=== PATIENT | female | born 1995 | race Caucasian/White ===

== ENCOUNTER 2022-02-16 13:32 | Outpatient (CLI) | payer BC, OTHER, SELFPAY ==
[2022-02-16 15:11] LABS: Albumin* 3.5 g/dL (3.3-5.0)
[2022-02-16 15:14] LABS: Alanine Aminotransferase* 21 U/L (4-35); Alkaline Phosphatase* 95 U/L (40-150); Aspartate Amino Transferase* 18 U/L (12-35); Bilirubin Direct* 0.3 mg/dL (0.0-0.5); Bilirubin Total* 0.3 mg/dL (0.1-1.5)
[2022-02-16 15:25] LABS: Total Protein Urine < 5 mg/dL
[2022-02-16 15:26] LABS: Creatinine Urine 203.8 mg/dL
== END 2022-02-16 13:33 | disposition home or self-care (01) ==
LOC: NFLDREF 13:33
PROVIDERS: Visit Provider Physician Assistant
DX: Z34.90 Encounter for supervision of normal pregnancy, unspecified, unspecified trimester (principal); Z87.59 Personal history of other complications of pregnancy, childbirth and the puerperium
CPT/HCPCS: 80076; 84156

== ENCOUNTER 2022-03-08 10:43 | Outpatient (CLI) | payer BC, OTHER, SELFPAY ==
[2022-03-10 11:01] LABS: Dating Ultrasound; Family Hx Neural Tube Defect No; Gestati Age Calc at Collection 16 wks, 3 days; Insulin Req Maternal Diabetes No; Maternal Age At Delivery 27.6 yr; Maternal Race Nonblack; Maternal Screen Interpretation Screen Neg; MoM for AFP 1.44; Number of Fetuses Singleton; Patient's AFP 36 ng/mL; Patient's DIA 102 pg/mL; Smoking No
== END 2022-03-08 10:44 | disposition home or self-care (01) ==
LOC: NFLDREF 10:44
PROVIDERS: Visit Provider Obstetrics & Gynecology
DX: Z34.92 Encounter for supervision of normal pregnancy, unspecified, second trimester (principal); Z3A.16 16 weeks gestation of pregnancy
CPT/HCPCS: 81511

== ENCOUNTER 2022-04-07 13:10 | Outpatient (CLI) | payer BC, OTHER, SELFPAY ==
--- OUTSIDE RECORDS SUMMARY | 2022-04-07 13:13 | XMS_ITS | Encounter Summary ---
:1995 Author Organization [facility] Address [address] [place] [id number] Care Team Providers Name Role Phone Ary Purcell P.A.-C., P.A. Primary Care Provider Unavaila ble Reason for Visit Reason Comments Post Ed Visit Follow-up ED visit last night. Still h aving troubles breathing. Outpatient (Routine) - Closed Specialty Diagnoses / Procedures Referred By Contact Refer red To Contact Emergency Medicine Diagnoses Asthma Extrinsic With Acute Exacerbation (HCC) [facility] [address] [place] [phone] Referral ID Status Reason Start Date Expiration Date Visits Requ ested Visits Authorized [id number] Closed 09/08/2020 09/08/2021 1 1 Encounter Details Date Type Department Care Team Description 09/09/2020 Office Visit Department of Family Ary Purcell Ast hma Extrinsic With Acute Exacerbation (HCC) (Primary Dx); [facility], Chunk[facility] [address] [phone] Social History Tobacco Use Types Packs/Day Years Used Date Smoking Tobacco: Former Cigarettes 0.8 7 Quit : 01/31/2018 Smokeless Tobacco: Never Alcohol Use Standard Drinks/Week Comments Yes 2 (1 standard drink = 0.6 oz pure alcoho l) Alcohol Habits Answer Date Recorded How often do you have a drink containing alcohol? 2-4 times a month 10/23/2020 How many drinks containing alcohol do you have on a 3 or 4 10/23/2020 typical day when you are drinking? How often do you have six or more drinks on one Less than mo nthly 03/02/2019 occasion? Comment: Not asked Social Isolation Answer Date Recorded In a typical week, how many times do you talk on Twice a wee k 10/23/2020 the phone with family, friends, or neighbors? How often do you get together with friends or Once a week 10/23/2020 relatives? How often do you attend mormonism or christian Never 10/23/2020 services? Do you belong to any clubs or organizations such as No 12/04/2019 mormonism groups, unions, fraternal or athletic groups, or school groups? How often do you attend meetings of the clubs or Patient ref used 12/04/2019 organizations you belong to? Are you now , , , , Living wi partner 03/02/2019 never or living with a partner? Physical Activity Answer Date Recorded On average, how many days per week do you engage in moderate to 4 days 12/04/2019 strenuous exercise (like walking fast, running, jogging, dancing, swimming, biking, or other activities that cause a light or heavy sweat)? On average, how many minutes do you engage in exercise at is 40 min 12/04/2019 level? Stress Answer Date Recorded Do you feel stress - tense, restless, nervous, or anxious, R ather much 10/23/2020 or unable to sleep at night because your mind is troubled all the time - these days? Financial Resource Strain Answer Date Recorded How hard is it for you to pay for the very basics like Not h eden at all 10/23/2020 food, housing, medical care, and heating? Intimate Partner Violence Answer Date Recorded Within the last year, have you been afraid of your partner o r No 12/04/2019 ex-partner? Within the last year, have you been humiliated or emotionall y No 12/04/2019 abused in other ways by your partner or ex-partner? Within the last year, have you been kicked, hit, slapped, or No 12/04/2019 otherwise physically hurt by your partner or ex-partner? Within the last year, have you been raped or forced to have any No 12/04/2019 kind of sexual activity by your partner or ex-partner? Food Insecurity Answer Date Recorded Within the past 12 months, you worried that your food would Never true 03/02/2019 run out before you got money to buy more. Within the past 12 months, the food you bought just didn't N ever true 03/02/2019 last and you didn't have money to get more. Transportation Needs Answer Date Recorded In the past 12 months, has lack of transportation kept you f rom No 03/02/2019 medical appointments or from getting medications? In the past 12 months, has lack of transportation kept you f rom No 03/02/2019 meetings, work, or getting things needed for daily living? Education Answer Date Recorded What is the highest level of school Associate degree: [employer], 03/01/2019 you have completed or the highest technical, or vocational p chitra degree you have received? 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 documented as of this encounter Last Filed Vital Signs Vital Sign Reading Time Taken Comments Blood Pressure 132/81 09/09/2020 10:01 AM MILLING PLANER OPERATOR Pulse 98 09/09/2020 10:01 AM MILLING PLANER OPERATOR Temperature 36.6 ??C (97.9 ??F) 09/09/2020 10:01 AM MILLING PLANER OPERATOR Respiratory Rate 28 09/09/2020 10:01 AM MILLING PLANER OPERATOR Oxygen Saturation 93% 09/09/2020 10:01 AM MILLING PLANER OPERATOR Inhaled Oxygen Concentration - - Weight 118 kg (260 lb 12.9 oz) 09/09/2020 10:01 AM MILLING PLANER OPERATOR Height - - Body Mass Index 42.09 02/20/2019 1:57 PM CDT documented in this encounter Progress Notes Ary Purcell, P.A. 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 Still having troubles breathing. ). HISTORY OF PRESENT ILLNESS Carly is a very pleasant 25-year-old female who presents today for post ER follow-up after asthmaexacerbation. She has been struggling with worsening asthma symptoms for the last 4 weeks. We did try a prednisone burst for 5 days and she felt significantly better after this. Unfortunately, last Tuesday her breathing worsened again. She continues with wheezing and shortness of breath. She was seen in the ER yesterday and provided with IV Decadron, albuterol nebulizer and prescribed steroid inhaler.Today, she is feeling slightly better, but she did have a rough evening. She did require use of her albuterol nebulizer overnight. Her O2 saturations at home were between 90-94%. Denies any fever, chills or cough. No chest pain, but does endorse chest tightness. REVIEW OF SYSTEMS A brief review of systems was negative except for that mentioned in the history of present of illness. CURRENT MEDICATIONS Current Outpatient Medications Medication Sig ??? albuterol (ACCUNEB) 2.5 mg /3 mL nebulizer solution Take 3 mL (2.5 mg total) by nebulization every 4 (four) hours as needed for wheezing. ??? albuterol inhaler Inhale 2 puffs every 4 (four) hours as needed for wheezing. ??? escitalopram (Lexapro) 20 mg tablet Take one tablet by mouth daily. ??? fluticasone (for_FLONASE) 50 mcg/actuation nasal spray Administer 2 sprays into affected nostril(s) 2 (two) times a day as needed. ??? levonorgestrel-ethinyl estradiol (Jolessa) 0.15-mg-30 mcg per tablet Take 1 tablet by mouth daily. ??? metroNIDAZOLE (ROSADAN) 0.75 % gel Apply twice daily to perioral dermatitis for 2-3 months. ??? fluticasone propionate (FLOVENT HFA) 220 mcg/actuation inhaler Inhale 2 puffs 2 (two) times a day. Rinse mouth with water after use to reduce aftertaste and incidence of candidiasis. Do not swallow. ??? montelukast (SINGULAIR) 10 mg tablet Take 1 tablet (10 mg total) by mouth at bedtime. ??? predniSONE (DELTASONE) 20 mg tablet Take 2 tablets (40 mg total) by mouth daily. ALLERGIES/CONTRAINDICATIONS Allergies Allergen Reactions ??? Cefixime Other (see comments) Unknown reaction as a child OBJECTIVE PHYSICAL EXAMINATION Vital Signs: BP 132/81 (BP Location: Left arm, Patient Position: Sitting, Cuff Size: Large) Pulse 98 Temp 36.6 ??C (Temporal) Resp (!) 28 Wt 118 kg LMP 09/01/2020 (Exact Date) SpO2 93% No BMI 42.09 kg/m?? Body mass index is 42.09 kg/m??. General: This patient is alert and in no acute distress. HEENT: Pupils are PERRLA, conjunctivae clear without hemorrhages or exudates. Respiratory: Effort is moderately labored, wheezes bilaterally, without crackles. Cardiovascular: S1 and S2 are present, normal rate and rhythm. Extremities: No lower extremity edema. Psych: Behavior, mood, affect, cognition and insight are all appropriate. DIAGNOSTICS Results for orders placed or performed during the hospital encounter of 09/08/20 CBC with Differential, Blood Result Value Ref Range Hemoglobin 13.8 11.6 - 15.0 g/dL Hematocrit 40.5 35.5 - 44.9 % Erythrocytes 4.39 3.92 - 5.13 x10(12)/L MCV 92.3 78.2 - 97.9 fL RBC Distrib Width 12.7 12.2 - 16.1 % Platelet Count 233 157 - 371 x10(9)/L Leukocytes 9.2 3.4 - 9.6 x10(9)/L Neutrophils 6.26 1.56 - 6.45 x10(9)/L Lymphocytes 2.03 0.95 - 3.07 x10(9)/L Monocytes 0.48 0.26 - 0.81 x10(9)/L Eosinophils 0.36 0.03 - 0.48 x10(9)/L Basophils 0.03 0.01 - 0.08 x10(9)/L Comprehensive Metabolic Panel Result Value Ref Range Potassium, P 3.9 3.6 - 5.2 mmol/L Sodium, P 139 135 - 145 mmol/L Chloride, P 104 98 - 107 mmol/L Bicarbonate, P 23 22 - 29 mmol/L Anion Gap, P 12 7 - 15 BUN, P 12 6 - 21 mg/dL Creatinine, P 0.77 0.59 - 1.04 mg/dL eGFR Black >90 >=60 mL/min/BSA eGFR Non-Black >90 >=60 mL/min/BSA Calcium, Total, P 9.6 8.6 - 10.0 mg/dL Glucose, P 101 70 - 140 mg/dL Protein, Total, P 6.8 6.3 - 7.9 g/dL Albumin, P 4.0 3.5 - 5.0 g/dL Aspartate Aminotransferase (AST), P 34 8 - 43 U/L Alkaline Phosphatase, P 103 35 - 104 U/L Alanine Aminotransferase (ALT), P 63 (H) 7 - 45 U/L Bilirubin, Total, P 0.3 <=1.2 mg/dL ASSESSMENT / PLAN 1. Asthma Extrinsic With Acute Exacerbation (HCC) Sent in a new steroid inhaler prescription, will increase her oral steroid to a 10 day course of 40 mg daily, and also prescribed singular once daily. She did take this as a child which was helpful. Continue with albuterol inhalers and or nebulizers as needed. Follow up in clinic if symptoms are not improving, sooner in the emergency department if symptoms are worsening. She will be monitoring her pulse ox at home as well. - POST ED VISIT Family Medicine 2. Dyspnea Low likelihood of blood clot, but she is on control pills. Will obtain a D-dimer for further risk stratification. Discussed possibly obtaining a CT if this is elevated. - D-Dimer Patient was instructed to follow up in primary care if symptoms are worsening or there is no improvement over the next several days. Plan was discussed with patient and is in agreement with plan. All questions were answered, side effects of any/all new medications were discussed. Patient left in no acute distress. Ready to learn. No apparent learning barriers were identified. Learning preferences include listening. Explained diagnosis and treatment plan. Patient/Child/Caregiver expressed understanding of the content. Total time: 22 minutes Ranjana Alexandra ING PLANER OPERATOR documented in this encounter Plan of Treatment Not on filedocumented as of this encounter Procedures Procedure Name Priority Date/Time Associated Diagnosis Comme nts D-DIMER, P Routine 09/09/2020 10:38 AM Dyspnea Results for this MILLING PLANER OPERATOR procedure are i n the results section . documented in this encounter Results D-Dimer (09/09/2020 10:38 AM MILLING PLANER OPERATOR) P athologist Signature D-Dimer, P <220 <=500 ng/mL 09/09/2020 [facility] FEU 11:18 AM MILLING PLANER OPERATOR Comment: ----ADDITIONAL INFORMATION---- D-dimer values less than or equal to 500 ng/mL fibrinogen equivalent units (FEU) may be used in co njunction with clinical pre-test probability to exclude deep vein thrombosis (DVT) and/or pulmonary emboli sm (PE). Specimen Anatomical Collection Method Collection Time Receive d Time (Source) Location / / Volume Laterality Blood (Blood, 09/09/2020 10:38 09/09/2020 Venous) AM MILLING PLANER OPERATOR 10:44 AM MILLING PLANER OPERATOR Ary Purcell P.A.-C., P.A. LAB BLOOD ADD-ON Performing Organization Address City/State/[facility] Code Phon e Number [id number] [place] [address] [place] [address] System [address] documented in this encounter Visit Diagnoses Diagnosis Asthma Extrinsic With Acute Exacerbation (HCC) - Primary Dyspnea documented in this encounter Additional Health Concerns Assessment Noted Time PHQ-9 Depression Total Score: 10 11/08/2018 12:47 PM C DT documented as of this encounter Care Teams Powerhouse Operator Relationship Specialty Start Date End Date Ary Purcell P.A.-C., P.A. PCP - General 06/07/19 01/14/22 documented as of this encounter
--- OUTSIDE RECORDS SUMMARY | 2022-04-07 13:13 | XMS_ITS | Encounter Summary ---
:1995 Author Organization [facility] Address [address] [place] [id number] Care Team Providers Name Role Phone Ary Purcell P.A.-C., P.A. Primary Care Provider Unavaila ble Reason for Visit Reason Comments Earache feels it more in the left, c ongestion, asthma has been bad, using inhler and nebs daily-with min results- going on for about over a month-asthma and congestion worse in the last couple weeks. Encounter Details Date Type Department Care Team Description 08/21/2020 Office Visit Department of [facility] rAy Purcell, Per gustavo History Of Infectious And Parasitic Disease (COVID-19) (Primary Dx); Medicine, Bitely P.A.-C., P.A. Asth ma Mild Intermittent (HCC); Clinic, in [place] [facility] ([facility]) [address] [phone] Social History Tobacco Use Types Packs/Day Years [...] 10/23/2020 relatives? How often do you attend uatsdin or latter day Never 10/23/2020 services? 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 documented as of this encounter Last Filed Vital Signs Vital Sign Reading Time Taken Comments Blood Pressure 123/83 08/21/2020 11:23 AM EMAIL CAMPAIGN MANAGER Pulse 66 08/21/2020 11:23 AM EMAIL CAMPAIGN MANAGER Temperature 36.3 ??C (97.3 ??F) 08/21/2020 11:23 AM EMAIL CAMPAIGN MANAGER Respiratory Rate 18 08/21/2020 11:23 AM EMAIL CAMPAIGN MANAGER Oxygen Saturation 96% 08/21/2020 11:23 AM EMAIL CAMPAIGN MANAGER Inhaled Oxygen Concentration - - Weight 118 kg (259 lb 4.2 oz) 08/21/2020 11:23 AM EMAIL CAMPAIGN MANAGER Height - - Body Mass Index 41.85 02/20/2019 1:57 PM CDT documented in this encounter Patient Instructions Patient InstructionsAry Purcell, P.A. - 08/21/2020 11:30 AM CST May use OTC antihistamine (Zyrtec or Claritin) or similar for the next few days. May use OTC Flonase twice per day to help with nasal congestion and postnasal drip. Cold/cough remedies also available OTC - DayQuil/NyQuil, Mucinex, Sandra-Paterson Cold/Flu, Robitussin DM, cough/throat lozenges, honey. May use OTC analgesics such as Tylenol/ibuprofen for low grade fevers and body aches. Increase fluid intake. Get plenty of rest. Cover your cough. Wash hands frequently. Prednisone 2 tabs (40mg) daily for 5 days - take with food L CAMPAIGN MANAGER documented in this encounter Progress Notes Ary Purcell P.A. - 08/21/2020 11:30 AM CST SUBJECTIVE CHIEF COMPLAINT/REASON FOR VISIT Carly Bob ZEB Joseph is a 25 y.o. female who presents for evaluation of Earache (feels it more in the left, congestion, asthma has been bad, using inhler and nebs daily-with min results- going on for about over a month-asthma and congestion worse in the last couple weeks. ). HISTORY OF PRESENT ILLNESS Carly is a very pleasant 25-year-old female who presents today for post COVID symptoms. She was diagnosed with COVID on July 30. Since that time, she has been suffering from asthma exacerbation with a dry cough, shortness of breath and wheezing. She is using her albuterol inhaler 2-3 times daily and nebs b.i.d. she also has some left-sided sinus and ear congestion. Denies any ear drainage. No fever, chills, sinus pain or teeth pain. Her sinus drainage has been clear. REVIEW OF SYSTEMS A brief review of [...] Take 1 tablet by mouth daily. ??? LORazepam (ATIVAN) 0.5 mg tablet 1/2 tab po q AM and 1 tab po q PM (Patient taking differently: 0.5 mg 2 (two) times a day as needed. 1/2 tab po q AM and 1 tab po q PM ) ??? metroNIDAZOLE (ROSADAN) 0.75 % gel Apply twice daily to perioral dermatitis for 2-3 months. ??? mupirocin (BACTROBAN) 2 % ointment Apply 1 application topically 3 (three) times a day. ??? predniSONE (DELTASONE) 20 mg tablet Take 2 tablets (40 mg total) by mouth daily. ALLERGIES/CONTRAINDICATIONS Allergies Allergen Reactions ??? Cefixime Other (see comments) Unknown reaction as a child OBJECTIVE PHYSICAL EXAMINATION Vital Signs: BP 123/83 (BP Location: Left arm, Patient Position: Sitting, Cuff Size: Large) Pulse 66 Temp 36.3 ??C (Temporal) Resp 18 Wt 118 kg SpO2 96% BMI 41.85 kg/m?? Body mass index is 41.85 kg/m??. General: This patient is alert and in no acute distress. HEENT: Pupils are PERRLA, conjunctivae clear without hemorrhages or exudates. Auditory canals are normal without erythema or edema, TMs are pearly bruner and intact without erythema. Oral cavity is adequately hydrated, posterior pharynx is normal without erythema or drainage present. Neck: Supple without lymphadenopathy. Respiratory: Effort is easy, lung sounds are clear to auscultation. Mild expiratory wheeze. Cardiovascular: S1 and S2 are present, normal rate and rhythm. Psych: Behavior, mood, affect, cognition and insight are all appropriate. DIAGNOSTICS Results for orders placed or performed in visit on 12/03/19 SARS Coronavirus-2, PCR Specimen: Nasopharynx; Varies Result Value Ref Range SARS Coronavirus-2 Source Swab, Nasopharynx SARS Coronavirus-2, PCR Undetected Undetected ASSESSMENT / PLAN 1. Personal History Of Infectious And Parasitic Disease (COVID-19) Recovering from COVID-19, although suffering from asthma exacerbation. May use OTC antihistamine (Zyrtec or Claritin) or similar for the next few days. May use OTC Flonase twice per day to help with nasal congestion and postnasal drip. Cold/cough remedies also available OTC - DayQuil/NyQuil, Mucinex, Sandra-Paterson Cold/Flu, Robitussin DM, cough/throat lozenges, honey. May use OTC analgesics such as Tylenol/ibuprofen for low grade fevers and body aches. Increase fluid intake. Get plenty of rest. Cover your cough. Wash hands frequently. 2. Asthma Mild Intermittent (HCC) 3. Asthma Exacerbation (HCC) Prescribed prednisone 1st for asthma exacerbation. She can increase her use of albuterol inhalers toevery 4-6 hours as needed. Continue with nebulizers b.i.d.. If she has worsening symptoms, return toclinic for consideration of chest x-ray, but pulmonary exam was otherwise normal today. Patient was instructed to follow up in [...] plan. Patient/Child/Caregiver expressed understanding of the content. Ranjana Alexandra L CAMPAIGN MANAGER documented in this encounter Plan of Treatment Not on filedocumented as of this encounter Visit Diagnoses Diagnosis Personal History Of Infectious And Bashir itic Disease (COVID-19) - Primary Asthma Mild Intermittent (HCC) Asthma Exacerbation (HCC) documented in this encounter Additional Health Concerns Assessment Noted Time PHQ-9 Depression Total Score: 10 11/08/2018 12:47 PM C DT documented as of this encounter Care Teams Golf Club Manager Relationship Specialty Start Date End Date Ary Purcell P.A.-Guillermina, P.A. PCP - General 06/07/19 01/14/22 documented as of this encounter
--- OUTSIDE RECORDS SUMMARY | 2022-04-07 13:13 | XMS_ITS | Encounter Summary ---
:1995 Author Organization [facility] Address [address] [place] [address] Care Team Providers Name Role Phone Ary Purcell P.A.-C., P.A. Primary Care Provider Unavaila ble Reason for Referral Outpatient (Routine) - Closed Specialty Diagnoses / Procedures Referred By Contact Refer red To Contact Emergency Medicine Diagnoses Asthma Extrinsic With Acute Exacerbation (HCC) Robe Payne [facility] MERNA Jang III, M.D. [address] [address] Referral ID Status Reason Start Date Expiration Date Visits Requ ested Visits Authorized [id number] Closed 09/08/2020 09/08/2021 1 1 THCARE LIAISON Reason for Visit Reason Comments Shortness of Breath Pt admits with concerns of c ontinued SOB. pt states she was given prednison on the 1-7 x 5days . Pt states she felt better until afew days ago when SOB retur bryan Encounter Details Date Type Department Care Team Description 09/08/2020 Emergency Hakeem Genao Robe Payne Asthma E xtrinsic With Emergency Department Sherman PUENTE M.D. Acute Exacerbation [id number] (HCC) (Primary Dx) [place] [id number] (Wo rk) Social History Tobacco Use Types Packs/Day Years [...] 10/23/2020 relatives? How often do you attend gnosticist or restoration Never 10/23/2020 services? Do you belong to any clubs or organizations such as No 12/04/2019 gnosticist groups, unions, fraternal or athletic groups, or school groups? How often do you attend meetings of the clubs or Patient ref used 12/04/2019 organizations you belong to? Are you now , , , , Living wi th partner 03/02/2019 never or living with a [...] at Date Recorded Female 08/12/2017 10:51 AM HEALTHCARE LIAISON documented as of this encounter Last Filed Vital Signs Vital Sign Reading Time Taken Comments Blood Pressure 123/66 09/08/2020 6:15 PM HEALTHCARE LIAISON Pulse 89 09/08/2020 6:15 PM HEALTHCARE LIAISON Temperature 35.9 ??C (96.6 ??F) 09/08/2020 4:38 PM HEALTHCARE LIAISON Respiratory Rate 20 09/08/2020 4:38 PM HEALTHCARE LIAISON Oxygen Saturation 99% 09/08/2020 6:15 PM HEALTHCARE LIAISON Inhaled Oxygen Concentration - - Weight 118 kg (260 lb 2.3 oz) 09/08/2020 4:34 PM HEALTHCARE LIAISON Height - - Body Mass Index 41.99 02/20/2019 1:57 PM CDT documented in this encounter Discharge Instructions AttachmentsThe following attachments cannot be sent through Care Everywhere. Asthma Attack (Central African)How to Use a Nebulizer Adult (Central African)Metered Dose Inhaler (No Spacer Used) (Central African)documented in this encounter Medications at Time of Discharge Medication Sig Dispensed Refills Start Date End Date albuterol (ACCUNEB) 2.5 Take 3 mL (2.5 mg 180 mL 1 09/2608/13/2021 mg /3 mL nebulizer total) by solution nebulization every 4 (four) hours as needed for wheezing. albuterol inhaler Inhale 2 puffs every 36 g 3 08/21/19 21 10/24/2020 4 (four) hours as needed for wheezing. escitalopram (Lexapro) Take one tablet by 100 tablet 3 10/3011/25/2020 20 mg mouth daily. tabletIndications: Anxiety Generalized Disorder flunisolide HFA Inhale 2 puffs 2 8.9 g 0 09/08/2020 (AEROSPAN) 80 (two) times a day. mcg/actuation inhaler Rinse mouth with water after use to reduce aftertaste and incidence of candidiasis. Do not swallow. fluticasone Administer 2 sprays 0 07/18/201410/13 (for_FLONASE) 50 into affected mcg/actuation nasal nostril(s) 2 (two) spray times a day as needed. levonorgestrel-ethinyl Take 1 tablet by 91 tablet 4 020 10/24/2020 estradiol (Jolessa) mouth daily. 0.15-mg-30 mcg per tablet LORazepam (ATIVAN) 0.5 /2 tab po q AM and 1 50 tablet 2 09/09/2020 mg tablet tab po q PM metroNIDAZOLE (ROSADAN) Apply twice daily to 45 g 2 10/26/2021 0.75 % gel perioral dermatitis for 2-3 months. mupirocin (BACTROBAN) 2 Apply 1 application 0 09/09/2020 % ointment topically 3 (three) times a day. documented as of this encounter ED Notes Robe Payne III, M.D. - 09/08/2020 6:33 PM CST SUBJECTIVE CHIEF COMPLAINT/REASON FOR VISIT Shortness of Breath (Pt admits with concerns of continued SOB. pt states she was given prednison on the 1-7 x 5days. Pt states she felt better until afew days ago when SOB returned) HISTORY OF PRESENT ILLNESS History provided by: Patient and medical records Shortness of Breath Severity: Moderate Onset quality: Sudden Duration: 3 days Timing: Constant Progression: Waxing and waning Chronicity: Recurrent Context: activity Relieved by: Nothing Worsened by: Activity Ineffective treatments: Lying down, inhaler, position changes, sitting up and rest Associated symptoms: cough and wheezing Associated symptoms: no chest pain, no diaphoresis, no fever, no headaches, no hemoptysis, no neck pain, no PND, no rash, no sore throat, no sputum production, no syncope, no swollen glands and no vomiting Cough: Cough characteristics: Non-productive Severity: Mild Wheezing: Severity: Moderate Duration: 3 days Timing: Constant Progression: Unchanged Chronicity: Recurrent Risk factors: obesity Risk factors comment: Hx of asthma REVIEW OF SYSTEMS Constitutional: Negative for diaphoresis and fever. HENT: Negative for sore throat. Respiratory: Positive for cough, shortness of breath and wheezing. Negative for hemoptysis and sputum production. Cardiovascular: Negative for chest pain, syncope and PND. Gastrointestinal: Negative for vomiting. Musculoskeletal: Negative for neck pain. Skin: Negative for rash. Neurological: Negative for headaches. OBJECTIVE Initial Vitals Temperature Pulse Rate Heart Rate Resp Rate Blood Pressure SpO2 09/08/20 1638 09/08/20 1715 -- 09/08/20 1638 09/08/20 1638 09/08/20 1638 (!) 35.9 ??C 91 20 132/86 96 % Pain Score 09/08/20 1830 0 - No pain PHYSICAL EXAMINATION Constitutional: Nursing note and vitals reviewed. HENT: Head: Normocephalic and atraumatic. Right Ear: Tympanic membrane normal. Left Ear: Tympanic membrane normal. Mouth/Throat: Oropharynx is clear and moist. Mucous membranes are moist. Eyes: Conjunctivae are normal. Pupils are equal, round, and reactive to light. Neck: Normal range of motion. Neck supple. Cardiovascular: Normal rate, regular rhythm, S1 normal, S2 normal and normal heart sounds. Pulses are strong and palpable. Capillary refill: takes less than 3 seconds, Pulmonary/Chest: No respiratory distress. She has wheezes. She exhibits retraction. Abdominal: Soft. Bowel sounds are normal. Neurological: She is alert and oriented to person, place, and time. Skin: Skin is warm, dry and normal color. Psychiatric: She has a normal mood and affect. ASSESSMENT/PLAN IMPRESSION AND PLAN The patient has been found to have probable asthma exacerbation. She had moderate improvement of hersymptoms with a combination of a single DuoNeb an 80 follow-up albuterol nebulizer treatment. Patient has been on steroids recently. She has not been trialed on inhaled steroids in the past. We have sent a new script to her pharmacy. Reasons return to the emergency department discussed in detail. We reviewed the asthma action plan. Her questions were answered and reassurance was given. DIFFERENTIAL DIAGNOSIS Life threatening differential diagnoses considered include: COPD exacerbation, pulmonary edema, acute coronary syndromes, pulmonary embolism, pneumonia, and pneumothorax. Other differential diagnoses considerations include asthma, bronchitis, as well as other etiologies. I reviewed previous medical records including lab results, radiology images/report and documentationfrom previous visits. I personally reviewed the lab result(s) and my interpretation is normal. I reviewed the radiology report(s) and personally reviewed the radiology image(s). The Radiology exam interpretation(s) is/are normal. Final Diagnoses: as of Sep 08 1832 Asthma Extrinsic With Acute Exacerbation (HCC) Robe Payne III, M.D. 09/08/201843 THCARE LIAISON documented in this encounter Plan of Treatment Scheduled Referrals Name Type Priority Associated Diagnoses Order S chedule POST ED VISIT Outpatient Referral Routine Asthma Extrinsic Wit h Expected: Family Medicine Acute Exacerbation 2020 (HCC) (Approximate), Expires: 09/08/2023 documented as of this encounter Procedures Procedure Name Priority Date/Time Associated Comments Diagnosis CBC WITH STAT 09/08/2020 5:03 Results for DIFFERENTIAL, B PM HEALTHCARE LIAISON this procedu re are in the results section. COMPREHENSIVE STAT 09/08/2020 5:03 Results for METABOLIC PANEL, S/P PM HEALTHCARE LIAISON this pr ocedure are in the results section. DX CHEST AP OR PA RAD - Semiurgent 09/08/2020 4:57 Res ults for AND LATERAL 2 VIEWS (Fast; most ED PM HEALTHCARE LIAISON this p rocedure patients; some are in the inpatients) results section. documented in this encounter Results (ABNORMAL) Comprehensive Metabolic Panel (09/08/2020 5:03 PM HEALTHCARE LIAISON) P athologist Signature Potassium, P 3.9 3.6 - 5.2 09/08/2020 [facility] mmol/L 5:43 PM HEALTHCARE LIAISON Sodium, P 139 135 - 145 09/08/2020 [facility] mmol/L 5:43 PM HEALTHCARE LIAISON Chloride, P 104 98 - 107 09/08/2020 [facility] mmol/L 5:43 PM HEALTHCARE LIAISON Bicarbonate, P 23 22 - 29 09/08/2020 [facility] mmol/L 5:43 PM HEALTHCARE LIAISON Anion Gap, P 12 7 - 15 09/08/2020 [facility] 5:43 PM HEALTHCARE LIAISON BUN (Blood Urea 12 6 - 21 09/08/2020 [facility] Nitrogen), P mg/dL 5:43 PM HEALTHCARE LIAISON Creatinine 0.77 0.59 - 09/08/2020 [facility] 1.04 mg/dL 5:43 PM HEALTHCARE LIAISON eGFR-Black/Afric >90 >=60 09/08/2020 [facility] an Taiwanese mL/min/BSA 5:43 PM HEALTHCARE LIAISON Comment: ----ADDITIONAL INFORMATION---- Estimated GFR calculated using the 2009 CKD_EPI creatinine equation. eGFR Non-Black/ >90 >=60 mL/min/BSA 09/08/2020 5:43 PM HEALTHCARE LIAISON [facility] Comment: ----ADDITIONAL INFORMATION---- Estimated GFR calculated using the 2009 CKD_EPI creatinine equation. Calcium, Total, P 9.6 8.6 - 10.0 mg/dL 09/08/2020 5:43 PM HEALTHCARE LIAISON [facility] Glucose, P 101 70 - 140 mg/dL 09/08/2020 5:43 PM HEALTHCARE LIAISON C NFL Protein, Total, P 6.8 6.3 - 7.9 g/dL 09/08/2020 5:43 P M HEALTHCARE LIAISON [facility] Albumin, P 4.0 3.5 - 5.0 g/dL 09/08/2020 5:43 PM HEALTHCARE LIAISON C NFL Aspartate Aminotransferase 34 8 - 43 U/L 09/08/2020 5 :43 PM HEALTHCARE LIAISON [facility] (AST), P Alkaline Phosphatase, P 103 35 - 104 U/L 09/08/2020 5: 43 PM HEALTHCARE LIAISON [facility] Alanine Aminotransferase 63 (H) 7 - 45 U/L 09/08/2020 5:4 3 PM HEALTHCARE LIAISON [facility] (ALT), P Bilirubin, Total, P 0.3 <=1.2 mg/dL 09/08/2020 5:43 PM HEALTHCARE LIAISON [facility] Specimen Anatomical Collection Method Collection Time Receive d Time (Source) Location / / Volume Laterality Blood (Blood, 09/08/2020 5:03 PM 09/08/19 5:05 Venous) HEALTHCARE LIAISON PM HEALTHCARE LIAISON Robe Payne III, M.D. LAB BLOOD ADD-ON Performing Organization Address City/State/[facility] Code Phon e Number [facility]- [address] [place] [id number] [place] [address] System in [address] CBC with Differential, Blood (09/08/2020 5:03 PM HEALTHCARE LIAISON) P athologist Signature Hemoglobin 13.8 11.6 - 09/08/2020 [facility] 15.0 g/dL 5:08 PM HEALTHCARE LIAISON Hematocrit 40.5 35.5 - 09/08/2020 [facility] 44.9 % 5:08 PM HEALTHCARE LIAISON Erythrocytes 4.39 3.92 - 09/08/2020 [facility] 5.13 5:08 PM HEALTHCARE LIAISON x10(12)/L MCV 92.3 78.2 - 09/08/2020 [facility] 97.9 fL 5:08 PM HEALTHCARE LIAISON RBC Distrib Width 12.7 12.2 - 09/08/2020 [facility] 16.1 % 5:08 PM HEALTHCARE LIAISON Platelet Count 233 157 - 371 09/08/2020 [facility] x10(9)/L 5:08 PM HEALTHCARE LIAISON Leukocytes 9.2 3.4 - 9.6 09/08/2020 [facility] x10(9)/L 5:08 PM HEALTHCARE LIAISON Neutrophils 6.26 1.56 - 09/08/2020 [facility] 6.45 5:08 PM HEALTHCARE LIAISON x10(9)/L Lymphocytes 2.03 0.95 - 09/08/2020 [facility] 3.07 5:08 PM HEALTHCARE LIAISON x10(9)/L Monocytes 0.48 0.26 - 09/08/2020 [facility] 0.81 5:08 PM HEALTHCARE LIAISON x10(9)/L Eosinophils 0.36 0.03 - 09/08/2020 [facility] 0.48 5:08 PM HEALTHCARE LIAISON x10(9)/L Basophils 0.03 0.01 - 09/08/2020 [facility] 0.08 5:08 PM HEALTHCARE LIAISON x10(9)/L Specimen Anatomical Collection Method Collection Time Receive d Time (Source) Location / / Volume Laterality Blood (Blood, 09/08/2020 5:03 PM 09/08/19 5:05 Venous) HEALTHCARE LIAISON PM HEALTHCARE LIAISON Robe Payne III, M.D. LAB BLOOD ADD-ON Performing Organization Address City/State/ZIP Code Phon e Number [facility]- [address] [place] [id number] [place] [address] System in [address] DX Chest AP or PA and Lateral 2 Views (09/08/2020 4:57 PM HEALTHCARE LIAISON) Anatomical Region Laterality Modality Chest, Thoracic RST LOS, Thoracic ARZ LOS, Thoracic N/A Digital Radiography FLA LOS Specimen (Source) Anatomical Collection Method Collection Time Re ceived Time Location / / Volume Laterality 09/08/2020 4:59 PM HEALTHCARE LIAISON Impressions 09/08/2020 5:00 PM HEALTHCARE LIAISON No focal consolidation or pleural effusion. No pneumothorax. Normal heart size. October 20, 2015 comparison. Narrative 09/08/2020 5:00 PM HEALTHCARE LIAISON EXAM: DX CHEST AP OR PA AND LATERAL 2 VIEWS Procedure Note Marshal Vinson M.D. - 09/08/2020Forma tting of this note might be different from the original. EXAM: DX CHEST AP OR PA AND LATERAL 2 EWS IMPRESSION: No focal consolidation or pleural effusi on. No pneumothorax. Normal heart size. October 20, 2015 comparison. Robe Payne III, M.D. IMG DIAGNOSTIC IMAGING PROCEDURES documented in this encounter Visit Diagnoses Diagnosis Asthma Extrinsic With Acute Exacerbation (HCC) - Primary documented in this encounter Administered Medications Inactive Administered Medications - up to 3 most recent administrations Medication Order MAR Action Action Date Dose Rate Site albuterol nebulizer solution 2.5 Given 09/08/2020 5:57 PM HEALTHCARE LIAISON 2. 5 mg mg (ACCUNEB) 2.5 mg, nebulization, Once, On 09/08/20 at 1750, For 1 dose dexAMETHasone injection 10 mg (DECADRON) Given 09/08/2020 5:57 PM HEALTHCARE LIAISON 10 mg 10 mg, intravenous, Once, On Tue09/08/20 at 1751, For 1 dose ipratropium-albuteroL 0.5-2.5 mg/3 mL nebulizer Given 09/08/2020 5:05 PM HEALTHCARE LIAISON 3 mL solution 3 mL (DUONEB) 3 mL, nebulization, Once, On Tue09/08/20 at 1649, For 1 dose sodium chloride 0.9 % injection 10 mL 10 mL, intravenous, As needed, line care, Starting on Tue09/08/20 at 1647, Peripheral Intravenous Catheter and Rapid Infusion Cat heter, prior to blood sampling, post blood transfusion or post blood samplin g sodium chloride 0.9 % injection 3 mL 3 mL, intravenous, As needed, line care, Starting on Tue09/08/20 at 1647, Prior to and following infusion and between multi ple consecutive infusions: sodium chloride 0.9 % injection sodium chloride 0.9 % injection 3 mL 3 mL, intravenous, Every 12 hours scheduled, First dos e on Tue09/08/20 at 2100, Peripheral Intravenous Catheter and Rapi d Infusion Catheter, when no infusion to maintain patency documented in this encounter Active and Recently Administered Medications Times are shown in HEALTHCARE LIAISON. Scheduled Medication Order 09/06/2020 09/07/2020 09/08/2020 albuterol nebulizer solution 2.5 mg (ACCUNEB) (COMPLETED) 175 (Given - Provider: Chandni Tijerina R.N.) 2.5 mg, nebulization, Once, Tue09/08/20 at 1750, For 1 dose dexAMETHasone injection 10 mg (DECADRON) (COMPLETED) 175 (Given - Provider: Chandni Tijerina R.N.) 10 mg, intravenous, Once, Tue09/08/20 at 1751, For 1 dose ipratropium-albuteroL 0.5-2.5 mg/3 mL ne bulizer solution 3 mL (DUONEB) (COMPLETED) 1705 (Given - Provid er: Chandni Tijerina R.N.) 3 mL, nebulization, Once, Tue09/08/20 at 1649, For 1 dose sodium chloride 0.9 % injection 3 mL 3 mL, intravenous, Every 12 hours schedu led, First dose on Tue09/08/20 at 2100, Peripheral Intravenous Catheter and Rapid Infusion Catheter, when no infusion to maintain patency PRN Medication Order 09/06/2020 09/07/2020 09/08/2020 sodium chloride 0.9 % injection 10 mL 10 mL, intravenous, As needed, line care , Starting 09/08/20 at 1647, Peripheral Intravenous Catheter and Rapid Infusion Catheter, prior to blood sampling, post blood transfusion or post blood sampling sodium chloride 0.9 % injection 3 mL 3 mL, intravenous, As needed, line care, Starting 09/08/20 at 1647, Prior to and following infusion and between multiple consecutive infusions: sodium chloride 0.9 % injection documented in this encounter Additional Health Concerns Assessment Noted Time PHQ-9 Depression Total Score: 11/08/2018 12:47 PM C DT documented as of this encounter Care Teams Associate Professor Of Pathology Relationship Specialty Start Date End Date Ary Purcell P.A.-C., P.A. PCP - General 06/07/19 01/14/22 documented as of this encounter
--- OUTSIDE RECORDS SUMMARY | 2022-04-07 13:13 | XMS_ITS | Encounter Summary ---
:1995 Author Organization [facility] Address [address] [place] [id number] Care Team Providers Name Role Phone Ary Purcell P.A.-C. P.A. Primary Care Provider Ailin diaz Encounter Details Date Type Department Care Team Description 06/04/2020 Orders Only [facility] Pharm[facility] - Mason Ansari, She Yeng Phia [address] [facility] [address] [place], [place] [phone] Social History Tobacco Use Types Packs/Day Years [...] 10/23/2020 relatives? How often do you attend advent or buddhist Never 10/23/2020 services? Do you belong to any clubs or organizations such as No 12/04/2019 advent groups, unions, fraternal or athletic groups, or [...] completed or the highest technical, or vocational margo buenrostro degree you have received? 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 PCP - General 06/07/19 01/14/22 documented as of this encounter
--- OUTSIDE RECORDS SUMMARY | 2022-04-07 13:13 | XMS_ITS | Encounter Summary ---
:1995 Author Organization [facility] Address [address] [place] [address] Care Team Providers Name Role Phone Ary Purcell P.A.-C., P.A. Primary Care Provider Unavaila ble Reason for Referral Outpatient (Routine) - Closed Specialty Diagnoses / Procedures Referred By Contact Refer red To Contact Diagnoses Pain Wrist Left Ary Purcell P.A.-C., [facility] Region Procedures DX Wrist Left 3+ Views P.A. [address] [place] [address] Referral ID Status Reason Start Date Expiration Date Visits Requ ested Visits Authorized [id number] Closed 10/26/2021 10/26/2022 1 1 Reason for Visit Outpatient (Routine) - Closed Specialty Diagnoses / Procedures Referred By Contact Refer red To Contact Diagnoses Pain Wrist Left Ary Purcell P.A.-C., [facility] Region Procedures DX Wrist Left 3+ Views P.A. [address] [place] [address] Referral ID Status Reason Start Date Expiration Date Visits Requ ested Visits Authorized [id number] Closed 10/26/2021 10/26/2022 1 1 Encounter Details Date Type Department Care Team Description 10/26/2021 Hospital Encounter Department of Radiology Sigifredo Purcell, [place]. [address] [phone] Social History Tobacco Use Types Packs/Day Years [...] How often do you attend gnosticist or christian Never 10/23/2020 services? 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 fluocinonide (LIDEX) Apply 1 application 60 g 0 2021 0.05 % ointment topically 2 (two) times a day as needed for irritation or rash. Avoid face and groin. fluticasone propionate Inhale 2 puffs 2 (two) 36 g 3 1 (FLOVENT HFA) 220 times a day. Rinse mcg/actuation inhaler mouth with water after use to reduce aftertaste and incidence of candidiasis. Do not swallow. montelukast (SINGULAIR) Take 1 tablet (10 mg 90 tablet 3 10 mg tablet total) by mouth at bedtime. triamcinolone (KENALOG) Apply to affected area 80 g 2 08/13/2021 0.1 % cream 1-2 times daily as needed. Avoid face and groin. albuterol 90 Inhale 2 puffs every 4 36 g 3 08/13/2021 12/09/2021 mcg/actuation inhaler (four) hours as needed for wheezing. busPIRone (BUSPAR) 5 mg Take 1 tablet (5 mg 90 tablet 2 11/10/2021 tablet total) by mouth 3 (three) times a day. escitalopram (Lexapro) Take one tablet by 90 tablet 3 12/2501/07/2022 20 mg mouth daily. tabletIndications: Anxiety Generalized Disorder documented as of this encounter Plan of Treatment Not on filedocumented as of this encounter Procedures Procedure Name Priority Date/Time Associated Comments Diagnosis DX WRIST LEFT 3+ RAD - Routine 10/26/2021 5:51 Pain Wrist Left Resu lts for this VIEWS (most inpatients PM CDT procedure a re in and all the results outpatients) section. documented in this encounter Results DX Wrist Left 3+ Views (10/26/2021 5:51 PM CDT) Anatomical Region Laterality Modality Upper Extremity, Wrist, Musculoskeletal RST LOS, Left Digital Radiography Musculoskeletal ARZ LOS, Muskuloskeletal FLA LOS Specimen (Source) Anatomical Collection Method Collection Time Re ceived Time Location / / Volume Laterality 10/27/2021 9:06 AM CDT Impressions 10/27/2021 9:06 AM CDT No erosive or reactive bony changes. No acute appreciable fracture or traumatic malalignment. No significant degenerativ e change. Nonspecific tiny intraosseous cyst within the capitate. No soft tissue swelling. No ra diodense foreign body. Narrative 10/27/2021 9:06 AM CDT EXAM: DX WRIST LEFT 3+ VIEWS COMPARISON: None Procedure Note John Lester M.D. - 10/27/2021Formattin g of this note might be different from the original. EXAM: DX WRIST LEFT 3+ VIEWS COMPARISON: None IMPRESSION: No erosive or reactive bony changes. No acute appreciable fracture or traumatic malalignment. No significant degenerativ e change. Nonspecific tiny intraosseous cyst within the capitate. No soft tissue swelling. No ra diodense foreign body. Ary Purcell P.A.-C., P.A. IMG DIAGNOSTIC IMAGING MO OCEDURES documented in this encounter Visit Diagnoses Diagnosis Pain Wrist Left documented in this encounter Additional Health Concerns Assessment Noted Time PHQ-9 Depression Total Score: 1 09/01/2021 12:11 PM CS T documented as of this encounter Care Teams Bundle Clerk Relationship Specialty Start Date End Date Ary Purcell P.A.-C., P.A. PCP - General 06/07/19 01/14/22 documented as of this encounter
--- OUTSIDE RECORDS SUMMARY | 2022-04-07 13:13 | XMS_ITS | Encounter Summary ---
:1995 Author Organization [facility] Address [address] [place] [address] Care Team Providers Name Role Phone Teresita Barkley M.D. Primary Care Provider Reason for Visit Reason Comments Med Refill Encounter Details Date Type Department Care Team Description 03/16/2022 Refill Department of Family Medicine, Teresita Galarza M.D. Med Refill [facility], in [place] [address] [address] [place], [place] [phone] Social History Tobacco Use Types Packs/Day Years [...] 10/23/2020 relatives? How often do you attend temple or christianity Never 10/23/2020 services? 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 - 03/16/2022 3:24 PM CDT Prescription approved. documented in this encounter Plan of Treatment Not on filedocumented as of this encounter Visit Diagnoses Not on filedocumented in this encounter Additional Health Concerns Assessment Noted Time PHQ-9 Depression Total Score: 1 01/07/2022 9:14 AM CDT documented as of this encounter Care Teams Oyster Fisherman Relationship Specialty Start Date End Date Teresita Barkley M.D. PCP - General 01/15/[id number] [place] [phone] documented as of this encounter
--- OUTSIDE RECORDS SUMMARY | 2022-04-07 13:13 | XMS_ITS | Encounter Summary ---
:1995 Author Organization [facility] Address [address] [place] [address] Care Team Providers Name Role Phone Ary Purcell P.A.-C., P.A. Primary Care Provider Unavaila ble Reason for Visit Reason Comments COVID Inquiry Encounter Details Date Type Department Care Team Description 05/28/2020 Clinical Communication Department of V[facility] Salazar Inquiry Medicine, [place] [facility], [facility], in [address] [phone] Social History Tobacco Use Types Packs/Day Years [...] 10/23/2020 relatives? How often do you attend jewish or religion Never 10/23/2020 services? Do you belong to any clubs or organizations such as No 12/04/2019 jewish groups, unions, fraternal or athletic groups, or [...] or the highest technical, or vocational p rohitram degree you have received? 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 Is the patient requesting a COVID test only or other appointments? Other Appointments 2. Have you tested positive for COVID-19 in the last 30 days or do you have a pending COVID-19 test because you had symptoms? no 3. In the last 14 days have you had close contact with a lab confirmed positive case of COVID-19 (close contact is defined as a household case of COVID or being within 6 feet of a COVID-19 patient for more than 5 minutes or having direct contact with infectious secretions, e.g., being coughed on)? no 4. In the past 14 days, are any of the following symptoms new to you and not related to an existing health condition? a. Fever greater than or equal to 37.8 C (100.0 F)? no b. New symptoms (Specifically: headache, cough, shortness of breath, respiratory distress, sore throat, diarrhea, nausea, vomiting, chills and repeated shaking with chills, myalgia's (muscle aches), loss of smell, or change or loss of taste sensation)? no 5. Are you having NEW trouble breathing, worsening breathing, or feeling as though you're going to collapse when you stand or sit up? no 6. Have you tested positive for COVID in the last 90 days? no documented in this encounter Plan of Treatment Not on filedocumented as of this encounter Visit Diagnoses Not on filedocumented in this encounter Additional Health Concerns Assessment Noted Time PHQ-9 Depression Total Score: 10 11/08/2018 12:47 PM C DT documented as of this encounter Care Teams Monotype Setter Relationship Specialty Start Date End Date Ary Purcell P.A.-C., P.A. PCP - General 06/07/19 01/14/22 documented as of this encounter
--- OUTSIDE RECORDS SUMMARY | 2022-04-07 13:13 | XMS_ITS | Encounter Summary ---
:[address] [facility] Address [address] [place] [address] Care Team Providers Name Role Phone Ary Purcell P.A.-C., P.A. Primary Care Provider Unavaila ble Reason for Visit Reason Comments COVID Inquiry Encounter Details Date Type Department Care Team Description 09/09/2020 Clinical Communication Department of [facility] Vani Purcell Inquiry Medicine, [place] [facility], Clinic, in [address] [phone] Social History Tobacco Use Types [...] 10/23/2020 relatives? How often do you attend amish or christian Never 10/23/2020 services? 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 documented as of this encounter Miscellaneous Notes Telephone Encounter - Mayra Zavaleta - 09/09/2020 7:14 AM CST What is the purpose of the call?: Standard Appointment Process Standard Appointment Process Have you tested positive for COVID-19 in the last 20 days OR do you have a pending COVID-19 test because you had symptoms?: No, neither apply What region is the appointment being requested?: Less than 20 days [facility], [facility] or [facility] In the past 14 days are any of the following symptoms new to you and not related to an existing health condition?: No symptoms noted In the past 14 days have you had close contact* with a person who has a LABORATORY CONFIRMED case ofCOVID-19?: No exposure noted, follow appt process (End Screening) Testing Recommendation Endpoint Is testing recommended? : Not recommended to test Plan: Endpoint recommendation: Followed regional [facility] *Reminder if sending patient for testing in [facility] or [facility], route encounter to the correct testing pool. RPRISE ARCHITECT documented in this encounter Plan of Treatment Not on filedocumented as of this encounter Visit Diagnoses Not on filedocumented in this encounter Additional Health Concerns Assessment Noted Time PHQ-9 Depression Total Score: 10 11/08/2018 12:47 PM C DT documented as of this encounter Care Teams Art Glass Designer Relationship Specialty Start Date End Date Ary Purcell P.A.-C., P.A. PCP - General 06/07/19 01/14/22 documented as of this encounter
--- OUTSIDE RECORDS SUMMARY | 2022-04-07 13:13 | XMS_ITS | Encounter Summary ---
:1995 Author Organization [facility] Address [address] [place] [address] Care Team Providers Name Role Phone Ary Purcell P.A.-C., P.A. Primary Care Provider Unavaila ble Reason for Visit Reason Comments Med Refill Encounter Details Date Type Department Care Team Description 03/19/2020 Refill Department of Obstetrics and [facility], [facility] ndanabela, CIRCUIT BREAKER MECHANIC, Med Refill Gynecology in [facility] ELOY, M.S .N., B.S.N., R.N. [id number] [place] [phone] Social History Tobacco Use Types Packs/Day Years [...] 10/23/2020 relatives? How often do you attend orthodoxy or roman catholic Never 10/23/2020 services? 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 PCP - General 06/07/19 01/14/22 documented as of this encounter
--- OUTSIDE RECORDS SUMMARY | 2022-04-07 13:13 | XMS_ITS | Encounter Summary ---
:1995 Author Organization [facility] Address [address] [place] [address] Care Team Providers Name Role Phone Ary Purcell P.A.-C., P.A. Primary Care Provider Unavaila ble Reason for Visit Reason Comments COVID Nurse Line Encounter Details Date Type Department Care Team Description 08/20/2021 Clinical Communication Division of Rossy Almonte Nurse Line [facility] Internal Medicine, [facility], in [place], [place] [address] [place] [address] Social History Tobacco Use Types Packs/Day Years [...] 10/23/2020 relatives? How often do you attend restorationism or episcopal Never 10/23/2020 services? 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 documented as of this encounter Miscellaneous Notes Telephone Encounter - Diamond Hensley - 08/20/2021 3:45 PM POWER HOUSE CONTROL ROOM OPERATOR Scheduled for 08/20 R HOUSE CONTROL ROOM OPERATOR Telephone Encounter - Rossy Almonte - 08/20/2021 8:58 AM CST COVID-19 Nurse Line Screening ASSESSMENT Initial Screening Pathway Select appropriate pathway: : Adult In the last 48 hours, have you had a fever* OR symptoms that are unrelated to a preexisting illness?: New cough,New diarrhea,New sore throat (Nasal congestion) COVID Symptomatic Screening Do you have any of the following urgent symptoms?: No urgent symptoms noted (Continue Screening) Have you received a COVID-19 vaccine in the last 72 hours? : No vaccine received (Continue Screening) Have you had close contact* with a person who has a LABORATORY CONFIRMED case of COVID-19 in the past 14 days?: Yes- quarantine required, provide instructions (Continue Screening) Have you tested positive for COVID-19 in the last 45 days?: No. COVID-19 testing is indicated (Continue Screening for Additional Testing) Additional Screening for Influenza, RSV and Strep Select appropriate region: : [place] Do you have any of the following respiratory syntonical virus (RSV) complications? : No complications noted (Continue Screening) Do you have any of the following high risk influenza criteria?: Chronic pulmonary disease including asthma or COPD,Body Mass Index (BMI) 40 or greater or unsure* Based on your last response, you are considered high risk for Influenza complications and may benefit taking a medication called Tamiflu?? (Oseltamivir). Are you interested in pursuing a prescription for Tamiflu?? (Oseltamivir)?: Yes and patient is an established [facility] patient*. When screening complete, run the Influenza Management protocol. (Continue Screening) Are all of the following Strep criteria met? : No, all criteria are not met. Influenza testing is indicated. (End Screening) Symptom Onset Date of symptom onset: 08/19/21 Testing Recommendation Endpoint Is testing recommended? : Recommended to test Further Triage Needs Any further triage needs? : No further concerns noted. PLAN Endpoint recommendation: Symptomatic testing indicated, advised to be swabbed for COVID-19 and Influenza, sent to [facility] located at [address]. An appointment is required fortesting, please call [phone] Tuesday-Tuesday 7am to 6pm and Tuesday & Tuesday 9am to 4pm to schedule an appointment. Testing hours are 8am - 4:30pm daily. You can also schedule via your Patient Online Services account., Please avoid using public transportation per CDC recommendation. If you do not have personal transportation please self- quarantine until a personal transportation option is available. Standard Care Points -Get a COVID -19 vaccine as soon as you can if not fully vaccinated. -Wash hands frequently with soap and water, use hand director of rehabilitation if soap and water aren't available. -Wear a mask over your nose and mouth to help protect yourself and others if not fully vaccinated and having no symptoms -Stay 6 feet between yourself and others who don't live with you. -Avoid crowds and poorly ventilated indoor spaces. -Seek emergent care if any of the following occur Trouble breathing Bluish lips or face Persistent pain or pressure in the chest New confusion or inability to rouse. -Notify your regular care provider of any new or worsening symptoms. Symptomatic Carepoints: Stay home and separate yourself from others and stay in a specific sick room if able. Avoid sharing personal or household items. Rest. Hydrate. Take Acetaminophen/Ibuprofen asneeded to control fever and muscles aches. Use over the counter medications as needed for other symptoms. If you have received a negative COVID-19 test result and continue to have new or worsening symptoms after 72 hours please call the COVID Nurse Line to assess if you need repeat testing or reach out to your Primary Care Provider for guidance. If you received a prescription for Oseltamivir (Tamiflu) and your influenza test result comes back negative, stop taking Tamiflu. If you received a prescription for Oseltamivir (Tamiflu) and your influenza test result comes back positive, continue taking Tamiflu as prescribed. People with influenza, particularly children, may be at increased risk of self-injury and confusion after taking Oseltamivir (Tamiflu) and should be closely monitored for signs of unusual behavior. If taking Warfarin, contact anticoagulation clinic to assist with management due to increased risk for bleeding. Exposure Carepoints: If you are not fully vaccinated, quarantine for 14 days from your last known exposure to someone with a laboratory confirmed case of COVID-19 regardlessof a negative test result unless otherwise directed. If you are fully vaccinated (last dose was greater than 14 days) quarantine is not needed if you remain without symptoms. If you remain asymptomaticit is recommended to be tested 3-5 days after the exposure as this will produce a more accurate result, unless otherwise directed. Testing is recommended if you become symptomatic at any point. Education: Patient/caregiver able to teach back Patient agreeable to plan of care: Yes The following references were used: [facility] novel coronavirus (COVID- 19) resources R HOUSE CONTROL ROOM OPERATOR documented in this encounter Plan of Treatment Not on filedocumented as of this encounter Visit Diagnoses Not on filedocumented in this encounter Additional Health Concerns Infection Onset Date Last Indicated Resolved Time COVID19 Pending 08/20/2021 08/20/2021 08/21/2021 4:30 AM POWER HOUSE CONTROL ROOM OPERATOR Assessment Noted Time PHQ-9 Depression Total Score: 11 08/13/2021 8:00 AM CS T documented as of this encounter Care Teams Dolphin Trainer Relationship Specialty Start Date End Date Ary Purcell P.A.-C., P.A. PCP - General 06/07/19 01/14/22 documented as of this encounter
--- OUTSIDE RECORDS SUMMARY | 2022-04-07 13:13 | XMS_ITS | Encounter Summary ---
:1995 Author Organization [facility] Address [address] [place] [address] Care Team Providers Name Role Phone Ary Purcell P.A.-C., P.A. Primary Care Provider Ailin diaz Encounter Details Date Type Department Care Team Description 10/30/2020 Orders Only [facility] PCP [facility] Sa elke Alonso M.D. [address] [place], [place] [phone] (Wo rk) Social History Tobacco Use Types [...] 10/23/2020 relatives? How often do you attend moravian or voodoo Never 10/23/2020 services? 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 PCP - General 06/07/19 01/14/22 documented as of this encounter
--- OUTSIDE RECORDS SUMMARY | 2022-04-07 13:13 | XMS_ITS | Encounter Summary ---
:1995 Author Organization [facility] Address [address] [place] [address] Care Team Providers Name Role Phone Ary Purcell P.A.-C., P.A. Primary Care Provider Ailin diaz Encounter Details Date Type Department Care Team Description 08/21/2021 Orders Only Department of [facility] Ary Purcell, Medicine, [facility] Clinic, in [address] [phone] Social History Tobacco Use Types Packs/Day Years [...] 10/23/2020 relatives? How often do you attend gnosticism or faith Never 10/23/2020 services? Do you belong to any clubs or organizations such as No 12/04/2019 gnosticism groups, unions, fraternal or athletic groups, or [...] highest level of school Associate degree: [employer] julissa, 03/01/2019 you have completed or the highest technical, or vocational p chitra degree you have received? 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 documented as of this encounter Plan of Treatment Not on filedocumented as of this encounter Visit Diagnoses Not on filedocumented in this encounter Additional Health Concerns Infection Onset Date Last Indicated Resolved Time COVID19 Pending 08/20/2021 08/20/2021 08/21/2021 4:30 AM MILITARY LOGISTICS SPECIALIST COVID19 08/20/2021 08/20/2021 09/09/2021 5:24 AM MILITARY LOGISTICS SPECIALIST Assessment Noted Time PHQ-9 Depression Total Score: 11 08/13/2021 8:00 AM CS T documented as of this encounter Care Teams Power And Recovery Supervisor Relationship Specialty Start Date End Date Ary Purcell P.A.-C., P.A. PCP - General 06/07/19 01/14/22 documented as of this encounter
--- OUTSIDE RECORDS SUMMARY | 2022-04-07 13:13 | XMS_ITS | Encounter Summary ---
:1995 Author Organization [facility] Address [address] [place] [address] Care Team Providers Name Role Phone Ary Purcell P.A.-C., P.A. Primary Care Provider Ailin diaz Encounter Details Date Type Department Care Team Description 08/20/2021 Admin Visit Department of [facility] Ary Purcell, Medicine, [facility], [facility]. in [address] [phone] Social History Tobacco Use Types Packs/Day Years [...] 10/23/2020 relatives? How often do you attend jehovah's witness or cheondoism Never 10/23/2020 services? Do you belong to any clubs or organizations such as No 12/04/2019 jehovah's witness groups, unions, fraternal or athletic groups, or [...] the highest level of school Associate degree: brianneanabela costa, 03/01/2019 you have completed or the highest technical, or vocational p chitra degree you have received? 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 PCP - General 06/07/19 01/14/22 documented as of this encounter
--- OUTSIDE RECORDS SUMMARY | 2022-04-07 13:13 | XMS_ITS | Encounter Summary ---
:1995 Author Organization [facility] Address [address] [place] [address] Care Team Providers Name Role Phone Ary Purcell P.A.-C., P.A. Primary Care Provider Unavaila ble Reason for Visit Reason Comments Med Refill Encounter Details Date Type Department Care Team Description 04/24/2021 Refill Department of Family Medicine, Vani Purcell, Med Refill [facility], in [place] Gabriel, P .A. [address] [phone] Social History Tobacco Use [...] 10/23/2020 relatives? How often do you attend yarsanism or anabaptist Never 10/23/2020 services? 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 Historical med list shows the prescription has . Please renew orreject as appropriate. Thank you. Now requested by [facility] Hakeem Genao. documented in this encounter Plan of Treatment Not on filedocumented as of this encounter Visit Diagnoses Not on filedocumented in this encounter Additional Health Concerns Assessment Noted Time PHQ-9 Depression Total Score: 1 04/21/2021 8:46 AM CDT documented as of this encounter Care Teams Chassis Wirer Relationship Specialty Start Date End Date Ary Purcell P.A.-C., P.A. PCP - General 06/07/19 01/14/22 documented as of this encounter
--- OUTSIDE RECORDS SUMMARY | 2022-04-07 13:13 | XMS_ITS | Encounter Summary ---
:1995 Author Organization [facility] Address [address] [place] [id number] Care Team Providers Name Role Phone Ary Purcell P.A.-C., P.A. Primary Care Provider Unavaila ble Reason for Visit Reason Comments Impetigo X 2 months spreading bottom of nose both sides over mouth, itchy, redness, dryness, onitment not workin g Appointment Request (Routine) - Closed Specialty Diagnoses / Procedures Referred By Contact Refer red To Contact Family Medicine Referral ID Status Reason Start Date Expiration Date Visits Requ ested Visits Authorized [id number] Closed 05/28/2020 05/28/2021 1 1 Encounter Details Date Type Department Care Team Description 05/28/2020 Office Visit Department of Family Ary Purcell Der matitis Perioral Medicine, [facility] ([facility], in [address] [phone] Social History Tobacco Use Types Packs/Day Years [...] 10/23/2020 relatives? How often do you attend latter day or judaism Never 10/23/2020 services? 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 - 05/28/2020 11:30 AM CDT Topical hydrocortisone cream twice daily for 7-10 days Put Aquaphor or Eucerin cream on over the hydrocortisone cream and whenever you are wearing a mask documented in this encounter Progress Notes Ary Purcell P.A.-C., P.A. - 05/28/2020 11:30 AM CDT SUBJECTIVE CHIEF COMPLAINT/REASON FOR VISIT Carly Bob ZEB Joseph is a 25 y.o. female who presents for evaluation of Impetigo (X 2 months spreading bottom of nose both sides over mouth, itchy, redness, dryness, onitment not working ). HISTORY OF PRESENT ILLNESS Carly is a very pleasant 25-year-old female who presents today for evaluation of facial rash. She[facility] [place] [facility] [place] [facility] with impetigo a few months ago. She has been using her topical Bactroban which did initially helped but she is having ongoing skin lesions that are pruritic. 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 REVIEW OF SYSTEMS A brief review of [...] (four) hours as needed for wheezing. ??? beclomethasone (QVAR REDIHALER) 40 mcg/actuation inhaler Inhale 1 puff 2 (two) times a day. Rinse mouth with water after use to reduce aftertaste and incidence of candidiasis. Do not swallow. ??? escitalopram (Lexapro) 20 mg tablet Take [...] 1 tab po q PM ) ??? mupirocin (BACTROBAN) 2 % ointment Apply 1 application topically 3 (three) times a day. ALLERGIES/CONTRAINDICATIONS Allergies Allergen Reactions ??? Cefixime Other (see comments) Unknown reaction as a child OBJECTIVE PHYSICAL EXAMINATION Vital Signs: BP 125/81 (BP Location: Left arm, Patient Position: Sitting, Cuff Size: Large) Pulse 73 Temp 36.5 ??C (Temporal) Wt 118 kg LMP 03/19/2020 SpO2 97% BMI 42.06 kg/m?? Body mass index is 42.06 kg/m??. General: This patient is alert and in no acute distress. HEENT: Pupils are PERRLA, conjunctivae clear without hemorrhages or exudates. Skin: Normal color, temperature and moisture. Tiny papules noted on nasolabial folds, no crusting, flaking or erythema noted. Neuro: CN II-XII grossly intact. Psych: Behavior, mood, affect, cognition and insight are all appropriate. DIAGNOSTICS Results for orders placed or performed in visit on 12/03/19 SARS Coronavirus-2, PCR Specimen: Nasopharynx; Varies Result Value Ref Range SARS Coronavirus-2 Source Swab, Nasopharynx SARS Coronavirus-2, PCR Undetected Undetected ASSESSMENT / PLAN 1. Dermatitis Perioral Topical hydrocortisone cream twice daily x 7-10 days. Can then also use a barrier emollient such as Aquaphor or Eucerin while wearing a mask. Patient was instructed to follow up in [...] plan. Patient/Child/Caregiver expressed understanding of the content. Ary Purcell P.A.-C., P.A. documented in this encounter Plan of Treatment Not on filedocumented as of this encounter Visit Diagnoses Diagnosis Dermatitis Perioral - Primary documented in this encounter Additional Health Concerns Assessment Noted Time PHQ-9 Depression Total Score: 10 11/08/2018 12:47 PM C DT documented as of this encounter Care Teams Access Control Officer Relationship Specialty Start Date End Date Ary Purcell P.A.-C., P.A. PCP - General 06/07/19 01/14/22 documented as of this encounter
--- OUTSIDE RECORDS SUMMARY | 2022-04-07 13:13 | XMS_ITS | Encounter Summary ---
:1995 Author Organization [facility] Address [address] [place] [address] Care Team Providers Name Role Phone Ary Purcell P.A.-C., P.A. Primary Care Provider Unavaila ble Reason for Visit Reason Comments Med Refill Encounter Details Date Type Department Care Team Description 12/09/2021 Refill Department of Family Medicine, Vani Purcell, Med Refill [facility], in [place] Gabriel, P .A. [address] [phone] Social History Tobacco Use [...] 10/23/2020 relatives? How often do you attend druze or synagogue Never 10/23/2020 services? Do you belong to any clubs or organizations such as No 12/04/2019 druze groups, unions, fraternal or athletic groups, or [...] highest level of school Associate degree: [employer], 03/01/2019 you have completed or the highest technical, or vocational p chitra degree you have received? 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 PCP - General 06/07/19 01/14/22 documented as of this encounter
--- OUTSIDE RECORDS SUMMARY | 2022-04-07 13:13 | XMS_ITS | Encounter Summary ---
:1995 Author Organization [facility] Address [address] [place] [address] Care Team Providers Name Role Phone Ary Purcell P.A.-C., P.A. Primary Care Provider Unavaila ble Reason for Visit Reason Onset Date Comments Testing For Upper Respiratory Virus Symptoms 08/20/2021 Encounter Details Date Type Department Care Team Description 08/20/2021 External Outreach Department of [facility] Betty Garcia Contact With And (Suspected) Exposure To COVID-19; Medicine, [place] T, PGonzaloA.-C. Infection Upper Respiratory Clinic, in [address] [address] [place], [place] [phone] (Work) [phone] Social History Tobacco Use Types Packs/Day Years [...] 10/23/2020 relatives? How often do you attend mosque or hindu Never 10/23/2020 services? 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 - 08/20/2021 9:35 AM CST Encounter created for symptomatic infectious disease screening with possible COVID, Influenza, RSV, and/or Group A Strep testing. STOR RELATIONS ASSOCIATE documented in this encounter Miscellaneous Notes Result Encounter Note - Lori Gregg R.N. - 08/21/2021 8:04 AM INVESTOR RELATIONS ASSOCIATE Your patient has tested positive for SARS-CoV-2, the virus that causes COVID-19. IMPORTANT: Please update the patient's problem list and medication list to ensure an accurate and timely evaluation for COVID-19 treatments, including various medications and Remote Patient Monitoring (RPM). If eligible for COVID-19 treatments or RPM, your patient will be contacted by a designated team of nurses to coordinate the care. The [facility] ([facility]) sends general guidance about COVID-19 to all patients by letter or portal, except when a patient is hospitalized or resides in a retirement. The [facility] will also call all adult patients at highest risk for severe complications of COVID-19 andall who require an senior engineering associate. Any patient with a MASS score 1 or greater or a COVID-19 score 1 or greater may be at higher risk ofsevere disease. These patients will follow up directly with primary care. The primary care team willdecide if the patient needs a phone call or a follow up portal message to assess symptom severity, provide individualized guidance on symptom monitoring or symptom management, or to reinforce when to se ek care. [facility] encourages patients to follow up with their PCP with questions, worsening symptoms, or for symptom management. For questions, contact the [facility] ([facility]): Pager: [phone] In basket: P RST/[facility] COVID-19 POSITIVE Covid Care e-consult Components of the Monoclonal Antibody Selection Score (MASS) Compromised Immune System/Transplant = 4 points Chronic Kidney Disease on Dialysis = 4 points Age greater than or equal to 55 and chronic pulmonary disease = 3 points Age greater than or equal to 65 = 2 points Age greater than or equal to = 2 points Diabetes = 2 points Age greater than or equal to 55 AND cardiovascular disease = 2 points Age greater than or equal to 55 and hypertension = 1 point NOTE: At the time of testing, patients are instructed to obtain the result by calling the [employer] result line or by checking their online services account. STOR RELATIONS ASSOCIATE documented in this encounter Plan of Treatment Not on filedocumented as of this encounter Procedures Procedure Name Priority Date/Time Associated Diagnosis Comme nts INFLUENZA A/B AND Routine 08/20/2021 11:46 AM Infection Upper Results for this RSV, PCR, VARIES INVESTOR RELATIONS ASSOCIATE Respiratory procedure a re in the results section. SARS CORONAVIRUS-2 Routine 08/20/2021 11:46 AM Contact With An d Results for this RNA, V INVESTOR RELATIONS ASSOCIATE (Suspected) Exposure procedu re are in To COVID-19 the results section. documented in this encounter Results Influenza A/B and RSV, PCR, Varies (08/20/2021 11:46 AM INVESTOR RELATIONS ASSOCIATE) [employer] Method Time Signature Influenza A/B Swab, 08/23/2021 DTL and RSV, Nasopharynx 3:33 PM INVESTOR RELATIONS ASSOCIATE Source Influenza A, Undetected Undetected 08/23/2021 DTL PCR 3:33 PM INVESTOR RELATIONS ASSOCIATE Comment: Influenza A RNA absent. Influenza B, PCR Undetected Undetected 08/23/2021 3:33 PM CS T DTL Comment: Influenza B RNA absent. Respiratory Syncytial Virus, PCR Undetected Undetected 04/2022 3:33 PM INVESTOR RELATIONS ASSOCIATE DTL Comment: RSV RNA absent. ----ADDITIONAL INFORMATION---- This test has been modified from the man ufacturer's instructions. Its performance characteristics were determi bryan by [facility] in a manner consistent with CLIA requirements. This test has not been cleared or approved by the U.S. Food and Drug Administration . Specimen Anatomical Collection Method Collection Time Receive d Time (Source) Location / / Volume Laterality Varies 08/20/2021 11:46 08/20/2021 (Nasopharynx) AM INVESTOR RELATIONS ASSOCIATE 10:09 PM INVESTOR RELATIONS ASSOCIATE Emmanuel Garcia P.A.-C. LAB MICROBIOLOGY - GENERAL O RDERAMANDY Performing Organization Address City/[facility]/ZIP Code Phon e Number [facility] - [address] [place] [phone] [facility] [place] [address] Laboratories-[facility] [address] [facility] (ABNORMAL) SARS Coronavirus-2 RNA, V Symptomatic (08/20/2021 11:46 AM INVESTOR RELATIONS ASSOCIATE) [employer] Method Time Signature SARS-CoV-2 Swab, 08/21/2021 ECLR Specimen Nasopharynx 4:29 AM INVESTOR RELATIONS ASSOCIATE Source SARS CoV-2 Detected (A) Undetected 08/21/2021 ECLR RNA, TMA 4:29 AM INVESTOR RELATIONS ASSOCIATE Comment: SARS-CoV-2 RNA present. ----ADDITIONAL INFORMATION---- This molecular amplification test was pe rformed using the Aptima SARS-CoV-2 assay ([employer] on the [employer] tem under emergency use authorization (EUA) by the U.S. Food and Drug Administ trinity. Fact sheets for this EUA assay can be fo und at the following links: For Healthcare Providers: https://www.fd a.gov/media/603448/download For Patients: https://www.fda.gov/media/ 710386/download Specimen Anatomical Collection Method Collection Time Receive d Time (Source) Location / / Volume Laterality Varies 08/20/2021 11:46 08/20/2021 4:12 (Nasopharynx) AM INVESTOR RELATIONS ASSOCIATE PM INVESTOR RELATIONS ASSOCIATE Emmanuel Garcia P.A.-C. LAB MICROBIOLOGY - GENERAL O RDERAMANDY Performing Organization Address City/State/ZIP Code Phon e Number [facility]- [address] [place], [place] [phone] [facility] [place] [address] System in [address] documented in this encounter Visit Diagnoses Diagnosis Contact With And (Suspected) Exposure To COVID-19 Infection Upper Respiratory documented in this encounter Additional Health Concerns Infection Onset Date Last Indicated Resolved Time COVID19 Pending 08/20/2021 08/20/2021 08/21/2021 4:30 AM INVESTOR RELATIONS ASSOCIATE Assessment Noted Time PHQ-9 Depression Total Score: 11 08/13/2021 8:00 AM CS T documented as of this encounter Care Teams Roof Truss Machine Tender Relationship Specialty Start Date End Date Ary Purcell P.A.-C., P.A. PCP - General 06/07/19 01/14/22 documented as of this encounter
--- OUTSIDE RECORDS SUMMARY | 2022-04-07 13:13 | XMS_ITS | Encounter Summary ---
:1995 Author Organization [facility] Address [address] [place] [address] Care Team Providers Name Role Phone Ary Purcell P.A.-C., P.A. Primary Care Provider Unavaila ble Reason for Referral Outpatient (Routine) - Closed Specialty Diagnoses / Procedures Referred By Contact Refer red To Contact Family Medicine Ary Purcell P.A.-C., [facility] [address] [place] [address] Referral ID Status Reason Start Date Expiration Date Visits Requ ested Visits Authorized [id number] Closed 10/24/2020 10/24/2021 1 1 Scheduling Instructions Physical, come fasting if no labs ordere d R SALES MANAGER Reason for Visit Reason Comments Gynecologic Exam Has a spot on her labia that she noticed 2 days ago. Appointment Request (Routine) - Closed Specialty Diagnoses / Procedures Referred By Contact Refer red To Contact Family Medicine Referral ID Status Reason Start Date Expiration Date Visits Requ ested Visits Authorized [id number] Closed 10/22/2020 10/22/2021 1 1 Encounter Details Date Type Department Care Team Description 10/24/2020 Office Visit Department of Ary Salazar Ast hma Moderate Persistent (HCC) (Primary Dx); [facility] [place] Pap Smear Examination; Clinic, in [place] Depression Major One Episode Full Remission (HCC); [place], [place] Anxiety; [id number] Body Mass Index 40.0 To 44.9 Adult ([facility] [id number] Social History Tobacco Use Types Packs/Day [...] 10/23/2020 relatives? How often do you attend faith or religion Never 10/23/2020 services? Do you belong to any clubs or organizations such as No 12/04/2019 faith groups, unions, fraternal or athletic groups, or [...] highest level of school Associate degree: [employer], 03/01/2019 you have completed or the highest technical, or vocational p rohitram degree you have received? 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 documented as of this encounter Last Filed Vital Signs Vital Sign Reading Time Taken Comments Blood Pressure 127/70 10/24/2020 8:34 AM PAPER SALES MANAGER Pulse 82 10/24/2020 8:34 AM PAPER SALES MANAGER Temperature 36.8 ??C (98.2 ??F) 10/24/2020 8:34 AM PAPER SALES MANAGER Respiratory Rate 18 10/24/2020 8:34 AM PAPER SALES MANAGER Oxygen Saturation 99% 10/24/2020 8:34 AM PAPER SALES MANAGER Inhaled Oxygen Concentration - - Weight 119 kg (261 lb 11 oz) 10/24/2020 8:34 AM PAPER SALES MANAGER Height 167.5 cm (5' 5.95) 10/24/2020 8:34 AM PAPER SALES MANAGER Body Mass Index 42.31 10/24/2020 8:34 AM PAPER SALES MANAGER documented in this encounter Patient Instructions Patient InstructionsAry Purcell P.A. - 10/24/2020 8:30 AM CST Continue current medications Pap results in 7-10 days R SALES MANAGER documented in this encounter H&P Notes Ary Purcell P.A. - 10/24/2020 8:30 AM CST SUBJECTIVE CHIEF COMPLAINT/REASON FOR VISIT Carly is a 25 y.o. female who presents to the clinic today for annual physical and pap. HISTORY OF PRESENT ILLNESS Carly is a 25 y.o. female who presents to the clinic today for annual physical and pap. She statesbeau is in her usual state of health. She did recently travel to [place] last week. She was in her swimming suit most of the week. She now notes a small sore on her left labia minora. She would like this looked at today during her Pap. She does tell me that she recently discontinued her control medication back in September. Her most recent menses was on October 02. She is getting in April and they have plans to try to become soon after this. MEDICAL HISTORY Patient Active Problem List Diagnosis ??? Asthma Moderate Persistent (HCC) ??? Obesity Body Mass Index 30-39.9 Adult ??? Depression Major One Episode Full Remission (HCC) SURGICAL HISTORY Past Surgical History: Procedure Laterality Date ??? OPEN REDUCTION INTERNAL FIXATION OF ANKLE Left 02/20/2019 Procedure: OPEN REDUCTION INTERNAL FIXATION ANKLE; Surgeon: Bruno Spivey M.D.; Location: [facility] OR ??? TONSILLECTOMY 2000 Partial ??? TONSILLECTOMY AND ADENOIDECTOMY; YOUNGER THAN AGE 12.. 06/28/2000 ??? WISDOM TOOTH EXTRACTION ALLERGIES/CONTRAINDICATIONS Cefixime CURRENT MEDICATIONS Current Outpatient Medications Medication Sig [...] (two) times a day as needed. ??? fluticasone propionate (FLOVENT HFA) 220 mcg/actuation inhaler Inhale 2 puffs 2 (two) times a day. Rinse mouth with water after use to reduce aftertaste and incidence of candidiasis. Do not swallow. ??? metroNIDAZOLE (ROSADAN) 0.75 % gel Apply twice daily to perioral dermatitis for 2-3 months. ??? montelukast (SINGULAIR) 10 mg tablet Take 1 tablet (10 mg total) by mouth at bedtime. ??? hydrOXYzine (ATARAX) 10 mg tablet Take 1 tablet (10 mg total) by mouth 4 (four) times a day as needed for anxiety. FAMILY HISTORY Family Status Relation Name Status ??? GMother paternal (Not Specified) ??? GFather paternal (Not Specified) ??? PGM Kaya (Not Specified) SOCIAL HISTORY Social History Tobacco Use ??? Smoking status: Former Smoker Packs/day: 0.75 Years: 7.00 Pack years: 5.25 Types: Cigarettes Quit date: 01/31/2018 Years since quittin.7 ??? Smokeless tobacco: Never Used Substance Use Topics ??? Alcohol use: Yes Alcohol/week: 2.0 standard drinks Types: 2 Glasses of wine per week Frequency: 2-4 times a month Drinks per session: 3 or 4 Binge frequency: Less than monthly ??? Drug use: No REVIEW OF SYSTEMS General: No acute distress. No fever, chills. HEENT: Denies headaches, no eye pain, no ear pain. No runny nose. No sore throat. No cervical LAD. Neck: Denies neck pain, no thyromegaly. Lungs: Denies cough, SOB. CV: Denies chest pain. Abdomen: Denies abdominal pain, no change in bowel habits. : Denies dysuria. Ext: Denies edema. Psych: Denies change in mood. OBJECTIVE PHYSICAL EXAMINATION Vital Signs: BP 127/70 (BP Location: Left arm, Patient Position: Sitting, Cuff Size: Regular) Pulse 82 Temp 36.8 ??C (Temporal) Resp 18 Ht 167.5 cm Wt 119 kg LMP 10/02/2020 (Within Days) SpO2 99% BMI 42.31 kg/m?? Body mass index is 42.31 kg/m??. General: The patient appears comfortable and in no acute distress. HEENT: Conjunctivae and lids are without erythema or discharge. Pupils are equal, round and reactiveto light. There is no scleral icterus. Extraocular muscles are intact. Skin: There are no abnormal skin rashes, lesions or masses. Skin is dry and warm. Extremities: Gait is normal. Strength is 5/5 in all the major muscle groups in the upper and lower extremities bilaterally. Back range of motion is normal. Neuro: Cranial nerves II through XII are grossly intact and symmetric. Pelvic Exam: The external genitalia are normal in appearance. The cervix and vagina are without lesions or discharge. There is no cervical motion tenderness. The uterus is of normal size and is nontender. The adnexa show no masses or tenderness. Stock Selector declined. Pap obtained today. Left labia minora with small area of folliculitis. Psychiatric: The patient is alert and oriented x 3. The patient's affect is not blunted and mood is appropriate. DIAGNOSTICS RECENT LABS: Results for orders placed or performed in visit on 09/09/20 D-Dimer Result Value Ref Range D-Dimer, P <220 <=500 ng/mL FEU ASSESSMENT / PLAN 1. Asthma Moderate Persistent (HCC) Continue current medications. ACT and AAP updated today. 2. Pap Smear Examination Recommended warm compresses over area of folliculitis on left labia minora. Also recommended starting on a vitamin as she has discontinued her control and is planning on considering in the near future. - ThinPrep Screen HPV Reflex 3. Obesity Body Mass Index 30-39.9 Adult Continue healthy lifestyle including increasing activity, decreasing portion sizes and incorporatingmore fruits and vegetables. 4. Depression Major One Episode Full Remission (HCC) 5. Anxiety Depressive symptoms under good control. Continues with break through anxiety. Atarax prescribed for as needed use. No safety concerns today; good support from family and friends. ASSESSMENT AND PLAN 1. Annual wellness exam today. 2. Discussed routine health maintenance for age. Pneumonia vaccine given today. 3. Follow-up 1 year for annual exam or return to clinic sooner if any problems develop. Plan was discussed with patient and is in agreement with plan. All questions were answered, side effects of any/all new medications were discussed. Patient left in no acute distress. Ready to learn. No apparent learning barriers were identified. Learning preferences include listening. Explained diagnosis and treatment plan. Patient/Child/Caregiver expressed understanding of the content. Total time: 28 minutes Ranjana Alexandra R SALES MANAGER documented in this encounter Plan of Treatment Scheduled Referrals Name Type Priority Associated Diagnoses Order S [facility] Medicine Outpatient Referral Routine Expec jay jay: office visit 10/24/2021 (clinic) (Approximate), Expires: 10/25/2023 documented as of this encounter Procedures Procedure Name Priority Date/Time Associated Diagnosis Comme nts THINPREP SCREEN HPV Routine 10/24/2020 8:44 AM Pap Smear Re sults for this REFLEX PAPER SALES MANAGER Examination procedure are i n the results section. documented in this encounter Results ThinPrep Screen HPV Reflex (10/24/2020 8:44 AM PAPER SALES MANAGER) Component Value Ref Test Analysis Performed Pathologis t Range Method Time At Signature 10/29/2020 ECLR 12:29 PM CDT Report KAT Ulloa(ASCP) 10/29/2020 E CLR electronically I verify that I have examined all relevant slides/ma terials 12:29 PM signed by for the specimen(s) and rendered or confirmed the diagnosis. CDT Gross Description Received specimen 10/29/2020 ECL R in a ThinPrep 12:29 PM vial. CDT Pap Test Source Cervical/Endocervi 10/29/2020 ECLR hernandez 12:29 PM CDT Menstrual LMP 218 10/29/2020 ECLR Status(LMP, PM, 12:29 PM ) CDT Hormone None 10/29/2020 ECLR Therapy/Contracep 12:29 PM tives CDT Interpretation Cervical/Endocervical ??(ThinPrep): 10/29/2020 ECLR Satisfactory for Evaluation 12:29 PM Negative for Intraepithelial Lesion or Malignancy CDT Specimen Anatomical Collection Method Collection Time Receive d Time (Source) Location / / Volume Laterality Varies 10/24/2020 8:44 AM 3:56 (Cervix/Endocerv PAPER SALES MANAGER PM PAPER SALES MANAGER ix) Narrative This result has an attachment that is no t available. Ary Purcell P.A.-C., P.A. LAB PAP PATHDX ORDERABLES Performing Organization Address City/State/ZIP Code Phon e Number [facility] [address] [place] [phone] [facility] [place] [address] System in [address] documented in this encounter Visit Diagnoses Diagnosis Asthma Moderate Persistent (HCC) - Prima ry Pap Smear Examination Depression Major One Episode Full Remiss ion (HCC) Anxiety Body Mass Index 40.0 To 44.9 Adult (HCC) documented in this encounter Additional Health Concerns Assessment Noted Time PHQ-9 Depression Total Score: 4 10/24/2020 8:00 AM PAPER SALES MANAGER documented as of this encounter Care Teams Women'S Swim Coach Relationship Specialty Start Date End Date Ary Purcell P.A.-C., P.A. PCP - General 06/07/19 01/14/22 documented as of this encounter
--- OUTSIDE RECORDS SUMMARY | 2022-04-07 13:13 | XMS_ITS | Encounter Summary ---
:1995 Author Organization [facility] Address [address] [place] [address] Care Team Providers Name Role Phone Ary Purcell P.A.-C., P.A. Primary Care Provider Unavaila ble Reason for Visit Reason Comments Med Refill Encounter Details Date Type Department Care Team Description 12/25/2020 Refill Department of Family Medicine, Vani Purcell, Med Refill [facility], in [place] Gabriel, P .A. [address] [phone] Social History Tobacco Use [...] 10/23/2020 relatives? How often do you attend pentecostalism or presybeterian Never 10/23/2020 services? Do you belong to any clubs or organizations such as No 12/04/2019 pentecostalism groups, unions, fraternal or athletic groups, or [...] or the highest technical, or vocational p [facility] degree you have received? 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 Name: Escitalopram oxalate Strength: 20 mg tab Frequency: take one tab PO daily Quantity: 30 Refills: Last Refill: 11-25-20 Pharmacy: [facility] documented in this encounter Plan of Treatment Not on filedocumented as of this encounter Visit Diagnoses Diagnosis Anxiety Generalized Disorder documented in this encounter Additional Health Concerns Assessment Noted Time PHQ-9 Depression Total Score: 4 10/24/2020 8:00 AM TITLE CLERK AUTOMOBILE documented as of this encounter Care Teams Varnish Maker Helper Relationship Specialty Start Date End Date Ary Purcell P.A.-C., P.A. PCP - General 06/07/19 01/14/22 documented as of this encounter
--- OUTSIDE RECORDS SUMMARY | 2022-04-07 13:13 | XMS_ITS | Encounter Summary ---
:1995 Author Organization [facility] Address [address] [place] [address] Care Team Providers Name Role Phone Ary Purcell P.A.-C., P.A. Primary Care Provider Ailin diaz Encounter Details Date Type Department Care Team Description 06/27/2020 Orders Only Department of [facility] Ary Purcell, Medicine, [facility] Clinic, in [address] [phone] Social History Tobacco Use [...] 10/23/2020 relatives? How often do you attend methodist or mandaen Never 10/23/2020 services? 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 PCP - General 06/07/19 01/14/22 documented as of this encounter
--- OUTSIDE RECORDS SUMMARY | 2022-04-07 13:13 | XMS_ITS | Clinical Summary ---
:1995 Author Organization [facility] Address [address] [place] [address] Care Team Providers Name Role Phone Teresita Barkley M.D. Primary Care Provider Source Comments Patient records contain information from all sites at [facility]. For routine questions regarding patient records, call [phone] during business hours, M-F 8:00 AM - 5:00 PM Central Time. Record requests for emergency care only can be directed to [phone] at any time.[facility] Allergies Active Allergy Reactions Severity Noted Date Comments Cefixime Other (see comments) 12/26/2013 Unknown reaction as a child Medications Medication Sig Dispensed Refills Start End Date Status Date montelukast Take 1 tablet 90 tablet 3 Acti ve (SINGULAIR) 10 mg (10 mg total) by 1 tablet mouth at bedtime. albuterol 2.5 mg Inhale 3 mL (2.5 180 mL 1 Active /3 mL nebulizer mg total) by 1 solution nebulization every 4 (four) hours as needed for wheezing. fluticasone Inhale 2 puffs 2 36 g 3 A ctive propionate (two) times a 1 (FLOVENT HFA) 220 day. Rinse mouth mcg/actuation with water after inhaler use to reduce aftertaste and incidence of candidiasis. Do not swallow. triamcinolone Apply to 80 g 2 Active (KENALOG) 0.1 % affected area 1 cream 1-2 times daily as needed. Avoid face and groin. fluocinonide Apply 1 60 g 0 Active (LIDEX) 0.05 % application 2 ointment topically 2 (two) times a day as needed for irritation or rash. Avoid face and groin. albuterol 90 Inhale 2 puffs 54 g 3 Ac tive mcg/actuation every 4 (four) 2 inhaler hours as needed for wheezing. escitalopram Take one tablet 90 tablet 3 A ctive (Lexapro) 20 mg by mouth daily. 2 tabletIndications : Anxiety Generalized Disorder busPIRone Take 1 tablet (5 270 tablet 3 Ac tive (BUSPAR) 5 mg mg total) by 2 tablet mouth 3 (three) times a day. busPIRone Take 1 tablet (5 90 tablet 2 03/16/20 Dis continued (BUSPAR) 5 mg mg total) by 2 22 (Re order) tablet mouth 3 (three) times a day. Active Problems Patient Care Coordination Note Formatting of this note might be differe nt from the original. Patient is on ocp and lamictal. Is aware that they will decrease each the effectiveness of both meds when taken together. Problem Noted Date Depression Major One Episode Full Remission 10/24/2020 Anxiety 10/24/2020 Body Mass Index 40.0 To 44.9 Adult 10/24/2020 Asthma Moderate Persistent 02/15/2012 Overview: Asthma NOS (493.90) unknown date of dx Resolved Problems Problem Noted Date Resolved Date Fracture Ankle Closed Initial Left 02/19/201910/24 Overview: Added automatically from request for fracisco joseph [id number] Obesity Body Mass Index 30-39.9 Adult 02/19/2019 Bipolar II Disorder 07/01/2017 10/11/2018 Depressive Disorder 06/20/2015 07/01/2017 Overview: Depression NOS Hypertension Gestational Delivered 12/27/201303/08 Overview: Hypertension HTN Gestational (PIH) Deliv ered Asthma NOS 02/15/2012 10/12/2017 Overview: Asthma NOS (493.90) Exercise induced Pain Hip Left 10/24/2020 Encounters Date Type Specialty Care Team Description 03/16/2022 Refill Family Medicine Teresita Barkley M.D. Me d Refill 01/07/2022 Refill Family Medicine Ary Purcell P.A.Ana., P.A. Med Refill from Last 3 Months Immunizations Name Administration Dates Next Due 4vHPV (discontinued) 04/05/2016 9vHPV 04/05/2016 Influenza (IM) Preservative Free 06/06/2013 Influenza TIV (IM) 06/06/2013 Influenza, Injectable, Quadrivalent 06/12/2021 Influenza, Unspecified 06/11/2015, 05/21/2015, 05/24/2014, 05/08/2014, 05/29/2008 PPSV23 10/24/2020 Td (Adult), adsorbed 04/13/2007 Tdap 10/24/2013 influenza vaccine (FLUBLOK) (18 years 05/26/2020 or older) (PF) influenza vaccine quad (FLUZONE) (6 05/24/2014 months-35 months) (PF) influenza vaccine quad 05/18/2019, 06/13/2018, 08/18/2017 (FLUZONE/FLUARIX) (6 months and older)(PF) Family History Medical History Relation Name Comments Diabetes Grandfather paternal Breast cancer Grandmother paternal Diabetes Grandmother paternal Breast cancer Paternal Grandmother Kaya Relation Name Status Comments Grandfather paternal Grandmother paternal Paternal Grandmother Kaya Social History Tobacco Use Types Packs/Day Years [...] 10/23/2020 relatives? How often do you attend jain or zoroastrian Never 10/23/2020 services? Do you belong to any clubs or organizations such as No 12/04/2019 jain groups, unions, fraternal or athletic groups, or [...] or the highest technical, or vocational p LearnSproutram degree you have received? 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 Last Filed Vital Signs Vital Sign Reading Time Taken Comments Blood Pressure 131/88 10/26/2021 5:20 PM CDT Pulse 64 10/26/2021 5:20 PM CDT Temperature 36.3 ??C (97.3 ??F) 10/26/2021 5:20 PM CDT Respiratory Rate 17 10/26/2021 5:20 PM CDT Oxygen Saturation 97% 08/13/2021 8:26 AM COMMUNITY PRODUCT SPECIALIST Inhaled Oxygen Concentration - - Weight 122 kg (268 lb 1.3 oz) 10/26/2021 5:20 PM CDT Height 167.5 cm (5' 5.95) 10/24/2020 8:34 AM COMMUNITY PRODUCT SPECIALIST Body Mass Index 43.34 10/24/2020 8:34 AM COMMUNITY PRODUCT SPECIALIST Plan of Treatment Health Maintenance Due Date Last Done Comments HIV Screening 1995 Hepatitis B Vaccines (1 of 3 - 1995 3-dose series) COVID-19 Vaccine (#1) 1995 Asthma Action Plan 01/03/2018 01/03/2017 Asthma Control Test Questionnaire 10/24/2021 10/24/2020, , 01/03/2017 Pneumococcal vaccine (0-64 years) 10/24/2021 10/24/2020 (2 - PCV) Depression Monitoring (PHQ-9) 05/10/2022 01/07/2022 Influenza Vaccine (#1) 2022 06/12/2021, 05/26/2020, 05/18/2019, Additional history exists Cervical Cancer Screening 10/25/2023 10/24/2020, 04/05/2016 DTaP,Tdap,and Td Vaccines (3 - Td 10/25/2023 10/24/2013, or Tdap) Medical Devices Implanted Type Area Record Clerk Salesperson Device Shelf Model / Identifier Expiration Serial / Date Lot Scrw Lcd St Fthrd 3.5x12 - [id number] - [id number] Ankle Left: Depuy Synthes 204.012 / Implanted: Qty: 2 on 02/20/2019 by Bruno Verde M.D. at [facility] Implant Ankle 204.012 / Scrw Dcp St Fthrd 3.5x10 - [id number] Hardware Left: Depuy Syn thes 204.010 / Implanted: Qty: 2 on 02/20/2019 by Bruno Verde M.D. at [facility] e.g. Ankle / pins/screws/ rods Insurance Payer Benefit Plan / Subscriber ID Effective Phone Address T ype Group Dates [facility] [id number] 2019-Prese [id number] Medicaid HMO [place] [address] [place] [address] Care Teams Vigoureux Printer Relationship Specialty Start Date End Date Teresita Barkley M.D. PCP - General 01/15/[address] [place] [phone]
--- OUTSIDE RECORDS SUMMARY | 2022-04-07 13:13 | XMS_ITS | Encounter Summary ---
:1995 Author Organization [facility] Address [address] [place] [address] Care Team Providers Name Role Phone Ary Purcell P.A.-C. 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 Floor [address] [facility] [address] [place] [phone] (Wo rk) Social History Tobacco Use Types [...] 10/23/2020 relatives? How often do you attend spiritism or nondenominational Never 10/23/2020 services? 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 PCP - General 06/07/19 01/14/22 documented as of this encounter
--- OUTSIDE RECORDS SUMMARY | 2022-04-07 13:13 | XMS_ITS | Encounter Summary ---
:1995 Author Organization [facility] Address [address] [place] [address] Care Team Providers Name Role Phone Ary Purcell P.A.-C., P.A. Primary Care Provider Ailin diaz Encounter Details Date Type Department Care Team Description 06/17/2020 Orders Only [facility] Pharm[facility] - Ary [place], [address] [facility] 1 P.A.-[place] [phone] Social History Tobacco Use Types Packs/Day Years [...] 10/23/2020 relatives? How often do you attend sikhism or worship Never 10/23/2020 services? 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 PCP - General 06/07/19 01/14/22 documented as of this encounter
--- OUTSIDE RECORDS SUMMARY | 2022-04-07 13:13 | XMS_ITS | Encounter Summary ---
:1995 Author Organization [facility] Address [address] [place] [address] Care Team Providers Name Role Phone Ary Purcell P.A.-C., P.A. Primary Care Provider Unavaila ble Reason for Referral Outpatient (Routine) - Closed Specialty Diagnoses / Procedures Referred By Contact Refer red To Contact Diagnoses Pain Wrist Left Ary Purcell P.A.-C., [facility] Region Procedures DX Wrist Left 3+ Views P.A. [address] [place] [address] Referral ID Status Reason Start Date Expiration Date Visits Requ ested Visits Authorized [id number] Closed 10/26/2021 10/26/2022 1 1 Reason for Visit Reason Comments Wrist Pain Left wrist pain. States it s tarted last april. Does not recollect any trauma to wrist. Aleve seems to help with pain a little. Also discuss kenalog cream. Encounter Details Date Type Department Care Team Description 10/26/2021 Office Visit Department of [facility] Ary Purcell Pai n Wrist Left (Primary Dx); Medicine, [place] Gabriel, P.A. [facility], in [address] [phone] Social History Tobacco Use Types [...] 10/23/2020 relatives? How often do you attend muslim or amish Never 10/23/2020 services? Do you belong to any clubs or organizations such as 12/04/2019 muslim groups, unions, fraternal or athletic groups, or [...] or the highest technical, or vocational p [facility] degree you have received? 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 - 10/26/2021 5:30 PM CDT Lidex ointment twice daily on hands documented in this encounter Progress Notes Ary Prucell P.A.-C., Ranjana - 10/26/2021 5:30 PM CDT SUBJECTIVE CHIEF COMPLAINT/REASON FOR VISIT Carly Bob ZEB Joseph is a 26 y.o. female who presents for evaluation of Wrist Pain (Left wrist pain. States it started last april. Does not recollect any trauma to wrist. Aleve seems to help with pain a little. Also discuss kenalog cream. ). HISTORY OF PRESENT ILLNESS Carly is a pleasant 26-year-old female who presents today for 2 concerns: 1. Left wrist pain Patient has a history of left wrist pain since about April. She denies any trauma or overt injury to this joint. She has pain primarily with flexion and extension of the joint and with pushing off of surfaces to stand up. She recently started working out and has pain with doing exercises such as pushups. She denies any numbness, tingling or pins and needles feeling into her fingers. She does not do any repetitive movements and is a right-handed individual. She notes that Aleve generally will help her pain. She was wearing a wrist splint for a while which was helpful, but she is now not finding benefit with wearing this. 2. Eczema Patient has eczema bilateral hands. She has patches of dry, scaly skin and cracking at the joint lines. She was on triamcinolone cream which initially was helpful but now she has worsening dryness of her hands and rash. She does also use Eucerin cream over her steroid cream. 3. Late menstrual cycle Patient and her did start trying this month. She notes that she is 8 days late for her menstrual cycle. She did have a negative test yesterday at home. She states that sometimes her menstrual cycles are late. However, she did want me to be aware in the event that she needed imaging today. We did discuss the importance of vitamins and she is starting 1 this week. PHYSICAL EXAMINATION Vital Signs: BP 131/88 (BP Location: Left arm, Patient Position: Sitting, Cuff Size: Large) Pulse 64 Temp 36.3 ??C (Temporal) Resp 17 Wt 122 kg LMP 09/19/2021 (Exact Date) No BMI 43.34 kg/m?? Body mass index is 43.34 kg/m??. General: This patient is alert and in no acute distress. HEENT: Pupils are PERRLA, conjunctivae clear without hemorrhages or exudates. Musculoskeletal: Grossly intact, no deformities are noted. Tender to palpation over left distal radial head with decreased range of motion with flexion and extension due to pain. No significant swelling, gross deformity, erythema or warmth. Negative Tinel and Phalen test. Decreased mop man strength on the left due to pain. Skin: Normal color, temperature and moisture. Hands are dry and with superficial cracking and erythematous dry scaly patches on both the palmar and dorsal surfaces. Neuro: CN II-XII grossly intact. Psych: Behavior, mood, affect, cognition and insight are all appropriate. ASSESSMENT / PLAN 1. Pain Wrist Left Recommended x-rays as next step. Discussed with Radiology that she may be and should be wearing lead. Patient is in agreement with this plan. - DX Wrist Left 3+ Views; Future 2. Eczema Unfortunately, eczema persist despite triamcinolone cream. Prescribed Lidex instead. Continue with emollients. 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 Patient was instructed to follow up in [...] expressed understanding of the content. Total time: 20 minutes Ary Purcell P.A.-C., P.A. documented in this encounter Plan of Treatment Not on filedocumented as of this encounter Results DX Wrist Left 3+ [...] Ary Purcell P.A.-C., P.A. IMG DIAGNOSTIC IMAGING [facility] OCEDURES documented in this encounter Visit Diagnoses Diagnosis Pain Wrist Left - Primary Eczema Pain Wrist Left documented in this encounter Additional Health Concerns Assessment Noted Time PHQ-9 Depression Total Score: 1 09/01/2021 12:11 PM CS T documented as of this encounter Care Teams Knife Machine Operator Relationship Specialty Start Date End Date Ary Purcell P.A.-C., P.A. PCP - General 06/07/19 01/14/22 documented as of this encounter
--- OUTSIDE RECORDS SUMMARY | 2022-04-07 13:13 | XMS_ITS | Encounter Summary ---
:1995 Author Organization [facility] Address [address] [place] [id number] Care Team Providers Name Role Phone Ary Purcell P.A.-C., P.A. Primary Care Provider Unavaila ble Reason for Visit Reason Comments Med Refill Encounter Details Date Type Department Care Team Description 11/10/2021 Refill Department of Family Medicine, Vani Purcell, Med Refill [facility], in [place] Gabriel, P .A. [address] [phone] Social History Tobacco Use [...] How often do you attend temple or amish Never 10/23/2020 services? 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 PCP - General 06/07/19 01/14/22 documented as of this encounter
--- OUTSIDE RECORDS SUMMARY | 2022-04-07 13:13 | XMS_ITS | Encounter Summary ---
:1995 Author Organization [facility] Address [address] [place] [address] Care Team Providers Name Role Phone Ary Purcell P.A.-C., P.A. Primary Care Provider Unavaila ble Reason for Visit Reason Comments Med Refill Aerospan Encounter Details Date Type Department Care Team Description 09/09/2020 Clinical Communication Department of Ary Purcell Med Refill Family Medicine, Pina, P.A.-CGonzalo, (Aerospan) [facility], in [address] [phone] Social History Tobacco Use Types Packs/Day Years [...] How often do you attend sikhism or mormonism Never 10/23/2020 services? Do you belong to [...] or the highest technical, or vocational p [facility] degree you have received? 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 LING OPERATOR Telephone Encounter - Ary Purcell, P.Ramos. - 09/09/2020 10:37 AM CST Sent new script to [facility]. Ary Marvin LING OPERATOR Telephone Encounter - Kaela Nino L.P.N. - 09/09/2020 10:32 AM SPOOLING OPERATOR Appears to have been discontinued at visit today, notes not yet available, please advise. LING OPERATOR Telephone Encounter - Chloe Leahy - 09/09/2020 9:59 AM CST Reason for Communication: Family Alicia FAULKNER called on RX for Carly Current Can Nursing/Provider leave a detailed message?: Y Did the patient refuse triage through Nurse line? (for symptom based concerns):N Action Needed: Call Family Vargas Name of Medication (if relevant): Aerospan LING OPERATOR documented in this encounter Plan of Treatment Not on filedocumented as of this encounter Visit Diagnoses Not on filedocumented in this encounter Additional Health Concerns Assessment Noted Time PHQ-9 Depression Total Score: 10 11/08/2018 12:47 PM C DT documented as of this encounter Care Teams Inspector Health Care Facilities Relationship Specialty Start Date End Date Ary Purcell P.A.-C., P.A. PCP - General 06/07/19 01/14/22 documented as of this encounter
--- OUTSIDE RECORDS SUMMARY | 2022-04-07 13:13 | XMS_ITS | Encounter Summary ---
:1995 Author Organization [facility] Address [address] [place] [address] Care Team Providers Name Role Phone Ary Purcell P.A.-C., P.A. Primary Care Provider Ailin diaz Encounter Details Date Type Department Care Team Description 05/20/2020 Orders Only [facility] Pharmacy - Ary [place], [address] [facility] 1 P.A.-C., [place] [phone] Social History Tobacco Use Types [...] 10/23/2020 relatives? How often do you attend rastafarian or orthodoxy Never 10/23/2020 services? 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 PCP - General 06/07/19 01/14/22 documented as of this encounter
--- OUTSIDE RECORDS SUMMARY | 2022-04-07 13:13 | XMS_ITS | Encounter Summary ---
:1995 Author Organization [facility] Address [address] [place] [address] Care Team Providers Name Role Phone Ary Purcell P.A.-C., P.A. Primary Care Provider Unavaila ble Reason for Visit Reason Comments Med Refill Encounter Details Date Type Department Care Team Description 01/07/2022 Refill Department of Family Medicine, Vani Purcell, Med Refill [facility], in [place] Gabriel, P .A. [address] [phone] Social History Tobacco Use [...] 10/23/2020 relatives? How often do you attend jainism or church Never 10/23/2020 services? 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 PCP - General 06/07/19 01/14/22 documented as of this encounter
--- OUTSIDE RECORDS SUMMARY | 2022-04-07 13:13 | XMS_ITS | Encounter Summary ---
:1995 Author Organization [facility] Address [address] [place] [address] Care Team Providers Name Role Phone Ary Purcell P.A.-C., P.A. Primary Care Provider Unavaila ble Reason for Visit Reason Comments Wart on left hand pinky finger re moved, skin check both hands bumps on fingers Appointment Request (Routine) - Closed Specialty Diagnoses / Procedures Referred By Contact Refer red To Contact Family Medicine Referral ID Status Reason Start Date Expiration Date Visits Requ ested Visits Authorized [id number] Closed 04/07/2021 04/07/2022 1 1 Encounter Details Date Type Department Care Team Description 04/21/2021 Office Visit Department of [place], [place] (Primary Dx); Medicine, [facility], in [address] [phone] Social History Tobacco Use Types Packs/Day Years [...] How often do you attend yarsanism or nondenominational Never 10/23/2020 services? 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 - 04/21/2021 8:45 AM CDT SUBJECTIVE CHIEF COMPLAINT / REASON FOR VISIT Carly is a 26 y.o. female who presents for evaluation of Wart (on left hand pinky finger removed, skin check both hands bumps on fingers ). HISTORY OF PRESENT ILLNESS Carly is a pleasant 26 y.o. female who presents to clinic today with concerns of a wart on her left pinky which has been present for several months. She has tried imuh-wlk-vhnrcek remedies without relief. Looking for next steps in therapy. She has also noticed dry patches on her hands bilateral withscaling and cracking. She has tried mstm-bta-vhlsbun topical antibiotics without improvement. The following portions of the patient's history were reviewed and updated as appropriate: allergies,current medications, family history, medical history, social history, surgical history and problem list. Brief Review of Systems: A brief review of systems was negative except for that mentioned in the history of present of illness. OBJECTIVE PHYSICAL EXAM BP 123/84 (BP Location: Left arm, Patient Position: Sitting, Cuff Size: Large) Pulse 64 Temp (!)35.4 ??C (Temporal) Wt 122 kg SpO2 96% BMI 43.63 kg/m?? Body mass index is 43.63 kg/m??. GENERAL: Patient is in no distress. Capable of full communication without difficulty. Patient is polite and cooperative. SKIN: Left hand 5th digit distal aspect there is a 5 mm wart with signs of excoriation. Hands bilateral to her multiple subcentimeter scaly dry patches. No erythema or warmth. No exudate. NEURO: Alert and oriented x3, nonfocal, moving all 4 extremities. CN II-XII grossly intact. PSYCH: Affect is appropriate ASSESSMENT / PLAN #1 Wart Discussed ongoing uren-jcq-tbdgpgd remedies. Cryotherapy provided at today's visit. Continue to monitor #2 Eczema Discussed utilizing sskz-tnh-cwhiojg topical hydrocortisone cream along with moisturizing emollients. If symptoms do not improve over the next week would increase the steroid regimen to triamcinolone. Continue to monitor. Patient was instructed to follow up in [...] plan. Patient/Child/Caregiver expressed understanding of the content. Juan Cantrell M.D. documented in this encounter Plan of Treatment Not on filedocumented as of this encounter Visit Diagnoses Diagnosis Wart - Primary Eczema documented in this encounter Additional Health Concerns Assessment Noted Time PHQ-9 Depression Total Score: 1 04/21/2021 8:46 AM CDT documented as of this encounter Care Teams Burn Crew Member Relationship Specialty Start Date End Date Ary Purcell P.A.-C., P.A. PCP - General 06/07/19 01/14/22 documented as of this encounter
--- OUTSIDE RECORDS SUMMARY | 2022-04-07 13:13 | XMS_ITS | Encounter Summary ---
:1995 Author Organization [facility] Address [address] [place] [id number] Care Team Providers Name Role Phone Ary Purcell P.A.-C., P.A. Primary Care Provider Unavaila ble Reason for Visit Reason Comments Rx Prior Authorization DENIAL OF QVAR Encounter Details Date Type Department Care Team Description 06/04/2020 Clinical Communication Department of Olya Purcell Family MedicineAry, Authorizati on (DENIAL [place] Gabriel, OF QVAR) Clinic, in [address] [phone] Social History Tobacco Use Types Packs/Day Years [...] 10/23/2020 relatives? How often do you attend christianity or adventist Never 10/23/2020 services? 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 To view the denial letter, go to Snapshot, click on the med, click on the blue Denied link, and click on the attachment. As the prescriber, your options are: Appeal the decision to the insurer directly (see denial letter for how to appeal). Write a new Rx for an alternative medication therapy. If the prescription has not been released to the pharmacy, you may choose to do so for the patient to pay full zamora for if they wish. If you have questions, please reply via QuickNote. Thank you The OPPA Team documented in this encounter Plan of Treatment Not on filedocumented as of this encounter Visit Diagnoses Not on filedocumented in this encounter Additional Health Concerns Assessment Noted Time PHQ-9 Depression Total Score: 11/08/2018 12:47 PM C DT documented as of this encounter Care Teams General Manager Relationship Specialty Start Date End Date Ary Purcell P.A.-C., P.A. PCP - General 06/07/19 01/14/22 documented as of this encounter
--- OUTSIDE RECORDS SUMMARY | 2022-04-07 13:13 | XMS_ITS | Encounter Summary ---
:1995 Author Organization [facility] Address [address] [place] [address] Care Team Providers Name Role Phone Ary Purcell P.A.-C., P.A. Primary Care Provider Unavaila ble Reason for Visit Reason Comments Medication check Refill inhalers Rash On both hands. Mostly finger and Knuckles. Started in April. Saw in april and has not really cleared up. Used hydrocortisone. Appointment Request (Routine) - Closed Specialty Diagnoses / Procedures Referred By Contact Refer red To Contact Family Medicine Referral ID Status Reason Start Date Expiration Date Visits Requ ested Visits Authorized [id number] Closed 08/04/2021 08/04/2022 1 1 Encounter Details Date Type Department Care Team Description 08/13/2021 Comprehensive Visit Department of [facility] Ary Purcell Anxiety (Primary Dx); MedicineYulia P.A.-C., Depression Major One Episode Full Remission (HCC); [facility] Asthma Mode rate Persistent (HCC); [place], Dermatitis Akhil [address] [place] [id number] Social History Tobacco Use Types Packs/Day Years [...] How often do you attend christianity or catholic Never 10/23/2020 services? Do you belong [...] or the highest technical, or vocational p [facility] degree you have received? 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 Last Filed Vital Signs Vital Sign Reading Time Taken Comments Blood Pressure 117/81 08/13/2021 8:26 AM SUPERVISOR FISHING Pulse 81 08/13/2021 8:26 AM SUPERVISOR FISHING Temperature 35.8 ??C (96.4 ??F) 08/13/2021 8:26 AM SUPERVISOR FISHING Respiratory Rate 20 08/13/2021 8:26 AM SUPERVISOR FISHING Oxygen Saturation 97% 08/13/2021 8:26 AM SUPERVISOR FISHING Inhaled Oxygen Concentration - - Weight 119 kg (262 lb 2 oz) 08/13/2021 8:26 AM SUPERVISOR FISHING Height - - Body Mass Index 42.38 10/24/2020 8:34 AM SUPERVISOR FISHING documented in this encounter Patient Instructions Patient InstructionsAry Purcell P.A.Ana., P.A. - 08/13/2021 8:30 AM SUPERVISOR FISHING For depression: -continue lexapro 20mg daily -vitamin D3 2000 IU daily -light therapy 10-15 min daily For anxiety: -start buspar 5mg 2-3 times daily Will check in on the portal in 1-2 weeks Start triamcinolone cream on hands twice daily for 2 weeks -emollients such as aquaphor or eucerin cream as well RVISOR FISHING documented in this encounter Progress Notes Ary Purcell P.A.-C., Ranjana - 08/13/2021 8:30 AM CST SUBJECTIVE CHIEF COMPLAINT/REASON FOR VISIT Carly Bob ZEB Joseph is a 26 y.o. female who presents for evaluation of Medication check (Refill inhalers ) and Rash (On both hands. Mostly finger and Knuckles. Started in April. Saw in april and has not really cleared up. Used hydrocortisone. ). HISTORY OF PRESENT ILLNESS Carly is a very pleasant 26-year-old female who presents with her 2 daughters today for evaluation of a medication recheck and a few concerns. 1. Anxiety and depression Patient notes that over the past few months she has had worsening anxiety and depression despite being on Lexapro. She did try the hydroxyzine for her anxiety but felt that this made her overly tired. She denies any overt thoughts of self- harm or suicidal ideation but has had some passive fleeting thoughts. Denies any suicidal plan. Good support from , friends and parents. Her PHQ-9 today is 11, her matt 7 is 13. She states that the anxiety is worse than the depression subjectively. 2. Asthma Overall, she feels her asthma has been under better control since starting her singular medication. She does admit that she could be more consistent with her Flovent usage. She does almost always take this in the morning but misses her evening dose frequently. 3. Eczema Patient has eczema bilateral hands. She has been using [id number] hydrocortisone cream per recommendations from visit in April without any improvement. PHYSICAL EXAMINATION Vital Signs: BP 117/81 (BP Location: Left arm, Patient Position: Sitting, Cuff Size: Large) Pulse 81 Temp (!) 35.8 ??C Resp 20 Wt 119 kg SpO2 97% BMI 42.38 kg/m?? Body mass index is 42.38 kg/m??. General: This patient is alert and in no acute distress. HEENT: Pupils are PERRLA, conjunctivae clear without hemorrhages or exudates. Musculoskeletal: Grossly intact, no deformities are noted. Skin: Normal color, temperature and moisture, no rashes or lesions are noted. Neuro: CN II-XII grossly intact. Psych: Behavior, mood, affect, cognition and insight are all appropriate. ASSESSMENT / PLAN 1. Anxiety 2. Depression Major One Episode Full Remission (HCC) Continue with Lexapro 20 mg daily. We did review that she has maxed out this dose. We will trial a course of BuSpar 5 mg t.i.d.. Follow-up on the portal in 10 days to check in. Discussed that Wellbutrin could be an option in the future as well of her depression becomes more bothersome. Encouraged her to trial light therapy and a vitamin-D supplement during the winter months. 3. Asthma Moderate Persistent (HCC) Continue current medications. Encouraged her to set an alarm for her Flovent in the evening. 4. Dermatitis Atopic Prescribed triamcinolone cream to use twice daily for 2 weeks. Also recommended emollient such as Aquaphor Eucerin cream. Patient was instructed to follow up in [...] expressed understanding of the content. Total time: 25 minutes Ary Purcell P.A.-C., P.A. RVISOR FISHING documented in this encounter Plan of Treatment Not on filedocumented as of this encounter Visit Diagnoses Diagnosis Anxiety - Primary Depression Major One Episode Full Remiss ion (HCC) Asthma Moderate Persistent (HCC) Dermatitis Atopic documented in this encounter Additional Health Concerns Assessment Noted Time PHQ-9 Depression Total Score: 11 08/13/2021 8:00 AM CS T documented as of this encounter Care Teams Cab Starter Relationship Specialty Start Date End Date Ary Purcell P.A.-C., P.A. PCP - General 06/07/19 01/14/22 documented as of this encounter
--- OUTSIDE RECORDS SUMMARY | 2022-04-07 13:14 | XMS_ITS | Encounter Summary ---
:1995 Author Organization [facility] Address [address] [place] [address] Care Team Providers Name Role Phone Ary Purcell P.A.-C., P.A. Primary Care Provider Unavaila ble Reason for Visit Reason Comments Sore Throat Aug 03 Nasal Congestion Appointment Request (Routine) - Closed Specialty Diagnoses / Procedures Referred By Contact Refer red To Contact Family Medicine Referral ID Status Reason Start Date Expiration Date Visits Requ ested Visits Authorized [id number] Closed 08/20/2019 08/19/2020 1 1 Encounter Details Date Type Department Care Team Description 08/21/2019 Office Visit Department of Family Ary Purcell, Inf ection Upper Respiratory (Primary Dx); Medicine, [place] [facility], in [address] [id number] Social History Tobacco Use Types Packs/Day Years [...] often do you attend latter day or shinto Never 10/23/2020 services? Do you belong to [...] or the highest technical, or vocational p [employer] degree you have received? 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 - 08/21/2019 2:30 PM CST May use OTC antihistamine (Zyrtec or Claritin) or similar for the next few days. May use OTC Flonase twice per day to help with nasal congestion and postnasal drip. Cold/cough remedies also available OTC - DayQuil/NyQuil, Mucinex, [place] Cold/Flu, Robitussin DM, cough/throat lozenges, honey. May use OTC analgesics such as Tylenol/ibuprofen for low grade fevers and body aches. Increase fluid intake. Get plenty of rest. Cover your cough. Wash hands frequently. Follow up if symptoms worsen or fail to improve over the next several days. E M ASSEMBLER documented in this encounter Progress Notes Ary Purcell P.A.-C. 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 HISTORY OF PRESENT ILLNESS Carly Joseph LPN is a 24 y.o. female who presents with sore throat and nasal congestion since August 03. She states her daughter was diagnosed with strep at the end of 2018. She states her symptoms are sore throat, congestion, slight worsening of her asthma, chills and fatigue. She rates her sore throat pain at a 6/10. Patient is a non smoker but does have history of asthma. She states she is relatively well controlled on her asthma medications. Unfortunately, her insurance did not cover Advair any more which was themost effective for her. She is using her albuterol inhaler as needed and is only used her nebulizer a pproximately once. REVIEW OF SYSTEMS A brief review of systems was negative except for that mentioned in the history of present of illness. Current Outpatient Medications Medication Sig ??? albuterol (ACCUNEB) 2.5 mg /3 mL nebulizer solution Take 3 mL (2.5 mg total) by nebulization every 4 (four) hours as needed for wheezing. ??? albuterol (PROVENTIL HFA,VENTOLIN HFA) 90 mcg/actuation inhaler INHALE 2 PUFFS BY MOUTH EVERY 4 HOURS NEEDED FOR WHEEZING ??? escitalopram (LEXAPRO) 20 mg tablet 1/2 tab po q AM X 5 days, then 1 tab po q AM ??? fluticasone (for_FLONASE) 50 mcg/actuation nasal spray Administer 2 sprays into affected nostril(s) 2 (two) times a day as needed. ??? JOLESSA 0.15 mg-30 mcg (91) per tablet TAKE ONE TABLET BY MOUTH EVERY DAY ??? LORazepam (ATIVAN) 0.5 mg tablet 1/2 tab po q AM and 1 tab po q PM (Patient taking differently: 0.5 mg 2 (two) times a day as needed. 1/2 tab po q AM and 1 tab po q PM ) ??? fluticasone propion-salmeterol (AIRDUO RESPICLICK) 232-14 mcg/actuation inhaler Inhale 1 puff 2 (two) times a day. (Patient not taking: Reported on 08/21/2019 ) Allergies Allergen Reactions ??? Cefixime Other (see comments) Unknown reaction as a child OBJECTIVE PHYSICAL EXAMINATION BP 115/81 (BP Location: Left arm, Patient Position: Sitting, Cuff Size: Large) Pulse 70 Temp 36.7 ??C (Temporal) Resp 20 Wt 115 kg SpO2 98% No BMI 40.92 kg/m?? Body mass index is 40.92 kg/m??. General: Patient is in no distress. Capable of full communication without difficulty. Patient is polite and cooperative. HEENT: Head: Normocephalic/atraumatic. Eyes: Sclerae and conjunctivae are clear. No periorbital erythema or swelling. EOM intact. Ears: Tympanic membranes are clear bilaterally with normal landmarks, normal light reflex. Canals are patent. Nose: Nasal turbinates are not congested. Throat: Oral mucosa is pink and moist. Posterior pharynx is non-erythematous. Tonsils are mildly enlarged. No exudate. Neck: Mild anterior cervical adenopathy. Heart: Regular rate and rhythm. No murmurs noted. Lungs: Clear to auscultation bilaterally. No expiratory wheeze. No accessory muscles of respiration noted. Abdomen: Benign. DIAGNOSTICS Results for orders placed or performed in visit on 08/21/19 Strep Group A, PCR, Point of Care Result Value Ref Range Strep Group A, PCR, POCT Collected ASSESSMENT / PLAN ASSESSMENT/PLAN 1. Infection Upper Respiratory 2. Pharyngitis Acute As patient does have a family member who recently had diagnosis of strep an ongoing sore throat for 2-3 weeks, we'll do a strep swab today. Her pharmacy of choice is [facility]. 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 If not, she should remain out of work until she has 24 hours fever free. - Strep Group A, PCR, Point of Care May use OTC antihistamine (Zyrtec or Claritin) or similar for the next few days. May use OTC Flonase twice per day to help with nasal congestion and post-nasal drip. Cough remedies also available OTC - Robitussin DM, cough/throat lozenges, honey. May use OTC analgesics such as Tylenol/ibuprofen for low grade fevers and body aches. Increase fluid intake. Get plenty of rest. Cover your cough. Wash hands frequently. RTC if no improvement in 7-10 days, or sooner if new or concerning symptoms develop. Patient verbalizes understanding and acceptance of this plan of care and denies any further needs atthis time. Ary Purcell P.A.-C. E M ASSEMBLER documented in this encounter Plan of Treatment Not on filedocumented as of this encounter Procedures Procedure Name Priority Date/Time Associated Diagnosis Comme nts STREP GROUP A, PCR, Routine 08/21/2019 3:02 PM Re sults for this POCT E M ASSEMBLER procedure are i n the results section. STREP GROUP A, PCR, Routine 08/21/2019 2:43 PM Pharyngitis Acu te Results for this POCT E M ASSEMBLER procedure are i n the results section. documented in this encounter Results Strep Group A, PCR, Point of Care (08/21/2019 3:02 PM E M ASSEMBLER) athologist Signature Strep Group A, Negative Negative 08/21/2019 CNNM PCR, POCT 3:02 PM E M ASSEMBLER Specimen Anatomical Collection Method Collection Time Receive d Time (Source) Location / / Volume Laterality Varies 08/21/2019 3:02 PM 0 3:03 E M ASSEMBLER PM E M ASSEMBLER Generic Rals LAB POCT ORDERABLES - DEVICE Performing Organization Address City/State/[facility] Code Phon e Number [facility]- [address] [place] [id number] [place] [address] System in [address] Strep Group A, PCR, Point of Care (08/21/2019 2:43 PM E M ASSEMBLER) Analysis Performed At Patho logist Time Signature Strep Group A, Collected DEFAULT 08/21/2019 CNFL PCR, POCT 2:43 PM E M ASSEMBLER Specimen Anatomical Collection Method Collection Time Receive d Time (Source) Location / / Volume Laterality Varies (Throat) 08/21/2019 2:43 PM 2019 2:43 E M ASSEMBLER PM E M ASSEMBLER Ary Purcell P.A.-C., P.A. LAB POCT ORDERABLES - DEV ICE Performing Organization Address City/State/[facility] Phon e Number [address] [place] [address] System in [address] documented in this encounter Visit Diagnoses Diagnosis Infection Upper Respiratory - Primary Pharyngitis Acute documented in this encounter Additional Health Concerns Assessment Noted Time PHQ-9 Depression Total Score: 10 11/08/2018 12:47 PM C DT documented as of this encounter Care Teams Acid Tank Liner Relationship Specialty Start Date End Date Ary Purcell P.A.-C., P.A. PCP - General 06/07/19 01/14/22 documented as of this encounter
--- OUTSIDE RECORDS SUMMARY | 2022-04-07 13:14 | XMS_ITS | Encounter Summary ---
:1995 Author Organization [facility] Address [address] [place] [address] Care Team Providers Name Role Phone Ary Purcell P.A.-C., P.A. Primary Care Provider Ailin diaz Encounter Details Date Type Department Care Team Description 10/15/2019 Clinical Communication Department of [facility], Medicine, [facility], in [address] [phone] Social History Tobacco Use Types Packs/Day Years [...] How often do you attend christianity or uatsdin Never 10/23/2020 services? 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 We may contact Carly at [phone] and she states we may leave a detailed message, should we receive her voicemail. PROGRAMMER documented in this encounter Plan of Treatment Not on filedocumented as of this encounter Results QuantiFERON-Tb Gold Plus, Blood (10/16/2019 2:38 PM GIS PROGRAMMER) P athologist Signature QuantiFERON-TB Negative Negative 10/18/2019 ECLR Gold Plus 1:34 PM GIS PROGRAMMER Result Comment: No interferon-gamma response to M. tuber culosis antigens was detected. Infection with M. tubercul osis is unlikely. A single negative result does not exclud e infection with M. tuberculosis. In patients at high ris k for M.tuberculosis infection, a second test should be consi dered in accordance with the 2017 ATS/IDSA/CDC Clinical Prac harpreet Guidelines for Diagnosis of Tuberculosis in Adults and Children [Abhinav HE et. al. Clin. Infect. Dis. 2017;64(2):111-115]. The reference range for the 'TB1 Ag ninoska s Nil Result' and 'TB2 Ag minus Nil Result' is an Inte rferon-gamma level <0.35 IU/mL. TB1 Ag minus Nil Result 0.00 IU/mL 10/18/2019 1:34 PM GIS PROGRAMMER ECLR TB2 Ag minus Nil Result 0.00 IU/mL 10/18/2019 1:34 PM GIS PROGRAMMER ECLR Mitogen minus Nil Result >10.00 IU/mL 10/18/2019 1:34 PM GIS PROGRAMMER ECLR Nil Result 0.02 IU/mL 10/18/2019 1:34 PM GIS PROGRAMMER ECLR Specimen Anatomical Collection Method Collection Time Receive d Time (Source) Location / / Volume Laterality Blood (Blood, 10/16/2019 2:38 PM 10/16/19 20 9:46 Venous) GIS PROGRAMMER PM GIS PROGRAMMER Narrative [facility] - 10/18/2019 1:34 PM GIS PROGRAMMER Specimen Information: Specimen ID: [id number] Specimen Type: Blood Specimen Collection Start Date: 0 ??2:38 PM Specimen Received Date: 10/16/2019 ??9:46 PM Specimen ID: [id number] Specimen Type: Blood Specimen Collection Start Date: 0 ??2:38 PM Specimen Received Date: 10/16/2019 ??9:46 PM Specimen ID: [id number] Specimen Type: Blood Specimen Collection Start Date: 0 ??2:38 PM Specimen Received Date: 10/16/2019 ??9:46 PM Specimen ID: [id number] Specimen Type: Blood Specimen Collection Start Date: 0 ??2:38 PM Specimen Received Date: 10/16/2019 ??9:46 PM Ary Purcell P.A.-C., P.A. LAB MICROBIOLOGY - BLOOD ORDERABLES Performing Organization Address City/State/ZIP Code Phon e Number [facility]- [address] [place] [address] [place] [address] System in [address] documented in this encounter Visit Diagnoses Diagnosis Screening Test Laboratory - Primary Screening Test Laboratory documented in this encounter Additional Health Concerns Assessment Noted Time PHQ-9 Depression Total Score: 10 11/08/2018 12:47 PM C DT documented as of this encounter Care Teams Automatic Profile Sander Operator Relationship Specialty Start Date End Date Ary Purcell P.A.-C., P.A. PCP - General 06/07/19 01/14/22 documented as of this encounter
--- OUTSIDE RECORDS SUMMARY | 2022-04-07 13:14 | XMS_ITS | Encounter Summary ---
:1995 Author Organization [facility] Address [address] [place] [address] Care Team Providers Name Role Phone Ary Purcell P.A.-C., P.A. Primary Care Provider Unavaila ble Reason for Visit Reason Comments COVID Nurse Line Encounter Details Date Type Department Care Team Description 12/03/2019 Clinical Communication Central Appointment Line, [place] Nurse Line Office in [facility] [address] [place], [place] [id number] Social History Tobacco Use Types Packs/Day Years [...] How often do you attend moravian or advent Never 10/23/2020 services? 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 - 12/03/2019 8:48 AM CDT COVID-19 Nurse Line Screening ASSESSMENT COVID 19 Screening Have you had close contact with a person who has a LABORATORY CONFIRMED case of COVID-19?: No - Continue screening. In the last 48 hours have you had any of the following symptoms?: Fever, New shortness of breath, New respiratory distress (fast breathing), New myalgias (muscle aches), No - Complete screening. Consider alternative diagnosis. We are not currently testing or isolating patients or visitors who have no symptoms and no close contact.(98.4 last night, using rescue inhaler and nebluzer use increase for shortness of breath. Has history of asthma) Do you have any urgent symptoms?: None- Patient meets criteria for testing. PLAN Endpoint recommendation: Screening positive, testing indicated, advised to be swabbed for COVID-19, sent to [place], [place] and Self-isolation, quarantine at home Care Points provided: Standard precautions for all patients: Wash hands often with soap and water for at least 20 seconds, especially after blowing your nose, coughing, sneezing, or having been in a public place. If soap and water aren't available, use a hand curriculum advisory teacher that contains at least 60% alcohol. Avoid close contact with anyone who may be exhibiting respiratory symptoms such as coughing and sneezing. Avoid touching your eyes, nose and mouth. Clean and disinfect frequently touched surfaces daily. Cover your mouth and nose with a cloth face cover when around others or in public. The cloth face cover is not a substitute for social distancing. Continue to keep about 6 feet between yourself andothers. Stay home as much as possible (only going out for essential items or medical care). Educational Resource: https://www.cdc.gov/coronavirus/2019-ncov/spdxhny-jvzpvzs-ggou/index.html Recommendations as testing criteria is met: Stay home except to get medical care. Avoid public areas(do not go to work, school, etc). Avoid public transportation, riding sharing (if possible) or taxis. Stay in a specific sick room if possible and away from other people and pets in your home. Use a s eparate bathroom if possible. Wear a cloth face covering, over your nose and mouth if you must be around other people even at home). Contact employer/occupational health department to notify them that they are being tested. If patient is living with a high risk family member, seek medical advice from their primary care provider. *High risk includes family member with heart of lung disease (e.g. asthma, COPD), immunosuppression (e.g. cancer, HIV/AIDS), women, or 65 years and older. Go to [facility] emergency department if any of the following occur: 1) New shortness of breath at rest, 2) Pain, pressure or tightness unrelated to coughing in the chest, jaw or arm, 3) Newly confused or unable to stay alert and awake. Notify primary care provider if any new or worsening symptoms. Education Resources: https://www.cdc.gov/coronavirus/2019-ncov/kf-bmi-ekw-sick/gsuzh-tkdj-ncvl.html Education: patient/caregiver Patient/caregiver able to teach back Patient agreeable to plan of care: Yes The following references were used: [facility] Nursing judgement documented in this encounter Plan of Treatment Not on filedocumented as of this encounter Visit Diagnoses Not on filedocumented in this encounter Additional Health Concerns Assessment Noted Time PHQ-9 Depression Total Score: 10 11/08/2018 12:47 PM C DT documented as of this encounter Care Teams Mail Teller Relationship Specialty Start Date End Date Ary Purcell P.A.-C., P.A. PCP - General 06/07/19 01/14/22 documented as of this encounter
--- OUTSIDE RECORDS SUMMARY | 2022-04-07 13:14 | XMS_ITS | Encounter Summary ---
:1995 Author Organization [facility] Address [address] [place] [address] Care Team Providers Name Role Phone Chandni Urbina APRN C.N.P., D.N.P. Primary Care Provider Encounter Details Date Type Department Care Team Description 03/26/2019 Hospital Encounter Department of Chandni Urbina Follow Up Examination Radiology in James Heller APRN, Postoperati ve Visit [place], [place] C.N.P., D.N.P. [address] [facility] [address] [place] [phone] [phone] Social History Tobacco Use Types Packs/Day Years [...] 10/23/2020 relatives? How often do you attend hoahaoism or moravian Never 10/23/2020 services? 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 albuterol (ACCUNEB) Take 3 mL (2.5 mg 180 mL 1 9 08/13/2021 2.5 mg /3 mL nebulizer total) by nebulization solution every 4 (four) hours as needed for wheezing. albuterol (VENTOLIN Inhale 2 puffs every 4 2 Inhaler 3 09/1507/08/2019 HFA) 90 mcg/actuation (four) hours as needed inhaler for wheezing. escitalopram (LEXAPRO) 1/2 tab po q AM X 5 100 tablet 3 09/1610/31/2019 20 mg days, then 1 tab po q tabletIndications: AM Anxiety Generalized Disorder fluticasone Administer 2 sprays 0 07/18/201410/13 (for_FLONASE) 50 into affected mcg/actuation nasal nostril(s) 2 (two) spray times a day as needed. fluticasone Inhale 1 puff 2 (two) 1 each 3 10/25/2018 propion-salmeterol times a day. (AIRDUO RESPICLICK) 232-14 mcg/actuation inhaler JOLESSA 0.15 mg-30 mcg TAKE ONE TABLET BY 91 tablet 4 02/2703/19/2020 (91) per tablet MOUTH EVERY DAY LORazepam (ATIVAN) 0.5 1/2 tab po q AM and 1 50 tablet 2 09/09/2020 mg tablet tab po q PM oxyCODONE (ROXICODONE) Take 1 tablet (5 mg 20 tablet 0 /10/201808/21/2019 5 mg immediate release total) by mouth every tabletIndications: 4 (four) hours as Prolonged Acute needed for pain Pain/Traumatic Injury Indication: Prolonged Acute Pain/Traumatic Injury. documented as of this encounter Plan of Treatment Not on filedocumented as of this encounter Procedures Procedure Name Priority Date/Time Associated Diagnosis Comme nts DX ANKLE LEFT 3+ RAD - Routine 03/26/2019 1:48 Follow Up Results for this VIEWS (most inpatients PM CDT Examination procedure a re in and all Postoperative Visit the resu lts outpatients) section. documented in this encounter Results DX Ankle Left 3+ Views (03/26/2019 1:48 PM CDT) Anatomical Region Laterality Modality Lower Extremity, Ankle, Musculoskeletal RST LOS, Left Digital Radiography Musculoskeletal ARZ LOS, Muskuloskeletal FLA LOS Specimen (Source) Anatomical Collection Method Collection Time Re ceived Time Location / / Volume Laterality 03/26/2019 2:15 PM CDT Impressions 03/26/2019 2:19 PM CDT Postoperative changes lateral plate and screw internal fixation distal fibula with syndesmotic repair, w ithout evidence of hardware complication. Alignment unchanged. Symme tric ankle mortise. Talar dome appears intact. No new fracture. Comparison March 06, 2019. Narrative 03/26/2019 2:19 PM CDT EXAM: DX ANKLE LEFT 3+ VIEWS Procedure Note Oumar Bob M.D. - 03/26/2019Formattin g of this note might be different from the original. EXAM: DX ANKLE LEFT 3+ VIEWS IMPRESSION: Postoperative changes lateral plate and screw internal fixation distal fibula with syndesmotic repair, w ithout evidence of hardware complication. Alignment unchanged. Symme tric ankle mortise. Talar dome appears intact. No new fracture. Comparison March 06, 2019. Chandni Urbina APRN, C.N.P., D.N.P. IMG DIAGNOSTIC IM AGING PROCEDURES documented in this encounter Visit Diagnoses Diagnosis Follow Up Examination Postoperative Visi t documented in this encounter Additional Health Concerns Assessment Noted Time PHQ-9 Depression Total Score: 10 11/08/2018 12:47 PM C DT documented as of this encounter Care Teams Utility Pipe Layer Relationship Specialty Start Date End Date Chandni Urbina, TOBI, C.N.P., PCP - General Family Medicine 06/06/19 D.N.P. [address] [place] [address] documented as of this encounter
--- OUTSIDE RECORDS SUMMARY | 2022-04-07 13:14 | XMS_ITS | Encounter Summary ---
:1995 Author Organization [facility] Address [address] [place] [address] Care Team Providers Name Role Phone Chandni Urbina APRN, C.N.Mana, D.N.P. Primary Care Provider Reason for Visit Reason Comments Post-op Wound Care Outpatient (Routine) - Closed Specialty Diagnoses / Procedures Referred By Contact Refer red To Contact Orthopedic Surgery Diagnoses Fracture Ankle Closed Initial Left Chandni Urbina, [facility] TOBI C.N.PGonzalo, D.N.P. [address] [place] [address] Referral ID Status Reason Start Date Expiration Date Visits Requ ested Visits Authorized [id number] Closed 02/20/2019 02/20/2020 1 1 Encounter Details Date Type Department Care Team Description 03/29/2019 Office Visit Department of Chandni Urbina, Fracture Ankle Closed Orthopedic Surgery in [place] C.N.PGonzalo, [facility] al Left [place], [place] D.N.P. [address] [facility] [address] [place] [phone] Social History Tobacco Use Types Packs/Day Years [...] How often do you attend restorationism or congregational Never 10/23/2020 services? 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 - 03/29/2019 9:30 AM CDT SUBJECTIVE CHIEF COMPLAINT / REASON FOR VISIT Carly Bob ZEB Joseph is a 24 y.o. female who presents for evaluation of Post-op and Wound Care of the Left Ankle. HISTORY OF PRESENT ILLNESS Carly is a pleasant 24 y.o. female who is 5.5 weeks s/p open reduction/internal fixation of left ankle fracture with syndesmotic fixation. She started on Keflex for a mild cellulitis around her incision 3 days ago with improvement in symptoms however she is here today because the distal portion of her incision open slightly. She reports minimal bloody drainage. No increased redness, swelling or pain. No fevers or chills. OBJECTIVE PHYSICAL EXAMINATION General: Patient is in no distress. Capable of full communication without difficulty. Patient is polite and cooperative. Extremities: Approx 1 cm opening noted at the distal portion of her incision which shows granulatingtissue. No increased redness, swelling or drainage. No neurovascular compromise. Neuro: Alert and oriented x3. ASSESSMENT / PLAN #1 Fracture Ankle Closed Initial Left Sary is a pleasant 24-year-old female who is 5.5 weeks status post ORIF of left ankle fracture with syndesmotic fixation. She was treated for mild cellulitis earlier this week with improvement in symptoms. Her incision is opened slightly but appears to be healing well without concerns for infection. Incision was cleaned well with Betadine and covered with gauze. Steri-Strips were not needed. She will continue to monitor for signs and symptoms of infection and follow-up urgently if any arise. She will otherwise see us back in 1 week, will re-x-ray at that time. If x-ray is stable, will have her see physical therapy for slow progression of weight-bearing. documented in this encounter Plan of Treatment Not on filedocumented as of this encounter Visit Diagnoses Diagnosis Fracture Ankle Closed Initial Left documented in this encounter Additional Health Concerns Assessment Noted Time PHQ-9 Depression Total Score: 10 11/08/2018 12:47 PM C DT documented as of this encounter Care Teams Learning And Development Administrator Relationship Specialty Start Date End Date Chandni Urbina APRN, C.N.P., PCP - General Family Medicine 06/06/19 D.N.P. [address] [place] [address] documented as of this encounter
--- OUTSIDE RECORDS SUMMARY | 2022-04-07 13:14 | XMS_ITS | Encounter Summary ---
:1995 Author Organization [facility] Address [address] [place] [address] Care Team Providers Name Role Phone Ary Purcell P.A.-C., P.A. Primary Care Provider Unavaila ble Reason for Visit Reason Onset Date Comments Outpatient COVID-19 Testing 12/03/2019 Encounter Details Date Type Department Care Team Description 12/03/2019 External Outreach Department of [facility] Betty Garcia Infection Upper Medicine, [place] Jose Armando PGonzaloAGonzalo-Guillermina Respiratory (Primary Clinic, in [place], [address] [place] [address] Dx) [place], [place] 701 [facility] [address] [place], [place] [phone] (Work) [phone] Social History Tobacco Use Types Packs/Day Years [...] 10/23/2020 relatives? How often do you attend protestant or anglican Never 10/23/2020 services? 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 - 12/03/2019 9:55 AM CDT Encounter created for the drive-through COVID-19 testing. documented in this encounter Plan of Treatment Not on filedocumented as of this encounter Procedures Procedure Name Priority Date/Time Associated Diagnosis Comme nts SARS CORONAVIRUS-2, Routine 12/03/2019 10:39 AM Infection Uppe r Results for this PCR CDT Respiratory procedure are i n the results section. documented in this encounter Results SARS Coronavirus-2, PCR (12/03/2019 10:39 AM CDT) [facility] Method Time Signature SARS Swab, 12/03/2019 DTL Coronavirus-2 Nasopharynx 8:49 PM CDT Source SARS Undetected Undetected 12/03/2019 DTL Coronavirus-2 8:49 PM CDT , PCR Comment: SARS-CoV-2 RNA absent. This result does not rule out COVID-19 in the patient, as the sensitivity of the test depends o n the timing of the specimen collection and quality of the specimen. Result should be correlated with patient's history and clinical presentat ion. ----ADDITIONAL INFORMATION---- This test was developed and its performa nce characteristics determined by [facility] in a manner co nsistent with CLIA requirements. Independent review by the U.S. Food and Drug Administration is pending. Visit the CDC website: https://www.cdc.gov/coronavirus/ ?? for the most recent guidelines on Toribio virus testing. Fact Sheet for Healthcare Providers: (https://www.Mobile Iron/it-mmfil es/ Provider_Fact_Sheet_for_[facility]_COVI D-19.pdf) Fact Sheet for Patients: (https://www.Mobile Iron/it-mmfil es/ Patient_Fact_Sheet_for_COVID-19.pdf) Specimen Anatomical Collection Method Collection Time Receive d Time (Source) Location / / Volume Laterality Varies 12/03/2019 10:39 12/03/2019 (Nasopharynx) AM CDT 12:52 PM CDT Emmanuel Garcia P.A.-C. LAB MICROBIOLOGY - GENERAL O GILBERTO Performing Organization Address City/State/[facility] Code Phon e Number [facility] - [address] [place] [phone] [facility] [address] Laboratories-[facility] 200 [facility] documented in this encounter Visit Diagnoses Diagnosis Infection Upper Respiratory - Primary documented in this encounter Additional Health Concerns Infection Onset Date Last Indicated Resolved Time COVID19 Pending 12/03/2019 12/03/2019 12/03/2019 8:49 PM CDT Assessment Noted Time PHQ-9 Depression Total Score: 10 11/08/2018 12:47 PM C DT documented as of this encounter Care Teams Starch Crab Relationship Specialty Start Date End Date Ary Purcell P.A.-C., P.A. PCP - General 06/07/19 01/14/22 documented as of this encounter
--- OUTSIDE RECORDS SUMMARY | 2022-04-07 13:14 | XMS_ITS | Encounter Summary ---
:1995 Author Organization [facility] Address [address] [place] [address] Care Team Providers Name Role Phone Ary Purcell P.A.-C., P.A. Primary Care Provider Ailin diaz Encounter Details Date Type Department Care Team Description 10/16/2019 Hospital Encounter Department of Ary Purcelli ng Test Laboratory Medicine Gabriel Heller, Laborato ry in [place], .A. [address] [phone] Social History Tobacco Use Types Packs/Day Years [...] 10/23/2020 relatives? How often do you attend mu-ism or samaritan Never 10/23/2020 services? 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 albuterol (PROVENTIL INHALE 2 PUFFS BY 2 Inhaler 3 07/09/20 19 01/11/2020 HFA,VENTOLIN HFA) 90 MOUTH EVERY 4 HOURS mcg/actuation inhaler NEEDED FOR WHEEZING beclomethasone (QVAR Inhale 1 puff 2 (two) 1 Inhaler 0 08/1605/16/2020 REDIHALER) 40 times a day. Rinse mcg/actuation inhaler mouth with water after use to reduce aftertaste and incidence of candidiasis. Do not swallow. escitalopram (LEXAPRO) 1/2 tab po q AM [...] 09/09/2020 mg tablet tab po q PM documented as of this encounter Plan of Treatment Not on filedocumented as of this encounter Procedures Procedure Name Priority Date/Time Associated Diagnosis Comme nts QUANTIFERON-TB GOLD Routine 10/16/2019 2:38 PM Screening Test Results for this PLUS, B CLINICAL MENTAL HEALTH COUNSELOR Laboratory procedure are i n the results section. documented in this encounter Results QuantiFERON-Tb Gold Plus, Blood (10/16/2019 2:38 PM CLINICAL MENTAL HEALTH COUNSELOR) athologist Signature QuantiFERON-TB Negative Negative 10/18/2019 ECLR Gold Plus 1:34 PM CLINICAL MENTAL HEALTH COUNSELOR Result Comment: No interferon-gamma response to M. [...] Nil Result 0.00 IU/mL 10/18/2019 1:34 PM CLINICAL MENTAL HEALTH COUNSELOR ECLR TB2 Ag minus Nil Result 0.00 IU/mL 10/18/2019 1:34 PM CLINICAL MENTAL HEALTH COUNSELOR ECLR Mitogen minus Nil Result >10.00 IU/mL 10/18/2019 1:34 PM CLINICAL MENTAL HEALTH COUNSELOR ECLR Nil Result 0.02 IU/mL 10/18/2019 1:34 PM CLINICAL MENTAL HEALTH COUNSELOR ECLR Specimen Anatomical Collection Method Collection Time Receive d Time (Source) Location / / Volume Laterality Blood (Blood, 10/16/2019 2:38 PM 10/16/19 20 9:46 Venous) CLINICAL MENTAL HEALTH COUNSELOR PM CLINICAL MENTAL HEALTH COUNSELOR Narrative [facility] - 10/18/2019 1:34 PM CLINICAL MENTAL HEALTH COUNSELOR Specimen Information: Specimen ID: [id number] Specimen Type: Blood Specimen Collection Start Date: 0 ??2:38 PM Specimen Received Date: 10/16/2019 ??9:46 PM Specimen ID: [id number] Specimen Type: Blood Specimen Collection Start Date: 0 ??2:38 PM Specimen Received Date: 10/16/2019 ??9:46 PM Specimen ID: [id number] Specimen Type: Blood Specimen Collection Start Date: 0 ??2:38 PM Specimen Received Date: 10/16/2019 ??9:46 PM Specimen ID: [id number] Specimen Type: Blood Specimen Collection Start Date: 0 ??2:38 PM Specimen Received Date: 10/16/2019 ??9:46 PM Ary Purcell P.A.-C., P.A. LAB MICROBIOLOGY - BLOOD ORDERABLES Performing Organization Address City/State/[facility] Phon e Number [facility]- [address] [place] [address] [phone] [facility] [place] [place] [address] System in [address] documented in this encounter Visit Diagnoses Diagnosis Screening Test Laboratory documented in this encounter Additional Health Concerns Assessment Noted Time PHQ-9 Depression Total Score: 11/08/2018 12:47 PM C DT documented as of this encounter Care Teams Lithographer Helper Relationship Specialty Start Date End Date Ary Purcell P.A.-C., P.A. PCP - General 06/07/19 01/14/22 documented as of this encounter
--- OUTSIDE RECORDS SUMMARY | 2022-04-07 13:14 | XMS_ITS | Encounter Summary ---
:1995 Author Organization [facility] Address [address] [place] [address] Care Team Providers Name Role Phone rAy Purcell P.A.-C., P.A. Primary Care Provider Unavaila ble Reason for Visit Reason Comments Shortness of Breath having to use neb treatments , low grade temp Appointment Request (Routine) - Closed Specialty Diagnoses / Procedures Referred By Contact Refer red To Contact Family Medicine Referral ID Status Reason Start Date Expiration Date Visits Requ ested Visits Authorized [id number] Closed 12/04/2019 12/03/2020 1 1 Encounter Details Date Type Department Care Team Description 12/04/2019 Telemedicine Department of [facility] Ary Purcell, Sin usitis (Primary Dx); Medicine, [place] ManaAGonzalo-Mitchell., P.A. Infe ction Upper Respiratory; Clinic, in [place] [facility] Exa cerbation ([address] [phone] Social History Tobacco Use Types Packs/Day Years [...] 10/23/2020 relatives? How often do you attend alevism or congregational Never 10/23/2020 services? 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 - 12/04/2019 1:30 PM CDT SUBJECTIVE CHIEF COMPLAINT/REASON FOR VISIT Carly Bob ZEB Joseph is a 24 y.o. female who presents for evaluation of Shortness of Breath (having to use neb treatments, low grade temp). Consult conducted via real-time audio/video technology by Ary Purcell P.A.-C. in [facility] [place] to the patient's home. HISTORY OF PRESENT ILLNESS Carly is a very pleasant 24-year-old female who presents for a video visit for evaluation of upper respiratory infection. She was swabbed for coronavirus yesterday and found to be negative. 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 She states her symptoms 1st started a few weeks ago with nasal congestion and runny nose. She does have a history of seasonal allergies but this seemed more persistent than that. On Tuesday she developed wheezing and difficulty breathing, body aches, and a low-grade fever of 99.5. She states she required her nebulizer to have improvement with her breathing. She was also taking Sudafed and allergy medication. Now, she has ongoing wheezing, shortness of breath, and sinus headache/facial pain. She also has earpressure and ongoing low-grade temps of 99.1-99.5. She denies any nausea, vomiting, diarrhea or sorethroat. She is using her nebulizers approximately twice daily with intermittent use of her rescue inhaler. REVIEW OF SYSTEMS A brief review of [...] EVERY 4 HOURS NEEDED FOR WHEEZING ??? beclomethasone (QVAR REDIHALER) 40 mcg/actuation inhaler [...] 1 tab po q PM ) ??? azithromycin (ZITHROMAX) 250 mg tablet Take 2 tabs (500 mg) by mouth today, then 1 tab (250 mg) daily for 4 days. ??? predniSONE (DELTASONE) 20 mg tablet Take 1 tab 3 x daily for 3-5 days until wheezing/shortness of breath of asthma flare resolves ALLERGIES/CONTRAINDICATIONS Allergies Allergen Reactions ??? Cefixime Other (see comments) Unknown reaction as a child OBJECTIVE PHYSICAL EXAMINATION Visual examination performed as indicated for virtual visit. DIAGNOSTICS Results for orders placed or performed in visit on 12/03/19 SARS Coronavirus-2, PCR Specimen: Nasopharynx; Varies Result Value Ref Range SARS Coronavirus-2 Source Swab, Nasopharynx SARS Coronavirus-2, PCR Undetected Undetected ASSESSMENT / PLAN 1. Sinusitis 2. Infection Upper Respiratory 3. Asthma Exacerbation (HCC) Patient was treated with antibiotics and steroid burst for her asthma exacerbation. She should continue to use her rescue inhaler and nebulizers as needed. If she does not have improvement from these interventions, I would like to hear back from her. 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 Patient was instructed to follow up in primary care if symptoms are worsening or there is no improvement over the next several days. Plan was discussed with patient and is in agreement with plan. All questions were answered, side effects of any/all new medications were discussed. Ready to learn. No apparent learning barriers were identified. Learning preferences include listening. Explained diagnosis and treatment plan. Patient/Child/Caregiver expressed understanding of the content. Ary Purcell P.A.-C. documented in this encounter Plan of Treatment Not on filedocumented as of this encounter Visit Diagnoses Diagnosis Sinusitis - Primary Infection Upper Respiratory Asthma Exacerbation (HCC) documented in this encounter Additional Health Concerns Assessment Noted Time PHQ-9 Depression Total Score: 10 11/08/2018 12:47 PM C DT documented as of this encounter Care Teams Careers Adviser Relationship Specialty Start Date End Date Ary Purcell P.A.-C., P.A. PCP - General 06/07/19 01/14/22 documented as of this encounter
--- OUTSIDE RECORDS SUMMARY | 2022-04-07 13:14 | XMS_ITS | Encounter Summary ---
:1995 Author Organization [facility] Address [address] [place] [address] Care Team Providers Name Role Phone Ary Purcell P.A.-C., P.A. Primary Care Provider Unavaila ble Reason for Visit Reason Comments Med Refill Encounter Details Date Type Department Care Team Description 07/08/2019 Refill Department of Orthopedic Chandni Urbina APRN, Med Refill Surgery in [place], [place] C.N.P., D.N.P. 701 [facility] 701 [place] [phone] [place] [phone] (Wo rk) Social History Tobacco Use Types [...] How often do you attend mu-ism or orthodox Never 10/23/2020 services? 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 PCP - General 06/07/19 01/14/22 documented as of this encounter
--- OUTSIDE RECORDS SUMMARY | 2022-04-07 13:14 | XMS_ITS | Encounter Summary ---
:1995 Author Organization [facility] Address [address] [place] [address] Care Team Providers Name Role Phone Ary Purcell P.AGonzalo-C., P.A. Primary Care Provider Unavaila ble Reason for Visit Reason Comments Med Refill Encounter Details Date Type Department Care Team Description 01/11/2020 Refill Department of Orthopedic Ary Purcell, Med Refill Surgery in [place], [place] P.A.-C., P.A. [address] [place] [phone] Social History Tobacco Use Types Packs/Day [...] How often do you attend methodist or hoahaoism Never 10/23/2020 services? 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 PCP - General 06/07/19 01/14/22 documented as of this encounter
--- OUTSIDE RECORDS SUMMARY | 2022-04-07 13:14 | XMS_ITS | Encounter Summary ---
:1995 Author Organization [facility] Address [address] [place] [address] Care Team Providers Name Role Phone Chandni Urbian APRN CGonzaloN.PGonzalo, D.N.P. Primary Care Provider Reason for Visit Reason Comments Follow-up Patient WBAT, Pain level 08/15 0, Concerned about incision site Outpatient (Routine) - Closed Specialty Diagnoses / Procedures Referred By Contact Refer red To Contact Orthopedic Surgery Edwige Lundberg, [facility], [facility] C.N.PGonzalo, D.N.P. [address] [place] [phone] Referral ID Status Reason Start Date Expiration Date Visits Requ ested Visits Authorized [id number] Closed 04/03/2019 04/02/2020 1 1 Encounter Details Date Type Department Care Team Description 04/27/2019 Office Visit Department of Edwige Lundberg, Follow Up E xamination Orthopedic Surgery in [place].N.PGonzalo, Posto perative Visit Bailee KebedeNTeddy (Primary Dx) [address] [phone] Social History Tobacco Use Types Packs/Day Years [...] 10/23/2020 relatives? How often do you attend mandaen or confucianist Never 10/23/2020 services? Do you belong to any clubs or organizations such as No 12/04/2019 mandaen groups, unions, fraternal or athletic groups, or [...] or the highest technical, or vocational p [facility] degree you have received? 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 - 04/27/2019 11:00 AM CDT Sary is a very pleasant 24-year-old who is status post ORIF of her left ankle fracture with syndesmotic fixation. She has been weight-bearing with her boot and doing well at this time. She does have some lateral discomfort at the distal incision but no open area or redness noted. Physical exam left ankle surgical incision is healing well on the distal portion she does have some tenderness over hardware. It does appear to be healing well and she has excellent sensation distal tothe surgical site. Diagnostic studies x-ray shows stable alignment of her ankle and fracture area is continuing to heal. Impression and plan-Best is a pleasant 24-year-old status post ORIF of her ankle fracture and syndesmotic fixation she will start weaning her boot off and will follow up with us on an as-needed basis. I did give her some exercises for strengthening also if she has any continued issues or concerns we will consult physical therapy but at this time she appears to be doing well and will follow up p.r.n. documented in this encounter Plan of Treatment Not on filedocumented as of this encounter Visit Diagnoses Diagnosis Follow Up Examination Postoperative Visi t - Primary documented in this encounter Additional Health Concerns Assessment Noted Time PHQ-9 Depression Total Score: 10 11/08/2018 12:47 PM C DT documented as of this encounter Care Teams Forensic Toxicologist Relationship Specialty Start Date End Date Chandni Urbina APRN, C.N.P., PCP - General Family Medicine 06/06/19 D.N.P. [address] [place] [address] documented as of this encounter
--- OUTSIDE RECORDS SUMMARY | 2022-04-07 13:14 | XMS_ITS | Encounter Summary ---
:1995 Author Organization [facility] Address [address] [place] [address] Care Team Providers Name Role Phone Chandni Urbina APRN, C.N.Mana, D.N.P. Primary Care Provider Encounter Details Date Type Department Care Team Description 03/27/2019 Clinical Communication Department of [facility] Chandni Urbina, Medicine, [place], C.N.P., Clinic, in [place] [address] [phone] Social History Tobacco Use Types Packs/Day Years [...] How often do you attend druze or islam Never 10/23/2020 services? 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 - 03/27/2019 10:21 AM CDT Forwarded to Chandni Telephone Encounter - Chelsea Alicia - 03/27/2019 7:38 AM CDT Pt is calling to give Chandni an update that her incision has opened a little bit and has some drainage.She didn't want to be seen and just said that Chandni wanted to be kept updated. If any questions pt canbe reached at [phone]. documented in this encounter Plan of Treatment Not on filedocumented as of this encounter Visit Diagnoses Not on filedocumented in this encounter Additional Health Concerns Assessment Noted Time PHQ-9 Depression Total Score: 10 11/08/2018 12:47 PM C DT documented as of this encounter Care Teams Seam Presser Relationship Specialty Start Date End Date Chandni Urbina, TOBI, C.N.P., PCP - General Family Medicine 06/06/19 BobbiPGonzalo [address] [place] [address] documented as of this encounter
--- OUTSIDE RECORDS SUMMARY | 2022-04-07 13:14 | XMS_ITS | Encounter Summary ---
:1995 Author Organization [facility] Address [address] [place] [address] Care Team Providers Name Role Phone Chandni Urbina APRN, C.N.P., D.N.P. Primary Care Provider Reason for Visit Reason Comments nurse only flu shot Appointment Request (Routine) - Closed Specialty Diagnoses / Procedures Referred By Contact Refer red To Contact Family Medicine Referral ID Status Reason Start Date Expiration Date Visits Requ ested Visits Authorized [id number] Closed 05/18/2019 05/17/2020 1 1 Encounter Details Date Type Department Care Team Description 05/18/2019 Immunization Department of Family Chandni Urbina APRN, C.N.P., D.N.P. [address] [place] [phone] Immunization Only Medicine, Katty Peter, RGonzaloNGonzalo [address] [place] [phone] (Primary Dx) [facility], in [address] [phone] Social History Tobacco Use Types [...] 10/23/2020 relatives? How often do you attend nondenominational or scientology Never 10/23/2020 services? 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 [address] [place] [phone] documented as of this encounter
--- OUTSIDE RECORDS SUMMARY | 2022-04-07 13:14 | XMS_ITS | Encounter Summary ---
:1995 Author Organization [facility] Address [address] [place] [address] Care Team Providers Name Role Phone Chandni Urbina APRN C.N.P., D.N.P. Primary Care Provider Reason for Referral Outpatient (Routine) - Closed Specialty Diagnoses / Procedures Referred By Contact Refer red To Contact Orthopedic Surgery Edwige Lundberg APRN, [facility] C.N.P., D.N.P. [address] [place] [phone] Referral ID Status Reason Start Date Expiration Date Visits Requ ested Visits Authorized [id number] Closed 04/03/2019 04/02/2020 1 1 Reason for Visit Reason Comments Fracture Follow-up Infection Outpatient (Routine) - Closed Specialty Diagnoses / Procedures Referred By Contact Modesta mullen To Contact Orthopedic Surgery Diagnoses Follow Up Examination Postoperative Visit Cellulitis Leg Left Chandni Urbina [facility] [place], C.N.P., D.N.P. [address] [place] [phone] Referral ID Status Reason Start Date Expiration Date Visits Requ ested Visits Authorized [id number] Closed 03/26/2019 03/25/2020 1 1 Encounter Details Date Type Department Care Team Description 04/03/2019 Office Visit Department of Edwige Lundberg, Follow Up E xaramya Postoperative Visit; Orthopedic Surgery in [place], C.N.P., Cellu litis Leg Left [place], D.N.P. [address] [place] [phone] Social History Tobacco Use Types Packs/Day [...] 10/23/2020 relatives? How often do you attend zoroastrianism or voodoo Never 10/23/2020 services? Do you belong to any clubs or organizations such as No 12/04/2019 zoroastrianism groups, unions, fraternal or athletic groups, or [...] minutes do you engage in exercise at th is 40 min 12/04/2019 level? 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 - 04/03/2019 2:00 PM CDT Sary is a pleasant 24-year-old female who is 6 weeks status post ORIF left ankle fracture with syndesmotic fixation. She did have some postoperative infection at now appears to be clearing on the distal portion of her incision. She denies any particular pain at this time. She did have an x-ray on her last visit. Physical exam-left ankle surgical incision is healing well on the very distal portion she has no particular redness but a small scabbed area. She has excellent sensation and minor effusion noted. Diagnostic studies reviewed x-ray which shows stable alignment of ankle and fracture area with healing noted. Impression and plan-Xin is a pleasant 24-year-old who is status post ORIF of ankle fracture and syndesmotic fixation. Will have her slowly progress to 25% weight-bearing, increasing to 50% weight-bearing in the next couple of weeks. When she is at 50% weight-bearing feeling comfortable we will go ahead and re-x-ray her if again her ankle is stable will proceed with 75% and 100% weight- bearing and start weaning to a shoe from there. We answered her questions and will plan to see her back in 3 weeks. documented in this encounter Plan of Treatment Scheduled Referrals Name Type Priority Associated Order Schedule Diagnoses Orthopedic Surgery Outpatient Referral Routine Ex pected: office visit 04/24/2019 (clinic) (Approximate), Expires: 04/03/2022 documented as of this encounter Results DX Ankle Left 3+ Views (04/27/2019 10:07 AM CDT) Anatomical Region Laterality Modality Lower Extremity, Ankle, Musculoskeletal RST LOS, Left Digital Radiography Musculoskeletal ARZ LOS, Muskuloskeletal FLA LOS Specimen (Source) Anatomical Collection Method Collection Time Re ceived Time Location / / Volume Laterality 04/27/2019 10:47 AM CDT Impressions 04/27/2019 10:49 AM CDT Comparison 03/26/19. ORIF with distal fibular plate and screw fixation and syndesmotic fixation device . Healing and unchanged position of distal fibular fracture. No hardware com plications. Normal alignment. Narrative 04/27/2019 10:49 AM CDT EXAM: DX ANKLE LEFT 3+ VIEWS Procedure Note Dom Zepeda M.D. - 04/27/2019 EXAM: DX ANKLE LEFT 3+ VIEWS IMPRESSION: Comparison 03/26/19. ORIF with distal fib ular plate and screw fixation and syndesmotic fixation device . Healing and unchanged position of distal fibular fracture. No hardware com plications. Normal alignment. Edwige Lundberg APRN, C.N.P., D.N.P. IMG DIAGNOSTIC IMAG ING PROCEDURES documented in this encounter Visit Diagnoses Diagnosis Follow Up Examination Postoperative Visi t Cellulitis Leg Left Follow Up Examination Postoperative Visi t Cellulitis Leg Left documented in this encounter Additional Health Concerns Assessment Noted Time PHQ-9 Depression Total Score: 10 11/08/2018 12:47 PM C DT documented as of this encounter Care Teams Event Marketing Representative Relationship Specialty Start Date End Date Chandni Urbina, TOBI, C.N.P., PCP - General Family Medicine 06/06/19 D.N.P. [address] [place] [phone] documented as of this encounter
--- OUTSIDE RECORDS SUMMARY | 2022-04-07 13:14 | XMS_ITS | Encounter Summary ---
:1995 Author Organization [facility] Address [address] [place] [address] Care Team Providers Name Role Phone Chandni Urbina APRN, C.N.Mana, D.N.P. Primary Care Provider Reason for Visit Reason Onset Date Comments Fax number 05/08/2019 Encounter Details Date Type Department Care Team Description 05/08/2019 Clinical Communication Department of Edwige Lundberg F ax number Orthopedic Surgery in [place] C.N.Mana, [place], D.N.P. [address] [phone] Social History Tobacco Use Types Packs/Day Years [...] How often do you attend pentecostalism or gnosticist Never 10/23/2020 services? 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 - 05/08/2019 2:51 PM CDT Letter sent per Sary's request. She state she previously filled out an CINTHIA to release, not yet scanned in chart, she gives verbal okay. She has no further questions or concerns at this time. She willfollow prn. Telephone Encounter - Nena Zelaya R.N. - 05/08/2019 9:45 AM CDT I will take care of this I received a message on my phone from patient requesting a return to work note. I will discuss with Edwige and fax when complete. Telephone Encounter - Carmencita Jain L.P.NGonzalo - 05/08/2019 9:00 AM CDT What needs to be faxed? The patient has not been seen since 04/27/19 Telephone Encounter - Mayra Zavaleta - 05/08/2019 8:07 AM CDT Reason for Communication: Sary say the fax number for [facility]. Attn Kaya Meng Current Can Nursing/Provider leave a detailed message: yes Did the patient refuse triage through Nurse line? (for symptom based concerns): Action Needed: fax number Name of Medication (if relevant): documented in this encounter Plan of Treatment Not on filedocumented as of this encounter Visit Diagnoses Not on filedocumented in this encounter Additional Health Concerns Assessment Noted Time PHQ-9 Depression Total Score: 10 11/08/2018 12:47 PM C DT documented as of this encounter Care Teams College Hire Relationship Specialty Start Date End Date Chandni Urbina APRN, C.N.P., PCP - General Family Medicine 06/06/19 D.N.P. [address] [place] [phone] documented as of this encounter
--- OUTSIDE RECORDS SUMMARY | 2022-04-07 13:14 | XMS_ITS | Encounter Summary ---
:1995 Author Organization [facility] Address [address] [place] [address] Care Team Providers Name Role Phone Ary Purcell P.A.-C., P.A. Primary Care Provider Ailin diaz Encounter Details Date Type Department Care Team Description 12/31/2019 Orders Only RST PCP [facility] MNT Ary Purcell P.Ramos.-C. , P.A. Social History Tobacco Use Types Packs/Day Years [...] How often do you attend christianity or advent Never 10/23/2020 services? 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 PCP - General 06/07/19 01/14/22 documented as of this encounter
--- OUTSIDE RECORDS SUMMARY | 2022-04-07 13:14 | XMS_ITS | Encounter Summary ---
:1995 Author Organization [facility] Address [address] [place] [address] Care Team Providers Name Role Phone Ary Purcell P.A.-C., P.A. Primary Care Provider Unavaila ble Reason for Visit Reason Comments Follow-up continues Since 08/06/2019 w ith sore throat and cough, nasal congestion, chills Appointment Request (Routine) - Closed Specialty Diagnoses / Procedures Referred By Contact Refer red To Contact Family Medicine Referral ID Status Reason Start Date Expiration Date Visits Requ ested Visits Authorized [id number] Closed 09/03/2019 09/02/2020 1 1 Encounter Details Date Type Department Care Team Description 09/03/2019 Office Visit Department of Family Ary Purcell Inf ection Upper Respiratory (Primary Dx); Medicine, [place] Gabriel, P.A. Phar yngitis Acute; Clinic, in [facility] Intermittent (HCC) [address] [phone] Social History Tobacco Use Types Packs/Day Years [...] 10/23/2020 relatives? How often do you attend yarsani or yazidism Never 10/23/2020 services? Do you belong to any clubs or organizations such as No 12/04/2019 yarsani groups, unions, fraternal or athletic groups, or [...] or the highest technical, or vocational p rogram degree you have received? 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 - 09/03/2019 11:00 AM CST May use OTC antihistamine (Zyrtec or Claritin) or similar for the next few days. May use OTC Flonase twice per day to help with nasal congestion and postnasal drip. Cold/cough remedies also available OTC - DayQuil/NyQuil, Mucinex, Sandar-[place] Cold/Flu, Robitussin DM, cough/throat lozenges, honey. May use OTC analgesics such as Tylenol/ibuprofen for low grade fevers and body aches. Increase fluid intake. Get plenty of rest. Cover your cough. Wash hands frequently. Follow up if symptoms worsen or fail to improve over the next several days. OPRESS OPERATOR documented in this encounter Progress Notes Ary Purcell P.A.-C. 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 HISTORY OF PRESENT ILLNESS Carly Joseph LPN is a 24 y.o. female who presents with upper respiratory symptoms. I last saw her in clinic on August 21, 2019. At that time she had been having approximately 2 weeks of sore throat and nasal congestion. I strep swab was performed and negative. We treated with conservative management. Patient is a non nonsmoker, but does have a history of asthma. Today, she returns with ongoing symptoms. She states she is not feeling but are worse, just the same. She continues with sinus congestion, sore throat, her left side is worse than her right. She also has chills and cough. She denies any facial pain, ear pain, nausea, vomiting or diarrhea. REVIEW OF SYSTEMS A brief review of [...] times a day as needed. ??? fluticasone propion-salmeterol (AIRDUO RESPICLICK) 232-14 mcg/actuation inhaler Inhale 1 puff 2 (two) times a day. (Patient not taking: Reported on 08/21/2019 ) ??? JOLESSA 0.15 mg-30 mcg (91) per tablet TAKE ONE TABLET BY MOUTH EVERY DAY ??? LORazepam (ATIVAN) 0.5 mg tablet 1/2 tab po q AM and 1 tab po q PM (Patient taking differently: 0.5 mg 2 (two) times a day as needed. 1/2 tab po q AM and 1 tab po q PM ) Allergies Allergen Reactions ??? Cefixime Other (see comments) Unknown reaction as a child OBJECTIVE PHYSICAL EXAMINATION There were no vitals taken for this visit. There is no height or weight on file to calculate BMI. General: Patient is in no distress. Capable of full communication without difficulty. Patient is polite and cooperative. HEENT: Head: Normocephalic/atraumatic. Eyes: Sclerae and conjunctivae are clear. No periorbital erythema or swelling. EOM intact. Ears: Tympanic membranes are clear bilaterally with normal landmarks, normal light reflex. Canals are patent. Nose: Nasal turbinates are congested. Throat: Oral mucosa is pink and moist. Posterior pharynx is non-erythematous. Left tonsil mildly enlarged. Right tonsil within normal limits. No exudate. Neck: Mild cervical lymphadenopathy, left greater than right. Heart: Regular rate and rhythm. No murmurs noted. Lungs: Clear to auscultation bilaterally. No expiratory wheeze. No accessory muscles of respiration noted. Abdomen: Benign. DIAGNOSTICS Results for orders placed or performed in visit on 08/21/19 Strep Group A, PCR, Point of Care Result Value Ref Range Strep Group A, PCR, POCT Collected Strep Group A, PCR, Point of Care Result Value Ref Range Strep Group A, PCR, POCT Negative Negative ASSESSMENT / PLAN 1. Infection Upper Respiratory 2. Pharyngitis Acute As she has had ongoing symptoms for over 1 month, we will treat with an antibiotic today. Amoxicillin x7 days was prescribed. Encouraged her to take this with food as it could cause an upset stomach. 3. Asthma Mild Intermittent (HCC) Continue with albuterol as needed. Provided prescription for QVAR steroid inhaler to be used twice daily. She is not using her air duo as it was not effective as Advair. Advair is not well covered by her insurance. May use OTC antihistamine (Zyrtec or Claritin) [...] further needs atthis time. Ary Purcell P.A.-C. OPRESS OPERATOR documented in this encounter Plan of Treatment Not on filedocumented as of this encounter Visit Diagnoses Diagnosis Infection Upper Respiratory - Primary Pharyngitis Acute Asthma Mild Intermittent (HCC) documented in this encounter Additional Health Concerns Assessment Noted Time PHQ-9 Depression Total Score: 10 11/08/2018 12:47 PM C DT documented as of this encounter Care Teams Bulk Sealer Operator Relationship Specialty Start Date End Date Ary Purcell P.A.-C., P.A. PCP - General 06/07/19 01/14/22 documented as of this encounter
--- OUTSIDE RECORDS SUMMARY | 2022-04-07 13:14 | XMS_ITS | Encounter Summary ---
:1995 Author Organization [facility] Address [address] [place] [address] Care Team Providers Name Role Phone Chandni Urbina APRN, C.N.P., D.N.P. Primary Care Provider Encounter Details Date Type Department Care Team Description 03/19/2019 Orders Only Department of Orthopedic Chandni Urbina APRN, Surgery in [place], C.N.P., D.N .P. [address] [phone] [place] [address] [phone] Social History Tobacco Use Types Packs/Day Years [...] 10/23/2020 relatives? How often do you attend episcopal or sabianist Never 10/23/2020 services? 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 [address] [place] [phone] documented as of this encounter
--- OUTSIDE RECORDS SUMMARY | 2022-04-07 13:14 | XMS_ITS | Encounter Summary ---
:1995 Author Organization [facility] Address [address] [place] [address] Care Team Providers Name Role Phone Chandni Urbina APRN C.N.PGonzalo, D.N.P. Primary Care Provider Reason for Referral Outpatient (Routine) - Closed Specialty Diagnoses / Procedures Referred By Contact Refer red To Contact Orthopedic Surgery Diagnoses Follow Up Examination Postoperative Visit Cellulitis Leg Left Chandni Urbina, [facility] TOBI C.N.P., D.N.P. [address] [place] [address] Referral ID Status Reason Start Date Expiration Date Visits Requ ested Visits Authorized [id number] Closed 03/26/2019 03/25/2020 1 1 Encounter Details Date Type Department Care Team Description 03/26/2019 Office Visit Department of Ricki Corona M.D. [address] [place] [phone] Follow Up Examination Postoperative Visi t (Primary Dx); Orthopedic Surgery in Chandni Urbina APRN C.N.P., D.N.P. [address] [phone] Cellulitis Leg Left Boby Zaragoza [address] [phone] Social History Tobacco Use Types Packs/Day Years [...] How often do you attend moravian or denominational Never 10/23/2020 services? 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 - 03/26/2019 1:45 PM CDT SUBJECTIVE CHIEF COMPLAINT / REASON FOR VISIT Carly Lisbeth Joseph LPN is a 24 y.o. female who presents for evaluation of No chief complainton file.. HISTORY OF PRESENT ILLNESS Carly is a pleasant 24 y.o. female who is 5 weeks s/p open reduction/internal fixation of left ankle fracture with syndesmotic fixation. She is here today with concerns regarding increased redness and pain around the distal area of her incision. She denies any drainage. No fevers or chills. She has been compliant with nonweightbearing any using a knee scooter to get around. She has also been compliant with wearing her Cam boot at all times. OBJECTIVE PHYSICAL EXAMINATION General: Patient is in no distress. Capable of full communication without difficulty. Patient is polite and cooperative. Extremities: The distal portion of her left ankle incision is erythematous and swollen. Painful to the touch. The incision itself is well approximated without any drainage noted. She has excellent sensation distal to the surgical site. Neuro: Alert and oriented x3. DIAGNOSTICS LEFT ANKLE X-RAY IMPRESSION: Postoperative changes lateral plate and screw internal fixation distal fibula with syndesmotic repair, without evidence of hardware complication. Alignment unchanged. Symmetric ankle mortise. Talar dome appears intact. No new fracture. Comparison March 06, 2019. ASSESSMENT / PLAN #1 Follow Up Examination Postoperative Visit #2 Cellulitis Leg Left Carly is a pleasant 24 y.o. female who is 5 weeks s/p open reduction/internal fixation of left ankle fracture with syndesmotic fixation. X-ray today shows stable alignment of the hardware with complication. Given the increased redness pain and swelling around the distal portion of her incision, I opted to start a 10-day course of Keflex for mild/early cellulitis. Given her allergy to Cefixime, she will monitor closely for allergic reaction to Keflex and stop it and notify us immediately if she hasconcerns. She was encouraged to continue [id number] analgesics, ice, elevation and rest. She will continue to monitor closely for signs and symptoms of worsening infection, she will follow- up urgently if any arise. I'll plan to see her back in 1 week to check her incision. Once her cellulitis has resolved, she can start to work with PT on slow progression of weight bearing. documented in this encounter Plan of Treatment Scheduled Referrals Name Type Priority Associated Diagnoses Order S [facility] Orthopedic Surgery Outpatient Referral Routine Follow Up [place] Expected: Post Op (clinic) Postoperative V isit 04/02/2019, Cellulitis Leg Left Expires: 03/26/2022 documented as of this encounter Results DX [...] fracture. Comparison March 06, 2019. Chandni Urbina APRN C.N.P., D.N.P. IMG DIAGNOSTIC IM AGING PROCEDURES documented in this encounter Visit Diagnoses Diagnosis Follow Up Examination Postoperative Visi t - Primary Cellulitis Leg Left Follow Up Examination Postoperative Visi t documented in this encounter Additional Health Concerns Assessment Noted Time PHQ-9 Depression Total Score: 10 11/08/2018 12:47 PM C DT documented as of this encounter Care Teams Matrix Bath Attendant Relationship Specialty Start Date End Date Chandni Urbina APRN, C.N.P., PCP - General Family Medicine 06/06/19 D.N.P. [address] [phone] documented as of this encounter
--- OUTSIDE RECORDS SUMMARY | 2022-04-07 13:14 | XMS_ITS | Encounter Summary ---
:1995 Author Organization [facility] Address [address] [place] [address] Care Team Providers Name Role Phone Ary Purcell P.A.-C. P.AGonzalo Primary Care Provider Ailin diaz Encounter Details Date Type Department Care Team Description 08/20/2019 [facility] T[facility], [facility], in [address], [place] [address] [place] [address] Social History Tobacco Use Types Packs/Day Years [...] 10/23/2020 relatives? How often do you attend oriental orthodox or synagogue Never 10/23/2020 services? 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 PCP - General 06/07/19 01/14/22 documented as of this encounter
--- OUTSIDE RECORDS SUMMARY | 2022-04-07 13:14 | XMS_ITS | Encounter Summary ---
:1995 Author Organization [facility] Address [address] [place] [address] Care Team Providers Name Role Phone Chandni Urbina APRN C.N.Mana, D.N.P. Primary Care Provider Encounter Details Date Type Department Care Team Description 04/27/2019 Hospital Encounter Department of Edwige Lundberg Follo w Up Examination Postoperative Visit; Radiology in [place] TOBI C.N.PGonzalo, Celluli tis Leg [place], [place] D.N.P. [address] [place] [phone] Social History Tobacco Use Types Packs/Day Years [...] How often do you attend yarsanism or christian Never 10/23/2020 services? 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 documented as of this encounter Plan of Treatment Not on filedocumented as of this encounter Procedures Procedure Name Priority Date/Time Associated Diagnosis Comme nts DX ANKLE LEFT 3+ RAD - Routine 04/27/2019 10:07 Follow Up Result s for this VIEWS (most inpatients AM CDT Examination procedure a re in and all Postoperative Vi sit the results outpatients) Cellulitis Leg Left section. documented in this encounter Results DX [...] documented as of this encounter Care Teams Automobile Mechanic Helper Relationship Specialty Start Date End Date Chandni Urbina APRN, C.N.P., PCP - General Family Medicine 06/06/19 BaileeNGonzaloPGonzalo [address] [place] [phone] documented as of this encounter
--- OUTSIDE RECORDS SUMMARY | 2022-04-07 13:14 | XMS_ITS | Encounter Summary ---
:1995 Author Organization [facility] Address [address] [place] [address] Care Team Providers Name Role Phone Chandni Urbina APRN C.N.P., D.N.P. Primary Care Provider Reason for Visit Reason Comments Follow-up Imbedded suture Encounter Details Date Type Department Care Team Description 03/20/2019 Office Visit Department of Edwige Lundberg APRN, C.N.P., D.N.P. [address] [place] [phone] Open Reduction Orthopedic Surgery in Chandni Urbina APRN, C.N.P., D.N.P. [address] [place] [phone] Internal Fixation Hakeem Genao, Ankle Status P ost [place] (Primary Dx) [address] [place] [address] [place] [address] Social History Tobacco Use Types Packs/Day [...] often do you attend oriental orthodox or orthodox Never 10/23/2020 services? 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 HISTORY OF PRESENT ILLNESS Carly is a pleasant 24 y.o. female who is 4 weeks s/p ORIF of left ankle fracture with syndesmoticfixation. She continues to be non-weightbearing but is concerned about an imbedded suture. No concerns for infection. OBJECTIVE PHYSICAL EXAMINATION General: Patient is in no distress. Capable of full communication without difficulty. Patient is polite and cooperative. Extremities: Surgical incision is healing without any redness or swelling. A small suture is retained and poking through the superior aspect of her ankle incision. No drainage noted. No neurovascular compromise. No lower extremity edema noted. Neuro: Alert and oriented x3. ASSESSMENT / PLAN #1 Open Reduction Internal Fixation Ankle Status Post Carly is a very pleasant 24-year old who is 4 weeks s/p ORIF of left ankle fracture with syndesmotic fixation. She did have an imbedded suture which was trimmed back after the area was cleaned well with iodine. A steri-strip was placed over the area. Patient tolerated well. She continues to be non-we ightbearing on her LLE. She has a follow up visit already scheduled next week. She will monitor for s/s of infection and follow up urgently if any arise. documented in this encounter Plan of Treatment Not on filedocumented as of this encounter Visit Diagnoses Diagnosis Open Reduction Internal Fixation Ankle S tatus Post - Primary documented in this encounter Additional Health Concerns Assessment Noted Time PHQ-9 Depression Total Score: 10 11/08/2018 12:47 PM C DT documented as of this encounter Care Teams Banquet Waiter/Waitress Relationship Specialty Start Date End Date Chandni Urbina APRN, C.N.P., PCP - General Family Medicine 06/06/19 D.N.P. [address] [place] [phone] documented as of this encounter
--- OUTSIDE RECORDS SUMMARY | 2022-04-07 13:14 | XMS_ITS | Encounter Summary ---
:1995 Author Organization [facility] Address [address] [place] [address] Care Team Providers Name Role Phone Chandni Urbina APRN, C.NTeddy, D.N.P. Primary Care Provider Reason for Visit Reason Comments Follow-up Infection concerns, swelling , distal part of incision get red and hot Encounter Details Date Type Department Care Team Description 06/01/2019 Office Visit Department of Edwige Lundberg, Fracture An kle Closed Orthopedic Surgery in Guillermina BRITTONN.Mana, Initi al Left Bailee KebedeN.P. [address] [place] [phone] Social History Tobacco Use Types Packs/Day Years [...] often do you attend oriental orthodox or taoist Never 10/23/2020 services? 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 - 06/01/2019 10:30 AM CDT Sary is a very pleasant 24-year-old who is status post ORIF of her left ankle fracture with syndesmotic fixation on 02/20/19. She is back to work but has noted some increased swelling specially during her day at work she has in inner tube type swelling that is just above her sock she has been wearing compression socks to work but despite that continues to have the swelling. It does completely resolveon days off or by morning. Physical exam left ankle surgical incision is well healed. There is no tenderness to palpation. She has full range of motion of her ankle. There is minimal swelling noted today. Impression and plan-Sary is a pleasant 24-year-old who is status post ORIF of her ankle back in February. She continues to have issues with swelling she was concerned that possibly there is an infection however reassured her there is no signs of infection. I think this is mostly fluid and adequate compression as well as support to the ankle will be beneficial for her. At this time she will continue with compression stockings but will also add and home ankle brace while she is at work in hopes to help control some of the fluid. She will continue to elevate as needed and report if she has any new or worsening symptoms. Todays visit was 16 minutes long of which 11 minutes counseling and treatment options for ankle swelling. documented in this encounter Plan of Treatment Not on filedocumented as of this encounter Visit Diagnoses Diagnosis Fracture Ankle Closed Initial Left documented in this encounter Additional Health Concerns Assessment Noted Time PHQ-9 Depression Total Score: 10 11/08/2018 12:47 PM C DT documented as of this encounter Care Teams Lap Winding Machine Operator Relationship Specialty Start Date End Date Chandni Urbina APRN, C.N.P., PCP - General Family Medicine 06/06/19 D.N.P. [address] [place] [phone] documented as of this encounter
--- OUTSIDE RECORDS SUMMARY | 2022-04-07 13:15 | XMS_ITS | Encounter Summary ---
:1995 Author Organization [facility] Address [address] [place] [id number] Care Team Providers Name Role Phone Chandni Urbina APRN C.N.P., D.N.P. Primary Care Provider Reason for Referral Outpatient (Routine) - Closed Specialty Diagnoses / Procedures Referred By Contact Refer red To Contact Orthopedic Surgery Diagnoses Fracture Ankle Closed Initial Left Chandni Urbina, [facility] TOBI, C.N.P., D.N.P. [address] [place] [address] Referral ID Status Reason Start Date Expiration Date Visits Requ ested Visits Authorized [id number] Closed 02/20/2019 02/20/2020 1 1 Scheduling Instructions Ordered images/tests are associated with this appointment. Reason for Visit Auth/Cert Specialty Diagnoses / Procedures Referred By Contact Refer red To Contact Diagnoses Fracture Ankle Closed Initial Left Fracture Ankle Closed Initial Left [S82.892A] Procedures CT CLSD TX DIST FIB WO MANIP OPEN REDUCTION INTERNAL FIXATION ANKLE Referral ID Status Reason Start Date Expiration Date Visits Requ ested Visits Authorized [id number] 1 1 Encounter Details Date Type Department Care Team Description 02/20/2019 Hospital Encounter [facility] MAIN OR Bruno Spivey Fracture Ankle [id number] [facility] Jenn Baker M.D. Closed Initial Left BLVD [address] (Primary Dx) [place] [id number] Social History Tobacco Use Types Packs/Day Years [...] 10/23/2020 relatives? How often do you attend yazidism or mormonism Never 10/23/2020 services? Do you belong to any clubs or organizations such as No 12/04/2019 yazidism groups, unions, fraternal or athletic groups, or [...] or getting things needed for daily living? 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 Last Filed Vital Signs Vital Sign Reading Time Taken Comments Blood Pressure 109/77 02/20/2019 4:49 PM CDT Pulse 67 02/20/2019 4:36 PM CDT Temperature 36.1 ??C (97 ??F) 02/20/2019 4:49 PM CDT Respiratory Rate 16 02/20/2019 4:49 PM CDT Oxygen Saturation 98% 02/20/2019 4:49 PM CDT Inhaled Oxygen Concentration - - Weight 109 kg (240 lb) 02/20/2019 1:57 PM CDT Height 167.6 cm (5' 6) 02/20/2019 1:57 PM CDT Body Mass Index 38.74 02/20/2019 1:57 PM CDT documented in this encounter Discharge Instructions AttachmentsThe following attachments cannot be sent through Care Everywhere.Care Following Foot Surgery ([place]ivian)Postoperative Home Instructions ([place]) documented in this encounter Medications at Time of Discharge Medication Sig Dispensed Refills Start Date End Date ondansetron (ZOFRAN) 4 Take 1 tablet (4 mg 20 tablet 0 07/12/201802/26/2019 mg tablet total) by mouth every 8 (eight) hours as needed for nausea or vomiting for up to 10 days. escitalopram (LEXAPRO) 1/2 tab po q AM X 5 100 tablet 3 09/1610/31/2019 20 mg days, then 1 tab po q tabletIndications: AM Anxiety Generalized Disorder levonorgestrel-ethinyl Take 1 tablet by mouth 91 tablet 3 0 03/08/2018 02/27/2019 estradiol (SEASONALE) daily. 0.15-mg-30 mcg per tablet albuterol (ACCUNEB) Take 3 mL (2.5 mg 180 mL 1 9 08/13/2021 2.5 mg /3 mL nebulizer total) by nebulization solution every 4 (four) hours as needed for wheezing. albuterol (VENTOLIN Inhale 2 puffs every 4 2 Inhaler 3 09/1507/08/2019 HFA) 90 mcg/actuation (four) hours as needed inhaler for wheezing. fluticasone Administer 2 sprays 0 07/18/201410/13 (for_FLONASE) 50 into affected mcg/actuation nasal nostril(s) 2 (two) spray times a day as needed. fluticasone Inhale 1 puff 2 (two) 1 each 3 10/25/2018 propion-salmeterol times a day. (AIRDUO RESPICLICK) 232-14 mcg/actuation inhaler LORazepam (ATIVAN) 0.5 1/2 tab po q AM and 1 50 tablet 2 09/09/2020 mg tablet tab po q PM oxyCODONE (ROXICODONE) Take 1-2 tablets (5-10 40 tablet 0 0 02/20/2019 03/06/2019 5 mg immediate release mg total) by mouth tabletIndications: every 4 (four) hours Prolonged Acute as needed for pain Pain/Traumatic Injury Indication: Prolonged Acute Pain/Traumatic Injury. documented as of this encounter H&P Notes Bruno Spivey M.D. - 02/20/2019 5:43 PM CDT INTERVAL HISTORY AND PHYSICAL PRE-PROCEDURE UPDATE H&P reviewed. The patient was examined and there are no significant changes to the H&P. I discussed with this patient the Risks, Benefits, Alternatives of treatment for their orthopedic condition at length today. The patient understands these. All questions were answered and they desire to precede with surgical treatment. Bruno Spivey M.D. Source Note - Ashleigh Talley P.A.-C. - 01/23/2019 1:30 PM CDT SUBJECTIVE CHIEF COMPLAINT/REASON FOR VISIT Carly Joseph is a 24 y.o. female who presents for evaluation of Sore Throat (For a weeknow, states it is effecting her breathing/asthma ). HISTORY OF PRESENT ILLNESS Patient is a 24-year-old female with current medical problems including asthma who presents today for evaluation of sore throat and shortness of breath. She has been ill for the past week. She is having sore throat, chills, headache, nasal congestion and shortness of breath. She notes she initially thought this was allergies but her shortness of breath ahs been progressing and she is having chills aswell. She has used Mucinex, albutoerl, ibuprofen and Tylenol for symptoms. She denies fevers. The following portions of the patient's history were reviewed and updated as appropriate: allergies,current medications, medical history, social history and problem list. REVIEW OF SYSTEMS A brief review of systems was negative except for that mentioned in the history of present of illness. CURRENT MEDICATIONS Current Outpatient Medications Medication Sig ??? albuterol (ACCUNEB) 2.5 mg /3 mL nebulizer solution Take 3 mL (2.5 mg total) by nebulization every 4 (four) hours as needed for wheezing. ??? albuterol (VENTOLIN HFA) 90 mcg/actuation inhaler Inhale 2 puffs every 4 (four) hours as needed for wheezing. ??? escitalopram (LEXAPRO) 20 mg tablet 1/2 tab po q AM X 5 days, then 1 tab po q AM ??? fluticasone (for_FLONASE) 50 mcg/actuation nasal spray Administer 2 sprays into affected nostril(s) 2 (two) times a day as needed. ??? fluticasone propion-salmeterol (AIRDUO RESPICLICK) 232-14 mcg/actuation inhaler Inhale 1 puff 2 (two) times a day. ??? levonorgestrel-ethinyl estradiol (SEASONALE) 0.15-mg-30 mcg per tablet Take 1 tablet by mouth daily. ??? LORazepam (ATIVAN) 0.5 mg tablet 1/2 tab po q AM and 1 tab po q PM (Patient taking differently: 0.5 mg 2 (two) times a day as needed. 1/2 tab po q AM and 1 tab po q PM ) ??? fluticasone-salmeterol (ADVAIR HFA) 115-21 mcg/actuation inhaler Inhale 2 puffs 2 (two) times a day. Rinse mouth with water after use to reduce aftertaste and incidence of candidiasis. Do not swallow. ALLERGIES/CONTRAINDICATIONS Allergies Allergen Reactions ??? Cefixime Other (see comments) Unknown reaction as a child OBJECTIVE PHYSICAL EXAMINATION Vital Signs: BP 126/73 (BP Location: Left arm, Patient Position: Sitting, Cuff Size: Large) Pulse 66 Temp 36.7 ??C (Temporal) Resp 16 Ht 169.8 cm Wt 110 kg SpO2 98% BMI 37.98 kg/m?? Body mass index is 37.98 kg/m??. General: Patient is in no distress. HEENT: Normocephalic. PERRL, Canals patent, bilateral TMs are nonerythematous and non-bulging. Nasalmucosa is nonerythematous and not boggy, turbinates bilaterally are normal in appearance, Oropharynxwithout lesion of mucosa. Pharynx rises symmetrically without exudate or erythema. Neck: No cervical or supraclavicular lymphadenopathy Heart: Regular rate and rhythm. No murmurs, gallops or rubs noted. Lungs: No obvious crackles or rhonchi, No expiratory wheezes. Decreased breath sounds throughout. Noaccessory muscles of respiration noted. Neuro: Alert and nonfocal, moving all 4 extremities Psych: Appropriate affect ASSESSMENT/PLAN #1 Asthma Mild Intermittent With Acute Exacerbation (HCC) Patient's history and exam is consistent with acute asthma exacerbation. Due to interaction with herLexapro azithromycin was not used however doxycycline was along with a prednisone taper. She can continue with symptomatic treatments as she has been at home. Mucinex for congestion. Cepacol lozenges (numbing) or salt water gargles to help with sore throat. Follow-up as needed if not improving. #2 Sore Throat As noted above. Ashleigh Talley P.A.-C. documented in this encounter OR Notes Op Note - Bruno Spivey M.D. - 02/20/2019 3:40 PM CDT FULL OP NOTE Procedure(s) (LRB): OPEN REDUCTION INTERNAL FIXATION ANKLE (Left) Surgeon(s) and Role: * Bruno Spivey M.D. - Primary Anesthesia Type: Regional Pre-Operative Diagnosis: Fracture Ankle Closed Initial Left [S82.285Z] Full Operative Note Details PRE-OPERATIVE DIAGNOSIS Left ankle Church B fracture. POST-OPERATIVE DIAGNOSIS Left ankle Church B fracture with syndesmotic disruption. PROCEDURE(S) Open reduction/internal fixation of left ankle fracture with syndesmotic fixation. SURGEON(S) Bruno Spivey M.D. ANESTHESIA TYPE Spinal anesthesia. UTILITY SALES REPRESENTATIVE: Chandni Urbina APRN, C.N.P., D.N.P. I requested Chandni Urbina to assist with ORIF of the left ankle. Assistance was medically necessary in order to safely perform the procedure without increased blood loss or morbidity. Assistance was provided through positioning, instrumentation, and retraction of incisions for better visualization of underlying structures and cauterization for hemostasis. Assistance was also provided through wound closure, instillation of anesthetic, application of sterile dressing, and safe transport from the operative suite. INDICATIONS: Carly is a 24-year-old woman who sustained an injury to her left ankle. X-rays demonstrated a Church B ankle fracture with medial clear space widening. We discussed risks, benefits, alternatives of open reduction and internal fixation of this fracture with her. She understands and desires to proceed with surgery. DESCRIPTION OF PROCEDURE The patient was brought to the operating room and placed on the operating room table in and seated position. Spinal anesthesia was smoothly induced. She was then placed in supine position. Tourniquet was placed on her left thigh. Left leg was then prepped and draped in sterile fashion. Leg was exsanguinated. Tourniquet inflated to 250 mmHg. A longitudinal incision was made on the lateral aspect of the ankle, brought down through subcutaneous tissue to the fracture site. The fracture site was then identified. The fracture was then reduced. Once it was reduced, 1 interfragmentary screw was then placed. Once that was completed, a plate was then placed across the fracture, reducing the fracture, holding the fracture in position quite nicely. Once that plate was placed, we then tested syndesmosis, noted to have widening between the tibia and fibula, consistent with syndesmotic disruption. We therefore drilled 1 hole across from the plate on the fibula, across the tibia and placed the TightRope device. Once that was in place and we had reduced the syndesmosis, we tightened this down and cut this off. The incision was then copiously irrigated. Final fluoroscopic images demonstrated the fracture to be overall excellently aligned. The subcutaneous tissues were then closed using 3-0 Vicryl in interrupted fashion, followed by closure of the skin using 3-0 nylon. The skin was then washed and dried. A nonadherent dressing was applied, followed by a CAM walker. Tourniquet was let down. Patient was transferred to the recovery room in good condition. Needle and sponge counts were correct. Specimens None Drains Estimated Blood Loss None Implants Implant Name Type Inv. Item Serial No. Auto Glass Technician Lot No. LRB No. Used Knotless TightRope Syndesmosis Repair Implant, Stainless Steel Ankle Implant Arthrex [id number] FTHRD LCK 4.0X16 - [id number] Hardware e.g. pins/screws/rods SCRW LCP ST FTHRD LCK 4.0X16 Depuy Synthes Left [address] FTHRD LCK 4.0X18 - [id number] Hardware e.g. pins/screws/rods SCRW LCP ST FTHRD LCK 4.0X18 Depuy Synthes Left 1 PLT FIB LCD 1/3 TUB 7H LCK 85 - [id number] Hardware e.g. pins/screws/rods PLT FIB LCD 1/3 TUB 7H LCK 85 Depuy Synthes Left [address] FTHRD 3.5X24 - [id number] Hardware e.g. pins/screws/rods SCRW DCP ST FTHRD 3.5X24 Depuy Synthes Left [address] FTHRD 3.5X10 - [id number] Hardware e.g. pins/screws/rods SCRW DCP ST FTHRD 3.5X10 Depuy Synthes Left [address] FTHRD 3.5X12 - S204.012 - [id number] Ankle Implant SCRW LCD ST FTHRD 3.5X12 204.012 Depuy Synthes Left 2 Intra-op Medications Date/Time Order Dose Route Action Action by 02/20/2019 1534 clindamycin in D5W IVPB 600 mg (CLEOCIN) 600 mg intravenous Given Dusty De Souza M.D. Brief Op Note - Bruno Spivey M.D. - 02/20/2019 3:40 PM CDT BRIEF OP NOTE Procedure(s) (LRB): OPEN REDUCTION INTERNAL FIXATION ANKLE (Left) Surgeon(s) and Role: * Bruno Spivey M.D. - Primary Deputy Sheriff [id number] Handler: Chandni Urbina, TOBI, C.N.P., D.N.P. Anesthesia Type Regional Pre-operative Diagnosis * Fracture Ankle Closed Initial Left [T83.231C] Brief Operative Note Details Specimens None Drains None Estimated Blood Loss None Implants Implant Name Type Inv. Item Serial No. Auto Glass Technician Lot No. LRB No. Used Knotless TightRope Syndesmosis Repair Implant, Stainless Steel Ankle Implant Arthrex [id number] FTHRD LCK 4.0X16 - [id number] Hardware e.g. pins/screws/rods SCRW LCP ST FTHRD LCK 4.0X16 Depuy Synthes Left [address] FTHRD LCK 4.0X18 - [id number] Hardware e.g. pins/screws/rods SCRW LCP ST FTHRD LCK 4.0X18 Depuy Synthes Left 1 PLT FIB LCD 1/3 TUB 7H LCK 85 - [id number] Hardware e.g. pins/screws/rods PLT FIB LCD 1/3 TUB 7H LCK 85 Depuy Synthes Left [address] FTHRD 3.5X24 - [id number] Hardware e.g. pins/screws/rods SCRW DCP ST FTHRD 3.5X24 Depuy Synthes Left [address] FTHRD 3.5X10 - [id number] Hardware e.g. pins/screws/rods SCRW DCP ST FTHRD 3.5X10 Depuy Synthes Left [address] FTHRD 3.5X12 - S204.012 - [id number] Ankle Implant SCRW LCD ST FTHRD 3.5X12 204.012 Depuy Synthes Left 2 Bruno Spivey M.D. documented in this encounter Plan of Treatment Scheduled Referrals Name Type Priority Associated Order Schedule Diagnoses Orthopedic Surgery Outpatient Referral Routine Fracture Ankle Expected: Post Op (clinic) - Closed Initial Left with surgical (Approximate), service Expires: 02/20/2022 documented as of this encounter Procedures Procedure Name Priority Date/Time Associated Comments Diagnosis FL FLUORO LESS RAD - Routine 02/20/2019 4:10 Results f or this THAN 1 HOUR (most inpatients PM CDT procedure a re in and all the results outpatients) section. OPEN REDUCTION 02/20/2019 2:52 Fracture Ankle INTERNAL FIXATION PM CDT Closed Initial ANKLE Left documented in this encounter Results FL Fluoro Less Than 1 Hour (02/20/2019 4:10 PM CDT) Specimen (Source) Anatomical Location Collection Method / Collectio n Time Received Time / Laterality Volume Narrative [id number] - 02/20/2019 4:11 PM CDT This exam does not require a radiologist review or interpretation. Please refer to the patient's medical record on this date for clinical details. Bruno FINLEY FLUOROSCOPY PROCEDURES Performing Organization Address City/State/ZIP Code Phon e Number [id number] documented in this encounter Visit Diagnoses Diagnosis Fracture Ankle Closed Initial Left - Deirdre barreto documented in this encounter Admitting Diagnoses Diagnosis Fracture Ankle Closed Initial Left documented in this encounter Administered Medications Inactive Administered Medications - up to 3 most recent administrations Medication Order MAR Action Action Date Dose Rate Site acetaminophen tablet 1,000 mg Given 02/20/2019 2:03 PM CDT 1,000 mg (TYLENOL) 1,000 mg, oral, Once, On Tue02/20/19 at 1345, For 1 dose, Pre-Op lactated ringers Rate/Dose Verify 02/20/2019 2:53 PM CDT 20 mL/hr, intravenous, Continuous, Starting on Tue02/20/19 at 1345, Pre-Op New Bag 02/20/2019 2:15 PM CDT 20 mL/hr 20 mL/hr oxyCODONE IR tablet 10 mg (ROXICODONE) 10 mg, oral, Every 4 hours PRN, severe p ain or score 7-10 of 10, Starting on Tue02/20/19 at 1645, PACU & Post-Op, Second l ine therapy. If patient is greater than 7 after 2 hours, call service for new order. oxyCODONE IR tablet 5 mg (ROXICODONE) 5 mg, oral, Every 4 hours PRN, moderate pain or score 4-6 of 10, Starting on Tue02/20/19 at 1645, PACU & Post-Op, Second line therapy traMADol tablet 100 mg (ULTRAM) 100 mg, oral, Every 6 hours PRN, moderat e pain or score 4-6 of 10, severe pain or score 7-10 of 10, Starting on Tue02/20/19 at 1645, PACU & Post-Op, First line therapy or for pain greater than comfort goal (not to exceed 400 mg in 24 hours)., Drug Monitoring Program: Pharmacist to anabela djust medication dosing based on indication and drug clearance factors. traMADol tablet 50 mg (ULTRAM) 50 mg, oral, Every 6 hours PRN, mild pain or score 1-3 of 10, Starting on Tue02/20/19 at 1645, PACU & Post-Op, Firs t line therapy, Drug Monitoring Program: Pharmacist to adjust medication dosing based on indica tion and drug clearance factors. documented in this encounter Active and Recently Administered Medications Times are shown in CDT. Scheduled Medication Order 02/18/2019 02/19/2019 02/20/2019 acetaminophen tablet 1,000 mg (TYLENOL) (COMPLETED) 1403 (Given - Provider: Kamla Ritter R.N.) 1,000 mg, oral, Once, On Tue02/20/19 at 1345, For 1 dose, Pre-Op clindamycin in D5W IVPB 600 mg (CLEOCIN) (COMPLETED) 1534 (Given - Provider: Pavan De Souza APRN, TURNING SANDER TENDER) 600 mg (rounded from 825 mg = 7.5 mg/kg ? 110 kg), intravenous, at 100 mL/hr, Administer over 30 Minutes, Once, On Tue02/20/19 at 1345, For 1 dose, Intra-Op, Preoperatively within 1 hour prior to surg ic al incision premix bag, Indications: Prophylaxis, surgical Continuous Medication Order 02/18/2019 02/19/2019 02/20/2019 lactated ringers 1415 (New Bag - Provider: Kamla Ritter R.N.)1453 (Rate/Dose Verify - Provider: Pavan De Souza APRN, TURNING SANDER TENDER)1626 (Anesthesia Volume Adjustment - Provider: Pavan De Souza APRN, CHRIS) 20 mL/hr, intravenous, Continuous, Starting on Tue02/20/19 at 134 5, Pre-Op NaCl 0.9% infusion 1700 (Due) 50 mL/hr, intravenous, at 50 mL/hr, Cont inuous, Starting Tue02/20/19 at 1700, PACU & Post-Op, Until tolerating oral diet PRN Medication Order 02/18/2019 02/19/2019 02/20/2019 dexamethasone injection 4 mg (DECADRON) 4 mg, intravenous, Once as needed, nause a, vomiting, Starting Tue02/20/19 at 1645, For 1 dose, PACU & Post-Op, Give only if NOT given during the pre or intraoperative period. If ondansetron ordered, give dexamethasone with first dose of ondansetron. droperidol injection 0.625 mg (INAPSINE) 0.625 mg, intravenous, Every 6 hours PRN , nausea, vomiting, Starting Tue02/20/19 at 1645, For 48 hours, PACU & Post-Op, Total of 3 doses in 24 hour period. RASS must be -2 or higher to administer. Re assess for nausea or vomiting after at l east 10 minutes. If nausea or vomiting persists administer next ordered antiemetic medications (order for antiemetic medication administration ondansetron then droperidol then promethazine). HYDROmorphone injection 0.5 mg (DILAUDID) 0.5 mg, intravenous, Every 2 hour PRN, s evere pain or score 7-10 of 10, Starting Tue02/20/19 at 1645, For 2 doses, PACU & Post-Op, May administer if pain is greater than 7 after scheduled and PRN reg imen exhausted. If pain remains greater than 7, notify primary s ervice. naloxone injection 0.2 mg (NARCAN) 0.2 mg, intravenous, As needed, respirat ory depression, Starting Tue02/20/19 at 1645, For respiratory rate less than 8 breaths per minute or RASS score of -3, - 4, -5. Apply oxygen to keep oxygen saturations greater than 90% and notify service. ondansetron (PF) injection 4 mg (ZOFRAN) 4 mg, intravenous, Every 6 hours PRN, na usea, vomiting, Starting Tue02/20/19 at 1645, For 48 hours, PACU & Post-Op, Reassess for nausea or vomiting after at least 10 minutes. If nausea or vomiting pe rsists administer next ordered antiemeti c medications (order for antiemetic medication administration ondansetron then droperidol then promethazine). oxyCODONE IR tablet 10 mg (ROXICODONE)(Linked Group 1) 10 mg, oral, Every 4 hours PRN, severe p ain or score 7-10 of 10, Starting on Tue02/20/19 at 1645, PACU & Post-Op, Second line therapy. If patient is greater than 7 after 2 hours, call service for new order. oxyCODONE IR tablet 5 mg (ROXICODONE)(Linked Group 1) 5 mg, oral, Every 4 hours PRN, moderate pain or score 4-6 of 10, Starting on Tue02/20/19 at 1645, PACU & Post-Op, Second line therapy promethazine injection 6.25 mg (PHENERGAN) 6.25 mg, intravenous, Every 6 hours PRN, nausea, vomiting, Starting Tue02/20/19 at 1645, For 48 hours, PACU & Post-Op, RASS must be -2 or higher to administer. Reassess for nausea/vomiting after at l east 10 minutes. If nausea or vomiting p ersists administer next ordered antiemetic medications (order for antiemetic medication administration ondansetron then droperidol then promethazine). traMADol tablet 100 mg (ULTRAM)(Linked Group 2) 100 mg, oral, Every 6 hours PRN, moderat e pain or score 4-6 of 10, severe pain or score 7-10 of 10, Starting on Tue02/20/19 at 1645, PACU & Post-Op, First line therapy or for pain greater than comfor t goal (not to exceed 400 mg in 24 hours )., Drug Monitoring Program: Pharmacist to adjust medication dosing based on indication and drug clearance factors. traMADol tablet 50 mg (ULTRAM)(Linked Group 2) 50 mg, oral, Every 6 hours PRN, mild jose n or score 1-3 of 10, Starting on Tue02/20/19 at 1645, PACU & Post-Op, First line therapy, Drug Monitoring Program: Pharmacist to adjust medication dosing based on indication and drug clearance factors. Linked Groups Order Group 1: oxyCODONE IR tablet 5 mg (ROXICODONE)Jump to med 5 mg, oral, Every 4 hours PRN, moderate pain or score 4-6 of 10, Starting on Tue02/20/19 at 1645, PACU & Post-Op
Second line therapy
Or oxyCODONE IR tablet 10 mg (ROXICODONE)Jump to med 10 mg, oral, Every 4 hours PRN, severe p ain or score 7-10 of 10, Starting on Tue02/20/19 at 1645, PACU & Post-Op
Second line therapy. If patient is greater than 7 after 2 hours, call service for new order.
Group 2: traMADol tablet 50 mg (ULTRAM)Jump to med 50 mg, oral, Every 6 hours PRN, mild jose n or score 1-3 of 10, Starting on Tue02/20/19 at 1645, PACU & Post-Op
First line therapy
Drug Monitoring Program: Pharmacist to adjust me dication dosing based on indication and drug clearance factors. Or traMADol tablet 100 mg (ULTRAM)Jump to med 100 mg, oral, Every 6 hours PRN, moderat e pain or score 4-6 of 10, severe pain or score 7-10 of 10, Starting on Tue02/20/19 at 1645, PACU & Post-Op
First line therapy or for pain greater than comfort goal (not to exceed 400 mg in 24 hours).
Drug Monitoring Program: Pharmacist to adjust medication dosing based on indication and drug clearance factors. documented in this encounter Additional Health Concerns Assessment Noted Time PHQ-9 Depression Total Score: 10 11/08/2018 12:47 PM C DT documented as of this encounter Care Teams Supervisor Hand Workers Relationship Specialty Start Date End Date Chandni Ubrina, TOBI, C.N.P., PCP - General Family Medicine 06/06/19 D.N.P. [address] [place] [address] documented as of this encounter
--- OUTSIDE RECORDS SUMMARY | 2022-04-07 13:15 | XMS_ITS | Encounter Summary ---
:1995 Author Organization [facility] Address [address] [place] [address] Care Team Providers Name Role Phone Chandni Urbina APRN, C.N.P., D.N.P. Primary Care Provider Reason for Visit Auth/Cert Specialty Diagnoses / Procedures Referred By Contact Refer red To Contact Diagnoses Fracture Ankle Closed Initial Left Fracture Ankle Closed Initial Left [S82.892A] Procedures [place] [facility] [place] DIST FIB WO MANIP OPEN REDUCTION INTERNAL FIXATION ANKLE Referral ID Status Reason Start Date Expiration Date Visits Requ ested Visits Authorized [id number] 1 1 Encounter Details Date Type Department Care Team Description 02/20/2019 Surgery [facility] MAIN OR Bruno Spivey, OPEN REDUCTION INTERNAL [address] [place] [address] Richard FIXATION ANKLE [place], [place] [address] [place] [address] [place], [place] [phone] (Wo rk) Social History Tobacco Use Types [...] 10/23/2020 relatives? How often do you attend judaism or mormonism Never 10/23/2020 services? 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 encounter Last Filed Vital Signs Vital Sign Reading Time Taken Comments Blood Pressure 118/59 02/20/2019 4:25 PM CDT Pulse 69 02/20/2019 4:25 PM CDT Temperature 35.7 ??C (96.3 ??F) 02/20/2019 4:26 PM CDT Respiratory Rate 14 02/20/2019 4:25 PM CDT Oxygen Saturation 97% 02/20/2019 4:25 PM CDT Inhaled Oxygen Concentration - - Weight 109 kg (240 lb) 02/20/2019 1:57 PM CDT Height 167.6 cm (5' 6) 02/20/2019 1:57 PM CDT Body Mass Index 38.74 02/20/2019 1:57 PM CDT documented in this encounter Discharge Instructions AttachmentsThe following attachments cannot be sent through Care Everywhere.Care Following Foot Surgery (Scottish)Postoperative Home Instructions (Scottish) documented in this encounter Medications at Time of Discharge Medication Sig Dispensed Refills Start Date End Date ondansetron (ZOFRAN) 4 Take 1 tablet (4 mg 20 tablet 0 12/201802/26/2019 mg tablet total) by mouth every 8 (eight) hours as needed for nausea or vomiting for up to 10 days. escitalopram (LEXAPRO) 1/2 tab po q AM X 5 100 tablet 3 02/02/201910/31/2019 20 mg days, then 1 tab po [...] CDT SUBJECTIVE CHIEF COMPLAINT/REASON FOR VISIT Carly Josehp is a 24 y.o. female who presents [...] Pre-Operative Diagnosis: Fracture Ankle Closed Initial Left [S82.852A] Full Operative Note Details PRE-OPERATIVE DIAGNOSIS Left ankle Church B fracture. POST-OPERATIVE DIAGNOSIS Left ankle Church B fracture with syndesmotic disruption. PROCEDURE(S) Open reduction/internal fixation of left ankle fracture with syndesmotic fixation. SURGEON(S) Bruno Spivey M.D. ANESTHESIA TYPE Spinal anesthesia. FLARE BREAKER: Chandni Urbina APRN, C.N.P., D.N.P. I requested [...] Implant Name Type Inv. Item Serial No. Conditioner Tumbler Operator Lot No. LRB No. Used Knotless TightRope Syndesmosis Repair Implant, Stainless Steel Ankle Implant Arthrex [id number] FTHRD LCK 4.0X16 - [id number] Hardware e.g. pins/screws/rods SCRW LCP ST FTHRD LCK 4.0X16 Depuy Synthes Left [address] FTHRD LCK 4.0X18 - [id number] Hardware e.g. pins/screws/rods SCRW LCP ST FTHRD LCK 4.0X18 Depuy Synthes Left 1 PLT FIB LCD 1/3 TUB 7H LCK 85 - [id number] Hardware e.g. pins/screws/rods PLT FIB LCD 1/3 TUB 7H LCK 85 Depuy Synthes Left [address] FTHRD 3.5X24 - [id number] Hardware e.g. pins/screws/rods SCRW DCP ST FTHRD 3.5X24 Depuy Synthes Left [address] FTHRD 3.5X10 - [id number] Hardware e.g. pins/screws/rods SCRW DCP ST FTHRD 3.5X10 Depuy Synthes Left [address] FTHRD 3.5X12 - S204.012 - [id number] Ankle Implant SCRW LCD ST FTHRD 3.5X12 [...] Role: * Bruno Spivey M.D. - Primary Product Support Analyst: Chandni Urbina APRN, C.N.P., D.N.P. Anesthesia Type Regional Pre-operative Diagnosis * Fracture Ankle Closed Initial Left [S85.096O] Brief Operative Note Details Specimens None Drains None Estimated Blood Loss None Implants Implant Name Type Inv. Item Serial No. Conditioner Tumbler Operator Lot No. LRB No. Used Knotless TightRope Syndesmosis Repair Implant, Stainless Steel Ankle Implant Arthrex [id number] FTHRD LCK 4.0X16 - [id number] Hardware e.g. pins/screws/rods SCRW LCP ST FTHRD LCK 4.0X16 Depuy Synthes Left [address] FTHRD LCK 4.0X18 - [id number] Hardware e.g. pins/screws/rods SCRW LCP ST FTHRD LCK 4.0X18 Depuy Synthes Left 1 PLT FIB LCD 1/3 TUB 7H LCK 85 - [id number] Hardware e.g. pins/screws/rods PLT FIB LCD 1/3 TUB 7H LCK 85 Depuy Synthes Left [address] FTHRD 3.5X24 - [id number] Hardware e.g. pins/screws/rods SCRW DCP ST FTHRD 3.5X24 Depuy Synthes Left [address] FTHRD 3.5X10 - [id number] Hardware e.g. pins/screws/rods SCRW DCP ST FTHRD 3.5X10 Depuy Synthes Left [address] FTHRD 3.5X12 - S204.012 - [id number] Ankle Implant SCRW LCD ST FTHRD 3.5X12 [...] on this date for clinical details. Bruno Spivey M.D. IMG FLUOROSCOPY PROCEDURES Performing Organization Address City/State/ZIP Code Phon e Number [phone] documented in this encounter Visit Diagnoses Diagnosis Fracture Ankle Closed Initial Left - Deirdre mary lou Fracture Ankle Closed Initial Left documented in this encounter Admitting Diagnoses Diagnosis [...] 24 hours)., Drug Monitoring Program: Pharmacist to a djust medication dosing based on indication and [...] (COMPLETED) 1534 (Given - Provider: Pavan De Souza, SENIOR SOLUTIONS CONSULTANT, CURRICULUM DIRECTOR) 600 mg (rounded from 825 mg = 7.5 mg/kg ? 110 kg), intravenous, at 100 mL/hr, Administer over 30 Minutes, Once, 02/20/19 at 1345, For 1 dose, Intra-Op, Preoperatively within 1 hour prior to surgical incision premix bag, Indications: Prophylaxis, surgical Continuous Medication Order 02/18/2019 02/19/2019 02/20/2019 lactated ringers 1415 (New Bag - Provider: Kamla Ritter R.N.)1453 (Rate/Dose Verify - Provider: Pavan De Souza APRN, CURRICULUM DIRECTOR)1626 (Anesthesia Volume Adjustment - Provider: Pavan De Souza APRN, CHRIS) 20 mL/hr, intravenous, Continuous, Starting on e 02/20/19 at 134 5, Pre-Op NaCl 0.9% infusion 1700 (Due) 50 mL/hr, intravenous, at 50 mL/hr, Cont inuous, Starting e 02/20/19 at 1700, PACU & Post-Op, Until tolerating oral diet PRN Medication Order 02/18/2019 02/19/2019 02/20/2019 dexamethasone injection 4 mg (DECADRON) 4 mg, intravenous, Once as needed, nause a, vomiting, Starting e 02/20/19 at 1645, For 1 dose, PACU & Post-Op, Give only if NOT given during the pre or intraoperative period. If ondansetron ordered, give dexamethasone with first dose of ondansetron. droperidol injection 0.625 mg (INAPSINE) 0.625 mg, intravenous, Every 6 hours PRN , nausea, vomiting, Starting 02/20/19 at 1645, For 48 hours, PACU & [...] pain or score 7-10 of 10, Starting 02/20/19 at 1645, For 2 doses, PACU & [...] documented as of this encounter Care Teams Beef Grinder Relationship Specialty Start Date End Date Chandni Urbina APRN, C.N.P., PCP - General Family Medicine 06/06/19 D.N.P. [address] [place] [address] documented as of this encounter
--- OUTSIDE RECORDS SUMMARY | 2022-04-07 13:15 | XMS_ITS | Encounter Summary ---
:1995 Author Organization [facility] Address [address] [place] [address] Care Team Providers Name Role Phone Chandni Urbina APRN, C.N.P., D.N.P. Primary Care Provider Reason for Referral Behavioral Health (Routine) - Closed Specialty Diagnoses / Procedures Referred By Contact Refer red To Contact Psychiatry / Psychiatry Diagnoses Bipolar II Disorder (HCC) Chandni Urbina, [facility]BI C.N.P., D.N.P. [address] [place] [phone] Referral ID Status Reason Start Date Expiration Date Visits V isits Requested Authorized [id number] Closed Specialty 09/25/2018 09/25/2019 1 1 Services Required [place] PRECASTER Reason for Visit Reason Comments Cough chills/sweats, sore throat, productive cough and shortness of breath Appointment Request (Routine) - Closed Specialty Diagnoses / Procedures Referred By Contact Refer red To Contact Family Medicine Referral ID Status Reason Start Date Expiration Date Visits Requ ested Visits Authorized [id number] Closed 09/25/2018 09/25/2019 1 Encounter Details Date Type Department Care Team Description 09/25/2018 Office Visit Department of Family Chandni Urbina, In fection Upper Respiratory (Primary Dx); Medicine, Hakeem BRITTON C.N.P., Asthma Mil d Intermittent ([facility]); [facility], in Ki.N.P. Bipolar II Disorder ([facility]) Hakeem Genao, [address] [place] [address] [address] [place] [phone] (Work) [phone] Social History Tobacco Use Types Packs/Day Years [...] How often do you attend gnosticism or anabaptism Never 10/23/2020 services? 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 - 09/25/2018 10:30 AM CST SUBJECTIVE CHIEF COMPLAINT / REASON FOR VISIT Carly Joseph is a 23 y.o. female who presents for evaluation of Cough (chills/sweats, sore throat, productive cough and shortness of breath). HISTORY OF PRESENT ILLNESS Carly is a pleasant 23 y.o. female, with a history of asthma, that presents to the clinic today for evaluation of productive cough, shortness of breath, chills/sweats for the past 2 weeks. She also reports new onset sore throat for the past couple days. She has needed her albuterol inhaler more frequently for shortness of breath related to persistent cough. She has also tried oqps-ded-jmicree Mucinex and ibuprofen for symptoms. No known fevers. No chest pain. No vomiting. Patient is also requesting a referral to Psychiatry in [place]. She has not been taking her Cymbalta or Lamictal for bipolar disorder. She reports that she is feeling well but would like a referral to a different psychiatrist for medication evaluation/management. The following portions of the patient's history were reviewed and updated as appropriate: allergies,current medications, family history, medical history, social history, surgical history and problem list. REVIEW OF SYSTEMS A brief review of systems was negative except for that mentioned in the history of present of illness. CURRENT MEDICATIONS Current Outpatient Medications Medication Sig ??? albuterol (for_ACCUNEB) 2.5 mg /3 mL nebulizer solution one unit dose qid and q2hr prn ??? albuterol (VENTOLIN HFA) 90 mcg/actuation inhaler Inhale 2 puffs every 4 (four) hours as needed for wheezing. ??? BREO ELLIPTA 100-25 mcg/dose inhaler INHALE ONE PUFF BY MOUTH EVERY DAY - REPLACES ADVAIR ??? fluticasone (for_FLONASE) 50 mcg/actuation nasal spray Administer 2 sprays into affected nostril(s) 2 (two) times a day as needed. ??? levonorgestrel-ethinyl estradiol (SEASONALE) 0.15-mg-30 mcg per tablet Take 1 tablet by mouth daily. ??? DULoxetine (CYMBALTA) [address] capsule Take 1 capsule (30 mg total) by mouth every morning before breakfast. (Patient not taking: Reported on 09/25/2018 ) ??? lamoTRIgine (LaMICtal) 200 mg tablet Take 1 tablet (200 mg total) by mouth daily. (Patient not taking: Reported on 09/25/2018 ) ALLERGIES/CONTRAINDICATIONS Allergies Allergen Reactions ??? Cefixime Other (see comments) Unknown reaction as a child OBJECTIVE PHYSICAL EXAMINATION Vital Signs: BP 125/63 (BP Location: Left arm, Patient Position: Sitting, Cuff Size: Large) Pulse 72 Temp 37.3 ??C (Temporal) Resp 24 Wt 106.7 kg SpO2 98% ? No BMI 38.26 kg/m?? Body mass index is 38.26 kg/m??. General: Patient is in no distress. Capable of full communication without difficulty. Patient is polite and cooperative. HEENT: Normocephalic. EOMI, PERRL, Canals patent, TMs normal. Nasal turbinates are erythematous and swollen bilaterally. Oropharynx without lesion of mucosa. Pharyngx rises symmetrically without exudate. Neck: Supple. No nodes. Heart: Regular rate and rhythm. No murmurs, gallops or rubs noted. Lungs: Clear to auscultation bilaterally. No expiratory wheeze. No accessory muscles of respiration noted. Skin: No rashes noted. Neuro: Alert and oriented x3, nonfocal, moving all 4 extremities. CN II-XII grossly intact. Psych: Affect is appropriate. ASSESSMENT / PLAN #1 Infection Upper Respiratory #2 Asthma Mild Intermittent (HCC) Given the length of time with symptoms and history of asthma, I opted to empirically treat her with a Z-North for upper respiratory tract infection. She was also advised to restart Flonase as nasal spray. I refilled her albuterol nebulizer and albuterol inhaler which she was encouraged to use as needed for wheezing and shortness of breath. If symptoms significantly worsen or fail to improve over the next several days despite antibiotic therapy, she was encouraged to follow up in the clinic for re-evaluation. #3 Bipolar II Disorder (HCC) A referral was placed for Psychiatry in [place] per patient request for medication evaluation. Patient was instructed to present urgently to the clinic/ER if symptoms worsen or fail to improve over the next several days. Follow-up otherwise as mentioned above. Plan was discussed with patient and is in agreement with plan. All questions were answered, side effects of any/all new medications were discussed. Patient left in no acute distress. Ready to learn. No apparent learning barriers were identified. Learning preferences include listening. Explained diagnosis and treatment plan. Patient/Child/Caregiver expressed understanding of the content. Chandni Urbina APRN, Mitchell.N.P., D.N.P. [place] [facility] documented in this encounter Plan of Treatment Scheduled Referrals Name Type Priority Associated Order Schedule Diagnoses Psychiatry and Outpatient Referral Routine Bipolar II Disorder Expected: Psychology - General ([facility]) 019 consult (clinic) (Approximat e), Expires: 09/25/2021 documented as of this encounter Visit Diagnoses Diagnosis Infection Upper Respiratory - Primary Asthma Mild Intermittent ([facility]) Bipolar II Disorder ([facility]) documented in this encounter Additional Health Concerns Assessment Noted Time PHQ-9 Depression Total Score: 11 02/10/2018 4:00 PM CD T documented as of this encounter Care Teams Breaster Relationship Specialty Start Date End Date Chandni Urbina APRN, C.N.P., PCP - General Family Medicine 06/06/19 D.N.P. [address] [place] [phone] documented as of this encounter
--- OUTSIDE RECORDS SUMMARY | 2022-04-07 13:15 | XMS_ITS | Encounter Summary ---
:1995 Author Organization [facility] Address [address] [place] [address] Care Team Providers Name Role Phone Chandni Urbina APRN C.N.P., D.N.P. Primary Care Provider Reason for Visit Reason Comments Med Refill Encounter Details Date Type Department Care Team Description 09/26/2018 Refill Department of Family Medicine, Chandni Urbina APRN, Med Refill [facility], in [place] C .N.P., D.N.P. [address] [address] [place], [place] [address] [phone] Social History Tobacco Use Types Packs/Day Years [...] 10/23/2020 relatives? How often do you attend sabianism or islam Never 10/23/2020 services? 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 Nurse Review: Pharmacy Communication Provider: Chandni Urbina APRN, C.N.P., D.N.P. Medication: Albuterol sulfate Strength: 2.5 mg/3mL soln Frequency: Take 3 mL by nebulization every 4 hours as needed for wheezing Pharmacy: [facility] Comment: ING PROGRAM MANAGER documented in this encounter Plan of Treatment Not on filedocumented as of this encounter Visit Diagnoses Not on filedocumented in this encounter Additional Health Concerns Assessment Noted Time PHQ-9 Depression Total Score: 11 02/10/2018 4:00 PM CD T documented as of this encounter Care Teams Reverse Logistics Analyst Relationship Specialty Start Date End Date Chandni Urbina APRN, C.N.P., PCP - General Family Medicine 06/06/19 D.N.P. [address] [place] [address] documented as of this encounter
--- OUTSIDE RECORDS SUMMARY | 2022-04-07 13:15 | XMS_ITS | Encounter Summary ---
:1995 Author Organization [facility] Address [address] [place] [id number] Care Team Providers Name Role Phone Chandni Urbina APRN, C.N.Mana, D.N.P. Primary Care Provider Reason for Visit Reason Comments Annual Exam Appointment Request (Routine) - Closed Specialty Diagnoses / Procedures Referred By Contact Refer red To Contact Family Medicine Referral ID Status Reason Start Date Expiration Date Visits Requ ested Visits Authorized [id number] Closed 10/09/2018 10/09/2019 1 Encounter Details Date Type Department Care Team Description 10/12/2018 Comprehensive Visit Department of Chandni Urbina Adult Examination Normal (Primary Dx); Family Medicine, [place], TOBI, Counseling And Review Vaccination Status [place] C.N.PGonzalo, D.N.P. [facility], in [place] [phone] [facility] [phone] [place], [place] (Work) [phone] Social History Tobacco Use Types Packs/Day [...] 10/23/2020 relatives? How often do you attend holiness or oriental orthodox Never 10/23/2020 services? 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 documented as of this encounter Last Filed Vital Signs Vital Sign Reading Time Taken Comments Blood Pressure 123/67 10/12/2018 8:57 AM LIQUOR GALLERY OPERATOR Pulse 74 10/12/2018 8:57 AM LIQUOR GALLERY OPERATOR Temperature 36.8 ??C (98.2 ??F) 10/12/2018 8:57 AM LIQUOR GALLERY OPERATOR Respiratory Rate 20 10/12/2018 8:57 AM LIQUOR GALLERY OPERATOR Oxygen Saturation 98% 10/12/2018 8:57 AM LIQUOR GALLERY OPERATOR Inhaled Oxygen Concentration - - Weight 106 kg (234 lb 5.6 oz) 10/12/2018 8:57 AM LIQUOR GALLERY OPERATOR Height 168 cm (5' 6.14) 10/12/2018 8:57 AM LIQUOR GALLERY OPERATOR Body Mass Index 37.66 10/12/2018 8:57 AM LIQUOR GALLERY OPERATOR documented in this encounter H&P Notes Chandni Urbina, TOBI, C.N.P., D.N.P. - 10/12/2018 9:15 AM CST SUBJECTIVE HISTORY OF PRESENT ILLNESS Carly is a 23 y.o. female who presents to the clinic today for her annual wellness exam and follow-up of her chronic medical problems, blood work, and medication refills. She plans to start school and is requesting blood drawn for titers. She was treated for URI last week and reports symptoms have significantly improved/resolved. She is currently taking an OCP for contraception, Lexapro for depression/anxiety, and albuterol inhaler and nebulizer for asthma symptoms. She denies any concerns regarding her prescription medications today. Health Maintenance/Preventative Medicine: Cervical cancer screening: Last done in 03/2016, recommended every 3 years. Fasting cholesterol: Never done. Diabetes screen: Never done. Tetanus: Last done in 2013, recommended every 10 years. MEDICAL HISTORY Patient Active Problem List Diagnosis ??? Asthma NOS ??? Pain Hip Left SURGICAL HISTORY Past Surgical History: Procedure Laterality Date ??? TONSILLECTOMY 2000 Partial ??? TONSILLECTOMY AND [...] MOUTH EVERY DAY - REPLACES ADVAIR ??? escitalopram (LEXAPRO) 20 mg tablet 1/2 tab po q AM X 5 days, then 1 tab po q AM ??? fluticasone (for_FLONASE) 50 mcg/actuation nasal spray Administer 2 sprays into affected nostril(s) 2 (two) times a day as needed. ??? levonorgestrel-ethinyl estradiol (SEASONALE) 0.15-mg-30 mcg per tablet Take 1 tablet by mouth daily. FAMILY HISTORY Family Status Relation Status ??? GMother (Not Specified) ??? GFather (Not Specified) ??? PGM (Not Specified) SOCIAL HISTORY Social History Substance Use Topics ??? Smoking status: Former Smoker Packs/day: 0.75 Years: 7.00 Types: Cigarettes Quit date: 01/31/2018 ??? Smokeless tobacco: Never Used ??? Alcohol use 1.2 oz/week 2 Glasses of wine per week REVIEW OF SYSTEMS General: No acute distress. [...] mood. OBJECTIVE PHYSICAL EXAMINATION Vital Signs: BP 123/67 (BP Location: Left arm, Patient Position: Sitting, Cuff Size: Large) Pulse 74 Temp 36.8 ??C (Temporal) Resp 20 Ht 168 cm Wt 106.3 kg SpO2 98% ? No BMI 37.66 kg/m?? Body mass index is 37.66 kg/m??. General: The patient appears comfortable and in no acute distress. HEENT: Conjunctivae and lids are without erythema or discharge. Pupils are equal, round and reactiveto light. There is no scleral icterus. Extraocular muscles are intact. The ear canals are patent andtympanic membranes are clear bilaterally. Turbinates are negative for erythema and swelling bilaterally. The oropharynx is clear and without lesions. Dentition and gums are intact. Neck: Thyroid is normal size, non-tender, without nodularity. Lymphatic: There is no cervical, or supraclavicular adenopathy. Lungs: The lungs are clear to auscultation bilaterally. No wheezes, rales or rhonchi. Heart: Heart is regular rate and rhythm. Normal S1 and S2 are present. There are no murmurs, rubs, or gallops present. There are no carotid bruits present. Radial pulses are 2+ bilaterally. There is nolower extremity edema present bilaterally. Breasts: Deferred. Abdomen: Soft. Active bowel sounds. Skin: There are no abnormal skin rashes, lesions or masses. Skin is dry and warm. Extremities: Gait is normal. Strength is 5/5 in all the major muscle groups in the upper and lower extremities bilaterally. Back range of motion is normal. Neuro: Cranial nerves II through XII are grossly intact and symmetric. Pelvic Exam: Deferred. Psychiatric: The patient is alert and oriented x3. The patient's affect is not blunted and mood is appropriate. DIAGNOSTICS RECENT LABS: Immunization titers pending. ASSESSMENT / PLAN #1 Well Adult Examination Normal Age-appropriate counseling and risk factor reduction was provided. Recommendations for preventative health include annual dental exams, periodic eye exams, seat belt use, maintenance of ideal body weight, sunscreen use, immunizations, cancer screening exams appropriate for age and gender. School form completed and signed at the time of her visit today. #2 Counseling And Review Vaccination Status Immunization titers ordered and are pending at time of dictation. PLAN: 1. Annual wellness exam today. 2. Discussed routine health maintenance for age. Lipid screen: Discussed. Diabetes screen: Discussed. Cervical Cancer Screening: Due in 03/2019. Screen for Hepatitis C: Not high risk. Immunizations: Up-to-date. 3. Follow-up 1 year for annual exam [...] understanding of the content. Chandni Urbina APRN, C.N.P., D.N.P. OR GALLERY OPERATOR documented in this encounter Plan of Treatment Not on filedocumented as of this encounter Procedures Procedure Name Priority Date/Time Associated Diagnosis Comme nts QUANTIFERON-TB GOLD Routine 10/12/2018 9:57 AM Counseling And Results for this PLUS, B LIQUOR GALLERY OPERATOR Review Vaccination procedure are in Status the results section. MMRV IMMUNE STATUS Routine 10/12/2018 9:39 AM Counseling And R esults for this PROFILE LIQUOR GALLERY OPERATOR Review Vaccination procedure are in Status the results section. HEPATITIS B SURFACE Routine 10/12/2018 9:39 AM Counseling And Results for this ANTIGEN LIQUOR GALLERY OPERATOR Review Vaccination procedure are in Status the results section. documented in this encounter Results QuantiFERON-Tb Gold Plus, Blood (10/12/2018 9:57 AM LIQUOR GALLERY OPERATOR) P athologist Signature QuantiFERON-TB Negative Negative 10/16/2018 [facility] Gold Plus 11:27 AM LIQUOR GALLERY OPERATOR [facility] Result [facility]- [facility] Comment: No interferon-gamma response to M. tuber [...] level <0.35 IU/mL. TB1 Ag minus Nil 0.00 IU/mL 10/16/2018 11:27 AM LIQUOR GALLERY OPERATOR [facility] TB2 Ag minus Nil 0.00 IU/mL 10/16/2018 11:27 AM LIQUOR GALLERY OPERATOR [facility] Mitogen minus Nil >10.00 IU/mL 10/16/2018 11:[address] [facility] Nil Result 0.02 IU/mL 10/16/2018 11:27 AM LIQUOR GALLERY OPERATOR [facility] Specimen Anatomical Collection Method Collection Time Receive d Time (Source) Location / / Volume Laterality Blood (Blood, 10/12/2018 9:57 AM 10/14/19 3:14 Venous) LIQUOR GALLERY OPERATOR PM LIQUOR GALLERY OPERATOR Narrative [facility] - 10/16/2018 11:27 AM LIQUOR GALLERY OPERATOR Specimen Information: Specimen ID: [id number] Specimen Type: Blood Specimen Collection Start Date: 10/12/19 ??9:57 AM Specimen Received Date: 10/13/2018 ??3:14 PM Specimen ID: [id number] Specimen Type: Blood Specimen Collection Start Date: 10/12/19 ??9:58 AM Specimen Received Date: 10/13/2018 ??3:14 PM Specimen ID: [id number] Specimen Type: Blood Specimen Collection Start Date: 10/12/19 ??9:58 AM Specimen Received Date: 10/13/2018 ??3:14 PM Specimen ID: [id number] Specimen Type: Blood Specimen Collection Start Date: 10/12/19 ??9:57 AM Specimen Received Date: 10/13/2018 ??3:14 PM Mitchell Geller APRN.N.P., D.N.P. LAB MICROBIOLOGY - BLOOD ORDERABLES Performing Organization Address City/State/ZIP Code Phon e Number [facility] [address] [place] [place] [address] [facility] MMRV Immune Status Profile (10/12/2018 9:39 AM LIQUOR GALLERY OPERATOR) P athologist Signature Measles Positive 10/13/2018 [facility] ([place]) Ab, 11:36 AM [facility] IgG, S [facility] Comment: Results suggest response to immunization or prior exposure to the virus. ----REFERENCE VALUE---- Vaccinated: Positive (>=1.1 AI) Unvaccinated: Negative (<=0.8 AI) Measles IgG Antibody 4.7 10/13/2018 11:36 AM [facility][note 3] LAB Mumps Ab, IgG, S Positive 10/13/2018 11:36 AM [facility] Comment: Results suggest response to immunization or prior exposure to the virus. ----REFERENCE VALUE---- Vaccinated: Positive (>=1.1 AI) Unvaccinated: Negative (<=0.8 AI) Mumps IgG Antibody 1.7 10/13/2018 11:36 AM C [facility] Rubella Ab, IgG, S Positive 10/13/2018 11:36 AM [facility] Comment: Results suggest response to immunization or prior exposure to the virus. ----REFERENCE VALUE---- Vaccinated: Positive (>=1.0 AI) Unvaccinated: Negative (<=0.7 AI) Rubella IgG Antibody 2.2 10/13/2018 11:36 AM [facility]note 3] LAB Varicella-Zoster Ab, Positive 10/13/2018 11:36 AM [facility] IgG, S [facility] Comment: Results suggest response to immunization or prior exposure to the virus. ----REFERENCE VALUE---- Vaccinated: Positive (>=1.1 AI) Unvaccinated: Negative (<=0.8 AI) Varicella IgG Antibody 3.3 10/13/2018 11:36 AM LIQUOR GALLERY OPERATOR [facility] Specimen Anatomical Collection Method Collection Time Receive d Time (Source) Location / / Volume Laterality Blood (Blood, 10/12/2018 9:39 AM 10/12/19 19 2:26 Venous) LIQUOR GALLERY OPERATOR PM LIQUOR GALLERY OPERATOR Chandni Urbina APRN, C.N.P., D.N.P. LAB MICROBIOLOGY - BLOOD ORDERABLES Performing Organization Address City/[facility] Phon e Number [address] [address] [facility] Hepatitis B Surface Antigen (10/12/2018 9:39 AM LIQUOR GALLERY OPERATOR) [facility] Method Time Signature HBs Antigen, Nonreactive Nonreactive 10/13/2018 [facility] 11:52 AM LIQUOR GALLERY OPERATOR [facility] Specimen Anatomical Collection Method Collection Time Receive d Time (Source) Location / / Volume Laterality Blood (Blood, 10/12/2018 9:39 AM 10/12/19 19 2:26 Venous) LIQUOR GALLERY OPERATOR PM LIQUOR GALLERY OPERATOR Chandni Urbina APRN, C.N.P., D.N.P. LAB MICROBIOLOGY - BLOOD ORDERABLES Performing Organization Address [facility] Phon e Number [address] [address] [facility] documented in this encounter Visit Diagnoses Diagnosis Well Adult Examination Normal - Primary Counseling And Review Vaccination Status documented in this encounter Additional Health Concerns Assessment Noted Time PHQ-9 Depression Total Score: 15 10/11/2018 12:[address] documented as of this encounter Care Teams Horse Farm Manager Relationship Specialty Start Date End Date Chandni Urbina APRN, C.N.P., PCP - General Family Medicine 06/06/19 D.N.P. [address] [phone] documented as of this encounter
--- OUTSIDE RECORDS SUMMARY | 2022-04-07 13:15 | XMS_ITS | Encounter Summary ---
:1995 Author Organization [facility] Address [address] [place] [address] Care Team Providers Name Role Phone Chandni Urbina APRN, C.N.P., D.N.P. Primary Care Provider Encounter Details Date Type Department Care Team Description 02/20/2019 Ancillary Procedure Department of General Surgery Social History Tobacco Use Types Packs/Day Years [...] 10/23/2020 relatives? How often do you attend buddhism or protestant Never 10/23/2020 services? 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 documented in this encounter Results Non-Radiology Image-Surgery Image Exam (02/20/2019 2:55 PM CDT) Specimen (Source) Anatomical Location Collection Method / Collectio n Time Received Time / Laterality Volume Narrative IIMS - 03/06/2019 10:56 AM CDT This order has been created and auto-finalized to support the import of images acquired without order. The clini hernandez documentation to support these images can be found on the encounter jonnie t produced images. Provider Not In System IMG NON RAD IMAGING PROCEDUR ES Performing Organization Address City/State/ZIP Code Phon e Number IIMO IIMO NA documented in this encounter Visit Diagnoses Not on filedocumented in this encounter Additional Health Concerns Assessment Noted Time PHQ-9 Depression Total Score: 10 11/08/2018 12:47 PM C DT documented as of this encounter Care Teams Appraiser Personal Property Relationship Specialty Start Date End Date Chandni Urbina, TOBI, C.N.P., PCP - General Family Medicine 06/06/19 D.N.P. [address] [place] [phone] documented as of this encounter
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
--- OUTSIDE RECORDS SUMMARY | 2022-04-07 13:15 | XMS_ITS | Encounter Summary ---
:1995 Author Organization [facility] Address [address] [place] [address] Care Team Providers Name Role Phone Chandni Urbina APRN C.N.Mana, D.N.P. Primary Care Provider Encounter Details Date Type Department Care Team Description 10/12/2018 Diagnostic Department of Sleep Dorian Khalil, Anxiety Generalized Medicine in [place] Tobias M.D. Disorder [place] [address] [facility] [address] [place] [phone] Social History Tobacco Use Types Packs/Day Years [...] 10/23/2020 relatives? How often do you attend sabianist or yazidi Never 10/23/2020 services? 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 Dorian Khalil M.D. PFT ORDERABLES Performing Organization Address City/State/ZIP Code Phon e Number [email or web address] documented in this encounter Visit Diagnoses Diagnosis Anxiety Generalized Disorder documented in this encounter Additional Health Concerns Assessment Noted Time PHQ-9 Depression Total Score: 15 10/11/2018 12:[address] documented as of this encounter Care Teams Stiff Straw Hat Washer Relationship Specialty Start Date End Date Chandni Urbina APRN, C.N.P., PCP - General Family Medicine 06/06/19 D.N.P. [address] [place] [phone] documented as of this encounter
--- OUTSIDE RECORDS SUMMARY | 2022-04-07 13:15 | XMS_ITS | Encounter Summary ---
:1995 Author Organization [facility] Address [address] [place] [address] Care Team Providers Name Role Phone Chandni Urbina APRN C.N.P., D.N.P. Primary Care Provider Reason for Visit Reason Comments Pain Outpatient (Routine) - Closed Specialty Diagnoses / Procedures Referred By Contact Refer red To Contact Orthopedic Surgery Diagnoses Pain Ankle Left Edwige Lundberg APRN, [facility] C.N.P., D.N.P. [address] [place] [phone] Referral ID Status Reason Start Date Expiration Date Visits Requ ested Visits Authorized [id number] Closed 02/19/2019 02/19/2020 1 1 Encounter Details Date Type Department Care Team Description 03/06/2019 Office Visit Department of Orthopedic Edwige Lundberg, Pain Ankle Left Surgery in [facility] TOBI, C .N.P., D.N.P. [address] [phone] Social History Tobacco Use Types Packs/Day Years [...] How often do you attend advent or methodist Never 10/23/2020 services? 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 - 03/06/2019 2:30 PM CDT Jackie is a very pleasant 24-year-old female who is 2 weeks status post ORIF of left ankle fracture with syndesmotic fixation. She denies any signs or symptoms of infection is continued to be nonweightbearing. Physical exam general patient appears nondistressed her left lower extremity with minimal amount of edema noted. She has normal dorsal pedal and posterior tibial pulses and normal sensation distal to the surgical site. The incision is without any signs or symptoms of infection and sutures removed withSteri-Strips applied. Diagnostic studies x-ray shows adequate alignment with hardware of ORIF of left ankle. Impression and plan-Jackie is a pleasant 24-year-old 2 weeks status post ORIF of left ankle fracture. Will have her remain nonweightbearing plan to see her back in 3 weeks will repeat x-rays at that time if things are looking well we will consider some weight-bearing with the assistance of physical therapy at that time. Patient agrees with that plan her questions were answered we did discuss incisional care and signs and symptoms to be concerned about and report. Questions were answered documented in this encounter Plan of Treatment Not on filedocumented as of this encounter Results DX Ankle Left 3+ Views (03/06/2019 1:50 PM CDT) Anatomical Region Laterality Modality Lower Extremity, Ankle, Musculoskeletal RST LOS, Left Digital Radiography Musculoskeletal ARZ LOS, Muskuloskeletal FLA LOS Specimen (Source) Anatomical Collection Method Collection Time Re ceived Time Location / / Volume Laterality 03/06/2019 2:35 PM CDT Impressions 03/06/2019 2:38 PM CDT Anatomic alignment of liver type B distal left fibular fracture with syndesmotic disruption status post ORIF and syndesmotic fixation. Hardware appears intact. Ankle mortise and talar dome appear intact. Improved soft tissue swelling. Narrative 03/06/2019 2:38 PM CDT EXAM: DX ANKLE LEFT 3+ VIEWS COMPARISON: 02/15/2019 Procedure Note John Lester M.D. - 03/06/2019Formattin g of this note might be different from the original. EXAM: DX ANKLE LEFT 3+ VIEWS COMPARISON: 02/15/2019 IMPRESSION: Anatomic alignment of liver type B dista l left fibular fracture with syndesmotic disruption status post ORIF and syndesmotic fixation. Hardware appears intact. Ankle mortise and talar dome appear intact. Improved soft tissue swelling. Edwige Lundberg APRN, C.N.P., D.N.P. IMG DIAGNOSTIC IMAG ING PROCEDURES documented in this encounter Visit Diagnoses Diagnosis Pain Ankle Left Pain Ankle Left documented in this encounter Additional Health Concerns Assessment Noted Time PHQ-9 Depression Total Score: 10 11/08/2018 12:47 PM C DT documented as of this encounter Care Teams Pattern Clerk Relationship Specialty Start Date End Date Chandni Urbina APRN, C.N.P., PCP - General Family Medicine 06/06/19 [facility] [address] [place] [phone] documented as of this encounter
--- OUTSIDE RECORDS SUMMARY | 2022-04-07 13:15 | XMS_ITS | Encounter Summary ---
:1995 Author Organization [facility] Address [address] [place] [address] Care Team Providers Name Role Phone Chandni Urbina APRN, C.N.P., D.N.P. Primary Care Provider Reason for Visit Reason Comments Med Refill Encounter Details Date Type Department Care Team Description 02/27/2019 Refill Department of Obstetrics and [facility], [facility] TOBI wolff, Med Refill Gynecology in [facility] ELOY, M.S .N., B.S.N., R.N. [place] [address] [place] [id number] [place] [phone] Social History Tobacco Use Types Packs/Day Years [...] How often do you attend pentecostalism or jewish Never 10/23/2020 services? 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 [address] [place] [phone] documented as of this encounter
--- OUTSIDE RECORDS SUMMARY | 2022-04-07 13:15 | XMS_ITS | Encounter Summary ---
:1995 Author Organization [facility] Address [address] [place] [address] Care Team Providers Name Role Phone Chandni Urbina APRN C.N.Rodrigo., D.N.P. Primary Care Provider Encounter Details Date Type Department Care Team Description 10/11/2018 Hospital Encounter Department of Dorian Khalil, Anxiety Generalized Laboratory Medicine [facility], [address] [place] [address], in [place], [place] [phone] [place] [address] [place], [place] (Work) [phone] Social History Tobacco Use Types Packs/Day Years [...] How often do you attend nondenominational or taoism Never 10/23/2020 services? 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 BREO ELLIPTA 100-25 INHALE ONE PUFF BY 180 each 2 08/31/19 19 10/17/2018 mcg/dose inhaler MOUTH EVERY DAY - REPLACES ADVAIR escitalopram (LEXAPRO) 1/2 tab po q AM X 5 100 tablet 3 09/1610/31/2019 20 mg days, then 1 tab po q tabletIndications: AM Anxiety Generalized Disorder fluticasone Administer 2 sprays 0 07/18/201410/13 (for_FLONASE) 50 into affected mcg/actuation nasal nostril(s) 2 (two) spray times a day as needed. levonorgestrel-ethinyl Take 1 tablet by mouth 91 tablet 3 0 03/08/2018 02/27/2019 estradiol (SEASONALE) daily. 0.15-mg-30 mcg per tablet montelukast Take 10 mg by mouth as 0 03/22/2013 0 02/19/2019 (SINGULAIR) 10 mg directed. tablet prenat.vits,hernandez,min-ir Take 1 tablet by mouth 0 0 08/20/2013 02/19/2019 on-folic ( daily. VITAMIN) tablet documented as of this encounter Plan of Treatment Not on filedocumented as of this encounter Procedures Procedure Name Priority Date/Time Associated Diagnosis Comme nts THYROID FUNCTION Routine 10/11/2018 2:14 PM Anxiety Generalize d Results for this CASCADE, S CHILDCARE WORKER Disorder procedure are i n the results section. CBC WITH Routine 10/11/2018 2:14 PM Anxiety Generalized Re sults for this DIFFERENTIAL, B CHILDCARE WORKER Disorder procedure ar e in the results section. documented in this encounter Results CBC with Differential (10/11/2018 2:14 PM CHILDCARE WORKER) [facility] gist Method Time Signature Hemoglobin 13.5 11.6 - 10/11/2018 [facility] 15.0 g/dL 2:36 PM CHILDCARE WORKER [facility] - [facility] Hematocrit 40.6 35.5 - 10/11/2018 [facility] 44.9 % 2:36 PM CHILDCARE WORKER [facility] Erythrocytes 4.51 3.92 - 10/11/2018 [facility] 5.13 2:36 PM CHILDCARE WORKER LAB[facility]ATORIES - x10(12)/L [facility] MCV 90.0 78.2 - 10/11/2018 [facility] 97.9 fL 2:36 PM CHILDCARE WORKER [facility] RBC Distrib Width 12.4 12.2 - 10/11/2018 [facility] 16.1 % 2:36 PM CHILDCARE WORKER [facility] Platelet Count 266 157 - 371 10/11/2018 [facility] x10(9)/L 2:36 PM [facility]ILDC[facility] WORKER [facility] Leukocytes 8.8 3.4 - 9.6 10/11/2018 [facility] x10(9)/L 2:36 PM [facility]DC[facility] WORKER [facility] Neutrophils 5.68 1.56 - 10/11/2018 [facility] 6.45 2:36 PM CHILDCARE WORKER [facility] - x10(9)/L [facility] Lymphocytes 2.44 0.95 - 10/11/2018 [facility] 3.07 2:36 PM [facility]DC[facility] WORKER [facility] - x10(9)/L [facility] Monocytes 0.49 0.26 - 10/11/2018 [facility] 0.81 2:36 PM CHILDCARE WORKER [facility] - x10(9)/L [facility] Eosinophils 0.15 0.03 - 10/11/2018 [facility] 0.48 2:36 PM CHILDCARE WORKER [facility] - x10(9)/L [facility] Basophils 0.04 0.01 - 10/11/2018 [facility] 0.08 2:36 PM CHILDCARE WORKER [facility] - x10(9)/L [facility] Specimen Anatomical Collection Method Collection Time Receive d Time (Source) Location / / Volume Laterality Blood (Blood, 10/11/2018 2:14 PM 10/11/19 19 2:32 Venous) CHILDCARE WORKER PM CHILDCARE WORKER Dorian Khalil M.D. LAB BLOOD ADD-ON Performing Organization Address City/[facility]/ZIP Code Phon e Number [facility] - [address] [place] [phone] [facility] Thyroid Function [place] (10/11/2018 2:14 PM CHILDCARE WORKER) athologist Signature TSH, Sensitive 3.7 0.3 - 4.2 10/11/2018 [facility] mIU/L 3:26 PM CHILDCARE WORKER [facility] - [facility] Specimen Anatomical Collection Method Collection Time Receive d Time (Source) Location / / Volume Laterality Blood (Blood, 10/11/2018 2:14 PM 10/11/19 19 2:32 Venous) CHILDCARE WORKER PM CHILDCARE WORKER Dorian Khalil M.D. LAB BLOOD ADD-ON Performing Organization Address City/[facility] Phon e Number [facility] - [address] [place] [phone] [facility] documented in this encounter Visit Diagnoses Diagnosis Anxiety Generalized Disorder documented in this encounter Additional Health Concerns Assessment Noted Time PHQ-9 Depression Total Score: 15 10/11/2018 12:[address] documented as of this encounter Care Teams Crepe Sole Wire Brusher Relationship Specialty Start Date End Date Chandni Urbina APRN, C.N.P., PCP - General Family Medicine 06/06/19 D.N.P. [address] [place] [address] documented as of this encounter
--- OUTSIDE RECORDS SUMMARY | 2022-04-07 13:15 | XMS_ITS | Encounter Summary ---
:1995 Author Organization [facility] Address [address] [place] [address] Care Team Providers Name Role Phone Chandni Urbina APRN, C.N.Mana, D.N.P. Primary Care Provider Encounter Details Date Type Department Care Team Description 03/06/2019 Hospital Encounter Department of Edwige Lundberg, Pain Ankle Left Radiology in [place] D.N.P. [address] [phone] [phone] Social History Tobacco Use Types Packs/Day Years [...] How often do you attend druze or voodoo Never 10/23/2020 services? 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 Medications at [...] Name Priority Date/Time Associated Comments Diagnosis DX ANKLE LEFT 3+ RAD - Routine 03/06/2019 1:50 Pain Ankle Left Resu lts for this VIEWS (most [...] encounter Visit Diagnoses Diagnosis Pain Ankle Left documented in this encounter Additional Health Concerns Assessment Noted Time PHQ-9 Depression Total Score: 10 11/08/2018 12:47 PM C DT documented as of this encounter Care Teams Hose Finisher Relationship Specialty Start Date End Date Chandni Urbina APRN, C.N.P., PCP - General Family Medicine 06/06/19 [place] [address] [place] [address] documented as of this encounter
--- OUTSIDE RECORDS SUMMARY | 2022-04-07 13:15 | XMS_ITS | Encounter Summary ---
:1995 Author Organization [facility] Address [address] [place] [address] Care Team Providers Name Role Phone Chandni Urbina APRN, C.N.P., D.N.P. Primary Care Provider Reason for Visit Outpatient (Routine) - Closed Specialty Diagnoses / Procedures Referred By Contact Refer red To Contact Emergency Medicine Diagnoses Fracture Fibula Shaft Oblique Displaced Closed Initial Left Jesus Sorenson APRN, [facility] C.N.P. [address] [place] [phone] Referral ID Status Reason Start Date Expiration Date Visits Requ ested Visits Authorized [id number] Closed 02/16/2019 02/16/2020 1 1 Encounter Details Date Type Department Care Team Description 02/19/2019 Office Visit Department of Bruno Spivey, Fracture Fibula Shaft Orthopedic Surgery in [place] Oblique Displaced [place], [place] 701 [facility] Closed Initial Left [address] [place], [place] [phone] Social History Tobacco Use Types Packs/Day [...] often do you attend jehovah's witness or yazidi Never 10/23/2020 services? 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 - 02/19/2019 8:00 AM CDT Xin is a 24-year-old female who fell twisting her left ankle on 02/15/2019 and was found to have an Acute distal left fibular fracture. She is here today for definitive care. Medications and allergies as noted in the chart. Review of systems-patient does have a history of asthma but no current cough. No chest pain or shortness of breath no changes in bowel or bladder habits rest her review systems is negative with the exception of her left ankle fracture. Past medical surgical history-asthma, anxiety, she has had wisdom teeth extraction and tonsillectomy. No history of any anesthesia complications. But she did get some nausea afterwards. She is not diabetic and has no bleeding disorder. Social history she is a nonsmoker has a 5-year-old child. Family history-no family history of any anesthesia complications. Physical exam-general patient appears nondistressed. She is alert and oriented x3 Neck supple. Vessels carotids with normal up stroke there are no bruits or distention. Heart with regular rate and rhythm she has a normal S1-S2 there is no murmurs or gallops heard lungs are clear to auscultation with good respiratory effort no wheezing noted. Extremities she moves all extremities she does have swelling noted on her left lower leg but has excellent sensation distal to the injury. She has normal dorsalpedal and posterior tibial pulses. Diagnostic studies- Left ankle Obliquely oriented, moderately displaced fracture involving the distal left fibular metaphysis. Distal left fibular fracture component is proximally, dorsally and laterally subluxed 3 to 4 mm. Moderate prominent soft tissue swelling adjacent left lateral lower leg/ankle. Noted widening of the left medial ankle joint mortise. Impression and plan-Jackie is a pleasant 24-year-old who has an Acute distal left fibular fracture. That will require surgery. Discussion of this treatment option was performed. Her questions were answered. Preoperative as well as postoperative expectations were discussed and benefits and swell as risks of surgery were also discussed. Questions were answered and we will set her up for an ORIF of her left ankle distal fibula fracture. In her questions were answered. Patient is considered medically optimal for this procedure with no anticipated complications identified. 34 minutes was spent with patient of which 22 minutes was counseling and treatment options regardingher left ankle fracture documented in this encounter Plan of Treatment Not on filedocumented as of this encounter Visit Diagnoses Diagnosis Fracture Fibula Shaft Oblique Displaced Closed Initial Left documented in this encounter Additional Health Concerns Assessment Noted Time PHQ-9 Depression Total Score: 10 11/08/2018 12:47 PM C DT documented as of this encounter Care Teams Fall Internship Relationship Specialty Start Date End Date Chandni Urbina APRN, C.N.P., PCP - General Family Medicine 06/06/19 D.N.P. [address] [place] [phone] documented as of this encounter
--- OUTSIDE RECORDS SUMMARY | 2022-04-07 13:15 | XMS_ITS | Encounter Summary ---
:1995 Author Organization [facility] Address [address] [place] [address] Care Team Providers Name Role Phone Chandni Urbina APRN C.N.Rodrigo., D.N.P. Primary Care Provider Reason for Visit Reason Comments Sore Throat For a week now, states it is effecting her breathing/asthma Appointment Request (Routine) - Closed Specialty Diagnoses / Procedures Referred By Contact Refer red To Contact Family Medicine Referral ID Status Reason Start Date Expiration Date Visits Requ ested Visits Authorized [id number] Closed 01/23/2019 01/23/2020 1 Encounter Details Date Type Department Care Team Description 01/23/2019 Office Visit Department of Family Ashleigh Talley ma Mild Intermittent With Acute Exacerbation (HCC) (Primary Dx); Medicine, Hakeem Ludwig PMavis Sore Throat [facility] [phone] [place] [address] [place], [place] (Work) [phone] Social History Tobacco Use [...] How often do you attend mu-ism or temple Never 10/23/2020 services? 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 - 01/23/2019 1:30 PM [...] Ashleigh Talley P.A.-C. documented in this encounter Plan of Treatment Not on filedocumented as of this encounter Visit Diagnoses Diagnosis Asthma Mild Intermittent With Acute Exac erbation (HCC) - Primary Sore Throat documented in this encounter Additional Health Concerns Assessment Noted Time PHQ-9 Depression Total Score: 10 11/08/2018 12:47 PM C DT documented as of this encounter Care Teams Microbiological Lab Technician Relationship Specialty Start Date End Date Chandni Urbina APRN, C.N.P., PCP - General Family Medicine 06/06/19 D.N.P. [address] [place] [phone] documented as of this encounter
--- OUTSIDE RECORDS SUMMARY | 2022-04-07 13:15 | XMS_ITS | Encounter Summary ---
:1995 Author Organization [facility] Address [address] [place] [address] Care Team Providers Name Role Phone Chandni Urbina APRN C.N.P., D.N.P. Primary Care Provider Reason for Referral Outpatient (Routine) - Closed Specialty Diagnoses / Procedures Referred By Contact Refer red To Contact Orthopedic Surgery Diagnoses Pain Ankle Left Edwige Lundberg, TOBI, [facility] C.N.P., D.N.P. [address] [place] [phone] Referral ID Status Reason Start Date Expiration Date Visits Requ ested Visits Authorized [id number] Closed 02/19/2019 02/19/2020 1 1 Scheduling Instructions Please schedule at 2:30 on March 06 with Edwige Lundberg. Encounter Details Date Type Department Care Team Description 02/19/2019 Orders Only Department of Edwige Lundberg Pain Ankle Left Orthopedic Surgery in [place] C.N.PGonzalo, (Prim celina Dx) Hakeem Genao, D.N.P. [address] [phone] Social History Tobacco Use Types Packs/Day Years [...] often do you attend jehovah's witness or christianity Never 10/23/2020 services? 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 as of this encounter Plan of Treatment Scheduled Referrals Name Type Priority Associated Diagnoses Order S chedule Ortho Surg postop Outpatient Referral Routine Pain Ankle Left Expected: return (clinic) 03/06/2019, Expires: 02/19/2022 documented as of this encounter Visit Diagnoses Diagnosis Pain Ankle Left - Primary documented in this encounter Additional Health Concerns Assessment Noted Time PHQ-9 Depression Total Score: 10 11/08/2018 12:47 PM C DT documented as of this encounter Care Teams Plastic Cnc Machine Operator Relationship Specialty Start Date End Date Chandni Urbina APRN, C.N.P., PCP - General Family Medicine 06/06/19 [place] [address] [place] [phone] documented as of this encounter
--- OUTSIDE RECORDS SUMMARY | 2022-04-07 13:15 | XMS_ITS | Encounter Summary ---
:1995 Author Organization [facility] Address [address] [place] [id number] Care Team Providers Name Role Phone Chandni Urbina APRN, C.N.P., D.N.P. Primary Care Provider Reason for Visit Auth/Cert Specialty Diagnoses / Procedures Referred By Contact Refer red To Contact Diagnoses Fracture Ankle Closed Initial Left Fracture Ankle Closed Initial Left [S82.892A] Procedures GA CLSD TX DIST FIB WO MANIP OPEN REDUCTION INTERNAL FIXATION ANKLE Referral ID Status Reason Start Date Expiration Date Visits Requ ested Visits Authorized [id number] 1 1 Encounter Details Date Type Department Care Team Description 02/20/2019 Anesthesia Event [facility]IN OR Pavan De Souza APRN, [employer] [address] [place] [address] [place] [address] Ricarda Melo M.D. [address] [place] [address] [place] [address] Anesthesia Record Procedure Summary Procedure Name Responsible Anesthesia Start Anesthesia Stop Time Anesthesiologist Time OPEN REDUCTION Pavan De Souza APRN, 02/20/19 1512 1627 INTERNAL FIXATION [employer] ANKLE (Left: Ankle) Events Date Time Event Comment 02/20/2019 1453 An Start Data 1510 an stop data 1512 An Start Machine/Equipmen t Checked Infection Precautions Foll owed Procedure/Site Verified NPO Sta tus Verified Supine Standard ASA Mon itors Applied 1512 In Room 1512 An Start Data 1521 Turnover to Proceduralist 1540 Proc Start 1619 Proc Fin 1623 Out of Room 1627 An End I completed my h andoff to the receiving staff during i ch we 1. Identified the patient 2. Ident ified the responsible provider 3. Revi ewed the pertinent medical history 4. Discu ssed the surgical course 5. Reviewed intra-o p anesthesia management and issues during an esthesia 6. Set expectations for post-procedure period 7. Allowed opportun ity for questions and acknowledgement of understanding. Name Total midazolam 1 mg/mL injection 4 mg fentaNYL 50 mcg/mL injection 100 mcg clindamycin in D5W IVPB 600 mg (CLEOCIN) 600 mg dexamethasone 4 mg/mL injection 4 mg ondansetron PF 4 mg/2 mL injection 4 mg chloroprocaine PF 2% injection 2 mL propofol 10 mg/mL infusion 318.53 mg lactated ringers 500 mL Agents No agents on file. Blood No blood administrations on file. Lines, Drains, and Airways Type Details Placement Removal Peripheral IV Placement Date: 02/16/19; 02/16/19 0002 by 02/20 1636 by Placement Time: 0002; Hailey Reyes Boyu m, Jennifer, R.N. Catheter Size: 20 G; R.N. Orientation: Right; Location: Wrist; Site Prep: Alcohol; Technique: Anatomical landmarks; Removal Date: 02/20/19; Removal Time: 1636 Peripheral IV Placement Date: 02/20/19; 02/20/19 1414 by Riya, 02/20/19 1742 by Placement Time: 1414; Kamla Montano, RMeghann Byrd, Catheter Size: 20 G; R.N. Orientation: Left; Location: Hand; Site Prep: Chlorhexidine (Preferred); Technique: Anatomical landmarks; Inserted by: Patric Haynes RN; Insertion Attempts: 1; Removal Date: 02/20/19; Removal Time: 1742 documented in this encounter Social History Tobacco Use Types Packs/Day Years [...] 10/23/2020 relatives? How often do you attend bahai or jain Never 10/23/2020 services? 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 Responsible Provider: Pavan De Souza APRN, CRNA Anesthesia Type: regional ASA Status: 2 Anesthesia Type: regional Last vitals Vitals Value Taken Time BP 109/77 02/20/2019 4:49 PM Temp 36 ??C 02/20/2019 4:36 PM Pulse 67 02/20/2019 4:36 PM Resp 18 02/20/2019 4:49 PM SpO2 97 % 02/20/2019 4:36 PM Vitals shown include unvalidated device data. Please reference Vitals flowsheet for most recent vital signs. Anesthesia Post Evaluation Patient Disposition: dismissal Cardiovascular status: hemodynamics (HR & BP) acceptable Respiratory status: patent airway with spontaneous effort Temperature: normothermic Oxygen requirements: room air Level of consciousness: awake Pain score: pain adequately controlled and/or at baseline Post Op nausea/vomiting: none Hydration status: euvolemic Anesthesia Procedure Notes - Pavan De Souza APRN, CRNA - 02/20/2019 3:36 PM CDTAssociated Order(s): Regional Block Regional Block Performed by: Pavan De Souza APRN, CRNA Authorized by: Pavan De Souza APRN, CRNA Location: OR PROCEDURE DETAILS: Block type: primary anesthetic Neuraxial: spinal Positioning: sitting Approach: midline Level inserted: L4-5 Block technique: landmark technique Injection technique: single injection Needle type: pencan Gauge: 25G Length: 5 CSF: yes Pain with needle advancement or injection of local anesthetic: no PRE-PROCEDURE DETAILS: Appropriate hand hygiene, gown, cap, mask, protective eyewear, sterile gloves, skin preparation, sterile drape, and strict aseptic technique were utilized as applicable for the procedure.: yes Skin prep: chlorhexidine SEDATION / ANESTHESIA Anesthesia method: local infiltration POST-PROCEDURE DETAILS: Procedure completed successfully: successful procedure Other complications: none Anesthesia Procedure Notes - Pavan De Souza APRN, CRNA - 02/20/2019 3:36 PM CDTAssociated Order(s): Regional Block Regional Block Performed by: Pavan De Souza APRN, CRNA Authorized by: Pavan De Souza APRN, CRNA Location: Pre Op / PACU PROCEDURE DETAILS: Block type: post-op pain block Block type comment: Post-Op pain block at request of surgeon Positioning: supine Laterality: left Block technique: ultrasound guided Ultrasound image: image acquired and saved Popliteal blockade were identified. Local anesthetic was injected under direct visualization and good circumferential spread was observed. No pain on injection or needle advancement. No complications noted patient tolerated procedure well. Injection technique: single injection Needle type: echogenic Gauge: 20G Length: 10 Test dose: no test dose given Incremental injection of local anesthetic with aspiration every:5cc Pain with needle advancement or injection of local anesthetic: no PRE-PROCEDURE DETAILS: Appropriate hand hygiene, gown, cap, mask, protective eyewear, sterile gloves, skin preparation, sterile drape, and strict aseptic technique were utilized as applicable for the procedure.: yes Skin prep: chlorhexidine SEDATION / ANESTHESIA Anesthesia method: local infiltration POST-PROCEDURE DETAILS: Procedure completed successfully: successful procedure Other complications: none Anesthesia Preprocedure Evaluation - Pavan De Souza APRN, CRNA - 02/19/2019 2:06 PM CDT Preprocedure Anesthesia & H&P Assessment Pertinent components of the patient's history including current problem list, medical history, surgical history, family history, social history, medications and allergies were reviewed. Present illnessand pre-op diagnosis were confirmed. The planned surgery / procedure was verified with the patient /legal guardian. The patient's general health condition remains unchanged PROBLEM LIST Relevant Problems RESP (+) Asthma NOS Other (+) Fracture Ankle Closed Initial Left (+) Obesity Body Mass Index 30-39.9 Adult (+) Pain Hip Left OBJECTIVE PHYSICAL EXAMINATION Airway (HEENT) Mallampati: II TM Distance: >3 FB Neck ROM: Full Mouth Opening: >3 cm Upper Lip Bite Test Class: I Cardiovascular Rhythm: Regular Rate: Normal Cardiovascular Assessment: cardiovascular normal Functional Capacity: >4 METS Pulmonary Pulmonary Assessment: Clear General / Constitutional Constitutional Assessment: Normal General State of Health:: healthy appearing and calm Neurological Normal Dental Normal Abdomen Normal Musculoskeletal Normal Skin Normal ASSESSMENT / PLAN ANESTHESIA PLAN ASA: 2 Anesthesia Plan: regional Pt elected SAB with popliteal block Patient seen and allergies reviewed, anesthesia plan and risks discussed directly with patient /legal guardian or through an furnace charger.. Risks/Benefits/Alternatives of Blood transfusion discussed with patient, including an opportunity toask questions and/or decline some or all transfusion therapies. The patient consented to the use of all blood products, as deemed medically necessary Approval to Proceed: approved for anesthesia documented in this encounter Miscellaneous Notes Addendum Note - Pavan De Souza APRN, CRNA - 02/22/2019 8:15 AM CDT Addendum created 02/22/19814 by Pavan De Souza APRN, CRNA Intraprocedure Flowsheets edited documented in this encounter Plan of Treatment Not on filedocumented as of this encounter Procedures Procedure Name Priority Date/Time Associated Comments Diagnosis ANESTHESIA REGIONAL Routine 02/20/2019 3:36 PM Re sults for this BLOCK CDT procedure are i n the results section. MC ANE NERVE BLOCK Routine 02/20/2019 3:36 PM Res ults for this WITH ULTRASOUND CDT procedure ar e in the results section. GA US GUIDE PLC NDL Routine 02/20/2019 3:36 PM Re sults for this CDT procedure are i n the results section. GA INJ ANES SCIATIC Routine 02/20/2019 3:36 PM Re sults for this NERVE CDT procedure are i n the results section. documented in this encounter Results Regional Block (02/20/2019 3:36 PM CDT) Narrative Pavan De Souza APRN, CRNA - 019 3:36 PM CDT Pavan De Souza APRN, CRNA ? 02/20/2019 ??3:37 PM Regional Block Performed by: Pavan De Souza APRN, CRNA Authorized by: Pavan De Souza APRN, CRNA Location: OR PROCEDURE DETAILS: Block type: primary anesthetic ?? Neuraxial: spinal ?? Positioning: sitting ?? Approach: midline Level inserted: L4-5 Block technique: landmark technique ?? Injection technique: single injection Needle type: pencan Gauge: 25G Length: 5 CSF: yes ??Pain with needle advancement or injection of local anesthetic: no ?? PRE-PROCEDURE DETAILS: ?? Appropriate hand hygiene, gown, cap, mas k, protective eyewear, sterile gloves, skin preparation, sterile drape, and strict aseptic technique were utilized as applicable for the procedure .: yes ?? Skin prep: chlorhexidine SEDATION / ANESTHESIA Anesthesia method: local infiltration POST-PROCEDURE DETAILS: Procedure completed successfully: succes sful procedure Other complications: none Pavan De Souza APRN, CRNA PROCEDURE/MINOR SURGICAL ORDERABLES GA INJ ANES SCIATIC NERVE, GA US GUIDE PLC NDLDAYA ANE NERVE BLOCK WITH ULTRASOUND (02/20/2019 3:36 PM CDT) Narrative Pavan De Souza APRN, CRNA - 019 3:36 PM CDT Pavan De Souza APRN, CRNA ? 02/20/2019 ??3:36 PM Regional Block Performed by: Pavan De Souza APRN, CRNA Authorized by: Pavan De Souza APRN, CRNA Location: Pre Op / PACU PROCEDURE DETAILS: Block type: post-op pain block ?? Block type comment: Post-Op pain block a t request of surgeon Positioning: supine ?? Laterality: left Block technique: ultrasound guided ?? Ultrasound image: image acquired and rai ed Popliteal blockade were identified. Loca l anesthetic was injected under direct visualization and good circumfere ntial spread was observed. No pain on injection or needle advancement. No c omplications noted patient tolerated procedure well. Injection technique: single injection Needle type: echogenic Gauge: 20G Length: 10 Test dose: no test dose given ?? Incremental injection of local anestheti c with aspiration every:5cc Pain with needle advancement or injectio n of local anesthetic: no ?? PRE-PROCEDURE DETAILS: ?? Appropriate hand hygiene, gown, cap, mas k, protective eyewear, sterile gloves, skin preparation, sterile drape, and strict aseptic technique were utilized as applicable for the procedure .: yes ?? Skin prep: chlorhexidine SEDATION / ANESTHESIA Anesthesia method: local infiltration POST-PROCEDURE DETAILS: Procedure completed successfully: succes sful procedure Other complications: none Pavan De Souza APRN, CRNA PROCEDURE/MINOR SURGICAL ORDERABLES documented in this encounter Visit Diagnoses Not on filedocumented in this encounter Administered Medications Inactive Administered Medications - up to 3 most recent administrations Medication Order MAR Action Action Date Dose Rate Site chloroprocaine 20 mg/mL (2 %) Given 02/20/2019 3:21 PM CDT 2 mL injection (NESACAINE) As needed, Starting on Tue02/20/19 at 1521, Anesthesia Intra-op clindamycin in D5W IVPB 600 mg (CLEOCIN) Given 02/20/2019 3:34 PM CDT 600 mg 600 mg (rounded from 825 mg = 7.5 mg/kg ? 110 kg), intravenous, at 100 mL/hr, Administer over 30 Minutes, Once, On Tue02/20/19 at 1345, For 1 dose, Intra-Op, Preoperatively within 1 hour prior to surgical incision premix bag, Indications: Prophylaxis, surgical dexamethasone injection (DECADRON) Given 02/20/2019 3:34 PM CDT 4 mg As needed, Starting on Tue02/20/19 at 1534, Anesthesia Intra-op fentaNYL injection (SUBLIMAZE) Given 02/20/2019 3:18 PM CDT 50 mcg intravenous, As needed, Starting on Tue02/20/19 at 1518, Anesthesia Intra-op Given 02/20/2019 2:53 PM CDT 50 mcg lactated ringers Rate/Dose Verify 02/20/2019 2:53 PM CDT 20 mL/hr, intravenous, Continuous, Starting on Tue02/20/19 at 1345, Pre-Op New Bag 02/20/2019 2:15 PM CDT 20 mL/hr 20 mL/hr midazolam (PF) injection (VERSED) Given 02/20/2019 3:18 PM CDT 1 mg intravenous, As needed, Starting on Tue02/20/19 at 1518, Anesthesia Intra-op Given 02/20/2019 2:53 PM CDT 3 mg ondansetron (PF) injection (ZOFRAN) Given 02/20/2019 3:34 PM CDT 4 mg As needed, Starting on Tue02/20/19 at 1534, Anesthesia Intra-op propofol 10 mg/mL infusion New Bag 02/20/2019 3:21 PM 75 mcg/kg/mi n 49 mL/hr (DIPRIVAN) CDT Continuous Infusion: Per Instructions PRN, Starting on Tue02/20/19 at 1521, Anesthesia Intra-op documented in this encounter Additional Health Concerns Assessment Noted Time PHQ-9 Depression Total Score: 10 11/08/2018 12:47 PM C DT documented as of this encounter Care Teams Resolution Expert Relationship Specialty Start Date End Date Chandni Urbina, TOBI, C.N.P., PCP - General Family Medicine 06/06/19 [facility] [address] [place] [address] documented as of this encounter
--- OUTSIDE RECORDS SUMMARY | 2022-04-07 13:15 | XMS_ITS | Encounter Summary ---
:1995 Author Organization [facility] Address [address] [place] [address] Care Team Providers Name Role Phone Chandni Matos APRN, C.N.Mana, D.N.P. Primary Care Provider Encounter Details Date Type Department Care Team Description 10/17/2018 Clinical Communication Department of [facility] Chandni Matos, Medicine, [facility]BI, C.N.P., Clinic, in [place] [address] [phone] Social History Tobacco Use Types Packs/Day Years [...] 10/23/2020 relatives? How often do you attend anglican or jewish Never 10/23/2020 services? 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 - 10/25/2018 6:49 AM CDT Addended by: CHANDNI MATOS on: 10/25/2018 06:49 AM Modules accepted: Orders Telephone Encounter - Chandni Matos APRN, C.N.P., D.N.P. - 10/25/2018 6:49 AM CDT AirDuo sent to pharmacy. Thanks. Addendum Note - Lauren Rollins RGonzaloN. - 10/24/2018 2:53 PM CDT Addended by: LAUREN ROLLINS on: 10/24/2018 02:53 PM Modules accepted: Orders Telephone Encounter - Lauren Rollins R.N. - 10/24/2018 2:49 PM CDT INFORMATION DISCUSSED Vandana from [facility] Called and states that Advair is not covered by patient's insurance either. What is covered is AirDuo (fluticasone and Salmeterol). This medication comes in a 232 mcg/14mcg dosing (the 113mcg/14mcg dosing is not available on the market currently). Vandana is wondering if this could be prescribed for patient and have her adjust to 1 puff 2 times daily (currently on 2 puffs 2 timesdaily). Pended as requested. Please discontinue Advair if OK with change. PLAN Disposition/Recommendation: provider notified and awaiting provider recommendations The following references were used: nursing clinical judgement Telephone Encounter - Chandni Matos APRN, C.N.P., D.N.P. - 10/17/2018 4:19 PM CST Advair prescribed. Berto Aldrich Thanks. NISTRATIVE ACCOUNTANT Telephone Encounter - Edith Corona R.N. - 10/17/2018 11:30 AM ADMINISTRATIVE ACCOUNTANT Please advise on the requested alternative. NISTRATIVE ACCOUNTANT Telephone Encounter - Felisha Dumont - 10/17/2018 9:42 AM CST Reason for Communication: [facility] called and stated the prescription for Breo Ellipta is not covered by patients insurance, the one that is covered is fluticasone salmeterol inhaler. Current Can Nursing/Provider leave a detailed message: Did the patient refuse triage through Nurse line? (for symptom based concerns) Action Needed: new prescription Name of Medication (if relevant): NISTRATIVE ACCOUNTANT documented in this encounter Plan of Treatment Not on filedocumented as of this encounter Visit Diagnoses Not on filedocumented in this encounter Additional Health Concerns Assessment Noted Time PHQ-9 Depression Total Score: 15 10/11/2018 12:[address] documented as of this encounter Care Teams Industrial Gas Fitter Relationship Specialty Start Date End Date Chandni Matos APRN, C.N.P., PCP - General Family Medicine 06/06/19 [place] [address] [place] [address] documented as of this encounter
--- OUTSIDE RECORDS SUMMARY | 2022-04-07 13:16 | XMS_ITS | Encounter Summary ---
:1995 Author Organization [facility] Address [address] [place] [address] Care Team Providers Name Role Phone Chandni Urbina APRN C.N.P., D.N.P. Primary Care Provider Reason for Visit Outpatient (Routine) - Closed Specialty Diagnoses / Procedures Referred By Contact Refer red To Contact Diagnoses Radiculopathy Lumbar Lizzie June II, M.D. [facility] Procedures EMG [address] [place] [phone] Referral ID Status Reason Start Date Expiration Date Visits Requ ested Visits Authorized [id number] Closed 12/23/2017 06/21/2018 1 1 Encounter Details Date Type Department Care Team Description 03/01/2018 Diagnostic Department of Neurology Chloe Han, Rad[place]opathy [place]bar [place] DGonzalo[place]onz[place] [address] [facility] 701 [place] [address] [place] [phone] (Wo rk) Social History Tobacco Use Types Packs/Day Years Used Date Smoking Tobacco: Former Cigarettes 0.3 7 Quit : 01/31/2018 Smokeless Tobacco: Never [...] often do you attend oriental orthodox or temple Never 10/23/2020 services? 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 documented in this encounter Results EMG (03/01/2018 10:10 AM CDT) Specimen (Source) Anatomical Collection Method Collection Time Re ceived Time Location / / Volume Laterality 03/01/2018 9:30 AM CDT Narrative EMG - 03/01/2018 10:30 AM CDT 01-Mar-2018 ? Electromyography ? Final Report Study Number: 1 EMG Lithographic Printing Machinist: Chloe Han Referred by: LIZZIE JUNE II ([phone] or [phone]) Referred for: Query lumbar radiculopathy on the left Referral Code: RX: 001 ??001 SUMMARY: Prior to starting the procedure , the patient's identity was verified, pertinent available records were reviewed, the nature of the procedure was explained, the appropriate sites of the exam were confirmed directly with the pa tient, and a pre-procedure pause was performed for final verification of all of the above. ?? Nerve conduction studies and needle exam ination were normal. CLINICAL INTERPRETATION: The EMG is norm al. There is no electrophysiologic evidence of a lumbosacral radiculopathy on the left. ? ? Wade Han () NERVE CONDUCTIONS ?Temperat ure: 30.3 ? ??C ?Record ?Rep ?Normal ? Normal Distal Normal ??F-Wave F-Wave Nerve ? Type ?Site ?Stim Side Amp ??Amp ? CV CV ? Lat ?? Lat ? Lat ?Est ?extenso r ?digitor um ?brevis Peroneal ?motor ?? (pedis) ?L ?10.0 (> 2.0) 48 (> 41) 4.6 ?? (< 6.6) ?abducto r Tibial ?motor ?? hallucis ? L ?13.9 (> 4.0) 51 (> 40) 4.0 ?? (< 6.1) ? Sural ? sensory ankle ?L ?17 ?? (> 6.0) ?(> 40) 3.8 ?? (< 4.5) ? NEEDLE EMG ? Ins ?Spo nt ? [employer] ?Recruitment ?? Duration ?? Amplitude Phases ? Muscle ?Side Act ?Fib ??Fa sc Normal Activ Reduced Rapid Long Short High Low ??% ?Turns Medial Gastroc ? L ?Normal 0 ?0 ?Normal ? Paraspinal, Lumbar (Lower) ? L ?Normal 0 ?0 ?------ ? Gluteus tanisha ? L ?Normal 0 ?0 ?Normal ? Tensor fasciae latae L ?Normal 0 ?0 ?Normal ? Vastus medialis ?L ?Normal 0 ?0 ?Normal ? Tibialis Anterior ?L ?Normal 0 ?0 ?Normal ? This interpretation has been electron ically signed: Chloe Han DO at 03/01/2018 10:28:41 AM CDT Lizzie June II, M.D. NEUROLOGY ORDERABLES Performing Organization Address City/State/ZIP Code Phon e Number [facility] documented in this encounter Visit Diagnoses Diagnosis Radiculopathy Lumbar documented in this encounter Additional Health Concerns Assessment Noted Time PHQ-9 Depression Total Score: 11 02/10/2018 4:00 PM CD T documented as of this encounter Care Teams Desizing Machine Operator Head End Relationship Specialty Start Date End Date Chandni Urbina, TOBI, C.N.P., PCP - General Family Medicine 06/06/19 D.N.P. [address] [place] [address] documented as of this encounter
--- OUTSIDE RECORDS SUMMARY | 2022-04-07 13:16 | XMS_ITS | Encounter Summary ---
:1995 Author Organization [facility] Address [address] [place] [address] Care Team Providers Name Role Phone Holley Saucedo APRN C.NGonzaloPGonzalo Primary Care Provider Encounter Details Date Type Department Care Team Description 10/27/2017 Hospital Encounter [facility] [phone] Social History Tobacco Use Types Packs/Day Years Used Date Smoking Tobacco: Former Cigarettes 0.3 7 Quit : 08/18/2017 Smokeless Tobacco: Never Alcohol Use Standard Drinks/Week [...] How often do you attend moravian or muslim Never 10/23/2020 services? 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 fluticasone Administer 2 sprays 0 07/18/201410/13 (for_FLONASE) 50 into affected mcg/actuation nasal nostril(s) 2 (two) spray times a day as needed. fluticasone-salmeterol Inhale 1 puff. 0 2 11/04/2017 (for_ADVAIR DISKUS) 250-50 mcg/dose diskus inhaler lamoTRIgine Take 1 tablet (200 mg 30 tablet 11 08/30/2017 (for_LaMICtal) 200 mg total) by mouth daily. tabletIndications: Bipolar II Disorder (HCC) LEVONORGESTREL-ETHIN Take 1 tablet by mouth 0 10/201603/08/2018 ESTRADIOL (CHATEAL daily. ORAL) montelukast (SINGULAIR) Take 10 mg by mouth as 0 03/22/2013 02/19/2019 10 mg tablet directed. prenat.vits,hernandez,min-iro Take 1 tablet by mouth 0 08/20/2013 02/19/2019 n-folic ( daily. VITAMIN) tablet documented as of this encounter Plan of Treatment Not on filedocumented as of this encounter Procedures Procedure Name Priority Date/Time Associated Comments Diagnosis DX HIP AND PELVIS RAD - Routine 10/27/2017 10:24 Pain Low Back Resu lts for this LEFT 2-3 VIEWS (most inpatients AM CDT procedure are in and all the results outpatients) section. documented in this encounter Results DX Hip And Pelvis Left 2-3 Views (10/27/2017 10:24 AM CDT) Anatomical Region Laterality Modality Lower Extremity, Pelvis, Hip Left Digital Rad iography Specimen (Source) Anatomical Collection Method Collection Time Re ceived Time Location / / Volume Laterality 10/27/2017 10:44 AM CDT Impressions 10/27/2017 10:44 AM CDT IMPRESSION: Negative. Narrative 10/27/2017 10:44 AM CDT EXAM: DX HIP AND PELVIS LEFT 2-3 VIEWS COMPARISON: None FINDINGS: No acute fracture, degenerativ e change or soft tissue abnormality. Procedure Note Omar Riley M.D. - 10/27/2017Formatti ng of this note might be different from the original. EXAM: DX HIP AND PELVIS LEFT 2-3 VIEWS COMPARISON: None FINDINGS: No acute fracture, degenerativ e change or soft tissue abnormality. IMPRESSION: Negative. Charisma Castellon P.A.-C. IMG DIAGNOSTIC IMAGING PRO CEDURES documented in this encounter Visit Diagnoses Diagnosis Pain Low Back Unspecified documented in this encounter Additional Health Concerns Assessment Noted Time PHQ-9 Depression Total Score: 9 08/30/2017 4:00 PM TOBACCO SPRAYER documented as of this encounter Care Teams Marketing Information Coordinator Relationship Specialty Start Date End Date Holley Saucedo APRN, C.N.P. PCP - General 01/27/17 12/09/17 documented as of this encounter
--- OUTSIDE RECORDS SUMMARY | 2022-04-07 13:16 | XMS_ITS | Encounter Summary ---
:1995 Author Organization [facility] Address [address] [place] [address] Care Team Providers Name Role Phone Chandni Urbina APRN C.N.P., D.N.P. Primary Care Provider Encounter Details Date Type Department Care Team Description 12/19/2017 Orders Only Department of Family Chandni Urbina AP RN, Medicine, [place] C.N.P., D .N.P. Clinic, in [address] [address] [place] [address] [place], [place] [address] [phone] Social History Tobacco Use Types Packs/Day Years [...] How often do you attend sikhism or faith Never 10/23/2020 services? 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 [address] [place] [address] documented as of this encounter
--- OUTSIDE RECORDS SUMMARY | 2022-04-07 13:16 | XMS_ITS | Encounter Summary ---
:1995 Author Organization [facility] Address [address] [place] [address] Care Team Providers Name Role Phone Holley Saucedo APRN, C.N.P. Primary Care Provider [phone] Reason for Visit Reason Comments Follow-up Patient is here to update wo rk restrictions for left hip pain. Appointment Request (Routine) - Closed Specialty Diagnoses / Procedures Referred By Contact Refer red To Contact Family Medicine Referral ID Status Reason Start Date Expiration Date Visits Requ ested Visits Authorized [id number] Closed 10/11/2017 04/09/2018 1 1 Encounter Details Date Type Department Care Team Description 10/12/2017 Office Visit Department of Family Chandni Urbina Pa in Hip Left (Primary Medicine, [place] TOBI, C.N.P., Dx) Clinic, in [place] [address] [phone] [phone] Social History Tobacco Use Types Packs/Day Years [...] often do you attend latter day or advent Never 10/23/2020 services? 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 documented as of this encounter Last Filed Vital Signs Vital Sign Reading Time Taken Comments Blood Pressure 113/62 10/12/2017 2:32 PM CUSTOMER OPERATIONS MANAGER Pulse 74 10/12/2017 2:32 PM CUSTOMER OPERATIONS MANAGER Temperature 36.5 ??C (97.7 ??F) 10/12/2017 2:32 PM CUSTOMER OPERATIONS MANAGER Respiratory Rate 16 10/12/2017 2:32 PM CUSTOMER OPERATIONS MANAGER Oxygen Saturation 97% 10/12/2017 2:32 PM CUSTOMER OPERATIONS MANAGER Inhaled Oxygen Concentration - - Weight 99.3 kg (218 lb 14.7 oz) 10/12/2017 2:32 PM CUSTOMER OPERATIONS MANAGER Height - - Body Mass Index 35.33 08/31/2017 4:59 PM CUSTOMER OPERATIONS MANAGER documented in this encounter Progress Notes Chandni Urbina, TOBI, C.N.P., D.N.P. - 10/12/2017 2:30 PM CST CHIEF COMPLAINT / REASON FOR VISIT Carly Joseph is a 22 y.o. female who presents for evaluation of Follow-up (Patient is here to update work restrictions for left hip pain.). HISTORY OF PRESENT ILLNESS Carly is a pleasant 22-year-old female, with a history of left hip pain for the past several months with no known injury or trauma, that presents to the clinic today for follow-up on work restrictions and completion of paperwork. She has recently had an MRI done which does not suggest any acute fracture bone marrow edema, contusion or tear. She did have an appointment with Orthopedics last week butneeded to cancel due to a in the family. She has tried mdni-bgp-bhvenrg medications as well asphysical therapy without significant improvement of symptoms. She has previously been on work restrictions - lifting no more than 25 lb at a time with minimal bending and kneeling squatting or twisting. 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 Brief Review of Systems: A brief review of systems was negative except for that mentioned in the history of present of illness. Current Outpatient Medications Medication Sig ??? albuterol (for_ACCUNEB) 2.5 mg /3 mL nebulizer solution one unit dose quid and q2hr prn ??? albuterol (VENTOLIN HFA) 90 mcg/actuation inhaler Inhale 2 puffs every 4 (four) hours as needed for wheezing. ??? fluticasone (for_FLONASE) 50 mcg/actuation nasal spray Administer 2 sprays into affected nostril(s) 2 (two) times a day. ??? fluticasone-salmeterol (for_ADVAIR DISKUS) 250-50 mcg/dose diskus inhaler Inhale 1 puff. ??? lamoTRIgine (for_LaMICtal) 200 mg tablet Take 1 tablet (200 mg total) by mouth daily. ??? LEVONORGESTREL-ETHIN ESTRADIOL (CHATEAL ORAL) Take 1 tablet by mouth daily. ??? penicillin V potassium (for_VEETIDS) 500 mg tablet Take 1 tablet (500 mg total) by mouth 2 (two)times a day for 10 days. Allergies Allergen Reactions ??? Cefixime Other (see comments) Unknown reaction as a child PHYSICAL EXAM BP 113/62 (BP Location: Left arm, Patient Position: Sitting, Cuff Size: Large) Pulse 74 Temp 36.5 ??C (Temporal) Resp 16 Wt 99.3 kg LMP 10/05/2017 SpO2 97% ? No BMI 35.33 kg/m?? Body mass index is 35.33 kg/m??. GENERAL: Patient is in no distress. Capable of full communication without difficulty. Patient is polite and cooperative. NEURO: Alert and oriented x3, nonfocal, moving all 4 extremities. CN II-XII grossly intact. PSYCH: Affect is appropriate ASSESSMENT/PLAN: #1 Pain Hip Left Work restriction form was completed and copies were given to patient at time of her appointment. I have placed her on the same work restrictions per PT recommendations until she is able to see Orthopedics. She will schedule an appointment soon. Continue with conservative management of hip pain - over-the- counter analgesics, ice/heat, gentle stretching, and rest. Follow up with concerns. Plan was discussed with patient and is in agreement with plan. All questions were answered, side effects of any/all new medications were discussed. Patient left in no acute distress. Ready to learn. No apparent learning barriers were identified. Learning preferences include listening. Explained diagnosis and treatment plan. Patient/Child/Caregiver expressed understanding of the content. Chandni Urbina APRN, C.N.P., D.N.P. OMER OPERATIONS MANAGER documented in this encounter Plan of Treatment Not on filedocumented as of this encounter Visit Diagnoses Diagnosis Pain Hip Left - Primary documented in this encounter Additional Health Concerns Assessment Noted Time PHQ-9 Depression Total Score: 9 08/30/2017 4:00 PM CUSTOMER OPERATIONS MANAGER documented as of this encounter Care Teams Graduating Machine Operator Relationship Specialty Start Date End Date Holley Saucedo APRN, C.N.P. PCP - General 01/27/17 12/09/17 documented as of this encounter
--- OUTSIDE RECORDS SUMMARY | 2022-04-07 13:16 | XMS_ITS | Encounter Summary ---
:1995 Author Organization [facility] Address [address] [place] [address] Care Team Providers Name Role Phone Chandni Urbina APRN, C.N.P., D.N.P. Primary Care Provider Encounter Details Date Type Department Care Team Description 09/15/2018 Orders Only [facility] - Chandni Bhat, TOBI, [address] , [place]STHIAN [address] C.N.P., D.N.P. BHAVIN PATEL [phone] [place] [address] [place], [place] [address] (Wo rk) Social History Tobacco Use Types [...] How often do you attend yazidism or voodoo Never 10/23/2020 services? 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 [address] [place] [address] documented as of this encounter
--- OUTSIDE RECORDS SUMMARY | 2022-04-07 13:16 | XMS_ITS | Encounter Summary ---
:1995 Author Organization [facility] Address [address] [place] [address] Care Team Providers Name Role Phone Chandni Urbina APRN, C.N.Mana, D.N.P. Primary Care Provider Reason for Visit Reason Comments Hip Pain Follow up left hip pain. Brittny verduzco work restrictions reviewed. Appointment Request (Routine) - Closed Specialty Diagnoses / Procedures Referred By Contact Refer red To Contact Family Medicine Referral ID Status Reason Start Date Expiration Date Visits Requ ested Visits Authorized [id number] Closed 01/05/2018 01/05/2019 1 Encounter Details Date Type Department Care Team Description 01/06/2018 Office Visit Department of Family Chandni Urbina He rniated Disc Lumbar (Primary Dx); Medicine, [place] TOBI C.N.PGonzalo, Pain Low Back Clinic, in [place] [address] [phone] Social History Tobacco Use Types Packs/Day Years Used Date Smoking Tobacco: Every Day Cigarettes 0.3 7 Smokeless Tobacco: Never Alcohol Use Standard Drinks/Week [...] How often do you attend advent or christianity Never 10/23/2020 services? 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 - 01/06/2018 12:00 PM CDT CHIEF COMPLAINT / REASON FOR VISIT Carly Joseph is a 22 y.o. female who presents for evaluation of Hip Pain (Follow up left hip pain. Needs work restrictions reviewed.). HISTORY OF PRESENT ILLNESS Carly is a pleasant 22 y.o. female, with a history of bipolar disorder, asthma, herniated lumbar disc, that presents to the clinic today for follow-up. She is requesting updated work restrictions forher job today. She is currently seeing Pain Management in [place] - Dr. Adkins for ongoing low back pain related to her herniated disc. She plans to see him back in the clinic after her scheduled EMG on03/01/18. She last saw Dr. Adkins on 12/23/17. She has been doing physical therapy, OTC medication management, ice/heat, gentle stretching, and rest. 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 She also picks up in Dietary here in the [facility]. She would like to return to work. She believes that she'll be able to work downstairs for a full 8 hours, but probably not in half-way dueto the heavy lifting required. She is otherwise doing well, she voices no concerns today. The following portions of the patient's history [...] nostril(s) 2 (two) times a day. ??? fluticasone-vilanterol (for_BREO ELLIPTA DISKUS) 100-25 mcg/actuation inhaler Inhale 1 puff daily. ??? lamoTRIgine (LaMICtal) 150 mg tablet Take 2 tablets (300 mg total) by mouth daily. ??? LEVONORGESTREL-ETHIN ESTRADIOL (CHATEAL ORAL) Take 1 tablet by mouth daily. Allergies Allergen Reactions ??? Cefixime Other (see comments) Unknown reaction as a child PHYSICAL EXAM BP 117/68 (BP Location: Left arm, Patient Position: Sitting, Cuff Size: Large) Pulse 69 Temp 36.3 ??C (Temporal) Resp 16 Wt 100.7 kg SpO2 97% ? No BMI 36.11 kg/m?? Body mass index is 36.11 kg/m??. GENERAL: Patient is in no distress. Capable of full communication without difficulty. Patient is polite and cooperative. NEURO: Alert and oriented x3, nonfocal, moving all 4 extremities. CN II-XII grossly intact. PSYCH: Affect is appropriate ASSESSMENT/PLAN: #1 Herniated Disc Lumbar Continue with Pain Management, PT and conservative options. EMG ordered. 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 She is unable to work at [place] [employer] until further notice and guidance from Pain Specialty. #2 Low Back Pain As above. Patient was instructed to present urgently to [...] the content. Chandni Urbina APRN, C.N.P., D.N.P. documented in this encounter Plan of Treatment Not on filedocumented as of this encounter Visit Diagnoses Diagnosis Herniated Disc Lumbar - Primary Pain Low Back Unspecified documented in this encounter Additional Health Concerns Assessment Noted Time PHQ-9 Depression Total Score: 13 01/02/2018 10:00 AM C DT documented as of this encounter Care Teams Director Retirement Relationship Specialty Start Date End Date Chandni Urbina APRN, C.N.P., PCP - General Family Medicine 06/06/19 D.N.P. [address] [place] [phone] documented as of this encounter
--- OUTSIDE RECORDS SUMMARY | 2022-04-07 13:16 | XMS_ITS | Encounter Summary ---
:1995 Author Organization [facility] Address [address] [place] [address] Care Team Providers Name Role Phone Chandni Urbina APRN, C.N.Rodrigo., D.N.P. Primary Care Provider Reason for Visit Reason Comments Communication Encounter Details Date Type Department Care Team Description 11/21/2017 Clinical Department of Rav[place], Communication Communication Gastroenterology in [place], [place] P.A.-C. [address] [facility] 701 [place] [address] [place], [place] [phone] [address] Social History Tobacco Use Types Packs/Day [...] How often do you attend buddhism or faith Never 10/23/2020 services? 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 - 11/24/2017 1:50 PM CDT Patient was called, she requests the letter be mailed. Letter put in mail for tomorrow. Telephone Encounter - Charisma Castellon P.A.-C. - 11/24/2017 11:34 AM CDT Work note was done at her visit and given to her. I reprinted. Please call her. Thanks, Eder Telephone Encounter - Carmencita Jain L.P.N. - 11/21/2017 1:51 PM CDT Is this completed? Telephone Encounter - Lo Stafford - 11/21/2017 1:33 PM CDT Patient is waiting for a return to work note from Eder. Return to work for 4 hours per day until shemeets with Dr. Adkins. Patient can be reached at [phone] with any questions, thank you. documented in this encounter Plan of Treatment Not on filedocumented as of this encounter Visit Diagnoses Not on filedocumented in this encounter Additional Health Concerns Assessment Noted Time PHQ-9 Depression Total Score: 10 11/03/2017 4:00 PM CD T documented as of this encounter Care Teams Electronics Technician Apprentice Relationship Specialty Start Date End Date Chandni Urbina APRN, C.N.P., PCP - General Family Medicine 06/06/19 D.N.P. [address] [place] [address] documented as of this encounter
--- OUTSIDE RECORDS SUMMARY | 2022-04-07 13:16 | XMS_ITS | Encounter Summary ---
:1995 Author Organization [facility] Address [address] [place] [address] Care Team Providers Name Role Phone Holley Saucedo APRN, C.N.P. Primary Care Provider [phone] Reason for Visit Reason Comments Communication ACT updated-within guideline s Encounter Details Date Type Department Care Team Description 11/03/2017 Clinical Department of Eros Zurita (ACT Communication Family MedicineoRsi updated-within [place] [address] [facility]) [facility], in [place], [place] [address] [place] [address] [facility] (Work) [place] [address] Social History Tobacco Use Types [...] 10/23/2020 relatives? How often do you attend religious or jewish Never 10/23/2020 services? 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 PCP - General 01/27/17 12/09/17 documented as of this encounter
--- OUTSIDE RECORDS SUMMARY | 2022-04-07 13:16 | XMS_ITS | Encounter Summary ---
:1995 Author Organization [facility] Address [address] [place] [address] Care Team Providers Name Role Phone Chandni Urbina APRN, C.N.Rodrigo., D.N.P. Primary Care Provider Reason for Visit Reason Comments Med Refill Encounter Details Date Type Department Care Team Description 08/31/2018 Refill Department of Family Medicine, [place] Saucedo, Med Refill [facility], in [address] [address] [place], [place] [address] [phone] Social History Tobacco Use Types Packs/Day Years [...] How often do you attend muslim or episcopalian Never 10/23/2020 services? 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 [address] [place] [address] documented as of this encounter
--- OUTSIDE RECORDS SUMMARY | 2022-04-07 13:16 | XMS_ITS | Encounter Summary ---
:1995 Author Organization [facility] Address [address] [place] [address] Care Team Providers Name Role Phone Holley Saucedo APRN, C.N.P. Primary Care Provider [phone] Reason for Visit Reason Comments Communication Encounter Details Date Type Department Care Team Description 09/23/2017 Clinical Communication Department of Pina Newman Communication Medicine, Hakeem Baker APRN, C.N.P. [facility], [address] [place] [address] [place], [place] (Work) [phone] Social History Tobacco Use Types Packs/Day Years Used Date Smoking Tobacco: Former Cigarettes 0.3 Smokeless Tobacco: Never Comments: quit 06/2017 Alcohol Use Standard Drinks/Week Comments Yes 2 [...] How often do you attend buddhism or restorationism Never 10/23/2020 services? 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 - 09/23/2017 12:07 PM SHIFT LEADER Pt called back to clinic, imaging results relayed to her. Pt verbalized understanding and transferred to scheduling for ortho visit. T LEADER Telephone Encounter - Edith Corona R.N. - 09/23/2017 11:16 AM SHIFT LEADER RN tried to contact pt, no answer, will try again after 12pm. Result note listed under imaging in pt's chart. T LEADER Telephone Encounter - Matilde Yeung - 09/23/2017 10:51 AM CST Patient returned nurse call regarding MRI results. She said the best time to reach her will be [id number]. T LEADER documented in this encounter Plan of Treatment Not on filedocumented as of this encounter Visit Diagnoses Not on filedocumented in this encounter Additional Health Concerns Assessment Noted Time PHQ-9 Depression Total Score: 9 08/30/2017 4:00 PM SHIFT LEADER documented as of this encounter Care Teams Ada Accommodation Consultant Relationship Specialty Start Date End Date Holley Saucedo APRN, C.N.P. PCP - General 01/27/17 12/09/17 documented as of this encounter
--- OUTSIDE RECORDS SUMMARY | 2022-04-07 13:16 | XMS_ITS | Encounter Summary ---
:1995 Author Organization [facility] Address [address] [place] [address] Care Team Providers Name Role Phone Chandni Urbina APRN, C.N.P., D.N.P. Primary Care Provider Reason for Visit Appointment Request (Routine) - Closed Specialty Diagnoses / Procedures Referred By Contact Refer red To Contact Family Medicine Referral ID Status Reason Start Date Expiration Date Visits Requ ested Visits Authorized [id number] Closed 06/13/2018 06/13/2019 1 Encounter Details Date Type Department Care Team Description 06/13/2018 Immunization Department of Family Chandni Urbina, munization Only Medicine, Hakeem BRITTON, C.N.P., (Primary D x) [facility], in D.N.P. [address] [address] [place], [place] [phone] (Work) [phone] Social History Tobacco Use Types Packs/Day Years [...] How often do you attend bahai or presybeterian Never 10/23/2020 services? 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 [address] [place] [address] documented as of this encounter
--- OUTSIDE RECORDS SUMMARY | 2022-04-07 13:16 | XMS_ITS | Encounter Summary ---
:1995 Author Organization [facility] Address [address] [place] [address] Care Team Providers Name Role Phone Chandni Urbina APRN, C.N.Rodrigo., D.N.P. Primary Care Provider Encounter Details Date Type Department Care Team Description 12/13/2017 Orders Only Department of Pain Charisma Castellon, Medicine in [facility] [address] [place] [address] [phone] Social History Tobacco Use Types Packs/Day Years [...] often do you attend latter day or adventism Never 10/23/2020 services? 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 [address] [place] [address] documented as of this encounter
--- OUTSIDE RECORDS SUMMARY | 2022-04-07 13:16 | XMS_ITS | Encounter Summary ---
:1995 Author Organization [facility] Address [address] [place] [address] Care Team Providers Name Role Phone Holley Saucedo APRN C.N.P. Primary Care Provider [phone] Reason for Visit Reason Comments Communication Encounter Details Date Type Department Care Team Description 11/03/2017 Clinical Communication Department of Mani Castellon Communication Orthopedic Surgery J, ManaADerrek in [address] [address] [place], [place] [phone] [address] (Work) [phone] Social History Tobacco Use Types Packs/Day Years [...] often do you attend jehovah's witness or evangelical Never 10/23/2020 services? 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 PCP - General 01/27/17 12/09/17 documented as of this encounter
--- OUTSIDE RECORDS SUMMARY | 2022-04-07 13:16 | XMS_ITS | Encounter Summary ---
:1995 Author Organization [facility] Address [address] [place] [address] Care Team Providers Name Role Phone Holley Saucedo APRN, C.N.P. Primary Care Provider [phone] Reason for Visit Reason Comments Med Refill Encounter Details Date Type Department Care Team Description 11/04/2017 Refill Department of [facility] Holley Saucedo APRN, Med Refill Medicine, [facility], in [address] [place] [address] [place], [place] [address] [phone] Social History Tobacco Use Types Packs/Day Years [...] How often do you attend zoroastrianism or muslim Never 10/23/2020 services? 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 PCP - General 01/27/17 12/09/17 documented as of this encounter
--- OUTSIDE RECORDS SUMMARY | 2022-04-07 13:16 | XMS_ITS | Encounter Summary ---
:1995 Author Organization [facility] Address [address] [place] [address] Care Team Providers Name Role Phone Chandni Urbina APRN, C.N.P., D.N.P. Primary Care Provider Encounter Details Date Type Department Care Team Description 08/23/[address] [facility] - Chandni Bhat, [place], [address] , [place] [address] C.N.P., D.N.P. BHAVIN PATEL [phone] [place] [address] [place], [place] [address] (Wo rk) Social History [...] 10/23/2020 relatives? How often do you attend buddhist or hindu Never 10/23/2020 services? 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 [address] [place] [address] documented as of this encounter
--- OUTSIDE RECORDS SUMMARY | 2022-04-07 13:16 | XMS_ITS | Encounter Summary ---
:[address] [facility] Address [address] [place] [address] Care Team Providers Name Role Phone Holley Saucedo APRN, C.N.P. Primary Care Provider [phone] Encounter Details Date Type Department Care Team Description 11/15/2017 Orders Only Department of [facility] Holley Saucedo, Medicine, [facility], C.N .P. Clinic, in [id number] [place] [address] [place], [place] [address] [phone] Social History Tobacco Use Types Packs/Day Years [...] How often do you attend orthodoxy or congregation Never 10/23/2020 services? 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 PCP - General 01/27/17 12/09/17 documented as of this encounter
--- OUTSIDE RECORDS SUMMARY | 2022-04-07 13:16 | XMS_ITS | Encounter Summary ---
:1995 Author Organization [facility] Address [address] [place] [address] Care Team Providers Name Role Phone Holley Saucedo APRN C.NGonzaloPGonzalo Primary Care Provider [phone] Reason for Referral MRI/CAT/PET Scan (Routine) - Closed Specialty Diagnoses / Procedures Referred By Contact Refer red To Contact Radiology Diagnoses Pain Low Back Unspecified Charisma Castellon, [facility] Region Procedures MR Lumbar Spine without IV Contrast P.AGonzalo-C. [address] [place] [phone] Referral ID Status Reason Start Date Expiration Date Visits Requ ested Visits Authorized [id number] Closed 10/27/2017 04/25/2018 1 1 Reason for Visit Reason Comments Pain Encounter Details Date Type Department Care Team Description 10/27/2017 Office Visit Department of Charisma Castellon Pain Hip Left (Primary Dx); Orthopedic Surgery in [facility] Pain Low Back [place], [place] [address] [facility] [address] [place], [place] [phone] Social History Tobacco Use Types Packs/Day Years [...] How often do you attend christianity or gnosticist Never 10/23/2020 services? 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 - 10/27/2017 12:00 AM CDT SUBJECTIVE REASON FOR CONSULT Low back pain and left hip pain. 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 She began having what she refers to as left hip pain December of last year. At the time she was moving and lifting, doing a lot of stairs and noticed a low back pain as well. She describes her pain as a shooting stabbing pain with numbness that radiates into the quadriceps to the knee but not typically past the knee. It got to the point where her left leg gave out on her a couple of times which instigatedher going to primary care. She saw primary care. An MRI was done of the left hip and normal; however, incidental notation of lumbar spine disk desiccation and protrusions noted. She followed in physical therapy for the hip only. Has not had her back addressed in therapy. She feels that her pain is better; however, she has not been at work since June of 2017 because she wasgiven work restrictions. 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 When describing the location of her pain, she points sweeping across the L2 through L4 region of thelumbar spine. She also then points to the area of the left buttock and lateral aspect of the hip as the source of her pain. She does not have any increased hip pain currently with any range of motion or activities such as getting in and out of a vehicle; however, she does describe that she notices this mostly when she is squatting and bending over. She denies any give- way or weakness currently. No bowel or bladder dysfunction. She has tried physical therapy in [facility] for the past 2 months, also anti-inflammatories. ALLERGIES/CONTRAINDICATIONS Cefexime. MEDICAL HISTORY As noted in the EMR. 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 She is a nonsmoker but had smoked previously. OBJECTIVE PHYSICAL EXAMINATION Lumbar Spine: Examined and normal today other than extension eliciting pain in the L2 to L4 region on the left. Diagonal extension is negative. Straight leg raising is negative. Lower Extremities: Show equal strength in all muscle groups, 5/5. DTRs are symmetric and intact. Pulses and perfusion intact. Neurosensory intact to light touch. Left Hip: She is nontender over the greater trochanter. Stinchfield's was negative. She has good strength about the hip on strength testing and full range of motion with pain elicited in the outer aspect of the hip and buttock with external rotation. DIAGNOSTICS X-rays of the left hip and lumbar spine reviewed with patient today. MRI of left hip is negative. ASSESSMENT / PLAN #1 Low back pain with left hip pain - question L3-L4 radiculopathy PLAN: MRI of the lumbar spine ordered and she is able to get in this afternoon. She is concerned about anxiety if she needs to go in head first for the MRI and I have prescribed her Valium 5 mg 1 tablet prior to the procedure and that was sent to the [facility] per her request. Physical therapy ordered for her lumbar spine. 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 Will await MRI results when considering return to work. Will consider returning her to work 4-hour days, but at least based on physical examination and her current symptoms I think she needs to get back to work, see how she continues to do. Of course, the MRI of the lumbar spine is still pending. 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 I told her I would call her with those results and make a recommendation on whether or not she will be seeing Dr. Adkins. Nonetheless, she needs to follow in physical therapy for her low back. When I call her with the MRI, we can also discuss her return to work and send any paperwork on her behalf. She is in agreement. This was a 45-minute visit, 40 minutes spent in counseling and coordination of care. Job ID: [id number] documented in this encounter Miscellaneous Notes Telephone Encounter - Charisma Castellon P.A.-C. - 10/27/2017 12:00 AM CDT I have contacted the patient with her MRI results which she was able to review on patient portal. Patient has had ongoing back pain. 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 She was initially being followed for hip pain but low backpain seems to be her main presenting issue when I saw her. Therefore, MRI was ordered of her lumbar spine. She had a previous MRI of her hip which was negative. MRI of the lumbar spine shows L5-S1 moderate-sized disc bulge which slightly effaces the anterior thecal sac. Mild bilateral lateral recess narrowing and mild bilateral neural foraminal narrowing. Discbulge touches the left L5 nerve root. These results were relayed to the patient. We discussed previously referral to Dr. Adkins for consideration of injection and I have forwarded her MRI results on to Dr. Adkins with a request for his recommendation on whether he would like to see her for an injection only or consultation. I will have Dr. Adkins's office contact her to schedule that appointment once Dr. Adkins weighs in. Patient is agreeable to physical therapy for her lumbar spine but she does go to school for her YOUTH OFFICER degree. An order was placed for lumbar spine physical therapy and she was given that contact information. She would like to try to go back to work at least without restriction as they have nothing availablefor her if she has restriction but at least 4 hours a day to see how she does. 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 Adkins know how she is doing with those 4 hour shifts. We will send her a note to go back to work for 4 hour shifts. If she has any difficulty with this then she should contact me Iliana will take her off of work. She does tell me as part of her schooling last evening she was working a shift, had pain at 5/10 butthis is standard for her. Again I reiterated that if she has any difficulty she should let me know and that physical therapy long-term back home back program is going to be in her best interest ultimately at least based on MRI of her lumbar spine. She is in agreement. She was provided my contact information. Job ID: [id number] documented in this encounter Plan of Treatment Not on filedocumented as of this encounter Results MR Lumbar Spine without IV Contrast (10/27/2017 3:54 PM CDT) Anatomical Region Laterality Modality Lumbar Spine N/A Magnetic Resonance Specimen (Source) Anatomical Collection Method Collection Time Re ceived Time Location / / Volume Laterality 10/27/2017 3:58 PM CDT Impressions 10/27/2017 4:06 PM CDT IMPRESSION: 1. ??L5-S1 disc desiccation with a moder ate size disc bulge. Narrative 10/27/2017 4:06 PM CDT EXAM: ??MR LUMBAR SPINE WITHOUT IV CONTRAST COMPARISON: ??10/27/2017 radiographs FINDINGS: ?? Conus medullaris terminates at L1-L2. No rmal alignment. No compression deformity. L5-S1 disc desiccation. L1-2: ??No disc bulge, spinal canal sten osis or neural foraminal narrowing. L2-3: ??No disc bulge, spinal canal sten osis or neural foraminal narrowing. L3-4: ??No disc bulge, spinal canal sten osis or neural foraminal narrowing. L4-5: ??No disc bulge or spinal canal st enosis. No neural foraminal narrowing. L5-S1: ??Moderate-sized disc bulge, whic h slightly effaces the anterior thecal sac. Mild bilateral lateral recess narro wing and mild bilateral neural foraminal narrowing. Disc bulge touches the left L 5 nerve right. For the purpose of this report, 5 lumbar type vertebral bodies are assumed. Close radiographic correlation recommend ed prior to any spinal intervention or surgery. Procedure Note Jimmie Parkinson M.D. - 10/27/2017Formatt ing of this note might be different from the original. EXAM: MR LUMBAR SPINE WITHOUT IV CONTRAS T COMPARISON: 10/27/2017 radiographs FINDINGS: Conus medullaris terminates at L1-L2. No rmal alignment. No compression deformity. L5-S1 disc desiccation. L1-2: No disc bulge, spinal canal stenos is or neural foraminal narrowing. L2-3: No disc bulge, spinal canal stenos is or neural foraminal narrowing. L3-4: No disc bulge, spinal canal stenos is or neural foraminal narrowing. L4-5: No disc bulge or spinal canal sten osis. No neural foraminal narrowing. L5-S1: Moderate-sized disc bulge, which slightly effaces the anterior thecal sac. Mild bilateral lateral recess narro wing and mild bilateral neural foraminal narrowing. Disc bulge touches the left L 5 nerve right. For the purpose of this report, 5 lumbar type vertebral bodies are assumed. Close radiographic correlation recommend ed prior to any spinal intervention or surgery. IMPRESSION: 1. L5-S1 disc desiccation with a moderat e size disc bulge. Charisma Castellon P.A.-C. IMG MRI PROCEDURES DX Hip And Pelvis Left 2-3 Views [...] or soft tissue abnormality. IMPRESSION: Negative. Charisma AdairA.-C. IMG DIAGNOSTIC IMAGING PRO CEDURES DX Lumbar Spine 2-3 Views (10/27/2017 10:22 AM CDT) Anatomical Region Laterality Modality Lumbar Spine N/A Digital Radiography Specimen (Source) Anatomical Collection Method Collection Time Re ceived Time Location / / Volume Laterality 10/27/2017 10:43 AM CDT Impressions 10/27/2017 10:44 AM CDT IMPRESSION: Negative. Narrative 10/27/2017 10:44 AM CDT EXAM: DX LUMBAR SPINE 2-3 VIEWS COMPARISON: None FINDINGS: Vertebral bodies of the lumbar spine are normal in stature and alignment. ??No fractures are identified . ??Paravertebral soft tissues appear normal. ??SI joints appear normal. Procedure Note Omar Riley M.D. - 10/27/2017Formatti ng of this note might be different from the original. EXAM: DX LUMBAR SPINE 2-3 VIEWS COMPARISON: None FINDINGS: Vertebral bodies of the lumbar spine are normal in stature and alignment. No fractures are identified. Paravertebral soft tissues appear normal. SI joints appear normal. IMPRESSION: Negative. Charisma Wallace.A.-C. IMG DIAGNOSTIC IMAGING PRO CEDURES documented in this encounter Visit Diagnoses Diagnosis Pain Hip Left - Primary Pain Low Back Unspecified Pain Low Back Unspecified Pain Low Back Unspecified Pain Low Back Unspecified documented in this encounter Additional Health Concerns Assessment Noted Time PHQ-9 Depression Total Score: 9 08/30/2017 4:00 PM ELIGIBILITY WORKER documented as of this encounter Care Teams Location And Measurement Technician Relationship Specialty Start Date End Date Holley Saucedo APRN, C.N.P. PCP - General 01/27/17 12/09/17 documented as of this encounter
--- OUTSIDE RECORDS SUMMARY | 2022-04-07 13:16 | XMS_ITS | Encounter Summary ---
:1995 Author Organization [facility] Address [address] [place] [address] Care Team Providers Name Role Phone Chandni Urbina APRN, C.N.P., D.N.P. Primary Care Provider Reason for Visit Reason Comments Contraception Recheck to renew Appointment Request (Routine) - Closed Specialty Diagnoses / Procedures Referred By Contact Refer red To Contact Obstetrics and Gynecology Referral ID Status Reason Start Date Expiration Date Visits Requ ested Visits Authorized [id number] Closed 03/06/2018 03/06/2019 1 Encounter Details Date Type Department Care Team Description 03/08/2018 Office Visit Department of Noy Loya, Screening For Venereal Disease (Primary Dx); Obstetrics and SAND TESTER, CNM, Gynecological Examination Normal Gynecology in [facility] M.S.N., B.S.N.[place], [place] R.N. [address] [place] [address] [address] [place], [place] [phone] Social History Tobacco Use Types Packs/Day Years [...] 10/23/2020 relatives? How often do you attend presybeterian or sabianist Never 10/23/2020 services? 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 that presents for an annual exam. She has the following issues shewould like to go over: 1. needs refill of control. She is also on lamictal and was told today that the 2 meds will decrease the effectiveness of both meds. Needs back up protection until she decides if she would like mirena or nexplanon which are discussed with her today as options. Does not want depo. 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 She is using ocp for contraception. Patient Active Problem List Diagnosis ??? Asthma NOS ??? Pain Hip Left ??? Bipolar II Disorder (HCC) Past Medical History: Diagnosis Date ??? Anxiety Generalized Disorder ??? Asthma NOS ??? Depressive Disorder ??? Other Injury Of Unspecified Body Region 2006 Past Surgical History: Procedure Laterality Date ??? TONSILLECTOMY AND ADENOIDECTOMY; YOUNGER THAN AGE 12.. 06/28/2000 ??? WISDOM TOOTH EXTRACTION Current Outpatient Prescriptions Medication Sig Dispense Refill ??? albuterol (for_ACCUNEB) 2.5 mg /3 mL nebulizer solution one unit dose quid and q2hr prn ??? albuterol (VENTOLIN HFA) 90 mcg/actuation inhaler Inhale 2 puffs every 4 (four) hours as needed for wheezing. 2 Inhaler 11 ??? DULoxetine (CYMBALTA) [address] capsule Take 1 capsule (30 mg total) by mouth every morning before breakfast. 30 capsule 11 ??? fluticasone (for_FLONASE) 50 mcg/actuation nasal spray Administer 2 sprays into affected nostril(s) 2 (two) times a day. ??? fluticasone-vilanterol (for_BREO ELLIPTA DISKUS) 100-25 mcg/actuation inhaler Inhale 1 puff daily. 3 each 2 ??? lamoTRIgine (LaMICtal) 200 mg tablet Take 1 tablet (200 mg total) by mouth daily. 30 tablet 11 ??? levonorgestrel-ethinyl estradiol (SEASONALE) 0.15-mg-30 mcg per tablet Take 1 tablet by mouth daily. 91 tablet 3 No current facility-administered medications for this visit. Allergies Allergen Reactions ??? Cefixime Other (see comments) Unknown reaction as a child Social History Social History ??? Marital status: Single Spouse name: N/A ??? Number of children: N/A ??? Years of education: N/A Occupational History ??? Not on file. Social History Main Topics ??? Smoking status: Former Smoker Packs/day: 0.25 Years: 7.00 Types: Cigarettes Quit date: 01/31/2018 ??? Smokeless tobacco: Never Used ??? Alcohol use 1.2 oz/week 2 Glasses of wine per week ??? Drug use: No ??? Sexual activity: Yes Partners: Male control/ protection: Pill Other Topics Concern ??? Not on file Social History Narrative ??? No narrative on file Family History Problem Relation Age of Onset ??? Breast cancer Grandmother ??? Diabetes Grandmother ??? Diabetes Grandfather ??? Breast cancer Paternal Grandmother SYSTEMS REVIEW GENERAL: no fevers, sweats EENT: no blurred vision, double vision, sinus problems, difficulty swallowing,mouth sores, diminished hearing, ringing in ears, enlarged glands PULMONARY: no short of breath, cough, wheezing CARDIAC: no chest pain, chest pressure, rapid beating, irregular beating, dependent edema, pain in calves, shortness of breath with exertion BREASTS: no nipple discharge, breast lumps, breast tenderness, no other changes GI: no heartburn, nausea, vomiting, constipation, diarrhea, blood in BMs, and no change in BMs REPRODUCTIVE: see above, no vaginal discharge or pelvic pain : no burning/pain with urination, no urinary incontinence MUSCULOSKELETAL: no joint or muscle problems SKIN: no skin rashes, skin sores, change in moles NEURO: no significant headaches, numbness or weakness ENDOCRINE: no excessive thirst, no excessive bruising. HEALTH CARE MAINTENANCE has regular excercise, TDAP utd, BP 126/70 Pulse 68 Temp 36.7 ??C (Temporal) Wt 102.5 kg LMP 03/07/2018 BMI 36.75 kg/m?? PHYSICAL EXAMINATION GENERAL: Patient is in no distress. HEENT: Normocephalic. NECK: No nodes, no thyromegaly. HEART: Regular rate and rhythm. LUNGS: Clear to auscultation bilaterally. No expiratory wheeze. BREASTS: Soft breast tissue without predominant mass or nodularity. No nipple discharge. No axillaryor supraclavicular adenopathy. ABDOMEN: Nontender to palpation. No hepato-splenomegaly. No mass. PELVIS: Normal external genitalia, no lesions BUS normal Urethra normal Bladder non tender, not enlarged Vagina no abnormal discharge. Cervix appears normal, Pap smear is not taken Bimanual exam uterus not enlarged Adnexa no masses, ovaries not enlarged EXTREMITIES: . No cyanosis,or edema. SKIN: scattered benign nevi IMPRESSION/REPORT/PLAN #1 Screening For Venereal Disease Chlamydia done #2 Gynecological Examination Normal Normal exam. Discussed options for control while on lamictal. Will call if desires change in control. Advised back up method in the meantime Advised to call when period, test urine prior to appointment documented in this encounter Plan of Treatment Not on filedocumented as of this encounter Procedures Procedure Name Priority Date/Time Associated Comments Diagnosis CHLAMYDIA TRACHOMATIS Routine 03/08/2018 3:07 PM Screening For Results for this AMPLIFIED RNA CDT Venereal Disease procedure are in the results section. documented in this encounter Results Chlamydia culture (03/08/2018 3:07 PM CDT) [facility] Method Time Signature Source VAGINA 03/09/2018 [facility] 2:05 PM CDT [facility] Chlamydia Negative Negative 03/09/2018 [facility] trachomatis 2:05 PM CDT [facility] Comment: ----ADDITIONAL INFORMATION---- This report is intended for use in clini hernandez monitoring and management of patients. It is not in tended for use in medical-legal applications. Specimen Anatomical Collection Method Collection Time Receive d Time (Source) Location / / Volume Laterality Varies (Vagina) 03/08/2018 3:07 PM 2017 9:56 CDT PM CDT Noy Loya APRN, CNM, M.S.N., B.S.N., R.N. LAB NICOLE ROBIOLOGY - GENERAL ORDERABLES Performing Organization Address City/State/ZIP Code Phon e Number [facility] [address] [place] [address] [address] [place] [address] [facility] documented in this encounter Visit Diagnoses Diagnosis Screening For Venereal Disease - Primary Gynecological Examination Normal documented in this encounter Additional Health Concerns Assessment Noted Time PHQ-9 Depression Total Score: 11 02/10/2018 4:00 PM CD T documented as of this encounter Care Teams Power Barker Operator Relationship Specialty Start Date End Date Chandni Urbina APRN, C.N.P., PCP - General Family Medicine 06/06/19 D.N.P. [address] [place] [address] documented as of this encounter
--- OUTSIDE RECORDS SUMMARY | 2022-04-07 13:16 | XMS_ITS | Encounter Summary ---
:1995 Author Organization [facility] Address [address] [place] [address] Care Team Providers Name Role Phone Amanda Arreola APRN, C.N.P. Primary Care Provider [phone] Reason for Visit Reason Comments Sore Throat Since tuesday. Chills, hea dache, left ear pressure since yesterday, achy neck. Encounter Details Date Type Department Care Team Description 10/06/2017 Office Visit Department of Amanda Newman Sor e Throat (Primary Dx); Medicine, Hakeem Baker APRN, C.N.P. Effusion Ear Middle Left; [facility], in [address] [place] [address] Chills Without Fever; [place], [place] [address] Headache Benign [place] [id number] (Work) [place] [address] Social History Tobacco Use Types [...] 10/23/2020 relatives? How often do you attend religion or yazidism Never 10/23/2020 services? 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 as of this encounter Last Filed Vital Signs Vital Sign Reading Time Taken Comments Blood Pressure 113/67 10/06/2017 8:42 AM WATER SYSTEMS ENGINEER Pulse 108 10/06/2017 8:42 AM WATER SYSTEMS ENGINEER Temperature 37.4 ??C (99.3 ??F) 10/06/2017 8:42 AM WATER SYSTEMS ENGINEER Respiratory Rate 18 10/06/2017 8:42 AM WATER SYSTEMS ENGINEER Oxygen Saturation 97% 10/06/2017 8:42 AM WATER SYSTEMS ENGINEER Inhaled Oxygen Concentration - - Weight 99 kg (218 lb 4.1 oz) 10/06/2017 8:42 AM WATER SYSTEMS ENGINEER Height - - Body Mass Index 35.23 08/31/2017 4:59 PM WATER SYSTEMS ENGINEER documented in this encounter Progress Notes Amanda Arreola, TOBI, C.N.P. - 10/06/2017 8:45 AM CST SUBJECTIVE CHIEF COMPLAINT / REASON FOR VISIT Sore throat. Chills. Headache. Ear discomfort. HISTORY OF PRESENT ILLNESS Carly is a very pleasant 22-year-old female who comes into the clinic today with concerns related to a progressing sore throat, chills, headaches and left ear ???discomfort?? for approximately 5 days. She denies any known exposure to strep throat. She denies any cough or abdominal pain. She reportsher appetite has decreased and she has had difficulty with ???oral fluid intake ???. She reports hersleep has been negatively impacted related to her current symptoms. She denies any heart palpitations, chest pain or shortness of breath. She is here today for further evaluation. She has no other concerns today. Brief Review of Systems: A brief review [...] Unknown reaction as a child OBJECTIVE PHYSICAL EXAM BP 113/67 (BP Location: Left arm, Patient Position: Sitting, Cuff Size: Regular) Pulse 108 Temp 37.4 ??C (Temporal) Resp 18 Wt 99 kg SpO2 97% ? No BMI 35.23 kg/m?? Body mass index is 35.23 kg/m??. CONSTITUTIONAL: Alert and oriented. No acute distress. HEAD/EAR/NOSE/MOUTH/THROAT: Normocephalic/atraumatic. Ears: Right ear unremarkable. Left TM with scant amount of serous fluid posterior to Tm. No erythema or bulging. Oropharynx without lesion of mucosa. Pharyngeal rises symmetrically without exudate and with mild-moderate erythema. CARDIOVASCULAR: Regular rate and rhythm. No murmurs, gallops or rubs noted. RESPIRATORY: Clear to auscultation bilaterally. No expiratory wheeze. No accessory muscles of respiration noted. MUSCULOSKELETAL: No neurovascular compromise. No cyanosis, clubbing or edema. NEUROLOGICAL: Cranial nerves II-VII grossly intact and symmetric. She ambulates with a steady gait. PSYCHIATRIC: Cooperative. Affect appropriate. ASSESSMENT / PLAN #1 Sore Throat A rapid strep screen is pending at time of dictation. We will contact her with results once completed. #2 Effusion Ear Middle Left She was instructed to use [id number] daily Claritin for 7-10 days for symptom management. #3 Chills Without Fever See #1 above. #4 Headache Benign See #1 above. She was instructed to contact the clinic with worsening or no improvement in symptoms.All questions were answered. She left in no acute distress. Amanda Arreola APRN, C.N.P. Answers for HPI/ROS submitted by the patient on 08/12/2017 Sinus congestion: Yes Chest pain, pressure or tightness: Yes Shortness of breath when lying flat: Yes Shortness of breath: Yes Coughing up mucus (phlegm): Yes Wheezing: Yes R SYSTEMS ENGINEER documented in this encounter Miscellaneous Notes Addendum Note - Amanda Arreola APRN, C.N.P. - 10/06/2017 8:45 AM WATER SYSTEMS ENGINEER Addended by: AMANDA ARREOLA on: 10/06/2017 09:43 AM Modules accepted: Orders R SYSTEMS ENGINEER documented in this encounter Plan of Treatment Not on filedocumented as of this encounter Procedures Procedure Name Priority Date/Time Associated Diagnosis Comme nts RAPID STREP A Routine 10/06/2017 9:07 AM Sore Throat Results for this SCREEN WATER SYSTEMS ENGINEER procedure are i n the results section. documented in this encounter Results (ABNORMAL) Rapid Strep A Screen Throat (10/06/2017 9:07 AM WATER SYSTEMS ENGINEER) [facility] Method Time Signature Rapid Strep A Positive (A) Negative 10/06/2017 [facility] Screen 9:19 AM WATER SYSTEMS ENGINEER [facility] Specimen Anatomical Collection Method Collection Time Receive d Time (Source) Location / / Volume Laterality Varies (Throat) 10/06/2017 9:07 AM 2017 9:09 WATER SYSTEMS ENGINEER AM WATER SYSTEMS ENGINEER Amanda Arreola APRN, C.N.P. LAB MICROBIOLOGY - GENE RAL ORDERABLES Performing Organization Address City/State/ZIP Code Phon e Number [facility] [address] [place] [phone] [place] [address] LAB documented in this encounter Visit Diagnoses Diagnosis Sore Throat - Primary Effusion Ear Middle Left Chills Without Fever Headache Benign documented in this encounter Additional Health Concerns Assessment Noted Time PHQ-9 Depression Total Score: 9 08/30/2017 4:00 PM WATER SYSTEMS ENGINEER documented as of this encounter Care Teams Sewer Pipe Offbearer Relationship Specialty Start Date End Date Amanda Arreola APRN, C.N.P. PCP - General 01/27/17 12/09/17 documented as of this encounter
--- OUTSIDE RECORDS SUMMARY | 2022-04-07 13:16 | XMS_ITS | Encounter Summary ---
:1995 Author Organization [facility] Address [address] [place] [address] Care Team Providers Name Role Phone Chandni Urbina APRN C.N.P., D.N.P. Primary Care Provider Reason for Referral Outpatient (Routine) - Closed Specialty Diagnoses / Procedures Referred By Contact Refer red To Contact Diagnoses Radiculopathy Lumbar Lizzie June II, M.D. [facility] Procedures EMG [address] [place] [address] [phone] Referral ID Status Reason Start Date Expiration Date Visits Requ ested Visits Authorized [id number] Closed 12/23/2017 06/21/2018 1 1 Reason for Visit Reason Comments Back Pain low back pain, left hip pain , with shooting pain and numbness down the left leg Encounter Details Date Type Department Care Team Description 12/23/2017 Hospital Encounter Department of Pain Lizzie June Ra diculopathy Lumbar (Primary Dx); Medicine in [place] EVANS M.D. Pain Hip Left; [place], [place] [address] [facility] Weakness Leg Left [address] [place] [address] [phone] Social History Tobacco Use Types Packs/Day Years [...] 10/23/2020 relatives? How often do you attend baptist or anabaptist Never 10/23/2020 services? 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 fluticasone-vilanterol Inhale 1 puff daily. 3 each 2 10/201708/31/2018 (for_BREO ELLIPTA DISKUS) 100-25 mcg/actuation inhaler lamoTRIgine Take 1 tablet (200 mg [...] VITAMIN) tablet documented as of this encounter Consult Notes Lizzie June II, M.D. - 12/23/2017 11:38 AM CDT REQUESTING PROVIDER: No ref. provider found HISTORY OF PRESENT ILLNESS: Ms. Joseph is a pleasant, 22-year-old lady who I am seeing today at the request of Eder Castellon. The patient presents with a pain that has been going on since December 2016. The pain primarily affects her left hip and anterior thigh. Her pain is always present, but varies in intensity. Today it is mild, but can rate as high as 8/10. The pain is described as sharp and stabbing. She has noted some weakness in her leg. The patient initially followed with our colleagues in Orthopedic Surgery. It was felt that her pain could be related to her hip. She has undergone some evaluation and physical therapy. She has had imaging of her hip including MRI as well as x-rays, which were reviewed today with the patient. These were unremarkable for the most part. The patient had MRI of her lumbar spine done. This was also reviewed. This did show degenerative disk disease at L5-S1. Although the patient does have an additional lumbosacral segment. The patient states that her pain is better with heat and ice. 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 The patient has seen a chiropractor and undergone about 10 physical therapy sessions without significant relief. The patient would like to know what could be offered to help with her pain at this time. She denies any red flag symptoms and offers no additional complaints. PAST MEDICAL/SURGICAL HISTORY The patient???s medical and surgical histories were reviewed today in clinic. Please refer to the electronic medical record for a complete list. Past Medical History: Diagnosis Date ??? Anxiety Generalized Disorder ??? Asthma NOS ??? Depressive Disorder ??? Other Injury Of Unspecified Body Region 2006 Past Surgical History: Procedure Laterality Date ??? TONSILLECTOMY AND ADENOIDECTOMY; YOUNGER THAN AGE 12.. 06/28/2000 ??? WISDOM TOOTH EXTRACTION MEDICATIONS These were reviewed in clinic. Please refer to electronic medical record for a complete list. Prior to Admission medications Medication Sig Start Date End Date Taking? Authorizing Provider albuterol (for_ACCUNEB) 2.5 mg /3 mL nebulizer solution one unit dose quid and q2hr prn 12/05/03 Yes Historical Richard Stafford albuterol (VENTOLIN HFA) 90 mcg/actuation inhaler Inhale 2 puffs every 4 (four) hours as needed for wheezing. 08/12/17 Yes Inez Corona M.D. fluticasone (for_FLONASE) 50 mcg/actuation nasal spray Administer 2 sprays into affected nostril(s) 2 (two) times a day. 07/18/14 Yes Historical ProviderRichard fluticasone-vilanterol (for_BREO ELLIPTA DISKUS) 100-25 mcg/actuation inhaler Inhale 1 puff daily. 11/15/17 Yes Holley Saucedo APRN, C.N.P., M.S.N. lamoTRIgine (for_LaMICtal) 200 mg tablet Take 1 tablet (200 mg total) by mouth daily. 08/30/17 08/30/18 Yes Emmanuel Garibay M.D. LEVONORGESTREL-ETHIN ESTRADIOL (CHATEAL ORAL) Take 1 tablet by mouth daily. 09/17/16 Yes Historical ProviderRichard ALLERGIES Allergies Allergen Reactions ??? Cefixime Other (see comments) Unknown reaction as a child SOCIAL HISTORY The patient has a 4-year-old. She lives in the [facility]. She has a certified athletic trainer. PHYSICAL EXAMINATION GENERAL: The patient is awake, alert, in no acute distress. MENTAL STATUS: Oriented to person, place, and time. Displays appropriate mood and affect. Judgment and insight are congruent. HEAD: Normocephalic, atraumatic. EYES: Conjunctivae appear normal. PERIPHERAL VASCULAR: No obvious swelling in all four extremities. SKIN: Skin inspection of the trunk and bilateral upper and lower extremities reveals tattoos but is otherwise unremarkable. GAIT: Non-antalgic gait. Toe walking, heel walking, and tandem gait are normal. NEUROLOGICAL: SLR: Straight leg raise is negative for radicular type pain bilaterally. SENSORY: No sensory deficits were noted on examination. REFLEXES: Bilateral upper and lower extremity coordination and muscle stretch reflexes are physiologic and symmetric at the ankles, patella, triceps, and biceps. MUSCULOSKELETAL: The patient has pain with examination of her hip flexors and quadriceps muscle group on the left. Otherwise no atrophy, no tone abnormalities were noted. I am unable to reproduce her pain with hip provocative maneuvers or sacroiliac joint provocative maneuvers. ASSESSMENT / PLAN #1 Left hip pain #2 Lumbar radicular pain #3 Left leg weakness PLAN: We discussed the plan of care, discussed the following: The patient is noted to have a fairly unremarkable MRI of her lumbar spine with the exception of L5-S1 versus L6-S1 where there is some degenerative disk disease. However, I am not seeing any evidence of any significant neural compression. Otherwise, he does have symptoms that are consistent with perhaps an L3-L4 radiculopathy. As the MRI is not very helpful, I think an EMG would be indicated. The patient does seem to have some low back pain with facet loading maneuvers and axial rotation primarily on her left side. However, this would explain pain in the distribution of her pain in her lower extremity. However, it would not explain the weakness that I am seeing. I will review her MRI with the radiologist as she does seem to have some arthropathy of her facet joints at the S1 level as well as what appeared to be S1 nerve roots coming from a more distal part of the spine than we would expect. I will review this with him and correlate that with any findings thatmay be found on her EMG. The patient will follow up with us either in clinic or over the phone after her EMG has been completed. All questions were answered. It was a pleasure meeting with the patient. I spent 42 minutes with thepatient and 50% in counseling. PATIENT EDUCATION Ready to learn, no apparent learning barriers were identified; learning preferences included listening. Explained diagnosis and treatment plan; patient expressed understanding of the content. I did not evaluate this patient in terms of causation, impairment, disability, or any relation of his/her current symptoms. Learning barriers were assessed and none were present. documented in this encounter Plan of Treatment Not on filedocumented as of this encounter Results EMG (03/01/2018 10:10 AM CDT) Specimen (Source) Anatomical Collection Method Collection Time Re ceived Time Location / / Volume Laterality 03/01/2018 9:30 AM CDT Narrative [facility] EMG - 03/01/2018 10:30 AM CDT 01-Mar-2018 ? Electromyography ? Final Report Study Number: 1 EMG Trolley Wire Installer: Chloe Han Referred by: LIZZIE JUNE II ([phone] or [phone]) Referred for: Query lumbar radiculopathy on the [...] this encounter Visit Diagnoses Diagnosis Radiculopathy Lumbar - Primary Pain Hip Left Weakness Leg Left Radiculopathy Lumbar documented in this encounter Additional Health Concerns Assessment Noted Time PHQ-9 Depression Total Score: 10 11/03/2017 4:00 PM CD T documented as of this encounter Care Teams Business Analyst Manager Relationship Specialty Start Date End Date Chandni Urbina APRN, C.N.P., PCP - General Family Medicine 06/06/19 D.N.P. [address] [place] [address] documented as of this encounter
--- OUTSIDE RECORDS SUMMARY | 2022-04-07 13:16 | XMS_ITS | Encounter Summary ---
:1995 Author Organization [facility] Address [address] [place] [address] Care Team Providers Name Role Phone Holley Saucedo APRN, C.N.P. Primary Care Provider [phone] Encounter Details Date Type Department Care Team Description 09/23/2017 Orders Only Department of [facility] Holley Saucedo n Hip Left (Primary Medicine, [place] TOBI Baker, C.N.P. Dx) Clinic, in [address] [place] [address] [place], [place] (Work) [address] [phone] Social History Tobacco Use Types Packs/Day Years [...] often do you attend jehovah's witness or yarsanism Never 10/23/2020 services? 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 PCP - General 01/27/17 12/09/17 documented as of this encounter
--- OUTSIDE RECORDS SUMMARY | 2022-04-07 13:16 | XMS_ITS | Encounter Summary ---
:1995 Author Organization [facility] Address [address] [place] [address] Care Team Providers Name Role Phone Holley Saucedo APRN, C.N.P. Primary Care Provider [phone] Encounter Details Date Type Department Care Team Description 11/21/2017 Orders Only [facility], Brandon Marcum M .D. [address] [address] Social History Tobacco Use Types Packs/Day Years [...] How often do you attend sikhism or zoroastrianism Never 10/23/2020 services? 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 PCP - General 01/27/17 12/09/17 documented as of this encounter
--- OUTSIDE RECORDS SUMMARY | 2022-04-07 13:16 | XMS_ITS | Encounter Summary ---
:1995 Author Organization [facility] Address [address] [place] [address] Care Team Providers Name Role Phone Chandni Urbina APRN, C.N.P., D.N.P. Primary Care Provider Encounter Details Date Type Department Care Team Description 09/01/2018 Orders Only [facility] - Chandni Bhat, TOBI, [address] C.N.P., D.N.P. BHAVIN PATEL [phone] [place] [address] [place], [place] [address] (Wo rk) Social History [...] How often do you attend mu-ism or christianity Never 10/23/2020 services? 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 [address] [place] [address] documented as of this encounter
--- OUTSIDE RECORDS SUMMARY | 2022-04-07 13:16 | XMS_ITS | Encounter Summary ---
:1995 Author Organization [facility] Address [address] [place] [address] Care Team Providers Name Role Phone Holley Saucedo APRN, C.NGonzaloPGonzalo Primary Care Provider [phone] Encounter Details Date Type Department Care Team Description 11/03/2017 Orders Only Department of Charisma Castellon Pain Low Back Orthopedic Surgery in [place], P.AGonzalo-C. (Primary Dx) [address] [phone] Social History Tobacco Use Types Packs/Day Years [...] How often do you attend mandaen or scientology Never 10/23/2020 services? 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 PCP - General 01/27/17 12/09/17 documented as of this encounter
--- OUTSIDE RECORDS SUMMARY | 2022-04-07 13:16 | XMS_ITS | Encounter Summary ---
:1995 Author Organization [facility] Address [address] [place] [address] Care Team Providers Name Role Phone Holley Saucedo APRN C.N.P. Primary Care Provider [phone] Reason for Visit Reason Comments Communication Encounter Details Date Type Department Care Team Description 11/03/2017 Clinical Communication Department of Samuel Stubbs Communication Medicine, [facility], in [address] [facility] [facility] [address] [place] [address] [place], [place] (Work) [phone] Social History Tobacco Use [...] 10/23/2020 relatives? How often do you attend confucianism or samaritan Never 10/23/2020 services? 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 PCP - General 01/27/17 12/09/17 documented as of this encounter
--- OUTSIDE RECORDS SUMMARY | 2022-04-07 13:16 | XMS_ITS | Encounter Summary ---
:1995 Author Organization [facility] Address [address] [place] [address] Care Team Providers Name Role Phone Holley Saucedo APRN C.NGonzaloPGonzalo Primary Care Provider [phone] Encounter Details Date Type Department Care Team Description 10/27/2017 Hospital Encounter [facility] Cast[facility] [phone] Social History Tobacco Use Types Packs/Day Years [...] How often do you attend rastafarian or oriental orthodox Never 10/23/2020 services? 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 diazePAM (for_VALIUM) 5 One tablet po 30 2 tablet 0 201711/03/2017 mg tablet Minutes prior to procedure fluticasone Administer 2 sprays 0 07/18/201410/13 (for_FLONASE) [...] Name Priority Date/Time Associated Comments Diagnosis DX LUMBAR SPINE RAD - Routine 10/27/2017 10:22 Pain Low Back Result s for this 2-3 VIEWS (most inpatients AM CDT procedure a re in and all the results outpatients) section. documented in this encounter Results DX Lumbar Spine 2-3 Views (10/27/2017 10:22 [...] SI joints appear normal. IMPRESSION: Negative. Charisma Castellon P.A.-C. IMG DIAGNOSTIC IMAGING PRO CEDURES documented in this encounter Visit Diagnoses Diagnosis Pain Low Back Unspecified documented in this encounter Additional Health Concerns Assessment Noted Time PHQ-9 Depression Total Score: 9 08/30/2017 4:00 PM BOXING INSTRUCTOR documented as of this encounter Care Teams Customer Assistance Representative Relationship Specialty Start Date End Date Holley Saucedo APRN, C.N.P. PCP - General 01/27/17 12/09/17 documented as of this encounter
--- OUTSIDE RECORDS SUMMARY | 2022-04-07 13:16 | XMS_ITS | Encounter Summary ---
:1995 Author Organization [facility] Address [address] [place] [address] Care Team Providers Name Role Phone Holley Saucedo APRN C.N.P. Primary Care Provider [phone] Encounter Details Date Type Department Care Team Description 11/03/2017 Orders Only Department of Argelia Vogel Pain Back (Primary Dx) Orthopedic Surgery in [place], C.M.[address] [address] [phone] Social History Tobacco Use Types Packs/Day Years [...] How often do you attend spiritism or temple Never 10/23/2020 services? 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 PCP - General 01/27/17 12/09/17 documented as of this encounter
--- OUTSIDE RECORDS SUMMARY | 2022-04-07 13:16 | XMS_ITS | Encounter Summary ---
:1995 Author Organization [facility] Address [address] [place] [address] Care Team Providers Name Role Phone Holley Saucedo APRN C.N.P. Primary Care Provider [phone] Reason for Referral MRI/CAT/PET Scan (Routine) - Closed Specialty Diagnoses / Procedures Referred By Contact Refer red To Contact Radiology Diagnoses Pain Low Back Unspecified Charisma Castellon [facility] [place] [facility] Procedures MR Lumbar Spine without IV Contrast P.A.-C. [address] [place] [address] Referral ID Status Reason Start Date Expiration Date Visits Requ ested Visits Authorized Closed 10/27/2017 04/25/2018 1 1 Reason for Visit MRI/CAT/PET Scan (Routine) - Closed Specialty Diagnoses / Procedures Referred By Contact Refer red To Contact Radiology Diagnoses Pain Low Back Unspecified Charisma Castellon [facility] [place] [facility] Procedures MR Lumbar Spine without IV Contrast P.A.-C. [address] [place] [address] Referral ID Status Reason Start Date Expiration Date Visits Requ ested Visits Authorized Closed 10/27/2017 04/25/2018 1 1 Encounter Details Date Type Department Care Team Description 10/27/2017 Hospital Encounter Department of Charisma Castellon in Low Back Radiology in [place] P.A.-C. [address] [place] [phone] Social History Tobacco Use Types Packs/Day Years [...] 10/23/2020 relatives? How often do you attend adventism or jewish Never 10/23/2020 services? 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 documented in this encounter Results MR Lumbar Spine without [...] e size disc bulge. Charisma Castellon P.A.-C. IMJing MRI PROCEDURES documented in this encounter Visit Diagnoses Diagnosis Pain Low Back Unspecified documented in this encounter Additional Health Concerns Assessment Noted Time PHQ-9 Depression Total Score: 9 08/30/2017 4:00 PM FURNITURE REMOVALIST'S ASSISTANT documented as of this encounter Care Teams Hydroelectric Production Technician Relationship Specialty Start Date End Date Holley Saucedo APRN, C.N.P. PCP - General 01/27/17 12/09/17 documented as of this encounter
--- OUTSIDE RECORDS SUMMARY | 2022-04-07 13:16 | XMS_ITS | Encounter Summary ---
:1995 Author Organization [facility] Address [address] [place] [id number] Care Team Providers Name Role Phone Holley Saucedo APRN, C.N.P. Primary Care Provider [phone] Reason for Referral MRI/CAT/PET Scan (Routine) - Closed Specialty Diagnoses / Procedures Referred By Contact Refer red To Contact Radiology Diagnoses Pain Hip Left Holley Saucedo APRN, [facility] [place] [facility] Procedures MR Hip Left without IV Contrast C.N.P. [address] [place] [address] Referral ID Status Reason Start Date Expiration Date Visits Requ ested Visits Authorized [id number] Closed 08/18/2017 02/14/2018 1 1 S ROLLER Reason for Visit MRI/CAT/PET Scan (Routine) - Closed Specialty Diagnoses / Procedures Referred By Contact [place] red To Contact Radiology Diagnoses Pain Hip Left Holley Saucedo APRN, [facility] Procedures MR Hip Left without IV Contrast C.N.P. [address] [place] [address] Referral ID Status Reason Start Date Expiration Date Visits Requ ested Visits Authorized [id number] Closed 08/18/2017 02/14/2018 1 1 Encounter Details Date Type Department Care Team Description 09/22/2017 Hospital Encounter Department of Holley Saucedo P ain Hip Left Radiology in [place] [facility] [address] [address] [place], [place] [phone] ([place]) [id number] [phone] Social History Tobacco Use Types Packs/Day Years [...] How often do you attend druze or anabaptism Never 10/23/2020 services? 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/2017 10:51 AM [facility]ASS RO[facility]ER documented as of this encounter Medications at Time of Discharge Medication Sig Dispensed Refills Start Date End Date albuterol (for_ACCUNEB) one unit dose qid 0 12/0409/25/2018 2.5 mg /3 mL nebulizer and q2hr prn solution albuterol (VENTOLIN HFA) Inhale 2 puffs 2 Inhaler 11 017 09/25/2018 90 mcg/actuation inhaler every 4 (four) hours as needed for wheezing. azithromycin Take 2 tablets the 6 tablet 0 08/12/201709/16 (for_ZITHROMAX) 250 mg first day, then 1 tablet tablet daily for 4 days. fluticasone (for_FLONASE) Administer 2 0 07/18/20 14 10/26/2021 50 mcg/actuation nasal sprays into spray affected nostril(s) 2 (two) times a day as needed. fluticasone-salmeterol Inhale 1 puff. 0 2 11/04/2017 (for_ADVAIR DISKUS) 250-50 mcg/dose diskus inhaler gabapentin (for_NEURONTIN) Take 1 capsule 90 capsule 5 08/3110/06/2017 300 mg capsule (300 mg total) by mouth 3 (three) times a day. Start with 300mg at bedtime, then 300mg BID for 3 days, then 300mg TID lamoTRIgine (for_LaMICtal) Take 1 tablet (200 30 tablet 11 0 08/30/2017 01/02/2018 200 mg tabletIndications: mg total) by mouth Bipolar II Disorder (HCC) daily. LEVONORGESTREL-ETHIN Take 1 tablet by 0 7 03/08/2018 ESTRADIOL (CHATEAL ORAL) mouth daily. methylPREDNISolone follow package 1 tablet 0 08/31/2017 (for_MEDROL DOSEPACK) 4 mg directions tablet montelukast Take 10 mg by 0 03/22/2013 10/06/2017 (for_SINGULAIR) 10 mg mouth. tablet montelukast (SINGULAIR) 10 Take 10 mg by 0 201202/19/2019 mg tablet mouth as directed. prenat.vits,hernandez,min-iron-f Take 1 tablet by 0 01/201410/06/2017 olic ( VITAMIN) mouth. tablet prenat.vits,hernandez,min-iron-f Take 1 tablet by 0 01/201402/19/2019 olic ( VITAMIN) mouth daily. tablet traZODone (for_DESYREL) 50 Take 1 tablet by 0 01/201510/06/2017 mg tablet mouth daily. documented as of this encounter Plan of Treatment Not on filedocumented as of this encounter Procedures Procedure Name Priority Date/Time Associated Comments Diagnosis MR HIP LEFT RAD - Routine 09/22/2017 3:16 Pain Hip Left Results fo r this WITHOUT IV (most inpatients PM [facility] ROLLER procedure a re in CONTRAST and all the results outpatients) section. documented in this encounter Results MR Hip Left without IV Contrast (09/22/2017 3:16 PM BRASS ROLLER) Anatomical Region Laterality Modality Lower Extremity, Hip Left Magnetic Resonance Specimen (Source) Anatomical Collection Method Collection Time Re ceived Time Location / / Volume Laterality 09/22/2017 3:31 PM [facility] Impressions 09/22/2017 3:41 PM [facility] IMPRESSION: 1. ??No acute appearing abnormality of t he left hip. 2. ??Incidentally noted disc desiccation with mild disc protrusion of the lower lumbar spine. Narrative 09/22/2017 3:41 PM [facility] ROLLER EXAM: MR HIP LEFT WITHOUT IV CONTRAST COMPARISON:None FINDINGS: Normal alignment. No acute fra cture. No bone marrow edema. No hip joint effusion. No muscle edema to sugge st contusion or tear. The left hip labrum appears intact with non-arthrogra m technique. No trochanteric bursitis. No suspicious osseous lesion. No adenopathy. No ascites. Unremarkable uterus and adnexa. Unremarkable appearance of the visualized bowel. Incidentally noted disc desiccation with mild posterior disc protrusion of the lower lumbar spine. Procedure Note Cuauhtemoc Carl M.D. - 09/22/2017Formatt ing of this note might be different from the original. EXAM: MR HIP LEFT WITHOUT IV CONTRAST COMPARISON:None FINDINGS: Normal alignment. No acute fra cture. No bone marrow edema. No hip joint effusion. No muscle edema to sugge st contusion or tear. The left hip labrum appears intact with non-arthrogra m technique. No trochanteric bursitis. No suspicious osseous lesion. No adenopathy. No ascites. Unremarkable uterus and adnexa. Unremarkable appearance of the visualized bowel. Incidentally noted disc desiccation with mild posterior disc protrusion of the lower lumbar spine. IMPRESSION: 1. No acute appearing abnormality of the left hip. 2. Incidentally noted disc desiccation w ith mild disc protrusion of the lower lumbar spine. Holley Saucedo APRN, C.N.P. IMG MRI PROCEDURES documented in this encounter Visit Diagnoses Diagnosis Pain Hip Left documented in this encounter Additional Health Concerns Assessment Noted Time PHQ-9 Depression Total Score: 9 08/30/2017 4:00 PM [facility] ROLLER documented as of this encounter Care Teams Crystalizer Operator Relationship Specialty Start Date End Date Holley Saucedo APRN, C.N.P. PCP - General 01/27/17 12/09/17 documented as of this encounter
--- OUTSIDE RECORDS SUMMARY | 2022-04-07 13:17 | XMS_ITS | Encounter Summary ---
:1995 Author Organization [facility] Address [address] [place] [id number] Care Team Providers Name Role Phone Unavailable Primary Care Provider Unavailable Encounter Details Date Type Department Care Team Description 08/15/2016 Hospital Encounter HX [facility] ED Ramsey Kahn M.D. [address] [place], [place] [address] (Wo rk) Social History Tobacco Use Types Packs/Day Years Used Date Smoking Tobacco: Former Alcohol Habits Answer Date Recorded How often [...] 10/23/2020 relatives? How often do you attend cheondoism or orthodox Never 10/23/2020 services? Do you belong to any clubs or organizations such as No 12/04/2019 cheondoism groups, unions, fraternal or athletic groups, or [...] at Date Recorded Female 08/12/2017 10:51 AM MIXER AND BLENDER documented as of this encounter Last Filed Vital Signs Vital Sign Reading Time Taken Comments Blood Pressure 130/84 08/15/2016 3:48 PM MIXER AND BLENDER Pulse 78 08/15/2016 3:48 PM MIXER AND BLENDER Temperature - - Respiratory Rate 16 08/15/2016 3:48 PM MIXER AND BLENDER Oxygen Saturation - - Inhaled Oxygen Concentration - - Weight - - Height - - Body Mass Index - - documented in this encounter Discharge Summaries Shirley Marsh RYamileth. - 08/15/2016 4:24 PM CST ED Depart Summary [facility] Emergency Department Clinical Discharge Summary PERSON INFORMATION Name DHIRAJ LANDA Age 21 Years 1995 12:00 AM Sex Female Language Kuwaiti PCP MAANDA ARREOLA MANAGER SOCIAL SERVICES Marital Status Single Visit Id Visit Reason UC - Sinus Pain or Congestion; Sinus congestion Specialty Enc Type Emergency Med Service Emergency Medicine Referred by Track Group [facility] ED Discharge 08/15/2016 4:24 PM Tracking Id [id number] Checkout 08/15/2016 4:24 PM Checkin 08/15/2016 3:43 PM Acuity 5 -Non Urgent Dispo Type * Discharged to Home or Self Care Arrival 08/15/2016 3:43 PM Reg Status Complete LOS 000 00:41 Address: [address] [address] Comment: PROVIDER INFORMATION Provider Role Provider Contact Time RAJESH KAHN MD ED Provider 08/15/16 15:57 SHIRLEY MARSH SALES ORDER COORDINATOR Nurse 08/15/16 16:05 DIAGNOSIS Dependence (Tobacco) Nicotine; Sinusitis Acute NOS Comment: PATIENT EDUCATION INFORMATION Instructions: Acute Sinusitis Follow up: With: Address: When: AMANDA ARREOLA [address] [place] [phone] Business (1) Within As Needed Source: [facility] POWERCHART Document Id: [id number] R AND BLENDER Shirley Marsh R.N. - 08/15/2016 4:24 PM CST ED Discharge Instructions [address] [address] Name: DHIRAJ LANDA Date of : 1995 12:00 AM Visit Date: 08/15/2016 3:43 PM [facility] Number: [id number] Address: [address] [address] Primary Care Provider: AMANDA ARREOLA NP IMPORTANT: [facility] in [place] would like to thank you for allowing us to assist you with your healthcare needs. The following includes patient education materials and informationregarding your injury/illness. Diagnosis: Dependence (Tobacco) Nicotine; Sinusitis Acute NOS Follow-Up Instructions: With: Address: When: AMANDA ARREOLA [address] [place] [phone] Business (1) Within As Needed Your Upcoming Appointments: Date Time Location Provider No Appointments found Patient Education Materials: Acute Sinusitis Acute sinusitis is inflammation (irritation and swelling) of the sinuses. It is often due to a bacterial or viral infection of the sinuses. This may follow a cold or other upper respiratory illness. Your doctor can help you find relief. Read on to learn more. What Is Acute Sinusitis? Sinuses are air-filled spaces in the skull behind the face. They are kept moist and clean by a lining of mucosa. Things such as pollen, smoke, and chemical fumes can irritate the mucosa. It can then become inflamed (swell up). As a response to irritation, the mucosa makes more mucus and other fluids. Tiny hairlike cilia cover the mucosa. Cilia help transport mucus toward the opening of the sinus. Toomuch mucus may cause the cilia to stop working. This blocks the sinus opening. A buildup of fluid inthe sinuses then leads to symptoms such as pain and pressure. It an also encourage growth of bacteria in the sinuses. Common Symptoms of Acute Sinusitis You may have: ?? Facial pain ?? Headache ?? Fever ?? Postnasal drip ?? Nasal congestion ?? Redness of facial skin over sinus Treatment of Acute Sinusitis Treatment is designed to unblock the sinus opening and help the cilia work again. Antihistamine and decongestant medications may be prescribed. Try Afrin Nasal spray and washing your nostrils out with saline. These can reduce inflammation and decrease fluid production. If a bacterial infection is present, it can be treated with antibiotic medication. Antibiotics will not be started unless you developfevers over 101 F or are worsening after 10 days.This medication should be taken until it is gone, even if you feel better. Note that antibiotics will not help a viral infection. Take ibuprofen or Aleve for pain. ?? [phone] [facility], [address] [place] [address], [place] [address]. All rights reserved. This information is not intended as a substitute for professional medical care. Always follow your healthcare professional's instructions. Consider Using Patient Online Services Patient Online Services is a secure online and Mobile application that lets you: ?? View lab and test results ?? View portions of your medical record including clinical notes, immunizations and discharge summaries ?? Request an appointment or medication refill ?? Review your appointment schedule ?? Send secure messages to your care team Its easy to create an account if you dont have one. Go to [email or web address] and click on Create Your Account. Then, follow the directions to complete the online form. Youll be asked for your [facility] number which you can find at the top of this document. ED Tests and Procedures: Order Status Discharge Prescriptions & Home Medications: Medication/Strength Dose Route Frequency Indications/Special Instructions/Comments/Notes amoxicillin-clavulanate (Augmentin 875 mg-125 mg oral tablet) 1 tab(s) Oral two times a day for 7 Days venlafaxine (Effexor XR 37.5 mg oral capsule, extended release) 37.5 mg Oral once a day albuterol (Ventolin HFA 90 mcg/inh inhalation aerosol) 2 puff(s) Inhalation as directed as needed for Shortness of breath / Wheezing *traZODone (traZODone 50 mg oral tablet) 50 mg Oral once a day *fluticasone nasal (Flonase 0.05 mg/inh nasal spray) 2 spray(s) Nasal two times a day fluticasone-salmeterol (Advair Diskus 250 mcg-50 mcg inhalation powder) 1 puff(s) Inhalation two times a day * You have let us know that you are not taking this medication as listed. Please talk with your primary care provider or the health care provider who prescribed the medication as soon as possible. Comment: Attention: If you have any medications at home not on this list, DO NOT take them until you contact your provider for clarification. Give a copy of your medication list to your primary care provider. Update your medication list any time medications or doses are changed and carry your medication list at all times in case of emergency. IMPORTANT: We examined and treated you today on an emergency basis only. This was not a substitute for, or an effort to provide, complete medical care. In most cases, you must let your doctor check youagain. Tell your doctor about any new or lasting problems. We cannot recognize and treat all injuries or illnesses in one Emergency Department visit. If you had special tests, such as EKG's or X- rays, we will review them again within 24 hours. We will call you if there are any new suggestions. Please follow the instructions above carefully. If you are being transferred to another facility your followup plan of care will be determined by the receiving facility. If you are a patient that is being discharged from the Emergency Department after receiving narcotics or other medications that may impair your judgment you may be a risk to yourself or others if you operate a motor vehicle. We recommend that you arrange a ride home with a responsible republican. I, DHIRAJ LANDA , or responsible republican have received this information and my questions have been answered. I have discussed any challenges I see with this plan with the nurse or physician. Patient Signature or Responsible Alliance Party/Relationship Date Time Provider Signature Date Time IMPORTANT: We examined and treated you today on an emergency basis only. This was not a substitute for, or an effort to provide, complete medical care. In most cases, you must let your doctor check youagain. Tell your doctor about any new or lasting problems. We cannot recognize and treat all injuries or illnesses in one Emergency Department visit. If you had special tests, such as EKG's or X- rays, we will review them again within 24 hours. We will call you if there are any new suggestions. Please follow the instructions above carefully. If you are being transferred to another facility your followup plan of care will be determined by the receiving facility. If you are a patient that is being discharged from the Emergency Department after receiving narcotics or other medications that may impair your judgment you may be a risk to yourself or others if you operate a motor vehicle. We recommend that you arrange a ride home with a responsible republican. I, DHIRAJ LANDA , or responsible republican have received this information and my questions have been answered. I have discussed any challenges I see with this plan with the nurse or physician. Patient Signature or Responsible Alliance Party/Relationship Date Time Provider Signature Date Time This document has images extracted. Please consider using [employer] for all your patient education needs. Source: [facility] POWERCHART Document Id: [id number] R AND BLENDER documented in this encounter Medications at Time of Discharge Medication Sig Dispensed Refills Start Date End Date albuterol (for_ACCUNEB) one unit dose qid and 0 0 12/05/2003 09/25/2018 2.5 mg /3 mL nebulizer q2hr prn solution fluticasone Administer 2 sprays 0 07/18/201410/13 (for_FLONASE) 50 into affected mcg/actuation nasal nostril(s) 2 (two) spray times a day as needed. fluticasone-salmeterol Inhale 1 puff. 0 2 11/04/2017 (for_ADVAIR DISKUS) 250-50 mcg/dose diskus inhaler montelukast Take 10 mg by mouth. 0 03/22/2013 (for_SINGULAIR) 10 mg tablet montelukast (SINGULAIR) Take 10 mg by mouth as 0 03/22/2013 02/19/2019 10 mg tablet directed. prenat.vits,hernandez,min-iro Take 1 tablet by 0 201310/06/2017 n-folic ( mouth. VITAMIN) tablet prenat.vits,hernandez,min-iro Take 1 tablet by mouth 0 08/20/2013 02/19/2019 n-folic ( daily. VITAMIN) tablet traZODone (for_DESYREL) Take 1 tablet by mouth 0 06/20/2015 10/06/2017 50 mg tablet daily. documented as of this encounter ED Notes Rajesh Kahn M.D. - 08/15/2016 4:18 PM CST UC - Sinus Pain or Congestion Patient: DHIRAJ LANDA Age: 21 years Sex: Female : 1995 Author: RAJESH KAHN MD Attachments: None Associated Diagnosis: Dependence (Tobacco) Nicotine; Sinusitis Acute NOS Basic Information Time seen: Date & time 08/15/2016 16:05:00. History source: Patient. Arrival mode: Private vehicle, walking. History limitation: None. Additional information: Chief Complaint from Nursing Triage Note : Chief Complaint Description 08/15/2016 15:48 MIXER AND BLENDER Chief Complaint Description presents with sinus congestion for 3 days . History of Present Illness States she has had cold symptoms for 5 days. She is having ear pressure and head pain. She has asthma which is well controlled, does smoke cigarettes. She has not had a fever. She has some cough. Her sinuses feel congested, and she has throat drainage but no sore throat. She has not had her flu shot. She is not sleeping well because of the congestion and pain. She has been taking a combination generic cold medication. She has not added any ibuprofen or acetaminophen. She has not been on antibiotics for several years. 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 She has a 2 year old at home. She is tired from the holiday activities. The patient presents with ear, nose, throat problem. The onset was 5 days ago. The course/duration of symptoms is worsening. The character of symptoms is pain. The degree at present is moderate. Risk factors consist of none. Prior episodes: occasional. Associated symptoms: chills, headache, Nasal and head congestion, ears are plugged. and denies fever. Review of Systems Constitutional symptoms: Fatigue, but no fever. Skin symptoms: No rash. Eye symptoms: Vision unchanged, but no discharge. ENMT symptoms: Ear pain, nasal congestion and sinus pain. Respiratory symptoms: No wheezing. Cardiovascular symptoms: No chest pain. Gastrointestinal symptoms: No nausea or no vomiting. Musculoskeletal symptoms: Negative except as documented in HPI. Neurologic symptoms: Negative except as documented in HPI. Hematologic/Lymphatic symptoms: Negative except as documented in HPI. Allergy/immunologic symptoms: Negative except as documented in HPI. Additional review of systems information: All other systems reviewed and otherwise negative. Health Status Allergies: Allergic Reactions (Selected) Severity Not Documented Suprax- Unknown.. Medications: (Selected) Prescriptions Prescribed Advair Diskus 250 mcg-50 mcg inhalation powder: 1 puff(s), Inhalation, 2xDay, 3 each Augmentin 875 mg-125 mg oral tablet: 1 tab(s), PO, 2xDay, for 7 day(s), 14 tab(s), 0 Refill(s) Effexor XR 37.5 mg oral capsule, extended release: 37.5 mg, 1 cap(s), PO, Daily, 30 cap(s), 2 Refill(s) Flonase 0.05 mg/inh nasal spray: 2 spray(s), Nasal, 2xDay, 3 each Ventolin HFA 90 mcg/inh inhalation aerosol: 2 puff(s), Inhalation, As Directed, PRN: Shortness of breath / Wheezing, 1 each, 3 Refill(s) traZODone 50 mg oral tablet: 50 mg, 1 tab(s), PO, Daily, 90 tab(s), 1 Refill(s). Immunizations: Include Immunizations Immunizations reviewed. , tetanus up to date. Menstrual history: Uses a hormone patch as well as condoms for contraception. Past Medical/ Family/ Social History Medical history: Resolved Supervision of Normal First (V22.0): Onset on 06/06/2013 at 18 years. Resolved. Comments: - Supervision of normal first 08/02/13 Urine culture: negative profile not seen on sono: f/u ordered ([id number]): Onset on 06/06/2013 at 18 years. Resolved on 12/27/2013 at 18 years. Otitis Media Acute NOS ([id number]): Resolved. Pneumonia NOS (817375624): Resolved. Varicella Zoster (300346802): Resolved. Vaginosis Bacterial (616.10): Resolved. Decreased Fetus Movement Affecting Preg Management (655.73): Resolved. Bleeding Vaginal Preg >22 Week Antepartum (641.93): Resolved. Carrier Group B Streptococcus (V02.51): Resolved. Delivery Vaginal Normal Spontaneous () (650): Resolved.. Surgical history: HC REMOVE TONSILS/ADENOIDS,<12 Y/O - 06/28/00 on 06/28/2000 at 5 Years. DENTAL SURGERY - wisdom teeth on .. Family history: [place] - Breast cancer Grandmother (paternal) Diabetes mellitus Grandmother (paternal) Grandfather (paternal) . 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 Problem list: All Problems Asthma NOS (493.90) / 493.90 / Confirmed Depression NOS / F32.9 / Confirmed Hypertension HTN Gestational (PIH) Delivered / 642.31 / Confirmed Resolved: Allergic asthma NOS with status asthmaticus / 493.91 Resolved: Bleeding Vaginal Preg >22 Week Antepartum / 641.93 Resolved: Carrier Group B Streptococcus / V02.51 Resolved: Closed fracture of tibia and fibula / 823.82 Resolved: Decreased Fetus Movement Affecting Preg Management / 655.73 Resolved: Delivery Vaginal Normal Spontaneous () / 650 Resolved: Supervision of Normal First / V22.0 Resolved: Otitis Media Acute NOS / [id number] Resolved: / 523661686 Resolved: Pneumonia NOS / 730121277 Resolved: Vaginosis Bacterial / 616.10 Resolved: Varicella Zoster / 054152637 Canceled: Discharge Vaginal / 623.5. Physical Examination Vital Signs: Vital Signs 08/15/2016 15:48 MIXER AND BLENDER Temperature Core 36.8 DegC Peripheral Pulse Rate 78 /min Respiratory Rate 16 /min SpO2 98 % Systolic Blood Pressure 130 mmHg Diastolic Blood Pressure 84 mmHg . General: Alert and appears tired, sounds congested in the head. Skin: Warm and dry. Head: Normocephalic. Neck: Supple and no tenderness. Eye: Normal conjunctiva. Ears, nose, mouth and throat: Tympanic membranes clear, oral mucosa moist, no pharyngeal erythema orexudate, Piercings of nose, tongue, ear lobes, Sinus: Maxillary, mild, tenderness and Nose: Congestion. Cardiovascular: Regular rate and rhythm. Respiratory: Respirations are non-labored and breath sounds are equal. Musculoskeletal: No deformity Neurological: Normal speech observed. Lymphatics: No lymphadenopathy. Psychiatric: Cooperative. Medical Decision Making Differential Diagnosis:Otitis media, upper respiratory infection, pharyngitis, sinusitis. Rationale:Symptoms are consistent with sinusitis. Discussed role for antibiotics if worsening after 10 days, or fever over 101 and significant facial pain. Will give a wait and see rx for Augmentin. Inthe meantime, discussed measures to control symptoms.. Impression and Plan Diagnosis Dependence (Tobacco) Nicotine (Discharge, Emergency medicine, Medical) Sinusitis Acute NOS (Discharge, Emergency medicine, Medical) Plan Condition: Stable. Disposition: Medically cleared, Discharged: to home. Prescriptions: Augmenting 875 mg #14, fill if worsening. Patient was given the following educational materials: Acute Sinusitis. Limitations: No work, For 1 days. Follow up with: AMANDA Luna As Needed. Counseled: Patient, Regarding diagnosis, Regarding diagnostic results, Regarding treatment plan, Patient indicated understanding of instructions. Electronically Signed By: RAJESH KAHN MD On: 08/15/2016 04:29 PM Source: [facility] Document Id: [id number] R AND BLENDER Shirley Marsh RGonzaloNGonzalo - 08/15/2016 4:14 PM CST ED Pain Assessment ED Pain Assessment Entered On: 08/15/2016 16:14 MIXER AND BLENDER Performed On: 08/15/2016 16:14 MIXER AND BLENDER by SHIRLEY MARSH RN Pain Assessment Pain Symptoms : Yes SHIRLEY MARSH RN - 08/15/2016 16:14 MIXER AND BLENDER [facility] Document Id: [id number] MIXER AND BLENDER!3 R AND BLENDER Shirley Marsh R.N. - 08/15/2016 4:14 PM CST ED Disposition Summary ED Disposition Summary Entered On: 08/15/2016 16:14 MIXER AND BLENDER Performed On: 08/15/2016 16:14 MIXER AND BLENDER by SHIRLEY MARSH SALES ORDER COORDINATOR Disposition Summary Present in Room During Exam/Procedure : Alone Mode of Discharge : Ambulatory Transportation : Private vehicle Printed Discharge Instructions Given to Patient : Yes SHIRLEY MARSH RN - 08/15/2016 16:14 MIXER AND BLENDER Source: [facility] [employer] Document Id: [id number] MIXER AND BLENDER!6 R AND BLENDER Shirley Marsh R.N. - 08/15/2016 4:05 PM CST ED Primary Assessment Document Has Been Updated ED Primary Assessment Entered On: 08/15/2016 16:06 MIXER AND BLENDER Performed On: 08/15/2016 16:05 MIXER AND BLENDER by SHIRLEY MARSH RN Reason For Visit (As Of: 08/15/2016 16:06:38 MIXER AND BLENDER) Problems(Active) Asthma NOS (493.90) (ICD-9-CM :493.90 ) Name of Problem: Asthma NOS (493.90) ; Recorder: ENEIDA ENCISO MANAGER SOCIAL SERVICES; Confirmation: Confirmed ; Classification: Medical ; Code: 493.90 ; Last Updated: 02/15/2012 9:50 CDT ; Life Cycle Date: 02/15/2012 ; Life Cycle Status: Active ; Vocabulary: ICD-9-CM ; Comments: 05/01/2012 16:07 - EMBER PERLA LPN unknown date of dx 12/26/2013 16:01 - SKY CUMMINS MD Exercise induced Depression NOS (ICD-10-CM :F32.9 ) Name of Problem: Depression NOS ; Recorder: AMANDA ARREOLA NP; Confirmation: Confirmed ; Classification: Medical ; Code: F32.9 ; Contributor System: [employer] ; Last Updated: 06/20/2015 9:35 MIXER AND BLENDER ; Life Cycle Status: Active ; Responsible Provider: AMANDA ARREOLA MANAGER SOCIAL SERVICES; Vocabulary: ICD-10-CM Hypertension HTN Gestational (PIH) Delivered (ICD-9-CM :642.31 ) Name of Problem: Hypertension HTN Gestational (PIH) Delivered ; Recorder: LORY VILLA MD; Confirmation: Confirmed ; Classification:Medical ; Code: 642.31 ; Contributor System: [employer] ; Last Updated: 12/27/2013 19:03 CDT ; Life Cycle Date: 12/27/2013 ; Life Cycle Status: Active ; Vocabulary: ICD-9-CM Diagnoses(Active) UC - Sinus Pain or Congestion Date: 08/15/2016 ; Diagnosis Type: Reason For Visit ; Confirmation: Complaint of ; Clinical Dx: UC - Sinus Pain or Congestion ; Classification: Medical ; Clinical Service:Emergency medicine ; Code: PNED ; Probability: 0 ; Diagnosis Code: [id number] Triage Mode of Arrival ED : Private vehicle Track : Medical Languages : Kuwaiti Treatments Prior to Arrival : None Are you ? : No Is Patient Female and 13-50 no hysterectomy : Yes Status : Patient denies SHIRLEY MARSH RN - 08/15/2016 16:05 MIXER AND BLENDER Pain Assessment Pain Symptoms : Yes SHIRLEY MARSH RN - 08/15/2016 16:05 MIXER AND BLENDER Respiratory Airway : Patent Respirations : Unlabored Respiratory Pattern : Regular SHIRLEY MARSH RN - 08/15/2016 16:05 MIXER AND BLENDER Cardiovascular Heart Rhythm : Regular Skin Color : Normal for ethnicity Skin Description : Dry Skin Temperature : Warm SHIRLEY MARSH RN - 08/15/2016 16:05 MIXER AND BLENDER Neurological Last Well Time Known : Not applicable Level of Consciousness : Alert Orientation : Oriented x 3 Characteristics of Speech : Appropriate for age SHIRLEY MARSH RN - 08/15/2016 16:05 MIXER AND BLENDER ED Psychosocial Affect/Behavior : Calm, Cooperative, Appropriate Domestic Abuse Concerns : None Behavioral Health Screen/Safety Assmt : No SHIRLEY MARSH RN - 08/15/2016 16:05 MIXER AND BLENDER Gastrointestinal Nutrition ED : Adequate SHIRLEY MARSH RN - 08/15/2016 16:05 MIXER AND BLENDER Musculoskeletal Fall Prevention Education Provided : NA SHIRLEY MARSH RN - 08/15/2016 16:05 MIXER AND BLENDER Social Habits Exposure to Tobacco Smoke : Care provider denies smoking in home, Other: former smoker Smoking Status : Never smoker Tobacco 2A : No Tobacco Use/Currently Using : No Tobacco Use/Last 30 Days : No Tobacco Use/Last 12 months : No SHIRLEY MARSH RN - 08/15/2016 16:05 MIXER AND BLENDER Alcohol Use Grid Alcohol Use : No SHIRLEY MARSH RN - 08/15/2016 16:05 MIXER AND BLENDER Recreational Drug Use Grid Drug Use : None SHIRLEY MARSH RN - 08/15/2016 16:05 MIXER AND BLENDER Source: [facility] [employer] Document Id: [id number] MIXER AND BLENDER!46 R AND BLENDER Shirley Marsh R.N. - 08/15/2016 3:48 PM CST ED Triage Assessment Document Has Been Updated ED Triage Assessment Entered On: 08/15/2016 15:50 MIXER AND BLENDER Performed On: 08/15/2016 15:48 MIXER AND BLENDER by SHIRLEY MARSH RN Reason For Visit (As Of: 08/15/2016 15:50:20 MIXER AND BLENDER) Problems(Active) Asthma NOS (493.90) (ICD-9-CM :493.90 ) Name of Problem: Asthma NOS (493.90) ; Recorder: ENEIDA ENCISO NP; Confirmation: Confirmed ; Classification: Medical ; Code: 493.90 ; Last Updated: 02/15/2012 9:50 CDT ; Life Cycle Date: 02/15/2012 ; Life Cycle Status: Active ; Vocabulary: ICD-9-CM ; Comments: 05/01/2012 16:07 - EMBER PERLA LPN unknown date of dx 12/26/2013 16:01 - SKY CUMMINS MD Exercise induced Depression NOS (ICD-10-CM :F32.9 ) Name of Problem: Depression NOS ; Recorder: AMANDA ARREOLA NP; Confirmation: Confirmed ; Classification: Medical ; Code: F32.9 ; Contributor System: [employer] ; Last Updated: 06/20/2015 9:35 MIXER AND BLENDER ; Life Cycle Status: Active ; Responsible Provider: AMANDA ARREOLA NP; Vocabulary: ICD-10-CM Hypertension HTN Gestational (PIH) Delivered (ICD-9-CM :642.31 ) Name of Problem: Hypertension HTN Gestational (PIH) Delivered ; Recorder: LORY VILLA MD; Confirmation: Confirmed ; Classification:Medical ; Code: 642.31 ; Contributor System: K[employer]i ; Last Updated: 12/27/2013 19:03 CDT ; Life Cycle Date: 12/27/2013 ; Life Cycle Status: Active ; Vocabulary: ICD-9-CM Diagnoses(Active) UC - Sinus Pain or Congestion Date: 08/15/2016 ; Diagnosis Type: Reason For Visit ; Confirmation: Complaint of ; Clinical Dx: UC - Sinus Pain or Congestion ; Classification: Medical ; Clinical Service:Emergency medicine ; Code: PNED ; Probability: 0 ; Diagnosis Code: [id number] Triage Chief Complaint Description : presents with sinus congestion for 3 days Information Given By : Patient Present in Room During Exam/Procedure : Alone Mode of Arrival ED : Private vehicle Track : Medical Languages : Kuwaiti Patient Informed of Triage Location : Emergency department Vital Signs Assessed : Yes Treatments Prior to Arrival : None Are you ? : No Is Patient Female and 13-50 no hysterectomy : Yes Status : Patient denies SHIRLEY MARSH RN - 08/15/2016 15:48 MIXER AND BLENDER Vital Signs Temperature Core : 36.8 DegC(Converted to: 98.2 DegF) Peripheral Pulse Rate : 78 /min Respiratory Rate : 16 /min Systolic Blood Pressure : 130 mmHg Diastolic Blood Pressure : 84 mmHg NIBP Mean : 99 mmHg BP Location : Left upper extremity SpO2 : 98 % Oxygen Therapy : Room air SHIRLEY MARSH RN - 08/15/2016 15:48 MIXER AND BLENDER Pain Assessment Pain Symptoms : Yes SHIRLEY MARSH RN - 08/15/2016 15:48 MIXER AND BLENDER Pain Scale Pain Scale Verbal 0-10 : Open SHIRLEY MARSH RN - 08/15/2016 15:48 MIXER AND BLENDER Pain Pain Assessment Grid Pain 1 Location : Head Laterality : Bilateral Intensity : 6 SHIRLEY MARSH RN - 08/15/2016 15:48 MIXER AND BLENDER ED Physician Notification Time ED Physician Notification Time : 08/15/2016 15:50 MIXER AND BLENDER SHIRLEY MARSH RN - 08/15/2016 15:48 MIXER AND BLENDER RAMA DCP GENERIC CODE Tracking Acuity : 5 -Non Urgent Tracking Group : [facility] ED SHIRLEY MARSH RN - 08/15/2016 15:48 MIXER AND BLENDER Allergy (As Of: 08/15/2016 15:50:20 MIXER AND BLENDER) Allergies (Active) Suprax Estimated Onset Date: <not entered> 06/01/2013 ; Reactions: Unknown ; Comments: Comment1: Unknown reaction as a child ; Created By: SKY CUMMINS MD; Reaction Status: Active ; Category: Drug ; Substance: Suprax ; Type: Allergy ; Updated By: SKY CUMMINS MD; Source: Paper Chart/Abstracting ; Reviewed Date: 08/15/2016 15:50 MIXER AND BLENDER ID Screen Drug Resistant Organism : No Travel Within Last 21 Days : No Contact with someone with Ebola : No SHIRLEY MARSH RN - 08/15/2016 15:48 MIXER AND BLENDER Immunizations Influenza : None SHIRLEY MARSH RN - 08/15/2016 15:48 MIXER AND BLENDER [facility]: [facility] Document Id: [id number] MIXER AND BLENDER!46 R AND BLENDER documented in this encounter Miscellaneous Notes Miscellaneous - Conversion, Historical Provider Ser - 08/15/2016 4:24 PM MIXER AND BLENDER Coding Summary-Paper Based CODING DATE: 08/21/2016 FINAL [facility] STATUS: * Discharged to Home or Self Care PAYOR: Commercial Insurance ADMIT DX: R51 Headache REASON FOR VISIT DX: R51 Headache FINAL DX: PRINCIPAL: J01.90 Acute sinusitis, unspecified SECONDARY: F17.200 Nicotine dependence, unspecified, uncomplicated H92.09 Otalgia, unspecified ear R53.83 Other fatigue J45.909 Unspecified asthma, uncomplicated Z88.9 Allergy status to unspecified drugs, medicaments and biological substances status PROCEDURES DOCTOR NAME DATE NOTE: The code number assigned matches the documented diagnosis and / or procedure in the patient's chart. However, the narrative phrase printed from the coding software may appear abbreviated, or result in slightly different terminology. Coded By: SAMMIE SOLER Date Saved: 08/21/2016 12:38 pm Source: [employer] Document Id: [id number] Miscellaneous - Rajesh Kahn M.D. - 08/15/2016 4:17 PM CST Work Excuse August 15, 2016 DHIRAJ LANDA [address] [facility] [address] [place] [address] Dear DHIRAJ LANDA, You were examined in my office on: August 15, 2016 Reason for work excuse: Medical Illness ( x) Yes ( _ ) No Injury ( _ ) Yes ( _ ) No Is excused from all work: ( x ) Yes ( _ ) No Has work limitations: ( _ ) Yes ( _ ) No As follows: _ Limitations apply until: May return to work on August 17, 2016 without restriction. Follow-Up Appointment : ( _ ) Return to Work date: NO WORK on August 16. May return to work on August 17. Notes: _ Sincerely, RAJESH KAHN [address] [place] [address] Electronic Signature Electronically Signed By: RAJESH KAHN MD On: August 15, 2016 This document has images extracted. Source: [facility] [employer] Document Id: [id number] Electronically signed by Stuart [facility] Systemjose j Bingo Caller [id number] at 01/24/2017 10:16 PM CDT Miscellgustabo - Shirley Marsh R.NGonzalo - 08/15/2016 4:14 PM CST Valuables/Belongings Valuables/Belongings Entered On: 08/15/2016 16:14 MIXER AND BLENDER Performed On: 08/15/2016 16:14 MIXER AND BLENDER by SHIRLEY MARSH RN Valuables/Belongings Home Medication Disposition : None brought in with patient SHIRLEY MARSH RN - 08/15/2016 16:14 MIXER AND BLENDER Source: [facility] [employer] Document Id: [id number] MIXER AND BLENDER!3 R AND BLENDER Miscellaneous - Shirley Marsh R.NGonzalo - 08/15/2016 3:43 PM CST Facility Charge Ticket 2.0 11.0 DX Facility Charge Ticket 2.0 11.0 DX Entered On: 08/15/2016 16:14 MIXER AND BLENDER Performed On: 08/15/2016 15:43 MIXER AND BLENDER by SHIRLEY MARSH RN Facility Charge Ticket 2.0 11.0 DX ED Other Charges : Standard ED Encounter TVL Level Translated RTF : UC - Sinus Pain or Congestion TVL:3 TVL Level for Facility Charge Ticket : Level 3 Arrival Mode Calc : 1 Mode of Arrival ED : Private vehicle [facility]x Mode of Arrival Interpreted : Standard [facility]x Process Management : None [facility]x Order Management : None 30 Minutes Critical Care : No Nursing Notes RTF : Triage Forms ED Triage Assessment,08/15/16 15:48,SHIRLEY MARSH RN Nursing Notes ED Primary Assessment,08/15/16 16:05,SHIRLEY MARSH RN [facility]x Nursing Assessment : Triage and 1-2 nursing assessments Lynx Disposition : Discharge [facility]x Total Points with Diagnosis Control : 5 Lynx Visit Level : 34627 Level 3 Treatments Prior to Arrival : None SHIRLEY MARSH RN - 08/15/2016 16:14 MIXER AND BLENDER Source: [facility] [employer] Document Id: [id number] MIXER AND BLENDER!17 R AND BLENDER documented in this encounter Plan of Treatment Not on filedocumented as of this encounter Visit Diagnoses Not on filedocumented in this encounter
--- OUTSIDE RECORDS SUMMARY | 2022-04-07 13:17 | XMS_ITS | Encounter Summary ---
:1995 Author Organization [facility] Address [address] [place] [address] Care Team Providers Name Role Phone Holley Saucedo APRN, C.N.P. Primary Care Provider [phone] Reason for Visit Physical Therapy (Routine) - Canceled Specialty Diagnoses / Procedures Referred By Contact Refer red To Contact Diagnoses Pain Hip Left Holley Saucedo APRN, [facility] Region Procedures PT Ongoing treatment C.N.P. [address] [place] [address] Referral ID Status Reason Start Date Expiration Date Visits V isits Requested Authorized [id number] Canceled 06/13/2017 12/10/2017 12 99 Encounter Details Date Type Department Care Team Description 06/21/2017 Clinical Support Department of Aspen Saucedo APRN, C.N.P. [address] [place] [address] Pain Hip Left Rehabilitation Services Vadnana Au, P.T. in [address] [phone] Social History Tobacco Use Types Packs/Day Years Used Date Smoking Tobacco: Every Day Alcohol Habits Answer Date Recorded How often [...] 10/23/2020 relatives? How often do you attend mormon or presybeterian Never 10/23/2020 services? 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 - 06/21/2017 8:30 AM CST Physical Therapy Outpatient Treatment Note SUBJECTIVE Patient Comments: Patient reports she is significantly better after last session. However when she return to work on Tuesday they did not allow her to work with her restrictions. She was a lot worse andfelt a lot more pain in the left hip. Today she was doing better. Visit Counts:1 Visit Diagnosis: #1 Pain Hip Left OBJECTIVE Pain Assessment Pain Assessment: 0-10 Numeric Pain Intensity Scale Pain Score: (Pt reported bad pain in hip on Tuesday when at work. Reported that pain was significantly improved after our last session.) Pain Location: Hip Pain Orientation: Anterior, Left Clinical Progression: Gradually improving treatment today session started with patient doing the scifIT at L3.0 for total of 8 minutes. Patient was then progressive manual therapies with posterior/lateral hip joint goals with the gait belt insupine position. Patient then had long axis distraction of the left lower extremity in supine position. She tolerated well. Patient stood and walked in the gym. She continues to have snapping in the left lower extremity. Unable to isolate completely. Patient was given strengthening exercises as follows: Bridging with the ball between the knees, straight leg raises with Thera-Band, side-lying straightleg raises with Thera-Band. Patient was given her work ability report so that she could bring this to work for her restrictions. patient was able to tolerate the session well. Measures - Tools Assessment Rehab Potential: Measures - Tools Plan Plan: Continue with current plan Patient agrees with the plan of care and goals. Time Spent with Patient Manual Therapy (min): 11 min Therapeutic Exercise (min): 25 min Total Timed Units (min): 36 min Total Treatment Time (min): 36 min Functional G-code Worksheet TLE FINAL INSPECTOR documented in this encounter Plan of Treatment Not on filedocumented as of this encounter Visit Diagnoses Diagnosis Pain Hip Left documented in this encounter Additional Health Concerns Assessment Noted Time PHQ-9 Depression Total Score: 18 04/05/2017 2:38 PM CD T documented as of this encounter Care Teams Locker Plant Attendant Relationship Specialty Start Date End Date Holley Saucedo APRN, C.N.P. PCP - General 01/27/17 12/09/17 documented as of this encounter
--- OUTSIDE RECORDS SUMMARY | 2022-04-07 13:17 | XMS_ITS | Encounter Summary ---
:1995 Author Organization [facility] Address [address] [place] [address] Care Team Providers Name Role Phone Holley Saucedo APRN C.N.P. Primary Care Provider [phone] Encounter Details Date Type Department Care Team Description 06/24/2017 Clinical Communication Department of [facility] Rehabilitation Services Vandana Baker P.T. 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 PCP - General 01/27/17 12/09/17 documented as of this encounter
--- OUTSIDE RECORDS SUMMARY | 2022-04-07 13:17 | XMS_ITS | Encounter Summary ---
:1995 Author Organization [facility] Address [address] [place] [address] Care Team Providers Name Role Phone Holley Saucedo APRN, C.N.P. Primary Care Provider [phone] Encounter Details Date Type Department Care Team Description 09/12/2017 Hospital Encounter Department of Holley Saucedo nitpaty Disorder Laboratory Medicine TOBI Baker, C.N .P. Screening Exam in [address] [phone] [place], [place] (Work) [phone] Social History Tobacco Use [...] 10/23/2020 relatives? How often do you attend anabaptist or jewish Never 10/23/2020 services? 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 documented in this encounter Results QuantiFERON-TB Gold In-Tube for Detection of Latent Tuberculosis (09/12/2017 4:45 PM HORIZONTAL BORING MILL SET UP OPERATOR) athologist Signature QuantiFERON-TB Negative Negative 09/15/2017 [facility] Gold Result 1:25 PM [facility] Comment: No interferon-gamma response to M. tuber culosis antigens was detected. Infection with M. tubercul osis is unlikely. A negative result alone does not exclude infection with M. tuberculosis. For detailed information regarding test interpretation see: [email or web address] Clinical+and+Interpretive/05738 TB Ag minus Nil Result 0.01 IU/mL 09/15/2017 1:25 P M HORIZONTAL BORING MILL SET UP OPERATOR [facility] Mitogen minus Nil >10.00 IU/mL 09/15/2017 1:25 PM HORIZONTAL BORING MILL SET UP OPERATOR [facility] Nil Result 0.02 IU/mL 09/15/2017 1:25 PM [facility] Specimen Anatomical Collection Method Collection Time Receive d Time (Source) Location / / Volume Laterality Blood (Blood, 09/12/2017 4:45 PM 09/13/19 18 3:58 Venous) HORIZONTAL BORING MILL SET UP OPERATOR PM HORIZONTAL BORING MILL SET UP OPERATOR Narrative [facility] - 09/15/2017 1:25 PM HORIZONTAL BORING MILL SET UP OPERATOR Specimen Information: Specimen ID: [id number] Specimen Type: Blood Specimen Collection Start Date: 09/12/19 18 ??4:45 PM Specimen Received Date: 09/13/2017 ??3:5 8 PM Specimen ID: [id number] Specimen Type: Blood Specimen Collection Start Date: 09/12/19 18 ??4:45 PM Specimen Received Date: 09/13/2017 ??3:5 8 PM Specimen ID: [id number] Specimen Type: Blood Specimen Collection Start Date: 09/12/19 18 ??4:45 PM Specimen Received Date: 09/13/2017 ??3:5 8 PM Holley Saucedo APRN, C.N.P. LAB MICROBIOLOGY - BLOO D ORDERABLES Performing Organization Address City/State/ZIP Code Phon e Number [facility] [place] [address] [place] [address], [place] [address] [facility] documented in this encounter Visit Diagnoses Diagnosis Immunity Disorder Screening Exam documented in this encounter Additional Health Concerns Assessment Noted Time PHQ-9 Depression Total Score: 9 08/30/2017 4:00 PM HORIZONTAL BORING MILL SET UP OPERATOR documented as of this encounter Care Teams Lug Loader Relationship Specialty Start Date End Date Holley Saucedo APRN, C.N.P. PCP - General 01/27/17 12/09/17 documented as of this encounter
--- OUTSIDE RECORDS SUMMARY | 2022-04-07 13:17 | XMS_ITS | Encounter Summary ---
:1995 Author Organization [facility] Address [address] [place] [address] Care Team Providers Name Role Phone Holley Saucedo APRN, C.N.P. Primary Care Provider [phone] Reason for Visit Reason Comments Med Refill Encounter Details Date Type Department Care Team Description 09/01/2017 Refill Department of [facility] Holley Saucedo APRN, Med Refill Medicine, [facility], in [address] [place] [address] [place], [place] [address] [phone] Social History Tobacco Use Types Packs/Day Years [...] How often do you attend religion or sabianism Never 10/23/2020 services? 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 - 09/01/2017 3:27 PM CST Images from the original note were not included. Spoke with Manuel at [facility] and clarified Rx Sig according to provider message below: Chandni Urbina APRN, D.N.PGonzalo, C.N.P. Rhianna Dubose C.M.A. Caller: Unspecified (Today, 12:45 PM) ?? Please call and confirm I'd like the patient to take Gabepentin 300mg for the first night, then start twice daily for 3 days, then 300mg TID until symptoms resolve. Thanks. [facility] [employer] Telephone Encounter - Roseline Haji - 09/01/2017 12:45 PM CST Images from the original note were not included. Nurse Review: Pharmacy Communication Provider: Nahid Saucedo Medication: Gabapentin Strength: 300 mg capsule Frequency: Take 1 capsule (300 mg total) by mouth 3 (three) times a day. Start with 300mg at bedtime, then 300mg BID for 3 days, then 300mg TID. Pharmacy Comment: Per pharmacy - Please clarify 300 mg QHS x day ? (blank spot circled) 300 mg BID x 3 days 300 mg TID thereafter [facility] [employer] documented in this encounter Plan of Treatment Not on filedocumented as of this encounter Visit Diagnoses Not on filedocumented in this encounter Additional Health Concerns Assessment Noted Time PHQ-9 Depression Total Score: 9 08/30/2017 4:00 PM MEDICAL LABORATORY TECHNICIANS documented as of this encounter Care Teams Ferryboat Pilot Relationship Specialty Start Date End Date Holley Saucedo APRN, C.N.P. PCP - General 01/27/17 12/09/17 documented as of this encounter
--- OUTSIDE RECORDS SUMMARY | 2022-04-07 13:17 | XMS_ITS | Encounter Summary ---
:1995 Author Organization [facility] Address [address] [place] [address] Care Team Providers Name Role Phone Holley Saucedo APRN, C.N.P. Primary Care Provider [phone] Reason for Referral MRI/CAT/PET Scan (Routine) - Closed Specialty Diagnoses / Procedures Referred By Contact Refer red To Contact Radiology Diagnoses Pain Hip Left Holley Saucedo APRN, [facility] Region Procedures MR Hip Left without IV Contrast C.N.P. 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 Pain Hip Left Clinic, in [address] [address] [place] [id number] [facility] [phone] [place], [place] (Work) [phone] Social History Tobacco Use Types Packs/Day Years Used Date Smoking Tobacco: Every Day Cigarettes 0.3 Smokeless Tobacco: Never Comments: less than 5 a day Alcohol Use Standard Drinks/Week Comments Yes 2 [...] 10/23/2020 relatives? How often do you attend baptism or quaker Never 10/23/2020 services? 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 documented as of this encounter Last Filed Vital Signs Vital Sign Reading Time Taken Comments Blood Pressure 123/69 08/18/2017 1:37 PM COLLET MAKING MACHINE OPERATOR Pulse 73 08/18/2017 1:37 PM COLLET MAKING MACHINE OPERATOR Temperature 36.8 ??C (98.2 ??F) 08/18/2017 1:37 PM COLLET MAKING MACHINE OPERATOR Respiratory Rate 16 08/18/2017 1:37 PM COLLET MAKING MACHINE OPERATOR Oxygen Saturation - - Inhaled Oxygen Concentration - - Weight 99 kg (218 lb 4.1 oz) 08/18/2017 1:37 PM COLLET MAKING MACHINE OPERATOR Height 166 cm (5' 5.35) 08/18/2017 1:37 PM COLLET MAKING MACHINE OPERATOR Body Mass Index 35.93 08/18/2017 1:37 PM COLLET MAKING MACHINE OPERATOR documented in this encounter Progress Notes Holley Saucedo C.N.P., R.N. 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 She is requesting completion of a physical exam form and an update on her i mmunizations. She reports she has had continued concerns related to left hip pain with ???snapping?? . She reports she is currently not working. Physical therapy has been placed on hold related to lefthip pain. She reports she is still very ???limited?? related to physical activity with her left hippain. She reports she will contact her employer for her tuberculosis records which were updated overthe last year. She reports she did have the ???chicken pox?? when she was approximately [age] years old. She reports she has received all her immunizations in [place]. She denies any other health concerns today. She denies any headaches or dizziness. She denies any heart palpitations, chest pain or shortness of breath. She is here today for further evaluation. She has no other concerns today. Brief Review of Systems: A brief review of systems was negative except for that mentioned in the history of present of illness. Current Outpatient Medications Medication Sig ??? albuterol (VENTOLIN HFA) 90 mcg/actuation inhaler Inhale 2 puffs every 4 (four) hours as needed for wheezing. ??? fluticasone (for_FLONASE) 50 mcg/actuation nasal spray Administer 2 sprays into affected nostril(s) 2 (two) times a day. ??? fluticasone-salmeterol (for_ADVAIR DISKUS) 250-50 mcg/dose diskus inhaler Inhale 1 puff. ??? lamoTRIgine (for_LaMICtal) 100 mg tablet Start after 25 mg tabs. 1 tab daily for a week, then 1.5 tabs daily ??? LEVONORGESTREL-ETHIN ESTRADIOL (CHATEAL ORAL) Take 1 tablet by mouth daily. ??? albuterol (for_ACCUNEB) 2.5 mg /3 mL nebulizer solution one unit dose quid and q2hr prn ??? azithromycin (for_ZITHROMAX) 250 mg tablet Take 2 tablets the first day, then 1 tablet daily for4 days. (Patient not taking: Reported on 08/18/2017 ) ??? lamoTRIgine (for_LaMICtal) 25 mg tablet 1 tab daily for 2 weeks, then 2 tabs daily for 2 weeks, then switch to 100 mg tabs ??? methylPREDNISolone (for_MEDROL DOSEPACK) 4 mg tablet follow package directions (Patient not taking: Reported on 08/18/2017 ) ??? montelukast (for_SINGULAIR) 10 mg tablet Take 10 mg by mouth. ??? prenat.vits,hernandez,wuv-kohv-trnmp ( VITAMIN) tablet Take 1 tablet by mouth. ??? traZODone (for_DESYREL) 50 mg tablet Take 1 tablet by mouth daily. ??? venlafaxine XR (for_EFFEXOR-XR) 37.5 mg 24 hr capsule 1 cap daily for a week, then discontinue (Patient not taking: Reported on 08/18/2017 ) Allergies Allergen Reactions ??? Cefixime Other (see comments) Unknown reaction as a child OBJECTIVE PHYSICAL EXAM BP 123/69 (BP Location: Left arm, Patient Position: Sitting, Cuff Size: Large) Pulse 73 Temp 36.8 ??C (Temporal) Resp 16 Ht 166 cm Wt 99 kg BMI 35.93 kg/m?? Body mass index is 35.93 kg/m??. CONSTITUTIONAL: Alert and oriented. No acute distress. HEAD/EAR/NOSE/MOUTH/THROAT: Normocephalic/atraumatic. Canals patent, TMs normal. Oropharynx without lesion of mucosa. Pharyngeal rises symmetrically without exudate. CARDIOVASCULAR: Regular rate and rhythm. No murmurs, gallops or rubs noted. RESPIRATORY: Clear to auscultation bilaterally. No expiratory wheeze. No accessory muscles of respiration noted. MUSCULOSKELETAL: No neurovascular compromise. No cyanosis, clubbing or edema. NEUROLOGICAL: Cranial nerves II-VII grossly intact and symmetric. She ambulates with a steady gait. PSYCHIATRIC: Cooperative. Affect appropriate. ASSESSMENT / PLAN #1 Need Vaccine Immunization Influenza She received her influenza injection today. #2 General Medical Examination Adult A MMR titer is pending at time of dictation. She will contact her employer for records related to her recent [place] screen. I ordered a left hip MRI for further evaluation related to her activity level. Paperwork was completed and signed. All questions were answered. She left in no acute distress. Holley Saucedo C.N.P., RGonzaloN. Answers for HPI/ROS submitted by the patient on 08/12/2017 Sinus congestion: Yes Chest pain, pressure or tightness: Yes Shortness of breath when lying flat: Yes Shortness of breath: Yes Coughing up mucus (phlegm): Yes Wheezing: Yes ET MAKING MACHINE OPERATOR documented in this encounter Plan of Treatment Not on filedocumented as of this encounter Procedures Procedure Name Priority Date/Time Associated Diagnosis Comme nts MMRV IMMUNE STATUS Routine 08/18/2017 2:48 PM General Medical Results for this PROFILE COLLET MAKING MACHINE OPERATOR Examination Adult procedure are in the results section. documented in this encounter Results MR Hip Left without IV Contrast (09/22/2017 3:16 PM COLLET MAKING MACHINE OPERATOR) Anatomical Region Laterality Modality Lower Extremity, Hip Left Magnetic Resonance Specimen (Source) Anatomical Collection Method Collection Time Re ceived Time Location / / Volume Laterality 09/22/2017 3:31 PM COLLET MAKING MACHINE OPERATOR Impressions 09/22/2017 3:41 PM COLLET MAKING MACHINE OPERATOR IMPRESSION: 1. ??No acute appearing abnormality of t he left hip. 2. ??Incidentally noted disc desiccation with mild disc protrusion of the lower lumbar spine. Narrative 09/22/2017 3:41 PM COLLET MAKING MACHINE OPERATOR EXAM: MR HIP LEFT WITHOUT IV CONTRAST [...] Holley Saucedo APRN, C.N.P. IMG MRI PROCEDURES MMRV Immune Status Profile (08/18/2017 2:48 PM COLLET MAKING MACHINE OPERATOR) athologist Signature Measles Positive 08/19/2017 [facility] ([place]) Ab, 9:58 AM [facility] IgG, S SYSTEM- [facility] Comment: Results suggest response to immunization or prior exposure to the virus. ----REFERENCE VALUE---- Vaccinated: Positive (>=1.1 AI) Unvaccinated: Negative (<=0.8 AI) Measles IgG Antibody 4.2 08/19/2017 9:58 AM [facility] Mumps Ab, IgG, S Positive 08/19/2017 9:58 AM [facility] Comment: Results suggest response to immunization or prior exposure to the virus. ----REFERENCE VALUE---- Vaccinated: Positive (>=1.1 AI) Unvaccinated: Negative (<=0.8 AI) Mumps IgG Antibody Index 1.6 08/19/2017 9:58 AM [facility] Rubella Ab, IgG, S Positive 08/19/2017 9:58 AM [facility] Comment: Results suggest response to immunization or prior exposure to the virus. ----REFERENCE VALUE---- Vaccinated: Positive (>=1.0 AI) Unvaccinated: Negative (<=0.7 AI) Rubella IgG Antibody 2.0 08/19/2017 9:58 AM [facility] Varicella-Zoster Ab, Positive 08/19/2017 9:58 AM COLLET MAKING MACHINE OPERATOR [facility] IgG, S SYSTEM- [facility] Comment: Results suggest response to immunization or prior exposure to the virus. ----REFERENCE VALUE---- Vaccinated: Positive (>=1.1 AI) Unvaccinated: Negative (<=0.8 AI) Varicella IgG Antibody 2.9 08/19/2017 9:58 A M COLLET MAKING MACHINE OPERATOR [facility]- [facility] Specimen Anatomical Collection Method Collection Time Receive d Time (Source) Location / / Volume Laterality Blood (Blood, 08/18/2017 2:48 PM 08/18/19 18 9:37 Venous) COLLET MAKING MACHINE OPERATOR PM COLLET MAKING MACHINE OPERATOR Holley Saucedo APRN, C.N.P. LAB MICROBIOLOGY - BLOO D ORDERABLES Performing Organization Address City/State/ZIP Code Phon e Number [facility] [address] [place] [address], [place] [address] [facility] documented in this encounter Visit Diagnoses Diagnosis Need Vaccine Immunization Influenza - Pr imary General Medical Examination Adult Pain Hip Left Pain Hip Left documented in this encounter Additional Health Concerns Assessment Noted Time PHQ-9 Depression Total Score: 17 07/12/2017 10:[address] documented as of this encounter Care Teams Pipe Joints Supervisor Relationship Specialty Start Date End Date Holley Saucedo APRN, C.N.P. PCP - General 01/27/17 12/09/17 documented as of this encounter
--- OUTSIDE RECORDS SUMMARY | 2022-04-07 13:17 | XMS_ITS | Encounter Summary ---
:1995 Author Organization [facility] Address [address] [place] [id number] Care Team Providers Name Role Phone Holley Saucedo APRN, C.N.P. Primary Care Provider [phone] Reason for Visit Physical Therapy (Routine) - Canceled Specialty Diagnoses / Procedures Referred By Contact Refer red To Contact Diagnoses Pain Hip Left Holley Saucedo APRN, [facility] Region Procedures PT Ongoing treatment C.N.P. [address] [place] [address] Referral ID Status Reason Start Date Expiration Date Visits V isits Requested Authorized [id number] Canceled 06/13/2017 12/10/2017 12 99 Encounter Details Date Type Department Care Team Description 06/28/2017 Clinical Support Department of Aspen Saucedo APRN, C.N.P. [address] [place] [address] Pain Hip Left Rehabilitation Services Vandana Au, P.T. in [address] [phone] Social History Tobacco Use Types Packs/Day Years [...] 10/23/2020 relatives? How often do you attend voodoo or sikh Never 10/23/2020 services? 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 - 06/28/2017 10:00 AM CST Physical Therapy Outpatient Treatment Note SUBJECTIVE Patient Comments: Patient reports she still has decreased discomfort but is slightly plateau in withprogress. She has not gone back to work as of yet. Visit Counts:3 Visit Diagnosis: #1 Pain Hip Left OBJECTIVE Exercises Performed: Patient started session warming up on the elliptical for 8 minutes. Patient wasthen progressed with a self mobilization for the anterior hip. Patient did have some difficulty withthis. She was given YouTube videos for a different self mobilization for the anterior hip as well asthe posterior lateral hip. She will be doing these at home. Patient was given 2 gait belt to utilizethese at home for these mobilizations. Also did long axis distraction on the left lower extremity at2 sets of 30 seconds. She was given a purple Thera- Band to progress her lower extremity exercises athome today. She reports she was ready for this. Patient tolerated her session well today. No complaints Measures - Tools Measures - Tools Plan will continue with current plan of care. Patient agrees with the plan of care and goals. Time Spent with Patient Therapeutic Exercise (min): 30 min Total Timed Units (min): 30 min Total Treatment Time (min): 30 min Functional G-code Worksheet E PLUG CUTTER OPERATOR documented in this encounter Plan of Treatment Not on filedocumented as of this encounter Visit Diagnoses Diagnosis Pain Hip Left documented in this encounter Additional Health Concerns Assessment Noted Time PHQ-9 Depression Total Score: 18 04/05/2017 2:38 PM CD T documented as of this encounter Care Teams Academic Support Specialist Relationship Specialty Start Date End Date Holley Saucedo APRN, C.N.P. PCP - General 01/27/17 12/09/17 documented as of this encounter
--- OUTSIDE RECORDS SUMMARY | 2022-04-07 13:17 | XMS_ITS | Encounter Summary ---
:1995 Author Organization [facility] Address [address] [place] [address] Care Team Providers Name Role Phone Unavailable Primary Care Provider Unavailable Encounter Details Date Type Department Care Team Description 01/03/2017 Hospital Encounter HX [facility] Francisca Arreola, POWER DISTRIBUTION ENGINEER, C.N.P. [address] [place], [place] [address] (Wo rk) Social History Tobacco Use Types [...] How often do you attend anglican or voodoo Never 10/23/2020 services? 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 Last Filed Vital Signs Vital Sign Reading Time Taken Comments Blood Pressure 120/68 01/03/2017 2:52 PM CDT Pulse 72 01/03/2017 2:52 PM CDT Temperature - - Respiratory Rate 18 01/03/2017 2:52 PM CDT Oxygen Saturation - - Inhaled Oxygen Concentration - - Weight 97.6 kg (215 lb 2.7 oz) 01/03/2017 2:52 PM CDT Height 167 cm (5' 5.75) 01/03/2017 2:52 PM CDT Body Mass Index 35 01/03/2017 2:52 PM CDT documented in this encounter Medications at Time of Discharge Medication Sig Dispensed Refills Start Date End Date albuterol (for_ACCUNEB) one unit dose qid and 0 0 12/05/2003 09/25/2018 2.5 mg /3 mL nebulizer q2hr prn solution albuterol (VENTOLIN Inhale 2 puffs See 0 01/04/20 17 08/12/2017 HFA) 90 mcg/actuation Admin Instructions. inhaler fluticasone Administer 2 sprays 0 07/18/201410/13 (for_FLONASE) 50 into affected mcg/actuation nasal nostril(s) 2 (two) spray times a day as needed. fluticasone-salmeterol Inhale 1 puff. 0 2 11/04/2017 (for_ADVAIR DISKUS) 250-50 mcg/dose diskus inhaler LEVONORGESTREL-ETHIN Take 1 tablet by mouth 0 10/201603/08/2018 ESTRADIOL (CHATEAL daily. ORAL) montelukast Take 10 mg by mouth. 0 [...] 0 06/20/2015 10/06/2017 50 mg tablet daily. venlafaxine XR (EFFEXOR Take 1 capsule by 0 01/0307/01/2017 XR) 75 mg 24 hr capsule mouth daily. documented as of this encounter Progress Notes Holley Arreola R.N. - 01/03/2017 3:25 PM CDT Clinic Full Note CHIEF COMPLAINT/REASON FOR VISIT Lab work per letter. HISTORY OF PRESENT ILLNESS Dhiraj is a very pleasant 21-year-old female who comes into the clinic today per a letter requesting a fasting glucose and lipid panel. She reports she has eaten today. She also reports she only usesas needed albuterol for symptom management related to her asthma. She reports her increased daily Effexor dose has been very helpful related to her mood. She denies any known side effects related to her prescription medications. She denies any heart palpitations, chest pain or shortness of breath. She is here today for further evaluation. She has no other concerns today. MEDICATIONS Advair Diskus 250 mcg-50 mcg inhalation powder, 1 puff(s), Inhalation, 2xDay, 3 refills Chateal 0.15 mg-30 mcg oral tablet, 1 tab(s), PO, Daily Diflucan 150 mg oral tablet, 150 mg, 1 tab(s), may repeat in 3 days if symptoms persist, PO, Once, 0 refills Effexor XR 75 mg oral capsule, extended release, 75 mg, 1 cap(s), PO, Daily, 2 refills Flonase 0.05 mg/inh nasal spray, 2 spray(s), Nasal, 2xDay, 3 refills traZODone 50 mg oral tablet, 50 mg, 1 tab(s), PO, Daily, 1 refills Ventolin HFA 90 mcg/inh inhalation aerosol, 2 puff(s), Inhalation, As Directed, PRN, 1 refills ALLERGIES Suprax (Unknown) PAST MEDICAL HISTORY Chronic Asthma NOS (493.90) Depression NOS Hypertension HTN Gestational (PIH) Delivered Historical Bleeding Vaginal Preg >22 Week Antepartum Carrier Group B Streptococcus Decreased Fetus Movement Affecting Preg Management Delivery Vaginal Normal Spontaneous () Otitis Media Acute NOS Pneumonia NOS Supervision of Normal First Vaginosis Bacterial Varicella Zoster PROCEDURES/SURGICAL HISTORY HC REMOVE TONSILS/ADENOIDS,<12 Y/O - 06/28/[birth year] (06/28/2000), DENTAL SURGERY - wisdom teeth (). SOCIAL HISTORY Date Time: 01/03/2017 15:14 Tobacco: Smoking Status: Former smoker Exposure: Care provider denies smoking in home, Other: former smoker Alcohol: Use: No Recreational Drugs: Use: None Type: No Results Found FAMILY HISTORY Grandmother (paternal):Positive: CA - Breast cancer; Diabetes mellitus Grandfather (paternal):Positive: Diabetes mellitus SYSTEMS REVIEW As per HPI. VITAL SIGNS T: 36.6 ??C (Core) HR: 72 RR: 18 BP: 120 / 68 HT: 167 cm WT: 97.6 kg BMI: 35 PHYSICAL EXAMINATION GENERAL: Alert and oriented. No acute distress. HEAD: Normocephalic/atraumatic. NECK: No nodes, no thyromegaly. HEART: Regular rate and rhythm. No murmurs, gallops or rubs noted. LUNGS: Clear to auscultation bilaterally. No expiratory wheeze. No accessory muscles of respirationnoted. ABDOMEN: Nontender to palpation. No hepato-splenomegaly. No mass. Normal bowel sounds in all 4 quadrants. EXTREMITIES: No neurovascular compromise. No cyanosis, clubbing or edema. NEUROLOGICAL: Cranial nerves II-VII grossly intact and symmetric. She ambulates with a steady gait. IMPRESSION/REPORT/PLAN Asthma NOS Her asthma control test was 21 today. She was instructed to continue as needed use of albuterol. Ordered: OV Est Pt Level 2 - 95734 - 10 min Depression Major Recurrent Mild I refilled her daily Effexor to be taken as directed. She will be due for a PHQ-9 and BO-7 screening in June of 2017. Ordered: OV Est Pt Level 2 - 61354 - 10 min Screening Lipid I cancelled her lipid panel per the new health maintenance guidelines and her inability to completethe screen today with an afternoon appointment. She verbalized agreement. A glucose was unremarkablein 2014. All questions were answered. She left in no acute distress. Orders: albuterol, 2 puff(s), Inhalation, As Directed, PRN Shortness of breath / Wheezing, # 1 each, 3 Refill(s), Maintenance, Pharmacy: [facility] venlafaxine, 75 mg = 1 cap(s), PO, Daily, # 90 cap(s), 1 Refill(s), Maintenance, Pharmacy: [facility], Please previous script 01/03/17 Electronically Signed By: HOLLEY ARREOLA CARBONIZER On: 01/03/2017 03:33 PM Source: [facility] [employer] Document Id: [id number] documented in this encounter Miscellaneous Notes Miscellaneous - Jennifer Medellin LGonzaloP.N. - 01/03/2017 3:35 PM CDT Quality Measures Quality Measures Entered On: 01/03/2017 15:36 CDT Performed On: 01/03/2017 15:35 CDT by JENNIFER MEDELLIN LPN Asthma Adult Asthma Control Test Score : 21 ED visits past yr for asthma w/o hospital stay : 0 Hospitalizations/Overnight Stays in Past yr for Asthma : 0 Asthma Action Plan Provided/Reviewed : Provided to the patient Asthma Action Plan Copy : Scanned into EMR JENNIFER MEDELLIN LPN - 01/03/2017 15:35 CDT Asthma Precipitating Factors Grid Weather/Temperature : Yes Pollen : Yes Exercise : Yes Dust Mites : Yes Pet Dander : Yes Mold : Yes JENNIFER MEDELLIN LPN - 01/03/2017 15:35 CDT [facility] Document Id: [id number] CDT!14 Miscellaneous - Holley Arreola RGonzaloN. - 01/03/2017 3:19 PM CDT Ambulatory Patient Summary [address] [id number] Visit Information Name: DHIRAJ LANDA [facility] Number: [id number] Current Date: 01/03/2017 15:19:20 Physicians Attending Provider: HOLLEY ARREOLA CARBONIZER Primary Care Provider: HOLLEY ARREOLA CARBONIZER SYEDA DHIRAJ ARMAS has been given the following list of follow-up instructions, medication list, and patient education materials: Follow-up Instructions Your Medications Here is a list of your medications. It is important to take your medications as directed. Use a pillbox or chart to help remind you to take your medications. Please let your doctor or nurse know if you have problems taking your medications. Medication/Strength How to Take Indications/Special Instructions/Comments/Notes for Patient Medication Changes/Routing albuterol (Ventolin HFA 90 mcg/inh inhalation aerosol) 2 puff(s), Inhalation, as directed as needed for Shortness of breath / Wheezing Routed to [address] [id number] fluticasone nasal (Flonase 0.05 mg/inh nasal spray) 2 Clarence(s), Nasal, two times a day levonorgestrel-ethinyl estradiol (Chateal 0.15 mg-30 mcg oral tablet) 1 Tablet(s), Oral, once a day traZODone (traZODone 50 mg oral tablet) 1 Tablet(s), Oral, once a day venlafaxine (Effexor XR 75 mg oral capsule, extended release) 1 cap, Oral, once a day Routed to [address] [address] Stop Taking the Following Medications: Medication list as of 01-03-17 15:19 Attention: If you have any medications at home that are not on this list, DO NOT take them until youcontact your provider for clarification. Give a copy of your medication list to your primary care provider. Update your medication list any time medications or doses are changed and carry your medication list at all times in case of emergency. Electronically Signed By: HOLLEY ARREOLA CARBONIZER Signed On:03-JAN-2017 15:19:15 Your Allergies & Intolerances Substance Reaction Symptoms Category Comments Suprax Unknown Drug Unknown reaction as a child Your Problem List Problem Status Onset Comments Asthma NOS (493.90) Active 05/01/12 unknown date of dx; 12/26/13 Exercise induced Hypertension HTN Gestational (PIH) Delivered Active Depression NOS Active Your Upcoming Appointments Date Time Location Provider No Appointments found Attention: Contact your local Clinic if further appointment detail needed. Consider Using Patient Online Services Patient Online [...] if you dont have one. Go to [email or web address] and click on Create Your Account. Then, follow the directions to complete the online form. Youll be asked for your [facility] number which you can find at the top of this document. Your Goals/Additional instructions: Source: [facility] [employer] Document Id: [id number] Miscellaneous - Holley Arreola R.N. - 01/03/2017 3:19 PM CDT Ambulatory Discharge Medication List [address] [id number] Visit Information Name: DHIRAJ LANDA [facility] Number: [id number] Current Date: 01/03/2017 15:19:18 Attending Provider: HOLLEY ARREOLA CARBONIZER Primary Care Provider: HOLLEY ARREOLA CARBONIZER DHIRAJ LANDA has been given the following list of medications: Your Medications It is important to take your medications as directed. Use a pill box or chart to help remind you to take your medications. Please let your doctor or nurse know if you have problems taking your medications. Medication/Strength How to Take Indications/Special Instructions/Comments/Notes for Patient Medication Changes/Routing albuterol (Ventolin HFA 90 mcg/inh inhalation aerosol) 2 puff(s), Inhalation, as directed as needed for Shortness of breath / Wheezing [facility] [address] [place] [id number] fluticasone nasal (Flonase 0.05 mg/inh nasal spray) 2 Clarence(s), Nasal, two times a day levonorgestrel-ethinyl estradiol (Chateal 0.15 mg-30 mcg oral tablet) 1 Tablet(s), Oral, once a day traZODone (traZODone 50 mg oral tablet) 1 Tablet(s), Oral, once a day venlafaxine (Effexor XR 75 mg oral capsule, extended release) 1 cap, Oral, once a day Routed to [address] [address] Stop Taking the Following Medications: Medication list as of 01-03-17 15:19 Attention: If you have any medications at home that are not on this list, DO NOT take them until youcontact your provider for clarification. Give a copy of your medication list to your primary care provider. Update your medication list any time medications or doses are changed and carry your medication list at all times in case of emergency. Electronically Signed By: HOLLEY ARREOLA CARBONIZER Signed On:03-JAN-2017 15:19:15 Additional Information: Source: [facility] [employer] Document Id: [id number] Miscellaneous - Jennifer Medellin LGonzaloP.N. - 01/03/2017 3:14 PM CDT Health Assessment Health Assessment Entered On: 01/03/2017 15:15 CDT Performed On: 01/03/2017 15:14 CDT by JENNIFER MEDELLIN LPN Health Assessment Complete Health Assessment Complete or Modified : Annual Health Assessment Annual Health Assessment Completed : Yes JENNIFER MEDELLIN LPN - 01/03/2017 15:14 CDT Nutrition Nutrition Risk Factors by History Adult : None JENNIFER MEDELLIN LPN - 01/03/2017 15:14 CDT Functional Current Daily Living Assistance : None JENNIFER MEDELLIN LPN - 01/03/2017 15:14 CDT Dependent Habits Exposure to Tobacco Smoke : Care provider denies smoking in home, Other: former smoker Smoking Status : Former smoker Tobacco 2A : Yes Tobacco Use/Currently Using : No Tobacco Use/Last 30 Days : No Tobacco Use/Last 12 months : No Tobacco Last Use/Month : July Tobacco Last Use/Year : 2015 Alcohol Use : No JENNIFER MEDELLIN LPN - 01/03/2017 15:14 CDT Caffeine Use Grid Caffeine Use : Current Type : Soft drinks Frequency : Occasionally JENNIFER MEDELLIN LPN - 01/03/2017 15:14 CDT Recreational Drug Use Grid Drug Use : None JENNIFER MEDELLIN LPN - 01/03/2017 15:14 CDT Psychosocial Domestic Abuse Concerns : None Behavioral Health Screen/Safety Assmt : No Protestant Preference : JENNIFER Jamison LPN - 01/03/2017 15:14 CDT Advance Directive Advanced Directives : No Advance Directive Additional Information : No JENNIFER MEDELLIN LPN - 01/03/2017 15:14 CDT Educ Needs Learning Style Preference Adult Grid Patient : None Family : None JENNIFER MEDELLIN LPN - 01/03/2017 15:14 CDT Source: [facility] [employer] Document Id: [id number] CDT!37 Miscellaneous - Jennifer Medellin L.P.N. - 01/03/2017 2:52 PM CDT Adult Medical Management Specialist Intake/History Adult Medical Management Specialist Intake/History Entered On: 01/03/2017 14:55 CDT Performed On: 01/03/2017 14:52 CDT by JENNIFER MEDELLIN LPN Intake Chief Complaint : Annual check and med refill Temperature Core : 36.6 DegC(Converted to: 97.9 DegF) Peripheral Pulse Rate : 72 /min Respiratory Rate : 18 /min Heart Rhythm : Regular Systolic Blood Pressure : 120 mmHg Diastolic Blood Pressure : 68 mmHg NIBP Mean : 85 mmHg BP Location : Left upper extremity Blood Pressure Cuff Size : Large Height : 167 cm(Converted to: 5 ft 6 inch(es), 66 inch(es)) Actual Weight : 97.6 kg(Converted to: 215 lb 3 oz) Weight Source : Standing scale Dosing Weight Clinic : 97.6 kg Clinic BSA : 2.13 Body Mass Index : 35 kg/m2 JENNIFER MEDELLIN LPN - 01/03/2017 14:52 CDT General Info Information Given By : Patient Languages : Mongolian Is Patient Female and 13-50 no hysterectomy : Yes Status : Patient denies Are you ? : No JENNIFER MEDELLIN LPN - 01/03/2017 14:52 CDT Subjective Pain Symptoms : No JENNIFER MEDELLIN LPN - 01/03/2017 14:52 CDT Dependent Habits Exposure to Tobacco Smoke : Care provider denies smoking in home, Other: former smoker Smoking Status : Former smoker Tobacco 2A : Yes Tobacco Use/Currently Using : No Tobacco Use/Last 30 Days : No Tobacco Use/Last 12 months : No Tobacco Last Use/Month : July Tobacco Last Use/Year : 2015 JENNIFER MEDELLIN LPN 01/03/2017 14:52 CDT Caffeine Use Grid Caffeine Use : Current Type : Soft drinks Frequency : Occasionally JENNIFER MEDELLIN LPN - 01/03/2017 14:52 CDT Recreational Drug Use Grid Drug Use : None JENNIFER MEDELLIN LPN 01/03/2017 14:52 CDT Source: [facility] [employer] Document Id: [id number] CDT!43 documented in this encounter Plan of Treatment Not on filedocumented as of this encounter Visit Diagnoses Not on filedocumented in this encounter Additional Health Concerns Assessment Noted Time PHQ-9 Depression Total Score: 14 11/16/2016 2:30 PM CD T documented as of this encounter
--- OUTSIDE RECORDS SUMMARY | 2022-04-07 13:17 | XMS_ITS | Encounter Summary ---
:1995 Author Organization [facility] Address [address] [place] [address] Care Team Providers Name Role Phone Holley Saucedo APRN, C.N.P. Primary Care Provider [phone] Encounter Details Date Type Department Care Team Description 08/30/2017 Nurse Triage Department of [facility], Kamla Baker , Medicine, [facility], R.N. in [place], [place] [address] [address] Social History Tobacco Use Types Packs/Day Years [...] How often do you attend protestant or adventism Never 10/23/2020 services? 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 PCP - General 01/27/17 12/09/17 documented as of this encounter
--- OUTSIDE RECORDS SUMMARY | 2022-04-07 13:17 | XMS_ITS | Encounter Summary ---
:1995 Author Organization [facility] Address [address] [place] [address] Care Team Providers Name Role Phone Holley Saucedo APRN, C.N.P. Primary Care Provider [phone] Reason for Visit Physical Therapy (Routine) - Canceled Specialty Diagnoses / Procedures Referred By Contact Refer red To Contact Diagnoses Pain Hip Left Holley Saucedo APRN, [facility] Region Procedures PT Ongoing treatment C.N.P. [address] [place] [address] Referral ID Status Reason Start Date Expiration Date Visits V isits Requested Authorized [id number] Canceled 06/13/2017 12/10/2017 12 99 Encounter Details Date Type Department Care Team Description 08/02/2017 Clinical Support Department of [place] Saucedo APRN, C.N.P. [address] [place] [address] Pain Hip Left Rehabilitation Services Vandana Au, P.T. in [address] [phone] Social History Tobacco Use Types Packs/Day Years [...] How often do you attend adventism or jain Never 10/23/2020 services? 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 - 08/02/2017 9:30 AM CST Physical Therapy Outpatient Treatment Note SUBJECTIVE Visit Count since Last G-Code: 5 Episode Visit Count: 5 Visit Diagnosis: #1 Pain Hip Left Referring Provider: Kenzie Armstrong* Subjective: Patient had been doing really well with her self mobilizations, stretching and strengthening. However then after a few days of work and repetitive squatting she continued to have increased discomfort in the left hip. She reports that the snapping had been stopping for some time but it has i ncreased again. She continues to have her boyfriend to the long axis distraction and she is compliant with her exercises at home. OBJECTIVE Today again we did hip scour test and this was positive for pain and reproduction of symptoms. We discussed that at this point in time there be minimal that we could do to further her along if she continues to have significant discomfort with squatting. Discussed that it may be beneficial for her to have further imaging done such as an MRI to rule out any labral pathology in the hip itself versus the anterior hip impingement. In standing we assess her overall posture again due to soft tissue around the pelvis it is fully hard to assess overall alignment in the pelvis. In standing however her right knee does look lower than the left. We did trial doing a small shoe lift in the right side for her to wean into to help take some pressure off the left leg is longer. She was able to tolerate this in her session. When she walks she felt that the snapping was less significant. Discussed that she should give this shoe lift a trial for weeks time to see if it helps to reduce any forces through the opposite side. If she continues to have discomfort while she is compliant with her exercises in the shoe lift then referral to orthopedics would be appropriate. Patient did consent to this. Patient is to follow up with physical therapist in 1 week's time. Assessment Clinical Impression Patient was doing well but has had an increase in her symptoms lately with increased work. Plan will wait for phone call in 1 week's time and then referred to orthopedics if necessary. Time Spent with Patient Therapeutic Exercise (min): 20 min Total Timed Units (min): 20 min Total Treatment Time (min): 20 min Functional G-code Worksheet Vandana Doherty P.T. - 08/02/2017 9:30 AM CST Patient called follow-up regarding how she is doing with the shoe lift. She reports that it has helped the snapping to be less. However she feels sort of uneven. She is educated she can discontinue using the shoe lift has not decreased snapping and hip pain. At this point in time we will refer back for further imaging or a referral to Orthopedics. Vandana Doherty PDyana. - 08/02/2017 9:30 AM CST DISCHARGE SUMMARY Patient was initially evaluated on 06/13/2017. She was progressed to 7 visits overall. As of her last session on 08/02/2017, patient was put on hold for a week and she was to call and follow up with in1 week's time. Patient did not do this. Patient has not been heard from since. Unable to assess if patient was able to fully meet her physical therapy goals. At this point time patient is discharged from outpatient physical therapy. She does have the physical therapist assistance card for any questions, concerns or future need of therapy. 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 PCP - General 01/27/17 12/09/17 documented as of this encounter
--- OUTSIDE RECORDS SUMMARY | 2022-04-07 13:17 | XMS_ITS | Encounter Summary ---
:[address] [facility] Address [address] [place] [address] Care Team Providers Name Role Phone Unavailable Primary Care Provider Unavailable Encounter Details Date Type Department Care Team Description 08/23/2016 Hospital Encounter HX [facility] [place] Francisca Arreola, PIN DRAFTER OPERATOR, C.N.P. [address] [place], [place] [address] (Wo rk) Social History [...] 10/23/2020 relatives? How often do you attend hinduism or religion Never 10/23/2020 services? 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 documented as of this encounter Progress Notes Holley Arreola R.N. - 08/23/2016 10:21 AM CST Clinic Full Note CHIEF COMPLAINT/REASON FOR VISIT Sinus congestion. Sore throat. Ear pain. HISTORY OF PRESENT ILLNESS Carly is a very pleasant 21-year-old male who comes into the clinic today with concerns related to sinus congestion, left ear pain and a sore throat for approximately 11-12 days. She [facility] related to her current symptoms. She was given aprescription for daily Augmentin to fill only if her symptoms did not resolve. She is here today reporting her symptoms have not improved, but wanted to verify the appropriate use of the Augmentin prescription. She reports greenish nasal drainage with an intermittent sore throat. She denies any known fevers. She denies any cough or abdominal pain. She denies any heart palpitations, chest pain or shortness of breath. She is here today for further evaluation. She has no other concerns today. MEDICATIONS Advair Diskus 250 mcg-50 mcg inhalation powder, 1 puff(s), Inhalation, 2xDay, 3 refills Effexor XR 37.5 mg oral capsule, extended release, 37.5 mg, 1 cap(s), PO, Daily, 2 refills Flonase 0.05 mg/inh nasal spray, 2 spray(s), Nasal, 2xDay, 3 refills Misc Prescription, control patch traZODone 50 mg oral tablet, 50 mg, [...] wisdom teeth (). SOCIAL HISTORY Date Time: 08/23/2016 09:51 Tobacco: Smoking Status: Former smoker Exposure: Care provider denies smoking in home, Other: former smoker Alcohol: Use: No Results Found Recreational Drugs: Use: None Type: No Results Found FAMILY HISTORY Grandmother (paternal):Positive: CA - Breast cancer; Diabetes mellitus Grandfather (paternal):Positive: Diabetes mellitus SYSTEMS REVIEW As per HPI. VITAL SIGNS T: 36.8 ??C (Core) HR: 76 RR: 16 BP: 106 / 66 SpO2: 100% HT: 167 cm PHYSICAL EXAMINATION GENERAL: Alert and oriented. No acute distress. HEAD: Normocephalic/atraumatic. Ears: Right TM unremarkable. Left TM with scant amount of serous fluid appreciable posterior to TM. Oropharynx without lesion of mucosa. Pharyngeal rises symmetrically without exudate. Sinus: Bilateral frontal and maxillary sinuses with mild tenderness to palpation. NECK: No nodes, no thyromegaly. HEART: Regular rate and rhythm. No murmurs, gallops or rubs noted. LUNGS: Clear to auscultation bilaterally. No expiratory wheeze. No accessory muscles of respirationnoted. EXTREMITIES: No neurovascular compromise. No cyanosis, clubbing or edema. NEUROLOGICAL: Cranial nerves II-VII grossly intact and symmetric. She ambulates with a steady gait. IMPRESSION/REPORT/PLAN Congestion Sinus She was instructed to fill her Augmentin prescription and take as directed for 7 days. She was instructed to increase her non caffeine oral fluid intake and maintain adequate rest. Ordered: OV Est Pt Level 3 - 37709 - 15 min Pain Ear L See #1. Ordered: OV Est Pt Level 3 - 19602 - 15 min Sore Throat (ST) NOS See #1. All questions were answered. She left in no acute distress. Ordered: OV Est Pt Level 3 - 45106 - 15 min Electronically Signed By: HOLLEY ARREOLA AUTOMOBILE RENTAL CLERK On: 08/23/2016 10:33 AM Source: [facility] POWERCHART Document Id: [id number] EL BUNG REMOVER AND DUMPER documented in this encounter Miscellaneous Notes Telephone Encounter - Conversion, Historical Provider Ser - 08/30/2016 10:05 AM CST *Phone Message Document Contains Addenda Addendum by TATI VOGT LPN on August 30, 2016 15:18:12 BARREL BUNG REMOVER AND DUMPER Patient aware of the below information. Addendum by HOLLEY ARREOLA AUTOMOBILE RENTAL CLERK on August 30, 2016 14:54:25 BARREL BUNG REMOVER AND DUMPER From: HOLLEY ARREOLA AUTOMOBILE RENTAL CLERK To: [facility] Medicine Nurse [place]; Sent: 08/30/2016 14:54:25 BARREL BUNG REMOVER AND DUMPER Subject: RE: *Phone Message I refilled script of Augmentin for twice daily for 3 more days. Thanks! Addendum by TATI VOGT LPN on August 30, 2016 13:27:40 BARREL BUNG REMOVER AND DUMPER From: TATI VOGT LPN ([facility] Nurse [place]) To: HOLLEY ARREOLA NP; Sent: 08/30/2016 13:27:40 BARREL BUNG REMOVER AND DUMPER Subject: FW: *Phone Message Addendum by TATI VOGT LPN on August 30, 2016 13:27:30 BARREL BUNG REMOVER AND DUMPER Forwarded to Holley. From: TRENT BRICENO ([facility] [employer]) To: [facility] Nurse [place]; Sent: 08/30/2016 10:05:18 BARREL BUNG REMOVER AND DUMPER Subject: *Phone Message Caller is: ( x ) Patient ( ) Mother ( ) Father ( ) Spouse ( ) Daughter ( ) Son ( ) Pharmacy ( ) Other: Physician: Holley Arreola Patient MRN #: Reason for Call: patient called she needs 3 more days of antibiotics, ( amoxicyllian) route to [facility] patient has stated she was supposed to call if she needed 3 more days. Message: Advice/Action: Source used: ( ) Verbalizes understanding of instructions ( ) Instructed to call back if symptoms worsen or do not resolve ( ) Refused to see provider ( ) Appointment Scheduled ( ) OK to leave message on voice mail ( ) Patient told to expect return call: ( ) today ( ) tomorrow ( ) next work day ( ) Patient's email ( ) Patient told physician out of office, will call upon return call on ( ) ( ) Patient told physician out of office, routed to other physician ( ) Other ( ) Call back telephone number ( ) Call back cell phone number ( ) Source: [facility] SocialGlimpz Document Id: [id number] Miscellaneous - Vinnie Lyman L.P.N. - 08/23/2016 9:51 AM CST Adult Boiler Maker Intake/History Adult Boiler Maker Intake/History Entered On: 08/23/2016 9:55 BARREL BUNG REMOVER AND DUMPER Performed On: 08/23/2016 9:51 BARREL BUNG REMOVER AND DUMPER by VINNIE LYMAN LPN Intake Chief Complaint : Congestion/cold. Plugged right ear sore throat and headache. Onset of Symptoms : 11 days Temperature Core : 36.8 DegC(Converted to: 98.2 DegF) Peripheral Pulse Rate : 76 /min Respiratory Rate : 16 /min Heart Rhythm : Regular Systolic Blood Pressure : 106 mmHg Diastolic Blood Pressure : 66 mmHg NIBP Mean : 79 mmHg BP Location : Left upper extremity Blood Pressure Cuff Size : Large SpO2 : 100 % Oxygen Therapy : Room air Height : 167 cm(Converted to: 5 ft 6 inch(es), 66 inch(es)) VINNIE LYMAN LPN - 08/23/2016 9:51 BARREL BUNG REMOVER AND DUMPER General Info Languages : Portuguese Is Patient Female and 13-50 no hysterectomy : Yes Status : Patient denies Are you ? : No VINNIE LYMAN LPN - 08/23/2016 9:51 BARREL BUNG REMOVER AND DUMPER Subjective Pain Symptoms : Yes VINNIE LYMAN LPN - 08/23/2016 9:51 BARREL BUNG REMOVER AND DUMPER Pain Scale Pain Scale Verbal 0-10 : Open VINNIE LYMAN LPN - 08/23/2016 9:51 BARREL BUNG REMOVER AND DUMPER Pain Pain Assessment Grid Pain 1 Pain 2 Location : Head Throat Laterality : Bilateral Bilateral Intensity : 6 6 VINNIE LYMAN LPN - 08/23/2016 9:51 BARREL BUNG REMOVER AND DUMPER VINNIE LYMAN LPN - 08/23/2016 9:51 BARREL BUNG REMOVER AND DUMPER Dependent Habits Exposure to Tobacco Smoke : Care provider denies smoking in home, Other: former smoker Smoking Status : Former smoker Tobacco 2A : Yes Tobacco Use/Currently Using : No Tobacco Use/Last 30 Days : No Tobacco Use/Last 12 months : No VINNIE LYMAN LPN - 08/23/2016 9:51 BARREL BUNG REMOVER AND DUMPER Caffeine Use Grid Caffeine Use : Current Type : Soft drinks Frequency : Occasionally VINNIE LYMAN LPN - 08/23/2016 9:51 BARREL BUNG REMOVER AND DUMPER Recreational Drug Use Grid Drug Use : None VINNIE LYMAN LPN 08/23/2016 9:51 BARREL BUNG REMOVER AND DUMPER Source: [facility] POWERCHART Document Id: [id number] BARREL BUNG REMOVER AND DUMPER!50 EL BUNG REMOVER AND DUMPER documented in this encounter Plan of Treatment Not on filedocumented as of this encounter Visit Diagnoses Not on filedocumented in this encounter
--- OUTSIDE RECORDS SUMMARY | 2022-04-07 13:17 | XMS_ITS | Encounter Summary ---
:1995 Author Organization [facility] Address [address] [place] [address] Care Team Providers Name Role Phone Holley Saucedo APRN, C.N.P. Primary Care Provider [phone] Encounter Details Date Type Department Care Team Description 05/28/2017 Abstract Department of Family Medicine in [place], [place] [address] [place], [place] [phone] Social History Tobacco Use Types Packs/Day Years [...] How often do you attend holiness or jehovah's witness Never 10/23/2020 services? 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 PCP - General 01/27/17 12/09/17 documented as of this encounter
--- OUTSIDE RECORDS SUMMARY | 2022-04-07 13:17 | XMS_ITS | Encounter Summary ---
:1995 Author Organization [facility] Address [address] [place] [address] Care Team Providers Name Role Phone Unavailable Primary Care Provider Unavailable Encounter Details Date Type Department Care Team Description 12/11/2016 Hospital Encounter HX [facility] [place] Kerry López M.D. [address] [place], [place] [address] (Wo rk) Social History Tobacco Use Types [...] 10/23/2020 relatives? How often do you attend shinto or cheondoism Never 10/23/2020 services? 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 - 12/11/2016 10:44 AM CDT Clinic Full Note CHIEF COMPLAINT/REASON FOR VISIT sore throat HISTORY OF PRESENT ILLNESS Patient is a 21 year old female who presents today with worsening sore throat in past one week. Boyfriend with strep last week. No fever or chills. No ear pain or cough. MEDICATIONS Advair Diskus 250 mcg-50 mcg inhalation [...] wisdom teeth (). SOCIAL HISTORY Date Time: 12/11/2016 10:05 Tobacco: Smoking Status: Former smoker Exposure: Care provider denies smoking in home, Other: former smoker Alcohol: Use: No Results Found Recreational Drugs: Use: None Type: No Results Found FAMILY HISTORY Grandmother (paternal):Positive: CA - Breast cancer; Diabetes mellitus Grandfather (paternal):Positive: Diabetes mellitus SYSTEMS REVIEW General: No acute distress. No fever, chills. HEENT: Denies headaches, no eye pain, no ear pain. No runny nose. + sore throat. No cervical LAD. Neck: Denies neck pain, no thyromegaly Lungs: Denies cough, SOB CV: Denies chest pain Abdomen: Denies abdominal pain, no change in bowel habits : Denies dysuria Ext: Denies edema Psych: Denies change in mood VITAL SIGNS T: 36.9 ??C (Core) HR: 68 RR: 20 BP: 100 / 66 HT: 167 cm WT: 97.0 kg BMI: 34.78 PHYSICAL EXAMINATION General: Patient is alert, in no acute distress. Well-groomed. HEENT: NC/AT, PERRL, EOMI, TMs clear, external canals patent, oropharynx moist, no exudate, ++erythema. NECK: supple, no LAD, no thyromegaly. LUNGS: CTA bilaterally, no rhonchi, wheezes or rales. CV: RRR, no murmurs, rubs or gallops. ABDOMEN: NT/ND, +BS, no masses. EXTREMITIES: No clubbing, no cyanosis, no edema. PSYCH: Normal mood and affect. LAB RESULTS RST + IMPRESSION/REPORT/PLAN Pharyngitis (Ph) Streptococcal Prescribed Pen VK 500mg po bid x 10 days. Increase fluids. 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 FU if no change or worsening symptoms prn. Ordered: OV Est Pt Level 3 - 27994 - 15 min Orders: penicillin V potassium, 500 mg = 1 tab(s), PO, 2xDay, x 10 day(s), # 20 tab(s), 0 Refill(s), Acute,Pharmacy: [facility] Electronically Signed By: CARLEE LÓPEZ MD On: 12/11/2016 10:48 AM Source: [facility] POWERCHART Document Id: [id number] documented in this encounter Miscellaneous Notes Miscellaneous - Carlee López M.D. - 12/11/2016 10:48 AM CDT Ambulatory Patient Summary [address] [place] [id number] Visit Information Name: DHIRAJ LANDA [facility] Number: [id number] Current Date: 12/11/2016 10:48:48 Physicians Attending Provider: CARLEE LÓPEZ MD Primary Care Provider: AMANDA ARREOLA ICE CREAM VAN VENDOR DHIRAJ LANDA has been given the following [...] needed for Shortness of breath / Wheezing fluconazole (Diflucan 150 mg oral tablet) 1 Tablet(s), Oral, once may repeat in 3 days if symptoms persist fluticasone nasal (Flonase 0.05 mg/inh nasal spray) 2 [place](s), Nasal, two times a day fluticasone-salmeterol (Advair Diskus 250 mcg-50 mcg inhalation powder) 1 puff(s), Inhalation, two times a day levonorgestrel-ethinyl estradiol (Chateal 0.15 mg-30 mcg oral tablet) 1 Tablet(s), Oral, once a day penicillin V potassium (penicillin V potassium 500 mg oral tablet) 1 Tablet(s), Oral, two times a day x 10 day(s) New Routed to [address] [place] [address] traZODone (traZODone 50 mg oral tablet) 1 Tablet(s), Oral, once a day venlafaxine (Effexor XR 75 mg oral capsule, extended release) 1 cap, Oral, once a day Stop Taking the Following Medications: Medication list as of 12-11-16 10:48 Attention: If you have any medications at home that are not on this list, DO NOT take them until youcontact your provider for clarification. Give a copy of your medication list to your primary care provider. Update your medication list any time medications or doses are changed and carry your medication list at all times in case of emergency. Electronically Signed By: CARLEE LÓPEZ MD Signed On:11-DEC-2016 10:48:45 Your Allergies & Intolerances Substance Reaction Symptoms [...] if you dont have one. Go to [email or web address] and click on Create Your Account. Then, follow the directions to complete the online form. Youll be asked for your [facility] number which you can find at the top of this document. Your Goals/Additional instructions: Source: [facility] POWERCHART Document Id: [id number] Miscellaneous - Carlee López M.D. - 12/11/2016 10:48 AM CDT Ambulatory Discharge Medication List [address] [id number] Visit Information Name: RAYMONDDHIRAJ WRIGHTE [facility] Number: [id number] Current Date: 12/11/2016 10:48:47 Attending Provider: CARLEE LÓPEZ MD Primary Care Provider: AMANDA ARREOLA ICE CREAM VAN VENDOR SYEDADHIRAJ PAWEL has been given the following list of [...] needed for Shortness of breath / Wheezing fluconazole (Diflucan 150 mg oral tablet) 1 Tablet(s), Oral, once may repeat in 3 days if symptoms persist fluticasone nasal (Flonase 0.05 mg/inh nasal spray) 2 [place](s), Nasal, two times a day fluticasone-salmeterol (Advair Diskus 250 mcg-50 mcg inhalation powder) 1 puff(s), Inhalation, two times a day levonorgestrel-ethinyl estradiol (Chateal 0.15 mg-30 mcg oral tablet) 1 Tablet(s), Oral, once a day penicillin V potassium (penicillin V potassium 500 mg oral tablet) 1 Tablet(s), Oral, two times a day x 10 day(s) New Routed to [address] [address] traZODone (traZODone 50 mg oral tablet) 1 Tablet(s), Oral, once a day venlafaxine (Effexor XR 75 mg oral capsule, extended release) 1 cap, Oral, once a day Stop Taking the Following Medications: Medication list as of 12-11-16 10:48 Attention: If you have any medications at home that are not on this list, DO NOT take them until youcontact your provider for clarification. Give a copy of your medication list to your primary care provider. Update your medication list any time medications or doses are changed and carry your medication list at all times in case of emergency. Electronically Signed By: CARLEE LÓPEZ MD Signed On:11-DEC-2016 10:48:45 Additional Information: Source: [facility] POWERCHART Document Id: [id number] Miscellaneous - Carlee López M.D. - 12/11/2016 10:44 AM CDT Work Excuse December 11, 2016 DHIRAJ LANDA [address] [place] [address] Dear DHIRAJ ANDRADEKYLE, You were examined in my office on: 12-11-2016 Reason for work excuse: Medical Illness ( _x ) Yes ( _ ) No Injury ( _ ) Yes ( _ ) No Is excused from all work: ( x_ ) Yes ( _ ) No Has work limitations: ( _ ) Yes ( _ ) No As follows: _ Limitations apply until: _ Follow-Up Appointment : ( _ ) Return to Work date: 12-13-2016 Notes: _ Sincerely, CARLEE LÓPEZ [id number] [place] [address] Electronic Signature Electronically Signed By: CARLEE LÓPEZ MD On: December 11, 2016 This document has images extracted. Source: [facility] bMenuCHART Document Id: [id number] Miscellaneous - Janet Ramon, L.P.N. - 12/11/2016 10:05 AM CDT Adult Skin Tanner Intake/History Adult Skin Tanner Intake/History Entered On: 12/11/2016 10:07 CDT Performed On: 12/11/2016 10:05 CDT by JANET RAMON LPN Intake Temperature Core : 36.9 DegC(Converted to: 98.4 DegF) Peripheral Pulse Rate : 68 /min Respiratory Rate : 20 /min Heart Rhythm : Regular Systolic Blood Pressure : 100 mmHg Diastolic Blood Pressure : 66 mmHg NIBP Mean : 77 mmHg BP Location : Left upper extremity Blood Pressure Cuff Size : Large Height : 167 cm(Converted to: 5 ft 6 inch(es), 66 inch(es)) Actual Weight : 97.0 kg(Converted to: 213 lb 14 oz) Dosing Weight Clinic : 97 kg Clinic BSA : 2.12 Body Mass Index : 34.78 kg/m2 JANET RAMON LPN - 12/11/2016 10:05 CDT General Info Languages : Hebrew Is Patient Female and 13-50 no hysterectomy : Yes Status : Patient denies Are you ? : No RADHAPOOJAJACKWero Emerson [facility] - 12/11/2016 10:05 CDT Subjective Pain Symptoms : Yes JANET RAMON Ki [facility] - 12/11/2016 10:05 CDT Pain Scale Pain Scale Verbal 0-10 : Open JANET RAMON Ki [facility] - 12/11/2016 10:05 CDT Pain Pain Assessment Grid Pain 1 Location : Throat JACK RAMONWero Emerson [facility] - 12/11/2016 10:05 CDT Dependent Habits Exposure to Tobacco Smoke : Care provider denies smoking in home, Other: former smoker Smoking Status : Former smoker Tobacco 2A : Yes Tobacco Use/Currently Using : No Tobacco Use/Last 30 Days : No Tobacco Use/Last 12 months : No Tobacco Last Use/Month : July Tobacco Last Use/Year : 2015 MARJ RAMONSAMANTHA Emerson [facility] - 12/11/2016 10:05 CDT Caffeine Use Grid Caffeine Use : Current Type : Soft drinks Frequency : Occasionally JANET RAMON [facility] - 12/11/2016 10:05 CDT Recreational Drug Use Grid Drug Use : None RADHAPOOJAMARJJANET D [facility] - 12/11/2016 10:05 CDT Source: [facility] bMenuCHART Document Id: [id number] CDT!46 documented in this encounter Plan of Treatment Not on filedocumented as of this encounter Procedures Procedure Name Priority Date/Time Associated Diagnosis Comme nts RAPID STREP A Routine 12/11/2016 10:11 AM Results for this SCREEN CDT procedure are i n the results section. documented in this encounter Results (ABNORMAL) Rapid Strep A Screen (12/11/2016 10:11 AM CDT) [facility] Method Time Signature HXStrep A (POSITIVE) POWERCHART Screen Rapid HXFinal Positive for POWERCHART Group A Strep by rapid screen. Specimen (Source) Anatomical Collection Method Collection Time Re ceived Time Location / / Volume Laterality Throat 12/11/2016 10:11 AM CDT Carlee López M.D. LAB MICROBIOLOGY - GENERAL O RDERABLES Performing Organization Address City/State/ZIP Code Phon e Number POWERCHART documented in this encounter Visit Diagnoses Not on filedocumented in this encounter Additional Health Concerns Assessment Noted Time PHQ-9 Depression Total Score: 14 11/16/2016 2:30 PM CD T documented as of this encounter
--- OUTSIDE RECORDS SUMMARY | 2022-04-07 13:17 | XMS_ITS | Encounter Summary ---
:1995 Author Organization [facility] Address [address] [place] [address] Care Team Providers Name Role Phone Holley Saucedo APRN C.N.P. Primary Care Provider [phone] Reason for Visit Reason Comments Communication Encounter Details Date Type Department Care Team Description 08/16/2017 Clinical Communication Department of [facility] in Vandana Baker P.T. [address] [phone] Social History Tobacco Use Types Packs/Day Years [...] How often do you attend bahai or bahai Never 10/23/2020 services? 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 - 08/16/2017 2:58 PM LEAD MANUFACTURING ENGINEERING TECH Holley, We have worked in PT to address L hip pain/snapping. It has gotten better but still continues to be very limiting for the patient. I think either a referral to orthopedics or an MRI of the hip/pelvis would be appropriate. PT will be on hold. Thank you, Vandana MANUFACTURING ENGINEERING TECH documented in this encounter Plan of Treatment Not on filedocumented as of this encounter Visit Diagnoses Not on filedocumented in this encounter Additional Health Concerns Assessment Noted Time PHQ-9 Depression Total Score: 17 07/12/2017 10:[address] documented as of this encounter Care Teams Burial Vault Maker Relationship Specialty Start Date End Date Holley Saucedo, SPECIAL INSPECTOR, C.N.P. PCP - General 01/27/17 12/09/17 documented as of this encounter
--- OUTSIDE RECORDS SUMMARY | 2022-04-07 13:17 | XMS_ITS | Encounter Summary ---
:1995 Author Organization [facility] Address [address] [place] [address] Care Team Providers Name Role Phone Holley Saucedo APRN, C.N.P. Primary Care Provider [phone] Reason for Referral Behavioral Health (Routine) - Closed Specialty Diagnoses / Procedures Referred By Contact Refer red To Contact Psychiatry / Psychiatry Diagnoses Notes for Emmanuel Garibay: Fam Med IBH Psych New Patient;Hx of depression/anxiety/increased mood swings/anger concerns Holley Saucedo, [facility] and Psychology Procedures Office Visit [facility] C.N.P. [address] [place] [address] Referral ID Status Reason Start Date Expiration Date Visits Requ ested Visits Authorized [id number] Closed 05/27/2017 07/15/2017 1 1 Encounter Details Date Type Department Care Team Description 05/27/2017 Orders Only Department of [facility] Holley Saucedo, Medicine, [place] [facility], C.N .P. Clinic, in [place], [address] [place] [id number] [place] [address] [place], [place] [address] [phone] Social History Tobacco Use Types Packs/Day Years [...] 10/23/2020 relatives? How often do you attend congregational or taoist Never 10/23/2020 services? 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 documented as of this encounter Plan of Treatment Scheduled Referrals Name Type Priority Associated Order Schedule Diagnoses Psychiatry and Outpatient Referral Routine Expect ed: Psychology - 07/01/2017 Integrated (Approximate), behavioral health Expires: consult (clinic) 07/05/2022 documented as of this encounter Visit Diagnoses Not on filedocumented in this encounter Additional Health Concerns Assessment Noted Time PHQ-9 Depression Total Score: 18 04/05/2017 2:38 PM CD T documented as of this encounter Care Teams Immigration Law Specialist Relationship Specialty Start Date End Date Holley Saucedo APRN, C.N.P. PCP - General 01/27/17 12/09/17 documented as of this encounter
--- OUTSIDE RECORDS SUMMARY | 2022-04-07 13:17 | XMS_ITS | Encounter Summary ---
:1995 Author Organization [facility] Address [address] [place] [address] Care Team Providers Name Role Phone Holley Saucedo APRN, C.N.P. Primary Care Provider [phone] Reason for Visit Reason Comments Other toothache since Tuesday Encounter Details Date Type Department Care Team Description 08/31/2017 Office Visit Department of Family Chandni Urbina, [place] uralgia Trigeminal (Primary Dx); Medicine, [place] [facility], C.N.P., Bipo lar II Disorder (HCC) Clinic, in [place] [address] [phone] Social History Tobacco Use Types Packs/Day Years [...] How often do you attend temple or congregational Never 10/23/2020 services? 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 documented as of this encounter Last Filed Vital Signs Vital Sign Reading Time Taken Comments Blood Pressure 92/52 08/31/2017 4:59 PM SAS PROGRAMMER ANALYST Pulse 82 08/31/2017 4:59 PM SAS PROGRAMMER ANALYST Temperature 36.8 ??C (98.2 ??F) 08/31/2017 4:59 PM SAS PROGRAMMER ANALYST Respiratory Rate 20 08/31/2017 4:59 PM SAS PROGRAMMER ANALYST Oxygen Saturation - - Inhaled Oxygen Concentration - - Weight 103 kg (227 lb 8.2 oz) 08/31/2017 4:59 PM SAS PROGRAMMER ANALYST Height 167.6 cm (5' 6) 08/31/2017 4:59 PM SAS PROGRAMMER ANALYST Body Mass Index 36.72 08/31/2017 4:59 PM SAS PROGRAMMER ANALYST documented in this encounter Patient Instructions Patient InstructionsChandni Urbina APRN, D.N.P., C.N.P. - 08/31/2017 5:00 PM CST Gabapentin: Take one dose tonight (300mg), then tomorrow 300mg twice/day for 3 days, then 300mg three times a day until pain goes away Medrol Dose Pack: Instructions as prescribed on the package PROGRAMMER ANALYST documented in this encounter Progress Notes Chandni Urbina APRN, D.N.P., C.N.P. - 08/31/2017 5:00 PM CST CHIEF COMPLAINT / REASON FOR VISIT Carly Joseph is a 22 y.o. female who presents for evaluation of Other (toothache since Tuesday). HISTORY OF PRESENT ILLNESS Carly is a pleasant 22-year-old female, with a history of asthma, Bipolar disorder, that presents to the clinic today for evaluation of left-sided face pain for the past 4 days. She reports her pain is greatest along her LEFT jawline and radiates to her LEFT ear. She reports that she has barely eaten since Tuesday due to the increased pain. She has tried alternating ibuprofen and Tylenol with moderate relief in symptoms. She describes her discomfort as ???stabbing and sharp.?? She does visit thethe dentist regularly and denies any teeth concerns. She has not seen a dentist for this, however, as she is changed insurance companies and her current dentist is no longer covered. She denies any fevers or chills. No neurological deficits - one sided weakness, headaches, facial drooping, drooling, slurred speech. Brief Review of Systems: A brief review [...] Take 1 tablet by mouth daily. ??? azithromycin (for_ZITHROMAX) 250 mg tablet Take 2 tablets the first day, then 1 tablet daily for4 days. (Patient not taking: Reported on 08/31/2017 ) ??? gabapentin (for_NEURONTIN) 300 mg capsule Take 1 capsule (300 mg total) by mouth 3 (three) timesa day. Start with 300mg at bedtime, then 300mg BID for 3 days, then 300mg TID ??? methylPREDNISolone (for_MEDROL DOSEPACK) 4 mg tablet follow package directions ??? montelukast (for_SINGULAIR) 10 mg tablet Take 10 mg by mouth. ??? prenat.vits,hernandez,acp-gaya-xflpe ( VITAMIN) tablet Take 1 tablet by mouth. ??? traZODone (for_DESYREL) 50 mg tablet Take 1 tablet by mouth daily. Allergies Allergen Reactions ??? Cefixime Other (see comments) Unknown reaction as a child PHYSICAL EXAM BP (!) 92/52 Pulse 82 Temp 36.8 ??C (Temporal) Resp 20 Ht 167.6 cm Wt 103.2 kg BMI 36.72kg/m?? Body mass index is 36.72 kg/m??. GENERAL: Patient is in no distress. Capable of full communication without difficulty. Patient is polite and cooperative. HEENT: Normocephalic. EOMI, PERRL. Oropharynx without lesion of mucosa. Dentition and gums intact. Pharyngeal rises symmetrically without exudate. NECK: No nodes. NEURO: Alert, oriented x3; speech: normal in context and clarity, memory: intact grossly; cranial nerves II-XII: intact; motor strength: full proximally and distally; no involuntary movements or tremors; sensation: intact to pain, and light touch; gait: normal. PSYCH: Affect is appropriate ASSESSMENT/PLAN: #1 Neuralgia Trigeminal Patient symptoms are consistent with trigeminal neuralgia. Patient is neurologically intact. She is currently taking Lamictal 200mg for Bipolar disorder, so I started her on Gabapentin for nerve pain and a Medrol Dose Pack for inflammation. She was encouraged to continue with Tylenol and ice for face p ain. I encouraged her to follow up in the next couple days if her pain worsens or fails to improve with medication. #2 Bipolar II Disorder (HCC) As above. Plan was discussed with patient and is in agreement with plan. All questions were answered, side effects of any/all new medications were discussed. Patient left in no acute distress. Ready to learn. No apparent learning barriers were identified. Learning preferences include listening. Explained diagnosis and treatment plan. Patient/Child/Caregiver expressed understanding of the content. Chandni Urbina APRN, D.N.P., C.N.P. PROGRAMMER ANALYST documented in this encounter Plan of Treatment Not on filedocumented as of this encounter Visit Diagnoses Diagnosis Neuralgia Trigeminal - Primary Bipolar II Disorder (HCC) documented in this encounter Additional Health Concerns Assessment Noted Time PHQ-9 Depression Total Score: 9 08/30/2017 4:00 PM SAS PROGRAMMER ANALYST documented as of this encounter Care Teams Grand Jury Deputy Sheriff Relationship Specialty Start Date End Date Holley Saucedo APRN, C.N.P. PCP - General 01/27/17 12/09/17 documented as of this encounter
--- OUTSIDE RECORDS SUMMARY | 2022-04-07 13:17 | XMS_ITS | Encounter Summary ---
:1995 Author Organization [facility] Address [address] [place] [address] Care Team Providers Name Role Phone Unavailable Primary Care Provider Unavailable Encounter Details Date Type Department Care Team Description 09/17/2016 Hospital Encounter HX [facility] Francisca Saucedo, PHYSICIAN PEDIATRICIAN, C.N.P. [address] [place], [place] [address] (Wo rk) Social History [...] How often do you attend mormon or denominational Never 10/23/2020 services? 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 - 09/17/2016 3:56 PM CST Clinic Full Note CHIEF COMPLAINT/REASON FOR VISIT Vaginal itching. Vaginal burning. Vaginal odor. HISTORY OF PRESENT ILLNESS Carly is a very pleasant 21-year-old female who comes into the clinic today with concerns relatedto vaginal itching, burning and odor for approximately 3 days. She denies any dysuria or urinary frequency. She denies any flank pain. She reports she used oral antibiotics in August of 2016. She denies any concerns with bowel. She denies any heart palpitations, chest pain or shortness of breath. Sheis here today for further evaluation. She has no other concerns today. MEDICATIONS Advair Diskus 250 mcg-50 mcg inhalation powder, 1 puff(s), Inhalation, 2xDay, 3 refills Chateal 0.15 mg-30 mcg oral tablet, 1 tab(s), PO, Daily Effexor XR 37.5 mg oral capsule, extended [...] wisdom teeth (). SOCIAL HISTORY Date Time: 09/17/2016 15:07 Tobacco: Smoking Status: Former smoker Exposure: Care provider denies smoking in home, Other: former smoker Alcohol: Use: Yes Recreational Drugs: Use: None Type: No Results Found FAMILY HISTORY Grandmother (paternal):Positive: [place] - Breast cancer; Diabetes mellitus Grandfather (paternal):Positive: Diabetes mellitus SYSTEMS REVIEW As per HPI. VITAL SIGNS T: 36.7 ??C (Core) HR: 70 RR: 16 BP: 117 / 62 SpO2: 99% HT: 167 cm PHYSICAL EXAMINATION GENERAL: Alert and oriented. No acute distress. HEAD: Normocephalic/atraumatic. NECK: No nodes, no thyromegaly. HEART: Regular rate and rhythm. No murmurs, gallops or rubs noted. LUNGS: Clear to auscultation bilaterally. No expiratory wheeze. No accessory muscles of respirationnoted. : Labia majora and minora with erythema and scant discharge. No odor. EXTREMITIES: No neurovascular compromise. No cyanosis, clubbing or edema. NEUROLOGICAL: Cranial nerves II-VII grossly intact and symmetric. She ambulates with a steady gait. LAB RESULTS Trichomonas vaginalis DNA negative Gardnerella vaginalis DNA positive Veronica species DNA positive Reference: Negative IMPRESSION/REPORT/PLAN Discharge Vaginal, Odor Vaginal A vaginitis panel was positive for both fungal and bacterial components. I ordered Flagyl 500 mg twice daily for 7 days for symptom management. She was also instructed to use OTC topical fungal treatment for symptom management. Ordered: OV Est Pt Level 4 - 22918 - 25 min Vaginitis Panel, DNA (Genital) Vaginal Itching See #1. All questions were answered. She left in no acute distress. A total of 25 minutes with 20 minutes used for counseling and coordination of care. Ordered: OV Est Pt Level 4 - 04275 - 25 min Vaginitis Panel, DNA (Genital) Electronically Signed By: HOLLEY SAUCEDO RODDING MACHINE TENDER On: 09/27/2016 08:44 AM Source: [facility] POWERCHART Document Id: [id number] LING MACHINE OPERATOR documented in this encounter Miscellaneous Notes Miscellaneous - Holley Saucedo, R.N. - 09/18/2016 8:22 AM CST Results Notification Document Contains Addenda Addendum by DORIAN DAVENPORT LPN on September 18, 2016 09:10:06 BEVELING MACHINE OPERATOR Patient notified. From: HOLLEY SAUCEDO RODDING MACHINE TENDER To: [place] [facility] Nurse Mitesh; Sent: 09/18/2016 08:22:08 BEVELING MACHINE OPERATOR Show up: 09/18/2016 08:22:00 BEVELING MACHINE OPERATOR Subject: Results Notification Please call patient and let her know that her vaginal swab was positive for both a fungal and bacterial component. I sent a script for Flagyl twice daily to [facility]. She can also get a OTC topical fungal medication to treat the fungal component. Thanks! Results: Date Result Type Ind Result Name MBO POS Vaginosis Panel, DNA Source: [employer]affix Document Id: [id number] Electronically signed by Conversion, [facility] Junior [employer] School Teacher [id number] at 01/25/2017 12:22 AM CDT Octaviacellgustabo - Holley Saucedo R.N. - 09/18/2016 8:21 AM CST Positive Vaginosis Panel From: HOLLEY SAUCEDO RODDING MACHINE TENDER Sent: 09/18/2016 08:21:01 BEVELING MACHINE OPERATOR ! Show up: 09/18/2016 08:19:00 BEVELING MACHINE OPERATOR Subject: Positive Vaginosis Panel Please call patient and let her know that her vaginal swab was positive for both a fungal and bacterial component. I sent a script for Flagyl twice daily to [facility]. She can also get a OTC topical fungal medication to treat the fungal component. Thanks! Results: Date Result Type Ind Result Name MBO POS Vaginosis Panel, DNA Source: [employer]affix Document Id: [id number] Electronically signed by Conversion, [employer] Junior [employer] Teacher [id number] at 01/25/2017 12:22 AM CDT [place] - Vinnie Lyman L.P.N. - 09/17/2016 3:07 PM CST Adult Service Officer Intake/History Adult Service Officer Intake/History Entered On: 09/17/2016 15:10 BEVELING MACHINE OPERATOR Performed On: 09/17/2016 15:07 BEVELING MACHINE OPERATOR by VINNIE LYMAN LPN Intake Chief Complaint : Questions yeast infection. Temperature Core : 36.7 DegC(Converted to: 98.1 DegF) Peripheral Pulse Rate : 70 /min Respiratory Rate : 16 /min Heart Rhythm : Regular Systolic Blood Pressure : 117 mmHg Diastolic Blood Pressure : 62 mmHg NIBP Mean : 80 mmHg BP Location : Left upper extremity Blood Pressure Cuff Size : Large SpO2 : 99 % Oxygen Therapy : Room air Height : 167 cm(Converted to: 5 ft 6 inch(es), 66 inch(es)) VINNIE LYMAN LPN - 09/17/2016 15:07 BEVELING MACHINE OPERATOR General Info Languages : Comoran Is Patient Female and 13-50 no hysterectomy : Yes Status : Patient denies Are you ? : No VINNIE LYMAN LPN - 09/17/2016 15:07 BEVELING MACHINE OPERATOR Subjective Pain Symptoms : No VINNIE LYMAN LPN - 09/17/2016 15:07 BEVELING MACHINE OPERATOR Dependent Habits Exposure to Tobacco Smoke : Care provider denies smoking in home, Other: former smoker Smoking Status : Former smoker Tobacco 2A : Yes Tobacco Use/Currently Using : No Tobacco Use/Last 30 Days : No Tobacco Use/Last 12 months : No Alcohol Use : Yes VINNIE LYMAN LPN - 09/17/2016 15:07 BEVELING MACHINE OPERATOR Caffeine Use Grid Caffeine Use : Current Type : Soft drinks Frequency : Occasionally VINNIE LYMAN LPN - 09/17/2016 15:07 BEVELING MACHINE OPERATOR Recreational Drug Use Grid Drug Use : None VINNIE LYMAN LPN - 09/17/2016 15:07 BEVELING MACHINE OPERATOR Source: [facility] HALFPOPSCHART Document Id: [id number] BEVELING MACHINE OPERATOR!38 LING MACHINE OPERATOR documented in this encounter Plan of Treatment Not on filedocumented as of this encounter Procedures Procedure Name Priority Date/Time Associated Diagnosis Comme nts VAGINITIS BATTERY, Routine 09/17/2016 3:30 PM Res ults for this DNA (GENITAL) BEVELING MACHINE OPERATOR procedure are in the results section. documented in this encounter Results (ABNORMAL) VAGINITIS BATTERY, DNA (GENITAL) (09/17/2016 3:30 PM BEVELING MACHINE OPERATOR) Component Value Ref Test Analysis Performed At [facility] Range Method Time Signature HXVaginitis (POSITIVE) POWERCHART Battery, DNA (Genital) HXFinal Trichomonas POWERCHART vaginalis DNA negative HXFinal Gardnerella POWERCHART vaginalis DNA positive HXFinal Veronica species POWERCHART DNA positive HXFinal Reference: POWERCHART Negative Specimen (Source) Anatomical Collection Method Collection Time Re ceived Time Location / / Volume Laterality Vagina 09/17/2016 3:30 PM BEVELING MACHINE OPERATOR Holley Saucedo APRN, C.N.P. LAB HISTORICAL ORDERS Performing Organization Address City/State/ZIP Code Phon e Number POWERCHART documented in this encounter Visit Diagnoses Not on filedocumented in this encounter
--- OUTSIDE RECORDS SUMMARY | 2022-04-07 13:17 | XMS_ITS | Encounter Summary ---
:1995 Author Organization [facility] Address [address] [place] [address] Care Team Providers Name Role Phone Holley Saucedo APRN, C.N.P. Primary Care Provider [phone] Reason for Visit Physical Therapy (Routine) - Canceled Specialty Diagnoses / Procedures Referred By Contact Refer red To Contact Diagnoses Pain Hip Left Holley Saucedo APRN, [facility] Procedures PT Ongoing treatment C.N.P. [address] [place] [address] Referral ID Status Reason Start Date Expiration Date Visits V isits Requested Authorized [id number] Canceled 06/13/2017 12/10/2017 12 99 Encounter Details Date Type Department Care Team Description 06/24/2017 Clinical Support Department of [place] Saucedo APRN, C.N.P. [address] [place] [address] Pain Hip Left Rehabilitation Services Vandana Au, P.T. in [address] [phone] Social History Tobacco Use Types Packs/Day Years [...] How often do you attend sikhism or caodaism Never 10/23/2020 services? 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 - 06/24/2017 9:15 AM CST Physical Therapy Outpatient Treatment Note Referring Provider: Holley Saucedo C.N.P., R.N. Medical Diagnosis: 1. Pain Hip Left - PT Ongoing treatment Payor: Payor: [facility] [employer] / Plan: [facility] / Product Type: Medicaid HMO / Payor considerations: none Visit Counts: 4 Principal Problem: Patient Active Problem List Diagnosis ??? Asthma NOS ??? Asthma NOS ??? Hypertension Gestational Delivered ??? Depressive Disorder ??? Pain Hip Left Precautions/Restrictions: none Allergies: NA SUBJECTIVE Patient reports that she has been about 30% better since initial evaluation. She continues to be compliant with her exercises and stretches. She is now compliant with restrictions but due to this she has not been working. She was able to tolerate the session well today. OBJECTIVE no new measurements Measures - Tools Measures - Tools Treatment Provided Today: Session started the patient on the elliptical for about 6 minutes. This was in the the walking pace. She was able to tolerate this well but did fatigue. No pain. Patient then was pressed the table. Wedid posterior/lateral left hip joint mobilizations with the mobilization belt and patient tolerated this very well. Long axis distraction of the left lower extremity in supine for 30 seconds x2 bouts. We did trial anterior hip goals but this was unsuccessful. Patient did a left anterior hip stretch inthe her lower position with her leg up onto the chair. 30 seconds into bouts. We did not progress her exercises for home at this point as she is still having good resistance and feeling fatigue from them. Home Exercise Program: Not progress ASSESSMENT Will continue to progress towards the ear initial set goals. Therapy Goals PLAN Will continue seeing patient 2 times a week Patient agrees with the plan of care and goals. Vandana Au P.T. Time Spent with Patient Manual Therapy (min): 10 min Therapeutic Exercise (min): 12 min Total Timed Units (min): 22 min Total Treatment Time (min): 22 min Functional G-code Worksheet ERAGE CLERK documented in this encounter Plan of Treatment Not on filedocumented as of this encounter Visit Diagnoses Diagnosis Pain Hip Left documented in this encounter Additional Health Concerns Assessment Noted Time PHQ-9 Depression Total Score: 18 04/05/2017 2:38 PM CD T documented as of this encounter Care Teams Picture Framer Relationship Specialty Start Date End Date Holley Saucedo APRN, C.N.P. PCP - General 01/27/17 12/09/17 documented as of this encounter
--- OUTSIDE RECORDS SUMMARY | 2022-04-07 13:17 | XMS_ITS | Encounter Summary ---
:1995 Author Organization [facility] Address [address] [place] [address] Care Team Providers Name Role Phone Holley Arreola APRN, C.N.P. Primary Care Provider [phone] Encounter Details Date Type Department Care Team Description 04/05/2017 Hospital Encounter HX [facility] Francisca Arreola APRN, C.N.P. [address] [place], [place] [address] (Wo rk) Social History [...] How often do you attend congregational or mormon Never 10/23/2020 services? 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 - 04/05/2017 11:53 AM CDT Clinic Full Note CHIEF COMPLAINT/REASON FOR VISIT Depression/anxiety. Increased mood swings. HISTORY OF PRESENT ILLNESS Carly is a very pleasant 22-year-old female who comes into the clinic today accompanied by her boyfriend. She is here today with concerns related to increased mood swings and anger concerns overthe last 1-2 months. She is currently using daily Effexor for symptom management. She reports a history of the use of Zoloft, Lexapro and possibly other SSRIs and reports starting Effexor over the lastyear. She reports no known side effects related to the use of Effexor, but reports her mood and anger concerns have gotten worse. She reports she did see a behavioral therapist in the past which was somewhat helpful related to her symptoms. She reports she has thoughts about suicide, but reports she would never act on those thoughts related to her current life situation. She denies any heart palpitations, chest pain or shortness of breath. She is here today for further evaluation. She has no other concerns today. MEDICATIONS Chateal 0.15 mg-30 mcg oral tablet, 1 tab(s), PO, Daily Effexor XR 75 mg oral capsule, extended release, 75 mg, 1 cap(s), PO, Daily, 1 refills Flonase 0.05 mg/inh nasal spray, 2 spray(s), Nasal, 2xDay, 3 refills traZODone 50 mg oral tablet, 50 mg, 1 tab(s), PO, Daily, 1 refills Ventolin HFA 90 mcg/inh inhalation aerosol, 2 puff(s), Inhalation, As Directed, PRN, 3 refills ALLERGIES Suprax (Unknown) PAST MEDICAL HISTORY [...] wisdom teeth (). SOCIAL HISTORY Date Time: 04/05/2017 11:23 Tobacco: Smoking Status: Current every day smoker Exposure: Care provider denies smoking in home, Patient smokes Alcohol: Use: No Results Found Recreational Drugs: Use: None Type: No Results Found FAMILY HISTORY Grandmother (paternal):Positive: CA - Breast cancer; Diabetes mellitus Grandfather (paternal):Positive: Diabetes mellitus SYSTEMS REVIEW As per HPI. VITAL SIGNS HR: 82 RR: 17 BP: 121 / 72 SpO2: 98% HT: 167 cm WT: 96.5 kg BMI: 34.6 PHYSICAL EXAMINATION CONSTITUTIONAL: Alert and oriented. No acute distress. HEAD: Normocephalic/atraumatic. CARDIOVASCULAR: Regular rate and rhythm. No murmurs, gallops or rubs noted. RESPIRATORY: Clear to auscultation bilaterally. No expiratory wheeze. No accessory muscles of respiration noted. MUSCULOSKELETAL: No neurovascular compromise. No cyanosis, clubbing or edema. NEUROLOGICAL: Cranial nerves II-VII grossly intact and symmetric. She ambulates with a steady gait. PSYCHIATRIC: Cooperative. Affect appropriate. IMPRESSION/REPORT/PLAN Anxiety NOS Her BO-7 score was 13 today. See #3 below. Ordered: OV Est Pt Level 3 - 57645 - 15 min Depression Major Recurrent Mild Her PHQ-9 score was 16 today. See #3 below. Ordered: OV Est Pt Level 3 - 29903 - 15 min Mood Disorder NOS I ordered a referral to behavioral health at [facility] for further evaluation related to her increased mood swings/anger management. We discussed the use of a behavioral health therapist in the future for symptom management. She was instructed to contact the clinic with worsening or no improvement in symptoms. All questions were answered. She left in no acute distress. Ordered: OV Est Pt Level 3 - 65932 - 15 min Orders: Consult to Integrated Behavioral Health - Diagnostic Medication Electronically Signed By: HOLLEY ARREOLA CNP RN On: 04/05/2017 12:07 PM Source: [facility] [employer] Document Id: [id number] documented in this encounter Miscellaneous Notes Miscellaneous - Chrissy Dia L.P.N. - 04/05/2017 2:39 PM CDT BO-7 BO-7 Entered On: 04/05/2017 14:40 CDT Performed On: 04/05/2017 14:39 CDT by CHRISSY DIA LPN GAD7 GAD7 Feeling nervous : More than half the days GAD7 Not able to control worry : More than half the days GAD7 Worrying too much : More than half the days GAD7 Trouble relaxing : More than half the days GAD7 Being so restless : More than half the days GAD7 Becoming easily annoyed : Nearly every day GAD7 Feeling afraid : Several days GAD7 Total Score : 14 Problems make work, home, or dealing with others : Somewhat difficult CHRISSY DIA LPN - 04/05/2017 14:39 CDT [facility] Document Id: [id number] CDT!11 Miscellaneous - Chrissy Dia L.P.NGonzalo - 04/05/2017 2:38 PM CDT PHQ-9 PHQ-9 Entered On: 04/05/2017 14:38 CDT Performed On: 04/05/2017 14:38 CDT by CHRISSY DIA LPN PHQ-9 Little interest or pleasure in doing things : More than half the days Feeling down, depressed, or hopeless : More than half the days Trouble falling or staying asleep, or sleeping too much : More than half the days Feeling tired or having little energy : Nearly every day Poor appetite or overeating : Nearly every day Feeling bad about yourself or that you are a failure : More than half the days Trouble concentrating on things : More than half the days Moving or speaking slowly; restless or fidgety : Several days Thoughts that you would be better off /hurting self : Several days PHQ-9 Calculated Score : 18 Problems make work, home, or dealing with others : Somewhat difficult CHRISSY DIA LPN - 04/05/2017 14:38 CDT Source: [facility] [employer] Document Id: [id number] CDT!13 Miscellaneous - Arielle Harris L.P.N. 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 Peripheral Pulse Rate : 82 /min Respiratory Rate : 17 /min Systolic Blood Pressure : 121 mmHg Diastolic Blood Pressure : 72 mmHg NIBP Mean : 88 mmHg BP Location : Left upper extremity Blood Pressure Cuff Size : Large SpO2 : 98 % Oxygen Therapy : Room air Height : 167 cm(Converted to: 5 ft 6 inch(es), 66 inch(es)) Actual Weight : 96.5 kg(Converted to: 212 lb 12 oz) Weight Source : Standing scale Dosing Weight Clinic : 96.5 kg Clinic BSA : 2.12 Body Mass Index : 34.6 kg/m2 ARIELLE HARRIS LPN - 04/05/2017 11:23 CDT General Info Languages : Spanish Is Patient Female and 13-50 no hysterectomy : Yes Status : Patient denies Are you ? : No ARIELLE HARRIS LPN - 04/05/2017 11:23 CDT Subjective Pain Symptoms : No ARIELLE HARRIS LPN - 04/05/2017 11:23 CDT Dependent Habits Exposure to Tobacco Smoke : Care provider denies smoking in home, Patient smokes Smoking Status : Current every day smoker Tobacco 2A : Yes Tobacco Use/Currently Using : Yes Tobacco Use/Last 30 Days : Yes Tobacco Use/Last 12 months : Yes Tobacco Last Use/Month : July Type : Cigarettes: Less than 20 per day Tobacco Use/Advised to Quit : Yes ARIELLE HARRIS LPN - 04/05/2017 11:23 CDT Caffeine Use Grid Caffeine Use : Current Type : Soft drinks Frequency : Occasionally ARIELLE HARRIS LPN - 04/05/2017 11:23 CDT Recreational Drug Use Grid Drug Use : None ARIELLE HARRIS LPN - 04/05/2017 11:23 CDT [facility] Document Id: [id number] CDT!45 documented in this encounter Plan of Treatment Not on filedocumented as of this encounter Visit Diagnoses Not on filedocumented in this encounter Additional Health Concerns Assessment Noted Time PHQ-9 Depression Total Score: 18 04/05/2017 2:38 PM CD T documented as of this encounter Care Teams Manager Actuarial Relationship Specialty Start Date End Date Holley Arreola APRN, C.N.P. PCP - General 01/27/17 12/09/17 documented as of this encounter
--- OUTSIDE RECORDS SUMMARY | 2022-04-07 13:17 | XMS_ITS | Encounter Summary ---
:1995 Author Organization [facility] Address [address] [place] [id number] Care Team Providers Name Role Phone Holley Saucedo APRN, C.N.P. Primary Care Provider Reason for Visit Physical Therapy (Routine) - Canceled Specialty Diagnoses / Procedures Referred By Contact Refer red To Contact Diagnoses Pain Hip Left Holley Saucedo APRN, [facility] Region Procedures PT Ongoing treatment C.N.P. [address] [place] [address] Referral ID Status Reason Start Date Expiration Date Visits V isits Requested Authorized [id number] Canceled 06/13/2017 12/10/2017 12 99 Encounter Details Date Type Department Care Team Description 07/12/2017 Clinical Support Department of [place] Saucedo APRN, C.N.P. [address] [place] [address] Pain Hip Left Rehabilitation Services Vandana Au, P.T. in [address] [phone] Social History Tobacco Use Types Packs/Day Years [...] 10/23/2020 relatives? How often do you attend roman catholic or jain Never 10/23/2020 services? 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 - 07/12/2017 10:00 AM CST Physical Therapy Outpatient Treatment Note PROGRESS NOTE SUBJECTIVE Visit Count since Last G-Code: 4 Episode Visit Count: 4 Visit Diagnosis: #1 Pain Hip Left Referring Provider: Kenzie Armstrong* Subjective: Patient reports she has been doing very well. Her exercises are going well at home. She is worked 2 days. She has minimal to no pain in the hip anymore. OBJECTIVE Patient started the session on the elliptical for 7 minutes at level 1. Patient then went to the treadmill into this for 8 minutes for a total of 15 minutes of endurance type activities and she was able to do this pain free. Patient then went and lifted 5 lb, 10 lb, 15 lb from floor height to waist height with proper technique in a squat fashion. And then she did 3 more repetitions until fatigue. Patient is able to do this pain free but needs to work on her endurance. Patient then did the leg pressat 20 lb for 15 repetitions and tolerated this well. She was demonstrated how she can do wall squatswith a weight at home. She is able to do this 15 reps and tolerated well. Patient was also progressed with standing exercises of hip extension, hip abduction, and hip adduction with the green Thera-Band. Exercises were printed out for patient on paper. Measures - Tools Assessment Clinical Impression Patient is progressing well. Her symptoms are almost completely gone. Her snapping in her hip is almost completely gone as well. Assessment Progress: Progressing toward goals Plan At this time we will plan to continue seeing patient for 2 more weeks. We will make sure that she is pain-free and that her functional strength is improved in order to return back to her job. 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 PCP - General 01/27/17 12/09/17 documented as of this encounter
--- OUTSIDE RECORDS SUMMARY | 2022-04-07 13:17 | XMS_ITS | Encounter Summary ---
:1995 Author Organization [facility] Address [address] [place] [address] Care Team Providers Name Role Phone Unavailable Primary Care Provider Unavailable Encounter Details Date Type Department Care Team Description 11/16/2016 Hospital Encounter HX [facility] Francisca Arreola, CNC MACHINE SETTER, C.N.P. [address] [place], [place] [address] (Wo rk) Social History [...] 10/23/2020 relatives? How often do you attend evangelical or spiritism Never 10/23/2020 services? 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 - 11/16/2016 2:12 PM CDT Clinic Full Note CHIEF COMPLAINT/REASON FOR VISIT Vaginal itching. Vaginal odor. Mood changes. HISTORY OF PRESENT ILLNESS Dhiraj is a very pleasant 21-year-old female who comes into the clinic today with ongoing concernsrelated to vaginal odor and intermittent itching. She reports she has been seen in primary care twice over the last several weeks and had a positive result for bacterial vaginosis. She reports she was treated twice with oral Flagyl. She reports her vaginal symptoms have improved, but have not completely resolved. She denies any vaginal drainage or hematuria. She also reports her mood has been depressed over the last 4-6 weeks. She reports a history of cutting behaviors, but denies any current cutting behaviors. She denies any heart palpitation, chest pain or shortness of breath. She [...] persist, PO, Once, 0 refills Effexor XR 37.5 mg oral capsule, [...] wisdom teeth (). SOCIAL HISTORY Date Time: 11/16/2016 13:21 Tobacco: Smoking Status: Former smoker Exposure: Care provider denies smoking in home, Other: former smoker Alcohol: Use: Yes Recreational Drugs: Use: None Type: No Results Found FAMILY HISTORY Grandmother (paternal):Positive: [place] - Breast cancer; Diabetes mellitus Grandfather (paternal):Positive: Diabetes mellitus SYSTEMS REVIEW As per HPI. VITAL SIGNS T: 36.7 ??C (Core) HR: 82 BP: 117 / 70 SpO2: 98% HT: 167 cm PHYSICAL EXAMINATION GENERAL: Alert and oriented. No acute distress. HEAD: Normocephalic/atraumatic. HEART: Regular rate and rhythm. No murmurs, gallops or rubs noted. LUNGS: Clear to auscultation bilaterally. No expiratory wheeze. No accessory muscles of respirationnoted. ABDOMEN: Nontender to palpation. No hepato-splenomegaly. No mass. Normal bowel sounds in all 4 quadrants. PELVIS: External female genitalia with mild erythema and scant drainage appreciable related to labia minora. EXTREMITIES: No neurovascular compromise. No cyanosis, clubbing or edema. NEUROLOGICAL: Cranial nerves II-VII grossly intact and symmetric. She ambulates with a steady gait. LAB RESULTS Trichomonas vaginalis DNA negative Gardnerella vaginalis DNA positive Veronica species DNA ne Reference: Negative IMPRESSION/REPORT/PLAN Depression Major Recurrent Severe Her PHQ-9 score was 15 and her BO-7 score was 14. I increased her venlafaxine from 37.5 mg to 75 mg daily. She was instructed to follow up in primary care in 6-8 weeks for further evaluation. Ordered: OV Est Pt Level 4 - 30777 - 25 min Odor Vaginal A vaginal panel was positive for a bacterial infection. I ordered vaginal clindamycin to be taken as directed for symptom management. Ordered: OV Est Pt Level 4 - 01575 - 25 min Vaginitis Panel, DNA (Genital) Vaginal Itching See #2 above. All questions were answered. He left in no acute distress. A total of 25 minutes with20 minutes used for counseling and coordination of care. Ordered: OV Est Pt Level 4 - 85503 - 25 min Vaginitis Panel, DNA (Genital) Orders: venlafaxine, 75 mg = 1 cap(s), PO, Daily, # 30 cap(s), 2 Refill(s), Maintenance, Pharmacy: [facility] Electronically Signed By: HOLLEY ARREOLA NP On: 11/28/2016 10:24 PM Source: [facility] POWERCHART Document Id: [id number] documented in this encounter Miscellaneous Notes Miscellaneous - Tami Ceballos - 12/21/2016 2:27 PM CDT Health Maintenance Reminder December 21, 2016 DHIRAJ LANDA [address] [facility] [address] Dear DHIRAJ LANDA, We have developed a six-month overview of preventive and recommended services that apply to your unique health care needs. Some may be past due or may be coming due in the next three months. If youhave already scheduled any or all of these services, thank you. We recognize that this may or may not include all of your individualized health care needs; however, we are happy to help you with any and all primary care concerns you may have. Past Due Fasting Glucose Lab Test for Diabetes Screening: recommended preventive service starting at age 18 Fasting Lipid Panel: recommended preventive service starting at age 20 Planning for the future (three to six months from now) Asthma Control Test Questionnaire (on or soon after May 27, 2017) It may be possible to bundle some of the above services together to make your visit with us more convenient. Please call [phone] to schedule services that are past due or that may shortly become due (thank you if you have already done so). We will follow up in three to six months should you have more services to schedule at that time. If you have already received any of the listed past due or upcoming services outside of [facility], please call [phone] to add them to your medical record. You may want to consider contacting your health insurance company to make sure these services are covered and find out if there will be any [id number] expense. If you have any questions about the services listed above, or if you are no longer receiving care from [facility], please contact us at [phone]. Thank you for partnering to provide you with the best care possible. Thank you for choosing us, Holley Arreola R.N. and the [facility] Care Team, for your health care needs! Sincerely, TAMI CEBALLOS Electronic Signature Electronically Signed By: TAMI CEBALLOS On: December 21, 2016 This document has images extracted. 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 - 11/17/2016 11:27 AM CDT Results Notification Document Contains Addenda Addendum by BABAK LOPEZ LPN on November 18, 2016 09:46:34 CDT Second message left for the below info. Addendum by VICTORIANO VICENTE on November 17, 2016 15:31:01 CDT Client called us back however, I was not available to answer phone. She left a voice mail with the phone number of [phone]. I did, then call her back and got a voice mail. 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 Addendum by CONSUELO DIA LPN on November 17, 2016 11:41:25 CDT called and lvm to contact us regarding message below. From: HOLLEY ARREOLA MANNEQUIN MOLDER To: [facility] Nurse Mitesh; Sent: 11/17/2016 11:26:59 CDT Show up: 11/17/2016 11:26:00 CDT Subject: Results Notification Please call patient and let her know that her vaginal panel was positive for bacteria, but no fungalinfection. I sent a script for clindamycin vaginal application to [facility]. Thanks! Results: Date Result Type Ind Result Name MBO POS Vaginosis Panel, DNA Source: [facility] [employer] Document Id: [id number] Consuelo Diaz L.P.NGonzalo - 11/16/2016 2:30 PM CDT BO-7 BO-7 Entered On: 11/16/2016 14:32 CDT Performed On: 11/16/2016 14:30 CDT by CONSUELO DIA LPN GAD7 GAD7 Feeling nervous : [...] or dealing with others : Somewhat difficult CONSUELO DIA LPN - 11/16/2016 14:30 CDT Source: [facility] [employer] Hospit[employer] Document Id: [id number] CDT!11 Consuelo Diaz L.P.Berta - 11/16/2016 2:30 PM CDT PHQ-9 PHQ-9 Entered On: 11/16/2016 14:40 CDT Performed On: 11/16/2016 14:30 CDT by CONSUELO DIA LPN PHQ-9 Little interest or pleasure in doing things : Several days Feeling down, depressed, or hopeless : Several days Trouble falling or staying asleep, or sleeping too much : More than half the days Feeling tired or having little energy : More than half the days Poor appetite or overeating : More than half the days Feeling bad about yourself or that you are a failure : More than half the days Trouble concentrating on things : More than half the days Moving or speaking slowly; restless or fidgety : Several days Thoughts that you would be better off /hurting self : Several days PHQ-9 Calculated Score : 14 Problems make work, home, or dealing with others : Somewhat difficult CONSUELO DIA LPN - 11/16/2016 14:30 CDT Source: [employer] Document Id: [id number] CDT!13 Miscellaneous - Holley Arreola RChristy - 11/16/2016 1:56 PM CDT Ambulatory Patient Summary [address] [id number] Visit Information Name: SYEDADHIRAJE [facility] Number: [id number] Current Date: 11/16/2016 13:56:55 Physicians Attending Provider: HOLLEY ARREOLA MANNEQUIN MOLDER Primary Care Provider: HOLLEY ARREOLA MANNEQUIN MOLDER DHIRAJ LANDA has been given the following [...] nasal (Flonase 0.05 mg/inh nasal spray) 2 Bowie(s), Nasal, two times a day fluticasone-salmeterol (Advair Diskus 250 mcg-50 mcg inhalation powder) 1 puff(s), Inhalation, two times a day levonorgestrel-ethinyl estradiol (Chateal 0.15 mg-30 mcg oral tablet) 1 Tablet(s), Oral, once a day traZODone (traZODone 50 mg oral tablet) 1 Tablet(s), Oral, once a day venlafaxine (Effexor XR 75 mg oral capsule, extended release) 1 cap, Oral, once a day This is a CHANGE Routed to [address] [address] Stop Taking the Following Medications: Medication list as of 11-16-16 13:56 Attention: If you have any medications at [...] of emergency. Electronically Signed By: HOLLEY ARREOLA NP Signed On:16-NOV-2016 13:56:50 Your Allergies & Intolerances Substance Reaction Symptoms [...] if you dont have one. Go to [email or web address] and click on Create Your Account. Then, follow the directions to complete the online form. Youll be asked for your [facility] number which you can find at the top of this document. Your Goals/Additional instructions: Source: [facility] POWERCHART Document Id: [id number] Miscellaneous - Holley Arreola R.N. - 11/16/2016 1:56 PM CDT Ambulatory Discharge Medication List [address] [place] [id number] Visit Information Name: DHIRAJ LANDA [facility] Number: [id number] Current Date: 11/16/2016 13:56:54 Attending Provider: HOLLEY ARREOLA MANNEQUIN MOLDER Primary Care Provider: HOLLEY ARREOLA MANNEQUIN MOLDER DHIRAJ LANDA has been given the following [...] nasal (Flonase 0.05 mg/inh nasal spray) 2 Bowie(s), Nasal, two times a day fluticasone-salmeterol (Advair Diskus 250 mcg-50 mcg inhalation powder) 1 puff(s), Inhalation, two times a day levonorgestrel-ethinyl estradiol (Chateal 0.15 mg-30 mcg oral tablet) 1 Tablet(s), Oral, once a day traZODone (traZODone 50 mg oral tablet) 1 Tablet(s), Oral, once a day venlafaxine (Effexor XR 75 mg oral capsule, extended release) 1 cap, Oral, once a day This is a CHANGE Routed to [address] [place] [address] Stop Taking the Following Medications: Medication list as of 11-16-16 13:56 Attention: If you have any medications at [...] of emergency. Electronically Signed By: HOLLEY ARREOLA MANNEQUIN MOLDER Signed On:16-NOV-2016 13:56:50 Additional Information: Source: [facility] POWERCHART Document Id: [id number] Miscellaneous - Victoriano Vicente L.PGonzaloN. - 11/16/2016 1:21 PM CDT Adult Inspector And Unloader Intake/History Adult Inspector And Unloader Intake/History Entered On: 11/16/2016 13:26 CDT Performed On: 11/16/2016 13:21 CDT by VICTORIANO VICENTE Intake Chief Complaint : Here for possible bacterial vaginitis/yeast. Wants to discuss Effexor dosage. Never really was THAT effective. Ambulatory Intake Additional Information : Treated for this prior on several occasions. Symptoms resolved but have returned x 2. Finished meds as instructed. Now having 1 1/2 wks of vaginal itching, odor & maybe some dc. Afebrile. Denies urinary symptoms, pain of any kind. Temperature Core : 36.7 DegC(Converted to: 98.1 DegF) Peripheral Pulse Rate : 82 /min Systolic Blood Pressure : 117 mmHg Diastolic Blood Pressure : 70 mmHg NIBP Mean : 86 mmHg BP Location : Left upper extremity Blood Pressure Cuff Size : Regular SpO2 : 98 % Oxygen Therapy : Room air Height : 167 cm(Converted to: 5 ft 6 inch(es), 66 inch(es)) VICTORIANO VICENTE - 11/16/2016 13:21 CDT General Info Information Given By : Patient Languages : Tunisian Is Patient Female and 13-50 no hysterectomy : Yes Status : Patient denies Are you ? : No VICTORIANO VICENTE - 11/16/2016 13:21 CDT Subjective Pain Symptoms : No VICTORIANO VICENTE - 11/16/2016 13:21 CDT Dependent Habits Exposure to Tobacco Smoke : Care provider denies smoking in home, Other: former smoker Smoking Status : Former smoker Tobacco 2A : Yes Tobacco Use/Currently Using : No Tobacco Use/Last 30 Days : No Tobacco Use/Last 12 months : No Tobacco Last Use/Month : July Tobacco Last Use/Year : 2015 Alcohol Use : Yes VICTORIANO VICENTE Pina - 11/16/2016 13:21 CDT Caffeine Use Grid Caffeine Use : Current Type : Soft drinks Frequency : Occasionally VICTORIANO VICENTE Pina - 11/16/2016 13:21 CDT Recreational Drug Use Grid Drug Use : None MARION VICENTEVICKI Heller - 11/16/2016 13:21 CDT Source: [facility] Elo7CHART Document Id: [id number] CDT!40 documented in this encounter Plan of Treatment Not on filedocumented as of this encounter Procedures Procedure Name Priority Date/Time Associated Diagnosis Comme nts VAGINITIS BATTERY, Routine 11/16/2016 1:55 PM Res ults for this DNA (GENITAL) CDT procedure are in the results section. documented in this encounter Results (ABNORMAL) VAGINITIS BATTERY, DNA (GENITAL) (11/16/2016 1:55 PM CDT) Component Value Ref Test Analysis Performed At [facility] Range Method Time Signature HXVaginitis (POSITIVE) POWERCHART Battery, DNA (Genital) HXFinal Trichomonas POWERCHART vaginalis DNA negative HXFinal Gardnerella POWERCHART vaginalis DNA positive HXFinal Veronica species POWERCHART DNA negative HXFinal Reference: POWERCHART Negative Specimen (Source) Anatomical Collection Method Collection Time Re ceived Time Location / / Volume Laterality Vagina 11/16/2016 1:55 PM CDT Holley Arreola APRN, C.N.P. LAB HISTORICAL ORDERS Performing Organization Address City/State/ZIP Code Phon e Number POWERCHART documented in this encounter Visit Diagnoses Not on filedocumented in this encounter Additional Health Concerns Assessment Noted Time PHQ-9 Depression Total Score: 14 11/16/2016 2:30 PM CD T documented as of this encounter
--- OUTSIDE RECORDS SUMMARY | 2022-04-07 13:17 | XMS_ITS | Encounter Summary ---
:1995 Author Organization [facility] Address [address] [place] [address] Care Team Providers Name Role Phone Holley Saucedo APRN, C.NGonzaloP. Primary Care Provider [phone] Reason for Visit Reason Comments Other cold symptoms Encounter Details Date Type Department Care Team Description 08/12/2017 Office Visit Department of Family Cj, Bronchi tis (Primary Dx); Medicine, [place] [facility] Asthma Moderate Persistent (HCC) Clinic, in [address] [id number] Social History Tobacco Use Types Packs/Day [...] How often do you attend mosque or rastafari Never 10/23/2020 services? 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 - 08/12/2017 11:15 AM CST CHIEF COMPLAINT / REASON FOR VISIT Carly Joseph is a 22 y.o. female who presents for evaluation of Other (cold symptoms). HISTORY OF PRESENT ILLNESS Acute visit. History of asthma. She has albuterol, singular, Advair at home. She also uses Flonase seasonally. She is to smoke, no longer. She has had 1 week of increasing chest tightness and dyspnea. She has had postnasal drip sinus congestion fatigue and chills. PROBLEM LIST/PMH REVIEWED/UPDATED WITH PATIENT IN THE ROOM Current Outpatient Prescriptions: ??? albuterol (for_ACCUNEB) 2.5 mg /3 mL nebulizer solution, one unit dose quid and q2hr prn, Disp: , Rfl: ??? albuterol (VENTOLIN HFA) 90 mcg/actuation inhaler, Inhale 2 puffs every 4 (four) hours as neededfor wheezing., Disp: 2 Inhaler, Rfl: 11 ??? fluticasone (for_FLONASE) 50 mcg/actuation nasal spray, Administer 2 sprays into affected nostril(s) 2 (two) times a day., Disp: , Rfl: ??? fluticasone-salmeterol (for_ADVAIR DISKUS) 250-50 mcg/dose diskus inhaler, Inhale 1 puff., Disp:, Rfl: ??? lamoTRIgine (for_LaMICtal) 100 mg tablet, Start after 25 mg tabs. 1 tab daily for a week, then 1.5 tabs daily, Disp: 45 tablet, Rfl: 1 ??? LEVONORGESTREL-ETHIN ESTRADIOL (CHATEAL ORAL), Take 1 tablet by mouth daily., Disp: , Rfl: ??? montelukast (for_SINGULAIR) 10 mg tablet, Take 10 mg by mouth., Disp: , Rfl: ??? azithromycin (for_ZITHROMAX) 250 mg tablet, Take 2 tablets the first day, then 1 tablet daily for 4 days., Disp: 6 tablet, Rfl: 0 ??? lamoTRIgine (for_LaMICtal) 25 mg tablet, 1 tab daily for 2 weeks, then 2 tabs daily for 2 weeks,then switch to 100 mg tabs, Disp: 42 tablet, Rfl: 0 ??? methylPREDNISolone (for_MEDROL DOSEPACK) 4 mg tablet, follow package directions, Disp: 1 tablet,Rfl: 0 ??? prenat.vits,hernandez,zde-ttxz-mwugy ( VITAMIN) tablet, Take 1 tablet by mouth., Disp: , Rfl: ??? traZODone (for_DESYREL) 50 mg tablet, Take 1 tablet by mouth daily., Disp: , Rfl: ??? venlafaxine XR (for_EFFEXOR-XR) 37.5 mg 24 hr capsule, 1 cap daily for a week, then discontinue (Patient not taking: Reported on 08/12/2017 ), Disp: 7 capsule, Rfl: 0 Allergies Allergen Reactions ??? Cefixime Other (see comments) Unknown reaction as a child Social History Substance Use Topics ??? Smoking status: Current Every Day Smoker Packs/day: 0.25 ??? Smokeless tobacco: Never Used Comment: less than 5 a day ??? Alcohol use 1.2 oz/week 2 Glasses of wine per week Social History Social History Narrative ??? No narrative on file REVIEW OF SYSTEMS Constitutional: Positive for fatigue. Skin: Negative for skin rash. Eyes: Negative for visual problems. HENT: Positive for sinus congestion. Respiratory: Positive for coughing up mucus (phlegm), shortness of breath and wheezing. Cardiovascular: Positive for chest pain, pressure or tightness and shortness of breath when lying flat. Gastrointestinal: Negative for abdominal (belly) pain or cramping. Hematological: Negative for abnormal lumps or bumps. Neurological: Positive for headaches. Negative for loss of consciousness. PHYSICAL EXAM Vitals: 08/12/17 1123 BP: 120/72 Pulse: 72 Temp: 36.6 ??C Body mass index is 36.14 kg/m??. Constitutional: She is oriented to person, place, and time. Eyes: Conjunctivae are normal. Neck: Normal range of motion. Cardiovascular: Normal rate, regular rhythm and normal heart sounds. Pulmonary/Chest: Effort normal and breath sounds normal. No wheezes. Moving air well. No respiratory distress. Musculoskeletal: Normal range of motion. Neurological: She is alert and oriented to person, place, and time. Skin: Skin is warm and dry. Capillary refill takes less than 2 seconds. Psychiatric: She has a normal mood and affect. Her behavior is normal. Judgment and thought content normal. ASSESSMENT AND PLAN #1 Bronchitis Fluids, rest. Discussed URI home management including Mucinex D/Saline washes/rinses. Good handwashing. Complete all abx. Eat yogurt if you get diarrhea from abx. If diarrhea is severe or prolonged, f/u with clinic. ER and clinic red flags discussed. #2 Asthma Moderate Persistent (HCC) No wheezing today. Refilled her albuterol. ER precautions. Other orders - methylPREDNISolone (for_MEDROL DOSEPACK) 4 mg tablet; follow package directions, Normal - azithromycin (for_ZITHROMAX) 250 mg tablet; Take 2 tablets the first day, then 1 tablet daily for 4 days., Normal Inez Corona M.D. IKISHA DRIVER documented in this encounter Plan of Treatment Not on filedocumented as of this encounter Visit Diagnoses Diagnosis Bronchitis - Primary Asthma Moderate Persistent (HCC) documented in this encounter Additional Health Concerns Assessment Noted Time PHQ-9 Depression Total Score: 17 07/12/2017 10:[address] documented as of this encounter Care Teams Svp Monetization Relationship Specialty Start Date End Date Holley Saucedo APRN, C.N.P. PCP - General 01/27/17 12/09/17 documented as of this encounter
--- OUTSIDE RECORDS SUMMARY | 2022-04-07 13:17 | XMS_ITS | Encounter Summary ---
:1995 Author Organization [facility] Address [address] [place] [address] Care Team Providers Name Role Phone Unavailable Primary Care Provider Unavailable Encounter Details Date Type Department Care Team Description 10/20/2016 Hospital Encounter HX [facility] ME Ramos Matos, TOBI, C.N.P., D. N.P. [address] [place] [address] (Wo rk) Social History Tobacco Use [...] How often do you attend gnosticist or mu-ism Never 10/23/2020 services? 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 - 10/20/2016 3:37 PM CST Clinic Full Note CHIEF COMPLAINT/REASON FOR VISIT Vaginal discharge and irritation . Was treated 1 month ago for bacterial vaginosis has not resolved. HISTORY OF PRESENT ILLNESS Dhiraj is a pleasant 21-year old female that presents to the clinic today with concerns regarding continued vaginal discharge and itching x 1 month. She reports that she was seen and treated for bacterial vaginosis a month ago, which helped the odor and discomfort, but she continues to have discharge and itching. She is sexually active and changed sexual partners 4-5 months ago. She is on OCP, but does not use condoms. Symptoms started about a month ago. No lumps or bumps. She has not tried anything qhzr-[id number] for symptoms. No fever or chills. No N/V/D. No abdominal pain. No urinary symptoms - no dysuria, frequency or urgency. No blood in urine. Normal menstrual periods. MEDICATIONS Advair Diskus 250 mcg-50 mcg inhalation [...] wisdom teeth (). SOCIAL HISTORY Date Time: 10/20/2016 14:57 Tobacco: Smoking Status: Former smoker Exposure: Care provider denies smoking in home, Other: former smoker Alcohol: Use: No Results Found Recreational Drugs: Use: None Type: No Results Found FAMILY HISTORY Grandmother (paternal):Positive: CA - Breast cancer; Diabetes mellitus Grandfather (paternal):Positive: Diabetes mellitus SYSTEMS REVIEW As per HPI, otherwise negative. VITAL SIGNS T: 36.9 ??C (Core) HR: 76 RR: 16 BP: 112 / 65 SpO2: 99% HT: 167 cm PHYSICAL EXAMINATION GENERAL: Patient is in no distress. Capable of full communication without difficulty. Patient is polite and cooperative. NEURO: Alert and oriented x3, nonfocal, moving all 4 extremities. CN II-XII grossly intact. NECK: No nodes noted. PELVIS: Normal external genitalia. No vaginal discharge. Mucosa moist and well rugated. Cervix is midline. Pap smear was not obtained today. No cervical motion tenderness. Anus appears normal. PSYCH: Mood and affect appropriate. LAB RESULTS -----MICROBIOLOGY----- Vaginitis Battery, DNA (Genital): POS for bacterial vaginosis and vaginal candidiasis IMPRESSION/REPORT/PLAN 1. Vaginosis Bacterial Flagyl prescribed for BV for 7 days. She was advised to abstain from alcohol while on this medication. Push fluids. Ordered: fluconazole, 150 mg = 1 tab(s), PO, Once, may repeat in 3 days if symptoms persist, # 2 tab(s), 0 Refill(s), Maintenance, Pharmacy: [facility] metroNIDAZOLE, 500 mg = 1 tab(s), PO, 2xDay, do not drink alcohol, x 7 day(s), # 14 tab(s), 0 Refill(s), Acute, Pharmacy: [facility] 2. Candidiasis Vulva Vagina Diflucan once for yeast infection, if symptoms persist past 3 days, may repeat dose. Push fluids. Ordered: fluconazole, 150 mg = 1 tab(s), PO, Once, may repeat in 3 days if symptoms persist, # 2 tab(s), 0 Refill(s), Maintenance, Pharmacy: [facility] metroNIDAZOLE, 500 mg = 1 tab(s), PO, 2xDay, do not drink alcohol, x 7 day(s), # 14 tab(s), 0 Refill(s), Acute, Pharmacy: [facility] Orders: Chlamydia Gonorrhoeae Amplified RNA-[place] CGRNA OV Est Pt Level 3 - 37610 - 15 min Patient was instructed to follow up in primary care if symptoms are worsening or there is no improvement over the next several days. Plan was discussed with patient and is in agreement with plan. All questions were answered. Patientleft in no acute distress. Ready to learn. No apparent learning barriers were identified. Learning preferences include listening. Explained diagnosis and treatment plan. Patient/Child/Caregiver expressed understanding of the content. Electronically Signed By: CHANDNI MATOS APRN, C.N.PGonzalo, D.N.P On: 10/21/2016 07:54 AM [facility] Document Id: [id number] SUPPORT WORKER documented in this encounter Miscellaneous Notes Miscellaneous - Chandni Matos APRN, Mitchell.N.PGonzalo, D.N.P. - 10/23/2016 7:38 AM HOME SUPPORT WORKER Results Notification Document Contains Addenda Addendum by TONIA HARRIS LPN on October 25, 2016 15:44:26 CDT pt notified. Addendum by TONIA HARRIS LPN on October 23, 2016 08:20:56 HOME SUPPORT WORKER left message for pt to call back clinic From: CHANDNI MATOS APRN, C.N.PGonzalo, D.N.P To: [facility] Nurse Mark; Sent: 10/23/2016 07:38:22 HOME SUPPORT WORKER Show up: 10/23/2016 07:38:00 HOME SUPPORT WORKER Subject: Results Notification Please notify patient and let her know that her chlamydia and gonorrhea is NEGATIVE. Results: Date Result Name Value Ref Range 10/20/2016 15:15 C trach Amp Src-[place] cervical 10/20/2016 15:15 C trach Amp RNA-[place] Negative (Negative - ) 10/20/2016 15:15 N gonor Amp DNA-[place] Negative (Negative - ) 10/20/2016 15:15 N gonor Amp Src-[place] cervical Source: [facility] POWERCHART Document Id: [id number] Miscellaneous - Chandni Matos APRN, C.N.PGonzalo, D.N.P. - 10/20/2016 5:05 PM HOME SUPPORT WORKER Results Notification Document Contains Addenda Addendum by TONIA HARRIS LPN on October 20, 2016 18:37:27 HOME SUPPORT WORKER pt notified of rresults. From: CHANDNI MATOS APRN, C.N.PGonzalo, D.N.P To: [facility] Family Medicine Nurse Mark; Sent: 10/20/2016 17:05:37 HOME SUPPORT WORKER Show up: 10/20/2016 17:03:00 HOME SUPPORT WORKER Subject: Results Notification Please notify patient that her vaginitis panel did come back POSITIVE for continued bacterial vaginosis and a yeast infection. I will send prescriptions over to her pharmacy for BOTH. Fluconazole once and Flagyl twice a day for 7 days - please advise her that she cannot consume any alcohol while taking Flagyl or she'll get very ill. Will get back to her on her other results when I get them back. Thanks. Results: Date Result Type Ind Result Name MBO POS Vaginosis Panel, DNA Source: [facility] WorkWith.meCHART Document Id: [id number] Miscellaneous - Chandni Matos APRN, C.N.P., D.N.P. - 10/20/2016 3:24 PM HOME SUPPORT WORKER Ambulatory Patient Summary [address] [id number] Visit Information Name: DHIRAJ LANDA [facility] Number: [id number] Current Date: 10/20/2016 15:24:11 Physicians Attending Provider: CHANDNI MATOS APRN C.N.P., D.N.P Primary Care Provider: AMANDA ARREOLA CINDER CRANE OPERATOR DHIRAJ LANDA PAWEL has been given the following list [...] needed for Shortness of breath / Wheezing fluticasone nasal (Flonase 0.05 mg/inh nasal spray) 2 [place](s), Nasal, two times a day fluticasone-salmeterol (Advair Diskus 250 mcg-50 mcg inhalation powder) 1 puff(s), Inhalation, two times a day levonorgestrel-ethinyl estradiol (Chateal 0.15 mg-30 mcg oral tablet) 1 Tablet(s), Oral, once a day traZODone (traZODone 50 mg oral tablet) 1 Tablet(s), Oral, once a day venlafaxine (Effexor XR 37.5 mg oral capsule, extended release) 1 cap, Oral, once a day Stop Taking the Following Medications: Medication list as of 10-20-16 15:24 Attention: If you have any medications at home that are not on this list, DO NOT take them until youcontact your provider for clarification. Give a copy of your medication list to your primary care provider. Update your medication list any time medications or doses are changed and carry your medication list at all times in case of emergency. Electronically Signed By: CHANDNI MATOS APRN, C.N.PGonzalo, D.N.P Signed On:20-OCT-2016 15:24:03 Your Allergies & Intolerances Substance Reaction Symptoms [...] online form. Youll be asked for your [facility] number which you can find at the top of this document. Your Goals/Additional instructions: Source: [facility] POWERCHART Document Id: [id number] SUPPORT WORKER Miscellaneous - Chandni Matos APRN, C.N.P., D.N.P. - 10/20/2016 3:24 PM HOME SUPPORT WORKER Ambulatory Discharge Medication List [address] [id number] Visit Information Name: DHIRAJ LANDA [facility] Number: [id number] Current Date: 10/20/2016 15:24:07 Attending Provider: CHANDNI MATOS APRN, C.N.P., D.N.P Primary Care Provider: AMANDA ARREOLA CINDER CRANE OPERATOR DHIRAJ LANDA has been given the following [...] needed for Shortness of breath / Wheezing fluticasone nasal (Flonase 0.05 mg/inh nasal spray) 2 [place](s), Nasal, two times a day fluticasone-salmeterol (Advair Diskus 250 mcg-50 mcg inhalation powder) 1 puff(s), Inhalation, two times a day levonorgestrel-ethinyl estradiol (Chateal 0.15 mg-30 mcg oral tablet) 1 Tablet(s), Oral, once a day traZODone (traZODone 50 mg oral tablet) 1 Tablet(s), Oral, once a day venlafaxine (Effexor XR 37.5 mg oral capsule, extended release) 1 cap, Oral, once a day Stop Taking the Following Medications: Medication list as of 10-20-16 15:24 Attention: If you have any medications at home that are not on this list, DO NOT take them until youcontact your provider for clarification. Give a copy of your medication list to your primary care provider. Update your medication list any time medications or doses are changed and carry your medication list at all times in case of emergency. Electronically Signed By: CHANDNI MATOS APRN C.N.PGonzalo, D.N.P Signed On:20-OCT-2016 15:24:03 Additional Information: Source: [facility] POWERCHART Document Id: [id number] SUPPORT WORKER Miscellaneous - Vinnie Lyman L.P.N. - 10/20/2016 2:57 PM CST Adult Access Lead Intake/History Adult Access Lead Intake/History Entered On: 10/20/2016 15:01 HOME SUPPORT WORKER Performed On: 10/20/2016 14:57 HOME SUPPORT WORKER by VINNIE LYMAN LPN Intake Chief Complaint : Vaginal discharge and irritation . Was treated 1 month ago for bacterial vaginosishas not resolved. Onset of Symptoms : ongoing Temperature Core : 36.9 DegC(Converted to: 98.4 DegF) Peripheral Pulse Rate : 76 /min Respiratory Rate : 16 /min Heart Rhythm : Regular Systolic Blood Pressure : 112 mmHg Diastolic Blood Pressure : 65 mmHg NIBP Mean : 81 mmHg BP Location : Left upper extremity Blood Pressure Cuff Size : Large SpO2 : 99 % Oxygen Therapy : Room air Height : 167 cm(Converted to: 5 ft 6 inch(es), 66 inch(es)) VINNIE LYMAN LPN - 10/20/2016 14:57 HOME SUPPORT WORKER General Info Languages : Hebrew Is Patient Female and 13-50 no hysterectomy : Yes Status : Patient denies Are you ? : No VINNIE LYMAN LPN - 10/20/2016 14:57 HOME SUPPORT WORKER Subjective Pain Symptoms : No VINNIE LYMAN LPN - 10/20/2016 14:57 HOME SUPPORT WORKER Dependent Habits Exposure to Tobacco Smoke : Care provider denies smoking in home, Other: former smoker Smoking Status : Former smoker Tobacco 2A : Yes Tobacco Use/Currently Using : No Tobacco Use/Last 30 Days : No Tobacco Use/Last 12 months : No VINNIE LYMAN LPN - 10/20/2016 14:57 HOME SUPPORT WORKER Caffeine Use Grid Caffeine Use : Current Type : Soft drinks Frequency : Occasionally VINNIE LYMAN LPN - 10/20/2016 14:57 HOME SUPPORT WORKER Recreational Drug Use Grid Drug Use : None VINNIE LYMAN LPN - 10/20/2016 14:57 HOME SUPPORT WORKER [facility] Document Id: [id number] HOME SUPPORT WORKER!38 SUPPORT WORKER documented in this encounter Plan of Treatment Not on filedocumented as of this encounter Procedures Procedure Name Priority Date/Time Associated Diagnosis Comme nts VAGINITIS BATTERY, Routine 10/20/2016 3:28 PM Res ults for this DNA (GENITAL) HOME SUPPORT WORKER procedure are in the results section. N GONOR AMP SRC Routine 10/20/2016 3:15 PM Result s for this HOME SUPPORT WORKER procedure are i n the results section. N GONOR AMP DNA Routine 10/20/2016 3:15 PM Result s for this HOME SUPPORT WORKER procedure are i n the results section. C TRACH AMP SRC Routine 10/20/2016 3:15 PM Result s for this HOME SUPPORT WORKER procedure are i n the results section. C TRACH AMP RNA Routine 10/20/2016 3:15 PM Result s for this HOME SUPPORT WORKER procedure are i n the results section. documented in this encounter Results (ABNORMAL) VAGINITIS BATTERY, DNA (GENITAL) (10/20/2016 3:28 PM HOME SUPPORT WORKER) Component Value Ref Test Analysis Performed At [facility] gist Range Method Time Signature HXVaginitis (POSITIVE) POWERCHART Battery, DNA (Genital) HXFinal Trichomonas POWERCHART vaginalis DNA negative HXFinal Gardnerella POWERCHART vaginalis DNA positive HXFinal Veronica species POWERCHART DNA positive HXFinal Reference: POWERCHART Negative Specimen (Source) Anatomical Collection Method Collection Time Re ceived Time Location / / Volume Laterality Vagina 10/20/2016 3:28 PM HOME SUPPORT WORKER Chandni Matos APRN, C.N.P., D.N.P. LAB HISTORICAL OR DERS Performing Organization Address City/[facility] Phon e Number POWERCHART HX-N gonor Amp DNA (10/20/2016 3:15 PM HOME SUPPORT WORKER) athologist Signature HXN gonor Amp Negative POWERCHART DNA-[place] Specimen (Source) Anatomical Collection Method Collection Time Re ceived Time Location / / Volume Laterality 10/20/2016 3:15 PM HOME SUPPORT WORKER Narrative POWERCHART - 10/22/2016 2:47 PM HOME SUPPORT WORKER ADDITIONAL INFORMATION This report is intended for use in clini hernandez monitoring and management of patients. It is not in tended for use in medical-legal applications. Test Performed by: [facility] - [address] [address] Chandni Matos APRN C.N.P., D.N.P. LAB HISTORICAL OR DERS Performing Organization Address City/[facility] Code Phon e Number POWERCHART HX-N gonor Amp Src (10/20/2016 3:15 PM HOME SUPPORT WORKER) athologist Signature HXN gonor Amp cervical POWERCHART Src-[place] Specimen (Source) Anatomical Collection Method Collection Time Re ceived Time Location / / Volume Laterality 10/20/2016 3:15 PM HOME SUPPORT WORKER Chandni Matos APRN C.N.P., D.N.P. LAB HISTORICAL OR DERS Performing Organization Address City/[facility]/ZIP Code Phon e Number POWERCHART HX-C trach Amp RNA (10/20/2016 3:15 PM HOME SUPPORT WORKER) Patholo gist Method Time Signature Chlamydia Negative POWERCHART trachomatis amplified RNA Specimen (Source) Anatomical Collection Method Collection Time Re ceived Time Location / / Volume Laterality 10/20/2016 3:15 PM HOME SUPPORT WORKER Narrative POWERCHART - 10/22/2016 2:47 PM HOME SUPPORT WORKER ADDITIONAL INFORMATION This report is intended for use in clini hernandez monitoring and management of patients. It is not in tended for use in medical-legal applications. Chandni Matos APRN, C.N.P., D.N.P. LAB HISTORICAL OR DERS Performing Organization Address City/[facility]/ZIP Code Phon e Number POWERCHART HX-C trach Amp Src (10/20/2016 3:15 PM HOME SUPPORT WORKER) P athologist Signature HXC trach Amp cervical POWERCHART Src-[place] Specimen (Source) Anatomical Collection Method Collection Time Re ceived Time Location / / Volume Laterality 10/20/2016 3:15 PM HOME SUPPORT WORKER Chandni Matos APRN, C.N.P., D.N.P. LAB HISTORICAL OR DERS Performing Organization Address City/State/ZIP Code Phon e Number POWERCHART documented in this encounter Visit Diagnoses Not on filedocumented in this encounter
--- OUTSIDE RECORDS SUMMARY | 2022-04-07 13:17 | XMS_ITS | Encounter Summary ---
:1995 Author Organization [facility] Address [address] [place] [address] Care Team Providers Name Role Phone Holley Arreola APRN, C.N.P. Primary Care Provider [phone] Encounter Details Date Type Department Care Team Description 06/02/2017 Hospital Encounter HX [facility] [place] [facility] ME Francisca Arreola APRN, C.N.P. [address] [place], [place] [address] (Wo rk) Social History [...] How often do you attend amish or advent Never 10/23/2020 services? 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 - 06/02/2017 8:28 AM CDT Clinic Full Note CHIEF COMPLAINT/REASON FOR VISIT Hip pain. HISTORY OF PRESENT ILLNESS Carly is a very pleasant 22-year-old female who comes into the clinic today with concerns relatedto left hip pain for at least 5 months. She denies any known injury. 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 She reports her left hip pain is worse during her work shifts. She describes a sharp/shooting painrelated to her left hip. She denies any concerns with ambulation. She denies any concerns with her right hip. She denies any concerns with sleep. She is here today for further evaluation. [...] wisdom teeth (). SOCIAL HISTORY Date Time: 06/02/2017 08:01 Tobacco: Smoking Status: Current every day smoker Exposure: Care provider denies smoking in home, Patient smokes Alcohol: Use: Yes Recreational Drugs: Use: None Type: No Results Found FAMILY HISTORY Grandmother (paternal):Positive: CA - Breast cancer; Diabetes mellitus Grandfather (paternal):Positive: Diabetes mellitus SYSTEMS REVIEW As per HPI. VITAL SIGNS T: 36.5 ??C (Core) HR: 76 RR: 16 BP: 113 / 53 SpO2: 99% HT: 166 cm WT: 97 kg BMI: 35.2 PHYSICAL EXAMINATION CONSTITUTIONAL: Alert and oriented. No acute distress. HEAD: Normocephalic/atraumatic. MUSCULOSKELETAL: No neurovascular compromise. No cyanosis, clubbing or edema. Left/right hip with full ROM. BACK: No paraspinal tenderness. NEUROLOGICAL: Cranial nerves II-VII grossly intact and symmetric. He ambulates with a steady gait. PSYCHIATRIC: Cooperative. Affect appropriate. IMPRESSION/REPORT/PLAN Pain Hip L I ordered a physical therapy consult for further evaluation. She was instructed to use OTC pain analgesics, ice/heat and topical pain analgesics for symptom management. She was instructed to contact the clinic with worsening or no improvement in symptoms. All questions were answered. She left in no acute distress. Ordered: OV Est Pt Level 3 - 18176 - 15 min Orders: Physical Therapy Referral Consult and Treat Electronically Signed By: HOLLEY ARREOLA CNP RN On: 06/02/2017 08:38 AM Source: [facility] POWERCHART Document Id: [id number] documented in this encounter Miscellaneous Notes Miscellaneous - Dorian Davenport, L.P.N. - 06/02/2017 8:01 AM CDT Adult Otolaryngology Physician Intake/History Adult Otolaryngology Physician Intake/History Entered On: 06/02/2017 8:06 CDT Performed On: 06/02/2017 8:01 CDT by DORIAN DAVENPORT MAT CUTTER Intake Chief Complaint : Left hip pain. Onset of Symptoms : December 2016 Ambulatory Intake Additional Information : Difficulty standing and lifting. 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 Temperature Core : 36.5 DegC(Converted to: 97.7 DegF) Peripheral Pulse Rate : 76 /min Respiratory Rate : 16 /min Systolic Blood Pressure : 113 mmHg Diastolic Blood Pressure : 53 mmHg NIBP Mean : 73 mmHg BP Location : Left upper extremity Blood Pressure Cuff Size : Large SpO2 : 99 % Oxygen Therapy : Room air Height : 166 cm(Converted to: 5 ft 5 inch(es), 65 inch(es)) Actual Weight : 97 kg(Converted to: 213 lb 14 oz) Weight Source : Standing scale Dosing Weight Clinic : 97 kg Clinic BSA : 2.11 Body Mass Index : 35.2 kg/m2 DORIAN DAVENPORT LPN 06/02/2017 8:01 CDT General Info Information Given By : Patient Preferred Communication Mode : Verbal Languages : Japanese Is Patient Female and 13-50 no hysterectomy : Yes Status : Patient denies Are you ? : No DORIAN DAVENPORT LPN 06/02/2017 8:01 CDT Subjective Pain Symptoms : Yes DORIAN DAVENPORT LPN 06/02/2017 8:01 CDT Pain Scale Pain Scale Verbal 0-10 : Open DORIAN DAVENPORT LPN 06/02/2017 8:01 CDT Pain Pain Assessment Grid Pain 1 Location : Hip Laterality : Left Intensity : 10 Onset : Gradual Quality : Sharp Aggravating Factors : Movement Alleviating Factors : Rest DORIAN DAVENPORT LPN 06/02/2017 8:01 CDT Dependent Habits Exposure to Tobacco Smoke : Care provider denies smoking in home, Patient smokes Smoking Status : Current every day smoker Tobacco 2A : Yes Tobacco Use/Currently Using : Yes Tobacco Use/Last 30 Days : Yes Tobacco Use/Last 12 months : Yes Tobacco Last Use/Month : July Tobacco Last Use/Year : 2015 Type : Cigarettes: Less than 20 per day Tobacco Use/Advised to Quit : No Alcohol Use : Yes DORIAN DAVENPORT LPN 06/02/2017 8:01 CDT Caffeine Use Grid Caffeine Use : Current Type : Soft drinks Frequency : Occasionally DORIAN DAVENPORT LPN 06/02/2017 8:01 CDT Recreational Drug Use Grid Drug Use : None DORIAN DAVENPORT LPN 06/02/2017 8:01 CDT Source: [facility] POWERCHART Document Id: [id number] CDT!62 documented in this encounter Plan of Treatment Not on filedocumented as of this encounter Visit Diagnoses Not on filedocumented in this encounter Additional Health Concerns Assessment Noted Time PHQ-9 Depression Total Score: 18 04/05/2017 2:38 PM CD T documented as of this encounter Care Teams Franchise Broker Relationship Specialty Start Date End Date Holley Arreola APRN, C.N.P. PCP - General 01/27/17 12/09/17 documented as of this encounter
--- OUTSIDE RECORDS SUMMARY | 2022-04-07 13:17 | XMS_ITS | Encounter Summary ---
:1995 Author Organization [facility] Address [address] [place] [address] Care Team Providers Name Role Phone Holley Saucedo APRN, C.N.P. Primary Care Provider Reason for Visit Reason Comments Communication Quantiferon-TB lab Encounter Details Date Type Department Care Team Description 08/16/2017 Clinical Department of [facility], (Quantifer on-TB lab) [place] [facility], C[facility], in [address] [phone] [place], [place] (Work) [phone] Social History Tobacco Use [...] How often do you attend temple or zoroastrianism Never 10/23/2020 services? 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 - 09/09/2017 12:21 PM ENGRAVER [employer] Called pt with message from provider. Pt stated understanding and transferred to front dest to schedule lab visit. [employer] Telephone Encounter - Holley Saucedo APRN, C.N.P. - 09/09/2017 11:14 AM ENGRAVER [employer]AMES Please call patient and let her know that I ordered the QuantiFERON-TB lab test, so she can come in anytime to complete this screen. Thanks! [employer] Telephone Encounter - Edith Corona R.N. - 09/09/2017 11:05 AM ENGRA[employer]AMES Please advise if willing to order based on message below. [employer] Telephone Encounter - Felisha Dumont - 09/09/2017 10:34 AM CST Patient called and needs an order for a quanteferon lab draw in place of a TB test. Patient states she dose not have time for the TB test. Patient could also have a T spot. Patient can be reached at [phone] [employer] documented in this encounter Plan of Treatment Not on filedocumented as of this encounter Results QuantiFERON-TB Gold In-Tube for Detection of Latent Tuberculosis (09/12/2017 4:45 PM ENGRAVER [employer]AMES) athologist Signature QuantiFERON-TB Negative Negative 09/15/2017 [facility] Gold Result 1:25 PM [facility] Comment: No interferon-gamma response to M. tuber culosis antigens was detected. Infection with M. tubercul osis is unlikely. A negative result alone does not exclude infection with M. tuberculosis. For detailed information regarding test interpretation see: [email or web address] Clinical+and+Interpretive/30859 TB Ag minus Nil Result 0.01 IU/mL 09/15/2017 1:25 P M [facility] Mitogen minus Nil >10.00 IU/mL 09/15/2017 1:25 PM [facility] Nil Result 0.02 IU/mL 09/15/2017 1:25 PM [facility] Specimen Anatomical Collection Method Collection Time Receive d Time (Source) Location / / Volume Laterality Blood (Blood, 09/12/2017 4:45 PM 09/13/19 18 3:58 Venous) [employer] PM [employer] Narrative [facility] - 09/15/2017 1:25 PM ENGRA[employer] Specimen Information: Specimen ID: [id number] Specimen Type: Blood Specimen Collection Start Date: 09/12/19 18 ??4:45 PM Specimen Received Date: 09/13/2017 ??3:5 8 PM Specimen ID: [id number] Specimen Type: Blood Specimen Collection Start Date: 09/12/19 18 ??4:45 PM Specimen Received Date: 09/13/2017 ??3:5 8 PM Specimen ID: [id number] Specimen Type: Blood Specimen Collection Start Date: 09/12/19 18 ??4:45 PM Specimen Received Date: 09/13/2017 ??3:5 8 PM Holley Saucedo APRN, C.N.P. LAB MICROBIOLOGY - BLOO D ORDERABLES Performing Organization Address [facility]/State/ZIP Code Phon e Number [facility] [address] [facility] [place] [address] [facility] documented in this encounter Visit Diagnoses Diagnosis Immunity Disorder Screening Exam - Prima ry Immunity Disorder Screening Exam documented in this encounter Additional Health Concerns Assessment Noted Time PHQ-9 Depression Total Score: 17 07/12/2017 10:[address] documented as of this encounter Care Teams Oyster Picker Relationship Specialty Start Date End Date Holley Saucedo APRN, C.N.P. PCP - General 01/27/17 12/09/17 documented as of this encounter
--- OUTSIDE RECORDS SUMMARY | 2022-04-07 13:17 | XMS_ITS | Encounter Summary ---
:1995 Author Organization [facility] Address [address] [place] [address] Care Team Providers Name Role Phone Holley Arreola APRN, C.N.P. Primary Care Provider [phone] Encounter Details Date Type Department Care Team Description 06/13/2017 - [facility] Holley Arreola 06/24/2017 CHRISTOPHER Baker APRN, C.N.P. [address] [place], [place] [phone] Social History Tobacco Use Types Packs/Day Years [...] How often do you attend spiritism or yazidism Never 10/23/2020 services? 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 - 06/17/2017 2:11 PM CDT PHYSICAL THERAPY NOTE CHIEF COMPLAINT Patient reports that her hip pain has decreased since our first session. Patient has been doing her stretches and exercises and tolerating well. She tolerated her session well today. TREATMENT Patient started the session on the sciFIT at level 2. Patient did this for 8 minutes and tolerated well. Patient then was brought back to the treatment room and stretch her hip flexors and quads in supine position over the edge of the table. The ended distal hamstring stretch in the 90 90 position of bilateral lower extremities. Patient then was progressed with long axis distraction of the left lowerextremity. We did assess her posture in standing to make sure everything was aligned patient looked to be aligned as best as possibly able to see. Patient then walked after she did the long axis distraction and she felt good. We progressed exercise program with the doorway stretch for the hamstrings, the adductor stretch on her back on the floor, and educated her on nerve glides for the sciatic nerve. ASSESSMENT/PLAN Will continue to progress patient with the current plan of care. Patient was seen today for a total of 30 minutes. Electronically Signed By: JIMMY WADE DPT On: 06/17/2017 02:13 PM Source: [employer] Document Id: [id number] documented in this encounter H&P Notes Jimmy Wade PGonzaloT. - 06/13/2017 4:12 PM CDT REHAB SNAPSHOT ORDERS: Left hip pain x 5 months CONTRAINDICATIONS OR SPECIAL INSTRUCTIONS: None VIST #: 1 INSURANCE: Medicaid POC DATE RANGE: 06/13/2017 through 07/11/2017 ONSET DATE: 5 months ago PROVIDER: Holley Arreola NP PROVIDER FOLLOW UP: None MEDICAL DIAGNOSIS: Left hip pain PHYSICAL THERAPY INITIAL EVALUATION AND PLAN OF CARE SUBJECTIVE ONSET/ETIOLOGY/CHIEF COMPLAINT: Patient reported onset of left hip pain about 5 months ago. There was no injury. Her hip pain is limited to the time that she is at work and then it lasts through the night. She normally goes to work about 6:00 a.m. in the pain started about 8:00 a.m.. 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 The pain is been staying the same and not getting any better. 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 She has to bend over constantly to do shoes and socks. This is when she gets the most pain. She also has left knee clicking/snapping which is nonpainful. She also feels slight numbness over the anterior left knee and distal quad. She reports the snapping is been going on since he was a teenager. She has had no history of injuries to the back or the legs. She does take Tylenol and uses deep blue essential oils. Patient also sec chiropractor 1 time a week for low back and hip pain. Patient also reported that with lumbar x-ray from the chiropractor they noted that she has an additional lumbar segment. CURRENT PAIN/PRESENTATION/CURRENT FUNCTIONAL LIMITATIONS: Patient is is limited in her daily workingduties due to the ongoing pain. PRIOR LEVEL OF FUNCTION: Independent CURRENT/PREVIOUS INTERVENTIONS: Heat, Tylenol, essential oils PATIENTS GOAL FOR THERAPY: Decreased pain MEDICATIONS:Medications include Effexor, Ventolin HFA, Chateal, trazodone, Flonase PAST MEDICAL HISTORY: Asthma, depression, hypertension FUNCTIONAL QUESTIONNAIRES: Patient filled out the hip outcome questionnaire, this will be scanned into the EMR. OBJECTIVE OBSERVATION/ORIENTATION: Patient was in no acute distress. She is oriented x3. MUSCULOSKELETAL SYSTEM: POSTURE: Patient sits and stands with slouched posture GAIT: Patient ambulates with the left lower extremity having audible snap pain in the left hip. Shehad had was coming from her knee but with lifting and walking with her during gait it sounded as if it is coming from her hip. FALL SCREEN: Not assessed RANGE OF MOTION: Patient's hip flexion and internal rotation is limited due to hip pain. She is pain-free on the right lower extremity. Reassess tightness in the left lower extremity and patient hamstrings are significantly tight in both distal and proximal aspects. IT band on the left was also tight. As well as tightness in hip flexors. MUSCLE PERFORMANCE: Patient with 5/5 globally with some pain and discomfort with hip adduction resistance. JOINT PLAY: Not assessed FUNCTIONAL: Not assessed PALPATION: Patient has some pain over the lateral greater trochanteric, the left piriformis, the left SI joint. Some minor discomfort at the upper lumbar spine. SPECIAL TESTS PERFORMED: Patient had a positive Michelle's test on left lower extremity compared to the right lower extremity. Assessed straight leg test in supine, patient had decreased pain with gentleanterior compression of the iliac crests and no change with posterior compression; positive distraction test. Negative side-lying compression test. And a positive hip scour test. 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 Patient will benefit from skilled physical therapy in order to address these limitations. She also has a significant lower extremity muscle imbalance. PHYSICAL THERAPY PROGNOSIS: Good PERSONAL/SOCIAL FACTORS THAT IMPACT PLAN OF CARE: Profession COMORBIDITIES THAT IMPACT PLAN OF CARE: None PATIENTS CLINICAL PRESENTATION: STABLE CLINICAL DECISION MAKING: LOW FUNCTIONAL LIMITATION REPORTING FUNCTIONAL LIMITATION CATEGORY: Not required CURRENT STATUS:[] GOAL STATUS:[] DISCHARGE STATUS:[] CERTIFICATION DATES:[] HOW SEVERITY RANGE WAS DETERMINED:[] TREATMENT PROCEDURAL INTERVENTIONS: In session we did resisted left hip flexion and right lower extremity extension x3 bouts of 3 second hold. Within abduction isometric. Patient then stood and walked was able to feel slightly better with decreased hip pain. 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 Patient was also given stretches for global stretching her on the left hip including ITP band stretch, hip flexor stretch, hamstring stretch, and piriformis stretch. She is also given hip flexion isometric for the left lower extremity if her hip is getting sore. HOME EXERCISE PROGRAM/HANDOUTS: Sheet given EDUCATION: Home exercise program PHYSICAL THERAPY GOALS SHORT TERM GOALS: To be met within 2 weeks: Patient will have a 20% reduction in pain within 2 weeksin the left hip. 2. Patient will be compliant with work restriction and able to tolerate full days of work without pain or discomfort. BRUSHER HAND FUNCTIONAL GOALS: To be met within 4 weeks: Patient will be able to bend down to the floorand squat without pain or discomfort in the left hip. 2. Patient will be able to lift 15 lb from floor to waist height without pain or discomfort in left hip. 3. Patient will to walk for 15 minutes pain or discomfort left hip. 4. Patient will be independent in home exercise program. PLAN OF CARE SKILLED PHYSICAL THEARAPY IS NECESSARY TO ACHIEVE GOALS AND FUNCTIONAL OUTCOMES. PROCEDURAL INTERVENTIONS TO INCLUDE: Therapeutic exercises, therapeutic activities, manual therapies. FREQUENCY/DURATION: 2 times a week for 4 weeks REFERRAL: Will be made back to referring provider as necessary. PATIENT CONSENT TO EVALUATION AND PLAN OF CARE: Yes Patient is ready to learn, no apparent noting barriers were identified, learning preferences includelistening, explained treatment plan and home exercise program, patient expressed understanding of the content. Patient is seen today for 42 minutes of evaluation and 10 minutes of therapeutic exercise JIMMY WADE, DPT, CLT Electronically Signed By: JIMMY WADE DPT On: 06/13/2017 04:38 PM Co-Signed By: HOLLEY ARREOLA CNP, RN On: 06/13/2017 08:06 PM Source: [facility] [employer] Document Id: [id number] documented in this encounter Miscellaneous Notes Miscellaneous - Holley Arreola C.N.P., R.N. - 06/15/2017 8:16 PM CDT Provider Letter June 15, 2017 [address]DA [address] [place] [phone] Dear DHIRAJ LANDA, To whom it may concern: Please allow Dhiraj Landa to sit on a stool/chair related to her work duties to alleviate theneed for squatting or repetitive bending until further notice. Sincerely, HOLLEY ARREOLA [address] [id number] Electronic Signature Electronically Signed By: HOLLEY ARREOLA CNP, RN On: June 15, 2017 This document has images extracted. Source: [facility] [employer] Document Id: [id number] Miscellaneous - Conversion, Historical Provider Ser - 06/15/2017 11:02 AM CDT Coding Summary-Paper Based CODING DATE: 06/15/2017 FINAL [place] [facility] STATUS: Still Patient/Expected to Rtn [facility] PAYOR: Medicaid ADMIT DX: REASON FOR VISIT DX: FINAL DX: PRINCIPAL: M25.552 Pain in left hip SECONDARY: PROCEDURES DOCTOR NAME DATE NOTE: The code number assigned matches the documented diagnosis and / or procedure in the patient's chart. However, the narrative phrase printed from the coding software may appear abbreviated, or result in slightly different terminology. Coded By: MARIA L ALSTON Date Saved: 06/15/2017 11:02 am [facility]: [facility] Document Id: [id number] Miscellaneous - Jimmy Wade, P.T. 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 Attempted to leave VM on patient's phone, mailbox is full. Addendum by HOLLEY ARREOLA CNP, RN on June 15, 2017 20:19:24 CDT From: HOLLEY ARREOLA CNP, RN To: [facility] Nurse Mitesh; Sent: 06/15/2017 20:19:24 CDT Subject: RE: *General Message Please see message below and print letter from 06/15/17. Thanks! Addendum by HOLLEY ARREOLA CNP, RN on June 15, 2017 20:18:48 CDT From: HOLLEY ARREOLA CNP, RN To: JIMMY WADE DPT; Sent: 06/15/2017 20:18:48 CDT Subject: RE: *General Message Sorry! Please ignore this message. Thanks! Addendum by HOLLEY ARREOLA CNP RN on June 15, 2017 20:18:06 CDT From: HOLLEY ARREOLA CNP, RN To: JIMMY WADE DPT; Sent: 06/15/2017 20:18:06 CDT Subject: RE: *General Message Please print letter on 06/15/17 in chart review related to work restrictions and contact patient to fax or hop picker. Thanks! From: JIMMY WADE DPT To: HOLLEY ARREOLA CNP, RN; Sent: 06/14/2017 13:51:08 CDT Subject: *General Message Actions: Notify patient- refer to General Message Holley, I evaluated Dhiraj and I would like her to have restrictions for work. 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 Please have a nurse fax this to her or call her so she can hop picker the restrictions at our next session. Thanks! Jimmy Source: [facility] [employer] Document Id: [id number] documented in this encounter Plan of Treatment Not on filedocumented as of this encounter Visit Diagnoses Not on filedocumented in this encounter Additional Health Concerns Assessment Noted Time PHQ-9 Depression Total Score: 18 04/05/2017 2:38 PM CD T documented as of this encounter Care Teams Guest Services Assistant Relationship Specialty Start Date End Date Holley Arreola, MAYONNAISE MIXER, C.N.P. PCP - General 01/27/17 12/09/17 documented as of this encounter
--- OUTSIDE RECORDS SUMMARY | 2022-04-07 13:18 | XMS_ITS | Encounter Summary ---
:1995 Author Organization [facility] Address [address] [place] [address] Care Team Providers Name Role Phone Unavailable Primary Care Provider Unavailable Encounter Details Date Type Department Care Team Description 04/29/2014 Hospital Encounter HX [facility] Stephanie Ge M.D. 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 Last Filed Vital Signs Vital Sign Reading Time Taken Comments Blood Pressure 103/64 04/29/2014 11:08 AM CDT Pulse 76 04/29/2014 11:08 AM CDT Temperature - - Respiratory Rate 16 04/29/2014 11:08 AM CDT Oxygen Saturation - - Inhaled Oxygen Concentration - - Weight 91.4 kg (201 lb 8 oz) 04/29/2014 11:08 AM CDT Height 164 cm (5' 4.57) 04/29/2014 11:08 AM CDT Body Mass Index 33.98 04/29/2014 11:08 AM CDT documented in this encounter Medications at Time of Discharge Medication Sig Dispensed Refills Start Date End Date albuterol (for_ACCUNEB) one unit dose qid 0 12/0409/25/2018 2.5 mg /3 mL nebulizer and q2hr prn solution fluticasone-salmeterol Inhale 1 puff. 0 2 11/04/2017 (for_ADVAIR DISKUS) 250-50 mcg/dose diskus inhaler montelukast Take 10 mg by mouth. 0 03/22/2013 (for_SINGULAIR) 10 mg tablet montelukast (SINGULAIR) Take 10 mg by mouth 0 03/201302/19/2019 10 mg tablet as directed. prenat.vits,hernandez,min-iron- Take 1 tablet by 0 /0 01/201410/06/2017 folic ( VITAMIN) mouth. tablet prenat.vits,hernandez,min-iron- Take 1 tablet by 0 /0 01/201402/19/2019 folic ( VITAMIN) mouth daily. tablet documented as of this encounter H&P Notes Stephanie Ge M.D. - 04/29/2014 10:49 AM CDT [id number] Dhiraj is here for a pre-employment physical. She is going to be working here in [employer]. The completed form will be scanned into her EMR. I see no problems with her employment here. Stephanie Ge M.D./antonia Electronically Signed By: STEPHANIE GE MD On: 04/29/2014 01:34 PM Source: [facility] MHSDOLBEYNONRADSYS Document Id: [id number] documented in this encounter Miscellaneous Notes Miscellaneous - Stephanie Ge M.D. - 04/29/2014 11:59 AM CDT Ambulatory Patient Summary [address] [place] [id number] Visit Information Name: DHIRAJ LANDA [facility] Number: [id number] Current Date: 04/29/2014 11:59:11 Physicians Attending Provider: STEPHANIE GE MD Primary Care Provider: PCP, UNASSIGNED - RW DHIRAJ LANDA has been given the following [...] Indications/Special Instructions/Comments/Notes for Patient Medication Changes/Routing albuterol (albuterol 90 mcg/inh inhalation aerosol) See Instructions, as needed for Shortness of breath / Wheezing 1-2 puffs Inhalation q4-6hr as needed for asthma albuterol-ipratropium (DuoNeb inhalation solution) 1 Each, Nebulized inhalation, four times a day asneeded for Shortness of Breath fluticasone nasal (Flonase 0.05 mg/inh nasal spray) 2 Lincoln(s), Nasal, two times a day fluticasone-salmeterol (Advair Diskus 250 mcg-50 mcg inhalation powder) 1 puff(s), Inhalation, two times a day multivitamin, ( Multivitamins) See Instructions 1 tab daily Stop Taking the Following Medications: Medication list as of 04-29-14 11:59 Attention: If you have any medications at home that are not on this list, DO NOT take them until youcontact your provider for clarification. Give a copy of your medication list to your primary care provider. Update your medication list any time medications or doses are changed and carry your medication list at all times in case of emergency. Electronically Signed By: STEPHANIE GE MD Signed On:29-APR-2014 11:58:51 Your Allergies & Intolerances Substance Reaction Symptoms Category Comments Suprax Unknown Drug Unknown reaction as a child Your Problem List Problem Status Onset Comments Asthma NOS (493.90) Active 05/01/12 unknown date of dx; 12/26/13 Exercise induced Supervision of Normal First Active 06/06/2013 11/10/13 Supervision of normal first 08/02/13 Urine culture: negative profile not seen on sono: f/u ordered Carrier Group B Streptococcus Active Delivery Vaginal Normal Spontaneous () Active Hypertension HTN Gestational (PIH) Delivered Active Your Upcoming Appointments Date Time Location Provider 05/01/2014 13:45 [facility] Nurse Attention: Contact your local Clinic if further appointment detail needed. Your Goals/Additional instructions: Source: [facility] POWERCHART Document Id: [id number] Miscellaneous - Stephanie Ge M.D. - 04/29/2014 11:59 AM CDT Ambulatory Discharge Medication List [address] [id number] Visit Information Name: DHIRAJ LANDA [facility] Number: [id number] Visit Date: 04/29/2014 11:59:09 Attending Provider: STEPHANIE GE MD Primary Care Provider: PCP, UNASSIGNED - RW DHIRAJ LANDA has been given the following list of medications: Your Medications It is important to take your medications as directed. Use a pill box or chart to help remind you to take your medications. Please let your doctor or nurse know if you have problems taking your medications. Medication/Strength How to Take Indications/Special Instructions/Comments/Notes for Patient Medication Changes/Routing albuterol (albuterol 90 mcg/inh inhalation aerosol) See Instructions, as needed for Shortness of breath / Wheezing 1-2 puffs Inhalation q4-6hr as needed for asthma albuterol-ipratropium (DuoNeb inhalation solution) 1 Each, Nebulized inhalation, four times a day asneeded for Shortness of Breath fluticasone nasal (Flonase 0.05 mg/inh nasal spray) 2 Lincoln(s), Nasal, two times a day fluticasone-salmeterol (Advair Diskus 250 mcg-50 mcg inhalation powder) 1 puff(s), Inhalation, two times a day multivitamin, ( Multivitamins) See Instructions 1 tab daily Stop Taking the Following Medications: Medication list as of 04-29-14 11:59 Attention: If you have any medications at home that are not on this list, DO NOT take them until youcontact your provider for clarification. Give a copy of your medication list to your primary care provider. Update your medication list any time medications or doses are changed and carry your medication list at all times in case of emergency. Electronically Signed By: STEPHANIE GE MD Signed On:29-APR-2014 11:58:51 Additional Information: Source: [facility] POWERCHART Document Id: [id number] Miscellaneous - Consuelo Dia L.PGonzaloN. 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 Temperature Core : 36.3 DegC(Converted to: 97.3 DegF) (LOW) Limb Alert : Left Peripheral Pulse Rate : 76 /min Respiratory Rate : 16 /min Heart Rhythm : Regular Systolic Blood Pressure : 103 mmHg Diastolic Blood Pressure : 64 mmHg NIBP Mean : 77 mmHg BP Location : Left upper extremity Blood Pressure Cuff Size : Large Height : 164 cm(Converted to: 5 ft 5 inch(es), 65 inch(es)) Actual Weight : 91.4 kg(Converted to: 201 lb 8 oz) Weight Source : Standing scale Dosing Weight Clinic : 91.4 kg Clinic BSA : 2.04 Body Mass Index : 33.98 kg/m2 CONSUELO DIA LPN - 04/29/2014 11:08 CDT General Info Information Given By : Patient Languages : Turkmen Is Patient Female and 13-50 no hysterectomy : Yes Status : Patient denies Are you ? : No CONSUELO DIA Dusty BASE FILLER - 04/29/2014 11:08 CDT Subjective Pain Symptoms : No LAWSONCONSUELO WILLARD Dusty BASE FILLER - 04/29/2014 11:08 CDT Dependent Habits Tobacco Use/Currently Using : No Exposure to Tobacco Smoke : Care provider denies smoking in home, Other: former smoker Smoking Status : Never smoker CONSUELO DIA Dusty [facility] - 04/29/2014 11:08 CDT Tobacco Use Grid Last Use : never LAWSONRADHACONSUELO VOGT LPN - 04/29/2014 11:08 CDT Caffeine Use Grid Caffeine Use : Current Type : Soft drinks Frequency : Occasionally IFEOMA CONSUELO Dusty BASE FILLER - 04/29/2014 11:08 CDT Recreational Drug Use Grid Drug Use : None CONSUELO DIA BASE FILLER - 04/29/2014 11:08 CDT [facility] Document Id: [id number] CDT!42 documented in this encounter Plan of Treatment Not on filedocumented as of this encounter Procedures Procedure Name Priority Date/Time Associated Comments Diagnosis URINALYSIS, ROUTINE Routine 04/29/2014 11:53 AM R esults for this CDT procedure are i n the results section. URINE MICROSCOPIC Routine 04/29/2014 11:53 AM Res ults for this CDT procedure are i n the results section. documented in this encounter Results Urine Microscopic (04/29/2014 11:53 AM CDT) [facility] gist Method Time Signature HXUR WBC. Occ-3 HPF POWERCHART HXUR RBC. None Seen HPF POWERCHART HXUR Bacteria, None Seen POWERCHART Squamous Occ-3 HPF POWERCHART Epithelial Specimen Anatomical Collection Method Collection Time Receive d Time (Source) Location / / Volume Laterality Urine 04/29/2014 11:53 04/29/2014 AM CDT 11:53 AM CDT Stephanie eG M.D. LAB URINE ORDERABLES Performing Organization Address City/State/ZIP Code Phon e Number POWERCHART (ABNORMAL) Urinalysis, Routine (04/29/2014 11:53 AM CDT) [facility] Method Time Signature Source Clean Void POWERCHART Urine HXUr Color Yellow POWERCHART Clarity Clear POWERCHART Glucose Negative MGDL POWERCHART HXBILIRUBIN Negative POWERCHART Ketones, QL(U) Negative MGDL POWERCHART Specific 1.020 POWERCHART [place], POCT, U pH, POCT, Urine 6.5 POWERCHART Protein, Ur, Dip Negative MGDL POWERCHART Urobilinogen 0.2 MGDL POWERCHART HXNITRITE Negative POWERCHART HXBLOOD Negative POWERCHART Leukocyte Small (A) POWERCHART Esterase Specimen (Source) Anatomical Collection Method Collection Time Re ceived Time Location / / Volume Laterality Urine 04/29/2014 11:53 AM CDT Stephanie Ge M.D. LAB URINE ORDERABLES Performing Organization Address [facility] Phon e Number POWERCHART documented in this encounter Visit Diagnoses Not on filedocumented in this encounter
--- OUTSIDE RECORDS SUMMARY | 2022-04-07 13:18 | XMS_ITS | Encounter Summary ---
:1995 Author Organization [facility] Address [address] [place] [address] Care Team Providers Name Role Phone Unavailable Primary Care Provider Unavailable Encounter Details Date Type Department Care Team Description 11/18/2014 Hospital Encounter HX [facility] Karlie Mark M.D. [address] [place], [place] [address] (Wo rk) Social History Tobacco Use Types [...] How often do you attend jain or zoroastrianism Never 10/23/2020 services? 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 - 11/18/2014 12:16 PM CDT [id number] Patient is coming back for followup. 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 She was quite depressed and she was seen on November 06, 2014. At that time, she was crying. She had stated then that she had milddepression during her . After the delivery her symptoms got worse. She was not getting enough sleep, but did have good support of her parents with whom she lives. However at that time, she hadalso broken up with her boyfriend. She states now that she is over that and that is not causing the problem. At one time she did think about committing suicide but said that she is not thinking about that now. She does have bronchial asthma. She is not breast-feeding the baby, and takes Depo-Provera injections. PHYSICAL EXAMINATION GENERAL: Patient's temperature is 36.9, heart rate 80, respirations 18, blood pressure 117/59, oxygen saturation on room air 98%, height 164 cm, actual weight 94.4 kg, body mass index 35.1. HEENT: Normocephalic scalp. Ears normal. Eyes normal. Oropharynx negative. NECK: Normal. Thyroid is not enlarged. There is no adenopathy. CHEST: Bilaterally symmetrical. Both heart sounds are normal. LUNGS: Clear. ABDOMEN: Negative. IMPRESSION/REPORT/PLAN 1. Reactive depression. 2. Bronchial asthma. I had given 1 month's supply of Zoloft and trazodone. I think now I can give her about 3 months' supply of the same. So she got Zoloft 100 mg, 30 tablets, to take 1 tablet daily in the morning, 3 refills, and trazodone again 50 mg, 30 tablets, 3 refills. I advised the patient to see her psychologist whom she had done apparently a long time ago. She agreed. Ramirez Olmedo M.D./antonia Electronically Signed By: RAMIREZ OLMEDO MD On: 11/25/2014 10:33 AM Source: [facility] MHSDOLBEYNONRADSYS Document Id: [id number] documented in this encounter Miscellaneous Notes Miscellaneous - Teresa Parkinson, LGonzaloPGonzaloN. - 11/18/2014 12:25 PM CDT Adult Strike Operations Officer Intake/History Adult Strike Operations Officer Intake/History Entered On: 11/18/2014 12:29 CDT Performed On: 11/18/2014 12:25 CDT by TERESA PARKINSON LPN Intake Chief Complaint : f/u Temperature Core : 36.9 DegC(Converted to: 98.4 DegF) Limb Alert : Left Peripheral Pulse Rate : 80 /min Respiratory Rate : 18 /min Heart Rhythm : Regular Systolic Blood Pressure : 117 mmHg Diastolic Blood Pressure : 59 mmHg NIBP Mean : 78 mmHg BP Location : Left upper extremity Blood Pressure Cuff Size : Large SpO2 : 98 % Oxygen Therapy : Room air Height : 164 cm(Converted to: 5 ft 5 inch(es), 65 inch(es)) Weight Source : Other: no wt taken TERESA PARKINSON [facility] - 11/18/2014 12:25 CDT General Info Languages : Khmer Is Patient Female and 13-50 no hysterectomy : Yes Status : Patient denies Are you ? : No TERESA PARKINSON [facility] - 11/18/2014 12:25 CDT Subjective Pain Symptoms : No TERESA PARKINSON LPN - 11/18/2014 12:25 CDT Dependent Habits Tobacco Use/Currently Using : No Exposure to Tobacco Smoke : Care provider denies smoking in home, Other: former smoker Smoking Status : Never smoker TERESA PARKINSON DOPEMAN - 11/18/2014 12:25 CDT Tobacco Use Grid Last Use : never TERESA PARKINSON LPN - 11/18/2014 12:25 CDT Alcohol Use : No TERESA PARKINSON [facility] - 11/18/2014 12:25 CDT Caffeine Use Grid Caffeine Use : Current Type : Soft drinks Frequency : Occasionally TERESA PARKINSON DOPEMAN - 11/18/2014 12:25 CDT Recreational Drug Use Grid Drug Use : None TERESA PARKINSON [facility] - 11/18/2014 12:25 CDT ID Screen Drug Resistant Organism : No Travel Within Last 21 Days : No Contact with someone with Ebola : No TERESA PARKINSON LPN - 11/18/2014 12:25 CDT Source: [employer] Document Id: [id number] CDT!44 documented in this encounter Plan of Treatment Not on filedocumented as of this encounter Visit Diagnoses Not on filedocumented in this encounter
--- OUTSIDE RECORDS SUMMARY | 2022-04-07 13:18 | XMS_ITS | Encounter Summary ---
:1995 Author Organization [facility] Address [address] [place] [id number] Care Team Providers Name Role Phone Unavailable Primary Care Provider Unavailable Encounter Details Date Type Department Care Team Description 04/26/2015 Hospital Encounter HX [facility] Law petersen M.D. [address] [place] [address] [phone] (Wo rk) Social History Tobacco Use Types [...] 10/23/2020 relatives? How often do you attend hindu or spiritism Never 10/23/2020 services? 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 - 04/26/2015 9:16 AM CDT Clinic Full Note CHIEF COMPLAINT/REASON FOR VISIT woke up this am, chills, body aches, HE yesterday and today.Runny nose some SOB in breathing ,needsinhaler HISTORY OF PRESENT ILLNESS Sary presents today due to acute illness that started 2 days ago. Initially she had a stuffy nose. Then she developed a headache and some body aches. Today she feels 10 times worse with continued stuffy nose, frontal headache, body aches, hot and cold flashes, and shortness of breath. She has asthma and has been using her inhaler more often. If she breathes deeply she will cough. Her neck does feel a little bit stiff. She denies any sick contacts. She has not tried any medications for this. She is supposed to work today. MEDICATIONS Advair Diskus 250 mcg-50 mcg inhalation powder, 1 puff(s), Inhalation, 2xDay, 3 refills Depo-Provera Contraceptive 150 mg/mL intramuscular suspension, 150 mg, 1 mL, IM, q3mo, 2 refills Flonase 0.05 mg/inh nasal spray, 2 spray(s), Nasal, 2xDay, 3 refills traZODone 50 mg oral tablet, 50 mg, 1 tab(s), PO, Daily, 3 refills Ventolin HFA 90 mcg/inh inhalation aerosol, 2 puff(s), Inhalation, As Directed, PRN, 2 refills Zoloft 100 mg oral tablet, 100 mg, 1 tab(s), PO, Daily, 3 refills ALLERGIES Suprax (Unknown) PAST MEDICAL HISTORY Chronic Asthma NOS (493.90) Hypertension HTN Gestational (PIH) Delivered Historical Bleeding Vaginal Preg >22 Week Antepartum Carrier Group B Streptococcus Decreased Fetus Movement Affecting Preg Management Delivery Vaginal Normal Spontaneous () Otitis Media Acute NOS Pneumonia NOS Supervision of Normal First Vaginosis Bacterial Varicella Zoster PROCEDURES/SURGICAL HISTORY HC REMOVE TONSILS/ADENOIDS,<12 Y/O - [birth year]28[birth year] (06[birth year]28/2000), DENTAL SURGERY - wisdom teeth (). SOCIAL HISTORY Date Time: 04/26/2015 08:40 Tobacco: Smoking Status: Never smoker Exposure: Care provider denies smoking in home, Other: formersmoker Alcohol: Use: No Results Found Recreational Drugs: Use: None Type: No Results Found FAMILY HISTORY Grandmother (paternal):Positive: [place] - Breast cancer; Diabetes mellitus Grandfather (paternal):Positive: Diabetes mellitus SYSTEMS REVIEW As per HPI. VITAL SIGNS T: 36.6 ??C (Core) HR: 91 BP: 127 / 65 SpO2: 97% HT: 164 cm PHYSICAL EXAMINATION General: Patient is alert and oriented in no acute distress. HEENT: Right TM unremarkable. Left TM unremarkable. Nasal mucosa is swollen and erythematous. Oral mucosa is moist. Oropharynx is nonerythematous with post nasal drainage. Patient has frontal and maxillary tenderness to palpation. Neck: Supple. No lymphadenopathy. Heart: Regular rate and rhythm. Normal S1 and S2. No murmurs, rubs, or gallops. Lungs: Clear to auscultation. IMPRESSION/REPORT/PLAN 1. Asthma Acute Exacerbation Patient is having shortness of breath and is using her inhaler more often. We are going to put her on a burst of prednisone. She can continue with her Advair and albuterol. Ordered: OV Est Pt Level 3 - 27503 - 15 min 2. Sinusitis Acute NOS Patient has significant frontal headache and hot and cold flashes with nasal stuffiness. We are going to treat her for a sinus infection with Augmentin 1 pill twice daily for 10 days. She is given a note to stay home from work today. Ordered: OV Est Pt Level 3 - 11986 - 15 min Orders: amoxicillin-clavulanate, 1 tab(s), PO, 2xDay, x 10 day(s), # 20 tab(s), 0 Refill(s), Acute, Pharmacy: [facility] predniSONE, 40 mg = 2 tab(s), PO, Daily, x 5 day(s), # 10 tab(s), 0 Refill(s), Acute, Pharmacy: [facility] Electronically Signed By: LAW BACA MD On: 04/26/2015 09:18 AM Source: [facility] POWERCHART Document Id: [id number] documented in this encounter Miscellaneous Notes Miscellaneous - Law Mancilla M.D. - 04/27/2015 11:16 AM CDT Work Excuse 27 April 2015 DHIRAJ LANDA [address] [facility] [phone] Dear DHIRAJ LANDA, You were examined in my office on: 04/26/2015 Reason for work excuse: Medical Illness ( X ) Yes ( _ ) No Injury ( _ ) Yes ( _ ) No Is excused from all work: ( X ) Yes ( _ ) No Has work limitations: ( _ ) Yes ( _ ) No As follows: _ Limitations apply until: _ Follow-Up Appointment : ( _ ) Return to Work date: 04/28/2015 Notes: Please excuse on 04/27/2015 as patient is not feeling better yet. Sincerely, LAW BACA [address] [place] [id number] Electronic Signature Electronically Signed By: LAW BACA MD On: 27 April 2015 This document has images extracted. Source: [employer] Document Id: [id number] Ramona - Law Mancilla M.D. - 04/26/2015 8:58 AM CDT Work Excuse 26 April 2015 DHIRAJ LANDA [id number] [facility] [place] [phone] Dear DHIRAJ LANDA, You were examined in my office on: 04/26/2015 Reason for work excuse: Medical Illness ( X ) Yes ( _ ) No Injury ( _ ) Yes ( _ ) No Is excused from all work: ( X ) Yes ( _ ) No Has work limitations: ( _ ) Yes ( _ ) No As follows: _ Limitations apply until: _ Follow-Up Appointment : ( _ ) Return to Work date: 04/27/2015, if feeling better Notes: _ Sincerely, LAW BACA [address] [place] [id number] Electronic Signature Electronically Signed By: LAW BACA MD On: 26 April 2015 This document has images extracted. Source: [employer] Document Id: [id number] Ramona - Law Mancilla M.D. - 04/26/2015 8:57 AM CDT Ambulatory Patient Summary [address] [place] [id number] Visit Information Name: DHIRAJ LANDA [facility] Number: [id number] Current Date: 04/26/2015 08:57:46 Physicians Attending Provider: LAW BACA MD Primary Care Provider: PCP, UNASSIGNED - [...] needed for Shortness of breath / Wheezing amoxicillin-clavulanate (Augmentin 875 mg-125 mg oral tablet) 1 Tablet(s), Oral, two times a day x 10 day(s) New Routed to [address] [address] fluticasone nasal (Flonase 0.05 mg/inh nasal spray) 2 [place](s), Nasal, two times a day fluticasone-salmeterol (Advair Diskus 250 mcg-50 mcg inhalation powder) 1 puff(s), Inhalation, two times a day medroxyPROGESTERone (Depo-Provera Contraceptive 150 mg/mL intramuscular suspension) 1 Milliliter, Intramuscular, every 90 days predniSONE (predniSONE 20 mg oral tablet) 2 Tablet(s), Oral, once a day x 5 day(s) New Routed to [address] [id number] sertraline (Zoloft 100 mg oral tablet) 1 Tablet(s), Oral, once a day traZODone (traZODone 50 mg oral tablet) 1 Tablet(s), Oral, once a day Stop Taking the Following Medications: Medication list as of 04-26-15 08:57 Attention: If you have any medications at home that are not on this list, DO NOT take them until youcontact your provider for clarification. Give a copy of your medication list to your primary care provider. Update your medication list any time medications or doses are changed and carry your medication list at all times in case of emergency. Electronically Signed By: LAW BACA MD Signed On:26-APR-2015 08:57:36 Your Allergies & Intolerances Substance Reaction Symptoms Category Comments Suprax Unknown Drug Unknown reaction as a child Your Problem List Problem Status Onset Comments Asthma NOS (493.90) Active 05/01/12 unknown date of dx; 12/26/13 Exercise induced Hypertension HTN Gestational (PIH) Delivered Active Your [...] if you dont have one. Go to [email or web address] and click on Create Your Account. Then, follow the directions to complete the online form. Youll be asked for your [facility] number which you can find at the top of this document. Your Goals/Additional instructions: Source: [facility] POWERCHART Document Id: [id number] Miscellaneous - Law Mancilla M.D. - 04/26/2015 8:57 AM CDT Ambulatory Discharge Medication List [address] [place] [phone] Visit Information Name: DHIRAJ LANDA [facility] Number: [id number] Visit Date: 04/26/2015 08:57:44 Attending Provider: LAW BACA MD Primary Care Provider: PCP, UNASSIGNED - DHIRAJ GROSSMAN PAWEL has been given the following list [...] needed for Shortness of breath / Wheezing amoxicillin-clavulanate (Augmentin 875 mg-125 mg oral tablet) 1 Tablet(s), Oral, two times a day x 10 day(s) New Routed to [address] [id number] fluticasone nasal (Flonase 0.05 mg/inh nasal spray) 2 [place](s), Nasal, two times a day fluticasone-salmeterol (Advair Diskus 250 mcg-50 mcg inhalation powder) 1 puff(s), Inhalation, two times a day medroxyPROGESTERone (Depo-Provera Contraceptive 150 mg/mL intramuscular suspension) 1 Milliliter, Intramuscular, every 90 days predniSONE (predniSONE 20 mg oral tablet) 2 Tablet(s), Oral, once a day x 5 day(s) New Routed to [address] [id number] sertraline (Zoloft 100 mg oral tablet) 1 Tablet(s), Oral, once a day traZODone (traZODone 50 mg oral tablet) 1 Tablet(s), Oral, once a day Stop Taking the Following Medications: Medication list as of 04-26-15 08:57 Attention: If you have any medications at home that are not on this list, DO NOT take them until youcontact your provider for clarification. Give a copy of your medication list to your primary care provider. Update your medication list any time medications or doses are changed and carry your medication list at all times in case of emergency. Electronically Signed By: LAW BACA MD Signed On:26-APR-2015 08:57:36 Additional Information: Source: [facility] POWERCHART Document Id: [id number] Miscellaneous - Teresa Parkinson, L.P.N. 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 Intake/History Entered On: 04/26/2015 8:43 CDT Performed On: 04/26/2015 8:40 CDT by TERESA PARKINSON LPN Intake Chief Complaint : woke up this am, chills, body aches, HE yesterday and today.Runny nose some SOB inbreathing ,needs inhaler Temperature Core : 36.6 DegC(Converted to: 97.9 DegF) Peripheral Pulse Rate : 91 /min Systolic Blood Pressure : 127 mmHg Diastolic Blood Pressure : 65 mmHg NIBP Mean : 86 mmHg BP Location : Left upper extremity Blood Pressure Cuff Size : Regular SpO2 : 97 % Oxygen Therapy : Room air Height : 164 cm(Converted to: 5 ft 5 inch(es), 65 inch(es)) TERESA PARKINSON FAMILY AND DIVORCE LEGAL ASSISTANT - 04/26/2015 8:40 CDT General Info Languages : Vietnamese Is Patient Female and 13-50 no hysterectomy : Yes Status : Patient denies Are you ? : No TERESA PARKINSON LPN - 04/26/2015 8:40 CDT Subjective Pain Symptoms : Yes TERESA PARKINSON LPN - 04/26/2015 8:40 CDT Pain Scale Pain Scale Verbal 0-10 : Open TERESA PARKINSON LPN - 04/26/2015 8:40 CDT Pain Pain Assessment Grid Pain 1 Pain 2 Location : Head Other: body aches Intensity : 8 6 TERESA PARKINSON LPN - 04/26/2015 8:40 CDT TERESA PARKINSON LPN - 04/26/2015 8:40 CDT Dependent Habits Tobacco Use/Currently Using : No Exposure to Tobacco Smoke : Care provider denies smoking in home, Other: former smoker Smoking Status : Never smoker TERESA PARKINSON [facility] - 04/26/2015 8:40 CDT Caffeine Use Grid Caffeine Use : Current Type : Soft drinks Frequency : Occasionally TERESA PARKINSON [facility] - 04/26/2015 8:40 CDT Recreational Drug Use Grid Drug Use : None TERESA PARKINSON [facility] - 04/26/2015 8:40 CDT Source: [employer] Document Id: [id number] documented in this encounter Plan of Treatment Not on filedocumented as of this encounter Visit Diagnoses Not on filedocumented in this encounter
--- OUTSIDE RECORDS SUMMARY | 2022-04-07 13:18 | XMS_ITS | Encounter Summary ---
:1995 Author Organization [facility] Address [address] [place] [id number] Care Team Providers Name Role Phone Unavailable Primary Care Provider Unavailable Encounter Details Date Type Department Care Team Description 09/30/2015 Hospital Encounter HX [facility] Hunter Ovalle M.D. 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 documented as of this encounter Last Filed Vital Signs Vital Sign Reading Time Taken Comments Blood Pressure 117/67 09/30/2015 1:10 PM BULLET LUBRICATING MACHINE OPERATOR Pulse 93 09/30/2015 1:10 PM BULLET LUBRICATING MACHINE OPERATOR Temperature - - Respiratory Rate 16 09/30/2015 1:10 PM BULLET LUBRICATING MACHINE OPERATOR Oxygen Saturation - - Inhaled Oxygen Concentration - - Weight 83.8 kg (184 lb 11.9 oz) 09/30/2015 1:10 PM BULLET LUBRICATING MACHINE OPERATOR Height 164 cm (5' 4.57) 09/30/2015 1:10 PM BULLET LUBRICATING MACHINE OPERATOR Body Mass Index 31.16 09/30/2015 1:10 PM BULLET LUBRICATING MACHINE OPERATOR documented in this encounter Medications at Time [...] documented as of this encounter Progress Notes Washington Allison M.D. - 09/30/2015 1:00 PM CST [id number] CHIEF COMPLAINT/REASON FOR VISIT Congestion and decreased hearing. HISTORY OF PRESENT ILLNESS Over the past 5 to 10 days she has had pressure in her sinus area, decreased hearing, low-grade fever, occasional sweats, no chills. She has a history of asthma which has flared a little bit but she isusing her inhalers with good result. PHYSICAL EXAMINATION GENERAL: She is in no apparent distress. ENT: The right TM has a small amount of fluid behind it. The left TM is normal. She is tender on palpation over the ethmoid and maxillary sinuses. Oral cavity is normal. NECK: Supple. No adenopathy. LUNGS: She has end-expiratory wheeze with cough. HEART: Regular rate and rhythm. IMPRESSION/REPORT/PLAN 1. Asthma flare mild. 2. Sinusitis. PLAN: Amoxicillin for 10 days. Symptomatic measures. Stressed importance to continuing her inhalers and also try an [id number] decongestant if beneficial. If no improvement or worsens she will follow up with us. CHIEF COMPLAINT/REASON FOR VISIT Problem #2: Zoloft refill. HISTORY OF PRESENT ILLNESS She has an appointment coming up with [facility] in which she needs her Zoloft filled. This was done, #90 with refills for a year. Ready to learn. No apparent learning barriers were identified. Learning preferences include listening. Explained diagnosis and treatment plan. Patient/Child/Caregiver expressed understanding of the content. Washington Allison M.D./antonia Electronically Signed By: WASHINGTON ALLISON MD On: 09/30/2015 02:51 PM Source: [facility] [id number] Document Id: [id number] ET LUBRICATING MACHINE OPERATOR documented in this encounter Procedure Notes Chrissy Dia L.P.N. - 09/30/2015 1:09 PM CST Asthma Control Test (12 yrs and older) Asthma Control Test (12 yrs and older) Entered On: 09/30/2015 13:09 BULLET LUBRICATING MACHINE OPERATOR Performed On: 09/30/2015 13:09 BULLET LUBRICATING MACHINE OPERATOR by CHRISSY DIA SUIT ATTENDANT ACT Past 4 weeks asthma interfered with work, school, or home : None of the Time Past 4 weeks how often short of breath : Not at all Past 4 weeks symptoms effect sleep : Not at all Past 4 weeks how often inhaler or nebulizer used : Once a week or less Past 4 weeks rate your asthma control : Well controlled ACT Score : 23 ED visits past yr for asthma w/o hospital stay : 0 Hospitalizations/Overnight Stays in Past yr for Asthma : 0 Asthma Action Plan Provided/Reviewed : Provided to the patient Asthma Action Plan Copy : Scanned into EMR CHRISSY DIA LPN - 09/30/2015 13:09 BULLET LUBRICATING MACHINE OPERATOR Source: [facility] BandApp Document Id: [id number] BULLET LUBRICATING MACHINE OPERATOR!12 ET LUBRICATING MACHINE OPERATOR documented in this encounter Miscellaneous Notes Miscellaneous - Washington Allison M.D. - 09/30/2015 1:38 PM CST Ambulatory Patient Summary [address] [id number] Visit Information Name: DHIRAJ LANDA [facility] Number: [id number] Current Date: 09/30/2015 13:38:49 Physicians Attending Provider: WASHINGTON ALLISON MD Primary Care Provider: [facility] ARREOLA GETTER FILLER DHIRAJ LANDA has been given the following [...] needed for Shortness of breath / Wheezing amoxicillin (Amoxil 875 mg oral tablet) 1 Tablet(s), Oral, two times a day x 10 day(s) New Routed [facility] [address] [address] fluticasone nasal (Flonase 0.05 mg/inh nasal spray) 2 [employer](s), Nasal, two times a day fluticasone-salmeterol (Advair Diskus 250 mcg-50 mcg inhalation powder) 1 puff(s), Inhalation, two times a day medroxyPROGESTERone (Depo-Provera Contraceptive 150 mg/mL intramuscular suspension) 1 Milliliter, Intramuscular, every 90 days sertraline (Zoloft 100 mg oral tablet) 1 Tablet(s), Oral, once a day Take 0.5 tablet x 1 week and then 1 tablet daily Routed to [facility] [address] [address] traZODone (traZODone 50 mg oral tablet) 1 Tablet(s), Oral, once a day Stop Taking the Following Medications: Medication list as of 09-30-15 13:38 Attention: If you have any medications at home that are not on this list, DO NOT take them until youcontact your provider for clarification. Give a copy of your medication list to your primary care provider. Update your medication list any time medications or doses are changed and carry your medication list at all times in case of emergency. Electronically Signed By: WASHINGTON ALLISON MD Signed On:30-SEP-2015 13:38:40 Your Allergies & Intolerances Substance Reaction Symptoms [...] you dont have one. Go to [email or web address] and click on Create Your Account. Then, follow the directions to complete the online form. Youll be asked for your [facility] number which you can find at the top of this document. Your Goals/Additional instructions: Source: [facility] POWERCHART Document Id: [id number] ET LUBRICATING MACHINE OPERATOR Miscellaneous - Washington Allison M.D. - 09/30/2015 1:38 PM CST Ambulatory Discharge Medication List [address] [id number] Visit Information Name: DHIRAJ LANDA [facility] Number: [id number] Visit Date: 09/30/2015 13:38:46 Attending Provider: WASHINGTON ALLISON MD Primary Care Provider: [facility] ARREOLA GETTER F[employer]ER DHIRAJ LANDA has been given the following [...] needed for Shortness of breath / Wheezing amoxicillin (Amoxil 875 mg oral tablet) 1 Tablet(s), Oral, two times a day x 10 day(s) New Routed [facility] [address] [address] fluticasone nasal (Flonase 0.05 mg/inh nasal spray) 2 [employer](s), Nasal, two times a day fluticasone-salmeterol (Advair Diskus 250 mcg-50 mcg inhalation powder) 1 puff(s), Inhalation, two times a day medroxyPROGESTERone (Depo-Provera Contraceptive 150 mg/mL intramuscular suspension) 1 Milliliter, Intramuscular, every 90 days sertraline (Zoloft 100 mg oral tablet) 1 Tablet(s), Oral, once a day Take 0.5 tablet x 1 week and then 1 tablet daily [facility] [address] traZODone (traZODone 50 mg oral tablet) 1 Tablet(s), Oral, once a day Stop Taking the Following Medications: Medication list as of 09-30-15 13:38 Attention: If you have any medications at home that are not on this list, DO NOT take them until youcontact your provider for clarification. Give a copy of your medication list to your primary care provider. Update your medication list any time medications or doses are changed and carry your medication list at all times in case of emergency. Electronically Signed By: WASHINGTON ALLISON MD Signed On:30-SEP-2015 13:38:40 Additional Information: Source: [facility] POWERCHART Document Id: [id number] ET LUBRICATING MACHINE OPERATOR Miscellaneous - Chrissy Dia, L.P.N. - 09/30/2015 1:10 PM CST Adult Engineer Station Mainline Intake/History Adult Engineer Station Mainline Intake/History Entered On: 09/30/2015 13:13 BULLET LUBRICATING MACHINE OPERATOR Performed On: 09/30/2015 13:10 BULLET LUBRICATING MACHINE OPERATOR by CHRISSY DIA LPN Intake Chief Complaint : sinsus congestion, ears plugged x 1+ week Temperature Core : 37.4 DegC(Converted to: 99.3 DegF) Peripheral Pulse Rate : 93 /min Respiratory Rate : 16 /min Systolic Blood Pressure : 117 mmHg Diastolic Blood Pressure : 67 mmHg NIBP Mean : 84 mmHg BP Location : Left upper extremity Blood Pressure Cuff Size : Regular SpO2 : 98 % Height : 164 cm(Converted to: 5 ft 5 inch(es), 65 inch(es)) Actual Weight : 83.8 kg(Converted to: 184 lb 12 oz) Weight Source : Standing scale Dosing Weight Clinic : 83.8 kg Clinic BSA : 1.95 Body Mass Index : 31.16 kg/m2 CHRISSY DIA LPN - 09/30/2015 13:10 BULLET LUBRICATING MACHINE OPERATOR General Info Languages : Armenian Is Patient Female and 13-50 no hysterectomy : Yes Status : Patient denies Are you ? : No CHRISSY DIA LPN - 09/30/2015 13:10 BULLET LUBRICATING MACHINE OPERATOR Subjective Pain Symptoms : No CHRISSY DIA LPN - 09/30/2015 13:10 BULLET LUBRICATING MACHINE OPERATOR Dependent Habits Exposure to Tobacco Smoke : Care provider denies smoking in home, Other: former smoker Smoking Status : Former smoker Tobacco 2A : Yes Tobacco Use/Currently Using : No Tobacco Use/Last 30 Days : No Tobacco Use/Last 12 months : No Alcohol Use : No CHRISSY DIA LPN - 09/30/2015 13:10 BULLET LUBRICATING MACHINE OPERATOR Caffeine Use Grid Caffeine Use : Current Type : Soft drinks Frequency : Occasionally CHRISSY DIA LPN - 09/30/2015 13:10 BULLET LUBRICATING MACHINE OPERATOR Recreational Drug Use Grid Drug Use : None CHRISSY DIA LPN - 09/30/2015 13:10 BULLET LUBRICATING MACHINE OPERATOR Source: [employer] Document Id: [id number] BULLET LUBRICATING MACHINE OPERATOR!41 ET LUBRICATING MACHINE OPERATOR Miscellaneous - Chrissy Dia L.P.NGonzalo - 09/30/2015 1:07 PM CST Health Assessment Health Assessment Entered On: 09/30/2015 13:08 BULLET LUBRICATING MACHINE OPERATOR Performed On: 09/30/2015 13:07 BULLET LUBRICATING MACHINE OPERATOR by CHRISSY DIA LPN Health Assessment Complete Health Assessment Complete or Modified : Annual Health Assessment Annual Health Assessment Completed : Yes CHRISSY DIA LPN - 09/30/2015 13:07 BULLET LUBRICATING MACHINE OPERATOR Nutrition Nutrition Risk Factors by History Adult : None CHRISSY DIA LPN - 09/30/2015 13:07 BULLET LUBRICATING MACHINE OPERATOR Functional Current Daily Living Assistance : None CHRISSY DIA LPN - 09/30/2015 13:07 BULLET LUBRICATING MACHINE OPERATOR Dependent Habits Exposure to Tobacco Smoke : Care provider denies smoking in home, Other: former smoker Smoking Status : Former smoker Tobacco 2A : Yes Tobacco Use/Currently Using : No Tobacco Use/Last 30 Days : No Tobacco Use/Last 12 months : No CHRISSY DIA LPN - 09/30/2015 13:07 BULLET LUBRICATING MACHINE OPERATOR Caffeine Use Grid Caffeine Use : Current Type : Soft drinks Frequency : Occasionally CHRISSY DIA LPN - 09/30/2015 13:07 BULLET LUBRICATING MACHINE OPERATOR Alcohol Use : No CHRISSY DIA LPN - 09/30/2015 13:07 BULLET LUBRICATING MACHINE OPERATOR Recreational Drug Use Grid Drug Use : None CHRISSY DIA SUIT ATTENDANT - 09/30/2015 13:07 BULLET LUBRICATING MACHINE OPERATOR Psychosocial Domestic Abuse Concerns : None Behavioral Health Screen/Safety Assmt : No Jainism Preference : CHRISSY Muñiz LPN - 09/30/2015 13:07 BULLET LUBRICATING MACHINE OPERATOR Advance Directive Advanced Directives : No Advance Directive Additional Information : No CHRISSY DAI LPN - 09/30/2015 13:07 BULLET LUBRICATING MACHINE OPERATOR Educ Needs Learning Style Preference Adult Grid Patient : Demonstration, Printed materials Family : None CHRISSY DIA LPN - 09/30/2015 13:07 BULLET LUBRICATING MACHINE OPERATOR Source: [facility] POWERCHART Document Id: [id number] BULLET LUBRICATING MACHINE OPERATOR!35 ET LUBRICATING MACHINE OPERATOR documented in this encounter Plan of Treatment Not on filedocumented as of this encounter Visit Diagnoses Not on filedocumented in this encounter
--- OUTSIDE RECORDS SUMMARY | 2022-04-07 13:18 | XMS_ITS | Encounter Summary ---
:1995 Author Organization [facility] Address [address] [place] [address] Care Team Providers Name Role Phone Unavailable Primary Care Provider Unavailable Encounter Details Date Type Department Care Team Description 07/31/2014 Hospital Encounter HX [facility] Maureen Lua A PRN, [place] [phone] (Wo rk) Social History Tobacco Use [...] 10/23/2020 relatives? How often do you attend scientologist or confucianist Never 10/23/2020 services? Do you belong to any clubs or organizations such as No 12/04/2019 scientologist groups, unions, fraternal or athletic groups, or [...] at Date Recorded Female 08/12/2017 10:51 AM PATROL LADY documented as of this encounter Last Filed Vital Signs Vital Sign Reading Time Taken Comments Blood Pressure - - Pulse - - Temperature - - Respiratory Rate - - Oxygen Saturation - - Inhaled Oxygen Concentration - - Weight - - Height 164 cm (5' 4.57) 07/31/2014 4:09 PM PATROL LADY Body Mass Index - - documented in [...] documented as of this encounter Procedure Notes Nena Ocampo, LGonzaloPGonzaloN. - 07/31/2014 4:15 PM CST Depo-Provera Administration Depo-Provera Administration Entered On: 07/31/2014 16:16 PATROL LADY Performed On: 07/31/2014 16:15 PATROL LADY by NENA OCAMPO LPN Depo-Provera Administration Return appointment : 10/30/2014 CDT Depo-Provera Administration Comments : Lot: [id number] Expires: 01/2017 NENA OCAMPO LPN - 07/31/2014 16:15 PATROL LADY Source: [facility] POWERCHART Document Id: [id number] PATROL LADY!4 OL LADY documented in this encounter Plan of Treatment Not on filedocumented as of this encounter Visit Diagnoses Not on filedocumented in this encounter
--- OUTSIDE RECORDS SUMMARY | 2022-04-07 13:18 | XMS_ITS | Encounter Summary ---
:1995 Author Organization [facility] Address [address] [place] [id number] Care Team Providers Name Role Phone Unavailable Primary Care Provider Unavailable Encounter Details Date Type Department Care Team Description 04/05/2016 Hospital Encounter HX [facility] [place] Francisca Arreola, EMPLOYEE RELATIONS CONSULTANT, C.N.P. [address] [place], [place] [address] (Wo rk) Social History [...] How often do you attend faith or methodist Never 10/23/2020 services? 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 prenat.vits,heranndez,min-iro Take 1 tablet by 0 201310/06/2017 n-folic ( mouth. VITAMIN) tablet prenat.vits,hernandez,min-iro Take 1 tablet by mouth 0 08/20/2013 02/19/2019 n-folic ( daily. VITAMIN) tablet traZODone (for_DESYREL) Take 1 tablet by mouth 0 06/20/2015 10/06/2017 50 mg tablet daily. documented as of this encounter H&P Notes Holley Arreola R.N. - 04/05/2016 5:02 PM CDT Clinic Full Note CHIEF COMPLAINT/REASON FOR VISIT General medical exam. HISTORY OF PRESENT ILLNESS Dhiraj is a very pleasant 21-year-old female who comes into the clinic today for an annual physical. She reports no medical concerns today. She is due for her first Pap smear. She is sexually active.Her last menses was March 08, 2016. She denies any concerns with sleep or appetite. 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 She is here today for further evaluation. She has no other concerns today. MEDICATIONS Advair Diskus 250 mcg-50 mcg inhalation powder, 1 puff(s), Inhalation, 2xDay, 3 refills Effexor XR 37.5 mg oral capsule, extended release, 37.5 mg, 1 cap(s), PO, Daily, 1 refills [...] wisdom teeth (). SOCIAL HISTORY Date Time: 04/05/2016 16:28 Tobacco: Smoking Status: Former smoker Exposure: Care provider denies smoking in home, Other: former smoker Alcohol: Use: Yes Recreational Drugs: Use: None Type: No Results Found FAMILY HISTORY Grandmother (paternal):Positive: CA - Breast cancer; Diabetes mellitus Grandfather (paternal):Positive: Diabetes mellitus SYSTEMS REVIEW GENERAL: Denies extreme fatigue, unexplained weight loss/gain or concerns for depression, trouble concentrating or memory concerns. HEENT: Denies visual changes/disturbances, hearing changes/disturbances, difficulty chewing/swallowing. HEART: Denies palpitations, chest pain or shortness of breath with or without exertion. GI: Denies abdominal pain, difficulty having bowel movements or frequent episodes of diarrhea. : Denies urgency, frequency, or burning with urination. MUSCULOSKELETAL: Denies joint pain or muscle fatigue. NEUROLOGICAL: Denies frequent headaches, dizziness or numbness/tingling in her upper or lower extremities. VITAL SIGNS T: 37.3 ??C (Core) HR: 88 RR: 16 BP: 119 / 70 SpO2: 98% HT: 167 cm WT: 90.8 kg BMI: 32.56 PHYSICAL EXAMINATION GENERAL: Alert and oriented. No acute distress. HEENT: Normocephalic/atraumatic. Canals patent, TMs normal. Oropharynx without lesion of mucosa. Pharyngeal rises symmetrically without exudate. NECK: No nodes, no thyromegaly. HEART: Regular rate and rhythm. No murmurs, gallops or rubs noted. LUNGS: Clear to auscultation bilaterally. No expiratory wheeze. No accessory muscles of respirationnoted. BREASTS: Soft breast tissue without predominant mass or nodularity. No nipple discharge. Nipples everted bilaterally. No axillary or supraclavicular adenopathy. ABDOMEN: Nontender to palpation. No hepato-splenomegaly. No mass. Normal bowel sounds in all 4 quadrants. PELVIS: Normal external genitalia. No vaginal discharge. Mucosa moist and well rugated. Cervix is midline. Pap smear is taken by thin-prep technology. Bimanual exam shows no adnexal fullness. No cervical motion tenderness. Anus appears normal. SKIN: Without usual rashes or suspicious lesions. EXTREMITIES: No neurovascular compromise. No cyanosis, clubbing or edema. No abnormal limb length. LAB RESULTS A Pap smear and chlamydia/gonorrhea screening are pending at time of dictation. IMPRESSION/REPORT/PLAN Encounter for screening for infections with a predominantly sexual mode of transmission A chlamydia/gonorrhea screening is pending at time of dictation. We will send her results through the portal once completed. Ordered: Chlamydia Gonorrhoeae Amplified RNA-[facility] CGRNA OV Est Pt Prev [facility] [place] 79-54 - [id number] General Medical Exam Adult (GME) A Pap smear was completed today. We will send the results through the portal once completed. We discussed screening related to a lipid panel and fasting glucose. She is not fasting today. We will complete fasting lab work in one year. Age appropriate anticipatory guidance was provided. Ordered: OV Est Pt Prev Svc 18-85 - [id number] Need Vaccine (IN) NOS She received her first HPV injection today. She was instructed to return in 2 months for her secondinjection. All questions were answered. She left in no acute distress. Ordered: OV Est Pt Prev Svc [id number] Orders: Thin Prep Screen with HPV Reflex-[place] [id number] Electronically Signed By: HOLLEY ARREOLA RETAIL CUSTODIAL ASSOCIATE On: 04/05/2016 06:57 PM Source: [employer] Document Id: [id number] documented in this encounter Procedure Notes Consuelo Dia L.P.N. - 05/26/2016 9:43 AM CDT Asthma Control Test (12 yrs and older) Asthma Control Test (12 yrs and older) Entered On: 05/26/2016 9:45 CDT Performed On: 05/26/2016 9:43 CDT by CONSUELO DIA LPN ACT Past 4 weeks asthma interfered with work, school, or home : None of the Time Past 4 weeks how often short of breath : Once or twice a week Past 4 weeks symptoms effect sleep : Not at all Past 4 weeks how often inhaler or nebulizer used : Once a week or less Past 4 weeks rate your asthma control : Completely controlled ACT Score : 23 ED visits past yr for asthma w/o hospital stay : 0 Hospitalizations/Overnight Stays in Past yr for Asthma : 0 CONSUELO DIA LPN - 05/26/2016 9:43 CDT Source: [employer] Document Id: [id number] CDT!10 documented in this encounter Miscellaneous Notes Miscellaneous - Tami Ceballos - 05/20/2016 10:40 AM CDT Quality Measure / ACT update Document Contains Addenda Addendum by CONSUELO DIA LPN on May 26, 2016 10:06:11 CDT From: CONSUELO DIA LPN ([facility] Family Medicine Nurse [place]) To: TAMI CEBALLOS; Sent: 05/26/2016 10:06:11 CDT Subject: RE: Quality Measure / ACT update talked with pt- ACT was done and updated. From: TAMI CEBALLOS To: [facility] Medicine Nurse [place]; Sent: 05/20/2016 10:40:35 CDT Subject: Quality Measure / ACT update This patient has been screened for Quality Measures and is due for a ACT update. Please reach out tothe patient to update the ACT and emergency visits/hosiptal stays. Last ACT datet: 10/20/2015 Score 16 Last office visit 03/19/2016 Thank you for your help. [facility] Source: [employer] Document Id: [id number] Electronically signed by [facility] j Catalyst Unit Operator [id number] at 01/09/2017 2:00 AM CDT Miscellaneous - Holley Arreola, R.N. - 04/13/2016 3:36 PM CDT Normal Results Letter April 13, 2016 DHIRAJ LANDA [address] [facility] [address] Dear DHIRAJ LANDA, The results of your recent Pap smear were negative. If you have questions or concerns, please do nothesitate to call our office. Result Name Current Result Spec Desc-[facility] See Comment 04/05/2016 ThPrep Scrn Accn-[facility] [id number] 04/05/2016 ThPrep Scrn Cyto-[facility] See Comment 04/05/2016 ThPrep Scrn Fnl-[facility] See Comment 04/05/2016 Sincerely, HOLLEY ARREOLA [address] [address] Electronic Signature Electronically Signed By: HOLLEY ARREOLA RETAIL CUSTODIAL ASSOCIATE On: April 13, 2016 This document has images extracted. Source: [employer] Document Id: [id number] Electronically signed by Conversion, [facility] Catalyst Unit Operator [id number] at 01/09/2017 2:00 AM CDT Miscellaneous - Holley Arreola, RGonzaloNGonzalo - 04/08/2016 4:40 PM CDT Normal Results Letter April 08, 2016 DHIRAJ LANDA [address] [place] [address] Dear DHIRAJ LANDA, I am pleased to report that your results from the following diagnostic test(s) are normal. Please follow up with us as we discussed during your visit or sooner if you have any concerns. If you have questions or concerns, please do not hesitate to call our office. Result Name Current Result Normal Range C trach Amp Src-[facility] urine 04/05/2016 C trach Amp RNA-[facility] Negative 04/05/2016 Negative - N gonor Amp DNA-[facility] Negative 04/05/2016 Negative - N gonor Amp Src-[facility] urine 04/05/2016 Sincerely, HOLLEY ARREOLA [id number] [place] [address] Electronic Signature Electronically Signed By: HOLLEY ARREOLA RETAIL CUSTODIAL ASSOCIATE On: April 08, 2016 This document has images extracted. Source: [facility] [employer] Document Id: [id number] Electronically signed by Conversion, [facility] Catalyst Unit Operator [id number] at 01/09/2017 2:00 AM CDT Ramona - Dorian Davenport, L.P.N. - 04/05/2016 4:44 PM CDT MnVFC Eligibility MnVFC Eligibility Entered On: 04/05/2016 16:44 CDT Performed On: 04/05/2016 16:44 CDT by DORIAN DAVENPORT LPN MnVFC Eligibility Provided MnVFC eligibility information : No DORIAN DAVENPORT LPN - 04/05/2016 16:44 CDT Source: [facility] [employer] Document Id: [id number] CDT!3 Octaviacellaneous - Dorian Davenport L.P.N. - 04/05/2016 4:28 PM CDT Adult Summer Analyst Intake/History Adult Summer Analyst Intake/History Entered On: 04/05/2016 16:30 CDT Performed On: 04/05/2016 16:28 CDT by DORIAN DAVENPORT LPN Intake Chief Complaint : Annual physical. Temperature Core : 37.3 DegC(Converted to: 99.1 DegF) Peripheral Pulse Rate : 88 /min Respiratory Rate : 16 /min Systolic Blood Pressure : 119 mmHg Diastolic Blood Pressure : 70 mmHg NIBP Mean : 86 mmHg BP Location : Left upper extremity Blood Pressure Cuff Size : Large SpO2 : 98 % Oxygen Therapy : Room air Height : 167 cm(Converted to: 5 ft 6 inch(es), 66 inch(es)) Actual Weight : 90.8 kg(Converted to: 200 lb 3 oz) Weight Source : Standing scale Dosing Weight Clinic : 90.8 kg Clinic BSA : 2.05 Body Mass Index : 32.56 kg/m2 DORIAN DAVNEPORT LPN - 04/05/2016 16:28 CDT General Info Information Given By : Patient Preferred Communication Mode : Verbal Languages : Cameroonian Is Patient Female and 13-50 no hysterectomy : Yes Status : Patient denies Are you ? : No DORIAN DAVENPORT LPN - 04/05/2016 16:28 CDT Subjective Pain Symptoms : No DORIAN DAVENPORT LPN - 04/05/2016 16:28 CDT Dependent Habits Exposure to Tobacco Smoke : Care provider denies smoking in home, Other: former smoker Smoking Status : Former smoker Tobacco 2A : Yes Tobacco Use/Currently Using : No Tobacco Use/Last 30 Days : No Tobacco Use/Last 12 months : No Alcohol Use : Yes DORIAN DAVENPORT LPN - 04/05/2016 16:28 CDT Caffeine Use Grid Caffeine Use : Current Type : Soft drinks Frequency : Occasionally DORIAN DAVENPORT LPN - 04/05/2016 16:28 CDT Recreational Drug Use Grid Drug Use : None DORIAN DAVENPORT LPN - 04/05/2016 16:28 CDT Source: [facility] [employer] Document Id: [id number] CDT!44 documented in this encounter Plan of Treatment Not on filedocumented as of this encounter Procedures Procedure Name Priority Date/Time Associated Diagnosis Comme nts N GONOR AMP SRC Routine 04/05/2016 5:14 PM Result s for this CDT procedure are i n the results section. N GONOR AMP DNA Routine 04/05/2016 5:14 PM Result s for this CDT procedure are i n the results section. C TRACH AMP SRC Routine 04/05/2016 5:14 PM Result s for this CDT procedure are i n the results section. C TRACH AMP RNA Routine 04/05/2016 5:14 PM Result s for this CDT procedure are i n the results section. THINPREP SCREEN HPV Routine 04/05/2016 4:47 PM Re sults for this REFLEX CDT procedure are i n the results section. documented in this encounter Results HX-N gonor Amp DNA (04/05/2016 5:14 PM CDT) P athologist Signature HXN gonor Amp Negative POWERCHART DNA-[facility] Specimen (Source) Anatomical Collection Method Collection Time Re ceived Time Location / / Volume Laterality 04/05/2016 5:14 PM CDT Narrative POWERCHART - 04/08/2016 3:51 PM CDT ADDITIONAL INFORMATION This report is intended for use in clini hernandez monitoring and management of patients. It is not in tended for use in medical-legal applications. Test Performed by: [facility] - [address] [address] Filament Cutter: Cisco Pantoja II, M.D., Ph.D. Holley Arreola APRN CGonzaloN.P. LAB HISTORICAL ORDERS Performing Organization Address City/State/ZIP Code Phon e Number POWERCHART HX-N gonor Amp Src (04/05/2016 5:14 PM CDT) P athologist Signature HXN gonor Amp urine POWERCHART Src-[facility] Specimen (Source) Anatomical Collection Method Collection Time Re ceived Time Location / / Volume Laterality 04/05/2016 5:14 PM CDT Liselle M Lewis EMPLOYEE RELATIONS CONSULTANT, C.N.P. LAB HISTORICAL ORDERS Performing Organization Address City/[facility]/ZIP Code Phon e Number POWERCHART HX-C trach Amp RNA (04/05/2016 5:14 PM CDT) [facility] Method Time Signature Chlamydia Negative POWERCHART trachomatis amplified RNA Specimen (Source) Anatomical Collection Method Collection Time Re ceived Time Location / / Volume Laterality 04/05/2016 5:14 PM CDT Narrative POWERCHART - 04/08/2016 3:51 PM CDT ADDITIONAL INFORMATION This report is intended for use in clini hernandez monitoring and management of patients. It is not in tended for use in medical-legal applications. Holley Arreola APRN, C.N.P. LAB HISTORICAL ORDERS Performing Organization Address City/[facility]/ZIP Code Phon e Number POWERCHART HX-C trach Amp Src (04/05/2016 5:14 PM CDT) athologist Signature HXC trach Amp urine POWERCHART Src-[place] Specimen (Source) Anatomical Collection Method Collection Time Re ceived Time Location / / Volume Laterality 04/05/2016 5:14 PM CDT Holley Arreola APRN, C.N.P. LAB HISTORICAL ORDERS Performing Organization Address City/[facility] Code Phon e Number POWERCHART Pathology ThinPrep Screen HPV Reflex (04/05/2016 4:47 PM CDT) [facility] Method Time Signature Interpretation [id number] POWERCHART HXThPrep Scrn See Comment POWERCHART Fnl-[facility] Comment: A. ??ThinPrep Pap Test Screen (Cervical/ Endocervical HPV Reflex): Satisfactory for evaluation. Negative for intraepithelial lesion or m alignancy. Fungal organisms morphologically consist ent with Veronica species HXThPrep Scrn Cyto-[facility] See Comment KAYLA RCHART Comment: Report electronically signed by KAT Cifuentes(ASCP) 04/13/2016 08:18 Interpreted by: KAT Cifuentes(ASCP) [facility] See Comment POWERCHART Comment: A. ??ThinPrep Pap Test Screen (Cervical/ Endocervical HPV Reflex): Received clear specimen in ThinPrep vial . Test Performed by: [place] [address] Filament Cutter: Cisco Pantoja II, M.D., Ph.D. Specimen (Source) Anatomical Collection Method Collection Time Re ceived Time Location / / Volume Laterality Cervix/Endocervix 04/05/2016 4:47 PM CDT Holley Arreola APRN C.N.P. LAB PAP PATHDX ORDERABL ES Performing Organization Address City/State/ZIP Code Phon e Number POWERCHART documented in this encounter Visit Diagnoses Not on filedocumented in this encounter
--- OUTSIDE RECORDS SUMMARY | 2022-04-07 13:18 | XMS_ITS | Encounter Summary ---
:1995 Author Organization [facility] Address [address] [place] [id number] Care Team Providers Name Role Phone Unavailable Primary Care Provider Unavailable Encounter Details Date Type Department Care Team Description 12/05/2015 Hospital Encounter HX [facility] Francisca Arreola, VEGETABLE HARVEST MACHINE OPERATOR, C.N.P. [address] [place], [place] [address] (Wo rk) Social History [...] often do you attend latter day or jewish Never 10/23/2020 services? 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 - 12/05/2015 2:59 PM CDT [id number] CHIEF COMPLAINT/REASON FOR VISIT Depression follow up. HISTORY OF PRESENT ILLNESS Dhiraj is a very pleasant 20-year-old female who comes into the clinic today with concerns related to an increased depressed mood. She has a past medical history significant for a depressed mood. She reports she was initiated on Zoloft 50 mg approximately 1 year ago. She was increased to Zoloft 100 mg daily for increased symptom management. She reports she has experienced an increase in depressed mood. She reports her current daily dosing has been somewhat effective related to her current depressedmood; however, she has not seen the use of daily sertraline continue to improve her depressed mood. She denies any current suicidal ideation. She does report she has had thoughts of suicidal ideation. S he reports she currently does not have a suicidal plan. She reports she wants to feel better related to her 2-year-old daughter. She reports she wants to be a better mom and is noting an increase in a depressed mood. She denies any heart palpitations, chest pain, or shortness of breath. She is here today for further evaluation. She has no other concerns today. MEDICATIONS Reviewed and reconciled. New medication today: Lexapro 10 mg 1 tablet daily, take 1/2 tablet daily for 7 days and then 1 tablet daily. Discontinued medication today: Zoloft 100 mg 1 tablet daily, take 1/2 tablet daily every other day for 7 days and then discontinue. ALLERGIES Suprax. PAST MEDICAL/SURGICAL HISTORY PAST MEDICAL HISTORY: Reviewed and unchanged. PAST SURGICAL HISTORY: Reviewed and unchanged. SOCIAL HISTORY Dhiraj is a former tobacco user. She denies any alcohol use. She denies any illicit drug use. SYSTEMS REVIEW As per HPI. VITAL SIGNS Temperature 36.6, heart rate 70, respiration rate 16, blood pressure 111/62, oxygen saturation 98% on room air. PHQ-9 score of 17. PHYSICAL EXAMINATION GENERAL: Alert and oriented. In no acute distress. HEAD: Normocephalic/atraumatic. HEART: Regular S1, S2. No murmurs, rubs, or gallops noted. LUNGS: Clear to auscultation bilaterally. No prolonged expiratory phases, wheezing, rales, or rhonchi. NEUROLOGICAL: Cranial nerves II to XII grossly intact and symmetric. She ambulates with a steady gait. IMPRESSION/REPORT/PLAN Depression. PLAN: We discussed at length her current clinical symptoms related to a depressed mood. We discussedthe option of increasing her daily Zoloft or discontinuing it and potentially trying another antidepressant. We did elect to discontinue her daily Zoloft and initiate Lexapro 10 mg daily. I prescribed L exapro 10 mg daily. She was instructed to take 1/2 tablet daily for 7 days and then 1 tablet daily. She was instructed to take the Zoloft 1/2 tablet every other day for 7 days and then discontinue use.She was instructed to follow up in primary care in 6 to 8 weeks for further evaluation. All questions were answered. She left in no acute distress. Ready to learn. No apparent learning barriers were identified. Learning preferences include listening. Explained diagnosis and treatment plan. Patient/Child/Caregiver expressed understanding of the content. Holley Arreola N.P./antonia Electronically Signed By: HOLLEY ARREOLA NP On: 12/08/2015 08:55 AM Modified by and Electronically Signed by: HOLLEY ARREOLA NP On: 12/08/2015 08:55 AM Source: [facility] MHSDOLBEYNONRADSYS Document Id: [id number] documented in this encounter Miscellaneous Notes Miscellaneous - Holley Arreola R.N. - 12/05/2015 3:56 PM CDT Ambulatory Patient Summary [address] [id number] Visit Information Name: DHIRAJ LANDA [facility] Number: [id number] Current Date: 12/05/2015 15:56:04 Physicians Attending Provider: HOLLEY ARREOLA NP Primary Care Provider: HOLLEY ARREOLA NP DHIRAJ LANDA has been given the following [...] needed for Shortness of breath / Wheezing escitalopram (Lexapro 10 mg oral tablet) 1 Tablet(s), Oral, once a day Take 0.5 tab daily for 7 daysand then 1 tab daily New Routed to Printer fluticasone nasal (Flonase 0.05 mg/inh nasal spray) 2 Mobile(s), Nasal, two times a day fluticasone-salmeterol (Advair Diskus 250 mcg-50 mcg inhalation powder) 1 puff(s), Inhalation, two times a day *medroxyPROGESTERone (Depo-Provera Contraceptive 150 mg/mL intramuscular suspension) 1 Milliliter, Intramuscular, every 90 days sertraline (Zoloft 100 mg oral tablet) 1 Tablet(s), Oral, once a day Take 0.5 tab every other day for 7 days and then discontinue This is a CHANGE traZODone (traZODone 50 mg oral tablet) 1 Tablet(s), Oral, once a day * You have let us know that you are not taking this medication as listed. Please talk with your primary care provider or the health care provider who prescribed the medication as soon as possible. Stop Taking the Following Medications: Medication list as of 12-05-15 15:56 Attention: If you have any medications at [...] Electronically Signed By: HOLLEY ARREOLA NP Signed On:05-DEC-2015 15:55:53 Your Allergies & Intolerances Substance Reaction Symptoms [...] if you dont have one. Go to [email or web address] and click on Create Your Account. Then, follow the directions to complete the online form. Youll be asked for your [facility] number which you can find at the top of this document. Your Goals/Additional instructions: Source: [facility] [employer] Document Id: [id number] Miscellaneous - Holley Arreola R.N. - 12/05/2015 3:56 PM CDT Ambulatory Discharge Medication List [address] [id number] Visit Information Name: SYEDA DHIRAJ PAWEL [facility] Number: [id number] Visit Date: 12/05/2015 15:56:03 Attending Provider: HOLLEY ARREOLA [employer] Primary Care Provider: HOLLEY ARREOLA [employer] AILYN LANDAN PAWEL has been given the following list [...] needed for Shortness of breath / Wheezing escitalopram (Lexapro 10 mg oral tablet) 1 Tablet(s), Oral, once a day Take 0.5 tab daily for 7 daysand then 1 tab daily New Routed to Printer fluticasone nasal (Flonase 0.05 mg/inh nasal spray) 2 Mobile(s), Nasal, two times a day fluticasone-salmeterol (Advair Diskus 250 mcg-50 mcg inhalation powder) 1 puff(s), Inhalation, two times a day *medroxyPROGESTERone (Depo-Provera Contraceptive 150 mg/mL intramuscular suspension) 1 Milliliter, Intramuscular, every 90 days sertraline (Zoloft 100 mg oral tablet) 1 Tablet(s), Oral, once a day Take 0.5 tab every other day for 7 days and then discontinue This is a CHANGE traZODone (traZODone 50 mg oral tablet) 1 Tablet(s), Oral, once a day * You have let us know that you are not taking this medication as listed. Please talk with your primary care provider or the health care provider who prescribed the medication as soon as possible. Stop Taking the Following Medications: Medication list as of 12-05-15 15:56 Attention: If you have any medications at [...] of emergency. Electronically Signed By: HOLLEY ARREOLA [employer] Signed On:05-DEC-2015 15:55:53 Additional Information: Source: [facility] POWERCHART Document Id: [id number] Miscellaneous - Victoriano Vicente, L.P.N. - 12/05/2015 3:24 PM CDT Adult Engravings Polisher Intake/History Adult Engravings Polisher Intake/History Entered On: 12/05/2015 15:30 CDT Performed On: 12/05/2015 15:24 CDT by VICTORIANO VICENTE Intake Chief Complaint : Here to discuss Zoloft - just not working right. Ambulatory Intake Additional Information : Worked for a while but now it isn't. Taking 100 mg daily.Wants to discuss other options and possible change. PHQ 9 filled out. Temperature Core : 36.6 DegC(Converted to: 97.9 DegF) Peripheral Pulse Rate : 70 /min Respiratory Rate : 16 /min Systolic Blood Pressure : 111 mmHg Diastolic Blood Pressure : 62 mmHg NIBP Mean : 78 mmHg BP Location : Left upper extremity Blood Pressure Cuff Size : Large SpO2 : 98 % Height : 164 cm(Converted to: 5 ft 5 inch(es), 65 inch(es)) Actual Weight : 88.1 kg(Converted to: 194 lb 4 oz) Weight Source : Standing scale Dosing Weight Clinic : 88.1 kg Clinic BSA : 2 Body Mass Index : 32.76 kg/m2 VICTORIANO VICENTE - 12/05/2015 15:24 CDT General Info Languages : Belarusian Is Patient Female and 13-50 no hysterectomy : Yes Status : Patient denies Are you ? : No VICTORIANO VICENTE - 12/05/2015 15:24 CDT Subjective Pain Symptoms : No VICTORIANO VICENTE - 12/05/2015 15:24 CDT Dependent Habits Exposure to Tobacco Smoke : Care provider denies smoking in home, Other: former smoker Smoking Status : Former smoker Tobacco 2A : Yes Tobacco Use/Currently Using : No Tobacco Use/Last 30 Days : Yes Tobacco Use/Last 12 months : Yes Type : Cigarettes: Less than 20 per day Tobacco Use/Advised to Quit : Yes Alcohol Use : No VICTORIANO VICENTE - 12/05/2015 15:24 CDT Caffeine Use Grid Caffeine Use : Current Type : Soft drinks Frequency : Occasionally VICTORIANO VICENTE - 12/05/2015 15:24 CDT Recreational Drug Use Grid Drug Use : None VICTORIANO VICENTE - 12/05/2015 15:24 CDT Source: Draft Document Id: [id number] CDT!44 Miscellaneous - Dennys Nelson - 12/05/2015 3:08 PM CDT Quality Measures Quality Measures Entered On: 12/23/2015 15:08 CDT Performed On: 12/05/2015 15:08 CDT by DENNYS NELSON Depression PHQ-9 Score : 17 DENNYS NELSON - 12/23/2015 15:08 CDT Source: Draft Document Id: [id number] CDT!3 documented in this encounter Plan of Treatment Not on filedocumented as of this encounter Visit Diagnoses Not on filedocumented in this encounter
--- OUTSIDE RECORDS SUMMARY | 2022-04-07 13:18 | XMS_ITS | Encounter Summary ---
:1995 Author Organization [facility] Address [address] [place] [id number] Care Team Providers Name Role Phone Unavailable Primary Care Provider Unavailable Encounter Details Date Type Department Care Team Description 07/18/2014 Hospital Encounter HX [facility] Manny Diaz, N.P. [address] [place] [id number] (Wo rk) Social History Tobacco Use Types [...] How often do you attend [facility] or catholic Never 10/23/2020 services? 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 - 07/18/2014 2:23 PM CST [id number] CHIEF COMPLAINT/REASON FOR VISIT Cold symptoms. Asthma flaring up. HISTORY OF PRESENT ILLNESS Xin is a 19-year-old female who is here today with concerns about cold symptoms as well as a flare-up of her asthma. She reports that she has been sick for about a week. Her symptoms have included an occasional headache, sore throat, nasal congestion that has been purulent. In the past 2 to 3 days she has had a harder time breathing, felt kind of wheezy and tight in her chest. She has been using her Advair and Ventolin inhaler as well as her Flonase and is requesting refills on these today. She denies any known fever. She has had no abdominal complaints. MEDICATIONS Reviewed. New prescription today for a Z-North to be used as directed. As well as prednisone 20 mg, she will take 2 tablets daily for 5 days. Refills were provided on Flonase nasal spray 2 sprays both nostrils 2 times daily. Ventolin inhaler 2 puffs as directed for shortness of breath or wheezing. Advair Diskus 250/50 one inhalation 2 times daily. ALLERGIES Suprax. PAST MEDICAL/SURGICAL HISTORY Reviewed and unchanged. Please see EMR. VITAL SIGNS Temp 37.5, pulse 88, respirations 16, blood pressure 110/70, O2 saturation is 98% on room air. PHYSICAL EXAMINATION GENERAL: Xin is alert, oriented x3. Appears in no acute distress. HEENT: Head is normocephalic, atraumatic. Bilateral TMs are shiny, bruner, intact, with no erythema oreffusion present. Nasal mucosa is swollen and congested particularly on the right. Oropharynx is mildly erythematous. NECK: Supple with no lymphadenopathy. HEART: Rate is regular. S1, S2 is present. No murmur or rub. LUNGS: Clear with the exception of a slight inspiratory wheeze in the right lower lobe. IMPRESSION/REPORT/PLAN 1. Sinusitis. 2. Asthma. PLAN: Discussed with Carly based on her symptoms today I would suggest antibiotic treatment. A prescription for a Z-North to be used as directed has been written. I have also refilled her routine asthma medications Advair, albuterol and Flonase nasal spray. Additionally, I have given her some prednisone due to the wheezing and tightness she has been experiencing in her chest. She will take two 20 mg tablets daily for 5 days. Fluids are encouraged. She is to follow up with the clinic if her symptoms are not improving as anticipated. Ready to learn. No apparent learning barriers were identified. Learning preferences include listening. Explained diagnosis and treatment plan. Patient/Child/Caregiver expressed understanding of the content. Prasanna Munguia/antonia Electronically Signed By: ENEIDA DIAZ NP On: 08/12/2014 05:22 PM Source: [facility] MHSDOLBEYNONRADSYS Document Id: [id number] NG INSTRUCTOR documented in this encounter Procedure Notes Jeanette Dennison L.P.N. - 07/18/2014 2:42 PM CST Asthma Control Test (12 yrs and older) Asthma Control Test (12 yrs and older) Entered On: 07/18/2014 14:42 ACTING INSTRUCTOR Performed On: 07/18/2014 14:42 ACTING INSTRUCTOR by JEANETTE DENNISON ACT Past 4 weeks asthma interfered with [...] control : Completely controlled ACT Score : 24 JEANETTE DENNISON - 07/18/2014 14:42 ACTING INSTRUCTOR Source: [facility] POWERCHART Document Id: [id number] ACTING INSTRUCTOR!8 NG INSTRUCTOR documented in this encounter Miscellaneous Notes Miscellaneous - Jeanette Dennison L.P.N. - 07/18/2014 2:41 PM CST Health Assessment Health Assessment Entered On: 07/18/2014 14:41 ACTING INSTRUCTOR Performed On: 07/18/2014 14:41 ACTING INSTRUCTOR by JEANETTE DENNISON Health Assessment Complete Health Assessment Complete or Modified : Annual Health Assessment Annual Health Assessment Completed : Yes JEANETTE DENNISON - 07/18/2014 14:41 ACTING INSTRUCTOR Nutrition Nutrition Risk Factors by History Adult : None JEANETTE DENNISON - 07/18/2014 14:41 ACTING INSTRUCTOR Functional Current Daily Living Assistance : None JEANETTE DENNISON - 07/18/2014 14:41 ACTING INSTRUCTOR Dependent Habits Tobacco Use/Currently Using : No Exposure to Tobacco Smoke : Care provider denies smoking in home, Other: former smoker Smoking Status : Never smoker JEANETTE DENNISON - 07/18/2014 14:41 ACTING INSTRUCTOR Tobacco Use Grid Last Use : never JEANETTE DENNISON 07/18/2014 14:41 ACTING INSTRUCTOR Caffeine Use Grid Caffeine Use : Current Type : Soft drinks Frequency : Occasionally JEANETTE DENNISON - 07/18/2014 14:41 ACTING INSTRUCTOR Recreational Drug Use Grid Drug Use : None JEANETTE DENNISON 07/18/2014 14:41 ACTING INSTRUCTOR Psychosocial Domestic Abuse Concerns : None Muslim Preference : Jehovah'S WitnessJEANETTE Dumont 07/18/2014 14:41 ACTING INSTRUCTOR Advance Directive Advanced Directives : No Advance Directive Additional Information : No JEANETTE DENNISON 07/18/2014 14:41 ACTING INSTRUCTOR Educ Needs Learning Style Preference Adult Grid Patient : None Family : None JEANETTE DENNISON 07/18/2014 14:41 ACTING INSTRUCTOR Source: [facility] POWERCHART Document Id: [id number] ACTING INSTRUCTOR!33 NG INSTRUCTOR Miscellaneous - Jeanette Dennison L.P.N. - 07/18/2014 2:37 PM CST Adult Washing Machine Operator Intake/History Adult Washing Machine Operator Intake/History Entered On: 07/18/2014 14:40 ACTING INSTRUCTOR Performed On: 07/18/2014 14:37 ACTING INSTRUCTOR by JEANETTE DENNISON Intake Chief Complaint : cold symptoms with chest congestion tight cough, nasal congestion x 1 week Temperature Core : 37.5 DegC(Converted to: 99.5 DegF) Limb Alert : Left Peripheral Pulse Rate : 88 /min Respiratory Rate : 16 /min Systolic Blood Pressure : 110 mmHg Diastolic Blood Pressure : 70 mmHg NIBP Mean : 83 mmHg BP Location : Left upper extremity Blood Pressure Cuff Size : Large SpO2 : 98 % Oxygen Therapy : Room air Height : 164 cm(Converted to: 5 ft 5 inch(es), 65 inch(es)) JEANETTE DENNISON - 07/18/2014 14:37 ACTING INSTRUCTOR General Info Information Given By : Patient Languages : Congolese Is Patient Female and 13-50 no hysterectomy : Yes Status : Patient denies Are you ? : No JEANETTE DENNISON - 07/18/2014 14:37 ACTING INSTRUCTOR Subjective Pain Symptoms : No JEANETTE DENNISON - 07/18/2014 14:37 ACTING INSTRUCTOR Dependent Habits Tobacco Use/Currently Using : No Exposure to Tobacco Smoke : Care provider denies smoking in home, Other: former smoker Smoking Status : Never smoker JEANETTE DENNISON - 07/18/2014 14:37 ACTING INSTRUCTOR Tobacco Use Grid Last Use : never JEANETTE DENNISON - 07/18/2014 14:37 ACTING INSTRUCTOR Caffeine Use Grid Caffeine Use : Current Type : Soft drinks Frequency : Occasionally JEANETTE DENNISON - 07/18/2014 14:37 ACTING INSTRUCTOR Recreational Drug Use Grid Drug Use : None JEANETTE DENNISON 07/18/2014 14:37 ACTING INSTRUCTOR ID Screen Drug Resistant Organism : No Travel Within Last 21 Days : No JEANETTE DENNISON - 07/18/2014 14:37 ACTING INSTRUCTOR Source: [employer] Document Id: [id number] ACTING INSTRUCTOR!41 NG INSTRUCTOR documented in this encounter Plan of Treatment Not on filedocumented as of this encounter Visit Diagnoses Not on filedocumented in this encounter
--- OUTSIDE RECORDS SUMMARY | 2022-04-07 13:18 | XMS_ITS | Encounter Summary ---
:[address] [facility] Address [address] [place] [address] Care Team Providers Name Role Phone Unavailable Primary Care Provider Unavailable Encounter Details Date Type Department Care Team Description 03/19/2016 Hospital Encounter HX [facility] Francisca Arreola, POWDER LOADER, C.N.P. 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 - 03/19/2016 9:19 PM CDT Clinic Full Note CHIEF COMPLAINT/REASON FOR VISIT Depression follow up. HISTORY OF PRESENT ILLNESS Carly is a very pleasant 21-year-old female who comes in the clinic today for a depression followup. She was seen in primary care in November 2015 related to a depressed mood. She was initiated on Lexapro daily related to a depressed mood following the lack of efficiency related to daily Zoloft. She reports her daily Lexapro has not been effective related to her depressed mood. She reports she had increased suicidal thoughts related to the use of daily Lexapro. She reports she stopped her daily Lexapro approximately one month ago. 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 She reports her new job is going well. She deniesany heart palpitations, chest pain or shortness of breath. She denies any suicidal or homicidal ideation today. She is here today for further evaluation. She has no other concerns today. MEDICATIONS Advair Diskus 250 mcg-50 mcg inhalation powder, 1 puff(s), Inhalation, 2xDay, 3 refills Flonase 0.05 mg/inh nasal spray, 2 spray(s), Nasal, 2xDay, 3 refills Lexapro 10 mg oral tablet, 10 mg, 1 tab(s), Replaces previous 30 day script, PO, Daily, 1 refills traZODone 50 mg oral tablet, 50 [...] wisdom teeth (). SOCIAL HISTORY Date Time: 03/19/2016 15:34 Tobacco: Smoking Status: Former smoker Exposure: Care provider denies smoking in home, Other: former smoker Alcohol: Use: No Results Found Recreational Drugs: Use: None Type: No Results Found FAMILY HISTORY Grandmother (paternal):Positive: [place] - Breast cancer; Diabetes mellitus Grandfather (paternal):Positive: Diabetes mellitus SYSTEMS REVIEW As per HPI. VITAL SIGNS T: 37 ??C (Core) HR: 95 RR: 18 BP: 117 / 70 HT: 164 cm PHYSICAL EXAMINATION GENERAL: Alert and oriented. No acute distress. HEAD: Normocephalic/atraumatic. HEART: Regular rate and rhythm. No murmurs, gallops or rubs noted. LUNGS: Clear to auscultation bilaterally. No expiratory wheeze. No accessory muscles of respirationnoted. NEUROLOGICAL: Cranial nerves II-VII grossly intact and symmetric. She ambulates with a steady gait. IMPRESSION/REPORT/PLAN Depression Major Recurrent Mild I prescribed Effexor XL 37.5 mg daily for symptom management. Her BO-7 score was 10. Her PHQ-9 score was 14. She was instructed to follow up in primary care in 6 to 8 weeks for further evaluation. All questions were answered. She left in no acute distress. Orders: venlafaxine, 37.5 mg = 1 cap(s), PO, Daily, # 30 cap(s), 1 Refill(s), Maintenance, Pharmacy: [facility] Electronically Signed By: HOLLEY ARREOLA ARTIFICIAL GLASS EYE MAKER On: 03/21/2016 08:29 PM Source: [facility] POWERCHART Document Id: [id number] documented in this encounter Miscellaneous Notes Miscellaneous - Carlee Dash, L.P.N. - 03/19/2016 3:34 PM CDT Adult Pain Management Physician Intake/History Adult Pain Management Physician Intake/History Entered On: 03/19/2016 15:36 CDT Performed On: 03/19/2016 15:34 CDT by CARLEE DASH CHART SNATCHER, RT Intake Chief Complaint : F/u medications. Temperature Core : 37 DegC(Converted to: 98.6 DegF) Peripheral Pulse Rate : 95 /min Respiratory Rate : 18 /min Systolic Blood Pressure : 117 mmHg Diastolic Blood Pressure : 70 mmHg NIBP Mean : 86 mmHg BP Location : Left upper extremity Blood Pressure Cuff Size : Large Height : 164 cm(Converted to: 5 ft 5 inch(es), 65 inch(es)) CARLEE DASH LPN, RT - 03/19/2016 15:34 CDT General Info Languages : Somali Is Patient Female and 13-50 no hysterectomy : Yes Status : Patient denies Are you ? : No CARLEE DASH LPN, RT - 03/19/2016 15:34 CDT Subjective Pain Symptoms : No CARLEE DASH LPN, RT - 03/19/2016 15:34 CDT Dependent Habits Exposure to Tobacco Smoke : Care provider denies smoking in home, Other: former smoker Smoking Status : Former smoker Tobacco 2A : Yes Tobacco Use/Currently Using : No Tobacco Use/Last 30 Days : No Tobacco Use/Last 12 months : No CARLEE DASH LPN, RT - 03/19/2016 15:34 CDT Caffeine Use Grid Caffeine Use : Current Type : Soft drinks Frequency : Occasionally CARLEE DASH LPN, RT - 03/19/2016 15:34 CDT Recreational Drug Use Grid Drug Use : None CARLEE DASH LPN, RT - 03/19/2016 15:34 CDT [facility] Document Id: [id number] CDT!34 documented in this encounter Plan of Treatment Not on filedocumented as of this encounter Visit Diagnoses Not on filedocumented in this encounter
--- OUTSIDE RECORDS SUMMARY | 2022-04-07 13:18 | XMS_ITS | Encounter Summary ---
:1995 Author Organization [facility] Address [address] [place] [address] Care Team Providers Name Role Phone Unavailable Primary Care Provider Unavailable Encounter Details Date Type Department Care Team Description 06/20/2015 Hospital Encounter HX [facility] Francisca Arreola, ADMINISTRATIVE NURSING SUPERVISOR, C.N.P. [address] [place], [place] [address] (Wo rk) Social History [...] How often do you attend temple or anabaptism Never 10/23/2020 services? 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 documented as of this encounter Last Filed Vital Signs Vital Sign Reading Time Taken Comments Blood Pressure 131/74 06/20/2015 8:47 AM NETWORKING TECHNICIAN Pulse 81 06/20/2015 8:47 AM NETWORKING TECHNICIAN Temperature - - Respiratory Rate 18 06/20/2015 8:47 AM NETWORKING TECHNICIAN Oxygen Saturation - - Inhaled Oxygen Concentration - - Weight 88.3 kg (194 lb 10.7 oz) 06/20/2015 8:47 AM NETWORKING TECHNICIAN Height 164 cm (5' 4.57) 06/20/2015 8:47 AM NETWORKING TECHNICIAN Body Mass Index 32.83 06/20/2015 8:47 AM NETWORKING TECHNICIAN documented in this encounter Medications at Time [...] encounter H&P Notes Holley Arreola R.N. - 06/20/2015 8:41 AM CST [id number] CHIEF COMPLAINT/REASON FOR VISIT General medical exam. Depression. Sleep disorder. HISTORY OF PRESENT ILLNESS Dhiraj is a very pleasant 20-year-old female who comes into the clinic today for her annual physical. She is also here for a medication refill. She has a past medical history significant for a depressed mood. She reports she was prescribed Zoloft 50 mg daily approximately 6 months ago. She reports she was increased to Zoloft 100 mg daily. She reports she took the medication for approximately 3 months and was not able to return for a medication refill. She reports she has not taken her Zoloft medication for approximately 2 months. She reports the Zoloft medication was effective with regard to improving her overall depressed mood. She also reports the use of trazodone 50 mg daily at bedtime relatedto sleep. She reports the trazodone medication is effective with regard to helping promote sleep. She denies any heart palpitations, chest pain, or shortness of breath. She denies any concerns with appetite. She does have a past medical history significant for asthma. She is using Advair Diskus 350 mcg/50 mcg 1 puff 2 times per day for management of her asthma symptoms. She reports this medication has been effective with regard to improving her overall respiratory quality. She reports using her albuterol inhaler on a very intermittent basis. She has no concerns today regarding her breathing. She is here today for further evaluation. She has no other concerns today. MEDICATIONS Reviewed and reconciled. Refilled medication today trazodone 50 mg 1 tab daily. Zoloft 100 mg 1 tablet daily. I instructed her to take 1/2 tablet x1 week and then increase to 1 tablet daily. ALLERGIES Suprax. PAST MEDICAL/SURGICAL HISTORY PAST MEDICAL HISTORY: Reviewed and unchanged. PAST SURGICAL HISTORY: Reviewed and unchanged. SOCIAL HISTORY Dhiraj is a former tobacco user. She is a non-alcohol user. She has 1 daughter who is [id number] months old. She works at [facility] [employer]. 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 SYSTEMS REVIEW Denies extreme fatigue, unexplained weight loss/gain or concerns for depression, trouble concentrating or memory concerns. HEENT: Denies visual changes/disturbances, hearing changes/disturbances, difficulty chewing/swallowing. HEART: Denies palpitations, chest pain, or shortness of breath with or without exertion. GASTROINTESTINAL: Denies abdominal pain, difficulty having bowel movements or frequent episodes of diarrhea. GENITOURINARY: Denies urgency, frequency, or burning with urination. MUSCULOSKEL ETAL: Denies joint pain or muscle fatigue. NEUROLOGIC: Denies frequent headaches, dizziness or numbness/tingling in extremities. VITAL SIGNS Temperature 37.2, heart rate 81, respiration rate 18, blood pressure 131/74, oxygen saturation 97% on room air. Weight 88.3 kg. BMI 32.83. PHQ-9 score of 15. PHYSICAL EXAMINATION GENERAL: Alert and oriented. No acute distress. HEENT: Head normocephalic/atraumatic. Ears: TMs are clear bilaterally with bony landmarks noted within normal limits. Nares patent without erythema. Oropharynx without erythema or exudate. NECK: Supple, without thyromegaly. Full range of motion. LYMPHATIC: No axillary, cervical or supraclavicular lymphadenopathy. HEART: Regular S1, S2. No murmurs, rubs, or gallops noted. LUNGS: Clear to auscultation bilaterally. No prolonged expiratory phases, wheezing, rales, or rhonchi. ABDOMEN: Soft, nontender, nondistended. Bowel sounds present all 4 quadrants. No hepatosplenomegaly. BREASTS: Nontender with no masses/nodules palpated. No nipple discharge. GENITOURINARY: Deferred. SKIN: Without unusual rashes or suspicious lesions. EXTREMITIES: Equally strong and intact. No lower extremity edema. NEUROLOGICAL: Cranial nerves II to XII grossly intact and symmetric. She ambulates with a steady gait. IMPRESSION/REPORT/PLAN 1. General medical exam. 2. Depression. 3. Sleep disorder. PLAN: 1. General medical exam. She has no medical concerns at this time. She will be due for her 1st Pap smear in January of 2016. She will follow up in primary care as needed. 2. Depression. I refilled her Zoloft 100 mg 1 tablet daily prescription. She was instructed to follow up in 3 months for further evaluation. Her PHQ-9 score was 15 today. All questions were answered. 3. Sleep disorder. I refilled her trazodone 50 mg 1 tablet at bedtime prescription. She will follow up in primary care as needed. All questions were answered. She left in no acute distress. Holley Arreola N.P./antonia Electronically Signed By: HOLLEY ARREOLA COORDINATOR HOTELS On: 06/26/2015 01:56 PM Modified by and Electronically Signed by: HOLLEY ARREOLA COORDINATOR HOTELS On: 06/26/2015 01:56 PM Source: [facility] MHSDOLBEYNONRADSYS Document Id: [id number] ORKING TECHNICIAN documented in this encounter Miscellaneous Notes Miscellaneous - Holley Arreola RYamileth. - 06/20/2015 9:26 AM CST Ambulatory Patient Summary [address] [id number] Visit Information Name: SYEDA DHIRAJ PAWEL [facility] Number: [id number] Current Date: 06/20/2015 09:26:31 Physicians Attending Provider: HOLLEY ARREOLA COORDINATOR HOTELS Primary Care Provider: HOLLEY ARREOLA COORDINATOR HOTELS DHIRAJ LANDA has been given the following [...] nasal (Flonase 0.05 mg/inh nasal spray) 2 Arlington(s), Nasal, two times a day fluticasone-salmeterol (Advair Diskus 250 mcg-50 mcg inhalation powder) 1 puff(s), Inhalation, two times a day medroxyPROGESTERone (Depo-Provera Contraceptive 150 mg/mL intramuscular suspension) 1 Milliliter, Intramuscular, every 90 days sertraline (Zoloft 100 mg oral tablet) 1 Tablet(s), Oral, once a day Take 0.5 tablet x 1 week and then 1 tablet daily [facility] [address] [place] [address] traZODone (traZODone 50 mg oral tablet) 1 Tablet(s), Oral, once a day [facility] [address] [place] [address] Stop Taking the Following Medications: Medication list as of 06-20-15 09:26 Attention: If you have any medications at [...] of emergency. Electronically Signed By: HOLLEY ARREOLA COORDINATOR HOTELS Signed On:20-JUN-2015 09:26:23 Your Allergies & Intolerances Substance Reaction Symptoms [...] if you dont have one. Go to [email or web address] and click on Create Your Account. Then, follow the directions to complete the online form. Youll be asked for your [facility] number which you can find at the top of this document. Your Goals/Additional instructions: Source: [facility] POWERCHART Document Id: [id number] ORKING TECHNICIAN Miscellaneous - Holley Arreola R.N. - 06/20/2015 9:26 AM CST Ambulatory Discharge Medication List [address] [place] [id number] Visit Information Name: DHIRAJ LANDA [facility] Number: [id number] Visit Date: 06/20/2015 09:26:29 Attending Provider: HOLLEY ARREOLA COORDINATOR HOTELS Primary Care Provider: HOLLEY ARREOLA COORDINATOR HOTELS DHIRAJ LANDA has been given the following [...] nasal (Flonase 0.05 mg/inh nasal spray) 2 Arlington(s), Nasal, two times a day fluticasone-salmeterol (Advair Diskus 250 mcg-50 mcg inhalation powder) 1 puff(s), Inhalation, two times a day medroxyPROGESTERone (Depo-Provera Contraceptive 150 mg/mL intramuscular suspension) 1 Milliliter, Intramuscular, every 90 days sertraline (Zoloft 100 mg oral tablet) 1 Tablet(s), Oral, once a day Take 0.5 tablet x 1 week and then 1 tablet daily Routed to [address] [id number] traZODone (traZODone 50 mg oral tablet) 1 Tablet(s), Oral, once a day Routed to [address] [id number] Stop Taking the Following Medications: Medication list as of 06-20-15 09:26 Attention: If you have any medications at [...] of emergency. Electronically Signed By: HOLLEY ARREOLA COORDINATOR HOTELS Signed On:20-JUN-2015 09:26:23 Additional Information: Source: [facility] POWERCHART Document Id: [id number] ORKING TECHNICIAN Miscellaneous - Teresa Parkinson L.P.N. - 06/20/2015 8:47 AM CST Adult Lodging House Keeper Intake/History Adult Lodging House Keeper Intake/History Entered On: 06/20/2015 8:50 NETWORKING TECHNICIAN Performed On: 06/20/2015 8:47 NETWORKING TECHNICIAN by TERESA PARKINSON LPN Intake Chief Complaint : EST care and physical, med. refill Temperature Core : 37.2 DegC(Converted to: 99.0 DegF) Peripheral Pulse Rate : 81 /min Respiratory Rate : 18 /min Systolic Blood Pressure : 131 mmHg Diastolic Blood Pressure : 74 mmHg NIBP Mean : 93 mmHg BP Location : Left upper extremity Blood Pressure Cuff Size : Regular SpO2 : 97 % Oxygen Therapy : Room air Height : 164 cm(Converted to: 5 ft 5 inch(es), 65 inch(es)) Actual Weight : 88.3 kg(Converted to: 194 lb 11 oz) Weight Source : Standing scale Dosing Weight Clinic : 88.3 kg Clinic BSA : 2.01 Body Mass Index : 32.83 kg/m2 TERESA PARKINSON LPN - 06/20/2015 8:47 NETWORKING TECHNICIAN General Info Languages : Syriac Is Patient Female and 13-50 no hysterectomy : Yes Status : Patient denies Are you ? : No TERESA PARKINSON LPN - 06/20/2015 8:47 NETWORKING TECHNICIAN Subjective Pain Symptoms : No TERESA PARKINSON LPN - 06/20/2015 8:47 NETWORKING TECHNICIAN Dependent Habits Tobacco Use/Currently Using : No Exposure to Tobacco Smoke : Care provider denies smoking in home, Other: former smoker Smoking Status : Former smoker Alcohol Use : No TERESA PARKINSON LPN - 06/20/2015 8:47 NETWORKING TECHNICIAN Caffeine Use Grid Caffeine Use : Current Type : Soft drinks Frequency : Occasionally TERESA PARKINSON LPN - 06/20/2015 8:47 NETWORKING TECHNICIAN Recreational Drug Use Grid Drug Use : None TERESA PARKINSON LPN - 06/20/2015 8:47 NETWORKING TECHNICIAN Source: [facility] POWERCHART Document Id: [id number] NETWORKING TECHNICIAN!39 ORKING TECHNICIAN documented in this encounter Plan of Treatment Not on filedocumented as of this encounter Visit Diagnoses Not on filedocumented in this encounter
--- OUTSIDE RECORDS SUMMARY | 2022-04-07 13:18 | XMS_ITS | Encounter Summary ---
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 - 04/25/2015 3:00 PM CDT S: This patient is here today with c/o vulvar irritation and some odor. These symptoms have been present for about 7-10 days. This patient is sexually active and denies change in partner. Using nothing for control. She has used depo provera in the past, but missed her dose in January of this year.She would like to restart. Denies dyspareunia. She has tried nothing to improve symptoms. Denies changes in soaps, lotions, laundry detergents. Denies recent medication use. She has had these symptoms in the past. Lmp amenorrheic with depo provera use Past medical: Closed fracture of tibia and fibula Allergic asthma NOS with status asthmaticus Supervision of Normal First Otitis Media Acute NOS Pneumonia NOS Varicella Zoster Vaginosis Bacterial Decreased Fetus Movement Affecting Preg Management Bleeding Vaginal Preg >22 Week Antepartum Carrier Group B Streptococcus Delivery Vaginal Normal Spontaneous () Medications: albuterol: 2 puff(s),Inhalation,As Directed,PRN (Shortness of breath / Wheezing) fluticasone nasal: 2 spray(s),Nasal,2xDay fluticasone-salmeterol: 1 puff(s),Inhalation,2xDay medroxyPROGESTERone: 150 mg,1 mL,IM,q3mo sertraline: 100 mg,1 tab(s),PO,Daily traZODone: 50 mg,1 tab(s),PO,Daily O: External genitalia, vulva appears normal There is mild erythema at the vaginal introitus, no lesions present. speculum exam reveals small amount white vaginal discharge, goss are pink and well rugated. Cervix appears multiparous, without lesion. negative whiff test. Bimanual exam small firm mobile nontender uterus, no adnexal masses. A/P: vulvar irritation, discharge, odor. wet prep collected, pending hcg today, return in 2 weeks for repeat hcg and depo provera injection. she is advised to abstain from intercourse until return visit. Electronically Signed By: MAUREEN SINGER ELECTRIC SEALING MACHINE OPERATOR On: 04/25/2015 03:06 PM Source: [facility] POWERCHART Document Id: [id number] documented in this encounter Miscellaneous Notes Miscellaneous - Maureen Singer, RGonzaloN. - 04/25/2015 4:06 PM CDT From: MAUREEN SINGER ELECTRIC SEALING MACHINE OPERATOR Sent: 04/25/2015 16:06:26 CDT patient aware of hcg results and wet prep. she will try baking soda soaks and OTC remedies as needed. Source: [facility] POWERCHART Document Id: [id number] Electronically signed by Stuart, [facility] Vegetable Buncher [id number] at 01/10/2017 5:16 PM CDT Miscellaneous - Nena Ocampo L.P.N. - 04/25/2015 2:40 PM CDT Adult Steward Racetrack Intake/History Adult Steward Racetrack Intake/History Entered On: 04/25/2015 14:42 CDT Performed On: 04/25/2015 14:40 CDT by NENA OCAMPO LPN Intake Chief Complaint : Possible yeast infection LMP Date : unknown Heart Rhythm : Regular Systolic Blood Pressure : 124 mmHg Diastolic Blood Pressure : 70 mmHg NIBP Mean : 88 mmHg BP Location : Left upper extremity Blood Pressure Cuff Size : Regular Height : 164 cm(Converted to: 5 ft 5 inch(es), 65 inch(es)) Actual Weight : 89.6 kg(Converted to: 197 lb 9 oz) Weight Source : Standing scale Dosing Weight Clinic : 89.6 kg Clinic BSA : 2.02 Body Mass Index : 33.31 kg/m2 NENA OCAMPO LPN - 04/25/2015 14:40 CDT General Info Information Given By : Patient Languages : Vietnamese Is Patient Female and 13-50 no hysterectomy : Yes Status : Patient denies Are you ? : No NENA OCAMPO LPN - 04/25/2015 14:40 CDT Subjective Pain Symptoms : No NENA OCAMPO LPN - 04/25/2015 14:40 CDT Dependent Habits Tobacco Use/Currently Using : No Exposure to Tobacco Smoke : Care provider denies smoking in home, Other: former smoker Smoking Status : Former smoker Alcohol Use : No NENA OCAMPO LPN - 04/25/2015 14:40 CDT Caffeine Use Grid Caffeine Use : Current Type : Soft drinks Frequency : Occasionally NENA OCAMPO LPN - 04/25/2015 14:40 CDT Recreational Drug Use Grid Drug Use : None NENA OCAMPO LPN - 04/25/2015 14:40 CDT Source: [facility] POWERCHART Document Id: [id number] CDT!37 documented in this encounter Plan of Treatment Not on filedocumented as of this encounter Procedures Procedure Name Priority Date/Time Associated Comments Diagnosis TEST, U Routine 04/25/2015 3:15 PM Resu lts for this CDT procedure are i n the results section. WET PREP EXAM, Routine 04/25/2015 2:50 PM Results for this UROGENITAL CDT procedure are i n the results section. documented in this encounter Results Test, Qualitative, Urine (04/25/2015 3:15 PM CDT) Patholo gist Method Time Signature HXBeta-hCG Negative Negative POWERCHART Qualitative Urine Specimen (Source) Anatomical Collection Method Collection Time Re ceived Time Location / / Volume Laterality Urine 04/25/2015 3:15 PM CDT Maureen Singer APRN, [facility] URINE ORDERABLES Performing Organization Address City/State/ZIP Code Phon e Number POWERCHART Wet Prep Exam, Urogenital (04/25/2015 2:50 PM CDT) P athologist Signature HXWet Prep POWERCHART HXFinal No yeast, POWERCHART Trichomonas , or clue cells seen. Specimen (Source) Anatomical Collection Method Collection Time Re ceived Time Location / / Volume Laterality Vagina 04/25/2015 2:50 PM CDT Maureen Singer APRN [facility] MICROBIOLOGY - GENERAL ORDERABLES Performing Organization Address City/State/ZIP Code Phon e Number POWERCHART documented in this encounter Visit Diagnoses Not on filedocumented in this encounter
--- OUTSIDE RECORDS SUMMARY | 2022-04-07 13:18 | XMS_ITS | Encounter Summary ---
:1995 Author Organization [facility] Address [address] [place] [id number] Care Team Providers Name Role Phone Unavailable Primary Care Provider Unavailable Encounter Details Date Type Department Care Team Description 12/26/2013 - Hospital Encounter HX [facility] Carlee Alfonso 12/29/2013 ZHEN Baker M.D. [address] [place] [id number] Social History Tobacco Use Types Packs/Day [...] How often do you attend [facility] Never 10/23/2020 services? Do you [...] Date Recorded Female 08/12/2017 10:51 AM [employer] documented as of this encounter Last Filed Vital Signs Vital Sign Reading Time Taken Comments Blood Pressure 126/79 12/29/2013 2:00 AM CDT Pulse 78 12/28/2013 8:00 PM CDT Temperature - - Respiratory Rate 18 12/28/2013 12:05 PM CDT Oxygen Saturation - - Inhaled Oxygen Concentration - - Weight - - Height 170 cm (5' 6.93) 12/29/2013 7:43 AM CDT Body Mass Index - - [...] tablet prenat.vits,hernandez,min-iron- Take 1 tablet by 0 01/0 01/201402/19/2019 folic ( VITAMIN) mouth daily. tablet documented as of this encounter Plan of Treatment Not on filedocumented as of this encounter Visit Diagnoses Not on filedocumented in this encounter
--- OUTSIDE RECORDS SUMMARY | 2022-04-07 13:18 | XMS_ITS | Encounter Summary ---
:1995 Author Organization [facility] Address [address] [place] [id number] Care Team Providers Name Role Phone Unavailable Primary Care Provider Unavailable Encounter Details Date Type Department Care Team Description 12/26/2013 - Hospital Encounter HX [facility] Carlee Alfonso 12/29/2013 ZHEN Baker M.D. [address] [place] [id number] Social History Tobacco Use Types Packs/Day [...] 10/23/2020 relatives? How often do you attend yazidi or temple Never 10/23/2020 services? 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 documented as of this encounter Last Filed Vital Signs Vital Sign Reading Time Taken Comments Blood Pressure 131/71 12/29/2013 7:43 AM CDT Pulse 79 12/29/2013 7:43 AM CDT Temperature - - Respiratory Rate 18 12/29/2013 7:43 AM CDT Oxygen Saturation - - Inhaled Oxygen Concentration - - Weight 95 kg (209 lb 7 oz) 12/26/2013 4:04 PM CDT Height 170 cm (5' 6.93) 12/29/2013 5:29 AM CDT Body Mass Index 32.87 12/26/2013 4:04 PM CDT Body Mass Index Percentile 96.45 % 12/29/2013 5:29 AM CD T Growth Chart: [facility] (Girls, 2-20 Years) documented in this encounter Discharge Summaries Lexii Parkinson R.N. - 12/29/2013 12:08 PM CDT Hospital Discharge Instructions [address] [address] Patient Discharge Instructions Name: DHIRAJ JOSEPH Current Date: 12/29/2013 12:08:48 : 1995 12:00 AM [facility] Number: [id number] Patient Address: [address] [place] [phone] Patient Primary Care Provider: Name: PCP, UNASSIGNED - RW Phone: Discharge Diagnosis: [facility] would like to thank you for allowing us to assist you with yourhealthcare needs. The following includes patient education materials and information regarding your injury/illness. Comment: DHIRAJ JOSEPH has been given the following list of follow-up instructions, medication list and patient education materials: Follow-up Instructions Discharge Instruction General Activity Limitations: Other (Special Instructions) Special Instructions: No tampons and no intercourse for 6 weeks. Call if bleeding greater than 1 pad/hour for 3 hrs, increased pain, signs of breast infection, depression, difficulty with urination. Call if severe headache, visual changes, upper abdominal pain. Medications Medication/Strength How to Take Indications/Special Instructions/Comments/Notes for Patient Medication Changes/Routing albuterol (albuterol 90 mcg/inh inhalation aerosol) See Instructions, as needed for Shortness of breath / Wheezing 1-2 puffs Inhalation q4-6hr as needed for asthma albuterol-ipratropium (DuoNeb inhalation solution) 1 Each, Nebulized inhalation, four times a day asneeded for Shortness of Breath fluticasone nasal (Flonase 0.05 mg/inh nasal spray) 2 Ambridge(s), Nasal, two times a day fluticasone-salmeterol (Advair Diskus 250 mcg-50 mcg inhalation powder) 1 puff(s), Inhalation, two times a day ibuprofen (ibuprofen 200 mg oral capsule) See Instructions 3 cap(s) PO every 6 hrs prn pain. OTC New multivitamin, ( Multivitamins) See Instructions 1 tab daily Stop Taking the Following Medications: Medication list as of 12-29-13 12:08 Attention: If you have any medications at home that are not on this list, DO NOT take them until youcontact your provider for clarification. Give a copy of your medication list to your primary care provider. Update your medication list any time medications or doses are changed and carry your medication list at all times in case of emergency. Comment: Post- educational packets given Electronically Signed By: CARLEE MADRID MD Signed On:29-DEC-2013 07:20:21 Your Upcoming Appointments Date Time Location Reason Provider 01/09/2014 13:15 [facility] UR COORDINATOR 39 wk ob check Bridget Harrington MD 02/08/2014 10:15 [facility] UR COORDINATOR 6 week PP Abe ESPINOZA, Maureen Madrid, DHIRAJ JOSEPH , have received the attached patient education materials/instructionsand have verbalized understanding: Patient Signature Date Time Care Provider Signature Date Time [address]69[address] After a Vaginal After having a baby, your body may be very tired. It can take time to recover from a vaginal delivery. You may stay in the hospital or center from 1 to 4 days. Or, you may only need to stay overnight. In some cases, you may be able to go home the same day. Right After the Delivery Your temperature and blood pressure will be taken until they are stable. A nurse or other healthcareprovider will observe you as you rest. You may have afterbirth pains. These are cramps caused by theuterus shrinking. Sanitary pads are used to absorb the discharge of the uterine lining. To ensure that you arent bleeding too much, the pad will be checked. And the firmness of your uterus will be checked. To do this, a nurse will gently push down on your abdomen. If you had anesthesia, youll be watched closely until you can feel and move your toes. If you have perineal pain (pain between the vagina and anus), an ice pack can help. Care While still in the hospital or center, youll learn how to hold and feed your baby. Youll also be given tips on care, bathing your baby, and instruction. If youre not planning to breastfeed, discuss your options with your healthcare provider. Preparing to Go Home You may be anxious to go home as soon as possible. Before you and your baby go home, a healthcare provider will check to be sure you are healthy enough to take care of your baby and yourself. Youre ready to go home when: ?? You can walk to the bathroom without help. ?? You can eat solid food and swallow pills (if needed). ?? You have no sign of infection or other health problems, including fever. Before leaving the hospital or center, youll be given written instructions for home self-care after vaginal delivery. Be sure to follow these instructions carefully. If you have questions or concerns, talk about them now. If You Had Stitches You may have received stitches in the skin near your vagina. The stitches might have closed an episiotomy (an incision that enlarges the opening of the vagina). Or you may have needed stitches to repair torn skin. Either way, your stitches should dissolve within weeks. Until then, you can help reduce discomfort, aid healing, and reduce your risk of infection by keeping the stitches clean. These tips can help: ?? Gently wipe from front to back after you urinate or have a bowel movement. ?? After wiping, spray warm water on the area. Or you can have a sitz bath. This means sitting in a tub with a few inches of water in it. Then pat the area dry or use a hairdryer on a cool setting. ?? Do not use soap or any solution except water on the area. ?? You can take a shower unless told not to. ?? Change sanitary pads at least every 2-[address] hours[address] ?? Place cold or heat packs on the area as directed by your doctors or nurses. Keep a thin towel between the pack and your skin. ?? Sit on firm seats so the stitches pull less. Follow-Up Schedule a follow-up exam with your healthcare provider for about 6 weeks after delivery. During this exam, your uterus and vaginal area will be checked. Contact your healthcare provider if you think you or your baby are having any problems. Call Your Healthcare Provider Right Away If You Have: A fever of 100.4??F or higher. Bleeding that requires a new sanitary pad after an hour, or large blood clots. Redness, discharge, or incision pain worse than you had in the hospital. Burning, pain, red streaks, or lumpy areas in your breasts. Cracks, blisters, or blood on your nipples. Burning or pain when you urinate. Nausea or vomiting. Dizziness or fainting. Feelings of extreme sadness or anxiety, or a feeling that you dont want to be with your baby. Abdominal pain that isnt relieved with medication. Vaginal discharge that has a bad odor. No bowel movement for 5 days. Redness, warmth, or pain in the lower leg. ?? [id number] [facility], [address] [place] [address], [place] [address]. All rights reserved. This information is not intended as a substitute for professional medical care. Always follow your healthcare professional's instructions. This document has images extracted. Please consider using [employer] for all your patient education needs. Source: [facility] POWERCHART Document Id: [id number] Lexii Parkinson R.N. - 12/29/2013 12:08 PM CDT Hospital Discharge Medication List [facility] [address] [place] [address] Discharge Medication List Name: DHIRAJ JOSEPH Current Date: 12/29/2013 12:08:47 : 1995 12:00 AM [facility] Number: [id number] Patient Address: [address] [place] [phone] Patient Primary Care Provider: Name: PCP, UNASSIGNED - RW Phone: Discharge Diagnosis: [facility] in [place] would like to thank you for allowing us to assist you with your healthcare needs. The following includes patient education materials and information regarding yourinjury/illness. Medications Medication/Strength How to Take Indications/Special Instructions/Comments/Notes for Patient Medication Changes/Routing albuterol (albuterol 90 mcg/inh inhalation aerosol) See Instructions, as needed for Shortness of breath / Wheezing 1-2 puffs Inhalation q4-6hr as needed for asthma albuterol-ipratropium (DuoNeb inhalation solution) 1 Each, Nebulized inhalation, four times a day asneeded for Shortness of Breath fluticasone nasal (Flonase 0.05 mg/inh nasal spray) 2 Ambridge(s), Nasal, two times a day fluticasone-salmeterol (Advair Diskus 250 mcg-50 mcg inhalation powder) 1 puff(s), Inhalation, two times a day ibuprofen (ibuprofen 200 mg oral capsule) See Instructions 3 cap(s) PO every 6 hrs prn pain. OTC New multivitamin, ( Multivitamins) See Instructions 1 tab daily Stop Taking the Following Medications: Medication list as of 12-29-13 12:08 Attention: If you have any medications at home that are not on this list, DO NOT take them until youcontact your provider for clarification. Give a copy of your medication list to your primary care provider. Update your medication list any time medications or doses are changed and carry your medication list at all times in case of emergency. Comment: Electronically Signed By: CARLEE MADRID MD Signed On:29-DEC-2013 07:20:21 Source: [facility] POWERCHART Document Id: [id number] Carlee Madrid M.D. - 12/29/2013 7:11 AM CDT Vaginal Delivery, Gestational HTN OB DISCHARGE SUMMARY Admission Date: 12/26/13 Discharge Date: 12/29/13 PROCEDURE(S): vaginal delivery, magnesium sulfate seizure prophylaxis DISCHARGE TO: Home MEDICATIONS: Advair 250/50 BID, prn Albuterol neb, MVI one daily, OTC Ibuprofen 200mg 3 pills Q 6 hrprn Patient's prescription was not Faxed to pharmacy ADMITTING DIAGNOSIS: at 37 weeks, labor DISCHARGE DIAGNOSIS: same, gestational hypertension DIET: Regular diet HOSPITAL COURSE: Admitted in labor, had several BPs in the 140s/80 range prior to delivery. No symptoms of preeclampsia, labs normal. Stage I: Patient is a 18 yo at 37w4d weeks who was admitted for term prom. Membranes ruptured at 9am yesterday course complicated by teen and GBS positive. She had an epidural, GBS positive, no IV narcotics, 9 mu Pitocin. Cat 1-2 surveillance through first stage with episodic tachycardia with resolution and moderate variability. Stage II: Pushed for approximately 2 hours to deliver a 7#0oz at 16:59, Apgars 8,9. No difficulty with delivery of shoulders. Stage III: Placenta delivered intact at 17:03 via simple expression. Uterus firm low and hemostatic with Pitocin and massage. No perineal laceration on inspection. EBL 200. Mom and baby doing well. Status Post over intact perineum. Viable baby girl. Apgars assigned by Down 8 and 9. TELMA position. Shoulders delivered easily. Pitocin and uterine massage for delivery of placenta intact with 3 vessel cord. Cord bloods obtained. Cord gases requested. No cervical, perineal or rectal lacerations. Bilateral labial lacerations first degree repaired with 3-0 Vicryl interrupted stitches.Sponges, needle counts correct. No sponges retained. Excellent hemostasis. RYL=476. Placenta to pathology for prolonged rupture and episodes of tachycardia. course uneventful, breast feeding. Baby's name is Ana Maria DISCHARGE EXAM: VITAL SIGNS Temperature Axillary: 36.8 DegC Temperature Core: 36.8 DegC Temperature Oral: 36.3 DegC Apical Heart Rate: 86 /min Peripheral Pulse Rate: DateCorrection Respiratory Rate: 18 /min SpO2: 98 % BLOOD PRESSURE Systolic Blood Pressure: 132 mmHg Diastolic Blood Pressure: 84 mmHg MEASUREMENTS Height: 170 cm Gen: No apparent distress Uterus: non tender at U-1, firm [employer]: minimal bleeding Extr: warm no edema, non tender in groin and popliteal fossa LABS: WBC: 15.8 x10(9)/L (12/28/13) RBC: 3.78 x10(12)/L (12/28/13) Hgb: 11.7 g/dL (12/28/13) Hct: 34.4 % (12/28/13) Platelet: 195 x10(9)/L (12/28/13) CONDITION ON DISCHARGE: Good LEVEL OF ACTIVITY: Nothing per vagina for 6 weeks APPOINTMENTS: 6 weeks check with nurse practitioner CONTRACEPTION: Unsure-didn't want to talk about it at discharge BLOOD TYPE: A+ RUBELLA: Immune TDAP given:during REFERRALS: none OTHER ORDERS/COMMENTS: No driving while taking narcotic pain medication. Call if bleeding greater than 1 pad an hour, difficulty with urination, increased pain, fever greater than 101, symptoms of depression, severe headache, epigastric pain or visual changes or any other concerns. DISCHARGE SUMMARY DICTATED?: See Hospital Course information above Time spent in discharging patient - Less than 30 minutes. Electronically Signed By: CARLEE MADRID MD On: 12/29/2013 07:17 AM Modified by and Electronically Signed by: CARLEE MADRID MD On: 12/29/2013 07:17 AM Source: [facility] POWERCHART Document Id: [id number] documented in this encounter Medications at Time [...] directed. prenat.vits,hernandez,min-iron- Take 1 tablet by 0 /01/201410/06/2017 folic ( VITAMIN) mouth. tablet prenat.vits,hernandez,min-iron- Take 1 tablet by 0 01/201402/19/2019 folic ( VITAMIN) mouth daily. tablet documented as of this encounter Progress Notes Carlee Madrid M.D. - 12/28/2013 8:19 AM CDT PPD #1 SUBJECTIVE: No complaints, lochia decreasing, vulvar pain not worsening, not dizzy, no difficulty voiding. Breast feeding without difficulty. Denies SOTOMAYOR, visual changes, abdominal pain OBJECTIVE: VITAL SIGNS Temperature Axillary: 36.8 DegC Temperature Core: 37.5 DegC Temperature Oral: 36.3 DegC Apical Heart Rate: 86 /min Peripheral Pulse Rate: DateCorrection Respiratory Rate: 18 /min SpO2: 97 % BLOOD PRESSURE All BPs < 140/90 since 1999 UO 2700ml since delivery--voided 600ml at 0630 MEASUREMENTS Height: 170 cm general - NAD uterus at U-1, firm, NT extremities- non tender, trace edema Hgb: 11.7 g/dL (12/28/13) Hct: 34.4 % (12/28/13) Platelet: 195 x10(9)/L (12/28/13) Creatinine: 0.66 mg/dL (12/28/13) AST: 24 U/L (12/28/13) ALT: 15 U/L (12/28/13) ASSESSMENT: PPD # 1 - Doing well GHTN - no severe range BPs during labor or after delivery, negative urine protein, normal labs. On Mg SO4 BPs normal since 1999, diuresing. -stop Mg -routine pp care Electronically Signed By: CARLEE MADRID MD On: 12/28/2013 08:24 AM Source: [facility] POWERCHART Document Id: [id number] Bridget Harrington M.D. - 12/27/2013 7:04 PM CDT Nurse notification Document Contains Addenda Addendum by BRIDGET HARRINGTON MD on 27 Dec 2013 21:24 CDT Patient denies headache, blurry vision and abdominal pain. Discussed recommendation to start Magnesium for seizure prophylaxis. Explained risks including but not limited to malaise, flushness and pulmonary edema. Explained to patient duration of Magnesium for 24 hours. Explained that discharge might be delayed due to need to monitor bp. Explained that if BPs are elevated after stopping Magnesium consideration will be given to starting an oral medication. All questions answered. Modified by and Electronically Signed by: BRIDGET HARRINGTON MD On: 12/27/2013 09:24 PM Addendum by BRIDGET HARRINGTON MD on 27 Dec 2013 20:45 CDT Labs results reviewed. Hct: 34.4 % (12/27/13) Hgb: 12.0 g/dL (12/27/13) MCH: 31.9 pg (09/26/13) MCHC: 34.9 gm/dL (09/26/13) MCV: 90.3 fL (12/27/13) Platelet: 215 x10(9)/L (12/27/13) Neutro Absolute: 9.40 10(9)/L (12/26/13) RBC: 3.81 x10(12)/L (12/27/13) WBC: 22.4 x10(9)/L (12/27/13) RDW: 12.7 % (12/27/13) [place] Absolute: 0.72 x10(9)/L (12/26/13) Eos Absolute: 0.11 x10(9)/L (12/26/13) Baso Absolute: 0.02 x10(9)/L (12/26/13) Lymph Absolute: 2.12 x10(9)/L (12/26/13) Sodium Lvl: 134 mmol/L (12/27/13) Potassium Lvl: 3.5 mmol/L (12/27/13) Chloride: 101 mmol/L (12/27/13) CO2: 19 mmol/L (12/27/13) Carbon Dioxide: 25 mmol/L (10/24/13) Glucose Lvl: 123 mg/dL (12/27/13) Creatinine: 0.74 mg/dL (12/27/13) Calcium Lvl: 8.6 mg/dL (12/27/13) BUN: 6 mg/dL (12/27/13) EGFR (MDRD): >60 mL/min/1.73m2 (12/27/13) EGFR (MDRD): >60 mL/min/1.73m2 (12/27/13) AGAP: 14 mmol/L (12/27/13) Creatinine Lvl: 0.55 mg/dL (10/24/13) Albumin Lvl: 2.8 g/dL (12/27/13) Protein Total: 5.6 g/dL (12/27/13) AST: 24 U/L (12/27/13) ALT: 14 U/L (12/27/13) Alk Phos: 93 U/L (10/24/13) Alkaline Phosphatase: 131 U/L (12/27/13) Bili Total: 0.3 mg/dL (12/27/13) Bps remain persistently elevated 140s/90s. Given persistent blood pressure elevation and young age patient is at risk for preeclampsia and eclampsia. Seizure prophylaxis with Magnesium recommended. Motrin discontinued. Modified by and Electronically Signed by: BRIDGET HARRINGTON MD On: 12/27/2013 08:45 PM ANGIE Schwartz called and notified me of bps 130-140/70-80s. Patient without symptoms associated with preeclampsia. Prior to assuming case of the patient there were 2 elevated BPs. During my care of her labor her BPs remained normal. The patient likely has gestational HTN. Will obtain labwork to evaluate for HELLP. CMP, CBC ordered. Will continue to monitor closely. Electronically Signed By: BRIDGET HARRINGTON MD On: 12/27/2013 07:07 PM Source: [facility] POWERCHART Document Id: [id number] documented in this encounter H&P Notes Carlee Madrid M.D. - 12/26/2013 4:06 PM CDT OB Admission-SROM Document Contains Addenda Addendum by BRIDGET HARRINGTON MD on 27 Dec 2013 13:29 CDT S: Patient comfortable with epidural O: VITAL SIGNS Temperature Core: 37.5 DegC Temperature Oral: 37.8 DegC Apical Heart Rate: 86 /min Peripheral Pulse Rate: 90 /min Respiratory Rate: 16 /min SpO2: 96 % BLOOD PRESSURE Systolic Blood Pressure: 111 mmHg Diastolic Blood Pressure: 54 mmHg MEASUREMENTS Height: 170 cm pitocin 9mu SVE: 9.5/100/-1 AROM digitally clear fluid EFM: 140s +qa no decels +mod variability TOCO: q2-4 A: Cat 1 tracing P: Continue close monitoring Modified by and Electronically Signed by: BRIDGET HARRINGTON MD On: 12/27/2013 01:29 PM Addendum by BRIDGET HARRINGTON MD on 27 Dec 2013 10:43 CDT Late Entry for approximately 9am. S: The patient has awakened from her nap. Patient is comfortable with her epidural. VITAL SIGNS Temperature Core: 37.5 DegC Temperature Oral: 37.9 DegC Apical Heart Rate: 86 /min Peripheral Pulse Rate: 90 /min Respiratory Rate: 16 /min SpO2: 96 % BLOOD PRESSURE Systolic Blood Pressure: 111 mmHg Diastolic Blood Pressure: 54 mmHg MEASUREMENTS Height: 170 cm Pitocin 9mu SVE: deferred SROM, late exam 6cm EFM 155 +qa no decels +mod variability [place]: q4 minutes A: Early Term SROM, Cat 1 tracing, Afebrile P: Continue to monitor closely Modified by and Electronically Signed by: BRIDGET HARRINGTON MD On: 12/27/2013 10:43 AM Addendum by CARLEE MADRID MD on 27 Dec 2013 6:36 CDT SUBJECTIVE not feeling UCs - epidural in place No SOTOMAYOR, visual changes, abd pain OBJECTIVE BLOOD PRESSURE 118/65, P-102 Has had 3-4 BPs in the 141-146/75-82 range Tc-37.3 orally Pitocin at 9 mU EFM - 150 baseline, moderate variability, no decels, + accelerations - catagory 1 tracing [place] - contractions every 2-5 minutes Cervix -6/80%/0 per RN at 0600 (was 4-5cm at 0230) ASSESSMENT/PLAN G1 at 37w5d in active labor, adequate progression, on Pitocin ROM now 17 hrs, slight rise in baseline from 140-150 but afebrile and no other S/S chorio GBS + . Patient on PCN GHTN-mild range BPs, normal labs, MgSO4 for severe range BPs or symptoms -cont pit, expect management Modified by and Electronically Signed by: CARLEE MADRID MD On: 12/27/2013 06:36 AM Addendum by CARLEE MADRID MD on 26 Dec 2013 19:59 CDT SUBJECTIVE She is feeling UCs stronger now but not regular OBJECTIVE BLOOD PRESSURE Systolic Blood Pressure: 129 mmHg Diastolic Blood Pressure: 79 mmHg EFM - 135-140 baseline, moderate variability, no decels, + accelerations - catagory 1 tracing [place] - contractions every 2-6 minutes Cervix -deferred LABS WBC: 12.4 x10(9)/L (12/26/13) RBC: 4.09 x10(12)/L (12/26/13) Hgb: 12.8 g/dL (12/26/13) Hct: 37.1 % (12/26/13) Platelet: 256 x10(9)/L (12/26/13) Glucose Lvl: 87 mg/dL (12/26/13) Creatinine: 0.59 mg/dL (12/26/13) Calcium Lvl: 9.2 mg/dL (12/26/13) BUN: 7 mg/dL (12/26/13) AST: 18 U/L (12/26/13) ALT: 13 U/L (12/26/13) TP/Cr - 0.012 ASSESSMENT/PLAN 1. SROM, latent labor- contractions stronger but not regular -will augment with pitocin 2. GBS-getting second bag PCN 3. HTN-only one BP > 140/90, labs normal, no Sxs 4. FWB-reassuring Modified by and Electronically Signed by: CARLEE MADRID MD On: 12/26/2013 07:59 PM OB ADMISSION HISTORY AND PHYSICAL CHIEF COMPLAINT ROM, contractions HISTORY OF PRESENT ILLNESS This is a at 37+4 weeks GA here by 8 week US (2 weeks descrepent from LMP) with ROM around 0900this am. She felt some fluid come out and it was pink tinged, minimal fluid since then. She had a spec exam in clinic + pooling and amnisure positive. Baby is moving well, no active bleeding, contractions are mild every few minutes. PROBLEM LIST Supervision of Normal First Asthma NOS (493.90)-uses advair BID plus rescue inhaler--rarely uses this OB LABS labs: A+, HBsAg-neg, Rubella Immune, Syphilis-neg, HIV-neg, HCV-neg, GCT 91, TSH normal. Received flu shot first TM and TDAP 10/2013 GC/CHl negative GBS + MEDICATIONS albuterol: See Instructions,PRN ( Shortness of breath / Wheezing),1-2 puffs Inhalation q4-6hr as needed for asthma albuterol-ipratropium: 1 each,NEB,4xDay,PRN (Shortness of Breath) fluticasone nasal: 2 spray(s),Nasal,2xDay fluticasone-salmeterol: 1 puff(s),Inhalation,2xDay multivitamin, : See Instructions,1 tab daily ALLERGIES Suprax (Unknown reaction as a child) SYSTEMS REVIEW GENERAL: No fever, sweats, chills EENT: no URI symptoms, visual complaints PULMONARY: no shortness of breath, cough, wheezing CARDIAC: no chest pain/tightness, heart palpitations, ONTIVEROS GI: no epigastric or RUQ pain, no heartburn, nausea, vomiting, constipation/diarrhea : no pain with urination, urgency or frequency MUSCULOSKELETAL: no joint pain, has no sig swelling-had swelling before but this is better SKIN: no skin rashes NEURO: no significant headaches, weakness, numbness, visual changes ENDOCRINE: no excessive thirst, no excessive bruising PAST MED/SURG HISTORY HC REMOVE TONSILS/ADENOIDS,<12 Y/O - 06/28/00: 06/28/00 Tonsillectomy, primary or secondary; younger than age 12: 01/28/00 DENTAL SURGERY - wisdom teeth: 08/15/99 SOCIAL HISTORY Denies use of tobacco, EtOH or street drugs FAMILY HISTORY Grandmother (paternal): CA - Breast cancer; Diabetes mellitus Grandfather (paternal): Diabetes mellitus PHYSICAL EXAM 133/71. Had a higher one 150/90 range with NST Afebrile MEASUREMENTS Height: 170 cm General no apparent distress HEENT normocephalic, no lympadenopathy, no thyromegaly PULM lungs clear to ausculation, no wheeze or crackles, good air movement throughout CV RRR with 2/6 BRITTANY at LSB ABD soft, gravid, non tender EFW 7-7.5 pounds Vertex Cervix (per Dr. Harrington in clinic today) 0 cm/0%/high EXTREMITIES -trace edema NEURO-reflexes 1+, no clonus EFM 135 baseline with moderate variability, +accelerations, no decelerations- category 1 tracing TOCO contractions every 3-5 minutes IMPRESSION/REPORT/PLAN 1. G1 at 37w4d with SROM (+pooling, +amnisure) in prodromal labor. -expectant managment 2. GBS + Will start PCN. Patient advised of 15% cross reactivity with suprax (unknown reaction). Discussed GBS with her, all questions answered. 3. Elevated BP. Had one mild range elevated BP when doing the NST prior to finding out she had ROM. BP normal now. Denies symptoms of PEC -check CMP, TP/Cr, CBC -discussed PEC symptoms, possible treatment with MgSO4 if severe range BPs, abn labs or symptoms occur. 4. Asthma-well controlled with advair and rare use of rescue inhaler. Electronically Signed By: CARLEE MADRID MD On: 12/26/2013 04:18 PM Source: [facility] [employer] Document Id: [id number] Lulu Richardson, R.N. - 12/26/2013 4:04 PM CDT OB Admission History/Assessment Document Has Been Updated OB Admission History/Assessment Entered On: 12/26/2013 16:19 CDT Performed On: 12/26/2013 16:04 CDT by LULU RICHARDSON RN General Info Preferred Name : Dhiraj Admitted From : Non-Health Care Facility Point of Origin Mode of Arrival : Ambulatory Accompanied By : Alone Information Given By : Patient Preferred Communication Mode : Verbal Languages : Maltese Last Food Intake Date & Time : 12/26/2013 12:15 CDT Last Fluid Intake : 12/26/2013 12:15 CDT Care : Yes Records Available : Yes Are you ? : Yes LULU RICHARDSON RN - 12/26/2013 16:04 CDT Valuables/Belongings Valuables/Belongings Grid Valuables at Bedside Clothes, Patient Valuables : Pants, Shirt, Shoes, Undergarments Electronic Devices : Cell phone LULU RICHARDSON RN - 12/26/2013 16:04 CDT Room Orientation/Facility Policy Reviewed : Yes Home Medication Disposition : None brought in with patient LULU RICHARDSON RN - 12/26/2013 16:04 CDT Allergy (As Of: 12/26/2013 16:19:40 CDT) Allergies (Active) Suprax Estimated Onset Date: <not entered> 06/01/2013 ; Reactions: Unknown ; Comments: Comment1: Unknown reaction as a child ; Created By: CARLEE MADRID MD; Reaction Status: Active ; Category: Drug ; Substance: Suprax ; Type: Allergy ; Updated By: CARLEE MADRID MD; Source: Paper Chart/Abstracting ; Reviewed Date: 12/26/2013 15:35 CDT Problem List/Diagnoses (As Of: 12/26/2013 16:19:40 CDT) Problems(Active) Asthma NOS (493.90) (ICD-9-CM :493.90 ) Name of Problem: Asthma NOS (493.90) ; Recorder: ENEIDA ENCISO NP; Confirmation: Confirmed ; Classification: Medical ; Code: 493.90 ; Last Updated: 02/15/2012 9:50 CDT ; Life Cycle Date: 02/15/2012 ; Life Cycle Status: Active ; Vocabulary: ICD-9-CM ; Comments: 05/01/2012 16:07 - EMBER PERLA LPN unknown date of dx 12/26/2013 16:01 - CARLEE MADRID MD Exercise induced (SNOMED CT :579214472 ) Name of Problem: ; Onset Date: 06/06/2013 ; Recorder: JOY JOHNSON LPN; Confirmation: Confirmed ; Classification: Medical ; Code: 053821216 ; Last Updated: 11/20/2013 8:42 CDT ; Life Cycle Status: Active ; Responsible Provider: BRIDGET HARRINGTON MD; Vocabulary: SNOMED CT Supervision of Normal First (ICD-9-CM :V22.0 ) Name of Problem: Supervision of Normal First ; Onset Date: 06/06/2013 ; Confirmation: Confirmed ; Classification: Medical ; Code: V22.0 ; Contributor System: [facility]_HX_PR_UPLOAD ; Last Updated: 11/10/2013 14:41 CDT ; Life Cycle Status: Ac tive ; Vocabulary: ICD-9-CM ; Comments: - Supervision of normal first 08/02/13 Urine culture: negative profile not seen on sono: f/u ordered Current Expected Date of Confinement : 01/12/2014 CDT LMP Date : N/A Total Pregnancies History : 1 Living Children History : 0 : 1 Para : 0 Mom's Group B Streptococcus Status : GBS positive Mom's Hepatitis B Status : HBSAG negative Mom's Rubella Status : Rubella immune Risk Factors, Antepartum Current Preg : None LULU RICHARDSON RN - 12/26/2013 16:04 CDT Plan/Requests Education : Yes Written Plan : Yes Written Plan Location : At home Anesthesia/Pain Medication During Labor : IV narcotic, Offer medications only if patient asks, Other: would like to try IV fentanyl before epidural Delivery 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 : 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 Associate 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 not 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 cord Feeding : Breastfeed shortly after LULU RICHARDSON RN - 12/26/2013 16:04 CDT Past History History (As Of: 12/26/2013 16:19:40 CDT) No history documented Weight History Height : 170 cm(Converted to: 5 ft 7 inch(es)) Actual Weight : 95 kg(Converted to: 209 lb 7 oz) Weight Source : Standing scale Weight Gain Amount : 45 kg LULU RICHARDSON RN - 12/26/2013 16:04 CDT ID Screen Drug Resistant Organism : No LULU RICHARDSON RN - 12/26/2013 16:04 CDT Syndrome Surveillance Symptoms Grid Headache : No Illness With Generalized Rash : No Muscle Pain : No New or Worsening Cough : No Shortness of Breath : No Recent Exposure to Communicable Disease : No LULU RICHARDSON RN - 12/26/2013 16:04 CDT Travel Within Last 14 Days : No LULU RICHARDSON RN - 12/26/2013 16:04 CDT Nutrition Nutrition Risk Factors by History Adult : None Home Diet : Regular Feeding Ability : Complete independence Eating Difficulties : None Appetite : Excellent LULU RICHARDSON RN - 12/26/2013 16:04 CDT Home Environment Current Daily Living Assistance : None Living Situation : Other: with parents Home Equipment : None Sensory Deficits : None Mobility Assistance Prior to Admission : Independent Current Home Treatments : None Professional Skilled Services : None Special Services and Community Resources : None LULU RICHARDSON RN - 12/26/2013 16:04 CDT Dependent Habits Tobacco Use/Currently Using : No Tobacco Use/Last 12 months : No Exposure to Tobacco Smoke : Care provider denies smoking in home, Other: former smoker Smoking Status : Former smoker LULU RICHARDSON RN - 12/26/2013 16:04 CDT Tobacco Use Grid Last Use : never LULU RICHARDSON RN - 12/26/2013 16:04 CDT Alcohol Use : No LULU RICHARDSON RN - 12/26/2013 16:04 CDT Caffeine Use Grid Caffeine Use : Current Type : Soft drinks Frequency : Occasionally LULU RICHARDSON RN - 12/26/2013 16:04 CDT Recreational Drug Use Grid Drug Use : None LULU RICHARDSON RN - 12/26/2013 16:04 CDT Psychosocial Support Person's Name : Swapna Support Person/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 Associate Relationship to Pt : Mother Other Support People : Jason Father of Baby Involved? : Yes Pain Symptoms : No Domestic Abuse Concerns : None Concerns About Family Members at Home : No Emotional Support Available : Yes Chronic/Terminal Illness Freq Visits : No Financial Concerns Regarding Hospitalization/Discharge : No Behavioral Health Screen/Safety Assmt : Yes Coping : Effective Faith Preference : Unknown LULU RICHARDSON RN - 12/26/2013 16:04 CDT Advance Directive Advanced Directives : No LULU RICHARDSON RN - 12/26/2013 16:04 CDT Educ Needs Patient/Family Education Needs : Medications, Pain management, Plan of care LULU RICHARDSON RN - 12/26/2013 16:04 CDT Learning Style Preference Adult Grid Patient : Demonstration, Verbal explanation Family : None LULU RICHARDSON [facility] 12/26/2013 16:04 CDT General Level of Consciousness : Alert Orientation : Oriented x 3 Affect/Behavior : Calm Distress : None Skin Color : Normal for ethnicity Skin Description : Dry Skin Temperature : Warm LULU RICHARDSON [facility] 12/26/2013 16:04 CDT Cardiovascular Heart Rhythm : Regular Edema Assessment : No LULU RICHARDSON [facility] 12/26/2013 16:04 CDT Pulses Grid Radial Pulse, Left : 2+ Normal Radial Pulse, Right : 2+ Normal LULU RICHARDSON [facility] 12/26/2013 16:04 CDT Respiratory Respiratory Pattern : Regular All Lobes Breath Sounds : Clear Respirations : Unlabored Cough : None LULU RICHARDSON [facility] 12/26/2013 16:04 CDT Gastrointestinal Bowel Sounds All Quadrants : Present Abdomen Palpation : Soft Passing Flatus : Yes LULU RICHARDSON [facility] 12/26/2013 16:04 CDT Genitourinary Patient Stated Symptoms : None LULU RICHARDSON [facility] 12/26/2013 16:04 CDT Musculoskeletal Musculoskeletal Patient Stated Symptoms : None LULU RICHARDSON [facility] 12/26/2013 16:04 CDT Integumentary Integumentary Patient Stated Symptoms : None Skin Integrity : Intact Mucous Membrane Color : [place] Mucous Membrane Description : Moist Skin Color : Normal for ethnicity Skin Description : Dry Skin Temperature : Warm LULU RICHARDSON [facility] 12/26/2013 16:04 CDT Neurological Clonus : Not present Extremity Movement : Equal Gait : Steady LULU RICHARDSON [facility] 12/26/2013 16:04 CDT Left Knee Reflex Left Knee : 2+ Right Knee : 2+ LULU RICHARDSON [facility] 12/26/2013 16:04 CDT Peripheral IV Peripheral IV Assess/Intervention Grid Peripheral IV #1 IV Activity : Start LULU RICHARDSON - 12/26/2013 16:04 CDT Hendrich II Fall Risk Confusion/Disorientation Hendrich : No Depression Fall Risk Hendrich : No Altered Elimination Fall Risk Hendrich : No Dizziness/Vertigo Fall Risk Hendrich : No Gender, Male Fall Risk Hendrich : No Prescribed Antiepileptics Hendrich : No Prescribed Benzodiazepines Hendrich : No Rising From Chair Fall Risk Hendrich : Able to rise in a single movement, no loss of balance with steps Fall Risk Score Hendrich II : 0 LULU RICHARDSON RN - 12/26/2013 16:04 CDT Safe Patient Handling Safe Pt Handling Independent : Yes - No equipment needed Safe Pt Handling Equipment Rec : No Equipment Needed LULU RICHARDSON RN - 12/26/2013 16:04 CDT Krzysztof Sensory Perception Krzysztof : No impairment Moisture Krzysztof : Rarely moist Activity Krzysztof : Walks frequently Mobility Krzysztof : No limitations Nutrition Krzysztof : Excellent Friction and Shear Krzysztof : No apparent problem Krzysztof Score : 23 LULU RICHARDSON RN - 12/26/2013 16:04 CDT Source: [employer] Document Id: [id number] CDT!174 documented in this encounter Procedure Notes Chelsea Saucedo RChristy - 12/28/2013 8:15 PM CDT Peripheral IV Peripheral IV Entered On: 12/28/2013 22:29 CDT Performed On: 12/28/2013 20:15 CDT by CHELSEA SAUCEDO Peripheral IV Peripheral IV Assess/Intervention Grid Peripheral IV #1 IV Activity : Discontinue, Assessment IV Site : Hand Laterality : Left Catheter Size : 20 Catheter Type : Over the needle Site Condition : Other: Leaking around insertion site when flushed. Dressing/ Activity : Removed CHELSEA SAUCEDO - 12/28/2013 22:28 CDT [facility] Document Id: [id number] CDT!11 Bridget Harrington M.D. - 12/27/2013 5:21 PM CDT Delivery Note DELIVERY SUMMARY Stage I: Patient is a 18 yo at 37w4d weeks who was admitted for term prom. Membranes ruptured at 9am yesterday course complicated by teen and GBS positive. She had an epidural, GBS positive, no IV narcotics, 9 mu Pitocin. Cat 1-2 surveillance through first stage with episodic tachycardia with resolution and moderate variability. Stage II: Pushed for approximately 2 hours to deliver a 7#0oz at 16:59, Apgars 8,9. No difficulty with delivery of shoulders. Stage III: Placenta delivered intact at 17:03 via simple expression. Uterus firm low and hemostatic with Pitocin and massage. No perineal laceration on inspection. EBL 200. Mom and baby doing well. Status Post over intact perineum. Viable baby girl. Apgars assigned by Dr. Cano 8 and 9. TELMA position. Shoulders delivered easily. Pitocin and uterine massage for delivery of placenta intact with 3 vessel cord. Cord bloods obtained. Cord gases requested. No cervical, perineal or rectal lacerations. Bilateral labial lacerations first degree repaired with 3-0 Vicryl interrupted stitches.Sponges, needle counts correct. No sponges retained. Excellent hemostasis. CJP=215. Placenta to pathology for prolonged rupture and episodes of tachycardia. Electronically Signed By: BRIDGET HARRINGTON MD On: 12/27/2013 05:35 PM Modified by and Electronically Signed by: BRIDGET HARRINGTON MD On: 12/27/2013 05:35 PM Source: [facility] [employer] Document Id: [id number] Teresa Alicia, R.N. - 12/27/2013 4:41 AM CDT Urinary Catheter Insertion/Discontinuation Urinary Catheter Insertion/Discontinuation Entered On: 12/27/2013 4:42 CDT Performed On: 12/27/2013 4:41 CDT by TERESA ALICIA RN Urinary Catheter Urinary Catheter Activity Type : Insert Urinary Catheter Insertion Site : Urethral Urinary Catheter Size : 16 [place] Urinary Catheter Type : Indwelling/Continuous Date/Time Catheter Insertion : 12/27/2013 3:45 CDT Urinary Catheter Balloon Inflation : 10 mL sterile water Urinary Catheter Secured : Tape Urinary Catheter Drainage System : Dependent drainage bag Urinary Catheter Procedure Response : Expected Urinary Catheter Procedure Tolerance : Good TERESA ALICIA RN - 12/27/2013 4:41 CDT Source: [facility] [employer] Document Id: [id number] CDT!12 Teresa Alicia R.N. - 12/27/2013 3:00 AM CDT Intraspinal Catheter/Epidural Care Intraspinal Catheter/Epidural Care Entered On: 12/27/2013 3:16 CDT Performed On: 12/27/2013 3:00 CDT by TERESA ALICIA RN Vital Signs Height : 170 cm(Converted to: 5 ft 7 inch(es)) TERESA ALICIA RN - 12/27/2013 3:16 CDT Site Assessment Intraspinal Site Condition : No complications Dressing Condition : Dry, Intact Intraspinal Flow/Patency : No complications Intraspinal Flow Control Device : HOUSING INSPECTOR TERESA ALICIA RN - 12/27/2013 3:16 CDT Source: [employer] Document Id: [id number] CDT!8 Lulu Richardson R.N. - 12/26/2013 4:33 PM CDT Peripheral IV Peripheral IV Entered On: 12/26/2013 16:34 CDT Performed On: 12/26/2013 16:33 CDT by LULU RICHARDSON RN Peripheral IV Peripheral IV Assess/Intervention Grid Peripheral IV #1 IV Activity : Start Number of Attempts : 1 Date of Insertion : 12/26/2013 CDT IV Site : Hand Laterality : Left Catheter Size : 20 Catheter Type : Over the needle Site Condition : No complications Drainage Description : None Infiltration Score : 0 Phlebitis Score : 0 LULU RICHARDSON RN - 12/26/2013 16:33 CDT Source: [employer] Document Id: [id number] CDT!15 documented in this encounter Nursing Notes Matt Sterling R.N., I.B.C.L.CGonzalo - 12/29/2013 1:30 PM CDT Assessment Assessment Entered On: 12/29/2013 14:33 CDT Performed On: 12/29/2013 13:30 CDT by MATT STERLING generation engineer Assessment Indication : Ongoing Assessment Referral : discretion [employer] General Manager Needed : No Visit Summary : Senior It Recruiter visit on day of discharge. Mom is independent in latch on when using cross cradle hold, breasts are starting to change, nipples are intact, using warm soak, hydrogel and breastmilk. Hand Medela pump sent with her, cold therapy sent as well. Problems Identified - : Late , Weight loss Problems Identified - Mother : Feeding plan management, First time mom, First experience Length of Visit : 45 Minutes MATT STERLING RN - 12/29/2013 14:29 CDT Latch LATCH : 2 Audible Swallowing LATCH : 2 Type of Nipple LATCH : 2 Comfort LATCH : 1 Hold LATCH : 2 LATCH Score : 9 MATT STERLING RN - 12/29/2013 14:29 CDT Mother Information Breast Assessment : Filling Nipple Assessment : Bilateral, Erect Nipple Condition : Bilateral, Intact, Tender Areola Assessment : Compressible Milk Ejection Reflex : Appropriate Milk Supply : Colostrum MATT STERLING RN - 12/29/2013 14:29 CDT Education General Patient Education Powergrid : Availability of , Breast Massage/Compression, Breast pump set up/use/cleaning, Colostrum, Engorgement management, prevention, Engorgement management, treatment, Expressed milk,appropriate use, Expressed milk, handling/storage, Feeding, cues, Feeding, frequency/pattern, Hand ex pression, Jaundice, Latch On, achieving, Latch on, signs of adequate, Late , Milk Supply - Establishing, Nipple management, hydrogels, Nipple management, prevention, Nipple management, treatment, Position, cross cradle, Role of support person, Skin to Skin, Swallowing pattern (Comment: Instructed mom in use of hand Medela pump, is hand expressing, useing warm water to soak and wearing hydrogels between feeds, nipples are intact and latch is more comfortable. Baby is swallowing more. Bruise on caput is gone. Stools are green. Reviewed feeding log that was caught up and sent with mom per her request, as to expectations for feedings and output. [MATT STERLING RN - 12/29/2013 14:29 CDT] ) Individuals Taught : Patient, Family member Barriers to Learning : None evident Teaching Method : Demonstration, Explanation, Printed materials (Comment: Feeding log caught up and sent with patient, LLL brochure sent, phone card with followup numbers, Discharge class drop in brochure given. [MATT STERLING RN - 12/29/2013 14:29 CDT] ) Teaching Evaluation : Returns demonstrations correctly, Verbalizes understanding MATT STERLING RN - 12/29/2013 14:29 CDT Source: [facility] [employer] Document Id: [id number] CDT!31 Chelsea Saucedo R.N. - 12/29/2013 2:00 AM CDT Post Assessment * Post Assessment * Entered On: 12/29/2013 3:42 CDT Performed On: 12/29/2013 2:00 CDT by CHELSEA SAUCEDO Post Assessment * Breast Condition : Soft Nipples : Tender Nipple tenderness location : Bilateral Breast Secretions : Colostrum Breast Management : Hydrogels Infant Feeding Method : Sucking : Latches well with sucking Fundus : U-1 Fundus condition : Firm Fundus position : Midline Post Lochia : Lochia Rubra Excessive Lochia : Small CHELSEA SAUCEDO - 12/29/2013 3:38 CDT Extremities Clonus : Not present CHELSEA SAUCEDO - 12/29/2013 3:38 CDT Respiratory Respiratory Patient Stated Symptoms : None Respirations : Unlabored Respiratory Pattern : Regular All Lobes Breath Sounds : Clear Cough : None CHELSEA SAUCEDO - 12/29/2013 3:38 CDT Cardiovascular CV Patient Stated Symptoms : None Heart Rhythm : Regular Nail Bed Color : [place] Capillary Refill : Less than 2 seconds Edema Assessment : No Skin Color : Normal for ethnicity Skin Description : Normal Skin Temperature : Warm Activity Tolerance : Without distress CHELSEA SAUCEDO - 12/29/2013 3:38 CDT Neurological Neuro Patient Stated Symptoms : None Level of Consciousness : Alert Gait : Steady Swallowing Difficulty/Aspiration Risk : None CHELSEA SAUCEDO 12/29/2013 3:38 CDT [place] Coma Eye Opening Response [place] : Spontaneously Best Verbal Response [place] : Oriented Best Motor Response [place] : Obeys simple commands [place] Coma Score : 15 CHELSEA SAUCEDO 12/29/2013 3:38 CDT Psycho/Emotional Affect/Behavior : Calm Pain Symptoms : No CHELSEA SAUCEDO 12/29/2013 3:38 CDT Gastrointestinal GI Patient Stated Symptoms : None Abdomen Description : Symmetric Abdomen Palpation : Soft Bowel Sounds All Quadrants : Present Passing Flatus : Yes CHELSEA SAUCEDO 12/29/2013 3:38 CDT Nutrition Eating Difficulties : None CHELSEA SAUCEDO 12/29/2013 3:38 CDT Genitourinary Patient Stated Symptoms : None CHELSEA SAUCEDO 12/29/2013 3:38 CDT Integumentary Integumentary Patient Stated Symptoms : None Skin Integrity : Intact Skin Color : Normal for ethnicity Skin Description : Normal Skin Temperature : Warm CHELSEA SAUCEDO 12/29/2013 3:38 CDT Krzysztof Sensory Perception Krzysztof : No impairment Moisture Krzysztof : Rarely moist Activity Krzysztof : Walks occasionally Mobility Krzysztof : Slightly limited Nutrition Krzysztof : Adequate Friction and Shear Kryzsztof : No apparent problem Krzysztof Score : 20 CHELSEA SAUCEDO 12/29/2013 3:38 CDT Musculoskeletal Musculoskeletal Patient Stated Symptoms : None Activity Tolerance : Without distress CHELSEA SAUCEDO 12/29/2013 3:38 CDT Hendrich II Fall Risk Confusion/Disorientation Hendrich : No Depression Fall Risk Hendrich : No Altered Elimination Fall Risk Hendrich : No Dizziness/Vertigo Fall Risk Hendrich : No Gender, Male Fall Risk Hendrich : No Prescribed Antiepileptics Hendrich : No Prescribed Benzodiazepines Hendrich : No Rising From Chair Fall Risk Hendrich : Able to rise in a single movement, no loss of balance with steps Fall Risk Score Hendrich II : 0 CHELSEA SAUCEDO 12/29/2013 3:38 CDT Education Antepartum Education Grid Education Topics : Bowel movements/wet diapers, Medication dosage, route, scheduling, Nipple management, Plan of care, Sore nipples Individuals Taught : Patient Barriers to Learning : None evident Teaching Method : Explanation Teaching Evaluation : Verbalizes understanding CHELSEA SAUCEDO 12/29/2013 3:38 CDT Source: [facility] [employer] Document Id: [id number] CDT!90 Matt Sterling R.N., I.BGonzaloCGonzaloLGonzaloC. - 12/28/2013 2:30 PM CDT Assessment Assessment Entered On: 12/28/2013 15:58 CDT Performed On: 12/28/2013 14:30 CDT by MATT STERLING RN Assessment Assessment Indication : Consult Referral : discretion Funeral Home General Manager Needed : No Visit Summary : Senior It Recruiter visit to review skin care management with colostrum and hydrogels, Give Rx to grandmother for electric pump. L1 at 37 4/7 weeks gestation, apgars 8 and 9, A+,GBS +, SPROM and Pitocin augmentation of labor. 149 minute second stage, , laceration only. Problems Identified - [place] : Late Problems Identified - Mother : Feeding plan management, First time mom, First experience Length of Visit : 30 Minutes MATT STERLING RN - 12/28/2013 15:51 CDT Latch LATCH : 2 Audible Swallowing LATCH : 2 Type of Nipple LATCH : 2 Comfort LATCH : 2 Hold LATCH : 1 LATCH Score : 9 MATT STERLING RN - 12/28/2013 15:51 CDT Mother Information Breast Assessment : Appropriate Nipple Assessment : Bilateral, Erect Nipple Condition : Left, Tender Areola Assessment : Compressible Milk Ejection Reflex : Appropriate Milk Supply : Colostrum MATT STERLING RN - 12/28/2013 15:51 CDT Nutrition /Formula Breast Location : Left Length of Time : 10 minute(s) Feeding Comment : Mom hand expressed and assisted baby in cross cradle hold to latch on the left breast, much more comfortable. Hydrogels on after nursing. Mom expressing colostrum effectively Feeding Tolerance : Adequate suck/swallow coordination MATT STERLING RN - 12/28/2013 15:51 CDT Education General Patient Education Powergrid : Availability of , Breast Massage/Compression, Breast pump set up/use/cleaning, Colostrum, Elimination pattern, Expressed milk, appropriate use, Expressed milk, handling/storage, Feeding, cues, Feeding, frequency/pattern, Hand expression, Jaundice, Latch On, achieving, Latch on, signs of adequate, Late Infant, Milk Supply - Establishing, behavior, , sleep states, Nipple management, hydrogels, Position, cross cradle, Swallowing pattern, Swallowing sound (Comment: Introduced legal consultant role, demonstrated hand expression, assisted with mom obtaining colostrum from both breasts and spoon feeidng baby. Reviewed baby behavior, labor and bruise on caput from pushing. Discussed insurance and availability of pump, grandma will call insurance and seeabout getting electric pump. Rx obtained and given to grandmother. Discussed jaundice with mom and grandma, neede to monitor bilirubin levels and resolution over the first week due to gestational age and early term status. [MATT STERLING RN - 12/28/2013 15:51 CDT] ) Individuals Taught : Patient, Family member Barriers to Learning : None evident Teaching Method : Demonstration, Explanation, Printed materials (Comment: Rx for electric pump and second night sheet. [MATT STERLING RN - 12/28/2013 15:51 CDT] ) Teaching Evaluation : Returns demonstrations correctly, Verbalizes understanding MATT STERLING RN - 12/28/2013 15:51 CDT Source: [facility] [employer] Document Id: [id number] CDT!36 Lexii Parkinson R.N. - 12/28/2013 9:30 AM CDT Post Assessment * Post Assessment * Entered On: 12/28/2013 10:37 CDT Performed On: 12/28/2013 9:30 CDT by LEXII REEVES RN Post Partum Assessment * Breast Condition : Tender Breast Management : Hydrogels, Expressed breast milk Feeding Method : Infant Sucking : Latches well with sucking Fundus : Even Fundus condition : Firm Fundus position : Midline Post Lochia : Lochia Serosa Perineal Interventions : Witch prosper pads LEXII REEVES RN - 12/29/2013 7:44 CDT Respiratory Respiratory Patient Stated Symptoms : None Respirations : Unlabored Respiratory Pattern : Regular All Lobes Breath Sounds : Clear Cough : None LEXII REEVES RN - 12/29/2013 7:44 CDT Cardiovascular CV Patient Stated Symptoms : None Heart Rhythm : Regular Nail Bed Color : [place] Capillary Refill : Less than 2 seconds Skin Color : Normal for ethnicity Skin Description : Normal Skin Temperature : Warm Activity Tolerance : Without distress LEXII REEVES RN - 12/29/2013 7:44 CDT Neurological Neuro Patient Stated Symptoms : None Orientation : Oriented x 3 Level of Consciousness : Alert MATTLEXII [place] RN - 12/29/2013 7:44 CDT Mariangel Coma Eye Opening Response Mariangel : Spontaneously Best Verbal Response Mariangel : Oriented Best Motor Response Mariangel : Obeys simple commands Mariangel Coma Score : 15 LEXII REEVES RN - 12/29/2013 7:44 CDT Psycho/Emotional Affect/Behavior : Calm Pain Symptoms : No LEXII REEVES RN - 12/29/2013 7:44 CDT Gastrointestinal GI Patient Stated Symptoms : None Bowel Sounds All Quadrants : Present LEXII REEVES RN - 12/29/2013 7:44 CDT Nutrition Eating Difficulties : None Appetite : Excellent LEXII REEVES RN - 12/29/2013 7:44 CDT Genitourinary Patient Stated Symptoms : None LEXII REEVES RN - 12/29/2013 7:44 CDT Krzysztof Sensory Perception Krzysztof : No impairment Moisture Krzysztof : Rarely moist Activity Krzysztof : Walks frequently Mobility Krzysztof : No limitations Nutrition Krzysztof : Excellent Friction and Shear Krzysztof : No apparent problem Krzysztof Score : 23 LEXII REEVES RN - 12/29/2013 7:44 CDT Peripheral IV Peripheral IV Assess/Intervention Grid Peripheral IV #1 IV Activity : Discontinue IV Site : Hand Laterality : Left Catheter Size : 20 Catheter Type : Over the needle LEXII REEVES RN - 12/28/2013 10:36 CDT Hendrich II Fall Risk Confusion/Disorientation [place] : No Depression Fall Risk Hendrich : No Altered Elimination Fall Risk Hendrich : No Dizziness/Vertigo Fall Risk Hendrich : No Gender, Male Fall Risk Hendrich : No Prescribed Antiepileptics Hendrich : No Prescribed Benzodiazepines Hendrich : No Rising From Chair Fall Risk Hendrich : Able to rise in a single movement, no loss of balance with steps Fall Risk Score Hendrich II : 0 LEXII REEVES RN - 12/29/2013 7:44 CDT Source: [facility] [employer] Document Id: [id number] CDT!64 Lexii Parkinson RChristy - 12/28/2013 8:20 AM CDT Post Assessment * Post Assessment * Entered On: 12/28/2013 8:33 CDT Performed On: 12/28/2013 8:20 CDT by LEXII REEVES RN Post Partum Assessment * Breast Condition : Soft Feeding Method : LEXII REEVES RN - 12/28/2013 8:20 CDT Respiratory Respiratory Patient Stated Symptoms : None Respirations : Unlabored Respiratory Pattern : Regular All Lobes Breath Sounds : Clear Cough : None LEXII REEVES RN - 12/28/2013 8:20 CDT Cardiovascular CV Patient Stated Symptoms : None Heart Rhythm : Regular Nail Bed Color : [place] LEXII REEVES RN - 12/28/2013 8:20 CDT Neurological Neuro Patient Stated Symptoms : None Orientation : Oriented x 3 Level of Consciousness : Alert LEXII REEVES RN - 12/28/2013 8:20 CDT [place] Coma Eye Opening Response [place] : Spontaneously Best Verbal Response [place] : Oriented Best Motor Response [place] : Obeys simple commands Mariangel Coma Score : 15 LEXII REEVES RN - 12/28/2013 8:20 CDT Psycho/Emotional Pain Symptoms : No LEXII REEVES RN - 12/28/2013 8:20 CDT Gastrointestinal GI Patient Stated Symptoms : None LEXII REEVES RN - 12/28/2013 8:20 CDT Genitourinary Patient Stated Symptoms : None LEXII REEVES RN - 12/28/2013 8:20 CDT Integumentary Integumentary Patient Stated Symptoms : None Skin Turgor : Elastic Skin Integrity : Intact LEXII REEVES RN - 12/28/2013 8:20 CDT Krzysztof Sensory Perception Krzysztof : No impairment Moisture Krzysztof : Rarely moist Activity Krzysztof : Walks frequently Mobility Krzysztof : No limitations Nutrition Krzysztof : Excellent Friction and Shear Krzysztof : No apparent problem Krzysztof Score : 23 MATTJulius LEXII RN - 12/28/2013 8:20 CDT Musculoskeletal Musculoskeletal Patient Stated Symptoms : None Activity Tolerance : Without distress Musculoskeletal Note : DTR's normal, Clonus +1 MATTJulius LEXII RN - 12/28/2013 8:20 CDT Peripheral IV Peripheral IV Assess/Intervention Grid Peripheral IV #1 IV Activity : Assessment IV Site : Hand Laterality : Left Catheter Size : 20 Catheter Type : Over the needle LEXII REEVES RN - 12/28/2013 8:20 CDT Source: [employer] Document Id: [id number] CDT!53 Teresa Alicia R.NGonzalo - 12/28/2013 6:41 AM CDT Post Assessment * Post Assessment * Entered On: 12/28/2013 6:41 CDT Performed On: 12/28/2013 6:41 CDT by TERESA ALICIA RN Extremities Clonus : Not present TERESA ALICIA RN - 12/28/2013 6:41 CDT Lower Extremities Reflex Grid Right Knee : 1+ Left Ankle : 1+ TERESA ALICIA RN - 12/28/2013 6:41 CDT Respiratory Respiratory Patient Stated Symptoms : None Respirations : Unlabored All Lobes Breath Sounds : Clear Cough : None Sputum Amount : None Suction : None Airway : Patent TERESA ALICIA RN - 12/28/2013 6:41 CDT Psycho/Emotional Pain Symptoms : No TERESA ALICIA RN - 12/28/2013 6:41 CDT Source: [employer] Document Id: [id number] CDT!16 Teresa Alicia R.NGonzalo - 12/28/2013 5:46 AM CDT Post Assessment * Post Assessment * Entered On: 12/28/2013 5:46 CDT Performed On: 12/28/2013 5:46 CDT by TERESA ALICIA RN Extremities Extremities : Edema Clonus : Not present TERESA ALICIA RN - 12/28/2013 5:46 CDT Lower Extremities Reflex Grid Left Knee : 1+ Right Knee : 1+ TERESA ALICIA RN - 12/28/2013 5:46 CDT Respiratory Respiratory Patient Stated Symptoms : None Respirations : Unlabored Respiratory Pattern : Regular All Lobes Breath Sounds : Clear Cough : None Sputum Amount : None Airway : Patent TERESA ALICIA RN - 12/28/2013 5:46 CDT Psycho/Emotional Pain Symptoms : No TERESA ALICIA RN - 12/28/2013 5:46 CDT Source: [employer] Document Id: [id number] CDT!17 Teresa Alicia RGonzaloNGonzalo - 12/28/2013 3:39 AM CDT Post Assessment * Post Assessment * Entered On: 12/28/2013 3:39 CDT Performed On: 12/28/2013 3:39 CDT by TERESA ALICIA RN Respiratory Respiratory Patient Stated Symptoms : None Respirations : Unlabored Respiratory Pattern : Regular All Lobes Breath Sounds : Clear Cough : None Sputum Amount : None Airway : Patent TERESA ALICIA RN - 12/28/2013 3:39 CDT Psycho/Emotional Pain Symptoms : No TERESA ALICIA RN - 12/28/2013 3:39 CDT Source: [employer] Document Id: [id number] CDT!11 Teresa Alicia RGonzaloNGonzalo - 12/28/2013 2:31 AM CDT Post Assessment * Post Assessment * Entered On: 12/28/2013 2:32 CDT Performed On: 12/28/2013 2:31 CDT by TERESA ALICIA RN Extremities Extremities : Edema TERESA ALICIA RN - 12/28/2013 2:31 CDT Respiratory Respiratory Patient Stated Symptoms : None Respirations : Unlabored Respiratory Pattern : Regular All Lobes Breath Sounds : Clear Cough : None Sputum Amount : None Suction : None Airway : Patent TERESA ALICIA RN - 12/28/2013 2:31 CDT Psycho/Emotional Pain Symptoms : No TERESA ALICIA RN - 12/28/2013 3:39 CDT Source: [employer] Document Id: [id number] CDT!3 Teresa Alicia R.N. - 12/28/2013 1:30 AM CDT Post Assessment * Post Assessment * Entered On: 12/28/2013 1:30 CDT Performed On: 12/28/2013 1:30 CDT by TERESA ALICIA RN Extremities Clonus : Not present TERESA ALICIA RN - 12/28/2013 1:30 CDT Lower Extremities Reflex Grid Left Knee : 1+ Right Knee : 1+ TERESA ALICIA RN - 12/28/2013 1:30 CDT Respiratory Respiratory Patient Stated Symptoms : None Respirations : Unlabored Respiratory Pattern : Regular All Lobes Breath Sounds : Clear Suction : None Airway : Patent TERESA ALICIA RN - 12/28/2013 1:30 CDT Psycho/Emotional Pain Symptoms : No TERESA ALICIA RN - 12/28/2013 1:30 CDT Source: [employer] Document Id: [id number] CDT!15 Teresa Alicia RChristy - 12/28/2013 1:24 AM CDT md angelina Harrington was notified about pt elevated blood pressures and abnormal lab results. Pt denies headache, blurry vision, or right upper quadrant pain. Orders recieved and MD to come and evaluatept at bedside. Electronically Signed By: TERESA ALICIA RN On: 12/28/2013 01:25 AM Source: [employer] Document Id: [id number] Teresa Alicia R.N. - 12/28/2013 12:32 AM CDT Post Assessment * Post Assessment * Entered On: 12/28/2013 0:33 CDT Performed On: 12/28/2013 0:32 CDT by TERESA ALICIA RN Extremities Extremities : Edema Clonus : Not present TERESA ALICIA RN - 12/28/2013 0:32 CDT Lower Extremities Reflex Grid Right Knee : 1+ Left Ankle : 1+ TERESA ALICIA RN - 12/28/2013 0:32 CDT Respiratory Respiratory Patient Stated Symptoms : None Respirations : Unlabored Respiratory Pattern : Regular All Lobes Breath Sounds : Clear Cough : None Suction : None Airway : Patent TERESA ALICIA RN - 12/28/2013 0:34 CDT Psycho/Emotional Pain Symptoms : No TERESA ALICIA RN - 12/28/2013 0:34 CDT Source: [employer] Document Id: [id number] CDT!11 Teresa Alicia R.N. - 12/28/2013 12:18 AM CDT PRN Response PRN Response Entered On: 12/28/2013 0:18 CDT Performed On: 12/28/2013 0:18 CDT by TERESA ALICIA RN PRN Medication Effectiveness Evaluation PRN Medication Effective : Yes TERESA ALICIA RN - 12/28/2013 0:18 CDT Source: [employer] Document Id: [id number] CDT!3 Teresa Alicia R.N. - 12/27/2013 11:30 PM CDT Post Assessment * Post Assessment * Entered On: 12/27/2013 23:56 CDT Performed On: 12/27/2013 23:30 CDT by TERESA ALICIA RN Post Partum Assessment * Breast Condition : Soft Nipples : Normal Nipple tenderness location : Bilateral Breast Secretions : Colostrum Feeding Method : Sucking : Latches well with sucking Fundus : U-1 Fundus condition : Firm Fundus position : Midline Post Lochia : Lochia Rubra Excessive Lochia : None Tear Assessment : Edges approximated Perineal Interventions : Witch prosper pads, Ice pack TERESA ALICIA RN - 12/27/2013 23:45 CDT Extremities Extremities : Edema Clonus : Not present TERESA ALICIA RN - 12/27/2013 23:45 CDT Edema Detailed Grid Ankle Edema Pedal Edema Bilateral : 1+ trace/2mm 1+ trace/2mm TERESA ALICIA RN - 12/27/2013 23:45 CDT TERESA ALICIA RN - 12/27/2013 23:45 CDT Lower Extremities Reflex Grid Left Knee : 1+ Right Knee : 1+ TERESA ALICIA RN - 12/27/2013 23:45 CDT Respiratory Respiratory Patient Stated Symptoms : None Respirations : Unlabored Respiratory Pattern : Regular All Lobes Breath Sounds : Clear Cough and Deep Breathe : Done Cough : None Sputum Amount : None Suction : None Airway : Patent TERESA ALICIA RN - 12/27/2013 23:45 CDT Cardiovascular CV Patient Stated Symptoms : None Heart Rhythm : Regular Heart Sounds ICU : S1S2 Nail Bed Color : [place] Capillary Refill : Less than 2 seconds TERESA ALICIA RN - 12/27/2013 23:45 CDT Pulses Grid Radial Pulse, Left : 2+ Normal Radial Pulse, Right : 2+ Normal Dorsalis Pedis Pulse, Left : 2+ Normal Dorsalis Pedis Pulse, Right : 2+ Normal TERESA ALICIA Samuel ADAMS - 12/27/2013 23:45 CDT Skin Color : Normal for ethnicity Skin Description : Dry Skin Temperature : Warm Activity Tolerance : Minimal distress TERESA ALICIA ANGIE - 12/27/2013 23:45 CDT Neurological Neuro Patient Stated Symptoms : None Orientation : Oriented x 3 Swallowing Difficulty/Aspiration Risk : None TERESA ALICIA Samuel ADAMS - 12/27/2013 23:45 CDT [place] Coma Eye Opening Response Mariangel : Spontaneously Best Verbal Response [place] : Oriented Best Motor Response Mariangel : Obeys simple commands [place] Coma Score : 15 TERESA ALICIA Samuel ADAMS - 12/27/2013 23:45 CDT Psycho/Emotional Affect/Behavior : Calm Pain Symptoms : No Feels Rested : Yes TERESA ALICIA Samuel ADAMS - 12/27/2013 23:45 CDT Coping Grid Identifies effective strategies : Yes Uses effective strategies : Yes Reports increase in psychological comfort : Yes Indicates sense of control : Yes Stressors perceived within control : Yes Stable mood with appropriate affect : Yes Behaviors indicate use of coping mechanism : Yes Family supportive and involved in care : Yes Values/Beliefs incorporated appropriately : Yes TERESA ALICIA Samuel ADAMS - 12/27/2013 23:45 CDT Safety Grid Vision, Hearing, Mobility Adequate to Meet Safety Needs : Yes RAVIN TERESA Baker RN - 12/27/2013 23:45 CDT Gastrointestinal GI Patient Stated Symptoms : None Abdomen Description : Rounded Abdomen Palpation : Non-Tender, Soft Bowel Sounds All Quadrants : Present RAVIN TERESA Samuel ADAMS - 12/27/2013 23:45 CDT Nutrition Eating Difficulties : None Appetite : Good RAVINTERESA CANSECO RN - 12/27/2013 23:45 CDT Genitourinary Patient Stated Symptoms : None Urinary Elimination : Voiding, no difficulties Urine Color : Yellow Urine Description : Clear TERESA ALICIA Samuel ADAMS - 12/27/2013 23:45 CDT Integumentary Integumentary Patient Stated Symptoms : None Skin Integrity : Not intact Mucous Membrane Color : [place] Mucous Membrane Description : Moist Skin Color : Normal for ethnicity Skin Description : Dry Skin Temperature : Warm TERESA ALICIA Samuel ADAMS - 12/27/2013 23:45 CDT Incision/Wound Incision/Wound Care Grid Type : Other: 1st degree laceration Location : Other: perineum RAVINTERESA CANSECO RN - 12/27/2013 23:45 CDT Krzysztof Sensory Perception Krzysztof : No impairment Moisture Krzysztof : Rarely moist Activity Krzysztof : Walks frequently Mobility Krzysztof : No limitations Nutrition Krzysztof : Excellent Friction and Shear Krzysztof : No apparent problem Krzysztof Score : 23 TERESA ALICIA RN - 12/27/2013 23:45 CDT Musculoskeletal Musculoskeletal Patient Stated Symptoms : None TERESA ALICIA RN - 12/27/2013 23:45 CDT Musculoskeletal Strength Grid Left Upper Extremity Right Upper Extremity Left Lower Extremity Right Lower Extremity Strength : Strong to gravity and resistance Strong to gravity and resistance Strong to gravity and resistance Strong to gravity and resistance TERESA ALICIA RN - 12/27/2013 23:45 CDT TERESA ALICIA RN - 12/27/2013 23:45 CDTFTERESA DINERO RN - 12/27/2013 23:45 CDT TERESA ALICIA RN - 12/27/2013 23:45 CDT Peripheral IV Peripheral IV Assess/Intervention Grid Peripheral IV #1 IV Activity : Assessment IV Site : Hand Laterality : Left Catheter Size : 20 Catheter Type : Over the needle Site Condition : No complications Drainage Description : None Infiltration Score : 0 Phlebitis Score : 0 Dressing/ Activity : Dry, Intact Flow/ Patency : No complications TERESA ALICIA RN - 12/27/2013 23:45 CDT [facility] Confusion/Disorientation Hend[place] : No Depression Fall Risk Hend[place] : No Altered Elimination Fall Risk Hend[place] : No Dizziness/Vertigo Fall Risk Hendrich : No Gender, Male Fall Risk Hendrich : No Prescribed Antiepileptics Hendrich : No Prescribed Benzodiazepines Hend[place] : No Rising From Chair Fall Risk [place] : Pushes up, successful in one attempt Fall Risk Score Hendrich II : 1 TERESA ALICIA RN - 12/27/2013 23:45 CDT Education Antepartum Education Grid Education Topics : Baby home safety, Medication dosage, route, scheduling, [place] behavior, Normal , Pain management, [place]-Care, Plan of care, complications, Safety, fall Individuals Taught : Patient Barriers to Learning : None evident Teaching Method : Explanation Teaching Evaluation : Verbalizes understanding TERESA ALICIA RN - 12/27/2013 23:45 CDT Source: [employer] Document Id: [id number] CDT!153 Teresa Alicia R.N. - 12/27/2013 10:26 PM CDT Post Assessment * Post Assessment * Entered On: 12/27/2013 22:26 CDT Performed On: 12/27/2013 22:26 CDT by TERESA ALICIA RN Extremities Extremities : Edema Clonus : Not present TERESA ALICIA RN - 12/27/2013 22:26 CDT Lower Extremities Reflex Grid Left Knee : 1+ Right Knee : 1+ TERESA ALICIA RN - 12/27/2013 22:26 CDT Psycho/Emotional Pain Symptoms : No TERESA ALICIA RN - 12/27/2013 22:26 CDT Source: [employer] Document Id: [id number] CDT!9 Teresa Alicia R.N. - 12/27/2013 10:01 PM CDT Post Assessment * Post Assessment * Entered On: 12/27/2013 22:01 CDT Performed On: 12/27/2013 22:01 CDT by TERESA ALICIA RN Extremities Extremities : Edema Clonus : Not present TERESA ALICIA RN - 12/27/2013 22:01 CDT Lower Extremities Reflex Grid Left Knee : 2+ Right Knee : 2+ TERESA ALICIA RN - 12/27/2013 22:01 CDT Respiratory Respiratory Patient Stated Symptoms : None Respirations : Unlabored Respiratory Pattern : Regular All Lobes Breath Sounds : Clear Cough and Deep Breathe : Done Sputum Amount : None TERESA ALICIA RN - 12/27/2013 22:01 CDT Psycho/Emotional Pain Symptoms : No TERESA ALICIA RN - 12/27/2013 22:01 CDT Source: [employer] Document Id: [id number] CDT!16 Teresa Alicia R.N. - 12/27/2013 9:46 PM CDT Post Assessment * Post Assessment * Entered On: 12/27/2013 21:47 CDT Performed On: 12/27/2013 21:46 CDT by TERESA ALICIA RN Extremities Extremities : Edema Clonus : Not present TERESA ALICIA RN - 12/27/2013 21:46 CDT Lower Extremities Reflex Grid Left Knee : 2+ Right Knee : 2+ TERESA ALICIA RN - 12/27/2013 21:46 CDT Respiratory Respiratory Patient Stated Symptoms : None Respirations : Unlabored Respiratory Pattern : Regular All Lobes Breath Sounds : Clear TERESA ALICIA RN - 12/27/2013 21:46 CDT Psycho/Emotional Pain Symptoms : No TERESA ALICIA RN - 12/27/2013 21:46 CDT [facility] Document Id: [id number] CDT!14 Teresa Alicia R.N. - 12/27/2013 9:30 PM CDT Post Assessment * Post Assessment * Entered On: 12/27/2013 21:38 CDT Performed On: 12/27/2013 21:30 CDT by TERESA ALICIA RN Extremities Extremities : Edema Clonus : Not present TERESA ALICIA RN - 12/27/2013 21:37 CDT Lower Extremities Reflex Grid Left Knee : 2+ Right Knee : 2+ TERESA ALICIA RN - 12/27/2013 21:37 CDT Respiratory Respiratory Patient Stated Symptoms : None Respirations : Unlabored Respiratory Pattern : Regular All Lobes Breath Sounds : Clear TERESA ALICIA RN - 12/27/2013 21:37 CDT Psycho/Emotional Pain Symptoms : No TERESA ALICIA RN - 12/27/2013 21:37 CDT Source: [facility] [employer] Document Id: [id number] CDT!14 Teresa Alicia R.N. - 12/27/2013 7:25 PM CDT Post Assessment * Post Assessment * Entered On: 12/27/2013 19:25 CDT Performed On: 12/27/2013 19:25 CDT by TERESA ALICIA RN Post Partum Assessment * Fundus position : Midline Post Lochia : Lochia Rubra Excessive Lochia : Small Tear Assessment : Edges approximated Perineal Interventions : Witch prosper pads, Ice pack TERESA ALICIA RN - 12/27/2013 20:07 CDT Breast Condition : Soft Nipples : Normal Nipple tenderness location : Bilateral Breast Secretions : Colostrum Feeding Method : Infant Sucking : Latches well with sucking Fundus : Even Fundus condition : Firm TERESA ALICIA RN - 12/27/2013 19:25 CDT Extremities Clonus : Not present TERESA ALICIA RN - 12/27/2013 20:07 CDT Edema Detailed Grid Ankle Edema Pedal Edema Bilateral : 1+ trace/2mm 2+ mild/4mm TERESA ALICIA RN - 12/27/2013 20:07 CDT TERESA ALICIA RN - 12/27/2013 20:07 CDT Lower Extremities Reflex Grid Right Knee : 2+ Left Ankle : 2+ TERESA ALICIA RN - 12/27/2013 20:07 CDT Respiratory Respiratory Patient Stated Symptoms : None Respirations : Unlabored Respiratory Pattern : Regular All Lobes Breath Sounds : Clear Cough and Deep Breathe : Done Cough : None Sputum Amount : None Suction : None Airway : Patent TERESA ALICIA RN - 12/27/2013 20:07 CDT Cardiovascular CV Patient Stated Symptoms : None Heart Rhythm : Regular Heart Sounds ICU : S1S2 Nail Bed Color : [place] Capillary Refill : Less than 2 seconds TERESA ALICIA RN - 12/27/2013 20:07 CDT Pulses Grid Radial Pulse, Left : 2+ Normal Radial Pulse, Right : 2+ Normal Dorsalis Pedis Pulse, Left : 2+ Normal Dorsalis Pedis Pulse, Right : 2+ Normal TERESA ALICIA RN - 12/27/2013 20:07 CDT Skin Color : Normal for ethnicity Skin Description : Dry Skin Temperature : Warm Activity Tolerance : Minimal distress TERESA ALICIA RN - 12/27/2013 20:07 CDT Neurological Neuro Patient Stated Symptoms : None Orientation : Oriented x 3 Level of Consciousness : Alert Gait : Steady Swallowing Difficulty/Aspiration Risk : None TERESA ALICIA RN - 12/27/2013 20:07 CDT [place] Coma Eye Opening Response Mariangel : Spontaneously Best Verbal Response Mariangel : Oriented Best Motor Response [place] : Obeys simple commands [place] Coma Score : 15 RAVINTERESA GONZALEZ RN - 12/27/2013 20:07 CDT Psycho/Emotional Affect/Behavior : Calm Pain Symptoms : Yes TERESA ALICIA RN - 12/27/2013 20:07 CDT Coping Grid Identifies effective strategies : Yes Uses effective strategies : Yes Reports increase in psychological comfort : Yes Indicates sense of control : Yes Stressors perceived within control : Yes Stable mood with appropriate affect : Yes Behaviors indicate use of coping mechanism : Yes Family supportive and involved in care : Yes Values/Beliefs incorporated appropriately : Yes TERESA ALICIA RN - 12/27/2013 20:07 CDT Safety Grid Vision, Hearing, Mobility Adequate to Meet Safety Needs : Yes TERESA ALICIA RN - 12/27/2013 20:07 CDT Pain Pain Assessment Grid Pain 1 Location : Perineum Time Pattern : Acute Onset : Gradual Quality : Aching, Sharp Aggravating Factors : Movement Alleviating Factors : Medication Interventions : Medications TERESA ALICIA RN - 12/27/2013 20:07 CDT Gastrointestinal Abdomen Description : Rounded Abdomen Palpation : Tender Tenderness : Left lower quadrant, Right lower quadrant Bowel Sounds All Quadrants : Present TERESA ALICIA RN - 12/27/2013 20:07 CDT Nutrition Eating Difficulties : None TERESA ALICIA RN - 12/27/2013 20:07 CDT Genitourinary Urinary Elimination : Voiding, no difficulties Urine Color : Yellow Urine Description : Clear TERESA ALICIA RN - 12/27/2013 20:07 CDT Integumentary Integumentary Patient Stated Symptoms : None Skin Turgor : Elastic Skin Integrity : Not intact Mucous Membrane Color : [place] Mucous Membrane Description : Moist Skin Color : Normal for ethnicity Skin Description : Dry Skin Temperature : Warm TERESA ALICIA - 12/27/2013 20:07 CDT Incision/Wound Incision/Wound Care Grid Activity : Assessed Type : Other: 1st degree laceration Location : Other: perineum Description : Other: sutured Drainage : None Surrounding Tissue : No signs or symptoms of localized infection Wound Dressing : Other: open to air witch prosper pads applied Neurovascular Status : Neurovascular intact distal to injury, Pulses distal to injury palpable, Skindistal to injury warm and pink TERESA ALICIA [facility] - 12/27/2013 20:07 CDT Krzysztof Sensory Perception Krzysztof : No impairment Moisture Krzysztof : Rarely moist Activity Krzysztof : Walks frequently Mobility Krzysztof : No limitations Nutrition Krzysztof : Excellent Friction and Shear Krzysztof : No apparent problem Krzysztof Score : 23 TERESA ALICIA [facility] - 12/27/2013 20:07 CDT Musculoskeletal Musculoskeletal Patient Stated Symptoms : None Activity Tolerance : Without distress TERESA ALICIA [facility] - 12/27/2013 20:07 CDT Musculoskeletal Strength Grid Left Upper Extremity Right Upper Extremity Left Lower Extremity Right Lower Extremity Strength : Strong to gravity and resistance Strong to gravity and resistance Strong to gravity and resistance Strong to gravity and resistance TERESA ALICIA [facility] - 12/27/2013 20:07 CDT TERESA ALICIA [facility] 12/27/2013 20:07 CDTFTERESA DINERO [facility] - 12/27/2013 20:07 CDT TERESA ALICIA [facility] - 12/27/2013 20:07 CDT Peripheral IV Peripheral IV Assess/Intervention Grid Peripheral IV #1 IV Activity : Assessment IV Site : Hand Laterality : Left Catheter Size : 20 Catheter Type : Over the needle Site Condition : No complications Drainage Description : None Infiltration Score : 0 Phlebitis Score : 0 Dressing/ Activity : Dry, Intact Flow/ Patency : No complications TERESA ALICIA [facility] - 12/27/2013 20:07 CDT Hend[place] II Fall Risk Confusion/Disorientation Hendrich : No Depression Fall Risk Hendrich : No Altered Elimination Fall Risk Hendrich : No Dizziness/Vertigo Fall Risk [place] : No Gender, Male Fall Risk Hendrich : No Prescribed Antiepileptics [place]rich : No Prescribed Benzodiazepines [place] : No Rising From Chair Fall Risk Hendrich : Pushes up, successful in one attempt Fall Risk Score Samir II : 1 TERESA ALICIA RN - 12/27/2013 20:07 CDT Education Antepartum Education Grid Education Topics : , Colostrum, Medication dosage, route, scheduling, [place] behavior, Normal , [place], Plan of care, Safety, fall Individuals Taught : Patient Barriers to Learning : None evident Teaching Method : Explanation Teaching Evaluation : Verbalizes understanding TERESA ALICIA RN - 12/27/2013 20:07 CDT Source: [facility] [employer] Document Id: [id number] CDT!161 Laurie Ely R.N. - 12/27/2013 6:30 PM CDT Post Assessment * Post Assessment * Entered On: 12/27/2013 19:57 CDT Performed On: 12/27/2013 18:30 CDT by LAURIE ELY RN Post Partum Assessment * Fundus : Even Fundus condition : Firm Fundus position : Midline Post Lochia : Lochia Rubra Excessive Lochia : Moderate Perineal Interventions : Ice pack LAURIE ELY RN - 12/27/2013 19:57 CDT Psycho/Emotional Pain Symptoms : No LAURIE ELY RN - 12/27/2013 19:57 CDT Source: [facility] [employer] Document Id: [id number] CDT!10 Ankush Hinds R.N. - 12/27/2013 6:24 PM CDT Pneumonia Immunization Assessment Pneumonia Immunization Assessment Entered On: 12/27/2013 18:24 CDT Performed On: 12/27/2013 18:24 CDT by ANKUSH HINDS RN Pneumonia Protocol Pneumococcal Vaccine Exclusions : Patient has none of the below exclusions Pneumococcal Vaccine Age Group : Age 5 to 64 Pneumococcal Criteria 5 to 64 : Patient has none of the below criteria, vaccine is not indicated Pneumococcal Vaccine Candidate : No - Patient does not meet the criteria ANKUSH HINDS RN - 12/27/2013 18:24 CDT [facility] Document Id: [id number] CDT!6 Laurie Ely R.N. - 12/27/2013 6:00 PM CDT Post Assessment * Post Assessment * Entered On: 12/27/2013 19:57 CDT Performed On: 12/27/2013 18:00 CDT by LAURIE ELY RN Post Partum Assessment * Fundus : Even Fundus condition : Firm Fundus position : Midline Post Lochia : Lochia Rubra Excessive Lochia : Moderate Perineal Interventions : Ice pack LAURIE ELY RN - 12/27/2013 19:56 CDT Psycho/Emotional Pain Symptoms : No LAURIE ELY RN - 12/27/2013 19:56 CDT Source: [employer] Document Id: [id number] CDT!10 Laurie Ely R.N. - 12/27/2013 5:30 PM CDT Post Assessment * Post Assessment * Entered On: 12/27/2013 19:55 CDT Performed On: 12/27/2013 17:30 CDT by LAURIE ELY RN Post Partum Assessment * Fundus : Even Fundus condition : Firm Fundus position : Midline Post Lochia : Lochia Rubra Excessive Lochia : Moderate Perineal Interventions : Ice pack LAURIE ELY RN - 12/27/2013 19:54 CDT Psycho/Emotional Pain Symptoms : No LAURIE ELY RN - 12/27/2013 19:54 CDT Source: [employer] Document Id: [id number] CDT!10 Laurie Ely R.N. - 12/27/2013 5:15 PM CDT Post Assessment * Post Assessment * Entered On: 12/27/2013 19:54 CDT Performed On: 12/27/2013 17:15 CDT by LAURIE ELY RN Post Partum Assessment * Fundus : Even Fundus condition : Firm Fundus position : Midline Post Lochia : Lochia Rubra Excessive Lochia : Moderate Perineal Interventions : Ice pack LAURIE ELY RN - 12/27/2013 19:53 CDT Psycho/Emotional Pain Symptoms : No LAURIE ELY RN - 12/27/2013 19:53 CDT Source: [facility] [employer] Document Id: [id number] CDT!10 Laurie Ely R.N. - 12/27/2013 4:59 PM CDT Ongoing Assessment Antepartum Ongoing Assessment Antepartum Entered On: 12/27/2013 19:23 CDT Performed On: 12/27/2013 16:59 CDT by LAURIE ELY RN FHR, Franco/Baby A Uterine Contraction Monitoring Method : External toco Uterine Contraction Frequency : 2-5 Uterine Contraction Intensity, Ext Palp : Moderate Uterine Contraction Rest Tone, Ext Palp : Soft FHR Monitoring Method : Electronic monitoring FHR Monitoring Frequency : Continuous FHR Baseline : 130 (Comment: baseline 175 until 1640 and then slowly down to 130 baseline at time of delivery [LAURIE ELY RN - 12/27/2013 19:20 CDT] ) FHR Variability : Moderate variability FHR Accelerations : Present FHR Deceleration : Absent FHR Provider Present : Yes FHR Comment : delivery of female infant at this time LAURIE ELY RN - 12/27/2013 19:20 CDT Psycho/Emotional Pain Symptoms : Yes LAURIE ELY RN - 12/27/2013 19:20 CDT Pain Pain Assessment Grid Pain 1 Location : Abdomen LAURIE ELY RN - 12/27/2013 19:20 CDT Source: [employer] Document Id: [id number] CDT!20 Laurie Ely R.N. - 12/27/2013 4:30 PM CDT Ongoing Assessment Antepartum Ongoing Assessment Antepartum Entered On: 12/27/2013 19:19 CDT Performed On: 12/27/2013 16:30 CDT by LAURIE ELY RN FHR, Franco/Baby A Uterine Contraction Monitoring Method : External toco Uterine Contraction Frequency : 2-3 Uterine Contraction Intensity, Ext Palp : Moderate Uterine Contraction Rest Tone, Ext Palp : Soft FHR Monitoring Method : Electronic monitoring FHR Monitoring Frequency : Continuous FHR Baseline : 170 FHR Baseline Description : Tachycardia FHR Variability : Moderate variability FHR Accelerations : Present FHR Provider Present : Yes FHR Provider Notified : Yes FHR Comment : provider at bedside d/t tachycardia, pt continues pushing, temp 37.9 LAURIE ELY RN - 12/27/2013 19:18 CDT Psycho/Emotional Pain Symptoms : Yes LAURIE ELY RN - 12/27/2013 19:18 CDT Pain Pain Assessment Grid Pain 1 Location : Abdomen Intensity : 4 LAURIE ELY RN - 12/27/2013 19:18 CDT Source: [employer] Document Id: [id number] CDT!22 Laurie Ely R.N. - 12/27/2013 4:00 PM CDT Ongoing Assessment Antepartum Ongoing Assessment Antepartum Entered On: 12/27/2013 19:17 CDT Performed On: 12/27/2013 16:00 CDT by LAURIE ELY RN FHR, Franco/Baby A Uterine Contraction Monitoring Method : External toco Uterine Contraction Frequency : 2-4 Uterine Contraction Intensity, Ext Palp : Moderate Uterine Contraction Rest Tone, Ext Palp : Soft FHR Monitoring Method : Electronic monitoring FHR Monitoring Frequency : Continuous FHR Baseline : 155 Heart Rate Reactive Franco/Baby A : Yes FHR Variability : Moderate variability FHR Accelerations : Present FHR Comment : pushed on left and now SF LAURIE ELY RN - 12/27/2013 19:16 CDT Psycho/Emotional Pain Symptoms : Yes LAURIE ELY RN - 12/27/2013 19:16 CDT Pain Pain Assessment Grid Pain 1 Location : Abdomen Intensity : 4 LAURIE ELY RN - 12/27/2013 19:16 CDT Source: [employer] Document Id: [id number] CDT!20 Laurie Ely R.N. - 12/27/2013 3:30 PM CDT Ongoing Assessment Antepartum Ongoing Assessment Antepartum Entered On: 12/27/2013 19:16 CDT Performed On: 12/27/2013 15:30 CDT by LAURIE ELY RN FHR, Franco/Baby A Uterine Contraction Monitoring Method : External toco Uterine Contraction Frequency : 2-5 Uterine Contraction Intensity, Ext Palp : Moderate Uterine Contraction Rest Tone, Ext Palp : Soft FHR Monitoring Method : Electronic monitoring FHR Monitoring Frequency : Continuous FHR Baseline : 155 FHR Variability : Moderate variability FHR Accelerations : Present FHR Deceleration : Absent FHR Comment : pushing SF position LAURIE ELY RN - 12/27/2013 19:14 CDT Psycho/Emotional Pain Symptoms : Yes (Comment: states epidural effective for pain control [LAURIE ELY RN - 12/27/2013 19:14 CDT] ) LAURIE ELY RN - 12/27/2013 19:14 CDT Pain Pain Assessment Grid Pain 1 Location : Abdomen Intensity : 4 LAURIE ELY RN - 12/27/2013 19:14 CDT Source: [employer] Document Id: [id number] CDT!20 Laurie Ely R.N. - 12/27/2013 3:00 PM CDT Ongoing Assessment Antepartum Ongoing Assessment Antepartum Entered On: 12/27/2013 19:14 CDT Performed On: 12/27/2013 15:00 CDT by LAURIE ELY RN FHR, Franco/Baby A Uterine Contraction Monitoring Method : External toco Uterine Contraction Frequency : pushing Uterine Contraction Intensity, Ext Palp : Moderate Uterine Contraction Rest Tone, Ext Palp : Soft FHR Monitoring Method : Electronic monitoring FHR Monitoring Frequency : Continuous FHR Baseline : 145 FHR Variability : Moderate variability FHR Accelerations : Absent FHR Deceleration : Absent FHR Comment : pushing on right side now LAURIE ELY RN - 12/27/2013 19:12 CDT Psycho/Emotional Pain Symptoms : Yes LAURIE ELY RN - 12/27/2013 19:12 CDT Pain Pain Assessment Grid Pain 1 Location : Abdomen Intensity : 4 LAURIE ELY RN - 12/27/2013 19:12 CDT Source: [employer] Document Id: [id number] CDT!20 Laurie Ely R.N. - 12/27/2013 2:45 PM CDT Ongoing Assessment Antepartum Ongoing Assessment Antepartum Entered On: 12/27/2013 19:12 CDT Performed On: 12/27/2013 14:45 CDT by LAURIE ELY RN FHR, Franco/Baby A Uterine Contraction Monitoring Method : External toco Uterine Contraction Frequency : readjusted Uterine Contraction Intensity, Ext Palp : Moderate Uterine Contraction Rest Tone, Ext Palp : Soft FHR Monitoring Method : Electronic monitoring FHR Monitoring Frequency : Continuous FHR Baseline : 150 FHR Variability : Moderate variability FHR Accelerations : Present FHR Deceleration : Absent FHR Provider Present : Yes FHR Provider Notified : Yes FHR Comment : pushing began at this time LAURIE ELY RN - 12/27/2013 19:09 CDT Psycho/Emotional Pain Symptoms : Yes LAURIE ELY RN - 12/27/2013 19:12 CDT Pain Pain Assessment Grid Pain 1 Location : Abdomen Intensity : 4 LAURIE ELY RN - 12/27/2013 19:12 CDT Source: [employer] Document Id: [id number] CDT!8 Laurie Ely R.N. - 12/27/2013 2:30 PM CDT Ongoing Assessment Antepartum Ongoing Assessment Antepartum Entered On: 12/27/2013 19:09 CDT Performed On: 12/27/2013 14:30 CDT by LAURIE ELY RN FHR, Franco/Baby A Uterine Contraction Monitoring Method : External toco Uterine Contraction Frequency : 1.5-3 Uterine Contraction Duration : 30-50 Uterine Contraction Intensity, Ext Palp : Moderate Uterine Contraction Rest Tone, Ext Palp : Soft FHR Monitoring Method : Electronic monitoring FHR Monitoring Frequency : Continuous FHR Baseline : 145 Heart Rate Reactive Franco/Baby A : Yes FHR Variability : Moderate variability FHR Accelerations : Present FHR Deceleration : Absent FHR Provider Present : Yes FHR Provider Notified : Yes LAURIE ELY RN - 12/27/2013 19:07 CDT OB Exam Cervix Dilation : 10 Amniotic Fluid Amount : Small Amniotic Fluid Color/Description : Clear Presenting Part : Vertex LAURIE ELY RN - 12/27/2013 19:07 CDT Psycho/Emotional Pain Symptoms : Yes LAURIE ELY RN - 12/27/2013 19:07 CDT Pain Pain Assessment Grid Pain 1 Location : Abdomen Intensity : 4 LAURIE ELY RN - 12/27/2013 19:07 CDT Source: [facility] [employer] Document Id: [id number] CDT!28 Laurie Ely R.N. - 12/27/2013 2:00 PM CDT Ongoing Assessment Antepartum Ongoing Assessment Antepartum Entered On: 12/27/2013 19:07 CDT Performed On: 12/27/2013 14:00 CDT by LAURIE ELY RN FHR, Franco/Baby A Uterine Contraction Monitoring Method : External toco Uterine Contraction Frequency : 1.5-4.5 Uterine Contraction Duration : 30-40 Uterine Contraction Intensity, Ext Palp : Moderate Uterine Contraction Rest Tone, Ext Palp : Soft FHR Monitoring Method : Electronic monitoring FHR Monitoring Frequency : Continuous FHR Baseline : 145 FHR Variability : Moderate variability FHR Accelerations : Absent FHR Deceleration : Absent LAURIE ELY RN - 12/27/2013 19:05 CDT Psycho/Emotional Pain Symptoms : Yes LAURIE ELY RN - 12/27/2013 19:05 CDT Pain Pain Assessment Grid Pain 1 Location : Abdomen Intensity : 4 Interventions : Medications, Repositioning LAURIE ELY RN - 12/27/2013 19:05 CDT Source: [employer] Document Id: [id number] CDT!21 Laurie Ely R.N. - 12/27/2013 1:30 PM CDT Ongoing Assessment Antepartum Ongoing Assessment Antepartum Entered On: 12/27/2013 14:04 CDT Performed On: 12/27/2013 13:30 CDT by LAURIE ELY RN FHR, Franco/Baby A Uterine Contraction Monitoring Method : External toco Uterine Contraction Frequency : 2-5 Uterine Contraction Duration : 50-70 Uterine Contraction Intensity, Ext Palp : Moderate Uterine Contraction Rest Tone, Ext Palp : Soft FHR Monitoring Method : Electronic monitoring FHR Monitoring Frequency : Continuous FHR Baseline : 150 FHR Baseline Description : Within normal limits FHR Variability : Moderate variability FHR Accelerations : Present FHR Deceleration : Absent LAURIE ELY RN - 12/27/2013 13:45 CDT OB Exam Cervix Dilation : 9 Station : -1 Membrane Status : Spontaneous rupture (Comment: upon exam Dr. Harrington ruptured forebag. Clear fluid [LAURIE ELY RN - 12/27/2013 13:45 CDT] ) Vaginal Discharge Description : Clear Presenting Part : Vertex LAURIE ELY RN - 12/27/2013 13:45 CDT Psycho/Emotional Pain Symptoms : No LAURIE ELY RN - 12/27/2013 13:45 CDT Source: [employer] Document Id: [id number] CDT!22 Laurie Ely R.N. - 12/27/2013 1:00 PM CDT Ongoing Assessment Antepartum Ongoing Assessment Antepartum Entered On: 12/27/2013 13:45 CDT Performed On: 12/27/2013 13:00 CDT by LAURIE ELY RN FHR, Franco/Baby A Uterine Contraction Monitoring Method : External toco Uterine Contraction Frequency : 2-4 Uterine Contraction Duration : 50-60 Uterine Contraction Intensity, Ext Palp : Moderate Uterine Contraction Rest Tone, Ext Palp : Soft FHR Monitoring Method : Electronic monitoring FHR Monitoring Frequency : Continuous FHR Baseline : 155 Heart Rate Reactive Franco/Baby A : Yes FHR Baseline Description : Within normal limits FHR Variability : Moderate variability FHR Accelerations : Present FHR Deceleration : Absent LAURIE ELY RN - 12/27/2013 13:43 CDT Psycho/Emotional Pain Symptoms : No LAURIE ELY RN - 12/27/2013 13:43 CDT Source: [employer] Document Id: [id number] CDT!17 Laurie Ely R.N. - 12/27/2013 12:30 PM CDT Ongoing Assessment Antepartum Ongoing Assessment Antepartum Entered On: 12/27/2013 12:46 CDT Performed On: 12/27/2013 12:30 CDT by LAURIE ELY RN FHR, Franco/Baby A Uterine Contraction Monitoring Method : External toco Uterine Contraction Frequency : 2-4 readjusted Uterine Contraction Duration : 40-60 Uterine Contraction Intensity, Ext Palp : Moderate Uterine Contraction Rest Tone, Ext Palp : Soft FHR Monitoring Method : Electronic monitoring FHR Monitoring Frequency : Continuous FHR Baseline : 150 FHR Baseline Description : Within normal limits FHR Variability : Moderate variability (Comment: minimal variability noted until 1220 [LAURIE ELY RN - 12/27/2013 12:43 CDT] ) FHR Accelerations : Absent FHR Deceleration : Absent FHR Deceleration Interventions : Turn to left side LAURIE ELY RN - 12/27/2013 12:43 CDT Psycho/Emotional Pain Symptoms : No LAURIE ELY RN - 12/27/2013 12:46 CDT [facility] Document Id: [id number] CDT!3 aLurie Ely R.N. - 12/27/2013 12:00 PM CDT Ongoing Assessment Antepartum Ongoing Assessment Antepartum Entered On: 12/27/2013 12:25 CDT Performed On: 12/27/2013 12:00 CDT by LAURIE ELY RN FHR, Franco/Baby A Uterine Contraction Monitoring Method : External toco Uterine Contraction Frequency : 1.5-2.5 Uterine Contraction Duration : 30-50 Uterine Contraction Intensity, Ext Palp : Moderate Uterine Contraction Rest Tone, Ext Palp : Soft FHR Monitoring Method : Electronic monitoring FHR Monitoring Frequency : Continuous FHR Baseline : 155 Heart Rate Reactive Franco/Baby A : Yes FHR Baseline Description : Within normal limits FHR Variability : Moderate variability FHR Accelerations : Present FHR Deceleration : Absent LAURIE ELY RN - 12/27/2013 12:22 CDT Psycho/Emotional Pain Symptoms : No LAURIE ELY RN - 12/27/2013 12:22 CDT Source: [employer] Document Id: [id number] CDT!17 Laurie Ely R.N. - 12/27/2013 11:36 AM CDT Ongoing Assessment Antepartum Ongoing Assessment Antepartum Entered On: 12/27/2013 11:38 CDT Performed On: 12/27/2013 11:36 CDT by LAURIE ELY RN FHR, Franco/Baby A Uterine Contraction Monitoring Method : External toco Uterine Contraction Frequency : 1.5-3 Uterine Contraction Duration : 60 Uterine Contraction Intensity, Ext Palp : Moderate Uterine Contraction Rest Tone, Ext Palp : Soft FHR Monitoring Method : Electronic monitoring FHR Monitoring Frequency : Continuous FHR Baseline : 150 FHR Variability : Minimal variability FHR Accelerations : Present (Comment: X1 [LAURIE ELY RN - 12/27/2013 11:36 CDT] ) FHR Deceleration : Absent FHR Deceleration Interventions : Turn to left side LAURIE ELY RN - 12/27/2013 11:36 CDT Psycho/Emotional Pain Symptoms : No LAURIE ELY RN - 12/27/2013 11:36 CDT [facility] Document Id: [id number] CDT!16 Laurie Ely R.N. - 12/27/2013 11:00 AM CDT Ongoing Assessment Antepartum Ongoing Assessment Antepartum Entered On: 12/27/2013 11:27 CDT Performed On: 12/27/2013 11:00 CDT by LAURIE ELY RN FHR, Franco/Baby A Uterine Contraction Monitoring Method : External toco Uterine Contraction Frequency : 2-3.5 Uterine Contraction Duration : 40-60 Uterine Contraction Intensity, Ext Palp : Moderate Uterine Contraction Rest Tone, Ext Palp : Soft FHR Monitoring Method : Electronic monitoring FHR Monitoring Frequency : Continuous FHR Baseline : 150 FHR Baseline Description : Within normal limits FHR Variability : Moderate variability FHR Accelerations : Present FHR Deceleration : Absent FHR Provider Present : Yes FHR Comment : Dr. Harrington reviewed tracing. No new orders recieved LAURIE ELY RN - 12/27/2013 11:23 CDT Psycho/Emotional Pain Symptoms : No LAURIE ELY RN - 12/27/2013 11:23 CDT Source: [employer] Document Id: [id number] CDT!18 Laurie Ely R.N. - 12/27/2013 10:30 AM CDT Ongoing Assessment Antepartum Ongoing Assessment Antepartum Entered On: 12/27/2013 11:23 CDT Performed On: 12/27/2013 10:30 CDT by LAURIE ELY RN FHR, Franco/Baby A Uterine Contraction Monitoring Method : External toco Uterine Contraction Frequency : 2-3 Uterine Contraction Duration : 40-60 Uterine Contraction Intensity, Ext Palp : Moderate Uterine Contraction Rest Tone, Ext Palp : Soft FHR Monitoring Method : Electronic monitoring FHR Monitoring Frequency : Continuous FHR Baseline : 155 FHR Variability : Minimal variability FHR Accelerations : Present (Comment: X1 [LAURIE ELY RN - 12/27/2013 11:20 CDT] ) FHR Deceleration : Absent FHR Deceleration Interventions : Turn to right side FHR Provider Present : Yes LAURIE ELY RN - 12/27/2013 11:20 CDT Psycho/Emotional Pain Symptoms : No LAURIE ELY RN - 12/27/2013 11:20 CDT Source: [employer] Document Id: [id number] CDT!17 Laurie Ely R.N. - 12/27/2013 10:00 AM CDT Ongoing Assessment Antepartum Ongoing Assessment Antepartum Entered On: 12/27/2013 10:06 CDT Performed On: 12/27/2013 10:00 CDT by LAURIE ELY RN FHR, Franco/Baby A Uterine Contraction Frequency : 2-3 Uterine Contraction Duration : 40-60 Uterine Contraction Intensity, Ext Palp : Moderate Uterine Contraction Rest Tone, Ext Palp : Soft FHR Monitoring Method : Electronic monitoring FHR Monitoring Frequency : Continuous FHR Baseline : 165 FHR Variability : Moderate variability FHR Accelerations : Present FHR Deceleration : Absent FHR Provider Present : Yes FHR Provider Notified : Yes FHR Comment : notified of maternal temperature and FHTs LAURIE ELY RN - 12/27/2013 10:00 CDT Psycho/Emotional Pain Symptoms : No LAURIE ELY RN - 12/27/2013 10:00 CDT Source: [employer] Document Id: [id number] CDT!17 Laurie Ely R.N. - 12/27/2013 9:30 AM CDT Ongoing Assessment Antepartum Ongoing Assessment Antepartum Entered On: 12/27/2013 10:00 CDT Performed On: 12/27/2013 9:30 CDT by LAURIE ELY RN FHR, Franco/Baby A Uterine Contraction Monitoring Method : External toco Uterine Contraction Frequency : 2-4 Uterine Contraction Duration : 60-80 Uterine Contraction Intensity, Ext Palp : Moderate Uterine Contraction Rest Tone, Ext Palp : Soft FHR Monitoring Method : Electronic monitoring FHR Monitoring Frequency : Continuous FHR Baseline : 155 FHR Variability : Minimal variability FHR Accelerations : Present (Comment: X1 [LAURIE ELY RN - 12/27/2013 9:47 CDT] ) FHR Deceleration : Absent FHR Provider Present : Yes LAURIE ELY RN - 12/27/2013 9:47 CDT Psycho/Emotional Pain Symptoms : No LAURIE ELY RN - 12/27/2013 9:47 CDT Source: [employer] Document Id: [id number] CDT!16 Laurie Ely R.N. - 12/27/2013 9:00 AM CDT Ongoing Assessment Antepartum Ongoing Assessment Antepartum Entered On: 12/27/2013 9:43 CDT Performed On: 12/27/2013 9:00 CDT by LAURIE ELY RN FHR, Franco/Baby A Uterine Contraction Monitoring Method : External toco Uterine Contraction Frequency : 2-5 Uterine Contraction Duration : 30-50 Uterine Contraction Intensity, Ext Palp : Moderate Uterine Contraction Rest Tone, Ext Palp : Soft FHR Monitoring Method : Electronic monitoring FHR Monitoring Frequency : Continuous FHR Baseline : 165 FHR Baseline Description : Tachycardia FHR Variability : Minimal variability FHR Accelerations : Absent FHR Deceleration : Absent FHR Provider Present : Yes FHR Provider Notified : Yes FHR Comment : no orders recieved. will continue to closely monitor LAURIE ELY RN - 12/27/2013 9:35 CDT Psycho/Emotional Pain Symptoms : No LAURIE ELY RN - 12/27/2013 9:35 CDT Source: [employer] Document Id: [id number] CDT!19 Laurie Ely R.N. - 12/27/2013 8:30 AM CDT Ongoing Assessment Antepartum Ongoing Assessment Antepartum Entered On: 12/27/2013 9:34 CDT Performed On: 12/27/2013 8:30 CDT by LAURIE ELY RN FHR, Franco/Baby A Uterine Contraction Monitoring Method : External toco Uterine Contraction Frequency : unable to assess, readjusted Uterine Contraction Intensity, Ext Palp : Moderate Uterine Contraction Rest Tone, Ext Palp : Soft FHR Monitoring Method : Electronic monitoring FHR Monitoring Frequency : Continuous FHR Baseline : 160 FHR Variability : Moderate variability (Comment: minimal until 0812 then moderate [LAURIE ELY RN - 12/27/2013 9:31 CDT] ) FHR Accelerations : Absent FHR Deceleration : Absent FHR Deceleration Interventions : Turn to left side FHR Provider Present : Yes FHR Provider Notified : Yes FHR Comment : notified of temperature and monitor tracing. increase in baseline and minimal variability LAURIE ELY RN - 12/27/2013 9:31 CDT Psycho/Emotional Pain Symptoms : No LAURIE ELY RN - 12/27/2013 9:35 CDT Source: [facility] [employer] Document Id: [id number] CDT!3 Laurie Ely R.N. - 12/27/2013 8:00 AM CDT Ongoing Assessment Antepartum Ongoing Assessment Antepartum Entered On: 12/27/2013 9:29 CDT Performed On: 12/27/2013 8:00 CDT by LAURIE ELY RN FHR, Franco/Baby A Uterine Contraction Monitoring Method : External toco Uterine Contraction Frequency : 2-4 Uterine Contraction Duration : 30-40 Uterine Contraction Intensity, Ext Palp : Moderate Uterine Contraction Rest Tone, Ext Palp : Soft FHR Monitoring Method : Electronic monitoring FHR Monitoring Frequency : Continuous FHR Baseline : 160 Heart Rate Reactive Franco/Baby A : Yes FHR Baseline Description : Within normal limits (Comment: baseline increasing [LAURIE ELY RN - 12/27/2013 9:26 CDT] ) FHR Variability : Moderate variability FHR Accelerations : Present FHR Deceleration : Absent FHR Deceleration Interventions : Turn to right side FHR Provider Present : Yes FHR Provider Notified : Yes FHR Comment : Dr. Harrington in to see patient. POC discussed. EFM tracings reviewed with Dr. Harringtonre: mild variablility and increasing baseline LAURIE ELY RN - 12/27/2013 9:26 CDT Psycho/Emotional Pain Symptoms : No LAURIE ELY RN - 12/27/2013 9:30 CDT Source: [employer] Document Id: [id number] CDT!3 Laurie Ely R.N. - 12/27/2013 7:30 AM CDT Ongoing Assessment Antepartum Ongoing Assessment Antepartum Entered On: 12/27/2013 9:26 CDT Performed On: 12/27/2013 7:30 CDT by LAURIE ELY RN FHR, Franco/Baby A Uterine Contraction Monitoring Method : External toco Uterine Contraction Frequency : 1.5-4.5 Uterine Contraction Duration : 40-50 Uterine Contraction Intensity, Ext Palp : Moderate Uterine Contraction Rest Tone, Ext Palp : Soft FHR Monitoring Method : Electronic monitoring FHR Monitoring Frequency : Continuous FHR Baseline : 155 FHR Baseline Description : Within normal limits FHR Variability : Minimal variability FHR Accelerations : Absent FHR Deceleration : Absent FHR Deceleration Interventions : Turn to left side FHR Provider Present : Yes LAURIE ELY RN - 12/27/2013 9:21 CDT Psycho/Emotional Pain Symptoms : No LAURIE ELY RN - 12/27/2013 9:21 CDT Source: [employer] Document Id: [id number] CDT!18 Laurie Ely R.N. - 12/27/2013 7:00 AM CDT Ongoing Assessment Antepartum Ongoing Assessment Antepartum Entered On: 12/27/2013 9:21 CDT Performed On: 12/27/2013 7:00 CDT by LAURIE ELY RN FHR, Franco/Baby A Uterine Contraction Monitoring Method : External toco Uterine Contraction Frequency : unable to assess, readjusted Uterine Contraction Intensity, Ext Palp : Moderate Uterine Contraction Rest Tone, Ext Palp : Soft FHR Monitoring Method : Electronic monitoring FHR Monitoring Frequency : Continuous FHR Baseline : 150 FHR Variability : Minimal variability FHR Accelerations : Absent FHR Deceleration : Absent FHR Deceleration Interventions : Turn to right side LAURIE ELY RN - 12/27/2013 9:19 CDT Psycho/Emotional Pain Symptoms : No LAURIE ELY RN - 12/27/2013 9:19 CDT Source: [employer] Document Id: [id number] CDT!15 Teresa Alicia RGonzaloNGonzalo - 12/27/2013 6:48 AM CDT Md notification 0630- notified of change in base line heart rate in EFM to 160bpm. no new orders recieved. Electronically Signed By: TERESA ALICIA RN On: 12/27/2013 06:49 AM Source: [employer] Document Id: [id number] Teresa Alicia R.N. - 12/27/2013 6:45 AM CDT Md notification 0500- Dr. Madrid updated on pt condition. Epidural placement, low blood pressure during epiduralplacement, and cervical check. No new orders recieved. Electronically Signed By: TERESA ALICIA RN On: 12/27/2013 06:47 AM Source: [employer] Document Id: [id number] Teresa Alicia R.N. - 12/27/2013 6:00 AM CDT Ongoing Assessment Antepartum Ongoing Assessment Antepartum Entered On: 12/27/2013 6:34 CDT Performed On: 12/27/2013 6:00 CDT by TERESA ALICIA RN OB Exam Cervix Dilation : 6 Cervix Effacement : 80 Cervical Consistency : Soft Station : 0 Membrane Status : Spontaneous rupture TERESA ALICIA RN - 12/27/2013 6:33 CDT Psycho/Emotional Pain Symptoms : No TERESA ALICIA RN - 12/27/2013 6:33 CDT Source: [employer] Document Id: [id number] CDT!9 Teresa Alicia R.N. - 12/27/2013 2:42 AM CDT PRN Response PRN Response Entered On: 12/27/2013 3:31 CDT Performed On: 12/27/2013 2:42 CDT by TERESA ALICIA RN PRN Medication Effectiveness Evaluation PRN Medication Effective : Yes Post Medication Pain Assessment : 8 TERESA ALICIA RN - 12/27/2013 3:31 CDT Source: [employer] Document Id: [id number] CDT!4 Teresa Alicia R.N. - 12/27/2013 2:24 AM CDT Ongoing Assessment Antepartum Ongoing Assessment Antepartum Entered On: 12/27/2013 2:26 CDT Performed On: 12/27/2013 2:24 CDT by TERESA ALICIA RN FHR, Franco/Baby A Uterine Contraction Monitoring Method : External toco Uterine Contraction Frequency : 2-3 Uterine Contraction Duration : 60-70 Uterine Contraction Intensity, Ext Palp : Moderate Uterine Contraction Rest Tone, Ext Palp : Soft FHR Monitoring Method : Electronic monitoring FHR Monitoring Frequency : Continuous FHR Baseline : 140 Heart Rate Reactive Franco/Baby A : Yes FHR Baseline Description : Within normal limits FHR Tracing : Category 1 FHR Variability : Moderate variability Sinusoidal Franco/Baby A : No FHR Accelerations : Present FHR Deceleration : Absent TERESA ALICIA RN - 12/27/2013 2:24 CDT OB Exam Cervix Dilation : 4-5 Cervix Effacement : 80 Cervical Consistency : Soft Station : 0 Membrane Status : Spontaneous rupture Vaginal Discharge Description : Clear, Blood tinged TERESA ALICIA RN - 12/27/2013 2:24 CDT Psycho/Emotional Affect/Behavior : Calm Pain Symptoms : Yes TERESA ALICIA RN - 12/27/2013 2:24 CDT Pain Pain Assessment Grid Pain 1 Location : Abdomen Laterality : Bilateral Intensity : 8 Alleviating Factors : Medication TERESA ALICIA RN - 12/27/2013 2:24 CDT Source: [employer] Document Id: [id number] CDT!34 Teresa Alicia RChristy - 12/27/2013 12:45 AM CDT Ongoing Assessment Antepartum Ongoing Assessment Antepartum Entered On: 12/27/2013 0:50 CDT Performed On: 12/27/2013 0:45 CDT by TERESA ALICIA RN Extremities Clonus : Not present TERESA ALICIA RN - 12/27/2013 0:45 CDT Edema Detailed Grid Ankle Edema Pedal Edema Bilateral : 1+ trace/2mm 1+ trace/2mm TERESA ALICIA RN - 12/27/2013 0:45 CDT TERESA ALICIA RN - 12/27/2013 0:45 CDT Lower Extremities Reflex Grid Right Knee : 2+ Left Ankle : 2+ TERESA ALICIA RN - 12/27/2013 0:45 CDT Respiratory Respiratory Patient Stated Symptoms : None Respirations : Unlabored Respiratory Pattern : Regular All Lobes Breath Sounds : Clear Cough : None TERESA ALICIA RN - 12/27/2013 0:45 CDT Cardiovascular Heart Rhythm : Regular Heart Sounds ICU : S1S2 Nail Bed Color : [place] Capillary Refill : Less than 2 seconds TERESA ALICIA [facility] 12/27/2013 0:45 CDT Pulses Grid Radial Pulse, Left : 2+ Normal Radial Pulse, Right : 2+ Normal Dorsalis Pedis Pulse, Left : 2+ Normal Dorsalis Pedis Pulse, Right : 2+ Normal TERESA ALICIA [facility] 12/27/2013 0:45 CDT Skin Color : Normal for ethnicity Skin Description : Dry Skin Temperature : Warm Activity Tolerance : Minimal distress TERESA ALICIA [facility] 12/27/2013 0:45 CDT Neurological Neuro Patient Stated Symptoms : None Orientation : Oriented x 3 Level of Consciousness : Alert Gait : Steady Swallowing Difficulty/Aspiration Risk : None TERESA ALICIA [facility] 12/27/2013 0:45 CDT [place] Coma Eye Opening Response Mariangel : Spontaneously Best Verbal Response [place] : Oriented Best Motor Response [place] : Obeys simple commands Mariangel Coma Score : 15 TERESA ALICIA [facility] 12/27/2013 0:45 CDT Psycho/Emotional Affect/Behavior : Calm Pain Symptoms : Yes TERESA ALICIA [facility] 12/27/2013 0:45 CDT Coping Grid Identifies effective strategies : Yes Uses effective strategies : Yes Reports increase in psychological comfort : Yes Indicates sense of control : Yes Stressors perceived within control : Yes Stable mood with appropriate affect : Yes Behaviors indicate use of coping mechanism : Yes Family supportive and involved in care : Yes Values/Beliefs incorporated appropriately : Yes RAVINTERESA [facility] - 12/27/2013 0:45 CDT Safety Grid Vision, Hearing, Mobility Adequate to Meet Safety Needs : Yes TERESA ALICIA [facility] 12/27/2013 0:45 CDT Pain Pain Assessment Grid Pain 1 Location : Abdomen Laterality : Bilateral TERESA ALICIA [facility] 12/27/2013 0:45 CDT Gastrointestinal GI Patient Stated Symptoms : None Abdomen Description : Rounded Abdomen Palpation : Soft, Tender Tenderness : Left lower quadrant, Right lower quadrant Bowel Sounds All Quadrants : Present TERESA ALICIA [facility] 12/27/2013 0:45 CDT Nutrition Eating Difficulties : None Appetite : Good TERESA ALICIA [facility] 12/27/2013 0:45 CDT Genitourinary Patient Stated Symptoms : None Urinary Elimination : Voiding, no difficulties Urine Color : Yellow Urine Description : Clear TERESA ALICIA [facility] 12/27/2013 0:45 CDT Integumentary Integumentary Patient Stated Symptoms : None Skin Turgor : Elastic Skin Integrity : Intact Mucous Membrane Color : [place] Mucous Membrane Description : Moist Skin Color : Normal for ethnicity Skin Description : Dry Skin Temperature : Warm TERESA ALICIA [facility] 12/27/2013 0:45 CDT Krzysztof Sensory Perception Krzysztof : No impairment Moisture Krzysztof : Rarely moist Activity Krzysztof : Walks frequently Mobility Krzysztof : No limitations Nutrition Krzysztof : Excellent Friction and Shear Krzysztof : No apparent problem Krzysztof Score : 23 TERESA ALICIA [facility] 12/27/2013 0:45 CDT Musculoskeletal Musculoskeletal Patient Stated Symptoms : None TERESA ALICIA [facility] 12/27/2013 0:45 CDT Musculoskeletal Strength Grid Left Upper Extremity Right Upper Extremity Left Lower Extremity Right Lower Extremity Strength : Strong to gravity and resistance Strong to gravity and resistance Strong to gravity and resistance Strong to gravity and resistance TERESA ALICIA [facility] 12/27/2013 0:45 CDT TERESA ALICIA [facility] 12/27/2013 0:45 CDT TREESA ALICIA [facility] 12/27/2013 0:45 CDT RAVINTERESA [facility] 12/27/2013 0:45 CDT Peripheral IV Peripheral IV Assess/Intervention Grid Peripheral IV #1 IV Activity : Assessment IV Site : Hand Laterality : Left Catheter Size : 20 Catheter Type : Over the needle Site Condition : No complications Drainage Description : None Infiltration Score : 0 Phlebitis Score : 0 Dressing/ Activity : Dry, Intact Flow/ Patency : No complications TERESA ALICIA [facility] 12/27/2013 0:45 CDT Hendrich II Fall Risk Confusion/Disorientation Hendrich : No Depression Fall Risk Hendrich : No Altered Elimination Fall Risk Hendrich : No Dizziness/Vertigo Fall Risk Hendrich : No Gender, Male Fall Risk Hendrich : No Prescribed Antiepileptics Hendrich : No Prescribed Benzodiazepines Hendrich : No Rising From Chair Fall Risk Hendrich : Pushes up, successful in one attempt Fall Risk Score Hendrich II : 1 TERESA ALICIA [facility] 12/27/2013 0:45 CDT Education General Patient Education [employer] Topics : Activity limitations/expectations, Medication dosage, route, scheduling, Pain Management, Plan of care, Safety, fall Individuals Taught : Patient Barriers to Learning : None evident Teaching Method : Explanation Teaching Evaluation : Verbalizes understanding TERESA ALICIA RN - 12/27/2013 0:45 CDT Source: [facility] [employer] Document Id: [id number] CDT!136 Teresa Alicia R.N. - 12/26/2013 9:05 PM CDT md notification 2104- Md notified about pt blood pressure of 146/75. No new orders recieved., Electronically Signed By: TERESA ALICIA RN On: 12/26/2013 09:05 PM Source: [employer] Document Id: [id number] Teresa Alicia R.N. - 12/26/2013 8:04 PM CDT at bed side 2000- Dr. Madrid at bedside discussing starting pitocin with pt. Md did not want pt cervical check before initiating pitocin. orders recieved. Electronically Signed By: TERESA ALICIA RN On: 12/26/2013 08:06 PM Source: [employer] Document Id: [id number] Luul Richardson R.N. - 12/26/2013 5:11 PM CDT Protocol Vascular Access Adult Protocol Vascular Access Adult Entered On: 12/26/2013 17:12 CDT Performed On: 12/26/2013 17:11 CDT by LULU RICHARDSON RN Vascular Access Adult Protocol Age 15 years or older Adult Protocol : Yes Vascular Access Device Adult : Yes Exclusion Criteria Adult Vascular Access Protocol : Patient has none of the below exclusions Vascular Access Protocol Status Adult : Criteria Met LULU RICHARDSON RN - 12/26/2013 17:11 CDT Source: [employer] Document Id: [id number] CDT!6 Lulu Richardson R.N. - 12/26/2013 3:15 PM CDT Ongoing Assessment Antepartum Ongoing Assessment Antepartum Entered On: 12/26/2013 16:49 CDT Performed On: 12/26/2013 15:15 CDT by LULU RICHARDSON RN FHR, Franco/Baby A Uterine Contraction Monitoring Method : External toco Uterine Contraction Frequency : 3-4 Uterine Contraction Duration : 30-60 Uterine Contraction Intensity, Ext Palp : Mild Uterine Contraction Rest Tone, Ext Palp : Soft FHR Monitoring Method : Electronic monitoring FHR Monitoring Frequency : Continuous FHR Baseline : 135 Heart Rate Reactive Franco/Baby A : Yes FHR Baseline Description : Within normal limits FHR Tracing : Category 1 FHR Variability : Moderate variability Sinusoidal Franco/Baby A : No FHR Accelerations : Present FHR Deceleration : Absent LULU RICHARDSON RN - 12/26/2013 15:56 CDT Triage Chief Complaint : ROM Movement : Present Contractions, Subjective : Yes Urge To Push, Subjective : No Leaking Fluid, Subjective : Yes Color of Amniotic Fluid, Subjective : Clear Vaginal Bleeding : Yes Vaginal Bleeding Amount, Subjective : Spotting Intensity : 0 LULU RICHARDSON RN - 12/26/2013 15:56 CDT OB Exam Reason For Visit OB : Suspected rupture of membranes LULU RICHARDSON RN - 12/26/2013 15:56 CDT Extremities Clonus : Not present LULU RICHARDSON RN - 12/26/2013 15:56 CDT Psycho/Emotional Pain Symptoms : No LULU RICHARDSON RN - 12/26/2013 15:56 CDT [facility] Document Id: [id number] CDT!33 Lulu Richardson, R.N. - 12/26/2013 2:45 PM CDT Antepartum Testing Antepartum Testing Entered On: 12/26/2013 15:56 CDT Performed On: 12/26/2013 14:45 CDT by LULU RICHARDSON RN NST, Baby A/Franco Indication for Test : labor Heart Rate Baseline : 135 Variability : Moderate Accelerations : Present Decelerations : Absent Contractions : Present Contraction Frequency : 2-5 Interpretation : Reactive Comment : Dr. Madrid notified, pt admitted for ROM Provider : CARLEE MADRID MD, CARRIE M RN - 12/26/2013 15:43 CDT Source: [facility] [employer] Document Id: [id number] CDT!12 documented in this encounter Miscellaneous Notes Miscellaneous - Betzaida Kahn M.D. - 07/26/2015 12:50 PM CST Refill Request Reviewed chart, just had visit with Dr. Dupont, will refill ProAir HFA as requested. Last refill 2012. Source: [facility] [employer] Document Id: [id number] [facility] Miscellaneous - Conversion, Historical Provider Ser - 06/06/2015 11:52 AM CDT Schedule Follow-Up Visit 06 June 2015 DHIRAJ JOSEPH [id number] [facility] [id number] Dear DHIRAJ JOSEPH, APPOINTMENT REMINDER: We have had two unsuccessful attempts to contact you via phone. Our records indicate that it is timefor you to be seen for Follow Up Depo with [facility]. You may call our office at [phone] to schedule an appointment with Women's Health. Please disregard this notice if you have already made an appointment. Sincerely, Mary Beth Beasley [facility] Sincerely, MARY BETH BRUNSON Electronic Signature Electronically Signed By: MARY BETH BRUNSON On: 06 June 2015 This document has images extracted. Source: [facility] [employer] Document Id: [id number] Miscellaneous - Conversion, Historical Provider Ser - 12/29/2013 3:00 PM CDT Coding Summary-Paper Based CODING DATE: 09/15/2015 FINAL [facility] STATUS: * Discharged to Home or Self Care PAYOR: [employer] Gr[employer]per: 775 MS-DRG Vaginal delivery w/o complicating diagnoses ADMIT DX: 642.31 Transient Hypertension of , Delivered, with or without Mention of Antepartum Condition REASON FOR VISIT DX: FINAL DX: PRINCIPAL: 642.31 Y Transient Hypertension of , Delivered, with or without Mention of Antepartum Condition SECONDARY: V02.51 Carrier or Suspected Carrier of Group B Streptococcus 648.91 Y Other Current Conditions Classifiable Elsewhere, Complicating , Childbirth, or the [place], Delivered, with or without Mention of Antepartum Condition V27.0 Mother with Single Liveborn 664.01 N First-Degree Perineal Laceration During Delivery, Delivered, with or without Mention of Antepartum Condition 493.90 Y Asthma, Unspecified 659.71 N Abnormality in Heart Rate or Rhythm, Delivered, with or without Mention of Antepartum Condition PROCEDURES DOCTOR NAME DATE 73.59 Other Manually Assisted BRIDGET HARRINGTON M012/27/2013 Delivery 75.69 Repair of Other Current BRIDGET HARRINGTON M012/27/2013 Obstetric Laceration 03.91 Injection of Anesthetic Into RENATA WHEELER Ki 12/27/2013 Spinal Canal for Analgesia NOTE: The code number assigned matches the documented diagnosis and / or procedure in the patient's chart. However, the narrative phrase printed from the coding software may appear abbreviated, or result in slightly different terminology. Coded By: JC FISHER Date Saved: 09/15/2015 07:40 am Source: [facility] [employer] Document Id: [id number] Miscellaneous - Lexii Parkinson R.N. - 12/29/2013 7:51 AM CDT Adult Activities of Daily Living Adult Activities of Daily Living Entered On: 12/29/2013 7:52 CDT Performed On: 12/29/2013 7:51 CDT by LEXII REEVES RN ADLs I Patient Position : Sitting in bed Activity Status ADL : Ambulating in room LEXII REEVES RN - 12/29/2013 7:51 CDT Source: [employer] Document Id: [id number] CDT!4 Ramona - Chelsea Saucedo R.NGonzalo - 12/29/2013 5:29 AM CDT Adult Pain Assessment Adult Pain Assessment Entered On: 12/29/2013 5:29 CDT Performed On: 12/29/2013 5:29 CDT by CHELSEA SAUCEDO Pain Pain Assessment Grid Pain 1 Intensity : 0 CHELSEA SAUCEDO - 12/29/2013 5:29 CDT Source: [employer] Document Id: [id number] CDT!5 Octaviacellgustabo - Chelsea Saucedo R.N. - 12/29/2013 2:30 AM CDT Adult Activities of Daily Living Adult Activities of Daily Living Entered On: 12/29/2013 3:38 CDT Performed On: 12/29/2013 2:30 CDT by CHELSEA SAUCEDO ADLs I Activity Status ADL : Ambulating in room, Up ad janice Activity Assistance : Independent CHELSEA SAUCEDO - 12/29/2013 3:37 CDT ADLs II Hygiene Assistance Grid Nargis Care : Independent CHELSEA SAUCEDO - 12/29/2013 3:37 CDT Standard Safety : Bed in low position, Call device within reach, ID band check, Infant/Child security precautions, Night light, Rounds every 2 hours CHELSEA SAUCEDO - 12/29/2013 3:37 CDT Source: [employer] Document Id: [id number] CDT!8 Ramona - Chelsea Saucedo R.N. - 12/28/2013 8:00 PM CDT Adult Pain Assessment Adult Pain Assessment Entered On: 12/28/2013 20:22 CDT Performed On: 12/28/2013 20:00 CDT by CHELSEA SAUCEDO Pain Pain Assessment Grid Pain 1 Intensity : 0 Comment : Patient having no pain. Denies SOTOMAYOR, visual changes, or abdominal discomfort. 0/10, no interventions at this time. CHELSEA SAUCEDO - 12/28/2013 20:21 CDT Source: [employer] Document Id: [id number] CDT!6 Ramona - Teresa Alicia R.N. - 12/28/2013 12:14 AM CDT Adult Activities of Daily Living Adult Activities of Daily Living Entered On: 12/28/2013 0:14 CDT Performed On: 12/28/2013 0:14 CDT by TERESA ALICIA RN ADLs I Activity Status ADL : Up to chair Activity Assistance : Stand-by assistance Assistive Device : None TERESA ALICIA RN - 12/28/2013 0:14 CDT ADLs II Hygiene Assistance Grid Nargis Care : Minimum assistance TERESA ALICIA RN - 12/28/2013 0:14 CDT Standard Safety : Bed in low position, Call device within reach, ID band check, Non-Slip footwear, Rounds every 1 hour, Toilet every 2 hours, Wheels locked TERESA ALICIA RN - 12/28/2013 0:14 CDT Source: [employer] Document Id: [id number] CDT!9 Miscellaneous - Laurie Ely R.N. - 12/27/2013 7:52 PM CDT Neurovascular Assessment Lower Extremity Neurovascular Assessment Lower Extremity Entered On: 12/27/2013 19:52 CDT Performed On: 12/27/2013 19:52 CDT by LAURIE ELY RN Lower Extremity Nail Bed Color Feet Grid Left Foot : [place] Right Foot : [place] LAURIE ELY RN - 12/27/2013 19:52 CDT Capillary Refill Feet Grid Left Foot : < 2 seconds Right Foot : < 2 seconds LAURIE ELY RN - 12/27/2013 19:52 CDT NV Lower Extremity Color Grid Left : [place] Right : [place] LAURIE ELY RN - 12/27/2013 19:52 CDT NV Lower Extremity Temperature Grid Left : Warm Right : Warm LAURIE ELY RN - 12/27/2013 19:52 CDT Lower Extremity Peripheral Pulses Grid Dorsalis Pedis Pulse, Left : 2+ Normal Dorsalis Pedis Pulse, Right : 2+ Normal LAURIE ELY RN - 12/27/2013 19:52 CDT Effected Lower Extremity Pain : Controlled with medications LAURIE ELY RN - 12/27/2013 19:52 CDT [facility] [employer] Document Id: [id number] CDT!18 Miscellaneous - Ankush Hinds R.N. - 12/27/2013 6:15 PM CDT Labor & Delivery Chronology Labor & Delivery Chronology Entered On: 12/27/2013 18:18 CDT Performed On: 12/27/2013 18:15 CDT by ANKUSH HINDS RN L&D Chronology Complete Cervical Dilation Date/Time : 12/27/2013 14:30 CDT Length of Labor, 1st Stage Hrs Calc : 12.17 HR Length of Labor, 1st Stage : 730 minute(s) Length of Labor, 2nd Stage Hrs Calc : 2.48 HR Length of Labor, 2nd Stage : 149 minute(s) ANKUSH HINDS RN - 12/27/2013 18:22 CDT Labor Onset, Date/Time : 12/27/2013 2:20 CDT Total Length of Labor Hr Calc : 14.65 HR Total Length of Labor : 879 minute(s) ANKUSH HINDS RN - 12/27/2013 18:21 CDT Placenta Delivery Date/Time : 12/27/2013 17:03 CDT Length of Labor, 3rd Stage : 4 minute(s) ANKUSH HINDS RN - 12/27/2013 18:19 CDT Date/Time of Membranes Rupture : 12/26/2013 9:00 CDT Rupture of Membranes : Spontaneous Amniotic Fluid : Clear Date/Time of : 12/27/2013 16:59 CDT Membrane Rupture to Delivery Hr Calc : 31.98 HR Membrane Rupture to Delivery-Total Time : 1,919 minute(s) Placenta : Intact Premature Rupture of Membranes : No Prolonged Rupture of Membranes : Yes Precipitous Labor : No Prolonged Labor : No Type of Delivery : Vaginal delivery Vaginal Delivery Type : Normal spontaneous vaginal delivery Episiotomy : No Laceration : Yes ANKUSH HINDS RN - 12/27/2013 18:15 CDT ID Band Number : [id number] Score - 1 Minute : 8 Score - 5 Minute : 9 ANKUSH HINDS RN - 12/27/2013 18:19 CDT Multiple : No Infant Sex : Female Infant Condition : Alive Weight, Baby A : 3.178 kg(Converted to: 7 lb 0 oz) Length, Baby A : 45.7 cm(Converted to: 1 ft 6 inch(es), 17.99 inch(es)) Cord Vessels : 3 Cord Blood Gases to Lab : Yes Infant Presentation : Vertex ANKUSH HINDS RN - 12/27/2013 18:15 CDT Source: [facility] [employer] Document Id: [id number] CDT!7 Miscellaneous - Laurie Ely RGonzaloNGonzalo - 12/27/2013 11:18 AM CDT Neurovascular Assessment Lower Extremity Neurovascular Assessment Lower Extremity Entered On: 12/27/2013 11:18 CDT Performed On: 12/27/2013 11:18 CDT by LAURIE ELY RN Lower Extremity Nail Bed Color Feet Grid Left Foot : [place] Right Foot : [place] LAURIE ELY RN - 12/27/2013 11:18 CDT Capillary Refill Feet Grid Left Foot : < 2 seconds Right Foot : < 2 seconds LAURIE ELY RN - 12/27/2013 11:18 CDT NV Lower Extremity Color Grid Left : [place] Right : [place] LAURIE ELY RN - 12/27/2013 11:18 CDT NV Lower Extremity Temperature Grid Left : Warm Right : Warm LAURIE ELY RN - 12/27/2013 11:18 CDT Lower Extremity Peripheral Pulses Grid Dorsalis Pedis Pulse, Left : 2+ Normal Dorsalis Pedis Pulse, Right : 2+ Normal LAURIE ELY RN - 12/27/2013 11:18 CDT Effected Lower Extremity Pain : Controlled with medications LAURIE ELY RN - 12/27/2013 11:18 CDT Source: [employer] Document Id: [id number] CDT!18 Miscellaneous - Laurie Ely R.N. - 12/27/2013 9:15 AM CDT Neurovascular Assessment Lower Extremity Neurovascular Assessment Lower Extremity Entered On: 12/27/2013 9:16 CDT Performed On: 12/27/2013 9:15 CDT by LAURIE ELY RN Lower Extremity Nail Bed Color Feet Grid Left Foot : [place] Right Foot : [place] LAURIE ELY RN - 12/27/2013 9:15 CDT Capillary Refill Feet Grid Left Foot : < 2 seconds Right Foot : < 2 seconds LAURIE ELY RN - 12/27/2013 9:15 CDT [place] Lower Extremity Color Grid Left : [place] Right : [place] LAURIE ELY RN - 12/27/2013 9:15 CDT [place] Lower Extremity Temperature Grid Left : Warm Right : Warm LAURIE ELY RN - 12/27/2013 9:15 CDT Lower Extremity Peripheral Pulses Grid Dorsalis Pedis Pulse, Left : 2+ Normal Dorsalis Pedis Pulse, Right : 2+ Normal LAURIE ELY RN - 12/27/2013 9:15 CDT Effected Lower Extremity Pain : Controlled with medications LAURIE ELY RN - 12/27/2013 9:15 CDT [facility] Document Id: [id number] CDT!18 Miscellaneous - Teresa Alicia RGonzaloNGonzalo - 12/27/2013 6:50 AM CDT Heart Monitoring Heart Monitoring Entered On: 12/27/2013 6:51 CDT Performed On: 12/27/2013 6:50 CDT by TERESA ALICIA RN FHR, Franco/Baby A Uterine Contraction Monitoring Method : External toco Uterine Contraction Intensity, Ext Palp : Moderate Uterine Contraction Rest Tone, Ext Palp : Soft FHR Monitoring Method : Electronic monitoring FHR Monitoring Frequency : Continuous FHR Baseline : 160 Heart Rate Reactive Franco/Baby A : Yes FHR Baseline Description : Within normal limits FHR Tracing : Category 1 FHR Variability : Moderate variability Sinusoidal Franco/Baby A : No FHR Accelerations : Present FHR Deceleration : Absent TERESA ALICIA RN - 12/27/2013 6:50 CDT Source: [employer] Document Id: [id number] CDT!15 Miscellaneous - Teresa Alicia RGonzaloNGonzalo - 12/27/2013 6:30 AM CDT Heart Monitoring Heart Monitoring Entered On: 12/27/2013 6:36 CDT Performed On: 12/27/2013 6:30 CDT by TERESA ALICIA RN FHR, Franco/Baby A Uterine Contraction Monitoring Method : External toco Uterine Contraction Frequency : 2-4 Uterine Contraction Duration : 50-100 Uterine Contraction Intensity, Ext Palp : Moderate Uterine Contraction Rest Tone, Ext Palp : Soft FHR Monitoring Method : Electronic monitoring FHR Monitoring Frequency : Continuous FHR Baseline : 150 Heart Rate Reactive Franco/Baby A : Yes FHR Baseline Description : Within normal limits FHR Tracing : Category 1 FHR Variability : Moderate variability (Comment: minimal variability noted, pt turned to right side and minimal variability resolved [TERESA ALICIA RN - 12/27/2013 6:34 CDT] ) Sinusoidal Franco/Baby A : No FHR Accelerations : Present FHR Deceleration : Absent FHR Comment : pitocin increased to 9ml/hr TERESA ALICIA RN - 12/27/2013 6:34 CDT Source: [employer] Document Id: [id number] CDT!18 Miscellaneous - Teresa Alicia R.N. - 12/27/2013 6:00 AM CDT Heart Monitoring Heart Monitoring Entered On: 12/27/2013 6:03 CDT Performed On: 12/27/2013 6:00 CDT by TERESA ALICIA RN FHR, Franco/Baby A Uterine Contraction Monitoring Method : External toco Uterine Contraction Intensity, Ext Palp : Moderate Uterine Contraction Rest Tone, Ext Palp : Soft FHR Monitoring Method : Electronic monitoring FHR Monitoring Frequency : Continuous FHR Baseline : 150 Heart Rate Reactive Franco/Baby A : Yes FHR Baseline Description : Within normal limits FHR Tracing : Category 1 FHR Variability : Moderate variability FHR Accelerations : Present FHR Deceleration : Absent TERESA ALICIA RN - 12/27/2013 6:02 CDT Source: [employer] Document Id: [id number] CDT!14 Marco Antonioaneous - Teresa Alicia R.N. - 12/27/2013 5:28 AM CDT Heart Monitoring Heart Monitoring Entered On: 12/27/2013 5:28 CDT Performed On: 12/27/2013 5:28 CDT by TERESA ALICIA RN FHR, Franco/Baby A Uterine Contraction Monitoring Method : External toco Uterine Contraction Frequency : 2-3 Uterine Contraction Duration : 40-60 Uterine Contraction Intensity, Ext Palp : Moderate Uterine Contraction Rest Tone, Ext Palp : Soft FHR Monitoring Method : Electronic monitoring FHR Monitoring Frequency : Continuous FHR Baseline : 140 Heart Rate Reactive Franco/Baby A : Yes FHR Baseline Description : Within normal limits FHR Tracing : Category 1 FHR Variability : Minimal variability Sinusoidal Franco/Baby A : No FHR Accelerations : Absent FHR Deceleration : Absent TERESA ALICAI RN - 12/27/2013 5:28 CDT Source: [employer] Document Id: [id number] CDT!17 Ramona - Teresa Alicia R.N. - 12/27/2013 5:00 AM CDT Heart Monitoring Heart Monitoring Entered On: 12/27/2013 5:03 CDT Performed On: 12/27/2013 5:00 CDT by TERESA ALICIA RN FHR, Franco/Baby A Uterine Contraction Monitoring Method : External toco Uterine Contraction Frequency : 2-3 Uterine Contraction Duration : 60-100 Uterine Contraction Intensity, Ext Palp : Moderate Uterine Contraction Rest Tone, Ext Palp : Soft FHR Monitoring Method : Electronic monitoring FHR Monitoring Frequency : Continuous FHR Baseline : 145 Heart Rate Reactive Franco/Baby A : Yes FHR Baseline Description : Within normal limits FHR Tracing : Category 1 FHR Variability : Minimal variability FHR Accelerations : Absent FHR Deceleration : Absent FHR Comment : Minimal variability noted and pt turned over on to her left side. resolving minimal variability TERESA ALICIA RN - 12/27/2013 5:02 CDT Source: [employer] Document Id: [id number] CDT!17 Ramona - Teresa Alicia, R.N. - 12/27/2013 4:30 AM CDT Heart Monitoring Heart Monitoring Entered On: 12/27/2013 4:43 CDT Performed On: 12/27/2013 4:30 CDT by TERESA ALICIA RN FHR, Franco/Baby A Uterine Contraction Monitoring Method : External toco Uterine Contraction Frequency : 2-3 Uterine Contraction Duration : 50-100 Uterine Contraction Intensity, Ext Palp : Moderate Uterine Contraction Rest Tone, Ext Palp : Soft FHR Monitoring Method : Electronic monitoring FHR Monitoring Frequency : Continuous FHR Baseline : 145 Heart Rate Reactive Franco/Baby A : Yes FHR Baseline Description : Within normal limits FHR Tracing : Category 1 FHR Variability : Moderate variability Sinusoidal Franco/Baby A : No FHR Accelerations : Present FHR Deceleration : Absent TERESA ALICIA RN - 12/27/2013 4:42 CDT Source: [employer] Document Id: [id number] CDT!17 Miscellaneous - Teresa Alicia, R.N. - 12/27/2013 4:00 AM CDT Heart Monitoring Heart Monitoring Entered On: 12/27/2013 4:08 CDT Performed On: 12/27/2013 4:00 CDT by TERESA ALICIA RN FHR, Franco/Baby A Uterine Contraction Monitoring Method : External toco Uterine Contraction Frequency : 2-3 Uterine Contraction Duration : 40-60 Uterine Contraction Intensity, Ext Palp : Moderate Uterine Contraction Rest Tone, Ext Palp : Soft FHR Monitoring Method : Electronic monitoring FHR Monitoring Frequency : Continuous FHR Baseline : 140 Heart Rate Reactive Rfanco/Baby A : Yes FHR Baseline Description : Within normal limits FHR Tracing : Category 1 FHR Variability : Minimal variability Sinusoidal Franco/Baby A : No FHR Accelerations : Absent FHR Deceleration : Absent TERESA ALICIA RN - 12/27/2013 4:06 CDT Source: [employer] Document Id: [id number] CDT!17 Marco Antonioaneous - Teresa Alicia RGonzaloN. - 12/27/2013 3:30 AM CDT Heart Monitoring Heart Monitoring Entered On: 12/27/2013 3:48 CDT Performed On: 12/27/2013 3:30 CDT by TERESA ALICIA RN FHR, Franco/Baby A Uterine Contraction Monitoring Method : External toco Uterine Contraction Intensity, Ext Palp : Strong Uterine Contraction Rest Tone, Ext Palp : Soft FHR Monitoring Method : Electronic monitoring FHR Monitoring Frequency : Continuous FHR Baseline : 140 Heart Rate Reactive Franco/Baby A : Yes FHR Baseline Description : Within normal limits FHR Tracing : Category 1 FHR Variability : Moderate variability (Comment: with periods of minimal variability [TERESA ALICIA RN - 12/27/2013 3:46 CDT] ) Sinusoidal Franco/Baby A : No FHR Accelerations : Absent FHR Deceleration : Absent FHR Comment : unable to asses contractions due to pt sidelying position. toco readjusted and repositioned. TERESA ALICIA RN - 12/27/2013 3:46 CDT Source: [employer] Document Id: [id number] CDT!16 Ramona - Teresa Alicia RGonzaloN. - 12/27/2013 3:00 AM CDT Heart Monitoring Heart Monitoring Entered On: 12/27/2013 3:42 CDT Performed On: 12/27/2013 3:00 CDT by TERESA ALICIA RN FHR, Franco/Baby A Uterine Contraction Monitoring Method : External toco Uterine Contraction Intensity, Ext Palp : Strong Uterine Contraction Rest Tone, Ext Palp : Soft FHR Monitoring Method : Electronic monitoring FHR Monitoring Frequency : Continuous FHR Baseline : 140 Heart Rate Reactive Franco/Baby A : Yes FHR Baseline Description : Within normal limits FHR Tracing : Category 1 FHR Variability : Moderate variability Sinusoidal Franco/Baby A : No FHR Accelerations : Absent FHR Deceleration : Absent FHR Comment : unable to asses contractions. pt sitting upright for epidural placement TERESA ALICIA RN - 12/27/2013 3:34 CDT Source: [employer] Document Id: [id number] CDT!16 Miscellgustabo - Teresa Alicia R.N. - 12/27/2013 2:30 AM CDT Heart Monitoring Heart Monitoring Entered On: 12/27/2013 3:33 CDT Performed On: 12/27/2013 2:30 CDT by TERESA ALICIA RN FHR, Franco/Baby A Uterine Contraction Monitoring Method : External toco Uterine Contraction Frequency : 2-3 Uterine Contraction Duration : 40-70 Uterine Contraction Intensity, Ext Palp : Strong Uterine Contraction Rest Tone, Ext Palp : Soft FHR Monitoring Method : Electronic monitoring FHR Monitoring Frequency : Continuous FHR Baseline : 135 Heart Rate Reactive Franco/Baby A : Yes FHR Baseline Description : Within normal limits FHR Tracing : Category 1 FHR Variability : Moderate variability Sinusoidal Franco/Baby A : No FHR Accelerations : Absent FHR Deceleration : Absent TERESA ALICIA RN - 12/27/2013 3:32 CDT Source: [employer] Document Id: [id number] CDT!17 Miscellaneous - Teresa Alicia, R.N. - 12/27/2013 2:00 AM CDT Heart Monitoring Heart Monitoring Entered On: 12/27/2013 2:24 CDT Performed On: 12/27/2013 2:00 CDT by TERESA ALICIA RN FHR, Franco/Baby A Uterine Contraction Monitoring Method : External toco Uterine Contraction Frequency : 2-3 Uterine Contraction Duration : 40-70 Uterine Contraction Intensity, Ext Palp : Strong Uterine Contraction Rest Tone, Ext Palp : Soft FHR Monitoring Method : Electronic monitoring FHR Monitoring Frequency : Continuous FHR Baseline : 140 Heart Rate Reactive Franco/Baby A : Yes FHR Baseline Description : Within normal limits FHR Tracing : Category 1 FHR Variability : Moderate variability Sinusoidal Franco/Baby A : No FHR Accelerations : Present FHR Deceleration : Absent FHR Comment : pt verbalizing increased pain 10 out of 10 wanting something for pain. TERESA ALICIA RN - 12/27/2013 2:21 CDT Source: [employer] Document Id: [id number] CDT!18 Miscellaneous - Teresa Alicia R.NGonzalo - 12/27/2013 1:30 AM CDT Heart Monitoring Heart Monitoring Entered On: 12/27/2013 1:33 CDT Performed On: 12/27/2013 1:30 CDT by TERESA ALICIA RN FHR, Franco/Baby A Uterine Contraction Monitoring Method : External toco Uterine Contraction Frequency : 2-3 Uterine Contraction Duration : 50-70 Uterine Contraction Intensity, Ext Palp : Moderate Uterine Contraction Rest Tone, Ext Palp : Soft FHR Monitoring Method : Electronic monitoring FHR Monitoring Frequency : Continuous FHR Baseline : 150 Heart Rate Reactive Franco/Baby A : Yes FHR Baseline Description : Within normal limits FHR Tracing : Category 1 FHR Variability : Moderate variability Sinusoidal Franco/Baby A : No FHR Accelerations : Present FHR Deceleration : Absent TERESA ALICIA RN - 12/27/2013 1:32 CDT Source: [employer] Document Id: [id number] CDT!17 Miscellaneous - Teresa Alicia R.N. - 12/27/2013 1:00 AM CDT Heart Monitoring Heart Monitoring Entered On: 12/27/2013 1:07 CDT Performed On: 12/27/2013 1:00 CDT by TERESA ALICIA RN FHR, Franco/Baby A Uterine Contraction Monitoring Method : External toco Uterine Contraction Frequency : 2-3 Uterine Contraction Duration : 40-70 Uterine Contraction Intensity, Ext Palp : Moderate FHR Monitoring Method : Electronic monitoring FHR Monitoring Frequency : Continuous FHR Baseline : 150 Heart Rate Reactive Franco/Baby A : Yes FHR Tracing : Category 1 FHR Variability : Moderate variability Sinusoidal Franco/Baby A : No FHR Accelerations : Present FHR Deceleration : Absent TERESA ALICIA RN - 12/27/2013 1:06 CDT Source: [employer] Document Id: [id number] CDT!15 Ramona - Teresa Alicia R.N. - 12/27/2013 12:30 AM CDT Heart Monitoring Heart Monitoring Entered On: 12/27/2013 0:44 CDT Performed On: 12/27/2013 0:30 CDT by TERESA ALICIA RN FHR, Franco/Baby A Uterine Contraction Monitoring Method : External toco Uterine Contraction Frequency : 2-3 Uterine Contraction Duration : 50-80 Uterine Contraction Intensity, Ext Palp : Moderate Uterine Contraction Rest Tone, Ext Palp : Soft FHR Monitoring Method : Electronic monitoring FHR Monitoring Frequency : Continuous FHR Baseline : 150 Heart Rate Reactive Franco/Baby A : Yes FHR Baseline Description : Within normal limits FHR Tracing : Category 1 FHR Variability : Moderate variability Sinusoidal Franco/Baby A : No FHR Accelerations : Present FHR Deceleration : Absent FHR Comment : pitocin increased to 8ml/hr TERESA ALICIA RN - 12/27/2013 0:41 CDT Source: [employer] Document Id: [id number] CDT!18 Ramona - Teresa Alicia R.N. - 12/27/2013 12:00 AM CDT Heart Monitoring Heart Monitoring Entered On: 12/27/2013 0:10 CDT Performed On: 12/27/2013 0:00 CDT by TERESA ALICIA RN FHR, Franco/Baby A Uterine Contraction Monitoring Method : External toco Uterine Contraction Frequency : 2-3 Uterine Contraction Duration : 50-80 Uterine Contraction Intensity, Ext Palp : Moderate Uterine Contraction Rest Tone, Ext Palp : Soft FHR Monitoring Method : Electronic monitoring FHR Baseline : 150 Heart Rate Reactive Franco/Baby A : Yes FHR Baseline Description : Within normal limits FHR Tracing : Category 1 FHR Variability : Moderate variability Sinusoidal Franco/Baby A : No FHR Accelerations : Present FHR Deceleration : Absent TERESA ALICIA RN - 12/27/2013 0:08 CDT Source: [employer] Document Id: [id number] CDT!16 Ramona - Teresa Alicia R.N. - 12/26/2013 11:54 PM CDT Adult Pain Assessment Adult Pain Assessment Entered On: 12/26/2013 23:55 CDT Performed On: 12/26/2013 23:54 CDT by TERESA ALICIA RN Pain Pain Assessment Grid Pain 1 Location : Abdomen Laterality : Bilateral Intensity : 6 Time Pattern : Intermittent Onset : Gradual Quality : Aching, Cramping Alleviating Factors : Deep breathing, Rest TERESA ALICIA RN - 12/26/2013 23:54 CDT Source: [employer] Document Id: [id number] CDT!11 Ramona - Teresa Alicia R.N. - 12/26/2013 11:30 PM CDT Heart Monitoring Heart Monitoring Entered On: 12/26/2013 23:42 CDT Performed On: 12/26/2013 23:30 CDT by TERESA ALICIA RN FHR, Franco/Baby A FHR Comment : pitocin increased to 7ml/hr TERESA ALICIA RN - 12/26/2013 23:44 CDT Uterine Contraction Monitoring Method : External toco Uterine Contraction Frequency : 3-4 Uterine Contraction Duration : 50-90 Uterine Contraction Intensity, Ext Palp : Mild FHR Monitoring Method : Electronic monitoring FHR Monitoring Frequency : Continuous FHR Baseline : 135 Heart Rate Reactive Franco/Baby A : Yes FHR Baseline Description : Within normal limits FHR Tracing : Category 1 FHR Variability : Moderate variability Sinusoidal Franco/Baby A : No FHR Accelerations : Present FHR Deceleration : Absent TERESA ALICIA RN - 12/26/2013 23:41 CDT Source: [employer] Document Id: [id number] CDT!3 Ramona - Teresa Alicia R.N. - 12/26/2013 11:00 PM CDT Heart Monitoring Heart Monitoring Entered On: 12/26/2013 23:21 CDT Performed On: 12/26/2013 23:00 CDT by TERESA ALICIA RN FHR, Franco/Baby A Uterine Contraction Monitoring Method : External toco Uterine Contraction Frequency : 2-4 Uterine Contraction Duration : 40-50 Uterine Contraction Intensity, Ext Palp : Mild Uterine Contraction Rest Tone, Ext Palp : Soft FHR Monitoring Method : Electronic monitoring FHR Monitoring Frequency : Continuous FHR Baseline : 140 Heart Rate Reactive Franco/Baby A : Yes FHR Baseline Description : Within normal limits FHR Tracing : Category 1 FHR Variability : Moderate variability Sinusoidal Franco/Baby A : No FHR Accelerations : Present FHR Deceleration : Absent FHR Comment : pitocin increased to 6ml/hr TERESA ALICIA RN - 12/26/2013 23:18 CDT Source: [employer] Document Id: [id number] CDT!18 Octaviacellaneous - Teresa Alicia R.N. - 12/26/2013 10:30 PM CDT Heart Monitoring Heart Monitoring Entered On: 12/26/2013 23:17 CDT Performed On: 12/26/2013 22:30 CDT by TERESA ALICIA RN FHR, Franco/Baby A Uterine Contraction Monitoring Method : External toco Uterine Contraction Intensity, Ext Palp : Mild Uterine Contraction Rest Tone, Ext Palp : Soft FHR Monitoring Method : Electronic monitoring FHR Monitoring Frequency : Continuous FHR Baseline : 140 Heart Rate Reactive Franco/Baby A : Yes FHR Baseline Description : Within normal limits FHR Tracing : Category 1 FHR Variability : Moderate variability Sinusoidal Franco/Baby A : No FHR Accelerations : Present FHR Deceleration : Absent FHR Comment : Pt up and walking around toco readjusted unable to asses contractions. TERESA ALICIA RN - 12/26/2013 23:16 CDT Source: [employer] Document Id: [id number] CDT!16 Ramona - Teresa Alicia RGonzaloNGonzalo - 12/26/2013 10:09 PM CDT Adult Activities of Daily Living Adult Activities of Daily Living Entered On: 12/26/2013 22:09 CDT Performed On: 12/26/2013 22:09 CDT by TERESA ALICIA RN ADLs I Activity Status ADL : Ambulating in [place], Ambulating in room, Up with assistance Activity Assistance : Stand-by assistance TERESA ALICIA RN - 12/26/2013 22:09 CDT Source: [employer] Document Id: [id number] CDT!4 Octaviacellaneous - Teresa Alicia RGonzaloNGonzalo - 12/26/2013 10:00 PM CDT Heart Monitoring Heart Monitoring Entered On: 12/26/2013 22:08 CDT Performed On: 12/26/2013 22:00 CDT by TERESA ALICIA RN FHR, Franco/Baby A Uterine Contraction Monitoring Method : External toco Uterine Contraction Frequency : 3-4 Uterine Contraction Duration : 30-60 Uterine Contraction Intensity, Ext Palp : Mild Uterine Contraction Rest Tone, Ext Palp : Soft FHR Monitoring Method : Electronic monitoring FHR Monitoring Frequency : Continuous FHR Baseline : 135 Heart Rate Reactive Franco/Baby A : Yes FHR Baseline Description : Within normal limits FHR Tracing : Category 1 FHR Variability : Moderate variability Sinusoidal Franco/Baby A : No FHR Accelerations : Present FHR Deceleration : Absent TERESA ALICIA RN - 12/26/2013 22:07 CDT Source: [employer] Document Id: [id number] CDT!17 Miscellaneous - Teresa Alicia, R.N. - 12/26/2013 9:30 PM CDT Heart Monitoring Heart Monitoring Entered On: 12/26/2013 21:35 CDT Performed On: 12/26/2013 21:30 CDT by TERESA ALICIA RN FHR, Franco/Baby A Uterine Contraction Monitoring Method : External toco Uterine Contraction Frequency : 3-5 Uterine Contraction Duration : 60-80 Uterine Contraction Intensity, Ext Palp : Mild Uterine Contraction Rest Tone, Ext Palp : Soft FHR Monitoring Method : Electronic monitoring FHR Monitoring Frequency : Continuous FHR Baseline : 135 Heart Rate Reactive Franco/Baby A : Yes FHR Baseline Description : Within normal limits FHR Tracing : Category 1 FHR Variability : Moderate variability Sinusoidal Franco/Baby A : No FHR Accelerations : Present FHR Deceleration : Absent FHR Comment : pitocin increased to 4ml/hr TERESA ALICIA RN - 12/26/2013 21:33 CDT Source: [employer] Document Id: [id number] CDT!18 Miscellaneous - Teresa Alicia RGonzaloN. - 12/26/2013 9:00 PM CDT Heart Monitoring Heart Monitoring Entered On: 12/26/2013 21:08 CDT Performed On: 12/26/2013 21:00 CDT by TERESA ALICIA RN FHR, Franco/Baby A Uterine Contraction Monitoring Method : External toco Uterine Contraction Frequency : 3-4 Uterine Contraction Duration : 50-70 Uterine Contraction Intensity, Ext Palp : Mild Uterine Contraction Rest Tone, Ext Palp : Soft FHR Monitoring Method : Electronic monitoring FHR Monitoring Frequency : Continuous FHR Baseline : 140 Heart Rate Reactive Franco/Baby A : Yes FHR Baseline Description : Within normal limits FHR Tracing : Category 1 FHR Variability : Moderate variability Sinusoidal Franco/Baby A : No FHR Accelerations : Present FHR Deceleration : Absent FHR Comment : Pitocin increased to 3ml/hr TERESA ALICIA RN - 12/26/2013 21:06 CDT Source: [employer] Document Id: [id number] CDT!18 Ramona - Teresa Alicia R.N. - 12/26/2013 8:30 PM CDT Heart Monitoring Heart Monitoring Entered On: 12/26/2013 20:33 CDT Performed On: 12/26/2013 20:30 CDT by TERESA ALICIA RN FHR, Franco/Baby A Uterine Contraction Monitoring Method : External toco Uterine Contraction Frequency : 3-5 Uterine Contraction Duration : 50-60 Uterine Contraction Intensity, Ext Palp : Mild Uterine Contraction Rest Tone, Ext Palp : Soft FHR Monitoring Method : Electronic monitoring FHR Monitoring Frequency : Continuous FHR Baseline : 140 Heart Rate Reactive Franco/Baby A : Yes FHR Baseline Description : Within normal limits FHR Tracing : Category 1 FHR Variability : Moderate variability Sinusoidal Franco/Baby A : No FHR Accelerations : Present FHR Deceleration : Absent FHR Comment : Pitocin started at 2ml/hr TERESA ALICIA RN - 12/26/2013 20:32 CDT [facility] Document Id: [id number] CDT!18 Octaviacellaneous - Teresa Alicia RGonzaloNGonzalo - 12/26/2013 8:01 PM CDT Heart Monitoring Heart Monitoring Entered On: 12/26/2013 20:03 CDT Performed On: 12/26/2013 20:01 CDT by TERESA ALICIA RN FHR, Franco/Baby A Uterine Contraction Monitoring Method : External toco Uterine Contraction Frequency : 3-5 Uterine Contraction Duration : 50-70 Uterine Contraction Intensity, Ext Palp : Mild Uterine Contraction Rest Tone, Ext Palp : Soft FHR Monitoring Method : Electronic monitoring FHR Monitoring Frequency : Continuous FHR Baseline : 140 Heart Rate Reactive Franco/Baby A : Yes FHR Baseline Description : Within normal limits FHR Tracing : Category 1 FHR Variability : Moderate variability Sinusoidal Franco/Baby A : No FHR Accelerations : Present FHR Deceleration : Absent TERESA ALICIA RN - 12/26/2013 20:01 CDT Source: [employer] Document Id: [id number] CDT!17 Miscellaneous - Teresa Alicia, R.NGonzalo - 12/26/2013 7:28 PM CDT Heart Monitoring Heart Monitoring Entered On: 12/26/2013 19:29 CDT Performed On: 12/26/2013 19:28 CDT by TERESA ALICIA RN FHR, Franco/Baby A Uterine Contraction Monitoring Method : External toco Uterine Contraction Frequency : 2-5 Uterine Contraction Duration : 40-60 Uterine Contraction Intensity, Ext Palp : Mild Uterine Contraction Rest Tone, Ext Palp : Soft FHR Monitoring Method : Electronic monitoring FHR Monitoring Frequency : Continuous FHR Baseline : 135 Heart Rate Reactive Franco/Baby A : Yes FHR Baseline Description : Within normal limits FHR Tracing : Category 1 FHR Variability : Moderate variability Sinusoidal Franco/Baby A : No FHR Accelerations : Present FHR Deceleration : Absent TERESA ALICIA RN - 12/26/2013 19:28 CDT Source: [employer] Document Id: [id number] CDT!17 Miscellaneous - Lulu Richardson RGonzaloNGonzalo - 12/26/2013 7:04 PM CDT Adult Activities of Daily Living Adult Activities of Daily Living Entered On: 12/26/2013 19:05 CDT Performed On: 12/26/2013 19:04 CDT by LULU RICHARDSON RN ADLs Adult Nutrition Diet Type : Diet -- 12/26/13 15:30:00 CDT, General (Regular), Until active labor, then clear liquids Feeding Assistance : Independent Dinner : 100 % LULU RICHARDSON RN - 12/26/2013 19:04 CDT Source: [employer] Document Id: [id number] CDT!5 Octaviacellaneous - Lulu Richardson RGonzaloNGonzalo - 12/26/2013 6:45 PM CDT Heart Monitoring Heart Monitoring Entered On: 12/26/2013 19:04 CDT Performed On: 12/26/2013 18:45 CDT by LULU RICHARDSON RN FHR, Franco/Baby A Uterine Contraction Monitoring Method : External toco Uterine Contraction Frequency : 2-6 Uterine Contraction Duration : 50-80 Uterine Contraction Intensity, Ext Palp : Mild Uterine Contraction Rest Tone, Ext Palp : Soft FHR Monitoring Method : Electronic monitoring FHR Monitoring Frequency : Continuous FHR Baseline : 135 Heart Rate Reactive Franco/Baby A : Yes FHR Baseline Description : Within normal limits FHR Tracing : Category 1 FHR Variability : Moderate variability Sinusoidal Franco/Baby A : No FHR Accelerations : Present FHR Deceleration : Absent LULU RICHARDSON RN - 12/26/2013 19:00 CDT [facility] Document Id: [id number] CDT!17 Miscellaneous - Lulu Richardson RGonzaloNGonzalo - 12/26/2013 6:15 PM CDT Heart Monitoring Heart Monitoring Entered On: 12/26/2013 18:48 CDT Performed On: 12/26/2013 18:15 CDT by LULU RICHARDSON RN FHR, Franco/Baby A Uterine Contraction Monitoring Method : External toco Uterine Contraction Frequency : 2-5 Uterine Contraction Duration : 30-50 Uterine Contraction Intensity, Ext Palp : Mild Uterine Contraction Rest Tone, Ext Palp : Soft FHR Monitoring Method : Electronic monitoring FHR Monitoring Frequency : Continuous FHR Baseline : 135 Heart Rate Reactive Franco/Baby A : Yes FHR Baseline Description : Within normal limits FHR Tracing : Category 1 FHR Variability : Moderate variability Sinusoidal Franco/Baby A : No FHR Accelerations : Present FHR Deceleration : Absent LULU RICHARDSON RN - 12/26/2013 18:46 CDT Source: [employer] Document Id: [id number] CDT!17 Miscellaneous - Lulu Richardson R.N. - 12/26/2013 5:45 PM CDT Heart Monitoring Heart Monitoring Entered On: 12/26/2013 18:46 CDT Performed On: 12/26/2013 17:45 CDT by LULU RICHARDSON RN FHR, Franco/Baby A Uterine Contraction Monitoring Method : External toco Uterine Contraction Frequency : 3-4 Uterine Contraction Duration : 30-90 Uterine Contraction Intensity, Ext Palp : Mild Uterine Contraction Rest Tone, Ext Palp : Soft FHR Monitoring Method : Electronic monitoring FHR Monitoring Frequency : Continuous FHR Baseline : 135 Heart Rate Reactive Franco/Baby A : Yes FHR Baseline Description : Within normal limits FHR Tracing : Category 1 FHR Variability : Moderate variability Sinusoidal Franco/Baby A : No FHR Accelerations : Present FHR Deceleration : Absent LULU RICHARDSON RN - 12/26/2013 18:44 CDT Source: [employer] Document Id: [id number] CDT!17 Miscellaneous - Lulu Richardson R.N. - 12/26/2013 5:15 PM CDT Heart Monitoring Heart Monitoring Entered On: 12/26/2013 17:51 CDT Performed On: 12/26/2013 17:15 CDT by LULU RICHARDSON RN FHR, Franco/Baby A Uterine Contraction Monitoring Method : External toco Uterine Contraction Frequency : 3-9 Uterine Contraction Duration : 30-90 Uterine Contraction Intensity, Ext Palp : Not palpable Uterine Contraction Rest Tone, Ext Palp : Soft FHR Monitoring Method : Electronic monitoring FHR Monitoring Frequency : Continuous FHR Baseline : 135 Heart Rate Reactive Franco/Baby A : Yes FHR Baseline Description : Within normal limits FHR Tracing : Category 1 FHR Variability : Moderate variability Sinusoidal Franco/Baby A : No FHR Accelerations : Present FHR Deceleration : Absent LULU RICHARDSON RN - 12/26/2013 17:43 CDT Source: [employer] Document Id: [id number] CDT!17 Octaviacellaneous - Lulu Richardson, R.N. - 12/26/2013 4:45 PM CDT Heart Monitoring Heart Monitoring Entered On: 12/26/2013 17:43 CDT Performed On: 12/26/2013 16:45 CDT by LULU RICHARDSON RN FHR, Franco/Baby A Uterine Contraction Monitoring Method : External toco Uterine Contraction Frequency : 3-8 Uterine Contraction Duration : 30-50 Uterine Contraction Intensity, Ext Palp : Mild Uterine Contraction Rest Tone, Ext Palp : Soft FHR Monitoring Method : Electronic monitoring FHR Monitoring Frequency : Continuous FHR Baseline : 135 Heart Rate Reactive Franco/Baby A : Yes FHR Baseline Description : Within normal limits FHR Tracing : Category 1 FHR Variability : Moderate variability Sinusoidal Franco/Baby A : No FHR Accelerations : Present FHR Deceleration : Absent LULU RICHARDSON RN - 12/26/2013 17:40 CDT Source: [facility] [employer] Document Id: [id number] CDT!17 Ramona - Lulu Richardson R.N. - 12/26/2013 4:37 PM CDT Basic Admission Information Document Has Been Updated Basic Admission Information Entered On: 12/26/2013 16:37 CDT Performed On: 12/26/2013 16:37 CDT by LULU RICHARDSON RN Vital Signs Height : 170 cm(Converted to: 5 ft 7 inch(es)) LULU RICHARDSON RN - 12/26/2013 16:37 CDT Allergy Rule (As Of: 12/26/2013 16:37:35 CDT) Allergies (Active) Suprax Estimated Onset Date: <not entered> 06/01/2013 ; Reactions: Unknown ; Comments: Comment1: Unknown reaction as a child ; Created By: CARLEE MADRID MD; Reaction Status: Active ; Category: Drug ; Substance: Suprax ; Type: Allergy ; Updated By: CARLEE MADRID MD; Source: Paper Chart/Abstracting ; Reviewed Date: 12/26/2013 16:35 CDT Source: [facility] [employer] Document Id: [id number] CDT!3 Ramona - Lulu Richardson RGonzaloNGonzalo - 12/26/2013 4:15 PM CDT Heart Monitoring Heart Monitoring Entered On: 12/26/2013 16:57 CDT Performed On: 12/26/2013 16:15 CDT by LULU RICHARDSON RN FHR, Franco/Baby A Uterine Contraction Monitoring Method : External toco Uterine Contraction Frequency : 2-6 Uterine Contraction Duration : 30-90 Uterine Contraction Intensity, Ext Palp : Mild Uterine Contraction Rest Tone, Ext Palp : Soft FHR Monitoring Method : Electronic monitoring FHR Monitoring Frequency : Continuous FHR Baseline : 135 Heart Rate Reactive Franco/Baby A : Yes FHR Baseline Description : Within normal limits FHR Tracing : Category 1 FHR Variability : Moderate variability Sinusoidal Franco/Baby A : No FHR Accelerations : Present FHR Deceleration : Absent LULU RICHARDSON RN - 12/26/2013 16:55 CDT Source: [employer] Document Id: [id number] CDT!17 Miscellaneous - Lulu Richardson, R.N. - 12/26/2013 3:45 PM CDT Heart Monitoring Heart Monitoring Entered On: 12/26/2013 16:55 CDT Performed On: 12/26/2013 15:45 CDT by LULU RICHARDSON RN FHR, Franco/Baby A Uterine Contraction Monitoring Method : External toco Uterine Contraction Frequency : 2-5 Uterine Contraction Duration : 30-50 Uterine Contraction Intensity, Ext Palp : Mild Uterine Contraction Rest Tone, Ext Palp : Soft FHR Monitoring Method : Electronic monitoring FHR Monitoring Frequency : Continuous FHR Baseline : 135 Heart Rate Reactive Franco/Baby A : Yes FHR Baseline Description : Within normal limits FHR Tracing : Category 1 FHR Variability : Moderate variability Sinusoidal Franco/Baby A : No FHR Accelerations : Present FHR Deceleration : Absent LULU RICHARDSON RN - 12/26/2013 16:53 CDT Source: [employer] Document Id: [id number] CDT!17 documented in this encounter Plan of Treatment Not on filedocumented as of this encounter Procedures Procedure Name Priority Date/Time Associated Comments Diagnosis AUTOMATED Routine 12/28/2013 7:50 AM Results f or this DIFFERENTIAL, B CDT procedure ar e in the results section. CBC WITH DIFFERENTIAL, Routine 12/28/2013 7:50 AM Results for this B CDT procedure are i n the results section. COMPREHENSIVE Routine 12/28/2013 7:50 AM Results for this METABOLIC PANEL, S/P CDT procedu re are in the results section. CBC WITHOUT Routine 12/27/2013 7:53 PM Results f or this DIFFERENTIAL, B CDT procedure ar e in the results section. COMPREHENSIVE Routine 12/27/2013 7:53 PM Results for this METABOLIC PANEL, S/P CDT procedu re are in the results section. PROTEIN/CREATININE Routine 12/26/2013 6:35 PM Res ults for this RATIO, RANDOM, URINE CDT procedu re are in the results section. ABO/RH RETYPE Routine 12/26/2013 3:41 PM Results for this CDT procedure are i n the results section. ABSC GEL Routine 12/26/2013 3:40 PM Results f or this CDT procedure are i n the results section. AUTOMATED Routine 12/26/2013 3:40 PM Results f or this DIFFERENTIAL, B CDT procedure ar e in the results section. ABORH, RBC Routine 12/26/2013 3:40 PM Results f or this CDT procedure are i n the results section. CBC WITH DIFFERENTIAL, Routine 12/26/2013 3:40 PM Results for this B CDT procedure are i n the results section. COMPREHENSIVE Routine 12/26/2013 3:40 PM Results for this METABOLIC PANEL, S/P CDT procedu re are in the results section. documented in this encounter Results (ABNORMAL) Automated Differential (12/28/2013 7:50 AM CDT) [facility] Method Time Signature Absolute 12.86 (H) 1.70 - POWERCHART Neutrophils 7.00 109L Monocytes 0.78 0.30 - POWERCHART 0.90 X109L Eosinophils 0.13 0.05 - POWERCHART 0.50 X109L Absolute 0.03 0.00 - POWERCHART Basophil 0.30 X109L Lymphocytes 2.04 0.90 - POWERCHART 2.90 X109L Specimen Anatomical Collection Method Collection Time Receive d Time (Source) Location / / Volume Laterality Blood 12/28/2013 7:50 AM 4 7:50 CDT AM CDT Bridget Harrington M.D. LAB BLOOD ADD-ON Performing Organization Address City/State/ZIP Code Phon e Number POWERCHART (ABNORMAL) CBC with Differential (12/28/2013 7:50 AM CDT) Analysis Performed At Patho logist Time Signature Hematocrit 34.4 (L) 34.9 - POWERCHART 44.5 Hemoglobin 11.7 (L) 12.0 - POWERCHART 15.5 GDL MCV 91.0 82.0 - POWERCHART 98.0 FL Platelet Count 195 150 - 450 POWERCHART X109L Erythrocytes 3.78 (L) 3.90 - POWERCHART 5.03 [id number] HX RDW 12.8 11.9 - POWERCHART 15.5 Leukocytes 15.8 (H) 3.5 - 10.5 POWERCHART X109L Specimen (Source) Anatomical Collection Method Collection Time Re ceived Time Location / / Volume Laterality Blood 12/28/2013 7:50 AM CDT Bridget Harrington M.D. LAB BLOOD ADD-ON Performing Organization Address City/State/ZIP Code Phon e Number POWERCHART (ABNORMAL) CMP (Comprehensive Metabolic Panel) (12/28/2013 7:50 AM CDT) Patholo gist Method Time Signature Anion Gap 8 (L) 10 - 20 POWERCHART MMOLL Alkaline 131 52 - 144 POWERCHART Phosphatase, S UL Alanine 15 7 - 45 UL POWERCHART Amniotransferase, LD Aspartate 24 8 - 43 UL POWERCHART Aminotransferase (AST), S Bilirubin, Total, S 0.2 0.1 - 1.0 POWERCHART MGDL BUN (Blood Urea 5 (L) 6 - 21 POWERCHART Nitrogen), S MGDL CO2 Total 25 22 - 29 POWERCHART MMOLL Creatinine 0.66 0.60 - POWERCHART 1.10 MGDL Total Protein, S 5.9 (L) 6.3 - 7.9 POWERCHART GDL Glucose 77 70 - 140 POWERCHART MGDL Calcium, Total, S 8.2 (L) 8.6 - POWERCHART 10.3 MGDL Albumin, S 2.6 (L) 3.5 - 5.0 POWERCHART GDL Chloride, S 103 98 - 107 POWERCHART MMOLL Sodium, S 137 135 - 145 POWERCHART MMOLL Potassium, S 3.7 3.6 - 5.2 POWERCHART MMOLL eGFR Black/ >60 >=60 POWERCHART [place] [id number] 2 HXeGFR (MDRD) >60 >=60 POWERCHART [id number] 2 Comment: Results are in mL/min/1.73m CKD Stage I: ? GFR > 90 CKD Stage II: ?GFR 60 to 89 CKD Stage III: ? GFR 30 to 59 CKD Stage IV: ? GFR 15 to 29 CKD Stage V: ?GFR < 15 or Dialysi s Specimen (Source) Anatomical Collection Method Collection Time Re ceived Time Location / / Volume Laterality Blood 12/28/2013 7:50 AM CDT Bridget Harrington M.D. LAB BLOOD ADD-ON Performing Organization Address City/State/ZIP Code Phon e Number POWERCHART (ABNORMAL) CBC without Differential (12/27/2013 7:53 PM CDT) Analysis Performed At [facility] logist Time Signature Hematocrit 34.4 (L) 34.9 - POWERCHART 44.5 Hemoglobin 12.0 12.0 - POWERCHART 15.5 GDL MCV 90.3 82.0 - POWERCHART 98.0 FL Platelet Count 215 150 - 450 POWERCHART X109L Erythrocytes 3.81 (L) 3.90 - POWERCHART 5.03 [id number] HX RDW 12.7 11.9 - POWERCHART 15.5 Leukocytes 22.4 (H) 3.5 - 10.5 POWERCHART X109L Comment: in labor Specimen (Source) Anatomical Collection Method Collection Time Re ceived Time Location / / Volume Laterality Blood 12/27/2013 7:53 PM CDT Bridget Harrington M.D. LAB BLOOD ADD-ON Performing Organization Address City/State/ZIP Code Phon e Number POWERCHART (ABNORMAL) CMP (Comprehensive Metabolic Panel) (12/27/2013 7:53 PM CDT) Patholo gist Method Time Signature Anion Gap 14 10 - 20 POWERCHART MMOLL Alkaline 131 52 - 144 POWERCHART Phosphatase, S UL Alanine 14 7 - 45 UL POWERCHART Amniotransferase, LD Aspartate 24 8 - 43 UL POWERCHART Aminotransferase (AST), S Bilirubin, Total, S 0.3 0.1 - 1.0 POWERCHART MGDL BUN (Blood Urea 6 6 - 21 POWERCHART Nitrogen), S MGDL Chloride, S 101 98 - 107 POWERCHART MMOLL CO2 Total 19 (L) 22 - 29 POWERCHART MMOLL Creatinine 0.74 0.60 - POWERCHART 1.10 MGDL Total Protein, S 5.6 (L) 6.3 - 7.9 POWERCHART GDL Glucose 123 70 - 140 POWERCHART MGDL Calcium, Total, S 8.6 8.6 - POWERCHART 10.3 MGDL Sodium, S 134 (L) 135 - 145 POWERCHART MMOLL Potassium, S 3.5 (L) 3.6 - 5.2 POWERCHART MMOLL Albumin, S 2.8 (L) 3.5 - 5.0 POWERCHART GDL eGFR Black/ >60 >=60 POWERCHART [place] [id number] 2 HXeGFR (MDRD) >60 >=60 POWERCHART [id number] 2 Comment: Results are in mL/min/1.73m CKD Stage I: ? GFR > 90 CKD Stage II: ?GFR 60 to 89 CKD Stage III: ? GFR 30 to 59 CKD Stage IV: ? GFR 15 to 29 CKD Stage V: ?GFR < 15 or Dialysi s Specimen (Source) Anatomical Collection Method Collection Time Re ceived Time Location / / Volume Laterality Blood 12/27/2013 7:53 PM CDT Bridget Harrington M.D. LAB BLOOD ADD-ON Performing Organization Address City/[facility]/ZIP Code Phon e Number POWERCHART Protein, Total, Random, Urine (12/26/2013 6:35 PM CDT) P athologist Signature Protein, U 12 MGDL POWERCHART Specimen (Source) Anatomical Collection Method Collection Time Re ceived Time Location / / Volume Laterality Urine 12/26/2013 6:35 PM CDT Carlee Madrid M.D. LAB URINE ORDERABLES Performing Organization Address City/[facility]/ZIP Code Phon e Number POWERCHART ABO/RH RETYPE (12/26/2013 3:41 PM CDT) P athologist Signature HX ABO/Rh A POS POWERCHART Retype Comment: 12/27/2013 12:25 [id number] A [place] draw for an ABO/Rh retype is not required for this patient's clinical situation/co ndition. ABO/Rh retype was performed by retesting the same sample or by testing a second current sample. Specimen (Source) Anatomical Collection Method Collection Time Re ceived Time Location / / Volume Laterality 12/26/2013 3:41 PM CDT Carlee Madrid M.D. LAB BLOOD BANK TEST ORDERABL ES Performing Organization Address City/State/ZIP Code Phon e Number POWERCHART (ABNORMAL) Automated Differential (12/26/2013 3:40 PM CDT) Patholo gist Method Time Signature Absolute 9.40 (H) 1.70 - POWERCHART Neutrophils 7.00 109L Monocytes 0.72 0.30 - POWERCHART 0.90 X109L Eosinophils 0.11 0.05 - POWERCHART 0.50 X109L Absolute 0.02 0.00 - POWERCHART Basophil 0.30 X109L Lymphocytes 2.12 0.90 - POWERCHART 2.90 X109L Specimen Anatomical Collection Method Collection Time Receive d Time (Source) Location / / Volume Laterality Blood 12/26/2013 3:40 PM 4 3:40 CDT PM CDT Carlee Madrid M.D. LAB BLOOD ADD-ON Performing Organization Address City/State/[facility] Code Phon e Number POWERCHART (ABNORMAL) CBC with Differential (12/26/2013 3:40 PM CDT) Analysis Performed At Patho logist Time Signature Hematocrit 37.1 34.9 - POWERCHART 44.5 Hemoglobin 12.8 12.0 - POWERCHART 15.5 GDL MCV 90.7 82.0 - POWERCHART 98.0 FL Platelet Count 256 150 - 450 POWERCHART X109L Erythrocytes 4.09 3.90 - POWERCHART 5.03 [id number] HX RDW 12.8 11.9 - POWERCHART 15.5 Leukocytes 12.4 (H) 3.5 - 10.5 POWERCHART X109L Specimen (Source) Anatomical Collection Method Collection Time Re ceived Time Location / / Volume Laterality Blood 12/26/2013 3:40 PM CDT Carlee Madrid M.D. LAB BLOOD ADD-ON Performing Organization Address City/State/ZIP Code Phon e Number POWERCHART (ABNORMAL) CMP (Comprehensive Metabolic Panel) (12/26/2013 3:40 PM CDT) [facility] Method Time Signature Chloride, S 100 98 - 107 POWERCHART MMOLL Sodium, S 134 (L) 135 - 145 POWERCHART MMOLL Potassium, S 3.8 3.6 - 5.2 POWERCHART MMOLL Anion Gap 13 10 - 20 POWERCHART MMOLL Alkaline 142 52 - 144 POWERCHART Phosphatase, S UL Alanine 13 7 - 45 UL POWERCHART Amniotransferase, LD Aspartate 18 8 - 43 UL POWERCHART Aminotransferase (AST), S Bilirubin, Total, S 0.2 0.1 - 1.0 POWERCHART MGDL BUN (Blood Urea 7 6 - 21 POWERCHART Nitrogen), S MGDL CO2 Total 21 (L) 22 - 29 POWERCHART MMOLL Creatinine 0.59 (L) 0.60 - POWERCHART 1.10 MGDL Total Protein, S 6.4 6.3 - 7.9 POWERCHART GDL Glucose 87 70 - 140 POWERCHART MGDL Calcium, Total, S 9.2 8.6 - POWERCHART 10.3 MGDL Albumin, S 3.0 (L) 3.5 - 5.0 POWERCHART GDL eGFR Black/ >60 >=60 POWERCHART [place] [id number] 2 HXeGFR (MDRD) >60 >=60 POWERCHART [id number] 2 Comment: Results are in mL/min/1.73m CKD Stage I: ? GFR > 90 CKD Stage II: ?GFR 60 to 89 CKD Stage III: ? GFR 30 to 59 CKD Stage IV: ? GFR 15 to 29 CKD Stage V: ?GFR < 15 or Dialysi s Specimen (Source) Anatomical Collection Method Collection Time Re ceived Time Location / / Volume Laterality Blood 12/26/2013 3:40 PM CDT Carlee Madrid M.D. LAB BLOOD ADD-ON Performing Organization Address City/State/ZIP Code Phon e Number POWERCHART ABSC GEL (12/26/2013 3:40 PM CDT) [facility] Method Time Signature HX ABSC Gel Negative ABSC POWERCHART Specimen (Source) Anatomical Collection Method Collection Time Re ceived Time Location / / Volume Laterality 12/26/2013 3:40 PM CDT Carlee Madrid M.D. LAB HISTORICAL ORDERS Performing Organization Address City/[facility]/ZIP Code Phon e Number POWERCHART ABO/Rh (12/26/2013 3:40 PM CDT) P athologist Signature ABORh Interp A POS POWERCHART Specimen (Source) Anatomical Collection Method Collection Time Re ceived Time Location / / Volume Laterality 12/26/2013 3:40 PM CDT Carlee Madrid M.D. LAB BLOOD BANK TEST ORDERABL ES Performing Organization Address City/[facility]/ZIP Code Phon e Number POWERCHART documented in this encounter Visit Diagnoses Not on filedocumented in this encounter
--- OUTSIDE RECORDS SUMMARY | 2022-04-07 13:18 | XMS_ITS | Encounter Summary ---
:1995 Author Organization [facility] Address [address] [place] [id number] Care Team Providers Name Role Phone Unavailable Primary Care Provider Unavailable Encounter Details Date Type Department Care Team Description 05/01/2014 Hospital Encounter HX [facility] Maureen Lua A PRN, [place] [phone] (Wo rk) Social History Tobacco Use [...] 10/23/2020 relatives? How often do you attend restoration or mu-ism Never 10/23/2020 services? Do you belong to any clubs or organizations such as No 12/04/2019 restoration groups, unions, fraternal or athletic groups, or [...] at Date Recorded Female 08/12/2017 10:51 AM [employer] documented as of this encounter Last Filed Vital Signs Vital Sign Reading Time Taken Comments Blood Pressure - - Pulse - - Temperature - - Respiratory Rate - - Oxygen Saturation - - Inhaled Oxygen Concentration - - Weight - - Height 164 cm (5' 4.57) 05/01/2014 1:28 PM CDT Body Mass Index - - [...] daily. tablet documented as of this encounter Procedure Notes Joy Johnson L.P.N. - 05/01/2014 1:56 PM CDT PPD Reading PPD Reading Entered On: 05/01/2014 13:57 CDT Performed On: 05/01/2014 13:56 CDT by JOY JOHNSON LPN PPD Reading MM of Induration : 0 mm PPD Interpretation : Negative PPD Placed On : Right inner forearm PPD Date/Time Administered : 04/29/2014 11:30 CDT JOY JOHNSON LPN - 05/01/2014 13:56 CDT [facility] Document Id: [id number] CDT!6 Joy Johnson L.P.N. - 05/01/2014 1:50 PM CDT Depo-Provera Administration Depo-Provera Administration Entered On: 05/01/2014 13:50 CDT Performed On: 05/01/2014 13:50 CDT by JOY JOHNSON LPN Depo-Provera Administration Return appointment : 07/31/2014 [employer] JOY JOHNSON LPN - 05/01/2014 13:50 CDT Source: [facility] POWER[employer]ART Document Id: [id number] CDT!3 documented in this encounter Plan of Treatment Not on filedocumented as of this encounter Procedures Procedure Name Priority Date/Time Associated Diagnosis Comme nts HX TB SKIN TEST-LAB Routine 05/01/2014 1:56 PM Re sults for this CDT procedure are i n the results section. documented in this encounter Results HX TB SKIN TEST-LAB (05/01/2014 1:56 PM CDT) P athologist Signature TB Skin Test 0 MM POWERCHART TB Skin Test Negative POWERCHART Specimen (Source) Anatomical Collection Method Collection Time Re ceived Time Location / / Volume Laterality 05/01/2014 1:56 PM CDT Aleida Mejia M.D. LAB HISTORICAL ORDERS Performing Organization Address City/State/ZIP Code Phon e Number POWERCHART documented in this encounter Visit Diagnoses Not on filedocumented in this encounter
--- OUTSIDE RECORDS SUMMARY | 2022-04-07 13:18 | XMS_ITS | Encounter Summary ---
:1995 Author Organization [facility] Address [address] [place] [address] Care Team Providers Name Role Phone Unavailable Primary Care Provider Unavailable Encounter Details Date Type Department Care Team Description 11/04/2014 Hospital Encounter HX [facility] Karlie Mark M.D. [address] [place], [place] [address] (Wo rk) Social History [...] How often do you attend scientologist or hinduism Never 10/23/2020 services? 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 She said that she has been very depressed. States that she was depressed even before her and had mild depression during the . She delivered her baby december 27, 2013, but after that her symptoms have been getting worse. She was crying in the office. She said that she cannot sleep. Might get 4 hours of sleep. She has full support of her parents and she lives with them. She sort of broke up with her boyfriend who is not around. Says that I amover this relationship but probably not. When she saw provider here 2 times in April of 2014 shedid not mention anything about the depression then. She even thought about committing suicide but felt that she cannot do it because she has got a baby to take care of. SYSTEMS REVIEW Otherwise completely negative. PAST MEDICAL/SURGICAL HISTORY She has got bronchial asthma in control with Advair Diskus. She is not breast feeding, and she has got a contraceptive, Depo-Provera. PHYSICAL EXAMINATION VITAL SIGNS: The temperature is 36.6, heart rate 95, respirations 18, blood pressure 126/68. Oxygen saturation on room air 98%. Her height is 164 cm, actual weight 94.4. Body mass index 35.1. She does smoke some. GENERAL: Normocephalic, except that she is tired and weepy. HEENT: Eyes are normal. Nose clear. Tongue moist. Throat clear. NECK: Supple. Neck veins are not engorged. Thyroid is not enlarged and there is no lymphadenopathy. BREASTS: Not checked. HEART: Not enlarged. Clinically, both heart sounds heard clearly and there are no murmurs. LUNGS: Clear to percussion and auscultation. ABDOMEN: Soft, nontender. Liver, spleen, kidneys are not palpable. EXTREMITIES: Negative. NEUROLOGIC: Brief neuro negative. IMPRESSION/REPORT/PLAN Depression. I still feel that this is reactive due to separation from her boyfriend. Fortunately sheis living with her parents and they are very supportive and her daughter is doing very well. She should do treadmill exercise at least 3 or 4 times a week, for 30 minutes. Can do yoga. Avoid any alcohol at this time. Drink more fluids. Sometimes she does get lightheaded. Continue her asthma medications. I persuaded her to take trazodone 50 mg at bedtime daily, prescribed only 20 pills with norefills. Also Zoloft 50 mg. She will take 1 tablet at bedtime daily, prescribed 20 with no refills. I do plan to see her in about 2 weeks' time. Patient agreed to come back. At that time, she will geta larger prescription. At that time, I think I will also refer her to a psychiatrist unless she really improves. Then I might increase the dose of the Zoloft to 100 mg. I explained the reason for giving only 20 tablets of each. Ramirez Olmedo M.D./antonia Electronically Signed By: RAMIREZ OLMEDO MD On: 11/07/2014 08:59 AM Source: [facility] MHSDOLBEYNONRADSYS Document Id: [id number] documented in this encounter Miscellaneous Notes Miscellaneous - Mellisa Mac R.N. - 11/06/2014 9:40 AM CDT Normal Results Letter 06 November 2014 DHIRAJ LANDA [address] [address] [facility] [id number] Dear DHIRAJ LANDA, I am pleased to report that your results from the following diagnostic test(s) are normal including your blood counts, liver and kidney tests. Please follow up with us as we discussed during your visitor sooner if you have any concerns. If you have questions or concerns, please do not hesitate to call our office. Dr. Olmedo Result Name Current Result Previous Result Normal Range TSH (mIU/L) 1.15 11/04/2014 1.73 10/24/2013 0.27 - 4.20 Sodium Lvl (mM/L) 138.9 11/04/2014 137 12/28/2013 135.0 - 145.0 Potassium Lvl (mmol/L) 3.6 11/04/2014 3.7 12/28/2013 3.6 - 4.8 Chloride (mmol/L) 105 11/04/2014 103 12/28/2013 98 - 107 CO2 (mmol/L) 24.0 11/04/2014 25 12/28/2013 23.0 - 29.0 AGAP (mmol/L) 14 11/04/2014 8 12/28/2013 10 - 20 Alkaline Phosphatase (U/L) 116 11/04/2014 131 12/28/2013 52 - 144 Glucose Lvl (mg/dL) 96 11/04/2014 77 12/28/2013 70 - 139 Creatinine (mg/dL) 0.69 11/04/2014 0.66 12/28/2013 0.60 - 1.30 EGFR (MDRD) (mL/min/1.73m2) >60 11/04/2014 >60 12/28/2013 >=60 - EGFR (MDRD) (mL/min/1.73m2) >60 11/04/2014 >60 12/28/2013 >=60 - BUN (mg/dL) 6 11/04/2014 5 12/28/2013 7 - 18 Calcium Lvl (mg/dL) 9.3 11/04/2014 8.2 12/28/2013 8.6 - 10.0 Protein Total (g/dL) 7.1 11/04/2014 5.9 12/28/2013 6.3 - 7.9 Albumin Lvl (g/dL) 4.2 11/04/2014 2.6 12/28/2013 3.5 - 5.0 AST (unit/L) 15 11/04/2014 24 12/28/2013 8 - 43 ALT (unit/L) 19 11/04/2014 15 12/28/2013 7 - 45 Bili Total (mg/dL) 0.3 11/04/2014 0.2 12/28/2013 0.1 - 1.0 108Hgb (g/dL) 13.0 11/04/2014 11.7 12/28/2013 12.0 - 15.5 Hct (%) 39.1 11/04/2014 34.4 12/28/2013 34.9 - 44.5 WBC (x10(9)/L) 6.3 11/04/2014 15.8 12/28/2013 3.4 - 10.5 RBC (x10(12)/L) 4.68 11/04/2014 3.78 12/28/2013 3.90 - 5.03 MCV (fL) 83.5 11/04/2014 91.0 12/28/2013 82.0 - 98.0 RDW (%) 12.9 11/04/2014 12.8 12/28/2013 11.9 - 15.5 Platelet (x10(9)/L) 263 11/04/2014 195 12/28/2013 150 - 450 Neutro Absolute (10(9)/L) 3.57 11/04/2014 12.86 12/28/2013 1.70 - 7.00 Lymph Absolute (x10(9)/L) 2.21 11/04/2014 2.04 12/28/2013 0.90 - 2.90 [place] Absolute (x10(9)/L) 0.39 11/04/2014 0.78 12/28/2013 0.30 - 0.90 Eos Absolute (x10(9)/L) 0.10 11/04/2014 0.13 12/28/2013 0.05 - 0.50 Baso Absolute (x10(9)/L) 0.02 11/04/2014 0.03 12/28/2013 0.00 - 0.30 Differential? Auto 11/04/2014 Sincerely, LAUREN CASILLAS Electronic Signature Electronically Signed By: LAUREN CASILLAS RN On: 06 November 2014 This document has images extracted. Source: [facility] POWERCHART Document Id: [id number] Electronically signed by Conversion, [facility] Medical Claims Processor [id number] at 01/10/2017 11:35 AM CDT Miscellaneous - Teresa Parkinson, L.P.N. 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 Intake/History Entered On: 11/04/2014 15:42 CDT Performed On: 11/04/2014 15:39 CDT by TERESA PARKINSON LPN Intake Chief Complaint : Depression Temperature Core : 36.6 DegC(Converted to: 97.9 DegF) Limb Alert : Left Peripheral Pulse Rate : 95 /min Respiratory Rate : 18 /min Heart Rhythm : Regular Systolic Blood Pressure : 126 mmHg Diastolic Blood Pressure : 68 mmHg NIBP Mean : 87 mmHg BP Location : Left upper extremity Blood Pressure Cuff Size : Large SpO2 : 98 % Oxygen Therapy : Room air Height : 164 cm(Converted to: 5 ft 5 inch(es), 65 inch(es)) Actual Weight : 94.4 kg(Converted to: 208 lb 2 oz) Weight Source : Standing scale Dosing Weight Clinic : 94.4 kg Clinic BSA : 2.07 Body Mass Index : 35.1 kg/m2 [facility]SON [facility] - 11/04/2014 15:39 CDT General Info Languages : Faroese Is Patient Female and 13-50 no hysterectomy : Yes Status : Patient denies Are you ? : No PARKINSONTERESA VOGT [facility] - 11/04/2014 15:39 CDT Subjective Pain Symptoms : No TERESA PARKINSON [facility] - 11/04/2014 15:39 CDT Dependent Habits Tobacco Use/Currently Using : Yes Exposure to Tobacco Smoke : Care provider denies smoking in home, Other: former smoker Smoking Status : Light tobacco smoker TERESA PARKINSON [facility] - 11/04/2014 15:39 CDT Tobacco Use Grid Last Use : never TERESA PARKINSON [facility] - 11/04/2014 15:39 CDT Alcohol Use : No TERESA PARKINSON [facility] 11/04/2014 15:39 CDT Caffeine Use Grid Caffeine Use : Current Type : Soft drinks Frequency : Occasionally TERESA PARKINSON [facility] - 11/04/2014 15:39 CDT Recreational Drug Use Grid Drug Use : None TERESA PARKINSON [facility] 11/04/2014 15:39 CDT ID Screen Drug Resistant Organism : No Travel Within Last 21 Days : No Contact with someone with Ebola : No TERESA PARKINSON [facility] - 11/04/2014 15:39 CDT Source: [employer] Document Id: [id number] CDT!48 documented in this encounter Plan of Treatment Not on filedocumented as of this encounter Procedures Procedure Name Priority Date/Time Associated Comments Diagnosis AUTOMATED Routine 11/04/2014 4:48 PM Results f or this DIFFERENTIAL, B CDT procedure ar e in the results section. CBC WITH DIFFERENTIAL, Routine 11/04/2014 4:48 PM Results for this B CDT procedure are i n the results section. COMPREHENSIVE Routine 11/04/2014 4:48 PM Results for this METABOLIC PANEL, S/P CDT procedu re are in the results section. THYROID-STIMULATING Routine 11/04/2014 4:48 PM Re sults for this HORMONE-SENSITIVE CDT procedure are in (S-TSH) the results section. documented in this encounter Results Automated Differential (11/04/2014 4:48 PM CDT) athologist Signature Absolute 3.57 1.70 - POWERCHART Neutrophils 7.00 109L Lymphocytes 2.21 0.90 - POWERCHART 2.90 X109L Monocytes 0.39 0.30 - POWERCHART 0.90 X109L Eosinophils 0.10 0.05 - POWERCHART 0.50 X109L Absolute 0.02 0.00 - POWERCHART Basophil 0.30 X109L Specimen Anatomical Collection Method Collection Time Receive d Time (Source) Location / / Volume Laterality Blood 11/04/2014 4:48 PM 5 4:48 CDT PM CDT Ramirez Olmedo M.D. LAB BLOOD ADD-ON Performing Organization Address City/[facility] Phon e Number POWERCHART CBC with Differential (11/04/2014 4:48 PM CDT) athologist Signature Leukocytes 6.3 3.4 - 10.5 POWERCHART X109L Erythrocytes 4.68 3.90 - POWERCHART 5.03 [id number] Hemoglobin 13.0 12.0 - POWERCHART 15.5 GDL Hematocrit 39.1 34.9 - POWERCHART 44.5 MCV 83.5 82.0 - POWERCHART 98.0 FL HX RDW 12.9 11.9 - POWERCHART 15.5 Platelet Count 263 150 - 450 POWERCHART X109L HXDifferential? Auto POWERCHART Specimen (Source) Anatomical Collection Method Collection Time Re ceived Time Location / / Volume Laterality Blood 11/04/2014 4:48 PM CDT Ramirez Olmedo M.D. LAB BLOOD ADD-ON Performing Organization Address City/[facility] Phon e Number POWERCHART (ABNORMAL) CMP (Comprehensive Metabolic Panel) (11/04/2014 4:48 PM CDT) [facility] Method Time Signature Anion Gap 14 10 - 20 POWERCHART MMOLL Alkaline 116 52 - 144 POWERCHART Phosphatase, S UL Alanine 19 7 - 45 POWERCHART Amniotransferase, LD UNITL Aspartate 15 8 - 43 POWERCHART Aminotransferase UNITL (AST), S Bilirubin, Total, S 0.3 0.1 - 1.0 POWERCHART MGDL BUN (Blood Urea 6 (L) 7 - 18 POWERCHART Nitrogen), S MGDL Chloride, S 105 98 - 107 POWERCHART MMOLL CO2 Total 24.0 23.0 - POWERCHART 29.0 MMOLL Creatinine 0.69 0.60 - POWERCHART 1.30 MGDL Total Protein, S 7.1 6.3 - 7.9 POWERCHART GDL Glucose 96 70 - 139 POWERCHART MGDL Calcium, Total, S 9.3 8.6 - POWERCHART 10.0 MGDL Sodium, S 138.9 135.0 - POWERCHART 145.0 MML Potassium, S 3.6 3.6 - 4.8 POWERCHART MMOLL Albumin, S 4.2 3.5 - 5.0 POWERCHART GDL HXeGFR (MDRD) >60 >=60 POWERCHART [id number] 2 eGFR Black/ >60 >=60 POWERCHART [place] [id number] 2 Specimen (Source) Anatomical Collection Method Collection Time Re ceived Time Location / / Volume Laterality Blood 11/04/2014 4:48 PM CDT Ramirez Olmedo M.D. LAB BLOOD ADD-ON Performing Organization Address City/State/ZIP Code Phon e Number POWERCHART Thyroid-Stimulating Hormone-Sensitive (s-TSH) (11/04/2014 4:48 PM CDT) P athologist Signature TSH 1.15 0.27 - 4.20 POWERCHART (Thyrotropin) MIUL Specimen (Source) Anatomical Collection Method Collection Time Re ceived Time Location / / Volume Laterality Blood 11/04/2014 4:48 PM CDT Ramirez Olmedo M.D. LAB BLOOD ADD-ON Performing Organization Address City/State/ZIP Code Phon e Number POWERCHART documented in this encounter Visit Diagnoses Not on filedocumented in this encounter
--- OUTSIDE RECORDS SUMMARY | 2022-04-07 13:18 | XMS_ITS | Encounter Summary ---
:1995 Author Organization [facility] Address [address] [place] [address] Care Team Providers Name Role Phone Unavailable Primary Care Provider Unavailable Encounter Details Date Type Department Care Team Description 02/08/2014 Hospital Encounter HX [facility] Law Lua A PRN, [place] [phone] (Wo rk) Social History Tobacco Use [...] How often do you attend religion or gnosticist Never 10/23/2020 services? 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 - 02/08/2014 11:05 AM CDT 6 wk pp exam This patient is here for a 6-week checkup. She had a vaginal delivery of a viable girl weight 7 pounds 0 oz., with HTN complications. Since delivery, she has been breast feeding. She has no signs of infection, bleeding or other complications. She is not . We discussed contraception and she has chosen depo provera injections for contraceptive method. EXAM: HEENT: grossly normal. NECK: no lymphadenopathy or thyroidomegaly. LUNGS: CTA X 2, no rales or crackles. BACK: No spinal or CVA tenderness. HEART: RRR without murmurs clicks or gallops. ABDOMEN: soft, non tender, good bowel sounds, without masses rebound, guarding or tenderness. PELVIC: External genitalia: normal without lesion, repair well healed. Vagina: normal mucosa and rugae, no discharge. Cervix: multiparous, well healed, without lesion. Uterus: non in size, firm , mobile, no lesions. Adnexa: non tender, without masses, EXTREMITIES: Warm to touch, good pulses, no ankle edema or calf tenderness. NEUROLOGIC: grossly normal. ASSESSMENT: Normal 6-week exam after vaginal delivery PLAN: Depo Provera injections for contraception. Is interested in the contraceptive patch when she is no longer . Electronically Signed By: LAW SINGER RESEARCH INVESTIGATOR On: 02/08/2014 11:07 AM Source: [employer] Document Id: [id number] documented in this encounter Procedure Notes Nena Ocampo L.P.N. - 02/08/2014 11:09 AM CDT Depo-Provera Administration Depo-Provera Administration Entered On: 02/08/2014 11:09 CDT Performed On: 02/08/2014 11:09 CDT by NENA OCAMPO LPN Depo-Provera Administration Annual Exam in the Past 12 Months : Yes Last Depo-Provera Given : 02/08/2014 CDT Return appointment : 05/10/2014 CDT NENA OCAMPO LPN - 02/08/2014 11:09 CDT Source: [facility] Hex[employer]ite Document Id: [id number] CDT!5 documented in this encounter Miscellaneous Notes Telephone Encounter - Vinnie Thrasher R.N. - 02/13/2014 9:54 AM CDT *Phone Message From: VINNIE THRASHER RN ( Obstetrics/Gynecology Nurse Line) Sent: 02/13/2014 09:54:14 CDT Subject: *Phone Message Caller is: ( x ) Patient ( ) Mother ( ) Father ( ) Spouse ( ) Daughter ( ) Son ( ) Pharmacy ( ) Other: Physician: Patient MRN #: Reason for Call: contraception question Message: Pt. had her first Depo shot on February 08. States that she had intercourse and the condombroke and is sondering about back up, questioning if she should do Plan B. Advice/Action: Did advise pt. that there should be a back up method in place for at least a week after first injection of Depo, therefore pt. will do Plan B for back up method. Source used: Spoke with Law Singer NP about timing and back up methods. Advised pt. to use plan B. ( x ) Verbalizes understanding of instructions ( ) [...] back cell phone number ( ) Source: [facility] POWERCHART Document Id: [id number] Electronically signed by [facility] Communications Director [id number] at 01/11/2017 12:41 AM CDT Miscellaneous - Law Singer, R.N. - 02/08/2014 10:49 AM CDT Ambulatory Patient Summary [facility] [address], [address] [place], [place] [id number] Visit Information Name: GORDOSTEPHDHIRAJ WRIGHT PAWEL [facility] Number: [id number] Current Date: 02/08/2014 10:49:45 Physicians Attending Provider: LAW SINGER RESEARCH INVESTIGATOR Primary Care Provider: PCP, UNASSIGNED - DHIRAJ LANDA has been given the following [...] nasal (Flonase 0.05 mg/inh nasal spray) 2 Wellington(s), Nasal, two times a day fluticasone-salmeterol (Advair Diskus 250 mcg-50 mcg inhalation powder) 1 puff(s), Inhalation, two times a day multivitamin, ( Multivitamins) See Instructions 1 tab daily Stop Taking the Following Medications: Medication list as of 02-08-14 10:49 Attention: If you have any medications at home that are not on this list, DO NOT take them until youcontact your provider for clarification. Give a copy of your medication list to your primary care provider. Update your medication list any time medications or doses are changed and carry your medication list at all times in case of emergency. Electronically Signed By: LAW SINGER RESEARCH INVESTIGATOR Signed On:08-FEB-2014 10:49:35 Your Allergies & Intolerances Substance Reaction Symptoms [...] Active Your Upcoming Appointments Date Time Location Reason Provider No Appointments found Attention: Contact your local Clinic if further appointment detail needed. Your Goals/Additional instructions: Source: [facility] POWERCHART Document Id: [id number] Miscellaneous - Law Singer, R.N. - 02/08/2014 10:49 AM CDT Ambulatory Discharge Medication List [facility] [address], [address] [place], [place] [phone] Visit Information Name: DHIRAJ LANDA [facility] Number: [id number] Visit Date: 02/08/2014 10:49:43 Attending Provider: LAW SINGER RESEARCH INVESTIGATOR Primary Care Provider: PCP, UNASSIGNED - RW [...] nasal (Flonase 0.05 mg/inh nasal spray) 2 Wellington(s), Nasal, two times a day fluticasone-salmeterol (Advair Diskus 250 mcg-50 mcg inhalation powder) 1 puff(s), Inhalation, two times a day multivitamin, ( Multivitamins) See Instructions 1 tab daily Stop Taking the Following Medications: Medication list as of 02-08-14 10:49 Attention: If you have any medications at home that are not on this list, DO NOT take them until youcontact your provider for clarification. Give a copy of your medication list to your primary care provider. Update your medication list any time medications or doses are changed and carry your medication list at all times in case of emergency. Electronically Signed By: LAW SINGER RESEARCH INVESTIGATOR Signed On:08-FEB-2014 10:49:35 Additional Information: Source: [facility] POWERCHART Document Id: [id number] Miscellaneous - Nena Ocampo L.P.N. 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 No concerns at this time. LMP Date : N/A Limb Alert : Left Heart Rhythm : Regular Systolic Blood Pressure : 96 mmHg Diastolic Blood Pressure : 64 mmHg NIBP Mean : 75 mmHg BP Location : Left upper extremity Blood Pressure Cuff Size : Regular Height : 170 cm(Converted to: 5 ft 7 inch(es), 67 inch(es)) Actual Weight : 84.1 kg(Converted to: 185 lb 7 oz) Weight Source : Standing scale Dosing Weight Clinic : 84.1 kg Clinic BSA : 1.99 Body Mass Index : 29.1 kg/m2 NENA OCAMPO LPN - 02/08/2014 10:24 CDT General Info Information Given By : Patient Languages : Polish NENA OCAMPO [facility] - 02/08/2014 10:24 CDT Subjective Pain Symptoms : No NENA OCAMPO LPN - 02/08/2014 10:24 CDT Dependent Habits Tobacco Use/Currently Using : No Exposure to Tobacco Smoke : Care provider denies smoking in home, Other: former smoker Smoking Status : Former smoker NENA OCAMPO LPN - 02/08/2014 10:24 CDT Tobacco Use Grid Last Use : never NENA OCAMPO LPN - 02/08/2014 10:24 CDT Alcohol Use : No NENA OCAMPO LPN - 02/08/2014 10:24 CDT Caffeine Use Grid Caffeine Use : Current Type : Soft drinks Frequency : Occasionally NENA OCAMPO LPN - 02/08/2014 10:24 CDT Recreational Drug Use Grid Drug Use : None NENA OCAMPO LPN - 02/08/2014 10:24 CDT Source: [facility] [employer] Document Id: [id number] CDT!38 documented in this encounter Plan of Treatment Not on filedocumented as of this encounter Visit Diagnoses Not on filedocumented in this encounter
--- OUTSIDE RECORDS SUMMARY | 2022-04-07 13:18 | XMS_ITS | Encounter Summary ---
:1995 Author Organization [facility] Address [address] [place] [address] Care Team Providers Name Role Phone Unavailable Primary Care Provider Unavailable Encounter Details Date Type Department Care Team Description 10/28/2014 Hospital Encounter HX [facility] Iva Sam, SHAYE N, C.N.P. [address] [place], [place] [phone] (Wo rk) Social History [...] How often do you attend mormonism or tenriism Never 10/23/2020 services? 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 - 10/28/2014 3:59 PM CDT Depo-Provera Administration Depo-Provera Administration Entered On: 10/28/2014 16:02 CDT Performed On: 10/28/2014 15:59 CDT by NENA OCAMPO LPN Depo-Provera Administration Annual Exam in the Past 12 Months : Yes Return appointment : 01/27/2015 CDT Depo-Provera Administration Comments : Lot: [id number] Expires: 05/2017 NENA OCAMPO LPN - 10/28/2014 15:59 CDT Source: [facility] [employer]CHART Document Id: [id number] CDT!5 documented in this encounter Plan of Treatment Not on filedocumented as of this encounter Visit Diagnoses Not on filedocumented in this encounter
--- OUTSIDE RECORDS SUMMARY | 2022-04-07 13:18 | XMS_ITS | Encounter Summary ---
:1995 Author Organization [facility] Address [address] [place] [address] Care Team Providers Name Role Phone Unavailable Primary Care Provider Unavailable Encounter Details Date Type Department Care Team Description 10/20/2015 Hospital Encounter HX [facility] Kimberley Brown M.D. [address], [place] [address] (Wo rk) Social History Tobacco Use Types [...] How often do you attend mormon or roman catholic Never 10/23/2020 services? 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 - 10/20/2015 10:21 AM CST [id number] CHIEF COMPLAINT/REASON FOR VISIT Dyspnea. HISTORY OF PRESENT ILLNESS This is a 20-year-old woman who presents with 2 nights of nonproductive cough associated with dyspnea, worse with exertion. She feels chest tightness. She has had a small amount of nasal congestion andrhinorrhea. She has not had sore throat, myalgias or fatigue. She did feel some chills and sweats yesterday but has not felt feverish and has not had a fever. She had a similar episode 3 or 4 weeks agoand was put on antibiotics. SOCIAL HISTORY She smoked a pack per week for 3 years but quit in 2013. 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 PAST MEDICAL/SURGICAL HISTORY Moderate persistent asthma. No other chronic illnesses. No hospitalizations or surgeries apart from delivery. ALLERGIES Suprax. SYSTEMS REVIEW Negative for weight change, or change in appetite. No nausea, vomiting, abdominal pain, diarrhea, orconstipation. She does feel chest tightness but no pain. She has had no palpitations or lightheadedness. No pedal edema. No rash. Intermittent ear symptoms of fullness or pressure. PHYSICAL EXAMINATION VITAL SIGNS: Temp is 37, heart rate 98 and regular, respirations 18, blood pressure 115/71, O2 sat is 96% on ambient air. GENERAL: She does appear to be mildly dyspneic after walking back from x-ray. At rest she does not appear to be dyspneic. She does not appear to be in pain. She is appropriately dressed and groomed andcooperative with examination and interview. HEENT: Pupils are equally round, reactive to light and accommodation. Extraocular movements are intact. The conjunctivae are pink and not inflamed. Tympanic membranes are not inflamed. The left TM has a small amount of clear fluid behind it. The auditory canals are normal. There is bilateral anterior c ervical adenopathy that is minimally tender to palpation. Symmetric, mobile and small. Oropharynx shows moist mucous membranes with no enanthem. No petechiae. The tonsils are not enlarged. LUNGS: Initially crackles in the right lower lung field. After an albuterol neb these resolved. After the neb she was clear to auscultation bilaterally except at the end of a forced expiration there would be wheezes in all lung mills. CARDIAC: S1, S2, normal variation of heart rate with respirations, no murmur. EXTREMITIES: No edema. There is no cyanosis and cap refill is brisk in the fingers. DIAGNOSTICS Chest x-ray is negative. Peak flows before and after an albuterol neb 400 and 380 respectively. However, after the neb the patient felt much better and there was no dyspnea with activity. IMPRESSION/REPORT/PLAN 1. Asthma exacerbation. 2. Rhinitis. PLAN: Prednisone 40 mg daily x5 days. Stay home from work tomorrow, call or follow up if she develops temperature of 101 or greater, worsening dyspnea, or productive cough. Follow-up in 3-4 weeks afterthis episode has improved in order to develop a more comprehensive asthma plan. Radha Polanco M.D./antonia Electronically Signed By: RADHA POLANCO MD On: 10/22/2015 04:54 PM Modified by and Electronically Signed by: RADHA POLANCO MD On: 10/22/2015 04:54 PM Source: [facility] MHSDOLBEYNONRADSYS Document Id: [id number] X CONSULTANT documented in this encounter Procedure Notes Jeanette Dennison, L.P.N. - 10/20/2015 11:17 AM CST Peak Flow POC Peak Flow POC Entered On: 10/20/2015 11:17 LINUX CONSULTANT Performed On: 10/20/2015 11:17 LINUX CONSULTANT by JEANETTE DENNISON Peak Flow POC Peak Flow Post-treatment POC #1 : 380 L/sec Treatment Delivery Device : Nebulizer JEANETTE DENNISON - 10/20/2015 11:32 LINUX CONSULTANT Peak Flow POC Initial : 350 L/sec Peak Flow POC #2 : 400 L/sec Peak Flow POC #3 : 360 L/sec Patient Effort Peak Flow POC : Fair JEANETTE DENNISON - 10/20/2015 11:17 LINUX CONSULTANT Source: [facility] POWERCHART Document Id: [id number] LINUX CONSULTANT!8 X CONSULTANT documented in this encounter Miscellaneous Notes Miscellaneous - Radha Polanco M.D. - 10/20/2015 11:34 AM CST Work Excuse October 20, 2015 CARLY LANDA [id number] [facility] [address] Dear CARLY LANDA, You were examined in my office on: October 20, 2015 Reason for work excuse: Medical Illness ( xx ) Yes ( _ ) No Injury ( _ ) Yes ( xx ) No Is excused from all work: ( xx ) Yes ( _ ) No Has work limitations: ( _ ) Yes ( _ ) No As follows: _ Limitations apply until: October 21, 2015 Follow-Up Appointment : ( as needed ) Return to Work date: October 21, 2015 Notes: _ Sincerely, RADHA POLANCO [address] [place] [address] Electronic Signature Electronically Signed By: RADHA POLANCO MD On: October 20, 2015 This document has images extracted. Source: [facility] POWERCHART Document Id: [id number] Electronically signed by Conversion, [facility] Statistical Methods Professor [id number] at 01/08/2017 5:40 PM CDT Miscellaneous - Jennifer Medellin, L.P.N. 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 Intake/History Entered On: 10/20/2015 10:40 LINUX CONSULTANT Performed On: 10/20/2015 10:34 LINUX CONSULTANT by JENNIFER MEDELLIN LPN Intake Chief Complaint : URI using inhalor a lot Onset of Symptoms : 2 days Temperature Core : 37.0 DegC(Converted to: 98.6 DegF) Peripheral Pulse Rate : 98 /min Respiratory Rate : 18 /min Heart Rhythm : Regular Systolic Blood Pressure : 115 mmHg Diastolic Blood Pressure : 71 mmHg NIBP Mean : 86 mmHg BP Location : Left upper extremity Blood Pressure Cuff Size : Regular SpO2 : 96 % Oxygen Therapy : Room air Height : 164 cm(Converted to: 5 ft 5 inch(es), 65 inch(es)) Weight Source : Other: JENNIFER Melara LPN - 10/20/2015 10:34 LINUX CONSULTANT General Info Information Given By : Patient Languages : Mauritanian Is Patient Female and 13-50 no hysterectomy : Yes Status : Patient denies Are you ? : No JENNIFER MEDELLIN TOBACCO CUTTER - 10/20/2015 10:34 LINUX CONSULTANT Subjective Pain Symptoms : No JENNIFER MEDELLIN LPN - 10/20/2015 10:34 LINUX CONSULTANT Dependent Habits Exposure to Tobacco Smoke : Care provider denies smoking in home, Other: former smoker Smoking Status : Former smoker Tobacco 2A : Yes Tobacco Use/Currently Using : No Tobacco Use/Last 30 Days : No Tobacco Use/Last 12 months : No JENNIFER MEDELLIN LPN - 10/20/2015 10:34 LINUX CONSULTANT Caffeine Use Grid Caffeine Use : Current Type : Soft drinks Frequency : Occasionally JENNIFER MEDELLIN LPN - 10/20/2015 10:34 LINUX CONSULTANT Recreational Drug Use Grid Drug Use : None JENNIFER MEDELLIN TOBACCO CUTTER - 10/20/2015 10:34 LINUX CONSULTANT Source: [facility] POWERCHART Document Id: [id number] LINUX CONSULTANT!40 X CONSULTANT documented in this encounter Plan of Treatment Not on filedocumented as of this encounter Visit Diagnoses Not on filedocumented in this encounter
--- OUTSIDE RECORDS SUMMARY | 2022-04-07 13:19 | XMS_ITS | Encounter Summary ---
:1995 Author Organization [facility] Address [address] [place] [address] Care Team Providers Name Role Phone Unavailable Primary Care Provider Unavailable Encounter Details Date Type Department Care Team Description 06/01/2013 Hospital Encounter HX [facility] OBGYN Provider, Histor ical Social History Tobacco Use Types Packs/Day Years [...] How often do you attend protestant or zoroastrianism Never 10/23/2020 services? 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 documented as of this encounter Progress Notes Conversion, Historical Provider Ser - 06/01/2013 9:00 AM CDT [id number] MICA SPREADER ER Follow up Carly presents for evaluation after being seen in ER last night. Uncertain of LMP, knows it was some time in March. Had spotting in April but not a period. Took test on Tuesday (5 days ago, which was positive). Yesterday developed pelvic cramping that worsened through the evening. Was e valuated in ER with UA and ultrasound. UA normal. Pt reports that they did not see anything on theultrasound. Pt denies any other symptoms at this time other than mild nausea. Denies any pain, bleeding, fever, diarrhea/constipation. Cramping has resolved. Denies any significant history other than asthma, which is well controlled on advair and singulair. She takes a vitamin. This is her first . BP 118/84 Wt 73.8 kg (162 lb 11.2 oz) LMP 03/24/2013 Gen: alert, oriented, comfortable and pleasant UA results reviewed. Ultrasound report unavailable. Assessment/Plan: 18yo G1 at unknown gestation with cramping that has resolved. Reassurance provided.Will further evaluate with quantitative hcg. Plan to repeat in 3 days. Will determine whento repeat ultrasound based on results. Reviewed strict precautions to call with heavy bleeding or development of pelvic pain. Pt verbalizes understanding. Vianey Ceja MD Source: [facility] Document Id: [id number] documented in this encounter Plan of Treatment Not on filedocumented as of this encounter Procedures Procedure Name Priority Date/Time Associated Comments Diagnosis HUMAN CHORIONIC Routine 06/01/2013 12:26 Results for this GONADOTROPIN (HCG), PM CDT procedur e are in IRASEMA, the results section. documented in this encounter Results hCG (Human Chorionic Gonadotropin), Quantitative, (06/01/2013 12:26 PM CDT) P athologist Signature Beta-HCG, [id number] [facility] [employer] S LAB Specimen (Source) Anatomical Collection Method Collection Time Re ceived Time Location / / Volume Laterality 06/01/2013 12:26 PM CDT Narrative [facility] - 10/12/19 14 11:11 PM DIRT SHOVELER Non- ?0 - 5 , weeks from LMP: 1 - 10 weeks ? 64 - 151,000 IU/L 11 - 15 weeks 11,800 - 152,000 IU/L 16 - 22 weeks ??9,380 - 61,400 IU/L 23 - 40 weeks ??1,740 - 98,600 IU/L Specimen run with a dilution Historical Provider LAB BLOOD ADD-ON Performing Organization Address City/State/ZIP Code Phon e Number [facility] documented in this encounter Visit Diagnoses Not on filedocumented in this encounter
--- OUTSIDE RECORDS SUMMARY | 2022-04-07 13:19 | XMS_ITS | Encounter Summary ---
:1995 Author Organization [facility] Address [address] [place] [address] Care Team Providers Name Role Phone Unavailable Primary Care Provider Unavailable Encounter Details Date Type Department Care Team Description 08/29/2013 Hospital Encounter HX [facility] XRAY Provider, Histori hernandez Social History Tobacco Use Types Packs/Day Years [...] 10/23/2020 relatives? How often do you attend catholic or gnosticism Never 10/23/2020 services? 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
--- OUTSIDE RECORDS SUMMARY | 2022-04-07 13:19 | XMS_ITS | Encounter Summary ---
:1995 Author Organization [facility] Address [address] [place] [address] Care Team Providers Name Role Phone Unavailable Primary Care Provider Unavailable Encounter Details Date Type Department Care Team Description 10/24/2013 Hospital Encounter HX NO MAPPING Iva Guerrero APRN, C.N.P. [address] [place], [place] [phone] (Wo rk) Social History [...] 10/23/2020 relatives? How often do you attend quaker or hindu Never 10/23/2020 services? 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 tablet prenat.vits,hernandze,min-iron- Take 1 tablet by 0 01/201402/19/2019 folic ( VITAMIN) mouth daily. tablet documented as of this encounter Plan of Treatment Not on filedocumented as of this encounter Visit Diagnoses Not on filedocumented in this encounter
--- OUTSIDE RECORDS SUMMARY | 2022-04-07 13:19 | XMS_ITS | Encounter Summary ---
:1995 Author Organization [facility] Address [address] [place] [address] Care Team Providers Name Role Phone Unavailable Primary Care Provider Unavailable Encounter Details Date Type Department Care Team Description 10/24/2013 Hospital Encounter HX NO MAPPING Iva Guerrero APRN, C.N.P. [address] [place], [place] [phone] (Wo rk) Social History [...] How often do you attend judaism or scientology Never 10/23/2020 services? 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
--- OUTSIDE RECORDS SUMMARY | 2022-04-07 13:19 | XMS_ITS | Encounter Summary ---
:1995 Author Organization [facility] Address [address] [place] [address] Care Team Providers Name Role Phone Unavailable Primary Care Provider Unavailable Encounter Details Date Type Department Care Team Description 10/24/[address] [facility] Iva Sam, SHAYE N, C.N.P. [address] [place], [place] [phone] (Wo rk) Social History [...] How often do you attend episcopal or gnosticism Never 10/23/2020 services? 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 prenat.vits,hernandez,min-iron- Take 1 tablet by 0 01/201410/06/2017 folic ( VITAMIN) mouth. tablet prenat.vits,hernandez,min-iron- Take 1 tablet by 0 01/201402/19/2019 folic ( VITAMIN) mouth daily. tablet documented as of this encounter Progress Notes Iva Guerrero C.N.P., R.N. - 10/24/2013 2:05 PM CDT [id number] Quick Note: notified Source: [facility] Document Id: [id number] Electronically signed by Conversion, [facility] Account Manager Education [id number] at 01/09/2017 4:48 PM CDT Conversion, Historical Provider Ser - 10/24/2013 2:05 PM CDT [id number] No concerns at this time. Source: [facility] Document Id: [id number] Iva Guerrero C.N.P., R.N. - 10/24/2013 2:05 PM CDT [id number] Feels palpitations off and on. 1-2 times weekly: does not have SOB or CP associated with this. NOtedthis at the beginning of , resolve, now started again a few weeks ago. Will check TSH and CMP. If worsening or increasing to see FP. Labs normal today. Tdap today. TANISHA CBE:discussed 28 Week OB Visit -- Understands/performs the following: Normal uterine & growth: Yes Definition of pre-term labor: Yes Warning signs of PTL & what to do: Yes Self palpation for uterine contractions: Yes Prevent or treat constipation (increase fluids & fiber): Yes Decrease strenuous activity (increase rest): Yes Travel recommendations: Yes Consider work activity/hazards, environmental hazards: Yes Consider sexual activity/intercourse: Yes Stress & management: Yes Warning signs of complications: Yes Discontinue smoking, alcohol, drug use: Yes Avoid nipple stimulation (for breast fdg. delay to >37 wks.): Not Asked Nutrition choices (review intake & risks): Yes feeding plans: Yes Inverted nipple Rx: Not Asked Understands risks & benefits of 24-36 wk labs: Yes activity count: Yes Chilbirth classes / class: Yes Weight gain: Yes Next MD appt.: Yes Car Seat Safety: Yes Source: [facility] Document Id: [id number] Electronically signed by Conversion, [facility] Account Manager Education [id number] at 01/09/2017 4:48 PM CDT documented in this encounter Plan of Treatment Not on filedocumented as of this encounter Visit Diagnoses Not on filedocumented in this encounter
--- OUTSIDE RECORDS SUMMARY | 2022-04-07 13:19 | XMS_ITS | Encounter Summary ---
:1995 Author Organization [facility] Address [address] [place] [address] Care Team Providers Name Role Phone Unavailable Primary Care Provider Unavailable Encounter Details Date Type Department Care Team Description 12/18/2013 Hospital Encounter HX [facility] Iva Sam, SHAYE N, C.N.P. [address] [place], [place] [phone] (Wo rk) Social History [...] 10/23/2020 relatives? How often do you attend congregation or cheondoism Never 10/23/2020 services? 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 tablet documented as of this encounter Nursing Notes Iva Guerrero C.NAmina., R.N. - 12/18/2013 3:58 PM CDT Ambulatory Patient Education The following Patient Education Materials have been given to the patient: Patient Education Materials: Source: [facility] POWERCHART Document Id: [id number] documented in this encounter Miscellaneous Notes Miscellaneous - Iva Guerrero C.N.P., R.N. - 12/20/2013 9:22 AM CDT Results Notification Document Contains Addenda Addendum by ANA KEYES LPN on 21 Dec 2013 16:07:01 CDT seen and notified at office visit today Addendum by JOY JOHNSON LPN on 20 Dec 2013 09:27:59 CDT left generic message for pt to call back. From: IVA GUERRERO TEAM CDL DRIVER Sent: 12/20/2013 09:22:16 CDT ! Show up: 12/20/2013 09:22:16 CDT Subject: Results Notification Actions: Notify patient of results Reminder Comments: please notify of positive results. Results: Date Result Type Ind Result Name MBO POS Strep B by PCR Source: [facility] POWERCHART Document Id: [id number] Electronically signed by Conversion, [facility] Data Warehouse Manager [id number] at 01/11/2017 4:24 AM CDT Miscellaneous - Ana Dhillon L.P.N. - 12/18/2013 3:32 PM CDT Adult Litharge Supervisor Intake/History Adult Litharge Supervisor Intake/History Entered On: 12/18/2013 15:33 CDT Performed On: 12/18/2013 15:32 CDT by AAN KEYES LPN Intake Chief Complaint : ob check-c/o swellingin hands and feet-36 week info given LMP Date : 05/29/2013 Systolic Blood Pressure : 118 mmHg Diastolic Blood Pressure : 72 mmHg NIBP Mean : 87 mmHg Actual Weight : 95.2 kg(Converted to: 209 lb 14 oz) Dosing Weight Clinic : 95.2 kg ANA KEYES LPN - 12/18/2013 15:32 CDT General Info Information Given By : Patient Languages : Algerian ANA KEYES LPN - 12/18/2013 15:32 CDT Subjective Pain Symptoms : No ANA KEYES LPN - 12/18/2013 15:32 CDT Dependent Habits Tobacco Use/Currently Using : No Exposure to Tobacco Smoke : Care provider denies smoking in home, Other: former smoker Smoking Status : Former smoker ANA KEYES LPN - 12/18/2013 15:32 CDT Tobacco Use Grid Last Use : never ANA KEYES ZEB - 12/18/2013 15:32 CDT Caffeine Use Grid Caffeine Use : Current Type : Soft drinks Frequency : Occasionally ANA KEYES WORK FROM HOME - 12/18/2013 15:32 CDT Recreational Drug Use Grid Drug Use : None ANA KEYES WORK FROM HOME - 12/18/2013 15:32 CDT Source: [facility] POWERCHART Document Id: [id number] CDT!29 documented in this encounter Plan of Treatment Not on filedocumented as of this encounter Procedures Procedure Name Priority Date/Time Associated Diagnosis Comme nts HXSTREP GROUP B BY Routine 12/18/2013 4:00 PM Res ults for this PCR CDT procedure are i n the results section. documented in this encounter Results (ABNORMAL) HXSTREP GROUP B BY PCR (12/18/2013 4:00 PM CDT) [facility] gist Method Time Signature HXStrep Group (POSITIVE) POWERCHART B by PCR HXFinal Positive for POWERCHART Group B Strep by PCR. Specimen (Source) Anatomical Collection Method Collection Time Re ceived Time Location / / Volume Laterality Vaginal/Rectum 12/18/2013 4:00 PM CDT Iva Guerrero APRN, C.N.P. LAB HISTORICAL ORDERS Performing Organization Address City/State/ZIP Code Phon e Number POWERCHART documented in this encounter Visit Diagnoses Not on filedocumented in this encounter
--- OUTSIDE RECORDS SUMMARY | 2022-04-07 13:19 | XMS_ITS | Encounter Summary ---
:1995 Author Organization [facility] Address [address] [place] [address] Care Team Providers Name Role Phone Unavailable Primary Care Provider Unavailable Encounter Details Date Type Department Care Team Description 06/04/2013 Hospital Encounter [facility]X [facility] XRAY Provider, Histori hernandez Social History [...] often do you attend latter day or episcopalian Never 10/23/2020 services? 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 documented as of this encounter Plan of Treatment Not on filedocumented as of this encounter Visit Diagnoses Not on filedocumented in this encounter
--- OUTSIDE RECORDS SUMMARY | 2022-04-07 13:19 | XMS_ITS | Encounter Summary ---
:1995 Author Organization [facility] Address [address] [place] [address] Care Team Providers Name Role Phone Unavailable Primary Care Provider Unavailable Encounter Details Date Type Department Care Team Description 07/02/2013 Hospital Encounter HX [facility] Bridget Saldaña M.D. Social History Tobacco Use Types Packs/Day [...] How often do you attend anglican or spiritism Never 10/23/2020 services? 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 BR Source[facility] Document Id: [id number] Bridget Harrington M.D. - 07/02/2013 2:30 PM CST [id number] Discussed quad/CF, SMA and fragile X testing. Pt undecided will discuss with insurance. Source: [facility] Document Id: [id number] Electronically signed by Conversion, [facility] Civil Geotechnical Engineer [id number] at 01/10/2017 9:11 PM CDT documented in this encounter Plan of Treatment Not on filedocumented as of this encounter Visit Diagnoses Not on filedocumented in this encounter
--- OUTSIDE RECORDS SUMMARY | 2022-04-07 13:19 | XMS_ITS | Encounter Summary ---
:1995 Author Organization [facility] Address [address] [place] [address] Care Team Providers Name Role Phone Unavailable Primary Care Provider Unavailable Encounter Details Date Type Department Care Team Description 09/26/2013 Hospital Encounter HX [facility] Bridget Saldaña M.D. Social History Tobacco Use [...] 10/23/2020 relatives? How often do you attend confucianist or hinduism Never 10/23/2020 services? 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 - 09/26/2013 3:00 PM CST [id number] No vaginal bleeding or leaking of fluid. No concerns. TLM Source: [facility] Document Id: [id number] Electronically signed by Conversion, [facility] Recoverer [id number] at 01/09/2017 3:26 PM CDT Bridget Harrington M.D. - 09/26/2013 3:00 PM CST [id number] Gct/cbc today. F/up scan next visit. C/o constipation, fiber, exercise, colace prn. Source: [facility] Document Id: [id number] Electronically signed by Conversion, [facility] Recoverer [id number] at 01/09/2017 3:26 PM CDT documented in this encounter Miscellaneous Notes Miscellaneous - Bridget Harrington M.D. - 09/26/2013 3:00 PM CST [id number] Carly Joseph [id number] [address] [facility] [address] September 27, 2013 Dear Ms. Blastervold: I am writing to inform you the results of the laboratory tests you had done during your recent visitto the clinic. Your results included : your glucose and cbc were both normal. It was a pleasure to see you in the clinic. If you have any further questions or problems, please contact our office at [phone]. Sincerely, Dr Bridget Harrington MD Dept. CLINICAL PSYCHIATRIST [facility] [place] Source: [facility] RWHXTRANSXRTFSYS Document Id: [id number] Electronically signed by Conversion, [facility] Recoverer [id number] at 01/09/2017 3:26 PM CDT documented in this encounter Plan of Treatment Not on filedocumented as of this encounter Procedures Procedure Name Priority Date/Time Associated Diagnosis Comme nts GLUC ROBIN/GLUCOSE Routine 09/26/2013 5:02 PM Resul ts for this RENOVATION PLANT SUPERVISOR procedure are i n the results section. documented in this encounter Results Gluc Robin/Glucose (09/26/2013 5:02 PM RENOVATION PLANT SUPERVISOR) P athologist Signature HXGluc 1 Hr 91 MGDL [facility] Specimen (Source) Anatomical Collection Method Collection Time Re ceived Time Location / / Volume Laterality 09/26/2013 5:02 PM RENOVATION PLANT SUPERVISOR Historical Provider LAB BLOOD ADD-ON Performing Organization Address City/State/ZIP Code Phon e Number [facility] documented in this encounter Visit Diagnoses Not on filedocumented in this encounter
--- OUTSIDE RECORDS SUMMARY | 2022-04-07 13:19 | XMS_ITS | Encounter Summary ---
:1995 Author Organization [facility] Address [address] [place] [address] Care Team Providers Name Role Phone Unavailable Primary Care Provider Unavailable Encounter Details Date Type Department Care Team Description 06/04/2013 Hospital Encounter HX NO MAPPING Iva Guerrero APRN, C.N.P. [address] [place], [place] [phone] (Wo rk) Social History [...] How often do you attend religious or congregational Never 10/23/2020 services? 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
--- OUTSIDE RECORDS SUMMARY | 2022-04-07 13:19 | XMS_ITS | Encounter Summary ---
:1995 Author Organization [facility] Address [address] [place] [address] Care Team Providers Name Role Phone Unavailable Primary Care Provider Unavailable Encounter Details Date Type Department Care Team Description 08/29/2013 Hospital Encounter HX NO MAPPING Bridget Harrington M .D. Social History Tobacco Use Types Packs/Day Years [...] How often do you attend bahai or moravian Never 10/23/2020 services? 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 tablet documented as of this encounter Plan of Treatment Not on filedocumented as of this encounter Visit Diagnoses Not on filedocumented in this encounter
--- OUTSIDE RECORDS SUMMARY | 2022-04-07 13:19 | XMS_ITS | Encounter Summary ---
:1995 Author Organization [facility] Address [address] [place] [address] Care Team Providers Name Role Phone Unavailable Primary Care Provider Unavailable Encounter Details Date Type Department Care Team Description 11/21/2013 Hospital Encounter [facility]X [facility] Bridget Saldaña M.D. Social History [...] 10/23/2020 relatives? How often do you attend latter-day or mosque Never 10/23/2020 services? 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 - 11/21/2013 1:47 PM CDT Antepartum Exam, Initial Antepartum Exam, Initial Entered On: 11/21/2013 13:48 CDT Performed On: 11/21/2013 13:47 CDT by JOY JOHNSON LPN Vitals/Ht/Wt Systolic Blood Pressure : 116 mmHg Diastolic Blood Pressure : 62 mmHg LMP Date : Pain Symptoms : No Actual Weight : 89.4 kg(Converted to: 197 lb 1 oz, 197.093 lb) Height : 167.5 cm(Converted to: 5 ft 6 inch(es), 66 inch(es)) Body Mass Index : 31.86 kg/m2 JOY JOHNSON FUND DIRECTOR - 11/21/2013 13:47 CDT Dependent Habits Tobacco Use/Currently Using : No Exposure to Tobacco Smoke : Care provider denies smoking in home Smoking Status : Never smoker JOY JOHNSON [facility] - 11/21/2013 13:47 CDT Tobacco Use Grid Last Use : never JOY JOHNSON FUND DIRECTOR - 11/21/2013 13:47 CDT Alcohol Use : No JOY JOHNSON FUND DIRECTOR - 11/21/2013 13:47 CDT Caffeine Use Grid Caffeine Use : Current Type : Soft drinks Frequency : Occasionally JOY JOHNSON [facility] - 11/21/2013 13:47 CDT Recreational Drug Use Grid Drug Use : None SANTI JOHNSONLLDAISY Baker [facility] - 11/21/2013 13:47 CDT Psychosocial Domestic Abuse Concerns : None SANTI JOHNSONLLDAISY Baker FUND DIRECTOR - 11/21/2013 13:47 CDT [facility] Document Id: [id number] CDT!27 documented in this encounter Miscellaneous Notes Miscellaneous - Bridget Villa M.D. - 11/26/2013 1:19 PM CDT General Message Document Contains Addenda Addendum by JOY JOHNSON LPN on 26 November 2013 14:43:46 CDT Informed pt of negative GC. Addendum by JOY JOHNSON LPN on 26 November 2013 13:50:47 CDT left generic message for pt to call back. JF From: BRIDGET VILLA MD To: Obstetrics/Gynecology Nurse; Sent: 11/26/2013 13:19:58 CDT Subject: General Message Actions: Notify patient of results Please inform patient of negative gonorrhea and chlamydia culture. THX SAT Source: [facility] Document Id: [id number] Electronically signed by Seth Davidson Downstream Biomanufacturing Technician [id number] at 01/11/2017 7:39 AM CDT Miscellaneous - Bridget Villa M.D. - 11/21/2013 5:28 PM CDT General Message Document Contains Addenda Addendum by BRIDGET VILLA MD on 22 November 2013 9:41 CDT The patient was informed of results. From: BRIDGET VILLA MD To: Obstetrics/Gynecology Nurse; Sent: 11/21/2013 17:28:41 CDT Subject: General Message Please notify patient of her Bacterial Vaginitis. Presctiption has already been sent to her pharmacy. MORGAN, JONAH Source: [facility] Document Id: [id number] Telephone Encounter - Bridget Villa M.D. - 11/21/2013 5:10 PM CDT Phone Message From: BRIDGET VILLA MD Sent: 11/21/2013 17:10:28 CDT Subject: Phone Message Caller is: ( ) Patient ( ) Mother ( ) Father ( ) Spouse ( ) Daughter ( ) Son ( ) Pharmacy ( X ) Other: Dr. Villa Physician: Dr. Villa Patient MRN #: Reason for Call: Message: Left a message jared patient to call office to review results. Advice/Action: Source used: ( ) Verbalizes understanding [...] back cell phone number ( ) [facility]: [facility] Document Id: [id number] Electronically signed by Stuart [facility] Downstream Biomanufacturing Technician [id number] at 01/11/2017 7:39 AM CDT Miscellaneous - Bridget Villa M.D. - 11/21/2013 2:28 PM CDT Ambulatory Patient Summary [facility] [address], [address] [place], [place] [phone] Visit Information Name: DHIRAJ LANDA [facility] Number: [id number] Current Date: 11/21/2013 14:28:45 Physicians Attending Provider: BRIDGET VILLA MD Primary Care Provider: PCP, UNASSIGNED - [...] a day asneeded for Shortness of Breath albuterol (albuterol 90 mcg/inh inhalation aerosol) 2 puff(s), Inhalation, four times a day as needed for Shortness of breath / Wheezing albuterol (albuterol CFC free 90 mcg/inh inhalation aerosol) See Instructions 2 puffs every 4-6 hours as needed albuterol (albuterol 2.5 mg/3 mL (0.083%) inhalation solution) See Instructions one unit dose quid and q2hr prn fluticasone nasal (Flonase 0.05 mg/inh nasal spray) 2 [place](s), Nasal, two times a day fluticasone-salmeterol (Advair Diskus 250 mcg-50 mcg inhalation powder) 1 puff(s), Inhalation, two times a day fluticasone-salmeterol (fluticasone-salmeterol 250 mcg-50 mcg inhalation powder) 1 puff(s), Inhalation, every 12 hours montelukast (montelukast 10 mg oral tablet) 1 Tablet(s), Oral, every evening montelukast (Singulair 5 mg oral tablet, chewable) See Instructions unsure of mgs-1 TABLET EVERY EVENING multivitamin, ( Multivitamins) See Instructions 1 tab daily Stop Taking the Following Medications: norgestimate-ethinyl estradiol (Ortho Tri-Cyclen 35 mcg oral tablet) Medication list as of 11-21-13 14:28 Attention: If you have any medications at home that are not on this list, DO NOT take them until youcontact your provider for clarification. Give a copy of your medication list to your primary care provider. Update your medication list any time medications or doses are changed and carry your medication list at all times in case of emergency. Electronically Signed By: BRIDGET VILLA MD Signed On:21-NOV-2013 14:28:39 Your Allergies & Intolerances Substance Reaction Symptoms Category Comments Suprax Drug Your Problem List Problem Status Onset Comments Asthma NOS (493.90) Active 05/01/12 unknown date of dx Active 06/06/2013 11/10/13 Supervision of normal first 08/02/13 Urine culture: negative profile not seen on sono: f/u ordered Active 06/06/2013 Discharge Vaginal Active Your Upcoming Appointments Date Time Location Reason Provider No Appointments found Attention: Contact your local Clinic if further appointment detail needed. Your Goals/Additional instructions: Source: [facility] POWERCHART Document Id: [id number] Miscellaneous - Bridget Villa M.D. - 11/21/2013 2:28 PM CDT Ambulatory Discharge Medication List [facility] [address] [place], [place] [phone] Visit Information Name: DHIRAJ LANDA [facility] Number: [id number] Visit Date: 11/21/2013 14:28:43 Attending Provider: BRIDGET VILLA MD Primary Care Provider: PCP, UNASSIGNED - DHIRAJ GROSSMAN has been given the following list of [...] a day asneeded for Shortness of Breath albuterol (albuterol 90 mcg/inh inhalation aerosol) 2 puff(s), Inhalation, four times a day as needed for Shortness of breath / Wheezing albuterol (albuterol CFC free 90 mcg/inh inhalation aerosol) See Instructions 2 puffs every 4-6 hours as needed albuterol (albuterol 2.5 mg/3 mL (0.083%) inhalation solution) See Instructions one unit dose quid and q2hr prn fluticasone nasal (Flonase 0.05 mg/inh nasal spray) 2 [place](s), Nasal, two times a day fluticasone-salmeterol (Advair Diskus 250 mcg-50 mcg inhalation powder) 1 puff(s), Inhalation, two times a day fluticasone-salmeterol (fluticasone-salmeterol 250 mcg-50 mcg inhalation powder) 1 puff(s), Inhalation, every 12 hours montelukast (montelukast 10 mg oral tablet) 1 Tablet(s), Oral, every evening montelukast (Singulair 5 mg oral tablet, chewable) See Instructions unsure of mgs-1 TABLET EVERY EVENING multivitamin, ( Multivitamins) See Instructions 1 tab daily Stop Taking the Following Medications: norgestimate-ethinyl estradiol (Ortho Tri-Cyclen 35 mcg oral tablet) Medication list as of 11-21-13 14:28 Attention: If you have any medications at home that are not on this list, DO NOT take them until youcontact your provider for clarification. Give a copy of your medication list to your primary care provider. Update your medication list any time medications or doses are changed and carry your medication list at all times in case of emergency. Electronically Signed By: BRIDGET VILLA MD Signed On:21-NOV-2013 14:28:39 Additional Information: Source: [facility] POWERCHART Document Id: [id number] documented in this encounter Plan of Treatment Not on filedocumented as of this encounter Procedures Procedure Name Priority Date/Time Associated Comments Diagnosis N GONOR AMP SRC Routine 11/21/2013 2:24 PM Result s for this CDT procedure are i n the results section. N GONOR AMP DNA Routine 11/21/2013 2:24 PM Result s for this CDT procedure are i n the results section. C TRACH AMP SRC Routine 11/21/2013 2:24 PM Result s for this CDT procedure are i n the results section. C TRACH AMP RNA Routine 11/21/2013 2:24 PM Result s for this CDT procedure are i n the results section. WET PREP EXAM, Routine 11/21/2013 2:24 PM Results for this UROGENITAL CDT procedure are i n the results section. documented in this encounter Results HX-N gonor Amp DNA (11/21/2013 2:24 PM CDT) athologist Signature HXN gonor Amp Negative POWERCHART DNA-[place] Specimen (Source) Anatomical Collection Method Collection Time Re ceived Time Location / / Volume Laterality 11/21/2013 2:24 PM CDT Narrative POWERCHART - 11/22/2013 7:55 PM CDT Test Performed by: [address] [address] [place] Rander: Israel meeks III, M.D. Bridget Villa M.D. LAB HISTORICAL ORDERS Performing Organization Address City/State/ZIP Code Phon e Number POWERCHART HX-N gonor Amp Src (11/21/2013 2:24 PM CDT) athologist Signature HXN gonor Amp cx POWERCHART Src-[place] Specimen (Source) Anatomical Collection Method Collection Time Re ceived Time Location / / Volume Laterality 11/21/2013 2:24 PM CDT Bridget Villa M.D. LAB HISTORICAL ORDERS Performing Organization Address City/State/ZIP Code Phon e Number POWERCHART HX-C trach Amp RNA (11/21/2013 2:24 PM CDT) [facility] gist Method Time Signature Chlamydia Negative POWERCHART trachomatis amplified RNA Specimen (Source) Anatomical Collection Method Collection Time Re ceived Time Location / / Volume Laterality 11/21/2013 2:24 PM CDT Bridget Villa M.D. LAB HISTORICAL ORDERS Performing Organization Address City/State/ZIP Code Phon e Number POWERCHART HX-C trach Amp Src (11/21/2013 2:24 PM CDT) athologist Signature HXC trach Amp cx [facility] (Source) Anatomical Collection Method Collection Time Re ceived Time Location / / Volume Laterality 11/21/2013 2:24 PM CDT Bridget Villa M.D. LAB HISTORICAL ORDERS Performing Organization Address City/[facility] Code Phon e Number POWERCHART (ABNORMAL) Wet Prep Exam, Urogenital (11/21/2013 2:24 PM CDT) athologist Signature HXWet Prep (POSITIVE) POWERCHART HXFinal Trichomonas POWERCHART : None HXFinal Clue Cells: POWERCHART Few (0-10/hpf) HXFinal Yeast: None POWERCHART Specimen (Source) Anatomical Collection Method Collection Time Re ceived Time Location / / Volume Laterality Vagina 11/21/2013 2:24 PM CDT Bridget Villa M.D. LAB MICROBIOLOGY - GENERAL O RDERABLES Performing Organization Address City/State/ZIP Code Phon e Number POWERCHART documented in this encounter Visit Diagnoses Not on filedocumented in this encounter
--- OUTSIDE RECORDS SUMMARY | 2022-04-07 13:19 | XMS_ITS | Encounter Summary ---
:1995 Author Organization [facility] Address [address] [place] [address] Care Team Providers Name Role Phone Unavailable Primary Care Provider Unavailable Encounter Details Date Type Department Care Team Description 08/02/2013 Hospital Encounter HX [facility] Bridget Saldaña M.D. Social History [...] How often do you attend presybeterian or pentecostalism Never 10/23/2020 services? 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 - 08/02/2013 3:30 PM CST [id number] C/o low backache. Has resolved now. No vaginal bleeding or leaking of fluid. TLM Source: [facility] Document Id: [id number] Electronically signed by Conversion, [facility] Senior Java Developer [id number] at 01/10/2017 3:03 PM CDT Bridget Harrington M.D. - 08/02/2013 3:30 PM CST [id number] Declines genetic testing. C/o back pain though entirely resolved. Will check ucx. Source: [facility] Document Id: [id number] Electronically signed by Conversion, [facility] Senior Java Developer [id number] at 01/10/2017 3:03 PM CDT documented in this encounter Miscellaneous Notes Miscellaneous - Bridget Harrington M.D. - 08/02/2013 3:30 PM CST [id number] Carly Joseph [id number] [address] [facility] [address] August 09, 2013 Dear Ms. Joseph: I am writing to inform you the results of the laboratory tests you had done during your recent visitto the clinic. Your results included : urine culture was NORMAL. It was a pleasure to see you in the clinic. If you have any further questions or problems, please contact our office at [phone]. Sincerely, Dr. Bridget Harrington MS Dept. CHIEF CLOTH FINISHING RANGE OPERATOR [facility] [place] Source: [facility] RWMCHXTRANSXRTFSYS Document Id: [id number] Electronically signed by Conversion, [facility] Senior Java Developer [id number] at 01/10/2017 3:03 PM CDT documented in this encounter Plan of Treatment Not on filedocumented as of this encounter Procedures Procedure Name Priority Date/Time Associated Comments Diagnosis HX CULTURE REPORT Routine 08/04/2013 9:05 AM Resu lts for this STATUS JUNIOR DATA ANALYST procedure are i n the results section. HX SN - SPEC - Routine 08/04/2013 9:05 AM Results for this DESCRIPTION JUNIOR DATA ANALYST procedure are i n the results section. HX CULTURE Routine 08/04/2013 9:05 AM Results f or this JUNIOR DATA ANALYST procedure are i n the results section. documented in this encounter Results HX CULTURE REPORT STATUS (08/04/2013 9:05 AM JUNIOR DATA ANALYST) Analysis Performed At Patho logist Time Signature CULTURE REPORT FINAL [facility] STATUS 08/04/2013 [facility] Specimen (Source) Anatomical Collection Method Collection Time Re ceived Time Location / / Volume Laterality 08/04/2013 9:05 AM JUNIOR DATA ANALYST Historical Provider LAB HISTORICAL ORDERS Performing Organization Address City/State/ZIP Code Phon e Number [facility] HX CULTURE (08/04/2013 9:05 AM JUNIOR DATA ANALYST) Analysis Performed At Patho logist Time Signature Bacterial No growth [facility] Culture, [facility] Aerobic LAB Specimen (Source) Anatomical Collection Method Collection Time Re ceived Time Location / / Volume Laterality 08/04/2013 9:05 AM JUNIOR DATA ANALYST Historical Provider LAB HISTORICAL ORDERS Performing Organization Address City/State/ZIP Code Phon e Number [facility] HX SN - SPEC - DESCRIPTION (08/04/2013 9:05 AM JUNIOR DATA ANALYST) Patholo gist Method Time Signature HXSPECIMAN Midstream [facility] DESCRIPTION Urine [facility] Specimen (Source) Anatomical Collection Method Collection Time Re ceived Time Location / / Volume Laterality 08/04/2013 9:05 AM JUNIOR DATA ANALYST Historical Provider LAB HISTORICAL ORDERS Performing Organization Address City/State/ZIP Code Phon e Number [facility] documented in this encounter Visit Diagnoses Not on filedocumented in this encounter
--- OUTSIDE RECORDS SUMMARY | 2022-04-07 13:19 | XMS_ITS | Encounter Summary ---
:1995 Author Organization [facility] Address [address] [place] [address] Care Team Providers Name Role Phone Unavailable Primary Care Provider Unavailable Encounter Details Date Type Department Care Team Description 10/24/2013 Hospital Encounter HX [facility] XRAY Provider, Histori hernandez Social History Tobacco [...] How often do you attend alevism or hoahaoism Never 10/23/2020 services? 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 - 10/24/2013 1:15 PM CDT [id number] Quick Note: Discussed at visit. Source: [facility] RWHXTRANSXSYS Document Id: [id number] Electronically signed by Stuart, [facility] Operation Superintendent [id number] at 01/09/2017 4:48 PM CDT documented in this encounter Plan of Treatment Not on filedocumented as of this encounter Visit Diagnoses Not on filedocumented in this encounter
--- OUTSIDE RECORDS SUMMARY | 2022-04-07 13:19 | XMS_ITS | Encounter Summary ---
:1995 Author Organization [facility] Address [address] [place] [address] Care Team Providers Name Role Phone Unavailable Primary Care Provider Unavailable Encounter Details Date Type Department Care Team Description 06/04/2013 Hospital Encounter HX NO MAPPING Iva Guerrero APRN, C.N.P. [address] [place], [place] [phone] (Wo rk) Social History [...] How often do you attend muslim or worship Never 10/23/2020 services? 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
--- OUTSIDE RECORDS SUMMARY | 2022-04-07 13:19 | XMS_ITS | Encounter Summary ---
:1995 Author Organization [facility] Address [address] [place] [address] Care Team Providers Name Role Phone Unavailable Primary Care Provider Unavailable Encounter Details Date Type Department Care Team Description 06/06/2013 Hospital Encounter HX [facility] Iva Sam, SHAYE N, C.N.P. [address] [place], [place] [phone] (Wo rk) Social History [...] 10/23/2020 relatives? How often do you attend jew or congregational Never 10/23/2020 services? 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 - 06/06/2013 3:50 PM CDT [id number] Body mass index is 26.61 kg/(me, dates based on early sono. Flu shot today. Nausea but no vomiting. Has parents insurance so she will also apply for [place]. TANISHA Sexual History not in a relationship with Jason RITCHIE S: Carly is a 18 year old y/o, G 1, P 0. She is 8w4d weeks today. She lives in [place] with parents. Carly has been feeling nauseated. 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 Family is close by and supportive. [facility]. Assessment: vitamins: Is taking them. Diet: Regular diet, no history of an eating disorder. Adequate calcium intake discussed. She has notbeen referred to meet with the treating and pumping supervisor. Transportation issues: nnoe Safe relationship: She has no history of abusive relationhips. Financial Concerns: money is tight Insurance: [facility], will apply for [place] Social Service/Public Health: [facility]IC/[facility] She is not a smoker. Quit recently She is planning to breastfeed her baby. Discussed wt. gain and exercise, caffeine, cat litter, choosing a baby doctor, toxic substances. O: Physical Exam: Appropriate affect and grooming. Good eye contact during interview. There is no Lymph adenopathy, or thyromegaly. Lungs are clear bilaterally, heart has regular rate and rhythm. Breasts are slightly tender, related to the and are without masses. Abdomen is soft without masses. External genitalia is without lesions, discharge is WNL. Pap smear not obtained. . CT/GC obtained. Cervix appeared normal. Fundal height is consistant with dates, no adenexal masses. Early dating USwas obtained at an earlier date. A: 1. Appropriate and health seeking behaviors toward her 2. Verbalizes understanding of care schedule, and the importance of coming to each visit as scheduled. 3. Supportive relationship with her family 4. [employer]path sent Plan:1. Discussed materials in the new OB folder, proper diet, exercise and enc. her to abstain fromalcohol. We also discussed childbirth ed. classes, she was given dates today. 2. Her next appointment will be in 4 weeks with physician. She was enc. to call with any questions. Referrals: [facility] SPENT 40 MINUTES WITH PATIENT OF WHICH 25 WERE COUNSELING REGARDING THESE ISSUES. Electronically signed by Conversion, [facility] [employer] [id number] at 01/10/2017 8:48 PM CDT Conversion, Historical Provider Ser - 06/06/2013 3:50 PM CDT [id number] Carly Joseph is a 18 year old female. Patient received: FLUZONE INJECTION Patient Questionaire: Did you receive a flu vaccine last year?0 I have a fever or feel ill today? No I have an allergy to eggs, gelatin or thimerosal? No I have had a reaction to the flu vaccine the past? No I have had Guillain-[place] syndrome? No I have a Latex Allergy? No VIS information given Source: [place] [id number] Document Id: [id number] documented in this encounter Miscellaneous Notes Miscellaneous - Iva Guerrero C.N.P., R.N. - 06/06/2013 3:50 PM CDT [id number] Carly Joseph [id number] [address] [facility] [id number] June 11, 2013 MR#: [id number] Dear Carly, I am happy to inform you of the results of the lab work we did at your recent OB visit. Please transfer this information to your Care Card. Blood Type - A Rh Status - Positive Antibody screen - Negative Hemoglobin - 12.8 Normal is 11.0 - 16.0 Rubella Status - Immune Hepatitis B SAg - Negative HIV screen - Negative Syphilis screen (Anti-Trep) - Negative Urine test - Negative Hepatitis C - Negative If you have any questions about your results feel free to give me a call at [phone]. Sincerely, Iva Guerrero RN, LACE WINDER explosives engineer [facility] [place] Source: [place] [id number] Document Id: [id number] Electronically signed by Conversion, [facility] [employer] [id number] at 01/10/2017 8:48 PM CDT documented in this encounter Plan of Treatment Not on filedocumented as of this encounter Procedures Procedure Name Priority Date/Time Associated Comments Diagnosis HIV-1/-2 AG AND AB Routine 06/08/2013 11:46 Resul ts for this SCREEN AM CDT procedure are i n the results section. HCV AB W/REFLEX TO Routine 06/08/2013 11:46 Resul ts for this HCV PCR, S AM CDT procedure are i n the results section. HEPATITIS B SURFACE Routine 06/08/2013 11:46 Resu lts for this ANTIGEN AM CDT procedure are i n the results section. RUBELLA ANTIBODIES, Routine 06/08/2013 10:05 Resu lts for this IGG AM CDT procedure are i n the results section. SYPHILIS TOTAL AB W/ Routine 06/08/2013 10:04 Res ults for this REFLEX S AM CDT procedure are i n the results section. HX CULTURE REPORT Routine 06/08/2013 8:04 AM Resu lts for this STATUS CDT procedure are i n the results section. HX SN - SPEC - Routine 06/08/2013 8:04 AM Results for this DESCRIPTION CDT procedure are i n the results section. HX CULTURE Routine 06/08/2013 8:04 AM Results f or this CDT procedure are i n the results section. RBC SYSMEX Routine 06/06/2013 5:16 PM Results f or this CDT procedure are i n the results section. RBC SYSMEX Routine 06/06/2013 5:16 PM Results f or this CDT procedure are i n the results section. RBC SYSMEX Routine 06/06/2013 5:16 PM Results f or this CDT procedure are i n the results section. RBC SYSMEX Routine 06/06/2013 5:16 PM Results f or this CDT procedure are i n the results section. AUTOMATED Routine 06/06/2013 5:16 PM Results f or this DIFFERENTIAL, B CDT procedure ar e in the results section. PLATELETS, B Routine 06/06/2013 5:16 PM Results f or this CDT procedure are i n the results section. CBC WITH Routine 06/06/2013 5:16 PM Results f or this DIFFERENTIAL, B CDT procedure ar e in the results section. HEMOGLOBIN, B Routine 06/06/2013 5:16 PM Results for this CDT procedure are i n the results section. HEMATOCRIT, B Routine 06/06/2013 5:16 PM Results for this CDT procedure are i n the results section. HX AMORPHOUS CRYSTAL Routine 06/06/2013 5:13 PM R esults for this CDT procedure are i n the results section. HX MUCOUS THREADS Routine 06/06/2013 5:13 PM Resu lts for this CDT procedure are i n the results section. HX UR PROTEIN ALBUMIN Routine 06/06/2013 5:13 PM Results for this CDT procedure are i n the results section. HX SP SOURCE Routine 06/06/2013 5:13 PM Results f or this CDT procedure are i n the results section. URINALYSIS, DIPSTICK Routine 06/06/2013 5:13 PM R esults for this CDT procedure are i n the results section. KETONES,QL(U) Routine 06/06/2013 5:13 PM Results for this CDT procedure are i n the results section. URINALYSIS, ROUTINE Routine 06/06/2013 5:13 PM Re sults for this CDT procedure are i n the results section. URINALYSIS, ROUTINE Routine 06/06/2013 5:13 PM Re sults for this CDT procedure are i n the results section. URINALYSIS, ROUTINE Routine 06/06/2013 5:13 PM Re sults for this CDT procedure are i n the results section. URINALYSIS, ROUTINE Routine 06/06/2013 5:13 PM Re sults for this CDT procedure are i n the results section. URINALYSIS, ROUTINE Routine 06/06/2013 5:13 PM Re sults for this CDT procedure are i n the results section. PH, U Routine 06/06/2013 5:13 PM Results f or this CDT procedure are i n the results section. URINE MICROSCOPIC Routine 06/06/2013 5:13 PM Resu lts for this CDT procedure are i n the results section. URINE MICROSCOPIC Routine 06/06/2013 5:13 PM Resu lts for this CDT procedure are i n the results section. URINE MICROSCOPIC Routine 06/06/2013 5:13 PM Resu lts for this CDT procedure are i n the results section. UROBILINOGEN, QL, U Routine 06/06/2013 5:13 PM Re sults for this CDT procedure are i n the results section. BILIRUBIN, U Routine 06/06/2013 5:13 PM Results f or this CDT procedure are i n the results section. documented in this encounter Results Hepatitis B Surface Antigen (06/08/2013 11:46 AM CDT) P athologist Signature HBs Antigen, S Negative [facility] Specimen (Source) Anatomical Collection Method Collection Time Re ceived Time Location / / Volume Laterality 06/08/2013 11:46 AM CDT Historical Provider LAB MICROBIOLOGY - BLOOD ORD ERABLES Performing Organization Address City/State/ZIP Code Phon e Number [facility] HIV-1/-2 Ag and Ab Screen (06/08/2013 11:46 AM CDT) P athologist Signature HX Hiv-1/-2 Ab Negative [facility] Screen, S [facility] Specimen (Source) Anatomical Collection Method Collection Time Re ceived Time Location / / Volume Laterality 06/08/2013 11:46 AM CDT Historical Provider LAB MICROBIOLOGY - BLOOD ORD ERABLES Performing Organization Address City/State/ZIP Code Phon e Number [facility] HCV Ab w/Reflex to HCV PCR, S (06/08/2013 11:46 AM CDT) P athologist Signature HXHep C Ab Negative [facility] Specimen (Source) Anatomical Collection Method Collection Time Re ceived Time Location / / Volume Laterality 06/08/2013 11:46 AM CDT Historical Provider LAB MICROBIOLOGY - BLOOD ORD ERABLES Performing Organization Address City/State/ZIP Code Phon e Number [facility] Rubella Antibodies, IgG (06/08/2013 10:05 AM CDT) P athologist Signature HX Rubella 92 IUML [facility] IgG-[facility] Specimen (Source) Anatomical Collection Method Collection Time Re ceived Time Location / / Volume Laterality 06/08/2013 10:05 AM CDT Narrative [facility] - 10/12/19 14 11:11 PM DELICATESSEN MANAGER Interpretation: ??Positive, Immune Historical Provider LAB MICROBIOLOGY - BLOOD ORD ERABLES Performing Organization Address City/State/ZIP Code Phon e Number [facility] Syphilis IgG Antibody with Reflex (06/08/2013 10:04 AM CDT) P athologist Signature Treponema Negative [facility] pallidum Ab by [facility] LAB Specimen (Source) Anatomical Collection Method Collection Time Re ceived Time Location / / Volume Laterality 06/08/2013 10:04 AM CDT Historical Provider LAB BLOOD ADD-ON Performing Organization Address City/State/ZIP Code Phon e Number [facility] HX CULTURE REPORT STATUS (06/08/2013 8:04 AM CDT) Analysis Performed At Patho logist Time Signature CULTURE REPORT FINAL [facility] STATUS 06/08/2013 [facility] Specimen (Source) Anatomical Collection Method Collection Time Re ceived Time Location / / Volume Laterality 06/08/2013 8:04 AM CDT Historical Provider LAB HISTORICAL ORDERS Performing Organization Address City/State/ZIP Code Phon e Number [facility] HX CULTURE (06/08/2013 8:04 AM CDT) Analysis Performed At Patho logist Time Signature Bacterial No growth [facility] Culture, [facility] Aerobic LAB Specimen (Source) Anatomical Collection Method Collection Time Re ceived Time Location / / Volume Laterality 06/08/2013 8:04 AM CDT Historical Provider LAB HISTORICAL ORDERS Performing Organization Address City/State/ZIP Code Phon e Number [facility] HX SN - SPEC - DESCRIPTION (06/08/2013 8:04 AM CDT) Patholo gist Method Time Signature HXSPECIMAN Midstream [facility] LAB Specimen (Source) Anatomical Collection Method Collection Time Re ceived Time Location / / Volume Laterality 06/08/2013 8:04 AM CDT Historical Provider LAB HISTORICAL ORDERS Performing Organization Address City/State/ZIP Code Phon e Number [facility] Platelet Count (06/06/2013 5:16 PM CDT) P athologist Signature Platelet Count 214 109L [facility] Specimen (Source) Anatomical Collection Method Collection Time Re ceived Time Location / / Volume Laterality 06/06/2013 5:16 PM CDT Historical Provider LAB BLOOD ADD-ON Performing Organization Address City/State/ZIP Code Phon e Number [facility] RBC SYSMEX (06/06/2013 5:16 PM CDT) athologist Signature HX RDW 12.8 [facility] Specimen (Source) Anatomical Collection Method Collection Time Re ceived Time Location / / Volume Laterality 06/06/2013 5:16 PM CDT Historical Provider LAB URINE ORDERABLES Performing Organization Address City/State/ZIP Code Phon e Number [facility] RBC SYSMEX (06/06/2013 5:16 PM CDT) P athologist Signature MCHC 35.0 GMDL [facility] Specimen (Source) Anatomical Collection Method Collection Time Re ceived Time Location / / Volume Laterality 06/06/2013 5:16 PM CDT Historical Provider LAB URINE ORDERABLES Performing Organization Address City/State/ZIP Code Phon e Number [facility] RBC SYSMEX (06/06/2013 5:16 PM CDT) P athologist Signature MCH 30.6 PG [facility] Specimen (Source) Anatomical Collection Method Collection Time Re ceived Time Location / / Volume Laterality 06/06/2013 5:16 PM CDT Historical Provider LAB URINE ORDERABLES Performing Organization Address City/State/ZIP Code Phon e Number [facility] Automated Differential (06/06/2013 5:16 PM CDT) P athologist Signature MCV 88 FL [facility] Specimen (Source) Anatomical Collection Method Collection Time Re ceived Time Location / / Volume Laterality 06/06/2013 5:16 PM CDT Historical Provider LAB BLOOD ADD-ON Performing Organization Address City/State/ZIP Code Phon e Number [facility] Hematocrit (06/06/2013 5:16 PM CDT) P athologist Signature Hematocrit 36.6 [facility] Specimen (Source) Anatomical Collection Method Collection Time Re ceived Time Location / / Volume Laterality 06/06/2013 5:16 PM CDT Historical Provider LAB BLOOD ADD-ON Performing Organization Address City/State/ZIP Code Phon e Number [facility] Hemoglobin (06/06/2013 5:16 PM CDT) P athologist Signature Hemoglobin 12.8 GMDL [facility] Specimen (Source) Anatomical Collection Method Collection Time Re ceived Time Location / / Volume Laterality 06/06/2013 5:16 PM CDT Historical Provider LAB BLOOD ADD-ON Performing Organization Address City/State/ZIP Code Phon e Number [facility] RBC SYSMEX (06/06/2013 5:16 PM CDT) P athologist Signature Erythrocytes 4.18 X10 [facility] Specimen (Source) Anatomical Collection Method Collection Time Re ceived Time Location / / Volume Laterality 06/06/2013 5:16 PM CDT Historical Provider LAB URINE ORDERABLES Performing Organization Address City/State/ZIP Code Phon e Number [facility] CBC with Differential (06/06/2013 5:16 PM CDT) P athologist Signature Leukocytes 8.2 109L [facility] Specimen (Source) Anatomical Collection Method Collection Time Re ceived Time Location / / Volume Laterality 06/06/2013 5:16 PM CDT Historical Provider LAB BLOOD ADD-ON Performing Organization Address City/State/ZIP Code Phon e Number [facility] HX AMORPHOUS CRYSTAL (06/06/2013 5:13 PM CDT) P athologist Signature HXAmorphous Many HPF [facility] Specimen (Source) Anatomical Collection Method Collection Time Re ceived Time Location / / Volume Laterality 06/06/2013 5:13 PM CDT Historical Provider LAB HISTORICAL ORDERS Performing Organization Address City/State/ZIP Code Phon e Number [facility] HX MUCOUS THREADS (06/06/2013 5:13 PM CDT) P athologist Signature HX MUCOUS Present LPF [facility] THREADS [facility] Specimen (Source) Anatomical Collection Method Collection Time Re ceived Time Location / / Volume Laterality 06/06/2013 5:13 PM CDT Historical Provider LAB HISTORICAL ORDERS Performing Organization Address City/State/ZIP Code Phon e Number [facility] Urine Microscopic (06/06/2013 5:13 PM CDT) P athologist Signature HXUr WBC 0 HPF [facility] Specimen (Source) Anatomical Collection Method Collection Time Re ceived Time Location / / Volume Laterality 06/06/2013 5:13 PM CDT Historical Provider LAB URINE ORDERABLES Performing Organization Address City/State/ZIP Code Phon e Number [facility] Urine Microscopic (06/06/2013 5:13 PM CDT) P athologist Signature Red Blood Cell 0 HPF [facility] Clump, Urine [facility] Specimen (Source) Anatomical Collection Method Collection Time Re ceived Time Location / / Volume Laterality 06/06/2013 5:13 PM CDT Historical Provider LAB URINE ORDERABLES Performing Organization Address City/State/ZIP Code Phon e Number [facility] HX SP SOURCE (06/06/2013 5:13 PM CDT) Patholo gist Method Time Signature HXSP Source Midstream [facility] Urine [facility] Specimen (Source) Anatomical Collection Method Collection Time Re ceived Time Location / / Volume Laterality 06/06/2013 5:13 PM CDT Historical Provider LAB HISTORICAL ORDERS Performing Organization Address City/State/ZIP Code Phon e Number [facility] Urinalysis, Routine (06/06/2013 5:13 PM CDT) P athologist Signature Leukocyte Negative [facility] Esterase [facility] Specimen (Source) Anatomical Collection Method Collection Time Re ceived Time Location / / Volume Laterality 06/06/2013 5:13 PM CDT Historical Provider LAB URINE ORDERABLES Performing Organization Address City/State/ZIP Code Phon e Number [facility] Urinalysis no Reflex (06/06/2013 5:13 PM CDT) P athologist Signature HXNITRITE Negative [facility] Specimen (Source) Anatomical Collection Method Collection Time Re ceived Time Location / / Volume Laterality 06/06/2013 5:13 PM CDT Historical Provider LAB URINE ORDERABLES Performing Organization Address City/State/ZIP Code Phon e Number [facility] Urobilinogen, QL, Urine (06/06/2013 5:13 PM CDT) P athologist Signature Urobilinogen Normal [facility] Specimen (Source) Anatomical Collection Method Collection Time Re ceived Time Location / / Volume Laterality 06/06/2013 5:13 PM CDT Historical Provider LAB URINE ORDERABLES Performing Organization Address City/[facility]/ZIP Code Phon e Number [facility] HX UR PROTEIN ALBUMIN (06/06/2013 5:13 PM CDT) P athologist Signature Hx Ur [facility] Albumin [facility] Specimen (Source) Anatomical Collection Method Collection Time Re ceived Time Location / / Volume Laterality 06/06/2013 5:13 PM CDT Historical Provider LAB HISTORICAL ORDERS Performing Organization Address City/State/ZIP Code Phon e Number [facility] pH, Urine (06/06/2013 5:13 PM CDT) P athologist Signature pH, POCT, Urine 6.5 PHUNITS [facility] Specimen (Source) Anatomical Collection Method Collection Time Re ceived Time Location / / Volume Laterality 06/06/2013 5:13 PM CDT Historical Provider LAB URINE ORDERABLES Performing Organization Address City/State/ZIP Code Phon e Number [facility] Urinalysis, Routine (06/06/2013 5:13 PM CDT) P athologist Signature HXBLOOD Negative [facility] Specimen (Source) Anatomical Collection Method Collection Time Re ceived Time Location / / Volume Laterality 06/06/2013 5:13 PM CDT Historical Provider LAB URINE ORDERABLES Performing Organization Address City/State/ZIP Code Phon e Number [facility] Urinalysis, Routine (06/06/2013 5:13 PM CDT) P athologist Signature Specific 1.012 [facility] [place], [place] LAB Specimen (Source) Anatomical Collection Method Collection Time Re ceived Time Location / / Volume Laterality 06/06/2013 5:13 PM CDT Historical Provider LAB URINE ORDERABLES Performing Organization Address City/State/ZIP Code Phon e Number [facility] Ketones, Qual, Urine (06/06/2013 5:13 PM CDT) P athologist Signature Ketones, QL(U) Negative [facility] Specimen (Source) Anatomical Collection Method Collection Time Re ceived Time Location / / Volume Laterality 06/06/2013 5:13 PM CDT Historical Provider LAB URINE ORDERABLES Performing Organization Address City/State/ZIP Code Phon e Number [facility] Bilirubin, Urine (06/06/2013 5:13 PM CDT) P athologist Signature HXBILIRUBIN Negative [facility] Specimen (Source) Anatomical Collection Method Collection Time Re ceived Time Location / / Volume Laterality 06/06/2013 5:13 PM CDT Historical Provider LAB URINE ORDERABLES Performing Organization Address City/State/ZIP Code Phon e Number [facility] Urinalysis, Routine (06/06/2013 5:13 PM CDT) P athologist Signature Glucose Negative MGDL [facility] Specimen (Source) Anatomical Collection Method Collection Time Re ceived Time Location / / Volume Laterality 06/06/2013 5:13 PM CDT Historical Provider LAB URINE ORDERABLES Performing Organization Address City/State/ZIP Code Phon e Number [facility] Urinalysis, Routine (06/06/2013 5:13 PM CDT) P athologist Signature Appearance Cloudy [facility] Specimen (Source) Anatomical Collection Method Collection Time Re ceived Time Location / / Volume Laterality 06/06/2013 5:13 PM CDT Historical Provider LAB URINE ORDERABLES Performing Organization Address City/State/ZIP Code Phon e Number [facility] Urine Microscopic (06/06/2013 5:13 PM CDT) P athologist Signature HXUr Color Yellow [facility] Specimen (Source) Anatomical Collection Method Collection Time Re ceived Time Location / / Volume Laterality 06/06/2013 5:13 PM CDT Historical Provider LAB URINE ORDERABLES Performing Organization Address City/State/ZIP Code Phon e Number [facility] documented in this encounter Visit Diagnoses Not on filedocumented in this encounter
--- OUTSIDE RECORDS SUMMARY | 2022-04-07 13:19 | XMS_ITS | Encounter Summary ---
:1995 Author Organization [facility] Address [address] [place] [address] Care Team Providers Name Role Phone Unavailable [...] How often do you attend anabaptist or buddhist Never 10/23/2020 services? 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
--- OUTSIDE RECORDS SUMMARY | 2022-04-07 13:19 | XMS_ITS | Encounter Summary ---
:1995 Author Organization [facility] Address [address] [place] [id number] Care Team Providers Name Role Phone Unavailable Primary Care Provider Unavailable Encounter Details Date Type Department Care Team Description 12/21/2013 Hospital Encounter HX [facility] Dusty Dodd D.O. 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 tablet documented as of this encounter Miscellaneous Notes Miscellaneous - Mk Rock, DGolden - 12/21/2013 2:06 PM CDT Ambulatory Patient Summary [facility] [address], [address] [place], [place] [id number] Visit Information Name: DHIRAJ LANDA [facility] Number: [id number] Current Date: 12/21/2013 14:06:34 Physicians Attending Provider: MK ROCK MD Primary Care Provider: PCP, UNASSIGNED - AILYN GROSSMANN PAWEL has been given the following list [...] nasal (Flonase 0.05 mg/inh nasal spray) 2 [place](s), Nasal, two times a day fluticasone-salmeterol (Advair Diskus 250 mcg-50 mcg inhalation powder) 1 puff(s), Inhalation, two times a day multivitamin, ( Multivitamins) See Instructions 1 tab daily Stop Taking the Following Medications: Medication list as of 12-21-13 14:06 Attention: If you have any medications at home that are not on this list, DO NOT take them until youcontact your provider for clarification. Give a copy of your medication list to your primary care provider. Update your medication list any time medications or doses are changed and carry your medication list at all times in case of emergency. Electronically Signed By: MK ROCK MD Signed On:21-DEC-2013 14:06:24 Your Allergies & Intolerances Substance Reaction Symptoms Category Comments Suprax Drug Your Problem List Problem Status Onset Comments Asthma NOS (493.90) Active 05/01/12 unknown date of dx Supervision of Normal First Active 06/06/2013 11/10/13 Supervision of normal first 08/02/13 Urine culture: negative profile not seen on sono: f/u ordered Active 06/06/2013 Discharge Vaginal Active Vaginosis Bacterial Active Decreased Fetus Movement Affecting Preg Management Active Your Upcoming Appointments Date Time Location Reason Provider No Appointments found Attention: Contact your local Clinic if further appointment detail needed. Your Goals/Additional instructions: Source: [facility] POWERCHART Document Id: [id number] Miscellaneous - Mk Rock D.O. - 12/21/2013 2:06 PM CDT Ambulatory Discharge Medication List [facility] [address], [address] [place], [place] [id number] Visit Information Name: DHIRAJ LANDA [facility] Number: [id number] Visit Date: 12/21/2013 14:06:32 Attending Provider: MK ROCK MD Primary Care Provider: PCP, UNASSIGNED - [...] nasal (Flonase 0.05 mg/inh nasal spray) 2 [place](s), Nasal, two times a day fluticasone-salmeterol (Advair Diskus 250 mcg-50 mcg inhalation powder) 1 puff(s), Inhalation, two times a day multivitamin, ( Multivitamins) See Instructions 1 tab daily Stop Taking the Following Medications: Medication list as of 12-21-13 14:06 Attention: If you have any medications at home that are not on this list, DO NOT take them until youcontact your provider for clarification. Give a copy of your medication list to your primary care provider. Update your medication list any time medications or doses are changed and carry your medication list at all times in case of emergency. 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 Intake/History Entered On: 12/21/2013 13:42 CDT Performed On: 12/21/2013 13:40 CDT by ANA KEYES LPN Intake Chief Complaint : ob check- no concerns LMP Date : 06/06/2013 Systolic Blood Pressure : 102 mmHg Diastolic Blood Pressure : 70 mmHg NIBP Mean : 81 mmHg Actual Weight : 96.7 kg(Converted to: 213 lb 3 oz) Dosing Weight Clinic : 96.7 kg ANA KEYES LPN - 12/21/2013 13:40 CDT General Info Information Given By : Patient Languages : Romanian ANA KEYES LPN - 12/21/2013 13:40 CDT Subjective Pain Symptoms : No ANA KEYES LPN - 12/21/2013 13:40 CDT Dependent Habits Tobacco Use/Currently Using : No Exposure to Tobacco Smoke : Care provider denies smoking in home, Other: former smoker Smoking Status : Former smoker ANA KEYES LPN - 12/21/2013 13:40 CDT Tobacco Use Grid Last Use : never ANA KEYES LPN - 12/21/2013 13:40 CDT Caffeine Use Grid Caffeine Use : Current Type : Soft drinks Frequency : Occasionally ANA KEYES LPN - 12/21/2013 13:40 CDT Recreational Drug Use Grid Drug Use : None ANA KEYES LPN - 12/21/2013 13:40 CDT Source: [facility] POWERCHART Document Id: [id number] CDT!29 Miscellaneous - Nena Ocampo [email or web address].NGonzalo - 12/20/2013 4:11 PM CDT Patient returned call on Lab update From: NENA OCAMPO LPN ( Obstetrics/Gynecology Nurse) Sent: 12/20/2013 16:11:52 CDT Subject: Patient returned call on Lab update Patient returned call on Lab update. Notified of positive Group B strep. Source: [facility] POWERCHART Document Id: [id number] Electronically signed by Conversion, [facility] [employer] [id number] at 01/11/2017 4:24 AM CDT documented in this encounter Plan of Treatment Not on filedocumented as of this encounter Visit Diagnoses Not on filedocumented in this encounter
--- OUTSIDE RECORDS SUMMARY | 2022-04-07 13:19 | XMS_ITS | Encounter Summary ---
:1995 Author Organization [facility] Address [address] [place] [address] Care Team Providers Name Role Phone Unavailable Primary Care Provider Unavailable Encounter Details Date Type Department Care Team Description 08/29/2013 Hospital Encounter HX [facility] Bridget Saldaña M.D. Social History [...] How often do you attend uatsdin or holiness Never 10/23/2020 services? 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 - 08/29/2013 9:45 AM CST [id number] No concerns. JF [facility] Document Id: [id number] Electronically signed by Conversion, [facility] Siding Mechanic [id number] at 01/09/2017 2:31 PM CDT Bridget Harrington M.D. - 08/29/2013 9:45 AM CST [id number] No complaints. S/p suzette scan. Awaiting us results. Source[facility] Document Id: [id number] Electronically signed by Conversion, [facility] Siding Mechanic [id number] at 01/09/2017 2:31 PM CDT documented in this encounter Plan of Treatment Not on filedocumented as of this encounter Visit Diagnoses Not on filedocumented in this encounter
--- OUTSIDE RECORDS SUMMARY | 2022-04-07 13:19 | XMS_ITS | Encounter Summary ---
:1995 Author Organization [facility] Address [address] [place] [address] Care Team Providers Name Role Phone Unavailable Primary Care Provider Unavailable Encounter Details Date Type Department Care Team Description 12/02/2013 Hospital Encounter HX [facility] Prisca Villa M.D. Social History Tobacco Use Types Packs/Day [...] How often do you attend yarsanism or church Never 10/23/2020 services? 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/2017 10:51 AM [employer] documented as of this encounter Last Filed Vital Signs Vital Sign Reading Time Taken Comments Blood Pressure 128/73 12/02/2013 7:13 PM CDT Pulse 84 12/02/2013 7:13 PM CDT Temperature - - Respiratory Rate 18 12/02/2013 7:13 PM CDT Oxygen Saturation - - Inhaled Oxygen Concentration - - Weight 88.8 kg (195 lb 12.3 oz) 12/02/2013 7:13 PM CDT Height 170 cm (5' 6.93) 12/02/2013 7:13 PM CDT Body Mass Index 30.73 12/02/2013 7:13 PM CDT Body Mass Index Percentile 94.83 % 12/02/2013 7:13 PM CD T Growth Chart: [facility] (Girls, 2-20 Years) documented in this encounter Discharge Summaries Meghann Trejo R.N. - 12/02/2013 8:06 PM CDT Hospital Discharge Instructions [facility] [address] [place] [id number] Patient Discharge Instructions Name: RAYMONDDHIRAJ WRIGHT Current Date: 12/02/2013 20:06:43 : 1995 12:00 AM [facility] Number: [id number] Patient Address: [address] [place] [phone] Patient Primary Care Provider: Name: PCP, UNASSIGNED - RW Phone: Discharge Diagnosis: [facility] would like to thank you for allowing us to assist you with yourhealthcare needs. The following includes patient education materials and information regarding your injury/illness. Comment: DHIRAJ LANDAE has been given the following list of follow-up instructions, medication list and patient education materials: Follow-up Instructions With: Address: When: Continue normal care and appointments Comments: Medications Medication/Strength How to Take Indications/Special Instructions/Comments/Notes for Patient Medication Changes/Routing albuterol (albuterol 90 mcg/inh inhalation aerosol) See Instructions, as needed for Shortness of breath / Wheezing 1-2 puffs Inhalation q4-6hr as needed for asthma *albuterol-ipratropium (DuoNeb inhalation solution) 1 Each, Nebulized inhalation, four times a day as needed for Shortness of Breath albuterol (albuterol 90 mcg/inh inhalation aerosol) 2 puff(s), Inhalation, four times a day as needed for Shortness of breath / Wheezing albuterol (albuterol CFC free 90 mcg/inh inhalation aerosol) See Instructions 2 puffs every 4-6 hours as needed *albuterol (albuterol 2.5 mg/3 mL (0.083%) inhalation solution) See Instructions one unit dose quid and q2hr prn *fluticasone nasal (Flonase 0.05 mg/inh nasal spray) 2 [place](s), Nasal, two times a day fluticasone-salmeterol (Advair Diskus 250 mcg-50 mcg inhalation powder) 1 puff(s), Inhalation, two times a day fluticasone-salmeterol (fluticasone-salmeterol 250 mcg-50 mcg inhalation powder) 1 puff(s), Inhalation, every 12 hours *montelukast (montelukast 10 mg oral tablet) 1 Tablet(s), Oral, every evening *montelukast (Singulair 5 mg oral tablet, chewable) See Instructions unsure of mgs-1 TABLET EVERY EVENING multivitamin, ( Multivitamins) See Instructions 1 tab daily * You have let us know that you are not taking this medication as listed. Please talk with your primary care provider or the health care provider who prescribed the medication as soon as possible. Stop Taking the Following Medications: Medication list as of 12-02-13 20:06 Attention: If you have any medications at home that are not on this list, DO NOT take them until youcontact your provider for clarification. Give a copy of your medication list to your primary care provider. Update your medication list any time medications or doses are changed and carry your medication list at all times in case of emergency. Comment: Electronically Signed By: Signed On: Your Upcoming Appointments Date Time Location Reason Provider 12/05/2013 13:00 [facility] [employer] Bridget Villa MD 12/18/2013 15:20 [facility] [employer] 36 wk ob check/us room Iva Guerrero CNP, BLASTERVOLD, JACALYN MARIE , have received the attached patient education materials/instructionsand have verbalized understanding: Patient Signature Date Time Care Provider Signature Date Time 60043 Kick Counts Its normal to worry about your babys health. One way you can know your babys doing well is to recordthe babys movements once a day. This is called a kick count. You will usually feel your baby move bythe 20th week of . Remember to take your kick count records to all your appointments with your healthcare provider. How to Count Kicks ?? Choose a time when the baby is active, such as after a meal. ?? Sit comfortably or lie on your side. ?? The first time the baby moves, write down the time. ?? Count each movement until the baby has moved 10 times. This can take from 20 minutes to 2 hours. ?? If the baby hasnt moved 4 times in 1 hour, pat your stomach to wake the baby up. ?? Write down the time you feel the babys 10th movement. ?? Try to do it at the same time each day. When to Call Your Healthcare Provider Call your healthcare provider right away if you notice any of the following: ?? Your baby moves fewer than 10 times in 4 hours while youre doing kick counts. ?? Your baby moves much less often than on the days before. You have not felt your baby move all day. ?? 0629-6942 [place] [address]. All rights reserved. This information is not intended as a substitute for professional medical care. Always follow your healthcare professional's instructions. [id number] PREMATURE LABOR Premature Labor (also called Pre-term labor) is when you start to have symptoms of labor before 37 weeks of (3 weeks before your due date). Premature labor can lead to premature delivery. Babies need at least 37 weeks of for all the organs to develop normally. The earlier the delivery, the greater the danger to the baby. In most cases, the actual cause of pre-term labor is unknown. However if you have any of the following conditions, you are at a higher risk: ?? Smoking ?? Alcohol or substance abuse ?? High blood pressure ?? Hyperthyroidism ?? Diabetes ?? Premature labor with other pregnancies ?? Early rupture of the amniotic sac membranes ?? Infection in the uterus ?? Incompetent cervix ?? Twin (or more) Contractions are the first sign of premature labor. Contractions are different from cramping. Usually, a contraction is painful and the abdomen gets hard. It can last from a few seconds to a few minutes. Some women may feel only a sense of pressure in the abdomen, thighs, rectum or vagina. Some may feel only the hardening of the uterus without pain or pressure. Or, there may be a constant pain the lower back which spreads forward toward the abdomen. Premature labor can be treated with medicines and activity restrictions. If the condition is treatedearly on, your baby will have a much better chance of avoiding a premature delivery. HOME CARE: 1. Learn the signs of premature labor. 2. Don't smoke, drink alcohol or use other harmful substances. 3. Avoid stress and strenuous work. 4. Report any unusual symptoms to your doctor. FOLLOW UP with your doctor or as advised by our staff. GET PROMPT MEDICAL ATTENTION if any of the following occur: ?? Four or more contractions in a one-hour period ?? Gush or slow leaking of water from your vagina ?? Any vaginal bleeding ?? Decreased movement of your baby ?? Change in vaginal discharge Something seems wrong, even if you don't know what it is ?? 7127-2043 [place] [address]. All rights reserved. This information is not intended as a substitute for professional medical care. Always follow your healthcare professional's instructions. [id number] FALSE LABOR [term ] If your is at 37 weeks or more and you are having contractions that are not true labor, you are having false labor. This means that it is not time yet to deliver your baby. True labor contractions can start unevenly but soon come closer together in a regular pattern, getting stronger and longer. The intervals between contractions gets shorter. Even at the onset, these contractions last at least 30 seconds and increase to a minute. Most women first feel them high up in the abdomen, then they spread over the whole abdomen and into the lower back. Sometimes they go in the reverse order. False labor contractions can be strong, frequent, and painful, but there is no regular pattern. Theymight come five, then two, then eight, then five minutes apart. The intensity can vary from strong to mild to strong again. While true labor contractions dont stop no matter what you are doing, false labor may stop on its own, or when you begin or end an activity. False labor is usually felt strongestin the lower abdomen and groin area. False labor might make you feel anxious or lose sleep. Having false labor doesnt mean you are sick or that anything is wrong with your baby. You dont need to take medicine for it. HOME CARE: ?? It can help to drink plenty of water and take warm baths. Do what you can ahead of time to prepare for giving so youll have less to worry about later. ?? Keep a record of your contractions. Write down what time each one starts and how long it lasts. Astopwatch is helpful. Look for the pattern of regularly spaced out contractions with a gradual increase in the time each one lasts. ?? Dont be embarrassed about going to the hospital with a false alarm. Think of it as good practice for the real thing. FOLLOW UP with your doctor or as advised by our staff. If you are worried, confused, cant eat or sleep, or have questions about your health or , call your doctor. GET PROMPT MEDICAL ATTENTION if any of the following occur: ?? If you are earlier than 37 weeks and begin having any contractions again ?? Contractions are regular, getting longer, stronger, and closer together (true labor) ?? Fever of 100.4??F (38??C) or higher, or as directed by your healthcare provider ?? You pass water or begin to bleed Youre not sure if you are having false or true labor ?? 4051-8672 Located within [facility], [address] [place] [address], [place] [address]. All rights reserved. This information is not intended as a substitute for professional medical care. Always follow your healthcare professional's instructions. This document has images extracted. Please consider using [employer] for all your patient education needs. Source: [facility] POWERCHART Document Id: [id number] Meghann Trejo R.N. - 12/02/2013 8:06 PM CDT Hospital Discharge Medication List [facility] [address] [place] [address] Discharge Medication List Name: DHIRAJ LANDA Current Date: 12/02/2013 20:06:42 : 1995 12:00 AM [facility] Number: [id number] Patient Address: [address] [place] [phone] Patient Primary Care Provider: Name: PCP, UNASSIGNED - RW Phone: Discharge Diagnosis: [facility] in [place] would like to thank you for allowing us to assist you with your healthcare needs. The following includes patient education materials and information regarding yourinjury/illness. Medications Medication/Strength How to Take Indications/Special Instructions/Comments/Notes for Patient Medication Changes/Routing albuterol (albuterol 90 mcg/inh inhalation aerosol) See Instructions, as needed for Shortness of breath / Wheezing 1-2 puffs Inhalation q4-6hr as needed for asthma *albuterol-ipratropium (DuoNeb inhalation solution) 1 Each, Nebulized inhalation, four times a day as needed for Shortness of Breath albuterol (albuterol 90 mcg/inh inhalation aerosol) 2 puff(s), Inhalation, four times a day as needed for Shortness of breath / Wheezing albuterol (albuterol CFC free 90 mcg/inh inhalation aerosol) See Instructions 2 puffs every 4-6 hours as needed *albuterol (albuterol 2.5 mg/3 mL (0.083%) inhalation solution) See Instructions one unit dose quid and q2hr prn *fluticasone nasal (Flonase 0.05 mg/inh nasal spray) 2 [place](s), Nasal, two times a day fluticasone-salmeterol (Advair Diskus 250 mcg-50 mcg inhalation powder) 1 puff(s), Inhalation, two times a day fluticasone-salmeterol (fluticasone-salmeterol 250 mcg-50 mcg inhalation powder) 1 puff(s), Inhalation, every 12 hours *montelukast (montelukast 10 mg oral tablet) 1 Tablet(s), Oral, every evening *montelukast (Singulair 5 mg oral tablet, chewable) See Instructions unsure of mgs-1 TABLET EVERY EVENING multivitamin, ( Multivitamins) See Instructions 1 tab daily * You have let us know that you are not taking this medication as listed. Please talk with your primary care provider or the health care provider who prescribed the medication as soon as possible. Stop Taking the Following Medications: Medication list as of 12-02-13 20:06 Attention: If you have any medications at home that are not on this list, DO NOT take them until youcontact your provider for clarification. Give a copy of your medication list to your primary care provider. Update your medication list any time medications or doses are changed and carry your medication list at all times in case of emergency. Comment: Electronically Signed By: Signed On: Source: [facility] POWERCHART Document Id: [id number] documented in this encounter Medications at Time [...] tablet prenat.vits,hernandez,min-iron- Take 1 tablet by 0 /01/201402/19/2019 folic ( VITAMIN) mouth daily. tablet documented as of this encounter Progress Notes Bridget Villa M.D. - 12/02/2013 7:46 PM CDT OB Triage Evaluation S: The patient presents for decreased movement. Since being in the hospital the patient feelsmovement. Patient denies contractions. O: VITAL SIGNS Temperature Core: 37.0 DegC Peripheral Pulse Rate: 84 /min Respiratory Rate: 18 /min BLOOD PRESSURE Systolic Blood Pressure: 128 mmHg Diastolic Blood Pressure: 73 mmHg MEASUREMENTS Height: 170 cm Actual Weight: 88.8 kg SVE: deferred EFM: 155 +qualifying accelerations no decels +moderate variability [place]: rare uterine contractions A: Category 1 tracing Plan: 1. Discharge Home 2. Precautions Discussed 3. Follow up for scheduled appointment Electronically Signed By: BRIDGET VILLA MD On: 12/02/2013 07:51 PM Source: [facility] POWERCHART Document Id: [id number] documented in this encounter Nursing Notes Meghann Trejo, R.N. - 12/02/2013 8:01 PM CDT Nursing Discharge Summary Nursing Discharge Summary Entered On: 12/02/2013 20:06 CDT Performed On: 12/02/2013 20:01 CDT by MEGHANN TREJO RN DC Information Date/Time of Discharge : 12/02/2013 20:15 CDT MEGHANN TREJO RN - 12/02/2013 20:19 CDT Discharged to : Home independently Current Home Treatments : None Home Equipment : None Professional Skilled Services : None Special Services and Community Resources : None Mode of Discharge : Ambulatory Discharge Transportation : Private vehicle Accompanied By : MEGHANN TREJO RN - 12/02/2013 20:01 CDT Education General Patient Education [employer] Topics : Other: Patient educated regarding warning signs of labor, preeclampsia, fever, rupture of membranes, leaking, decreased movement, vaginal bleeding, persistant nausea and vomiting, signs and symptoms of viral and bacteria infection. Individuals Taught : Patient, Family member Barriers to Learning : None evident Teaching Method : Explanation, Printed materials Teaching Evaluation : Verbalizes understanding MEGHANN TREJO RN - 12/02/2013 20:01 CDT Valuables/Belongings Belongings Sent Home With : All valuables and belongings sent home with patient. Home Medication Disposition : None brought in with patient MEGHANN TREJO RN - 12/02/2013 20:01 CDT Source: [facility] Ocision Document Id: [id number] CDT!3 Meghann Trejo R.N. - 12/02/2013 7:48 PM CDT Ongoing Assessment Antepartum Ongoing Assessment Antepartum Entered On: 12/02/2013 20:31 CDT Performed On: 12/02/2013 19:48 CDT by MEGHANN TREJO RN FHR, Franco/Baby A Uterine Contraction Monitoring Method : External toco Uterine Contraction Frequency : 3-7 (Comment: pt. doesn't feel them [MEGHANN TREJO RN - 12/02/2013 20:26 CDT] ) Uterine Contraction Duration : 80-90 Uterine Contraction Intensity, Ext Palp : Mild [...] Provider Notified : Yes FHR Comment : MD went in and assessed patient and reviewed strip and vital signs and is placing order to discharge patient to home at this time. MEGHANN TREJO RN - 12/02/2013 20:26 CDT Psycho/Emotional Pain Symptoms : No MEGHANN TREJO RN - 12/02/2013 20:32 CDT Source: [facility] Ocision Document Id: [id number] CDT!3 Meghann Trejo R.N. - 12/02/2013 7:30 PM CDT Ongoing Assessment Antepartum Ongoing Assessment Antepartum Entered On: 12/02/2013 20:26 CDT Performed On: 12/02/2013 19:30 CDT by MEGHANN TREJO RN FHR, Franco/Baby A Uterine Contraction Monitoring Method : External toco Uterine Contraction Frequency : 8 (Comment: pt. doesn't feel them [MEGHANN TREJO RN - 12/02/2013 20:22 CDT] ) Uterine Contraction Duration : 60-80 Uterine Contraction [...] : Yes FHR Provider Notified : Yes MEGHANN TREJO RN - 12/02/2013 20:22 CDT Psycho/Emotional Pain Symptoms : No MEGHANN TREJO RN - 12/02/2013 20:32 CDT Source: [employer] Document Id: [id number] CDT!3 Meghann Trejo RYamileth. - 12/02/2013 7:10 PM CDT Ongoing Assessment Antepartum Ongoing Assessment Antepartum Entered On: 12/02/2013 19:46 CDT Performed On: 12/02/2013 19:10 CDT by MEGHANN TREJO RN Triage Chief Complaint : decreased movement Movement : Present Last Movement Date/Time Subjective : 12/02/2013 19:10 CDT Contractions, Subjective : No Urge To Push, Subjective : No Leaking Fluid, Subjective : No Vaginal Bleeding : No Intensity : 0 Heart Rate : 155 /min Acute Respiratory or Cardiac Distress : No MEGHANN TREJO RN - 12/02/2013 19:39 CDT Psycho/Emotional Affect/Behavior : Calm Pain Symptoms : No MEGHANN TREJO RN - 12/02/2013 20:19 CDT Source: [employer] Document Id: [id number] CDT!4 documented in this encounter Miscellaneous Notes Miscellaneous - Meghann Trejo R.N. - 12/02/2013 8:07 PM CDT Hospital Patient Education The following Patient Education Materials have been given to the patient: Patient Education Materials: Ambulatory PREMATURE LABOR FALSE LABOR Hvac Sales Engineer Kick Counts Understanding Preeclampsia Ambulatory [id number] PREMATURE LABOR Premature Labor (also called Pre-term labor) is when you start to have symptoms of labor before 37 weeks of (3 weeks before your due date). Premature labor can lead to premature delivery. Babies need at least 37 weeks of for all the organs to develop normally. The earlier the delivery, the greater the danger to the baby. In most cases, the actual cause of pre-term labor is unknown. However if you have any of the following conditions, you are at a higher risk: ?? Smoking ?? Alcohol or substance abuse ?? High blood pressure ?? Hyperthyroidism ?? Diabetes ?? Premature labor with other pregnancies ?? Early rupture of the amniotic sac membranes ?? Infection in the uterus ?? Incompetent cervix ?? Twin (or more) Contractions are the first sign of premature labor. Contractions are different from cramping. Usually, a contraction is painful and the abdomen gets hard. It can last from a few seconds to a few minutes. Some women may feel only a sense of pressure in the abdomen, thighs, rectum or vagina. Some may feel only the hardening of the uterus without pain or pressure. Or, there may be a constant pain the lower back which spreads forward toward the abdomen. Premature labor can be treated with medicines and activity restrictions. If the condition is treatedearly on, your baby will have a much better chance of avoiding a premature delivery. HOME CARE: 1. Learn the signs of premature labor. 2. Don't smoke, drink alcohol or use other harmful substances. 3. Avoid stress and strenuous work. 4. Report any unusual symptoms to your doctor. FOLLOW UP with your doctor or as advised by our staff. GET PROMPT MEDICAL ATTENTION if any of the following occur: ?? Four or more contractions in a one-hour period ?? Gush or slow leaking of water from your vagina ?? Any vaginal bleeding ?? Decreased movement of your baby ?? Change in vaginal discharge Something seems wrong, even if you don't know what it is ?? [id number] [facility], [address] [place] [address], [place] [address]. All rights reserved. This information is not intended as a substitute for professional medical care. Always follow your healthcare professional's instructions. [id number] FALSE LABOR [term ] If your is at 37 weeks or more and you are having contractions that are not true labor, you are having false labor. This means that it is not time yet to deliver your baby. True labor contractions can start unevenly but soon come closer together in a regular pattern, getting stronger and longer. The intervals between contractions gets shorter. Even at the onset, these contractions last at least 30 seconds and increase to a minute. Most women first feel them high up in the abdomen, then they spread over the whole abdomen and into the lower back. Sometimes they go in the reverse order. False labor contractions can be strong, frequent, and painful, but there is no regular pattern. Theymight come five, then two, then eight, then five minutes apart. The intensity can vary from strong to mild to strong again. While true labor contractions dont stop no matter what you are doing, false labor may stop on its own, or when you begin or end an activit y. False labor is usually felt strongest in the lower abdomen and groin area. False labor might make you feel anxious or lose sleep. Having false labor doesnt mean you are sick or that anything is wrong with your baby. You dont need to take medicine for it. HOME CARE: ?? It can help to drink plenty of water and take warm baths. Do what you can ahead of time to prepare for giving so youll have less to worry about later. ?? Keep a record of your contractions. Write down what time each one starts and how long it lasts. Astopwatch is helpful. Look for the pattern of regularly spaced out contractions with a gradual increase in the time each one lasts. ?? Dont be embarrassed about going to the hospital with a false alarm. Think of it as good practice for the real thing. FOLLOW UP with your doctor or as advised by our staff. If you are worried, confused, cant eat or sleep, or have questions about your health or , call your doctor. GET PROMPT MEDICAL ATTENTION if any of the following occur: ?? If you are earlier than 37 weeks and begin having any contractions again ?? Contractions are regular, getting longer, stronger, and closer together (true labor) ?? Fever of 100.4??F (38??C) or higher, or as directed by your healthcare provider ?? You pass water or begin to bleed Youre not sure if you are having false or true labor ?? [id number] Located within [facility], [address] [place] [address]. All rights reserved. This information is not intended as a substitute for professional medical care. Always follow your healthcare professional's instructions. Hvac Sales Engineer [id number] Kick Counts Its normal to worry about your babys health. One way you can know your babys doing well is to recordthe babys movements once a day. This is called a kick count. You will usually feel your baby move bythe 20th week of . Remember to take your kick count records to all your appointments with your healthcare provider. How to Count Kicks ?? Choose a time when the baby is active, such as after a meal. ?? Sit comfortably or lie on your side. ?? The first time the baby moves, write down the time. ?? Count each movement until the baby has moved 10 times. This can take from 20 minutes to 2 hours. ?? If the baby hasnt moved 4 times in 1 hour, pat your stomach to wake the baby up. ?? Write down the time you feel the babys 10th movement. ?? Try to do it at the same time each day. When to Call Your Healthcare Provider Call your healthcare provider right away if you notice any of the following: ?? Your baby moves fewer than 10 times in 4 hours while youre doing kick counts. ?? Your baby moves much less often than on the days before. You have not felt your baby move all day. ?? [id number] Located within [facility], [address] [place] [address]. All rights reserved. This information is not intended as a substitute for professional medical care. Always follow your healthcare professional's instructions. 26452 Understanding Preeclampsia Preeclampsia is a problem that may occur in . It can lead to health risks for you and your baby. No one knows what causes preeclampsia. But it almost always goes away soon after you give . Your blood pressure will be monitored regularly throughout your to help check for preeclampsia. Signs and Symptoms A common sign of preeclampsia is high blood pressure. Other signs and symptoms include: ?? Edema (swelling) in your face or hands ?? Rapid weight gain-about 1 pound or more in a day ?? Protein in your urine ?? Headache ?? Abdominal pain on your right side ?? Vision problems (flashes or spots) Tests You May Have Your doctor will want to check your blood pressure throughout your . If your blood pressureis high, you may have the following tests: ?? Urine tests to look for protein ?? Blood tests to confirm preeclampsia ?? monitoring to ensure that your baby is healthy Treating Preeclampsia Preeclampsia almost always ends soon after you give . The only cure is delivery. Until then, your doctor can help manage your condition. If your symptoms are mild, you may need bed rest at home. If your symptoms are severe, you will be hospitalized. Hospital treatment includes: ?? Complete bed rest to help control blood pressure ?? Magnesium IV (intravenous) drip during labor to prevent seizures ?? Induced labor or surgical delivery by section to help you have your baby more quickly When to Call Your Doctor Call your doctor or other healthcare provider if swelling, weight gain, or other symptoms come on quickly or are severe. Some cases of preeclampsia are more severe than others. Your signs and symptoms also may change or worsen as you get closer to your due date. Whos At Risk? Preeclampsia can occur in any woman. But if youve had it before, you have a greater chance of it recurring. Also, if you already had high blood pressure before getting , your risk for preeclampsia is higher. Americans, teens, women over 40, and women with two or more babies are also at greater risk. Dangers of Preeclampsia If not treated, preeclampsia can cause problems for you and your baby. The placenta (organ that nourishes your baby) may tear away from the uterine wall. This can lead to distress (the baby is atrisk for health problems). Or, your baby may be born too early or too small. Preeclampsia also can cause these health problems: ?? Kidney failure or other organ damage ?? Seizures ?? Stroke Once You Give In most cases, preeclampsia goes away on its own soon after you give . Within days, your blood pressure should decrease. Other signs and symptoms of preeclampsia also will go away soon. ?? [id number] [employer], [address] [place] [address], [place] [address]. All rights reserved. This information is not intended as a substitute for professional medical care. Always follow your healthcare professional's instructions. This document has images extracted. Please consider using [employer] for all your patient education needs. Source: [facility] POWERCHART Document Id: [id number] documented in this encounter Plan of Treatment Not on filedocumented as of this encounter Visit Diagnoses Not on filedocumented in this encounter
--- OUTSIDE RECORDS SUMMARY | 2022-04-07 13:19 | XMS_ITS | Encounter Summary ---
:1995 [address] [facility] Address [address] [place] [address] Care Team Providers Name Role Phone Unavailable Primary Care Provider Unavailable Encounter Details Date Type Department Care Team Description 11/07/2013 Hospital Encounter [facility] Bridget Saldaña M.D. Social History Tobacco [...] How often do you attend yazidi or sikhism Never 10/23/2020 services? 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 - 11/07/2013 1:15 PM CDT [id number] No concerns. JF Source: [facility] Document Id: [id number] Electronically signed by Conversion, [facility] [id number] at 01/09/2017 6:55 PM CDT Bridget Harrington M.D. - 11/07/2013 1:15 PM CDT [id number] kick counts reviewed. Patient reports >10 movements per hour. Source[facility] Document Id: [id number] Electronically signed by Conversion, [facility] [id number] at 01/09/2017 6:55 PM CDT documented in this encounter Plan of Treatment Not on filedocumented as of this encounter Visit Diagnoses Not on filedocumented in this encounter
--- OUTSIDE RECORDS SUMMARY | 2022-04-07 13:19 | XMS_ITS | Encounter Summary ---
:1995 Author Organization [facility] Address [address] [place] [address] Care Team Providers Name Role Phone Unavailable Primary Care Provider Unavailable Encounter Details Date Type Department Care Team Description 12/26/2013 Hospital Encounter HX [facility] Lory Saldaña M.D. Social History Tobacco Use Types [...] How often do you attend restoration or taoist Never 10/23/2020 services? 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 prenat.vits,hernandez,min-iron- Take 1 tablet by 0 01/0 01/201410/06/2017 folic ( VITAMIN) mouth. tablet prenat.vits,hernandez,min-iron- Take 1 tablet by 0 /0 01/201402/19/2019 folic ( VITAMIN) mouth daily. tablet documented as of this encounter Miscellaneous Notes Miscellaneous - Lory Villa M.D. - 12/26/2013 5:29 PM CDT Ambulatory Patient Summary [facility] [address], [address] [place], [place] [phone] Visit Information Name: AILYN LANDAN PAWEL [facility] Number: [id number] Current Date: 12/26/2013 17:29:34 Physicians Attending Provider: LORY VILLA MD Primary Care Provider: PCP, UNASSIGNED [...] nasal (Flonase 0.05 mg/inh nasal spray) 2 Lancaster(s), Nasal, two times a day fluticasone-salmeterol (Advair Diskus 250 mcg-50 mcg inhalation powder) 1 puff(s), Inhalation, two times a day multivitamin, ( Multivitamins) See Instructions 1 tab daily Stop Taking the Following Medications: Medication list as of 12-26-13 17:29 Attention: If you have any medications at home that are not on this list, DO NOT take them until youcontact your provider for clarification. Give a copy of your medication list to your primary care provider. Update your medication list any time medications or doses are changed and carry your medication list at all times in case of emergency. Electronically Signed By: LORY VILLA MD Signed On:26-DEC-2013 17:29:28 Your Allergies & Intolerances Substance Reaction Symptoms Category Comments Suprax Unknown Drug Unknown reaction as a child Your Problem List Problem Status Onset Comments Asthma NOS (493.90) Active 05/01/12 unknown date of dx; 12/26/13 Exercise induced Supervision of Normal First Active 06/06/2013 11/10/13 Supervision of normal first 08/02/13 Urine culture: negative profile not seen on sono: f/u ordered Active 06/06/2013 Your Upcoming Appointments Date Time Location Reason Provider 01/02/2014 13:15 [facility] 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 Your Goals/Additional instructions: Source: [facility] POWERCHART Document Id: [id number] Miscellaneous - Lory Villa M.D. - 12/26/2013 5:29 PM CDT Ambulatory Discharge Medication List [facility] [address], [address] [place], [place] [phone] Visit Information Name: DHIRAJ LANDA [facility] Number: [id number] Visit Date: 12/26/2013 17:29:33 Attending Provider: LORY VILLA MD Primary Care Provider: PCP, UNASSIGNED [...] nasal (Flonase 0.05 mg/inh nasal spray) 2 Lancaster(s), Nasal, two times a day fluticasone-salmeterol (Advair Diskus 250 mcg-50 mcg inhalation powder) 1 puff(s), Inhalation, two times a day multivitamin, ( Multivitamins) See Instructions 1 tab daily Stop Taking the Following Medications: Medication list as of 12-26-13 17:29 Attention: If you have any medications at home that are not on this list, DO NOT take them until youcontact your provider for clarification. Give a copy of your medication list to your primary care provider. Update your medication list any time medications or doses are changed and carry your medication list at all times in case of emergency. Electronically Signed By: LORY VILLA MD Signed On:26-DEC-2013 17:29:28 Additional Information: Source: [facility] POWERCHART Document Id: [id number] Miscellaneous - Joy Johnson LGonzaloPGonzaloN. 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 Having some bloody show and back pain with pressure LMP Date : Systolic Blood Pressure : 124 mmHg Diastolic Blood Pressure : 84 mmHg NIBP Mean : 97 mmHg Actual Weight : 95.3 kg(Converted to: 210 lb 2 oz) Dosing Weight Clinic : 95.3 kg JOY JOHNSON LPN - 12/26/2013 13:23 CDT General Info Information Given By : Patient Languages : Moroccan JOY JOHNSON [facility] - 12/26/2013 13:23 CDT Subjective Pain Symptoms : Yes JOY JOHNSON LPN - 12/26/2013 13:23 CDT Pain Pain Assessment Grid Pain 1 Location : Other: low back Laterality : Bilateral Intensity : 3 JOY JOHNSON LPN 12/26/2013 13:23 CDT Dependent Habits Tobacco Use/Currently Using : No Exposure to Tobacco Smoke : Care provider denies smoking in home, Other: former smoker Smoking Status : Former smoker JOY JOHNSON LPN - 12/26/2013 13:23 CDT Tobacco Use Grid Last Use : never JOY JOHNSON LPN 12/26/2013 13:23 CDT Alcohol Use : No JOY JOHNSON LPN 12/26/2013 13:23 CDT Caffeine Use Grid Caffeine Use : Current Type : Soft drinks Frequency : Occasionally JOY JOHNSON LPN - 12/26/2013 13:23 CDT Recreational Drug Use Grid Drug Use : None JOY JOHNSON LPN 12/26/2013 13:23 CDT Source: [facility] POWERCHART Document Id: [id number] CDT!36 documented in this encounter Plan of Treatment Not on filedocumented as of this encounter Procedures Procedure Name Priority Date/Time Associated Diagnosis Comme nts AMNIOTIC FLUID, Routine 12/26/2013 12:00 AM Resul ts for this PAMG-1 CDT procedure are i n the results section. documented in this encounter Results (ABNORMAL) Amniotic Fluid, PAMG-1 (12/26/2013 12:00 AM CDT) Analysis Performed At Patho logist Time Signature HXAmnisure Positive (A) Negative POWERCHART Comment: A positive result indicates the presence of amniotic fluid in vaginal secretions. A negative result indicates the absence of amniotic fluid. Specimen (Source) Anatomical Location Collection Method / Collectio n Time Received Time / Laterality Volume Fluid 12/26/2013 Lory Villa M.D. LAB BODY FLUIDS AND STOOLS O RDERABLES Performing Organization Address City/State/ZIP Code Phon e Number POWERCHART documented in this encounter Visit Diagnoses Not on filedocumented in this encounter
--- OUTSIDE RECORDS SUMMARY | 2022-04-07 13:19 | XMS_ITS | Encounter Summary ---
:[address] [facility] Address [address] [place] [address] Care Team Providers Name Role Phone Unavailable Primary Care Provider Unavailable Encounter Details Date Type Department Care Team Description 06/01/2013 Hospital Encounter HX [facility] Shivam Keith A, R.N. [address] [place], [place] [phone] Social History Tobacco Use Types Packs/Day Years [...] 10/23/2020 relatives? How often do you attend anabaptism or mu-ism Never 10/23/2020 services? 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 documented as of this encounter Miscellaneous Notes Telephone Encounter - Hailey Jang R.N. - 06/01/2013 12:00 AM CDT [id number] Situation/What is the patients concern/need: Patient update/inquiry Clinical Background/Recent Intervention: Sary is calling stating she is newly . She states she presented to the ER last night due to abdominal pain/cramping. She states they did a urine test to rule out bladder infection. She deniesany vaginal bleeding. She states they did do an ultrasound in the ER. She states they couldn't see anything at that time. She denies any vaginal bleeding or cramping today but is very nervous and anxious and would like to be seen. Recommendation/Patient Request: Patient scheduled at [address] Ceja. Best number(s) to reach patient: Source: [facility] Document Id: [id number] documented in this encounter Plan of Treatment Not on filedocumented as of this encounter Visit Diagnoses Not on filedocumented in this encounter
--- OUTSIDE RECORDS SUMMARY | 2022-04-07 13:19 | XMS_ITS | Encounter Summary ---
:1995 Author Organization [facility] Address [address] [place] [address] Care Team Providers Name Role Phone Unavailable Primary Care Provider Unavailable Encounter Details Date Type Department Care Team Description 12/05/2013 Hospital Encounter HX [facility] Lory Saldaña M.D. Social History [...] 10/23/2020 relatives? How often do you attend sikh or taoist Never 10/23/2020 services? 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 - 12/05/2013 7:33 PM CDT Ambulatory Patient Summary [facility] [address], [address] [place], [place] [phone] Visit Information Name: AILYN LANDAN PAWEL [facility] Number: [id number] Current Date: 12/05/2013 19:33:04 Physicians Attending Provider: LORY VILLA MD Primary [...] puffs Inhalation q4-6hr as needed for asthma This is a CHANGE albuterol-ipratropium (DuoNeb inhalation solution) 1 Each, Nebulized inhalation, four times a day asneeded for Shortness of Breath fluticasone-salmeterol (Advair Diskus 250 mcg-50 mcg inhalation powder) 1 puff(s), Inhalation, two times a day This is a CHANGE fluticasone nasal (Flonase 0.05 mg/inh nasal spray) 2 Webster(s), Nasal, two times a day montelukast (montelukast 10 mg oral tablet) 1 Tablet(s), Oral, every evening multivitamin, ( Multivitamins) See Instructions 1 tab daily Stop Taking the Following Medications: Medication list as of 12-05-13 19:33 Attention: If you have any medications at [...] Electronically Signed By: LORY VILLA MD Signed On:05-DEC-2013 19:32:57 Your Allergies & Intolerances Substance Reaction Symptoms [...] Upcoming Appointments Date Time Location Reason Provider 12/18/2013 15:20 [facility] 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 Your Goals/Additional instructions: Source: [facility] POWERCHART Document Id: [id number] Miscellaneous - Lory Villa M.D. - 12/05/2013 7:33 PM CDT Ambulatory Discharge Medication List [facility] [address] [place], [address] [place], [place] [phone] Visit Information Name: DHIRAJ LANDA [facility] Number: [id number] Visit Date: 12/05/2013 19:33:02 Attending Provider: LORY VILLA MD Primary Care [...] puffs Inhalation q4-6hr as needed for asthma This is a CHANGE albuterol-ipratropium (DuoNeb inhalation solution) 1 Each, Nebulized inhalation, four times a day asneeded for Shortness of Breath fluticasone-salmeterol (Advair Diskus 250 mcg-50 mcg inhalation powder) 1 puff(s), Inhalation, two times a day This is a CHANGE fluticasone nasal (Flonase 0.05 mg/inh nasal spray) 2 Webster(s), Nasal, two times a day montelukast (montelukast 10 mg oral tablet) 1 Tablet(s), Oral, every evening multivitamin, ( Multivitamins) See Instructions 1 tab daily Stop Taking the Following Medications: Medication list as of 12-05-13 19:33 Attention: If you have any medications at [...] Electronically Signed By: LORY VILLA MD Signed On:05-DEC-2013 19:32:57 Additional Information: Source: [facility] Document Id: [id number] Miscellaneous - Joy Johnson L.P.N. 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 LMP Date : Systolic Blood Pressure : 112 mmHg Diastolic Blood Pressure : 68 mmHg NIBP Mean : 83 mmHg Actual Weight : 92.1 kg(Converted to: 203 lb 1 oz) Dosing Weight Clinic : 92.1 kg JOY JOHNSON LPN - 12/05/2013 13:24 CDT General Info Information Given By : Patient Languages : Mauritian JOY JOHNSON LPN - 12/05/2013 13:24 CDT Subjective Pain Symptoms : No JOY JOHNSON LPN - 12/05/2013 13:24 CDT Dependent Habits Tobacco Use/Currently Using : No Exposure to Tobacco Smoke : Care provider denies smoking in home, Other: former smoker Smoking Status : Former smoker JOY JOHNSON LPN - 12/05/2013 13:24 CDT Tobacco Use Grid Last Use : never JOY JOHNSON LPN - 12/05/2013 13:24 CDT Alcohol Use : No JOY JOHNSON LPN - 12/05/2013 13:24 CDT Caffeine Use Grid Caffeine Use : Current Type : Soft drinks Frequency : Occasionally JOY JOHNSON LPN - 12/05/2013 13:24 CDT Recreational Drug Use Grid Drug Use : None JOY JOHNSON LPN - 12/05/2013 13:24 CDT Source: [facility] [employer] Document Id: [id number] CDT!30 documented in this encounter Plan of Treatment Not on filedocumented as of this encounter Visit Diagnoses Not on filedocumented in this encounter
--- OUTSIDE RECORDS SUMMARY | 2022-04-07 13:20 | XMS_ITS | Encounter Summary ---
:1995 Author Organization [facility] Address [address] [place] [address] Care Team Providers Name Role Phone Unavailable Primary Care Provider Unavailable Encounter Details Date Type Department Care Team Description 05/31/2013 Hospital Encounter HX NO MAPPING Ancelmo Benítez M.D. [address] [place] [phone] (Wo rk) Social History Tobacco Use Types [...] 10/23/2020 relatives? How often do you attend orthodox or mormon Never 10/23/2020 services? 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
--- OUTSIDE RECORDS SUMMARY | 2022-04-07 13:20 | XMS_ITS | Encounter Summary ---
:1995 Author Organization [facility] Address [address] [place] [address] Care Team Providers Name Role Phone Unavailable Primary Care Provider Unavailable Encounter Details Date Type Department Care Team Description 05/05/2012 Hospital Encounter HX [facility] Stephanie Ge M.D. Social History [...] 10/23/2020 relatives? How often do you attend taoist or hindu Never 10/23/2020 services? 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 - 05/05/2012 3:58 PM CDT [id number] CHIEF COMPLAINT/REASON FOR VISIT Repacking of abscess. HISTORY OF PRESENT ILLNESS This patient comes in with her grandmother. She is here for repacking of the abscess on her left side that we had incised and drained earlier this week on Tuesday. She says it is starting to feel betterand there is less induration. Still is some purulence drainage on the packing. PHYSICAL EXAMINATION SKIN: On exam there is less erythema around the wound it is less indurated. The cavity appears clearalthough there was some purulence drainage on the packing when it was removed. We repacked the woundusing Cetacaine for anesthesia and 1/4-inch plain gauze for packing. IMPRESSION/REPORT/PLAN Repacking of abscess. She will return on Tuesday for a nurse visit to have it repacked. It is possible that her grandmothermay be able to do this for her at home but will continue to see her for nurse visits in the meantime. Once there is no more purulent drainage on the packing, we can discontinue the packing. Stephanie Ge M.D./[employer] Electronically Signed By: STEPHANIE GE MD On: 05/09/2012 01:35 PM Source: [facility] MHSDOLBEYNONRADSYS Document Id: [id number] documented in this encounter Miscellaneous Notes Miscellaneous - Stephanie Ge M.D. - 05/05/2012 5:10 PM CDT Ambulatory Depart Summary [facility] [address] [place] [address] Visit Information Name: CARLY LANDA Visit Date: 05/05/2012 17:10:17 Attending Provider: STEPHANIE GE MD Primary Care Provider: JAMARI MCHUGH MD CARLY LANDA has been given the following list of medications: Your Medications It is important to take your medications as directed. Use a pill box or chart to help remind you to take your medications. Please let your doctor or nurse know if you have problems taking your medications. Medication/Strength Dose Route Frequency Indications/Special Instructions/Comments sulfamethoxazole-trimethoprim (Septra DS 800 mg-160 mg oral tablet) 1 tab(s) Oral two times a day for 7 Days pseudoephedrine (pseudoephedrine 30 mg oral tablet) 60 mg Oral every 6 hours as needed for cold symptoms norgestimate-ethinyl estradiol (Ortho Tri-Cyclen 35 mcg oral tablet) 1 tab(s) Oral once a day needs visit for further refills albuterol (albuterol 90 mcg/inh inhalation aerosol) See Instructions Shortness of breath / Wheezing 1-2 puffs Inhalation q4-6hr as needed for asthma fluticasone nasal (Flonase 0.05 mg/inh nasal spray) 2 spray(s) Nasal two times a day fluticasone-salmeterol (Advair Diskus 250 mcg-50 mcg inhalation powder) 1 puff(s) Inhalation two times a day albuterol-ipratropium (DuoNeb inhalation solution) 1 each Nebulized inhalation four times a day as needed for Shortness of Breath montelukast (Singulair 5 mg oral tablet, chewable) 1 tab(s) Oral every evening Attention: If you have any medications at home that are not on this list, DO NOT take them until youcontact your provider for clarification. Additional Information: Source: [facility] POWERCHART Document Id: [id number] Miscellaneous - Stephanie Ge M.D. - 05/05/2012 5:10 PM CDT Ambulatory Patient Summary [address] [place] [address] Visit Information Name: CARLY LANDA Current Date: 05/05/2012 17:10:18 Physicians Attending Provider: STEPHANIE GE MD Primary Care Provider: JAMARI MCHUGH MD Your Medications Here is a list of your medications. It is important to take your medications as directed. Use a pillbox or chart to help remind you to take your medications. Please let your doctor or nurse know if you have problems taking your medications. Medication/Strength Dose Route Frequency Indications/Special Instructions/Comments sulfamethoxazole-trimethoprim (Septra DS 800 mg-160 mg oral tablet) 1 tab(s) Oral two times a day for 7 Days pseudoephedrine (pseudoephedrine 30 mg oral tablet) 60 mg Oral every 6 hours as needed for cold symptoms norgestimate-ethinyl estradiol (Ortho Tri-Cyclen 35 mcg oral tablet) 1 tab(s) Oral once a day needs visit for further refills albuterol (albuterol 90 mcg/inh inhalation aerosol) See Instructions Shortness of breath / Wheezing 1-2 puffs Inhalation q4-6hr as needed for asthma fluticasone nasal (Flonase 0.05 mg/inh nasal spray) 2 spray(s) Nasal two times a day fluticasone-salmeterol (Advair Diskus 250 mcg-50 mcg inhalation powder) 1 puff(s) Inhalation two times a day albuterol-ipratropium (DuoNeb inhalation solution) 1 each Nebulized inhalation four times a day as needed for Shortness of Breath montelukast (Singulair 5 mg oral tablet, chewable) 1 tab(s) Oral every evening Attention: If you have any medications at home that are not on this list, DO NOT take them until youcontact your provider for clarification. Your Allergies & Intolerances Substance Reaction Symptoms Category Comments Suprax Drug Your Problem List Problem Status Onset Comments Allergic asthma NOS with status asthmaticus Active 06/02/11 date of onset unknown Asthma NOS (493.90) Active 05/01/12 unknown date of dx Your Upcoming Appointments Date Time Location Reason Provider 05/08/2012 15:45 [facility] Family Med REPACK WOUND Your Goals/Additional instructions: Source: [facility] POWERCHART Document Id: [id number] Miscellaneous - Jeanette Dennison L.P.N. - 05/05/2012 4:03 PM CDT Pediatric Certified Surgical First Assistant Intake/History Pediatric Certified Surgical First Assistant Intake/History Entered On: 05/05/2012 16:06 CDT Performed On: 05/05/2012 16:03 CDT by JEANETTE DENNISON Intake Chief Complaint : recheck of abcess inner left thigh Temperature Core : 37.0C(Converted to: 98.6DegF) Peripheral Pulse Rate : 72/min Systolic Blood Pressure : 100mmHg Diastolic Blood Pressure : 60mmHg NIBP Mean : 73mmHg BP Location : Left upper extremity Blood Pressure Cuff Size : Regular JEANETTE DENNISON - 05/05/2012 16:03 CDT Subjective Pain Symptoms : No JEANETTE DENNISON - 05/05/2012 16:03 CDT Dependent Habits Tobacco Use/Currently Using : No Exposure to Tobacco Smoke : Care provider denies smoking in home Smoking Status : Never smoker JEANETTE DENNISON - 05/05/2012 16:03 CDT Tobacco Use Grid Last Use : never JEANETTE DENNISON - 05/05/2012 16:03 CDT Caffeine Use Grid Caffeine Use : Current Type : Soft drinks Frequency : Occasionally JEANETTE DENNISON - 05/05/2012 16:03 CDT Recreational Drug Use Grid Drug Use : None JEANETTE DENNISON 05/05/2012 16:03 CDT Allergy Allergies (Active) Suprax Estimated Onset Date: Unspecified ; Created By: JENNIFER ARCHIBALD LPN; Reaction Status: Active ; Category: Drug ; Substance: Suprax ; Type: Allergy ; Updated By: JENNIFER ARCHIBALD LPN; Reviewed Date: 05/01/2012 16:08 CDT Source: [facility] [employer] Document Id: [id number] documented in this encounter Plan of Treatment Not on filedocumented as of this encounter Visit Diagnoses Not on filedocumented in this encounter
--- OUTSIDE RECORDS SUMMARY | 2022-04-07 13:20 | XMS_ITS | Encounter Summary ---
:1995 Author Organization [facility] Address [address] [place] [address] Care Team Providers Name Role Phone Unavailable Primary Care Provider Unavailable Encounter Details Date Type Department Care Team Description 05/12/2012 Hospital Encounter HX [facility] Pako Felix III, M.D. [address] [place] [phone] (Wo rk) Social History Tobacco Use Types [...] 10/23/2020 relatives? How often do you attend pentecostal or yarsanism Never 10/23/2020 services? 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 0 2 11/04/2017 (for_ADVAIR DISKUS) 250-50 mcg/dose diskus inhaler documented as of this encounter Plan of Treatment Not on filedocumented as of this encounter Visit Diagnoses Not on filedocumented in this encounter
--- OUTSIDE RECORDS SUMMARY | 2022-04-07 13:20 | XMS_ITS | Encounter Summary ---
:1995 Author Organization [facility] Address [address] [place] [address] Care Team Providers Name Role Phone Unavailable Primary Care Provider Unavailable Encounter Details Date Type Department Care Team Description 03/19/2013 Hospital Encounter HX [facility] Stephanie Ge M.D. Social [...] How often do you attend confucianist or bahai Never 10/23/2020 services? 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 Last Filed Vital Signs Vital Sign Reading Time Taken Comments Blood Pressure 90/58 03/19/2013 1:00 PM CDT Pulse 92 03/19/2013 1:00 PM CDT Temperature - - Respiratory Rate 18 03/19/2013 1:00 PM CDT Oxygen Saturation - - Inhaled Oxygen Concentration - - Weight 71.5 kg (157 lb 10.1 oz) 03/19/2013 1:00 PM CDT Height 169 cm (5' 6.54) 03/19/2013 1:00 PM CDT Body Mass Index 25.03 03/19/2013 1:00 PM CDT Body Mass Index Percentile 81.89 % 03/19/2013 1:00 PM CD T Growth Chart: [facility] (Girls, 2-20 Years) documented in this encounter Medications at Time of Discharge Medication Sig Dispensed Refills Start Date End Date albuterol (for_ACCUNEB) one unit dose qid 0 12/0409/25/2018 2.5 mg /3 mL nebulizer and q2hr prn solution fluticasone-salmeterol Inhale 1 puff. 0 2 11/04/2017 (for_ADVAIR DISKUS) 250-50 mcg/dose diskus inhaler documented as of this encounter Progress Notes Stephanie Ge M.D. - 03/19/2013 12:46 PM CDT [id number] CHIEF COMPLAINT/REASON FOR VISIT Dhiraj is here because she has had some congestion, watery eyes, increased wheezing, coughing and runny nose for the past 4 days. She has a history of seasonal allergies and allergies to animals. She is on Advair, Flonase, Singulair, and albuterol and needs refills, but she says she has not been out a nd she has been taking them. She filled out the asthma action plan today. Her total score is 21. In general she is doing okay with her asthma. She denies any purulent sinus drainage, no fever. She has not been exposed to any infectious diseases that she knows of. PHYSICAL EXAMINATION VITAL SIGNS: She is afebrile. Heart rate is 92. Respirations 18. Blood pressure 90/58. Oxygen saturation 97%. GENERAL: She is in no acute distress. HEENT: Her tympanic membranes are clear. Pharynx is clear. NECK: Supple without lymphadenopathy. LUNGS: Clear. IMPRESSION/REPORT/PLAN Asthma exacerbation. PLAN: I refilled all of her medications. We will in addition start her on a Medrol dosepak. If this does not help or if she starts running a fever or showing signs of an infectious process she will letus know. Stephanie Ge M.D./[facility] Electronically Signed By: STEPHANIE GE MD On: 03/19/2013 04:18 PM Source: [facility] MHSDOLBEYNONRADSYS Document Id: [id number] documented in this encounter Procedure Notes Jennifer Medellin L.PGonzaloNGonzalo - 03/19/2013 11:35 AM CDT Asthma Control Test (12 yrs and older) Asthma Control Test (12 yrs and older) Entered On: 03/20/2013 11:35 CDT Performed On: 03/19/2013 11:35 CDT by JENNIFER MEDELLIN LPN ACT Past 4 weeks asthma interfered with work, school, or home : None of the Time Past 4 weeks how often short of breath : Once or twice a week Past 4 weeks symptoms effect sleep : Once or twice Past 4 weeks how often inhaler or nebulizer used : Once a week or less Past 4 weeks rate your asthma control : Well controlled ACT Score : 21 JENNIFER MEDELLIN LPN - 03/20/2013 11:35 CDT Source: [facility] POWERCHART Document Id: [id number] CDT!8 documented in this encounter Miscellaneous Notes Miscellaneous - Jennifer Medellin L.PGonzaloNGonzalo - 03/20/2013 11:38 AM CDT Quality Measures Quality Measures Entered On: 03/20/2013 11:39 CDT Performed On: 03/20/2013 11:38 CDT by JENNIFER MEDELLIN LPN Asthma Asthma Control Test (ACT) Score : 21 ED visits past yr for asthma w/o hospital stay : 0 Hospitalizations/Overnight Stays in Past yr for Asthma : 0 Asthma Action Plan Provided/Reviewed : Reviewed with the patient Asthma Action Plan Copy : Scanned into EMR JENNIFER MEDELLIN LPN - 03/20/2013 11:38 CDT Source: [facility] [employer] Document Id: [id number] CDT!7 Miscellaneous - Stephanie Ge M.D. - 03/19/2013 1:34 PM CDT Ambulatory Patient Summary [address] [address] Visit Information Name: DHIRAJ LANDA [facility] Number: [id number] Current Date: 03/19/2013 13:34:20 Physicians Attending Provider: STEPHANIE GE MD Primary Care Provider: JAMARI MCHUGH MD Your Medications Here is a list of your medications. It is important to take your medications as directed. Use a pillbox or chart to help remind you to take your medications. Please let your doctor or nurse know if you have problems taking your medications. Medication/Strength Dose Route Frequency Indications/Special Instructions/Comments/Notes methylPREDNISolone (Medrol Dosepak 4 mg oral tablet) See special instructions Oral as directed for 6Days montelukast (montelukast 10 mg oral tablet) 10 mg Oral every evening albuterol (albuterol 90 mcg/inh inhalation aerosol) See Instructions Shortness of breath / Wheezing 1-2 puffs Inhalation q4-6hr as needed for asthma fluticasone-salmeterol (Advair Diskus 250 mcg-50 mcg inhalation powder) 1 puff(s) Inhalation two times a day fluticasone nasal (Flonase 0.05 mg/inh nasal spray) 2 spray(s) Nasal two times a day albuterol (albuterol 90 mcg/inh inhalation aerosol) 2 puff(s) Inhalation four times a day as needed for Shortness of breath / Wheezing norgestimate-ethinyl estradiol (Ortho Tri-Cyclen 35 mcg oral tablet) 1 tab(s) Oral once a day needs visit for further refills albuterol-ipratropium (DuoNeb inhalation solution) 1 each Nebulized inhalation four times a day as needed for Shortness of Breath Attention: If you have any medications at home that are not on this list, DO NOT take them until youcontact your provider for clarification. Your Allergies & Intolerances Substance Reaction Symptoms Category Comments Suprax Drug Your Problem List Problem Status Onset Comments Asthma NOS (493.90) Active 05/01/12 unknown date of dx Your Upcoming Appointments Date Time Location Reason Provider No Appointments found Your Goals/Additional instructions: Source: [facility] POWERCHART Document Id: [id number] Miscellaneous - Stephanie Ge M.D. - 03/19/2013 1:34 PM CDT Ambulatory Depart Summary [address] [address] Visit Information Name: DHIRAJ LANDA [facility] Number: [id number] Visit Date: 03/19/2013 13:34:20 Attending Provider: STEPHANIE GE MD Primary Care Provider: JAMARI MCHUGH MD GORDOSTEPHKYLEDHIRAJ PAWEL has been given the following list of medications: Your Medications It is important to take your medications as directed. Use a pill box or chart to help remind you to take your medications. Please let your doctor or nurse know if you have problems taking your medications. Medication/Strength Dose Route Frequency Indications/Special Instructions/Comments/Notes methylPREDNISolone (Medrol Dosepak 4 mg oral tablet) See special instructions Oral as directed for 6Days montelukast (montelukast 10 mg oral tablet) 10 mg Oral every evening albuterol (albuterol 90 mcg/inh inhalation aerosol) See Instructions Shortness of breath / Wheezing 1-2 puffs Inhalation q4-6hr as needed for asthma fluticasone-salmeterol (Advair Diskus 250 mcg-50 mcg inhalation powder) 1 puff(s) Inhalation two times a day fluticasone nasal (Flonase 0.05 mg/inh nasal spray) 2 spray(s) Nasal two times a day albuterol (albuterol 90 mcg/inh inhalation aerosol) 2 puff(s) Inhalation four times a day as needed for Shortness of breath / Wheezing norgestimate-ethinyl estradiol (Ortho Tri-Cyclen 35 mcg oral tablet) 1 tab(s) Oral once a day needs visit for further refills albuterol-ipratropium (DuoNeb inhalation solution) 1 each Nebulized inhalation four times a day as needed for Shortness of Breath Attention: If you have any medications at home that are not on this list, DO NOT take them until youcontact your provider for clarification. Additional Information: Source: [facility] POWERCHART Document Id: [id number] Miscellaneous - Dorian Davenport, L.P.N. - 03/19/2013 1:00 PM CDT Adult Methods Analyst Data Processing Intake/History Adult Methods Analyst Data Processing Intake/History Entered On: 03/19/2013 13:03 CDT Performed On: 03/19/2013 13:00 CDT by DORIAN DAVENPORT LPN Intake Chief Complaint : Congestion, runny nose, watery eyes, coughing, difficulty breathing x4 days. Temperature Core : 36.2 DegC(Converted to: 97.2 DegF) (LOW) Peripheral Pulse Rate : 92 /min Respiratory Rate : 18 /min Systolic Blood Pressure : 90 mmHg (LOW) Diastolic Blood Pressure : 58 mmHg NIBP Mean : 69 mmHg BP Location : Right upper extremity Blood Pressure Cuff Size : Regular SpO2 : 97 % Oxygen Therapy : Room air Height : 169 cm(Converted to: 5 ft 7 inch(es), 66.54 inch(es)) Actual Weight : 71.5 kg(Converted to: 157 lb 10 oz) Weight Source : Standing scale Dosing Weight Clinic : 71.5 kg Clinic BSA : 1.83 Body Mass Index : 25.03 kg/m2 DORIAN DAVENPORT LPN - 03/19/2013 13:00 CDT General Info Information Given By : Patient Preferred Communication Mode : Verbal Languages : Thai DORIAN DAVENPORT LPN - 03/19/2013 13:00 CDT Subjective Pain Symptoms : No DORIAN DAVENPORT LPN - 03/19/2013 13:00 CDT Dependent Habits Tobacco Use/Currently Using : No Exposure to Tobacco Smoke : Care provider denies smoking in home Smoking Status : Never smoker DORIAN DAVENPORT LPN - 03/19/2013 13:00 CDT Tobacco Use Grid Last Use : never DORIAN DAVENPORT LPN - 03/19/2013 13:00 CDT Alcohol Use : No DORIAN DAVENPORT LPN - 03/19/2013 13:00 CDT Caffeine Use Grid Caffeine Use : Current Type : Soft drinks Frequency : Occasionally DORIAN DAVENPORT LPN - 03/19/2013 13:00 CDT Recreational Drug Use Grid Drug Use : None DORIAN DAVENPORT LPN - 03/19/2013 13:00 CDT Source: [employer] Document Id: [id number] CDT!41 Miscellaneous - Dorian Davenport L.P.N. - 03/19/2013 1:00 PM CDT Health Assessment Health Assessment Entered On: 03/19/2013 13:04 CDT Performed On: 03/19/2013 13:00 CDT by DORIAN DAVENPORT LPN Health Assessment Complete Health Assessment Complete or Modified : Annual Health Assessment Annual Health Assessment Completed : Yes DORIAN DAVENPORT LPN - 03/19/2013 13:00 CDT Nutrition Nutrition Risk Factors by History Adult : None DORIAN DAVENPORT LPN - 03/19/2013 13:00 CDT Functional Current Daily Living Assistance : None DORIAN DAVENPORT LPN - 03/19/2013 13:00 CDT Dependent Habits Tobacco Use/Currently Using : No Exposure to Tobacco Smoke : Care provider denies smoking in home Smoking Status : Never smoker DORIAN DAVENPORT LPN - 03/19/2013 13:00 CDT Tobacco Use Grid Last Use : never DORIAN DAVENPORT LPN - 03/19/2013 13:00 CDT Alcohol Use : No DORIAN DAVENPORT LPN - 03/19/2013 13:00 CDT Caffeine Use Grid Caffeine Use : Current Type : Soft drinks Frequency : Occasionally DORIAN DAVENPORT LPN - 03/19/2013 13:00 CDT Recreational Drug Use Grid Drug Use : None DORIAN DAVENPORT LPN - 03/19/2013 13:00 CDT Psychosocial Domestic Abuse Concerns : None DORIAN DAVENPORT LPN - 03/19/2013 13:00 CDT Advance Directive Advanced Directives : No DORIAN DAVENPORT LPN - 03/19/2013 13:00 CDT Educ Needs Learning Style Preference Adult Grid Patient : None Family : None DORIAN DAVENPORT LPN - 03/19/2013 13:00 CDT Source: [employer] Document Id: [id number] CDT!32 documented in this encounter Plan of Treatment Not on filedocumented as of this encounter Visit Diagnoses Not on filedocumented in this encounter
--- OUTSIDE RECORDS SUMMARY | 2022-04-07 13:20 | XMS_ITS | Encounter Summary ---
:1995 Author Organization [facility] Address [address] [place] [address] Care Team Providers Name Role Phone Unavailable Primary Care Provider Unavailable Encounter Details Date Type Department Care Team Description 05/30/2013 Hospital Encounter HX [facility] Iva Sam, SHAYE N, C.N.P. [address] [place], [place] [phone] (Wo rk) Social History [...] How often do you attend jainism or voodoo Never 10/23/2020 services? 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 [facility] Document Id: [id number] Telephone Encounter - Hailey Jang R.N. - 05/30/2013 12:00 AM CDT [id number] Triage/Phone Nurse: 'How many periods have you missed?' TWO. Have you done a home test? YES - Which is this for you? FIRST . Do you have any of the following health problems? Diabetes High Blood Pressure Kidney or Liver disease Heart problems Previous Blood Clots Received treatment for cancer Are you currently on any medications for depression or anxiety Any other health problems * * * NO TO ALL THE ABOVE: 1. LMP 03/24/13 AFSHAN 12/29/13 2. Number of pregnancies: 1 Number of live births 0 3. The initial OB visit is routinely scheduled between 8-10 weeks of . this first visit will be with our Nurse Practitioner. Expected first appt 05/19/13 to 06/02/13. 4. The first visit will be an hour appointment that will include obtaining a complete health historyand a physical exam. The physical exam may include a pap smear (if needed or if due) and lab work. 5. You will also be obtaining initial information and information regarding what to expectduring your care. 6. You are encouraged to start taking a multivitamin if you are not already taking. vitamins may be obtained over the counter. 7. We would encourage you to abstain from alcohol now that is known. 8. If you smoke, we would also encourage you to stop smoking as well. If you need assistance to quitsmoking, we would be happy to assist you with this. Source: [facility] Document Id: [id number] Electronically signed by Stuart, [facility] Training Development Manager [id number] at 01/10/2017 8:48 PM CDT documented in this encounter Plan of Treatment Not on filedocumented as of this encounter Visit Diagnoses Not on filedocumented in this encounter
--- OUTSIDE RECORDS SUMMARY | 2022-04-07 13:20 | XMS_ITS | Encounter Summary ---
:1995 Author Organization [facility] Address [address] [place] [address] Care Team Providers Name Role Phone Unavailable Primary Care Provider Unavailable Encounter Details Date Type Department Care Team Description 04/26/2012 Hospital Encounter HX [facility] ED Juana Zabala , P.A.-C. [address] [place] [address] [phone] (Wo rk) Social History Tobacco [...] How often do you attend congregational or baptism Never 10/23/2020 services? 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 - 04/29/2012 11:36 AM CDT ED Discharge Instructions [id number] [place] [address] Name: DHIRAJ LNADA Date of : 1995 12:00 AM Visit Date: 04/26/2012 9:32 PM Address: [address] [place] [phone] Primary Care Provider: JAMARI MCHUGH MD IMPORTANT: [facility] in [place] would like to thank you for allowing us to assist you with your healthcare needs. The following includes patient education materials and informationregarding your injury/illness. Chief Complaint: Eruption of skin; rash on left thigh Follow-Up Instructions: With: Address: When: Follow up with primary care provider Within 2 - 4 days Comments: For recheck Patient Education Materials: [id number] CELLULITIS You have an infection of the skin known as cellulitis. This usually starts with a scrape, cut, insect bite, blister or other opening in the skin which becomes infected. This is a serious condition. It must be watched closely to be sure the infection is not spreading. With antibiotic treatment, the size of the red area will gradually shrink in size until the skin returns to normal. This will take 7-10 days. The red area should never increase in size once the antibiotic medicine has been started. Occasionally, an infection will be resistant to one antibiotic and another one will have to be used. HOME CARE: 1) Limit the use of the affected part, since excess movement can cause the infection to spread. 2) If the infection is on your leg, walk as little as possible during the first few days of the treatment. Keep your leg elevated while sitting. This will reduce swelling. 3) Take all of the antibiotic medicine exactly as directed until it is gone. Be careful not to miss any doses, especially during the first seven days. FOLLOW UP with your doctor or this facility as directed. Check the infected area daily for the warning signs listed below. GET PROMPT MEDICAL ATTENTION if any of the following occur: -- Spreading area of redness -- Increasing swelling or pain -- Appearance of pus or drainage -- Fever over 100.4?? F (38.0?? C) oral, or over 101.4?? F (38.6 C) rectal, after two days on antibiotics ?? [id number] [employer], [address] [place] [address], [place] [address]. All rights reserved. This information is not intended as a substitute for professional medical care. Always follow your healthcare professional's instructions. ED Tests and Procedures: Order Status Discharge Prescriptions & Home Medications: Medication/Strength Dose Route Frequency Indications/Special Instructions/Comments amoxicillin-clavulanate (amoxicillin-clavulanate 875 mg-125 mg oral tablet) 1 tab(s) Oral two times a day for 10 Days norgestimate-ethinyl estradiol (Ortho Tri-Cyclen 35 mcg oral [...] tablet, chewable) 1 tab(s) Oral every evening Comment: Attention: If you have any medications at home not on this list, DO NOT take them until you contact your provider for clarification. Medication Reconciliation: Reconciliation is a process of identifying the most accurate list of all medications a patient is taking - including name, dosage, frequency, and route - and using this list to provide to the patient information about how to take those medications. DHIRAJ LANDAor designee has reviewed the home medications you have listed with us. Review the following instructions: You have NOT received any prescriptions and you have told us you are not currently taking any home medications You have NOT received any prescriptions. You have been provided a discharge medications list and you may CONTINUE taking your medications as previously prescribed by your regular providers. You have received the listed prescriptions and BEGIN all listed prescriptions as directed. Since you have listed no home medications, please check with your family doctor if you are taking any other medications. You have received the listed prescriptions and BEGIN all listed prescriptions as directed. Youhave been provided a discharge medications list and you may CONTINUE all home medications as previously prescribed by your regular providers. You have received the listed prescriptions and BEGIN all listed prescriptions as directed. Youhave been provided a discharge medications list. The following CHANGES have been made to your medication list; Otherwise, CONTINUE all home medications as previously prescribed by your regular provider. IMPORTANT: We examined and treated you today [...] arrange a ride home with a responsible green party. I, DHIRAJ LANDA , or responsible green party have received this information and my questions have been answered. I have discussed any challenges I see with this plan with the nurse or physician. Patient Signature or Responsible Democrat/Relationship Date/Time Provider Signature Date/Time Medication Reconciliation: Reconciliation is a process of identifying the most accurate list of all medications a patient is taking - including name, dosage, frequency, and route - and using this list to provide to the patient information about how to take those medications. DHIRAJ LANDA has reviewed the home medications you have listed with us. Review the following instructions: You have NOT received any prescriptions and you have told us you are not currently taking any home medications You have NOT received any prescriptions. You have been provided a discharge medications list and you may CONTINUE taking your medications as previously prescribed by your regular providers. You have received the listed prescriptions and BEGIN all listed prescriptions as directed. Since you have listed no home medications, please check with your family doctor if you are taking any other medications. You have received the listed prescriptions and BEGIN all listed prescriptions as directed. Youhave been provided a discharge medications list and you may CONTINUE all home medications as previously prescribed by your regular providers. You have received the listed prescriptions and BEGIN all listed prescriptions as directed. Youhave been provided a discharge medications list. The following CHANGES have been made to your medication list; Otherwise, CONTINUE all home medications as previously prescribed by your regular provider. IMPORTANT: We examined and treated you today [...] arrange a ride home with a responsible green party. I, DHIRAJ LANDA , or responsible green party have received this information and my questions have been answered. I have discussed any challenges I see with this plan with the nurse or physician. Patient Signature or Responsible Democrat/Relationship Date/Time Provider Signature Date/Time Source: [facility] [employer]ART Document Id: [id number] Vandana Marsh, RGonzaloN. - 04/29/2012 11:36 AM CDT ED Depart Summary [facility] Emergency Department Clinical Discharge Summary PERSON INFORMATION Name DHIRAJ LANDA Age 17 Years 1995 12:00 AM Sex Female Language Moroccan PCP JAMARI MCHUGH MD Marital Status Single Visit Id Visit Reason Eruption of skin; rash on left thigh Specialty Enc Type Emergency Med Service Emergency Medicine Referred by Track Group [facility] ED Discharge 04/26/2012 11:00 PM Tracking Id [id number] Checkout 04/27/2012 11:01 AM Checkin 04/26/2012 9:32 PM Acuity Dispo Type * Discharged to Home or Self Care Arrival 04/26/2012 9:32 PM Reg Status LOS 000 13:29 Address: [address] [place] [address] [place] [phone] Comment: PROVIDER INFORMATION Provider Role Provider Contact Time JUANA ZABALA ED Provider 04/26/12 22:01 JAMARI MCHUGH MD ED Provider 04/27/12 08:28 DIAGNOSIS Cellulitis of the leg 682.6 Comment: PATIENT EDUCATION INFORMATION Instructions: CELLULITIS Follow up: With: Address: When: Follow up with primary care provider Within 2 - 4 days Comments: For recheck Source: [facility] [employer] Document Id: [id number] documented in this encounter Medications at Time of Discharge Medication Sig Dispensed Refills Start Date End Date albuterol (for_ACCUNEB) one unit dose qid 0 12/0409/25/2018 2.5 mg /3 mL nebulizer and q2hr prn solution fluticasone-salmeterol Inhale 1 puff. 0 2 11/04/2017 (for_ADVAIR DISKUS) 250-50 mcg/dose diskus inhaler documented as of this encounter Nursing Notes Chandni Higgins, RGonzaloN. - 04/26/2012 9:38 PM CDT ED Primary Assessment ED Primary Assessment Entered On: 04/26/2012 21:43 CDT Performed On: 04/26/2012 21:38 CDT by CHANDNI HIGGINS RN Reason For Visit Problems(Active) Allergic asthma NOS with status asthmaticus Name of Problem: Allergic asthma NOS with status asthmaticus ; Recorder: JENNIFER ARCHIBALD LPN; Confirmation: Confirmed ; Classification: Nursing ; Code: 1231 ; Contributor System: [employer] ; Last Updated: 09/29/2010 17:17 IGNITER CAPPER ; Life Cycle Date: 09/29/2010 ;Life Cycle Status: Active ; Responsible Provider: JENNIFER ARCHIBALD LPN; Vocabulary: ICD-9-CM ; Comments: 06/02/2011 17:13 CONSUELO HURST LPN date of onset unknown Asthma NOS (493.90) Name of Problem: Asthma NOS (493.90) ; Recorder: ENEIDA ENCISO NP; Confirmation: Confirmed ; Classification: Medical ; Code: 1231 ; Last Updated: 02/15/2012 9:50 CDT ; Life Cycle Date: 02/15/2012 ; Life Cycle Status: Active ; Vocabulary: ICD-9-CM Closed fracture of tibia and fibula Name of Problem: Closed fracture of tibia and fibula ; Onset Date: 03/02/2007 ; Recorder: JENNIFER ARCHIBALD LPN; Confirmation: Confirmed ; Classification: Nursing ; Code: 1231 ; Contributor System: [employer] ; Last Updated: 09/29/2010 14:18 IGNITER CAPPER ; Life Cycle Date: 09/15 ; Life Cycle Status: Active ; Responsible Provider: JENNIFER ARCHIBALD LPN; Vocabulary: ICD-9-CM Diagnoses(Active) Eruption of skin Date: 04/26/2012 ; Diagnosis Type: Reason For Visit ; Confirmation: Complaint of ; Clinical Dx: Eruption of skin ; Classification: Medical ; Clinical Service: Emergency medicine ; Code: PNED ; Probability: 0 ; Diagnosis Code: [id number] Triage Chief Complaint Description : 17 year old female admits with eruption on inner thigh of left leg. Ptdenies having a bug bite or pimple there. Pt states she noticed it this am but redeness worse tonight Information Given By : Patient, Mother Accompanied By : Grandparent, Mother Mode of Arrival ED : Private vehicle Track : Medical Languages : Moroccan CHANDNI HIGGINS RN - 04/26/2012 21:38 CDT Pain Assessment Pain Symptoms : Yes CHANDNI HIGGINS RN - 04/26/2012 21:38 CDT Pain Pain Assessment Grid Pain 1 Location : Upper leg Laterality : Left Intensity : 6 CHANDNI HIGGINS RN - 04/26/2012 21:38 CDT ED Physician Notification Time ED Physician Notification Time : 04/26/2012 21:41 CDT CHANDNI HIGGINS RN - 04/26/2012 21:38 CDT Allergy Allergies (Active) Suprax Estimated Onset Date: Unspecified ; Created By: JENNIFER ARCHIBALD LPN; Reaction Status: Active ; Category: Drug ; Substance: Suprax ; Type: Allergy ; Updated By: JENNIFER ARCHIBALD LPN; Reviewed Date: 02/15/2012 7:14 CDT Respiratory Airway : Patent Respirations : Unlabored Respiratory Pattern : Regular CHANDNI HIGGINS RN - 04/26/2012 21:38 CDT Cardiovascular Heart Rhythm : Regular Skin Color : Normal for ethnicity Skin Description : Dry Skin Temperature : Warm CHANDNI HIGGINS RN - 04/26/2012 21:38 CDT Neurological Last Well Time Known : Not applicable Level of Consciousness : Alert Orientation : Oriented x 3 Characteristics of Speech : Appropriate for age CHANDNI HIGGINS RN - 04/26/2012 21:38 CDT ED Psychosocial Affect/Behavior : Calm Domestic Abuse Concerns : None CHANDNI HIGGINS RN - 04/26/2012 21:38 CDT Gastrointestinal Nutrition ED : Adequate CHANDNI HIGGINS RN - 04/26/2012 21:38 CDT Incision/Wound Incision/Wound Care Grid Activity : Assessed Type : Other: cyst like swellin kylah pt's inner thigh CHANDNI HIGGINS RN - 04/26/2012 21:38 CDT Musculoskeletal Fall Prevention Education Provided : Yes CHANDNI HIGGINS RN - 04/26/2012 21:38 CDT Social Habits Tobacco Use/Currently Using : No Exposure to Tobacco Smoke : Care provider denies smoking in home Smoking Status : Never smoker CHANDNI HIGGINS RN - 04/26/2012 21:38 CDT Alcohol Use Grid Alcohol Use : No CHANDNI HIGGINS RN - 04/26/2012 21:38 CDT Recreational Drug Use Grid Drug Use : None CHANDNI HIGGINS RN - 04/26/2012 21:38 CDT Source: [facility] [employer] Document Id: [id number] documented in this encounter ED Notes Juana Zabala PGonzaloADerrek - 04/26/2012 10:02 PM CDT Skin Problem *ED Patient: DHIRAJ LANDA Age: 17 years Sex: Female : 1995 Author: JUANA ZABALA Attachments: None Associated Diagnosis: Cellulitis of the leg 682.6 Basic Information Time seen: Immediately upon arrival. History source: Patient, mother. Arrival mode: Private vehicle. History limitation: None. History of Present Illness The patient presents with abscess. The onset was 2 days ago. The course/duration of symptoms is worsening. Location: Left lower extremity. The character of symptoms is pain, swelling and redness. Radiating symptom(s): none. The degree of symptoms is moderate. Risk factors consist of none. Prior episodes: none. Therapy today: over the counter medications including Ibuprofen 600 mg. Associated symptoms: fever and myalgia. Pt noted a small pimple on inner left thigh 2 days ago. Attempted to pop it. Gradual increase in redness and swelling with significant increase this afternoon. C/o fever, achiness. No n/v. Denies h/o MRSA or risk.. Review of Systems Constitutional symptoms: Fever. Skin symptoms: Negative except as documented in HPI. Eye symptoms: Negative except as documented in HPI. ENMT symptoms: Negative except as documented in HPI. Respiratory symptoms: Negative except as documented in HPI. Cardiovascular symptoms: Negative except as documented in HPI. Gastrointestinal symptoms: Negative except as documented in HPI. Genitourinary symptoms: Negative except as documented in HPI. Musculoskeletal symptoms: Negative except as documented in HPI. Neurologic symptoms: Negative except as documented in HPI. Psychiatric symptoms: Negative except as documented in HPI. Endocrine symptoms: Negative except as documented in HPI. Hematologic/Lymphatic symptoms: Negative except as documented in HPI. Allergy/immunologic symptoms: Negative except as documented in HPI. Health Status Allergies: , Allergic Reactions (Selected) Severity Not Documented Suprax- No reactions were documented.Mom is unsure what allergic reaction was to Suprax. Pt was 2 yoat time. No allergy to pcn drugs.. Past Medical/ Family/ Social History Medical history: . No active or resolved past medical history items have been selected or recorded. Surgical history: . Tonsillectomy, primary or secondary; younger than age 12 ([id number]) in 1999 at 5 Years. Family history: . No family history items have been selected or recorded. Physical Examination Vital Signs Vital Signs. 04/26/2012 21:43 CDT Temperature Core 37 C Peripheral Pulse Rate 96 /min HI Respiratory Rate 16 /min Systolic Blood Pressure 117 mmHg Diastolic Blood Pressure 61 mmHg BP Location Right upper General: Alert and no acute distress. Skin: Warm, dry and Left inner thigh with approx 3x5 cm firm erythematous induration with surrounding erythema. Nonfluctuant. Tender on palpation. Increased warmth in area. No streaking. No drainage. Area marked in skin pen.. Head: Normocephalic. Eye: Pupils are equal, round and reactive to light. Neurological: Alert and oriented to person, place, time, and situation. Psychiatric: Cooperative and appropriate mood & affect. Medical Decision Making OrdersLaunch Orders. Pharmacy: amoxicillin-clavulanate 875 mg-125 mg oral tablet (Order Processing): 875 mg, PO, Once Impression and Plan Diagnosis Cellulitis of the leg 682.6 (Discharge, Emergency medicine, Medical) Plan Condition: Improved, Stable. Disposition: Discharged: to home. 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 Pharmacy: amoxicillin-clavulanate 875 mg-125 mg oral tablet (Ordered): 1 tab(s), PO, 2xDay, 20 tab(s) Patient was given the following educational materials: CELLULITIS, CELLULITIS. Limitations: No sports. Follow up with: ; Follow up with primary care provider Within 2 - 4 days For recheck. Counseled: Patient, Family. Notes: Warm packs to area. Ibuprofen 600 mg every 6 hours as needed. Take with food. Recheck 2-3 days; sooner if new or worsening symptoms.. Electronically Signed By: JUANA ZABALA On: 04/26/2012 11:39 PM Modified by and Electronically Signed by: JUANA ZABALA On: 04/26/2012 11:39 PM Source: [facility] [employer]OWERCHART Document Id: [id number] documented in this encounter Miscellaneous Notes Miscellaneous - Kristin Woods, RGonzaloN. - 04/26/2012 9:32 PM CDT Facility Charge Ticket Facility Charge Ticket Entered On: 04/27/2012 8:52 CDT Performed On: 04/26/2012 21:32 CDT by KRISTIN WOODS RN Facility Charge TVL Level for Facility Charge Ticket : Level 2 Mode of Arrival ED : Private vehicle [facility] Mode of Arrival Interpreted : Standard [facility] Process Management : None [facility] Order Management : None 30 Minutes Critical Care : No [facility] Nursing Assessment : Triage and 1-2 nursing assessments [facility] Disposition : Discharge [facility] Total Points with Diagnosis Control : 4 [facility] Visit Level : 24810 Level 2 KRISTIN WOODS RN - 04/27/2012 8:52 CDT [facility] Document Id: [id number] documented in this encounter Plan of Treatment Not on filedocumented as of this encounter Visit Diagnoses Not on filedocumented in this encounter
--- OUTSIDE RECORDS SUMMARY | 2022-04-07 13:20 | XMS_ITS | Encounter Summary ---
:1995 Author Organization [facility] Address [address] [place] [address] Care Team Providers Name Role Phone Unavailable Primary Care Provider Unavailable Encounter Details Date Type Department Care Team Description 05/03/2012 Hospital Encounter HX [facility] Johnnie Walls M.D. [address] [place] [phone] (Wo rk) Social History Tobacco Use Types [...] often do you attend oriental orthodox or yazidi Never 10/23/2020 services? 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 0 2 11/04/2017 (for_ADVAIR DISKUS) 250-50 mcg/dose diskus inhaler documented as of this encounter Progress Notes Cornelio Johnson R.N. - 05/03/2012 4:52 PM CDT Wound Care Wound Care Entered On: 05/03/2012 16:58 CDT Performed On: 05/03/2012 16:52 CDT by CORNELIO JOHNSON RN Integumentary Pain Symptoms : Yes CORNELIO JOHNSON RN - 05/03/2012 16:52 CDT Incision/Wound Incision/Wound Care Grid Activity : Dressing changed Type : Surgical incision Location : Upper leg Laterality : Left, Medial Description : Drainage/Exudate, Edges approximated, Edges , Tunneling, Undermining Color : [place] Drainage : Bloody, Serosanguineous Drainage Amount : Small Surrounding Tissue : Bruised, Edema, Erythema, Induration (Comment: Per patient and parent, sx improved. Decreased redness, swelling, and induration. Continues on antibiotics as prescribed. [CORNELIO JOHNSON RN - 05/03/2012 16:52 CDT] ) Wound Dressing : 2x2's, Band-Aid, Light packing Comment : Cetacaine applied prior to procedure. Patient became lightheaded during procedure; recovered quickly. Tolerated with minimal distress. No c/o or difficulties post procedure. Ambulated out of the clinic without distress. CORNELIO JOHNSON RN - 05/03/2012 16:52 CDT Pain Pain Assessment Grid Pain 1 Location : Upper leg Laterality : Left Time Pattern : Intermittent Aggravating Factors : Movement, Palpation CORNELIO JOHNSON RN - 05/03/2012 16:52 CDT [facility] Document Id: [id number] documented in this encounter Nursing Notes Cornelio Johnson R.N. - 05/03/2012 5:00 PM CDT Wound repack Patient's mother called stating Dr. Mejia had requested they return for a nurse only visit to repack wound to left thigh. Had I&D of absess to left upper leg, medial. Per Julia Saucedo PA-C.,verbal orders given to this nurse for Cetacaine application and repacking of dressing to wound. See wound care documentation. Electronically Signed By: CORNELIO JOHNSON RN On: 05/03/2012 05:01 PM Source: [facility] POWERCHART Document Id: [id number] documented in this encounter Plan of Treatment Not on filedocumented as of this encounter Visit Diagnoses Not on filedocumented in this encounter
--- OUTSIDE RECORDS SUMMARY | 2022-04-07 13:20 | XMS_ITS | Encounter Summary ---
:1995 Author Organization [facility] Address [address] [place] [id number] Care Team Providers Name Role Phone Unavailable Primary Care Provider Unavailable Encounter Details Date Type Department Care Team Description 12/07/2011 Hospital Encounter HX [facility] [place] Lewis, Awa gr, P.A.-Guillermina [address] [place] [address] (Wo rk) Social History Tobacco [...] How often do you attend restorationism or roman catholic Never 10/23/2020 services? 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 as of this encounter Last Filed Vital Signs Vital Sign Reading Time Taken Comments Blood Pressure 80/54 12/07/2011 9:02 AM CDT Pulse 84 12/07/2011 9:02 AM CDT Temperature - - Respiratory Rate 16 12/07/2011 9:02 AM CDT Oxygen Saturation - - Inhaled Oxygen Concentration - - Weight 72.6 kg (160 lb 0.9 oz) 12/07/2011 9:02 AM CDT Height - - Body Mass Index - - documented in this encounter Medications at Time of Discharge Medication Sig Dispensed Refills Start Date End Date albuterol (for_ACCUNEB) one unit dose qid 0 12/0409/25/2018 2.5 mg /3 mL nebulizer and q2hr prn solution documented as of this encounter Progress Notes Julia Arreola - 12/07/2011 12:00 AM CDT [id number] Document Contains Addenda CHIEF COMPLAINT/REASON FOR VISIT This is a 16-year-old female seen today. Her mom is waiting in the [employer]. She is complaining of a sore throat for the past week or so. HISTORY OF PRESENT ILLNESS She states that she has always also had some nasal congestion. She feels postnasal drainage. Her ears have been hurting off and on. They have also felt plugged. She has had a little bit of a cough. She has been very tired and run down and not feeling well. In further discussion, asking her about if she has been sexually active or not, she does admit that she has been and is not currently on control. This led me to start a discussion about the use of control. She is interested but is hesitant because her parents do not know. She states that she has been using condoms, but has not ever been on any control and is not sure how to go about getting it. CURRENT MEDICATIONS Advair discus one puff twice daily. Albuterol inhaler as needed. DuoNeb inhalation as needed. Flonase nasal spray two sprays each nostril twice daily. Singulair 5 mg tablets one tablet by mouth daily. ALLERGIES Suprax. PAST MEDICAL/SURGICAL HISTORY Past medical history and surgical history are reviewed in the EMR. VITAL SIGNS Temperature is 37, heart rate 84, respirations 16, blood pressure 80/54. Weight 72.6 kg. PHYSICAL EXAMINATION GENERAL: She is alert, interactive and cooperative. Appears to be well-nourished, well-hydrated, in no acute distress. Affect is good. She is able to have a good discussion. HEENT: Head is normocephalic, atraumatic. TMs are clear with normal landmarks and normal light reflex. Canals are clear. Sclerae and conjunctive are clear. Nares are slightly congested. Maxillary sinuses are nontender to palpation. Oral mucosa is pink and moist. Posterior pharynx is erythematous. Tonsils are enlarged about 2+ with exudate. NECK: Neck is supple. She does have palpable and tender cervical lymphadenopathy. LUNGS: Lungs sound clear to auscultation bilaterally. No wheezes. HEART: Regular rate and rhythm. LABORATORY DATA: Rapid strep test was negative. Wilcox was positive. IMPRESSION/REPORT/PLAN 1. Mononucleosis. PLAN: Information was given both to Dhiraj and her mom about this being a virus that is contagious through saliva. I advised her to stay away from any contact sports or activities. We discussed enlargement of her spleen, discussed that the fatigue and symptoms can last for a couple of months and she should be active as tolerated. 2. Need for contraception. This was a private discussion with her mother out of the room. I did highly recommend Dhiraj to get started on some sort of control to protect herself against . I advised the importance of continuing to use condoms as well. I actually did start her on Ortho Tri-Cyclen one tablet as needed, explained how to use it, answered her questions, and explained risks. She is not sure if she will fill it at this time. I did encourage her to talk with her parents about this. I also talked with Dhiraj about the necessity for chlamydia and gonorrhea screening once one has become sexually active. She is unable to leave a urine sample today. She has voided more recently than two hours ago. I discussed with her that this is an important screening test and advise her to try to return as soon as possible for this. We discussed other options for control as well including the Implanon injections and Depo-Provera injections. She actually was interested in the Implanon, but should discuss this with her mother prior to having it done. I did prescribe a 3-month supply. I would like her to follow up with me in three months and let me know how things are going. If she needs refills. ADDENDUM: I actually contacted her mother following the visit to let her know the positive mono test. At that time, her mom talked with me privately over the phone about Dhiraj's depression and suicidal ideation three days prior. Unfortunately, none of this came up in my discussion with Sary. Mom states that they are concerned. She is seeing a therapist. She is not suicidal at this time. They are concerned about possible drug use and wondering about doing a drug screening. I investigated this a bit and passed on the information that I believe that the test results of a drug screen would be confidential to her parents without consent from Dhiraj. I did advise her that urine drug screening kits were available at local pharmacies. This would be another option but she should continue to talk with her and work with her therapist. I offered any further help if we can be of service. I suggested that they maybe talk with her therapist about the possibility of using medical intervention for her depression as well. PATIENT EDUCATION: Ready to learn No apparent learning barriers were identified Learning preferences include listening Explained diagnosis and treatment plan Patient/Child/Caregiver expressed understanding of the content Julia Arreola P.A.-C /anthony Electronically Signed By: JULIA ARREOLA On: 12/14/2011 02:09 PM Source: [facility] MHSDOLBEYNONRADSYS Document Id: [id number] documented in this encounter Miscellaneous Notes Miscellaneous - Julia Arreola - 12/07/2011 5:23 PM CDT Ambulatory Depart Summary [id number] [place] [address] Visit Information Name: SYEDA DHIRAJLOTUS ARMAS Visit Date: 12/07/2011 17:23:17 Attending Provider: JULIA ARREOLA Primary Care Provider: JAMARI MCHUGH MD DHIRAJ LANDA has been given the following list of medications: Your Medications It is important to take your medications as directed. Use a pill box or chart to help remind you to take your medications. Please let your doctor or nurse know if you have problems taking your medications. Medication/Strength Dose Route Frequency Indications/Special Instructions/Comments norgestimate-ethinyl estradiol (Ortho Tri-Cyclen 35 mcg oral tablet) 1 tab(s) Oral once a day albuterol (albuterol 90 mcg/inh inhalation aerosol) See [...] your provider for clarification. Additional Information: Source: [facility] POWERCHART Document Id: [id number] Miscellaneous - Julia Arreola - 12/07/2011 5:23 PM CDT Ambulatory Patient Summary [address] [address] Visit Information Name: DHIRAJ LANDA Current Date: 12/07/2011 17:23:18 Physicians Attending Provider: JULIA ARREOLA Primary Care Provider: JAMARI MCHUGH MD Your Medications Here is a list of your medications. It is important to take your medications as directed. Use a pillbox or chart to help remind you to take your medications. Please let your doctor or nurse know if you have problems taking your medications. Medication/Strength Dose Route Frequency Indications/Special Instructions/Comments norgestimate-ethinyl estradiol (Ortho Tri-Cyclen 35 mcg oral tablet) 1 tab(s) Oral once a day albuterol (albuterol 90 mcg/inh inhalation aerosol) See [...] Your Problem List Problem Status Onset Comments Closed fracture of tibia and fibula Active 03/02/2007 Allergic asthma NOS with status asthmaticus Active date of onset unknown Your Upcoming Appointments Date Time Location Reason Provider No Appointments found Your Goals/Additional instructions: Source: [facility] POWERCHART Document Id: [id number] Miscellaneous - Conversion, Historical Provider Ser - 12/07/2011 9:02 AM CDT Pediatric Cleaning Maid Intake/History Pediatric Cleaning Maid Intake/History Entered On: 12/07/2011 9:04 CDT Performed On: 12/07/2011 9:02 CDT by ERWIN COLON LPN Intake Chief Complaint : sinus pressure, sore throat , ears hurt, not feeling good for about a week, sinus drainage, fever last Tue Temperature Core : 37C(Converted to: 98.6DegF) Peripheral Pulse Rate : 84/min Respiratory Rate : 16/min Systolic Blood Pressure : 80mmHg (<LLOW) Diastolic Blood Pressure : 54mmHg NIBP Mean : 63mmHg Actual Weight : 72.6kg(Converted to: 160lb 1oz) Dosing Weight Clinic : 72.60kg ERWIN COLON LPN - 12/07/2011 9:02 CDT Subjective Pain Symptoms : Yes ERWIN COLON [facility] - 12/07/2011 9:02 CDT Pain Pain Assessment Grid Pain 1 Location : Throat Intensity : 3 ERWIN COLON [facility] - 12/07/2011 9:02 CDT Dependent Habits Tobacco Use/Currently Using : No Smoking Status : Never smoker ERWIN COLON [facility] - 12/07/2011 9:02 CDT Caffeine Use Grid Caffeine Use : Current Type : Soft drinks Frequency : Daily ERWIN COLON [facility] - 12/07/2011 9:02 CDT Recreational Drug Use Grid Drug Use : None ERWIN COLON [facility] - 12/07/2011 9:02 CDT Allergy Allergies (Active) Suprax Estimated Onset Date: Unspecified ; Created By: JENNIFER ARCHIBALD LPN; Reaction Status: Active ; Category: Drug ; Substance: Suprax ; Type: Allergy ; Updated By: JENNIFER ARCHIBALD LPN; Reviewed Date: 07/29/2011 16:53 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 RAPID STREP A SCREEN Routine 12/07/2011 9:33 AM R esults for this CDT procedure are i n the results section. RAPID STREP A SCREEN Routine 12/07/2011 9:33 AM R esults for this CDT procedure are i n the results section. documented in this encounter Results (ABNORMAL) Mononucleosis Screen, POCT (12/07/2011 9:35 AM CDT) [facility] gist Method Time Signature Infectious (POSITIVE) POWERCHART Wilcox Test, S HXFinal Positive POWERCHART HXFinal Reference: POWERCHART Negative Specimen (Source) Anatomical Collection Method Collection Time Re ceived Time Location / / Volume Laterality Blood 12/07/2011 9:35 AM CDT Julia Lewis P.A.-C. LAB POCT ORDERABLES-MANUAL Performing Organization Address City/[facility] Phon e Number POWERCHART Rapid Strep A Screen (12/07/2011 9:33 AM CDT) [facility] [place] Method Time Signature HXRapid Strep POWERCHART Confirmation HXPre Negative for POWERCHART Group A Strep by culture. HXFinal Negative for POWERCHART Group A Strep by culture. Specimen Anatomical Collection Method Collection Time Receive d Time (Source) Location / / Volume Laterality Throat 12/07/2011 9:33 AM 2 9:33 CDT AM CDT Julia Arreola P.A.-C. LAB MICROBIOLOGY - GENERAL O RDERABLES Performing Organization Address [facility] Phon e Number POWERCHART Rapid Strep A Screen (12/07/2011 9:33 AM CDT) [facility] [place] Method Time Signature HXStrep A POWERCHART Screen Rapid HXFinal Negative for POWERCHART Strep Group A by rapid screen. HXFinal Culture POWERCHART confirmation to follow. Specimen (Source) Anatomical Collection Method Collection Time Re ceived Time Location / / Volume Laterality Throat 12/07/2011 9:33 AM CDT Julia Arreola P.A.-C. LAB MICROBIOLOGY - GENERAL O RDERABLES Performing Organization Address City/[facility] Phon e Number POWERCHART documented in this encounter Visit Diagnoses Not on filedocumented in this encounter
--- OUTSIDE RECORDS SUMMARY | 2022-04-07 13:20 | XMS_ITS | Encounter Summary ---
:1995 Author Organization [facility] Address [address] [place] [address] Care Team Providers Name Role Phone Unavailable Primary Care Provider Unavailable Encounter Details Date Type Department Care Team Description 09/29/2010 Hospital Encounter HX [facility] [place] Johnnie Mchugh M.D. [address] [place] [phone] (Wo rk) Social History Tobacco Use Types [...] How often do you attend religion or christian Never 10/23/2020 services? 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 - 09/29/2010 12:00 AM CST [id number] IMPRESSION/REPORT/PLAN Right otitis media. Patient was given Z-North as directed on the pack. Prescriptions are sent to local pharmacy. Discharge instructions are given. CHIEF COMPLAINT/REASON FOR VISIT Pain in right ear. HISTORY OF PRESENT ILLNESS This 15 year-old female presents to the clinic with pain in the right ear. Patient states the pain started this morning. She also noticed some serosanguineous drainage. Also has some cold symptoms. CURRENT MEDICATIONS Advair and Singulair. PAST MEDICAL HISTORY/SURGICAL HISTORY Asthma. VITAL SIGNS Vital signs are reviewed. PHYSICAL EXAMINATION HEENT: the right ear is red. The TM has decrease in mobility and scattered light reflex on the right side. Minimal postnasal drainage. NECK: neck is supple. LUNGS: chest is clear. Jamari Mchugh M.D. / Electronically Signed By: JAMARI MCHUGH MD On: 09/30/2010 09:04 Source: [facility] MHSDOLBEYNONRADSYS Document Id: [id number] HASE PRICE ANALYST documented in this encounter Miscellaneous Notes Miscellaneous - Jamari Mchugh M.D. - 09/29/2010 5:39 PM CST Ambulatory Patient Summary [facility] - [address] [address] Visit Information Name: DHIRAJ LANDA Current Date: 09/29/2010 17:39:02 Primary Care Provider: JAMARI MCHUGH MD Your Medications Here is a list of your medications. It is important to take your medications as directed. Use a pillbox or chart to help remind you to take your medications. Please let your doctor or nurse know if you have problems taking your medications. Medication/Strength Dose Route Frequency Indications/Special Instructions/Comments azithromycin (Zithromax Z-North 250 mg oral tablet) 2 tablets on day 1, then 1 tablet on days 2-5 Oralas directed fluticasone-salmeterol (Advair Diskus 100 mcg-50 mcg inhalation powder) 1 puff(s) Inhalation two times a day albuterol (albuterol continuous neb 5 mg/NS - 25 mL) every 4 hours as needed for Shortness of breath/ Wheezing montelukast (Singulair 5 mg oral tablet, chewable) 1 tab(s) Oral every evening albuterol (albuterol) Inhalation every 4 hours as needed for Shortness of breath / Wheezing Your Allergies & Intolerances Substance Reaction Symptoms Category Comments Suprax Drug Your Problem List Problem Status Onset Comments Closed fracture of tibia and fibula Active 03/02/2007 Allergic asthma NOS with status asthmaticus Active Your Recommendations We want to make sure you get the tests, immunizations, and guidance you need to stay healthy. Here is a customized list of recommendations, based on information we have in your medical record. Your doctor may have additional recommendations for you, based on your personal medical history and risk factors. You can help us by calling us to make an appointment when you are due for your tests. Additional information regarding recommendations: Test/Treatment Last Done Next Due Additional Information Asthma Control Test every 1 year 09/29/2010 Asthma Action Plan every 1 year 09/29/2010 Screening Chlamydia every 1 year Females Age 15-24 09/29/2010 Your Upcoming Appointments Date Time Location Reason Provider No Appointments found Your Goals/Additional instructions: Source: [facility] POWERCHART Document Id: [id number] Electronically signed by Conversion, [facility] Metal Sprayer Protective Coating [id number] at 01/16/2017 11:42 AM CDT Miscellaneous - Jamari Mchugh M.D. - 09/29/2010 5:39 PM CST Ambulatory Depart Summary [facility] - [address] [id number] Visit Information Name: DHIRAJ LANDA Current Date: 09/29/2010 17:39:01 Primary Care Provider: JAMARI MCHUGH MD RAYMONDDHIRAJ WRIGHT has been given the following list of medications: Your Medications It is important to take your medications as directed. Use a pill box or chart to help remind you to take your medications. Please let your doctor or nurse know if you have problems taking your medications. Medication/Strength Dose Route Frequency Indications/Special Instructions/Comments azithromycin (Zithromax Z-North 250 mg oral tablet) 2 tablets on day 1, then 1 tablet on days 2-5 Oralas directed fluticasone-salmeterol (Advair Diskus 100 mcg-50 mcg inhalation powder) 1 puff(s) Inhalation two times a day albuterol (albuterol continuous neb 5 mg/NS - 25 mL) every 4 hours as needed for Shortness of breath/ Wheezing montelukast (Singulair 5 mg oral tablet, chewable) 1 tab(s) Oral every evening albuterol (albuterol) Inhalation every 4 hours as needed for Shortness of breath / Wheezing Additional Information: Yes - Current list of reconciled medications is provided and explained to the patient and/or family, guardian/caregiver. Source: [facility] POWERCHART Document Id: [id number] Electronically signed by [facility] [employer] [id number] at 01/16/2017 11:42 AM CDT Miscellaneous - Jennifer Medellin L.P.N. 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 Performed On: 09/29/2010 17:17 PURCHASE PRICE ANALYST by JENNIFER MEDELLIN LPN Intake Chief Complaint: right ear pain and drainage st sinus drainage Onset of Symptoms: 8 hours Temperature Oral: 37.4C(Converted to: 99.3DegF) Peripheral Pulse Rate: 88/min Respiratory Rate: 16/min Systolic Blood Pressure: 118mmHg Diastolic Blood Pressure: 62mmHg NIBP Mean: 81mmHg BP Location: Right upper extremity Heart Rhythm: Regular JENNIFER MEDELLIN LPN - 09/29/2010 17:17 PURCHASE PRICE ANALYST Subjective Pain Symptoms: Yes JENNIFER MEDELLIN LPN - 09/29/2010 17:17 PURCHASE PRICE ANALYST Pain Pain Assessment Grid Pain 1 Location: Ear Intensity: 3 JENNIFER MEDELLIN LPN - 09/29/2010 17:17 PURCHASE PRICE ANALYST Dependent Habits Tobacco Use/Currently Using: No Tobacco Use/Last 12 months: No Tobacco Use/Advised to Quit: No JENNIFER MEDELLIN LPN - 09/29/2010 17:17 PURCHASE PRICE ANALYST Allergies Allergies (Active) Suprax Estimated Onset Date: Unspecified ; Created By: JENNIFER MEDELLIN LPN; Reaction Status: Active ; Category: Drug ; Substance: Suprax ; Type: Allergy ; Updated By: JENNIFER MEDELLIN LPN; Reviewed Date: 09/29/2010 17:16 PURCHASE PRICE ANALYST [facility] Document Id: [id number] PURCHASE PRICE ANALYST!23 HASE PRICE ANALYST documented in this encounter Plan of Treatment Not on filedocumented as of this encounter Visit Diagnoses Not on filedocumented in this encounter
--- OUTSIDE RECORDS SUMMARY | 2022-04-07 13:20 | XMS_ITS | Encounter Summary ---
:1995 Author Organization [facility] Address [address] [place] [address] Care Team Providers Name Role Phone Unavailable Primary Care Provider Unavailable Encounter Details Date Type Department Care Team Description 05/10/2012 Hospital Encounter HX [facility] Pako Felix III, M.D. [address] [place] [address] [phone] (Wo rk) Social History Tobacco Use Types [...] How often do you attend mosque or mandaeism Never 10/23/2020 services? 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 - 05/10/2012 3:38 PM CDT [id number] CHIEF COMPLAINT/REASON FOR VISIT Repacking of abscess wound and evaluation of sore on the back of throat. HISTORY OF PRESENT ILLNESS Dhiraj is a 17-year-old white female seen in the office today with her mother. She has a recent history of an abscess on the inner left thigh. She has been getting that repacked. She describes pain there as approximately 3-4 out of 10 in intensity. Recent I&D produced a considerable amount of pus. She has a very small 2 cm wick in that wound. Approximately 4 days ago she began to have a sore throat, discomfort that she rates 8 out of 10 in intensity. She has noticed a spot on the back of her left tonsil that is very painful and causes pain if she talks or eats. There are no modifying factors that improve or worsen her symptoms. She denies any fevers, chills, weakness or shortness of breath. SYSTEMS REVIEW Pertinent positives and negatives are noted above. The remainder of the complete review of systems is negative. PAST MEDICAL/SURGICAL HISTORY 1. Asthma. 2. Allergies associated with asthma. PHYSICAL EXAMINATION VITAL SIGNS: Temperature is 36.7 degreesC, pulse 79, respirations 16, blood pressure 112/73, weight 71 kg. GENERAL: The patient is alert and cooperative. She is in no acute distress at this time. SKIN: Evaluation of her upper inner thigh shows a 2 cm piece of quarter inch new gauze wick. It was removed. There was minimal bleeding. The area was anesthetized with LET gel. Exploration of the woundshows a significant pocket that undermines approximately ioj-fj-iksqa centimeters in all directions.The area was explored for loculations. Once that was negative, approximately 6 cm of quarter inch new gauze was placed into the wound. HEENT: Evaluation of the back of her throat shows a single shallow ulcer on the anterior portion of the left soft palate. We used Debacterol topical oral solution to treat her ulcerated lesions of the oral cavity. IMPRESSION/REPORT/PLAN 1. Cyst. 2. Canker sore. PLAN: As noted in the physical examination, the above-noted procedures took place. Patient toleratedboth well. We will plan on seeing her back in two days for repacking of her left leg wound per nursing visit. They will let us know what it looks like at that time. Their questions were answered and reassurance was given. Robe Rosario M.D./anthony Electronically Signed By: ROBE ROSARIO III, MD On: 05/23/2012 04:05 PM Source: [facility] MHSDOLBEYNONRADSYS Document Id: [id number] documented in this encounter Miscellaneous Notes Miscellaneous - Robe Rosario M.D. - 05/10/2012 4:46 PM CDT Ambulatory Patient Summary [id number] [place] [address] Visit Information Name: DHIRAJ LANDA Current Date: 05/10/2012 16:46:07 Physicians Attending Provider: ROBE ROSARIO III, MD Primary Care Provider: JAMARI MCHUGH MD Your Medications Here is a list of your medications. It is important to take your medications as directed. Use a pillbox or chart to help remind you to take your medications. Please let your doctor or nurse know if you have problems taking your medications. Medication/Strength Dose Route Frequency Indications/Special Instructions/Comments pseudoephedrine (pseudoephedrine 30 mg oral tablet) 60 [...] Upcoming Appointments Date Time Location Reason Provider 05/12/2012 09:45 [facility] Family Med f/u leg re-packing - per Dr. Rosario - may be seen without Mother Your Goals/Additional instructions: Source: [facility] POWERCHART Document Id: [id number] Miscellaneous - Robe Rosario M.D. - 05/10/2012 4:46 PM CDT Ambulatory Depart Summary [address] [id number] Visit Information Name: DHIRAJ LANDA Visit Date: 05/10/2012 16:46:06 Attending Provider: ROBE ROSARIO III, MD Primary Care Provider: JAMARI MCHUGH MD DHIRAJ LANDA has been given the following list of medications: Your Medications It is important to take your medications as directed. Use a pill box or chart to help remind you to take your medications. Please let your doctor or nurse know if you have problems taking your medications. Medication/Strength Dose Route Frequency Indications/Special Instructions/Comments pseudoephedrine (pseudoephedrine 30 mg oral tablet) 60 [...] your provider for clarification. Additional Information: Source: [facility] POWERCHART Document Id: [id number] Miscellaneous - Chrissy Dia, L.P.N. - 05/10/2012 3:50 PM CDT Pediatric Wrecker Driver Intake/History Pediatric Wrecker Driver Intake/History Entered On: 05/10/2012 15:56 CDT Performed On: 05/10/2012 15:50 CDT by CHRISSY DIA LPN Intake Chief Complaint : here for wound check on left inner thigh. Also c/o sore throat and has a blister like area on left tonsil area since Sun. Has been on antibiotics for wound. Temperature Core : 36.7C(Converted to: 98.1DegF) Peripheral Pulse Rate : 79/min Respiratory Rate : 16/min Heart Rhythm : Regular Systolic Blood Pressure : 112mmHg Diastolic Blood Pressure : 73mmHg NIBP Mean : 86mmHg BP Location : Left upper extremity Blood Pressure Cuff Size : Regular Actual Weight : 71.0kg(Converted to: 156lb 8oz) Weight Source : Standing scale Dosing Weight Clinic : 71.00kg CHRISSY DIA LPN - 05/10/2012 15:50 CDT Subjective Pain Symptoms : Yes CHRISSY DIA LPN - 05/10/2012 15:50 CDT Pain Pain Assessment Grid Pain 1 Location : Throat Intensity : 8 CHRISSY DIA LPN - 05/10/2012 15:50 CDT Dependent Habits Tobacco Use/Currently Using : No Exposure to Tobacco Smoke : Care provider denies smoking in home Smoking Status : Never smoker CHRISSY DIA LPN - 05/10/2012 15:50 CDT Tobacco Use Grid Last Use : never CHRISSY DIA LPN - 05/10/2012 15:50 CDT Caffeine Use Grid Caffeine Use : Current Type : Soft drinks Frequency : Occasionally CHRISSY DIA LPN - 05/10/2012 15:50 CDT Recreational Drug Use Grid Drug Use : None CHRISSY DIA LPN - 05/10/2012 15:50 CDT Allergy Allergies (Active) Suprax Estimated Onset Date: Unspecified ; Created By: JENNIFER ARCHIBALD LPN; Reaction Status: Active ; Category: Drug ; Substance: Suprax ; Type: Allergy ; Updated By: JENNIFER ARCHIBALD LPN; Reviewed Date: 05/10/2012 15:46 CDT Source: [facility] POWERCHART Document Id: [id number] documented in this encounter Plan of Treatment Not on filedocumented as of this encounter Visit Diagnoses Not on filedocumented in this encounter
--- OUTSIDE RECORDS SUMMARY | 2022-04-07 13:20 | XMS_ITS | Encounter Summary ---
:1995 Author Organization [facility] Address [address] [place] [address] Care Team Providers Name Role Phone Unavailable Primary Care Provider Unavailable Encounter Details Date Type Department Care Team Description 05/31/2013 Hospital Encounter HX NO MAPPING Ancelmo Benítez M.D. [address] [place] [address] [phone] (Wo rk) Social History Tobacco [...] How often do you attend buddhism or catholic Never 10/23/2020 services? 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
--- OUTSIDE RECORDS SUMMARY | 2022-04-07 13:20 | XMS_ITS | Encounter Summary ---
:1995 Author Organization [facility] Address [address] [place] [address] Care Team Providers Name Role Phone Unavailable Primary Care Provider Unavailable Encounter Details Date Type Department Care Team Description 07/29/2011 Hospital Encounter HX [facility] ME Haven Obando, TOBI, C.N.P., D. N.P. [address] [place] [address] (Wo rk) Social History Tobacco Use Types [...] How often do you attend protestant or mu-ism Never 10/23/2020 services? 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 - 07/29/2011 12:00 AM CST [id number] CHIEF COMPLAINT/REASON FOR VISIT Left ear pain. HISTORY OF PRESENT ILLNESS The patient is a 16-year-old female who presents to clinic today with a chief complaint of left ear pain. She reports that she has been having upper respiratory infection like symptoms now for the past several days duration. She also reports that she is having decreased hearing in the left ear. She reports that she has intermittent sharp pains that come to the left ear but otherwise reports that she is otherwise feeling well. She reports that she has not been using any bzib-pue-tmxhmpj medication to help with her symptoms and states that her family members have similar upper respiratory infection like symptoms as well. PAST MEDICAL/SURGICAL HISTORY Past medical, surgical history reviewed. Please see chart. CURRENT MEDICATIONS Reviewed. Please see chart. ALLERGIES Reviewed. Please see chart. PHYSICAL EXAMINATION PHYSICAL EXAM OBJECTIVE: Patient is alert, well-nourished, acting appropriately for age. HEAD: Normocephalic/atraumatic. PUPILS: MARY. OROPHARYNX: [place] and moist. EARS: The left tympanic membrane is noted have an effusion that is present. NARES: Patent, no erythema or drainage noted. NECK: No anterior/posterior lymphadenopathy noted. HEART: Regular S1, S2, no murmurs, rubs or gallops noted. LUNGS: Clear to auscultation, no prolonged expiratory phases, wheezing, or retractions noted. SKIN: Without unusual rashes or suspicious lesions, skin turgor within normal limits and cap refill <3 seconds. IMPRESSION Left eustachian tube dysfunction. PLAN Discussed the findings at length with patient and the patient's mother. I indicated to the patient and to the patient's mother that currently this is a eustachian tube dysfunction. I also took the opportunity show the patient's mother, her tympanic membranes reassuring that no erythema was present. I went over symptom management as far as lying on the non-affected side, applying warm compresses to the left eustachian tube area, taking Sudafed fkpa-kfx-bxrgjjy as directed on package p.r.n. as a eustachian tube decongestant. I also advised chewing gum and plugging the ears. Lately, blowing pressure out of the ears may be of benefit. Indicated that if she is to develop left ear pain that is chronic and does not resolve as we are now coming upon the weekend I did opt to give him a Z-North (medication per mother's request) that was sent to [facility] though indicating only to fill per parent request. I indicated most likely in the next couple of days they will discovered that the eustachian tube should be able to drain the left tympanic membrane, if taking other measures to help alleviate the congestion. The patient and the patient's mother's stated an understanding of this plan as I will also note secondary to patient's previous visit back in May her asthma control test score was noted be 14. I did have her refill this out at today's examination in which she was noted have a total score of 20. Patient Education Ready to learn No apparent learning barriers were identified Learning preferences include listening Explained diagnosis and treatment plan Patient/Child/Caregiver expressed understanding of the content Haven Obando D.N.P., F.N.P. / Electronically Signed By: HAVEN OBANDO DNP, FNP On: 08/10/2011 11:46 AM Source: [facility] MHSDOLBEYNONRADSYS Document Id: [id number] DUE ACCOUNTS CLERK documented in this encounter Miscellaneous Notes Miscellaneous - Haven Obando D.N.P., C.N.P. - 07/29/2011 5:20 PM PAST DUE ACCOUNTS CLERK Ambulatory Patient Summary [address] [place] [address] Visit Information Name: DHIRAJ LANDA Current Date: 07/29/2011 17:20:25 Primary Care Provider: JAMARI MCHUGH MD Your Medications Here is a list of your medications. It is important to take your medications as directed. Use a pillbox or chart to help remind you to take your medications. Please let your doctor or nurse know if you have problems taking your medications. Medication/Strength Dose Route Frequency Indications/Special Instructions/Comments azithromycin (Azithromycin 5 Day Dose Pack 250 mg oral tablet) 2 tablets on day 1, then 1 tablet on days 2-5 Oral as directed for 5 Days (please only fill if per parent request.) fluticasone nasal (Flonase 0.05 mg/inh nasal spray) [...] asthmaticus Active date of onset unknown Your Recommendations We want to make sure [...] Information Asthma Control Test every 1 year 07/29/2011 07/28/2012 Asthma Action Plan every 1 year 06/02/2011 06/01/2012 Screening Chlamydia every 1 year Females Age 16-24 07/29/2011 Your Upcoming Appointments Date Time Location Reason Provider No Appointments found Your Goals/Additional instructions: Source: [facility] POWERCHART Document Id: [id number] DUE ACCOUNTS CLERK Miscellaneous - Haven Obando D.N.P., C.N.P. - 07/29/2011 5:20 PM PAST DUE ACCOUNTS CLERK Ambulatory Depart Summary [address] [place] [address] Visit Information Name: DHIRAJ LANDA Current Date: 07/29/2011 17:20:24 Physicians Attending Physician: HAVEN OBANDO DNP, PATIENT ACCOUNT ANALYST Primary Care Provider: JAMARI MCHUGH MD DHIRAJ LANDA has been given the following list of medications: Your Medications It is important to take your medications as directed. Use a pill box or chart to help remind you to take your medications. Please let your doctor or nurse know if you have problems taking your medications. Medication/Strength Dose Route Frequency Indications/Special Instructions/Comments azithromycin (Azithromycin 5 Day Dose Pack 250 mg oral tablet) 2 tablets on day 1, then 1 tablet on days 2-5 Oral as directed for 5 Days (please only fill if per parent request.) fluticasone nasal (Flonase 0.05 mg/inh nasal spray) [...] to the patient and/or family, guardian/caregiver. Source: [facility] POWERCHART Document Id: [id number] DUE ACCOUNTS CLERK Miscellaneous - Haven Obando, D.N.PGonzalo, C.N.P. - 07/29/2011 5:19 PM PAST DUE ACCOUNTS CLERK Quality Measures Quality Measures Entered On: 07/29/2011 17:19 PAST DUE ACCOUNTS CLERK Performed On: 07/29/2011 17:19 PAST DUE ACCOUNTS CLERK by HAVEN OBANDO DNP, FNP Asthma Asthma Control Test (ACT) Score : 20 HAVEN OBANDO DNP, FNP - 07/29/2011 17:19 PAST DUE ACCOUNTS CLERK Source: [facility] LumetaCHART Document Id: [id number] PAST DUE ACCOUNTS CLERK!3 DUE ACCOUNTS CLERK Miscellaneous - Conversion, Historical Provider Ser - 07/29/2011 4:51 PM PAST DUE ACCOUNTS CLERK Pediatric Saxophone Player Intake/History Pediatric Saxophone Player Intake/History Entered On: 07/29/2011 16:53 PAST DUE ACCOUNTS CLERK Performed On: 07/29/2011 16:51 PAST DUE ACCOUNTS CLERK by ERWIN COLON LPN Intake Chief Complaint : left ear pain for 3-4 days, feels plugged up, worse at NOC, no other sx Temperature Core : 36.7C(Converted to: 98.1DegF) Peripheral Pulse Rate : 76/min Respiratory Rate : 16/min Systolic Blood Pressure : 104mmHg Diastolic Blood Pressure : 60mmHg NIBP Mean : 75mmHg Actual Weight : 74.5kg(Converted to: 164lb 4oz) Dosing Weight Clinic : 74.50kg ERWIN COLON LPN - 07/29/2011 16:51 PAST DUE ACCOUNTS CLERK Subjective Pain Symptoms : Yes ERWIN COLON LPN - 07/29/2011 16:51 PAST DUE ACCOUNTS CLERK Pain Pain Assessment Grid Pain 1 Location : Ear Laterality : Left Intensity : 3 ERWIN COLON LPN - 07/29/2011 16:51 PAST DUE ACCOUNTS CLERK Dependent Habits Tobacco Use/Currently Using : No Smoking Status : Never smoker ERWIN COLON LPN - 07/29/2011 16:51 PAST DUE ACCOUNTS CLERK Caffeine Use Grid Caffeine Use : Current Type : Soft drinks Frequency : Daily ERWIN COLON LPN - 07/29/2011 16:51 PAST DUE ACCOUNTS CLERK Recreational Drug Use Grid Drug Use : None ERWIN COLON LPN - 07/29/2011 16:51 PAST DUE ACCOUNTS CLERK Allergy Allergies (Active) Suprax Estimated Onset Date: Unspecified ; Created By: JENNIFER ARCHIBALD LPN; Reaction Status: Active ; Category: Drug ; Substance: Suprax ; Type: Allergy ; Updated By: JENNIFER ARCHIBALD LPN; Reviewed Date: 10/23/2010 9:07 PAST DUE ACCOUNTS CLERK Source: [facility] OMsignal Document Id: [id number] PAST DUE ACCOUNTS CLERK!30 documented in this encounter Plan of Treatment Not on filedocumented as of this encounter Visit Diagnoses Not on filedocumented in this encounter
--- OUTSIDE RECORDS SUMMARY | 2022-04-07 13:20 | XMS_ITS | Encounter Summary ---
:1995 Author Organization [facility] Address [address] [place] [address] Care Team Providers Name Role Phone Unavailable Primary Care Provider Unavailable Encounter Details Date Type Department Care Team Description 04/14/2013 Hospital Encounter HX [facility] FAMILY DC Kelvin Greer M.D. [address] [place] [address] [phone] (Wo rk) Social History Tobacco Use Types [...] How often do you attend confucianism or jew Never 10/23/2020 services? 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 documented as of this encounter H&P Notes Sebastian Greer M.D. - 04/14/2013 8:42 AM CDT [id number] CHIEF COMPLAINT/REASON FOR VISIT Sore throat in a young adult age 18. HISTORY OF PRESENT ILLNESS She just returned to college. She has not been urinating much recently. She doesn't like to swallow because of the pain. She has a suspected allergy to amoxicillin. It is really not substantiated, however, and she also has an allergy to Suprax. She is returning to school in three days' time. No emesis. No diarrhea. PHYSICAL EXAMINATION GENERAL: Patient looks to be moderately ill. VITAL SIGNS: Temperature 37.7 degrees, 72 beats, 14 respirations, 100/60 blood pressure. ENT: Tonsils are red, swollen with exudate greater on the right, white and patchy. Tender submandibular nodes bilaterally. Her oral mucosa surfaces are apparently dry. LUNGS: Clear. SKIN: Without rash. Her skin turgor, however. IMPRESSION/REPORT/PLAN Exudative tonsillitis and dehydration. Tonsils hurt extensively. Regarding the way to manage this, we will stay away from amoxicillin because of the question of her having allergies are uncertain and not documented. Instead, we will give Zithromax 500 mg daily for six days. Recommended ibuprofen and ample fluid resuscitation with Gatorade, popsicles, and whatever else may be satisfying to her appetite. Stable condition. Recheck if not improved in 2 days. Sebastian Greer M.D./anthony Electronically Signed By: SEBASTIAN GREER MD On: 04/15/2013 08:35 AM Source: [facility] [id number] Document Id: [id number] documented in this encounter Miscellaneous Notes Miscellaneous - Conversion, Historical Provider Ser - 04/23/2013 9:27 AM CDT clarify rx Document Contains Addenda Addendum by ALEJANDRA ROSA V on 23 April 2013 16:13:50 CDT [facility] updated Addendum by SEBASTIAN GREER MD on 23 April 2013 14:17:24 CDT From: SEBASTIAN GREER MD To: ALEJANDRA ROSA V; Sent: 04/23/2013 14:17:24 CDT Subject: RE: clarify rx Actions: Notify patient of results, Notify patient- refer to General Message No, Diflucan meant to be QOD. Every other day. Thanks. [place] From: ALEJANDRA ROSA V To: SEBASTIAN GREER MD; ALEJANDRA ROSA V; Sent: 04/23/2013 09:27:37 CDT Subject: clarify rx [facility] called about diflucan rx you sent yesterday.Is it a one time dose of two tabs or do you want to order more pills as you ordered q48h . Please advise [facility]: [id number] Miscellaneous - Betzaida Kahn M.D. - 04/21/2013 2:29 PM CDT Wantjose j Lyman Took Zithromax for respiratory illness last week. Now has vaginal itch with odorous discharge. Asked for meds 04/18, no answer. Advised DIFLUCAN 150 mg will be called in, but there is no guarantee that her symptoms are caused by yeast. If not improved, will need exam. Also discussed use of monistat type products. She uses tampons, so would do well with this option. Nadeem PEREZ Source: [facility] Document Id: [id number] Miscellaneous - Daniela Tan R.N. - 04/18/2013 1:58 PM CDT Med request Document Contains Addenda Addendum by SEBASTIAN GREER MD on 22 April 2013 10:09:18 CDT From: SEBASTIAN GREER MD To: DANIELA BATISTA RN; Sent: 04/22/2013 10:09:18 CDT Subject: RE: Med request Rx'd diflucan to [facility]. Please inform From: DANIELA BATISTA RN To: SEBASTIAN GREER MD; Sent: 04/18/2013 13:58:53 CDT Subject: Med request Pt requests rx for yeast infection treament. Pt was seen 04/14 for tonsilitis and placed on ABX. Now c/o vaginal itching. Pt thinks she has a yeast inf from the abx. Pt would like prescription for Diflucan sent to [facility]. Please consider and send rx if you agree. Pt phone [phone] Source: [facility] POWERCHART Document Id: [id number] Miscellaneous - Sebastian Greer M.D. - 04/14/2013 9:28 AM CDT Ambulatory Depart Summary [address] [address] Visit Information Name: RAYMONDDHIRAJ WRIGHT PAWEL [facility] Number: [id number] Visit Date: 04/14/2013 09:28:56 Attending Provider: SEBASTIAN GREER MD Primary Care Provider: JAMARI MCHUGH MD DHIRAJ JOSEPH has been given the following list of medications: Your Medications It is important to take your medications as directed. Use a pill box or chart to help remind you to take your medications. Please let your doctor or nurse know if you have problems taking your medications. Medication/Strength Dose Route Frequency Indications/Special Instructions/Comments/Notes azithromycin (Zithromax 250 mg oral tablet) See Instructions 250 mg tab bid x 6 days montelukast (montelukast 10 mg oral tablet) 10 [...] youcontact your provider for clarification. Additional Information: Yes - . Source: [facility] POWERCHART Document Id: [id number] Miscellaneous - Sebastian Greer M.D. - 04/14/2013 9:28 AM CDT Ambulatory Patient Summary [id number] [place] [address] Visit Information Name: DHIRAJ JOSEPH [facility] Number: [id number] Current Date: 04/14/2013 09:28:57 Physicians Attending Provider: SEBASTIAN GREER MD Primary Care Provider: JAMARI MCHUGH MD Your Medications Here is a list of your medications. It is important to take your medications as directed. Use a pillbox or chart to help remind you to take your medications. Please let your doctor or nurse know if you have problems taking your medications. 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/History Entered On: 04/14/2013 9:00 CDT Performed On: 04/14/2013 8:58 CDT by JUANA DENNISON Intake Chief Complaint : not feeling well since with sore throat, chills, body aches, fevers of 102.0 Temperature Core : 37.7 DegC(Converted to: 99.9 DegF) Peripheral Pulse Rate : 72 /min Respiratory Rate : 14 /min Heart Rhythm : Regular Systolic Blood Pressure : 110 mmHg Diastolic Blood Pressure : 60 mmHg NIBP Mean : 77 mmHg BP Location : Left upper extremity Blood Pressure Cuff Size : Regular Actual Weight : 73.3 kg(Converted to: 161 lb 10 oz) Dosing Weight Clinic : 73.3 kg JUANA DENNISON - 04/14/2013 8:58 CDT General Info Information Given By : Patient Languages : Egyptian JUANA DENNISON - 04/14/2013 8:58 CDT Subjective Pain Symptoms : Yes JUANA DENNISON 04/14/2013 8:58 CDT Pain Pain Assessment Grid Pain 1 Location : Throat Intensity : 10 JUANA DENNISON 04/14/2013 8:58 CDT Dependent Habits Tobacco Use/Currently Using : No Exposure to Tobacco Smoke : Care provider denies smoking in home Smoking Status : Never smoker JUANA DENNISON - 04/14/2013 8:58 CDT Tobacco Use Grid Last Use : never JUANA DENNISON - 04/14/2013 8:58 CDT Caffeine Use Grid Caffeine Use : Current Type : Soft drinks Frequency : Occasionally DENNISON, JUANA - 04/14/2013 8:58 CDT Recreational Drug Use Grid Drug Use : None ELLIS DENNISONN - 04/14/2013 8:58 CDT Source: [facility] POWERCHART Document Id: [id number]!39 documented in this encounter Plan of Treatment Not on filedocumented as of this encounter Procedures Procedure Name Priority Date/Time Associated Diagnosis Comme nts RAPID STREP A Routine 04/14/2013 9:05 AM Results for this SCREEN CDT procedure are i n the results section. RAPID STREP A Routine 04/14/2013 9:05 AM Results for this SCREEN CDT procedure are i n the results section. documented in this encounter Results Rapid Strep A Screen (04/14/2013 9:05 AM CDT) [facility] [employer] Method Time Signature HXRapid Strep POWERCHART Confirmation HXPre Negative for POWERCHART Group A Strep by culture. HXFinal Negative for POWERCHART Group A Strep by culture. Specimen Anatomical Collection Method Collection Time Receive d Time (Source) Location / / Volume Laterality Throat 04/14/2013 9:05 AM 3 9:05 CDT AM CDT Sebastian Greer M.D. LAB MICROBIOLOGY - GENERAL O GILBERTO Performing Organization Address City/[facility] [[email or web address]] Code Phon e Number POWERCHART Rapid Strep A Screen (04/14/2013 9:05 AM CDT) [facility] Method Time Signature HXStrep A POWERCHART Screen Rapid HXFinal Negative for POWERCHART Strep Group A by rapid screen. HXFinal Culture POWERCHART confirmation to follow. Specimen (Source) Anatomical Collection Method Collection Time Re ceived Time Location / / Volume Laterality Throat 04/14/2013 9:05 AM CDT Sebastian Greer M.D. LAB MICROBIOLOGY - GENERAL O RDERAMANDY Performing Organization Address City/State/ZIP Code Phon e Number POWERCHART documented in this encounter Visit Diagnoses Not on filedocumented in this encounter
--- OUTSIDE RECORDS SUMMARY | 2022-04-07 13:20 | XMS_ITS | Encounter Summary ---
:1995 Author Organization [facility] Address [address] [place] [address] Care Team Providers Name Role Phone Unavailable Primary Care Provider Unavailable Encounter Details Date Type Department Care Team Description 05/31/2013 Hospital Encounter HX NO MAPPING Provider, Historical Social History Tobacco Use Types Packs/Day Years [...] How often do you attend congregational or zoroastrian Never 10/23/2020 services? 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 Pager: Birthdate: 1995 Sex: F Address: City: [place] [id number] Service: [facility] [place]IEF COMPLAINT / PURPOSE OF VISIT Triage nurse call: Carly Joseph is a 18 year old woman with possible symptoms of labor or miscarriage Abdominal pain today, 9 weeks . Calling from: [phone] HISTORY OF PRESENT ILLNESS: 1. Possible symptoms of labor or miscarriage Current Knowledge of gestational age 9 Weeks (calculated as 9 weeks gestation) Suspected labor or miscarriage New lower abdominal pain or cramping, or pelvic pressure or contractions, with or without lower backpain Pain scale - related pain 4 PERTINENT NEGATIVES No: vaginal bleeding or brownish, pink or blood-tinged vaginal discharge No: currently feeling like you are going to collapse every time you stand or sit up No: diarrhea ; vomiting ; fever of more than 100.4 F (38 C) or suspected fever ; painful or frequenturination, cloudy or offensive-smelling urine, or urgent need to urinate or loss of appetite (missedmore than one meal) No: confirmed intrauterine No: personal history of previous ectopic ; personal history of surgery to fallopian tubes ; personal history of intrauterine Device (IUD) ; personal history of currently undergoing infertility treatments or personal history of history of pelvic infections such as pelvic inflammatory disease or sexually transmitted infections IMPRESSION / REPORT / PLAN: 1. Possible symptoms of labor or miscarriage Mild pain or cramping in an unconfirmed intrauterine of less than 23 weeks Plan: Provider Advice 12 hours. Caller agrees Carepoints reviewed: ?? Contact the nurse line for further advice if you notice any of these signs and symptoms: new pain, pain that is worse or has changed, a fever greater than 100.4 ( 38 C), or lightheadedness. FINAL CALL DETAILS: Deliver call summary through email - Not eligible Intended level of care if assessment was not available: Emergency department Caller verbalized an understanding of the information and instructions given Caller's primary language: Hebrew PERTINENT NEGATIVES No: charts accessed (none selected from list) Source: [facility] RWHXTRANSXRTFSYS Document Id: [id number] documented in this encounter Plan of Treatment Not on filedocumented as of this encounter Visit Diagnoses Not on filedocumented in this encounter
--- OUTSIDE RECORDS SUMMARY | 2022-04-07 13:20 | XMS_ITS | Encounter Summary ---
:1995 Author Organization [facility] Address [address] [place] [id number] Care Team Providers Name Role Phone Unavailable Primary Care Provider Unavailable Encounter Details Date Type Department Care Team Description 12/12/2011 Hospital Encounter HX [facility] ED Ramsey Kahn M.D. [address] [place], [place] [address] (Wo rk) Social History [...] How often do you attend spiritism or mandaeism Never 10/23/2020 services? 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 - 12/12/2011 8:13 AM CDT ED Discharge Instructions [address] [address] Name: DHIRAJ LANDA Date of : 1995 12:00 PM Visit Date: 12/12/2011 6:57 AM Address: [address] [place] [phone] Primary Care Provider: JAMARI MCHUGH MD IMPORTANT: [facility] in [place] would like to thank you for allowing us to assist you with your healthcare needs. The following includes patient education materials and informationregarding your injury/illness. Chief Complaint: mono /sore throat Follow-Up Instructions: With: Address: When: DALJIT ARREOLA [address] [place] [id number] Business (1) Within AsNeeded Comments: Patient Education Materials: [id number] MONONUCLEOSIS Mononucleosis (Hansford) is a contagious viral infection. Most infants and children exposed to the virus get only mild flu-like symptoms or no symptoms at all. However, when infection occurs in teens andyoung adults, it causes Mononucleosis. Once infected, you are immune and cannot catch Hansford again; h owever, the virus stays in your body and can become active again without causing symptoms. While thevirus is active it can spread to others. The virus is spread by contact with saliva, most often by kissing someone who has the virus, even though they may not have symptoms. It takes about 4-6 weeks to develop symptoms after exposure. Early symptoms include headache, nausea, tiredness and general muscle aching. This is followed by sore throat, fever and swollen lymph glands in the neck and sometimes under the arms and in the groin. Symptoms usually go away in about 1-2 months, but can last up to four months. If your symptoms have been present less than one week or more than three weeks, the Hansford-Spot test used to diagnose this disease may be negative even though you have the illness. IN this case, other tests may help the doctor make the diagnosis. If Ampicillin was previously prescribed for your sore throat, it may have caused a rash. This is not serious and will fade in about one week. This is not a true allergic reaction to Ampicillin, but a drug reaction with the virus. Hansford can cause your spleen to swell. The spleen is a fist-sized organ in the upper left abdomen thatstores red blood cells. Injury to a swollen spleen can cause the spleen to rupture. This can cause life-threatening internal bleeding. To avoid this, follow the advice below. HOME CARE: 1) Rest in bed until the fever and weakness have gone away. 2) Drink plenty of fluids, but avoid alcohol. Otherwise, you may eat a regular diet. 3) You may use acetaminophen (Tylenol) or ibuprofen (Motrin, Advil) to control fever and pain, unless another medicine was prescribed. [ NOTE : If you have chronic liver or kidney disease or ever had astomach ulcer or GI bleeding, talk with your doctor before using these medicines.] (Aspirin should never be used in anyone under 18 years of age who is ill with a fever. It may cause severe liver damage.) 4) Rorr-gei-navsrbv lozenges or spray may be used for sore throat. Gargling with warm salt water (1/2 teaspoon in 1 glass of warm water) is also soothing to the throat. 5) You may return to work or school after the fever goes away and you are feeling better. 6) Do not play contact sports or perform strenuous activity for eight weeks, or until cleared by your doctor. A sharp blow to your left side could rupture a swollen spleen. 7) If you have an itchy rash, you may take Benadryl (an gmto-dqc-muaksvr antihistamine). Use lower doses during the daytime and higher doses at bedtime since the drug may make you sleepy. [NOTE: Do notuse Benadryl if you have glaucoma or if you are a man with trouble urinating due to an enlarged prost ate.] Claritin (loratidine) is an antihistamine that causes less drowsiness and is a good alternative for daytime use. PREVENTING SPREAD OF THE VIRUS: To limit the spread of the virus, avoid exposing others to your saliva for at least six months afteryour illness (no kissing, don't share utensils, glasses or toothbrushes). FOLLOW UP with your doctor within one to two weeks or as advised by our staff to be sure that there are no complications. If symptoms of extreme fatigue and swollen glands last longer than 6 months, see your doctor for further testing. GET PROMPT MEDICAL ATTENTION if any of the following occur: -- Difficulty breathing, excess coughing or chest pains -- Yellow skin or eyes -- Severe or worsening abdominal pain -- Fainting or dizziness -- Severe stiff neck, headache or facial weakness ?? 4094-9191 [employer], [address] [place] [address]. All rights reserved. This information is not intended as a substitute for professional medical care. Always follow your healthcare professional's instructions. [id number] MEDICATION: TYLENOL & CODEINE You have been prescribed a pain medication containing codeine and Tylenol (acetaminophen). Codeine is a narcotic and may cause drowsiness. Be sure to take it only as directed. DIRECTIONS FOR USE: If this medicine makes your stomach upset, take it with food. Pain medication should be taken only if needed at the times prescribed. If you are not having pain, do not take the medicine, unless you are advised to do so by your doctor. WHAT TO WATCH FOR: POSSIBLE SIDE EFFECTS: Dizziness, drowsiness --> Take a smaller dose: break the pill in half or take it less often. Constipation --> Drink lots of liquids, use small doses of a mild laxative likeMilk of Magnesia, as needed. Nausea, vomiting or stomach pain --> Take the medicine with food; contact your doctor if symptoms persist or become severe. Difficulty passing urine --> Contact your doctor or return to this facility if your bladder feels full and you have been unable to pass urine for more than 8 hours. ALLERGIC REACTION: Rash, itching, swelling, trouble breathing or swallowing --> Contact your doctor or return to this facility promptly. IMPORTANT MEDICAL CONDITIONS: Before starting this medicine, be sure your doctor knows if you have any of the following conditions: -- Prostate enlargement, difficulty passing urine -- or breast feeding DRUG INTERACTIONS: This drug may cause increased side effects when taken with alcohol, muscle relaxant, sedative, tricyclic antidepressant or another pain medicine. WARNINGS: -- This medicine may cause drowsiness or dizziness. DO NOT DRIVE, ride a bicycle or operate dangerous equipment while using this medicine until you know how it will affect you. -- Prolonged use of codeine can be HABIT FORMING and may lead to ADDICTION. -- This medicine can slow the breathing in infants under one year of age. Therefore, it must be usedwith caution. Do not exceed the dosage recommended. [NOTE: This information topic may not include all directions, precautions, medical conditions, drug/food interactions and warnings for this drug. Check with your doctor, nurse or pharmacist for any questions that you may have.] ?? 3031-4965 [employer], [address] [place] [address]. All rights reserved. This information is not intended as a substitute for professional medical care. Always follow your healthcare professional's instructions. For your prednisone: Take 2 tablets (40 mg) this morning AND AGAIN this evening Take 3 tablets once on 12/12 Take 3 tablets once on 12/13 ED Tests and Procedures: Order Status Discharge Prescriptions & Home Medications: Medication/Strength Dose Route Frequency Indications/Special Instructions/Comments diphenhydrAMINE/lidocaine/nystatin topical (FIRST BXN Mouthwash mucous membrane suspension) 15 mL Topical four times a day as needed for Mouth pain Hold in mouth for one to two minutes, then spit out or swallow acetaminophen-codeine (acetaminophen-codeine 300 mg-30 mg oral tablet) 1 to 2 tablets Oral every 4 hours as needed for Pain No more than 4,000mg acetaminophen/24hrs predniSONE (predniSONE 20 mg oral tablet) See special instructions Oral as directed Take TWO tabletsthis morning, TWO tablets this evening, then THREE tablets on 12/12 and THREE tablets on 12/13 norgestimate-ethinyl estradiol (Ortho Tri-Cyclen 35 mcg oral [...] how to take those medications. DHIRAJ LANDA designee has reviewed the home medications you [...] nurse or physician. Patient Signature or Responsible Republican/Relationship Date/Time Provider Signature Date/Time Medication Reconciliation: Reconciliation [...] ride home with a responsible green party. SYEDA [place] JACALYN MARIE , or responsible green party have received this information and my questions have been answered. I have discussed any challenges I see with this plan with the nurse or physician. Patient Signature or Responsible Republican/Relationship Date/Time Provider Signature Date/Time Source: [facility] POWERCHART Document Id: [id number] Kristin Woods R.N. - 12/12/2011 8:13 AM CDT ED Depart Summary [facility] Emergency Department Clinical Discharge Summary PERSON INFORMATION Name DHIRAJ LANDA Age 16 Years 1995 12:00 PM Sex Female Language Qatari PCP JAMARI MCHUGH MD Marital Status Single Visit Id Visit Reason mono /sore throat Specialty Enc Type Emergency Med Service Emergency Medicine Referred by Track Group [facility] ED Discharge 12/12/2011 8:13 AM Tracking Id [id number] Checkout 12/12/2011 8:13 AM Checkin 12/12/2011 6:57 AM Acuity Dispo Type * Discharged to Home or Self Care Arrival 12/12/2011 6:57 AM Reg Status Complete LOS 000 01:16 Address: [address] [place] [phone] Comment: PROVIDER INFORMATION Provider Role Provider Contact Time KRISTIN WOODS STARS ANALYTICAL LEAD Nurse 12/12/11 07:12 BETZAIDA KANH MD ED Provider 12/12/11 07:25 DIAGNOSIS mononucleosis Comment: PATIENT EDUCATION INFORMATION Instructions: MONONUCLEOSIS; TYLENOL AND CODEINE Follow up: With: Address: When: DALJIT ARREOLA [address] [place] [id number] [facility] () Within AsNeeded Comments: Source: [facility] POWERCHART Document Id: [id number] documented in this encounter Medications at Time of Discharge Medication Sig Dispensed Refills Start Date End Date albuterol (for_ACCUNEB) one unit dose qid 0 12/0409/25/2018 2.5 mg /3 mL nebulizer and q2hr prn solution documented as of this encounter Nursing Notes Kristin Woods R.N. - 12/12/2011 8:12 AM CDT ED Pain Assessment ED Pain Assessment Entered On: 12/12/2011 8:12 CDT Performed On: 12/12/2011 8:12 CDT by KRISTIN WOODS RN Pain Assessment Pain Symptoms : Yes KRISTIN WOODS RN - 12/12/2011 8:12 CDT Source: [facility] [employer] Document Id: [id number] CDT!3 Kristin Woods R.N. - 12/12/2011 7:15 AM CDT ED Primary Assessment ED Primary Assessment Entered On: 12/12/2011 7:18 CDT Performed On: 12/12/2011 7:15 CDT by KRISTIN WOODS RN Reason For Visit Problems(Active) Allergic asthma NOS with status asthmaticus Name of Problem: Allergic asthma NOS with status asthmaticus ; Recorder: JENNIFER ARCHIBALD LPN; Confirmation: Confirmed ; Classification: Nursing ; Code: 1231 ; Contributor System: [employer] ; Last Updated: 09/29/2010 17:17 DIRECTOR MICROBIOLOGY ; Life Cycle Date: 09/29/2010 ;Life Cycle Status: Active ; Responsible Provider: JENNIFER ARCHIBALD LPN; Vocabulary: ICD-9-CM ; Comments: 06/02/2011 17:13 - CONSUELO DIA LPN date of onset unknown Closed fracture of tibia and fibula Name of Problem: Closed fracture of tibia and fibula ; Onset Date: 03/02/2007 ; Recorder: JENNIFER ARCHIBALD LPN; Confirmation: Confirmed ; Classification: Nursing ; Code: 1231 ; Contributor System: [employer] ; Last Updated: 09/29/2010 14:18 DIRECTOR MICROBIOLOGY ; Life Cycle Date: 09/15 ; Life Cycle Status: Active ; Responsible Provider: JENNIFER ARCHIBALD LPN; Vocabulary: ICD-9-CM Diagnoses(Active) Throat pain - Pediatric Date: 12/12/2011 ; Diagnosis Type: Reason For Visit ; Confirmation: Complaint of ; Clinical Dx: Throat pain - Pediatric ; Classification: Medical ; Clinical Service: Emergency medicine ; Code: PNED ; Probability: 0 ; Diagnosis Code: [id number] Triage Chief Complaint Description : sore throat pain . HX of mono diagnosis last tuesday Mode of Arrival ED : Private vehicle Track : Medical Languages : Qatari KRISTIN WOODS RN - 12/12/2011 7:15 CDT Pain Assessment Pain Symptoms : Yes KRISTIN WOODS RN - 12/12/2011 7:15 CDT Allergy Allergies (Active) Suprax Estimated Onset Date: Unspecified ; Created By: JENNIFER ARCHIBALD LPN; Reaction Status: Active ; Category: Drug ; Substance: Suprax ; Type: Allergy ; Updated By: JENNIFER ARCHIBALD LPN; Reviewed Date: 12/07/2011 9:04 CDT Respiratory Airway : Patent Respirations : Unlabored Respiratory Pattern : Regular Oxygen Therapy : Room air KRISTIN WOODS RN - 12/12/2011 7:15 CDT Cardiovascular Heart Rhythm : Regular Skin Color : Normal for ethnicity Skin Description : Dry Skin Temperature : Warm KRISTIN WOODS RN - 12/12/2011 7:15 CDT Neurological Level of Consciousness : Alert Orientation : Oriented x 3 Characteristics of Speech : Appropriate for age Neuro Patient Stated Symptoms : Weakness Gait : Steady Swallowing Difficulty/Aspiration Risk : Liquids, thin KRISTNI WOODS RN - 12/12/2011 7:15 CDT ED Psychosocial Affect/Behavior : Calm Domestic Abuse Concerns : None KRISTIN WOODS RN - 12/12/2011 7:15 CDT Gastrointestinal Nutrition ED : Inadequate Nutrition ED Freetext : decreased related to sore throat. KRISTIN WOODS RN - 12/12/2011 7:15 CDT Musculoskeletal Fall Prevention Education Provided : KRISTIN PIMENTEL RN - 12/12/2011 7:15 CDT Social Habits Tobacco Use/Currently Using : No Tobacco Use/Last 12 months : No Tobacco Use/Advised to Quit : No Smoking Status : Never smoker KRISTIN WOODS RN - 12/12/2011 7:15 CDT Alcohol Use Grid Alcohol Use : No KRISTIN WOODS RN - 12/12/2011 7:15 CDT Recreational Drug Use Grid Drug Use : None KRISTIN WOODS RN - 12/12/2011 7:15 CDT [facility] Document Id: [id number] CDT!44 documented in this encounter ED Notes Kristin Woods R.N. - 12/12/2011 8:12 AM CDT ED Disposition Summary ED Disposition Summary Entered On: 12/12/2011 8:12 CDT Performed On: 12/12/2011 8:12 CDT by KRISTIN WOODS STARS ANALYTICAL LEAD Disposition Summary Accompanied By : Mother Mode of Discharge : Ambulatory Transportation : Private vehicle Printed Discharge Instructions Given to Patient : Yes Patient Status at Discharge from ED : Unchanged KRISTIN WOODS RN - 12/12/2011 8:12 CDT Source: [employer] Document Id: [id number] CDT!7 Betzaida Kahn M.D. - 12/12/2011 7:31 AM CDT mononucleosis, throat pain Patient: DHIRAJ LANDA Age: 16 years Sex: Female : 1995 Author: BETZAIDA KAHN MD Attachments: None Associated Diagnosis: Mononucleosis Basic Information Time seen: Date 12/12/2011. History source: Patient, mother. Arrival mode: Walking. History limitation: None. Additional information:: Chief Complaint from Nursing Triage Note : Chief Complaint Description. 12/12/2011 7:12 CDT Chief Complaint Description 16 year old female admitted to ER with complaints ofsore throat not relieved with Ibuprofen or tylenol. Patient was diagnosed with Hansford last Tuesday. History of Present Illness The patient presents with throat pain. The onset was 10 days ago. The course/duration of symptoms isworsening. Location: Right anterior pharynx. The character of symptoms is pain and swelling. The degree at present is severe. Exacerbating factors consist of speaking, coughing swallowing. The relieving factor is rest. Risk factors consist of none. Prior episodes: none. Therapy today: over the countermedications including Ibuprofen alternating with tylenol. Associated symptoms: nasal congestion and change in voice. Was seen at clinic 12/06, diagnosed with mononucleosis. Had negative strep test. Pain not responding to combination of tylenol and ibuprofen. Review of Systems Constitutional symptoms: Fatigue. Skin symptoms: no jaundice no rash. ENMT symptoms: Sore throat, nasal congestion. Cardiovascular symptoms: no chest pain Gastrointestinal symptoms: no abdominal pain Allergy/immunologic symptoms: Seasonal allergies. Health Status Allergies: . Allergic Reactions (Selected) Severity not Documented Suprax- No reactions were documented. Medications: (Selected). Prescriptions Ordered Advair Diskus 250 mcg-50 mcg inhalation powder: 1 puff(s), Inhalation, 2xDay, 60 dose(s) DuoNeb inhalation solution: 1 each, NEB, 4xDay, 60 each, PRN Flonase 0.05 mg/inh nasal spray: 2 spray(s), Nasal, 2xDay, 16 gm Ortho Tri-Cyclen 35 mcg oral tablet: 1 tab(s), PO, Daily, 84 tab(s) albuterol 90 mcg/inh inhalation aerosol: See Instructions, 1-2 puffs Inhalation q4-6hr as needed forasthma, 54 gm, PRN: Shortness of breath / Wheezing Documented Medications Documented Singulair 5 mg oral tablet, chewable: 1 tab(s), PO, Daily PM, 30 tab(s) Immunizations: Up to date. Past Medical/ Family/ Social History Surgical history: Surgical history. Tonsillectomy, primary or secondary; younger than age 12 (42845) in 1999 at 5 Years. Social history: Alcohol use: Denies, Tobacco use: Denies, Occupation: A student, Family/social situation: Lives with parent(s). Problem list: . All Problems Allergic asthma NOS with status asthmaticus / 493.91 / Confirmed Closed fracture of tibia and fibula / 823.82 / Confirmed Physical Examination Vital signs: Per nurse's notes. General: Alert. mild distress. Skin: Warm. dry. Head: Normocephalic Neck: Supple Eye: Pupils are equal, round and reactive to light. normal conjunctiva. Ears, nose, mouth and throat: Tympanic membranes clear. Throat: moderate, pharynx, tonsil, erythema and with exudate. Cardiovascular: Regular rate and rhythm Respiratory: Lungs are clear to auscultation Gastrointestinal: Soft. Nontender. No organomegaly. Neurological: Alert and oriented to person, place, time, and situation Lymphatics: Marked anterior cervical adenopathy, right greater than left, tender Medical Decision Making Differential Diagnosis:Mononucleosis. RationaleHas mono. Strep testing negative on 12/06. Inadequate pain relief. Will add Magic Mouth, three day burst of oral steroids, and Tyl #3.. Documents reviewed:Prior records. Impression and Plan Diagnosis Mononucleosis (Discharge, Emergency medicine, Medical) Discharge plan Condition: Improved, Stable. Dispositioned: To home. Prescriptions: Given 15 mL of Magic Mouth in ED (2% lidocaine, maalox, benadryl elixir). RX for Tyl #3 (20) and Prednisone 20 mg (40 mg BID today, then 60 mg daily for two more days). Continue ibuprofen.. Patient was given the following educational materials: MONONUCLEOSIS, TYLENOL AND CODEINE. Limitations: Limited activity. Follow up with: DALJIT Luna As Needed. Counseled: Patient, Family, Regarding diagnosis, Regarding treatment plan, Patient indicated understanding of instructions. Electronically Signed By: BETZAIDA KAHN MD On: 12/12/2011 08:17 AM Source: [facility] [employer] Document Id: {[id number]} Kristin Woods, RGonzaloN. - 12/12/2011 7:12 AM CDT ED Triage Assessment ED Triage Assessment Entered On: 12/12/2011 7:15 CDT Performed On: 12/12/2011 7:12 CDT by KRISTIN WOODS RN Reason For Visit Problems(Active) Allergic asthma NOS with status asthmaticus Name of Problem: Allergic asthma NOS with status asthmaticus ; Recorder: JENNIFER ARCHIBALD LPN; Confirmation: Confirmed ; Classification: Nursing ; Code: 1231 ; Contributor System: [employer] ; Last Updated: 09/29/2010 17:17 DIRECTOR MICROBIOLOGY ; Life Cycle Date: 09/29/2010 ;Life Cycle Status: Active ; Responsible Provider: JENNIFER ARCHIBALD LPN; Vocabulary: ICD-9-CM ; Comments: 06/02/2011 17:13 CONSUELO HURST LPN date of onset unknown Closed fracture of tibia and fibula Name of Problem: Closed fracture of tibia and fibula ; Onset Date: 03/02/2007 ; Recorder: JENNIFER ARCHIBALD LPN; Confirmation: Confirmed ; Classification: Nursing ; Code: 1231 ; Contributor System: [employer] ; Last Updated: 09/29/2010 14:18 DIRECTOR MICROBIOLOGY ; Life Cycle Date: 09/15 ; Life Cycle Status: Active ; Responsible Provider: JENNIFER ARCHIBALD LPN; Vocabulary: ICD-9-CM Diagnoses(Active) Throat pain - Pediatric Date: 12/12/2011 ; Diagnosis Type: Reason For Visit ; Confirmation: Complaint of ; Clinical Dx: Throat pain - Pediatric ; Classification: Medical ; Clinical Service: Emergency medicine ; Code: PNED ; Probability: 0 ; Diagnosis Code: [id number] Triage Chief Complaint Description : 16 year old female admitted to ER with complaints of sore throat not relieved with Ibuprofen or tylenol. Patient was diagnosed with Hansford last Tuesday. Information Given By : Mother Accompanied By : Mother Mode of Arrival ED : Private vehicle Track : Medical Languages : Qatari Vital Signs Assessed : Yes Treatments Prior to Arrival : Other: Tylenol at 0330. KRISTIN WOODS RN - 12/12/2011 7:12 CDT Vital Signs Temperature Core : 37.4C(Converted to: 99.3DegF) Peripheral Pulse Rate : 101/min (HI) Respiratory Rate : 2/min (<LLOW) Systolic Blood Pressure : 123mmHg Diastolic Blood Pressure : 72mmHg NIBP Mean : 89mmHg BP Location : Right upper extremity SpO2 : 100% Oxygen Therapy : Room air Dosing Weight : 73kg Dosing Weight Conversion to Pounds : 160.600lb Estimated Weight : 73kg Estimated Weight Conversion to Pounds : 160.60lb KRISTIN WOODS RN - 12/12/2011 7:12 CDT Pain Assessment Pain Symptoms : Yes KRISTIN WOODS RN - 12/12/2011 7:12 CDT Pain Pain Assessment Grid Pain 1 Location : Throat Intensity : 9 KRISTIN WOODS RN - 12/12/2011 7:12 CDT ED Physician Notification Time ED Physician Notification Time : 12/12/2011 7:15 CDT KRISITN WOODS RN - 12/12/2011 7:12 CDT Allergy Allergies (Active) Suprax Estimated Onset Date: Unspecified ; Created By: JENNIFER ARCHIBALD LPN; Reaction Status: Active ; Category: Drug ; Substance: Suprax ; Type: Allergy ; Updated By: JENNIFER ARCHIBALD LPN; Reviewed Date: 12/07/2011 9:04 CDT Source: [employer] Document Id: [id number] CDT!33 documented in this encounter Miscellaneous Notes Miscellaneous - Kristin Woods R.N. - 12/12/2011 8:12 AM CDT Valuables/Belongings Valuables/Belongings Entered On: 12/12/2011 8:12 CDT Performed On: 12/12/2011 8:12 CDT by KRISTIN WOODS RN Valuables/Belongings Belongings Sent Home With : sent home with patient Home Medication Disposition : None brought in with patient KRISTIN WOODS RN - 12/12/2011 8:12 CDT Source: [employer] Document Id: [id number] CDT!4 Miscellaneous - Kristin Woods R.N. - 12/12/2011 6:57 AM CDT Facility Charge Ticket Facility Charge Ticket Entered On: 12/12/2011 8:13 CDT Performed On: 12/12/2011 6:57 CDT by KRISTIN WOODS RN Facility Charge TVL Level for Facility Charge Ticket : Level 3 Mode of Arrival ED : Private vehicle [place] Mode of Arrival Interpreted : Standard [facility] Process Management : None [facility] Order Management : None 30 Minutes Critical Care : No [facility] Nursing Assessment : Triage and 1-2 nursing assessments [facility] Disposition : Discharge [facility] Total Points with Diagnosis Control : 5 [facility] Visit Level : 12245 Level 3 Treatments Prior to Arrival : Other: Tylenol at 0330. KRISTIN WOODS RN - 12/12/2011 8:12 CDT Chief Complaint 8.50.02 Reason For Visit Category : EENT and dental ED Chief Complaint EENT and Dental 8.5 : Throat pain TVL Calc : 8 TVL for Facility Charge Ticket Dx : Level 3 KRISTIN WOODS RN - 12/12/2011 8:12 CDT Source: [facility] Document Id: [id number] documented in this encounter Plan of Treatment Not on filedocumented as of this encounter Visit Diagnoses Not on filedocumented in this encounter
--- OUTSIDE RECORDS SUMMARY | 2022-04-07 13:20 | XMS_ITS | Encounter Summary ---
:1995 Author Organization [facility] Address [address] [place] [address] Care Team Providers Name Role Phone Unavailable Primary Care Provider Unavailable Encounter Details Date Type Department Care Team Description 05/08/2012 Hospital Encounter HX [facility] Aleida Mejia M.D. Social History Tobacco Use Types Packs/Day [...] 10/23/2020 relatives? How often do you attend zoroastrian or latter day Never 10/23/2020 services? 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 0 2 11/04/2017 (for_ADVAIR DISKUS) 250-50 mcg/dose diskus inhaler documented as of this encounter Progress Notes Ember Bethea LGonzaloP.N. - 05/08/2012 4:47 PM CDT Wound Care/Clinic Wound Care/Clinic Entered On: 05/08/2012 16:51 CDT Performed On: 05/08/2012 16:47 CDT by EMBER BETHEA LPN Incision/Wound Incision/Wound Care Grid Activity : Assessed, Dressing changed Type : Other: lanced cyst Location : Other: thigh upper inner Laterality : Right Description : Drainage/Exudate Color : [place] Drainage : Purulent Drainage Amount : Small Surrounding Tissue : Healthy (Comment: red and bruised [EMBER BETHEA LPN - 05/08/2012 16:47 CDT] ) Wound Dressing : Other: Area packed with nugauze and covered with 3x3 and burn netting applied to upper thigh area EMBER BETHEA LPN - 05/08/2012 16:47 CDT [facility] Document Id: [id number] documented in this encounter Plan of Treatment Not on filedocumented as of this encounter Visit Diagnoses Not on filedocumented in this encounter
--- OUTSIDE RECORDS SUMMARY | 2022-04-07 13:20 | XMS_ITS | Encounter Summary ---
:1995 Author Organization [facility] Address [address] [place] [address] Care Team Providers Name Role Phone Unavailable Primary Care Provider Unavailable Encounter Details Date Type Department Care Team Description 10/05/2010 Hospital Encounter HX [facility] Johnnie Mchugh M.D. [address] [place] [phone] (Wo rk) Social History Tobacco Use Types [...] How often do you attend restorationism or uatsdin Never 10/23/2020 services? 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 - 10/05/2010 12:00 AM CST [id number] CHIEF COMPLAINT/REASON FOR VISIT: 15 -year-old female who is brought in by mom with complaints of a fever recently treated for urinary infection. She stated that she started having fever and chills. The patient with asthma, has a hard time taking a full deep breath. She started taking her nebulizer treatments, those nebules were outdated. The patient needs a new prescription of Duo-Nebs, also is here for evaluation of her fever and chills. She stated that her right ear is feeling better. PAST MEDICAL/SURGICAL HISTORY Significant for asthma. CURRENT MEDICATIONS Advair discus 100/50 twice a day. Albuterol as needed. Duo-Nebs as needed. Singulair 5 milligram tablet daily. PHYSICAL EXAMINATION HEENT: Right ear is improved significantly as compared to the last examination. Significant amount of postnasal drainage. The patient has crepitation in the right middle and lower lung mills. CHEST: Minimal rhonchi also heard on auscultation. IMPRESSION/REPORT/PLAN: 1. Fever. 2. Pneumonia. Chest x-ray is done, infiltrate is seen on initial view and the findings are discussed with the patient, it appears that the patient has a small pneumonia with bronchitis. PLAN: The patient is given Augmentin 875 milligrams twice a day for ten days, could use over the counter Sudafed or decongestant. Prescription for Duo-Nebs is given, and faxed/sent to pharmacy. Could use ibuprofen or Advil for fever, if the patient continued to have chills and fever after 72 hours mom will call us or contact us back. Jamari Mchugh M.D. /annalee Electronically Signed By: JAMARI MCHUGH MD On: 10/05/2010 02:55 Source: [facility] MHSDOLPRAFULS Document Id: [id number] ER MIXER documented in this encounter Miscellaneous Notes Miscellaneous - Shannon Medellin LGonzaloP.NGonzalo - 10/05/2010 9:09 AM CST Adult Senior Ui Ux Designer Intake/History Adult Senior Ui Ux Designer Intake/History Entered On: 10/05/2010 9:11 FILLER MIXER Performed On: 10/05/2010 9:09 FILLER MIXER by SHANNON MEDELLIN LPN Intake Chief Complaint: fever cough sob Onset of Symptoms: 2 days Temperature Oral: 38.4C(Converted to: 101.1DegF) (>HHI) Peripheral Pulse Rate: 128/min (HI) Respiratory Rate: 22/min (HI) SpO2: 97% Heart Rhythm: Regular Oxygen Therapy: Room air SHANNON MEDELLIN LPN - 10/05/2010 9:09 FILLER MIXER Subjective Pain Symptoms: No SHANNON MEDELLIN LPN - 10/05/2010 9:09 FILLER MIXER Dependent Habits Tobacco Use/Currently Using: No Tobacco Use/Last 12 months: No Tobacco Use/Advised to Quit: No SHANNON EMDELLIN LPN - 10/05/2010 9:09 FILLER MIXER Allergies Allergies (Active) Suprax Estimated Onset Date: Unspecified ; Created By: SHANNON MEDELLIN LPN; Reaction Status: Active ; Category: Drug ; Substance: Suprax ; Type: Allergy ; Updated By: SHANNON MEDELLIN LPN; Reviewed Date: 09/29/2010 17:16 FILLER MIXER Source: [facility] POWERCHART Document Id: [id number] [id number] MIXER![id number] ER MIXER documented in this encounter Plan of Treatment Not on filedocumented as of this encounter Visit Diagnoses Not on filedocumented in this encounter
--- OUTSIDE RECORDS SUMMARY | 2022-04-07 13:20 | XMS_ITS | Encounter Summary ---
:1995 Author Organization [facility] Address [address] [place] [address] Care Team Providers Name Role Phone Unavailable Primary Care Provider Unavailable Encounter Details Date Type Department Care Team Description 02/15/2012 Hospital Encounter HX [facility] Manny Diaz, N.P. [address] [place] [address] (Wo rk) Social History Tobacco Use [...] How often do you attend restorationism or mosque Never 10/23/2020 services? 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 Last Filed Vital Signs Vital Sign Reading Time Taken Comments Blood Pressure 104/54 02/15/2012 9:37 AM CDT Pulse 86 02/15/2012 9:37 AM CDT Temperature - - Respiratory Rate 16 02/15/2012 9:37 AM CDT Oxygen Saturation - - Inhaled Oxygen Concentration - - Weight 71.5 kg (157 lb 10.1 oz) 02/15/2012 9:37 AM CDT Height - - Body Mass Index - - documented in this encounter Medications at Time of Discharge Medication Sig Dispensed Refills Start Date End Date albuterol (for_ACCUNEB) one unit dose qid 0 12/0409/25/2018 2.5 mg /3 mL nebulizer and q2hr prn solution documented as of this encounter Progress Notes Saskia Diaz, N.Rodrigo. - 02/15/2012 12:00 AM CDT [id number] CHIEF COMPLAINT/REASON FOR VISIT Painful bump on right ankle. HISTORY OF PRESENT ILLNESS Sary is a 17-year-old female who is here today with concerns about a painful bump on the inside of her right ankle. She states that it has been there for maybe a week or so and that she had noticed some pain in her anterior jovel yesterday and was a little bit concerned she'd had a previous fracture. Sary denies any known injury, although she has been running approximately three times a week about a half a mile and states when she runs she does notice the discomfort in the right inside part of her ankle. It has been a little bit swollen and tender to the touch, but she has not noticed any redness. She has had no fever or rashes and otherwise has felt well. CURRENT MEDICATIONS Reviewed. No change. Please see EMR. ALLERGIES Suprax. PAST MEDICAL/SURGICAL HISTORY Past medical history is reviewed and unchanged. Please see EMR. VITAL SIGNS Temperature 36, pulse 86, respirations 16, blood pressure 104/54, O2 sat is 98% on room air. PHYSICAL EXAMINATION GENERAL: Sary is alert, oriented x3, appears in no acute distress. EXTREMITIES: Right lower extremity is examined. She does have some bruising noted on her anterior jovel in the area that was mentioned in the history of present illness of concern, but further down to the right medial aspect of the ankle there is a tender, slightly swollen area. She does report pain with eversion and inversion of the ankle but not as much with flexion and extension. This area on the medial aspect is slightly swollen compared to the left. Diagnostics: 1. X-ray of right ankle is negative for any acute findings. IMPRESSION/REPORT/PLAN 1. Right ankle pain. Plan: 1. I reviewed the diagnostic findings today with Sary. At this time, I would recommend RICE therapy. I suggested maybe she stop running for a few days because this could be more of an over use syndrome or tendonitis. She is encouraged to use ibuprofen, ice, elevate the affected area and wrap it with an Bhanu wrap. If her symptoms persist or worsen, I certainly request that she follow up. Sary's questions have been addressed and she is agreeable to this plan of care. PATIENT EDUCATION: Ready to learn No apparent learning barriers were identified Learning preferences include listening Explained diagnosis and treatment plan Patient/Child/Caregiver expressed understanding of the content Saskia Diaz N.P. /anthony Electronically Signed By: SASKIA DIAZ BUYER TOBACCO HEAD On: 02/22/2012 05:39 PM Source: [facility] MHSDOLBEYNONRADSYS Document Id: [id number] documented in this encounter Miscellaneous Notes Miscellaneous - Saskia Diaz NAmina. - 02/15/2012 10:32 AM CDT Ambulatory Patient Summary [address] [address] Visit Information Name: DHIRAJ LANDA Current Date: 02/15/2012 10:32:03 Physicians Attending Provider: SASKIA DIAZ NP Primary Care Provider: JAMARI MCHUGH MD Your [...] of onset unknown Asthma NOS (493.90) Active Your Upcoming Appointments Date Time Location Reason Provider No Appointments found Your Goals/Additional instructions: Source: [facility] POWERCHART Document Id: [id number] Miscellaneous - Saskia Diaz, N.P. - 02/15/2012 10:32 AM CDT Ambulatory Depart Summary [id number] [place] [address] Visit Information Name: DHIRAJ LANDA Visit Date: 02/15/2012 10:32:02 Attending Provider: SASKIA DIAZ BUYER TOBACCO HEAD Primary Care Provider: JAMARI MCHUGH MD DHIRAJ [...] your provider for clarification. Additional Information: Source: [facility] POWERCHART Document Id: [id number] Miscellaneous - Bisi Bethea L.P.N. - 02/15/2012 9:37 AM CDT Pediatric Quick Technician Intake/History Pediatric Quick Technician Intake/History Entered On: 02/15/2012 9:41 CDT Performed On: 02/15/2012 9:37 CDT by BISI BETHEA SALVAGE WINDER Intake Chief Complaint : Right ankle had a bump and hurt, now up right jovel area Temperature Core : 36.0C(Converted to: 96.8DegF) (LOW) Peripheral Pulse Rate : 86/min Respiratory Rate : 16/min Heart Rhythm : Regular Systolic Blood Pressure : 104mmHg Diastolic Blood Pressure : 54mmHg NIBP Mean : 71mmHg BP Location : Right upper extremity Blood Pressure Cuff Size : Regular SpO2 : 98% Oxygen Therapy : Room air Actual Weight : 71.5kg(Converted to: 157lb 10oz) Weight Source : Standing scale Dosing Weight Clinic : 71.50kg BISI BETHEA LPN - 02/15/2012 9:37 CDT Subjective Pain Symptoms : Yes BISI BETHEA LPN - 02/15/2012 9:37 CDT Pain Pain Assessment Grid Pain 1 Location : Lower leg Laterality : Right Intensity : 5 Time Pattern : Intermittent Onset : Gradual Quality : Sharp, Throbbing Pain Radiation : No Aggravating Factors : Movement Alleviating Factors : None Associated Symptoms : None Interventions : Repositioning BISI BETHEA LPN - 02/15/2012 9:37 CDT Dependent Habits Tobacco Use/Currently Using : No Tobacco Use/Last 12 months : No Tobacco Use/Advised to Quit : No Exposure to Tobacco Smoke : Care provider denies smoking in home Smoking Status : Never smoker Alcohol Use : No BISI BETHEA LPN - 02/15/2012 9:37 CDT Caffeine Use Grid Caffeine Use : Current Type : Soft drinks Frequency : Occasionally BISI BETHEA LPN - 02/15/2012 9:37 CDT Recreational Drug Use Grid Drug Use : None BISI BETHEA LPN - 02/15/2012 9:37 CDT Allergy Allergies (Active) Suprax Estimated Onset Date: Unspecified ; Created By: JENNIFER ARCHIBALD LPN; Reaction Status: Active ; Category: Drug ; Substance: Suprax ; Type: Allergy ; Updated By: JENNIFER ARCHIBALD LPN; Reviewed Date: 02/15/2012 7:14 CDT Source: [facility] [employer]lickmeCHART Document Id: [id number] documented in this encounter Plan of Treatment Not on filedocumented as of this encounter Visit Diagnoses Not on filedocumented in this encounter
--- OUTSIDE RECORDS SUMMARY | 2022-04-07 13:20 | XMS_ITS | Encounter Summary ---
:1995 Author Organization [facility] Address [address] [place] [address] Care Team Providers Name Role Phone Unavailable Primary Care Provider Unavailable Encounter Details Date Type Department Care Team Description 04/28/2012 Hospital Encounter HX [facility] Stephanie Ge M.D. [...] How often do you attend sabianism or mandaeism Never 10/23/2020 services? 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 Last Filed Vital Signs Vital Sign Reading Time Taken Comments Blood Pressure 108/68 04/28/2012 3:40 PM CDT Pulse 72 04/28/2012 3:40 PM CDT Temperature - - Respiratory Rate 14 04/28/2012 3:40 PM CDT Oxygen Saturation - - Inhaled Oxygen Concentration - - Weight 71.5 kg (157 lb 10.1 oz) 04/28/2012 3:40 PM CDT Height - - Body Mass Index 25.33 04/26/2012 9:43 PM CDT Body Mass Index Percentile 85.05 % 04/28/2012 3:40 PM CD T Growth Chart: [facility] (Girls, 2-20 Years) documented in this encounter Medications at Time of Discharge Medication Sig Dispensed Refills Start Date End Date albuterol (for_ACCUNEB) one unit dose qid 0 12/0409/25/2018 2.5 mg /3 mL nebulizer and q2hr prn solution fluticasone-salmeterol Inhale 1 puff. 0 2 11/04/2017 (for_ADVAIR DISKUS) 250-50 mcg/dose diskus inhaler documented as of this encounter Progress Notes Stephanie Ge M.D. - 04/28/2012 3:34 PM CDT [id number] REVISION HISTORY Dictated on 05/01/2012 at 6:37 PM, transcribed on 05/02/2012 at 10:17 AM - Modification to PHYSICAL EXAMINATION and IMPRESSION/REPORT/PLAN by Stephanie Ge M.D. PHYSICAL EXAMINATION She has a sore throat and she wanted me to take a look at it. She is afebrile. She has some slightlyenlarged anterior cervical nodes. Pharynx is erythematous and swollen, a little bit of purulent exudate on the right side. IMPRESSION/REPORT/PLAN Pharyngitis, probably viral since she has been on Augmentin now for 4 or 5 days. We will have her dosome gargling and use ibuprofen or Tylenol. Return on an as needed basis. CHIEF COMPLAINT/REASON FOR VISIT This is a 17-year-old history who is here with her mother to follow up on cellulitis. She was seen in the emergency room two days ago and was started on Augmentin and told to follow up today. She had noticed a day or two prior to her presentation to the emergency room that she had some redness and tenderness in the left upper thigh. She thought it started as a pimple but has not had anything like it previously. She thinks it is doing a little bit better since she has been on the Augmentin. She has only had three doses so far of the Augmentin. Denies any fever or chills. Denies any injury to her leg. Denies any distal paresthesias or numbness. PHYSICAL EXAMINATION On exam, she has an erythematous area which has been outlined and is a little bit less than the outline and then a more central area that is more indurated and darker red with a pimple-like lesion in the center. This indurated area is about 2 x 4 cm and is quite tender to touch. IMPRESSION/REPORT/PLAN Abscess and cellulitis, I&D of leg abscess. Plan: We discussed treatment. I recommended that we do incision and drainage. We spent some time discussing the risks and benefits of this procedure. I explained how I would do it and the consent form was filled out and signed. We did talk about possible risks and benefits. Avalon precautions were observed. The area on her left leg was cleaned with Betadine. Local 1% lidocaine was injected. A total of about 1 1/2 cubic centimeters and the affected area was incised and drained. It got quite a bit of purulent material and also was able to remove a small membrane that I think was probably the sac of a sebaceous cyst. The drainage was cultured and the wound was packed with quarter inch plain gauze. They were instructed to keep it dry and instructed how to dress this lesion. I told her I would liketo see her back on Tuesday for repacking. She is not in any sports so did not have to write any sort of restrictions. Stephanie Ge M.D./anthony Electronically Signed By: STEPHANIE GE MD On: 05/01/2012 10:23 AM Stephanie Ge M.D./anthony Electronically Signed By: STEPHANIE GE MD On: 05/01/2012 10:23 AM Co-Signed By: STEPHANIE GE MD On: 05/05/2012 07:48 AM Source: [facility] MHSDOLBEYNONRADSYS Document Id: [id number] documented in this encounter Miscellaneous Notes Miscellaneous - Stephanie Ge M.D. - 04/28/2012 5:21 PM CDT Ambulatory Patient Summary [address] [place] [address] Visit Information Name: DHIRAJ LANDA Current Date: 04/28/2012 17:21:08 Physicians Attending Provider: STEPHANIE GE MD Primary Care Provider: JAMARI MCHUGH MD Your Medications Here is a list of your medications. It is important to take your medications as directed. Use a pillbox or chart to help remind you to take your medications. Please let your doctor or nurse know if you have problems taking your medications. Medication/Strength Dose Route Frequency Indications/Special Instructions/Comments amoxicillin-clavulanate [...] Upcoming Appointments Date Time Location Reason Provider 05/01/2012 17:30 [facility] Family Med follow up Stephanie Ge MD Your Goals/Additional instructions: Source: [facility] POWERCHART Document Id: [id number] Miscellaneous - Stephanie Ge M.D. - 04/28/2012 5:21 PM CDT Ambulatory Depart Summary [address] [address] Visit Information Name: DHIRAJ LANDA Visit Date: 04/28/2012 17:21:07 Attending Provider: STEPHANIE GE MD Primary Care [...] medications. Medication/Strength Dose Route Frequency Indications/Special Instructions/Comments amoxicillin-clavulanate [...] Source: [facility] POWERCHART Document Id: [id number] Miscellaneous - Jeanette Dennison L.P.N. - 04/28/2012 3:40 PM CDT Pediatric Sports Marketing Specialist Intake/History Pediatric Sports Marketing Specialist Intake/History Entered On: 04/28/2012 15:42 CDT Performed On: 04/28/2012 15:40 CDT by JEANETTE DENNISON Intake Chief Complaint : cellulitis left leg Temperature Core : 36.6C(Converted to: 97.9DegF) Peripheral Pulse Rate : 72/min Respiratory Rate : 14/min Heart Rhythm : Regular Systolic Blood Pressure : 108mmHg Diastolic Blood Pressure : 68mmHg NIBP Mean : 81mmHg BP Location : Right upper extremity Blood Pressure Cuff Size : Regular Actual Weight : 71.5kg(Converted to: 157lb 10oz) Weight Source : Standing scale Dosing Weight Clinic : 71.50kg JEANETTE DENNISON - 04/28/2012 15:40 CDT Subjective Pain Symptoms : Yes JEANETTE DENNISON 04/28/2012 15:40 CDT Pain Pain Assessment Grid Pain 1 Location : Upper leg Intensity : 5 JEANETTE DENNISON 04/28/2012 15:40 CDT Dependent Habits Tobacco Use/Currently Using : No Exposure to Tobacco Smoke : Care provider denies smoking in home Smoking Status : Never smoker JEANETTE DENNISON 04/28/2012 15:40 CDT Tobacco Use Grid Last Use : never JEANETTE DENNISON 04/28/2012 15:40 CDT Caffeine Use Grid Caffeine Use : Current Type : Soft drinks Frequency : Occasionally JEANETTE DENNISON 04/28/2012 15:40 CDT Recreational Drug Use Grid Drug Use : None JEANETTE DENNISON 04/28/2012 15:40 CDT Allergy Allergies (Active) Suprax Estimated Onset Date: Unspecified ; Created By: JENNIFER ARCHIBALD LPN; Reaction Status: Active ; Category: Drug ; Substance: Suprax ; Type: Allergy ; Updated By: JENNIFER ARCHIBALD LPN; Reviewed Date: 04/26/2012 22:24 CDT Source: [facility] POWERCHART Document Id: [id number] documented in this encounter Plan of Treatment Not on filedocumented as of this encounter Procedures Procedure Name Priority Date/Time Associated Diagnosis Comme nts BACTERIAL CULTURE, Routine 04/28/2012 4:30 PM Res ults for this AEROBIC CDT procedure are i n the results section. documented in this encounter Results (ABNORMAL) Bacterial Culture, Aerobic (04/28/2012 4:30 PM CDT) Component Value Ref Test Analysis Performed At [facility] Range Method Time Signature Organism (POSITIVE) <=1 POWERCHART Refer for ID, Aerobic Bact HXFinal Light growth POWERCHART Staphylococcus aureus HXFinal See POWERCHART Susceptibility tab. Specimen (Source) Anatomical Collection Method Collection Time Re ceived Time Location / / Volume Laterality Abscess (Leg, 04/28/2012 4:30 PM Left) CDT Stephanie Ge M.D. LAB MICROBIOLOGY - GENERAL O RDERABLES Performing Organization Address City/State/ZIP Code Phon e Number POWERCHART documented in this encounter Visit Diagnoses Not on filedocumented in this encounter
--- OUTSIDE RECORDS SUMMARY | 2022-04-07 13:20 | XMS_ITS | Encounter Summary ---
:1995 Author Organization [facility] Address [address] [place] [address] Care Team Providers Name Role Phone Unavailable Primary Care Provider Unavailable Encounter Details Date Type Department Care Team Description 10/23/2010 Hospital Encounter HX [facility] Stephanie Ge [...] often do you attend oriental orthodox or mosque Never 10/23/2020 services? 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 - 10/23/2010 12:00 AM CST [id number] HISTORY OF PRESENT ILLNESS Sary is here for a sport's physical. The completed form can found in her chart. She also is complaining of some left ear pain. PHYSICAL EXAMINATION On exam, the canal is erythematous and swollen. She mentions that she is just getting over an upper respiratory infection. IMPRESSION/REPORT/PLAN A prescription for Cortisporin was given to her to use three drops in the left ear four times daily for about a week. Stephanie Ge M.D. / Electronically Signed By: STEPHANIE GE MD On: 10/23/2010 01:53 Source: [facility] MHSDOLBEYNONRADSYS Document Id: [id number] ARED FOODS SUPERVISOR documented in this encounter Miscellaneous Notes Miscellaneous - Vinnie Lyman L.P.N. - 10/23/2010 9:07 AM CST Pediatric Independent Distributor Intake/History Pediatric Independent Distributor Intake/History Entered On: 10/23/2010 9:10 PREPARED FOODS SUPERVISOR Performed On: 10/23/2010 9:07 PREPARED FOODS SUPERVISOR by VINNIE LYMAN LPN Intake Chief Complaint: Sports Physical Golf Temperature Core: 36.4C(Converted to: 97.5DegF) (LOW) Peripheral Pulse Rate: 70/min Respiratory Rate: 18/min Systolic Blood Pressure: 100mmHg Diastolic Blood Pressure: 52mmHg NIBP Mean: 68mmHg BP Location: Left upper extremity Heart Rhythm: Regular Actual Weight: 68.800kg(Converted to: 151lb 11oz) Weight Source: Standing scale Dosing Weight Clinic: 68.80kg VINNIE LYMAN LPN - 10/23/2010 9:07 PREPARED FOODS SUPERVISOR Subjective Pain Symptoms: No VINNIE LYMAN LPN - 10/23/2010 9:07 PREPARED FOODS SUPERVISOR Dependent Habits Tobacco Use/Currently Using: No VINNIE LYMAN LPN - 10/23/2010 9:07 PREPARED FOODS SUPERVISOR Allergy Allergies (Active) Suprax Estimated Onset Date: Unspecified ; Created By: JENNIFER ARCHIBALD LPN; Reaction Status: Active ; Category: Drug ; Substance: Suprax ; Type: Allergy ; Updated By: JENNIFER ARCHIBALD LPN; Reviewed Date: 10/23/2010 9:07 PREPARED FOODS SUPERVISOR Source: [facility] DiscountDoc Document Id: [id number] PREPARED FOODS SUPERVISOR!18 ARED FOODS SUPERVISOR documented in this encounter Plan of Treatment Not on filedocumented as of this encounter Visit Diagnoses Not on filedocumented in this encounter
--- OUTSIDE RECORDS SUMMARY | 2022-04-07 13:20 | XMS_ITS | Encounter Summary ---
:1995 Author Organization [facility] Address [address] [place] [address] Care Team Providers Name Role Phone Unavailable Primary Care Provider Unavailable Encounter Details Date Type Department Care Team Description 06/02/2011 Hospital Encounter HX [facility] Maureen petersen M.D. [address] [place] [address] [phone] (Wo rk) Social History Tobacco Use Types [...] How often do you attend amish or protestant Never 10/23/2020 services? 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 - 06/02/2011 12:00 AM CDT [id number] CHIEF COMPLAINT/REASON FOR VISIT Sinus congestion. HISTORY OF PRESENT ILLNESS The patient is a 16-year-old female who states that she has had a stuffy nose forever; forever is since the beginning of school in April. She notes that it seems to cycle maybe a week at a time where it will be better then it will be worse then it will get better and then it will get worse. It is occasionally accompanied by a runny nose. She states that she sometimes has a sore throat in the morning but denies any cough. She has had no headache but she does feel some pressure over her face. She denies any fevers. She is taking Benadryl and some allergy pills which help but does not quite get rid of it. She states that she will frequently have this happen in the spring and the fall. Regarding her asthma, the patient rates her asthma control test score at a 14. She does not think that her asthma is under quite as good control as it should be. She notes that she is frequently having shortness of breath and chest tightness. She has had to use her rescue inhaler one or two times per day during the past four weeks. For triggers she states pollen, dust, exercise, pet dander, smoke, and colds are triggers. CURRENT MEDICATIONS Advair 100/50 micrograms one puffs twice a day. DuoNebs one neb four times daily as needed. Singulair 5 mg by mouth daily. Albuterol inhaler two puffs every four hours as needed. ALLERGIES Suprax. SYSTEMS REVIEW Review of systems as above. VITAL SIGNS Temperature is 37.6. Pulse is 80 beats per minute. Respiratory rate is 20 breaths per minute. Blood pressure is 103/63. Pulse oximetry is 96% on room air. Weight is 70.4 kg. PHYSICAL EXAMINATION GENERAL: The patient is alert, oriented, and in no acute distress. HEENT: TMs are clear bilaterally. The patient's nasal mucosa is very pale and boggy. There is some drainage. She has mild maxillary sinus tenderness but no tenderness over her frontal sinuses. Oral mucosa is moist. There are no oral lesions or oropharyngeal erythema. NECK: Neck is supple. No lymphadenopathy. CARDIOVASCULAR: Regular, rate, and rhythm. Normal S1 and S2. No murmurs, rubs, or gallops. No jugular venous distention. LUNGS: Clear to auscultation but decreased air movement throughout. IMPRESSION/REPORT/PLAN 1. Asthma not controlled. I think it would be reasonable to increase the patient's long-acting controller medicine, the Advair, to 250/50 micrograms one puffs twice a day. We will continue her current Singulair dose and the albuterol as needed. We will recheck her in two weeks to make sure she is making improvement. 2. Allergic rhinitis. We will place the patient on Flonase and see if this helps with the nasal congestion she is feeling. I do not feel at this point that she has a sinus infection, but we will recheck her in two weeks and if she continues to have issues we will consider putting her on a course of antibiotics at that time. PATIENT EDUCATION: Ready to learn No apparent learning barriers were identified Learning preferences include listening Explained diagnosis and treatment plan Patient/Child/Caregiver expressed understanding of the content Maureen Grijalva M.D. /anthony Electronically Signed By: MAUREEN BACA MD On: 06/15/2011 08:44 AM Source: [facility] MHSDOLBEYNONRADSYS Document Id: [id number] documented in this encounter Miscellaneous Notes Miscellaneous - Maureen Mancilla M.D. - 06/02/2011 8:00 PM CDT Quality Measures Quality Measures Entered On: 06/02/2011 20:01 CDT Performed On: 06/02/2011 20:00 CDT by MAUREEN BACA MD Asthma Asthma Control Test (ACT) Score: 14 ED visits past yr for asthma w/o hospital stay: 0 Hospitalizations/Overnight Stays in Past yr for Asthma: 0 Asthma Action Plan Provided/Reviewed: Provided to the patient Asthma Action Plan Copy: Scanned into EMR MAUREEN BACA MD - 06/02/2011 20:00 CDT Source: [facility] Synedgen Document Id: [id number] CDT!7 Miscellaneous - Maureen Mancilla M.D. - 06/02/2011 5:34 PM CDT Ambulatory Patient Summary [address] [id number] Visit Information Name: DHIRAJ LANDA Current Date: 06/02/2011 17:34:52 Primary Care Provider: JAMARI MCHUGH MD Your Medications Here is a list of your medications. It is important to take your medications as directed. Use a pillbox or chart to help remind you to take your medications. Please let your doctor or nurse know if you have problems taking your medications. Medication/Strength Dose Route Frequency Indications/Special Instructions/Comments fluticasone nasal (Flonase 0.05 mg/inh nasal spray) 2 spray(s) Nasal two times a day fluticasone-salmeterol (Advair Diskus 250 mcg-50 mcg inhalation powder) 1 puff(s) Inhalation two times a day albuterol-ipratropium (DuoNeb inhalation solution) 1 each Nebulized inhalation four times a day as needed for Shortness of Breath fluticasone-salmeterol (Advair Diskus 100 mcg-50 mcg inhalation [...] Information Asthma Control Test every 1 year 06/02/2011 Asthma Action Plan every 1 year 06/02/2011 Screening Chlamydia every 1 year Females Age 16-24 06/02/2011 Your Upcoming Appointments Date Time Location Reason Provider No Appointments found Your Goals/Additional instructions: Source: [facility] POWERCodingpeople Document Id: [id number] Electronically signed by Conversion, [facility] Trenching Machine Operator [id number] at 01/16/2017 4:24 PM CDT Miscellaneous - Maureen Mancilla M.D. - 06/02/2011 5:34 PM CDT Ambulatory Depart Summary [address] [id number] Visit Information Name: DHIRAJ LANDA Current Date: 06/02/2011 17:34:51 Primary Care Provider: JAMARI MCHUGH MD DHIRAJ LANDA has been given the following list of medications: Your Medications It is important to take your medications as directed. Use a pill box or chart to help remind you to take your medications. Please let your doctor or nurse know if you have problems taking your medications. Medication/Strength Dose Route Frequency Indications/Special Instructions/Comments fluticasone nasal (Flonase 0.05 mg/inh nasal spray) 2 spray(s) Nasal two times a day fluticasone-salmeterol (Advair Diskus 250 mcg-50 mcg inhalation powder) 1 puff(s) Inhalation two times a day albuterol-ipratropium (DuoNeb inhalation solution) 1 each Nebulized inhalation four times a day as needed for Shortness of Breath fluticasone-salmeterol (Advair Diskus 100 mcg-50 mcg inhalation [...] to the patient and/or family, guardian/caregiver. Source: [facility] POWERCHART Document Id: [id number] Electronically signed by Conversion, [facility] Trenching Machine Operator [id number] at 01/16/2017 4:24 PM CDT Miscellaneous - Chrissy Dia L.P.N. - 06/02/2011 5:13 PM CDT Pediatric Retail Parts Professional Intake/History Pediatric Retail Parts Professional Intake/History Entered On: 06/02/2011 17:20 CDT Performed On: 06/02/2011 17:13 CDT by CHRISSY DIA LPN Intake Chief Complaint: here with c/o sinus congestion since Apr. never goes away. Has hx of asthma and uses inhalers and otc decongestants and no relief. Sometimes has sore throat which comes and goes. Temperature Core: 37.6C(Converted to: 99.7DegF) Peripheral Pulse Rate: 80/min Respiratory Rate: 20/min Systolic Blood Pressure: 103mmHg Diastolic Blood Pressure: 63mmHg NIBP Mean: 76mmHg BP Location: Right upper extremity SpO2: 96% Heart Rhythm: Regular Actual Weight: 70.400kg(Converted to: 155lb 3oz) Weight Source: Standing scale Dosing Weight Clinic: 70.40kg CHRISSY DIA LPN - 06/02/2011 17:13 CDT Subjective Pain Symptoms: No CHRISSY DIA LPN - 06/02/2011 17:13 CDT Dependent Habits Tobacco Use/Currently Using: No Smoking Status: Never smoker Alcohol Use: No CHRISSY DIA LPN - 06/02/2011 17:13 CDT Caffeine Use Grid Caffeine Use: Current Type: Soft drinks Frequency: Daily CHRISSY DIA LPN - 06/02/2011 17:13 CDT Recreational Drug Use Grid Drug Use: None CHRISSY DIA LPN - 06/02/2011 17:13 CDT Allergy Allergies (Active) Suprax Estimated Onset Date: Unspecified ; Created By: JENNIFER ARCHIBALD LPN; Reaction Status: Active ; Category: Drug ; Substance: Suprax ; Type: Allergy ; Updated By: JENNIFER ARCHIBALD LPN; Reviewed Date: 10/23/2010 9:07 ASSEMBLER 1ST SHIFT Source: [facility] Synedgen Document Id: [id number] CDT!29 documented in this encounter Plan of Treatment Not on filedocumented as of this encounter Visit Diagnoses Not on filedocumented in this encounter
--- OUTSIDE RECORDS SUMMARY | 2022-04-07 13:20 | XMS_ITS | Encounter Summary ---
:1995 Author Organization [facility] Address [address] [place] [address] Care Team Providers Name Role Phone Unavailable Primary Care Provider Unavailable Encounter Details Date Type Department Care Team Description 05/01/2012 Hospital Encounter [facility] Stephanie Ge M.D. [...] How often do you attend zoroastrianism or evangelical Never 10/23/2020 services? 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 encounter Last Filed Vital Signs Vital Sign Reading Time Taken Comments Blood Pressure 100/64 05/01/2012 5:40 PM CDT Pulse 76 05/01/2012 5:40 PM CDT Temperature - - Respiratory Rate 16 05/01/2012 5:40 PM CDT Oxygen Saturation - - Inhaled Oxygen Concentration - - Weight 71.5 kg (157 lb 10.1 oz) 05/01/2012 5:40 PM CDT Height - - Body Mass Index 25.33 04/26/2012 9:43 PM CDT Body Mass Index Percentile 85.03 % 05/01/2012 5:40 PM CD T Growth Chart: [facility] (Girls, 2-20 Years) documented in this encounter Medications at Time of Discharge Medication Sig Dispensed Refills Start Date End Date albuterol (for_ACCUNEB) one unit dose qid 0 12/0409/25/2018 2.5 mg /3 mL nebulizer and q2hr prn solution fluticasone-salmeterol Inhale 1 puff. 0 2 11/04/2017 (for_ADVAIR DISKUS) 250-50 mcg/dose diskus inhaler documented as of this encounter Progress Notes Stephanie Ge M.D. - 05/01/2012 5:36 PM CDT [id number] CHIEF COMPLAINT/REASON FOR VISIT Xin comes in for repacking of the wound in her left leg. It still is indurated laterally but it is much less red and swollen, and she says it is less painful. The culture came back showing slight growth of staph aureus resistant to penicillin, and she is on Augmentin. PHYSICAL EXAMINATION GENERAL: She is afebrile. EXTREMITIES: The packing was removed. There was only just less than an inch left in the wound and the rest had fallen out. The wound was probed, and it did seem to extend under the indurated area so I do not think there is another pocket of pus. The wound was repacked with 1/4 inch gauze after Cetacaine administration to numb up the area. IMPRESSION/REPORT/PLAN She will change from Augmentin to Septra for better coverage of the staph infection. I asked her to come back in two days for repacking. Stephanie Ge M.D./[facility] Electronically Signed By: STEPHANIE GE MD On: 05/05/2012 07:47 AM Source: [facility] MHSDOLBEYNONRADSYS Document Id: [id number] documented in this encounter Nursing Notes Stuart, Historical Provider Ser - 04/29/2012 5:39 PM CDT triage dressing pt mother called concerned about the packing from an er visit on 04-26-12. She states the the packing came out part of the way and should she place it back. This nurse advised her to place the packing back if she felt comfortable doing that but to observe for any signs of infection untill the upcomingclinic appointment. This nurse also advised that she may be seen in the ER department at any time. Electronically Signed By: DANIEL PENA RN On: 04/29/2012 05:56 PM Source: [facility] POWERCHART Document Id: [id number] documented in this encounter Miscellaneous Notes Miscellaneous - Ember Bethea [email or web address].[email or web address] - 05/01/2012 5:40 PM CDT Pediatric Protocol Manager Intake/History Pediatric Protocol Manager Intake/History Entered On: 05/01/2012 17:45 CDT Performed On: 05/01/2012 17:40 CDT by EMBER BETHEA LPN Intake Chief Complaint : F/U left thigh area wound Temperature Core : 36.5C(Converted to: 97.7DegF) Peripheral Pulse Rate : 76/min Respiratory Rate : 16/min Heart Rhythm : Irregular Systolic Blood Pressure : 100mmHg Diastolic Blood Pressure : 64mmHg NIBP Mean : 76mmHg BP Location : Right upper extremity Blood Pressure Cuff Size : Regular Actual Weight : 71.5kg(Converted to: 157lb 10oz) Weight Source : Standing scale Dosing Weight Clinic : 71.50kg EMBER BETHEA LPN - 05/01/2012 17:40 CDT Subjective Pain Symptoms : No EMBER BETHEA LPN - 05/01/2012 17:40 CDT Dependent Habits Tobacco Use/Currently Using : No Tobacco Use/Last 12 months : No Tobacco Use/Advised to Quit : No Exposure to Tobacco Smoke : Care provider denies smoking in home Smoking Status : Never smoker EMBER BETHEA LPN - 05/01/2012 17:40 CDT Tobacco Use Grid Last Use : never EMBER BETHEA LPN - 05/01/2012 17:40 CDT Alcohol Use : No EMBER BETHEA LPN - 05/01/2012 17:40 CDT Caffeine Use Grid Caffeine Use : Current Type : Soft drinks Frequency : Occasionally EMBER BETHEA LPN - 05/01/2012 17:40 CDT Recreational Drug Use Grid Drug Use : None EMBER BETHEA LPN - 05/01/2012 17:40 CDT Allergy Allergies (Active) Suprax Estimated Onset Date: Unspecified ; Created By: JENNIFER ARCHIBALD LPN; Reaction Status: Active ; Category: Drug ; Substance: Suprax ; Type: Allergy ; Updated By: JENNIFER ARCHIBALD LPN; Reviewed Date: 05/01/2012 16:08 CDT Source: [facility] POWERCHART Document Id: [id number] documented in this encounter Plan of Treatment Not on filedocumented as of this encounter Visit Diagnoses Not on filedocumented in this encounter
--- OUTSIDE RECORDS SUMMARY | 2022-04-07 13:21 | XMS_ITS | Encounter Summary ---
:1995 Author Organization [facility] Address [address] [place] [address] Care Team Providers Name Role Phone Unavailable Primary Care Provider Unavailable Encounter Details Date Type Department Care Team Description 04/25/2007 Hospital Encounter HX [facility] Vin Walls, INPT/OBSRV M.D. [address] [phone] (Wo rk) Social History Tobacco Use [...] How often do you attend mu-ism or lutheran Never 10/23/2020 services? 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
--- OUTSIDE RECORDS SUMMARY | 2022-04-07 13:21 | XMS_ITS | Encounter Summary ---
:1995 Author Organization [facility] Address [address] [place] [address] Care Team Providers Name Role Phone Unavailable Primary Care Provider Unavailable Encounter Details Date Type Department Care Team Description 12/11/[address] [facility] INPT[facility]OBSRV Aleida Mejia M.D. Social History Tobacco Use [...] How often do you attend adventism or anabaptist Never 10/23/2020 services? 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
--- OUTSIDE RECORDS SUMMARY | 2022-04-07 13:21 | XMS_ITS | Encounter Summary ---
:1995 Author Organization [facility] Address [address] [place] [address] Care Team Providers Name Role Phone Unavailable Primary Care Provider Unavailable Encounter Details Date Type Department Care Team Description 08/11/2007 Hospital Encounter HX NO MAPPING Provider, Historical [...] How often do you attend protestant or jewish Never 10/23/2020 services? 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
--- OUTSIDE RECORDS SUMMARY | 2022-04-07 13:21 | XMS_ITS | Encounter Summary ---
:1995 Author Organization [facility] Address [address] [place] [address] Care Team Providers Name Role Phone Unavailable Primary Care Provider Unavailable Encounter Details Date Type Department Care Team Description 12/05/2003 Hospital Encounter HX NO MAPPING Provider, Historical [...] How often do you attend jew or jainism Never 10/23/2020 services? 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
--- OUTSIDE RECORDS SUMMARY | 2022-04-07 13:21 | XMS_ITS | Encounter Summary ---
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
--- OUTSIDE RECORDS SUMMARY | 2022-04-07 13:21 | XMS_ITS | Encounter Summary ---
:1995 Author Organization [facility] Address [address] [place] [address] Care Team Providers Name Role Phone Unavailable Primary Care Provider Unavailable Encounter Details Date Type Department Care Team Description 12/19/2008 Hospital Encounter HX [facility] INPT/OBSRV Kerry Galvan M.D. [address] [place] [address] (Wo rk) Social History Tobacco Use Types [...] How often do you attend uatsdin or synagogue Never 10/23/2020 services? 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
--- OUTSIDE RECORDS SUMMARY | 2022-04-07 13:21 | XMS_ITS | Encounter Summary ---
:1995 Author Organization [facility] Address [address] [place] [address] Care Team Providers Name Role Phone Unavailable Primary Care Provider Unavailable Encounter Details Date Type Department Care Team Description 03/07/2007 Hospital Encounter HX NO MAPPING Provider, Historical [...] How often do you attend mu-ism or oriental orthodox Never 10/23/2020 services? 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
--- OUTSIDE RECORDS SUMMARY | 2022-04-07 13:21 | XMS_ITS | Encounter Summary ---
:1995 Author Organization [facility] Address [address] [place] [address] Care Team Providers Name Role Phone Unavailable Primary Care Provider Unavailable Encounter Details Date Type Department Care Team Description 11/08/2003 Hospital Encounter HX NO MAPPING Provider, Historical [...] How often do you attend sikhism or baptism Never 10/23/2020 services? 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 documented as of this encounter Miscellaneous Notes Miscellaneous - Conversion, Historical Provider Ser - 11/08/2003 12:00 AM FLIGHT SECURITY SPECIALIST [id number] Addended by: CARLOS SANCHEZ on: 12/23/2003,4:02 PM Comment: PERTINENT INFORMATION ABSTRACTED INTO E NCOUNTER DATED 12-23-03, RECORDS FILED INTO PATIENT'S CHARTModules accepted: Progress NotesRECORDS RCVD FROM [facility] CNTR SENT TO DR MOREAU 11-08-03 Source: [facility] [id number] Document Id: [id number] documented in this encounter Plan of Treatment Not on filedocumented as of this encounter Visit Diagnoses Not on filedocumented in this encounter
--- OUTSIDE RECORDS SUMMARY | 2022-04-07 13:21 | XMS_ITS | Encounter Summary ---
:1995 Author Organization [facility] Address [address] [place] [address] Care Team Providers Name Role Phone Unavailable Primary Care Provider Unavailable Encounter Details Date Type Department Care Team Description 06/10/2009 Hospital Encounter HX [facility] CAM INPT/OBSRV Kerry Galvan M.D. [address] [place] [address] (Wo rk) Social History Tobacco Use Types [...] How often do you attend temple or pentecostal Never 10/23/2020 services? 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
--- OUTSIDE RECORDS SUMMARY | 2022-04-07 13:21 | XMS_ITS | Encounter Summary ---
:1995 Author Organization [facility] Address [address] [place] [address] Care Team Providers Name Role Phone Unavailable Primary Care Provider Unavailable Encounter Details Date Type Department Care Team Description 05/06/2008 Hospital Encounter HX [facility] CAM INPT/OBSRV Kerry Galvan M.D. [address] [place] [address] (Wo rk) Social History Tobacco Use Types [...] How often do you attend taoist or jewish Never 10/23/2020 services? 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
--- OUTSIDE RECORDS SUMMARY | 2022-04-07 13:21 | XMS_ITS | Encounter Summary ---
:1995 Author Organization [facility] Address [address] [place] [address] Care Team Providers Name Role Phone Unavailable Primary Care Provider Unavailable Encounter Details Date Type Department Care Team Description 10/09/2007 Hospital Encounter HX [facility] CAM INPT/OBSRV Armond Salguero M.D. [address] [place], [place] [address] (Wo rk) Social History Tobacco Use Types [...] How often do you attend faith or yazidi Never 10/23/2020 services? 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
--- OUTSIDE RECORDS SUMMARY | 2022-04-07 13:21 | XMS_ITS | Encounter Summary ---
:1995 Author Organization [facility] Address [address] [place] [address] Care Team Providers Name Role Phone Unavailable Primary Care Provider Unavailable Encounter Details Date Type Department Care Team Description 04/13/2007 Hospital Encounter HX [facility] Vin Walls, INPT/OBSRV M.D. [address] [phone] (Wo rk) Social History Tobacco [...] How often do you attend episcopal or yazidi Never 10/23/2020 services? 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
--- OUTSIDE RECORDS SUMMARY | 2022-04-07 13:21 | XMS_ITS | Encounter Summary ---
:1995 Author Organization [facility] Address [address] [place] [address] Care Team Providers Name Role Phone Unavailable Primary Care Provider Unavailable Encounter Details Date Type Department Care Team Description 06/28/2007 Hospital Encounter HX [facility] CAM INPT/OBSRV Kerry Galvan M.D. [address] [place] [address] (Wo rk) Social History Tobacco Use Types [...] How often do you attend confucianism or buddhism Never 10/23/2020 services? 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
--- OUTSIDE RECORDS SUMMARY | 2022-04-07 13:21 | XMS_ITS | Encounter Summary ---
:1995 Author Organization [facility] Address [address] [place] [address] Care Team Providers Name Role Phone Unavailable Primary Care Provider Unavailable Encounter Details Date Type Department Care Team Description 04/04/2007 Hospital Encounter HX NO MAPPING Provider, Historical [...] How often do you attend orthodoxy or anglican Never 10/23/2020 services? 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/2017 10:51 AM CHURCH ADMINISTRATOR documented as of this encounter Medications at [...]
--- OUTSIDE RECORDS SUMMARY | 2022-04-07 13:21 | XMS_ITS | Encounter Summary ---
:1995 Author Organization [facility] Address [address] [place] [address] Care Team Providers Name Role Phone Unavailable Primary Care Provider Unavailable Encounter Details Date Type Department Care Team Description 08/11/2007 Hospital Encounter HX [facility] CAM INPT/OBSRV Kerry Galvan M.D. [address] [place] [address] (Wo rk) Social History Tobacco Use Types [...] 10/23/2020 relatives? How often do you attend scientology or confucianist Never 10/23/2020 services? 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
--- OUTSIDE RECORDS SUMMARY | 2022-04-07 13:21 | XMS_ITS | Encounter Summary ---
:1995 Author Organization [facility] Address [address] [place] [address] Care Team Providers Name Role Phone Unavailable Primary Care Provider Unavailable Encounter Details Date Type Department Care Team Description 09/13/2009 Hospital Encounter HX [facility] CAM INPT/OBSRV Kerry Galvan M.D. 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
--- OUTSIDE RECORDS SUMMARY | 2022-04-07 13:21 | XMS_ITS | Encounter Summary ---
:1995 Author Organization [facility] Address [address] [place] [address] Care Team Providers Name Role Phone Unavailable Primary Care Provider Unavailable Encounter Details Date Type Department Care Team Description 12/05/2003 Hospital Encounter HX [facility] INTERNMED Rick Downey M.D. [address] [place] [phone] (Wo rk) Social History Tobacco [...] 10/23/2020 relatives? How often do you attend mandaeism or adventist Never 10/23/2020 services? 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 Paras Galvan from [facility] for evaluation of chronic nasal congestion associated with recent episodes of wheezing and difficulty breathing. Mother states that about one month ago Carly had the gradual onset of short ness of breath and difficulty breathing that became quite severe and resulted in [facility] in [place]. In the ER she was given two Albuterol nebulizer treatments and sent luisito e on oral Prednisolone with gradual, but complete clearing of all her symptoms. About ten days later , she had another episode that was not as quite as severe, but it was again treated wit Albuterol and oral Prednisolone. She was then started on Singulair, which she is on currently. Four days ago she had another episode of wheezing that responded well to two uses of her Albuterol inhaler. In additi on, she has had several year history of chronic nasal congestion, probably dating back to early child oneill, or perhaps infancy. This has not been treated specifically with antihistamine or nasal steroid s and in fact, recently has been somewhat improved. Dr. Galvan has felt that perhaps her symptoms may be allergy induced and would like to have her evaluated further. REVIEW OF SYSTEMS:CONSTITUTI ONAL: Negative.SKIN: She has had some dryness and itching over the backs of her hands and wrists o leticia the past few months. Otherwise negative.EYES: Negative for itching and swelling. ENT: Chron ic congested stuffy nose, but little rhinorrhea and little sneezing or itching. RESPIRATORY: In past she has not had any problems with exercise induced coughing or wheezing. She was hospitalized for pneumonia one year ago, but did not receive bronchodilators at that time. GI: Negative.MS: Negative.PAST HISTORY: She had a limited tonsillectomy at age 5, otherwise as noted above. FAMIL Y HISTORY: The patient's mother has eczema and her father has allergies to dust and mold since child oneill and continues to have problems with sinusitis. She has two siblings that have no allergy proble ms. OBJECTIVE: She is well developed, well nourished in no acute distress. SKIN: There is an are a of dryness and lichenification noted over the dorsum of both hands and extending up to involve the wrist areas. The palms are spared. Some excoriations are also noted. Otherwise skin is clear.LYMPH ATICS: Negative.HEENT: Normocephalic. Eyes are clear with no redness or swelling. No discharge. Examination of the nose reveals mild mucosal edema and erythema, otherwise negative. Tympanic membr anes are clear. Throat is negative. Tonsils are 1+ bilaterally. No redness and no exudate.NECK: Supple. No adenopathy. No masses.LUNGS: Clear to auscultation.HEART: Regular rate without murmur s.EXTREMITIES: No clubbing or edema. No cyanosis.The patient's peak flow today is 220 using her own peak flow meter from home, but only 160 with our meter. Skin tests are performed to common indoo r and outdoor inhalants and were positive to numerous trees, grass, ragweed, dust mites, alternaria, hormodendrum, and cat. Dog was negative, but no intradermal testing was done. ASSESSMENT:1. Pe rennial allergic rhinitis clinically with potentially seasonal allergic rhinitis as well. 2. Multi ple episodes of acute wheezing.PLAN: Over 50 minutes was spent with the patient and her mother fac e to face, of which 30 minutes was devoted to counseling. 1. I discussed the inflammatory nature o f asthma and the importance of treating this for the prevention of symptoms. I also explained variou s asthma triggers including infections, exercise, irritants and allergens and the role of various all ergens in causing various degrees of asthma symptoms.2. Allergen avoidance measures were discussed and recommended. Handouts were given for this purpose.3. Asthma action plan was prepared for the p atient using value 220 as her personal best. 4. For now it was recommended that the patient continu e Singulair, but if she has any significant breakthrough symptoms, especially if they are not readily relieved with Albuterol, would switch to an inhaled steroid. I also discussed the benefits of Singu lair in treating nasal symptoms, but would also consider using Zyrtec or over the counter antihistami ne. Nasal steroid spray was mentioned, but not prescribed at this time. The patient was also given a prescription for Pediapred to have on hand in the event of an asthma exacerbation, which is not res ponding quickly to Albuterol. 5. The patient will return for follow-up in three months, but mother will call if she is having any significant exacerbations so that we might consider switching to an i nhaled steroid such as Flovent or even Advair. A letter will be sent to her referring physician, Dr. Galvan for his review. Tang Downey M.D./Paras: 12/05/2003T: 12/10/2003 CC : Dr. Paras Galvan [facility] Document Id: [id number] documented in this encounter Miscellaneous Notes Miscellaneous - Conversion, Historical Provider Ser - 12/05/2003 5:30 PM CDT [id number] December 05, 2003 Paras Galvan M.D. [address] [id number] Dear Paras: I had the opportunity to evaluate your patient, Carly Joseph for her recent difficulties withwheezing and her more chronic problem with nasal congestion. Her history is one of which you are familiar. Her physical examination today revealed mild nasal congestion, but was otherwise within normal limits. Her peak flow using her own peak flow meter was 220, which would be considered her personal best. Skin testing was performed and the patient reacted to numerous trees, grass, ragweed, house dust mites, mold and cat. I certainly would conclude that Carly has at least perennial allergic rhinitis without significantseasonal component clinically. It certainly is possible that over the next few years she may developmore seasonal allergies, but at this time it is uncertain what to make of some of her positive tests. It certainly would appear that she also has some asthma, however, I explained to the mother why I would hold off on labeling her as such, because of her relative short history. Nonetheless, I agree with treating her with Singulair and using Albuterol for relief of symptoms as needed. I also gave her a prescription for Pediapred to have on hand at home should she develop a severe episode in the future that fails to respond quickly to Albuterol. If Carly has significant breakthrough symptoms while on Singulair, I would quickly switch her to an inhaled steroid staring with Flovent since she alreadyhas learned the technique of using a meter dose inhaler. I also discussed other measures that could be taken such as topical nasal steroids or antihistamines, but did not prescribe them at this time. Even though Carly's history of wheezing seems to be relatively recent, the severity with which it has surfaced certainly makes me cautious as to her prognosis. I would like to see her back for follow-up in three months to re- evaluate her and make further recommendations at that time. Thank you for allowing me to participate in her care. Please contact me with any questions. Sincerely, Tang Downey M.D. RAND/kiran Source: [facility] RWHXTRANSXRTFSYS Document Id: [id number] documented in this encounter Plan of Treatment Not on filedocumented as of this encounter Visit Diagnoses Not on filedocumented in this encounter
--- OUTSIDE RECORDS SUMMARY | 2022-04-07 13:21 | XMS_ITS | Encounter Summary ---
:1995 Author Organization [facility] Address [address] [place] [address] Care Team Providers Name Role Phone Unavailable Primary Care Provider Unavailable Encounter Details Date Type Department Care Team Description 04/04/2007 Hospital Encounter HX [facility] Vin Walls, INPT/OBSRV M.D. [address] [place] [phone] (Wo rk) Social History Tobacco Use [...] 10/23/2020 relatives? How often do you attend lutheran or protestant Never 10/23/2020 services? 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
--- OUTSIDE RECORDS SUMMARY | 2022-04-07 13:21 | XMS_ITS | Encounter Summary ---
:1995 Author Organization [facility] Address [address] [place] [address] Care Team Providers Name Role Phone Unavailable Primary Care Provider Unavailable Encounter Details Date Type Department Care Team Description 07/01/[address] [facility] CAM INPT/OBSRV Kerry Galvan M.D. [address] [place] [address] (Wo rk) Social History Tobacco Use Types [...] How often do you attend jainism or temple Never 10/23/2020 services? 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
--- OUTSIDE RECORDS SUMMARY | 2022-04-07 13:21 | XMS_ITS | Encounter Summary ---
:1995 Author Organization [facility] Address [address] [place] [address] Care Team Providers Name Role Phone Unavailable Primary Care Provider Unavailable Encounter Details Date Type Department Care Team Description 12/23/2003 Hospital Encounter HX NO MAPPING Provider, Historical [...] How often do you attend hinduism or yarsanism Never 10/23/2020 services? 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 Thanks [facility] news reporter Source: [facility] RWHXTRANSXSYS Document Id: [id number] documented in this encounter Plan of Treatment Not on filedocumented as of this encounter Visit Diagnoses Not on filedocumented in this encounter
--- OUTSIDE RECORDS SUMMARY | 2022-04-07 13:21 | XMS_ITS | Encounter Summary ---
:1995 Author Organization [facility] Address [address] [place] [address] Care Team Providers Name Role Phone Unavailable Primary Care Provider Unavailable Encounter Details Date Type Department Care Team Description 03/21/2007 Hospital Encounter HX NO MAPPING Provider, Historical [...] How often do you attend scientology or methodist Never 10/23/2020 services? 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
== END 2022-04-07 13:11 | disposition home or self-care (01) ==
LOC: US 13:10
PROVIDERS: Visit Provider Pediatrics Neonatal-Perinatal Medicine
DX: O99.212 Obesity complicating pregnancy, second trimester (principal); Z3A.20 20 weeks gestation of pregnancy
CPT/HCPCS: 76811

== ENCOUNTER 2022-06-01 11:01 | Outpatient (CLI) | payer BC, OTHER, SELFPAY ==
--- OUTSIDE RECORDS SUMMARY | 2022-06-01 09:35 | XMS_ITS | Encounter Summary ---
:1995 Author Organization [facility] Address [address] [place] [address] Care Team Providers Name Role Phone Teresita Barkley M.D. Primary Care Provider Encounter Details Date Type Department Care Team Description 11/10/2021 Orders Only Department of Family Ary Purcell, Medicine, [place] [facility], in [address] [phone] Social History Tobacco Use [...] one Less than mo nthly 03/02/2019 occasion? Social Isolation Answer Date Recorded In a typical week, how many times do you talk on Twice a wee k 10/23/2020 the phone with family, friends, or neighbors? How often do you get together with friends or Once a week 10/23/2020 relatives? How often do you attend cheondoism or shinto Never 10/23/2020 services? 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 PCP - General 01/15/[address] [place] [phone] documented as of this encounter
--- OUTSIDE RECORDS SUMMARY | 2022-06-01 09:35 | XMS_ITS | Encounter Summary ---
:1995 Author Organization [facility] Address [address] [place] [address] Care Team Providers Name Role Phone [facility] Primary Care Provider Unavaila ble Reason for Visit Reason Comments Med Refill Encounter Details Date Type Department Care Team Description 12/09/2021 Refill Department of Family Medicine, aVni Purcell, Med Refill [facility], in [place] [facility], [facility] [address] [phone] Social History Tobacco Use [...] How often do you attend worship or gnosticist Never 10/23/2020 services? 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 PCP - General 06/07/19 01/14/22 documented as of this encounter
--- OUTSIDE RECORDS SUMMARY | 2022-06-01 09:35 | XMS_ITS | Encounter Summary ---
:1995 Author Organization [facility] Address [address] [place] [address] Care Team Providers Name Role Phone Teresita Barkley M.D. Primary Care Provider Encounter Details Date Type Department Care Team Description 10/26/2021 Orders Only Department of Family Ary Purcell, Medicine, [place] [facility], in [address] [phone] Social History Tobacco Use [...] How often do you attend jewish or druze Never 10/23/2020 services? 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 PCP - General 01/15/[address] [place] [phone] documented as of this encounter
--- OUTSIDE RECORDS SUMMARY | 2022-06-01 09:35 | XMS_ITS | Encounter Summary ---
:1995 Author Organization [facility] Address [address] [place] [address] Care Team Providers Name Role Phone Ary Purcell P.A.-C., P.A. Primary Care Provider Unavaila ble Reason for Visit Reason Comments Med Refill Encounter Details Date Type Department Care Team Description 11/10/2021 Refill Department of Family Medicine, Vani Purcell, Med Refill [facility], in [place] Gabriel, P .A. [address] [phone] Social History Tobacco Use [...] How often do you attend mormon or restorationist Never 10/23/2020 services? 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 PCP - General 06/07/19 01/14/22 documented as of this encounter
--- OUTSIDE RECORDS SUMMARY | 2022-06-01 09:35 | XMS_ITS | Encounter Summary ---
:1995 Author Organization [facility] Address [address] [place] [address] Care Team Providers Name Role Phone Teresita Barkley M.D. Primary Care Provider Reason for Visit Reason Comments Med Refill Encounter Details Date Type Department Care Team Description 03/16/2022 Refill Department of Family Medicine, Teresita Galarza M.D. Med Refill [facility], in [place] [address] [address] [place], [place] [phone] Social History Tobacco Use Types Packs/Day Years [...] How often do you attend christianity or mu-ism Never 10/23/2020 services? 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 PCP - General 01/15/[address] [place] [phone] documented as of this encounter
--- OUTSIDE RECORDS SUMMARY | 2022-06-01 09:35 | XMS_ITS | Encounter Summary ---
:1995 Author Organization [facility] Address [address] [place] [address] Care Team Providers Name Role Phone Teresita Barkley M.D. Primary Care Provider Encounter Details Date Type Department Care Team Description 12/09/2021 Orders Only Department of Family Ary Purcell, Medicine, Elma P.A.-C., P.A. Clinic, in [address] [phone] Social History Tobacco Use [...] How often do you attend pentecostalism or samaritan Never 10/23/2020 services? 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 PCP - General 01/15/[address] [place] [phone] documented as of this encounter
--- OUTSIDE RECORDS SUMMARY | 2022-06-01 09:35 | XMS_ITS | Encounter Summary ---
:1995 Author Organization [facility] Address [address] [place] [address] Care Team Providers Name Role Phone Teresita Barkley M.D. Primary Care Provider Encounter Details Date Type Department Care Team Description 01/07/2022 Orders Only Department of [facility] Anju Serrano AP RN, Medicine, [place] C.N.P., D .N.P. [facility], in [address] [place] [phone] Social History Tobacco Use Types Packs/Day Years [...] How often do you attend yazidism or gnosticism Never 10/23/2020 services? 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 PCP - General 01/15/[address] [place] [phone] documented as of this encounter
--- OUTSIDE RECORDS SUMMARY | 2022-06-01 09:35 | XMS_ITS | Encounter Summary ---
:1995 Author Organization [facility] Address [address] [place] [address] Care Team Providers Name Role Phone Ary Purcell P.A.-C., P.A. Primary Care Provider Unavaila ble Reason for Referral Outpatient (Routine) - Closed Specialty Diagnoses / Procedures Referred By Contact Refer red To Contact Diagnoses Pain Wrist Left Ary Purcell P.A.-C., [facility] Region Procedures DX Wrist Left 3+ Views P.A. 200 [place] [address] Referral ID Status Reason Start Date Expiration Date Visits Requ ested Visits Authorized [id number] Closed 10/26/2021 10/26/2022 1 1 Reason for Visit Outpatient (Routine) - Closed Specialty Diagnoses / Procedures Referred By Contact Refer red To Contact Diagnoses Pain Wrist Left Ary Purcell P.A.-C., [facility] Region Procedures DX Wrist Left 3+ Views P.A. 200 [place] [phone] Referral ID Status Reason Start Date Expiration Date Visits Requ ested Visits Authorized [id number] Closed 10/26/2021 10/26/2022 1 1 Encounter Details Date Type Department Care Team Description 10/26/2021 Hospital Encounter Department of Radiology Sigifredo Purcell, Pain Wrist Left in [facility], P.A. [address] [phone] Social History Tobacco Use Types Packs/Day Years [...] 10/23/2020 relatives? How often do you attend caodaism or yarsanism Never 10/23/2020 services? 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 AVOID FACE OR GROIN. fluticasone propionate Inhale 2 puffs 2 36 g 3 021 (FLOVENT HFA) 220 (two) times a day. mcg/actuation inhaler Rinse mouth with water after use to reduce aftertaste and incidence of candidiasis. montelukast (SINGULAIR) Take 1 tablet (10 mg 90 tablet 3 10 mg tablet total) by mouth at bedtime. triamcinolone (KENALOG) APPLY TO AFFECTED 80 g 2 08/1308/13/2022 0.1 % cream AREA(S) ONE TO TWO TIMES PER DAY NEEDED. AVOID FACE AND GROIN albuterol 90 Inhale 2 puffs every 36 g 3 08/13/2021 mcg/actuation inhaler 4 (four) hours as needed for wheezing. busPIRone (BUSPAR) 5 mg Take 1 tablet (5 mg 90 tablet 2 11/10/2021 tablet total) by mouth 3 (three) times a day. escitalopram (Lexapro) Take one tablet by 90 tablet 3 12/2501/07/2022 20 mg tabletIndications: mouth daily. Anxiety Generalized Disorder documented as of this [...] Ary Purcell P.A.-C., P.A. IMG DIAGNOSTIC IMAGING [place] OCEDURES documented in this encounter Visit Diagnoses Diagnosis Pain Wrist Left documented in this encounter Additional Health Concerns Assessment Noted Time PHQ-9 Depression Total Score: 1 09/01/2021 12:11 PM CS T documented as of this encounter Care Teams Box Estimator Relationship Specialty Start Date End Date Ary Purcell P.A.-C., P.A. PCP - General 06/07/19 01/14/22 documented as of this encounter
--- OUTSIDE RECORDS SUMMARY | 2022-06-01 09:35 | XMS_ITS | Clinical Summary ---
:1995 Author Organization [facility] Address [address] [place] [address] Care Team Providers Name Role Phone Teresita Barkley M.D. Primary Care Provider Source Comments Patient records contain information from all sites at [facility]. For routine questions regarding patient records, call [phone] during business hours, M-F 8:00 AM - 5:00 PM Central Time. Record requests for emergency care only can be directed to [phone] at any time.[facility] Allergies Active Allergy Reactions Severity Noted Date Comments Cefixime Other (see comments) 12/26/2013 Unknown reaction as a child Medications Medication Sig Dispensed Refills Start Date End Date Status busPIRone (BUSPAR) 5 Take 1 tablet (5 270 tablet 3 03/16/2022 Active mg tablet mg total) by mouth 3 (three) times a day. escitalopram Take 1 tablet (20 90 tablet 3 01/07/2022 Active (LEXAPRO) 20 mg mg total) by tabletIndications: mouth daily. Anxiety Generalized Disorder albuterol 90 Inhale 2 puffs 54 g 3 12/09/2021 A ctive mcg/actuation every 4 (four) inhaler hours as needed for wheezing. fluocinonide (LIDEX) APPLY TO AFFECTED 60 g 0 10/26/2021 10/26/2022 Active 0.05 % ointment AREA(S) TOPICALLY TWO TIMES A DAY NEEDED FOR IRRITATION OR RASH. AVOID FACE OR GROIN. triamcinolone APPLY TO AFFECTED 80 g 2 08/13/2021 022 Active (KENALOG) 0.1 % AREA(S) ONE TO cream TWO TIMES PER DAY NEEDED. AVOID FACE AND GROIN fluticasone Inhale 2 puffs 2 36 g 3 08/13/2021 Active propionate (FLOVENT (two) times a HFA) 220 day. Rinse mouth mcg/actuation with water after inhaler use to reduce aftertaste and incidence of candidiasis. albuterol 2.5 mg /3 INHALE 3 ML (1 150 mL 1 08/13/202107/17 Active mL nebulizer VIAL) BY MOUTH solution VIA NEBULIZER EVERY FOUR HOURS NEEDED FOR WHEEZING montelukast Take 1 tablet (10 90 tablet 3 08/13/2021 Active (SINGULAIR) 10 mg mg total) by tablet mouth at bedtime. omeprazole Take 1 capsule 42 capsule 2 05/18/2022 Ac tive (PriLOSEC) [address] (20 mg total) by capsule mouth daily for 6 weeks. Active Problems Patient Care Coordination Note Formatting [...] Added automatically from request for fracisco joseph [id number] Obesity Body Mass Index 30-39.9 Adult 02/19/2019 Bipolar II Disorder 07/01/2017 10/11/2018 Depressive Disorder 06/20/2015 07/01/2017 Overview: Depression NOS Hypertension Gestational Delivered 12/27/201303/08 Overview: Hypertension HTN Gestational (PIH) Deliv ered Asthma NOS 02/15/2012 10/12/2017 Overview: Asthma NOS (493.90) Exercise induced Pain Hip Left 10/24/2020 Encounters Date Type Specialty Care Team Description 03/16/2022 Orders Only Family Medicine Teresita Barkley M.D. 03/16/2022 Refill Family Medicine Teresita Barkley M.D. Me d Refill from Last 3 Months Immunizations Name [...] 10/23/2020 relatives? How often do you attend tenriism or restorationism Never 10/23/2020 services? 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 Filed Vital Signs Vital Sign Reading Time Taken Comments Blood Pressure 131/88 10/26/2021 5:20 PM CDT Pulse 64 10/26/2021 5:20 PM CDT Temperature 36.3 ??C (97.3 ??F) 10/26/2021 5:20 PM CDT Respiratory Rate 17 10/26/2021 5:20 PM CDT Oxygen Saturation 97% 08/13/2021 8:26 AM FIELD ASSOCIATE Inhaled Oxygen Concentration - - Weight 122 kg (268 lb 1.3 oz) 10/26/2021 5:20 PM CDT Height 167.5 cm (5' 5.95) 10/24/2020 8:34 AM FIELD ASSOCIATE Body Mass Index 43.34 10/24/2020 8:34 AM FIELD ASSOCIATE Plan of Treatment Health Maintenance Due Date [...] (3 - Td 10/25/2023 10/24/2013, or Tdap) Chlamydia and Gonorrhea Screening Discontinued 03/08/2018, , 04/05/2016, Additional history exists Medical Devices Implanted Type Area Community Health Educator Device Shelf Model / Identifier Expiration Serial / Date Lot Scrw Lcd St Fthrd 3.5x12 - [id number] - [id number] Ankle Left: Depuy Synthes 204.012 / Implanted: Qty: 2 on 02/20/2019 by Bruno Verde M.D. at [facility] Implant Ankle 204.012 / Scrw Dcp St Fthrd 3.5x10 - [id number] Hardware Left: Depuy Syn thes 204.010 / Implanted: Qty: 2 on 02/20/2019 by Bruno Verde M.D. at [facility] e.g. Ankle / pins/screws/ rods Insurance Payer Benefit Plan / Subscriber ID Effective Phone Address T ype Group Dates [place] [employer] [id number] 2019-Prese [address] [place] Medicaid HMO HEALTH [address] [id number] Care Teams Home Performance Consultant Relationship Specialty Start Date End Date Teresita Barkley M.D. PCP - General 01/15/[address] [place] [phone]
--- OUTSIDE RECORDS SUMMARY | 2022-06-01 09:35 | XMS_ITS | Encounter Summary ---
:1995 Author Organization [facility] Address [address] [place] [address] Care Team Providers Name Role Phone Teresita Barkley M.D. Primary Care Provider Encounter Details Date Type Department Care Team Description 03/16/2022 Orders Only Department of Family Min Barkley M.D. [facility], [address], in [facility] [phone] [place] [address] [place] [phone] Social History Tobacco Use Types Packs/Day Years [...] often do you attend roman catholic or restorationist Never 10/23/2020 services? 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 PCP - General 01/15/[address] [place] [phone] documented as of this encounter
--- OUTSIDE RECORDS SUMMARY | 2022-06-01 09:35 | XMS_ITS | Encounter Summary ---
:1995 Author Organization [facility] Address [address] [place] [address] Care Team Providers Name Role Phone Ary Purcell P.A.-C., P.A. Primary Care Provider Unavaila ble Reason for Visit Reason Comments Med Refill Encounter Details Date Type Department Care Team Description 01/07/2022 Refill Department of Family Medicine, Vani Purcell, Med Refill [facility], in [place] Gabriel, P .A. [address] [phone] Social History Tobacco Use [...] How often do you attend mormonism or jain Never 10/23/2020 services? 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 PCP - General 06/07/19 01/14/22 documented as of this encounter
--- OUTSIDE RECORDS SUMMARY | 2022-06-01 09:36 | XMS_ITS | Encounter Summary ---
:1995 Author Organization [facility] Address [address] [place] [address] Care Team Providers Name Role Phone Ary Purcell P.A.-C., P.A. Primary Care Provider Unavaila ble Reason for Visit Reason Comments Post Ed Visit Follow-up ED visit last night. Still h aving troubles breathing. Outpatient (Routine) - Closed Specialty Diagnoses / Procedures Referred By Contact Refer red To Contact Emergency Medicine Diagnoses Asthma Extrinsic With Acute Exacerbation (HCC) [facility] [address] [place] [phone] Referral ID Status Reason Start Date Expiration Date Visits Requ ested Visits Authorized [id number] Closed 09/08/2020 09/08/2021 1 1 Encounter Details Date Type Department Care Team Description 09/09/2020 Office Visit Department of Family Ary Purcell Ast hma Extrinsic With Acute Exacerbation (HCC) (Primary Dx); [facility], [place] Gabriel, P.A. [facility] [address] [phone] Social History Tobacco Use Types [...] How often do you attend congregation or jewish Never 10/23/2020 services? 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 documented as of this encounter Last Filed Vital Signs Vital Sign Reading Time Taken Comments Blood Pressure 132/81 09/09/2020 10:01 AM TOP LIFT AND AUTOMATIC WINDOW REPAIRER Pulse 98 09/09/2020 10:01 AM TOP LIFT AND AUTOMATIC WINDOW REPAIRER Temperature 36.6 ??C (97.9 ??F) 09/09/2020 10:01 AM TOP LIFT AND AUTOMATIC WINDOW REPAIRER Respiratory Rate 28 09/09/2020 10:01 AM TOP LIFT AND AUTOMATIC WINDOW REPAIRER Oxygen Saturation 93% 09/09/2020 10:01 AM TOP LIFT AND AUTOMATIC WINDOW REPAIRER Inhaled Oxygen Concentration - - Weight 118 kg (260 lb 12.9 oz) 09/09/2020 10:01 AM TOP LIFT AND AUTOMATIC WINDOW REPAIRER Height - - Body Mass Index 42.09 02/20/2019 1:57 PM CDT documented in this encounter Progress Notes Ary Purcell, P.A. - 09/09/2020 10:00 AM CST SUBJECTIVE CHIEF COMPLAINT/REASON FOR VISIT Carly Phammarlon Joseph LPN is a 25 y.o. female [...] content. Total time: 22 minutes Ranjana Alexandra LIFT AND AUTOMATIC WINDOW REPAIRER documented in this encounter Plan of Treatment Not on filedocumented as of this encounter Procedures Procedure Name Priority Date/Time Associated Diagnosis Comme nts D-DIMER, P Routine 09/09/2020 10:38 AM Dyspnea Results for this TOP LIFT AND AUTOMATIC WINDOW REPAIRER procedure are i n the results section . documented in this encounter Results D-Dimer (09/09/2020 10:38 AM TOP LIFT AND AUTOMATIC WINDOW REPAIRER) P athologist Signature D-Dimer, P <220 <=500 ng/mL 09/09/2020 [facility] FEU 11:18 AM TOP LIFT AND AUTOMATIC WINDOW REPAIRER Comment: ----ADDITIONAL INFORMATION---- D-dimer values less than or equal to 500 ng/mL fibrinogen equivalent units (FEU) may be used in co njunction with clinical pre-test probability to exclude deep vein thrombosis (DVT) and/or pulmonary emboli sm (PE). Specimen Anatomical Collection Method Collection Time Receive d Time (Source) Location / / Volume Laterality Blood (Blood, 09/09/2020 10:38 09/09/2020 Venous) AM TOP LIFT AND AUTOMATIC WINDOW REPAIRER 10:44 AM TOP LIFT AND AUTOMATIC WINDOW REPAIRER Ary Purcell P.A.-C., P.A. LAB BLOOD ADD-ON Performing Organization Address City/State/[facility] Code Phon e Number [id number] [place] [address] [place] [address] System in [address] documented in this encounter Visit Diagnoses Diagnosis Asthma Extrinsic With Acute Exacerbation (HCC) - Primary Dyspnea documented in this encounter Additional Health Concerns Assessment Noted Time PHQ-9 Depression Total Score: 10 11/08/2018 12:47 PM C DT documented as of this encounter Care Teams Ion Implant Machine Operator Relationship Specialty Start Date End Date Ary Purcell P.A.-C., P.A. PCP - General 06/07/19 01/14/22 documented as of this encounter
--- OUTSIDE RECORDS SUMMARY | 2022-06-01 09:36 | XMS_ITS | Encounter Summary ---
:1995 Author Organization [facility] Address [address] [place] [address] Care Team Providers Name Role Phone Ary Purcell P.A.-C., P.A. Primary Care Provider Unavaila ble Reason for Visit Reason Comments Med Refill Encounter Details Date Type Department Care Team Description 04/24/2021 Refill Department of Family Medicine, Vani Purcell, Med Refill [facility], in [place] Gabriel, P .A. [address] [phone] Social History Tobacco Use [...] 10/23/2020 relatives? How often do you attend episcopalian or rastafarian Never 10/23/2020 services? 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 Historical med list shows the prescription has . Please renew orreject as appropriate. Thank you. Now requested by [facility] - Hakeem Genao. documented in this encounter Plan of Treatment Not on filedocumented as of this encounter Visit Diagnoses Not on filedocumented in this encounter Additional Health Concerns Assessment Noted Time PHQ-9 Depression Total Score: 1 04/21/2021 8:46 AM CDT documented as of this encounter Care Teams Senior Advisory Relationship Specialty Start Date End Date Ary Purcell P.A.-C., P.A. PCP - General 06/07/19 01/14/22 documented as of this encounter
--- OUTSIDE RECORDS SUMMARY | 2022-06-01 09:36 | XMS_ITS | Encounter Summary ---
:1995 Author Organization [facility] Address [address] [place] [address] Care Team Providers Name Role Phone Ary [...] Expiration Date Visits Requ ested Visits Authorized [id number] Closed 08/04/2021 08/04/2022 1 1 Encounter Details Date Type Department Care Team Description 08/13/2021 Comprehensive Visit Department of [facility] Ary Purcell Anxiety (Primary Dx); MedicineYulia P.A.-C., Depression Major One Episode Full Remission (HCC); [facility] Asthma Mode rate Persistent (HCC); [place], Dermatitis Akhil [address] [place] [phone] Social History Tobacco Use Types Packs/Day Years [...] 10/23/2020 relatives? How often do you attend restorationist or baptism Never 10/23/2020 services? Do you belong to any clubs or organizations such as No 12/04/2019 restorationist groups, unions, fraternal or athletic groups, or [...] at Date Recorded Female 08/12/2017 10:51 AM CREDIT AND LOAN COLLECTIONS SUPERVISOR documented as of this encounter Last Filed Vital Signs Vital Sign Reading Time Taken Comments Blood Pressure 117/81 08/13/2021 8:26 AM CREDIT AND LOAN COLLECTIONS SUPERVISOR Pulse 81 08/13/2021 8:26 AM CREDIT AND LOAN COLLECTIONS SUPERVISOR Temperature 35.8 ??C (96.4 ??F) 08/13/2021 8:26 AM CREDIT AND LOAN COLLECTIONS SUPERVISOR Respiratory Rate 20 08/13/2021 8:26 AM CREDIT AND LOAN COLLECTIONS SUPERVISOR Oxygen Saturation 97% 08/13/2021 8:26 AM CREDIT AND LOAN COLLECTIONS SUPERVISOR Inhaled Oxygen Concentration - - Weight 119 kg (262 lb 2 oz) 08/13/2021 8:26 AM CREDIT AND LOAN COLLECTIONS SUPERVISOR Height - - Body Mass Index 42.38 10/24/2020 8:34 AM CREDIT AND LOAN COLLECTIONS SUPERVISOR documented in this encounter Patient Instructions Patient InstructionsAry Purcell P.A.-Mitchell., P.A. - 08/13/2021 8:30 AM CREDIT AND LOAN COLLECTIONS SUPERVISOR For depression: -continue lexapro 20mg daily -vitamin D3 2000 IU daily -light therapy 10-15 min daily For anxiety: -start buspar 5mg 2-3 times daily Will check in on the portal in 1-2 weeks Start triamcinolone cream on hands twice daily for 2 weeks -emollients such as aquaphor or eucerin cream as well IT AND LOAN COLLECTIONS SUPERVISOR documented in this encounter Progress Notes Ary [...] eczema bilateral hands. She has been using gefc-oyc-pkdalot hydrocortisone cream per recommendations from visit in [...] time: 25 minutes Ary Purcell P.A.-C., P.A. IT AND LOAN COLLECTIONS SUPERVISOR documented in this encounter Plan of Treatment Not on filedocumented as of this encounter Visit Diagnoses Diagnosis Anxiety - Primary Depression Major One Episode Full Remiss ion (HCC) Asthma Moderate Persistent (HCC) Dermatitis Atopic documented in this encounter Additional Health Concerns Assessment Noted Time PHQ-9 Depression Total Score: 11 08/13/2021 8:00 AM GE T documented as of this encounter Care Teams Food And Drink Factory Workers Relationship Specialty Start Date End Date Ary Purcell P.A.-C., P.A. PCP - General 06/07/19 01/14/22 documented as of this encounter
--- OUTSIDE RECORDS SUMMARY | 2022-06-01 09:36 | XMS_ITS | Encounter Summary ---
:1995 Author Organization [facility] Address [address] [place] [address] Care Team Providers Name Role Phone Ary Purcell P.A.-C., P.A. Primary Care Provider Ailin diaz Encounter Details Date Type Department Care Team Description 05/20/2020 Orders Only [facility] Pharm[facility] - Ary [place], [address] [facility] 1 P.A.-[place] [phone] Social History Tobacco Use Types [...] How often do you attend alevism or amish Never 10/23/2020 services? 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 PCP - General 06/07/19 01/14/22 documented as of this encounter
--- OUTSIDE RECORDS SUMMARY | 2022-06-01 09:36 | XMS_ITS | Encounter Summary ---
:1995 Author Organization [facility] Address [address] [place] [address] Care Team Providers Name Role Phone Ary Purcell P.A.-C., P.A. Primary Care Provider Unavaila ble Reason for Referral Outpatient (Routine) - Closed Specialty Diagnoses / Procedures Referred By Contact Refer red To Contact Emergency Medicine Diagnoses Asthma Extrinsic With Acute Exacerbation (HCC) Robe Payne [facility] [place] Jang III, M.D. [address] [phone] Referral ID Status Reason Start Date Expiration Date Visits Requ ested Visits Authorized [id number] Closed 09/08/2020 09/08/2021 1 1 D RANGING CREWMEMBER Reason for Visit Reason Comments Shortness of [...] Emergency Department Sherman PUENTE M.D. Acute Exacerbation [id number] (HCC) (Primary Dx) [place] [phone] (Wo rk) Social History Tobacco Use [...] How often do you attend faith or yazdanism Never 10/23/2020 services? Do you belong to [...] at Date Recorded Female 08/12/2017 10:51 AM SOUND RANGING CREWMEMBER documented as of this encounter Last Filed Vital Signs Vital Sign Reading Time Taken Comments Blood Pressure 123/66 09/08/2020 6:15 PM SOUND RANGING CREWMEMBER Pulse 89 09/08/2020 6:15 PM SOUND RANGING CREWMEMBER Temperature 35.9 ??C (96.6 ??F) 09/08/2020 4:38 PM SOUND RANGING CREWMEMBER Respiratory Rate 20 09/08/2020 4:38 PM SOUND RANGING CREWMEMBER Oxygen Saturation 99% 09/08/2020 6:15 PM SOUND RANGING CREWMEMBER Inhaled Oxygen Concentration - - Weight 118 kg (260 lb 2.3 oz) 09/08/2020 4:34 PM SOUND RANGING CREWMEMBER Height - - Body Mass Index 41.99 02/20/2019 1:57 PM CDT documented in this encounter Discharge Instructions AttachmentsThe following attachments cannot be sent through Care Everywhere. Asthma Attack (Welsh)How to Use a Nebulizer Adult (Welsh)Metered Dose Inhaler (No Spacer Used) (Welsh)documented in this encounter Medications at Time of [...] 1832 Asthma Extrinsic With Acute Exacerbation (HCC) Rboe Payne III, M.D. 09/08/201843 D RANGING CREWMEMBER documented in this encounter Plan of Treatment Scheduled Referrals Name Type Priority Associated Diagnoses Order S chedule POST ED VISIT Outpatient Referral Routine Asthma Extrinsic Wit h Expected: Family Medicine Acute Exacerbation 2020 (HCC) (Approximate), Expires: 09/08/2023 documented as of this encounter Procedures Procedure Name Priority Date/Time Associated Comments Diagnosis CBC WITH STAT 09/08/2020 5:03 Results for DIFFERENTIAL, B PM SOUND RANGING CREWMEMBER this procedu re are in the results section. COMPREHENSIVE STAT 09/08/2020 5:03 Results for METABOLIC PANEL, S/P PM SOUND RANGING CREWMEMBER this pr ocedure are in the results section. DX CHEST AP OR PA RAD - Semiurgent 09/08/2020 4:57 Res ults for AND LATERAL 2 VIEWS (Fast; most ED PM SOUND RANGING CREWMEMBER this p rocedure patients; some are in the inpatients) results section. documented in this encounter Results (ABNORMAL) Comprehensive Metabolic Panel (09/08/2020 5:03 PM SOUND RANGING CREWMEMBER) P athologist Signature Potassium, P 3.9 3.6 - 5.2 09/08/2020 [facility] mmol/L 5:43 PM SOUND RANGING CREWMEMBER Sodium, P 139 135 - 145 09/08/2020 [facility] mmol/L 5:43 PM SOUND RANGING CREWMEMBER Chloride, P 104 98 - 107 09/08/2020 [facility] mmol/L 5:43 PM SOUND RANGING CREWMEMBER Bicarbonate, P 23 22 - 29 09/08/2020 [facility] mmol/L 5:43 PM SOUND RANGING CREWMEMBER Anion Gap, P 12 7 - 15 09/08/2020 [facility] 5:43 PM SOUND RANGING CREWMEMBER BUN (Blood Urea 12 6 - 21 09/08/2020 [facility] Nitrogen), P mg/dL 5:43 PM SOUND RANGING CREWMEMBER Creatinine 0.77 0.59 - 09/08/2020 [facility] 1.04 mg/dL 5:43 PM SOUND RANGING CREWMEMBER eGFR-Black/Afric >90 >=60 09/08/2020 [facility] an [place] Citizen mL/min/BSA 5:43 PM SOUND RANGING CREWMEMBER Comment: ----ADDITIONAL INFORMATION---- Estimated GFR calculated using the 2009 CKD_EPI creatinine equation. eGFR Non-Black/ >90 >=60 mL/min/BSA 09/08/2020 5:43 PM SOUND RANGING CREWMEMBER [facility] Comment: ----ADDITIONAL INFORMATION---- Estimated GFR calculated using the 2009 CKD_EPI creatinine equation. Calcium, Total, P 9.6 8.6 - 10.0 mg/dL 09/08/2020 5:43 PM SOUND RANGING CREWMEMBER [facility] Glucose, P 101 70 - 140 mg/dL 09/08/2020 5:43 PM SOUND RANGING CREWMEMBER C NFL Protein, Total, P 6.8 6.3 - 7.9 g/dL 09/08/2020 5:43 P M SOUND RANGING CREWMEMBER [facility] Albumin, P 4.0 3.5 - 5.0 g/dL 09/08/2020 5:43 PM SOUND RANGING CREWMEMBER C NFL Aspartate Aminotransferase 34 8 - 43 U/L 09/08/2020 5 :43 PM SOUND RANGING CREWMEMBER CNFL (AST), P Alkaline Phosphatase, P 103 35 - 104 U/L 09/08/2020 5: 43 PM SOUND RANGING CREWMEMBER [facility] Alanine Aminotransferase 63 (H) 7 - 45 U/L 09/08/2020 5:4 3 PM SOUND RANGING CREWMEMBER [facility] (ALT), P Bilirubin, Total, P 0.3 <=1.2 mg/dL 09/08/2020 5:43 PM SOUND RANGING CREWMEMBER [facility] Specimen Anatomical Collection Method Collection Time Receive d Time (Source) Location / / Volume Laterality Blood (Blood, 09/08/2020 5:03 PM 09/08/19 5:05 Venous) SOUND RANGING CREWMEMBER PM SOUND RANGING CREWMEMBER Robe Payne III, M.D. LAB BLOOD ADD-ON Performing Organization Address City/State/ZIP Code Phon e Number [facility]- [address] [place] [address] [place] [address] System in [address] CBC with Differential, Blood (09/08/2020 5:03 PM SOUND RANGING CREWMEMBER) P athologist Signature Hemoglobin 13.8 11.6 - 09/08/2020 [facility] 15.0 g/dL 5:08 PM SOUND RANGING CREWMEMBER Hematocrit 40.5 35.5 - 09/08/2020 [facility] 44.9 % 5:08 PM SOUND RANGING CREWMEMBER Erythrocytes 4.39 3.92 - 09/08/2020 [facility] 5.13 5:08 PM SOUND RANGING CREWMEMBER x10(12)/L MCV 92.3 78.2 - 09/08/2020 [facility] 97.9 fL 5:08 PM SOUND RANGING CREWMEMBER RBC Distrib Width 12.7 12.2 - 09/08/2020 [facility] 16.1 % 5:08 PM SOUND RANGING CREWMEMBER Platelet Count 233 157 - 371 09/08/2020 [facility] x10(9)/L 5:08 PM SOUND RANGING CREWMEMBER Leukocytes 9.2 3.4 - 9.6 09/08/2020 [facility] x10(9)/L 5:08 PM SOUND RANGING CREWMEMBER Neutrophils 6.26 1.56 - 09/08/2020 [facility] 6.45 5:08 PM SOUND RANGING CREWMEMBER x10(9)/L Lymphocytes 2.03 0.95 - 09/08/2020 [facility] 3.07 5:08 PM SOUND RANGING CREWMEMBER x10(9)/L Monocytes 0.48 0.26 - 09/08/2020 [facility] 0.81 5:08 PM SOUND RANGING CREWMEMBER x10(9)/L Eosinophils 0.36 0.03 - 09/08/2020 [facility] 0.48 5:08 PM SOUND RANGING CREWMEMBER x10(9)/L Basophils 0.03 0.01 - 09/08/2020 CN[facility] 0.08 5:08 PM SOUND RANGING CREWMEMBER x10(9)/L Specimen Anatomical Collection Method Collection Time Receive d Time (Source) Location / / Volume Laterality Blood (Blood, 09/08/2020 5:03 PM 09/08/19 5:05 Venous) SOUND RANGING CREWMEMBER PM SOUND RANGING CREWMEMBER Robe Payne III, M.D. LAB BLOOD ADD-ON Performing Organization Address City/State/ZIP Code Phon e Number [facility]- [address] [place] [address] [place] [address] System in [address] DX Chest AP or PA and Lateral 2 Views (09/08/2020 4:57 PM SOUND RANGING CREWMEMBER) Anatomical Region Laterality Modality Chest, Thoracic RST LOS, Thoracic ARZ LOS, Thoracic N/A Digital Radiography FLA LOS Specimen (Source) Anatomical Collection Method Collection Time Re ceived Time Location / / Volume Laterality 09/08/2020 4:59 PM SOUND RANGING CREWMEMBER Impressions 09/08/2020 5:00 PM SOUND RANGING CREWMEMBER No focal consolidation or pleural effusion. No pneumothorax. Normal heart size. October 20, 2015 comparison. Narrative 09/08/2020 5:00 PM SOUND RANGING CREWMEMBER EXAM: DX CHEST AP OR PA AND [...] nebulizer solution 2.5 Given 09/08/2020 5:57 PM SOUND RANGING CREWMEMBER 2. 5 mg mg (ACCUNEB) 2.5 mg, nebulization, Once, On Tue09/08/20 at 1750, For 1 dose dexAMETHasone injection 10 mg (DECADRON) Given 09/08/2020 5:57 PM SOUND RANGING CREWMEMBER 10 mg 10 mg, intravenous, Once, On Tue09/08/20 at 1751, For 1 dose ipratropium-albuteroL 0.5-2.5 mg/3 mL nebulizer Given 09/08/2020 5:05 PM SOUND RANGING CREWMEMBER 3 mL solution 3 mL (DUONEB) 3 [...] Recently Administered Medications Times are shown in SOUND RANGING CREWMEMBER. Scheduled Medication Order 09/06/2020 09/07/2020 09/08/2020 albuterol nebulizer solution 2.5 mg (ACCUNEB) (COMPLETED) 175 (Given - Provider: Chandni Tijerina R.N.) 2.5 mg, nebulization, Once, On Tue09/08/20 at 1750, For 1 dose dexAMETHasone injection 10 mg (DECADRON) (COMPLETED) 175 (Given - Provider: Chandni Tijerina R.N.) 10 mg, intravenous, Once, On Tue09/08/20 at 1751, For 1 dose ipratropium-albuteroL 0.5-2.5 mg/3 mL ne bulizer solution 3 mL (DUONEB) (COMPLETED) 1705 (Given - Provid er: Chandni Tijerina R.N.) 3 mL, nebulization, Once, On Tue09/08/20 at [...] intravenous, As needed, line care , Starting on Tue09/08/20 at 1647, Peripheral Intravenous Catheter and Rapid Infusion Catheter, prior to blood sampling, post blood transfusion or post blood sampling sodium chloride 0.9 % injection 3 mL 3 mL, intravenous, As needed, line care, Starting on 09/08/20 at 1647, Prior to and following infusion and between multiple consecutive infusions: sodium chloride 0.9 % injection documented in this encounter Additional Health Concerns Assessment Noted Time PHQ-9 Depression Total Score: 10 11/08/2018 12:47 PM C DT documented as of this encounter Care Teams Hospital Education Coordinator Relationship Specialty Start Date End Date Ary Purcell P.A.-C., P.A. PCP - General 06/07/19 01/14/22 documented as of this encounter
--- OUTSIDE RECORDS SUMMARY | 2022-06-01 09:36 | XMS_ITS | Encounter Summary ---
:1995 Author Organization [facility] Address [address] [place] [address] Care Team Providers Name Role Phone Ary Purcell P.A.-C., P.A. Primary Care Provider Ailin diaz Encounter Details Date Type Department Care Team Description 10/30/2020 Orders Only [facility] Sa elke Alonso M.D. [address] [place], [place] [phone] (Wo rk) Social History [...] 10/23/2020 relatives? How often do you attend taoism or denominational Never 10/23/2020 services? Do you belong to any clubs or organizations such as No 12/04/2019 taoism groups, unions, fraternal or athletic groups, or [...] at Date Recorded Female 08/12/2017 10:51 AM TERADATA ARCHITECT documented as of this encounter Plan of Treatment Not on filedocumented as of this encounter Visit Diagnoses Not on filedocumented in this encounter Additional Health Concerns Assessment Noted Time PHQ-9 Depression Total Score: 4 10/24/2020 8:00 AM TERADATA ARCHITECT documented as of this encounter Care Teams Vascular Technologist Sonographer Relationship Specialty Start Date End Date Ary Purcell P.A.-C., P.A. PCP - General 06/07/19 01/14/22 documented as of this encounter
--- OUTSIDE RECORDS SUMMARY | 2022-06-01 09:36 | XMS_ITS | Encounter Summary ---
:1995 Author Organization [facility] Address [address] [place] [address] Care Team Providers Name Role Phone Ary Purcell P.A.-C. P.A. Primary Care Provider Ailin diaz Encounter Details Date Type Department Care Team Description 06/04/2020 Orders Only [facility] - Mason Ansari, She Yeng Phia [address] [facility] [address] [place] [phone] Social History Tobacco Use Types [...] How often do you attend jainism or latter-day Never 10/23/2020 services? 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 PCP - General 06/07/19 01/14/22 documented as of this encounter
--- OUTSIDE RECORDS SUMMARY | 2022-06-01 09:36 | XMS_ITS | Encounter Summary ---
:1995 Author Organization [facility] Address [address] [place] [address] Care Team Providers Name Role Phone Ary Purcell P.A.-C., P.A. Primary Care Provider Ailin diaz Encounter Details Date Type Department Care Team Description 06/27/2020 Orders Only Department of [facility] Ary Purcell, Medicine, [facility], in [address] [phone] Social History Tobacco Use [...] How often do you attend sikhism or sikh Never 10/23/2020 services? 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 PCP - General 06/07/19 01/14/22 documented as of this encounter
--- OUTSIDE RECORDS SUMMARY | 2022-06-01 09:36 | XMS_ITS | Encounter Summary ---
:1995 Author Organization [facility] Address [address] [place] [address] Care Team Providers Name Role Phone Ary [...] Expiration Date Visits Requ ested Visits Authorized [id number] Closed 04/07/2021 04/07/2022 1 1 Encounter Details Date Type Department Care Team Description 04/21/2021 Office Visit Department of [place], [place] (Primary Dx); Medicine, [facility], in [address] [phone] Social History Tobacco Use Types Packs/Day Years [...] How often do you attend mu-ism or restorationism Never 10/23/2020 services? 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 She has tried rpet-adc-whpyecv remedies without relief. Looking for next steps in therapy. She has also noticed dry patches on her hands bilateral withscaling and cracking. She has tried oevc-alt-feuqkhs topical antibiotics without improvement. The following portions [...] ASSESSMENT / PLAN #1 Wart Discussed ongoing qpmg-cxe-dosmhwj remedies. Cryotherapy provided at today's visit. Continue to monitor #2 Eczema Discussed utilizing arsm-oul-lgxcwee topical hydrocortisone cream along with moisturizing emollients. [...] documented as of this encounter Care Teams Ict Programmer Relationship Specialty Start Date End Date Ary Purcell P.A.Ana., P.A. PCP - General 06/07/19 01/14/22 documented as of this encounter
--- OUTSIDE RECORDS SUMMARY | 2022-06-01 09:36 | XMS_ITS | Encounter Summary ---
:1995 Author Organization [facility] Address [address] [place] [address] Care Team Providers Name Role Phone Ary Purcell P.A.-C., P.A. Primary Care Provider Unavaila ble Reason for Visit Reason Comments COVID Inquiry Encounter Details Date Type Department Care Team Description 09/09/2020 Clinical Communication Department of [facility] Vani Purcell Inquiry Medicine, [place] [facility]ill[facility], Clinic, in [address] [phone] Social History Tobacco Use Types [...] How often do you attend nondenominational or latter day Never 10/23/2020 services? Do [...] at Date Recorded Female 08/12/2017 10:51 AM CORRECTIVE THERAPY AIDE TEACHER documented as of this encounter Miscellaneous Notes [...] route encounter to the correct testing pool. ECTIVE THERAPY AIDE TEACHER documented in this encounter Plan of Treatment Not on filedocumented as of this encounter Visit Diagnoses Not on filedocumented in this encounter Additional Health Concerns Assessment Noted Time PHQ-9 Depression Total Score: 10 11/08/2018 12:47 PM C DT documented as of this encounter Care Teams Guest Relations Officer Relationship Specialty Start Date End Date Ary Purcell P.A.-C., P.A. PCP - General 06/07/19 01/14/22 documented as of this encounter
--- OUTSIDE RECORDS SUMMARY | 2022-06-01 09:36 | XMS_ITS | Encounter Summary ---
:1995 Author Organization [facility] Address [address] [place] [address] Care Team Providers Name Role Phone rAy Purcell P.A.-C., P.A. Primary Care Provider Ailin diaz Encounter Details Date Type Department Care Team Description 08/20/2021 Admin Visit Department of [facility] Ary Purcell, Medicine, [facility] in [address] [phone] Social History Tobacco Use Types Packs/Day [...] How often do you attend restorationism or catholic Never 10/23/2020 services? 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 PCP - General 06/07/19 01/14/22 documented as of this encounter
--- OUTSIDE RECORDS SUMMARY | 2022-06-01 09:36 | XMS_ITS | Encounter Summary ---
:1995 Author Organization [facility] Address [address] [place] [address] Care Team Providers Name Role Phone Ary Purcell P.A.-C., P.A. Primary Care Provider Unavaila ble Reason for Referral Outpatient (Routine) - Closed Specialty Diagnoses / Procedures Referred By Contact Refer red To Contact Diagnoses Pain Wrist Left Ary Purcell P.A.-C., [facility] Region Procedures DX Wrist Left [facility] P.[facility] [address] [place] [phone] Referral ID Status Reason Start Date Expiration Date Visits Requ ested Visits Authorized [id number] Closed 10/26/2021 10/26/2022 1 1 Reason for Visit Reason Comments Wrist Pain Left wrist pain. States it s tarted last april. Does not recollect any trauma to wrist. Aleve seems to help with pain a little. Also discuss kenalog cream. Encounter Details Date Type Department Care Team Description 10/26/2021 Office Visit Department of [facility] Ary Purcell Pai n Wrist Left (Primary Dx); Medicine, [place] Gabriel, P.A. [facility], in [address] [phone] Social History Tobacco Use Types [...] How often do you attend yarsani or baptism Never 10/23/2020 services? Do you [...] or the highest technical, or vocational p [facility] degree you have received? 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 - 10/26/2021 5:30 PM CDT Lidex ointment twice daily on hands documented in this encounter Progress Notes Ary Purcell P.A.-C., Carmen. - 10/26/2021 5:30 PM CDT SUBJECTIVE CHIEF [...] warmth. Negative Tinel and Phalen test. 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 [...] and water at work rather than hand floor coverer apprentice as this could be an irritantto her [...] Ary Purcell P.A.-C., P.A. IMG DIAGNOSTIC IMAGING [place] OCEDURES documented in this encounter Visit Diagnoses Diagnosis Pain Wrist Left - Primary Eczema Pain Wrist Left documented in this encounter Additional Health Concerns Assessment Noted Time PHQ-9 Depression Total Score: 1 09/01/2021 12:11 PM CS T documented as of this encounter Care Teams Tarring Machine Operator Relationship Specialty Start Date End Date Ary Purcell P.A.-C., P.A. PCP - General 06/07/19 01/14/22 documented as of this encounter
--- OUTSIDE RECORDS SUMMARY | 2022-06-01 09:36 | XMS_ITS | Encounter Summary ---
:1995 Author Organization [facility] Address [address] [place] [address] Care Team Providers Name Role Phone Ary Purcell P.A.-C., P.A. Primary Care Provider Unavaila ble Reason for Visit Reason Comments Shortness of Breath having to use neb treatments , low grade temp Appointment Request (Routine) - Closed Specialty Diagnoses / Procedures Referred By Contact Refer red To Contact Family Medicine Referral ID Status Reason Start Date Expiration Date Visits Requ ested Visits Authorized [id number] Closed 12/04/2019 12/03/2020 1 1 Encounter Details Date Type Department Care Team Description 12/04/2019 Telemedicine Department of [facility] Ary Purcell, Sin usitis (Primary Dx); Medicine, [place] ManaAGonzalo-Mitchell., P.A. Infe ction Upper Respiratory; Clinic, in [place] Asthma Exa cerbation ([address] [phone] Social History Tobacco Use Types Packs/Day Years [...] How often do you attend yazidi or evangelical Never 10/23/2020 services? 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 - 12/04/2019 1:30 PM CDT SUBJECTIVE CHIEF COMPLAINT/REASON FOR VISIT Carly Bob ZEB Joseph is a 24 y.o. female who presents for evaluation of Shortness of Breath (having to use neb treatments, low grade temp). Consult conducted via real-time audio/video technology by Ary Purcell P.A.-C. in [facility] [place] to the patient's home. HISTORY OF PRESENT ILLNESS Carly is a very pleasant 24-year-old female who presents for a video visit for evaluation of upper respiratory infection. She was swabbed for coronavirus yesterday and found to be negative. 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 She states her symptoms 1st started a [...] documented as of this encounter Care Teams Life Enrichment Specialist Relationship Specialty Start Date End Date Ary Purcell P.A.-C., P.A. PCP - General 06/07/19 01/14/22 documented as of this encounter
--- OUTSIDE RECORDS SUMMARY | 2022-06-01 09:36 | XMS_ITS | Encounter Summary ---
:1995 Author Organization [facility] Address [address] [place] [address] Care Team Providers Name Role Phone Teresita Barkley M.D. Primary Care Provider Encounter Details Date Type Department Care Team Description 08/13/2021 Orders Only Department of Family Ary Purcell, Medicine, [place] P.A.-C., P.A. Clinic, in [address] [phone] Social History Tobacco Use [...] How often do you attend latter-day or mandaen Never 10/23/2020 services? 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 PCP - General 01/15/[address] [place] [phone] documented as of this encounter
--- OUTSIDE RECORDS SUMMARY | 2022-06-01 09:36 | XMS_ITS | Encounter Summary ---
:1995 Author Organization [facility] Address [address] [place] [address] Care Team Providers Name Role Phone Teresita Barkley M.D. Primary Care Provider Encounter Details Date Type Department Care Team Description 09/09/2020 Orders Only Department of Family Ary Purcell, Medicine, [place] P.A.-C., P.A. Clinic, in [address] [phone] Social History Tobacco Use [...] How often do you attend mandaen or nondenominational Never 10/23/2020 services? 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 documented as of this encounter Plan of Treatment Not on filedocumented as of this encounter Visit Diagnoses Not on filedocumented in this encounter Additional Health Concerns Infection Onset Date Last Indicated Resolved Time COVID19 Pending 08/20/2021 08/20/2021 08/21/2021 4:30 AM DIRECTOR OF EVENT MANAGEMENT COVID19 08/20/2021 08/20/2021 09/09/2021 5:24 AM DIRECTOR OF EVENT MANAGEMENT Assessment Noted Time PHQ-9 Depression Total Score: 10 11/08/2018 12:47 PM C DT documented as of this encounter Care Teams Digester Operator Helper Relationship Specialty Start Date End Date Teresita Barkley M.D. PCP - General 01/15/[address] [place] [phone] documented as of this encounter
--- OUTSIDE RECORDS SUMMARY | 2022-06-01 09:36 | XMS_ITS | Encounter Summary ---
:1995 Author Organization [facility] Address [address] [place] [address] Care Team Providers Name Role Phone Ary Purcell P.A.-C., P.A. Primary Care Provider Unavaila ble Reason for Referral Outpatient (Routine) - Closed Specialty Diagnoses / Procedures Referred By Contact Refer red To Contact Family Medicine Ary Purcell P.A.-C., [facility] 200 [place] [phone] Referral ID Status Reason Start Date Expiration Date Visits Requ ested Visits Authorized [id number] Closed 10/24/2020 10/24/2021 1 1 Scheduling Instructions Physical, come fasting if no labs ordere d ORATE LEARNING CONSULTANT Reason for Visit Reason Comments Gynecologic Exam Has a spot on her labia that she noticed 2 days ago. Appointment Request (Routine) - Closed Specialty Diagnoses / Procedures Referred By Contact Refer red To Contact Family Medicine Referral ID Status Reason Start Date Expiration Date Visits Requ ested Visits Authorized [id number] Closed 10/22/2020 10/22/2021 1 1 Encounter Details Date Type Department Care Team Description 10/24/2020 Office Visit Department of Ary Salazar Ast hma Moderate Persistent (HCC) (Primary Dx); [facility], [place], P.[place]. Pap Smear Examination; Clinic, in [place] Depression Major One Episode Full Remission (HCC); [place], [place] Anxiety; [id number] Body Mass Index 40.0 To 44.9 Adult ([facility]) [place] [phone] Social History [...] How often do you attend anabaptism or restorationism Never 10/23/2020 services? Do you [...] Date Recorded Female 08/12/2017 10:51 AM CORPORATE LEARNING CONSULTANT documented as of this encounter Last Filed Vital Signs Vital Sign Reading Time Taken Comments Blood Pressure 127/70 10/24/2020 8:34 AM CORPORATE LEARNING CONSULTANT Pulse 82 10/24/2020 8:34 AM CORPORATE LEARNING CONSULTANT Temperature 36.8 ??C (98.2 ??F) 10/24/2020 8:34 AM CORPORATE LEARNING CONSULTANT Respiratory Rate 18 10/24/2020 8:34 AM CORPORATE LEARNING CONSULTANT Oxygen Saturation 99% 10/24/2020 8:34 AM CORPORATE LEARNING CONSULTANT Inhaled Oxygen Concentration - - Weight 119 kg (261 lb 11 oz) 10/24/2020 8:34 AM CORPORATE LEARNING CONSULTANT Height 167.5 cm (5' 5.95) 10/24/2020 8:34 AM CORPORATE LEARNING CONSULTANT Body Mass Index 42.31 10/24/2020 8:34 AM CORPORATE LEARNING CONSULTANT documented in this encounter Patient Instructions Patient InstructionsAry Purcell P.A. - 10/24/2020 8:30 AM CST Continue current medications Pap results in 7-10 days ORATE LEARNING CONSULTANT documented in this encounter H&P Notes Ary [...] of health. She did recently travel to [place] last week. She was in her swimming [...] FIXATION ANKLE; Surgeon: Bruno Spivey M.D.; Location: [facility] OR ??? TONSILLECTOMY 2000 Partial ??? TONSILLECTOMY [...] The adnexa show no masses or tenderness. J2Ee Developer declined. Pap obtained today. Left labia minora [...] content. Total time: 28 minutes Ranjana Alexandra ORATE LEARNING CONSULTANT documented in this encounter Plan of Treatment Scheduled Referrals Name Type Priority Associated Diagnoses Order S [facility] Outpatient Referral Routine Expec jay jay: office visit 10/24/2021 (clinic) (Approximate), Expires: 10/25/2023 documented as of this encounter Procedures Procedure Name Priority Date/Time Associated Diagnosis Comme nts THINPREP SCREEN HPV Routine 10/24/2020 8:44 AM Pap Smear Re sults for this REFLEX CORPORATE LEARNING CONSULTANT Examination procedure are i n the results section. documented in this encounter Results ThinPrep Screen HPV Reflex (10/24/2020 8:44 AM CORPORATE LEARNING CONSULTANT) Component Value Ref Test Analysis Performed Pathologis [...] Laterality Varies 10/24/2020 8:44 AM 3:56 (Cervix/Endocerv CORPORATE LEARNING CONSULTANT PM CORPORATE LEARNING CONSULTANT ix) Narrative This result has an attachment that is no t available. Ary Purcell P.A.-C., P.A. LAB PAP PATHDX ORDERABLES Performing Organization Address City/State/ZIP Code Phon e Number [facility]- [address] [place] [phone] [facility] [place] [address] System in [address] documented in this encounter Visit Diagnoses Diagnosis Asthma Moderate Persistent (HCC) - Prima ry Pap Smear Examination Depression Major One Episode Full Remiss ion (HCC) Anxiety Body Mass Index 40.0 To 44.9 Adult (HCC) documented in this encounter Additional Health Concerns Assessment Noted Time PHQ-9 Depression Total Score: 4 10/24/2020 8:00 AM CORPORATE LEARNING CONSULTANT documented as of this encounter Care Teams Research Assistant Professor Relationship Specialty Start Date End Date Ary Purcell P.A.-C., P.A. PCP - General 06/07/19 01/14/22 documented as of this encounter
--- OUTSIDE RECORDS SUMMARY | 2022-06-01 09:36 | XMS_ITS | Encounter Summary ---
:1995 Author Organization [facility] Address [address] [place] [address] Care Team Providers Name Role Phone Ary Purcell P.AGonzalo-C., P.A. Primary Care Provider Unavaila ble Reason for Visit Reason Comments Med Refill Encounter Details Date Type Department Care Team Description 01/11/2020 Refill Department of Orthopedic Ary Purcell, Med Refill Surgery in [place], [place] P.A.-C., P.A. [address] [place] [phone] Social History Tobacco Use Types Packs/Day [...] How often do you attend tenriism or taoist Never 10/23/2020 services? 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 PCP - General 06/07/19 01/14/22 documented as of this encounter
--- OUTSIDE RECORDS SUMMARY | 2022-06-01 09:36 | XMS_ITS | Encounter Summary ---
:1995 Author Organization [facility] Address [address] [place] [address] Care Team Providers Name Role Phone Ary Purcell P.A.-C., P.A. Primary Care Provider Unavaila ble Reason for Visit Reason Comments Med Refill Encounter Details Date Type Department Care Team Description 03/19/2020 Refill Department of Obstetrics and Counts Include [address] [facility], [facility] ndanabela, DIESEL POWERPLANT MECHANIC, Med Refill Gynecology in [facility] ELOY, M.S .N., B.S.N., R.N. [id number] [place] [phone] Social History Tobacco Use Types Packs/Day Years [...] often do you attend roman catholic or druze Never 10/23/2020 services? 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/2017 10:51 AM UM RN documented as of this encounter Plan of Treatment Not on filedocumented as of this encounter Visit Diagnoses Not on filedocumented in this encounter Additional Health Concerns Assessment Noted Time PHQ-9 Depression Total Score: 10 11/08/2018 12:47 PM C DT documented as of this encounter Care Teams Sidewalk Inspector Relationship Specialty Start Date End Date Ary Purcell P.A.-C., P.A. PCP - General 06/07/19 01/14/22 documented as of this encounter
--- OUTSIDE RECORDS SUMMARY | 2022-06-01 09:36 | XMS_ITS | Encounter Summary ---
:1995 Author Organization [facility] Address [address] [place] [address] Care Team Providers Name Role Phone Ary Purcell P.A.-C., P.A. Primary Care Provider Ailin diaz Encounter Details Date Type Department Care Team Description 06/17/[address] [facility] - Ary [place], [address] [address] P.A.-[place] [phone] Social History Tobacco Use Types [...] 10/23/2020 relatives? How often do you attend denominational or anabaptism Never 10/23/2020 services? Do you belong to any clubs or organizations such as No 12/04/2019 denominational groups, unions, fraternal or athletic groups, or [...] at Date Recorded Female 08/12/2017 10:51 AM STRIPPER LATEX documented as of this encounter Plan of Treatment Not on filedocumented as of this encounter Visit Diagnoses Not on filedocumented in this encounter Additional Health Concerns Assessment Noted Time PHQ-9 Depression Total Score: 10 11/08/2018 12:47 PM C DT documented as of this encounter Care Teams Chorus Master Relationship Specialty Start Date End Date Ary Purcell P.A.-C., P.A. PCP - General 06/07/19 01/14/22 documented as of this encounter
--- OUTSIDE RECORDS SUMMARY | 2022-06-01 09:36 | XMS_ITS | Encounter Summary ---
:1995 Author Organization [facility] Address [address] [place] [address] Care Team Providers Name Role Phone Ary Purcell P.A.-C., P.A. Primary Care Provider Unavaila ble Reason for Visit Reason Comments Med Refill Encounter Details Date Type Department Care Team Description 12/25/2020 Refill Department of Family Medicine, Vani Purcell, Med Refill [facility], in [place] Gabriel, P .A. [address] [phone] Social History Tobacco Use [...] 10/23/2020 relatives? How often do you attend islam or congregation Never 10/23/2020 services? Do you belong to any clubs or organizations such as No 12/04/2019 islam groups, unions, fraternal or athletic groups, or [...] or the highest technical, or vocational p [facility] degree you have received? Sex Assigned at Date Recorded Female 08/12/2017 10:51 AM TABLE COVER FOLDER documented as of this encounter Miscellaneous Notes Telephone Encounter - Favio Cadena - 12/25/2020 11:42 AM CDT Nurse review: Unable to forward request to provider; System requests alternative due to formulary coverage Primary Provider: Ary Purcell P.A.-C., P.A. Name: Escitalopram oxalate Strength: 20 mg tab Frequency: take one tab PO daily Quantity: 30 Refills: Last Refill: 11-25-20 Pharmacy: [facility] documented in this encounter Plan of Treatment Not on filedocumented as of this encounter Visit Diagnoses Diagnosis Anxiety Generalized Disorder documented in this encounter Additional Health Concerns Assessment Noted Time PHQ-9 Depression Total Score: 4 10/24/2020 8:00 AM TABLE COVER FOLDER documented as of this encounter Care Teams Bus Inspector Relationship Specialty Start Date End Date Ary Purcell P.A.-C., P.A. PCP - General 06/07/19 01/14/22 documented as of this encounter
--- OUTSIDE RECORDS SUMMARY | 2022-06-01 09:36 | XMS_ITS | Encounter Summary ---
:1995 Author Organization [facility] Address [address] [place] [address] Care Team Providers Name Role Phone Ary [...] Team Description 08/21/2020 Office Visit Department of [facility] Ary Purcell, Per gustavo History Of Infectious And Parasitic Disease (COVID-19) (Primary Dx); Medicine, [place] P.A.-C., P.A. Asth ma Mild Intermittent (HCC); Clinic, in [place] Asthma Exa cerbation ([facility]) [address] [phone] Social History Tobacco Use Types Packs/Day Years [...] How often do you attend taoism or congregational Never 10/23/2020 services? 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/2017 10:51 AM COMPRESSED GAS EQUIPMENT MECHANIC documented as of this encounter Last Filed Vital Signs Vital Sign Reading Time Taken Comments Blood Pressure 123/83 08/21/2020 11:23 AM COMPRESSED GAS EQUIPMENT MECHANIC Pulse 66 08/21/2020 11:23 AM COMPRESSED GAS EQUIPMENT MECHANIC Temperature 36.3 ??C (97.3 ??F) 08/21/2020 11:23 AM COMPRESSED GAS EQUIPMENT MECHANIC Respiratory Rate 18 08/21/2020 11:23 AM COMPRESSED GAS EQUIPMENT MECHANIC Oxygen Saturation 96% 08/21/2020 11:23 AM COMPRESSED GAS EQUIPMENT MECHANIC Inhaled Oxygen Concentration - - Weight 118 kg (259 lb 4.2 oz) 08/21/2020 11:23 AM COMPRESSED GAS EQUIPMENT MECHANIC Height - - Body Mass Index 41.85 02/20/2019 1:57 PM CDT documented in this encounter Patient Instructions Patient InstructionsAry Purcell, P.A. - 08/21/2020 11:30 AM CST May use OTC antihistamine (Zyrtec or Claritin) or similar for the next few days. May use OTC Flonase twice per day to help with nasal congestion and postnasal drip. Cold/cough remedies also available OTC - DayQuil/NyQuil, Mucinex, Sandra-Chancellor Cold/Flu, Robitussin DM, cough/throat lozenges, honey. May use OTC analgesics such as Tylenol/ibuprofen for low grade fevers and body aches. Increase fluid intake. Get plenty of rest. Cover your cough. Wash hands frequently. Prednisone 2 tabs (40mg) daily for 5 days - take with food RESSED GAS EQUIPMENT MECHANIC documented in this encounter Progress Notes Ary [...] remedies also available OTC - DayQuil/NyQuil, Mucinex, Sandra-Chancellor Cold/Flu, Robitussin DM, cough/throat lozenges, honey. May [...] expressed understanding of the content. Ranjana Alexandra RESSED GAS EQUIPMENT MECHANIC documented in this encounter Plan of Treatment Not on filedocumented as of this encounter Visit Diagnoses Diagnosis Personal History Of Infectious And Bashir itic Disease (COVID-19) - Primary Asthma Mild Intermittent (HCC) Asthma Exacerbation (HCC) documented in this encounter Additional Health Concerns Assessment Noted Time PHQ-9 Depression Total Score: 10 11/08/2018 12:47 PM C DT documented as of this encounter Care Teams Angle Shear Set Up Operator Relationship Specialty Start Date End Date Ary Purcell P.A.-Guillermina, P.A. PCP - General 06/07/19 01/14/22 documented as of this encounter
--- OUTSIDE RECORDS SUMMARY | 2022-06-01 09:36 | XMS_ITS | Encounter Summary ---
:1995 Author Organization [facility] Address [address] [place] [address] Care Team Providers Name Role Phone Ary Purcell P.A.-C., P.A. Primary Care Provider Unavaila ble Reason for Visit Reason Onset Date Comments Testing For Upper Respiratory Virus Symptoms 08/20/2021 Encounter Details Date Type Department Care Team Description 08/20/2021 External Outreach Department of [facility] Betty Garcia Contact With And (Suspected) Exposure To COVID-19; Medicine, [place] T, PGonzaloA.-C. Infection Upper Respiratory Clinic, in [address] [address] [place], [place] [phone] (Work) [phone] Social History Tobacco Use Types Packs/Day Years [...] How often do you attend sikhism or latter day Never 10/23/2020 services? Do [...] at Date Recorded Female 08/12/2017 10:51 AM HOSPITAL MEDICINE DIRECTOR documented as of this encounter Progress Notes Dali Zaidi R.N. - 08/20/2021 9:35 AM CST Encounter created for symptomatic infectious disease screening with possible COVID, Influenza, RSV, and/or Group A Strep testing. ITAL MEDICINE DIRECTOR documented in this encounter Miscellaneous Notes Result Encounter Note - Lori Gregg R.N. - 08/21/2021 8:04 AM HOSPITAL MEDICINE DIRECTOR Your patient has tested positive for SARS-CoV-2, the virus that causes COVID-19. IMPORTANT: Please update the patient's problem list and medication list to ensure an accurate and timely evaluation for COVID-19 treatments, including various medications and Remote Patient Monitoring (RPM). If eligible for COVID-19 treatments or RPM, your patient will be contacted by a designated team of nurses to coordinate the care. The [place] [facility] Team ([facility]) sends general guidance about COVID-19 to all patients by letter or portal, except when a patient is hospitalized or resides in a alf. The M[facility] will also call all adult patients at highest risk for severe complications of COVID-19 andall who require an fire protection equipment technician. Any patient with a MASS score 1 [...] for symptom management. For questions, contact the [place] [facility] Team ([facility]): Pager: [phone] In basket: P RST/[facility] COVID-19 POSITIVE Covid [...] to obtain the result by calling the [facility] result line or by checking their online services account. ITAL MEDICINE DIRECTOR documented in this encounter Plan of Treatment Not on filedocumented as of this encounter Procedures Procedure Name Priority Date/Time Associated Diagnosis Comme nts INFLUENZA A/B AND Routine 08/20/2021 11:46 AM Infection Upper Results for this RSV, PCR, VARIES HOSPITAL MEDICINE DIRECTOR Respiratory procedure a re in the results section. SARS CORONAVIRUS-2 Routine 08/20/2021 11:46 AM Contact With An d Results for this RNA, V HOSPITAL MEDICINE DIRECTOR (Suspected) Exposure procedu re are in To COVID-19 the results section. documented in this encounter Results Influenza A/B and RSV, PCR, Varies (08/20/2021 11:46 AM HOSPITAL MEDICINE DIRECTOR) [facility] Method Time Signature Influenza A/B Swab, 08/23/2021 DTL and RSV, Nasopharynx 3:33 PM HOSPITAL MEDICINE DIRECTOR Source Influenza A, Undetected Undetected 08/23/2021 DTL PCR 3:33 PM HOSPITAL MEDICINE DIRECTOR Comment: Influenza A RNA absent. Influenza B, PCR Undetected Undetected 08/23/2021 3:33 PM CS T DTL Comment: Influenza B RNA absent. Respiratory Syncytial Virus, PCR Undetected Undetected 04/2022 3:33 PM HOSPITAL MEDICINE DIRECTOR DTL Comment: RSV RNA absent. ----ADDITIONAL INFORMATION---- This test has been modified from the man ufacturer's instructions. Its performance characteristics were determi bryan by [facility] in a manner consistent with CLIA requirements. This test has not been cleared or approved by the U.S. Food and Drug Administration . Specimen Anatomical Collection Method Collection Time Receive d Time (Source) Location / / Volume Laterality Varies 08/20/2021 11:46 08/20/2021 (Nasopharynx) AM HOSPITAL MEDICINE DIRECTOR 10:09 PM HOSPITAL MEDICINE DIRECTOR Emmanuel Garcia P.A.-C. LAB MICROBIOLOGY - GENERAL O RDERAMANDY Performing Organization Address City/[facility]/ZIP Code Phon e Number [facility] - [address] [place] [phone] [facility] [place] [address] [facility] [address] [facility] (ABNORMAL) SARS Coronavirus-2 RNA, V Symptomatic (08/20/2021 11:46 AM HOSPITAL MEDICINE DIRECTOR) [facility] Method Time Signature SARS-CoV-2 Swab, 08/21/2021 ECLR Specimen Nasopharynx 4:29 AM HOSPITAL MEDICINE DIRECTOR Source SARS CoV-2 Detected (A) Undetected 08/21/2021 ECLR RNA, TMA 4:29 AM HOSPITAL MEDICINE DIRECTOR Comment: SARS-CoV-2 RNA present. ----ADDITIONAL INFORMATION---- This molecular amplification test was pe rformed using the Aptima SARS-CoV-2 assay ([employer] on the [employer] tem under emergency use authorization (EUA) by the U.S. Food and Drug Administ trinity. Fact sheets for this EUA assay can be fo und at the following links: For Healthcare Providers: https://www.fd a.gov/media/292102/download For Patients: https://www.fda.gov/media/ 897134/download Specimen Anatomical Collection Method Collection Time Receive d Time (Source) Location / / Volume Laterality Varies 08/20/2021 11:46 08/20/2021 4:12 (Nasopharynx) AM HOSPITAL MEDICINE DIRECTOR PM HOSPITAL MEDICINE DIRECTOR Emmanuel Garcia P.A.-C. LAB MICROBIOLOGY - GENERAL O RDERAMANDY Performing Organization Address City/State/ZIP Code Phon e Number [facility]- [address] [place] [phone] [facility] [place] [address] System in [address] documented in this encounter Visit Diagnoses Diagnosis Contact With And (Suspected) Exposure To COVID-19 Infection Upper Respiratory documented in this encounter Additional Health Concerns Infection Onset Date Last Indicated Resolved Time COVID19 Pending 08/20/2021 08/20/2021 08/21/2021 4:30 AM HOSPITAL MEDICINE DIRECTOR Assessment Noted Time PHQ-9 Depression Total Score: 11 08/13/2021 8:00 AM CS T documented as of this encounter Care Teams Forming Process Worker Relationship Specialty Start Date End Date Ary Purcell P.A.Ana., P.A. PCP - General 06/07/19 01/14/22 documented as of this encounter
--- OUTSIDE RECORDS SUMMARY | 2022-06-01 09:36 | XMS_ITS | Encounter Summary ---
:1995 Author Organization [facility] Address [address] [place] [address] Care Team Providers Name Role Phone Ary Purcell P.A.-C., P.A. Primary Care Provider Ailin diaz Encounter Details Date Type Department Care Team Description 08/21/2021 Orders Only Department of [facility] Ary Purcell, Medicine, Lydia Moses., P.A. Clinic, in [address] [phone] Social History Tobacco Use [...] How often do you attend scientologist or zoroastrianism Never 10/23/2020 services? 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 PCP - General 06/07/19 01/14/22 documented as of this encounter
--- OUTSIDE RECORDS SUMMARY | 2022-06-01 09:36 | XMS_ITS | Encounter Summary ---
:[address] [facility] Address [address] [place] [address] Care Team Providers Name Role Phone Ary Purcell P.A.-C., P.A. Primary Care Provider Unavaila ble Reason for Visit Reason Comments COVID Inquiry Encounter Details Date Type Department Care Team Description 05/28/2020 Clinical Communication Department of Vani Salazar Inquiry Medicine, [place] Pina PGonzaloAGonzalo-Guillermina, Clinic, in [address] [phone] Social History Tobacco Use Types Packs/Day Years [...] How often do you attend buddhist or baptism Never 10/23/2020 services? 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/2017 10:51 AM TELEMETRY NURSE documented as of this encounter Miscellaneous Notes [...] as of this encounter Care Teams Assistant Front Office Manager Relationship Specialty Start Date End Date Ary Purcell P.A.-C., P.A. PCP - General 06/07/19 01/14/22 documented as of this encounter
--- OUTSIDE RECORDS SUMMARY | 2022-06-01 09:36 | XMS_ITS | Encounter Summary ---
:1995 Author Organization [facility] Address [address] [place] [address] Care Team Providers Name Role Phone Ary Purcell P.A.-C., P.A. Primary Care Provider Unavaila ble Reason for Visit Reason Comments Rx Prior Authorization DENIAL OF QVAR Encounter Details Date Type Department Care Team Description 06/04/2020 Clinical Communication Department of Olya Purcell Family MedicineAry, Authorizati on (DENIAL Baxter Gabriel, OF QVAR) Clinic, in [address] [phone] Social History Tobacco Use Types Packs/Day Years [...] How often do you attend restoration or yarsanism Never 10/23/2020 services? 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/2017 10:51 AM CAM MAKER documented as of this encounter Miscellaneous Notes Telephone Encounter - Her, She Saida Sands - 06/04/2020 4:24 PM CDT The [...] as of this encounter Care Teams Research Hydraulic Engineer Relationship Specialty Start Date End Date Ary Purcell P.A.-C., P.A. PCP - General 06/07/19 01/14/22 documented as of this encounter
--- OUTSIDE RECORDS SUMMARY | 2022-06-01 09:36 | XMS_ITS | Encounter Summary ---
:1995 Author Organization [facility] Address [address] [place] [address] Care Team Providers Name Role Phone Ary [...] Expiration Date Visits Requ ested Visits Authorized [id number] Closed 05/28/2020 05/28/2021 1 1 Encounter Details Date Type Department Care Team Description 05/28/2020 Office Visit Department of Family Ary Purcell Der matitis Perioral Medicine, [place] Moses., P.A. (Deirdre Gomez) Clinic, in [address] [phone] Social History Tobacco Use Types Packs/Day Years [...] How often do you attend sabianism or voodoo Never 10/23/2020 services? 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/2017 10:51 AM RAND CEMENTER documented as of this encounter Last Filed [...] of facial rash. Shewas diagnosed at a [facility] with impetigo a few months ago. She has been using her topical Bactroban which did initially helped but she is having ongoing skin lesions that are pruritic. 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 REVIEW OF SYSTEMS A brief review of [...] documented as of this encounter Care Teams Airplane Captain Relationship Specialty Start Date End Date Ary Purcell P.A.-C., P.A. PCP - General 06/07/19 01/14/22 documented as of this encounter
--- OUTSIDE RECORDS SUMMARY | 2022-06-01 09:36 | XMS_ITS | Encounter Summary ---
:1995 Author Organization [facility] Address [address] [place] [address] Care Team Providers Name Role Phone Ary Purcell P.A.-C., P.A. Primary Care Provider Unavaila ble Reason for Visit Reason Comments COVID Nurse Line Encounter Details Date Type Department Care Team Description 08/20/2021 Clinical Communication Division of Rossy Almonte Nurse Line [facility], [facility], in [place], [place] [address] [place] [address] Social History Tobacco Use Types Packs/Day Years [...] 10/23/2020 relatives? How often do you attend synagogue or religion Never 10/23/2020 services? 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 When screening complete, run the Influenza [...] swabbed for COVID-19 and Influenza, sent to [facility] located at [facility] [address]. An appointment is required fortesting, please call [phone] Tuesday-Tuesday 7am to 6pm and Tuesday & [...] frequently with soap and water, use hand line driver if soap and water aren't available. -Wear [...] The following references were used: [facility] novel coronavirus (COVID- 19) resources MACY TEACHER documented in this encounter Plan of Treatment Not on filedocumented as of this encounter Visit Diagnoses Not on filedocumented in this encounter Additional Health Concerns Infection Onset Date Last Indicated Resolved Time COVID19 Pending 08/20/2021 08/20/2021 08/21/2021 4:30 AM PHARMACY TEACHER Assessment Noted Time PHQ-9 Depression Total Score: 11 08/13/2021 8:00 AM CS T documented as of this encounter Care Teams Server Developer Relationship Specialty Start Date End Date Ary Purcell P.A.Ana., P.A. PCP - General 06/07/19 01/14/22 documented as of this encounter
--- OUTSIDE RECORDS SUMMARY | 2022-06-01 09:36 | XMS_ITS | Encounter Summary ---
:1995 Author Organization [facility] Address [address] [place] [address] Care Team Providers Name Role Phone Ary [...] How often do you attend jainism or sabianist Never 10/23/2020 services? 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 PCP - General 06/07/19 01/14/22 documented as of this encounter
--- OUTSIDE RECORDS SUMMARY | 2022-06-01 09:36 | XMS_ITS | Encounter Summary ---
:1995 Author Organization [facility] Address [address] [place] [address] Care Team Providers Name Role Phone Ary Purcell P.A.-C., P.A. Primary Care Provider Unavaila ble Reason for Visit Reason Comments Med Refill Aerospan Encounter Details Date Type Department Care Team Description 09/09/2020 Clinical Communication Department of Ary Purcell Med Refill Family Medicine, Pina, P.A.-CGonzalo, (Aerospan) [facility], in [address] [phone] Social History Tobacco Use Types Packs/Day Years [...] How often do you attend zoroastrianism or yarsani Never 10/23/2020 services? Do you belong to [...] or the highest technical, or vocational p [facility] degree you have received? 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 - 09/09/2020 10:52 AM SPUN PASTE MACHINE OPERATOR Attempted to contact patient, to verify which pharmacy she would like her prescriptions at, no answer, voice message left for patient to contact the clinic. PASTE MACHINE OPERATOR Telephone Encounter - Ary Purcell, P.A. - 09/09/2020 10:37 AM CST Sent new script to [facility]. Ary Marvin PASTE MACHINE OPERATOR Telephone Encounter - Kaela Nino L.PGonzaloN. - 09/09/2020 10:32 AM SPUN PASTE MACHINE OPERATOR Appears to have been discontinued at visit today, notes not yet available, please advise. PASTE MACHINE OPERATOR Telephone Encounter - Chloe Leahy - 09/09/2020 9:59 AM CST Reason for Communication: Family Alicia FAULKNER called on RX for Carly Current Can Nursing/Provider leave a detailed message?: Y Did the patient refuse triage through Nurse line? (for symptom based concerns):N Action Needed: Call Family Vargas Name of Medication (if relevant): Aerospan PASTE MACHINE OPERATOR documented in this encounter Plan of Treatment Not on filedocumented as of this encounter Visit Diagnoses Not on filedocumented in this encounter Additional Health Concerns Assessment Noted Time PHQ-9 Depression Total Score: 10 11/08/2018 12:47 PM C DT documented as of this encounter Care Teams Exchange Architect Relationship Specialty Start Date End Date Ary Purcell P.A.-C., P.A. PCP - General 06/07/19 01/14/22 documented as of this encounter
--- OUTSIDE RECORDS SUMMARY | 2022-06-01 09:37 | XMS_ITS | Encounter Summary ---
:1995 Author Organization [facility] Address [address] [place] [address] Care Team Providers Name Role Phone Chandni Urbina APRN, C.NTeddy, D.N.P. Primary Care Provider Reason for Visit Reason Comments Follow-up Infection concerns, swelling , distal part of incision get red and hot Encounter Details Date Type Department Care Team Description 06/01/2019 Office Visit Department of Edwige Lundberg, Fracture An kle Closed Orthopedic Surgery in Guillermina BRITTONN.Mana, Initi al Left Bailee KebedeN.P. [address] [place] [phone] Social History Tobacco Use Types Packs/Day Years [...] How often do you attend orthodoxy or zoroastrianism Never 10/23/2020 services? 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 [address] [place] [phone] documented as of this encounter
--- OUTSIDE RECORDS SUMMARY | 2022-06-01 09:37 | XMS_ITS | Encounter Summary ---
:1995 Author Organization [facility] Address [address] [place] [address] Care Team Providers Name Role Phone Ary Purcell P.A.-C., P.A. Primary Care Provider Ailin diaz Encounter Details Date Type Department Care Team Description 10/15/2019 Clinical Communication Department of Vani Salazar, Medicine, [place] Gabriel, P.A. Clinic, in [address] [phone] Social History Tobacco Use Types Packs/Day Years [...] How often do you attend confucianist or protestant Never 10/23/2020 services? 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 We may contact Carly at [phone] and she states we may leave a detailed message, should we receive her voicemail. CTOR BIOMEDICAL ENGINEERING documented in this encounter Plan of Treatment Not on filedocumented as of this encounter Results QuantiFERON-Tb Gold Plus, Blood (10/16/2019 2:38 PM DIRECTOR BIOMEDICAL ENGINEERING) P athologist Signature QuantiFERON-TB Negative Negative 10/18/2019 ECLR Gold Plus 1:34 PM DIRECTOR BIOMEDICAL ENGINEERING Result Comment: No interferon-gamma response to M. [...] Diagnosis of Tuberculosis in Adults and Children [Natoinsmona HE et. al. Clin. Infect. Dis. 2017;64(2):111-115]. The reference range for the 'TB1 Ag ninoska s Nil Result' and 'TB2 Ag minus Nil Result' is an Inte rferon-gamma level <0.35 IU/mL. TB1 Ag minus Nil Result 0.00 IU/mL 10/18/2019 1:34 PM DIRECTOR BIOMEDICAL ENGINEERING ECLR TB2 Ag minus Nil Result 0.00 IU/mL 10/18/2019 1:34 PM DIRECTOR BIOMEDICAL ENGINEERING ECLR Mitogen minus Nil Result >10.00 IU/mL 10/18/2019 1:34 PM DIRECTOR BIOMEDICAL ENGINEERING ECLR Nil Result 0.02 IU/mL 10/18/2019 1:34 PM DIRECTOR BIOMEDICAL ENGINEERING ECLR Specimen Anatomical Collection Method Collection Time Receive d Time (Source) Location / / Volume Laterality Blood (Blood, 10/16/2019 2:38 PM 10/16/19 9:46 Venous) DIRECTOR BIOMEDICAL ENGINEERING PM DIRECTOR BIOMEDICAL ENGINEERING Narrative [facility] - 10/18/2019 1:34 PM DIRECTOR BIOMEDICAL ENGINEERING Specimen Information: Specimen ID: [id number] Specimen Type: Blood Specimen Collection Start Date: 0 ??2:38 PM Specimen Received Date: 10/16/2019 ??9:46 PM Specimen ID: [id number] Specimen Type: Blood Specimen Collection Start Date: 0 ??2:38 PM Specimen Received Date: 10/16/2019 ??9:46 PM Specimen ID: [id number] Specimen Type: Blood Specimen Collection Start Date: 0 ??2:38 PM Specimen Received Date: 10/16/2019 ??9:46 PM Specimen ID: [id number] Specimen Type: Blood Specimen Collection Start Date: 0 ??2:38 PM Specimen Received Date: 10/16/2019 ??9:46 PM Ary Purcell P.A.-C., P.A. LAB MICROBIOLOGY - BLOOD ORDERABLES Performing Organization Address City/State/ZIP Code Phon e Number [facility] [address] [place] [address] [place] [address] System in [address] documented in this encounter Visit Diagnoses Diagnosis Screening Test Laboratory - Primary Screening Test Laboratory documented in this encounter Additional Health Concerns Assessment Noted Time PHQ-9 Depression Total Score: 10 11/08/2018 12:47 PM C DT documented as of this encounter Care Teams Repairer Veneer Sheet Relationship Specialty Start Date End Date Ary Purcell P.A.-C., P.A. PCP - General 06/07/19 01/14/22 documented as of this encounter
--- OUTSIDE RECORDS SUMMARY | 2022-06-01 09:37 | XMS_ITS | Encounter Summary ---
:1995 Author Organization [facility] Address [address] [place] [address] Care Team Providers Name Role Phone Ary Purcell P.A.-C., P.A. Primary Care Provider Unavaila ble Reason for Visit Reason Comments COVID Nurse Line Encounter Details Date Type Department Care Team Description 12/03/2019 Clinical Communication Central Appointment Line, Covid COVID Nurse Line Office in [facility] [address] [place], [place] [address] Social History Tobacco Use Types Packs/Day Years [...] How often do you attend baptist or confucianist Never 10/23/2020 services? 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 If soap and water aren't available, use a hand real estate intern that contains at least 60% alcohol. Avoid [...] essential items or medical care). Educational Resource: https://www.cdc.gov/coronavirus/2019-ncov/xhlglrs-yxdglxe-fdgp/index.html Recommendations as testing criteria is met: Stay [...] or 65 years and older. Go to [facility] emergency department if any of the following occur: 1) New shortness of breath at rest, 2) Pain, pressure or tightness unrelated to coughing in the chest, jaw or arm, 3) Newly confused or unable to stay alert and awake. Notify primary care provider if any new or worsening symptoms. Education Resources: https://www.cdc.gov/coronavirus/2019-ncov/lj-xxn-ovo-sick/aacpv-oqyh-hltk.html Education: patient/caregiver Patient/caregiver able to teach back Patient agreeable to plan of care: Yes The following references were used: [facility] Nursing judgement documented in this encounter Plan of Treatment Not on filedocumented as of this encounter Visit Diagnoses Not on filedocumented in this encounter Additional Health Concerns Assessment Noted Time PHQ-9 Depression Total Score: 10 11/08/2018 12:47 PM C DT documented as of this encounter Care Teams Sprinkler Repair Technician Relationship Specialty Start Date End Date Ary Purcell P.A.-C., P.A. PCP - General 06/07/19 01/14/22 documented as of this encounter
--- OUTSIDE RECORDS SUMMARY | 2022-06-01 09:37 | XMS_ITS | Encounter Summary ---
:1995 Author Organization [facility] Address [address] [place] [address] Care Team Providers Name Role Phone Chandni Urbina APRN, C.N.Mana, D.N.P. Primary Care Provider Reason for Visit Reason Onset Date Comments Fax number 05/08/2019 Encounter Details Date Type Department Care Team Description 05/08/2019 Clinical Communication Department of Edwige Lundberg F ax number Orthopedic Surgery in [place] C.N.Mana, [place], D.N.P. [address] [phone] Social History Tobacco Use Types Packs/Day Years [...] How often do you attend pentecostal or hindu Never 10/23/2020 services? 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 Telephone Encounter - Carmencita Jain L.P.N. - 05/08/2019 9:00 AM CDT What needs to be faxed? The patient has not been seen since 04/27/19 Telephone Encounter - Mayra Zavaleta - 05/08/2019 8:07 AM CDT Reason for Communication: Sary say the fax number for [facility]. Attn Kaya Meng Current Can Nursing/Provider [...] documented as of this encounter Care Teams Deck Engineer Relationship Specialty Start Date End Date Chandni Urbina APRN, C.N.P., PCP - General Family Medicine 06/06/19 D.N.P. [address] [place] [phone] documented as of this encounter
--- OUTSIDE RECORDS SUMMARY | 2022-06-01 09:37 | XMS_ITS | Encounter Summary ---
:1995 Author Organization [facility] Address [address] [place] [address] Care Team Providers Name Role Phone Ary Purcell P.A.-C., P.A. Primary Care Provider Unavaila ble Reason for Visit Reason Comments Med Refill Encounter Details Date Type Department Care Team Description 07/08/2019 Refill Department of Orthopedic Chandni Urbina APRN, Med Refill Surgery in [place], [place] C.N.P., D.N.P. [address] [facility] [address] [place] [address] [place] [phone] (Wo rk) Social History Tobacco Use Types [...] How often do you attend nondenominational or anglican Never 10/23/2020 services? 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 PCP - General 06/07/19 01/14/22 documented as of this encounter
--- OUTSIDE RECORDS SUMMARY | 2022-06-01 09:37 | XMS_ITS | Encounter Summary ---
:1995 Author Organization [facility] Address [address] [place] [address] Care Team Providers Name Role Phone Ary Purcell P.A.-C., P.A. Primary Care Provider Unavaila ble Reason for Visit Reason Comments Sore Throat Aug 03 Nasal Congestion Appointment Request (Routine) - Closed Specialty Diagnoses / Procedures Referred By Contact Refer red To Contact Family Medicine Referral ID Status Reason Start Date Expiration Date Visits Requ ested Visits Authorized [id number] Closed 08/20/2019 08/19/2020 1 1 Encounter Details Date Type Department Care Team Description 08/21/2019 Office Visit Department of Family Ary Purcell, Inf ection Upper Respiratory (Primary Dx); Medicine, [place] PSoham-[place]., P.A. Phar yngitis Acute Clinic, in [address] [phone] Social History Tobacco Use Types Packs/Day Years [...] How often do you attend hinduism or hindu Never 10/23/2020 services? Do you [...] or the highest technical, or vocational p [employer] degree you have received? 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 documented as of this encounter Last Filed Vital Signs Vital Sign Reading Time Taken Comments Blood Pressure 115/81 08/21/2019 2:25 PM DECATOR OPERATOR Pulse 70 08/21/2019 2:25 PM DECATOR OPERATOR Temperature 36.7 ??C (98.1 ??F) 08/21/2019 2:25 PM DECATOR OPERATOR Respiratory Rate 20 08/21/2019 2:25 PM DECATOR OPERATOR Oxygen Saturation 98% 08/21/2019 2:25 PM DECATOR OPERATOR Inhaled Oxygen Concentration - - Weight 115 kg (253 lb 8.5 oz) 08/21/2019 2:25 PM DECATOR OPERATOR Height - - Body Mass Index 40.92 02/20/2019 1:57 PM CDT documented in this encounter Patient Instructions Patient InstructionsAry Purcell P.A.-C. - 08/21/2019 2:30 PM CST May use OTC antihistamine (Zyrtec or Claritin) or similar for the next few days. May use OTC Flonase twice per day to help with nasal congestion and postnasal drip. Cold/cough remedies also available OTC - DayQuil/NyQuil, Mucinex, Sandra-Lantry Cold/Flu, Robitussin DM, cough/throat lozenges, honey. May use OTC analgesics such as Tylenol/ibuprofen for low grade fevers and body aches. Increase fluid intake. Get plenty of rest. Cover your cough. Wash hands frequently. Follow up if symptoms worsen or fail to improve over the next several days. TOR OPERATOR documented in this encounter Progress Notes [...] swab today. Her pharmacy of choice is [facility]. 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 Ary Purcell P.A.-C. TOR OPERATOR documented in this encounter Plan of Treatment Not on filedocumented as of this encounter Procedures Procedure Name Priority Date/Time Associated Diagnosis Comme nts STREP GROUP A, PCR, Routine 08/21/2019 3:02 PM Re sults for this POCT DECATOR OPERATOR procedure are i n the results section. STREP GROUP A, PCR, Routine 08/21/2019 2:43 PM Pharyngitis Acu te Results for this POCT DECATOR OPERATOR procedure are i n the results section. documented in this encounter Results Strep Group A, PCR, Point of Care (08/21/2019 3:02 PM DECATOR OPERATOR) P athologist Signature Strep Group A, Negative Negative 08/21/2019 CNFL PCR, POCT 3:02 PM DECATOR OPERATOR Specimen Anatomical Collection Method Collection Time Receive d Time (Source) Location / / Volume Laterality Varies 08/21/2019 3:02 PM 0 3:03 DECATOR OPERATOR PM DECATOR OPERATOR Generic [facility] POCT ORDERABLES - DEVICE Performing Organization Address City/State/[facility] Code Phon e Number [address] [address] [place] [address] [address] Strep Group A, PCR, Point of Care (08/21/2019 2:43 PM DECATOR OPERATOR) Analysis Performed At Patho logist Time Signature Strep Group A, Collected DEFAULT 08/21/2019 CNFL PCR, POCT 2:43 PM DECATOR OPERATOR Specimen Anatomical Collection Method Collection Time Receive d Time (Source) Location / / Volume Laterality Varies (Throat) 08/21/2019 2:43 PM 2019 2:43 DECATOR OPERATOR PM DECATOR OPERATOR Ary Purcell P.A.-C., P.A. LAB POCT ORDERABLES - DEV ICE Performing Organization Address City/State/[facility] Code Phon e Number [address] [place] [address] System in [address] documented in this encounter Visit Diagnoses Diagnosis Infection Upper Respiratory - Primary Pharyngitis Acute documented in this encounter Additional Health Concerns Assessment Noted Time PHQ-9 Depression Total Score: 10 11/08/2018 12:47 PM C DT documented as of this encounter Care Teams Weigh And Charge Worker Relationship Specialty Start Date End Date Ary Purcell P.A.-C., P.A. PCP - General 06/07/19 01/14/22 documented as of this encounter
--- OUTSIDE RECORDS SUMMARY | 2022-06-01 09:37 | XMS_ITS | Encounter Summary ---
:1995 Author Organization [facility] Address [address] [place] [address] Care Team Providers Name Role Phone Chandni Urbina APRN, C.N.P., D.N.P. Primary Care Provider Reason for Visit Reason Comments nurse only flu shot Appointment Request (Routine) - Closed Specialty Diagnoses / Procedures Referred By Contact Refer red To Contact Family Medicine Referral ID Status Reason Start Date Expiration Date Visits Requ ested Visits Authorized [id number] Closed 05/18/2019 05/17/2020 1 1 Encounter Details Date Type Department Care Team Description 05/18/2019 Immunization Department of Family Chandni Urbina APRN, C.N.P., D.N.P. [address] [place] [phone] Immunization Only Medicine, Katty Peter, RGonzaloNGonzalo [address] [place] [phone] (Primary Dx) [facility], in [address] [phone] Social History Tobacco Use Types [...] How often do you attend faith or judaism Never 10/23/2020 services? 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 [address] [place] [phone] documented as of this encounter
--- OUTSIDE RECORDS SUMMARY | 2022-06-01 09:37 | XMS_ITS | Encounter Summary ---
:1995 Author Organization [facility] Address [address] [place] [address] Care Team Providers Name Role Phone Ayr Purcell P.A.-C., P.A. Primary Care Provider Ailin diaz Encounter Details Date Type Department Care Team Description 10/16/2019 Hospital Encounter Department of Ary Purcell Screeni ng Test Laboratory Medicine Gabriel Heller, Laborato ry in [place], .A. [address] [phone] Social History Tobacco Use Types Packs/Day Years [...] How often do you attend hinduism or anabaptism Never 10/23/2020 services? 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/2017 10:51 AM PROCESSING MGR documented as of this encounter Medications at [...] Screening Test Results for this PLUS, B PROCESSING MGR Laboratory procedure are i n the results section. documented in this encounter Results QuantiFERON-Tb Gold Plus, Blood (10/16/2019 2:38 PM PROCESSING MGR) athologist Signature QuantiFERON-TB Negative Negative 10/18/2019 ECLR Gold Plus 1:34 PM PROCESSING MGR Result Comment: No interferon-gamma response to M. [...] Nil Result 0.00 IU/mL 10/18/2019 1:34 PM PROCESSING MGR ECLR TB2 Ag minus Nil Result 0.00 IU/mL 10/18/2019 1:34 PM PROCESSING MGR ECLR Mitogen minus Nil Result >10.00 IU/mL 10/18/2019 1:34 PM PROCESSING MGR ECLR Nil Result 0.02 IU/mL 10/18/2019 1:34 PM PROCESSING MGR ECLR Specimen Anatomical Collection Method Collection Time Receive d Time (Source) Location / / Volume Laterality Blood (Blood, 10/16/2019 2:38 PM 10/16/19 20 9:46 Venous) PROCESSING MGR PM PROCESSING MGR Narrative [facility] - 10/18/2019 1:34 PM PROCESSING MGR Specimen Information: Specimen ID: [id number] Specimen Type: Blood Specimen Collection Start Date: 0 ??2:38 PM Specimen Received Date: 10/16/2019 ??9:46 PM Specimen ID: [id number] Specimen Type: Blood Specimen Collection Start Date: 0 ??2:38 PM Specimen Received Date: 10/16/2019 ??9:46 PM Specimen ID: [id number] Specimen Type: Blood Specimen Collection Start Date: 0 ??2:38 PM Specimen Received Date: 10/16/2019 ??9:46 PM Specimen ID: [id number] Specimen Type: Blood Specimen Collection Start Date: 0 ??2:38 PM Specimen Received Date: 10/16/2019 ??9:46 PM Ary Purcell P.A.-C., P.A. LAB MICROBIOLOGY - BLOOD ORDERABLES Performing Organization Address City/State/[facility] Phon e Number [facility]- [address] [place] [phone] [facility] [place] [address] System in [address] documented in this encounter Visit Diagnoses Diagnosis Screening Test Laboratory documented in this encounter Additional Health Concerns Assessment Noted Time PHQ-9 Depression Total Score: 11/08/2018 12:47 PM C DT documented as of this encounter Care Teams Cook Fruit Relationship Specialty Start Date End Date Ary Purcell P.A.-C., P.A. PCP - General 06/07/19 01/14/22 documented as of this encounter
--- OUTSIDE RECORDS SUMMARY | 2022-06-01 09:37 | XMS_ITS | Encounter Summary ---
:1995 Author Organization [facility] Address [address] [place] [address] Care Team Providers Name Role Phone Ary Purcell P.A.-C. P.AGonzalo Primary Care Provider Ailin diaz Encounter Details Date Type Department Care Team Description 08/20/2019 [facility], [facility], in [address] [place], [place] [address] [place] [address] Social History Tobacco Use Types Packs/Day Years [...] How often do you attend muslim or mosque Never 10/23/2020 services? 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 PCP - General 06/07/19 01/14/22 documented as of this encounter
--- OUTSIDE RECORDS SUMMARY | 2022-06-01 09:37 | XMS_ITS | Encounter Summary ---
:1995 Author Organization [facility] Address [address] [place] [address] Care Team Providers Name Role Phone Chandni Urbina APRN CGonzaloN.PGonzalo, D.N.P. Primary Care Provider Reason for Visit Reason Comments Follow-up Patient WBAT, Pain level 08/15 0, Concerned about incision site Outpatient (Routine) - Closed Specialty Diagnoses / Procedures Referred By Contact Refer red To Contact Orthopedic Surgery Edwige Lundberg, [place], [facility] C.N.PGonzalo, D.N.P. [address] [place] [phone] Referral ID Status Reason Start Date Expiration Date Visits Requ ested Visits Authorized [id number] Closed 04/03/2019 04/02/2020 1 1 Encounter Details Date Type Department Care Team Description 04/27/2019 Office Visit Department of Edwige Lundberg, Follow Up E xamination Orthopedic Surgery in [place].N.PGonzalo, Posto perative Visit Bailee KebedeNTeddy (Primary Dx) [address] [phone] Social History Tobacco Use Types Packs/Day Years [...] How often do you attend anglican or orthodoxy Never 10/23/2020 services? 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 [address] [place] [phone] documented as of this encounter
--- OUTSIDE RECORDS SUMMARY | 2022-06-01 09:37 | XMS_ITS | Encounter Summary ---
:1995 Author Organization [facility] Address [address] [place] [address] Care Team Providers Name Role Phone Chandni Urbina APRN, C.N.Mana, D.N.P. Primary Care Provider Encounter Details Date Type Department Care Team Description 04/27/2019 Hospital Encounter Department of Edwige Lundberg Follo w Up Examination Postoperative Visit; Radiology in [place] C.N.PGonzalo, Celluli tis Leg [place], [place] D.N.P. [address] [place] [phone] Social History Tobacco Use Types Packs/Day Years [...] times do you talk on Twice a milagros k 10/23/2020 the phone with family, friends, or neighbors? How often do you get together with friends or Once a week 10/23/2020 relatives? How often do you attend mu-ism or mu-ism Never 10/23/2020 services? 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 [address] [place] [phone] documented as of this encounter
--- OUTSIDE RECORDS SUMMARY | 2022-06-01 09:37 | XMS_ITS | Encounter Summary ---
:1995 Author Organization [facility] Address [address] [place] [address] Care Team Providers Name Role Phone Ary Purcell P.A.-C., P.A. Primary Care Provider Unavaila ble Reason for Visit Reason Onset Date Comments Outpatient COVID-19 Testing 12/03/2019 Encounter Details Date Type Department Care Team Description 12/03/2019 External Outreach Department of [facility] Betty Garcia Infection Upper Medicine, [place] Jose Armando PGonzaloAGonzalo-Guillermina Respiratory (Primary Clinic, in [place], [address] [place] [address] Dx) [place], [place] [address] [facility] [address] [place], [place] [phone] (Work) [phone] Social History Tobacco Use Types Packs/Day Years [...] How often do you attend shinto or anabaptist Never 10/23/2020 services? 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 in a manner co nsistent with CLIA requirements. Independent review by the U.S. Food and Drug Administration is pending. Visit the CDC website: https://www.cdc.gov/coronavirus/ ?? for the most recent guidelines on Toribio virus testing. Fact Sheet for Healthcare Providers: (https://www.[employer]/it-mmfil es/ Provider_Fact_Sheet_for_[place]_COVI D-19.pdf) Fact Sheet for Patients: (https://www.[employer]/it-mmfil es/ Patient_Fact_Sheet_for_COVID-19.pdf) Specimen Anatomical Collection Method Collection Time Receive d Time (Source) Location / / Volume Laterality Varies 12/03/2019 10:39 12/03/2019 (Nasopharynx) AM CDT 12:52 PM CDT Emmanuel Garcia P.A.-C. LAB MICROBIOLOGY - GENERAL O AUGUSTERABLES Performing Organization Address City/State/[facility] Code Phon e Number [facility] [address] [place], [place] [address] [facility] [place] [address] [facility] [address] [facility] documented in this encounter Visit Diagnoses Diagnosis Infection Upper Respiratory - Primary documented in this encounter Additional Health Concerns Infection Onset Date Last Indicated Resolved Time COVID19 Pending 12/03/2019 12/03/2019 12/03/2019 8:49 PM CDT Assessment Noted Time PHQ-9 Depression Total Score: 10 11/08/2018 12:47 PM C DT documented as of this encounter Care Teams Lasting Floorworker Relationship Specialty Start Date End Date Ary Purcell P.A.-C., P.A. PCP - General 06/07/19 01/14/22 documented as of this encounter
--- OUTSIDE RECORDS SUMMARY | 2022-06-01 09:37 | XMS_ITS | Encounter Summary ---
:1995 Author Organization [facility] Address [address] [place] [address] Care Team Providers Name Role Phone Ary [...] Expiration Date Visits Requ ested Visits Authorized [id number] Closed 09/03/2019 09/02/2020 1 1 Encounter Details Date Type Department Care Team Description 09/03/2019 Office Visit Department of Family Ary Purcell Inf ection Upper Respiratory (Primary Dx); Medicine, [place] Gabriel, P.A. Phar yngitis Acute; Clinic, in [facility] Intermittent (HCC) [address] [phone] Social History Tobacco Use Types Packs/Day Years [...] How often do you attend sikhism or shinto Never 10/23/2020 services? 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 documented as of this encounter Last Filed Vital Signs Vital Sign Reading Time Taken Comments Blood Pressure 91/74 09/03/2019 11:00 AM MAGNETIC TAPE TYPEWRITER OPERATOR Pulse 77 09/03/2019 11:00 AM MAGNETIC TAPE TYPEWRITER OPERATOR Temperature 37 ??C (98.6 ??F) 09/03/2019 11:00 AM MAGNETIC TAPE TYPEWRITER OPERATOR Respiratory Rate - - Oxygen Saturation 98% 09/03/2019 11:00 AM MAGNETIC TAPE TYPEWRITER OPERATOR Inhaled Oxygen Concentration - - Weight 114 kg (251 lb 12.3 oz) 09/03/2019 11:00 AM MAGNETIC TAPE TYPEWRITER OPERATOR Height - - Body Mass Index 40.64 02/20/2019 1:57 PM CDT documented in this encounter Patient Instructions Patient InstructionsAry Purcell, ManaACullenC. - 09/03/2019 11:00 AM CST May use OTC antihistamine (Zyrtec or Claritin) or similar for the next few days. May use OTC Flonase twice per day to help with nasal congestion and postnasal drip. Cold/cough remedies also available OTC - DayQuil/NyQuil, Mucinex, [place] Cold/Flu, Robitussin DM, cough/throat lozenges, honey. May use OTC analgesics such as Tylenol/ibuprofen for low grade fevers and body aches. Increase fluid intake. Get plenty of rest. Cover your cough. Wash hands frequently. Follow up if symptoms worsen or fail to improve over the next several days. ETIC TAPE TYPEWRITER OPERATOR documented in this encounter Progress Notes [...] further needs atthis time. Ary Purcell P.A.-C. ETIC TAPE TYPEWRITER OPERATOR documented in this encounter Plan of Treatment Not on filedocumented as of this encounter Visit Diagnoses Diagnosis Infection Upper Respiratory - Primary Pharyngitis Acute Asthma Mild Intermittent (HCC) documented in this encounter Additional Health Concerns Assessment Noted Time PHQ-9 Depression Total Score: 10 11/08/2018 12:47 PM C DT documented as of this encounter Care Teams Senior Portfolio Analyst Relationship Specialty Start Date End Date Ary Purcell P.A.-C., P.A. PCP - General 06/07/19 01/14/22 documented as of this encounter
--- OUTSIDE RECORDS SUMMARY | 2022-06-01 09:38 | XMS_ITS | Encounter Summary ---
:1995 Author Organization [facility] Address [address] [place] [address] Care Team Providers Name Role Phone Chandni Urbina APRN, C.N.Mana, D.N.P. Primary Care Provider Reason for Visit Reason Comments Annual Exam Appointment Request (Routine) - Closed Specialty Diagnoses / Procedures Referred By Contact Refer red To Contact Family Medicine Referral ID Status Reason Start Date Expiration Date Visits Requ ested Visits Authorized [id number] Closed 10/09/2018 10/09/2019 1 Encounter Details Date Type Department Care Team Description 10/12/2018 Comprehensive Visit Department of Chandni Urbina Adult Examination Normal (Primary Dx); Family Medicine, [place], [place], Counseling And Review Vaccination Status [place] C.N.PGonzalo, D.N.P. [facility], in [place] [phone] [facility] [phone] [place], [place] (Work) [phone] Social History Tobacco Use [...] How often do you attend quaker or jehovah's witness Never 10/23/2020 services? 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 documented as of this encounter Last Filed Vital Signs Vital Sign Reading Time Taken Comments Blood Pressure 123/67 10/12/2018 8:57 AM ACCORDION REPAIRER Pulse 74 10/12/2018 8:57 AM ACCORDION REPAIRER Temperature 36.8 ??C (98.2 ??F) 10/12/2018 8:57 AM ACCORDION REPAIRER Respiratory Rate 20 10/12/2018 8:57 AM ACCORDION REPAIRER Oxygen Saturation 98% 10/12/2018 8:57 AM ACCORDION REPAIRER Inhaled Oxygen Concentration - - Weight 106 kg (234 lb 5.6 oz) 10/12/2018 8:57 AM ACCORDION REPAIRER Height 168 cm (5' 6.14) 10/12/2018 8:57 AM ACCORDION REPAIRER Body Mass Index 37.66 10/12/2018 8:57 AM ACCORDION REPAIRER documented in this encounter H&P Notes Chandni [...] the content. Chandni Urbina APRN, C.N.P., D.N.P. RDION REPAIRER documented in this encounter Plan of Treatment Not on filedocumented as of this encounter Procedures Procedure Name Priority Date/Time Associated Diagnosis Comme nts QUANTIFERON-TB GOLD Routine 10/12/2018 9:57 AM Counseling And Results for this PLUS, B ACCORDION REPAIRER Review Vaccination procedure are in Status the results section. MMRV IMMUNE STATUS Routine 10/12/2018 9:39 AM Counseling And R esults for this PROFILE ACCORDION REPAIRER Review Vaccination procedure are in Status the results section. HEPATITIS B SURFACE Routine 10/12/2018 9:39 AM Counseling And Results for this ANTIGEN ACCORDION REPAIRER Review Vaccination procedure are in Status the results section. documented in this encounter Results QuantiFERON-Tb Gold Plus, Blood (10/12/2018 9:57 AM ACCORDION REPAIRER) P athologist Signature QuantiFERON-TB Negative Negative 10/16/2018 [facility] Gold Plus 11:27 AM ACCORDION REPAIRER [facility] Comment: No interferon-gamma response to M. [...] minus Nil 0.00 IU/mL 10/16/2018 11:27 AM ACCORDION REPAIRER [facility] TB2 Ag minus Nil 0.00 IU/mL 10/16/2018 11:27 AM ACCORDION REPAIRER [facility] Mitogen minus Nil >10.00 IU/mL 10/16/2018 11:27 AM CS T [facility] Nil Result 0.02 IU/mL 10/16/2018 11:27 AM ACCORDION REPAIRER [facility] Specimen Anatomical Collection Method Collection Time Receive d Time (Source) Location / / Volume Laterality Blood (Blood, 10/12/2018 9:57 AM 10/14/19 3:14 Venous) ACCORDION REPAIRER PM ACCORDION REPAIRER Narrative [facility] - 10/16/2018 11:27 AM ACCORDION REPAIRER Specimen Information: Specimen ID: [id number] Specimen Type: Blood Specimen Collection Start Date: 10/12/19 ??9:57 AM Specimen Received Date: 10/13/2018 ??3:14 PM Specimen ID: [id number] Specimen Type: Blood Specimen Collection Start Date: 10/12/19 ??9:58 AM Specimen Received Date: 10/13/2018 ??3:14 PM Specimen ID: [id number] Specimen Type: Blood Specimen Collection Start Date: 10/12/19 ??9:58 AM Specimen Received Date: 10/13/2018 ??3:14 PM Specimen ID: [id number] Specimen Type: Blood Specimen Collection Start Date: 10/12/19 ??9:57 AM Specimen Received Date: 10/13/2018 ??3:14 PM Chandni Urbina APRN C.N.P., D.N.P. LAB MICROBIOLOGY - BLOOD ORDERABLES Performing Organization Address City/State/ZIP Code Phon e Number [facility] [address] [facility] [address] [facility] MMRV Immune Status Profile (10/12/2018 9:39 AM ACCORDION REPAIRER) P athologist Signature Measles Positive 10/13/2018 [facility] ([place]) Ab, 11:36 AM [facility] IgG, S [facility] Comment: Results suggest response to immunization or prior exposure to the virus. ----REFERENCE VALUE---- Vaccinated: Positive (>=1.1 AI) Unvaccinated: Negative (<=0.8 AI) Measles IgG Antibody 4.7 10/13/2018 11:36 AM [facility] Mumps Ab, IgG, S Positive 10/13/2018 11:36 AM [facility] Comment: Results suggest response to immunization or prior exposure to the virus. ----REFERENCE VALUE---- Vaccinated: Positive (>=1.1 AI) Unvaccinated: Negative (<=0.8 AI) Mumps IgG Antibody 1.7 10/13/2018 11:36 AM [facility] Rubella Ab, IgG, S Positive 10/13/2018 11:[address] [facility] Comment: Results suggest response to immunization or prior exposure to the virus. ----REFERENCE VALUE---- Vaccinated: Positive (>=1.0 AI) Unvaccinated: Negative (<=0.7 AI) Rubella IgG Antibody 2.2 10/13/2018 11:36 AM [facility] LAB Varicella-Zoster Ab, Positive 10/13/2018 11:36 AM [facility] IgG, S [facility] Comment: Results suggest response to immunization or prior exposure to the virus. ----REFERENCE VALUE---- Vaccinated: Positive (>=1.1 AI) Unvaccinated: Negative (<=0.8 AI) Varicella IgG Antibody 3.3 10/13/2018 11:36 AM ACCORDION REPAIRER [facility] LAB Specimen Anatomical Collection Method Collection Time Receive d Time (Source) Location / / Volume Laterality Blood (Blood, 10/12/2018 9:39 AM 10/12/19 19 2:26 Venous) ACCORDION REPAIRER PM ACCORDION REPAIRER Mitchell Geller APRN.N.P., D.N.P. LAB MICROBIOLOGY - BLOOD ORDERABLES Performing Organization Address [facility] Phon e Number [phone] [place] [address] LAB Hepatitis B Surface Antigen (10/12/2018 9:39 AM ACCORDION REPAIRER) [facility] Method Time Signature HBs Antigen, Nonreactive Nonreactive 10/13/2018 [facility] S 11:52 AM ACCORDION REPAIRER [facility] Specimen Anatomical Collection Method Collection Time Receive d Time (Source) Location / / Volume Laterality Blood (Blood, 10/12/2018 9:39 AM 10/12/19 19 2:26 Venous) ACCORDION REPAIRER PM ACCORDION REPAIRER Mitchell Geller APRN.N.P., D.N.P. LAB MICROBIOLOGY - BLOOD ORDERABLES Performing Organization Address [facility] Phon e Number [address] LAB documented in this encounter Visit Diagnoses Diagnosis Well Adult Examination Normal - Primary Counseling And Review Vaccination Status documented in this encounter Additional Health Concerns Assessment Noted Time PHQ-9 Depression Total Score: 15 10/11/2018 12:[address] documented as of this encounter Care Teams Drill Press Operator For Metal Relationship Specialty Start Date End Date Chandni Urbina APRN, C.N.P., PCP - General Family Medicine 06/06/19 D.N.P. [address] [phone] documented as of this encounter
--- OUTSIDE RECORDS SUMMARY | 2022-06-01 09:38 | XMS_ITS | Encounter Summary ---
:1995 Author Organization [facility] Address [address] [place] [address] Care Team Providers Name Role Phone Chandni Urbina APRN C.N.P., D.N.P. Primary Care Provider Reason for Visit Reason Comments Follow-up Imbedded suture Encounter Details Date Type Department Care Team Description 03/20/2019 Office Visit Department of Edwige Lundberg APRN, C.N.P., D.N.P. [address] [place] [address] Open Reduction Orthopedic Surgery in Chandni Urbina APRN, C.N.P., D.N.P. [address] [place] [address] Internal Fixation Hakeem Genao, Ankle Status P ost [place] (Primary Dx) [address] [place] [address] [place] [address] Social History Tobacco Use Types [...] How often do you attend scientologist or latter-day Never 10/23/2020 services? 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 - 03/20/2019 1:30 PM CDT [...] documented as of this encounter Care Teams Assurance Analyst Relationship Specialty Start Date End Date Chandni Urbina APRN, C.N.P., PCP - General Family Medicine 06/06/19 D.N.P. [address] [place] [phone] documented as of this encounter
--- OUTSIDE RECORDS SUMMARY | 2022-06-01 09:38 | XMS_ITS | Encounter Summary ---
:1995 Author Organization [facility] Address [address] [place] [address] Care Team Providers Name Role Phone Chandni Urbina APRN C.N.P., D.N.P. Primary Care Provider Reason for Referral Outpatient (Routine) - Closed Specialty Diagnoses / Procedures Referred By Contact Refer red To Contact Orthopedic Surgery Diagnoses Pain Ankle Left Edwige Lundberg, TOBI, [facility] C.N.P., D.N.P. [address] [place] [phone] Referral ID Status Reason Start Date Expiration Date Visits Requ ested Visits Authorized [id number] Closed 02/19/2019 02/19/2020 1 1 Scheduling Instructions Please schedule at 2:30 on March 06 with Edwige Lundberg. Encounter Details Date Type Department Care Team Description 02/19/2019 Orders Only Department of Edwige Lundberg Pain Ankle Left Orthopedic Surgery in [place] C.N.PGonzalo, (Prim celina Dx) Hakeem Genao, D.N.P. [address] [phone] Social History Tobacco Use Types Packs/Day Years [...] How often do you attend restorationist or taoism Never 10/23/2020 services? 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 [address] [phone] documented as of this encounter
--- OUTSIDE RECORDS SUMMARY | 2022-06-01 09:38 | XMS_ITS | Encounter Summary ---
:1995 Author Organization [facility] Address [address] [place] [address] Care Team Providers Name Role Phone Chandni Urbina APRN, C.N.Mana, D.N.P. Primary Care Provider Encounter Details Date Type Department Care Team Description 03/06/2019 Hospital Encounter Department of Edwige Lundberg, Pain Ankle Left Radiology in [place] D.N.P. [address] [phone] [phone] Social History Tobacco Use Types Packs/Day Years [...] How often do you attend baptist or sabianism Never 10/23/2020 services? 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 [address] [place] [phone] documented as of this encounter
--- OUTSIDE RECORDS SUMMARY | 2022-06-01 09:38 | XMS_ITS | Encounter Summary ---
:1995 Author Organization [facility] Address [address] [place] [address] Care Team Providers Name Role Phone Chandni Urbina APRN, C.N.P., D.N.P. Primary Care Provider Reason for Visit Reason Comments Med Refill Encounter Details Date Type Department Care Team Description 02/27/2019 Refill Department of Obstetrics and [facility], [facility] TOBI wolff, Med Refill Gynecology in [facility] ELOY, M.S .N., B.S.N., R.N. [id number] [place] [phone] [phone] Social History Tobacco Use Types Packs/Day Years [...] 10/23/2020 relatives? How often do you attend christian or scientologist Never 10/23/2020 services? 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 [address] [place] [address] documented as of this encounter
--- OUTSIDE RECORDS SUMMARY | 2022-06-01 09:38 | XMS_ITS | Encounter Summary ---
:1995 Author Organization [facility] Address [address] [place] [address] Care Team Providers Name Role Phone Chandni Urbina APRN, C.N.P., D.N.P. Primary Care Provider Reason for Visit Outpatient (Routine) - Closed Specialty Diagnoses / Procedures Referred By Contact Refer red To Contact Emergency Medicine Diagnoses Fracture Fibula Shaft Oblique Displaced Closed Initial Left Jesus Sorenson APRN, [facility] C.N.P. [address] [place] [address] Referral ID Status Reason Start Date Expiration Date Visits Requ ested Visits Authorized [id number] Closed 02/16/2019 02/16/2020 1 1 Encounter Details Date Type Department Care Team Description 02/19/2019 Office Visit Department of Bruno Spivey, Fracture Fibula Shaft Orthopedic Surgery in [place] Oblique Displaced [place], [place] [address] [facility] Closed Initial Left [address] [place], [place] [phone] Social History Tobacco Use Types Packs/Day [...] 10/23/2020 relatives? How often do you attend adventist or restorationist Never 10/23/2020 services? 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 [address] [place] [phone] documented as of this encounter
--- OUTSIDE RECORDS SUMMARY | 2022-06-01 09:38 | XMS_ITS | Encounter Summary ---
:1995 Author Organization [facility] Address [address] [place] [address] Care Team Providers Name Role Phone Chandni Urbina APRN C.N.PGonzalo, D.N.P. Primary Care Provider Reason for Referral Outpatient (Routine) - Closed Specialty Diagnoses / Procedures Referred By Contact Refer red To Contact Emergency Medicine Diagnoses Fracture Fibula Shaft Oblique Displaced Closed Initial Left Jesus Sorenson APRN, [facility] C.N.P. [address] [place] [address] Referral ID Status Reason Start Date Expiration Date Visits Requ ested Visits Authorized [id number] Closed 02/16/2019 02/16/2020 1 1 Reason for Visit Reason Comments Ankle Injury left Encounter Details Date Type Department Care Team Description 02/15/2019 - Emergency [place] Jesus Sorenson, Fracture Fi bula Shaft 02/16/2019 Emergency Department TOBI, C.N.P. Oblique Displaced [id number] [place] [address] [address] [facility] Closed Initial Left [place], [place] (Primary D x) [phone] Social History Tobacco Use Types Packs/Day [...] How often do you attend yazidism or hinduism Never 10/23/2020 services? 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 Authorized by: Jesus Sorenson APRN C.N.P. Care team members present 1. Jesus Sorenson [...] PROCEDURE DETAILS Procedure type: application Performed by: ACID WASHER OPERATOR Location: Leg Leg: Left lower leg Circulation [...] pain. She was walking out of the [employer] when she states she heard a pop [...] signs of ischemic limb. 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 02/16/19 0042 Hailey Reyes R.N. - [...] team members present 1. Jesus Sorenson APRN, C.N.P. PROCEDURE DETAILS Immobilization: ??Cast Cast type: [...] DETAILS Procedure type: application ?? Performed by: ??ACID WASHER OPERATOR Location: ??Leg Leg: ??Left lower leg Circulation [...] ?? Complications: no immediate complication s ?? Jesus Sorenson APRN C.N.P. PROCEDURE/MINOR SURGICAL O RDERABLES DX Ankle Left [...] mmend follow-up orthopedic surgical consultation. Jesus Sorenson APRN C.N.PGonzalo IMG DIAGNOSTIC IMAGING PRO CEDURES DX Tibia [...] t fibular fracture. Jesus Sorenson APRN, C.N.P. [facility] DIAGNOSTIC IMAGING PRO CEDURES documented in this [...] tablet (PERCOCET) 1 tablet, oral, Once, On Tue02/15/19 at 2325, For 1 dose documented in [...] documented as of this encounter Care Teams Helpdesk Specialist Relationship Specialty Start Date End Date Chandni Urbina, TOBI, C.N.P., PCP - General Family Medicine 06/06/19 D.N.P. [address] [place] [address] documented as of this encounter
--- OUTSIDE RECORDS SUMMARY | 2022-06-01 09:38 | XMS_ITS | Encounter Summary ---
:1995 Author Organization [facility] Address [address] [place] [address] Care Team Providers Name Role Phone Chandni Urbina APRN, C.N.Mana, D.N.P. Primary Care Provider Reason for Visit Reason Comments Post-op Wound Care Outpatient (Routine) - Closed Specialty Diagnoses / Procedures Referred By Contact Refer red To Contact Orthopedic Surgery Diagnoses Fracture Ankle Closed Initial Left Chandni Urbina, [facility] [place]BI C.N.PGonzalo, D.N.P. [address] [place] [address] Referral ID Status Reason Start Date Expiration Date Visits Requ ested Visits Authorized [id number] Closed 02/20/2019 02/20/2020 1 1 Encounter Details Date Type Department Care Team Description 03/29/2019 Office Visit Department of Chandni Urbina, Fracture Ankle Closed Orthopedic Surgery in [place] C.N.PGonzalo, [facility] al Left [place], [place] D.N.P. [address] [facility] [address] [place] [phone] Social History Tobacco Use Types Packs/Day Years [...] How often do you attend spiritism or confucianist Never 10/23/2020 services? 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 [address] [place] [phone] documented as of this encounter
--- OUTSIDE RECORDS SUMMARY | 2022-06-01 09:38 | XMS_ITS | Encounter Summary ---
:1995 Author Organization [facility] Address [address] [place] [address] Care Team Providers Name Role Phone Chandni [...] 10/23/2020 relatives? How often do you attend yazdanism or mandaen Never 10/23/2020 services? 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 [address] [place] [phone] documented as of this encounter
--- OUTSIDE RECORDS SUMMARY | 2022-06-01 09:38 | XMS_ITS | Encounter Summary ---
:1995 Author Organization [facility] Address [address] [place] [address] Care Team Providers Name Role Phone Chandni Urbina APRN C.N.Mana, D.N.P. Primary Care Provider Encounter Details Date Type Department Care Team Description 10/12/2018 Diagnostic Department of Sleep Dorian Khalil, Anxiety Generalized Medicine in [place] Tobias M.D. Disorder [place] [address] [facility] [address] [place] [address] [phone] Social History Tobacco Use Types Packs/Day Years [...] How often do you attend caodaism or catholic Never 10/23/2020 services? 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 documented as of this encounter Plan of Treatment Not on filedocumented as of this encounter Procedures Procedure Name Priority Date/Time Associated Diagnosis Comme nts PUL HOME OVERNIGHT Routine 10/13/2018 3:55 PM PIE TOPPER Anxiety Gene ralized OXIMETRY Disorder documented in this encounter Results Home Overnight Oximetry (10/13/2018 3:55 PM PIE TOPPER) Specimen (Source) Anatomical Location Collection Method / [...] documented as of this encounter Care Teams Photo Checker And Assembler Relationship Specialty Start Date End Date Chandni Urbina APRN, C.N.P., PCP - General Family Medicine 06/06/19 D.N.P. [address] [place] [phone] documented as of this encounter
--- OUTSIDE RECORDS SUMMARY | 2022-06-01 09:38 | XMS_ITS | Encounter Summary ---
:1995 Author Organization [facility] Address [address] [place] [address] Care Team Providers Name Role Phone Chandni Urbina APRN C.N.P., D.N.P. Primary Care Provider Reason for Referral Outpatient (Routine) - Closed Specialty Diagnoses / Procedures Referred By Contact Refer red To Contact Orthopedic Surgery Edwige Lundberg APRN, [facility] C.N.P., D.N.P. [address] [place] [address] Referral ID Status Reason Start Date Expiration Date Visits Requ ested Visits Authorized [id number] Closed 04/03/2019 04/02/2020 1 1 Reason for Visit Reason Comments Fracture Follow-up Infection Outpatient (Routine) - Closed Specialty Diagnoses / Procedures Referred By Contact Modesta mullen To Contact Orthopedic Surgery Diagnoses Follow Up Examination Postoperative Visit Cellulitis Leg Left Chandni Urbina [facility] TOBI, C.N.P., D.N.P. [address] [place] [address] Referral ID Status Reason Start Date Expiration Date Visits Requ ested Visits Authorized [id number] Closed 03/26/2019 03/25/2020 1 1 Encounter Details Date Type Department Care Team Description 04/03/2019 Office Visit Department of Edwige Lundberg, Follow Up E xaramya Postoperative Visit; Orthopedic Surgery in TO[facility], C.N.P., Cellu litis Leg Left [place], D.N.P. [address] [place] [phone] Social History Tobacco Use Types Packs/Day [...] How often do you attend temple or hindu Never 10/23/2020 services? 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 [address] [place] [address] documented as of this encounter
--- OUTSIDE RECORDS SUMMARY | 2022-06-01 09:38 | XMS_ITS | Encounter Summary ---
:1995 Author Organization [facility] Address [address] [place] [address] Care Team Providers Name Role Phone Chandni Matos APRN, C.N.Mana, D.N.P. Primary Care Provider Encounter Details Date Type Department Care Team Description 10/17/2018 Clinical Communication Department of [facility] Chandni Matos, Medicine, [place] [facility], C.N.P., Clinic, in [place] [address] [phone] Social History Tobacco Use Types Packs/Day Years [...] How often do you attend yazdanism or episcopal Never 10/23/2020 services? 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 - 10/25/2018 6:49 AM CDT Addended by: CHANDNI MATOS on: 10/25/2018 06:49 AM Modules accepted: Orders Telephone Encounter - Chandni Matos APRN C.N.P., D.N.P. - 10/25/2018 6:49 AM CDT AirDuo sent to pharmacy. Thanks. Addendum Note - Lauren Rollins RGonzaloN. - 10/24/2018 2:53 PM CDT Addended by: LAUREN ROLLINS on: 10/24/2018 02:53 PM Modules accepted: Orders Telephone Encounter - Lauren Rollins R.N. - 10/24/2018 2:49 PM CDT INFORMATION DISCUSSED Vandana from [facility] Called and states that Advair is not [...] PM CST Advair prescribed. Berto Aldrich Thanks. TER ELEMENT REPAIRER Telephone Encounter - Edith Corona R.N. - 10/17/2018 11:30 AM TOASTER ELEMENT REPAIRER Please advise on the requested alternative. TER ELEMENT REPAIRER Telephone Encounter - Felisha Dumont - 10/17/2018 9:42 AM CST Reason for Communication: [facility] called and stated the prescription for Breo Ellipta is not covered by patients insurance, the one that is covered is fluticasone salmeterol inhaler. Current Can Nursing/Provider leave a detailed message: Did the patient refuse triage through Nurse line? (for symptom based concerns) Action Needed: new prescription Name of Medication (if relevant): TER ELEMENT REPAIRER documented in this encounter Plan of Treatment Not on filedocumented as of this encounter Visit Diagnoses Not on filedocumented in this encounter Additional Health Concerns Assessment Noted Time PHQ-9 Depression Total Score: 15 10/11/2018 12:[address] documented as of this encounter Care Teams Commercial Management Accountant Relationship Specialty Start Date End Date Chandni Matos APRN, C.N.P., PCP - General Family Medicine 06/06/19 [place] [address] [place] [address] documented as of this encounter
--- OUTSIDE RECORDS SUMMARY | 2022-06-01 09:38 | XMS_ITS | Encounter Summary ---
:1995 Author Organization [facility] Address [address] [place] [address] Care Team Providers Name Role Phone Chandni Urbina APRN, C.N.P., D.N.P. Primary Care Provider Reason for Visit Auth/Cert Specialty Diagnoses / Procedures Referred By Contact Refer red To Contact Diagnoses Fracture Ankle Closed Initial Left Fracture Ankle Closed Initial Left [S82.892A] Procedures [place] CLSD TX DIST FIB WO MANIP OPEN REDUCTION INTERNAL FIXATION ANKLE Referral ID Status Reason Start Date Expiration Date Visits Requ ested Visits Authorized [id number] 1 1 Encounter Details Date Type Department Care Team Description 02/20/2019 Anesthesia Event [facility] Pavan De Souza APRN, EXPERIMENTAL PHYSICIST [address] [place] [address] [place] [address] Ricarda Melo M.D. [address] [place] [address] [place] [address] Anesthesia Record Procedure Summary Procedure Name Responsible Anesthesia Start Anesthesia Stop Time Anesthesiologist Time OPEN REDUCTION Pavan De Souza APRN, 02/20/19 1512 1627 INTERNAL FIXATION EXPERIMENTAL PHYSICIST ANKLE (Left: Ankle) Events Date Time Event [...] How often do you attend moravian or adventism Never 10/23/2020 services? 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 Risks/Benefits/Alternatives of Blood transfusion discussed with patient, including an opportunity toask questions and/or decline some or all transfusion therapies. The patient consented to the use of all blood products, as deemed medically necessary Approval to Proceed: approved for anesthesia documented in this encounter Miscellaneous Notes Addendum Note - Pavan De Souza APRN, CRNA - 02/22/2019 8:15 AM CDT Addendum created 02/22/19 0815 by Pavan De Souza APRN, CRNA Intraprocedure [...] procedure ar e in the results section. MO US GUIDE PLC NDL Routine 02/20/2019 3:36 PM Re sults for this CDT procedure are i n the results section. MO INJ ANES SCIATIC Routine 02/20/2019 3:36 PM [...] De Souza APRN, CRNA PROCEDURE/MINOR SURGICAL ORDERABLES MO INJ ANES SCIATIC NERVE, MO US GUIDE BRAYAN NDL, DAYA ANE NERVE BLOCK WITH ULTRASOUND (02/20/2019 3:36 [...] documented as of this encounter Care Teams Copy Lathe Operator Relationship Specialty Start Date End Date Chandni Urbina, TOBI, C.N.P., PCP - General Family Medicine 06/06/19 [place] [address] [place], [place] [address] documented as of this encounter
--- OUTSIDE RECORDS SUMMARY | 2022-06-01 09:38 | XMS_ITS | Encounter Summary ---
:1995 Author Organization [facility] Address [address] [place] [address] Care Team Providers Name Role Phone Chandni Urbina APRN, C.N.Mana, D.N.P. Primary Care Provider Encounter Details Date Type Department Care Team Description 03/27/2019 Clinical Communication Department of [facility] Chandni Urbina, Medicine, [place] [facility], C.N.P., Clinic, in [place] [address] [phone] Social History Tobacco Use Types Packs/Day Years [...] often do you attend oriental orthodox or episcopal Never 10/23/2020 services? 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 documented in this encounter Plan of Treatment Not on filedocumented as of this encounter Visit Diagnoses Not on filedocumented in this encounter Additional Health Concerns Assessment Noted Time PHQ-9 Depression Total Score: 10 11/08/2018 12:47 PM C DT documented as of this encounter Care Teams Can Tender Relationship Specialty Start Date End Date Chandni Urbina, TOBI, C.N.P., PCP - General Family Medicine 06/06/19 D.N.P. [address] [place] [address] documented as of this encounter
--- OUTSIDE RECORDS SUMMARY | 2022-06-01 09:38 | XMS_ITS | Encounter Summary ---
:1995 Author Organization [facility] Address [address] [place] [address] Care Team Providers Name Role Phone Chandni Urbina APRN C.N.P., D.N.P. Primary Care Provider Reason for Visit Reason Comments Pain Outpatient (Routine) - Closed Specialty Diagnoses / Procedures Referred By Contact Refer red To Contact Orthopedic Surgery Diagnoses Pain Ankle Left Edwige Lundberg APRN, [facility] C.N.P., D.N.P. [address] [place] [phone] Referral ID Status Reason Start Date Expiration Date Visits Requ ested Visits Authorized [id number] Closed 02/19/2019 02/19/2020 1 1 Encounter Details Date Type Department Care Team Description 03/06/2019 Office Visit Department of Orthopedic Edwige Lundberg, Pain Ankle Left Surgery in [facility] TOBI, C .N.P., D.N.P. [address] [address] [phone] Social History Tobacco Use Types Packs/Day Years [...] How often do you attend tenriism or druze Never 10/23/2020 services? Do you [...] the highest level of school Associate degree: [employer], 03/01/2019 you have completed or the highest technical, or vocational p chitra degree you have received? Sex Assigned at Date Recorded Female 08/12/2017 10:51 AM GUIDEMAN documented as of this encounter Progress Notes [...] documented as of this encounter Care Teams Action Installer Relationship Specialty Start Date End Date Chandni Urbina APRN, C.N.P., PCP - General Family Medicine 06/06/19 D.N.P. [address] [place] [address] documented as of this encounter
--- OUTSIDE RECORDS SUMMARY | 2022-06-01 09:38 | XMS_ITS | Encounter Summary ---
:1995 Author Organization [facility] Address [address] [place] [address] Care Team Providers Name Role Phone Chandni Urbina APRN C.N.PGonzalo, D.N.P. Primary Care Provider Reason for Visit Reason Comments Med Refill Encounter Details Date Type Department Care Team Description 09/26/2018 Refill Department of Family Medicine, Chandni Urbina APRN, Med Refill [facility], in [place] C .N.P., D.N.P. [address] [address] [place] [address] [phone] Social History Tobacco Use Types Packs/Day Years [...] How often do you attend lutheran or sabianist Never 10/23/2020 services? 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 Nurse Review: Pharmacy Communication Provider: Chandni Urbina APRN, C.N.P., D.N.P. Medication: Albuterol sulfate Strength: 2.5 mg/3mL soln Frequency: Take 3 mL by nebulization every 4 hours as needed for wheezing Pharmacy: [facility] Comment: BIOLOGY SCIENTIST documented in this encounter Plan of Treatment Not on filedocumented as of this encounter Visit Diagnoses Not on filedocumented in this encounter Additional Health Concerns Assessment Noted Time PHQ-9 Depression Total Score: 11 02/10/2018 4:00 PM CD T documented as of this encounter Care Teams Tractor Engine Mechanic Relationship Specialty Start Date End Date Chandni Urbina APRN, C.N.P., PCP - General Family Medicine 06/06/19 D.N.P. [address] [place] [address] documented as of this encounter
--- OUTSIDE RECORDS SUMMARY | 2022-06-01 09:38 | XMS_ITS | Encounter Summary ---
:1995 Author Organization [facility] Address [address] [place] [address] Care Team Providers Name Role Phone Chandni Urbina APRN, C.N.P., D.N.P. Primary Care Provider Reason for Visit Auth/Cert Specialty Diagnoses / Procedures Referred By Contact Refer red To Contact Diagnoses Fracture Ankle Closed Initial Left Fracture Ankle Closed Initial Left [S82.892A] Procedures [place] CLSD TX DIST FIB WO MANIP OPEN REDUCTION INTERNAL FIXATION ANKLE Referral ID Status Reason Start Date Expiration Date Visits Requ ested Visits Authorized [id number] 1 1 Encounter Details Date Type Department Care Team Description 02/20/[address] [facility] OR Bruno Spivey, OPEN REDUCTION INTERNAL [address] [place] [address] Richard FIXATION [place] [address] [place] [address] [place], [place] [phone] [address] (Wo rk) Social History Tobacco Use [...] How often do you attend anglican or rastafari Never 10/23/2020 services? 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 POST-OPERATIVE DIAGNOSIS Left ankle Church B fracture with syndesmotic disruption. PROCEDURE(S) Open reduction/internal fixation of left ankle fracture with syndesmotic fixation. SURGEON(S) Bruno Spivey M.D. ANESTHESIA TYPE Spinal anesthesia. FLOOR SPACE ALLOCATOR: Chandni Urbina APRN, C.N.P., D.N.P. I requested [...] Implant Name Type Inv. Item Serial No. Manager System Lot No. LRB No. Used Knotless TightRope Syndesmosis Repair Implant, Stainless Steel Ankle Implant Arthrex [id number] FTHRD LCK 4.0X16 - [id number] Hardware e.g. pins/screws/rods SCRW LCP ST FTHRD LCK 4.0X16 Depuy Synthes Left [address] FTHRD LCK 4.0X18 - [id number] Hardware e.g. pins/screws/rods SCRW LCP ST FTHRD LCK 4.0X18 Depuy Synthes Left 1 PLT FIB LCD 1/3 TUB 7H LCK 85 - [id number] Hardware e.g. pins/screws/rods PLT FIB LCD 1/3 TUB 7H LCK 85 Depuy Synthes Left [address] FTHRD 3.5X24 - [id number] Hardware e.g. pins/screws/rods SCRW DCP ST FTHRD 3.5X24 Depuy Synthes Left [address] FTHRD 3.5X10 - [id number] Hardware e.g. pins/screws/rods SCRW DCP ST FTHRD 3.5X10 Depuy Synthes Left [address] FTHRD 3.5X12 - S204.012 - [id number] Ankle Implant SCRW LCD ST FTHRD 3.5X12 [...] Role: * Bruno Spivey M.D. - Primary Pattern Grader Cutter: Chandni Urbina APRN, C.N.P., D.N.P. Anesthesia Type Regional Pre-operative Diagnosis * Fracture Ankle Closed Initial Left [N40.070M] Brief Operative Note Details Specimens None Drains None Estimated Blood Loss None Implants Implant Name Type Inv. Item Serial No. Manager System Lot No. LRB No. Used Knotless TightRope Syndesmosis Repair Implant, Stainless Steel Ankle Implant Arthrex [id number] FTHRD LCK 4.0X16 - [id number] Hardware e.g. pins/screws/rods SCRW LCP ST FTHRD LCK 4.0X16 Depuy Synthes Left [address] FTHRD LCK 4.0X18 - [id number] Hardware e.g. pins/screws/rods SCRW LCP ST FTHRD LCK 4.0X18 Depuy Synthes Left 1 PLT FIB LCD 1/3 TUB 7H LCK 85 - [id number] Hardware e.g. pins/screws/rods PLT FIB LCD 1/3 TUB 7H LCK 85 Depuy Synthes Left [address] FTHRD 3.5X24 - [id number] Hardware e.g. pins/screws/rods SCRW DCP ST FTHRD 3.5X24 Depuy Synthes Left [address] FTHRD 3.5X10 - [id number] Hardware e.g. pins/screws/rods SCRW DCP ST FTHRD 3.5X10 Depuy Synthes Left [address] FTHRD 3.5X12 - S204.012 - [id number] Ankle Implant SCRW LCD ST FTHRD 3.5X12 [...] Address City/State/ZIP Code Phon e Number [address] [facility] documented in this encounter Visit Diagnoses Diagnosis Fracture Ankle Closed Initial Left - Deirdre mary lou Fracture Ankle Closed Initial Left Fracture Ankle Closed Initial Left documented in [...] 1534 (Given - Provider: Pavan De Souza, FINANCIAL SERVICES ASSOCIATE, ESE TEACHER) 600 mg (rounded from 825 mg = 7.5 mg/kg ? 110 kg), intravenous, at 100 mL/hr, Administer over 30 Minutes, Once, On e 02/20/19 at 1345, For 1 dose, Intra-Op, Preoperatively within 1 hour prior to surg ic al incision premix bag, Indications: Prophylaxis, surgical Continuous Medication Order 02/18/2019 02/19/2019 02/20/2019 lactated ringers 1415 (New Bag - Provider: Kamla Ritter R.N.)1453 (Rate/Dose Verify - Provider: Pavan De Souza APRN, ESE TEACHER)1626 (Anesthesia Volume Adjustment - Provider: Pavan De [...] documented as of this encounter Care Teams Jigsawyer Relationship Specialty Start Date End Date Chandni Urbina APRN, C.N.P., PCP - General Family Medicine 06/06/19 D.N.P. [address] [place] [address] documented as of this encounter
--- OUTSIDE RECORDS SUMMARY | 2022-06-01 09:38 | XMS_ITS | Encounter Summary ---
:1995 Author Organization [facility] Address [address] [place] [address] Care Team Providers Name Role Phone Chandni Urbina APRN C.N.PGonzalo, D.N.P. Primary Care Provider Reason for Referral Outpatient (Routine) - Closed Specialty Diagnoses / Procedures Referred By Contact Refer red To Contact Orthopedic Surgery Diagnoses Follow Up Examination Postoperative Visit Cellulitis Leg Left Chandni Urbina, [facility] TOBI C.N.P., D.N.P. [address] [place] [address] Referral ID Status Reason Start Date Expiration Date Visits Requ ested Visits Authorized [id number] Closed 03/26/2019 03/25/2020 1 1 Encounter Details Date Type Department Care Team Description 03/26/2019 Office Visit Department of Ricki Corona M.D. [address] [place] [address] Follow Up Examination Postoperative Visi t (Primary Dx); Orthopedic Surgery in Chandni Urbina APRN C.N.P., D.N.P. [address] [place] [phone] Cellulitis Leg Left Boby Zaragoza [address] [place] [phone] Social History Tobacco Use Types Packs/Day Years [...] How often do you attend holiness or taoist Never 10/23/2020 services? 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 She was encouraged to continue iikd-zvr-oqgqkhm analgesics, ice, elevation and rest. She will [...] Name Type Priority Associated Diagnoses Order S [facility] Orthopedic Surgery Outpatient Referral Routine [...] documented as of this encounter Care Teams Subway Repair Supervisor Relationship Specialty Start Date End Date Chandni Urbina APRN, C.N.P., PCP - General Family Medicine 06/06/19 D.N.P. [address] [place] [phone] documented as of this encounter
--- OUTSIDE RECORDS SUMMARY | 2022-06-01 09:38 | XMS_ITS | Encounter Summary ---
:1995 Author Organization [facility] Address [address] [place] [address] Care Team Providers Name Role Phone Chandni Urbina APRN C.N.Mana, D.N.P. Primary Care Provider Encounter Details Date Type Department Care Team Description 10/11/2018 Hospital Encounter Department of Dorian Khalil, Anxiety Generalized Laboratory Medicine M.DGonzalo Disorder and Pathology, [address] [place] [address], in [place], [place] [address] [place] [address] [place], [place] (Work) [phone] Social History Tobacco Use Types Packs/Day Years [...] How often do you attend druze or episcopalian Never 10/23/2020 services? 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 CBC WITH Routine 10/11/2018 2:14 PM Anxiety Generalized Re sults for this DIFFERENTIAL, B DISPATCHER REFINERY Disorder procedure ar e in the results section. documented in this encounter Results CBC with Differential (10/11/2018 2:14 PM DISPATCHER REFINERY) [facility] Method Time Signature Hemoglobin 13.5 11.6 - 10/11/2018 [facility] 15.0 g/dL 2:36 PM DISPATCHER REFINERY LABORATORIES - [facility] Hematocrit 40.6 35.5 - 10/11/2018 [facility] 44.9 % 2:36 PM DISPATCHER REFINERY LABORATORIES - [facility] Erythrocytes 4.51 3.92 - 10/11/2018 [facility] 5.13 2:36 PM DISPATCHER REFINERY LABORATORIES - x10(12)/L [facility] MCV 90.0 78.2 - 10/11/2018 [facility] 97.9 fL 2:36 PM DISPATCHER REFINERY LABORATORIES - [facility] RBC Distrib Width 12.4 12.2 - 10/11/2018 [facility] 16.1 % 2:36 PM DISPATCHER REFINERY LABORATORIES - [facility] Platelet Count 266 157 - 371 10/11/2018 [facility] x10(9)/L 2:36 PM DISPATCHER REFINERY LABORATORIES - [facility] Leukocytes 8.8 3.4 - 9.6 10/11/2018 [facility] x10(9)/L 2:36 PM DISPATCHER REFINERY LABORATORIES - [facility] Neutrophils 5.68 1.56 - 10/11/2018 [facility] 6.45 2:36 PM DISPATCHER REFINERY LABORATORIES - x10(9)/L [facility] Lymphocytes 2.44 0.95 - 10/11/2018 [facility] 3.07 2:36 PM DISPATCHER REFINERY LABORATORIES - x10(9)/L [facility] Monocytes 0.49 0.26 - 10/11/2018 [facility] 0.81 2:36 PM DISPATCHER REFINERY LABORATORIES - x10(9)/L [facility] Eosinophils 0.15 0.03 - 10/11/2018 [facility] 0.48 2:36 PM DISPATCHER REFINERY LABORATORIES - x10(9)/L [facility] Basophils 0.04 0.01 - 10/11/2018 [facility] 0.08 2:36 PM DISPATCHER REFINERY LABORATORIES - x10(9)/L [facility] Specimen Anatomical Collection Method Collection Time Receive d Time (Source) Location / / Volume Laterality Blood (Blood, 10/11/2018 2:14 PM 10/11/19 19 2:32 Venous) DISPATCHER REFINERY PM DISPATCHER REFINERY Dorian Khalil M.D. LAB BLOOD ADD-ON Performing Organization Address City/[facility]/ZIP Code Phon e Number [facility] LABORATORIES - [address] [place] [address] [facility] Thyroid Function [place] (10/11/2018 2:14 PM DISPATCHER REFINERY) athologist Signature TSH, Sensitive 3.7 0.3 - 4.2 10/11/2018 [facility] mIU/L 3:26 PM DISPATCHER REFINERY LABORATORIES - [facility] Specimen Anatomical Collection Method Collection Time Receive d Time (Source) Location / / Volume Laterality Blood (Blood, 10/11/2018 2:14 PM 10/11/19 19 2:32 Venous) DISPATCHER REFINERY PM DISPATCHER REFINERY Dorian Khalil M.D. LAB BLOOD ADD-ON Performing Organization Address City/[facility] Phon e Number [facility]ORATORIES - [address] documented in this encounter Visit Diagnoses Diagnosis Anxiety Generalized Disorder documented in this encounter Additional Health Concerns Assessment Noted Time PHQ-9 Depression Total Score: 15 10/11/2018 12:[address] documented as of this encounter Care Teams Marine Erector Relationship Specialty Start Date End Date Chandni Urbina APRN, C.N.P., PCP - General Family Medicine 06/06/19 D.N.P. [address] [place] [phone] documented as of this encounter
--- OUTSIDE RECORDS SUMMARY | 2022-06-01 09:38 | XMS_ITS | Encounter Summary ---
:1995 Author Organization [facility] Address [address] [place] [address] Care Team Providers Name Role Phone Chandni Urbina APRN, C.N.P., D.N.P. Primary Care Provider Encounter Details Date Type Department Care Team Description 03/19/2019 Orders Only Department of Orthopedic Chandni Urbina APRN, Surgery in [place], C.N.P., D.N .P. [address] [address] [place] [address] [phone] Social History Tobacco Use Types Packs/Day Years [...] How often do you attend moravian or congregational Never 10/23/2020 services? 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 [address] [place] [phone] documented as of this encounter
--- OUTSIDE RECORDS SUMMARY | 2022-06-01 09:38 | XMS_ITS | Encounter Summary ---
:1995 Author Organization [facility] Address [address] [place] [address] Care Team Providers Name Role Phone Chandni Urbina APRN C.N.Rodrigo., D.N.P. Primary Care Provider Reason for Visit Reason Comments Sore Throat For a week now, states it is effecting her breathing/asthma Appointment Request (Routine) - Closed Specialty Diagnoses / Procedures Referred By Contact Refer red To Contact Family Medicine Referral ID Status Reason Start Date Expiration Date Visits Requ ested Visits Authorized [id number] Closed 01/23/2019 01/23/2020 1 Encounter Details Date Type Department Care Team Description 01/23/2019 Office Visit Department of Family Ashleigh Talley ma Mild Intermittent With Acute Exacerbation (HCC) (Primary Dx); Medicine, Hakeem Ludwig PMavis Sore Throat [facility] [id number] [place] [address] [place], [place] (Work) [phone] Social History Tobacco Use [...] How often do you attend hindu or lutheran Never 10/23/2020 services? 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 [address] [place] [address] documented as of this encounter
--- OUTSIDE RECORDS SUMMARY | 2022-06-01 09:38 | XMS_ITS | Encounter Summary ---
:1995 Author Organization [facility] Address [address] [place] [address] Care Team Providers Name Role Phone Chandni Urbina APRN C.N.P., D.N.P. Primary Care Provider Reason for Referral Outpatient (Routine) - Closed Specialty Diagnoses / Procedures Referred By Contact Refer red To Contact Orthopedic Surgery Diagnoses Fracture Ankle Closed Initial Left Chandni Urbina, [facility] TOBI, C.N.P., D.N.P. [address] [place] [address] Referral ID Status Reason Start Date Expiration Date Visits Requ ested Visits Authorized [id number] Closed 02/20/2019 02/20/2020 1 1 Scheduling Instructions Ordered images/tests are associated with this appointment. Reason for Visit Auth/Cert Specialty Diagnoses / Procedures Referred By Contact Refer red To Contact Diagnoses Fracture Ankle Closed Initial Left Fracture Ankle Closed Initial Left [S82.892A] Procedures [place] CLSD TX DIST FIB WO MANIP OPEN REDUCTION INTERNAL FIXATION ANKLE Referral ID Status Reason Start Date Expiration Date Visits Requ ested Visits Authorized [id number] 1 1 Encounter Details Date Type Department Care Team Description 02/20/[address] [facility] OR Bruno Spivey Fracture Ankle [id number] [facility] Jenn Baker M.D. Closed Initial Left BLVD [address] (Primary Dx) [place]UL[place] [address] Social History Tobacco [...] How often do you attend jain or jehovah's witness Never 10/23/2020 services? 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 POST-OPERATIVE DIAGNOSIS Left ankle Church B fracture with syndesmotic disruption. PROCEDURE(S) Open reduction/internal fixation of left ankle fracture with syndesmotic fixation. SURGEON(S) Bruno Spivey M.D. ANESTHESIA TYPE Spinal anesthesia. DISPLAY DECORATOR: Chandni Urbina APRN, C.N.P., D.N.P. I requested [...] Implant Name Type Inv. Item Serial No. Road Inspector Lot No. LRB No. Used Knotless TightRope Syndesmosis Repair Implant, Stainless Steel Ankle Implant Arthrex [id number] FTHRD LCK 4.0X16 - [id number] Hardware e.g. pins/screws/rods SCRW LCP ST FTHRD LCK 4.0X16 Depuy Synthes Left [address] FTHRD LCK 4.0X18 - [id number] Hardware e.g. pins/screws/rods SCRW LCP ST FTHRD LCK 4.0X18 Depuy Synthes Left 1 PLT FIB LCD 1/3 TUB 7H LCK 85 - [id number] Hardware e.g. pins/screws/rods PLT FIB LCD 1/3 TUB 7H LCK 85 Depuy Synthes Left [address] FTHRD 3.5X24 - [id number] Hardware e.g. pins/screws/rods SCRW DCP ST FTHRD 3.5X24 Depuy Synthes Left [address] FTHRD 3.5X10 - [id number] Hardware e.g. pins/screws/rods SCRW DCP ST FTHRD 3.5X10 Depuy Synthes Left [address] FTHRD 3.5X12 - S204.012 - [id number] Ankle Implant SCRW LCD ST FTHRD 3.5X12 [...] Role: * Bruno Spivey M.D. - Primary City Mail Carrier: Chandni Urbina, TOBI, C.N.P., D.N.P. Anesthesia Type Regional Pre-operative Diagnosis * Fracture Ankle Closed Initial Left [Y43.537I] Brief Operative Note Details Specimens None Drains None Estimated Blood Loss None Implants Implant Name Type Inv. Item Serial No. Road Inspector Lot No. LRB No. Used Knotless TightRope Syndesmosis Repair Implant, Stainless Steel Ankle Implant Arthrex [id number] [address] FTHRD LCK 4.0X16 - [id number] Hardware e.g. pins/screws/rods SCRW LCP ST FTHRD LCK 4.0X16 Depuy Synthes Left [address] FTHRD LCK 4.0X18 - [id number] Hardware e.g. pins/screws/rods SCRW LCP ST FTHRD LCK 4.0X18 Depuy Synthes Left 1 PLT FIB LCD 1/3 TUB 7H LCK 85 - [id number] Hardware e.g. pins/screws/rods PLT FIB LCD 1/3 TUB 7H LCK 85 Depuy Synthes Left [address] FTHRD 3.5X24 - [id number] Hardware e.g. pins/screws/rods SCRW DCP ST FTHRD 3.5X24 Depuy Synthes Left [address] FTHRD 3.5X10 - [id number] Hardware e.g. pins/screws/rods SCRW DCP ST FTHRD 3.5X10 Depuy Synthes Left [address] FTHRD 3.5X12 - S204.012 - [id number] Ankle Implant SCRW LCD ST FTHRD 3.5X12 [...] Address City/State/ZIP Code Phon e Number [address] [facility] documented in this encounter Visit [...] (Given - Provider: Pavan De Souza APRN, AUTOMOTIVE ENGINEERING TECHNICIAN) 600 mg (rounded from 825 mg = [...] Verify - Provider: Pavan De Souza APRN, AUTOMOTIVE ENGINEERING TECHNICIAN)1626 (Anesthesia Volume Adjustment - Provider: Pavan De [...] documented as of this encounter Care Teams Flight Engineer Instructor Relationship Specialty Start Date End Date Chandni Urbina, TOBI, C.N.P., PCP - General Family Medicine 06/06/19 D.N.P. [address] [place] [address] documented as of this encounter
--- OUTSIDE RECORDS SUMMARY | 2022-06-01 09:38 | XMS_ITS | Encounter Summary ---
:1995 Author Organization [facility] Address [address] [place] [address] Care Team Providers Name Role Phone Chandni Urbina APRN C.N.P., D.N.P. Primary Care Provider Encounter Details Date Type Department Care Team Description 03/26/2019 Hospital Encounter Department of Chandni Urbina Follow Up Examination Radiology in James Heller APRN, Postoperati ve Visit [place], [place] C.N.P., D.N.P. [address] [facility] [address] [place] [address] [phone] Social History Tobacco Use Types Packs/Day Years [...] How often do you attend pentecostalism or lutheran Never 10/23/2020 services? 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 escitalopram (LEXAPRO) 1/ tab po q AM X 5 100 [...] documented as of this encounter Care Teams Muck Miner Blasting Relationship Specialty Start Date End Date Chandni Urbina APRN, C.N.P., PCP - General Family Medicine 06/06/19 D.N.P. [address] [place] [address] documented as of this encounter
--- OUTSIDE RECORDS SUMMARY | 2022-06-01 09:39 | XMS_ITS | Encounter Summary ---
:1995 Author Organization [facility] Address [address] [place] [address] Care Team Providers Name Role Phone Holley Saucedo APRN C.N.P. Primary Care Provider [phone] Encounter Details Date Type Department Care Team Description 11/03/2017 Orders Only Department of Argelia Vogel Pain Back (Primary Dx) Orthopedic Surgery in [place], C.M.[address] [address] [phone] Social History Tobacco Use Types Packs/Day Years [...] How often do you attend congregation or advent Never 10/23/2020 services? 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 PCP - General 01/27/17 12/09/17 documented as of this encounter
--- OUTSIDE RECORDS SUMMARY | 2022-06-01 09:39 | XMS_ITS | Encounter Summary ---
:1995 Author Organization [facility] Address [address] [place] [address] Care Team Providers Name Role Phone Holley Saucedo APRN, C.N.P. Primary Care Provider [phone] Encounter Details Date Type Department Care Team Description 11/21/2017 Orders Only [facility], Brandon Marcum M .D. [address] [address] Social History Tobacco Use [...] How often do you attend faith or cheondoism Never 10/23/2020 services? 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 PCP - General 01/27/17 12/09/17 documented as of this encounter
--- OUTSIDE RECORDS SUMMARY | 2022-06-01 09:39 | XMS_ITS | Encounter Summary ---
:1995 Author Organization [facility] Address [address] [place] [address] Care Team Providers Name Role Phone Chandni Urbina APRN, C.N.P., D.N.P. Primary Care Provider Reason for Visit Reason Comments Contraception Recheck to renew Appointment Request (Routine) - Closed Specialty Diagnoses / Procedures Referred By Contact Refer red To Contact Obstetrics and Gynecology Referral ID Status Reason Start Date Expiration Date Visits Requ ested Visits Authorized [id number] Closed 03/06/2018 03/06/2019 1 Encounter Details Date Type Department Care Team Description 03/08/2018 Office Visit Department of Noy Loya, Screening For Venereal Disease (Primary Dx); Obstetrics and DAMAGE ASSESSOR, CNM, Gynecological Examination Normal Gynecology in [facility] M.S.N., B.S.N.[place], [place] R.N. [address] [place] [address] [place], [place] [address] [phone] Social History Tobacco Use Types Packs/Day Years [...] How often do you attend jainism or worship Never 10/23/2020 services? 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 Does not want depo. DISK SANDER HISTORY Last pap 2015 and was nl [...] Results Chlamydia culture (03/08/2018 3:07 PM CDT) [facility] gist Method Time Signature Source VAGINA 03/09/2018 [facility] 2:05 PM CDT [facility] Chlamydia Negative Negative 03/09/2018 [facility] trachomatis 2:05 PM CDT [facility] Comment: ----ADDITIONAL INFORMATION---- This report is [...] Organization Address City/State/ZIP Code Phon e Number [facility] [address] [facility] [address] [facility] documented in this encounter Visit Diagnoses Diagnosis Screening For Venereal Disease - Primary Gynecological Examination Normal documented in this encounter Additional Health Concerns Assessment Noted Time PHQ-9 Depression Total Score: 11 02/10/2018 4:00 PM CD T documented as of this encounter Care Teams Learning Support Assistant Relationship Specialty Start Date End Date Chandni Urbina APRN, C.N.P., PCP - General Family Medicine 06/06/19 D.N.P. [address] [place] [address] documented as of this encounter
--- OUTSIDE RECORDS SUMMARY | 2022-06-01 09:39 | XMS_ITS | Encounter Summary ---
:1995 Author Organization [facility] Address [address] [place] [address] Care Team Providers Name Role Phone Chandni Urbina APRN, C.N.Rodrigo., D.N.P. Primary Care Provider Encounter Details Date Type Department Care Team Description 12/13/2017 Orders Only Department of Pain Charisma Castellon, Medicine in [facility] [address] [place] [address] [phone] Social History Tobacco Use Types Packs/Day Years [...] How often do you attend presybeterian or synagogue Never 10/23/2020 services? 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 [address] [place] [address] documented as of this encounter
--- OUTSIDE RECORDS SUMMARY | 2022-06-01 09:39 | XMS_ITS | Encounter Summary ---
:1995 Author Organization [facility] Address [address] [place] [address] Care Team Providers Name Role Phone Holley Saucedo APRN, C.N.P. Primary Care Provider [phone] Reason for Visit Reason Comments Communication ACT updated-within guideline s Encounter Details Date Type Department Care Team Description 11/03/2017 Clinical Department of Eros Zurita (ACT Communication Family MedicineRosi updated-within [place] [address] [facility]) [facility], in [place], [place] [address] [place] [address] [facility] (Work) [place] [address] Social History Tobacco Use Types [...] How often do you attend congregation or congregation Never 10/23/2020 services? 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 PCP - General 01/27/17 12/09/17 documented as of this encounter
--- OUTSIDE RECORDS SUMMARY | 2022-06-01 09:39 | XMS_ITS | Encounter Summary ---
:1995 Author Organization [facility] Address [address] [place] [address] Care Team Providers Name Role Phone Chandni Urbina APRN, C.N.P., D.N.P. Primary Care Provider Reason for Visit Appointment Request (Routine) - Closed Specialty Diagnoses / Procedures Referred By Contact Refer red To Contact Family Medicine Referral ID Status Reason Start Date Expiration Date Visits Requ ested Visits Authorized [id number] Closed 06/13/2018 06/13/2019 1 Encounter Details Date Type Department Care Team Description 06/13/2018 Immunization Department of Family Chandni Urbina, munization Only Medicine, Hakeem BRITTON, C.N.P., (Primary D x) [facility], in D.N.P. [address] [address] [place], [place] [phone] [address] (Work) [phone] Social History Tobacco Use Types Packs/Day Years [...] How often do you attend buddhism or nondenominational Never 10/23/2020 services? 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 [address] [place] [address] documented as of this encounter
--- OUTSIDE RECORDS SUMMARY | 2022-06-01 09:39 | XMS_ITS | Encounter Summary ---
:[address] [facility] Address [address] [place] [address] Care Team Providers Name Role Phone Holley Saucedo APRN C.N.P. Primary Care Provider [phone] Reason for Referral MRI/CAT/PET Scan (Routine) - Closed Specialty Diagnoses / Procedures Referred By Contact Refer red To Contact Radiology Diagnoses Pain Low Back Unspecified Charisma Castellon [facility] [place] [facility] Procedures MR Lumbar Spine without IV Contrast P.A.-C. [address] [place] [address] Referral ID Status Reason Start Date Expiration Date Visits Requ ested Visits Authorized Closed 10/27/2017 04/25/2018 1 1 Reason for Visit MRI/CAT/PET Scan (Routine) - Closed Specialty Diagnoses / Procedures Referred By Contact Refer red To Contact Radiology Diagnoses Pain Low Back Unspecified Charisma Castellon [facility] [place] [facility] Procedures MR Lumbar Spine without IV Contrast P.A.-C. [address] [place] [address] Referral ID Status Reason Start Date Expiration Date Visits Requ ested Visits Authorized Closed 10/27/2017 04/25/2018 1 1 Encounter Details Date Type Department Care Team Description 10/27/2017 Hospital Encounter Department of Charisma Castellon in Low Back Radiology in [place] P.A.-C. [address] [place] [phone] [phone] Social History Tobacco Use Types Packs/Day Years [...] How often do you attend moravian or sikhism Never 10/23/2020 services? 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 Charisma Castellon P.A.-C. IMG MRI PROCEDURES documented in this encounter Visit Diagnoses Diagnosis Pain Low Back Unspecified documented in this encounter Additional Health Concerns Assessment Noted Time PHQ-9 Depression Total Score: 9 08/30/2017 4:00 PM CHECKER DUMP GROUNDS documented as of this encounter Care Teams Director Nursing Service Relationship Specialty Start Date End Date Holley Saucedo APRN, C.N.P. PCP - General 01/27/17 12/09/17 documented as of this encounter
--- OUTSIDE RECORDS SUMMARY | 2022-06-01 09:39 | XMS_ITS | Encounter Summary ---
:1995 Author Organization [facility] Address [address] [place] [address] Care Team Providers Name Role Phone Chandni Urbina APRN C.N.P., D.N.P. Primary Care Provider Encounter Details Date Type Department Care Team Description 12/19/2017 Orders Only Department of Family Chandni Urbina AP RN, Medicine, [place] C.N.P., D .N.P. Clinic, in [address] [address] [place] [address] [place], [place] [address] [phone] Social History Tobacco Use Types Packs/Day Years [...] How often do you attend caodaism or rastafarian Never 10/23/2020 services? 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 [address] [place] [address] documented as of this encounter
--- OUTSIDE RECORDS SUMMARY | 2022-06-01 09:39 | XMS_ITS | Encounter Summary ---
:1995 Author Organization [facility] Address [address] [place] [address] Care Team Providers Name Role Phone Holley Saucedo APRN, C.N.P. Primary Care Provider [phone] Encounter Details Date Type Department Care Team Description 11/15/2017 Orders Only [facility] Holley Saucedo, Medicine, [place], C.N .P. Clinic, in [id number] [place] [address] [place], [place] [address] [phone] Social History Tobacco Use Types Packs/Day Years [...] How often do you attend sikh or latter-day Never 10/23/2020 services? 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 PCP - General 01/27/17 12/09/17 documented as of this encounter
--- OUTSIDE RECORDS SUMMARY | 2022-06-01 09:39 | XMS_ITS | Encounter Summary ---
:1995 Author Organization [facility] Address [address] [place] [address] Care Team Providers Name Role Phone Chandni Urbina APRN, C.N.P., D.N.P. Primary Care Provider Encounter Details Date Type Department Care Team Description 09/15/2018 Orders Only [facility] Pharmacy - Chandni Bhat, TBOI, [address] C.N.P., D.N.P. BHAVIN PATEL [phone] [place] [address] [place], [place] [address] (Wo rk) Social History [...] How often do you attend baptist or temple Never 10/23/2020 services? 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 [address] [place] [address] documented as of this encounter
--- OUTSIDE RECORDS SUMMARY | 2022-06-01 09:39 | XMS_ITS | Encounter Summary ---
:1995 Author Organization [facility] Address [address] [place] [address] Care Team Providers Name Role Phone Holley Saucedo APRN C.NGonzaloPGonzalo Primary Care Provider [phone] Reason for Referral MRI/CAT/PET Scan (Routine) - Closed Specialty Diagnoses / Procedures Referred By Contact Refer red To Contact Radiology Diagnoses Pain Low Back Unspecified Charisma Castellon, [facility] Region Procedures MR Lumbar Spine without IV Contrast P.AGonzalo-C. [address] [place] [phone] Referral ID Status Reason Start Date Expiration Date Visits Requ ested Visits Authorized [id number] Closed 10/27/2017 04/25/2018 1 1 Reason for Visit Reason Comments Pain Encounter Details Date Type Department Care Team Description 10/27/2017 Office Visit Department of Charisma Castellon Pain Hip Left (Primary Dx); Orthopedic Surgery in [place] Pain Low Back [place], [place] [address] [facility] 701 [place], [place] [phone] Social History Tobacco Use Types Packs/Day Years [...] How often do you attend jain or buddhist Never 10/23/2020 services? 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 - 10/27/2017 12:00 AM CDT SUBJECTIVE REASON FOR CONSULT Low back pain and left hip pain. 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 She began having what she refers [...] dysfunction. She has tried physical therapy in [place] for the past 2 months, also anti-inflammatories. ALLERGIES/CONTRAINDICATIONS Cefexime. MEDICAL HISTORY As noted in the EMR. 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 She is a nonsmoker but had smoked [...] procedure and that was sent to the [place] outpatient pharmacy per her request. Physical therapy ordered for her lumbar spine. She should work on a back strengthening stabilizationprogram and I think she should do this long-term, especially if she is going to work as a CYBER LEGAL ADVISOR. Will await MRI results when considering return [...] counseling and coordination of care. Job ID: [id number]/[id number] documented in this encounter Miscellaneous Notes Telephone Encounter - Charisma Castellon P.A.-C. - 10/27/2017 12:00 AM CDT I have contacted the patient with her MRI results which she was able to review on patient portal. Patient has had ongoing back pain. She rates it 5 to 6/10 at baseline for her most of the time and she has been off work as a CYBER LEGAL ADVISOR since June. She was initially being followed [...] she does go to school for her FACER OPERATOR degree. 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 Job ID: [id number] documented in this encounter Plan of Treatment [...] or soft tissue abnormality. IMPRESSION: Negative. Charisma Morales.-C. IMG DIAGNOSTIC IMAGING PRO CEDURES DX Lumbar [...] Depression Total Score: 9 08/30/2017 4:00 PM CLERICAL STOCK INSPECTOR documented as of this encounter Care Teams Duck Bill Operator Relationship Specialty Start Date End Date Holley Saucedo APRN, C.N.P. PCP - General 01/27/17 12/09/17 documented as of this encounter
--- OUTSIDE RECORDS SUMMARY | 2022-06-01 09:39 | XMS_ITS | Encounter Summary ---
:1995 Author Organization [facility] Address [address] [place] [address] Care Team Providers Name Role Phone Holley Saucedo APRN, C.NGonzaloPGonzalo Primary Care Provider [phone] Encounter Details Date Type Department Care Team Description 11/03/2017 Orders Only Department of Charisma Castellon Pain Low Back Orthopedic Surgery in [place], P.AGonzalo-C. (Primary Dx) [address] [phone] Social History Tobacco Use Types Packs/Day Years [...] often do you attend oriental orthodox or zoroastrianism Never 10/23/2020 services? 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 PCP - General 01/27/17 12/09/17 documented as of this encounter
--- OUTSIDE RECORDS SUMMARY | 2022-06-01 09:39 | XMS_ITS | Encounter Summary ---
:[address] [facility] Address [address] [place] [address] Care Team Providers Name Role Phone Chandni Urbina APRN, C.N.P., D.N.P. Primary Care Provider Encounter Details Date Type Department Care Team Description 08/23/2018 Orders Only [facility] Pharmacy - Chandni Bhat, TOBI, [address] C.N.P., D.N.P. BHAVIN PATEL [phone] [place] [address] [place], [place] [phone] (Wo rk) Social History [...] How often do you attend restorationist or temple Never 10/23/2020 services? 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 [address] [place] [address] documented as of this encounter
--- OUTSIDE RECORDS SUMMARY | 2022-06-01 09:39 | XMS_ITS | Encounter Summary ---
:1995 Author Organization [facility] Address [address] [place] [address] Care Team Providers Name Role Phone Holley Saucedo APRN, C.N.P. Primary Care Provider [phone] Reason for Visit Reason Comments Communication Encounter Details Date Type Department Care Team Description 11/03/2017 Clinical Communication Department of Samuel Stubbs Communication Medicine, [facility], in [address] [facility] [address] [place] [address] [place], [place] (Work) [phone] Social History Tobacco Use [...] How often do you attend yarsanism or amish Never 10/23/2020 services? 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 PCP - General 01/27/17 12/09/17 documented as of this encounter
--- OUTSIDE RECORDS SUMMARY | 2022-06-01 09:39 | XMS_ITS | Encounter Summary ---
:1995 Author Organization [facility] Address [address] [place] [address] Care Team Providers Name Role Phone Holley Saucedo APRN C.N.P. Primary Care Provider [phone] Reason for Visit Reason Comments Communication Encounter Details Date Type Department Care Team Description 11/03/2017 Clinical Communication Department of Mani Castellon Communication Orthopedic Surgery J, PGonzaloADerrek in [address] [address] [place], [place] [phone] [address] (Work) [phone] Social History Tobacco Use Types Packs/Day Years [...] How often do you attend catholic or oriental orthodox Never 10/23/2020 services? 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 PCP - General 01/27/17 12/09/17 documented as of this encounter
--- OUTSIDE RECORDS SUMMARY | 2022-06-01 09:39 | XMS_ITS | Encounter Summary ---
:1995 Author Organization [facility] Address [address] [place] [address] Care Team Providers Name Role Phone Chandni Urbina APRN, C.N.Mana, D.N.P. Primary Care Provider Reason for Visit Reason Comments Hip Pain Follow up left hip pain. Brittny verduzco work restrictions reviewed. Appointment Request (Routine) - Closed Specialty Diagnoses / Procedures Referred By Contact Refer red To Contact Family Medicine Referral ID Status Reason Start Date Expiration Date Visits Requ ested Visits Authorized [id number] Closed 01/05/2018 01/05/2019 1 Encounter Details Date Type Department Care Team Description 01/06/2018 Office Visit Department of Family Chandni Urbina He rniated Disc Lumbar (Primary Dx); Medicine, [place] TOBI C.N.PGonzalo, Pain Low Back Clinic, in [place] [address] [phone] Social History Tobacco Use Types Packs/Day Years [...] How often do you attend mandaen or catholic Never 10/23/2020 services? 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 Adkins for ongoing low back pain related to her herniated disc. She plans to see him back in the clinic after her scheduled EMG on03/01/18. She last saw Dr. Adkins on 12/23/17. She has been doing physical therapy, OTC medication management, ice/heat, gentle stretching, and rest. 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 She also picks up in Dietary here in the [facility]. She would like to return to work. She believes that she'll be able to work downstairs for a full 8 hours, but probably not in group home dueto the heavy lifting required. She is [...] - She is able to work with [facility] time clerk, without restrictions. She is unable to work at [place] [employer] until further notice and guidance from Pain [...] documented as of this encounter Care Teams Surface Supervisor Relationship Specialty Start Date End Date Chandni Urbina APRN, C.N.P., PCP - General Family Medicine 06/06/19 D.N.P. [address] [place] [phone] documented as of this encounter
--- OUTSIDE RECORDS SUMMARY | 2022-06-01 09:39 | XMS_ITS | Encounter Summary ---
:1995 Author Organization [facility] Address [address] [place] [address] Care Team Providers Name Role Phone Chandni Urbina APRN C.N.Rodrigo., D.N.P. Primary Care Provider Reason for Visit Reason Comments Communication Encounter Details Date Type Department Care Team Description 11/21/2017 Clinical Department of Ravinder, Communication Communication Gastroenterology in [place], [place] P.A.-C. [address] [facility] [address] [place] [address] [place], [place] [phone] [address] Social History Tobacco Use Types Packs/Day [...] How often do you attend druze or samaritan Never 10/23/2020 services? 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 Adkins. Patient can be reached at [phone] with any questions, thank you. documented in this encounter Plan of Treatment Not on filedocumented as of this encounter Visit Diagnoses Not on filedocumented in this encounter Additional Health Concerns Assessment Noted Time PHQ-9 Depression Total Score: 10 11/03/2017 4:00 PM CD T documented as of this encounter Care Teams Lead Oxide Mill Tender Relationship Specialty Start Date End Date Chandni Urbina, TOBI, C.N.P., PCP - General Family Medicine 06/06/19 D.N.P. [address] [place] [address] documented as of this encounter
--- OUTSIDE RECORDS SUMMARY | 2022-06-01 09:39 | XMS_ITS | Encounter Summary ---
:1995 Author Organization [facility] Address [address] [place] [address] Care Team Providers Name Role Phone Chandni Urbina APRN, C.N.P., D.N.P. Primary Care Provider Encounter Details Date Type Department Care Team Description 09/01/2018 Orders Only [facility] Pharmacy - Chandni Bhat, TOBI, [address] C.N.P., D.N.P. BHAVIN PATEL [phone] [place] [address] [place], [place] [phone] (Wo rk) Social History [...] How often do you attend restorationist or sikhism Never 10/23/2020 services? 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 [address] [place] [address] documented as of this encounter
--- OUTSIDE RECORDS SUMMARY | 2022-06-01 09:39 | XMS_ITS | Encounter Summary ---
:1995 Author Organization [facility] Address [address] [place] [address] Care Team Providers Name Role Phone Chandni Urbina APRN, C.N.P., D.N.P. Primary Care Provider Reason for Referral Behavioral Health (Routine) - Closed Specialty Diagnoses / Procedures Referred By Contact Refer red To Contact Psychiatry / Psychiatry Diagnoses Bipolar II Disorder (HCC) Chandni Urbina, [facility] C.N.P., D.N.P. [address] [place] [phone] Referral ID Status Reason Start Date Expiration Date Visits V isits Requested Authorized [id number] Closed Specialty 09/25/2018 09/25/2019 1 1 Services Required OND EXPERT Reason for Visit Reason Comments Cough chills/sweats, sore throat, productive cough and shortness of breath Appointment Request (Routine) - Closed Specialty Diagnoses / Procedures Referred By Contact Refer red To Contact Family Medicine Referral ID Status Reason Start Date Expiration Date Visits Requ ested Visits Authorized [id number] Closed 09/25/2018 09/25/2019 1 Encounter Details Date Type Department Care Team Description 09/25/2018 Office Visit Department of Family Chandni Urbina, In fection Upper Respiratory (Primary Dx); Medicine, Hakeem BRITTON C.N.P., Asthma Mil d Intermittent ([facility]); [facility], in D.N.P. Bipolar II Disorder ([facility]) Hakeem Genao, [address] [place] [address] [address] [place] [phone] (Work) [phone] Social History Tobacco Use Types Packs/Day Years [...] How often do you attend worship or hindu Never 10/23/2020 services? 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/2017 10:51 AM DIAMOND EXPERT documented as of this encounter Last Filed Vital Signs Vital Sign Reading Time Taken Comments Blood Pressure 125/63 09/25/2018 10:23 AM DIAMOND EXPERT Pulse 72 09/25/2018 10:23 AM DIAMOND EXPERT Temperature 37.3 ??C (99.1 ??F) 09/25/2018 10:23 AM DIAMOND EXPERT Respiratory Rate 24 09/25/2018 10:23 AM DIAMOND EXPERT Oxygen Saturation 98% 09/25/2018 10:23 AM DIAMOND EXPERT Inhaled Oxygen Concentration - - Weight 107 kg (235 lb 3.7 oz) 09/25/2018 10:23 AM DIAMOND EXPERT Height - - Body Mass Index 38.26 [...] to persistent cough. She has also tried wggi-rdg-rfvhadc Mucinex and ibuprofen for symptoms. No known fevers. No chest pain. No vomiting. Patient is also requesting a referral to Psychiatry in [place]. She has not been taking her Cymbalta [...] A referral was placed for Psychiatry in [place] per patient request for medication evaluation. Patient [...] the content. Chandni Urbina APRN, Mitchell.N.P., D.N.P. OND EXPERT documented in this encounter Plan of Treatment Scheduled Referrals Name Type Priority Associated Order Schedule Diagnoses Psychiatry and Outpatient Referral Routine Bipolar II Disorder Expected: Psychology - General ([facility]) 019 consult (clinic) (Approximat e), Expires: 09/25/2021 documented as of this encounter Visit Diagnoses Diagnosis Infection Upper Respiratory - Primary Asthma Mild Intermittent ([facility]) Bipolar II Disorder ([facility]) documented in this encounter Additional Health Concerns Assessment Noted Time PHQ-9 Depression Total Score: 11 02/10/2018 4:00 PM CD T documented as of this encounter Care Teams Sign Artist Relationship Specialty Start Date End Date Chandni Urbina APRN, C.N.P., PCP - General Family Medicine 06/06/19 D.N.P. [address] [place] [phone] documented as of this encounter
--- OUTSIDE RECORDS SUMMARY | 2022-06-01 09:39 | XMS_ITS | Encounter Summary ---
:1995 Author Organization [facility] Address [address] [place] [address] Care Team Providers Name Role Phone Chandni Urbina APRN, C.N.Rodrigo., D.N.P. Primary Care Provider Reason for Visit Reason Comments Med Refill Encounter Details Date Type Department Care Team Description 08/31/2018 Refill Department of Family Medicine, Mitchell Saucedo, Med Refill [facility], in [address] [address] [place], [place] [address] [phone] Social History Tobacco Use Types Packs/Day Years [...] How often do you attend synagogue or methodist Never 10/23/2020 services? 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 [address] [place] [address] documented as of this encounter
--- OUTSIDE RECORDS SUMMARY | 2022-06-01 09:39 | XMS_ITS | Encounter Summary ---
:1995 Author Organization [facility] Address [address] [place] [address] Care Team Providers Name Role Phone Chandni Urbina APRN C.N.P., D.N.P. Primary Care Provider Reason for Visit Outpatient (Routine) - Closed Specialty Diagnoses / Procedures Referred By Contact Refer red To Contact Diagnoses Radiculopathy Lumbar Lizzie June II, M.D. [facility] Procedures EMG [address] [place] [phone] Referral ID Status Reason Start Date Expiration Date Visits Requ ested Visits Authorized [id number] Closed 12/23/2017 06/21/2018 1 1 Encounter Details Date Type Department Care Team Description 03/01/2018 Diagnostic Department of Neurology Chloe Han, Radiculopathy Lumbar [place] DGonzaloOGonzalo [address] [facility] 701 [place] [phone] [place] [phone] (Wo rk) Social History Tobacco Use [...] How often do you attend protestant or taoism Never 10/23/2020 services? 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 Final Report Study Number: 1 EMG Legal Contracts Specialist: Chloe Han Referred by: LIZZIE JUNE II (127 or [phone]) Referred for: Query lumbar radiculopathy on the [...] documented as of this encounter Care Teams Renewable Energy Technician Relationship Specialty Start Date End Date Chandni Urbina, TOBI, C.N.P., PCP - General Family Medicine 06/06/19 D.N.P. [address] [place] [phone] documented as of this encounter
--- OUTSIDE RECORDS SUMMARY | 2022-06-01 09:39 | XMS_ITS | Encounter Summary ---
:1995 Author Organization [facility] Address [address] [place] [address] Care Team Providers Name Role Phone Chandni Urbina APRN C.N.P., D.N.P. Primary Care Provider Reason for Referral Outpatient (Routine) - Closed Specialty Diagnoses / Procedures Referred By Contact Refer red To Contact Diagnoses Radiculopathy Lumbar Lizzie June II, M.D. [facility] Procedures EMG [address] [place] [phone] Referral ID Status Reason Start Date Expiration Date Visits Requ ested Visits Authorized [id number] Closed 12/23/2017 06/21/2018 1 1 Reason for Visit Reason Comments Back Pain low back pain, left hip pain , with shooting pain and numbness down the left leg Encounter Details Date Type Department Care Team Description 12/23/2017 Hospital Encounter Department of Pain Lizzie June Ra diculopathy Lumbar (Primary Dx); Medicine in [place] EVANS M.D. Pain Hip Left; [place], [place] [address] [facility] Weakness Leg Left [address] [place] [phone] Social History Tobacco Use Types Packs/Day Years [...] How often do you attend denominational or gnosticist Never 10/23/2020 services? 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 07/18/14 Yes Historical Richard Stafford fluticasone-vilanterol (for_BREO ELLIPTA DISKUS) 100-25 mcg/actuation inhaler [...] has a 4-year-old. She lives in the [facility]. 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 PHYSICAL EXAMINATION GENERAL: The patient is awake, [...] ? Final Report Study Number: 1 EMG Hand Mica Plate Layer: Chloe Han Referred by: LIZZIE JUNE II (127 or [phone]) Referred for: Query lumbar radiculopathy on the [...] documented as of this encounter Care Teams Transit Manager Relationship Specialty Start Date End Date Chandni Urbina APRN, C.N.P., PCP - General Family Medicine 06/06/19 D.N.P. [address] [place] [address] documented as of this encounter
--- OUTSIDE RECORDS SUMMARY | 2022-06-01 09:39 | XMS_ITS | Encounter Summary ---
:1995 Author Organization [facility] Address [address] [place] [address] Care Team Providers Name Role Phone Holley Saucedo APRN, C.N.P. Primary Care Provider [phone] Reason for Visit Reason Comments Follow-up Patient is here to update wo rk restrictions for left hip pain. Appointment Request (Routine) - Closed Specialty Diagnoses / Procedures Referred By Contact Refer red To Contact Family Medicine Referral ID Status Reason Start Date Expiration Date Visits Requ ested Visits Authorized [id number] Closed 10/11/2017 04/09/2018 1 1 Encounter Details Date Type Department Care Team Description 10/12/2017 Office Visit Department of Family Chandni Urbina Pa in Hip Left (Primary Medicine, [place] TOBI, C.N.P., Dx) Clinic, in [place] [address] [address] [phone] Social History Tobacco Use Types Packs/Day Years [...] How often do you attend mormon or christianity Never 10/23/2020 services? 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/2017 10:51 AM GLASS BLOWER documented as of this encounter Last Filed Vital Signs Vital Sign Reading Time Taken Comments Blood Pressure 113/62 10/12/2017 2:32 PM GLASS BLOWER Pulse 74 10/12/2017 2:32 PM GLASS BLOWER Temperature 36.5 ??C (97.7 ??F) 10/12/2017 2:32 PM GLASS BLOWER Respiratory Rate 16 10/12/2017 2:32 PM GLASS BLOWER Oxygen Saturation 97% 10/12/2017 2:32 PM GLASS BLOWER Inhaled Oxygen Concentration - - Weight 99.3 kg (218 lb 14.7 oz) 10/12/2017 2:32 PM GLASS BLOWER Height - - Body Mass Index 35.33 08/31/2017 4:59 PM GLASS BLOWER documented in this encounter Progress Notes Chandni [...] a in the family. She has tried qved-mmq-moduolp medications as well asphysical therapy without significant improvement of symptoms. She has previously been on work restrictions - lifting no more than 25 lb at a time with minimal bending and kneeling squatting or twisting. 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 Brief Review of Systems: A brief [...] the content. Chandni Urbina APRN, C.N.P., D.N.P. S BLOWER documented in this encounter Plan of Treatment Not on filedocumented as of this encounter Visit Diagnoses Diagnosis Pain Hip Left - Primary documented in this encounter Additional Health Concerns Assessment Noted Time PHQ-9 Depression Total Score: 9 08/30/2017 4:00 PM GLASS BLOWER documented as of this encounter Care Teams Distillery Worker Relationship Specialty Start Date End Date Holley Saucedo APRN, C.N.P. PCP - General 01/27/17 12/09/17 documented as of this encounter
--- OUTSIDE RECORDS SUMMARY | 2022-06-01 09:39 | XMS_ITS | Encounter Summary ---
:1995 Author Organization [facility] Address [address] [place] [address] Care Team Providers Name Role Phone Holley Saucedo APRN C.NGonzaloPGonzalo Primary Care Provider [phone] Encounter Details Date Type Department Care Team Description 10/27/2017 Hospital Encounter Department of [facility] [phone] Social History Tobacco Use Types Packs/Day Years [...] How often do you attend moravian or gnosticism Never 10/23/2020 services? 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/2017 10:51 AM CERTIFIED PARALEGAL documented as of this encounter Medications at [...] Depression Total Score: 9 08/30/2017 4:00 PM CERTIFIED PARALEGAL documented as of this encounter Care Teams Resin Coater Relationship Specialty Start Date End Date Holley Saucedo APRN, C.N.P. PCP - General 01/27/17 12/09/17 documented as of this encounter
--- OUTSIDE RECORDS SUMMARY | 2022-06-01 09:39 | XMS_ITS | Encounter Summary ---
:1995 Author Organization [facility] Address [address] [place] [address] Care Team Providers Name Role Phone Holley Saucedo APRN C.NGonzaloPGonzalo Primary Care Provider Encounter Details Date Type Department Care Team Description 10/27/2017 Hospital Encounter Department of [facility] [phone] Social History Tobacco Use Types Packs/Day Years [...] How often do you attend episcopal or confucianist Never 10/23/2020 services? Do you [...] Date Recorded Female 08/12/2017 10:51 AM CAN SOLDERER documented as of this encounter Medications at [...] Depression Total Score: 9 08/30/2017 4:00 PM CAN SOLDERER documented as of this encounter Care Teams Marketing Administrator Relationship Specialty Start Date End Date Holley Saucedo APRN, C.N.P. PCP - General 01/27/17 12/09/17 documented as of this encounter
--- OUTSIDE RECORDS SUMMARY | 2022-06-01 09:39 | XMS_ITS | Encounter Summary ---
:1995 Author Organization [facility] Address [address] [place] [address] Care Team Providers Name Role Phone Holley Saucedo APRN, C.N.P. Primary Care Provider [phone] Reason for Visit Reason Comments Med Refill Encounter Details Date Type Department Care Team Description 11/04/2017 Refill Department of [facility] Holley Saucedo APRN, Med Refill Medicine, [facility], in [address] [place] [address] [place], [place] [address] [phone] Social History Tobacco Use Types Packs/Day Years [...] How often do you attend presybeterian or hoahaoism Never 10/23/2020 services? 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 PCP - General 01/27/17 12/09/17 documented as of this encounter
--- OUTSIDE RECORDS SUMMARY | 2022-06-01 09:39 | XMS_ITS | Encounter Summary ---
:1995 Author Organization [facility] Address [address] [place] [address] Care Team Providers Name Role Phone Amanda Arreola APRN, C.N.P. Primary Care Provider [phone] Reason for Visit Reason Comments Sore Throat Since tuesday. Chills, head ache, left ear pressure since yesterday, achy neck. Encounter Details Date Type Department Care Team Description 10/06/2017 Office Visit Department of Amanda Newman Sor e Throat (Primary Dx); Medicine, Hakeem Baker APRN, C.N.P. Effusion Ear Middle Left; [facility], in [address] [place] [address] Chills Without Fever; [place], [place] [address] Headache Benign [place] [phone] [place] [address] (Work) [place] [address] Social History Tobacco Use Types [...] How often do you attend hoahaoism or baptism Never 10/23/2020 services? 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 CONSULTANT documented as of this encounter Last Filed Vital Signs Vital Sign Reading Time Taken Comments Blood Pressure 113/67 10/06/2017 8:42 AM DESKTOP SUPPORT CONSULTANT Pulse 108 10/06/2017 8:42 AM DESKTOP SUPPORT CONSULTANT Temperature 37.4 ??C (99.3 ??F) 10/06/2017 8:42 AM DESKTOP SUPPORT CONSULTANT Respiratory Rate 18 10/06/2017 8:42 AM DESKTOP SUPPORT CONSULTANT Oxygen Saturation 97% 10/06/2017 8:42 AM DESKTOP SUPPORT CONSULTANT Inhaled Oxygen Concentration - - Weight 99 kg (218 lb 4.1 oz) 10/06/2017 8:42 AM DESKTOP SUPPORT CONSULTANT Height - - Body Mass Index 35.23 08/31/2017 4:59 PM DESKTOP SUPPORT CONSULTANT documented in this encounter Progress Notes Amanda [...] Middle Left She was instructed to use [id number] daily Claritin for 7-10 days for symptom [...] Coughing up mucus (phlegm): Yes Wheezing: Yes TOP SUPPORT CONSULTANT documented in this encounter Miscellaneous Notes Addendum Note - Amanda Arreola APRN, C.N.P. - 10/06/2017 8:45 AM DESKTOP SUPPORT CONSULTANT Addended by: AMANDA ARREOLA on: 10/06/2017 09:43 AM Modules accepted: Orders TOP SUPPORT CONSULTANT documented in this encounter Plan of Treatment Not on filedocumented as of this encounter Procedures Procedure Name Priority Date/Time Associated Diagnosis Comme nts RAPID STREP A Routine 10/06/2017 9:07 AM Sore Throat Results for this SCREEN DESKTOP SUPPORT CONSULTANT procedure are i n the results section. documented in this encounter Results (ABNORMAL) Rapid Strep A Screen Throat (10/06/2017 9:07 AM DESKTOP SUPPORT CONSULTANT) [facility] Method Time Signature Rapid Strep A Positive (A) Negative 10/06/2017 [facility] Screen 9:19 AM DESKTOP SUPPORT CONSULTANT [facility] Specimen Anatomical Collection Method Collection Time Receive d Time (Source) Location / / Volume Laterality Varies (Throat) 10/06/2017 9:07 AM 2017 9:09 DESKTOP SUPPORT CONSULTANT AM DESKTOP SUPPORT CONSULTANT Amanda Arreola APRN, C.N.P. LAB MICROBIOLOGY - GENE RAL ORDERABLES Performing Organization Address City/State/ZIP Code Phon e Number [facility]- [id number] [place] [address] [facility] documented in this encounter Visit Diagnoses Diagnosis Sore Throat - Primary Effusion Ear Middle Left Chills Without Fever Headache Benign documented in this encounter Additional Health Concerns Assessment Noted Time PHQ-9 Depression Total Score: 9 08/30/2017 4:00 PM DESKTOP SUPPORT CONSULTANT documented as of this encounter Care Teams Makeup Artist Relationship Specialty Start Date End Date Amanda Arreola APRN, C.N.P. PCP - General 01/27/17 12/09/17 documented as of this encounter
--- OUTSIDE RECORDS SUMMARY | 2022-06-01 09:40 | XMS_ITS | Encounter Summary ---
:1995 Author Organization [facility] Address [address] [place] [address] Care Team Providers Name Role Phone Unavailable Primary Care Provider Unavailable Encounter Details Date Type Department Care Team Description 12/11/2016 Hospital Encounter HX [facility] [place] Kerry López M.D. [address] [place], [place] [address] (Wo rk) Social History [...] How often do you attend christianity or lutheran Never 10/23/2020 services? 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 FU if no change or worsening symptoms prn. Ordered: OV Est Pt Level 3 - 19695 - 15 min Orders: penicillin V potassium, 500 mg = 1 tab(s), PO, 2xDay, x 10 day(s), # 20 tab(s), 0 Refill(s), Acute,Pharmacy: [facility] Electronically Signed By: CARLEE LÓPEZ MD On: 12/11/2016 10:48 AM Source: [facility] POWERCHART Document Id: [id number] documented in this encounter Miscellaneous Notes Miscellaneous - Carlee López M.D. - 12/11/2016 10:48 AM CDT Ambulatory Patient Summary [address] [place], [place] [phone] Visit Information Name: DHIRAJ LANDA [facility] Number: [id number] Current Date: 12/11/2016 10:48:48 Physicians Attending Provider: CARLEE LÓPEZ MD Primary Care Provider: AMANDA ARREOLA MARKETING COMMUNICATIONS COORDINATOR DHIRAJ LANDA has been given the following [...] nasal (Flonase 0.05 mg/inh nasal spray) 2 Naturita(s), Nasal, two times a day fluticasone-salmeterol (Advair Diskus 250 mcg-50 mcg inhalation powder) 1 puff(s), Inhalation, two times a day levonorgestrel-ethinyl estradiol (Chateal 0.15 mg-30 mcg oral tablet) 1 Tablet(s), Oral, once a day penicillin V potassium (penicillin V potassium 500 mg oral tablet) 1 Tablet(s), Oral, two times a day x 10 day(s) New Routed to [address] [place] [address] traZODone (traZODone 50 mg oral tablet) 1 [...] if you dont have one. Go to [email or web address] and click on Create Your Account. Then, follow the directions to complete the online form. Youll be asked for your [facility] number which you can find at the top of this document. Your Goals/Additional instructions: Source: [facility] POWER[facility]ART Document Id: [id number] Miscellaneous - Carlee López M.D. - 12/11/2016 10:48 AM CDT Ambulatory Discharge Medication List [address] [id number] Visit Information Name: SYEDADHIRAJ PAWEL [facility] Number: [id number] Current Date: 12/11/2016 10:48:47 Attending Provider: CARLEE LÓPEZ MD Primary Care Provider: AMANDA ARREOLA MARKETING COMMUNICATIONS COORDINATOR SYEDADHIRAJ PAWEL has been given the following [...] nasal (Flonase 0.05 mg/inh nasal spray) 2 Naturita(s), Nasal, two times a day fluticasone-salmeterol (Advair Diskus 250 mcg-50 mcg inhalation powder) 1 puff(s), Inhalation, two times a day levonorgestrel-ethinyl estradiol (Chateal 0.15 mg-30 mcg oral tablet) 1 Tablet(s), Oral, once a day penicillin V potassium (penicillin V potassium 500 mg oral tablet) 1 Tablet(s), Oral, two times a day x 10 day(s) New Routed to [address] [address] traZODone (traZODone 50 mg oral [...] MD Signed On:11-DEC-2016 10:48:45 Additional Information: Source: [facility] Document Id: [id number] Miscellaneous - Carlee López M.D. - 12/11/2016 10:44 AM CDT Work Excuse December 11, 2016 DHIRAJ LANDA [address] [place] [address] Dear DHIRAJ LANDA, You were examined in [...] date: 12-13-2016 Notes: _ Sincerely, CARLEE LÓPEZ [address] [place] [address] Electronic Signature Electronically Signed By: CARLEE LÓPEZ MD On: December 11, 2016 This document has images extracted. Source: [facility] NarvalousCHART Document Id: [id number] Electronically signed by [facility] Button Attaching Machine Operator [id number] at 01/25/2017 12:41 PM CDT Miscellaneous - Janet Ramon, L.P.N. - 12/11/2016 10:05 AM CDT Adult Hospital Administrator Intake/History Adult Hospital Administrator Intake/History Entered On: 12/11/2016 10:07 CDT Performed [...] 12/11/2016 10:05 CDT General Info Languages : Chadian Is Patient Female and 13-50 no hysterectomy : Yes Status : Patient denies Are you ? : No JANET RAMON [facility] - 12/11/2016 10:05 CDT Subjective Pain Symptoms : Yes JANET RAMON [facility] - 12/11/2016 10:05 CDT Pain Scale Pain Scale Verbal 0-10 : Open JANET RAMON [facility] - 12/11/2016 10:05 CDT Pain Pain Assessment Grid Pain 1 Location : Throat MARJ RAMONSAMANTHA Emerson [facility] - 12/11/2016 10:05 CDT Dependent Habits Exposure to Tobacco Smoke : Care provider denies smoking in home, Other: former smoker Smoking Status : Former smoker Tobacco 2A : Yes Tobacco Use/Currently Using : No Tobacco Use/Last 30 Days : No Tobacco Use/Last 12 months : No Tobacco Last Use/Month : July Tobacco Last Use/Year : 2015 JACK RAMONWero Emerson [facility] - 12/11/2016 10:05 CDT Caffeine Use Grid Caffeine Use : Current Type : Soft drinks Frequency : Occasionally JANET RAMON [facility] - 12/11/2016 10:05 CDT Recreational Drug Use Grid Drug Use : None RADHAPOOJA JANET D [facility] - 12/11/2016 10:05 CDT Source: [facility] Price Interactive Document Id: [id number] documented in this encounter Plan of Treatment Not on filedocumented as of this encounter Procedures Procedure Name Priority Date/Time Associated Diagnosis Comme nts RAPID STREP A Routine 12/11/2016 10:11 AM Results for this SCREEN CDT procedure are i n the results section. documented in this encounter Results (ABNORMAL) Rapid Strep A Screen (12/11/2016 10:11 AM CDT) [facility] Method Time Signature HXStrep A (POSITIVE) [...]
--- OUTSIDE RECORDS SUMMARY | 2022-06-01 09:40 | XMS_ITS | Encounter Summary ---
:1995 Author Organization [facility] Address [address] [place] [address] Care Team Providers Name Role Phone Holley Saucedo APRN C.N.P. Primary Care Provider [phone] Encounter Details Date Type Department Care Team Description 06/24/2017 Clinical Communication Department of [facility] Vandana Baker P.T. in [address] [phone] Social History Tobacco Use Types Packs/Day Years [...] How often do you attend yazidism or zoroastrianism Never 10/23/2020 services? 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 PCP - General 01/27/17 12/09/17 documented as of this encounter
--- OUTSIDE RECORDS SUMMARY | 2022-06-01 09:40 | XMS_ITS | Encounter Summary ---
:1995 Author Organization [facility] Address [address] [place] [address] Care Team Providers Name Role Phone Holley Saucedo APRN, C.N.P. Primary Care Provider [phone] Reason for Visit Reason Comments Communication Encounter Details Date Type Department Care Team Description 09/23/2017 Clinical Communication Department of Pina Newman Communication Medicine, Hakeem Baker APRN, C.N.P. [facility], in [address] [place] [address] [place] [address] [place], [place] (Work) [phone] Social History Tobacco Use [...] How often do you attend islam or zoroastrian Never 10/23/2020 services? 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 - 09/23/2017 12:07 PM FERRYBOAT OPERATOR Pt called back to clinic, imaging results relayed to her. Pt verbalized understanding and transferred to scheduling for ortho visit. YBOAT OPERATOR Telephone Encounter - Edith Corona R.N. - 09/23/2017 11:16 AM FERRYBOAT OPERATOR RN tried to contact pt, no answer, will try again after 12pm. Result note listed under imaging in pt's chart. YBOAT OPERATOR Telephone Encounter - Matilde Yeung - 09/23/2017 10:51 AM CST Patient returned nurse call regarding MRI results. She said the best time to reach her will be [id number]. YBOAT OPERATOR documented in this encounter Plan of Treatment Not on filedocumented as of this encounter Visit Diagnoses Not on filedocumented in this encounter Additional Health Concerns Assessment Noted Time PHQ-9 Depression Total Score: 9 08/30/2017 4:00 PM FERRYBOAT OPERATOR documented as of this encounter Care Teams Human Resources Operations Specialist Relationship Specialty Start Date End Date Holley Saucedo APRN, C.N.P. PCP - General 01/27/17 12/09/17 documented as of this encounter
--- OUTSIDE RECORDS SUMMARY | 2022-06-01 09:40 | XMS_ITS | Encounter Summary ---
:1995 Author Organization [facility] Address [address] [place] [address] Care Team Providers Name Role Phone Holley Saucedo APRN, C.N.P. Primary Care Provider [phone] Encounter Details Date Type Department Care Team Description 09/23/2017 Orders Only Department of [facility] Holley Saucedo n Hip Left (Primary Medicine, [place] TOBI Baker, C.N.P. Dx) Clinic, in [address] [place] [address] [place], [place] (Work) [address] [phone] Social History Tobacco Use Types Packs/Day Years [...] How often do you attend sikh or nondenominational Never 10/23/2020 services? 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 PCP - General 01/27/17 12/09/17 documented as of this encounter
--- OUTSIDE RECORDS SUMMARY | 2022-06-01 09:40 | XMS_ITS | Encounter Summary ---
:1995 Author Organization [facility] Address [address] [place] [address] Care Team Providers Name Role Phone Holley Saucedo APRN, C.NGonzaloP. Primary Care Provider [phone] Reason for Visit Reason Comments Other cold symptoms Encounter Details Date Type Department Care Team Description 08/12/2017 Office Visit Department of Family Cj Bronchi tis (Primary Dx); Medicine, [place] Beny Wiley Asthma Moderate Persistent (HCC) Clinic, in [address] [phone] Social History Tobacco Use Types Packs/Day [...] How often do you attend sikh or judaism Never 10/23/2020 services? 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 documented as of this encounter Last Filed Vital Signs Vital Sign Reading Time Taken Comments Blood Pressure 120/72 08/12/2017 11:23 AM FIRE PROTECTION EQUIPMENT TECHNICIAN Pulse 72 08/12/2017 11:23 AM FIRE PROTECTION EQUIPMENT TECHNICIAN Temperature 36.6 ??C (97.9 ??F) 08/12/2017 11:23 AM FIRE PROTECTION EQUIPMENT TECHNICIAN Respiratory Rate - - Oxygen Saturation - - Inhaled Oxygen Concentration - - Weight 99.6 kg (219 lb 9.3 oz) 08/12/2017 11:23 AM FIRE PROTECTION EQUIPMENT TECHNICIAN Height 166 cm (5' 5.35) 08/12/2017 11:23 AM FIRE PROTECTION EQUIPMENT TECHNICIAN Body Mass Index 36.14 08/12/2017 11:23 AM FIRE PROTECTION EQUIPMENT TECHNICIAN documented in this encounter Progress Notes Inez [...] package directions, Disp: 1 tablet,Rfl: 0 ??? prenat.vits,hernandez,ykw-rjtx-aestb ( VITAMIN) tablet, Take 1 tablet by [...] 1 tablet daily for 4 days., Normal nIez Corona M.D. PROTECTION EQUIPMENT TECHNICIAN documented in this encounter Plan of Treatment Not on filedocumented as of this encounter Visit Diagnoses Diagnosis Bronchitis - Primary Asthma Moderate Persistent (HCC) documented in this encounter Additional Health Concerns Assessment Noted Time PHQ-9 Depression Total Score: 17 07/12/2017 10:[address] documented as of this encounter Care Teams Self Defense Instructor Relationship Specialty Start Date End Date Holley Saucedo APRN, C.N.P. PCP - General 01/27/17 12/09/17 documented as of this encounter
--- OUTSIDE RECORDS SUMMARY | 2022-06-01 09:40 | XMS_ITS | Encounter Summary ---
:1995 Author Organization [facility] Address [address] [place] [address] Care Team Providers Name Role Phone Holley Arreola APRN, C.N.P. Primary Care Provider [phone] Encounter Details Date Type Department Care Team Description 04/05/2017 Hospital Encounter HX [facility] FAMILY ME Francisca Arreola APRN, C.N.P. [address] [place], [place] [address] (Wo rk) Social History [...] How often do you attend jew or yazidism Never 10/23/2020 services? 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 See #3 below. Ordered: OV Est Pt Level 3 - 04114 - 15 min Mood Disorder NOS I ordered a referral to behavioral health at [facility] for further evaluation related to her increased mood swings/anger management. We discussed the use of a behavioral health therapist in the future for symptom management. She was instructed to contact the clinic with worsening or no improvement in symptoms. All questions were answered. She left in no acute distress. Ordered: OV Est Pt Level 3 - 62253 - 15 min Orders: Consult to Integrated Behavioral Health - Diagnostic Medication Electronically Signed By: HOLLEY ARREOLA CNP, RN On: 04/05/2017 12:07 PM Source: [facility] [employer] Document Id: [id number] documented in this encounter Miscellaneous Notes Miscellaneous [...] DIA LPN - 04/05/2017 14:39 CDT [facility] Document Id: [id number] CDT!11 Miscellaneous - Chrissy Dia L.P.Berta - 04/05/2017 2:38 PM CDT PHQ-9 PHQ-9 [...] DIA LPN - 04/05/2017 14:38 CDT Source: [facility] [employer] Document Id: [id number] CDT!13 Miscellaneous - Arielle Harris L.PChristy - 04/05/2017 11:23 AM CDT Adult Compliance Paralegal Intake/History Adult Compliance Paralegal Intake/History Entered On: 04/05/2017 11:26 CDT Performed [...] 04/05/2017 11:23 CDT General Info Languages : Andorran Is Patient Female and 13-50 no hysterectomy [...] HARRIS LPN - 04/05/2017 11:23 CDT Source: [facility] [employer] Document Id: [id number] CDT!45 documented in this encounter Plan of Treatment Not on filedocumented as of this encounter Visit Diagnoses Not on filedocumented in this encounter Additional Health Concerns Assessment Noted Time PHQ-9 Depression Total Score: 04/05/2017 2:38 PM CD T documented as of this encounter Care Teams Fire Eater Relationship Specialty Start Date End Date Holley Arreola APRN, C.N.P. PCP - General 01/27/17 12/09/17 documented as of this encounter
--- OUTSIDE RECORDS SUMMARY | 2022-06-01 09:40 | XMS_ITS | Encounter Summary ---
:1995 Author Organization [facility] Address [address] [place] [address] Care Team Providers Name Role Phone Holley Saucedo APRN, C.N.P. Primary Care Provider [phone] Encounter Details Date Type Department Care Team Description 08/30/2017 Nurse Triage [facility], Kamla Baker , Medicine, [facility], R.N. in [place], [place] [address] [place] [address] Social History Tobacco Use Types Packs/Day Years [...] How often do you attend restorationist or jew Never 10/23/2020 services? 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 PCP - General 01/27/17 12/09/17 documented as of this encounter
--- OUTSIDE RECORDS SUMMARY | 2022-06-01 09:40 | XMS_ITS | Encounter Summary ---
:1995 Author Organization [facility] Address [address] [place] [address] Care Team Providers Name Role Phone Holley Saucedo APRN, C.N.P. Primary Care Provider [phone] Encounter Details Date Type Department Care Team Description 09/12/2017 Hospital Encounter Department of Holley Saucedo nitpaty Disorder Laboratory Medicine TOBI Baker, C.N .P. 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 documented in this encounter Results QuantiFERON-TB Gold In-Tube for Detection of Latent Tuberculosis (09/12/2017 4:45 PM COLLEGE BASKETBALL COACH) athologist Signature QuantiFERON-TB Negative Negative 09/15/2017 [facility] Gold Result 1:25 PM [facility] Comment: No interferon-gamma response to M. tuber culosis antigens was detected. Infection with M. tubercul osis is unlikely. A negative result alone does not exclude infection with M. tuberculosis. For detailed information regarding test interpretation see: [email or web address] alog/ Clinical+and+Interpretive/28338 TB Ag minus Nil Result 0.01 IU/mL 09/15/2017 1:25 P [facility] Mitogen minus Nil >10.00 IU/mL 09/15/2017 1:25 PM COLLEGE BASKETBALL COACH [facility] Nil Result 0.02 IU/mL 09/15/2017 1:25 PM [facility] Specimen Anatomical Collection Method Collection Time Receive d Time (Source) Location / / Volume Laterality Blood (Blood, 09/12/2017 4:45 PM 09/13/19 18 3:58 Venous) COLLEGE BASKETBALL COACH PM COLLEGE BASKETBALL COACH Narrative [facility] - 09/15/2017 1:25 PM COLLEGE BASKETBALL COACH Specimen Information: Specimen ID: [id number] Specimen Type: Blood Specimen Collection Start Date: 09/12/19 18 ??4:45 PM Specimen Received Date: 09/13/2017 ??3:5 8 PM Specimen ID: [id number] Specimen Type: Blood Specimen Collection Start Date: 09/12/19 18 ??4:45 PM Specimen Received Date: 09/13/2017 ??3:5 8 PM Specimen ID: [id number] Specimen Type: Blood Specimen Collection Start Date: 09/12/19 18 ??4:45 PM Specimen Received Date: 09/13/2017 ??3:5 8 PM Holley Saucedo APRN, C.N.P. LAB MICROBIOLOGY - BLOO D ORDERABLES Performing Organization Address City/State/ZIP Code Phon e Number [address] [place] [address] [facility] documented in this encounter Visit Diagnoses Diagnosis Immunity Disorder Screening Exam documented in this encounter Additional Health Concerns Assessment Noted Time PHQ-9 Depression Total Score: 9 08/30/2017 4:00 PM COLLEGE BASKETBALL COACH documented as of this encounter Care Teams Health Safety And Environment Manager Relationship Specialty Start Date End Date Holley Saucedo APRN, C.N.P. PCP - General 01/27/17 12/09/17 documented as of this encounter
--- OUTSIDE RECORDS SUMMARY | 2022-06-01 09:40 | XMS_ITS | Encounter Summary ---
:1995 Author Organization [facility] Address [address] [place] [address] Care Team Providers Name Role Phone Holley Saucedo APRN, C.N.P. Primary Care Provider [phone] Reason for Visit Reason Comments Other toothache since Tuesday Encounter Details Date Type Department Care Team Description 08/31/2017 Office Visit Department of Family Chandni Urbina, [place] uralgia Trigeminal (Primary Dx); Medicine, [place] TOBI, C.N.P., Bipo lar II Disorder (HCC) Clinic, in [place] [address] [phone] Social History Tobacco Use Types Packs/Day Years [...] How often do you attend buddhist or nondenominational Never 10/23/2020 services? 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 documented as of this encounter Last Filed Vital Signs Vital Sign Reading Time Taken Comments Blood Pressure 92/52 08/31/2017 4:59 PM ADULT HEALTH CLINICAL NURSE SPECIALIST Pulse 82 08/31/2017 4:59 PM ADULT HEALTH CLINICAL NURSE SPECIALIST Temperature 36.8 ??C (98.2 ??F) 08/31/2017 4:59 PM ADULT HEALTH CLINICAL NURSE SPECIALIST Respiratory Rate 20 08/31/2017 4:59 PM ADULT HEALTH CLINICAL NURSE SPECIALIST Oxygen Saturation - - Inhaled Oxygen Concentration - - Weight 103 kg (227 lb 8.2 oz) 08/31/2017 4:59 PM ADULT HEALTH CLINICAL NURSE SPECIALIST Height 167.6 cm (5' 6) 08/31/2017 4:59 PM ADULT HEALTH CLINICAL NURSE SPECIALIST Body Mass Index 36.72 08/31/2017 4:59 PM ADULT HEALTH CLINICAL NURSE SPECIALIST documented in this encounter Patient Instructions Patient InstructionsChandni Urbina APRN, D.N.P., C.N.P. - 08/31/2017 5:00 PM CST Gabapentin: Take one dose tonight (300mg), then tomorrow 300mg twice/day for 3 days, then 300mg three times a day until pain goes away Medrol Dose Pack: Instructions as prescribed on the package T HEALTH CLINICAL NURSE SPECIALIST documented in this encounter Progress Notes Chandni [...] tablet Take 10 mg by mouth. ??? prenat.vits,hernandez,ugb-gsqz-zinvy ( VITAMIN) tablet Take 1 tablet by [...] the content. Chandni Urbina APRN, D.N.P., C.N.P. T HEALTH CLINICAL NURSE SPECIALIST documented in this encounter Plan of Treatment Not on filedocumented as of this encounter Visit Diagnoses Diagnosis Neuralgia Trigeminal - Primary Bipolar II Disorder (HCC) documented in this encounter Additional Health Concerns Assessment Noted Time PHQ-9 Depression Total Score: 9 08/30/2017 4:00 PM ADULT HEALTH CLINICAL NURSE SPECIALIST documented as of this encounter Care Teams Nonprofit Director Relationship Specialty Start Date End Date Holley Saucedo APRN, C.N.P. PCP - General 01/27/17 12/09/17 documented as of this encounter
--- OUTSIDE RECORDS SUMMARY | 2022-06-01 09:40 | XMS_ITS | Encounter Summary ---
:1995 Author Organization [facility] Address [address] [place] [address] Care Team Providers Name Role Phone Holley Saucedo APRN, C.N.P. Primary Care Provider [phone] Reason for Referral MRI/CAT/PET Scan (Routine) - Closed Specialty Diagnoses / Procedures Referred By Contact Refer red To Contact Radiology Diagnoses Pain Hip Left Holley Saucedo APRN, [facility] [place] [facility] Procedures MR Hip Left without IV Contrast C.N.P. [address] [place] [address] Referral ID Status Reason Start Date Expiration Date Visits Requ ested Visits Authorized [id number] Closed 08/18/2017 02/14/2018 1 1 ESSMAKER APPRENTICE Reason for Visit MRI/CAT/PET Scan (Routine) - Closed Specialty Diagnoses / Procedures Referred By Contact Modesta red To Contact Radiology Diagnoses Pain Hip Left Holley Saucedo APRN, [facility] [place] [facility] Procedures MR Hip Left without IV Contrast C.N.P. [address] [place] [address] Referral ID Status Reason Start Date Expiration Date Visits Requ ested Visits Authorized [id number] Closed 08/18/2017 02/14/2018 1 1 Encounter Details Date Type Department Care Team Description 09/22/2017 Hospital Encounter Department of Holley Saucedo P ain Hip Left Radiology in [place] [address] [address] [place], [place] [phone] (W ork) [address] [phone] Social History Tobacco Use Types Packs/Day Years [...] How often do you attend hindu or samaritan Never 10/23/2020 services? 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/2017 10:51 AM HARNESSMAKER APPRENTICE documented as of this encounter Medications [...] r this WITHOUT IV (most inpatients PM HARNESSMAKER APPRENTICE procedure a re in CONTRAST and all the results outpatients) section. documented in this encounter Results MR Hip Left without IV Contrast (09/22/2017 3:16 PM HARNESSMAKER APPRENTICE) Anatomical Region Laterality Modality Lower Extremity, Hip Left Magnetic Resonance Specimen (Source) Anatomical Collection Method Collection Time Re ceived Time Location / / Volume Laterality 09/22/2017 3:31 PM HARNESSMAKER APPRENTICE Impressions 09/22/2017 3:41 PM HARNESSMAKER APPRENTICE IMPRESSION: 1. ??No acute appearing abnormality of t he left hip. 2. ??Incidentally noted disc desiccation with mild disc protrusion of the lower lumbar spine. Narrative 09/22/2017 3:41 PM HARNESSMAKER APPRENTICE EXAM: MR HIP LEFT WITHOUT IV CONTRAST [...] Depression Total Score: 9 08/30/2017 4:00 PM HARNESSMAKER APPRENTICE documented as of this encounter Care Teams General Forecaster Relationship Specialty Start Date End Date Holley Saucedo APRN, C.N.P. PCP - General 01/27/17 12/09/17 documented as of this encounter
--- OUTSIDE RECORDS SUMMARY | 2022-06-01 09:40 | XMS_ITS | Encounter Summary ---
:1995 Author Organization [facility] Address [address] [place] [address] Care Team Providers Name Role Phone Holley Saucedo APRN, C.N.P. Primary Care Provider [phone] Encounter Details Date Type Department Care Team Description 05/28/2017 Abstract Department of Family Medicine in [place], [place] [address] [place], [place] [phone] Social History Tobacco Use [...] How often do you attend orthodoxy or gnosticism Never 10/23/2020 services? 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 PCP - General 01/27/17 12/09/17 documented as of this encounter
--- OUTSIDE RECORDS SUMMARY | 2022-06-01 09:40 | XMS_ITS | Encounter Summary ---
:1995 Author Organization [facility] Address [address] [place] [address] Care Team Providers Name Role Phone Holley Saucedo APRN, C.N.P. Primary Care Provider [phone] Reason for Visit Physical Therapy (Routine) - Canceled Specialty Diagnoses / Procedures Referred By Contact Refer red To Contact Diagnoses Pain Hip Left Holley Saucedo APRN, [facility] Region Procedures PT Ongoing treatment C.N.P. [address] [place] [address] Referral ID Status Reason Start Date Expiration Date Visits V isits Requested Authorized [id number] Canceled 06/13/2017 12/10/2017 12 99 Encounter Details Date Type Department Care Team Description 06/28/2017 Clinical Support Department of [place] Saucedo APRN, C.N.P. [address] [place] [address] Pain Hip Left Rehabilitation Services Vandana Au, P.T. in [address] [phone] Social History Tobacco Use Types Packs/Day Years [...] How often do you attend buddhist or presybeterian Never 10/23/2020 services? 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 PCP - General 01/27/17 12/09/17 documented as of this encounter
--- OUTSIDE RECORDS SUMMARY | 2022-06-01 09:40 | XMS_ITS | Encounter Summary ---
:1995 Author Organization [facility] Address [address] [place] [address] Care Team Providers Name Role Phone Holley Saucedo APRN, C.N.P. Primary Care Provider [phone] Reason for Referral Behavioral Health (Routine) - Closed Specialty Diagnoses / Procedures Referred By Contact Refer red To Contact Psychiatry / Psychiatry Diagnoses Notes for Emmanuel Garibay: Fam Med IBH Psych New Patient;Hx of depression/anxiety/increased mood swings/anger concerns Holley Saucedo, [facility] and Psychology Procedures Office Visit TOBI C.N.P. [address] [place] [address] Referral ID Status Reason Start Date Expiration Date Visits Requ ested Visits Authorized [id number] Closed 05/27/2017 07/15/2017 1 1 Encounter Details Date Type Department Care Team Description 05/27/2017 Orders Only Department of [facility] Holley Saucedo, Medicine, [place] TOBI, C.N .P. Clinic, in [place], [address] [place] [id number] [place] [address] [place], [place] [address] [phone] Social History Tobacco Use Types Packs/Day Years [...] How often do you attend scientologist or buddhist Never 10/23/2020 services? 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/2017 10:51 AM EDGE SANDER documented as of this encounter Plan of [...] documented as of this encounter Care Teams Cartridge Filler Relationship Specialty Start Date End Date Holley Saucedo APRN, C.N.P. PCP - General 01/27/17 12/09/17 documented as of this encounter
--- OUTSIDE RECORDS SUMMARY | 2022-06-01 09:40 | XMS_ITS | Encounter Summary ---
:1995 Author Organization [facility] Address [address] [place] [address] Care Team Providers Name Role Phone Holley Arreola APRN, C.N.P. Primary Care Provider Encounter Details Date Type Department Care Team Description 06/02/2017 Hospital Encounter HX [facility] Francisca Arreola APRN, C.N.P. [address] [place], [place] [address] (Wo rk) Social History [...] How often do you attend restoration or evangelical Never 10/23/2020 services? 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 She reports her left hip pain is [...] Ordered: OV Est Pt Level 3 - 84849 - 15 min Orders: Physical Therapy Referral Consult and Treat Electronically Signed By: HOLLEY ARREOLA CNP RN On: 06/02/2017 08:38 AM Source: [facility] POWERCHART Document Id: [id number] documented in this encounter Miscellaneous Notes Miscellaneous - Dorian Davenport, L.P.N. - 06/02/2017 8:01 AM CDT Adult Proofreader Intake/History Adult Proofreader Intake/History Entered On: 06/02/2017 8:06 CDT Performed On: 06/02/2017 8:01 CDT by DORIAN DAVENPORT BIOFUELS PROCESSING TECHNICIAN Intake Chief Complaint : Left hip pain. Onset of Symptoms : December 2016 Ambulatory Intake Additional Information : Difficulty standing and lifting. 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 Temperature Core [...] Preferred Communication Mode : Verbal Languages : Uzbek Is Patient Female and 13-50 no hysterectomy [...] DORIAN DAVENPORT LPN 06/02/2017 8:01 CDT Source: [facility] POWERCHART Document Id: [id number] CDT!62 documented in this encounter Plan of Treatment Not on filedocumented as of this encounter Visit Diagnoses Not on filedocumented in this encounter Additional Health Concerns Assessment Noted Time PHQ-9 Depression Total Score: 04/05/2017 2:38 PM CD T documented as of this encounter Care Teams Office Administrative Assistant Relationship Specialty Start Date End Date Holley Arreola APRN, C.N.P. PCP - General 01/27/17 12/09/17 documented as of this encounter
--- OUTSIDE RECORDS SUMMARY | 2022-06-01 09:40 | XMS_ITS | Encounter Summary ---
:1995 Author Organization [facility] Address [address] [place] [address] Care Team Providers Name Role Phone Holley Saucedo APRN, C.N.P. Primary Care Provider [phone] Reason for Referral MRI/CAT/PET Scan (Routine) - Closed Specialty Diagnoses / Procedures Referred By Contact Refer red To Contact Radiology Diagnoses Pain Hip Left Holley Saucedo APRN, [facility] Region Procedures MR Hip Left without IV Contrast C.N.P. [address] [place] [address] Referral ID Status Reason Start Date Expiration Date Visits Requ ested Visits Authorized [id number] Closed 08/18/2017 02/14/2018 1 1 IFIED OPHTHALMIC ASSISTANT Reason for Visit Reason Comments Annual Exam Student exam (DCTC) Appointment Request (Routine) - Closed Specialty Diagnoses / Procedures Referred By Contact Refer red To Contact Referral ID Status Reason Start Date Expiration Date Visits Requ ested Visits Authorized [id number] Closed 08/16/2017 02/12/2018 1 1 Encounter Details Date Type Department Care Team Description 08/18/2017 Comprehensive Visit Department of Henrry Saucedo Immunization Influenza (Primary Dx); Family MedicineHolley, General Med ical Examination Adult; [place] TOBI, C.N.P. Pain Hip Left Clinic, in [address] [address] [place] [address] [facility] [phone] [place], [place] (Work) [phone] Social History Tobacco Use [...] How often do you attend yarsanism or yazdanism Never 10/23/2020 services? Do you [...] Date Recorded Female 08/12/2017 10:51 AM CERTIFIED OPHTHALMIC ASSISTANT documented as of this encounter Last Filed Vital Signs Vital Sign Reading Time Taken Comments Blood Pressure 123/69 08/18/2017 1:37 PM CERTIFIED OPHTHALMIC ASSISTANT Pulse 73 08/18/2017 1:37 PM CERTIFIED OPHTHALMIC ASSISTANT Temperature 36.8 ??C (98.2 ??F) 08/18/2017 1:37 PM CERTIFIED OPHTHALMIC ASSISTANT Respiratory Rate 16 08/18/2017 1:37 PM CERTIFIED OPHTHALMIC ASSISTANT Oxygen Saturation - - Inhaled Oxygen Concentration - - Weight 99 kg (218 lb 4.1 oz) 08/18/2017 1:37 PM CERTIFIED OPHTHALMIC ASSISTANT Height 166 cm (5' 5.35) 08/18/2017 1:37 PM CERTIFIED OPHTHALMIC ASSISTANT Body Mass Index 35.93 08/18/2017 1:37 PM CERTIFIED OPHTHALMIC ASSISTANT documented in this encounter Progress Notes Holley Saucedo, C.N.P., R.N. 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 She reports she will complete her last 2 semesters of her [employer] WHE[employer] OPER[employer] program and graduate in July of 2018. [...] she has received all her immunizations in [place]. She denies any other health concerns today. [...] tablet Take 10 mg by mouth. ??? prenat.vits,hernandez,gzp-gcqs-yympw ( VITAMIN) tablet Take 1 tablet by [...] in no acute distress. Holley Saucedo C.N.P., R.N. Answers for HPI/ROS submitted by the patient on 08/12/2017 Sinus congestion: Yes Chest pain, pressure or tightness: Yes Shortness of breath when lying flat: Yes Shortness of breath: Yes Coughing up mucus (phlegm): Yes Wheezing: Yes IFIED OPHTHALMIC ASSISTANT documented in this encounter Plan of Treatment Not on filedocumented as of this encounter Procedures Procedure Name Priority Date/Time Associated Diagnosis Comme nts MMRV IMMUNE STATUS Routine 08/18/2017 2:48 PM General Medical Results for this PROFILE CERTIFIED OPHTHALMIC ASSISTANT Examination Adult procedure are in the results section. documented in this encounter Results MR Hip Left without IV Contrast (09/22/2017 3:16 PM CERTIFIED OPHTHALMIC ASSISTANT) Anatomical Region Laterality Modality Lower Extremity, Hip Left Magnetic Resonance Specimen (Source) Anatomical Collection Method Collection Time Re ceived Time Location / / Volume Laterality 09/22/2017 3:31 PM CERTIFIED OPHTHALMIC ASSISTANT Impressions 09/22/2017 3:41 PM CERTIFIED OPHTHALMIC ASSISTANT IMPRESSION: 1. ??No acute appearing abnormality of t he left hip. 2. ??Incidentally noted disc desiccation with mild disc protrusion of the lower lumbar spine. Narrative 09/22/2017 3:41 PM CERTIFIED OPHTHALMIC ASSISTANT EXAM: MR HIP LEFT WITHOUT IV CONTRAST [...] MMRV Immune Status Profile (08/18/2017 2:48 PM CERTIFIED OPHTHALMIC ASSISTANT) athologist Signature Measles Positive 08/19/2017 [facility] ([place]) Ab, 9:58 AM [facility] Comment: Results suggest response to immunization or prior exposure to the virus. ----REFERENCE VALUE---- Vaccinated: Positive (>=1.1 AI) Unvaccinated: Negative (<=0.8 AI) Measles IgG Antibody 4.2 08/19/2017 9:58 AM [facility] Mumps Ab, IgG, S Positive 08/19/2017 9:58 AM [facility] Comment: Results suggest response to immunization or prior exposure to the virus. ----REFERENCE VALUE---- Vaccinated: Positive (>=1.1 AI) Unvaccinated: Negative (<=0.8 AI) Mumps IgG Antibody Index 1.6 08/19/2017 9:58 AM [facility] Rubella Ab, IgG, S Positive 08/19/2017 9:58 AM [facility] Comment: Results suggest response to immunization or prior exposure to the virus. ----REFERENCE VALUE---- Vaccinated: Positive (>=1.0 AI) Unvaccinated: Negative (<=0.7 AI) Rubella IgG Antibody 2.0 08/19/2017 9:58 AM [facility] Varicella-Zoster Ab, Positive 08/19/2017 9:58 AM CERTIFIED OPHTHALMIC ASSISTANT [facility] IgG, S SYSTEM- [facility] Comment: Results suggest response to immunization or prior exposure to the virus. ----REFERENCE VALUE---- Vaccinated: Positive (>=1.1 AI) Unvaccinated: Negative (<=0.8 AI) Varicella IgG Antibody 2.9 08/19/2017 9:58 A M CERTIFIED OPHTHALMIC ASSISTANT [facility] LAB Specimen Anatomical Collection Method Collection Time Receive d Time (Source) Location / / Volume Laterality Blood (Blood, 08/18/2017 2:48 PM 08/18/19 18 9:37 Venous) CERTIFIED OPHTHALMIC ASSISTANT PM CERTIFIED OPHTHALMIC ASSISTANT Holley Saucedo APRN, C.N.P. LAB MICROBIOLOGY - BLOO D ORDERABLES Performing Organization Address City/State/[facility] Code Phon e Number [facility] [address] [place] [address], [place] [address] [facility] documented in this encounter Visit Diagnoses Diagnosis Need Vaccine Immunization Influenza - Pr imary General Medical Examination Adult Pain Hip Left Pain Hip Left documented in this encounter Additional Health Concerns Assessment Noted Time PHQ-9 Depression Total Score: 17 07/12/2017 10:[address] documented as of this encounter Care Teams Adapted Physical Education Teacher Relationship Specialty Start Date End Date Holley Saucedo APRN, C.N.P. PCP - General 01/27/17 12/09/17 documented as of this encounter
--- OUTSIDE RECORDS SUMMARY | 2022-06-01 09:40 | XMS_ITS | Encounter Summary ---
:1995 Author Organization [facility] Address [address] [place] [address] Care Team Providers Name Role Phone Holley Saucedo APRN, C.N.P. Primary Care Provider [phone] Reason for Visit Physical Therapy (Routine) - Canceled Specialty Diagnoses / Procedures Referred By Contact Refer red To Contact Diagnoses Pain Hip Left Holley Saucedo APRN, [facility] Region Procedures PT Ongoing treatment C.N.P. [address] [place] [address] Referral ID Status Reason Start Date Expiration Date Visits V isits Requested Authorized [id number] Canceled 06/13/2017 12/10/2017 12 99 Encounter Details Date Type Department Care Team Description 08/02/2017 Clinical Support Department of Aspen Saucedo APRN, C.N.P. [address] [place] [address] Pain Hip Left Rehabilitation Services Vandana Au, P.T. in [address] [phone] Social History Tobacco Use Types Packs/Day Years [...] How often do you attend christian or shinto Never 10/23/2020 services? 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 - 08/02/2017 9:30 AM CST Patient [...] seen for physical therapy discharge, non billed COVER CUTTER documented in this encounter Plan of Treatment Not on filedocumented as of this encounter Visit Diagnoses Diagnosis Pain Hip Left documented in this encounter Additional Health Concerns Assessment Noted Time PHQ-9 Depression Total Score: 17 07/12/2017 10:[address] documented as of this encounter Care Teams Flue Tile Press Operator Relationship Specialty Start Date End Date Holley Saucedo APRN, C.N.P. PCP - General 01/27/17 12/09/17 documented as of this encounter
--- OUTSIDE RECORDS SUMMARY | 2022-06-01 09:40 | XMS_ITS | Encounter Summary ---
:1995 Author Organization [facility] Address [address] [place] [address] Care Team Providers Name Role Phone Holley Saucedo APRN, C.N.P. Primary Care Provider [phone] Reason for Visit Physical Therapy (Routine) - Canceled Specialty Diagnoses / Procedures Referred By Contact Refer red To Contact Diagnoses Pain Hip Left Holley Saucedo APRN, [facility] Region Procedures PT Ongoing treatment C.N.P. [address] [place] [address] Referral ID Status Reason Start Date Expiration Date Visits V isits Requested Authorized [id number] Canceled 06/13/2017 12/10/2017 12 99 Encounter Details Date Type Department Care Team Description 06/21/2017 Clinical Support Department of Aspen Saucedo APRN, C.N.P. [address] [place] [address] Pain Hip Left Rehabilitation Services Vandana Au, P.T. in [address] [phone] Social History Tobacco Use Types Packs/Day Years [...] How often do you attend druze or scientologist Never 10/23/2020 services? 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 PCP - General 01/27/17 12/09/17 documented as of this encounter
--- OUTSIDE RECORDS SUMMARY | 2022-06-01 09:40 | XMS_ITS | Encounter Summary ---
:1995 Author Organization [facility] Address [address] [place] [address] Care Team Providers Name Role Phone Holley Saucedo APRN, C.N.P. Primary Care Provider [phone] Reason for Visit Reason Comments Med Refill Encounter Details Date Type Department Care Team Description 09/01/2017 Refill Department of [facility] Holley Saucedo APRN, Med Refill Medicine, [place] [facility], in [address] [place] [address] [place], [place] [address] [phone] Social History Tobacco Use Types Packs/Day Years [...] How often do you attend zoroastrian or restoration Never 10/23/2020 services? 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 - 09/01/2017 3:27 PM CST Images from the original note were not included. Spoke with Manuel at [facility] and clarified Rx Sig according to provider message below: Chandni Urbina APRN, Ki.N.P., C.N.P. Rhianna Dubose C.M.A. Caller: Unspecified (Today, 12:45 PM) ?? Please call and confirm I'd like the patient to take Gabepentin 300mg for the first night, then start twice daily for 3 days, then 300mg TID until symptoms resolve. Thanks. ING DRUM OPERATOR Telephone Encounter - Roseline Haji - 09/01/2017 [...] x 3 days 300 mg TID thereafter ING DRUM OPERATOR documented in this encounter Plan of Treatment Not on filedocumented as of this encounter Visit Diagnoses Not on filedocumented in this encounter Additional Health Concerns Assessment Noted Time PHQ-9 Depression Total Score: 9 08/30/2017 4:00 PM TANNING DRUM OPERATOR documented as of this encounter Care Teams Instructor Decorating Relationship Specialty Start Date End Date Holley Saucedo APRN, C.N.P. PCP - General 01/27/17 12/09/17 documented as of this encounter
--- OUTSIDE RECORDS SUMMARY | 2022-06-01 09:40 | XMS_ITS | Encounter Summary ---
:1995 Author Organization [facility] Address [address] [place] [address] Care Team Providers Name Role Phone Holley Saucedo APRN C.N.P. Primary Care Provider [phone] Reason for Visit Reason Comments Communication Encounter Details Date Type Department Care Team Description 08/16/2017 Clinical Communication Department of Zuly Au Orthopedic Surgery in Vandana Baker P.T. [address] [phone] Social History Tobacco Use Types Packs/Day Years [...] How often do you attend moravian or yazdanism Never 10/23/2020 services? 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 - 08/16/2017 2:58 PM SUPPLY AND DISTRIBUTION MANAGER Holley, We have worked in PT to address L hip pain/snapping. It has gotten better but still continues to be very limiting for the patient. I think either a referral to orthopedics or an MRI of the hip/pelvis would be appropriate. PT will be on hold. Thank you, Vandana LY AND DISTRIBUTION MANAGER documented in this encounter Plan of Treatment Not on filedocumented as of this encounter Visit Diagnoses Not on filedocumented in this encounter Additional Health Concerns Assessment Noted Time PHQ-9 Depression Total Score: 17 07/12/2017 10:[address] documented as of this encounter Care Teams Career Counselor Relationship Specialty Start Date End Date Holley Saucedo, CONSTRUCTION PROJECT COORDINATOR, C.N.P. PCP - General 01/27/17 12/09/17 documented as of this encounter
--- OUTSIDE RECORDS SUMMARY | 2022-06-01 09:40 | XMS_ITS | Encounter Summary ---
:1995 Author Organization [facility] Address [address] [place] [address] Care Team Providers Name Role Phone Unavailable Primary Care Provider Unavailable Encounter Details Date Type Department Care Team Description 01/03/2017 Hospital Encounter HX [facility] Francisca Arreola, CORPORATE EVENT PLANNER, C.N.P. [address] [place], [place] [address] (Wo rk) Social History [...] often do you attend oriental orthodox or mormonism Never 10/23/2020 services? 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 She will be due for a PHQ-9 and BO-7 screening in June of 2017. Ordered: OV Est Pt Level 2 - 63035 - 10 min Screening Lipid I cancelled [...] # 1 each, 3 Refill(s), Maintenance, Pharmacy: [facility] venlafaxine, 75 mg = 1 cap(s), PO, Daily, # 90 cap(s), 1 Refill(s), Maintenance, Pharmacy: [facility], Please previous script 01/03/17 Electronically Signed By: HOLLEY ARREOLA UTILITY INSPECTOR On: 01/03/2017 03:33 PM Source: [employer] Document Id: [id number] documented in this encounter Miscellaneous Notes Miscellaneous - Jennifer Medellin L.P.N. - 01/03/2017 3:35 PM CDT Quality Measures [...] MEDELLIN LPN - 01/03/2017 15:35 CDT Source: [employer] Document Id: [id number] CDT!14 Miscellaneous - Holley Arreola RGonzaloNGonzalo - 01/03/2017 3:19 PM CDT Ambulatory Patient Summary [address] [id number] Visit Information Name: DHIRAJ LANDA [facility] Number: [id number] Current Date: 01/03/2017 15:19:20 Physicians Attending Provider: HOLLEY ARREOLA UTILITY INSPECTOR Primary Care Provider: HOLLEY ARREOLA UTILITY INSPECTOR DHIRAJ LANDA has been given the following [...] Shortness of breath / Wheezing Routed to [address] [phone] fluticasone nasal (Flonase 0.05 mg/inh nasal spray) 2 [place](s), Nasal, two times a day levonorgestrel-ethinyl estradiol (Chateal 0.15 mg-30 mcg oral tablet) 1 Tablet(s), Oral, once a day traZODone (traZODone 50 mg oral tablet) 1 Tablet(s), Oral, once a day venlafaxine (Effexor XR 75 mg oral capsule, extended release) 1 cap, Oral, once a day Routed to [address] [address] Stop Taking the Following Medications: [...] of emergency. Electronically Signed By: HOLLEY ARREOLA UTILITY INSPECTOR Signed On:03-JAN-2017 15:19:15 Your Allergies & Intolerances [...] if you dont have one. Go to [email or web address] and click on Create Your Account. Then, follow the directions to complete the online form. Youll be asked for your [facility] number which you can find at the top of this document. Your Goals/Additional instructions: Source: [facility] POWERCHART Document Id: [id number] Miscellaneous - Holley Arreola R.N. - 01/03/2017 3:19 PM CDT Ambulatory Discharge Medication List [address] [id number] Visit Information Name: AILYN LANDAN PAWEL [facility] Number: [id number] Current Date: 01/03/2017 15:19:18 Attending Provider: HOLLEY ARREOLA UTILITY INSPECTOR Primary Care Provider: HOLLEY ARREOLA UTILITY INSPECTOR DHIRAJ LANDA has been given the following [...] Shortness of breath / Wheezing Routed to [facility] [address] [place] [phone] fluticasone nasal (Flonase 0.05 mg/inh nasal spray) 2 London(s), Nasal, two times a day levonorgestrel-ethinyl estradiol (Chateal 0.15 mg-30 mcg oral tablet) 1 Tablet(s), Oral, once a day traZODone (traZODone 50 mg oral tablet) 1 Tablet(s), Oral, once a day venlafaxine (Effexor XR 75 mg oral capsule, extended release) 1 cap, Oral, once a day Routed to [address] [address] Stop Taking the Following Medications: Medication list [...] of emergency. Electronically Signed By: HOLLEY ARREOLA UTILITY INSPECTOR Signed On:03-JAN-2017 15:19:15 Additional Information: Source: [facility] POWERCHART Document Id: [id number] Miscellaneous - Jennifer Medellin LGonzaloP.N. - 01/03/2017 [...] None Behavioral Health Screen/Safety Assmt : No Faith Preference : JENNIFER Jamison LPN - 01/03/2017 15:14 CDT Advance Directive Advanced Directives : No Advance Directive Additional Information : No JENNIFER MEDELLIN LPN - 01/03/2017 15:14 CDT Educ Needs Learning Style Preference Adult Grid Patient : None Family : None JENNIFER MEDELLIN LPN - 01/03/2017 15:14 CDT Source: [facility] Opendisc Document Id: [id number] CDT!37 Miscellaneous - Jennifer Medellin L.P.N. - 01/03/2017 2:52 PM CDT Adult Power Sewing Machine Operator Intake/History Adult Power Sewing Machine Operator Intake/History Entered On: 01/03/2017 14:55 CDT Performed [...] Information Given By : Patient Languages : Romansh Is Patient Female and 13-50 no hysterectomy : Yes Status : Patient denies Are you ? : No JENNIFER MEDELLIN COUNSELOR DORMITORY - 01/03/2017 14:52 CDT Subjective Pain Symptoms [...] Soft drinks Frequency : Occasionally JENNIFER MEDELLIN [facility] - 01/03/2017 14:52 CDT Recreational Drug Use Grid Drug Use : None JENNIFER MEDELLIN LPN 01/03/2017 14:52 CDT Source: [facility] Opendisc Document Id: [id number] CDT!43 documented in this encounter Plan of Treatment Not on filedocumented as of this encounter Visit Diagnoses Not on filedocumented in this encounter Additional Health Concerns Assessment Noted Time PHQ-9 Depression Total Score: 14 11/16/2016 2:30 PM CD T documented as of this encounter
--- OUTSIDE RECORDS SUMMARY | 2022-06-01 09:40 | XMS_ITS | Encounter Summary ---
:1995 Author Organization [facility] Address [address] [place] [address] Care Team Providers Name Role Phone Holley Saucedo APRN, C.N.P. Primary Care Provider [phone] Reason for Visit Physical Therapy (Routine) - Canceled Specialty Diagnoses / Procedures Referred By Contact Refer red To Contact Diagnoses Pain Hip Left Holley Saucedo APRN, [facility] Region Procedures PT Ongoing treatment C.N.P. [address] [place] [address] Referral ID Status Reason Start Date Expiration Date Visits V isits Requested Authorized [id number] Canceled 06/13/2017 12/10/2017 12 99 Encounter Details Date Type Department Care Team Description 06/24/2017 Clinical Support Department of Aspen Saucedo APRN, C.N.P. [address] [place] [address] Pain Hip Left Rehabilitation Services Vandana Au, P.T. in [address] [phone] Social History Tobacco Use Types Packs/Day Years [...] How often do you attend tenriism or zoroastrian Never 10/23/2020 services? 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 - 06/24/2017 9:15 AM CST Physical Therapy Outpatient Treatment Note Referring Provider: Holley Saucedo C.N.P., R.N. Medical Diagnosis: 1. Pain Hip Left - PT Ongoing treatment Payor: Payor: [facility] [employer] / Plan: [facility] / Product Type: Medicaid HMO [...] Time (min): 22 min Functional G-code Worksheet RACT FORESTER documented in this encounter Plan of Treatment Not on filedocumented as of this encounter Visit Diagnoses Diagnosis Pain Hip Left documented in this encounter Additional Health Concerns Assessment Noted Time PHQ-9 Depression Total Score: 18 04/05/2017 2:38 PM CD T documented as of this encounter Care Teams Reinsurance Clerk Relationship Specialty Start Date End Date Holley Saucedo APRN, C.N.P. PCP - General 01/27/17 12/09/17 documented as of this encounter
--- OUTSIDE RECORDS SUMMARY | 2022-06-01 09:40 | XMS_ITS | Encounter Summary ---
:1995 Author Organization [facility] Address [address] [place] [address] Care Team Providers Name Role Phone Holley Saucedo APRN, C.N.P. Primary Care Provider [phone] Reason for Visit Physical Therapy (Routine) - Canceled Specialty Diagnoses / Procedures Referred By Contact Refer red To Contact Diagnoses Pain Hip Left Holley Saucedo APRN, [facility] Region Procedures PT Ongoing treatment C.N.P. [address] [place] [address] Referral ID Status Reason Start Date Expiration Date Visits V isits Requested Authorized [id number] Canceled 06/13/2017 12/10/2017 12 99 Encounter Details Date Type Department Care Team Description 07/12/2017 Clinical Support Department of Aspen Saucedo APRN, C.N.P. [address] [place] [address] Pain Hip Left Rehabilitation Services Vandana Au, P.T. 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 - 07/12/2017 10:00 AM CST Physical Therapy [...] Time (min): 30 min Functional G-code Worksheet AIN FISHING VESSEL documented in this encounter Plan of Treatment Not on filedocumented as of this encounter Visit Diagnoses Diagnosis Pain Hip Left documented in this encounter Additional Health Concerns Assessment Noted Time PHQ-9 Depression Total Score: 17 07/12/2017 10:00 AM C documented as of this encounter Care Teams Production Planning Manager Relationship Specialty Start Date End Date Holley Saucedo, TOBI, C.N.P. PCP - General 01/27/17 12/09/17 documented as of this encounter
--- OUTSIDE RECORDS SUMMARY | 2022-06-01 09:40 | XMS_ITS | Encounter Summary ---
:1995 Author Organization [facility] Address [address] [place] [address] Care Team Providers Name Role Phone Holley Saucedo APRN, C.N.P. Primary Care Provider [phone] Reason for Visit Reason Comments Communication Quantiferon-TB lab Encounter Details Date Type Department Care Team Description 08/16/2017 Clinical Department of Eros Saucedo Family MedicineHolley, (Quantifer on-TB lab) [place] TOBI, C.N.P. Clinic, in [address] [phone] [place], [place] (Work) [phone] Social History Tobacco Use [...] How often do you attend presybeterian or buddhism Never 10/23/2020 services? 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 - 09/09/2017 12:21 PM BAR GAUGER AND LUBRICATOR TENDER Called pt with message from provider. Pt stated understanding and transferred to front dest to schedule lab visit. GAUGER AND LUBRICATOR TENDER Telephone Encounter - Holley Saucedo APRN, C.N.P. - 09/09/2017 11:14 AM BAR GAUGER AND LUBRICATOR TENDER Please call patient and let her know that I ordered the QuantiFERON-TB lab test, so she can come in anytime to complete this screen. Thanks! GAUGER AND LUBRICATOR TENDER Telephone Encounter - Edith Corona R.N. - 09/09/2017 11:05 AM BAR GAUGER AND LUBRICATOR TENDER Please advise if willing to order based on message below. GAUGER AND LUBRICATOR TENDER Telephone Encounter - Felisha Dumont - 09/09/2017 10:34 AM CST Patient called and needs an order for a quanteferon lab draw in place of a TB test. Patient states she dose not have time for the TB test. Patient could also have a T spot. Patient can be reached at [phone] GAUGER AND LUBRICATOR TENDER documented in this encounter Plan of Treatment Not on filedocumented as of this encounter Results QuantiFERON-TB Gold In-Tube for Detection of Latent Tuberculosis (09/12/2017 4:45 PM BAR GAUGER AND LUBRICATOR TENDER) athologist Signature QuantiFERON-TB Negative Negative 09/15/2017 [facility] Gold Result 1:25 PM [facility] Comment: No interferon-gamma response to M. tuber culosis antigens was detected. Infection with M. tubercul osis is unlikely. A negative result alone does not exclude infection with M. tuberculosis. For detailed information regarding test interpretation see: [email or web address] alog/ Clinical+and+Interpretive/18934 TB Ag minus Nil Result 0.01 IU/mL 09/15/2017 1:25 P M [facility] Mitogen minus Nil >10.00 IU/mL 09/15/2017 1:25 PM [facility] Nil Result 0.02 IU/mL 09/15/2017 1:25 PM [facility] Specimen Anatomical Collection Method Collection Time Receive d Time (Source) Location / / Volume Laterality Blood (Blood, 09/12/2017 4:45 PM 09/13/19 18 3:58 Venous) BAR GAUGER AND LUBRICATOR TENDER PM BAR GAUGER AND LUBRICATOR TENDER Narrative [facility] - 09/15/2017 1:25 PM BAR GAUGER AND LUBRICATOR TENDER Specimen Information: Specimen ID: [id number] Specimen Type: Blood Specimen Collection Start Date: 09/12/19 18 ??4:45 PM Specimen Received Date: 09/13/2017 ??3:5 8 PM Specimen ID: [id number] Specimen Type: Blood Specimen Collection Start Date: 09/12/19 18 ??4:45 PM Specimen Received Date: 09/13/2017 ??3:5 8 PM Specimen ID: [id number] Specimen Type: Blood Specimen Collection Start Date: 09/12/19 18 ??4:45 PM Specimen Received Date: 09/13/2017 ??3:5 8 PM Holley Saucedo APRN, C.N.P. LAB MICROBIOLOGY - BLOO D ORDERABLES Performing Organization Address City/State/ZIP Code Phon e Number [facility] [address] [facility] [place], [place] [address] [facility] documented in this encounter Visit Diagnoses Diagnosis Immunity Disorder Screening Exam - Prima ry Immunity Disorder Screening Exam documented in this encounter Additional Health Concerns Assessment Noted Time PHQ-9 Depression Total Score: 17 07/12/2017 10:[address] documented as of this encounter Care Teams Human Resources Training Manager Relationship Specialty Start Date End Date Holley Saucedo APRN, C.N.P. PCP - General 01/27/17 12/09/17 documented as of this encounter
--- OUTSIDE RECORDS SUMMARY | 2022-06-01 09:40 | XMS_ITS | Encounter Summary ---
:1995 Author Organization [facility] Address [address] [place] [address] Care Team Providers Name Role Phone Holley Arreola APRN, C.N.P. Primary Care Provider [phone] Encounter Details Date Type Department Care Team Description 06/13/2017 - Hospital Encounter HX [facility] REHAB Holley Arreola 06/24/2017 CHRISTOPHER Baker APRN, C.N.P. [address] [place], [place] [address] Social History Tobacco Use [...] How often do you attend taoist or adventism Never 10/23/2020 services? 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 - 06/17/2017 2:11 PM CDT [...] total of 30 minutes. Electronically Signed By: VANDANA WADE DPT On: 06/17/2017 02:13 PM Source: eshtery Document Id: [id number] documented in this encounter H&P Notes Vandana Wade P.T. - 06/13/2017 4:12 PM CDT REHAB SNAPSHOT [...] hip pain. We also child working in [employer] in this also made her have less [...] days of work without pain or discomfort. DETENTION FUNCTIONAL GOALS: To be met within 4 [...] evaluation and 10 minutes of therapeutic exercise VANDANA WADE, DPT, CLT Electronically Signed By: VANDANA WADE DPT On: 06/13/2017 04:38 PM Co-Signed By: HOLLEY ARREOLA CNP, RN On: 06/13/2017 08:06 PM Source: [facility] [employer] Document Id: [id number] documented in this encounter Miscellaneous Notes Miscellaneous - Holley Arreola C.N.P., R.N. - 06/15/2017 8:16 PM CDT Provider Letter June 15, 2017 DHIRAJ LANDA [address] [place] [address] [address] [facility] [id number] Dear DHIRAJ LANDA, To whom it may concern: Please allow Dhiraj Landa to sit on a stool/chair related to her work duties to alleviate theneed for squatting or repetitive bending until further notice. Sincerely, HOLLEY ARREOLA [address] [place] [address] Electronic Signature Electronically Signed By: HOLLEY ARREOLA CNP, RN On: June 15, 2017 This document has images extracted. Source: [facility] [employer] Document Id: [id number] Miscellaneous - Conversion, Historical Provider Ser - 06/15/2017 11:02 AM CDT Coding Summary-Paper Based CODING DATE: 06/15/[address] [facility] STATUS: Still Patient/Expected to Rtn Oupt [facility] PAYOR: Medicaid ADMIT DX: REASON FOR VISIT DX: FINAL DX: PRINCIPAL: M25.552 Pain in left hip SECONDARY: PROCEDURES DOCTOR NAME DATE NOTE: The code number assigned matches the documented diagnosis and / or procedure in the patient's chart. However, the narrative phrase printed from the coding software may appear abbreviated, or result in slightly different terminology. Coded By: MIKAYLA ALSTON Date Saved: 06/15/2017 11:02 am Source: [email or web address] Document Id: [id number] Miscellaneous - Vandana Wade P.T. 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 Attempted to leave VM on patient's phone, mailbox is full. Addendum by HOLLEY ARREOLA CNP RN on June 15, 2017 20:19:24 CDT From: HOLLEY ARREOLA CNP, RN To: [place] Family Medicine Nurse Mitesh; Sent: 06/15/2017 20:19:24 CDT Subject: RE: *General Message Please see message below and print letter from 06/15/17. Thanks! Addendum by HOLLEY ARREOLA CNP, RN on June 15, 2017 20:18:48 CDT From: HOLLEY ARREOLA CNP, RN To: VANDANA WADE DPT; Sent: 06/15/2017 20:18:48 CDT Subject: RE: *General Message Sorry! Please ignore this message. Thanks! Addendum by HOLLEY ARREOLA CNP, RN on June 15, 2017 20:18:06 CDT From: HOLLEY ARREOLA CNP, RN To: VANDANA WADE DPT; Sent: 06/15/2017 20:18:06 CDT Subject: RE: *General Message Please print letter on 06/15/17 in chart review related to work restrictions and contact patient to fax or continuous pickling line pickler. Thanks! From: VANDANA WADE DPT To: HOLLEY ARREOLA CNP, RN; [...] her or call her so she can continuous pickling line pickler the restrictions at our next session. Thanks! Vandana Source: [facility] POWERCHART Document Id: [id number] documented in this encounter Plan of Treatment Not on filedocumented as of this encounter Visit Diagnoses Not on filedocumented in this encounter Additional Health Concerns Assessment Noted Time PHQ-9 Depression Total Score: 18 04/05/2017 2:38 PM CD T documented as of this encounter Care Teams Employee'S Representative Relationship Specialty Start Date End Date Holley Arreola, CLAIMS ADJUSTER, C.N.P. PCP - General 01/27/17 12/09/17 documented as of this encounter
--- OUTSIDE RECORDS SUMMARY | 2022-06-01 09:41 | XMS_ITS | Encounter Summary ---
:[address] [facility] Address [address] [place] [address] Care Team Providers Name Role Phone Unavailable Primary Care Provider Unavailable Encounter Details Date Type Department Care Team Description 10/20/2016 Hospital Encounter HX [facility] Ramos Matos, TOBI, C.N.P., D. N.P. [address] [place] [address] (Wo rk) Social History Tobacco [...] How often do you attend islam or faith Never 10/23/2020 services? 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 - 10/20/2016 3:37 PM CST [...] or bumps. She has not tried anything edyd-hfm-wlvamwy for symptoms. No fever or chills. No [...] DRUG & GIFT Orders: Chlamydia Gonorrhoeae Amplified RNA-[place]on CGRNA OV Est Pt Level 3 - 48900 - 15 min Patient was instructed to [...] Electronically Signed By: CHANDNI MATOS APRN, C.N.PGonzalo, Ki.N.P On: 10/21/2016 07:54 AM Source[facility] Document Id: [id number] NESS SALES CONSULTANT documented in this encounter Miscellaneous Notes Miscellaneous - Chandni Matos APRN, Mitchell.N.PGonzalo, D.N.P. - 10/23/2016 7:38 AM BUSINESS SALES CONSULTANT Results Notification Document Contains Addenda Addendum by TONIA HARRIS LPN on October 25, 2016 15:44:26 CDT pt notified. Addendum by TONIA HARRIS LPN on October 23, 2016 08:20:56 BUSINESS SALES CONSULTANT left message for pt to call back clinic From: CHANDNI MATOS APRN C.N.PGonzalo, D.N.P To: [place] Family Medicine Nurse Mark; Sent: 10/23/2016 07:38:22 BUSINESS SALES CONSULTANT Show up: 10/23/2016 07:38:00 BUSINESS SALES CONSULTANT Subject: Results Notification Please notify patient and let her know that her chlamydia and gonorrhea is NEGATIVE. Results: Date Result Name Value Ref Range 10/20/2016 15:15 C trach Amp Src-Easton cervical 10/20/2016 15:15 C trach Amp RNA-[place] Negative (Negative - ) 10/20/2016 15:15 N gonor Amp DNA-[place] Negative (Negative - ) 10/20/2016 15:15 N gonor Amp Src-Correa cervical Source: [facility] POWERCHART Document Id: [id number] Electronically signed by Conversion, [facility] Occupational Health And Safety Manager [id number] at 01/25/2017 5:58 AM CDT Miscellaneous - Chandni Matos APRN, C.N.PGonzalo, D.N.P. - 10/20/2016 5:05 PM BUSINESS SALES CONSULTANT Results Notification Document Contains Addenda Addendum by TONIA HARRIS LPN on October 20, 2016 18:37:27 BUSINESS SALES CONSULTANT pt notified of rresults. From: CHANDNI MATOS APRN, C.N.PGonzalo, D.N.P To: [facility] Family Medicine Nurse Mark; Sent: 10/20/2016 17:05:37 BUSINESS SALES CONSULTANT Show up: 10/20/2016 17:03:00 BUSINESS SALES CONSULTANT Subject: Results Notification Please notify patient that [...] Name MBO POS Vaginosis Panel, DNA Source: [facility] [employer]CHART Document Id: [id number] Electronically signed by Conversion, [facility] Occupational Health And Safety Manager [id number] at 01/25/2017 5:58 AM CDT Miscellaneous - Chandni Matos APRN C.N.PGonzalo, D.N.P. - 10/20/2016 3:24 PM BUSINESS SALES CONSULTANT Ambulatory Patient Summary [address] [id number] Visit Information Name: DHIRAJ LANDA [facility] Number: [id number] Current Date: 10/20/2016 15:24:11 Physicians Attending Provider: CHANDNI MATOS APRN C.N.P., D.N.P Primary Care Provider: AMANDA ARREOLA COMMUNICATIONS INTERN DHIRAJ LANDA PAWEL has been given the [...] nasal (Flonase 0.05 mg/inh nasal spray) 2 Bozman(s), Nasal, two times a day fluticasone-salmeterol (Advair [...] MATOS APRN C.N.PGonzalo, D.N.P Signed On:20-OCT-2016 15:24:03 Your Allergies [...] if you dont have one. Go to [email or web address] and click on Create Your Account. Then, follow the directions to complete the online form. Youll be asked for your [facility] number which you can find at the top of this document. Your Goals/Additional instructions: Source: [facility] POWERCHART Document Id: [id number] NESS SALES CONSULTANT Miscellaneous - Chandni Matos APRN, C.N.P., D.N.P. - 10/20/2016 3:24 PM BUSINESS SALES CONSULTANT Ambulatory Discharge Medication List [address] [id number] Visit Information Name: DHIRAJ LANDA [facility] Number: [id number] Current Date: 10/20/2016 15:24:07 Attending Provider: CHANDNI MATOS APRN C.N.P., D.N.P Primary Care Provider: AMANDA ARREOLA COMMUNICATIONS INTERN DHIRAJ LANDA has been given the following [...] nasal (Flonase 0.05 mg/inh nasal spray) 2 Bozman(s), Nasal, two times a day fluticasone-salmeterol (Advair [...] D.N.P Signed On:20-OCT-2016 15:24:03 Additional Information: Source: [facility] POWERCHART Document Id: [id number] NESS SALES CONSULTANT Miscellaneous - Vinnie Lyman L.P.N. 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 : No VINNIE LYMAN LPN - 10/20/2016 14:57 BUSINESS SALES CONSULTANT Subjective Pain Symptoms : No VINNIE LYMAN LPN - 10/20/2016 14:57 BUSINESS SALES CONSULTANT Dependent Habits Exposure to Tobacco Smoke : Care provider denies smoking in home, Other: former smoker Smoking Status : Former smoker Tobacco 2A : Yes Tobacco Use/Currently Using : No Tobacco Use/Last 30 Days : No Tobacco Use/Last 12 months : No VINNIE LYMAN LPN - 10/20/2016 14:57 BUSINESS SALES CONSULTANT Caffeine Use Grid Caffeine Use : Current Type : Soft drinks Frequency : Occasionally VINNIE LYMAN LPN - 10/20/2016 14:57 BUSINESS SALES CONSULTANT Recreational Drug Use Grid Drug Use : None VINNIE LYMAN LPN - 10/20/2016 14:57 BUSINESS SALES CONSULTANT Source: [facility] [employer] Document Id: [id number] BUSINESS SALES CONSULTANT!38 NESS SALES CONSULTANT documented in this encounter Plan of Treatment Not on filedocumented as of this encounter Procedures Procedure Name Priority Date/Time Associated Diagnosis Comme nts VAGINITIS BATTERY, Routine 10/20/2016 3:28 PM Res ults for this DNA (GENITAL) BUSINESS SALES CONSULTANT procedure are in the results section. N GONOR AMP SRC Routine 10/20/2016 3:15 PM Result s for this BUSINESS SALES CONSULTANT procedure are i n the results section. N GONOR AMP DNA Routine 10/20/2016 3:15 PM Result s for this BUSINESS SALES CONSULTANT procedure are i n the results section. C TRACH AMP SRC Routine 10/20/2016 3:15 PM Result s for this BUSINESS SALES CONSULTANT procedure are i n the results section. C TRACH AMP RNA Routine 10/20/2016 3:15 PM Result s for this BUSINESS SALES CONSULTANT procedure are i n the results section. documented in this encounter Results (ABNORMAL) VAGINITIS BATTERY, DNA (GENITAL) (10/20/2016 3:28 PM BUSINESS SALES CONSULTANT) Component Value Ref Test Analysis [facility] Range Method Time Signature HXVaginitis (POSITIVE) POWERCHART Battery, DNA (Genital) HXFinal Trichomonas POWERCHART vaginalis DNA negative HXFinal Gardnerella POWERCHART vaginalis DNA positive HXFinal Veronica species POWERCHART DNA positive HXFinal Reference: POWERCHART Negative Specimen (Source) Anatomical Collection Method Collection Time Re ceived Time Location / / Volume Laterality Vagina 10/20/2016 3:28 PM BUSINESS SALES CONSULTANT Chandni Matos APRN, C.N.P., D.N.P. LAB HISTORICAL OR DERS Performing Organization Address City/[facility] Code Phon e Number POWERCHART HX-N gonor Amp DNA (10/20/2016 3:15 PM BUSINESS SALES CONSULTANT) athologist Signature HXN gonor Amp Negative POWERCHART DNA-[place] Specimen (Source) Anatomical Collection Method Collection Time Re ceived Time Location / / Volume Laterality 10/20/2016 3:15 PM BUSINESS SALES CONSULTANT Narrative POWERCHART - 10/22/2016 2:47 PM BUSINESS SALES CONSULTANT ADDITIONAL INFORMATION This report is intended for use in clini hernandez monitoring and management of patients. It is not in tended for use in medical-legal applications. Test Performed by: [facility] - [address] [address] Chandni Matos APRN C.N.P., D.N.P. LAB HISTORICAL OR DERS Performing Organization Address City/[facility] Code Phon e Number POWERCHART HX-N gonor Amp Src (10/20/2016 3:15 PM BUSINESS SALES CONSULTANT) athologist Signature HXN gonor Amp cervical POWERCHART Src-[place] Specimen (Source) Anatomical Collection Method Collection Time Re ceived Time Location / / Volume Laterality 10/20/2016 3:15 PM BUSINESS SALES CONSULTANT Chandni Matos APRN, C.N.P., D.N.P. LAB HISTORICAL OR DERS Performing Organization Address City/[facility]/ZIP Code Phon e Number POWERCHART HX-C trach Amp RNA (10/20/2016 3:15 PM BUSINESS SALES CONSULTANT) [facility] Method Time Signature Chlamydia Negative POWERCHART trachomatis amplified RNA Specimen (Source) Anatomical Collection Method Collection Time Re ceived Time Location / / Volume Laterality 10/20/2016 3:15 PM BUSINESS SALES CONSULTANT Narrative POWERCHART - 10/22/2016 2:47 PM BUSINESS SALES CONSULTANT ADDITIONAL INFORMATION This report is intended for use in clini hernandez monitoring and management of patients. It is not in tended for use in medical-legal applications. Chandni Matos APRN, C.N.P., D.N.P. LAB HISTORICAL OR DERS Performing Organization Address City/State/ZIP Code Phon e Number POWERCHART HX-C trach Amp Src (10/20/2016 3:15 PM BUSINESS SALES CONSULTANT) P athologist Signature HXC trach Amp cervical POWERCHART Src-[place] Specimen (Source) Anatomical Collection Method Collection Time Re ceived Time Location / / Volume Laterality 10/20/2016 3:15 PM BUSINESS SALES CONSULTANT Chandni Matos APRN C.N.P., D.N.P. LAB HISTORICAL OR DERS Performing Organization Address City/State/ZIP Code Phon e Number POWERCHART documented in this encounter Visit Diagnoses Not on filedocumented in this encounter
--- OUTSIDE RECORDS SUMMARY | 2022-06-01 09:41 | XMS_ITS | Encounter Summary ---
:1995 Author Organization [facility] Address [address] [place] [address] Care Team Providers Name Role Phone Unavailable Primary Care Provider Unavailable Encounter Details Date Type Department Care Team Description 04/05/2016 Hospital Encounter HX [facility] Francisca Arreola, BOIL OFF WORKER, C.N.P. [address] [place], [place] [address] (Wo rk) Social History [...] How often do you attend yarsanism or mu-ism Never 10/23/2020 services? 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 Ordered: Chlamydia Gonorrhoeae Amplified RNA-Opdyke CGRNA OV Est Pt Prev [facility] 83-87 - [address]9466 General Medical Exam Adult (GME) A Pap smear was completed today. We will send the results through the portal once completed. We discussed screening related to a lipid panel and fasting glucose. She is not fasting today. We will complete fasting lab work in one year. Age appropriate anticipatory guidance was provided. Ordered: OV Est Pt Prev Svc 18-93 - 27845 Need Vaccine (IN) NOS She received her first HPV injection today. She was instructed to return in 2 months for her secondinjection. All questions were answered. She left in no acute distress. Ordered: OV Est Pt Prev Svc 18-15 - 90505 Orders: Thin Prep Screen with HPV Reflex-Opdyke [id number] Electronically Signed By: HOLLEY ARREOLA DATASTAGE CONSULTANT On: 04/05/2016 06:57 PM Source: [employer] Document Id: [id number] documented in this encounter Procedure Notes Consuelo [...] DIA LPN - 05/26/2016 9:43 CDT Source: [employer] Document Id: [id number] CDT!10 documented in this encounter Miscellaneous Notes Miscellaneous - Tami Ceballos - 05/20/2016 10:40 AM CDT Quality Measure / ACT update Document Contains Addenda Addendum by CONSUELO DIA LPN on May 26, 2016 10:06:11 CDT From: CONSUELO DIA LPN ([place] Family Medicine Nurse [place]) To: TAMI CEBALLOS; Sent: 05/26/2016 10:06:11 CDT Subject: RE: Quality Measure / ACT update talked with pt- ACT was done and updated. From: TAMI CEBALLOS To: [place] Family Medicine Nurse [place]; Sent: 05/20/2016 10:40:35 CDT Subject: Quality Measure / ACT update This patient has been screened for Quality Measures and is due for a ACT update. Please reach out tothe patient to update the ACT and emergency visits/hosiptal stays. Last ACT datet: 10/20/2015 Score 16 Last office visit 03/19/2016 Thank you for your help. eHealth Source: [employer] Document Id: [id number] Electronically signed by Conversion, [facility] Senior Ios Developer [id number] at 01/09/2017 2:00 AM CDT Miscellaneous - Holley Arreola, R.N. - 04/13/2016 3:36 PM CDT Normal Results Letter April 13, 2016 DHIRAJ LANDA [address] [facility] [address] Dear DHIRAJ LANDA, The results of your recent Pap smear were negative. If you have questions or concerns, please do nothesitate to call our office. Result Name Current Result Spec Desc-Correa See Comment 04/05/2016 ThPrep Scrn Accn-Opdyke [id number] 04/05/2016 ThPrep Scrn Cyto-Correa See Comment 04/05/2016 ThPrep Scrn Fnl-Opdyke See Comment 04/05/2016 Sincerely, HOLLEY ARREOLA [address] [address] Electronic Signature Electronically Signed By: HOLLEY ARREOLA DATASTAGE CONSULTANT On: April 13, 2016 This document has images extracted. Source: [employer] Document Id: [id number] Electronically signed by Conversion, [facility] Senior Ios Developer [id number] at 01/09/2017 2:00 AM CDT Miscellaneous - Holley Arreola, R.N. - 04/08/2016 4:40 PM CDT Normal Results Letter April 08, 2016 DHIRAJ LANDA [address] [place] [address] Dear DHIRAJ LANDA, I am pleased to report that your results from the following diagnostic test(s) are normal. Please follow up with us as we discussed during your visit or sooner if you have any concerns. If you have questions or concerns, please do not hesitate to call our office. Result Name Current Result Normal Range C trach Amp Src-Opdyke urine 04/05/2016 C trach Amp RNA-Opdyke Negative 04/05/2016 Negative - N gonor Amp DNA-Opdyke Negative 04/05/2016 Negative - N gonor Amp Src-Opdyke urine 04/05/2016 Sincerely, HOLLEY ARREOLA [address] [place] [address] Electronic Signature Electronically Signed By: HOLLEY ARREOLA DATASTAGE CONSULTANT On: April 08, 2016 This document has images extracted. Source: [facility] [employer] Document Id: [id number] Electronically signed by [facility], [facility] Senior Ios Developer [id number] at 01/09/2017 2:00 AM CDT Ramona - Dorian Davenport L.P.N. - 04/05/2016 4:44 PM CDT MnVFC Eligibility MnVFC Eligibility Entered On: 04/05/2016 16:44 CDT Performed On: 04/05/2016 16:44 CDT by DORIAN DAVENPORT LPN MnVFC Eligibility Provided MnVFC eligibility information : No DORIAN DAVENPORT LPN - 04/05/2016 16:44 CDT Source: [facility] [employer] Document Id: [id number] CDT!3 Octaviacellaneous - Dorian Davenport L.P.N. 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 Machine Operator Intake/History Entered On: 04/05/2016 16:30 CDT Performed [...] Body Mass Index : 32.56 kg/m2 DORIAN DAVENPORT LPN - 04/05/2016 16:28 CDT General Info Information Given By : Patient Preferred Communication Mode : Verbal Languages : Zimbabwean Is Patient Female and 13-50 no hysterectomy [...] DAVENPORT LPN - 04/05/2016 16:28 CDT Source: [facility] POWERCHART Document Id: [id number] CDT!44 documented in this encounter Plan of [...] athologist Signature HXN gonor Amp Negative POWERCHART DNA-Opdyke Specimen (Source) Anatomical Collection Method Collection Time Re ceived Time Location / / Volume Laterality 04/05/2016 5:14 PM CDT Narrative POWERCHART - 04/08/2016 3:51 PM CDT ADDITIONAL INFORMATION This report is intended for use in clini hernandez monitoring and management of patients. It is not in tended for use in medical-legal applications. Test Performed by: [facility] - [address] [address] [place]: Cisco Pantoja II, M.D., Ph.D. Holley Arreola APRN C.N.P. LAB HISTORICAL ORDERS Performing Organization Address City/State/ZIP Code Phon e Number POWERCHART HX-N gonor Amp Src (04/05/2016 5:14 PM CDT) P athologist Signature HXN gonor Amp urine POWERCHART Src-Opdyke Specimen (Source) Anatomical Collection Method Collection Time Re ceived Time Location / / Volume Laterality 04/05/2016 5:14 PM CDT Liselle M Lewis BOIL OFF WORKER, C.N.P. LAB HISTORICAL ORDERS Performing Organization Address City/State/ZIP Code Phon e Number POWERCHART HX-C trach Amp RNA (04/05/2016 5:14 PM CDT) [facility] Method Time Signature Chlamydia Negative POWERCHART trachomatis [...] C.N.P. LAB HISTORICAL ORDERS Performing Organization Address City/[facility]/ZIP Code Phon e Number POWERCHART HX-C trach Amp Src (04/05/2016 5:14 PM CDT) athologist Signature HXC trach Amp urine POWERCHART Src-Correa Specimen (Source) Anatomical Collection Method Collection Time Re ceived Time Location / / Volume Laterality 04/05/2016 5:14 PM CDT Holley Arreola APRN, C.N.P. LAB HISTORICAL ORDERS Performing Organization Address City/[facility]/ZIP Code Phon e Number POWERCHART Pathology ThinPrep Screen HPV Reflex (04/05/2016 4:47 PM CDT) [facility] Method Time Signature Interpretation [id number] POWERCHART HXThPrep Scrn See Comment POWERCHART Fnl-Correa Comment: A. ??ThinPrep Pap Test Screen (Cervical/ Endocervical HPV Reflex): Satisfactory for evaluation. Negative for intraepithelial lesion or m alignancy. Fungal organisms morphologically consist ent with Veronica species HXThPrep Scrn Cyto-Opdyke See Comment KAYLA RCHART Comment: Report electronically signed by KAT Cifuentes(ASCP) 04/13/2016 08:18 Interpreted by: KAT Cifuentes(ASCP) HX Spec Desc-Correa See Comment POWERCHART Comment: A. ??ThinPrep Pap Test Screen (Cervical/ Endocervical HPV Reflex): Received clear specimen in ThinPrep vial . Test Performed by: [place] [address] [place]: Cisco Pantoja II, M.D., Ph.D. Specimen (Source) Anatomical Collection Method Collection Time Re ceived Time Location / / Volume Laterality Cervix/Endocervix 04/05/2016 4:47 PM CDT Holley Arreola APRN, C.N.P. LAB PAP PATHDX ORDERABL ES Performing Organization Address City/State/ZIP Code Phon e Number POWERCHART documented in this encounter Visit Diagnoses Not on filedocumented in this encounter
--- OUTSIDE RECORDS SUMMARY | 2022-06-01 09:41 | XMS_ITS | Encounter Summary ---
:1995 Author Organization [facility] Address [address] [place] [address] Care Team Providers Name Role Phone Unavailable Primary Care Provider Unavailable Encounter Details Date Type Department Care Team Description 11/18/2014 Hospital Encounter [facility] Karlie Mark M.D. [address] [place], [place] [address] (Wo rk) Social History [...] How often do you attend adventist or sabianist Never 10/23/2020 services? 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 - 11/18/2014 12:16 PM CDT [id number] Patient is coming back for followup. She [...] OLMEDO MD On: 11/25/2014 10:33 AM Source: [facility] MH[employer]OLBEYNONRADSYS Document Id: [id number] documented in this encounter Miscellaneous Notes Miscellaneous - Teresa Parkinson, L.P.N. - 11/18/2014 12:25 PM CDT Adult Automotive Service Consultant Intake/History Adult Automotive Service Consultant Intake/History Entered On: 11/18/2014 12:29 CDT Performed [...] : Other: no wt taken TERESA PARKINSON LPN - 11/18/2014 12:25 CDT General Info Languages : Mozambican Is Patient Female and 13-50 no hysterectomy : Yes Status : Patient denies Are you ? : No TERESA PARKINSON LPN - 11/18/2014 12:25 CDT Subjective Pain Symptoms : No TERESA PARKINSON LPN - 11/18/2014 12:25 CDT Dependent Habits Tobacco Use/Currently Using : No Exposure to Tobacco Smoke : Care provider denies smoking in home, Other: former smoker Smoking Status : Never smoker TERESA PARKINSON LPN - 11/18/2014 12:25 CDT Tobacco Use Grid Last Use : never TERESA PARKINSON LPN - 11/18/2014 12:25 CDT Alcohol Use : No TERESA PARKINSON INSURANCE FOLLOW UP REP - 11/18/2014 12:25 CDT Caffeine Use Grid Caffeine Use : Current Type : Soft drinks Frequency : Occasionally TERESA PARKINSON LPN - 11/18/2014 12:25 CDT Recreational Drug Use Grid Drug Use : None TERESA PARKINSON LPN - 11/18/2014 12:25 CDT ID Screen Drug Resistant Organism : No Travel Within Last 21 Days : No Contact with someone with Ebola : No TERESA PARKINSON LPN - 11/18/2014 12:25 CDT Source: [employer] Document Id: [id number] CDT!44 documented in this encounter Plan of Treatment Not on filedocumented as of this encounter Visit Diagnoses Not on filedocumented in this encounter
--- OUTSIDE RECORDS SUMMARY | 2022-06-01 09:41 | XMS_ITS | Encounter Summary ---
:1995 Author Organization [facility] Address [address] [place] [address] Care Team Providers Name Role Phone Unavailable Primary Care Provider Unavailable Encounter Details Date Type Department Care Team Description 07/31/2014 Hospital Encounter [facility] Maureen Lua, Ramos THOMASN, C.N.P. [address] [place] [phone] (Wo rk) Social History Tobacco [...] How often do you attend sabianism or buddhist Never 10/23/2020 services? 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 - 07/31/2014 4:15 PM CST Depo-Provera Administration Depo-Provera Administration Entered On: 07/31/2014 16:16 RESIDENTIAL COORDINATOR Performed On: 07/31/2014 16:15 RESIDENTIAL COORDINATOR by NENA OCAMPO LPN Depo-Provera Administration Return appointment : 10/30/2014 CDT Depo-Provera Administration Comments : Lot: [id number] Expires: 01/2017 NENA OCAMPO LPN - 07/31/2014 16:15 RESIDENTIAL COORDINATOR Source: [facility] POWERCHART Document Id: [id number] RESIDENTIAL COORDINATOR!4 DENTIAL COORDINATOR documented in this encounter Plan of Treatment Not on filedocumented as of this encounter Visit Diagnoses Not on filedocumented in this encounter
--- OUTSIDE RECORDS SUMMARY | 2022-06-01 09:41 | XMS_ITS | Encounter Summary ---
:1995 Author Organization [facility] Address [address] [place] [address] Care Team Providers Name Role Phone Unavailable Primary Care Provider Unavailable Encounter Details Date Type Department Care Team Description 11/16/2016 Hospital Encounter HX [facility] [place] Francisca Arreola, WRAPPER STRIPPER, C.N.P. [address] [place], [place] [address] (Wo rk) Social History [...] How often do you attend mandaeism or sikhism Never 10/23/2020 services? 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 I ordered vaginal clindamycin to be taken as directed for symptom management. Ordered: OV Est Pt Level 4 - 28214 - 25 min Vaginitis Panel, DNA (Genital) Vaginal Itching See #2 above. All questions were answered. He left in no acute distress. A total of 25 minutes with20 minutes used for counseling and coordination of care. Ordered: OV Est Pt Level 4 - 11814 - 25 min Vaginitis Panel, DNA (Genital) Orders: venlafaxine, 75 mg = 1 cap(s), PO, Daily, # 30 cap(s), 2 Refill(s), Maintenance, Pharmacy: [facility] Electron[facility] Signed By: HOLLEY ARREOLA NP On: 11/28/2016 10:24 PM Source: [facility] [employer]CHART Document Id: [id number] documented in this encounter Miscellaneous Notes Miscellaneous - Tami Ceballos - 12/21/2016 2:27 PM CDT Health Maintenance Reminder December 21, 2016 DHIRAJ LANDA [address] [facility] [address] Dear DHIRAJ LANDA, We have developed a [...] visit with us more convenient. Please call [phone] to schedule services that are past due or that may shortly become due (thank you if you have already done so). We will follow up in three to six months should you have more services to schedule at that time. If you have already received any of the listed past due or upcoming services outside of [facility], please call [phone] to add them to your medical record. You may want to consider contacting your health insurance company to make sure these services are covered and find out if there will be any hyd-ga-srldjc expense. If you have any questions about the services listed above, or if you are no longer receiving care from [facility], please contact us at [phone]. Thank you for partnering to provide you with the best care possible. Thank you for choosing us, Holley Arreola R.N. and the [facility], for your health care needs! Sincerely, TAMI CEBALLOS Electronic Signature Electronically Signed By: TAMI CEBALLOS On: December 21, 2016 This document has images extracted. Source: [facility] POWERCHART Document Id: [id number] Miscellaneous - Dennys Nelson - 11/22/2016 3:49 PM CDT PA Clindamycin From: DENNYS NELSON ([facility] Farrowing Manager/Referrals) To: DENNYS NELSON; Sent: 11/22/2016 15:49:17 CDT Subject: PA Clindamycin PA submitted on [facility] PA approved 11/19/2016-12/23/2016 Source: [facility] [employer] Document Id: [id number] Miscellaneous - Holley Arreola R.N. - 11/17/2016 [...] voice mail with the phone number of [phone]. I did, then call her back and got a voice mail. I then left a very generic message that there was a prescription awaiting her filler picker at [facility] and instructed her to call back should she want specifics. Addendum by CONSUELO DIA LPN on November 17, 2016 11:41:25 CDT called and lvm to contact us regarding message below. From: HOLLEY ARREOLA INSPECTION CLERK To: [facility] Family Medicine Nurse Mitesh; Sent: 11/17/2016 11:26:59 CDT Show up: 11/17/2016 11:26:00 CDT Subject: Results Notification Please call patient and let her know that her vaginal panel was positive for bacteria, but no fungalinfection. I sent a script for clindamycin vaginal application to [facility]. Thanks! Results: Date Result Type Ind Result Name MBO POS Vaginosis Panel, DNA Source: [facility] [employer] Document Id: [id number] Consuelo Diaz L.PChristy - 11/16/2016 2:30 PM CDT BO-7 BO-7 [...] DIA LPN - 11/16/2016 14:30 CDT Source: [facility] [employer] Document Id: [id number] CDT!11 Consuelo Diaz L.PChristy - 11/16/2016 2:30 PM CDT PHQ-9 PHQ-9 [...] DIA LPN - 11/16/2016 14:30 CDT Source: [employer] Document Id: [id number] CDT!13 Miscellaneous - Holley Arreola R.N. - 11/16/2016 1:56 PM CDT Ambulatory Patient Summary [address] [phone] Visit Information Name: SYEDA DHIRAJ PAWEL [facility] Number: [id number] Current Date: 11/16/2016 13:56:55 Physicians Attending Provider: HOLLEY ARREOLA NP Primary Care Provider: HOLLEY ARREOLA INSPECTION CLERK DHIRAJ LANDA has been given the following [...] nasal (Flonase 0.05 mg/inh nasal spray) 2 Kingsley(s), Nasal, two times a day fluticasone-salmeterol (Advair [...] day This is a CHANGE Routed to [address] [address] Stop Taking the Following Medications: Medication list [...] of emergency. Electronically Signed By: HOLLEY ARREOLA INSPECTION CLERK Signed On:16-NOV-2016 13:56:50 Your Allergies & Intolerances [...] you dont have one. Go to [email or web address] and click on Create Your Account. Then, follow the directions to complete the online form. Youll be asked for your [facility] number which you can find at the top of this document. Your Goals/Additional instructions: Source: [facility] POWERCHART Document Id: [id number] Miscellaneous - Holley Arreola R.N. - 11/16/2016 1:56 PM CDT Ambulatory Discharge Medication List [address] [place] [phone] Visit Information Name: DHIRAJ LANDA [facility] Number: [id number] Current Date: 11/16/2016 13:56:54 Attending Provider: HOLLEY ARREOLA INSPECTION CLERK Primary Care Provider: HOLLEY ARREOLA INSPECTION CLERK DHIRAJ LANDA has been given the following [...] nasal (Flonase 0.05 mg/inh nasal spray) 2 Kingsley(s), Nasal, two times a day fluticasone-salmeterol (Advair [...] day This is a CHANGE Routed to [address] [place] [address] Stop Taking the Following Medications: Medication list [...] of emergency. Electronically Signed By: HOLLEY ARREOLA INSPECTION CLERK Signed On:16-NOV-2016 13:56:50 Additional Information: Source: [facility] POWERCHART Document Id: [id number] Miscellaneous - Victoriano Vicente LGonzaloP.N. - 11/16/2016 1:21 PM CDT Adult Call Specialist Intake/History Adult Call Specialist Intake/History Entered On: 11/16/2016 13:26 CDT Performed [...] Information Given By : Patient Languages : Moldovan Is Patient Female and 13-50 no hysterectomy [...] 2015 Alcohol Use : Yes VICTORIANO VICENTE - 11/16/2016 13:21 CDT Caffeine Use Grid Caffeine Use : Current Type : Soft drinks Frequency : Occasionally VICTORIANO VICENTE - 11/16/2016 13:21 CDT Recreational Drug Use Grid Drug Use : None VICTORIANO VICENTE - 11/16/2016 13:21 CDT Source: [facility] POWERCHART Document Id: [id number] CDT!40 documented in this encounter Plan of [...] Component Value Ref Test Analysis Performed At [facility] gist Range Method Time Signature HXVaginitis [...]
--- OUTSIDE RECORDS SUMMARY | 2022-06-01 09:41 | XMS_ITS | Encounter Summary ---
:1995 Author Organization [facility] Address [address] [place] [address] Care Team Providers Name Role Phone Unavailable Primary Care Provider Unavailable Encounter Details Date Type Department Care Team Description 03/19/2016 Hospital Encounter HX [facility] [place] Francisca Arreola, WINCH OPERATOR, C.N.P. [address] [place], [place] [address] (Wo rk) Social History [...] How often do you attend jain or jew Never 10/23/2020 services? 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 She reports her new job is going [...] # 30 cap(s), 1 Refill(s), Maintenance, Pharmacy: [facility] Electronically Signed By: HOLLEY ARREOLA CARD PLAYER On: 03/21/2016 08:29 PM Source: [facility] POWERCHART Document Id: [id number] documented in this encounter Miscellaneous Notes Miscellaneous - Carlee Dash, L.P.N. - 03/19/2016 3:34 PM CDT Adult Litigation Paralegal Intake/History Adult Litigation Paralegal Intake/History Entered On: 03/19/2016 15:36 CDT Performed On: 03/19/2016 15:34 CDT by CARLEE DASH MARKER MACHINE, RT Intake Chief Complaint : F/u medications. [...] to: 5 ft 5 inch(es), 65 inch(es)) SETH CARLEE Baker LPN, RT - 03/19/2016 15:34 CDT General Info Languages : Angolan Is Patient Female and 13-50 no hysterectomy : Yes Status : Patient denies Are you ? : No SETHELIUDHEATHER Baker LPN, RT - 03/19/2016 15:34 CDT Subjective [...] LPN, RT - 03/19/2016 15:34 CDT [facility] Document Id: [id number] CDT!34 documented in this encounter Plan of Treatment Not on filedocumented as of this encounter Visit Diagnoses Not on filedocumented in this encounter
--- OUTSIDE RECORDS SUMMARY | 2022-06-01 09:41 | XMS_ITS | Encounter Summary ---
:1995 Author Organization [facility] Address [address] [place] [address] Care Team Providers Name Role Phone Unavailable Primary Care Provider Unavailable Encounter Details Date Type Department Care Team Description 11/04/2014 Hospital Encounter HX [facility] FAMILY Karlie Mark M.D. [address] [place], [place] [address] (Wo rk) Social History [...] often do you attend jehovah's witness or rastafarian Never 10/23/2020 services? 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 VITAMIN) tablet prenat.vits,hernadnez,min-iro Take 1 tablet by mouth 0 08/20/2013 02/19/2019 n-folic ( daily. VITAMIN) tablet documented as of this encounter Progress Notes Ramirez Olmedo M.D. - 11/04/2014 3:20 PM CDT [id number] The patient works in our [employer] department. She said that she has been [...] OLMEDO MD On: 11/07/2014 08:59 AM Source: [facility] MHSDOLBEYNONRADSYS Document Id: [id number] documented in this encounter Miscellaneous Notes Miscellaneous - Mellisa Mac R.N. - 11/06/2014 9:40 AM CDT Normal Results Letter 06 November 2014 DHIRAJ LANDA [id number] [address] [facility] [id number] Dear DHIRAJ LANDA, I am pleased to [...] 2.21 11/04/2014 2.04 12/28/2013 0.90 - 2.90 Jack Absolute (x10(9)/L) 0.39 11/04/2014 0.78 12/28/2013 0.30 - 0.90 Eos Absolute (x10(9)/L) 0.10 11/04/2014 0.13 12/28/2013 0.05 - 0.50 Baso Absolute (x10(9)/L) 0.02 11/04/2014 0.03 12/28/2013 0.00 - 0.30 Differential? Auto 11/04/2014 Sincerely, LAUREN CASILLAS Electronic Signature Electronically Signed By: LAUREN CASILLAS RN On: 06 November 2014 This document has images extracted. Source: [facility] POWERCHART Document Id: [id number] Electronically signed by Conversion, [facility] Head Of Cytogenetics [id number] at 01/10/2017 11:35 AM CDT Miscellaneous - Teresa Parkinson, L.P.N. 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 : No [facility] - 11/04/2014 15:39 CDT Subjective Pain Symptoms : No TER[facility] - 11/04/2014 15:39 CDT Dependent Habits Tobacco Use/Currently Using : Yes Exposure to Tobacco Smoke : Care provider denies smoking in home, Other: former smoker Smoking Status : Light tobacco smoker TER[facility]A [facility] - 11/04/2014 15:39 CDT Tobacco Use Grid Last Use : never [facility] - 11/04/2014 15:39 CDT Alcohol Use : No TER[facility] P[facility]SON [facility] 11/04/2014 15:39 CDT Caffeine Use Grid Caffeine Use : Current Type : Soft drinks Frequency : Occasionally TERESA PARKIN[facility] - 11/04/2014 15:39 CDT Recreational Drug Use Grid Drug Use : None [facility] 11/04/2014 15:39 CDT ID Screen Drug Resistant Organism : No Travel Within Last 21 Days : No Contact with someone with Ebola : No TER[facility]A PARK[facility] - 11/04/2014 15:39 CDT [facility] Document Id: [id number] CDT!48 documented in this encounter Plan of [...] Results Automated Differential (11/04/2014 4:48 PM CDT) P athologist Signature Absolute 3.57 1.70 - POWERCHART [...] M.D. LAB BLOOD ADD-ON Performing Organization Address [facility] Phon e Number POWERCHART CBC with Differential (11/04/2014 4:48 PM CDT) athologist Signature Leukocytes 6.3 3.4 - 10.5 POWERCHART X109L Erythrocytes 4.68 3.90 - POWERCHART 5.03 B6166V Hemoglobin 13.0 12.0 - POWERCHART 15.5 GDL [...] M.D. LAB BLOOD ADD-ON Performing Organization Address City/[facility] Phon e Number POWERCHART (ABNORMAL) CMP (Comprehensive Metabolic Panel) (11/04/2014 4:48 PM CDT) [facility] Method Time Signature Anion Gap [...] POWERCHART GDL HXeGFR (MDRD) >60 >=60 POWERCHART [id number] 2 eGFR Black/ >60 >=60 POWERCHART Niuean [id number] 2 Specimen (Source) Anatomical Collection Method Collection [...]
--- OUTSIDE RECORDS SUMMARY | 2022-06-01 09:41 | XMS_ITS | Encounter Summary ---
:1995 Author Organization [facility] Address [address] [place] [address] Care Team Providers Name Role Phone Unavailable Primary Care Provider Unavailable Encounter Details Date Type Department Care Team Description 08/15/[address] [facility] ED Ramsey Kahn M.D. [address] [place], [place] [address] (Wo rk) Social History [...] How often do you attend hindu or yarsani Never 10/23/2020 services? 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 Marital Status [id number] Reason UC - Sinus Pain or Congestion; Sinus congestion Specialty Enc Type Emergency Med Service Emergency Medicine Referred by [facility] ED Discharge 08/15/2016 4:24 PM Tracking Id [id number] Checkout 08/15/2016 4:24 PM Checkin 08/15/2016 3:43 PM Acuity 5 -Non Urgent Dispo Type * Discharged to Home or Self Care Arrival 08/15/2016 3:43 PM Reg Status Complete LOS 000 00:41 Address: [address] [address] Comment: PROVIDER INFORMATION Provider Role Provider Contact Time RAJESH KAHN MD ED Provider 08/15/16 15:57 SHIRLEY MARSH ENROLLMENT SPECIALIST Nurse 08/15/16 16:05 DIAGNOSIS Dependence (Tobacco) Nicotine; Sinusitis Acute NOS Comment: PATIENT EDUCATION INFORMATION Instructions: Acute Sinusitis Follow up: With: Address: When: AMANDA ARREOLA [address] [place] [address] [facility] () Within As Needed Source: [facility] POWERCHART Document Id: [id number] M TABLE ATTENDANT Shirley Marsh R.N. - 08/15/2016 4:24 PM CST ED Discharge Instructions [address] [address] Name: DHIRAJ LANDA Date of : 1995 12:00 AM Visit Date: 08/15/2016 3:43 PM [facility] Number: [id number] Address: [address] [facility] [facility] [address] Primary Care Provider: AMANDA ARREOLA NP IMPORTANT: [facility] in [place] would like to thank you for allowing us to assist you with your healthcare needs. The following includes patient education materials and informationregarding your injury/illness. Diagnosis: Dependence (Tobacco) Nicotine; Sinusitis Acute NOS Follow-Up Instructions: With: Address: When: AMANDA ARREOLA [address] [place] [address] [place] [address] Business (1) Within As Needed Your Upcoming [...] Take ibuprofen or Aleve for pain. ?? [id number] [facility], [address] [place] [address], [place] [address]. All rights reserved. This information is not [...] you dont have one. Go to [email or web address] and click on Create Your Account. Then, follow the directions to complete the online form. Youll be asked for your [facility] number which you can find [...] arrange a ride home with a responsible libertarian. I, DHIRAJ LANDA , or responsible libertarian have received this information and my questions have been answered. I have discussed any challenges I see with this plan with the nurse or physician. Patient Signature or Responsible Green Party/Relationship Date Time Provider Signature Date Time [...] arrange a ride home with a responsible libertarian. I, DHIRAJ LANDA , or responsible libertarian have received this information and my questions have been answered. I have discussed any challenges I see with this plan with the nurse or physician. Patient Signature or Responsible Green Party/Relationship Date Time Provider Signature Date Time This document has images extracted. Please consider using [employer] for all your patient education needs. Source: [facility] POWERCHART Document Id: [id number] M TABLE ATTENDANT documented in this encounter Medications at Time [...] Note : Chief Complaint Description 08/15/2016 15:48 STEAM TABLE ATTENDANT Chief Complaint Description presents with sinus congestion [...] profile not seen on sono: f/u ordered ([id number]): Onset on 06/06/2013 at 18 years. Resolved on 12/27/2013 at 18 years. Otitis Media Acute NOS (127910224): Resolved. Pneumonia NOS (655238470): Resolved. Varicella Zoster (600415343): Resolved. Vaginosis Bacterial (616.10): Resolved. 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 Physical Examination Vital Signs: Vital Signs 08/15/2016 15:48 STEAM TABLE ATTENDANT Temperature Core 36.8 DegC Peripheral Pulse Rate [...] KAHN MD On: 08/15/2016 04:29 PM [facility] Document Id: [id number]} M TABLE ATTENDANT Shirley Marsh RGonzaloNGonzalo - 08/15/2016 4:14 PM CST ED Pain Assessment ED Pain Assessment Entered On: 08/15/2016 16:14 STEAM TABLE ATTENDANT Performed On: 08/15/2016 16:14 STEAM TABLE ATTENDANT by SHIRLEY MARSH RN Pain Assessment Pain Symptoms : Yes SHIRLEY MARSH RN - 08/15/2016 16:14 STEAM TABLE ATTENDANT [facility] Document Id: [id number] STEAM TABLE ATTENDANT!3 M TABLE ATTENDANT Shirley Marsh R.N. - 08/15/2016 4:14 PM CST ED Disposition Summary ED Disposition Summary Entered On: 08/15/2016 16:14 STEAM TABLE ATTENDANT Performed On: 08/15/2016 16:14 STEAM TABLE ATTENDANT by SHIRLEY MARSH ENROLLMENT SPECIALIST Disposition Summary Present in Room During Exam/Procedure : Alone Mode of Discharge : Ambulatory Transportation : Private vehicle Printed Discharge Instructions Given to Patient : Yes SHIRLEY MARSH RN - 08/15/2016 16:14 STEAM TABLE ATTENDANT Source: [facility] [employer] Document Id: [id number] STEAM TABLE ATTENDANT!6 M TABLE ATTENDANT Shirley Marsh R.N. - 08/15/2016 4:05 PM CST ED Primary Assessment Document Has Been Updated ED Primary Assessment Entered On: 08/15/2016 16:06 STEAM TABLE ATTENDANT Performed On: 08/15/2016 16:05 STEAM TABLE ATTENDANT by SHIRLEY MARSH RN Reason For Visit (As Of: 08/15/2016 16:06:38 STEAM TABLE ATTENDANT) Problems(Active) Asthma NOS (493.90) (ICD-9-CM :493.90 ) [...] Medical ; Code: F32.9 ; Contributor System: Bubble [employer] Balm ; Last Updated: 06/20/2015 9:35 STEAM TABLE ATTENDANT ; Life Cycle Status: Active ; Responsible Provider: ELBA, LISELLE M OBJECT ORIENTED PROGRAMMER; Vocabulary: ICD-10-CM Hypertension HTN Gestational (PIH) Delivered (ICD-9-CM :642.31 ) Name of Problem: Hypertension HTN Gestational (PIH) Delivered ; Recorder: LORY VILLA MD; Confirmation: Confirmed ; Classification:Medical ; Code: 642.31 ; Contributor System: [employer] ; Last Updated: 12/27/2013 19:03 CDT ; Life Cycle Date: 12/27/2013 ; Life Cycle Status: Active ; Vocabulary: ICD-9-CM Diagnoses(Active) UC - Sinus Pain or Congestion Date: 08/15/2016 ; Diagnosis Type: Reason For Visit ; Confirmation: Complaint of ; Clinical Dx: UC - Sinus Pain or Congestion ; Classification: Medical ; Clinical Service:Emergency medicine ; Code: PNED ; Probability: 0 ; Diagnosis Code: [id number] Triage Mode of Arrival ED : Private vehicle Track : Medical Languages : Yoruba Treatments Prior to Arrival : None Are you ? : No Is Patient Female and 13-50 no hysterectomy : Yes Status : Patient denies SHIRLEY MARSH RN - 08/15/2016 16:05 STEAM TABLE ATTENDANT Pain Assessment Pain Symptoms : Yes SHIRLEY MARSH RN - 08/15/2016 16:05 STEAM TABLE ATTENDANT Respiratory Airway : Patent Respirations : Unlabored Respiratory Pattern : Regular SHIRLEY MARSH RN - 08/15/2016 16:05 STEAM TABLE ATTENDANT Cardiovascular Heart Rhythm : Regular Skin Color : Normal for ethnicity Skin Description : Dry Skin Temperature : Warm SHIRLEY MARSH RN - 08/15/2016 16:05 STEAM TABLE ATTENDANT Neurological Last Well Time Known : Not applicable Level of Consciousness : Alert Orientation : Oriented x 3 Characteristics of Speech : Appropriate for age SHIRLEY MARSH RN - 08/15/2016 16:05 STEAM TABLE ATTENDANT ED Psychosocial Affect/Behavior : Calm, Cooperative, Appropriate Domestic Abuse Concerns : None Behavioral Health Screen/Safety Assmt : No SHIRLEY MARSH RN - 08/15/2016 16:05 STEAM TABLE ATTENDANT Gastrointestinal Nutrition ED : Adequate SHIRLEY MARSH RN - 08/15/2016 16:05 STEAM TABLE ATTENDANT Musculoskeletal Fall Prevention Education Provided : SHIRLEY SOTELO RN - 08/15/2016 16:05 STEAM TABLE ATTENDANT Social Habits Exposure to Tobacco Smoke : Care provider denies smoking in home, Other: former smoker Smoking Status : Never smoker Tobacco 2A : No Tobacco Use/Currently Using : No Tobacco Use/Last 30 Days : No Tobacco Use/Last 12 months : No SHIRLEY MARSH RN - 08/15/2016 16:05 STEAM TABLE ATTENDANT Alcohol Use Grid Alcohol Use : No SHIRLEY MARSH RN - 08/15/2016 16:05 STEAM TABLE ATTENDANT Recreational Drug Use Grid Drug Use : None SHIRLEY MARSH RN - 08/15/2016 16:05 STEAM TABLE ATTENDANT Source: [facility] [employer] InteractiveCHART Document Id: [id number] STEAM TABLE ATTENDANT!46 M TABLE ATTENDANT Shirley Marsh R.N. - 08/15/2016 3:48 PM CST ED Triage Assessment Document Has Been Updated ED Triage Assessment Entered On: 08/15/2016 15:50 STEAM TABLE ATTENDANT Performed On: 08/15/2016 15:48 STEAM TABLE ATTENDANT by SHIRLEY MARSH RN Reason For Visit (As Of: 08/15/2016 15:50:20 STEAM TABLE ATTENDANT) Problems(Active) Asthma NOS (493.90) (ICD-9-CM :493.90 ) [...] Medical ; Code: F32.9 ; Contributor System: [employer] ; Last Updated: 06/20/2015 9:35 STEAM TABLE ATTENDANT ; Life Cycle Status: Active ; Responsible Provider: AMANDA ARREOLA NP; Vocabulary: ICD-10-CM Hypertension HTN Gestational (PIH) Delivered (ICD-9-CM :642.31 ) Name of Problem: Hypertension HTN Gestational (PIH) Delivered ; Recorder: LORY VILLA MD; Confirmation: Confirmed ; Classification:Medical ; Code: 642.31 ; Contributor System: PowerChart ; Last Updated: 12/27/2013 19:03 CDT ; Life Cycle Date: 12/27/2013 ; Life Cycle Status: Active ; Vocabulary: ICD-9-CM Diagnoses(Active) UC - Sinus Pain or Congestion Date: 08/15/2016 ; Diagnosis Type: Reason For Visit ; Confirmation: Complaint of ; Clinical Dx: UC - Sinus Pain or Congestion ; Classification: Medical ; Clinical Service:Emergency medicine ; Code: PNED ; Probability: 0 ; Diagnosis Code: [id number] Triage Chief Complaint Description : presents with sinus congestion for 3 days Information Given By : Patient Present in Room During Exam/Procedure : Alone Mode of Arrival ED : Private vehicle Track : Medical Languages : Yoruba Patient Informed of Triage Location : Emergency department Vital Signs Assessed : Yes Treatments Prior to Arrival : None Are you ? : No Is Patient Female and 13-50 no hysterectomy : Yes Status : Patient denies SHIRLEY MARSH RN - 08/15/2016 15:48 STEAM TABLE ATTENDANT Vital Signs Temperature Core : 36.8 DegC(Converted to: 98.2 DegF) Peripheral Pulse Rate : 78 /min Respiratory Rate : 16 /min Systolic Blood Pressure : 130 mmHg Diastolic Blood Pressure : 84 mmHg NIBP Mean : 99 mmHg BP Location : Left upper extremity SpO2 : 98 % Oxygen Therapy : Room air SHIRLEY MARSH RN - 08/15/2016 15:48 STEAM TABLE ATTENDANT Pain Assessment Pain Symptoms : Yes SHIRLEY MARSH RN - 08/15/2016 15:48 STEAM TABLE ATTENDANT Pain Scale Pain Scale Verbal 0-10 : Open SHIRLEY MARSH RN - 08/15/2016 15:48 STEAM TABLE ATTENDANT Pain Pain Assessment Grid Pain 1 Location : Head Laterality : Bilateral Intensity : 6 SHIRLEY MARSH RN - 08/15/2016 15:48 STEAM TABLE ATTENDANT ED Physician Notification Time ED Physician Notification Time : 08/15/2016 15:50 STEAM TABLE ATTENDANT SHRILEY MARSH RN - 08/15/2016 15:48 STEAM TABLE ATTENDANT RAMA DCP GENERIC CODE Tracking Acuity : 5 -Non Urgent Tracking Group : [facility] ED SHIRLEY MARSH RN - 08/15/2016 15:48 STEAM TABLE ATTENDANT Allergy (As Of: 08/15/2016 15:50:20 STEAM TABLE ATTENDANT) Allergies (Active) Suprax Estimated Onset Date: <not entered> 06/01/2013 ; Reactions: Unknown ; Comments: Comment1: Unknown reaction as a child ; Created By: SKY CUMMINS MD; Reaction Status: Active ; Category: Drug ; Substance: Suprax ; Type: Allergy ; Updated By: SKY CUMMINS MD; Source: Paper Chart/Abstracting ; Reviewed Date: 08/15/2016 15:50 STEAM TABLE ATTENDANT ID Screen Drug Resistant Organism : No Travel Within Last 21 Days : No Contact with someone with Ebola : No SHIRLEY MARSH RN - 08/15/2016 15:48 STEAM TABLE ATTENDANT Immunizations Influenza : None SHIRLEY MARSH RN - 08/15/2016 15:48 STEAM TABLE ATTENDANT [facility] Document Id: [id number] STEAM TABLE ATTENDANT!46 M TABLE ATTENDANT documented in this encounter Miscellaneous Notes Miscellaneous - Conversion, Historical Provider Ser - 08/15/2016 4:24 PM STEAM TABLE ATTENDANT Coding Summary-Paper Based CODING DATE: 08/21/[address] [facility] STATUS: * Discharged to Home or [...] SOLER Date Saved: 08/21/2016 12:38 pm Source: [facility] Document Id: [id number] Miscellaneous - Rajesh Kahn M.D. - 08/15/2016 4:17 PM CST Work Excuse August 15, 2016 DHIRAJ LANDA [address] [facility] [address] [place] [address] Dear DHIRAJ LANDA, You were examined in [...] August 17. Notes: _ Sincerely, RAJESH KAHN [address] [place] [address] Electronic Signature Electronically Signed By: RAJESH KAHN MD On: August 15, 2016 This document has images extracted. Source: [facility] [employer] Document Id: [id number] Miscellaneous - Shirley Marsh RGonzaloNGonzalo - 08/15/2016 4:14 PM CST Valuables/Belongings Valuables/Belongings Entered On: 08/15/2016 16:14 STEAM TABLE ATTENDANT Performed On: 08/15/2016 16:14 STEAM TABLE ATTENDANT by SHIRLEY MARSH RN Valuables/Belongings Home Medication Disposition : None brought in with patient SHIRLEY MARSH RN - 08/15/2016 16:14 STEAM TABLE ATTENDANT Source: [facility] [employer] Document Id: [id number] STEAM TABLE ATTENDANT!3 M TABLE ATTENDANT Miscellaneous - Shirley Marsh RGonzaloN. - 08/15/2016 3:43 PM CST Facility Charge Ticket 2.0 11.0 DX Facility Charge Ticket 2.0 11.0 DX Entered On: 08/15/2016 16:14 STEAM TABLE ATTENDANT Performed On: 08/15/2016 15:43 STEAM TABLE ATTENDANT by SHIRLEY MARSH RN Facility Charge Ticket [...] Control : 5 Lynx Visit Level : 63823 Level 3 Treatments Prior to Arrival : None SHIRLEY MARSH RN - 08/15/2016 16:14 STEAM TABLE ATTENDANT [facility] Document Id: [id number] STEAM TABLE ATTENDANT!17 M TABLE ATTENDANT documented in this encounter Plan of Treatment Not on filedocumented as of this encounter Visit Diagnoses Not on filedocumented in this encounter
--- OUTSIDE RECORDS SUMMARY | 2022-06-01 09:41 | XMS_ITS | Encounter Summary ---
:1995 Author Organization [facility] Address [address] [place] [address] Care Team Providers Name Role Phone Unavailable Primary Care Provider Unavailable Encounter Details Date Type Department Care Team Description 04/26/2015 Hospital Encounter HX [facility] Law petersen M.D. [address] [place] [address] [phone] (Wo rk) Social History Tobacco Use Types [...] How often do you attend baptist or moravian Never 10/23/2020 services? 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 Sinusitis Acute NOS Patient has significant frontal headache and hot and cold flashes with nasal stuffiness. We are going to treat her for a sinus infection with Augmentin 1 pill twice daily for 10 days. She is given a note to stay home from work today. Ordered: OV Est Pt Level 3 - 08151 - 15 min Orders: amoxicillin-clavulanate, 1 tab(s), PO, 2xDay, x 10 day(s), # 20 tab(s), 0 Refill(s), Acute, Pharmacy: [facility] predniSONE, 40 mg = 2 tab(s), PO, Daily, x 5 day(s), # 10 tab(s), 0 Refill(s), Acute, Pharmacy: [facility] Electronically Signed By: LAW BACA MD On: 04/26/2015 09:18 AM Source: [facility] POWERCHART Document Id: [id number] documented in this encounter Miscellaneous Notes Miscellaneous - Law Mancilla M.D. - 04/27/2015 11:16 AM CDT Work Excuse 27 April 2015 DHIRAJ LANDA [address] [facility] [id number] Dear DHIRAJ LANDA, You were examined in [...] not feeling better yet. Sincerely, LAW BACA [address] [place] [address] Electronic Signature Electronically Signed By: LAW BACA MD On: 27 April 2015 This document has images extracted. Source: [employer] Document Id: [id number] Ramona - Law Mancilla M.D. - 04/26/2015 8:58 AM CDT Work Excuse 26 April 2015 DHIRAJ LANDA [address] [facility] [id number] Dear DHIRAJ LANDA, You were examined in [...] feeling better Notes: _ Sincerely, LAW BACA [address] [place] [address] Electronic Signature Electronically Signed By: LAW BACA MD On: 26 April 2015 This document has images extracted. [facility] Document Id: [id number] Law Jones M.D. - 04/26/2015 8:57 AM CDT Ambulatory Patient Summary [address] [place]eb[place] [phone] Visit Information Name: DHIRAJ LANDA [facility] Number: [id number] Current Date: 04/26/2015 08:57:46 Physicians [...] day x 10 day(s) New Routed to [address] [address] fluticasone nasal (Flonase 0.05 mg/inh nasal spray) 2 [place](s), Nasal, two times a day fluticasone-salmeterol (Advair Diskus 250 mcg-50 mcg inhalation powder) 1 puff(s), Inhalation, two times a day medroxyPROGESTERone (Depo-Provera Contraceptive 150 mg/mL intramuscular suspension) 1 Milliliter, Intramuscular, every 90 days predniSONE (predniSONE 20 mg oral tablet) 2 Tablet(s), Oral, once a day x 5 day(s) New Routed to [address] [id number] sertraline (Zoloft 100 mg oral tablet) 1 [...] if you dont have one. Go to [email or web address] and click on Create Your Account. Then, follow the directions to complete the online form. Youll be asked for your [facility] number which you can find at the top of this document. Your Goals/Additional instructions: Source: [facility] POWERCHART Document Id: [id number] Miscellaneous - Law Mancilla M.D. - 04/26/2015 8:57 AM CDT Ambulatory Discharge Medication List [address] [phone] Visit Information Name: DHIRAJ LANDA [facility] Number: [id number] Visit Date: 04/26/2015 08:57:44 Attending [...] day x 10 day(s) New Routed to [address] [address] fluticasone nasal (Flonase 0.05 mg/inh nasal spray) 2 [place](s), Nasal, two times a day fluticasone-salmeterol (Advair Diskus 250 mcg-50 mcg inhalation powder) 1 puff(s), Inhalation, two times a day medroxyPROGESTERone (Depo-Provera Contraceptive 150 mg/mL intramuscular suspension) 1 Milliliter, Intramuscular, every 90 days predniSONE (predniSONE 20 mg oral tablet) 2 Tablet(s), Oral, once a day x 5 day(s) New Routed to [address] [id number] sertraline (Zoloft 100 mg oral tablet) 1 [...] MD Signed On:26-APR-2015 08:57:36 Additional Information: Source: [facility] POWERCHART Document Id: [id number] Miscellaneous - Teresa Parkinson LGonzaloP.N. - 04/26/2015 8:40 AM CDT Adult Facilities Custodian Intake/History Adult Facilities Custodian Intake/History Entered On: 04/26/2015 8:43 CDT Performed [...] ft 5 inch(es), 65 inch(es)) TERESA PARKINSON LPN - 04/26/2015 8:40 CDT General Info Languages : Ethiopian Is Patient Female and 13-50 no hysterectomy [...] : Never smoker TERESA PARKINSON LPN - 04/26/2015 8:40 CDT Caffeine Use Grid Caffeine Use : Current Type : Soft drinks Frequency : Occasionally TERESA PARKINSON [facility] - 04/26/2015 8:40 CDT Recreational Drug Use Grid Drug Use : None TERESA PARKINSON [facility] - 04/26/2015 8:40 CDT Source: [employer] Document Id: [id number] CDT!42 documented in this encounter Plan of Treatment Not on filedocumented as of this encounter Visit Diagnoses Not on filedocumented in this encounter
--- OUTSIDE RECORDS SUMMARY | 2022-06-01 09:41 | XMS_ITS | Encounter Summary ---
:1995 Author Organization [facility] Address [address] [place] [address] Care Team Providers Name Role Phone Unavailable Primary Care Provider Unavailable Encounter Details Date Type Department Care Team Description 10/28/2014 Hospital Encounter HX [facility] Iva Sam, SHAYE N, C.N.P. [address] [place], [place] [phone] (Wo rk) Social History [...] How often do you attend nondenominational or sikhism Never 10/23/2020 services? 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 - 10/28/2014 3:59 PM CDT Depo-Provera Administration Depo-Provera Administration Entered On: 10/28/2014 16:02 CDT Performed On: 10/28/2014 15:59 CDT by NENA OCAMPO LPN Depo-Provera Administration Annual Exam in the Past 12 Months : Yes Return appointment : 01/27/2015 CDT Depo-Provera Administration Comments : Lot: [id number] Expires: 05/2017 NENA OCAMPO LPN - 10/28/2014 15:59 CDT Source: [facility] SourceLairCHART Document Id: [id number] CDT!5 documented in this encounter Plan of Treatment Not on filedocumented as of this encounter Visit Diagnoses Not on filedocumented in this encounter
--- OUTSIDE RECORDS SUMMARY | 2022-06-01 09:41 | XMS_ITS | Encounter Summary ---
:1995 Author Organization [facility] Address [address] [place] [address] Care Team Providers Name Role Phone Unavailable Primary Care Provider Unavailable Encounter Details Date Type Department Care Team Description 07/18/2014 Hospital Encounter HX [facility] Manny Diaz, N[address] [place] [phone] (Wo rk) Social History Tobacco Use [...] How often do you attend denominational or restorationist Never 10/23/2020 services? 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 - 07/18/2014 2:23 PM CST [id number] CHIEF COMPLAINT/REASON FOR VISIT Cold symptoms. Asthma [...] DIAZ NP On: 08/12/2014 05:22 PM Source: [facility] MHSDOLBEYNONRADSYS Document Id: [id number] G AND GLAZE MAKER documented in this encounter Procedure Notes Jeanette Dennison L.P.N. - 07/18/2014 2:42 PM CST Asthma Control Test (12 yrs and older) Asthma Control Test (12 yrs and older) Entered On: 07/18/2014 14:42 ICING AND GLAZE MAKER Performed On: 07/18/2014 14:42 ICING AND GLAZE MAKER by JEANETTE DENNISON ACT Past 4 weeks [...] : 24 JEANETTE DENNISON - 07/18/2014 14:42 ICING AND GLAZE MAKER Source: [facility] POWERCHART Document Id: [id number] ICING AND GLAZE MAKER!8 G AND GLAZE MAKER documented in this encounter Miscellaneous Notes Miscellaneous - Jeanette Dennison L.P.N. - 07/18/2014 2:41 PM CST Health Assessment Health Assessment Entered On: 07/18/2014 14:41 ICING AND GLAZE MAKER Performed On: 07/18/2014 14:41 ICING AND GLAZE MAKER by JEANETTE DENNISON Health Assessment Complete Health Assessment Complete or Modified : Annual Health Assessment Annual Health Assessment Completed : Yes JEANETTE DENNISON - 07/18/2014 14:41 ICING AND GLAZE MAKER Nutrition Nutrition Risk Factors by History Adult : None JEANETTE DENNISON - 07/18/2014 14:41 ICING AND GLAZE MAKER Functional Current Daily Living Assistance : None JEANETTE DENNISON - 07/18/2014 14:41 ICING AND GLAZE MAKER Dependent Habits Tobacco Use/Currently Using : No Exposure to Tobacco Smoke : Care provider denies smoking in home, Other: former smoker Smoking Status : Never smoker JEANETTE DENNISON - 07/18/2014 14:41 ICING AND GLAZE MAKER Tobacco Use Grid Last Use : never JEANETTE DENNISON - 07/18/2014 14:41 ICING AND GLAZE MAKER Caffeine Use Grid Caffeine Use : Current Type : Soft drinks Frequency : Occasionally JEANETTE DENNISON - 07/18/2014 14:41 ICING AND GLAZE MAKER Recreational Drug Use Grid Drug Use : None JEANETTE DENNISON 07/18/2014 14:41 ICING AND GLAZE MAKER Psychosocial Domestic Abuse Concerns : None Worship Preference : JEANETTE Ortiz - 07/18/2014 14:41 ICING AND GLAZE MAKER Advance Directive Advanced Directives : No Advance Directive Additional Information : No JEANETTE DENNISON 07/18/2014 14:41 ICING AND GLAZE MAKER Educ Needs Learning Style Preference Adult Grid Patient : None Family : None JEANETTE DENNISON - 07/18/2014 14:41 ICING AND GLAZE MAKER Source: [facility] POWERCHART Document Id: [id number] ICING AND GLAZE MAKER!33 G AND GLAZE MAKER Miscellaneous - Jeanette Dennison LGonzaloPGonzaloN. - 07/18/2014 2:37 PM CST Adult Appraiser Personal Property Intake/History Adult Appraiser Personal Property Intake/History Entered On: 07/18/2014 14:40 ICING AND GLAZE MAKER Performed On: 07/18/2014 14:37 ICING AND GLAZE MAKER by JEANETTE DENNISON Intake Chief Complaint : [...] 65 inch(es)) JEANETTE DENNISON - 07/18/2014 14:37 ICING AND GLAZE MAKER General Info Information Given By : Patient Languages : Swedish Is Patient Female and 13-50 no hysterectomy : Yes Status : Patient denies Are you ? : No JEANETTE DENNISON - 07/18/2014 14:37 ICING AND GLAZE MAKER Subjective Pain Symptoms : No JEANETTE DENNISON - 07/18/2014 14:37 ICING AND GLAZE MAKER Dependent Habits Tobacco Use/Currently Using : No Exposure to Tobacco Smoke : Care provider denies smoking in home, Other: former smoker Smoking Status : Never smoker JEANETTE DENNISON - 07/18/2014 14:37 ICING AND GLAZE MAKER Tobacco Use Grid Last Use : never JEANETTE DENNISON - 07/18/2014 14:37 ICING AND GLAZE MAKER Caffeine Use Grid Caffeine Use : Current Type : Soft drinks Frequency : Occasionally JEANETTE DENNISON - 07/18/2014 14:37 ICING AND GLAZE MAKER Recreational Drug Use Grid Drug Use : None JEANETTE DENNISON - 07/18/2014 14:37 ICING AND GLAZE MAKER ID Screen Drug Resistant Organism : No Travel Within Last 21 Days : No JEANETTE DENNISON - 07/18/2014 14:37 ICING AND GLAZE MAKER Source: [employer] Document Id: [id number] ICING AND GLAZE MAKER!41 G AND GLAZE MAKER documented in this encounter Plan of Treatment Not on filedocumented as of this encounter Visit Diagnoses Not on filedocumented in this encounter
--- OUTSIDE RECORDS SUMMARY | 2022-06-01 09:41 | XMS_ITS | Encounter Summary ---
:1995 Author Organization [facility] Address [address] [place] [address] Care Team Providers Name Role Phone Unavailable Primary Care Provider Unavailable Encounter Details Date Type Department Care Team Description 04/25/2015 Hospital Encounter HX [facility] Maureen Lua, Ramos THOMASN, C.N.P. 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 Electronically Signed By: MAUREEN SINGER PARKING METER ATTENDANT On: 04/25/2015 03:06 PM Source: [facility] POWERCHART Document Id: [id number] documented in this encounter Miscellaneous Notes Miscellaneous - Maureen Singer, RYamileth. - 04/25/2015 4:06 PM CDT From: MAUREEN SINGER PARKING METER ATTENDANT Sent: 04/25/2015 16:06:26 CDT patient aware of hcg results and wet prep. she will try baking soda soaks and OTC remedies as needed. Source: [facility] POWERCHART Document Id: [id number] Electronically signed by Stuart, [facility] Gravity Meter Operator [id number] at 01/10/2017 5:16 PM CDT Miscellaneous - Nena Ocampo L.P.N. - 04/25/2015 2:40 PM CDT Adult Drying Room Operator Intake/History Adult Drying Room Operator Intake/History Entered On: 04/25/2015 14:42 CDT Performed [...] Information Given By : Patient Languages : Hebrew Is Patient Female and [...] OCAMPO LPN - 04/25/2015 14:40 CDT Source: [facility] POWERCHART Document Id: [id number] CDT!37 documented in this encounter Plan of [...] 04/25/2015 3:15 PM CDT Maureen Singer APRN, C.N.P. LAB URINE ORDERABLES Performing Organization Address City/State/ZIP Code Phon e Number POWERCHART Wet Prep Exam, Urogenital (04/25/2015 2:50 PM CDT) P athologist Signature HXWet Prep POWERCHART HXFinal No yeast, POWERCHART Trichomonas , or clue cells seen. Specimen (Source) Anatomical Collection Method Collection Time Re ceived Time Location / / Volume Laterality Vagina 04/25/2015 2:50 PM CDT Maureen Singer APRN, C.N.P. LAB MICROBIOLOGY - GENERAL O RDERABLES Performing Organization Address City/State/ZIP Code Phon e Number POWERCHART documented in this encounter Visit Diagnoses Not on filedocumented in this encounter
--- OUTSIDE RECORDS SUMMARY | 2022-06-01 09:41 | XMS_ITS | Encounter Summary ---
:1995 Author Organization [facility] Address [address] [place] [address] Care Team Providers Name Role Phone Unavailable Primary Care Provider Unavailable Encounter Details Date Type Department Care Team Description 09/17/2016 Hospital Encounter HX [facility] Francisca Saucedo, AEROPHYSICIST, C.N.P. [address] [place], [place] [phone] (Wo rk) Social History [...] How often do you attend buddhist or confucianist Never 10/23/2020 services? 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 All questions were answered. She left in no acute distress. A total of 25 minutes with 20 minutes used for counseling and coordination of care. Ordered: OV Est Pt Level 4 - 19124 - 25 min Vaginitis Panel, DNA (Genital) Electronically Signed By: HOLLEY SAUCEDO TRAVEL MANAGER On: 09/27/2016 08:44 AM Source: [facility] POWERCHART Document Id: [id number] ERCIAL REPRESENTATIVE documented in this encounter Miscellaneous Notes Miscellaneous - Holley Saucedo, R.N. - 09/18/2016 8:22 AM CST Results Notification Document Contains Addenda Addendum by DORIAN DAVENPORT LPN on September 18, 2016 09:10:06 COMMERCIAL REPRESENTATIVE Patient notified. From: HOLLEY SAUCEDO TRAVEL MANAGER To: [place] [facility] Nurse Mitesh; Sent: 09/18/2016 08:22:08 COMMERCIAL REPRESENTATIVE Show up: 09/18/2016 08:22:00 COMMERCIAL REPRESENTATIVE Subject: Results Notification Please call patient and let her know that her vaginal swab was positive for both a fungal and bacterial component. I sent a script for Flagyl twice daily to [facility]. She can also get a OTC topical fungal medication to treat the fungal component. Thanks! Results: Date Result Type Ind Result Name MBO POS Vaginosis Panel, DNA Source: [employer] Document Id: [id number] Miscellaneous - Holley Saucedo R.N. - 09/18/2016 8:21 AM CST Positive Vaginosis Panel From: HOLLEY SAUCEDO TRAVEL MANAGER Sent: 09/18/2016 08:21:01 COMMERCIAL REPRESENTATIVE ! Show up: 09/18/2016 08:19:00 COMMERCIAL REPRESENTATIVE Subject: Positive Vaginosis Panel Please call patient and let her know that her vaginal swab was positive for both a fungal and bacterial component. I sent a script for Flagyl twice daily to [facility]. She can also get a OTC topical fungal medication to treat the fungal component. Thanks! Results: Date Result Type Ind Result Name MBO POS Vaginosis Panel, DNA Source: [employer] Document Id: [id number] Electronically signed by Conversion, [facility] Supervisor Photostat [id number] at 01/25/2017 12:22 AM CDT Ramona - Vinnie Lyman L.PGonzaloN. 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 : No VINNIE LYMAN LPN - 09/17/2016 15:07 COMMERCIAL REPRESENTATIVE Subjective Pain Symptoms : No VINNIE LYMAN LPN - 09/17/2016 15:07 COMMERCIAL REPRESENTATIVE Dependent Habits Exposure to Tobacco Smoke : Care provider denies smoking in home, Other: former smoker Smoking Status : Former smoker Tobacco 2A : Yes Tobacco Use/Currently Using : No Tobacco Use/Last 30 Days : No Tobacco Use/Last 12 months : No Alcohol Use : Yes VINNIE LYMAN LPN - 09/17/2016 15:07 COMMERCIAL REPRESENTATIVE Caffeine Use Grid Caffeine Use : Current Type : Soft drinks Frequency : Occasionally VINNIE LYMAN LPN - 09/17/2016 15:07 COMMERCIAL REPRESENTATIVE Recreational Drug Use Grid Drug Use : None VINNIE LYMAN LPN - 09/17/2016 15:07 COMMERCIAL REPRESENTATIVE Source: [facility] CareWireCHART Document Id: [id number] COMMERCIAL REPRESENTATIVE!38 ERCIAL REPRESENTATIVE documented in this encounter Plan of Treatment Not on filedocumented as of this encounter Procedures Procedure Name Priority Date/Time Associated Diagnosis Comme nts VAGINITIS BATTERY, Routine 09/17/2016 3:30 PM Res ults for this DNA (GENITAL) COMMERCIAL REPRESENTATIVE procedure are in the results section. documented in this encounter Results (ABNORMAL) VAGINITIS BATTERY, DNA (GENITAL) (09/17/2016 3:30 PM COMMERCIAL REPRESENTATIVE) Component Value Ref Test Analysis Performed At [facility] Range Method Time Signature HXVaginitis (POSITIVE) POWERCHART Battery, DNA (Genital) HXFinal Trichomonas POWERCHART vaginalis DNA negative HXFinal Gardnerella POWERCHART vaginalis DNA positive HXFinal Veronica species POWERCHART DNA positive HXFinal Reference: POWERCHART Negative Specimen (Source) Anatomical Collection Method Collection Time Re ceived Time Location / / Volume Laterality Vagina 09/17/2016 3:30 PM COMMERCIAL REPRESENTATIVE Holley Saucedo APRN, C.N.P. LAB HISTORICAL ORDERS Performing Organization Address City/State/ZIP Code Phon e Number POWERCHART documented in this encounter Visit Diagnoses Not on filedocumented in this encounter
--- OUTSIDE RECORDS SUMMARY | 2022-06-01 09:41 | XMS_ITS | Encounter Summary ---
:1995 Author Organization [facility] Address [address] [place] [address] Care Team Providers Name Role Phone Unavailable Primary Care Provider Unavailable Encounter Details Date Type Department Care Team Description 08/23/2016 Hospital Encounter HX [facility] Francisca Arreola, EMPLOYEE COUNSELOR, C.N.P. [address] [place], [place] [address] (Wo rk) Social History [...] How often do you attend anglican or yazidism Never 10/23/2020 services? 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 She reports she wasseen in the [facility] ED on August 15, 2016 related to [...] Ordered: OV Est Pt Level 3 - 43149 - 15 min Pain Ear L See #1. Ordered: OV Est Pt Level 3 - 15227 - 15 min Sore Throat (ST) NOS See #1. All questions were answered. She left in no acute distress. Ordered: OV Est Pt Level 3 - 30869 - 15 min Electronically Signed By: HOLLEY ARREOLA CIGARETTE FILTER INSPECTOR On: 08/23/2016 10:33 AM Source: [facility] POWERCHART Document Id: [id number] TOOTH GRINDING MACHINE OPERATOR documented in this encounter Miscellaneous Notes Telephone Encounter - Conversion, Historical Provider Ser - 08/30/2016 10:05 AM CST *Phone Message Document Contains Addenda Addendum by TATI VOGT LPN on August 30, 2016 15:18:12 GEAR TOOTH GRINDING MACHINE OPERATOR Patient aware of the below information. Addendum by HOLLEY ARREOLA CIGARETTE FILTER INSPECTOR on August 30, 2016 14:54:25 GEAR TOOTH GRINDING MACHINE OPERATOR From: HOLLEY ARREOLA CIGARETTE FILTER INSPECTOR To: [facility] Medicine Nurse [place]; Sent: 08/30/2016 14:54:25 GEAR TOOTH GRINDING MACHINE OPERATOR Subject: RE: *Phone Message I refilled script of Augmentin for twice daily for 3 more days. Thanks! Addendum by TATI VOGT LPN on August 30, 2016 13:27:40 GEAR TOOTH GRINDING MACHINE OPERATOR From: TATI VOGT LPN ([facility] Medicine Nurse [place]) To: HOLLEY ARREOLA NP; Sent: 08/30/2016 13:27:40 GEAR TOOTH GRINDING MACHINE OPERATOR Subject: FW: *Phone Message Addendum by TATI VOGT LPN on August 30, 2016 13:27:30 GEAR TOOTH GRINDING MACHINE OPERATOR Forwarded to Holley. From: TRENT BRICENO ([place] [facility] Bottle Capper) To: [facility] Nurse [place]; Sent: 08/30/2016 10:05:18 GEAR TOOTH GRINDING MACHINE OPERATOR Subject: *Phone Message Caller is: ( x [...] back cell phone number ( ) Source: [facility] [employer] Document Id: [id number] Miscellaneous - Vinnie Lyman L.P.N. 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 : No VINNIE LYMAN LPN - 08/23/2016 9:51 GEAR TOOTH GRINDING MACHINE OPERATOR Subjective Pain Symptoms : Yes VINNIE LYMAN LPN - 08/23/2016 9:51 GEAR TOOTH GRINDING MACHINE OPERATOR Pain Scale Pain Scale Verbal 0-10 : Open VINNIE LYMAN LPN - 08/23/2016 9:51 GEAR TOOTH GRINDING MACHINE OPERATOR Pain Pain Assessment Grid Pain 1 Pain 2 Location : Head Throat Laterality : Bilateral Bilateral Intensity : 6 6 VINNIE LYMAN LPN - 08/23/2016 9:51 GEAR TOOTH GRINDING MACHINE OPERATOR VINNIE LYMAN LPN - 08/23/2016 9:51 GEAR TOOTH GRINDING MACHINE OPERATOR Dependent Habits Exposure to Tobacco Smoke : Care provider denies smoking in home, Other: former smoker Smoking Status : Former smoker Tobacco 2A : Yes Tobacco Use/Currently Using : No Tobacco Use/Last 30 Days : No Tobacco Use/Last 12 months : No VINNIE LYMAN LPN - 08/23/2016 9:51 GEAR TOOTH GRINDING MACHINE OPERATOR Caffeine Use Grid Caffeine Use : Current Type : Soft drinks Frequency : Occasionally VINNIE LYMAN LPN - 08/23/2016 9:51 GEAR TOOTH GRINDING MACHINE OPERATOR Recreational Drug Use Grid Drug Use : None VINNIE LYMAN LPN 08/23/2016 9:51 GEAR TOOTH GRINDING MACHINE OPERATOR Source: [facility] POWERCHART Document Id: [id number] GEAR TOOTH GRINDING MACHINE OPERATOR!50 TOOTH GRINDING MACHINE OPERATOR documented in this encounter Plan of Treatment Not on filedocumented as of this encounter Visit Diagnoses Not on filedocumented in this encounter
--- OUTSIDE RECORDS SUMMARY | 2022-06-01 09:41 | XMS_ITS | Encounter Summary ---
:1995 Author Organization [facility] Address [address] [place] [address] Care Team Providers Name Role Phone Unavailable Primary Care Provider Unavailable Encounter Details Date Type Department Care Team Description 12/05/2015 Hospital Encounter HX [facility] Francisca Arreola, RESTAURANT LEAD, C.N.P. [address] [place], [place] [address] (Wo rk) Social History [...] How often do you attend jainism or latter day Never 10/23/2020 services? 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 - 12/05/2015 2:59 PM CDT [id number] CHIEF COMPLAINT/REASON FOR VISIT Depression follow up. [...] ARREOLA NP On: 12/08/2015 08:55 AM Source: [facility] MHSDOLBEYNONRADSYS Document Id: [id number] documented in this encounter Miscellaneous Notes Miscellaneous - Holley Arreola R.N. - 12/05/2015 3:56 PM CDT Ambulatory Patient Summary [address] [id number] Visit Information Name: SYEDA DHIRAJ PAWEL [facility] Number: [id number] Current Date: 12/05/2015 15:56:04 Physicians [...] nasal (Flonase 0.05 mg/inh nasal spray) 2 Gaffney(s), Nasal, two times a day fluticasone-salmeterol (Advair [...] if you dont have one. Go to [email or web address] and click on Create Your Account. Then, follow the directions to complete the online form. Youll be asked for your [facility] number which you can find at the top of this document. Your Goals/Additional instructions: Source: [facility] [employer] Document Id: [id number] Miscellaneous - Holley Arreola R.N. - 12/05/2015 3:56 PM CDT Ambulatory Discharge Medication List [address] [id number] Visit Information Name: DHIRAJ LANDA [facility] Number: [id number] Visit Date: 12/05/2015 15:56:03 Attending Provider: HOLLEY ARREOLA ENVIRONMENTAL TECHNICAL OFFICER Primary Care Provider: HOLLEY ARREOLA ENVIRONMENTAL TECHNICAL OFFICER DHIRAJ LANDA has been given the following [...] nasal (Flonase 0.05 mg/inh nasal spray) 2 Gaffney(s), Nasal, two times a day fluticasone-salmeterol (Advair [...] case of emergency. Electronically Signed By: HOLLEY ARREOAL ENVIRONMENTAL TECHNICAL OFFICER Signed On:05-DEC-2015 15:55:53 Additional Information: Source: [facility] POWERCHART Document Id: [id number] Miscellaneous - Phyllis Vicente, L.P.N. 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 : No PHYLLIS VICENTE - 12/05/2015 15:24 CDT Subjective Pain Symptoms : No PHYLLIS VICENTE - 12/05/2015 15:24 CDT Dependent Habits [...] Quit : Yes Alcohol Use : No PHYLLIS VICENTE - 12/05/2015 15:24 CDT Caffeine Use Grid Caffeine Use : Current Type : Soft drinks Frequency : Occasionally PHYLLIS VICENTE - 12/05/2015 15:24 CDT Recreational Drug Use Grid Drug Use : None PHYLLIS VICENTE - 12/05/2015 15:24 CDT Source: [facility] Document Id: [id number] CDT!44 Miscellaneous - Dennys Nelson - 12/05/2015 3:08 PM CDT Quality Measures Quality Measures Entered On: 12/23/2015 15:08 CDT Performed On: 12/05/2015 15:08 CDT by DENNYS NELSON Depression PHQ-9 Score : 17 DENNYS NELSON - 12/23/2015 15:08 CDT Source: [facility] Document Id: [id number] CDT!3 documented in this encounter Plan of Treatment Not on filedocumented as of this encounter Visit Diagnoses Not on filedocumented in this encounter
--- OUTSIDE RECORDS SUMMARY | 2022-06-01 09:41 | XMS_ITS | Encounter Summary ---
:1995 Author Organization [facility] Address [address] [place] [address] Care Team Providers Name Role Phone Unavailable Primary Care Provider Unavailable Encounter Details Date Type Department Care Team Description 10/20/2015 Hospital Encounter HX [facility] Kimberley Brown M.D. [address], [place] [address] (Wo rk) Social History [...] often do you attend roman catholic or roman catholic Never 10/23/2020 services? 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 - 10/20/2015 10:21 AM CST [id number] CHIEF COMPLAINT/REASON FOR VISIT Dyspnea. 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 PAST MEDICAL/SURGICAL HISTORY Moderate persistent asthma. [...] POLANCO MD On: 10/22/2015 04:54 PM Source: [facility] MHSDOLBEYNONRADSYS Document Id: [id number] RVISOR MOTOR VEHICLE ASSEMBLY documented in this encounter Procedure Notes Jeanette Dennison, L.P.N. - 10/20/2015 11:17 AM CST Peak Flow POC Peak Flow POC Entered On: 10/20/2015 11:17 SUPERVISOR MOTOR VEHICLE ASSEMBLY Performed On: 10/20/2015 11:17 SUPERVISOR MOTOR VEHICLE ASSEMBLY by JEANETTE DENNISON Peak Flow POC Peak Flow Post-treatment POC #1 : 380 L/sec Treatment Delivery Device : Nebulizer JEANETTE DENNISON - 10/20/2015 11:32 SUPERVISOR MOTOR VEHICLE ASSEMBLY Peak Flow POC Initial : 350 L/sec Peak Flow POC #2 : 400 L/sec Peak Flow POC #3 : 360 L/sec Patient Effort Peak Flow POC : Fair JEANETTE DENNISON - 10/20/2015 11:17 SUPERVISOR MOTOR VEHICLE ASSEMBLY Source: [facility] POWERCHART Document Id: [id number] SUPERVISOR MOTOR VEHICLE ASSEMBLY!8 RVISOR MOTOR VEHICLE ASSEMBLY documented in this encounter Miscellaneous Notes Miscellaneous - Radha Polanco M.D. - 10/20/2015 11:34 AM CST Work Excuse October 20, 2015 CARLY LANDA [id number] [facility] [address] Dear CARLY LANDA, You were examined in [...] 2015 Notes: _ Sincerely, RADHA POLANCO [address] [place] [address] Electronic Signature Electronically Signed By: RADHA POLANCO MD On: October 20, 2015 This document has images extracted. Source: [facility] POWERCHART Document Id: [id number] Miscellaneous - Jennifer Medellin LGonzaloPGonzaloNGonzalo - 10/20/2015 10:34 AM CST Adult Email Marketing Coordinator Intake/History Adult Email Marketing Coordinator Intake/History Entered On: 10/20/2015 10:40 SUPERVISOR MOTOR VEHICLE ASSEMBLY Performed On: 10/20/2015 10:34 SUPERVISOR MOTOR VEHICLE ASSEMBLY by JENNIFER MEDELLIN LPN Intake Chief Complaint [...] Other: JENNIFER Melara LPN - 10/20/2015 10:34 SUPERVISOR MOTOR VEHICLE ASSEMBLY General Info Information Given By : Patient Languages : Pashto Is Patient Female and 13-50 no hysterectomy : Yes Status : Patient denies Are you ? : No JENNIFER MEDELLIN LPN - 10/20/2015 10:34 SUPERVISOR MOTOR VEHICLE ASSEMBLY Subjective Pain Symptoms : No JENNIFER MEDELLIN LPN - 10/20/2015 10:34 SUPERVISOR MOTOR VEHICLE ASSEMBLY Dependent Habits Exposure to Tobacco Smoke : Care provider denies smoking in home, Other: former smoker Smoking Status : Former smoker Tobacco 2A : Yes Tobacco Use/Currently Using : No Tobacco Use/Last 30 Days : No Tobacco Use/Last 12 months : No JENNIFER MEDELLIN DESIGN DRAFTER CHIEF - 10/20/2015 10:34 SUPERVISOR MOTOR VEHICLE ASSEMBLY Caffeine Use Grid Caffeine Use : Current Type : Soft drinks Frequency : Occasionally JENNIFER MEDELLIN LPN - 10/20/2015 10:34 SUPERVISOR MOTOR VEHICLE ASSEMBLY Recreational Drug Use Grid Drug Use : None JENNIFER MEDELLIN DESIGN DRAFTER CHIEF - 10/20/2015 10:34 SUPERVISOR MOTOR VEHICLE ASSEMBLY Source: [facility] POWERCHART Document Id: [id number] SUPERVISOR MOTOR VEHICLE ASSEMBLY!40 RVISOR MOTOR VEHICLE ASSEMBLY documented in this encounter Plan of Treatment Not on filedocumented as of this encounter Visit Diagnoses Not on filedocumented in this encounter
--- OUTSIDE RECORDS SUMMARY | 2022-06-01 09:41 | XMS_ITS | Encounter Summary ---
:1995 Author Organization [facility] Address [address] [place] [address] Care Team Providers Name Role Phone Unavailable Primary Care Provider Unavailable Encounter Details Date Type Department Care Team Description 09/30/2015 Hospital Encounter HX [facility] Hunter Ovalle M.D. [address] [place] [phone] (Wo rk) Social History Tobacco Use Types [...] How often do you attend anabaptism or evangelical Never 10/23/2020 services? 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 - 09/30/2015 1:00 PM CST [id number] CHIEF COMPLAINT/REASON FOR VISIT Congestion and decreased [...] continuing her inhalers and also try an [id number] decongestant if beneficial. If no improvement or [...] ALLISON MD On: 09/30/2015 02:51 PM Source: [facility] MHSDOLBEYNONRADSYS Document Id: [id number] HER SETTER documented in this encounter Procedure Notes Chrissy Dia L.P.N. - 09/30/2015 1:09 PM CST Asthma Control Test (12 yrs and older) Asthma Control Test (12 yrs and older) Entered On: 09/30/2015 13:09 CRUSHER SETTER Performed On: 09/30/2015 13:09 CRUSHER SETTER by CHRISSY DIA LPN ACT Past 4 weeks asthma [...] EMR CHRISSY DIA LPN - 09/30/2015 13:09 CRUSHER SETTER Source: [facility] [employer] Document Id: [id number] CRUSHER SETTER!12 HER SETTER documented in this encounter Miscellaneous Notes Miscellaneous - [place] Allison M.D. - 09/30/2015 1:38 PM CST Ambulatory Patient Summary [address] [id number] Visit Information Name: DHIRAJ LANDA [facility] Number: [id number] Current Date: 09/30/2015 13:38:49 Physicians Attending Provider: WASHINGTON ALLISON MD Primary Care Provider: HOLLEY ARREOLA DEPUTY SHERIFF CUSTODY DHIRAJ LANDA has been given the following [...] a day x 10 day(s) New Routed [facility] [address] [address] fluticasone nasal (Flonase 0.05 mg/inh nasal spray) 2 Verbena(s), Nasal, two times a day fluticasone-salmeterol (Advair Diskus 250 mcg-50 mcg inhalation powder) 1 puff(s), Inhalation, two times a day medroxyPROGESTERone (Depo-Provera Contraceptive 150 mg/mL intramuscular suspension) 1 Milliliter, Intramuscular, every 90 days sertraline (Zoloft 100 mg oral tablet) 1 Tablet(s), Oral, once a day Take 0.5 tablet x 1 week and then 1 tablet daily Routed to [address] [address] traZODone (traZODone 50 mg oral tablet) 1 [...] if you dont have one. Go to [email or web address] and click on Create Your Account. Then, follow the directions to complete the online form. Youll be asked for your [facility] number which you can find at the top of this document. Your Goals/Additional instructions: Source: [facility] POWERCHART Document Id: [id number] HER SETTER Miscellaneous - [place] Allison M.D. - 09/30/2015 1:38 PM CST Ambulatory Discharge Medication List [address] [id number] Visit Information Name: DHIRAJ LANDA [facility] Number: [id number] Visit Date: 09/30/2015 13:38:46 Attending Provider: WASHINGTON ALLISON MD Primary Care Provider: HOLLEY ARREOLA DEPUTY SHERIFF CUSTODY DHIRAJ LANDA has been given the following [...] a day x 10 day(s) New Routed [address] [address] fluticasone nasal (Flonase 0.05 mg/inh nasal spray) 2 Verbena(s), Nasal, two times a day fluticasone-salmeterol (Advair Diskus 250 mcg-50 mcg inhalation powder) 1 puff(s), Inhalation, two times a day medroxyPROGESTERone (Depo-Provera Contraceptive 150 mg/mL intramuscular suspension) 1 Milliliter, Intramuscular, every 90 days sertraline (Zoloft 100 mg oral tablet) 1 Tablet(s), Oral, once a day Take 0.5 tablet x 1 week and then 1 tablet daily [facility] [address] traZODone (traZODone 50 mg oral tablet) 1 [...] MD Signed On:30-SEP-2015 13:38:40 Additional Information: Source: [facility] POWERCHART Document Id: [id number] HER SETTER Miscellaneous - Chrissy Dia, L.P.N. - 09/30/2015 1:10 PM CST Adult Factory Superintendent Intake/History Adult Factory Superintendent Intake/History Entered On: 09/30/2015 13:13 CRUSHER SETTER Performed On: 09/30/2015 13:10 CRUSHER SETTER by CHRISSY DIA LPN Intake Chief Complaint [...] kg/m2 CHRISSY DIA LPN - 09/30/2015 13:10 CRUSHER SETTER General Info Languages : Cook Islander Is Patient Female and 13-50 no hysterectomy : Yes Status : Patient denies Are you ? : No CHRISSY DIA LPN - 09/30/2015 13:10 CRUSHER SETTER Subjective Pain Symptoms : No CHRISSY DIA LPN - 09/30/2015 13:10 CRUSHER SETTER Dependent Habits Exposure to Tobacco Smoke : Care provider denies smoking in home, Other: former smoker Smoking Status : Former smoker Tobacco 2A : Yes Tobacco Use/Currently Using : No Tobacco Use/Last 30 Days : No Tobacco Use/Last 12 months : No Alcohol Use : No CHRISSY DIA LPN - 09/30/2015 13:10 CRUSHER SETTER Caffeine Use Grid Caffeine Use : Current Type : Soft drinks Frequency : Occasionally CHRISSY DIA LPN - 09/30/2015 13:10 CRUSHER SETTER Recreational Drug Use Grid Drug Use : None CHRISSY DIA LPN - 09/30/2015 13:10 CRUSHER SETTER Source: [employer] Document Id: [id number] CRUSHER SETTER!41 HER SETTER Miscellaneous - Chrissy Dia L.P.NGonzalo - 09/30/2015 1:07 PM CST Health Assessment Health Assessment Entered On: 09/30/2015 13:08 CRUSHER SETTER Performed On: 09/30/2015 13:07 CRUSHER SETTER by CHRISSY DIA LPN Health Assessment Complete Health Assessment Complete or Modified : Annual Health Assessment Annual Health Assessment Completed : Yes CHRISSY DIA LPN - 09/30/2015 13:07 CRUSHER SETTER Nutrition Nutrition Risk Factors by History Adult : None CHRISSY DIA LPN - 09/30/2015 13:07 CRUSHER SETTER Functional Current Daily Living Assistance : None CHRISSY DIA LPN - 09/30/2015 13:07 CRUSHER SETTER Dependent Habits Exposure to Tobacco Smoke : Care provider denies smoking in home, Other: former smoker Smoking Status : Former smoker Tobacco 2A : Yes Tobacco Use/Currently Using : No Tobacco Use/Last 30 Days : No Tobacco Use/Last 12 months : No CHRISSY DIA LPN - 09/30/2015 13:07 CRUSHER SETTER Caffeine Use Grid Caffeine Use : Current Type : Soft drinks Frequency : Occasionally CHRISSY DIA LPN - 09/30/2015 13:07 CRUSHER SETTER Alcohol Use : No CHRISSY DIA LPN - 09/30/2015 13:07 CRUSHER SETTER Recreational Drug Use Grid Drug Use : None CHRISSY DIA LPN - 09/30/2015 13:07 CRUSHER SETTER Psychosocial Domestic Abuse Concerns : None Behavioral Health Screen/Safety Assmt : No Islam Preference : CHRISSY Muñiz LPN - 09/30/2015 13:07 CRUSHER SETTER Advance Directive Advanced Directives : No Advance Directive Additional Information : No CHRISSY DIA LPN - 09/30/2015 13:07 CRUSHER SETTER Educ Needs Learning Style Preference Adult Grid Patient : Demonstration, Printed materials Family : None CHRISSY DIA LPN - 09/30/2015 13:07 CRUSHER SETTER Source: [facility] POWERCHART Document Id: [id number] CRUSHER SETTER!35 HER SETTER documented in this encounter Plan of Treatment Not on filedocumented as of this encounter Visit Diagnoses Not on filedocumented in this encounter
--- OUTSIDE RECORDS SUMMARY | 2022-06-01 09:41 | XMS_ITS | Encounter Summary ---
:1995 Author Organization [facility] Address [address] [place] [address] Care Team Providers Name Role Phone Unavailable Primary Care Provider Unavailable Encounter Details Date Type Department Care Team Description 06/20/2015 Hospital Encounter HX [facility] Francisca Arreola, KITCHEN DESIGNER, C.N.P. [address] [place], [place] [phone] (Wo rk) Social History [...] How often do you attend shinto or episcopalian Never 10/23/2020 services? 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/2017 10:51 AM THREADER documented as of this encounter Last Filed Vital Signs Vital Sign Reading Time Taken Comments Blood Pressure 131/74 06/20/2015 8:47 AM THREADER Pulse 81 06/20/2015 8:47 AM THREADER Temperature - - Respiratory Rate 18 06/20/2015 8:47 AM THREADER Oxygen Saturation - - Inhaled Oxygen Concentration - - Weight 88.3 kg (194 lb 10.7 oz) 06/20/2015 8:47 AM THREADER Height 164 cm (5' 4.57) 06/20/2015 8:47 AM THREADER Body Mass Index 32.83 06/20/2015 8:47 AM THREADER documented in this encounter Medications at Time [...] Arreola R.N. - 06/20/2015 8:41 AM CST [id number] CHIEF COMPLAINT/REASON FOR VISIT General medical exam. [...] user. She has 1 daughter who is [id number] months old. She works at [facility] [employer]. 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 - 06/20/2015 9:26 AM CST Ambulatory Patient Summary [address] [phone] Visit Information Name: GORDOSTEPHDHIRAJ WRIGHT PAWEL [facility] Number: [id number] Current Date: 06/20/2015 09:26:31 Physicians Attending Provider: HOLLEY ARREOLA PAPER PATTERN FOLDER Primary Care Provider: HOLLEY ARREOLA PAPER PATTERN FOLDER DHIRAJ LANDA has been given the following [...] nasal (Flonase 0.05 mg/inh nasal spray) 2 Folsom(s), Nasal, two times a day fluticasone-salmeterol (Advair Diskus 250 mcg-50 mcg inhalation powder) 1 puff(s), Inhalation, two times a day medroxyPROGESTERone (Depo-Provera Contraceptive 150 mg/mL intramuscular suspension) 1 Milliliter, Intramuscular, every 90 days sertraline (Zoloft 100 mg oral tablet) 1 Tablet(s), Oral, once a day Take 0.5 tablet x 1 week and then 1 tablet daily Routed to [facility] [address] [place] [address] traZODone (traZODone 50 mg oral tablet) 1 Tablet(s), Oral, once a day Routed to [facility] [address] [address] Stop Taking the Following Medications: Medication list [...] of emergency. Electronically Signed By: HOLLEY ARREOLA PAPER PATTERN FOLDER Signed On:20-JUN-2015 09:26:23 Your Allergies & Intolerances [...] if you dont have one. Go to [email or web address] and click on Create Your Account. Then, follow the directions to complete the online form. Youll be asked for your [facility] number which you can find at the top of this document. Your Goals/Additional instructions: Source: [facility] POWERCHART Document Id: [id number] ADER Miscellaneous - Holley Arreola R.N. - 06/20/2015 9:26 AM CST Ambulatory Discharge Medication List [address] [place] [phone] Visit Information Name: DHIRAJ LANDA [facility] Number: [id number] Visit Date: 06/20/2015 09:26:29 Attending Provider: HOLLEY ARREOLA NP Primary Care Provider: HOLLEY ARREOLA PAPER PATTERN FOLDER DHIRAJ LANDA has been given the following [...] nasal (Flonase 0.05 mg/inh nasal spray) 2 Folsom(s), Nasal, two times a day fluticasone-salmeterol (Advair Diskus 250 mcg-50 mcg inhalation powder) 1 puff(s), Inhalation, two times a day medroxyPROGESTERone (Depo-Provera Contraceptive 150 mg/mL intramuscular suspension) 1 Milliliter, Intramuscular, every 90 days sertraline (Zoloft 100 mg oral tablet) 1 Tablet(s), Oral, once a day Take 0.5 tablet x 1 week and then 1 tablet daily Routed to [facility] [address] [id number] traZODone (traZODone 50 mg oral tablet) 1 Tablet(s), Oral, once a day Routed to [facility] [address] [id number] Stop Taking the Following Medications: [...] of emergency. Electronically Signed By: HOLLEY ARREOLA PAPER PATTERN FOLDER Signed On:20-JUN-2015 09:26:23 Additional Information: Source: [facility] POWERCHART Document Id: [id number] ADER Miscellaneous - Teresa Parkinson L.P.N. - 06/20/2015 8:47 AM CST Adult Waterproofer Helper Intake/History Adult Waterproofer Helper Intake/History Entered On: 06/20/2015 8:50 THREADER Performed On: 06/20/2015 8:47 THREADER by TERESA PARKINSON SUBSURFACE AUGMENTEE OPERATOR Intake Chief Complaint : EST care and [...] kg/m2 TERESA PARKINSON LPN - 06/20/2015 8:47 THREADER General Info Languages : Cypriot Is Patient Female and 13-50 no hysterectomy : Yes Status : Patient denies Are you ? : No TERESA PARKINSON LPN - 06/20/2015 8:47 THREADER Subjective Pain Symptoms : No TERESA PARKINSON LPN - 06/20/2015 8:47 THREADER Dependent Habits Tobacco Use/Currently Using : No Exposure to Tobacco Smoke : Care provider denies smoking in home, Other: former smoker Smoking Status : Former smoker Alcohol Use : No TERESA PARKINSON LPN - 06/20/2015 8:47 THREADER Caffeine Use Grid Caffeine Use : Current Type : Soft drinks Frequency : Occasionally TERESA PARKINSON LPN - 06/20/2015 8:47 THREADER Recreational Drug Use Grid Drug Use : None TERESA PARKINSON LPN - 06/20/2015 8:47 THREADER Source: [facility] POWERCHART Document Id: [id number] THREADER!39 ADER documented in this encounter Plan of Treatment Not on filedocumented as of this encounter Visit Diagnoses Not on filedocumented in this encounter
--- OUTSIDE RECORDS SUMMARY | 2022-06-01 09:41 | XMS_ITS | Encounter Summary ---
:1995 Author Organization [facility] Address [address] [place] [address] Care Team Providers Name Role Phone Unavailable Primary Care Provider Unavailable Encounter Details Date Type Department Care Team Description 05/01/2014 Hospital Encounter HX [facility] Maureen Lua, Ramos THOMASN, C.N.P. [address] [place] [phone] (Wo rk) Social History Tobacco [...] How often do you attend faith or oriental orthodox Never 10/23/2020 services? 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 - 05/01/2014 1:56 PM CDT PPD Reading PPD Reading Entered On: 05/01/2014 13:57 CDT Performed On: 05/01/2014 13:56 CDT by JOY JOHNSON LPN PPD Reading MM of Induration : 0 mm PPD Interpretation : Negative PPD Placed On : Right inner forearm PPD Date/Time Administered : 04/29/2014 11:30 CDT JOY JOHNSON LPN - 05/01/2014 13:56 CDT Source: [facility] Peak Document Id: [id number] CDT!6 Joy Johnson L.P.N. - 05/01/2014 1:50 PM CDT Depo-Provera Administration Depo-Provera Administration Entered On: 05/01/2014 13:50 CDT Performed On: 05/01/2014 13:50 CDT by JOY JOHNSON LPN Depo-Provera Administration Return appointment : 07/31/2014 BUSINESS CONTINUITY SPECIALIST JOY JOHNSON LPN - 05/01/2014 13:50 CDT Source: [facility] POWERCHART Document Id: [id number] CDT!3 documented in this encounter Plan of [...]
--- OUTSIDE RECORDS SUMMARY | 2022-06-01 09:42 | XMS_ITS | Encounter Summary ---
:1995 Author Organization [facility] Address [address] [place] [address] Care Team Providers Name Role Phone Unavailable Primary Care Provider Unavailable Encounter Details Date Type Department Care Team Description 11/07/2013 Hospital Encounter [facility] Bridget Saldaña M.D. Social History Tobacco [...] How often do you attend spiritism or quaker Never 10/23/2020 services? 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 - 11/07/2013 1:15 PM CDT [id number] No concerns. JF [facility] Document Id: [id number] Electronically signed by Conversion, [facility] Theater Technician [id number] at 01/09/2017 6:55 PM CDT Bridget Harrington M.D. - 11/07/2013 1:15 PM CDT [id number] kick counts reviewed. Patient reports >10 movements per hour. Source: [facility] Document Id: [id number] Electronically signed by Conversion, [facility] Theater Technician [id number] at 01/09/2017 6:55 PM CDT documented in this encounter Plan of Treatment Not on filedocumented as of this encounter Visit Diagnoses Not on filedocumented in this encounter
--- OUTSIDE RECORDS SUMMARY | 2022-06-01 09:42 | XMS_ITS | Encounter Summary ---
:1995 Author Organization [facility] Address [address] [place] [address] Care Team Providers Name Role Phone Unavailable Primary Care Provider Unavailable Encounter Details Date Type Department Care Team Description 02/08/2014 Hospital Encounter [facility] Law Lua, Ramos THOMASN, C.N.P. [address] [place] [phone] (Wo rk) Social History Tobacco [...] How often do you attend sabianism or temple Never 10/23/2020 services? 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 Electronically Signed By: LAW SINGER HEAD OF VISUAL MERCHANDISING On: 02/08/2014 11:07 AM Source: [facility] Document Id: [id number] documented in this encounter Procedure Notes Nena Ocampo L.PGonzaloN. - 02/08/2014 11:09 AM CDT Depo-Provera Administration Depo-Provera Administration Entered On: 02/08/2014 11:09 CDT Performed On: 02/08/2014 11:09 CDT by NENA OCAMPO LPN Depo-Provera Administration Annual Exam in the Past 12 Months : Yes Last Depo-Provera Given : 02/08/2014 CDT Return appointment : 05/10/2014 CDT NENA OCAMPO LPN - 02/08/2014 11:09 CDT Source: [facility] [employer] Document Id: [id number] CDT!5 documented in this encounter Miscellaneous Notes [...] back cell phone number ( ) Source: [facility] POWERCHART Document Id: [id number] Electronically signed by [facility] Distributor Advertising Material [id number] at 01/11/2017 12:41 AM CDT Miscellaneous - Law Singer, R.N. - 02/08/2014 10:49 AM CDT Ambulatory Patient Summary [facility] [address], [address] [place], [place] [phone] Visit Information Name: GORDOSTEPHDHIRAJ WRIGHT PAWEL [facility] Number: [id number] Current Date: 02/08/2014 10:49:45 Physicians Attending Provider: LAW SINGER HEAD OF VISUAL MERCHANDISING Primary Care Provider: PCP, UNASSIGNED - DHIRAJ [...] nasal (Flonase 0.05 mg/inh nasal spray) 2 Madeline(s), Nasal, two times a day fluticasone-salmeterol (Advair [...] of emergency. Electronically Signed By: LAW SINGER HEAD OF VISUAL MERCHANDISING Signed On:08-FEB-2014 10:49:35 Your Allergies & Intolerances [...] appointment detail needed. Your Goals/Additional instructions: Source: [facility] POWERCHART Document Id: [id number] Miscellaneous - Law Singer, R.N. - 02/08/2014 10:49 AM CDT Ambulatory Discharge Medication List [facility] [address], [address] [place], [place] [phone] Visit Information Name: DHRIAJ LANDA [facility] Number: [id number] Visit Date: 02/08/2014 10:49:43 Attending Provider: LAW SINGER HEAD OF VISUAL MERCHANDISING Primary Care Provider: PCP, UNASSIGNED - RW [...] nasal (Flonase 0.05 mg/inh nasal spray) 2 Madeline(s), Nasal, two times a day fluticasone-salmeterol (Advair [...] of emergency. Electronically Signed By: LAW SINGER HEAD OF VISUAL MERCHANDISING Signed On:08-FEB-2014 10:49:35 Additional Information: Source: [facility] POWERCHART Document Id: [id number] Miscellaneous - Nena Ocampo L.P.N. - 02/08/2014 10:24 AM CDT Adult Fast Food Supervisor Intake/History Adult Fast Food Supervisor Intake/History Entered On: 02/08/2014 10:26 CDT Performed [...] Information Given By : Patient Languages : French NENA OCAMPO SENIOR POLICY ANALYST - 02/08/2014 10:24 CDT Subjective Pain Symptoms [...] Type : Soft drinks Frequency : Occasionally ENNA OCAMPO LPN - 02/08/2014 10:24 CDT Recreational Drug Use Grid Drug Use : None NENA OCAMPO LPN - 02/08/2014 10:24 CDT Source: [facility] Document Id: [id number] CDT!38 documented in this encounter Plan of Treatment Not on filedocumented as of this encounter Visit Diagnoses Not on filedocumented in this encounter
--- OUTSIDE RECORDS SUMMARY | 2022-06-01 09:42 | XMS_ITS | Encounter Summary ---
:1995 Author Organization [facility] Address [address] [place] [address] Care Team Providers Name Role Phone Unavailable [...] How often do you attend jewish or presybeterian Never 10/23/2020 services? 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
--- OUTSIDE RECORDS SUMMARY | 2022-06-01 09:42 | XMS_ITS | Encounter Summary ---
:1995 Author Organization [facility] Address [address] [place] [address] Care Team Providers Name Role Phone Unavailable Primary Care Provider Unavailable Encounter Details Date Type Department Care Team Description 10/24/2013 Hospital Encounter [facility] Iva Sam, SHAYE N, C.N.P. [address] [place], [place] [phone] (Wo rk) Social History [...] How often do you attend episcopal or presybeterian Never 10/23/2020 services? 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 - 10/24/2013 2:05 PM CDT [id number] Quick Note: notified Source: [facility] Document Id: [id number] Electronically signed by Conversion, [facility] Carpenter Assembler [id number] at 01/09/2017 4:48 PM CDT Conversion, Historical Provider Ser - 10/24/2013 2:05 PM CDT [id number] No concerns at this time. Source: [facility] Document Id: [id number] Iva Guerrero C.N.P., R.N. - 10/24/2013 2:05 PM CDT [id number] Feels palpitations off and on. 1-2 times [...] appt.: Yes Car Seat Safety: Yes Source: [facility] RWHXTRANSXRTFSYS Document Id: [id number] Electronically signed by Conversion, [facility] Carpenter Assembler [id number] at 01/09/2017 4:48 PM CDT documented in this encounter Plan of Treatment Not on filedocumented as of this encounter Visit Diagnoses Not on filedocumented in this encounter
--- OUTSIDE RECORDS SUMMARY | 2022-06-01 09:42 | XMS_ITS | Encounter Summary ---
:1995 Author Organization [facility] Address [address] [place] [address] Care Team Providers Name Role Phone Unavailable Primary Care Provider Unavailable Encounter Details Date Type Department Care Team Description 08/29/2013 Hospital Encounter [facility]X [facility] Bridget Saldaña M.D. Social History [...] How often do you attend nondenominational or nondenominational Never 10/23/2020 services? 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 - 08/29/2013 9:45 AM CST [id number] No concerns. JF Source: [facility] Document Id: [id number] Electronically signed by Conversion, [facility] Recovery Collector [id number] at 01/09/2017 2:31 PM CDT Bridget Harrington M.D. - 08/29/2013 9:45 AM CST [id number] No complaints. S/p suzette scan. Awaiting us results. Source: [facility] Document Id: [id number] Electronically signed by Conversion, [facility] Recovery Collector [id number] at 01/09/2017 2:31 PM CDT documented in this encounter Plan of Treatment Not on filedocumented as of this encounter Visit Diagnoses Not on filedocumented in this encounter
--- OUTSIDE RECORDS SUMMARY | 2022-06-01 09:42 | XMS_ITS | Encounter Summary ---
:1995 Author Organization [facility] Address [address] [place] [address] Care Team Providers Name Role Phone Unavailable Primary Care Provider Unavailable Encounter Details Date Type Department Care Team Description 08/29/2013 Hospital Encounter [facility]X [facility] XRAY Provider, Histori hernandez Social [...] How often do you attend quaker or pentecostalism Never 10/23/2020 services? 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
--- OUTSIDE RECORDS SUMMARY | 2022-06-01 09:42 | XMS_ITS | Encounter Summary ---
:1995 Author Organization [facility] Address [address] [place] [address] Care Team Providers Name Role Phone Unavailable Primary Care Provider Unavailable Encounter Details Date Type Department Care Team Description 12/05/2013 Hospital Encounter [facility] Lory Saldaña M.D. Social History Tobacco Use [...] How often do you attend yazidi or jew Never 10/23/2020 services? Do you [...] Date Recorded Female 08/12/2017 10:51 AM QUALITY LIAISON documented as of this encounter Last [...] 12/05/2013 1:24 PM CD T Growth Chart: [facility] (Girls, 2-20 Years) documented in this encounter [...] 12/05/2013 7:33 PM CDT Ambulatory Patient Summary [facility] [address], [address] [place], [place] [phone] Visit Information Name: DHIRAJ LANDA PAWEL [facility] Number: [id number] Current Date: 12/05/2013 19:33:04 Physicians [...] nasal (Flonase 0.05 mg/inh nasal spray) 2 Portland(s), Nasal, two times a day montelukast (montelukast [...] Date Time Location Reason Provider 12/18/2013 15:20 [facility] FABRICATION SUPERVISOR 36 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 Your Goals/Additional instructions: Source: [facility] POWERCHART Document Id: [id number] Miscellaneous - Lory Villa M.D. - 12/05/2013 7:33 PM CDT Ambulatory Discharge Medication List [facility] [address], [address] [place], [place] [phone] Visit Information Name: DHIRAJ LANDA [facility] Number: [id number] Visit Date: 12/05/2013 19:33:02 Attending [...] nasal (Flonase 0.05 mg/inh nasal spray) 2 Portland(s), Nasal, two times a day montelukast (montelukast [...] MD Signed On:05-DEC-2013 19:32:57 Additional Information: [facility] Document Id: [id number] Miscellaneous - Joy Johnson L.P.N. - 12/05/2013 1:24 PM CDT Adult Dock Associate Intake/History Adult Dock Associate Intake/History Entered On: 12/05/2013 13:27 CDT Performed [...] Information Given By : Patient Languages : Maltese JOY JOHNSON LPN - 12/05/2013 13:24 CDT [...] JOHNSON LPN - 12/05/2013 13:24 CDT [facility] Document Id: [id number] CDT!30 documented in this encounter Plan of Treatment Not on filedocumented as of this encounter Visit Diagnoses Not on filedocumented in this encounter
--- OUTSIDE RECORDS SUMMARY | 2022-06-01 09:42 | XMS_ITS | Encounter Summary ---
:1995 Author Organization [facility] Address [address] [place] [address] Care Team Providers Name Role Phone Unavailable Primary Care Provider Unavailable Encounter Details Date Type Department Care Team Description 10/24/2013 Hospital Encounter HX NO MAPPING Iva Guerrero APRN, C.N.P. 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
--- OUTSIDE RECORDS SUMMARY | 2022-06-01 09:42 | XMS_ITS | Encounter Summary ---
:1995 Author Organization [facility] Address [address] [place] [address] Care Team Providers Name Role Phone Unavailable Primary Care Provider Unavailable Encounter Details Date Type Department Care Team Description 12/26/2013 [facility] Lory Saldaña M.D. Social History Tobacco [...] 10/23/2020 relatives? How often do you attend rastafari or moravian Never 10/23/2020 services? 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 encounter Last [...] 12/26/2013 1:23 PM CD T Growth Chart: [facility] (Girls, 2-20 Years) documented in this [...] 12/26/2013 5:29 PM CDT Ambulatory Patient Summary [facility] [address], [address] [place], [place] [phone] Visit Information Name: DHIRAJ LANDA PAWEL [facility] Number: [id number] Current Date: 12/26/2013 17:29:34 Physicians [...] nasal (Flonase 0.05 mg/inh nasal spray) 2 Cincinnatus(s), Nasal, two times a day fluticasone-salmeterol (Advair [...] Date Time Location Reason Provider 01/02/2014 13:15 [facility] PLASTER MECHANIC 38 wk ob check Lory Villa MD 01/09/2014 13:15 [facility] PLASTER MECHANIC 39 wk ob check Lory Villa MD Attention: Contact your local Clinic if further appointment detail needed. Your Goals/Additional instructions: Source: [facility] POWERCHART Document Id: [id number] Miscellaneous - Lory Villa M.D. - 12/26/2013 5:29 PM CDT Ambulatory Discharge Medication List [facility] [address], [address] [place], [place] [phone] Visit Information Name: DHIRAJ LANDA [facility] Number: [id number] Visit Date: 12/26/2013 17:29:33 Attending [...] nasal (Flonase 0.05 mg/inh nasal spray) 2 Cincinnatus(s), Nasal, two times a day fluticasone-salmeterol (Advair [...] MD Signed On:26-DEC-2013 17:29:28 Additional Information: Source: [facility] POWERCHART Document Id: [id number] Miscellaneous - Joy Johnson L.P.N. - 12/26/2013 1:23 PM CDT Adult Buggy Operator Intake/History Adult Buggy Operator Intake/History Entered On: 12/26/2013 13:26 CDT Performed [...] Information Given By : Patient Languages : Kinyarwanda JOY JOHNSON LPN - 12/26/2013 13:23 CDT Subjective Pain Symptoms : Yes JOY JOHNSON LPN - 12/26/2013 13:23 CDT Pain Pain Assessment Grid Pain 1 Location : Other: low back Laterality : Bilateral Intensity : 3 JOY JOHNSON LPN - 12/26/2013 13:23 CDT Dependent Habits Tobacco Use/Currently [...] JOY JOHNSON LPN 12/26/2013 13:23 CDT Source: [facility] POWERCHART Document Id: [id number] CDT!36 documented in this encounter Plan of [...]
--- OUTSIDE RECORDS SUMMARY | 2022-06-01 09:42 | XMS_ITS | Encounter Summary ---
:1995 Author Organization [facility] Address [address] [place] [address] Care Team Providers Name Role Phone Unavailable Primary Care Provider Unavailable Encounter Details Date Type Department Care Team Description 10/24/2013 Hospital Encounter HX NO MAPPING Iva Guerrero APRN, C.N.P. [address] [place], [place] [phone] (Wo rk) Social [...] How often do you attend baptism or faith Never 10/23/2020 services? 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
--- OUTSIDE RECORDS SUMMARY | 2022-06-01 09:42 | XMS_ITS | Encounter Summary ---
:1995 Author Organization [facility] Address [address] [place] [address] Care Team Providers Name Role Phone Unavailable Primary Care Provider Unavailable Encounter Details Date Type Department Care Team Description 09/26/2013 Hospital Encounter HX [facility] Bridget Saldaña M.D. Social History Tobacco [...] How often do you attend alevism or alevism Never 10/23/2020 services? 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 - 09/26/2013 3:00 PM CST [id number] No vaginal bleeding or leaking of fluid. No concerns. TLM Source: [facility] Document Id: [id number] Bridget Harrington M.D. - 09/26/2013 3:00 PM CST [id number] Gct/cbc today. F/up scan next visit. C/o constipation, fiber, exercise, colace prn. Source: [facility] Document Id: [id number] documented in this encounter Miscellaneous Notes Miscellaneous - Bridget Harrington M.D. - 09/26/2013 3:00 PM CST [id number] Carly Joseph [id number] [facility] [address] September 27, 2013 Dear Ms. Joseph: I am writing to inform you the results of the laboratory tests you had done during your recent visitto the clinic. Your results included : your glucose and cbc were both normal. It was a pleasure to see you in the clinic. If you have any further questions or problems, please contact our office at [phone]. Sincerely, Dr Bridget Harrington MD Dept. MAIL HANDLER [facility] in [place] Source: [facility] RWHXTRANSXRTFSYS Document Id: [id number] documented in this encounter Plan of Treatment Not on filedocumented as of this encounter Procedures Procedure Name Priority Date/Time Associated Diagnosis Comme nts GLUC ROBIN/GLUCOSE Routine 09/26/2013 5:02 PM Resul ts for this ROTARY KILN OPERATOR procedure are i n the results section. documented in this encounter Results Gluc Robin/Glucose (09/26/2013 5:02 PM ROTARY KILN OPERATOR) P athologist Signature HXGluc 1 Hr 91 MGDL [facility] Specimen (Source) Anatomical Collection Method Collection Time Re ceived Time Location / / Volume Laterality 09/26/2013 5:02 PM ROTARY KILN OPERATOR Historical Provider LAB BLOOD ADD-ON Performing Organization Address City/State/ZIP Code Phon e Number [facility] documented in this encounter Visit Diagnoses Not on filedocumented in this encounter
--- OUTSIDE RECORDS SUMMARY | 2022-06-01 09:42 | XMS_ITS | Encounter Summary ---
:1995 Author Organization [facility] Address [address] [place] [address] Care Team Providers Name Role Phone Unavailable Primary Care Provider Unavailable Encounter Details Date Type Department Care Team Description 10/24/2013 Hospital Encounter HX [facility] XRAY Provider, Histori hernandez Social History Tobacco [...] How often do you attend episcopal or gnosticist Never 10/23/2020 services? 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 - 10/24/2013 1:15 PM CDT [id number] Quick Note: Discussed at visit. Source[facility] Document Id: [id number] Electronically signed by Stuart, [facility] Maintenance Planning Clerk [id number] at 01/09/2017 4:48 PM CDT documented in this encounter Plan of Treatment Not on filedocumented as of this encounter Visit Diagnoses Not on filedocumented in this encounter
--- OUTSIDE RECORDS SUMMARY | 2022-06-01 09:42 | XMS_ITS | Encounter Summary ---
:1995 Author Organization [facility] Address [address] [place] [address] Care Team Providers Name Role Phone Unavailable Primary Care Provider Unavailable Encounter Details Date Type Department Care Team Description 12/21/2013 Hospital Encounter [facility] Dusty Dodd D.O. [address] [place] [address] (Wo rk) Social History Tobacco Use Types [...] How often do you attend mormonism or methodist Never 10/23/2020 services? 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 - 12/21/2013 2:06 PM CDT Ambulatory Patient Summary [facility] [address], [address] [place], [place] [id number] Visit Information Name: DHIRAJ LANDA [facility] Number: [id number] Current Date: 12/21/2013 14:06:34 Physicians [...] nasal (Flonase 0.05 mg/inh nasal spray) 2 [place](s), Nasal, two times a day fluticasone-salmeterol (Advair [...] appointment detail needed. Your Goals/Additional instructions: Source: [facility] POWERCHART Document Id: [id number] Miscellaneous - Mk Rock D.O. - 12/21/2013 2:06 PM CDT Ambulatory Discharge Medication List [facility] [address], [address] [place], [place] [id number] Visit Information Name: DHIRAJ LANDA [facility] Number: [id number] Visit Date: 12/21/2013 14:06:32 Attending [...] nasal (Flonase 0.05 mg/inh nasal spray) 2 [place](s), Nasal, two times a day fluticasone-salmeterol (Advair [...] MD Signed On:21-DEC-2013 14:06:24 Additional Information: Source: [facility] POWERCHART Document Id: [id number] Miscellgustabo - Ana Dhillon L.P.NGonzalo - 12/21/2013 1:40 PM CDT Adult Industry Analyst Intake/History Adult Industry Analyst Intake/History Entered On: 12/21/2013 13:42 CDT Performed [...] Information Given By : Patient Languages : German ANA KEYES CLAIMS MANAGER - 12/21/2013 13:40 CDT Subjective Pain Symptoms : No ANA KEYES LPN - 12/21/2013 13:40 CDT Dependent Habits Tobacco Use/Currently Using : No Exposure to Tobacco Smoke : Care provider denies smoking in home, Other: former smoker Smoking Status : Former smoker ANA EKYES LPN - 12/21/2013 13:40 CDT Tobacco Use Grid Last Use : never ANA KEYES LPN - 12/21/2013 13:40 CDT Caffeine Use Grid Caffeine Use : Current Type : Soft drinks Frequency : Occasionally ANA KEYES LPN - 12/21/2013 13:40 CDT Recreational Drug Use Grid Drug Use : None ANA KEYES LPN - 12/21/2013 13:40 CDT Source: [facility] Lesson Prep Document Id: [id number] CDT!29 Miscellaneous - Nena Ocampo LGonzaloP.NGonzalo - 12/20/2013 4:11 PM CDT Patient returned call on Lab update From: NENA OCAMPO LPN ( Obstetrics/Gynecology Nurse) Sent: 12/20/2013 16:11:52 CDT Subject: Patient returned call on Lab update Patient returned call on Lab update. Notified of positive Group B strep. Source: [facility] POWERCHART Document Id: [id number] Electronically signed by Conversion, [facility] Medical Coding Instructor [id number] at 01/11/2017 4:24 AM CDT documented in this encounter Plan of Treatment Not on filedocumented as of this encounter Visit Diagnoses Not on filedocumented in this encounter
--- OUTSIDE RECORDS SUMMARY | 2022-06-01 09:42 | XMS_ITS | Encounter Summary ---
:1995 Author Organization [facility] Address [address] [place] [address] Care Team Providers Name Role Phone Unavailable Primary Care Provider Unavailable Encounter Details Date Type Department Care Team Description 11/21/2013 Hospital Encounter HX [facility] Bridget Saldaña M.D. [...] How often do you attend confucianist or presybeterian Never 10/23/2020 services? 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 Last Filed [...] 11/21/2013 1:47 PM CD T Growth Chart: [facility] (Girls, 2-20 Years) documented in this encounter [...] Mass Index : 31.86 kg/m2 [facility] - 11/21/2013 13:47 CDT Dependent Habits Tobacco Use/Currently Using : No Exposure to Tobacco Smoke : Care provider denies smoking in home Smoking Status : Never smoker [facility] - 11/21/2013 13:47 CDT Tobacco Use Grid Last Use : never [facility] - 11/21/2013 13:47 CDT Alcohol Use : No [facility] - 11/21/2013 13:47 CDT Caffeine Use Grid Caffeine Use : Current Type : Soft drinks Frequency : Occasionally [facility] - 11/21/2013 13:47 CDT Recreational Drug Use Grid Drug Use : None [facility] - 11/21/2013 13:47 CDT Psychosocial Domestic Abuse Concerns : None [facility] - 11/21/2013 13:47 CDT [facility] Document Id: [id number] CDT!27 documented in this encounter Miscellaneous Notes Marco Antonioaneous - Bridget Villa M.D. - 11/26/2013 1:19 [...] gonorrhea and chlamydia culture. THX SAT [facility] Document Id: [id number] Miscellaneous - Bridget Villa M.D. - 11/21/2013 [...] sent to her pharmacy. MORGAN, JONAH Source: [facility] [employer] [place] Document Id: [id number] Telephone Encounter - Bridget Villa M.D. - [...] back cell phone number ( ) [facility] Document Id: [id number] Electronically signed by Stuart [facility] ej Customer Success Director [id number] at 01/11/2017 7:39 AM CDT Miscellaneous - Bridget Villa M.D. - 11/21/2013 2:28 PM CDT Ambulatory Patient Summary [facility] [address], [address] [place], [place] [phone] Visit Information Name: DHIRAJ LANDA [facility] Number: [id number] Current Date: 11/21/2013 14:28:45 Physicians [...] nasal (Flonase 0.05 mg/inh nasal spray) 2 Electra(s), Nasal, two times a day fluticasone-salmeterol (Advair [...] appointment detail needed. Your Goals/Additional instructions: Source: [facility] POWERCHART Document Id: [id number] Miscellaneous - Bridget Villa M.D. - 11/21/2013 2:28 PM CDT Ambulatory Discharge Medication List [facility] [address], [address] [place], [place] [phone] Visit Information Name: DHIRAJ LANDA [facility] Number: [id number] Visit Date: 11/21/2013 14:28:43 Attending [...] nasal (Flonase 0.05 mg/inh nasal spray) 2 Electra(s), Nasal, two times a day fluticasone-salmeterol (Advair [...] MD Signed On:21-NOV-2013 14:28:39 Additional Information: Source: [facility] POWERCHART Document Id: [id number] documented in this encounter Plan of Treatment [...] athologist Signature HXN gonor Amp Negative POWERCHART DNA-Hiram Specimen (Source) Anatomical Collection Method Collection Time Re ceived Time Location / / Volume Laterality 11/21/2013 2:24 PM CDT Narrative POWERCHART - 11/22/2013 7:55 PM CDT Test Performed by: [address] [address] Soda Clerk: Israel meeks III, M.D. Bridget Villa M.D. LAB HISTORICAL ORDERS Performing Organization Address City/State/ZIP Code Phon e Number POWERCHART HX-N gonor Amp Src (11/21/2013 2:24 PM CDT) athologist Signature HXN gonor Amp cx POWERCHART Src-Hiram Specimen (Source) Anatomical Collection Method Collection Time Re ceived Time Location / / Volume Laterality 11/21/2013 2:24 PM CDT Bridget Villa M.D. LAB HISTORICAL ORDERS Performing Organization Address City/State/ZIP Code Phon e Number POWERCHART HX-C trach Amp RNA (11/21/2013 2:24 PM CDT) [facility] gist Method Time Signature Chlamydia Negative POWERCHART trachomatis amplified RNA Specimen (Source) Anatomical Collection Method Collection Time Re ceived Time Location / / Volume Laterality 11/21/2013 2:24 PM CDT Bridget Villa M.D. LAB HISTORICAL ORDERS Performing Organization Address City/[facility]/ZIP Code Phon e Number POWERCHART HX-C trach Amp Src (11/21/2013 2:24 PM CDT) athologist Signature HXC trach Amp cx [facility] Spec[facility] (Source) Anatomical Collection Method Collection Time Re ceived Time Location / / Volume Laterality 11/21/2013 2:24 PM CDT Bridget Villa M.D. LAB HISTORICAL ORDERS Performing Organization Address City/[facility] Code Phon e Number POWERCHART (ABNORMAL) [...] - GENERAL O RDERABLES Performing Organization Address City/State/[facility] Phon e Number POWERCHART documented in this encounter Visit Diagnoses Not on filedocumented in this encounter
--- OUTSIDE RECORDS SUMMARY | 2022-06-01 09:42 | XMS_ITS | Encounter Summary ---
:1995 Author Organization [facility] Address [address] [place] [address] Care Team Providers Name Role Phone Unavailable Primary Care Provider Unavailable Encounter Details Date Type Department Care Team Description 12/02/2013 Hospital En[facility] Prisca Villa M.D. Social History [...] How often do you attend advent or holiness Never 10/23/2020 services? 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 - 12/02/2013 8:06 PM CDT Hospital Discharge Instructions [facility] [address] [place] [address] Patient Discharge Instructions Name: DHIRAJ LANDA Current Date: 12/02/2013 20:06:43 : 1995 12:00 AM [facility] Number: [id number] Patient Address: [address] [place] [phone] Patient Primary Care Provider: Name: PCP, UNASSIGNED - RW Phone: Discharge Diagnosis: [facility] would like to thank you for allowing us to assist you with yourhealthcare needs. The following includes patient education materials and information regarding your injury/illness. Comment: DHIRAJ LANDA has been given the following [...] nasal (Flonase 0.05 mg/inh nasal spray) 2 [place](s), Nasal, two times a day fluticasone-salmeterol (Advair [...] Date Time Location Reason Provider 12/05/2013 13:00 [facility] ALLERGY IMMUNOLOGY Lory Villa MD 12/18/2013 15:20 [facility] ALLERGY IMMUNOLOGY 36 wk ob check/us room Iva Guerrero CNP, I, DHIRAJ LANDA , have received the attached patient education materials/instructionsand have verbalized understanding: Patient Signature Date Time Care Provider Signature Date Time 84609 Kick Counts Its normal to worry about [...] felt your baby move all day. ?? 7928-[address], [place] [address]. All rights reserved. This information is not intended as a substitute for professional medical care. Always follow your healthcare professional's instructions. [id number] PREMATURE LABOR Premature Labor (also called Pre-term [...] you don't know what it is ?? 0080-8288 [place] [address]. All rights reserved. This information is not intended as a substitute for professional medical care. Always follow your healthcare professional's instructions. [id number] FALSE LABOR [term ] If your is [...] are having false or true labor ?? 7824-2062 [facility], [address] [place] [address], [place] [address]. All rights reserved. This information is not intended as a substitute for professional medical care. Always follow your healthcare professional's instructions. This document has images extracted. Please consider using [employer] for all your patient education needs. Source: [facility] POWERCHART Document Id: [id number] Erwin Trejo R.N. - 12/02/2013 8:06 PM CDT Hospital Discharge Medication List [facility] [address] [address] Discharge Medication List Name: DHIRAJ LANDA Current Date: 12/02/2013 20:06:42 : 1995 12:00 AM [facility] Number: [id number] Patient Address: [address] [place] [phone] Patient Primary Care Provider: Name: PCP, UNASSIGNED - RW Phone: Discharge Diagnosis: [facility] in [place] would like to thank you for allowing [...] nasal (Flonase 0.05 mg/inh nasal spray) 2 [place](s), Nasal, two times a day fluticasone-salmeterol (Advair [...] Comment: Electronically Signed By: Signed On: Source: [facility] POWERCHART Document Id: [id number] documented in this encounter Medications at Time [...] documented as of this encounter Progress Notes Lory Villa M.D. - 12/02/2013 7:46 PM CDT [...] 155 +qualifying accelerations no decels +moderate variability [place]: rare uterine contractions A: Category 1 tracing Plan: 1. Discharge Home 2. Precautions Discussed 3. Follow up for scheduled appointment Electronically Signed By: LORY VILLA MD On: 12/02/2013 07:51 PM Source: [facility] POWERCHART Document Id: [id number] documented in this encounter Nursing Notes Erwin Trejo, R.N. - 12/02/2013 8:01 PM CDT Nursing Discharge Summary Nursing Discharge Summary Entered On: 12/02/2013 20:06 CDT Performed On: 12/02/2013 20:01 CDT by ERWIN TREJO RN DC Information Date/Time of Discharge : 12/02/2013 20:15 CDT ERWIN TREJO RN - 12/02/2013 20:19 CDT Discharged to : Home independently Current Home Treatments : None Home Equipment : None Professional Skilled Services : None Special Services and Community Resources : None Mode of Discharge : Ambulatory Discharge Transportation : Private vehicle Accompanied By : ERWIN TREJO RN - 12/02/2013 20:01 CDT Education [...] Printed materials Teaching Evaluation : Verbalizes understanding ERWIN TREJO RN - 12/02/2013 20:01 CDT Valuables/Belongings Belongings Sent Home With : All valuables and belongings sent home with patient. Home Medication Disposition : None brought in with patient ERWIN TREJO RN - 12/02/2013 20:01 CDT [facility] Document Id: [id number] CDT!3 Erwin Trejo R.N. - 12/02/2013 7:48 PM CDT Ongoing Assessment Antepartum Ongoing Assessment Antepartum Entered On: 12/02/2013 20:31 CDT Performed On: 12/02/2013 19:48 CDT by ERWIN TREJO RN FHR, Franco/Baby A Uterine Contraction Monitoring Method : External toco Uterine Contraction Frequency : 3-7 (Comment: pt. doesn't feel them [ERWIN TREJO RN - 12/02/2013 20:26 CDT] ) [...] discharge patient to home at this time. ERWIN TREJO RN - 12/02/2013 20:26 CDT Psycho/Emotional Pain Symptoms : No ERWIN TREJO RN - 12/02/2013 20:32 CDT Source: [facility] [employer] Document Id: [id number] CDT!3 Erwin Trejo R.N. - 12/02/2013 7:30 PM CDT Ongoing Assessment Antepartum Ongoing Assessment Antepartum Entered On: 12/02/2013 20:26 CDT Performed On: 12/02/2013 19:30 CDT by ERWIN TREJO RN FHR, Franco/Baby A Uterine Contraction Monitoring Method : External toco Uterine Contraction Frequency : 8 (Comment: pt. doesn't feel them [ERWIN TREJO RN - 12/02/2013 20:22 CDT] ) [...] : Yes FHR Provider Notified : Yes ERWIN TREJO RN - 12/02/2013 20:22 CDT Psycho/Emotional Pain Symptoms : No ERWIN TREJO RN - 12/02/2013 20:32 CDT Source: [employer] Document Id: [id number] CDT!3 Erwin Trejo R.N. - 12/02/2013 7:10 PM CDT Ongoing Assessment Antepartum Ongoing Assessment Antepartum Entered On: 12/02/2013 19:46 CDT Performed On: 12/02/2013 19:10 CDT by ERWIN TREJO RN Triage Chief Complaint : decreased movement Movement : Present Last Movement Date/Time Subjective : 12/02/2013 19:10 CDT Contractions, Subjective : No Urge To Push, Subjective : No Leaking Fluid, Subjective : No Vaginal Bleeding : No Intensity : 0 Heart Rate : 155 /min Acute Respiratory or Cardiac Distress : No ERWIN TREJO RN - 12/02/2013 19:39 CDT Psycho/Emotional Affect/Behavior : Calm Pain Symptoms : No ERWIN TREJO RN - 12/02/2013 20:19 CDT Source: [employer] Document Id: [id number] CDT!4 documented in this encounter Miscellaneous Notes Miscellaneous - Erwin Trejo, R.N. - 12/02/2013 8:07 PM CDT Hospital Patient Education The following Patient Education Materials have been given to the patient: Patient Education Materials: Ambulatory PREMATURE LABOR FALSE LABOR Director Funds Development Kick Counts Understanding Preeclampsia Ambulatory [id number] PREMATURE LABOR Premature Labor (also called Pre-term [...] you don't know what it is ?? 6418-0023 [employer], [address] [facility], [place] [address]. All rights reserved. This information is not intended as a substitute for professional medical care. Always follow your healthcare professional's instructions. [id number] FALSE LABOR [term ] If your is [...] are having false or true labor ?? 1122-9633 [facility], [address] [place] [address]. All rights reserved. This information is not intended as a substitute for professional medical care. Always follow your healthcare professional's instructions. Director Funds Development 89994 Kick Counts Its normal to worry about [...] felt your baby move all day. ?? 6400-0786 [facility], [address] [place] [address]. All rights reserved. This information is not intended as a substitute for professional medical care. Always follow your healthcare professional's instructions. [address] Understanding Preeclampsia Preeclampsia is a problem that [...] preeclampsia also will go away soon. ?? 0493-9319 [employer], [address] [place] [address]. All rights reserved. This information is not intended as a substitute for professional medical care. Always follow your healthcare professional's instructions. This document has images extracted. Please consider using [employer] for all your patient education needs. Source: [facility] POWERCHART Document Id: [id number] documented in this encounter Plan of Treatment Not on filedocumented as of this encounter Visit Diagnoses Not on filedocumented in this encounter
--- OUTSIDE RECORDS SUMMARY | 2022-06-01 09:42 | XMS_ITS | Encounter Summary ---
:[address] [facility] Address [address] [place] [address] Care Team Providers Name Role Phone Unavailable [...] often do you attend roman catholic or samaritan Never 10/23/2020 services? 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
--- OUTSIDE RECORDS SUMMARY | 2022-06-01 09:42 | XMS_ITS | Encounter Summary ---
:1995 Author Organization [facility] Address [address] [place] [id number] Care Team Providers Name Role Phone Unavailable Primary Care Provider Unavailable Encounter Details Date Type Department Care Team Description 12/26/2013 - Hospital Encounter HX [facility] Carlee Alfonso 12/29/2013 ZHEN Baker M.D. [address] [place] [id number] Social History Tobacco Use Types Packs/Day [...] often do you attend roman catholic or evangelical Never 10/23/2020 services? 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 - 12/29/2013 12:08 PM CDT Hospital Discharge Instructions [address] [address] Patient Discharge Instructions Name: DHIRAJ JOSEPH Current Date: 12/29/2013 12:08:48 : 1995 12:00 AM [facility] Number: [id number] Patient Address: [address] [place] [phone] Patient Primary Care Provider: Name: PCP, UNASSIGNED - RW Phone: Discharge Diagnosis: [facility] would like to thank you for allowing us to assist you with yourhealthcare needs. The following includes patient education materials and information regarding your injury/illness. 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 ?? [id number] [facility], [address] [place] [address], [place] [address]. All rights reserved. This information is not intended as a substitute for professional medical care. Always follow your healthcare professional's instructions. This document has images extracted. Please consider using [employer] for all your patient education needs. Source: [facility] POWERCHART Document Id: [id number] Lexii Parkinson R.N. - 12/29/2013 12:08 PM CDT Hospital Discharge Medication List [facility] [address] [place] [address] Discharge Medication List Name: DHIRAJ JOSEPH Current Date: 12/29/2013 12:08:47 : 1995 12:00 AM [facility] Number: [id number] Patient Address: [address] [place] [phone] Patient Primary Care Provider: Name: PCP, UNASSIGNED - RW Phone: Discharge Diagnosis: [facility] in [place] would like to thank you for allowing [...] nasal (Flonase 0.05 mg/inh nasal spray) 2 Jack(s), Nasal, two times a day fluticasone-salmeterol (Advair [...] CARLEE MADRID MD Signed On:29-DEC-2013 07:20:21 Source: [facility] POWERCHART Document Id: [id number] Carlee Madrid M.D. - 12/29/2013 7:11 AM [...] counts correct. No sponges retained. Excellent hemostasis. BQS=211. 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 - 12/27/2013 7:04 PM [...] 22.4 x10(9)/L (12/27/13) RDW: 12.7 % (12/27/13) [place] Absolute: 0.72 x10(9)/L (12/26/13) Eos Absolute: 0.11 [...] HARRINGTON MD On: 12/27/2013 07:07 PM Source: [facility] POWERCHART Document Id: [id number] documented in this encounter H&P Notes Carlee [...] EFM 155 +qa no decels +mod variability [place]: q4 minutes A: Early Term SROM, Cat [...] decels, + accelerations - catagory 1 tracing [place] - contractions every 2-5 minutes Cervix -6/80%/0 [...] decels, + accelerations - catagory 1 tracing [place] - contractions every 2-6 minutes Cervix -deferred [...] MADRID MD On: 12/26/2013 04:18 PM Source: [facility] POWERCHART Document Id: [id number] Lulu Richardson, R.N. - 12/26/2013 4:04 PM [...] Preferred Communication Mode : Verbal Languages : Namibian Last Food Intake Date & Time : [...] CARLEE MADRID MD Exercise induced (SNOMED CT :554496056 ) Name of Problem: ; Onset Date: 06/06/2013 ; Recorder: JOY JOHNSON LPN; Confirmation: Confirmed ; Classification: Medical ; Code: 838387588 ; Last Updated: 11/20/2013 8:42 CDT ; Life Cycle Status: Active ; Responsible Provider: BRIDGET HARRINGTON MD; Vocabulary: SNOMED CT Supervision of Normal First (ICD-9-CM :V22.0 ) Name of Problem: Supervision of Normal First ; Onset Date: 06/06/2013 ; Confirmation: Confirmed ; Classification: Medical ; Code: V22.0 ; Contributor System: [facility] ; Last Updated: 11/10/2013 14:41 CDT ; [...] IV fentanyl before epidural Delivery Plan : Account Development Specialist does not wish to cut cord Infant Feeding : Breastfeed shortly after LULU RICHARDSON [...] smoker Smoking Status : Former smoker LULU RICHRADSON RN - 12/26/2013 16:04 CDT Tobacco Use [...] Psychosocial Support Person's Name : Swapna Support Person/Account Development Specialist Relationship to Pt : Mother Other Support People : Jason Father of Baby Involved? : Yes Pain Symptoms : No Domestic Abuse Concerns : None Concerns About Family Members at Home : No Emotional Support Available : Yes Chronic/Terminal Illness Freq Visits : No Financial Concerns Regarding Hospitalization/Discharge : No Behavioral Health Screen/Safety Assmt : Yes Coping : Effective Spiritism Preference : Unknown LULU RICHARDSON RN - 12/26/2013 16:04 CDT Advance Directive Advanced Directives : No LULU RICHARDSON RN - 12/26/2013 16:04 CDT Educ Needs Patient/Family Education Needs : Medications, Pain management, Plan of care LULU RICHARDSON RN - 12/26/2013 16:04 CDT Learning Style Preference Adult Grid Patient : Demonstration, Verbal explanation Family : None LULU RICHARDSON [facility] 12/26/2013 16:04 CDT General Level of Consciousness : Alert Orientation : Oriented x 3 Affect/Behavior : Calm Distress : None Skin Color : Normal for ethnicity Skin Description : Dry Skin Temperature : Warm LULU RICHARDSON [facility] 12/26/2013 16:04 CDT Cardiovascular Heart Rhythm : Regular Edema Assessment : No LULU RICHARDSON [facility] 12/26/2013 16:04 CDT Pulses Grid Radial Pulse, Left : 2+ Normal Radial Pulse, Right : 2+ Normal LULU RICHARDSON [facility] 12/26/2013 16:04 CDT Respiratory Respiratory Pattern : Regular All Lobes Breath Sounds : Clear Respirations : Unlabored Cough : None LULU RICHARDSON [facility] 12/26/2013 16:04 CDT Gastrointestinal Bowel Sounds All Quadrants : Present Abdomen Palpation : Soft Passing Flatus : Yes LULU RICHARDSON [facility] 12/26/2013 16:04 CDT Genitourinary Patient Stated Symptoms : None LULU RICHARDSON [facility] 12/26/2013 16:04 CDT Musculoskeletal Musculoskeletal Patient Stated Symptoms : None LULU RICHARDSON [facility] 12/26/2013 16:04 CDT Integumentary Integumentary Patient Stated Symptoms : None Skin Integrity : Intact Mucous Membrane Color : [place] Mucous Membrane Description : Moist Skin Color : Normal for ethnicity Skin Description : Dry Skin Temperature : Warm LULU RICHARDSON [facility] 12/26/2013 16:04 CDT Neurological Clonus : Not present Extremity Movement : Equal Gait : Steady LULU RICHARDSON - 12/26/2013 16:04 CDT Left Knee Reflex Left Knee : 2+ Right Knee : 2+ LULU RICHARDSON [facility] 12/26/2013 16:04 CDT Peripheral IV Peripheral [...] RICHARDSON RN - 12/26/2013 16:04 CDT Source: [employer] Document Id: [id number] CDT!174 documented in this encounter Procedure Notes [...] CHELSEA SAUCEDO - 12/28/2013 22:28 CDT Source: [facility] [employer] Document Id: [id number] CDT!11 Bridget Harrington M.D. - 12/27/2013 5:21 [...] counts correct. No sponges retained. Excellent hemostasis. AQP=484. Placenta to pathology for prolonged rupture and episodes of tachycardia. Electronically Signed By: BRIDGET HARRINGTON MD On: 12/27/2013 05:35 PM Modified by and Electronically Signed by: BRIDGET HARRINGTON MD On: 12/27/2013 05:35 PM Source: [facility] [employer] Document Id: [id number] Teresa Alicia, R.N. - 12/27/2013 4:41 AM CDT Urinary Catheter Insertion/Discontinuation Urinary Catheter Insertion/Discontinuation Entered On: 12/27/2013 4:42 CDT Performed On: 12/27/2013 4:41 CDT by TERESA ALICIA RN Urinary Catheter Urinary Catheter Activity Type : Insert Urinary Catheter Insertion Site : Urethral Urinary Catheter Size : 16 Upper Sorbian Urinary Catheter Type : Indwelling/Continuous Date/Time Catheter Insertion : 12/27/2013 3:45 CDT Urinary Catheter Balloon Inflation : 10 mL sterile water Urinary Catheter Secured : Tape Urinary Catheter Drainage System : Dependent drainage bag Urinary Catheter Procedure Response : Expected Urinary Catheter Procedure Tolerance : Good TERESA ALICIA RN - 12/27/2013 4:41 CDT Source: [facility] [employer]123CHART Document Id: [id number] CDT!12 Teresa Alicia R.N. - 12/27/2013 3:00 [...] No complications Intraspinal Flow Control Device : INSEMINATOR TERESA ALICIA RN - 12/27/2013 3:16 CDT Source: [employer] Document Id: [id number] CDT!8 Lulu Richardson R.N. - 12/26/2013 4:33 [...] RICHARDSON RN - 12/26/2013 16:33 CDT Source: [employer] Document Id: [id number] CDT!15 documented in this encounter Nursing Notes Matt Sterling R.N., I.B.C.L.C. - 12/29/2013 1:30 PM CDT Assessment Assessment Entered On: 12/29/2013 14:33 CDT Performed On: 12/29/2013 13:30 CDT by MATT STERLING space systems operations superintendent Assessment Indication : Ongoing Assessment Referral : discretion Communications Controller Needed : No Visit Summary : Medical Pathologist visit on day of discharge. Mom is independent in latch on when using cross cradle hold, breasts are starting to change, nipples are intact, using warm soak, hydrogel and breastmilk. Hand Medela pump sent with her, cold therapy sent as well. Problems Identified - [place] : Late Infant, Weight loss Problems Identified - Mother : [...] adequate, Late Infant, Milk Supply - Establishing, Nipple management, hydrogels, [...] STERLING RN - 12/29/2013 14:29 CDT Source: [facility] [employer] Document Id: [id number] CDT!31 Chelsea Saucedo R.N. - 12/29/2013 2:00 AM CDT Post Assessment * Post Assessment * Entered On: 12/29/2013 3:42 CDT Performed On: 12/29/2013 2:00 CDT by CHELSEA SAUCEDO Post Assessment * Breast Condition : Soft Nipples : Tender Nipple tenderness location : Bilateral Breast Secretions : Colostrum Breast Management : Hydrogels Feeding Method : Infant Sucking : Latches [...] Rhythm : Regular Nail Bed Color : [place] Capillary Refill : Less than 2 seconds Edema Assessment : No Skin Color : Normal for ethnicity Skin Description : Normal Skin Temperature : Warm Activity Tolerance : Without distress CHELSEA SAUCEDO - 12/29/2013 3:38 CDT Neurological Neuro Patient Stated Symptoms : None Level of Consciousness : Alert Gait : Steady Swallowing Difficulty/Aspiration Risk : None CHELSEA SAUCEDO 12/29/2013 3:38 CDT Marion Coma Eye Opening Response Marion : Spontaneously Best Verbal Response Mariangel : Oriented Best Motor Response Marion : Obeys simple commands Marion Coma Score : 15 CHELSEA SAUCEDO 12/29/2013 [...] Nutrition Krzysztof : Adequate Friction and Shear Krzysztof : No apparent [...] understanding CHELSEA SAUCEDO 12/29/2013 3:38 CDT Source: [facility] POWERCHART Document Id: [id number] CDT!90 Matt Sterling R.N., I.BGonzaloCGonzaloLGonzaloC. - 12/28/2013 2:30 PM CDT Assessment Assessment Entered On: 12/28/2013 15:58 CDT Performed On: 12/28/2013 14:30 CDT by MATT STERLING RN Assessment Assessment Indication : Consult Referral : discretion Communications Controller Needed : No Visit Summary : Medical Pathologist visit to review skin care management with colostrum and hydrogels, Give Rx to grandmother for electric pump. L1 at 37 4/7 weeks gestation, apgars 8 and 9, A+,GBS +, SPROM and Pitocin augmentation of labor. 149 minute second stage, , laceration only. Problems Identified - [place] : Late Infant Problems Identified - Mother : Feeding plan [...] Late Infant, Milk Supply - Establishing, behavior, [place], sleep states, Nipple management, hydrogels, Position, cross cradle, Swallowing pattern, Swallowing sound (Comment: Introduced device sales consultant role, demonstrated hand expression, assisted with [...] for electric pump and second night sheet. [MTAT STERLING RN - 12/28/2013 15:51 CDT] ) Teaching Evaluation : Returns demonstrations correctly, Verbalizes understanding MATT STERLING RN - 12/28/2013 15:51 CDT Source: [facility] POWERCHART Document Id: [id number] CDT!36 Lexii Parkinson R.N. - 12/28/2013 9:30 [...] Rhythm : Regular Nail Bed Color : [place] Capillary Refill : Less than 2 seconds Skin Color : Normal for ethnicity Skin Description : Normal Skin Temperature : Warm Activity Tolerance : Without distress LEXII REEVES RN - 12/29/2013 7:44 CDT Neurological Neuro Patient Stated Symptoms : None Orientation : Oriented x 3 Level of Consciousness : Alert LEXII REEVES RN - 12/29/2013 7:44 CDT Marion Coma Eye Opening Response Mariangel : Spontaneously Best Verbal Response Marion : Oriented Best Motor Response Mariangel : Obeys simple commands Marion Coma Score : 15 LEXII REEVES RN [...] REEVES RN - 12/29/2013 7:44 CDT Source: [facility] POWERCHART Document Id: [id number] CDT!64 Lexii Parkinson RChristy - 12/28/2013 8:20 AM CDT Post Assessment * Post Assessment * Entered On: 12/28/2013 8:33 CDT Performed On: 12/28/2013 8:20 CDT by LEXII REEVES RN Post Partum Assessment * Breast Condition : Soft Infant Feeding Method : LEXII REEVES RN - 12/28/2013 8:20 CDT Respiratory Respiratory Patient Stated Symptoms : None Respirations : Unlabored Respiratory Pattern : Regular All Lobes Breath Sounds : Clear Cough : None LEXII REEVES RN - 12/28/2013 8:20 CDT Cardiovascular CV Patient Stated Symptoms : None Heart Rhythm : Regular Nail Bed Color : Big Flat LEXII REEVES RN - 12/28/2013 8:20 CDT Neurological Neuro Patient Stated Symptoms : None Orientation : Oriented x 3 Level of Consciousness : Alert LEXII REEVES RN - 12/28/2013 8:20 CDT Mariangel Coma Eye Opening Response Mariangel : Spontaneously Best Verbal Response Mariangel : Oriented Best Motor Response Marion : Obeys simple commands Marion Coma Score : 15 LEXII REEVES RN [...] No apparent problem Krzysztof Score : 23 MATTJuliusLEXII RN - 12/28/2013 8:20 CDT Musculoskeletal Musculoskeletal Patient Stated Symptoms : None Activity Tolerance : Without distress Musculoskeletal Note : DTR's normal, Clonus +1 KANJulius LEXII RN - 12/28/2013 8:20 CDT Peripheral IV Peripheral IV Assess/Intervention Grid Peripheral IV #1 IV Activity : Assessment IV Site : Hand Laterality : Left Catheter Size : 20 Catheter Type : Over the needle LEXII REEVES RN - 12/28/2013 8:20 CDT Source: [employer] Document Id: [id number] CDT!53 Teresa Alicia RGonzaloNGonzalo - 12/28/2013 6:41 AM CDT Post Assessment [...] ALICIA RN - 12/28/2013 6:41 CDT Source: [employer] Document Id: [id number] CDT!16 Teresa Alicia R.NGonzalo - 12/28/2013 5:46 AM CDT Post Assessment * Post Assessment * Entered On: 12/28/2013 5:46 CDT Performed On: 12/28/2013 5:46 CDT by TERESA ALICIA RN Extremities Extremities : Edema Clonus : Not present TERESA ALICIA RN - 12/28/2013 5:46 CDT Lower Extremities Reflex Grid Left Knee : 1+ Right Knee : 1+ ETRESA ALICIA RN - 12/28/2013 5:46 CDT Respiratory Respiratory Patient Stated Symptoms : None Respirations : Unlabored Respiratory Pattern : Regular All Lobes Breath Sounds : Clear Cough : None Sputum Amount : None Airway : Patent TERESA ALICIA RN - 12/28/2013 5:46 CDT Psycho/Emotional Pain Symptoms : No TERESA ALICIA RN - 12/28/2013 5:46 CDT Source: [employer] Document Id: [id number] CDT!17 Teresa Alicia RGonzaloNGonzalo - 12/28/2013 3:39 [...] ALICIA RN - 12/28/2013 3:39 CDT Source: [employer] Document Id: [id number] CDT!11 Teresa Alicia RGonzaloNGonzalo - 12/28/2013 2:31 [...] ALICIA RN - 12/28/2013 3:39 CDT Source: [employer] Document Id: [id number] CDT!3 Teresa Alicia R.N. - 12/28/2013 1:30 [...] ALICIA RN - 12/28/2013 1:30 CDT Source: [employer] Document Id: [id number] CDT!15 Teresa Alicia R.NGonzalo - 12/28/2013 1:24 AM CDT md angelina Harrington was notified about pt elevated blood pressures and abnormal lab results. Pt denies headache, blurry vision, or right upper quadrant pain. Orders recieved and MD to come and evaluatept at bedside. Electronically Signed By: TERESA ALICIA RN On: 12/28/2013 01:25 AM Source: [employer] Document Id: [id number] Teresa Alicia R.N. - 12/28/2013 12:32 AM [...] ALICIA RN - 12/28/2013 0:34 CDT Source: [employer] Document Id: [id number] CDT!11 Teresa Alicia R.N. - 12/28/2013 12:18 AM CDT PRN Response PRN Response Entered On: 12/28/2013 0:18 CDT Performed On: 12/28/2013 0:18 CDT by TERESA ALICIA RN PRN Medication Effectiveness Evaluation PRN Medication Effective : Yes TERESA ALICIA RN - 12/28/2013 0:18 CDT Source: [employer] Document Id: [id number] CDT!3 Teresa Alicia R.N. - 12/27/2013 11:30 [...] ICU : S1S2 Nail Bed Color : [place] Capillary Refill : Less than 2 seconds TERESA ALICIA RN - 12/27/2013 23:45 CDT Pulses Grid Radial Pulse, Left : 2+ Normal Radial Pulse, Right : 2+ Normal Dorsalis Pedis Pulse, Left : 2+ Normal Dorsalis Pedis Pulse, Right : 2+ Normal TERESA ALICIA RN - 12/27/2013 23:45 CDT Skin Color : Normal for ethnicity Skin Description : Dry Skin Temperature : Warm Activity Tolerance : Minimal distress TERESA ALICIA ANGIE - 12/27/2013 23:45 CDT Neurological Neuro Patient Stated Symptoms : None Orientation : Oriented x 3 Swallowing Difficulty/Aspiration Risk : None TERESA ALICIA Samuel ADAMS - 12/27/2013 23:45 CDT Mariangel Coma Eye Opening Response Marion : Spontaneously Best Verbal Response Marion : Oriented Best Motor Response Mariangel : Obeys simple commands Mariangel Coma Score : 15 TERESA ALICIA ANGIE - 12/27/2013 23:45 CDT Psycho/Emotional Affect/Behavior : [...] Meet Safety Needs : Yes RAVIN TERESA Samuel ADAMS - 12/27/2013 23:45 CDT Gastrointestinal GI Patient Stated Symptoms : None Abdomen Description : Rounded Abdomen Palpation : Non-Tender, Soft Bowel Sounds All Quadrants : Present TERESA ALICIA Samuel ADAMS - 12/27/2013 23:45 CDT Nutrition Eating Difficulties : None Appetite : Good RAVINTERESA GONZALEZ RN - 12/27/2013 23:45 CDT Genitourinary Patient Stated Symptoms : None Urinary Elimination : Voiding, no difficulties Urine Color : Yellow Urine Description : Clear TERESA ALICIA Samuel ADAMS - 12/27/2013 23:45 CDT Integumentary Integumentary Patient Stated Symptoms : None Skin Integrity : Not intact Mucous Membrane Color : [place] Mucous Membrane Description : Moist Skin Color [...] Strong to gravity and resistance TERESA ALICIA - 12/27/2013 23:45 CDT TERESA ALICIA RN - 12/27/2013 23:45 CDTFTERESA DINERO - 12/27/2013 23:45 CDT TERESA ALICIA - 12/27/2013 23:45 CDT Peripheral IV Peripheral [...] TERESA ALICIA RN - 12/27/2013 23:45 CDT Hendrich II Fall Risk Confusion/Disorientation Hendrich [...] Baby home safety, Medication dosage, route, scheduling, behavior, Normal , Pain management, Nargis-Care, Plan of care, complications, Safety, fall Individuals Taught : Patient Barriers to Learning : None evident Teaching Method : Explanation Teaching Evaluation : Verbalizes understanding TERESA ALICIA RN - 12/27/2013 23:45 CDT Source: [employer] Document Id: [id number] CDT!153 Teresa Alicia R.N. - 12/27/2013 10:26 [...] ALICIA RN - 12/27/2013 22:26 CDT Source: [employer] Document Id: [id number] CDT!9 Teresa Alicia R.N. - 12/27/2013 10:01 [...] ALICIA RN - 12/27/2013 22:01 CDT Source: [employer] Document Id: [id number] CDT!16 Teresa Alicia R.N. - 12/27/2013 9:46 [...] ALICIA RN - 12/27/2013 21:46 CDT [facility] Document Id: [id number] CDT!14 Teresa Alicia R.N. - 12/27/2013 9:30 PM CDT Post Assessment * Post Assessment * Entered On: 12/27/2013 21:38 CDT Performed On: 12/27/2013 21:30 CDT by TERESA ALICIA RN Extremities Extremities : Edema Clonus : Not present TEREAS ALICIA RN - 12/27/2013 21:37 CDT Lower [...] ALICIA RN - 12/27/2013 21:37 CDT Source: [facility] POWERCHART Document Id: [id number] CDT!14 Teresa Alicia R.N. - 12/27/2013 7:25 [...] location : Bilateral Breast Secretions : Colostrum Infant Feeding Method : Sucking : Latches [...] ICU : S1S2 Nail Bed Color : [place] Capillary Refill : Less than 2 seconds [...] TERESA ALICIA RN - 12/27/2013 20:07 CDT Marion Coma Eye Opening Response Marion : Spontaneously Best Verbal Response Mariangel : Oriented Best Motor Response Marion : Obeys simple commands Marion Coma Score : 15 TERESA ALICIA RN - 12/27/2013 20:07 CDT Psycho/Emotional Affect/Behavior [...] : Not intact Mucous Membrane Color : [place] Mucous Membrane Description : Moist Skin Color [...] to injury warm and pink TERESA ALICIA [facility] - 12/27/2013 20:07 CDT Krzysztof Sensory Perception Krzysztof : No impairment Moisture Krzysztof : Rarely moist Activity Krzysztof : Walks frequently Mobility Krzysztof : No limitations Nutrition Krzysztof : Excellent Friction and Shear Krzysztof : No apparent problem Krzysztof Score : 23 TERESA ALICIA [facility] - 12/27/2013 20:07 CDT Musculoskeletal Musculoskeletal Patient Stated Symptoms : None Activity Tolerance : Without distress TERESA ALICIA [facility] - 12/27/2013 20:07 CDT Musculoskeletal Strength Grid Left Upper Extremity Right Upper Extremity Left Lower Extremity Right Lower Extremity Strength : Strong to gravity and resistance Strong to gravity and resistance Strong to gravity and resistance Strong to gravity and resistance TERESA ALIICA [facility] - 12/27/2013 20:07 CDT TERESA ALICIA [facility] - 12/27/2013 20:07 CDTFTERESA DINERO [facility] 12/27/2013 20:07 CDT TERESA ALICIA [facility] - 12/27/2013 20:07 CDT Peripheral IV [...] Flow/ Patency : No complications TERESA ALICIA - 12/27/2013 20:07 CDT Henddonald II Fall Risk Confusion/Disorientation Hend[place] : No [...] : , Colostrum, Medication dosage, route, scheduling, [place] behavior, Normal , Nargis-Care, Plan of care, Safety, fall Individuals Taught : Patient Barriers to Learning : None evident Teaching Method : Explanation Teaching Evaluation : Verbalizes understanding TERESA ALICIA RN - 12/27/2013 20:07 CDT Source: [facility] [employer] Document Id: [id number] CDT!161 Laurie Ely R.N. - 12/27/2013 6:30 [...] ELY RN - 12/27/2013 19:57 CDT Source: [facility] [employer] Document Id: [id number] CDT!10 Ankush Hinds R.N. - 12/27/2013 6:24 [...] HINDS RN - 12/27/2013 18:24 CDT [facility] Document Id: [id number] CDT!6 Laurie Ely R.N. - 12/27/2013 6:00 [...] ELY RN - 12/27/2013 19:56 CDT Source: [employer] Document Id: [id number] CDT!10 Laurie Ely R.N. - 12/27/2013 5:30 [...] ELY RN - 12/27/2013 19:54 CDT Source: [employer] Document Id: [id number] CDT!10 Laurie Ely R.N. - 12/27/2013 5:15 [...] ELY RN - 12/27/2013 19:53 CDT Source: [facility] [employer] Document Id: [id number] CDT!10 Laurie Ely R.N. - 12/27/2013 4:59 [...] Yes FHR Comment : delivery of female at this time LAURIE ELY RN - 12/27/2013 19:20 CDT Psycho/Emotional Pain Symptoms : Yes LAURIE ELY RN - 12/27/2013 19:20 CDT Pain Pain Assessment Grid Pain 1 Location : Abdomen LAURIE ELY RN - 12/27/2013 19:20 CDT Source: [employer] Document Id: [id number] CDT!20 Laurie Ely R.N. - 12/27/2013 4:30 [...] ELY RN - 12/27/2013 19:18 CDT [facility] Document Id: [id number] CDT!22 Laurie Ely R.N. - 12/27/2013 4:00 [...] 1 Location : Abdomen Intensity : 4 LAUREI ELY RN - 12/27/2013 19:16 CDT Source: [employer] Document Id: [id number] CDT!20 Laurie Ely R.N. - 12/27/2013 3:30 [...] ELY RN - 12/27/2013 19:14 CDT Source: [employer] Document Id: [id number] CDT!20 Laurie Ely R.N. - 12/27/2013 3:00 [...] ELY RN - 12/27/2013 19:12 CDT Source: [employer] Document Id: [id number] CDT!20 Laurie Ely R.N. - 12/27/2013 2:45 [...] ELY RN - 12/27/2013 19:12 CDT Source: [employer] Document Id: [id number] CDT!8 Laurie Ely R.N. - 12/27/2013 2:30 [...] ELY RN - 12/27/2013 19:07 CDT [facility] [employer] Document Id: [id number] CDT!28 Laurie Ely R.N. - 12/27/2013 2:00 [...] 19:05 CDT Psycho/Emotional Pain Symptoms : Yes LUARIE ELY RN - 12/27/2013 19:05 CDT Pain Pain Assessment Grid Pain 1 Location : Abdomen Intensity : 4 Interventions : Medications, Repositioning LAURIE ELY RN - 12/27/2013 19:05 CDT Source: [employer] Document Id: [id number] CDT!21 Laurie Ely R.N. - 12/27/2013 1:30 PM CDT Ongoing Assessment Antepartum Ongoing Assessment Antepartum Entered On: 12/27/2013 14:04 CDT Performed On: 12/27/2013 13:30 CDT by LAURIE EYL RN FHR, Franco/Baby A Uterine Contraction Monitoring [...] ELY RN - 12/27/2013 13:45 CDT Source: [employer] Document Id: [id number] CDT!22 Laurie Ely R.N. - 12/27/2013 1:00 [...] ELY RN - 12/27/2013 13:43 CDT Source: [employer] Document Id: [id number] CDT!17 Laurie Ely R.N. - 12/27/2013 12:30 [...] ELY RN - 12/27/2013 12:46 CDT Source: [facility] [facility] Document Id: [id number] CDT!3 Laurie Ely R.N. - 12/27/2013 12:00 PM CDT [...] ELY RN - 12/27/2013 12:22 CDT Source: [employer] Document Id: [id number] CDT!17 Laurie Ely R.N. - 12/27/2013 11:36 [...] ELY RN - 12/27/2013 11:36 CDT Source: [facility] [facility] Document Id: [id number] CDT!16 Laurie Ely R.N. - 12/27/2013 11:00 [...] ELY RN - 12/27/2013 11:23 CDT Source: [employer] Document Id: [id number] CDT!18 Laurie Ely R.N. - 12/27/2013 10:30 [...] ELY RN - 12/27/2013 11:20 CDT Source: [employer] Document Id: [id number] CDT!17 Laurie Ely R.N. - 12/27/2013 10:00 [...] ELY RN - 12/27/2013 10:00 CDT Source: [employer] Document Id: [id number] CDT!17 Laurie Ely R.N. - 12/27/2013 9:30 [...] ELY RN - 12/27/2013 9:47 CDT Source: [employer] Document Id: [id number] CDT!16 Laurie Ely R.N. - 12/27/2013 9:00 [...] ELY RN - 12/27/2013 9:35 CDT Source: [employer] Document Id: [id number] CDT!19 Laurie Ely R.N. - 12/27/2013 8:30 [...] ELY RN - 12/27/2013 9:35 CDT Source: [facility] [facility] Document Id: [id number] CDT!3 Laurie Ely R.N. - 12/27/2013 8:00 [...] ELY RN - 12/27/2013 9:30 CDT Source: [employer] Document Id: [id number] CDT!3 Laurie Ely R.N. - 12/27/2013 7:30 [...] ELY RN - 12/27/2013 9:21 CDT Source: [employer] Document Id: [id number] CDT!18 Laurie Ely R.N. - 12/27/2013 7:00 [...] ELY RN - 12/27/2013 9:19 CDT Source: [employer] Document Id: [id number] CDT!15 Teresa Alicia RGonzaloNGonzalo - 12/27/2013 6:48 AM CDT Md notification 0630- notified of change in base line heart rate in EFM to 160bpm. no new orders recieved. Electronically Signed By: TERESA ALICIA RN On: 12/27/2013 06:49 AM Source: [employer] Document Id: [id number] Teresa Alicia RGonzaloN. - 12/27/2013 6:45 AM CDT Md notification 0500- Dr. Madrid updated on pt condition. Epidural placement, low blood pressure during epiduralplacement, and cervical check. No new orders recieved. Electronically Signed By: TERESA ALICIA RN On: 12/27/2013 06:47 AM Source: [employer] Document Id: [id number] Teresa Alicia R.N. - 12/27/2013 6:00 AM [...] ALICIA RN - 12/27/2013 6:33 CDT Source: [employer] Document Id: [id number] CDT!9 Teresa Alicia R.N. - 12/27/2013 2:42 AM CDT PRN Response PRN Response Entered On: 12/27/2013 3:31 CDT Performed On: 12/27/2013 2:42 CDT by TERESA ALICIA RN PRN Medication Effectiveness Evaluation PRN Medication Effective : Yes Post Medication Pain Assessment : 8 TERESA ALICIA RN - 12/27/2013 3:31 CDT Source: [employer] Document Id: [id number] CDT!4 Teresa Alicia R.N. - 12/27/2013 2:24 [...] ALICIA RN - 12/27/2013 2:24 CDT Source: [employer] Document Id: [id number] CDT!34 Teresa Alicia RGonzaloNGonzalo - 12/27/2013 12:45 AM CDT Ongoing Assessment [...] ICU : S1S2 Nail Bed Color : Big Flat Capillary Refill : Less than 2 seconds TERESA ALICIA [facility] 12/27/2013 0:45 CDT Pulses Grid Radial Pulse, Left : 2+ Normal Radial Pulse, Right : 2+ Normal Dorsalis Pedis Pulse, Left : 2+ Normal Dorsalis Pedis Pulse, Right : 2+ Normal TERESA ALICIA [facility] 12/27/2013 0:45 CDT Skin Color : Normal for ethnicity Skin Description : Dry Skin Temperature : Warm Activity Tolerance : Minimal distress TERESA ALICIA [facility] - 12/27/2013 0:45 CDT Neurological Neuro Patient Stated Symptoms : None Orientation : Oriented x 3 Level of Consciousness : Alert Gait : Steady Swallowing Difficulty/Aspiration Risk : None TERESA ALICIA - 12/27/2013 0:45 CDT Marion Coma Eye Opening Response Marion : Spontaneously Best Verbal Response Mariangel : Oriented Best Motor Response Marion : Obeys simple commands Marion Coma Score : 15 TERESA ALICIA [facility] 12/27/2013 0:45 CDT Psycho/Emotional Affect/Behavior : Calm Pain Symptoms : Yes TERESA ALICIA [facility] 12/27/2013 0:45 CDT Coping Grid Identifies effective [...] Values/Beliefs incorporated appropriately : Yes RAVINTERESA CANSECO [facility] - 12/27/2013 0:45 CDT Safety Grid Vision, Hearing, Mobility Adequate to Meet Safety Needs : Yes TERESA ALICIA [facility] 12/27/2013 0:45 CDT Pain Pain Assessment Grid Pain 1 Location : Abdomen Laterality : Bilateral TERESA ALICIA [facility] - 12/27/2013 0:45 CDT Gastrointestinal GI Patient Stated Symptoms : None Abdomen Description : Rounded Abdomen Palpation : Soft, Tender Tenderness : Left lower quadrant, Right lower quadrant Bowel Sounds All Quadrants : Present TERESA ALICIA - 12/27/2013 0:45 CDT Nutrition Eating Difficulties : None Appetite : Good RAVIN TERESA [facility] 12/27/2013 0:45 CDT Genitourinary Patient Stated Symptoms : None Urinary Elimination : Voiding, no difficulties Urine Color : Yellow Urine Description : Clear TERESA ALICIA [facility] 12/27/2013 0:45 CDT Integumentary Integumentary Patient Stated Symptoms : None Skin Turgor : Elastic Skin Integrity : Intact Mucous Membrane Color : [place] Mucous Membrane Description : Moist Skin Color : Normal for ethnicity Skin Description : Dry Skin Temperature : Warm TERESA ALICIA [facility] - 12/27/2013 0:45 CDT Krzysztof Sensory Perception Krzysztof : No impairment Moisture Krzysztof : Rarely moist Activity Krzysztof : Walks frequently Mobility Krzysztof : No limitations Nutrition Krzysztof : Excellent Friction and Shear Krzysztof : No apparent problem Krzysztof Score : 23 TERESA ALICIA [facility] 12/27/2013 0:45 CDT Musculoskeletal Musculoskeletal Patient Stated Symptoms : None TERESA ALICIA [facility] 12/27/2013 0:45 CDT Musculoskeletal Strength Grid Left Upper Extremity Right Upper Extremity Left Lower Extremity Right Lower Extremity Strength : Strong to gravity and resistance Strong to gravity and resistance Strong to gravity and resistance Strong to gravity and resistance TERESA ALICIA [facility] - 12/27/2013 0:45 CDT TERESA ALICIA [facility] 12/27/2013 0:45 CDT RAVINTERESA [facility] 12/27/2013 0:45 CDT RAVINTERESA [facility] - 12/27/2013 0:45 CDT Peripheral IV Peripheral IV Assess/Intervention Grid Peripheral IV #1 IV Activity : Assessment IV Site : Hand Laterality : Left Catheter Size : 20 Catheter Type : Over the needle Site Condition : No complications Drainage Description : None Infiltration Score : 0 Phlebitis Score : 0 Dressing/ Activity : Dry, Intact Flow/ Patency : No complications TERESA ALICIA [facility] 12/27/2013 0:45 CDT Hendrich II Fall Risk [...] Score Hendrich II : 1 TERESA ALICIA [facility] 12/27/2013 0:45 CDT Education General Patient Education [employer] Topics : Activity limitations/expectations, Medication dosage, route, scheduling, Pain Management, Plan of care, Safety, fall Individuals Taught : Patient Barriers to Learning : None evident Teaching Method : Explanation Teaching Evaluation : Verbalizes understanding TERESA ALICIA RN - 12/27/2013 0:45 CDT Source: [facility] Document Id: [id number] CDT!136 Teresa Alicia R.N. - 12/26/2013 9:05 PM CDT md notification 2104- Md notified about pt blood pressure of 146/75. No new orders recieved., Electronically Signed By: TERESA ALICIA RN On: 12/26/2013 09:05 PM Source: [employer] Document Id: [id number] Teresa Alicia R.N. - 12/26/2013 8:04 PM CDT at bed side 1999- Dr. Madrid at bedside discussing starting pitocin with pt. Md did not want pt cervical check before initiating pitocin. orders recieved. Electronically Signed By: TERESA ALICIA RN On: 12/26/2013 08:06 PM Source: [employer] Document Id: [id number] Lulu Richardson R.N. - 12/26/2013 5:11 PM CDT [...] RICHARDSON RN - 12/26/2013 17:11 CDT Source: [employer] Document Id: [id number] CDT!6 Lulu Richardson R.N. - 12/26/2013 3:15 [...] RICHARDSON RN - 12/26/2013 15:56 CDT Source: [facility] Document Id: [id number] CDT!33 Lulu Richardson R.N. - 12/26/2013 2:45 PM CDT Antepartum [...] M RN - 12/26/2013 15:43 CDT Source: [facility] [employer] Document Id: [id number] CDT!12 documented in this encounter Miscellaneous Notes Miscellaneous - Betzaida Kahn M.D. - 07/26/2015 12:50 PM CST Refill Request Reviewed chart, just had visit with Dr. Dupont, will refill ProAir HFA as requested. Last refill 2012. Source: [facility] [employer] Document Id: [id number] ET RESEARCH EXECUTIVE Miscellaneous - Conversion, Historical Provider Ser - 06/06/2015 11:52 AM CDT Schedule Follow-Up Visit 06 June 2015 DHIRAJ JOSEPH [id number] [facility] [id number] Dear DHIRAJ JOSEPH, APPOINTMENT REMINDER: We have had two unsuccessful attempts to contact you via phone. Our records indicate that it is timefor you to be seen for Follow Up Depo with [facility]. You may call our office at [phone] to schedule an appointment with Women's [facility]. Please disregard this notice if you have already made an appointment. Sincerely, Mary Beth Beasley [facility] Sincerely, MARY BETH BRUNSON Electronic Signature Electronically Signed By: MARY BETH BRUNSON On: 06 June 2015 This document has images extracted. Source: [facility] [employer] Document Id: [id number] Miscellaneous - Conversion, Historical Provider Ser - 12/29/2013 3:00 PM CDT Coding Summary-Paper Based CODING DATE: 09/15/2015 FINAL RW [facility] STATUS: * Discharged to Home or [...] Obstetric Laceration 03.91 Injection of Anesthetic Into WHEELERRENATA NINO Ki 12/27/2013 Spinal Canal for Analgesia NOTE: The code number assigned matches the documented diagnosis and / or procedure in the patient's chart. However, the narrative phrase printed from the coding software may appear abbreviated, or result in slightly different terminology. Coded By: JC FISHER Date Saved: 09/15/2015 07:40 am Source: [facility] [employer] Document Id: [id number] Miscellaneous - Lexii Parkinson R.N. - 12/29/2013 7:51 AM CDT Adult Activities of Daily Living Adult Activities of Daily Living Entered On: 12/29/2013 7:52 CDT Performed On: 12/29/2013 7:51 CDT by LEXII REEVES RN ADLs I Patient Position : Sitting in bed Activity Status ADL : Ambulating in room LEXII REEVES RN - 12/29/2013 7:51 CDT Source: [employer] Document Id: [id number] CDT!4 Ramona - Chelsea Saucedo R.NGonzalo - 12/29/2013 5:29 AM CDT Adult Pain Assessment Adult Pain Assessment Entered On: 12/29/2013 5:29 CDT Performed On: 12/29/2013 5:29 CDT by CHELSEA SAUCEDO Pain Pain Assessment Grid Pain 1 Intensity : 0 CHELSEA SAUCEDO - 12/29/2013 5:29 CDT Source: [employer] Document Id: [id number] CDT!5 Miscellaneous - Chelsea Saucedo R.N. - 12/29/2013 2:30 [...] CHELSEA SAUCEDO - 12/29/2013 3:37 CDT Source: [employer] Document Id: [id number] CDT!8 Ramona - Chelsea Saucedo R.N. - [...] CHELSEA SAUCEDO - 12/28/2013 20:21 CDT Source: [employer] Document Id: [id number] CDT!6 Ramona - Teresa Ailcia R.N. - 12/28/2013 12:14 AM CDT Adult [...] ALICIA RN - 12/28/2013 0:14 CDT Source: [employer] Document Id: [id number] CDT!9 Miscellaneous - Laurie Ely R.N. - 12/27/2013 7:52 PM CDT Neurovascular Assessment Lower Extremity Neurovascular Assessment Lower Extremity Entered On: 12/27/2013 19:52 CDT Performed On: 12/27/2013 19:52 CDT by LAURIE ELY RN Lower Extremity Nail Bed Color Feet Grid Left Foot : Big Flat Right Foot : Big Flat LAURIE ELY RN - 12/27/2013 19:52 CDT Capillary Refill Feet Grid Left Foot : < 2 seconds Right Foot : < 2 seconds LAURIE ELY RN - 12/27/2013 19:52 CDT NV Lower Extremity Color Grid Left : Big Flat Right : Big Flat LAURIE ELY RN - 12/27/2013 19:52 CDT [...] ELY RN - 12/27/2013 19:52 CDT [facility] [employer] Document Id: [id number] CDT!18 Miscellaneous - Ankush Hinds R.N. - [...] 12/27/2013 18:15 CDT ID Band Number : [id number] Score - 1 Minute : 8 Score - 5 Minute : 9 ANKUSH HINDS RN - 12/27/2013 18:19 CDT Multiple : No Sex : Female Condition : Alive Weight, Baby A : 3.178 kg(Converted to: 7 lb 0 oz) Length, Baby A : 45.7 cm(Converted to: 1 ft 6 inch(es), 17.99 inch(es)) Cord Vessels : 3 Cord Blood Gases to Lab : Yes Infant Presentation : Vertex ANKUSH HINDS RN - 12/27/2013 18:15 CDT Source: [facility] [employer] Document Id: [id number] CDT!7 Miscellaneous - Laurie Ely RGonzaloNGnozalo - 12/27/2013 11:18 AM CDT Neurovascular Assessment Lower Extremity Neurovascular Assessment Lower Extremity Entered On: 12/27/2013 11:18 CDT Performed On: 12/27/2013 11:18 CDT by LAURIE ELY RN Lower Extremity Nail Bed Color Feet Grid Left Foot : Big [place] Right Foot : Big Flat LAURIE ELY RN - 12/27/2013 11:18 CDT Capillary Refill Feet Grid Left Foot : < 2 seconds Right Foot : < 2 seconds LAURIE ELY RN - 12/27/2013 11:18 CDT NV Lower Extremity Color Grid Left : Big [place] Right : Big Flat LAURIE ELY RN - 12/27/2013 11:18 CDT [...] ELY RN - 12/27/2013 11:18 CDT Source: [employer] Document Id: [id number] CDT!18 Miscellaneous - Laurie Ely R.N. - 12/27/2013 9:15 AM CDT Neurovascular Assessment Lower Extremity Neurovascular Assessment Lower Extremity Entered On: 12/27/2013 9:16 CDT Performed On: 12/27/2013 9:15 CDT by LAURIE ELY RN Lower Extremity Nail Bed Color Feet Grid Left Foot : Big [place] Right Foot : Big Flat LAURIE ELY RN - 12/27/2013 9:15 CDT Capillary Refill Feet Grid Left Foot : < 2 seconds Right Foot : < 2 seconds LAURIE ELY RN - 12/27/2013 9:15 CDT NV Lower Extremity Color Grid Left : Big [place] Right : Big Flat LAURIE ELY RN - 12/27/2013 9:15 CDT [...] ELY RN - 12/27/2013 9:15 CDT Source: [employer] Document Id: [id number] CDT!18 Miscellaneous - Teresa Alicia RGonzaloNGonzalo - [...] ALICIA RN - 12/27/2013 6:50 CDT Source: [employer] Document Id: [id number] CDT!15 Miscellaneous - Teresa Alicia RGonzaloNGonzalo - [...] ALICIA RN - 12/27/2013 6:34 CDT Source: [employer] Document Id: [id number] CDT!18 Miscellaneous - Teresa Alicia R.NGonzalo - 12/27/2013 6:00 AM CDT Heart Monitoring [...] ALICIA RN - 12/27/2013 6:02 CDT Source: [employer] Document Id: [id number] CDT!14 Miscellaneous - Teresa Alicia R.NGonzalo - 12/27/2013 5:28 AM CDT Heart Monitoring [...] : Absent TERESA ALICIA RN - 12/27/2013 5:28 CDT Source: [employer] Document Id: [id number] CDT!17 Ramona - Teresa Alicia R.N. - [...] ALICIA RN - 12/27/2013 5:02 CDT Source: [employer] Document Id: [id number] CDT!17 Ramona - Teresa Alicia, R.N. - [...] ALICIA RN - 12/27/2013 4:42 CDT Source: [employer] Document Id: [id number] CDT!17 Miscellaneous - Teresa Alicia, R.N. - [...] ALICIA RN - 12/27/2013 4:06 CDT Source: [employer] Document Id: [id number] CDT!17 Miscellaneous - Teresa Alicia RGonzaloNGonzalo - 12/27/2013 3:30 AM CDT Heart Monitoring [...] ALICIA RN - 12/27/2013 3:46 CDT Source: [employer] Document Id: [id number] CDT!16 Octaviacellaneous - Teresa Alicia RGonzaloN. - 12/27/2013 3:00 [...] ALICIA RN - 12/27/2013 3:34 CDT Source: [employer] Document Id: [id number] CDT!16 Miscellaneous - Teresa Alicia R.NGonzalo - 12/27/2013 2:30 AM CDT Heart Monitoring [...] ALICIA RN - 12/27/2013 3:32 CDT Source: [employer] Document Id: [id number] CDT!17 Miscellaneous - Teresa Alicia, R.N. - [...] ALICIA RN - 12/27/2013 2:21 CDT Source: [employer] Document Id: [id number] CDT!18 Miscellaneous - Teresa Alicia R.NGonzalo - [...] ALICIA RN - 12/27/2013 1:32 CDT Source: [employer] Document Id: [id number] CDT!17 Miscellaneous - Teresa Alicia, R.N. - 12/27/2013 1:00 AM CDT Heart [...] ALICIA RN - 12/27/2013 1:06 CDT Source: [employer] Document Id: [id number] CDT!15 Ramona - Teresa Alicia R.NGonzalo - 12/27/2013 12:30 AM CDT Heart Monitoring [...] ALICIA RN - 12/27/2013 0:41 CDT Source: [employer] Document Id: [id number] CDT!18 Ramona - Teresa Alicia R.NGonzalo - 12/27/2013 12:00 AM CDT Heart Monitoring [...] ALICIA RN - 12/27/2013 0:08 CDT Source: [employer] Document Id: [id number] CDT!16 Misorinaneous - Teresa Alicia R.N. - 12/26/2013 11:54 [...] ALICIA RN - 12/26/2013 23:54 CDT Source: [employer] Document Id: [id number] CDT!11 Miscellaneous - Teresa Alicia R.N. - 12/26/2013 11:30 [...] ALICIA RN - 12/26/2013 23:41 CDT Source: [employer] Document Id: [id number] CDT!3 Ramona - Teresa Alicia R.N. - [...] ALICIA RN - 12/26/2013 23:18 CDT Source: [employer] Document Id: [id number] CDT!18 Ramona - Teresa Alicia R.N. - 12/26/2013 10:30 [...] ALICIA RN - 12/26/2013 23:16 CDT Source: [employer] Document Id: [id number] CDT!16 Misorinaneous - Teresa Alicia RGonzaloNGonzalo - 12/26/2013 10:09 PM CDT Adult Activities of Daily Living Adult Activities of Daily Living Entered On: 12/26/2013 22:09 CDT Performed On: 12/26/2013 22:09 CDT by TERESA ALICIA RN ADLs I Activity Status ADL : Ambulating in morrell, Ambulating in room, Up with assistance Activity Assistance : Stand-by assistance TERESA ALICIA RN - 12/26/2013 22:09 CDT Source: [employer] Document Id: [id number] CDT!4 Octaviacellaneous - Teresa Alicia RGonzaloN. - 12/26/2013 10:00 PM CDT Heart Monitoring [...] ALICIA RN - 12/26/2013 22:07 CDT Source: [employer] Document Id: [id number] CDT!17 Miscellaneous - Teresa Alicia, R.N. - [...] ALICIA RN - 12/26/2013 21:33 CDT Source: [employer] Document Id: [id number] CDT!18 Miscellaneous - Teresa Alicia R.N. - 12/26/2013 9:00 PM CDT Heart Monitoring [...] ALICIA RN - 12/26/2013 21:06 CDT Source: [employer] Document Id: [id number] CDT!18 Miscellaneous - Teresa Alicia, R.N. - 12/26/2013 8:30 PM CDT Heart [...] ALICIA RN - 12/26/2013 20:32 CDT [facility]: [facility] Document Id: [id number] CDT!18 Octaviacellgustabo - Teresa Alicia RGonzaloNGonzalo - 12/26/2013 8:01 [...] ALICIA RN - 12/26/2013 20:01 CDT Source: [employer] Document Id: [id number] CDT!17 Octaviacellgustabo - Teresa Alicia R.NGonzalo - 12/26/2013 7:28 PM CDT Heart [...] ALICIA RN - 12/26/2013 19:28 CDT Source: [employer] Document Id: [id number] CDT!17 Miscellaneous - Lulu Richardson R.N. - 12/26/2013 7:04 PM CDT Adult Activities [...] RICHARDSON RN - 12/26/2013 19:04 CDT Source: [employer] Document Id: [id number] CDT!5 Octaviacellaneous - Lulu Richardson RGonzaloNGonzalo - [...] RICHARDSON RN - 12/26/2013 19:00 CDT Source: [employer] Document Id: [id number] CDT!17 Miscellgustabo - Lulu Richardson RGonzaloNGonzalo - 12/26/2013 6:15 [...] RICHARDSON RN - 12/26/2013 18:46 CDT Source: [employer] Document Id: [id number] CDT!17 Miscellgustabo - Lulu Richardson, R.NGonzalo - 12/26/2013 5:45 PM CDT Heart Monitoring [...] RICHARDSON RN - 12/26/2013 18:44 CDT Source: [employer] Document Id: [id number] CDT!17 Miscellaneous - Lulu Richardson R.N. - [...] RICHARDSON RN - 12/26/2013 17:43 CDT Source: [employer] Document Id: [id number] CDT!17 Octaviacellgustabo - Lulu Richardson, R.N. - 12/26/2013 4:45 [...] RICHARDSON RN - 12/26/2013 17:40 CDT Source: [facility] [employer] Document Id: [id number] CDT!17 Ramona - Lluu Richardson R.N. - 12/26/2013 4:37 PM CDT [...] ; Reviewed Date: 12/26/2013 16:35 CDT Source: [facility] [employer] Document Id: [id number] CDT!3 Miscellgustabo - Lulu Richardson R.N. - 12/26/2013 4:15 PM CDT Heart Monitoring [...] RICHARDSON RN - 12/26/2013 16:55 CDT Source: [employer] Document Id: [id number] CDT!17 Miscellaneous - Lulu Richardson, R.N. - [...] RICHARDSON RN - 12/26/2013 16:53 CDT Source: [employer] Document Id: [id number] CDT!17 documented in this encounter Plan of [...] (ABNORMAL) Automated Differential (12/28/2013 7:50 AM CDT) [facility] Method Time Signature Absolute 12.86 (H) 1.70 [...] Erythrocytes 3.78 (L) 3.90 - POWERCHART 5.03 [id number] HX RDW 12.8 11.9 - POWERCHART 15.5 [...] POWERCHART MMOLL eGFR Black/ >60 >=60 POWERCHART [place] [id number] 2 HXeGFR (MDRD) >60 >=60 POWERCHART [id number] 2 Comment: Results are in mL/min/1.73m CKD [...] (12/27/2013 7:53 PM CDT) Analysis Performed At [facility] Time Signature Hematocrit 34.4 (L) 34.9 - POWERCHART 44.5 Hemoglobin 12.0 12.0 - POWERCHART 15.5 GDL MCV 90.3 82.0 - POWERCHART 98.0 FL Platelet Count 215 150 - 450 POWERCHART X109L Erythrocytes 3.81 (L) 3.90 - POWERCHART 5.03 [id number] HX RDW 12.7 11.9 - POWERCHART 15.5 [...] POWERCHART GDL eGFR Black/ >60 >=60 POWERCHART Algerian [id number] 2 HXeGFR (MDRD) >60 >=60 POWERCHART [id number] 2 Comment: Results are in mL/min/1.73m CKD [...] Address City/State/ZIP Code Phon e Number POWERCHART Protein, Total, Random, Urine (12/26/2013 6:35 PM CDT) P athologist Signature Protein, U 12 MGDL POWERCHART Specimen (Source) Anatomical Collection Method Collection Time Re ceived Time Location / / Volume Laterality Urine 12/26/2013 6:35 PM CDT Carlee Madrid M.D. LAB URINE ORDERABLES Performing Organization Address City/State/ZIP Code Phon e Number POWERCHART ABO/RH RETYPE (12/26/2013 3:41 PM CDT) P athologist Signature HX ABO/Rh A POS POWERCHART Retype Comment: 12/27/2013 12:25 [id number] [place] draw for an ABO/Rh [...] BANK TEST ORDERABL ES Performing Organization Address City/[facility] Phon e Number POWERCHART (ABNORMAL) Automated Differential [...] M.D. LAB BLOOD ADD-ON Performing Organization Address City/[facility] Phon e Number POWERCHART (ABNORMAL) CBC with Differential (12/26/2013 3:40 PM CDT) Analysis Performed At Patho logist Time Signature Hematocrit 37.1 34.9 - POWERCHART 44.5 Hemoglobin 12.8 12.0 - POWERCHART 15.5 GDL MCV 90.7 82.0 - POWERCHART 98.0 FL Platelet Count 256 150 - 450 POWERCHART X109L Erythrocytes 4.09 3.90 - POWERCHART 5.03 [id number] HX RDW 12.8 11.9 - POWERCHART 15.5 Leukocytes 12.4 (H) 3.5 - 10.5 POWERCHART X109L Specimen (Source) Anatomical Collection Method Collection Time Re ceived Time Location / / Volume Laterality Blood 12/26/2013 3:40 PM CDT Carlee Madrid M.D. LAB BLOOD ADD-ON Performing Organization Address City/State/ZIP Code Phon e Number POWERCHART (ABNORMAL) CMP (Comprehensive Metabolic Panel) (12/26/2013 3:40 PM CDT) [facility] Method Time Signature Chloride, S 100 98 [...] POWERCHART GDL eGFR Black/ >60 >=60 POWERCHART Algerian [id number] 2 HXeGFR (MDRD) >60 >=60 POWERCHART [id number] 2 Comment: Results are in mL/min/1.73m CKD [...] POWERCHART ABSC GEL (12/26/2013 3:40 PM CDT) [facility] Method Time Signature HX ABSC Gel Negative ABSC POWERCHART Specimen (Source) Anatomical Collection Method Collection Time Re ceived Time Location / / Volume Laterality 12/26/2013 3:40 PM CDT Carlee Madrid M.D. LAB HISTORICAL ORDERS Performing Organization Address City/[facility]/ZIP Code Phon e Number POWERCHART ABO/Rh (12/26/2013 3:40 PM CDT) P athologist Signature ABORh Interp A POS POWERCHART Specimen (Source) Anatomical Collection Method Collection Time Re ceived Time Location / / Volume Laterality 12/26/2013 3:40 PM CDT Carlee Madrid M.D. LAB BLOOD BANK TEST ORDERABL ES Performing Organization Address [facility]/ZIP Code Phon e Number POWERCHART documented in this encounter Visit Diagnoses Not on filedocumented in this encounter
--- OUTSIDE RECORDS SUMMARY | 2022-06-01 09:42 | XMS_ITS | Encounter Summary ---
:1995 Author Organization [facility] Address [address] [place] [address] Care Team Providers Name Role Phone Unavailable Primary Care Provider Unavailable Encounter Details Date Type Department Care Team Description 04/29/2014 Hospital Encounter HX [facility] Stephanie Ge M.D. [...] How often do you attend jainism or spiritism Never 10/23/2020 services? 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 tablet prenat.vits,hrenandez,min-iron- Take 1 tablet by 0 /0 01/201402/19/2019 folic ( VITAMIN) mouth daily. tablet documented as of this encounter H&P Notes Stephanie Ge M.D. - 04/29/2014 10:49 AM CDT [id number] Dhiraj is here for a pre-employment physical. She is going to be working here in [employer]. The completed form will be scanned into her EMR. I see no problems with her employment here. Stephanie Ge M.D./antonia Electronically Signed By: STEPHANIE GE MD On: 04/29/2014 01:34 PM Source: [facility] MHSDOLBEYNONRADSYS Document Id: [id number] documented in this encounter Miscellaneous Notes Miscellaneous - Stephanie Ge M.D. - 04/29/2014 11:59 AM CDT Ambulatory Patient Summary [address] [place] [id number] Visit Information Name: DHIRAJ LANDA [facility] Number: [id number] Current Date: 04/29/2014 11:59:11 Physicians [...] nasal (Flonase 0.05 mg/inh nasal spray) 2 Hebron(s), Nasal, two times a day fluticasone-salmeterol (Advair [...] Appointments Date Time Location Provider 05/01/2014 13:45 [facility] TILE GRINDER [facility] TILE GRINDER Nurse Attention: Contact your local Clinic if further appointment detail needed. Your Goals/Additional instructions: Source: [facility] POWERCHART Document Id: [id number] Miscellaneous - Stephanie Ge M.D. - 04/29/2014 11:59 AM CDT Ambulatory Discharge Medication List [address] [id number] Visit Information Name: DHIRAJ LANDA [facility] Number: [id number] Visit Date: 04/29/2014 11:59:09 Attending [...] nasal (Flonase 0.05 mg/inh nasal spray) 2 Hebron(s), Nasal, two times a day fluticasone-salmeterol (Advair [...] MD Signed On:29-APR-2014 11:58:51 Additional Information: Source: [facility] POWERCHART Document Id: [id number] Miscellaneous - Consuelo Dia L.P.N. 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 Temperature Core : 36.3 DegC(Converted to: [...] Given By : Patient Languages : Kinyarwanda Is Patient Female and 13-50 no hysterectomy : Yes Status : Patient denies Are you ? : No CONSUELO DIA [place] [facility] - 04/29/2014 11:08 CDT Subjective Pain Symptoms : No LAWSONCONSUELO WILLARD Dusty [place] - 04/29/2014 11:08 CDT Dependent Habits Tobacco Use/Currently Using : No Exposure to Tobacco Smoke : Care provider denies smoking in home, Other: former smoker Smoking Status : Never smoker CONSUELO DIA Dusty [facility] - 04/29/2014 11:08 CDT Tobacco Use Grid Last Use : never LAWSONMONTSE CONSUELO Montano [facility] - 04/29/2014 11:08 CDT Caffeine Use Grid Caffeine Use : Current Type : Soft drinks Frequency : Occasionally LAWSONRADHASIN CONSUELO Dusty [facility] - 04/29/2014 11:08 CDT Recreational Drug Use Grid Drug Use : None LAWSONRADHACONSUELO VOGT [facility] - 04/29/2014 11:08 CDT [facility] Document Id: [id number]!42 documented in this encounter Plan of [...] Results Urine Microscopic (04/29/2014 11:53 AM CDT) [facility] gist Method Time Signature HXUR WBC. Occ-3 HPF POWERCHART HXUR RBC. None Seen HPF POWERCHART HXUR Bacteria, None Seen POWERCHART Squamous Occ-3 HPF POWERCHART Epithelial Specimen Anatomical Collection Method Collection Time Receive d Time (Source) Location / / Volume Laterality Urine 04/29/2014 11:53 04/29/2014 AM CDT 11:53 AM CDT Stephanie Ge M.D. LAB URINE ORDERABLES Performing Organization Address City/State/ZIP Code Phon e Number POWERCHART (ABNORMAL) Urinalysis, Routine (04/29/2014 11:53 AM CDT) [facility] gist Method Time Signature Source Clean Void POWERCHART Urine HXUr Color Yellow POWERCHART Clarity Clear POWERCHART Glucose Negative MGDL POWERCHART HXBILIRUBIN Negative POWERCHART Ketones, QL(U) Negative MGDL POWERCHART Specific 1.020 POWERCHART [place], POCT, U pH, POCT, Urine 6.5 POWERCHART [...]
--- OUTSIDE RECORDS SUMMARY | 2022-06-01 09:42 | XMS_ITS | Encounter Summary ---
:1995 Author Organization [facility] Address [address] [place] [address] Care Team Providers Name Role Phone Unavailable Primary Care Provider Unavailable Encounter Details Date Type Department Care Team Description 12/26/2013 - [facility] Carlee Alfonso 12/29/2013 ZHEN Baker M.D. [address] [place] [phone] Social History Tobacco Use Types Packs/Day [...] How often do you attend nondenominational or hinduism Never 10/23/2020 services? 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
--- OUTSIDE RECORDS SUMMARY | 2022-06-01 09:42 | XMS_ITS | Encounter Summary ---
:1995 Author Organization [facility] Address [address] [place] [address] Care Team Providers Name Role Phone Unavailable Primary Care Provider Unavailable Encounter Details Date Type Department Care Team Description 12/18/2013 Hospital Encounter [facility]X [facility] Iva Sam, SHAYE N, C.N.P. [address] [place], [place] [phone] (Wo rk) Social History [...] How often do you attend denominational or spiritism Never 10/23/2020 services? 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 - 12/18/2013 3:58 PM CDT Ambulatory Patient Education The following Patient Education Materials have been given to the patient: Patient Education Materials: Source: [facility] POWERCHART Document Id: [id number] documented in this encounter Miscellaneous Notes Miscellaneous - Iva Guerrero C.N.P., R.N. - 12/20/2013 9:22 AM CDT Results Notification Document Contains Addenda Addendum by ANA KEYES LPN on 21 Dec 2013 16:07:01 CDT seen and notified at office visit today Addendum by JOY JOHNSON LPN on 20 Dec 2013 09:27:59 CDT left generic message for pt to call back. From: IVA GUERRERO DOUGHMAKER Sent: 12/20/2013 09:22:16 CDT ! Show up: 12/20/2013 09:22:16 CDT Subject: Results Notification Actions: Notify patient of results Reminder Comments: please notify of positive results. Results: Date Result Type Ind Result Name MBO POS Strep B by PCR Source: [facility] POWERCHART Document Id: [id number] Electronically signed by Conversion, [facility] Toy Department Manager [id number] at 01/11/2017 4:24 AM CDT Miscellaneous - Ana Dhillon L.P.N. 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 Entered On: 12/18/2013 15:33 CDT Performed On: 12/18/2013 15:32 CDT by ANA KEYES LPN Intake Chief [...] Information Given By : Patient Languages : Sierra Leonean ANA KEYES LPN - 12/18/2013 15:32 CDT Subjective Pain Symptoms : No ANA KEYES LPN - 12/18/2013 15:32 CDT Dependent Habits Tobacco Use/Currently Using : No Exposure to Tobacco Smoke : Care provider denies smoking in home, Other: former smoker Smoking Status : Former smoker ANA KEYES LPN - 12/18/2013 15:32 CDT Tobacco Use Grid Last Use : never ANA KEYES OTOLARYNGOLOGY NURSE - 12/18/2013 15:32 CDT Caffeine Use Grid Caffeine Use : Current Type : Soft drinks Frequency : Occasionally ANA KEYES [facility] - 12/18/2013 15:32 CDT Recreational Drug Use Grid Drug Use : None ANA KEYES OTOLARYNGOLOGY NURSE - 12/18/2013 15:32 CDT Source: [facility] POWERCHART Document Id: [id number] CDT!29 documented in this encounter Plan of Treatment Not on filedocumented as of this encounter Procedures Procedure Name Priority Date/Time Associated Diagnosis Comme nts HXSTREP GROUP B BY Routine 12/18/2013 4:00 PM Res ults for this PCR CDT procedure are i n the results section. documented in this encounter Results (ABNORMAL) HXSTREP GROUP B BY PCR (12/18/2013 4:00 PM CDT) [facility] gist Method Time Signature HXStrep Group (POSITIVE) POWERCHART B by PCR HXFinal Positive for POWERCHART Group B Strep by PCR. Specimen (Source) Anatomical Collection Method Collection Time Re ceived Time Location / / Volume Laterality Vaginal/Rectum 12/18/2013 4:00 PM CDT Iva Guerrero APRN CGonzaloN.P. LAB HISTORICAL ORDERS Performing Organization Address City/State/ZIP Code Phon e Number POWERCHART documented in this encounter Visit Diagnoses Not on filedocumented in this encounter"
--- OUTSIDE RECORDS SUMMARY | 2022-06-01 09:43 | XMS_ITS | Encounter Summary ---
:1995 Author Organization [facility] Address [address] [place] [address] Care Team Providers Name Role Phone Unavailable Primary Care Provider Unavailable Encounter Details Date Type Department Care Team Description 05/10/2012 Hospital Encounter HX [facility] Pako Felix III, M.D. [address] [place] [phone] (Wo rk) Social History Tobacco Use Types [...] How often do you attend buddhism or uatsdin Never 10/23/2020 services? 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 - 05/10/2012 3:38 PM CDT [id number] CHIEF COMPLAINT/REASON FOR VISIT Repacking of abscess [...] woundshows a significant pocket that undermines approximately bzc-ls-vlsmg centimeters in all directions.The area was explored [...] III, MD On: 05/23/2012 04:05 PM Source: [facility] MHSDOLBEYNONRADSYS Document Id: [id number] documented in this encounter Miscellaneous Notes Miscellaneous - Robe Rosario M.D. - 05/10/2012 4:46 PM CDT Ambulatory Patient Summary [address] [place] [address] Visit Information Name: DHIRAJ LANDA Current Date: [...] Date Time Location Reason Provider 05/12/2012 09:45 [facility] Family Med f/u leg re-packing - per Dr. Rosario - may be seen without Mother Your Goals/Additional instructions: Source: [facility] POWERCHART Document Id: [id number] Miscellaneous - Robe Rosario M.D. - 05/10/2012 4:46 PM CDT Ambulatory Depart Summary [address] [phone] Visit Information Name: DHIRAJ LANDA Visit Date: [...] your provider for clarification. Additional Information: Source: [facility] POWERCHART Document Id: [id number] Miscellaneous - Chrissy Dia, L.P.N. - 05/10/2012 3:50 PM CDT Pediatric Slurry Blender Intake/History Pediatric Slurry Blender Intake/History Entered On: 05/10/2012 15:56 CDT Performed [...] 1 Location : Throat Intensity : 8 LAWSONRADHACHRISSY VOGT LPN - 05/10/2012 15:50 CDT Dependent Habits [...] LPN; Reviewed Date: 05/10/2012 15:46 CDT Source: [facility] ViewRepleCHART Document Id: [id number] documented in this encounter Plan of Treatment Not on filedocumented as of this encounter Visit Diagnoses Not on filedocumented in this encounter
--- OUTSIDE RECORDS SUMMARY | 2022-06-01 09:43 | XMS_ITS | Encounter Summary ---
:1995 Author Organization [facility] Address [address] [place] [address] Care Team Providers Name Role Phone Unavailable Primary Care Provider Unavailable Encounter Details Date Type Department Care Team Description 04/26/2012 Hospital Encounter [facility] ED Juana Zabala , P.A.-C. [address] [place] [phone] (Wo rk) Social History Tobacco [...] How often do you attend confucianist or samaritan Never 10/23/2020 services? 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 The following includes patient education materials and informationregarding your injury/illness. Chief Complaint: Eruption of skin; rash on left thigh Follow-Up Instructions: With: Address: When: Follow up with primary care provider Within 2 - 4 days Comments: For recheck Patient Education Materials: [id number] CELLULITIS You have an infection of the [...] rectal, after two days on antibiotics ?? [id number] [employer], [address] [place] [address], [place] [address]. All rights reserved. This information is not [...] arrange a ride home with a responsible constitution party. I, DHIRAJ LANDA , or responsible constitution party have received this information and my questions have been answered. I have discussed any challenges I see with this plan with the nurse or physician. Patient Signature or Responsible Alliance Party/Relationship Date/Time Provider Signature Date/Time Medication Reconciliation: Reconciliation [...] arrange a ride home with a responsible constitution party. I, DHIRAJ LANDA , or responsible constitution party have received this information and my questions have been answered. I have discussed any challenges I see with this plan with the nurse or physician. Patient Signature or Responsible Alliance Party/Relationship Date/Time Provider Signature Date/Time Source: Boardvote Document Id: [id number] Vandana Marsh, RGonzaloN. - 04/29/2012 11:36 AM CDT ED Depart Summary [facility] Emergency Department Clinical Discharge Summary PERSON INFORMATION Name DHIRAJ LANDA Age 17 Years 1995 12:00 AM Sex Female Language Lebanese PCP JAMARI MCHUGH MD Marital Status Single Visit Id Visit Reason Eruption of skin; rash on left thigh Specialty Enc Type Emergency Med Service Emergency Medicine Referred by Track Group [facility] ED Discharge 04/26/2012 11:00 PM Tracking Id [id number] Checkout 04/27/2012 11:01 AM Checkin 04/26/2012 9:32 PM Acuity Dispo Type * Discharged to Home or Self Care Arrival 04/26/2012 9:32 PM Reg Status LOS 000 13:29 Address: [address] [place], [place] [address]on [facility] [phone] Comment: PROVIDER INFORMATION Provider Role Provider Contact Time JUANA ZABALA ED Provider 04/26/12 22:01 JAMARI MCHUGH MD ED Provider 04/27/12 08:28 DIAGNOSIS Cellulitis of the leg 682.6 Comment: PATIENT EDUCATION INFORMATION Instructions: CELLULITIS Follow up: With: Address: When: Follow up with primary care provider Within 2 - 4 days Comments: For recheck Source: [facility] FACILITYValetAnywhereCHART Document Id: [id number] documented in this encounter Medications at Time of Discharge Medication Sig Dispensed Refills Start Date End Date albuterol (for_ACCUNEB) one unit dose qid 0 12/0409/25/2018 2.5 mg /3 mL nebulizer and q2hr prn solution fluticasone-salmeterol Inhale 1 puff. 0 2 11/04/2017 (for_ADVAIR DISKUS) 250-50 mcg/dose diskus inhaler documented as of this encounter Nursing Notes Chandni Higgins, R.N. - 04/26/2012 9:38 PM CDT ED Primary Assessment ED Primary Assessment Entered On: 04/26/2012 21:43 CDT Performed On: 04/26/2012 21:38 CDT by CHANDNI HIGGINS RN Reason For Visit Problems(Active) Allergic asthma NOS with status asthmaticus Name of Problem: Allergic asthma NOS with status asthmaticus ; Recorder: JENNIFER ARCHIBALD LPN; Confirmation: Confirmed ; Classification: Nursing ; Code: 1231 ; Contributor System: Chinacars ; Last Updated: 09/29/2010 17:17 FACETOR ; Life Cycle Date: 09/29/2010 ;Life Cycle Status: Active ; Responsible Provider: JENNIFER ARCHIBALD LPN; Vocabulary: ICD-9-CM ; Comments: 06/02/2011 17:13 - CONSUELO DIA LPN date of onset unknown Asthma NOS [...] Nursing ; Code: 1231 ; Contributor System: Chinacars ; Last Updated: 09/29/2010 14:18 FACETOR ; Life Cycle Date: 09/15 ; Life Cycle Status: Active ; Responsible Provider: JENNIFER ARCHIBALD LPN; Vocabulary: ICD-9-CM Diagnoses(Active) Eruption of skin Date: 04/26/2012 ; Diagnosis Type: Reason For Visit ; Confirmation: Complaint of ; Clinical Dx: Eruption of skin ; Classification: Medical ; Clinical Service: Emergency medicine ; Code: PNED ; Probability: 0 ; Diagnosis Code: [id number] Triage Chief Complaint Description : 17 year old female admits with eruption on inner thigh of left leg. Ptdenies having a bug bite or pimple there. Pt states she noticed it this am but redeness worse tonight Information Given By : Patient, Mother Accompanied By : Grandparent, Mother Mode of Arrival ED : Private vehicle Track : Medical Languages : Lebanese CHANDNI HIGGINS RN - 04/26/2012 21:38 CDT [...] Description : Dry Skin Temperature : Warm GISELACHANDNI RN - 04/26/2012 21:38 CDT Neurological Last [...] HIGGINS RN - 04/26/2012 21:38 CDT Source: [facility] FACILITYUXCam Document Id: [id number] documented in this encounter ED Notes Juana Zabala P.A.-C. - 04/26/2012 10:02 PM CDT Skin Problem [...] primary or secondary; younger than age 12 ([address]) in 2000 at 5 Years. Family history: . No [...] Stable. Disposition: Discharged: to home. Prescriptions: Prescription Professional Bass Fisher. Pharmacy: amoxicillin-clavulanate 875 mg-125 mg oral tablet [...] JUANA ZABALA On: 04/26/2012 11:39 PM Source: [facility] POWERCHART Document Id: [id number] documented in this encounter Miscellaneous Notes Miscellaneous - Kristin Woods R.N. - 04/26/2012 9:32 PM CDT Facility Charge [...] Control : 4 Lynx Visit Level : 96371 Level 2 KRISTIN WOODS RN - 04/27/2012 8:52 CDT Source: [facility] FACILITYUXCam Document Id: [id number] documented in this encounter Plan of Treatment Not on filedocumented as of this encounter Visit Diagnoses Not on filedocumented in this encounter
--- OUTSIDE RECORDS SUMMARY | 2022-06-01 09:43 | XMS_ITS | Encounter Summary ---
:1995 Author Organization [facility] Address [address] [place] [address] Care Team Providers Name Role Phone Unavailable Primary Care Provider Unavailable Encounter Details Date Type Department Care Team Description 05/08/2012 Hospital Encounter HX [facility] Aleida Mejia M.D. Social History [...] How often do you attend zoroastrianism or adventist Never 10/23/2020 services? 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 Document Id: [id number] documented in this encounter Plan of Treatment Not on filedocumented as of this encounter Visit Diagnoses Not on filedocumented in this encounter
--- OUTSIDE RECORDS SUMMARY | 2022-06-01 09:43 | XMS_ITS | Encounter Summary ---
:1995 Author Organization [facility] Address [address] [place] [address] Care Team Providers Name Role Phone Unavailable Primary Care Provider Unavailable Encounter Details Date Type Department Care Team Description 05/31/2013 Hospital Encounter HX NO MAPPING Ancelmo Benítez M.D. [address] [place] [phone] (Wo rk) Social History Tobacco [...] How often do you attend advent or roman catholic Never 10/23/2020 services? 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
--- OUTSIDE RECORDS SUMMARY | 2022-06-01 09:43 | XMS_ITS | Encounter Summary ---
:1995 Author Organization [facility] Address [address] [place] [address] Care Team Providers Name Role Phone Unavailable Primary Care Provider Unavailable Encounter Details Date Type Department Care Team Description 02/15/2012 Hospital Encounter HX [facility] [place] Manny Diaz, N.P[address] [place] [phone] (Wo rk) Social History Tobacco Use [...] How often do you attend yarsani or alevism Never 10/23/2020 services? 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 - 02/15/2012 12:00 AM CDT [id number] CHIEF COMPLAINT/REASON FOR VISIT Painful bump on [...] N.P. /anthony Electronically Signed By: SASKIA DIAZ LAW OFFICE ASSISTANT On: 02/22/2012 05:39 PM Source: [facility] MHSDOLBEYNONRADSYS Document Id: [id number] documented in this encounter Miscellaneous Notes Miscellaneous - Saskia Diaz NGonzaloP. - 02/15/2012 10:32 AM CDT Ambulatory Patient Summary [address] [address] Visit Information Name: DHIRAJ LANDA Current Date: [...] No Appointments found Your Goals/Additional instructions: Source: [facility] POWERCHART Document Id: [id number] Miscellaneous - Saskia Diaz, N.P. - 02/15/2012 10:32 AM CDT Ambulatory Depart Summary [place] [id number] [place] [address] Visit Information Name: DHIRAJ LANDA Visit Date: 02/15/2012 10:32:02 Attending Provider: SASKIA DIAZ LAW OFFICE ASSISTANT Primary Care Provider: JAMARI MCHUGH MD DHIRAJ [...] your provider for clarification. Additional Information: Source: [facility] POWERCHART Document Id: [id number] Miscellaneous - Bisi Bethea L.P.N. - 02/15/2012 9:37 AM CDT Pediatric Wire Wheeler Intake/History Pediatric Wire Wheeler Intake/History Entered On: 02/15/2012 9:41 CDT Performed On: 02/15/2012 9:37 CDT by BISI BETHEA RESPIRATORY MANAGER Intake Chief Complaint : Right ankle had [...] LPN; Reviewed Date: 02/15/2012 7:14 CDT Source: [facility] [employer] Document Id: [id number] documented in this encounter Plan of Treatment Not on filedocumented as of this encounter Visit Diagnoses Not on filedocumented in this encounter
--- OUTSIDE RECORDS SUMMARY | 2022-06-01 09:43 | XMS_ITS | Encounter Summary ---
:1995 Author Organization [facility] Address [address] [place] [address] Care Team Providers Name Role Phone Unavailable Primary Care Provider Unavailable Encounter Details Date Type Department Care Team Description 06/04/2013 Hospital Encounter HX NO MAPPING Iva Guerrero APRN, C.N.P. [address] [place], [place] [phone] (Wo rk) Social History [...] How often do you attend nondenominational or synagogue Never 10/23/2020 services? 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
--- OUTSIDE RECORDS SUMMARY | 2022-06-01 09:43 | XMS_ITS | Encounter Summary ---
:1995 Author Organization [facility] Address [address] [place] [address] Care Team Providers Name Role Phone Unavailable Primary Care Provider Unavailable Encounter Details Date Type Department Care Team Description 05/03/2012 Hospital Encounter HX [facility] [place] Johnnie Walls M.D. [address] [place] [phone] (Wo rk) Social History Tobacco Use Types [...] How often do you attend jewish or anglican Never 10/23/2020 services? 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 encounter Medications [...] approximated, Edges , Tunneling, Undermining Color : [place] Drainage : Bloody, Serosanguineous Drainage Amount : [...] JOHNSON RN - 05/03/2012 16:52 CDT [facility] Document Id: [id number] documented in this encounter Nursing Notes Cornelio [...] JOHNSON RN On: 05/03/2012 05:01 PM Source: [facility] POWERCHART Document Id: [id number] documented in this encounter Plan of Treatment Not on filedocumented as of this encounter Visit Diagnoses Not on filedocumented in this encounter
--- OUTSIDE RECORDS SUMMARY | 2022-06-01 09:43 | XMS_ITS | Encounter Summary ---
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 Pager: Birthdate: 1995 Sex: F Address: City: [place], [place] Service: [facility] CHIEF COMPLAINT / PURPOSE OF VISIT Triage nurse call: Carly Joseph is a 18 year old woman with possible symptoms of labor or miscarriage Abdominal pain today, 9 weeks . Calling from: [phone] HISTORY OF PRESENT ILLNESS: 1. Possible symptoms [...] information and instructions given Caller's primary language: Indonesian PERTINENT NEGATIVES No: charts accessed (none selected from list) Source: [facility] RWHXTRANSXRTFSYS Document Id: [id number] documented in this encounter Plan of Treatment Not on filedocumented as of this encounter Visit Diagnoses Not on filedocumented in this encounter
--- OUTSIDE RECORDS SUMMARY | 2022-06-01 09:43 | XMS_ITS | Encounter Summary ---
:1995 Author Organization [facility] Address [address] [place] [address] Care Team Providers Name Role Phone Unavailable Primary Care Provider Unavailable Encounter Details Date Type Department Care Team Description 06/04/2013 Hospital Encounter HX [facility] XRAY Provider, Histori hernandez Social [...] How often do you attend amish or sabianism Never 10/23/2020 services? 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
--- OUTSIDE RECORDS SUMMARY | 2022-06-01 09:43 | XMS_ITS | Encounter Summary ---
:1995 Author Organization [facility] Address [address] [place] [address] Care Team Providers Name Role Phone Unavailable Primary Care Provider Unavailable Encounter Details Date Type Department Care Team Description 05/05/2012 Hospital Encounter HX [facility] Stephanie Ge M.D. Social [...] How often do you attend yazdanism or christian Never 10/23/2020 services? 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 - 05/05/2012 3:58 PM CDT [id number] CHIEF COMPLAINT/REASON FOR VISIT Repacking of abscess. [...] GE MD On: 05/09/2012 01:35 PM Source: [facility] MHSDOLBEYNONRADSYS Document Id: [id number] documented in this encounter Miscellaneous Notes Miscellaneous - Stephanie Ge M.D. - 05/05/2012 5:10 PM CDT Ambulatory Depart Summary [facility] [address] [place] [address] Visit Information Name: CARLY LANDA Visit Date: [...] your provider for clarification. Additional Information: Source: [facility] POWERCHART Document Id: [id number] Miscellaneous - Stephanie Ge M.D. - 05/05/2012 5:10 PM CDT Ambulatory Patient Summary [place] [phone] [place] [address] Visit Information Name: CARLY LANDA Current Date: [...] Date Time Location Reason Provider 05/08/2012 15:45 [facility] Family Med REPACK WOUND Your Goals/Additional instructions: Source: [facility] [employer]Way Document Id: [id number] Miscellaneous - Jeanette Dennison L.PGonzaloNGonzalo - 05/05/2012 4:03 PM CDT Pediatric Soil Scientist Intake/History Pediatric Soil Scientist Intake/History Entered On: 05/05/2012 16:06 CDT Performed [...] Grid Last Use : never JEANETTE DENNISON 05/05/2012 16:03 CDT Caffeine Use Grid Caffeine [...] LPN; Reviewed Date: 05/01/2012 16:08 CDT Source: [facility] POWERCHART Document Id: [id number] documented in this encounter Plan of Treatment Not on filedocumented as of this encounter Visit Diagnoses Not on filedocumented in this encounter
--- OUTSIDE RECORDS SUMMARY | 2022-06-01 09:43 | XMS_ITS | Encounter Summary ---
:1995 Author Organization [facility] Address [address] [place] [address] Care Team Providers Name Role Phone Unavailable Primary Care Provider Unavailable Encounter Details Date Type Department Care Team Description 08/02/2013 Hospital Encounter HX [facility] Bridget Saldaña M.D. Social History [...] How often do you attend pentecostal or tenriism Never 10/23/2020 services? 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 - 08/02/2013 3:30 PM CST [id number] C/o low backache. Has resolved now. No vaginal bleeding or leaking of fluid. TLM Source[facility] Document Id: [id number] Electronically signed by Conversion, [facility] Tailor Fitter [id number] at 01/10/2017 3:03 PM CDT Bridget Harrington M.D. - 08/02/2013 3:30 PM CST [id number] Declines genetic testing. C/o back pain though entirely resolved. Will check ucx. Source: [facility] Document Id: [id number] Electronically signed by Conversion, [facility] Tailor Fitter [id number] at 01/10/2017 3:03 PM CDT documented in this encounter Miscellaneous Notes Miscellaneous - Bridget Harrington M.D. - 08/02/2013 3:30 PM CST [id number] Carly Joseph [id number] [address] [facility] [address] August 09, 2013 Dear Ms. Joseph: I am writing to inform you the results of the laboratory tests you had done during your recent visitto the clinic. Your results included : urine culture was NORMAL. It was a pleasure to see you in the clinic. If you have any further questions or problems, please contact our office at [phone]. Sincerely, Dr. Bridget Harrington MS Dept. SAMPLE GRADER [facility] [place] Source: [facility] RWMCHXTRANSXRTFSYS Document Id: [id number] Electronically signed by Conversion, [facility] Tailor Fitter [id number] at 01/10/2017 3:03 PM CDT documented in this encounter Plan of Treatment Not on filedocumented as of this encounter Procedures Procedure Name Priority Date/Time Associated Comments Diagnosis HX CULTURE REPORT Routine 08/04/2013 9:05 AM Resu lts for this STATUS KEY ACCOUNT EXECUTIVE procedure are i n the results section. HX SN - SPEC - Routine 08/04/2013 9:05 AM Results for this DESCRIPTION KEY ACCOUNT EXECUTIVE procedure are i n the results section. HX CULTURE Routine 08/04/2013 9:05 AM Results f or this KEY ACCOUNT EXECUTIVE procedure are i n the results section. documented in this encounter Results HX CULTURE REPORT STATUS (08/04/2013 9:05 AM KEY ACCOUNT EXECUTIVE) Analysis Performed At Patho logist Time Signature CULTURE REPORT FINAL [facility] STATUS 08/04/2013 [facility] Specimen (Source) Anatomical Collection Method Collection Time Re ceived Time Location / / Volume Laterality 08/04/2013 9:05 AM KEY ACCOUNT EXECUTIVE Historical Provider LAB HISTORICAL ORDERS Performing Organization Address City/State/ZIP Code Phon e Number [facility] HX CULTURE (08/04/2013 9:05 AM KEY ACCOUNT EXECUTIVE) Analysis Performed At Patho logist Time Signature Bacterial No growth [facility] Culture, HEALTH SYSTEM Aerobic LAB Specimen (Source) Anatomical Collection Method Collection Time Re ceived Time Location / / Volume Laterality 08/04/2013 9:05 AM KEY ACCOUNT EXECUTIVE Historical Provider LAB HISTORICAL ORDERS Performing Organization Address City/State/ZIP Code Phon e Number [facility] HX SN - SPEC - DESCRIPTION (08/04/2013 9:05 AM KEY ACCOUNT EXECUTIVE) Patholo gist Method Time Signature HXSPECIMAN Midstream [facility] DESCRIPTION Urine [facility] LAB Specimen (Source) Anatomical Collection Method Collection Time Re ceived Time Location / / Volume Laterality 08/04/2013 9:05 AM KEY ACCOUNT EXECUTIVE Historical Provider LAB HISTORICAL ORDERS Performing Organization Address City/State/ZIP Code Phon e Number [facility] documented in this encounter Visit Diagnoses Not on filedocumented in this encounter
--- OUTSIDE RECORDS SUMMARY | 2022-06-01 09:43 | XMS_ITS | Encounter Summary ---
:1995 Author Organization [facility] Address [address] [place] [address] Care Team Providers Name Role Phone Unavailable Primary Care Provider Unavailable Encounter Details Date Type Department Care Team Description 12/12/2011 Hospital Encounter HX [facility] ED Ramsey Kahn M.D. [address] [place], [place] [address] (Wo rk) Social History [...] often do you attend oriental orthodox or caodaism Never 10/23/2020 services? 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 The following includes patient education materials and informationregarding your injury/illness. Chief Complaint: mono /sore throat Follow-Up Instructions: With: Address: When: DALJIT ARREOLA [address] [place] [address] Business (1) Within AsNeeded Comments: Patient Education Materials: [id number] MONONUCLEOSIS Mononucleosis (Fleming) is a contagious viral infection. Most infants and children exposed to the virus get only mild flu-like symptoms or no symptoms at all. However, when infection occurs in teens andyoung adults, it causes Mononucleosis. Once infected, you are immune and cannot catch Fleming again; h owever, the virus stays in [...] week or more than three weeks, the Fleming-Spot test used to diagnose this disease may [...] but a drug reaction with the virus. Fleming can cause your spleen to swell. The [...] It may cause severe liver damage.) 4) Wswl-sep-jvylrqe lozenges or spray may be used for [...] itchy rash, you may take Benadryl (an tkxg-zzw-qoawqxm antihistamine). Use lower doses during the daytime [...] stiff neck, headache or facial weakness ?? 0350-8365 [employer], [address] [place] [address]. All rights reserved. This information is not intended as a substitute for professional medical care. Always follow your healthcare professional's instructions. [id number] MEDICATION: TYLENOL & CODEINE You have been [...] any questions that you may have.] ?? 6664-2308 [employer], [address] [place] [address]. All rights reserved. This information is not [...] arrange a ride home with a responsible alliance party. I, DHIRAJ LANDA , or responsible alliance party have received this information and my questions have been answered. I have discussed any challenges I see with this plan with the nurse or physician. Patient Signature or Responsible Libertarian/Relationship Date/Time Provider Signature Date/Time Medication Reconciliation: Reconciliation [...] arrange a ride home with a responsible alliance party. SYEDA [place] JACALYN MARIE , or responsible alliance party have received this information and my questions have been answered. I have discussed any challenges I see with this plan with the nurse or physician. Patient Signature or Responsible Libertarian/Relationship Date/Time Provider Signature Date/Time [facility] Document Id: [id number] Kristin Woods R.N. - 12/12/2011 8:13 AM CDT ED Depart Summary [facility] Emergency Department Clinical Discharge Summary PERSON INFORMATION Name DHIRAJ LANDA Age 16 Years 1995 12:00 PM Sex Female Language Nigerian PCP JAMARI MCHUGH MD Marital Status Single Visit Id Visit Reason mono /sore throat Specialty Enc Type Emergency Med Service Emergency Medicine Referred by Track Group [facility] ED Discharge 12/12/2011 8:13 AM Tracking Id [id number] Checkout 12/12/2011 8:13 AM Checkin 12/12/2011 6:57 AM Acuity Dispo Type * Discharged to Home or Self Care Arrival 12/12/2011 6:57 AM Reg Status Complete LOS 000 01:16 Address: [address] [place] [phone] Comment: PROVIDER INFORMATION Provider Role Provider Contact Time KRISTIN WOODS DIRECTOR OF CONTENT MARKETING Nurse 12/12/11 07:12 BETZAIDA KAHN MD ED Provider 12/12/11 07:25 DIAGNOSIS mononucleosis Comment: PATIENT EDUCATION INFORMATION Instructions: MONONUCLEOSIS; TYLENOL AND CODEINE Follow up: With: Address: When: DALJIT ARREOLA [address] [place] [id number] [facility] () Within AsNeeded Comments: Source: [facility] POWERCHART Document Id: [id number] documented in this encounter Medications at Time [...] WOODS RN - 12/12/2011 8:12 CDT Source: [facility] [employer] Document Id: [id number] CDT!3 Kristin Woods R.N. - 12/12/2011 7:15 [...] Nursing ; Code: 1231 ; Contributor System: G[employer] ; Last Updated: 09/29/2010 17:17 PRODUCTION HONING MACHINE OPERATOR ; Life Cycle Date: 09/29/2010 ;Life Cycle [...] Nursing ; Code: 1231 ; Contributor System: [employer] ; Last Updated: 09/29/2010 14:18 PRODUCTION HONING MACHINE OPERATOR ; Life Cycle Date: 09/15 ; Life Cycle Status: Active ; Responsible Provider: JENNIFER ARCHIBALD LPN; Vocabulary: ICD-9-CM Diagnoses(Active) Throat pain - Pediatric Date: 12/12/2011 ; Diagnosis Type: Reason For Visit ; Confirmation: Complaint of ; Clinical Dx: Throat pain - Pediatric ; Classification: Medical ; Clinical Service: Emergency medicine ; Code: PNED ; Probability: 0 ; Diagnosis Code: [id number] Triage Chief Complaint Description : sore throat pain . HX of mono diagnosis last tuesday Mode of Arrival ED : Private vehicle Track : Medical Languages : Nigerian KRISTIN WOODS RN - 12/12/2011 7:15 CDT [...] Steady Swallowing Difficulty/Aspiration Risk : Liquids, thin KRISTIN WOODS RN - 12/12/2011 7:15 CDT ED [...] WOODS RN - 12/12/2011 7:15 CDT [facility] Document Id: [id number] CDT!44 documented in this encounter ED Notes Kristin Woods R.N. - 12/12/2011 8:12 AM CDT ED Disposition Summary ED Disposition Summary Entered On: 12/12/2011 8:12 CDT Performed On: 12/12/2011 8:12 CDT by KRISTIN WOODS DIRECTOR OF CONTENT MARKETING Disposition Summary Accompanied By : Mother Mode of Discharge : Ambulatory Transportation : Private vehicle Printed Discharge Instructions Given to Patient : Yes Patient Status at Discharge from ED : Unchanged KRISTIN WOODS RN - 12/12/2011 8:12 CDT Source: [employer] Document Id: [id number] CDT!7 Betzaida Kahn M.D. - 12/12/2011 7:31 [...] Ibuprofen or tylenol. Patient was diagnosed with Fleming last Tuesday. History of Present Illness The [...] primary or secondary; younger than age 12 ([address]) in 1999 at 5 Years. Social history: [...] KAHN MD On: 12/12/2011 08:17 AM Source: [facility] [employer] Document Id: [id number]} Kristin Woods, R.N. - 12/12/2011 7:12 AM CDT ED Triage Assessment ED Triage Assessment Entered On: 12/12/2011 7:15 CDT Performed On: 12/12/2011 7:12 CDT by KRISTIN WOODS RN Reason For Visit Problems(Active) Allergic asthma NOS with status asthmaticus Name of Problem: Allergic asthma NOS with status asthmaticus ; Recorder: JENNIFER ARCHIBALD LPN; Confirmation: Confirmed ; Classification: Nursing ; Code: 1231 ; Contributor System: [employer] ; Last Updated: 09/29/2010 17:17 PRODUCTION HONING MACHINE OPERATOR ; Life Cycle Date: 09/29/2010 ;Life Cycle Status: Active ; Responsible Provider: JENNIFER ARCHIBADL LPN; Vocabulary: ICD-9-CM ; Comments: 06/02/2011 17:13 - CONSUELO DIA LPN date of onset unknown Closed fracture of tibia and fibula Name of Problem: Closed fracture of tibia and fibula ; Onset Date: 03/02/2007 ; Recorder: JENNIFER ARCHIBALD LPN; Confirmation: Confirmed ; Classification: Nursing ; Code: 1231 ; Contributor System: [employer] ; Last Updated: 09/29/2010 14:18 PRODUCTION HONING MACHINE OPERATOR ; Life Cycle Date: 09/15 ; Life Cycle Status: Active ; Responsible Provider: JENNIFER ARCHIBALD LPN; Vocabulary: ICD-9-CM Diagnoses(Active) Throat pain - Pediatric Date: 12/12/2011 ; Diagnosis Type: Reason For Visit ; Confirmation: Complaint of ; Clinical Dx: Throat pain - Pediatric ; Classification: Medical ; Clinical Service: Emergency medicine ; Code: PNED ; Probability: 0 ; Diagnosis Code: [id number] Triage Chief Complaint Description : 16 year old female admitted to ER with complaints of sore throat not relieved with Ibuprofen or tylenol. Patient was diagnosed with Fleming last Tuesday. Information Given By : Mother Accompanied By : Mother Mode of Arrival ED : Private vehicle Track : Medical Languages : Nigerian Vital Signs Assessed : Yes Treatments Prior [...] 1 Location : Throat Intensity : 9 RKISTIN WOODS RN - 12/12/2011 7:12 CDT ED Physician Notification Time ED Physician Notification Time : 12/12/2011 7:15 CDT KRISTIN WOODS RN - 12/12/2011 7:12 CDT Allergy Allergies (Active) Suprax Estimated Onset Date: Unspecified ; Created By: JENNIFER ARCHIBALD LPN; Reaction Status: Active ; Category: Drug ; Substance: Suprax ; Type: Allergy ; Updated By: JENNIFER ARCHIBALD LPN; Reviewed Date: 12/07/2011 9:04 CDT Source: [facility] [employer] Document Id: [id number] CDT!33 documented in this encounter Miscellaneous Notes Miscellaneous - Kristin Woods R.N. - 12/12/2011 8:12 AM CDT Valuables/Belongings Valuables/Belongings Entered On: 12/12/2011 8:12 CDT Performed On: 12/12/2011 8:12 CDT by KRISTIN WOODS RN Valuables/Belongings Belongings Sent Home With : sent home with patient Home Medication Disposition : None brought in with patient KRISTIN WOODS RN - 12/12/2011 8:12 CDT Source: [facility] [employer] Document Id: [id number] CDT!4 Miscellaneous - Kristin Woods R.N. - [...] Control : 5 Lynx Visit Level : 22585 Level 3 Treatments Prior to Arrival : Other: Tylenol at 0330. KRISTIN WOODS RN - 12/12/2011 8:12 CDT Chief Complaint 8.50.02 Reason For Visit Category : EENT and dental ED Chief Complaint EENT and Dental 8.5 : Throat pain TVL Calc : 8 TVL for Facility Charge Ticket Dx : Level 3 KRISTIN WOODS RN - 12/12/2011 8:12 CDT Source: [employer] Document Id: [id number] CDT!18 documented in this encounter Plan of Treatment Not on filedocumented as of this encounter Visit Diagnoses Not on filedocumented in this encounter
--- OUTSIDE RECORDS SUMMARY | 2022-06-01 09:43 | XMS_ITS | Encounter Summary ---
:1995 Author Organization [facility] Address [address] [place] [address] Care Team Providers Name Role Phone Unavailable Primary Care Provider Unavailable Encounter Details Date Type Department Care Team Description 06/01/2013 Hospital Encounter HX [facility] OBGYN Provider, Histor ical Social History [...] How often do you attend yazidi or christian Never 10/23/2020 services? 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 Vianey Ceja MD Source: [facility] Document Id: [id number] documented in this encounter Plan of Treatment Not on filedocumented as of this encounter Procedures Procedure Name Priority Date/Time Associated Comments Diagnosis HUMAN CHORIONIC Routine 06/01/2013 12:26 Results for this GONADOTROPIN (HCG), PM CDT procedur e are in [facility], the results section. documented in this encounter Results hCG (Human Chorionic Gonadotropin), Quantitative, (06/01/2013 12:26 PM CDT) P athologist Signature Beta-HCG, [id number] [facility] [employer] [facility] Specimen (Source) Anatomical Collection Method Collection Time Re ceived Time Location / / Volume Laterality 06/01/2013 12:[address] [facility] - 10/12/19 14 11:11 PM LASER PRINTING OPERATOR Non- ?0 - 5 , weeks from LMP: 1 - 10 weeks ? 64 - 151,000 IU/L 11 - 15 weeks 11,800 - 152,000 IU/L 16 - 22 weeks ??9,380 - 61,400 IU/L 23 - 40 weeks ??1,740 - 98,600 IU/L Specimen run with a dilution Historical Provider LAB BLOOD ADD-ON Performing Organization Address City/State/ZIP Code Phon e Number [facility] documented in this encounter Visit Diagnoses Not on filedocumented in this encounter
--- OUTSIDE RECORDS SUMMARY | 2022-06-01 09:43 | XMS_ITS | Encounter Summary ---
:1995 Author Organization [facility] Address [address] [place] [address] Care Team Providers Name Role Phone Unavailable Primary Care Provider Unavailable Encounter Details Date Type Department Care Team Description 07/02/2013 Hospital Encounter HX [facility] Bridget Saldaña M.D. Social History [...] How often do you attend hindu or adventist Never 10/23/2020 services? 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 BR [facility] Document Id: [id number] Bridget Harrington M.D. - 07/02/2013 2:30 PM CST [id number] Discussed quad/CF, SMA and fragile X testing. Pt undecided will discuss with insurance. Source: [facility] Document Id: [id number] Electronically signed by Conversion, [facility] Windows Server Support Technician [id number] at 01/10/2017 9:11 PM CDT documented in this encounter Plan of Treatment Not on filedocumented as of this encounter Visit Diagnoses Not on filedocumented in this encounter
--- OUTSIDE RECORDS SUMMARY | 2022-06-01 09:43 | XMS_ITS | Encounter Summary ---
:1995 Author Organization [facility] Address [address] [place] [address] Care Team Providers Name Role Phone Unavailable Primary Care Provider Unavailable Encounter Details Date Type Department Care Team Description 06/04/2013 Hospital Encounter HX NO MAPPING Iva Guerrero APRN, C.N.P. [address] [place], [place] [phone] (Wo rk) Social History [...] How often do you attend methodist or islam Never 10/23/2020 services? 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
--- OUTSIDE RECORDS SUMMARY | 2022-06-01 09:43 | XMS_ITS | Encounter Summary ---
:1995 Author Organization [facility] Address [address] [place] [address] Care Team Providers Name Role Phone Unavailable Primary Care Provider Unavailable Encounter Details Date Type Department Care Team Description 06/06/2013 Hospital Encounter HX [facility] Iva Sam, SHAYE N, C.N.P. [address] [place], [place] [phone] (Wo rk) Social History [...] How often do you attend zoroastrian or adventism Never 10/23/2020 services? 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 - 06/06/2013 3:50 PM CDT [id number] Body mass index is 26.61 kg/(me, dates based on early sono. Flu shot today. Nausea but no vomiting. Has parents insurance so she will also apply for MS. TANISHA Sexual History not in a relationship with Jason RITCHIE S: Carly is a 18 year old y/o, G 1, P 0. She is 8w4d weeks today. She lives in [place] with parents. Carly has been feeling nauseated. 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. Family is close by and supportive. [facility]. Assessment: vitamins: Is taking them. Diet: Regular diet, no history of an eating disorder. Adequate calcium intake discussed. She has notbeen referred to meet with the buffing wheel raker. Transportation issues: nnoe Safe relationship: She has no history of abusive relationhips. Financial Concerns: money is tight Insurance: [facility], will apply for MS Social Service/Public Health: WIC/GCPH She is not [...] COUNSELING REGARDING THESE ISSUES. Electronically signed by [facility], [facility] College Recruiter [id number] at 01/10/2017 8:48 PM CDT Conversion, Historical Provider Ser - 06/06/2013 3:50 PM CDT [id number] Carly Joseph is a 18 year old female. Patient received: FLUZONE INJECTION Patient Questionaire: Did you receive a flu vaccine last year?0 I have a fever or feel ill today? No I have an allergy to eggs, gelatin or thimerosal? No I have had a reaction to the flu vaccine the past? No I have had Guillain-Holland syndrome? No I have a Latex Allergy? No VIS information given Source: [facility] RWHXTRANSXRTFSYS Document Id: [id number] documented in this encounter Miscellaneous Notes Miscellaneous - Iva Guerrero C.N.P., R.N. - 06/06/2013 3:50 PM CDT [id number] Carly Joseph [address] [address] [facility] [address] June 11, 2013 MR#: [id number] Dear Carly, I am happy to inform [...] free to give me a call at [phone]. Sincerely, Iva Guerrero RN, CREDIT SUPPORT SPECIALIST criminal intelligence specialist [facility] [place] Source: [facility] Document Id: [id number] Electronically signed by Conversion, [facility] College Recruiter [id number] at 01/10/2017 8:48 PM CDT documented in [...] P athologist Signature HBs Antigen, S Negative [facility] Specimen (Source) Anatomical Collection Method Collection Time Re ceived Time Location / / Volume Laterality 06/08/2013 11:46 AM CDT Historical Provider LAB MICROBIOLOGY - BLOOD ORD ERABLES Performing Organization Address City/State/ZIP Code Phon e Number [facility] HIV-1/-2 Ag and Ab Screen (06/08/2013 11:46 AM CDT) P athologist Signature HX Hiv-1/-2 Ab Negative [facility] Screen, [facility] Specimen (Source) Anatomical Collection Method Collection Time Re ceived Time Location / / Volume Laterality 06/08/2013 11:46 AM CDT Historical Provider LAB MICROBIOLOGY - BLOOD ORD ERABLES Performing Organization Address City/State/ZIP Code Phon e Number [facility] HCV Ab w/Reflex to HCV PCR, S (06/08/2013 11:46 AM CDT) P athologist Signature HXHep C Ab Negative [facility] Specimen (Source) Anatomical Collection Method Collection Time Re ceived Time Location / / Volume Laterality 06/08/2013 11:46 AM CDT Historical Provider LAB MICROBIOLOGY - BLOOD ORD ERABLES Performing Organization Address City/State/ZIP Code Phon e Number [facility] Rubella Antibodies, IgG (06/08/2013 10:05 AM CDT) P athologist Signature HX Rubella 92 IUML [facility] IgG-[facility] LAB Specimen (Source) Anatomical Collection Method Collection Time Re ceived Time Location / / Volume Laterality 06/08/2013 10:05 AM CDT Narrative [facility] - 10/12/19 14 11:11 PM 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 Interpretation: ??Positive, Immune Historical Provider LAB MICROBIOLOGY - BLOOD ORD ERABLES Performing Organization Address City/State/ZIP Code Phon e Number [facility] Syphilis IgG Antibody with Reflex (06/08/2013 10:04 AM CDT) P athologist Signature Treponema Negative [facility] pallidum Ab by [facility] LAB Specimen (Source) Anatomical Collection Method Collection Time Re ceived Time Location / / Volume Laterality 06/08/2013 10:04 AM CDT Historical Provider LAB BLOOD ADD-ON Performing Organization Address City/State/ZIP Code Phon e Number [facility] HX CULTURE REPORT STATUS (06/08/2013 8:04 AM CDT) Analysis Performed At Patho logist Time Signature CULTURE REPORT FINAL [facility] STATUS 06/08/2013 [facility] LAB Specimen (Source) Anatomical Collection Method Collection Time Re ceived Time Location / / Volume Laterality 06/08/2013 8:04 AM CDT Historical Provider LAB HISTORICAL ORDERS Performing Organization Address City/State/ZIP Code Phon e Number [facility] HX CULTURE (06/08/2013 8:04 AM CDT) Analysis Performed At Patho logist Time Signature Bacterial No growth [facility] Culture, [facility] Aerobic LAB Specimen (Source) Anatomical Collection Method Collection Time Re ceived Time Location / / Volume Laterality 06/08/2013 8:04 AM CDT Historical Provider LAB HISTORICAL ORDERS Performing Organization Address City/State/ZIP Code Phon e Number [facility] HX SN - SPEC - DESCRIPTION (06/08/2013 8:04 AM CDT) Patholo gist Method Time Signature HXSPECIMAN Midstream [facility] DESCRIPTION Urine [facility] LAB Specimen (Source) Anatomical Collection Method Collection Time Re ceived Time Location / / Volume Laterality 06/08/2013 8:04 AM CDT Historical Provider LAB HISTORICAL ORDERS Performing Organization Address City/State/ZIP Code Phon e Number [facility] Platelet Count (06/06/2013 5:16 PM CDT) P athologist Signature Platelet Count 214 109L [facility] Specimen (Source) Anatomical Collection Method Collection Time Re ceived Time Location / / Volume Laterality 06/06/2013 5:16 PM CDT Historical Provider LAB BLOOD ADD-ON Performing Organization Address City/State/ZIP Code Phon e Number [facility] RBC SYSMEX (06/06/2013 5:16 PM CDT) P athologist Signature HX RDW 12.8 [facility] Specimen (Source) Anatomical Collection Method Collection Time Re ceived Time Location / / Volume Laterality 06/06/2013 5:16 PM CDT Historical Provider LAB URINE ORDERABLES Performing Organization Address City/State/ZIP Code Phon e Number [facility] RBC SYSMEX (06/06/2013 5:16 PM CDT) P athologist Signature MCHC 35.0 GMDL [facility] Specimen (Source) Anatomical Collection Method Collection Time Re ceived Time Location / / Volume Laterality 06/06/2013 5:16 PM CDT Historical Provider LAB URINE ORDERABLES Performing Organization Address City/State/ZIP Code Phon e Number [facility] RBC SYSMEX (06/06/2013 5:16 PM CDT) P athologist Signature MCH 30.6 PG [facility] Specimen (Source) Anatomical Collection Method Collection Time Re ceived Time Location / / Volume Laterality 06/06/2013 5:16 PM CDT Historical Provider LAB URINE ORDERABLES Performing Organization Address City/State/ZIP Code Phon e Number [facility] Automated Differential (06/06/2013 5:16 PM CDT) P athologist Signature MCV 88 FL [facility] Specimen (Source) Anatomical Collection Method Collection Time Re ceived Time Location / / Volume Laterality 06/06/2013 5:16 PM CDT Historical Provider LAB BLOOD ADD-ON Performing Organization Address City/State/ZIP Code Phon e Number [facility] Hematocrit (06/06/2013 5:16 PM CDT) P athologist Signature Hematocrit 36.6 [facility] Specimen (Source) Anatomical Collection Method Collection Time Re ceived Time Location / / Volume Laterality 06/06/2013 5:16 PM CDT Historical Provider LAB BLOOD ADD-ON Performing Organization Address City/State/ZIP Code Phon e Number [facility] Hemoglobin (06/06/2013 5:16 PM CDT) P athologist Signature Hemoglobin 12.8 GMDL [facility] Specimen (Source) Anatomical Collection Method Collection Time Re ceived Time Location / / Volume Laterality 06/06/2013 5:16 PM CDT Historical Provider LAB BLOOD ADD-ON Performing Organization Address City/State/ZIP Code Phon e Number [facility] RBC SYSMEX (06/06/2013 5:16 PM CDT) P athologist Signature Erythrocytes 4.18 X10 [facility] Specimen (Source) Anatomical Collection Method Collection Time Re ceived Time Location / / Volume Laterality 06/06/2013 5:16 PM CDT Historical Provider LAB URINE ORDERABLES Performing Organization Address City/State/ZIP Code Phon e Number [facility] CBC with Differential (06/06/2013 5:16 PM CDT) P athologist Signature Leukocytes 8.2 109L [facility] Specimen (Source) Anatomical Collection Method Collection Time Re ceived Time Location / / Volume Laterality 06/06/2013 5:16 PM CDT Historical Provider LAB BLOOD ADD-ON Performing Organization Address City/State/ZIP Code Phon e Number [facility] HX AMORPHOUS CRYSTAL (06/06/2013 5:13 PM CDT) P athologist Signature HXAmorphous Many HPF [facility] Crystal [facility] Specimen (Source) Anatomical Collection Method Collection Time Re ceived Time Location / / Volume Laterality 06/06/2013 5:13 PM CDT Historical Provider LAB HISTORICAL ORDERS Performing Organization Address City/State/ZIP Code Phon e Number [facility] HX MUCOUS THREADS (06/06/2013 5:13 PM CDT) P athologist Signature HX MUCOUS Present LPF [facility] THREADS [facility] Specimen (Source) Anatomical Collection Method Collection Time Re ceived Time Location / / Volume Laterality 06/06/2013 5:13 PM CDT Historical Provider LAB HISTORICAL ORDERS Performing Organization Address City/State/ZIP Code Phon e Number [facility] Urine Microscopic (06/06/2013 5:13 PM CDT) P athologist Signature HXUr WBC 0 HPF [facility] Specimen (Source) Anatomical Collection Method Collection Time Re ceived Time Location / / Volume Laterality 06/06/2013 5:13 PM CDT Historical Provider LAB URINE ORDERABLES Performing Organization Address City/State/ZIP Code Phon e Number [facility] Urine Microscopic (06/06/2013 5:13 PM CDT) P athologist Signature Red Blood Cell 0 HPF [facility] Clump, Urine [facility] LAB Specimen (Source) Anatomical Collection Method Collection Time Re ceived Time Location / / Volume Laterality 06/06/2013 5:13 PM CDT Historical Provider LAB URINE ORDERABLES Performing Organization Address City/State/ZIP Code Phon e Number [facility] HX SP SOURCE (06/06/2013 5:13 PM CDT) Patholo gist Method Time Signature HXSP Source Midstream [facility] Urine [facility] Specimen (Source) Anatomical Collection Method Collection Time Re ceived Time Location / / Volume Laterality 06/06/2013 5:13 PM CDT Historical Provider LAB HISTORICAL ORDERS Performing Organization Address City/State/ZIP Code Phon e Number [facility] Urinalysis, Routine (06/06/2013 5:13 PM CDT) P athologist Signature Leukocyte Negative [facility] Esterase [facility] Specimen (Source) Anatomical Collection Method Collection Time Re ceived Time Location / / Volume Laterality 06/06/2013 5:13 PM CDT Historical Provider LAB URINE ORDERABLES Performing Organization Address City/State/ZIP Code Phon e Number [facility] Urinalysis no Reflex (06/06/2013 5:13 PM CDT) P athologist Signature HXNITRITE Negative [facility] Specimen (Source) Anatomical Collection Method Collection Time Re ceived Time Location / / Volume Laterality 06/06/2013 5:13 PM CDT Historical Provider LAB URINE ORDERABLES Performing Organization Address City/State/ZIP Code Phon e Number [facility] Urobilinogen, QL, Urine (06/06/2013 5:13 PM CDT) P athologist Signature Urobilinogen Normal MGDL [facility] Specimen (Source) Anatomical Collection Method Collection Time Re ceived Time Location / / Volume Laterality 06/06/2013 5:13 PM CDT Historical Provider LAB URINE ORDERABLES Performing Organization Address City/State/ZIP Code Phon e Number [facility] HX UR PROTEIN ALBUMIN (06/06/2013 5:13 PM CDT) P athologist Signature Hx Ur Protein Negative MGDL [facility] LAB Specimen (Source) Anatomical Collection Method Collection Time Re ceived Time Location / / Volume Laterality 06/06/2013 5:13 PM CDT Historical Provider LAB HISTORICAL ORDERS Performing Organization Address City/State/ZIP Code Phon e Number [facility] pH, Urine (06/06/2013 5:13 PM CDT) P athologist Signature pH, POCT, Urine 6.5 PHUNITS [facility] Specimen (Source) Anatomical Collection Method Collection Time Re ceived Time Location / / Volume Laterality 06/06/2013 5:13 PM CDT Historical Provider LAB URINE ORDERABLES Performing Organization Address City/State/ZIP Code Phon e Number [facility] Urinalysis, Routine (06/06/2013 5:13 PM CDT) P athologist Signature HXBLOOD Negative [facility] Specimen (Source) Anatomical Collection Method Collection Time Re ceived Time Location / / Volume Laterality 06/06/2013 5:13 PM CDT Historical Provider LAB URINE ORDERABLES Performing Organization Address City/State/ZIP Code Phon e Number [facility] Urinalysis, Routine (06/06/2013 5:13 PM CDT) P athologist Signature Specific 1.012 [facility] [place], [place], [facility] LAB Specimen (Source) Anatomical Collection Method Collection Time Re ceived Time Location / / Volume Laterality 06/06/2013 5:13 PM CDT Historical Provider LAB URINE ORDERABLES Performing Organization Address City/State/ZIP Code Phon e Number [facility] Ketones, Qual, Urine (06/06/2013 5:13 PM CDT) P athologist Signature Ketones, QL(U) Negative MGDL [facility] Specimen (Source) Anatomical Collection Method Collection Time Re ceived Time Location / / Volume Laterality 06/06/2013 5:13 PM CDT Historical Provider LAB URINE ORDERABLES Performing Organization Address City/State/ZIP Code Phon e Number [facility] Bilirubin, Urine (06/06/2013 5:13 PM CDT) P athologist Signature HXBILIRUBIN Negative [facility] Specimen (Source) Anatomical Collection Method Collection Time Re ceived Time Location / / Volume Laterality 06/06/2013 5:13 PM CDT Historical Provider LAB URINE ORDERABLES Performing Organization Address City/State/ZIP Code Phon e Number [facility] Urinalysis, Routine (06/06/2013 5:13 PM CDT) P athologist Signature Glucose Negative MGDL [facility] Specimen (Source) Anatomical Collection Method Collection Time Re ceived Time Location / / Volume Laterality 06/06/2013 5:13 PM CDT Historical Provider LAB URINE ORDERABLES Performing Organization Address City/State/ZIP Code Phon e Number [facility] Urinalysis, Routine (06/06/2013 5:13 PM CDT) P athologist Signature Appearance Cloudy [facility] Specimen (Source) Anatomical Collection Method Collection Time Re ceived Time Location / / Volume Laterality 06/06/2013 5:13 PM CDT Historical Provider LAB URINE ORDERABLES Performing Organization Address City/State/ZIP Code Phon e Number [facility] Urine Microscopic (06/06/2013 5:13 PM CDT) P athologist Signature HXUr Color Yellow [facility] Specimen (Source) Anatomical Collection Method Collection Time Re ceived Time Location / / Volume Laterality 06/06/2013 5:13 PM CDT Historical Provider LAB URINE ORDERABLES Performing Organization Address City/[facility]/ZIP Code Phon e Number [facility] documented in this encounter Visit Diagnoses Not on filedocumented in this encounter
--- OUTSIDE RECORDS SUMMARY | 2022-06-01 09:43 | XMS_ITS | Encounter Summary ---
:1995 Author Organization [facility] Address [address] [place] [address] Care Team Providers Name Role Phone Unavailable Primary Care Provider Unavailable Encounter Details Date Type Department Care Team Description 05/30/2013 Hospital Encounter HX [facility] Iva Sam, SHAYE N, C.N.P. [address] [place], [place] [phone] (Wo rk) Social History [...] How often do you attend yazidism or mormon Never 10/23/2020 services? 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 Source: [facility] RWHXTRANSXRTFSYS Document Id: [id number] Telephone Encounter - Hailey Jang R.N. - 05/30/2013 12:00 AM CDT [id number] Triage/Phone Nurse: 'How many periods have you [...] happy to assist you with this. Source: [facility] Document Id: [id number] Electronically signed by Stuart, [facility] Portal Architect [id number] at 01/10/2017 8:48 PM CDT documented in this encounter Plan of Treatment Not on filedocumented as of this encounter Visit Diagnoses Not on filedocumented in this encounter
--- OUTSIDE RECORDS SUMMARY | 2022-06-01 09:43 | XMS_ITS | Encounter Summary ---
:1995 Author Organization [facility] Address [address] [place] [address] Care Team Providers Name Role Phone Unavailable Primary Care Provider Unavailable Encounter Details Date Type Department Care Team Description 05/12/2012 Hospital Encounter [facility]X [facility] Pako Felix III, M.D. 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
--- OUTSIDE RECORDS SUMMARY | 2022-06-01 09:43 | XMS_ITS | Encounter Summary ---
:1995 Author Organization [facility] Address [address] [place] [address] Care Team Providers Name Role Phone Unavailable Primary Care Provider Unavailable Encounter Details Date Type Department Care Team Description 03/19/[address] [facility] Stephanie Ge M.D. Social [...] How often do you attend scientologist or tenriism Never 10/23/2020 services? 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 (Girls, 2-20 Years) documented in this encounter [...] Ge M.D. - 03/19/2013 12:46 PM CDT [id number] CHIEF COMPLAINT/REASON FOR VISIT Dhiraj is here [...] process she will letus know. Stephanie Ge M.D./[facility] Electronically Signed By: STEPHANIE GE MD On: 03/19/2013 04:18 PM Source: [facility] MHSDOLBEYNONRADSYS Document Id: [id number] documented in this encounter Procedure Notes Jennifer Medellin L.PChristy - 03/19/2013 11:35 AM CDT Asthma Control [...] MEDELLIN LPN - 03/20/2013 11:35 CDT Source: [facility] POWERCHART Document Id: [id number] CDT!8 documented in this encounter Miscellaneous Notes [...] MEDELLIN LPN - 03/20/2013 11:38 CDT Source: [facility] AGNITiOCHART Document Id: [id number] CDT!7 Miscellaneous - Stephanie Ge M.D. - 03/19/2013 1:34 PM CDT Ambulatory Patient Summary [address] [id number] Visit Information Name: DHIRAJ LANDA [facility] Number: [id number] Current Date: 03/19/2013 13:34:20 [...] No Appointments found Your Goals/Additional instructions: Source: [facility] POWERCHART Document Id: [id number] Miscellaneous - Stephanie Ge M.D. - 03/19/2013 1:34 PM CDT Ambulatory Depart Summary [address] [address] Visit Information Name: DHIRAJ LANDA [facility] Number: [id number] Visit Date: 03/19/2013 13:34:20 [...] your provider for clarification. Additional Information: Source: [facility] POWERCHART Document Id: [id number] Miscellaneous - Dorian Davenport, L.P.N. - 03/19/2013 1:00 PM CDT Adult Tassel Snipper Intake/History Adult Tassel Snipper Intake/History Entered On: 03/19/2013 13:03 CDT Performed [...] Preferred Communication Mode : Verbal Languages : Slovak DORIAN DAVENPORT LPN - 03/19/2013 13:00 CDT [...] DAVENPORT LPN - 03/19/2013 13:00 CDT Source: [facility] Document Id: [id number] CDT!41 Miscellaneous - Dorian Davenport, L.P.N. - 03/19/2013 1:00 PM CDT Health [...] Use Grid Drug Use : None DORIAN DAVNEPORT LPN - 03/19/2013 13:00 CDT Psychosocial Domestic Abuse Concerns : None DORIAN DAVENPORT LPN - 03/19/2013 13:00 CDT Advance Directive Advanced Directives : No DORIAN DAVENPORT LPN - 03/19/2013 13:00 CDT Educ Needs Learning Style Preference Adult Grid Patient : None Family : None DORIAN DAVENPORT LPN - 03/19/2013 13:00 CDT Source: [facility] Document Id: [id number] CDT!32 documented in this encounter Plan of Treatment Not on filedocumented as of this encounter Visit Diagnoses Not on filedocumented in this encounter
--- OUTSIDE RECORDS SUMMARY | 2022-06-01 09:43 | XMS_ITS | Encounter Summary ---
:1995 Author Organization [facility] Address [address] [place] [address] Care Team Providers Name Role Phone Unavailable Primary Care Provider Unavailable Encounter Details Date Type Department Care Team Description 06/01/2013 Hospital En[facility] Shivam Keith A, R.N. 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 - 06/01/2013 12:00 AM CDT [id number] Situation/What is the patients concern/need: Patient update/inquiry [...] Ceja. Best number(s) to reach patient: Source: [facility] RWHXTRANSXRTFSYS Document Id: [id number] Electronically signed by Conversion, [facility] Javascript Developer [id number] at 01/10/2017 8:48 PM CDT documented in this encounter Plan of Treatment Not on filedocumented as of this encounter Visit Diagnoses Not on filedocumented in this encounter
--- OUTSIDE RECORDS SUMMARY | 2022-06-01 09:43 | XMS_ITS | Encounter Summary ---
:1995 Author Organization [facility] Address [address] [place] [address] Care Team Providers Name Role Phone Unavailable Primary Care Provider Unavailable Encounter Details Date Type Department Care Team Description 05/31/2013 Hospital Encounter HX NO MAPPING Ancelmo Benítez M.D. [address] [place] [address] [phone] (Wo rk) Social History Tobacco [...] How often do you attend restorationism or religion Never 10/23/2020 services? 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
--- OUTSIDE RECORDS SUMMARY | 2022-06-01 09:43 | XMS_ITS ---
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 [address] [place] [address] [phone] (Wo rk) Social History Tobacco Use Types [...] How often do you attend protestant or mormon Never 10/23/2020 services? 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 - 04/14/2013 8:42 AM CDT [id number] CHIEF COMPLAINT/REASON FOR VISIT Sore throat in [...] GREER MD On: 04/15/2013 08:35 AM Source: [facility] MHSDOLBEYNONRADSYS Document Id: [id number] documented in this encounter Miscellaneous Notes Miscellaneous [...] you ordered q48h . Please advise [facility] Document Id: [id number] Miscellaneous - Betzaida Kahn M.D. - 04/21/2013 [...] well with this option. Nadeem PEREZ Source: [facility] Document Id: [id number] Miscellaneous - Daniela Tan RChristy - 04/18/2013 1:58 PM CDT Med request [...] would like prescription for Diflucan sent to [facility]. Please consider and send rx if you agree. Pt phone [phone] Source: [facility] POWERCHART Document Id: [id number] Electronically signed by Conversion, [facility] Silver Solution Mixer [id number] at 01/12/2017 2:38 AM CDT Miscellaneous - Sebastian Greer M.D. - 04/14/2013 9:28 AM CDT Ambulatory Depart Summary [address] [address] Visit Information Name: GORDOSTEPHDHIRAJ WRIGHT PAWEL [facility] Number: [id number] Visit Date: 04/14/2013 [...] clarification. Additional Information: Yes - . Source: [facility] POWERCHART Document Id: [id number] Miscellaneous - Sebastian Greer M.D. - 04/14/2013 9:28 AM CDT Ambulatory Patient Summary [phone] [place] [address] Visit Information Name: DHIRAJ JOSEPH [facility] Number: [id number] Current Date: 04/14/2013 [...] No Appointments found Your Goals/Additional instructions: Source: [facility] POWERCHART Document Id: [id number] Miscellaneous - Juana Dennison LGonzaloPGonzaloNGonzalo - 04/14/2013 8:58 AM CDT Adult Financial Institution Branch Manager Intake/History Adult Financial Institution Branch Manager Intake/History Entered On: 04/14/2013 9:00 CDT Performed [...] Information Given By : Patient Languages : Czech JUANA DENNISON - 04/14/2013 8:58 CDT Subjective Pain Symptoms : Yes JUANA DENNISON 04/14/2013 8:58 CDT Pain Pain Assessment Grid Pain 1 Location : Throat Intensity : 10 JAUNA DENNISON 04/14/2013 8:58 CDT Dependent Habits Tobacco Use/Currently Using : No Exposure to Tobacco Smoke : Care provider denies smoking in home Smoking Status : Never smoker JUANA DENNISON - 04/14/2013 8:58 CDT Tobacco Use Grid Last Use : never JUANA DENNISON 04/14/2013 8:58 CDT Caffeine Use Grid Caffeine Use : Current Type : Soft drinks Frequency : Occasionally JUMA JUANA - 04/14/2013 8:58 CDT Recreational Drug Use Grid Drug Use : None JUMA JUANA - 04/14/2013 8:58 CDT Source: [facility] POWERCHART Document Id: [id number] CDT!39 documented in this encounter Plan of [...] Strep A Screen (04/14/2013 9:05 AM CDT) [facility] Method Time Signature HXRapid Strep POWERCHART Confirmation HXPre Negative for POWERCHART Group A Strep by culture. HXFinal Negative for POWERCHART Group A Strep by culture. Specimen Anatomical Collection Method Collection Time Receive d Time (Source) Location / / Volume Laterality Throat 04/14/2013 9:05 AM 3 9:05 CDT AM CDT Sebastian Greer M.D. LAB MICROBIOLOGY - GENERAL O GILBERTO Performing Organization Address City/[facility] Code Phon e Number POWERCHART Rapid Strep A Screen (04/14/2013 9:05 AM CDT) [facility] Method Time Signature HXStrep A POWERCHART Screen Rapid HXFinal Negative for POWERCHART Strep Group A by rapid screen. HXFinal Culture POWERCHART confirmation to follow. Specimen (Source) Anatomical Collection Method Collection Time Re ceived Time Location / / Volume Laterality Throat 04/14/2013 9:05 AM CDT Sebastian Greer M.D. LAB MICROBIOLOGY - GENERAL O GILBERTO Performing Organization Address City/[facility]/ZIP Code Phon e Number POWERCHART documented in this encounter Visit Diagnoses Not on filedocumented in this encounter
--- OUTSIDE RECORDS SUMMARY | 2022-06-01 09:43 | XMS_ITS | Encounter Summary ---
:1995 Author Organization [facility] Address [address] [place] [address] Care Team Providers Name Role Phone Unavailable Primary Care Provider Unavailable Encounter Details Date Type Department Care Team Description 04/28/2012 Hospital Encounter HX [facility] [place] Stephanie Ge M.D. Social [...] How often do you attend taoism or oriental orthodox Never 10/23/2020 services? 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 - 04/28/2012 3:34 PM CDT [id number] REVISION HISTORY Dictated on 05/01/2012 at 6:37 [...] did talk about possible risks and benefits. Mcgregor precautions were observed. The area on her [...] GE MD On: 05/05/2012 07:48 AM Source: [facility] MHSDOLBEYNONRADSYS Document Id: [id number] documented in this encounter Miscellaneous Notes Miscellaneous - Stephanie Ge M.D. - 04/28/2012 5:21 PM CDT Ambulatory Patient Summary [phone] [place] [address] Visit Information Name: DHIRAJ LANDA Current Date: [...] Date Time Location Reason Provider 05/01/2012 17:30 [facility] Family Med follow up Stephanie Ge MD Your Goals/Additional instructions: Source: [facility] POWERCHART Document Id: [id number] Miscellaneous - Stephanie Ge M.D. - 04/28/2012 5:21 PM CDT Ambulatory Depart Summary [address] [address] Visit Information Name: GORDOSTEPHDHIRAJ WRIGHT PAWEL Visit Date: 04/28/2012 17:21:07 Attending Provider: STEPHANIE [...] your provider for clarification. Additional Information: Source: [facility] POWERCHART Document Id: [id number] Miscellaneous - Juana Dennison L.PGonzaloNGonzalo - 04/28/2012 3:40 PM CDT Pediatric Flatbed Truck Driver Intake/History Pediatric Flatbed Truck Driver Intake/History Entered On: 04/28/2012 15:42 CDT Performed On: 04/28/2012 15:40 CDT by JUANA DENNISON Intake Chief Complaint : cellulitis left [...] Standing scale Dosing Weight Clinic : 71.50kg JUANA DENNISON - 04/28/2012 15:40 CDT Subjective Pain Symptoms : Yes JUANA DENNISON 04/28/2012 15:40 CDT Pain Pain Assessment Grid Pain 1 Location : Upper leg Intensity : 5 JUANA DENNISON 04/28/2012 15:40 CDT Dependent Habits Tobacco Use/Currently Using : No Exposure to Tobacco Smoke : Care provider denies smoking in home Smoking Status : Never smoker JUANA DENNISON 04/28/2012 15:40 CDT Tobacco Use Grid Last Use : never JUANA DENNISON 04/28/2012 15:40 CDT Caffeine Use Grid Caffeine Use : Current Type : Soft drinks Frequency : Occasionally JUANA DENNISON 04/28/2012 15:40 CDT Recreational Drug Use Grid Drug Use : None JUANA DENNISON 04/28/2012 15:40 CDT Allergy Allergies (Active) Suprax Estimated Onset Date: Unspecified ; Created By: JENNIFER ARCHIBALD LPN; Reaction Status: Active ; Category: Drug ; Substance: Suprax ; Type: Allergy ; Updated By: JENNIFER ARCHIBALD LPN; Reviewed Date: 04/26/2012 22:24 CDT Source: [facility] POWERCHART Document Id: [id number] documented in this encounter Plan of Treatment Not on filedocumented as of this encounter Procedures Procedure Name Priority Date/Time Associated Diagnosis Comme nts BACTERIAL CULTURE, Routine 04/28/2012 4:30 PM Res ults for this AEROBIC CDT procedure are i n the results section. documented in this encounter Results (ABNORMAL) Bacterial Culture, Aerobic (04/28/2012 4:30 PM CDT) Component Value Ref Test Analysis Performed At [facility] gist Range Method Time Signature Organism (POSITIVE) <=1 [...]
--- OUTSIDE RECORDS SUMMARY | 2022-06-01 09:43 | XMS_ITS | Encounter Summary ---
:1995 Author Organization [facility] Address [address] [place] [address] Care Team Providers Name Role Phone Unavailable Primary Care Provider Unavailable Encounter Details Date Type Department Care Team Description 12/07/2011 Hospital Encounter HX [facility] [place] Lewis, Awa gr, P.A.-[address]ill[address] [place] [address] (Wo rk) Social History Tobacco [...] How often do you attend judaism or confucianist Never 10/23/2020 services? 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 Her mom is waiting in the [place]. She is complaining of a sore throat [...] LABORATORY DATA: Rapid strep test was negative. Nobles was positive. IMPRESSION/REPORT/PLAN 1. Mononucleosis. PLAN: Information was given both to Carly and her mom about this being a [...] of the room. I did highly recommend Carly to get started on some sort of [...] parents about this. I also talked with Carly about the necessity for chlamydia and gonorrhea [...] with me privately over the phone about Carly's depression and suicidal ideation three days prior. [...] confidential to her parents without consent from Carly. I did advise her that urine drug [...] JULIA ARREOLA On: 12/14/2011 02:09 PM Source: [facility] MHSDOLBEYNONRADSYS Document Id: [id number] documented in this encounter Miscellaneous Notes Miscellaneous - Julia Arreola - 12/07/2011 5:23 PM CDT Ambulatory Depart Summary [address] [place] [address] Visit Information Name: CARLY LANDA Visit Date: 12/07/2011 17:23:17 Attending Provider: JULIA ARREOLA Primary Care Provider: JAMARI MCHUGH MD CARLY [...] your provider for clarification. Additional Information: Source: [facility] POWERCHART Document Id: [id number] Miscellaneous - Julia Arreola - 12/07/2011 5:23 PM CDT Ambulatory Patient Summary [address] [address] Visit Information Name: CARLY LANDA Current Date: 12/07/2011 17:23:18 Physicians Attending [...] No Appointments found Your Goals/Additional instructions: Source: [facility] POWERCHART Document Id: [id number] Miscellaneous - Conversion, Historical Provider Ser - 12/07/2011 9:02 AM CDT Pediatric Aquatics Group Fitness Instructor Intake/History Pediatric Aquatics Group Fitness Instructor Intake/History Entered On: 12/07/2011 9:04 CDT Performed On: 12/07/2011 9:02 CDT by ERWIN COLON LPN Intake Chief Complaint : sinus pressure, sore throat , ears hurt, not feeling good for about a week, sinus drainage, fever last Fri Temperature Core : 37C(Converted to: 98.6DegF) Peripheral Pulse Rate : 84/min Respiratory Rate : 16/min Systolic Blood Pressure : 80mmHg (<LLOW) Diastolic Blood Pressure : 54mmHg NIBP Mean : 63mmHg Actual Weight : 72.6kg(Converted to: 160lb 1oz) Dosing Weight Clinic : 72.60kg ERWIN COLON LPN - 12/07/2011 9:02 CDT Subjective Pain Symptoms : Yes ERWIN COLON [facility] - 12/07/2011 9:02 CDT Pain Pain Assessment Grid Pain 1 Location : Throat Intensity : 3 ERWIN COLON [facility] - 12/07/2011 9:02 CDT Dependent Habits Tobacco Use/Currently Using : No Smoking Status : Never smoker ERWIN COLON [facility] - 12/07/2011 9:02 CDT Caffeine Use Grid Caffeine Use : Current Type : Soft drinks Frequency : Daily ERWIN COLON [facility] - 12/07/2011 9:02 CDT Recreational Drug Use Grid Drug Use : None ERWIN COLON [facility] - 12/07/2011 9:02 CDT Allergy Allergies (Active) Suprax Estimated Onset Date: Unspecified ; Created By: JENNIFER ARCHIBALD LPN; Reaction Status: Active ; Category: Drug ; Substance: Suprax ; Type: Allergy ; Updated By: JENNIFER ARCHIBALD LPN; Reviewed Date: 07/29/2011 16:53 SKIAGRAPHER Source: [facility] CognovantCHART Document Id: [id number] CDT!29 documented in this encounter Plan of [...] Mononucleosis Screen, POCT (12/07/2011 9:35 AM CDT) [facility] Method Time Signature Infectious (POSITIVE) POWERCHART Nobles Test, S HXFinal Positive POWERCHART HXFinal Reference: POWERCHART Negative Specimen (Source) Anatomical Collection Method Collection Time Re ceived Time Location / / Volume Laterality Blood 12/07/2011 9:35 AM CDT Julia Arreola P.A.-C. LAB POCT ORDERABLES-MANUAL Performing Organization Address City/State/[facility] Phon e Number POWERCHART Rapid Strep A Screen (12/07/2011 9:33 AM CDT) [facility] ONE Change Method Time Signature HXRapid Strep POWERCHART Confirmation HXPre Negative for POWERCHART Group A Strep by culture. HXFinal Negative for POWERCHART Group A Strep by culture. Specimen Anatomical Collection Method Collection Time Receive d Time (Source) Location / / Volume Laterality Throat 12/07/2011 9:33 AM 2 9:33 CDT AM CDT Julia Arreola P.A.-C. LAB MICROBIOLOGY - GENERAL O RDERABLES Performing Organization Address [facility] Phon e Number POWERCHART Rapid Strep A Screen (12/07/2011 9:33 AM CDT) [facility] ONE Change Method Time Signature HXStrep A POWERCHART Screen Rapid HXFinal Negative for POWERCHART Strep Group A by rapid screen. HXFinal Culture POWERCHART confirmation to follow. Specimen (Source) Anatomical Collection Method Collection Time Re ceived Time Location / / Volume Laterality Throat 12/07/2011 9:33 AM CDT Julia Arreola P.A.-C. LAB MICROBIOLOGY - GENERAL O RDERABLES Performing Organization Address City/State/[facility] Phon e Number POWERCHART documented in this encounter Visit Diagnoses Not on filedocumented in this encounter
--- OUTSIDE RECORDS SUMMARY | 2022-06-01 09:43 | XMS_ITS | Encounter Summary ---
:1995 Author Organization [facility] Address [address] [place] [address] Care Team Providers Name Role Phone Unavailable Primary Care Provider Unavailable Encounter Details Date Type Department Care Team Description 05/01/2012 Hospital Encounter HX [facility] [place] Stephanie Ge M.D. [...] How often do you attend restoration or adventist Never 10/23/2020 services? 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 - 05/01/2012 5:36 PM CDT [id number] CHIEF COMPLAINT/REASON FOR VISIT Xin comes in [...] in two days for repacking. Stephanie Ge M.D./[facility] Electronically Signed By: STEPHANIE GE MD On: 05/05/2012 07:47 AM Source: [facility] MHSDOLBEYNONRADSYS Document Id: [id number] documented in this encounter Nursing Notes Stuart, [...] PENA RN On: 04/29/2012 05:56 PM Source: [facility] POWERCHART Document Id: [id number] documented in this encounter Miscellaneous Notes Miscellaneous - Ember Bethea, LGonzaloP.NGonzalo - 05/01/2012 5:40 PM CDT Pediatric Employment Training Specialist Intake/History Pediatric Employment Training Specialist Intake/History Entered On: 05/01/2012 17:45 CDT Performed [...] LPN; Reviewed Date: 05/01/2012 16:08 CDT [facility] Document Id: [id number] documented in this encounter Plan of Treatment Not on filedocumented as of this encounter Visit Diagnoses Not on filedocumented in this encounter
--- OUTSIDE RECORDS SUMMARY | 2022-06-01 09:44 | XMS_ITS | Encounter Summary ---
:1995 Author Organization [facility] Address [address] [place] [address] Care Team Providers Name Role Phone Unavailable Primary Care Provider Unavailable Encounter Details Date Type Department Care Team Description 12/11/2007 Hospital Encounter HX [facility] INPT/OBSRV Aleida Mejia M.D. Social History Tobacco [...] How often do you attend bahai or orthodoxy Never 10/23/2020 services? 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
--- OUTSIDE RECORDS SUMMARY | 2022-06-01 09:44 | XMS_ITS | Encounter Summary ---
:1995 Author Organization [facility] Address [address] [place] [address] Care Team Providers Name Role Phone Unavailable Primary Care Provider Unavailable Encounter Details Date Type Department Care Team Description 12/05/[address] [facility] INTERNMED Rick Downey M.D. [address] [place] [phone] (Wo rk) Social History Tobacco [...] How often do you attend anabaptism or christian Never 10/23/2020 services? 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 Paras Galvan from [facility] for evaluation of chronic nasal congestion associated with recent episodes of wheezing and difficulty breathing. Mother states that about one month ago Carly had the gradual onset of short ness of breath and difficulty breathing that became quite severe and resulted in her going to the [facility] room in [place]. In the ER she was given two [...] and little sneezing or itching. RESPIRATORY: In e past she has not had any problems [...] 12/10/2003 CC : Dr. Paras Galvan Source: [facility] RWHXTRANSXSYS Document Id: [id number] documented in this encounter Miscellaneous Notes Miscellaneous - Conversion, Historical Provider Ser - 12/05/2003 5:30 PM CDT [id number] December 05, 2003 Paras Galvan M.D. [address] [address] Dear Paras: I had the opportunity to [...] questions. Sincerely, Tang Downey M.D. RAND/kiran Source: [facility] RWHXTRANSXRTFSYS Document Id: [id number] documented in this encounter Plan of Treatment Not on filedocumented as of this encounter Visit Diagnoses Not on filedocumented in this encounter
--- OUTSIDE RECORDS SUMMARY | 2022-06-01 09:44 | XMS_ITS | Encounter Summary ---
:1995 Author Organization [facility] Address [address] [place] [address] Care Team Providers Name Role Phone Unavailable Primary Care Provider Unavailable Encounter Details Date Type Department Care Team Description 04/13/2007 Hospital Encounter HX [facility] Vin Tavares, INPT/OBSRV M.D. [address] [phone] (Wo rk) Social History Tobacco Use Types [...] How often do you attend alevism or roman catholic Never 10/23/2020 services? 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
--- OUTSIDE RECORDS SUMMARY | 2022-06-01 09:44 | XMS_ITS | Encounter Summary ---
:1995 Author Organization [facility] Address [address] [place] [address] Care Team Providers Name Role Phone Unavailable [...] How often do you attend restoration or latter-day Never 10/23/2020 services? 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
--- OUTSIDE RECORDS SUMMARY | 2022-06-01 09:44 | XMS_ITS | Encounter Summary ---
:1995 Author Organization [facility] Address [address] [place] [address] Care Team Providers Name Role Phone Unavailable Primary Care Provider Unavailable Encounter Details Date Type Department Care Team Description 06/02/2011 Hospital Encounter HX [facility] Maureen petersen M.D. [address] [place] [phone] (Wo rk) Social History Tobacco Use Types [...] How often do you attend presybeterian or faith Never 10/23/2020 services? 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 - 06/02/2011 12:00 AM CDT [id number] CHIEF COMPLAINT/REASON FOR VISIT Sinus congestion. HISTORY [...] BACA MD On: 06/15/2011 08:44 AM Source: [facility] MHSDOLBEYNNEIL Document Id: [id number] documented in this encounter Miscellaneous Notes Miscellaneous [...] BACA MD - 06/02/2011 20:00 CDT Source: [facility] [employer] Document Id: [id number] CDT!7 Miscellaneous - Maureen Mancilla M.D. - 06/02/2011 5:34 PM CDT Ambulatory Patient Summary [address] [address] Visit Information Name: DHIRAJ LANDA Current Date: [...] No Appointments found Your Goals/Additional instructions: Source: [facility] POWERCHART Document Id: [id number] Electronically signed by Conversion, [facility] Swimming Pool Cleaner [id number] at 01/16/2017 4:24 PM CDT Miscellaneous - Maureen Mancilla M.D. - 06/02/2011 5:34 PM CDT Ambulatory Depart Summary [address] [address] Visit Information Name: RAYMONDKYLEDHIRAJ PAWEL Current Date: 06/02/2011 17:34:51 Primary Care Provider: [...] to the patient and/or family, guardian/caregiver. Source: [facility] POWERCHART Document Id: [id number] Electronically signed by Conversion, [facility] Swimming Pool Cleaner [id number] at 01/16/2017 4:24 PM CDT Miscellaneous - Chrissy Dia L.P.N. - 06/02/2011 5:13 PM CDT Pediatric Ship'S Surveyor Intake/History Pediatric Ship'S Surveyor Intake/History Entered On: 06/02/2011 17:20 CDT Performed [...] JENNIFER ARCHIBALD LPN; Reviewed Date: 10/23/2010 9:07 WELDING EQUIPMENT REPAIRER SUPERVISOR Source: [facility] [employer] Document Id: [id number] CDT!29 documented in this encounter Plan of Treatment Not on filedocumented as of this encounter Visit Diagnoses Not on filedocumented in this encounter
--- OUTSIDE RECORDS SUMMARY | 2022-06-01 09:44 | XMS_ITS | Encounter Summary ---
:1995 Author Organization [facility] Address [address] [place] [address] Care Team Providers Name Role Phone Unavailable Primary Care Provider Unavailable Encounter Details Date Type Department Care Team Description 09/13/[address] [facility] CAM INPT/OBSRV Kerry Galvan M.D. [address] [place] [address] (Wo rk) Social History Tobacco Use Types [...] How often do you attend anglican or cheondoism Never 10/23/2020 services? 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
--- OUTSIDE RECORDS SUMMARY | 2022-06-01 09:44 | XMS_ITS | Encounter Summary ---
:1995 Author Organization [facility] Address [address] [place] [address] Care Team Providers Name Role Phone Unavailable [...] How often do you attend judaism or adventist Never 10/23/2020 services? 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 JONELLEHXTRANSXSYS Document Id: [id number] documented in this encounter Plan of Treatment Not on filedocumented as of this encounter Visit Diagnoses Not on filedocumented in this encounter
--- OUTSIDE RECORDS SUMMARY | 2022-06-01 09:44 | XMS_ITS | Encounter Summary ---
:1995 Author Organization [facility] Address [address] [place] [address] Care Team Providers Name Role Phone Unavailable Primary Care Provider Unavailable Encounter Details Date Type Department Care Team Description 06/10/2009 Hospital Encounter HX [facility] CAM INPT/OBSRV Kerry Galvan M.D. [address] [place] [address] (Wo rk) Social History Tobacco Use Types [...] How often do you attend hinduism or sikhism Never 10/23/2020 services? 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
--- OUTSIDE RECORDS SUMMARY | 2022-06-01 09:44 | XMS_ITS | Encounter Summary ---
:1995 Author Organization [facility] Address [address] [place] [address] Care Team Providers Name Role Phone Unavailable Primary Care Provider Unavailable Encounter Details Date Type Department Care Team Description 12/19/2008 Hospital Encounter HX [facility] CAM INPT/OBSRV Kerry Galvan M.D. [address] [place] [address] (Wo rk) Social History Tobacco Use Types [...] How often do you attend adventist or temple Never 10/23/2020 services? 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/2017 10:51 AM PLASTER BLOCK LAYER documented as of this encounter Medications at [...]
--- OUTSIDE RECORDS SUMMARY | 2022-06-01 09:44 | XMS_ITS | Encounter Summary ---
:1995 Author Organization [facility] Address [address] [place] [address] Care Team Providers Name Role Phone Unavailable Primary Care Provider Unavailable Encounter Details Date Type Department Care Team Description 04/25/2007 Hospital Encounter HX [facility], INPT/OBSRV M.D. [address] [place] [phone] (Wo rk) Social History Tobacco Use [...] How often do you attend religion or zoroastrianism Never 10/23/2020 services? 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
--- OUTSIDE RECORDS SUMMARY | 2022-06-01 09:44 | XMS_ITS | Encounter Summary ---
:1995 Author Organization [facility] Address [address] [place] [address] Care Team Providers Name Role Phone Unavailable Primary Care Provider Unavailable Encounter Details Date Type Department Care Team Description 06/28/2007 Hospital Encounter HX [facility] CAM INPT/OBSRV Kerry Galvan M.D. [address] [place] [address] (Wo rk) Social History Tobacco Use Types [...] How often do you attend mormon or adventist Never 10/23/2020 services? 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
--- OUTSIDE RECORDS SUMMARY | 2022-06-01 09:44 | XMS_ITS | Encounter Summary ---
:1995 Author Organization [facility] Address [address] [place] [address] Care Team Providers Name Role Phone Unavailable [...] How often do you attend rastafari or episcopalian Never 10/23/2020 services? 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/2017 10:51 AM CRITICAL CARE REGISTERED NURSE documented as of this encounter Medications [...]
--- OUTSIDE RECORDS SUMMARY | 2022-06-01 09:44 | XMS_ITS | Encounter Summary ---
:1995 Author Organization [facility] Address [address] [place] [address] Care Team Providers Name Role Phone Unavailable Primary Care Provider Unavailable Encounter Details Date Type Department Care Team Description 05/21/2010 Hospital Encounter [facility] INPT/OBSRV Rodrigo Reyes M.D. [address] [place] [address] (Wo rk) Social History Tobacco Use Types [...] How often do you attend orthodoxy or denominational Never 10/23/2020 services? Do you [...] Date Recorded Female 08/12/2017 10:51 AM HEARING THERAPY DIRECTOR documented as of this encounter Medications [...]
--- OUTSIDE RECORDS SUMMARY | 2022-06-01 09:44 | XMS_ITS | Encounter Summary ---
:1995 Author Organization [facility] Address [address] [place] [address] Care Team Providers Name Role Phone Unavailable Primary Care Provider Unavailable Encounter Details Date Type Department Care Team Description 05/06/2008 Hospital Encounter HX [facility] CAM INPT/OBSRV Kerry Galvan M.D. [address] [place] [address] (Wo rk) Social History Tobacco Use Types [...] How often do you attend cheondoism or latter day Never 10/23/2020 services? 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
--- OUTSIDE RECORDS SUMMARY | 2022-06-01 09:44 | XMS_ITS | Encounter Summary ---
:1995 Author Organization [facility] Address [address] [place] [address] Care Team Providers Name Role Phone Unavailable Primary Care Provider Unavailable Encounter Details Date Type Department Care Team Description 07/29/[address] [facility] CAM FAMILY ME Heather Obando, TOBI, C.N.P., D. N.P. [address] [place] [address] (Wo rk) Social History Tobacco [...] How often do you attend congregation or protestant Never 10/23/2020 services? 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 - 07/29/2011 12:00 AM CST [id number] CHIEF COMPLAINT/REASON FOR VISIT Left ear pain. [...] that she has not been using any iung-gpt-irainds medication to help with her symptoms and states that her family members have similar upper respiratory infection like symptoms as well. PAST MEDICAL/SURGICAL HISTORY Past medical, surgical history reviewed. Please see chart. CURRENT MEDICATIONS Reviewed. Please see chart. ALLERGIES Reviewed. Please see chart. PHYSICAL EXAMINATION PHYSICAL EXAM OBJECTIVE: Patient is alert, well-nourished, acting appropriately for age. HEAD: Normocephalic/atraumatic. PUPILS: MARY. OROPHARYNX: Mallory and moist. EARS: The left tympanic membrane [...] the left eustachian tube area, taking Sudafed [id number] as directed on package p.r.n. as a [...] per mother's request) that was sent to [facility] though indicating only to fill per parent [...] plan Patient/Child/Caregiver expressed understanding of the content Heather Obando D.N.P., F.N.P. / Electronically Signed By: HEATHER OBANDO DNP, FNP On: 08/10/2011 11:46 AM Source: [facility] MHSDOLBEYNONRADSYS Document Id: [id number] NING OPERATOR documented in this encounter Miscellaneous Notes Miscellaneous - Heather Obando D.N.P., C.N.P. - 07/29/2011 5:20 PM GRAINING OPERATOR Ambulatory Patient Summary [address] [place] [address] Visit Information Name: DHIRAJ LANDA Current Date: [...] No Appointments found Your Goals/Additional instructions: Source: [facility] POWERCHART Document Id: [id number] NING OPERATOR Miscellaneous - Heather Obando D.N.P., C.N.P. - 07/29/2011 5:20 PM GRAINING OPERATOR Ambulatory Depart Summary [address] [place] [address] Visit Information Name: DHIRAJ LANDA Current Date: 07/29/2011 17:20:24 Physicians Attending Physician: HEATHER OBANDO DNP, SECURITY INCIDENT HANDLER Primary Care Provider: JAMARI MCHUGH MD AILYN LANDAN PAWEL has been given the [...] to the patient and/or family, guardian/caregiver. Source: [facility] POWERCHART Document Id: [id number] NING OPERATOR Miscellaneous - Heather Obando D.N.PGonzalo, C.N.P. - 07/29/2011 5:19 PM GRAINING OPERATOR Quality Measures Quality Measures Entered On: 07/29/2011 17:19 GRAINING OPERATOR Performed On: 07/29/2011 17:19 GRAINING OPERATOR by HEATHER OBANDO DNP, FNP Asthma Asthma Control Test (ACT) Score : 20 HEATHER OBANDO DNP, FNP - 07/29/2011 17:19 GRAINING OPERATOR Source: [facility] [employer] Document Id: [id number] GRAINING OPERATOR!3 NING OPERATOR Miscellaneous - Conversion, Historical Provider Ser - 07/29/2011 4:51 PM GRAINING OPERATOR Pediatric Clinical Program Consultant Intake/History Pediatric Clinical Program Consultant Intake/History Entered On: 07/29/2011 16:53 GRAINING OPERATOR Performed On: 07/29/2011 16:51 GRAINING OPERATOR by ERWIN COLON LPN Intake Chief Complaint [...] 74.50kg ERWIN COLON LPN - 07/29/2011 16:51 GRAINING OPERATOR Subjective Pain Symptoms : Yes ERWIN COLON LPN - 07/29/2011 16:51 GRAINING OPERATOR Pain Pain Assessment Grid Pain 1 Location : Ear Laterality : Left Intensity : 3 ERWIN COLON LPN - 07/29/2011 16:51 GRAINING OPERATOR Dependent Habits Tobacco Use/Currently Using : No Smoking Status : Never smoker ERWIN COLON LPN - 07/29/2011 16:51 GRAINING OPERATOR Caffeine Use Grid Caffeine Use : Current Type : Soft drinks Frequency : Daily ERWIN COLON LPN - 07/29/2011 16:51 GRAINING OPERATOR Recreational Drug Use Grid Drug Use : None ERWIN COLON LPN - 07/29/2011 16:51 GRAINING OPERATOR Allergy Allergies (Active) Suprax Estimated Onset Date: Unspecified ; Created By: JENNIFER ARCHIBALD LPN; Reaction Status: Active ; Category: Drug ; Substance: Suprax ; Type: Allergy ; Updated By: JENNIFER ARCHIBALD LPN; Reviewed Date: 10/23/2010 9:07 GRAINING OPERATOR Source: [facility] [employer] Document Id: [id number] GRAINING OPERATOR!30 documented in this encounter Plan of Treatment Not on filedocumented as of this encounter Visit Diagnoses Not on filedocumented in this encounter
--- OUTSIDE RECORDS SUMMARY | 2022-06-01 09:44 | XMS_ITS | Encounter Summary ---
:1995 Author Organization [facility] Address [address] [place] [address] Care Team Providers Name Role Phone Unavailable Primary Care Provider Unavailable Encounter Details Date Type Department Care Team Description 10/09/2007 Hospital Encounter HX [facility] CAM INPT/OBSRV Armond Salguero M.D. [address] [place], [place] [address] (Wo rk) Social History [...] How often do you attend baptism or anabaptism Never 10/23/2020 services? 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
--- OUTSIDE RECORDS SUMMARY | 2022-06-01 09:44 | XMS_ITS | Encounter Summary ---
:1995 Author Organization [facility] Address [address] [place] [address] Care Team Providers Name Role Phone Unavailable [...] at Date Recorded Female 08/12/2017 10:51 AM PULL OUT OPERATOR documented as of this encounter Medications [...]
--- OUTSIDE RECORDS SUMMARY | 2022-06-01 09:44 | XMS_ITS | Encounter Summary ---
:1995 Author Organization [facility] Address [address] [place] [address] Care Team Providers Name Role Phone Unavailable Primary Care Provider Unavailable Encounter Details Date Type Department Care Team Description 04/04/2007 Hospital Encounter HX [facility], INPT/OBSRV M.D. [address] [place] [phone] (Wo rk) Social History Tobacco Use [...] 10/23/2020 relatives? How often do you attend samaritan or restorationist Never 10/23/2020 services? Do you belong to any clubs or organizations such as No 12/04/2019 samaritan groups, unions, fraternal or athletic groups, or [...] at Date Recorded Female 08/12/2017 10:51 AM CQ DEVELOPER documented as of this encounter Medications [...]
--- OUTSIDE RECORDS SUMMARY | 2022-06-01 09:44 | XMS_ITS | Encounter Summary ---
:1995 Author Organization [facility] Address [address] [place] [address] Care Team Providers Name Role Phone Unavailable [...] How often do you attend mandaen or alevism Never 10/23/2020 services? 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
--- OUTSIDE RECORDS SUMMARY | 2022-06-01 09:44 | XMS_ITS | Encounter Summary ---
:[address] [facility] Address [address] [place] [address] Care Team Providers Name Role Phone Unavailable [...] How often do you attend caodaism or caodaism Never 10/23/2020 services? Do you [...] at Date Recorded Female 08/12/2017 10:51 AM BLACK OFF WORKER documented as of this encounter Miscellaneous Notes Miscellaneous - Conversion, Historical Provider Ser - 11/08/2003 12:00 AM BLACK OFF WORKER [id number] Addended by: CARLOS SANCHEZ on: 12/23/2003,4:02 PM Comment: PERTINENT INFORMATION ABSTRACTED INTO E NCOUNTER DATED 12-23-03, RECORDS FILED INTO PATIENT'S CHARTModules accepted: Progress NotesRECORDS RCVD [facility] CNTR SENT TO DR MOREAU 11-08-03 Source: [facility] RWHXTRANSXSYS Document Id: [id number] documented in this encounter Plan of Treatment Not on filedocumented as of this encounter Visit Diagnoses Not on filedocumented in this encounter
--- OUTSIDE RECORDS SUMMARY | 2022-06-01 09:44 | XMS_ITS | Encounter Summary ---
:1995 Author Organization [facility] Address [address] [place] [address] Care Team Providers Name Role Phone Unavailable Primary Care Provider Unavailable Encounter Details Date Type Department Care Team Description 10/05/2010 Hospital Encounter HX [facility] Johnnie Mchugh M.D. [address] [place] [phone] (Wo rk) Social History Tobacco Use Types [...] How often do you attend religion or jain Never 10/23/2020 services? Do you [...] at Date Recorded Female 08/12/2017 10:51 AM FAMILY AND CONSUMER SCIENCES TEACHER documented as of this encounter Medications at Time of Discharge Medication Sig Dispensed Refills Start Date End Date albuterol (for_ACCUNEB) one unit dose qid 0 12/0409/25/2018 2.5 mg /3 mL nebulizer and q2hr prn solution documented as of this encounter Progress Notes Jamari Mchugh M.D. - 10/05/2010 12:00 AM CST [id number] CHIEF COMPLAINT/REASON FOR VISIT: 15 -year-old female [...] JAMARI MCHUGH MD On: 10/05/2010 02:55 Source: [facility] BINASDOLBEYNNEIL Document Id: [id number] LY AND CONSUMER SCIENCES TEACHER documented in this encounter Miscellaneous Notes Miscellaneous - Jennifer Medellin L.P.N. - 10/05/2010 9:09 AM CST Adult Parachute Officer Intake/History Adult Parachute Officer Intake/History Entered On: 10/05/2010 9:11 FAMILY AND CONSUMER SCIENCES TEACHER Performed On: 10/05/2010 9:09 FAMILY AND CONSUMER SCIENCES TEACHER by JENNIFER MEDELLIN LPN Intake Chief Complaint: fever cough sob Onset of Symptoms: 2 days Temperature Oral: 38.4C(Converted to: 101.1DegF) (>HHI) Peripheral Pulse Rate: 128/min (HI) Respiratory Rate: 22/min (HI) SpO2: 97% Heart Rhythm: Regular Oxygen Therapy: Room air JENNIFER MEDELLIN LPN - 10/05/2010 9:09 FAMILY AND CONSUMER SCIENCES TEACHER Subjective Pain Symptoms: No JENNIFER MEDELLIN LPN - 10/05/2010 9:09 FAMILY AND CONSUMER SCIENCES TEACHER Dependent Habits Tobacco Use/Currently Using: No Tobacco Use/Last 12 months: No Tobacco Use/Advised to Quit: No JENNIFER MEDELLIN LPN - 10/05/2010 9:09 FAMILY AND CONSUMER SCIENCES TEACHER Allergies Allergies (Active) Suprax Estimated Onset Date: Unspecified ; Created By: JENNIFER MEDELLIN LPN; Reaction Status: Active ; Category: Drug ; Substance: Suprax ; Type: Allergy ; Updated By: JENNIFER MEDELLIN LPN; Reviewed Date: 09/29/2010 17:16 FAMILY AND CONSUMER SCIENCES TEACHER Source: [facility] POWERCHART Document Id: [id number] FAMILY AND CONSUMER SCIENCES TEACHER!16 LY AND CONSUMER SCIENCES TEACHER documented in this encounter Plan of Treatment Not on filedocumented as of this encounter Visit Diagnoses Not on filedocumented in this encounter
--- OUTSIDE RECORDS SUMMARY | 2022-06-01 09:44 | XMS_ITS | Encounter Summary ---
:1995 Author Organization [facility] Address [address] [place] [address] Care Team Providers Name Role Phone Unavailable Primary Care Provider Unavailable Encounter Details Date Type Department Care Team Description 07/01/2008 Hospital Encounter H[facility] CAM INPT/OBSRV Kerry Galvan M.D. [address] [place] [address] (Wo rk) Social History Tobacco Use Types [...] How often do you attend evangelical or religion Never 10/23/2020 services? 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
--- OUTSIDE RECORDS SUMMARY | 2022-06-01 09:44 | XMS_ITS | Encounter Summary ---
:1995 Author Organization [facility] Address [address] [place] [address] Care Team Providers Name Role Phone Unavailable Primary Care Provider Unavailable Encounter Details Date Type Department Care Team Description 09/29/2010 Hospital [facility] Johnnie Mchugh M.D. [address] [place] [phone] (Wo rk) Social History Tobacco Use Types [...] How often do you attend holiness or mandaen Never 10/23/2020 services? Do you [...] at Date Recorded Female 08/12/2017 10:51 AM LEATHER GRAINER documented as of this encounter Medications at Time of Discharge Medication Sig Dispensed Refills Start Date End Date albuterol (for_ACCUNEB) one unit dose qid 0 12/0409/25/2018 2.5 mg /3 mL nebulizer and q2hr prn solution documented as of this encounter Progress Notes Jamari Mchugh M.D. - 09/29/2010 12:00 AM CST [id number] IMPRESSION/REPORT/PLAN Right otitis media. Patient was given [...] JAMARI MCHUGH MD On: 09/30/2010 09:04 Source: [facility] MHSDOLBEYNONRADSYS Document Id: [id number] HER GRAINER documented in this encounter Miscellaneous Notes Miscellaneous - Jamari Mcuhgh M.D. - 09/29/2010 5:39 PM CST Ambulatory Patient Summary [facility] - [address] [address] Visit Information Name: DHIRAJ LANDA Current Date: [...] No Appointments found Your Goals/Additional instructions: Source: [facility] POWERCHART Document Id: [id number] Electronically signed by Conversion, [facility] Cane Loader [id number] at 01/16/2017 11:42 AM CDT Miscellaneous - Jamari Mchugh M.D. - 09/29/2010 5:39 PM CST Ambulatory Depart Summary [facility] - [address] [address] Visit Information Name: GORDOSTEPHLIZY WRIGHTALYN PAWEL Current Date: 09/29/2010 17:39:01 Primary Care Provider: JAMARI MCHUGH MD DHIRAJ LANDA PAWEL has been given the [...] to the patient and/or family, guardian/caregiver. Source: [facility] POWERCHART Document Id: [id number] Miscellaneous - Jennifer Medellin L.P.N. - 09/29/2010 5:17 PM CST Adult Strategic Development Manager Intake/History Adult Strategic Development Manager Intake/History Entered On: 09/29/2010 17:20 LEATHER GRAINER Performed On: 09/29/2010 17:17 LEATHER GRAINER by JENNIFER MEDELLIN LPN Intake Chief Complaint: right ear pain and drainage st sinus drainage Onset of Symptoms: 8 hours Temperature Oral: 37.4C(Converted to: 99.3DegF) Peripheral Pulse Rate: 88/min Respiratory Rate: 16/min Systolic Blood Pressure: 118mmHg Diastolic Blood Pressure: 62mmHg NIBP Mean: 81mmHg BP Location: Right upper extremity Heart Rhythm: Regular JENNIFER MEDELLIN LPN - 09/29/2010 17:17 LEATHER GRAINER Subjective Pain Symptoms: Yes JENNIFER MEDELLIN LPN - 09/29/2010 17:17 LEATHER GRAINER Pain Pain Assessment Grid Pain 1 Location: Ear Intensity: 3 JENNIFER MEDELLIN LPN - 09/29/2010 17:17 LEATHER GRAINER Dependent Habits Tobacco Use/Currently Using: No Tobacco Use/Last 12 months: No Tobacco Use/Advised to Quit: No JENNIFER MEDELLIN LPN - 09/29/2010 17:17 LEATHER GRAINER Allergies Allergies (Active) Suprax Estimated Onset Date: Unspecified ; Created By: JENNIFER MEDELLIN LPN; Reaction Status: Active ; Category: Drug ; Substance: Suprax ; Type: Allergy ; Updated By: JENNIFER MEDELLIN LPN; Reviewed Date: 09/29/2010 17:16 LEATHER GRAINER Source: [facility] [employer] Document Id: [id number] LEATHER GRAINER!23 HER GRAINER documented in this encounter Plan of Treatment Not on filedocumented as of this encounter Visit Diagnoses Not on filedocumented in this encounter
--- OUTSIDE RECORDS SUMMARY | 2022-06-01 09:44 | XMS_ITS | Encounter Summary ---
:1995 Author Organization [facility] Address [address] [place] [address] Care Team Providers Name Role Phone Unavailable [...] How often do you attend congregation or jew Never 10/23/2020 services? 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
--- OUTSIDE RECORDS SUMMARY | 2022-06-01 09:44 | XMS_ITS | Encounter Summary ---
:1995 Author Organization [facility] Address [address] [place] [address] Care Team Providers Name Role Phone Unavailable [...] How often do you attend latter-day or baptist Never 10/23/2020 services? 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 Thanks [facility] tier over [facility] Document Id: [id number] documented in this encounter Plan of Treatment Not on filedocumented as of this encounter Visit Diagnoses Not on filedocumented in this encounter
--- OUTSIDE RECORDS SUMMARY | 2022-06-01 09:44 | XMS_ITS | Encounter Summary ---
:1995 Author Organization [facility] Address [address] [place] [address] Care Team Providers Name Role Phone Unavailable Primary Care Provider Unavailable Encounter Details Date Type Department Care Team Description 10/23/2010 Hospital Encounter HX [facility] CAM FAMILY ME Stephanie Ge M.D. [...] How often do you attend alevism or sabianist Never 10/23/2020 services? Do you [...] at Date Recorded Female 08/12/2017 10:51 AM BOOK PACKER documented as of this encounter Medications at Time of Discharge Medication Sig Dispensed Refills Start Date End Date albuterol (for_ACCUNEB) one unit dose qid 0 12/0409/25/2018 2.5 mg /3 mL nebulizer and q2hr prn solution documented as of this encounter H&P Notes Stephanie Ge M.D. - 10/23/2010 12:00 AM CST [id number] HISTORY OF PRESENT ILLNESS Sary is here [...] for about a week. Stephanie Ge M.D. /anthony Electronically Signed By: STEPHANIE GE MD On: 10/23/2010 01:53 Source: [facility] [id number] Document Id: [id number] PACKER documented in this encounter Miscellaneous Notes Miscellaneous - Vinnie Lyman L.P.N. - 10/23/2010 9:07 AM CST Pediatric Hydrostatic Tester Intake/History Pediatric Hydrostatic Tester Intake/History Entered On: 10/23/2010 9:10 BOOK PACKER Performed On: 10/23/2010 9:07 BOOK PACKER by VINNIE LYMAN LPN Intake Chief Complaint: Sports Physical Golf Temperature Core: 36.4C(Converted to: 97.5DegF) (LOW) Peripheral Pulse Rate: 70/min Respiratory Rate: 18/min Systolic Blood Pressure: 100mmHg Diastolic Blood Pressure: 52mmHg NIBP Mean: 68mmHg BP Location: Left upper extremity Heart Rhythm: Regular Actual Weight: 68.800kg(Converted to: 151lb 11oz) Weight Source: Standing scale Dosing Weight Clinic: 68.80kg VINNIE LYMAN LPN - 10/23/2010 9:07 BOOK PACKER Subjective Pain Symptoms: No VINNIE LYMAN LPN - 10/23/2010 9:07 BOOK PACKER Dependent Habits Tobacco Use/Currently Using: No VINNIE LYMAN LPN - 10/23/2010 9:07 BOOK PACKER Allergy Allergies (Active) Suprax Estimated Onset Date: Unspecified ; Created By: JENNIFER ARCHIBALD LPN; Reaction Status: Active ; Category: Drug ; Substance: Suprax ; Type: Allergy ; Updated By: JENNIFER ARCHIBALD LPN; Reviewed Date: 10/23/2010 9:07 BOOK PACKER Source: [facility] [employer] Document Id: [id number] BOOK PACKER!18 PACKER documented in this encounter Plan of Treatment Not on filedocumented as of this encounter Visit Diagnoses Not on filedocumented in this encounter
--- OUTSIDE RECORDS SUMMARY | 2022-06-01 09:44 | XMS_ITS | Encounter Summary ---
:1995 Author Organization [facility] Address [address] [place] [address] Care Team Providers Name Role Phone Unavailable Primary Care Provider Unavailable Encounter Details Date Type Department Care Team Description 08/11/2007 Hospital Encounter HX [facility] CAM INPT/OBSRV Kerry Galvan M.D. [address] [place] [address] (Wo rk) Social History Tobacco Use Types [...] How often do you attend cheondoism or denominational Never 10/23/2020 services? Do you [...] Date Recorded Female 08/12/2017 10:51 AM CERTIFIED WELLNESS PROGRAM MANAGER documented as of this encounter Medications [...]
--- OUTSIDE RECORDS SUMMARY | 2022-06-01 09:47 | XMS_ITS | Clinical Summary ---
:1995 Author Organization [facility] [place] [address] Care Team Providers Name Role Phone Pcp, No Primary Care Provider Unavailable Allergies No known active allergies Medications Medication Sig Dispensed Refills Start Date End Date Status fluticasone-salmeterol Inhale 1 Puff by 1 Inhaler 0 04/12/2012 Active (ADVAIR DISKUS) 250-50 mouth every 12 mcg/Dose diskus inhaler hours. montelukast (SINGULAIR) Take 1 tablet by 0 3 Active 10 mg tablet mouth at bedtime. vitamin-folic Take 1 tablet by 0 08/20/2013 Active acid 1 mg ( mouth once daily. VITAMIN) tablet/capsule Active Problems Problem Noted Date Depressive disorder, not elsewhere classified 02/18/20 11 Family History Medical History Relation Name Comments Good Health Brother Good Health Father Good Health Mother Good Health Sister Relation Name Status Comments Brother Father Mother Sister Social History Tobacco Use Types Packs/Day Years Used Date Never Smoker Tobacco Cessation: Counseling Given: No Alcohol Use Standard Drinks/Week Comments No 0 (1 standard drink = 0.6 oz pure alcoho l) Sex Assigned at Date Recorded Not on file Obstetrics History Last Filed Vital Signs Vital Sign Reading Time Taken Comments Blood Pressure 105/65 08/20/2013 3:12 PM AUTOMOTIVE LIGHT MECHANIC Pulse 88 08/20/2013 3:12 PM AUTOMOTIVE LIGHT MECHANIC Temperature 36.4 ??C (97.5 ??F) 08/20/2013 3:12 PM AUTOMOTIVE LIGHT MECHANIC Respiratory Rate - - Oxygen Saturation 98% 03/22/2013 8:49 AM CDT Inhaled Oxygen Concentration - - Weight 76.2 kg (168 lb) 08/20/2013 3:12 PM AUTOMOTIVE LIGHT MECHANIC Height 167.6 cm (5' 6) 08/20/2013 3:12 PM AUTOMOTIVE LIGHT MECHANIC Body Mass Index 27.12 08/20/2013 3:12 PM AUTOMOTIVE LIGHT MECHANIC Plan of Treatment Health Maintenance Due Date Last Done Comments COVID-19 vaccine series (#1) 1995 Tdap 2006 Depression screening for age 12+ 2007 BMI (ht and wt on same day) for age 18+ 2013 Hepatitis C screening for age 18-79 2013 Tetanus booster 2015 Pap test for age 21-65 01/21/2016 Influenza for age 9-49 04/15/2022 Results Not on filefrom Last 3 Months Insurance Payer Benefit Plan / Subscriber ID Effective Dates Phone Addre ss Type Group [employer]UE [employer]OSS BLUE CROSS OF [id number] 2013-Present [address] [place] [address] [place] [employer] [id number] 2013-Present [address] [place] [address] BLUE CROSS BLUE CROSS OF [id number] 2013-Present [address] [place] [address] [id number] [place] [id number] Jason Joseph Motor Vehicle Self 1995 [phone] (Home) [place] [address] Care Teams Commercial Real Estate Associate Relationship Specialty Start Date End Date Pcp, No PCP - General 05/29/13 .
[2022-06-02 19:50] LABS: Rapid Plasma Reagin (RPR) Non Reactive (Non Reactive)
== END 2022-06-01 11:02 | disposition home or self-care (01) ==
PROVIDERS: Visit Provider Obstetrics & Gynecology
DX: Z34.93 Encounter for supervision of normal pregnancy, unspecified, third trimester (principal); Z3A.28 28 weeks gestation of pregnancy
CPT/HCPCS: 86592; 86850

== ENCOUNTER 2022-07-06 09:56 | Outpatient (CLI) | payer BC, OTHER, SELFPAY ==
--- NOTE | 2022-07-06 09:45 | CRLHL7_ITS ---
For Patients: As a result of the Century Cures Act, medical imaging exams and procedure reports are released immediately into your electronic medical record. You may view this report before your referring provider. If you have questions, please contact your health care provider. INDICATION: elevated BMI, care TECHNIQUE: Real time bruner scale imaging of the fetus was performed. COMPARISON: 04/07/2022 FINDINGS: Sonographic imaging demonstrates a single living intrauterine gestation. Fetus demonstrates a regular cardiac rate of 144 beats per minute. Fetus has a vertex position. The placenta lies posteriorly. Amniotic fluid volume appears normal and there is a single deepest pocket of 6.8 cm. The estimated weight is 2323gm which lies at the 55th %. On the prior OB ultrasound dated 04/07/2022 the estimated weight was at the 43rd percentile. BPD 91st percentile. HC 67th percentile. AC 67th percentile. FL 21st percentile. The fetus was active and demonstrated normal breathing movements. There was normal flexion and extension of the trunk and extremities. IMPRESSION: Normal biophysical profile score 8/8. Sonographic gestational age 34 weeks 3 days and sonographic due date 08/14/2022. Sonographic age 6 days ahead of the clinical age. Estimated weight 55th percentile. Abdominal circumference 67th percentile. Dictated by Dom Sethi MD @ 07/06/2022 10:59:13 AM (Electronically Signed)
--- OUTSIDE RECORDS SUMMARY | 2022-07-06 10:20 | XMS_ITS | Encounter Summary ---
:1995 Author Organization [facility] Address [address] [place] [address] Care Team Providers Name Role Phone Treesita Barkley M.D. Primary Care Provider Encounter Details Date Type Department Care Team Description 03/16/2022 Orders Only Department of Family Min Barkley M.D. [facility], [address], in [facility] [phone] [place] [address] [place] [phone] Social History Tobacco Use Types Packs/Day Years [...] How often do you attend episcopalian or jain Never 10/23/2020 services? 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 PCP - General 01/15/[address] [place] [phone] documented as of this encounter
--- OUTSIDE RECORDS SUMMARY | 2022-07-06 10:20 | XMS_ITS | Clinical Summary ---
:1995 Author Organization [facility] Address [address] [place] [address] Care Team Providers Name Role Phone Teresita Barkley M.D. Primary Care Provider Source Comments Patient records contain information from all sites at [facility]. For routine questions regarding patient records, call [phone] during business hours, M-F 8:00 AM - 5:00 PM Central Time. Record requests for emergency care only can be directed to [phone] at any time.[facility] Allergies Active Allergy Reactions Severity Noted Date [...] Added automatically from request for fracisco joseph [id number] Obesity Body Mass Index 30-39.9 Adult 02/19/2019 Bipolar II Disorder 07/01/2017 10/11/2018 Depressive Disorder 06/20/2015 07/01/2017 Overview: Depression NOS Hypertension Gestational Delivered 12/27/201303/08 Overview: Hypertension HTN Gestational (PIH) Deliv ered Asthma NOS 02/15/2012 10/12/2017 Overview: Asthma NOS (493.90) Exercise induced Pain Hip Left 10/24/2020 Immunizations Name Administration Dates Next Due 4vHPV [...] How often do you attend taoist or moravian Never 10/23/2020 services? 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 Last Filed Vital Signs Vital Sign Reading Time Taken Comments Blood Pressure 131/88 10/26/2021 5:20 PM CDT Pulse 64 10/26/2021 5:20 PM CDT Temperature 36.3 ??C (97.3 ??F) 10/26/2021 5:20 PM CDT Respiratory Rate 17 10/26/2021 5:20 PM CDT Oxygen Saturation 97% 08/13/2021 8:26 AM CIGAR MACHINE FEEDER Inhaled Oxygen Concentration - - Weight 122 kg (268 lb 1.3 oz) 10/26/2021 5:20 PM CDT Height 167.5 cm (5' 5.95) 10/24/2020 8:34 AM CIGAR MACHINE FEEDER Body Mass Index 43.34 10/24/2020 8:34 AM CIGAR MACHINE FEEDER Plan of Treatment Health Maintenance Due Date Last Done Comments HIV Screening 1995 Hepatitis B Vaccines (1 of 3 - 1995 3-dose series) COVID-19 Vaccine (#1) 1995 Asthma Action Plan 01/03/2018 01/03/2017 Asthma Control Test Questionnaire 10/24/2021 10/24/2020, , 01/03/2017 Pneumococcal vaccine (0-64 years) 10/24/2021 10/24/2020 (2 - PCV) Depression Monitoring (PHQ-9) 05/10/2022 01/07/2022 Cervical Cancer Screening 10/25/2023 10/24/2020, 04/05/2016 DTaP,Tdap,and Td Vaccines (4 - Td 06/29/2032 06/29/2022, , or Tdap) 04/13/2007 Chlamydia and Gonorrhea Screening Discontinued 03/08/2018, , 04/05/2016, Additional history exists Influenza Vaccine Completed 06/29/2022, 06/12/2021, 05/26/2020, Additional history exists Medical Devices Implanted Type Area Aircraft Painter Device Shelf Model / Identifier Expiration Serial / Date Lot Scrw Lcd St Fthrd 3.5x12 - [id number] - [id number] Ankle Left: Depuy Synthes 204.012 / Implanted: Qty: 2 on 02/20/2019 by Bruno Verde M.D. at [facility] Implant Ankle 204.012 / Scrw Dcp St Fthrd 3.5x10 - [id number] Hardware Left: Depuy Syn thes 204.010 / Implanted: Qty: 2 on 02/20/2019 by Bruno Verde M.D. at [facility] e.g. Ankle / pins/screws/ rods Insurance Payer Benefit Plan / Subscriber ID Effective Phone Address T ype Group Dates [facility] [id number] 2019-Prese [address] Medicaid HMO [place] [address] [place] [address] Care Teams Community Health Agent Relationship Specialty Start Date End Date Teresita Barkley M.D. PCP - General 01/15/[address] [place] [phone]
--- OUTSIDE RECORDS SUMMARY | 2022-07-06 10:21 | XMS_ITS | Encounter Summary ---
:1995 Author Organization [facility] Address [address] [place] [address] Care Team Providers Name Role Phone Ary Purcell P.A.-C., P.A. Primary Care Provider Ailin diaz Encounter Details Date Type Department Care Team Description 10/30/2020 Orders Only [facility] PCP [facility] Sa elke Alonso M.D. [address] [place], [place] [phone] (Wo rk) Social History [...] How often do you attend pentecostalism or taoist Never 10/23/2020 services? 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 PCP - General 06/07/19 01/14/22 documented as of this encounter
--- OUTSIDE RECORDS SUMMARY | 2022-07-06 10:21 | XMS_ITS | Encounter Summary ---
:1995 Author Organization [facility] Address [address] [place] [address] Care Team Providers Name Role Phone Teresita Barkley M.D. Primary Care Provider Encounter Details Date Type Department Care Team Description 08/13/2021 Orders Only Department of Family Ary Purcell, Medicine, [place] [facility], in [address] [phone] Social History Tobacco [...] How often do you attend mosque or denominational Never 10/23/2020 services? 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 PCP - General 01/15/[address] [place] [phone] documented as of this encounter
--- OUTSIDE RECORDS SUMMARY | 2022-07-06 10:21 | XMS_ITS | Encounter Summary ---
:1995 Author Organization [facility] Address [address] [place] [address] Care Team Providers Name Role Phone Ary [...] Expiration Date Visits Requ ested Visits Authorized [id number] Closed 04/07/2021 04/07/2022 1 1 Encounter Details Date Type Department Care Team Description 04/21/2021 Office Visit Department of [place], [place] (Primary Dx); Medicine, [place] [facility], in [address] [phone] Social History Tobacco Use Types Packs/Day Years [...] How often do you attend anglican or latter day Never 10/23/2020 services? 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 She has tried hdtk-ema-chwvldi remedies without relief. Looking for next steps in therapy. She has also noticed dry patches on her hands bilateral withscaling and cracking. She has tried mrnj-mev-mvoehpp topical antibiotics without improvement. The following portions [...] ASSESSMENT / PLAN #1 Wart Discussed ongoing reap-ogx-wqclbdm remedies. Cryotherapy provided at today's visit. Continue to monitor #2 Eczema Discussed utilizing tmqr-otw-iuolizj topical hydrocortisone cream along with moisturizing emollients. [...] documented as of this encounter Care Teams Transportation Project Manager Relationship Specialty Start Date End Date Ary Purcell P.A.Ana., P.A. PCP - General 06/07/19 01/14/22 documented as of this encounter
--- OUTSIDE RECORDS SUMMARY | 2022-07-06 10:21 | XMS_ITS | Encounter Summary ---
:1995 Author Organization [facility] Address [address] [place] [address] Care Team Providers Name Role Phone Ary Purcell P.A.-C., P.A. Primary Care Provider Unavaila ble Reason for Visit Reason Comments Med Refill Encounter Details Date Type Department Care Team Description 11/10/2021 Refill Department of Family Medicine, Vani Purcell, Med Refill [facility], in [place] Gabriel, P .A. [address] [phone] Social History Tobacco Use [...] How often do you attend protestant or gnosticism Never 10/23/2020 services? 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 PCP - General 06/07/19 01/14/22 documented as of this encounter
--- OUTSIDE RECORDS SUMMARY | 2022-07-06 10:21 | XMS_ITS | Encounter Summary ---
:1995 Author Organization [facility] Address [address] [place] [address] Care Team Providers Name Role Phone Teresita Barkley M.D. Primary Care Provider Encounter Details Date Type Department Care Team Description 11/10/2021 Orders Only Department of Family Ary Purcell, Medicine, [place] [facility], in [address] [phone] Social History Tobacco [...] How often do you attend pentecostal or anglican Never 10/23/2020 services? 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 PCP - General 01/15/[address] [place] [phone] documented as of this encounter
--- OUTSIDE RECORDS SUMMARY | 2022-07-06 10:21 | XMS_ITS | Encounter Summary ---
:1995 Author Organization [facility] Address [address] [place] [address] Care Team Providers Name Role Phone Ary Purcell P.A.-C., P.A. Primary Care Provider Unavaila ble Reason for Visit Reason Comments Med Refill Encounter Details Date Type Department Care Team Description 12/09/2021 Refill Department of Family Medicine, Vani Purcell, Med Refill [facility], in [place] Gabriel, P .A. [address] [phone] Social History Tobacco [...] How often do you attend faith or hindu Never 10/23/2020 services? 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 PCP - General 06/07/19 01/14/22 documented as of this encounter
--- OUTSIDE RECORDS SUMMARY | 2022-07-06 10:21 | XMS_ITS | Encounter Summary ---
:1995 Author Organization [facility] Address [address] [place] [address] Care Team Providers Name Role Phone Ary Purcell P.A.-C., P.A. Primary Care Provider Unavaila ble Reason for Visit Reason Onset Date Comments Testing For Upper Respiratory Virus Symptoms 08/20/2021 Encounter Details Date Type Department Care Team Description 08/20/2021 External Outreach Department of [facility] Betty Garcia Contact With And (Suspected) Exposure To COVID-19; Medicine, [place] T, PGonzaloA.-C. Infection Upper Respiratory Clinic, in [address] [address] [place], [place] [phone] (Work) [phone] Social History Tobacco Use Types Packs/Day Years [...] How often do you attend christian or jehovah's witness Never 10/23/2020 services? 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 - 08/20/2021 9:35 AM CST Encounter created for symptomatic infectious disease screening with possible COVID, Influenza, RSV, and/or Group A Strep testing. R VEHICLE LIGHT ASSEMBLER documented in this encounter Miscellaneous Notes Result Encounter Note - Lori Gregg R.N. - 08/21/2021 8:04 AM MOTOR VEHICLE LIGHT ASSEMBLER Your patient has tested positive for SARS-CoV-2, the virus that causes COVID-19. IMPORTANT: Please update the patient's problem list and medication list to ensure an accurate and timely evaluation for COVID-19 treatments, including various medications and Remote Patient Monitoring (RPM). If eligible for COVID-19 treatments or RPM, your patient will be contacted by a designated team of nurses to coordinate the care. The [facility] ([facility]) sends general guidance about COVID-19 to all patients by letter or portal, except when a patient is hospitalized or resides in a halfway. The [facility] will also call all adult patients at highest risk for severe complications of COVID-19 andall who require an preschool disability teacher. Any patient with a MASS score 1 [...] for symptom management. For questions, contact the [facility] ([facility]): Pager: [phone] In basket: P RST/[facility] COVID-19 POSITIVE Covid [...] to obtain the result by calling the [facility] result line or by checking their online services account. R VEHICLE LIGHT ASSEMBLER documented in this encounter Plan of Treatment Not on filedocumented as of this encounter Procedures Procedure Name Priority Date/Time Associated Diagnosis Comme nts INFLUENZA A/B AND Routine 08/20/2021 11:46 AM Infection Upper Results for this RSV, PCR, VARIES MOTOR VEHICLE LIGHT ASSEMBLER Respiratory procedure a re in the results section. SARS CORONAVIRUS-2 Routine 08/20/2021 11:46 AM Contact With An d Results for this RNA, V MOTOR VEHICLE LIGHT ASSEMBLER (Suspected) Exposure procedu re are in To COVID-19 the results section. documented in this encounter Results Influenza A/B and RSV, PCR, Varies (08/20/2021 11:46 AM MOTOR VEHICLE LIGHT ASSEMBLER) [facility] Method Time Signature Influenza A/B Swab, 08/23/2021 DTL and RSV, Nasopharynx 3:33 PM MOTOR VEHICLE LIGHT ASSEMBLER Source Influenza A, Undetected Undetected 08/23/2021 DTL PCR 3:33 PM MOTOR VEHICLE LIGHT ASSEMBLER Comment: Influenza A RNA absent. Influenza B, PCR Undetected Undetected 08/23/2021 3:33 PM CS T DTL Comment: Influenza B RNA absent. Respiratory Syncytial Virus, PCR Undetected Undetected 04/2022 3:33 PM MOTOR VEHICLE LIGHT ASSEMBLER DTL Comment: RSV RNA absent. ----ADDITIONAL INFORMATION---- This test has been modified from the man ufacturer's instructions. Its performance characteristics were determi bryan by [facility] in a manner consistent with CLIA requirements. This test has not been cleared or approved by the U.S. Food and Drug Administration . Specimen Anatomical Collection Method Collection Time Receive d Time (Source) Location / / Volume Laterality Varies 08/20/2021 11:46 08/20/2021 (Nasopharynx) AM MOTOR VEHICLE LIGHT ASSEMBLER 10:09 PM MOTOR VEHICLE LIGHT ASSEMBLER Emmanuel Garcia P.A.-C. LAB MICROBIOLOGY - GENERAL O RDERAMANDY Performing Organization Address City/[facility]/ZIP Code Phon e Number [facility] - [address] [place] [address] [phone] [facility] [place] [address] Laboratories-[facility] 200 [facility] (ABNORMAL) SARS Coronavirus-2 RNA, V Symptomatic (08/20/2021 11:46 AM MOTOR VEHICLE LIGHT ASSEMBLER) [facility] Method Time Signature SARS-CoV-2 Swab, 08/21/2021 ECLR Specimen Nasopharynx 4:29 AM MOTOR VEHICLE LIGHT ASSEMBLER Source SARS CoV-2 Detected (A) Undetected 08/21/2021 ECLR RNA, TMA 4:29 AM MOTOR VEHICLE LIGHT ASSEMBLER Comment: SARS-CoV-2 RNA present. ----ADDITIONAL INFORMATION---- This molecular amplification test was pe rformed using the Aptima SARS-CoV-2 assay ([employer] on the [employer] tem under emergency use authorization (EUA) by the U.S. Food and Drug Administ trinity. Fact sheets for this EUA assay can be fo und at the following links: For Healthcare Providers: https://www.fd a.gov/media/674411/download For Patients: https://www.fda.gov/media/ 164081/download Specimen Anatomical Collection Method Collection Time Receive d Time (Source) Location / / Volume Laterality Varies 08/20/2021 11:46 08/20/2021 4:12 (Nasopharynx) AM MOTOR VEHICLE LIGHT ASSEMBLER PM MOTOR VEHICLE LIGHT ASSEMBLER Emmanuel Garcia P.A.-C. LAB MICROBIOLOGY - GENERAL O RDERAMANDY Performing Organization Address City/State/ZIP Code Phon e Number [facility]- [address] [place] [address] [phone] [facility] [place] [address] System in [address] documented in this encounter Visit Diagnoses Diagnosis Contact With And (Suspected) Exposure To COVID-19 Infection Upper Respiratory documented in this encounter Additional Health Concerns Infection Onset Date Last Indicated Resolved Time COVID19 Pending 08/20/2021 08/20/2021 08/21/2021 4:30 AM MOTOR VEHICLE LIGHT ASSEMBLER Assessment Noted Time PHQ-9 Depression Total Score: 11 08/13/2021 8:00 AM CS T documented as of this encounter Care Teams Space Sciences Director Relationship Specialty Start Date End Date Ary Purcell P.A.Ana., P.A. PCP - General 06/07/19 01/14/22 documented as of this encounter
--- OUTSIDE RECORDS SUMMARY | 2022-07-06 10:21 | XMS_ITS | Encounter Summary ---
:1995 Author Organization [facility] Address [address] [place] [address] Care Team Providers Name Role Phone Ary Purcell P.A.-C., P.A. Primary Care Provider Unavaila ble Reason for Referral Outpatient (Routine) - Closed Specialty Diagnoses / Procedures Referred By Contact Refer red To Contact Diagnoses Pain Wrist Left Ary Purcell P.A.-C., [facility] Region Procedures DX Wrist Left 3+ Views P.A. 200 [place] [address] Referral ID Status Reason Start Date Expiration Date Visits Requ ested Visits Authorized [id number] Closed 10/26/2021 10/26/2022 1 1 Reason for Visit Reason Comments Wrist Pain Left wrist pain. States it s tarted last april. Does not recollect any trauma to wrist. Aleve seems to help with pain a little. Also discuss kenalog cream. Encounter Details Date Type Department Care Team Description 10/26/2021 Office Visit Department of [facility] Ary Purcell Pai n Wrist Left (Primary Dx); Medicine, [place] Gabriel, P.A. [facility], in [address] [phone] Social History Tobacco Use Types [...] How often do you attend congregational or lutheran Never 10/23/2020 services? Do you [...] or the highest technical, or vocational p [facility] degree you have received? 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 Negative Tinel and Phalen test. Decreased sign language interpreter strength on the left due to pain. [...] and water at work rather than hand nat instructor as this could be an irritantto her [...] Ary Purcell P.A.-C., P.A. IMG DIAGNOSTIC IMAGING [place] OCEDURES documented in this encounter Visit Diagnoses Diagnosis Pain Wrist Left - Primary Eczema Pain Wrist Left documented in this encounter Additional Health Concerns Assessment Noted Time PHQ-9 Depression Total Score: 1 09/01/2021 12:11 PM CS T documented as of this encounter Care Teams Sign Writer Hand Relationship Specialty Start Date End Date Ary Purcell P.A.-C., P.A. PCP - General 06/07/19 01/14/22 documented as of this encounter
--- OUTSIDE RECORDS SUMMARY | 2022-07-06 10:21 | XMS_ITS | Encounter Summary ---
:1995 Author Organization [facility] Address [address] [place] [address] Care Team Providers Name Role Phone Ary [...] Expiration Date Visits Requ ested Visits Authorized [id number] Closed 08/04/2021 08/04/2022 1 1 Encounter Details Date Type Department Care Team Description 08/13/2021 Comprehensive Visit Department of [facility] Ary Purcell Anxiety (Primary Dx); MedicineYulia P.A.-C., Depression Major One Episode Full Remission (HCC); [facility] in P.A. Asthma Mode rate Persistent (HCC); [place], Dermatitis Akhil [address] [place] [phone] Social History Tobacco Use Types Packs/Day Years [...] How often do you attend pentecostalism or yazdanism Never 10/23/2020 services? 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 documented as of this encounter Last Filed Vital Signs Vital Sign Reading Time Taken Comments Blood Pressure 117/81 08/13/2021 8:26 AM PROFESSOR OF EDUCATION Pulse 81 08/13/2021 8:26 AM PROFESSOR OF EDUCATION Temperature 35.8 ??C (96.4 ??F) 08/13/2021 8:26 AM PROFESSOR OF EDUCATION Respiratory Rate 20 08/13/2021 8:26 AM PROFESSOR OF EDUCATION Oxygen Saturation 97% 08/13/2021 8:26 AM PROFESSOR OF EDUCATION Inhaled Oxygen Concentration - - Weight 119 kg (262 lb 2 oz) 08/13/2021 8:26 AM PROFESSOR OF EDUCATION Height - - Body Mass Index 42.38 10/24/2020 8:34 AM PROFESSOR OF EDUCATION documented in this encounter Patient Instructions Patient InstructionsAry Purcell P.A.-Mitchell., P.A. - 08/13/2021 8:30 AM PROFESSOR OF EDUCATION For depression: -continue lexapro 20mg daily -vitamin D3 2000 IU daily -light therapy 10-15 min daily For anxiety: -start buspar 5mg 2-3 times daily Will check in on the portal in 1-2 weeks Start triamcinolone cream on hands twice daily for 2 weeks -emollients such as aquaphor or eucerin cream as well ESSOR OF EDUCATION documented in this encounter Progress Notes Ary [...] eczema bilateral hands. She has been using [id number] hydrocortisone cream per recommendations from visit in [...] time: 25 minutes Ary Purcell P.A.-C., P.A. ESSOR OF EDUCATION documented in this encounter Plan of Treatment Not on filedocumented as of this encounter Visit Diagnoses Diagnosis Anxiety - Primary Depression Major One Episode Full Remiss ion (HCC) Asthma Moderate Persistent (HCC) Dermatitis Atopic documented in this encounter Additional Health Concerns Assessment Noted Time PHQ-9 Depression Total Score: 11 08/13/2021 8:00 AM GE T documented as of this encounter Care Teams Microfilm Processor Relationship Specialty Start Date End Date Ayr Purcell P.A.-C., P.A. PCP - General 06/07/19 01/14/22 documented as of this encounter
--- OUTSIDE RECORDS SUMMARY | 2022-07-06 10:21 | XMS_ITS | Encounter Summary ---
:1995 Author Organization [facility] Address [address] [place] [address] Care Team Providers Name Role Phone Teresita Barkley M.D. Primary Care Provider Reason for Visit Reason Comments Med Refill Encounter Details Date Type Department Care Team Description 03/16/2022 Refill Department of Family Medicine, Teresita Galarza M.D. Med Refill [facility], in [place] [address] [address] [place], [place] [phone] Social History Tobacco Use Types Packs/Day Years [...] How often do you attend jain or faith Never 10/23/2020 services? 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 PCP - General 01/15/[address] [place] [phone] documented as of this encounter
--- OUTSIDE RECORDS SUMMARY | 2022-07-06 10:21 | XMS_ITS ---
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 Primary Care Provider Encounter Details Date Type Department Care Team Description 12/09/2021 Orders Only Department of Family Ary Purcell, Medicine, [place] P.A.-C., P.A. Clinic, in [address] [phone] Social History Tobacco Use [...] How often do you attend hindu or restoration Never 10/23/2020 services? 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 PCP - General 01/15/[address] [place] [phone] documented as of this encounter
--- OUTSIDE RECORDS SUMMARY | 2022-07-06 10:21 | XMS_ITS | Encounter Summary ---
:1995 Author Organization [facility] Address [address] [place] [address] Care Team Providers Name Role Phone Teresita Barkley M.D. Primary Care Provider Encounter Details Date Type Department Care Team Description 10/26/2021 Orders Only Department of Family Ary Purcell, Medicine, [place] P.A.-C., P.A. Clinic, in [address] [phone] Social History Tobacco Use [...] How often do you attend yarsani or hindu Never 10/23/2020 services? 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 PCP - General 01/15/[address] [place] [phone] documented as of this encounter
--- OUTSIDE RECORDS SUMMARY | 2022-07-06 10:21 | XMS_ITS | Encounter Summary ---
:1995 Author Organization [facility] Address [address] [place] [address] Care Team Providers Name Role Phone Ary Purcell P.A.-C., P.A. Primary Care Provider Unavaila ble Reason for Referral Outpatient (Routine) - Closed Specialty Diagnoses / Procedures Referred By Contact Refer red To Contact Diagnoses Pain Wrist Left Ary Purcell P.A.-C., [facility] Region Procedures DX Wrist Left 3+ Views P.A. 200 [place] [address] Referral ID Status Reason Start Date Expiration Date Visits Requ ested Visits Authorized [id number] Closed 10/26/2021 10/26/2022 1 1 Reason for Visit Outpatient (Routine) - Closed Specialty Diagnoses / Procedures Referred By Contact Refer red To Contact Diagnoses Pain Wrist Left Ary Purcell P.A.-C., [facility] Region Procedures DX Wrist Left 3+ Views P.A. [address] [place] [address] Referral ID Status Reason Start Date Expiration Date Visits Requ ested Visits Authorized [id number] Closed 10/26/2021 10/26/2022 1 1 Encounter Details Date Type Department Care Team Description 10/26/2021 Hospital Encounter Department of Radiology Sigifredo Purcell, Pain Wrist Left [place], P.A. [address] [phone] Social History Tobacco Use Types Packs/Day Years [...] How often do you attend methodist or sikhism Never 10/23/2020 services? 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 IMG DIAGNOSTIC IMAGING [place] OCEDURES documented in this encounter Visit Diagnoses Diagnosis Pain Wrist Left documented in this encounter Additional Health Concerns Assessment Noted Time PHQ-9 Depression Total Score: 1 09/01/2021 12:11 PM CS T documented as of this encounter Care Teams Ham Facer Relationship Specialty Start Date End Date Ary Purcell P.A.-C., P.A. PCP - General 06/07/19 01/14/22 documented as of this encounter
--- OUTSIDE RECORDS SUMMARY | 2022-07-06 10:21 | XMS_ITS | Encounter Summary ---
:1995 Author Organization [facility] Address [address] [place] [address] Care Team Providers Name Role Phone Ary Purcell P.A.-C., P.A. Primary Care Provider Ailin diaz Encounter Details Date Type Department Care Team Description 08/21/2021 Orders Only Department of [facility] Ary Purcell, Medicine, [place] Moses., P.A. Clinic, in [address] [phone] Social History Tobacco Use [...] How often do you attend christianity or pentecostalism Never 10/23/2020 services? 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 PCP - General 06/07/19 01/14/22 documented as of this encounter
--- OUTSIDE RECORDS SUMMARY | 2022-07-06 10:21 | XMS_ITS | Encounter Summary ---
:1995 Author Organization [facility] Address [address] [place] [address] Care Team Providers Name Role Phone Ary Purcell P.A.-C., P.A. Primary Care Provider Unavaila ble Reason for Visit Reason Comments Med Refill Encounter Details Date Type Department Care Team Description 04/24/2021 Refill Department of Family Medicine, Vani Purcell, Med Refill [facility], in [place] Gabriel, P .A. [address] [phone] Social History Tobacco Use [...] How often do you attend anabaptist or latter day Never 10/23/2020 services? 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 Historical med list shows the prescription has . Please renew orreject as appropriate. Thank you. Now requested by [facility] - Hakeem Genao. documented in this encounter Plan of Treatment Not on filedocumented as of this encounter Visit Diagnoses Not on filedocumented in this encounter Additional Health Concerns Assessment Noted Time PHQ-9 Depression Total Score: 1 04/21/2021 8:46 AM CDT documented as of this encounter Care Teams Typo Machine Operator Relationship Specialty Start Date End Date Ary Purcell P.A.-C., P.A. PCP - General 06/07/19 01/14/22 documented as of this encounter
--- OUTSIDE RECORDS SUMMARY | 2022-07-06 10:21 | XMS_ITS | Encounter Summary ---
:1995 Author Organization [facility] Address [address] [place] [address] Care Team Providers Name Role Phone Ary Purcell P.A.-C., P.A. Primary Care Provider Ailin diaz Encounter Details Date Type Department Care Team Description 08/20/2021 Admin Visit Department of [facility] Ary Purcell, Medicine, [facility] PD[facility]., P.A. in [address] [phone] Social History Tobacco Use Types Packs/Day [...] How often do you attend amish or yazidism Never 10/23/2020 services? 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 PCP - General 06/07/19 01/14/22 documented as of this encounter
--- OUTSIDE RECORDS SUMMARY | 2022-07-06 10:21 | XMS_ITS | Encounter Summary ---
:1995 Author Organization [facility] Address [address] [place] [address] Care Team Providers Name Role Phone Ary Purcell P.A.-C., P.A. Primary Care Provider Unavaila ble Reason for Visit Reason Comments Med Refill Encounter Details Date Type Department Care Team Description 01/07/2022 Refill Department of Family Medicine, Vani Purcell, Med Refill [facility], in [place] Gabriel, P .A. [address] [phone] Social History Tobacco Use [...] How often do you attend hoahaoism or restoration Never 10/23/2020 services? 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 PCP - General 06/07/19 01/14/22 documented as of this encounter
--- OUTSIDE RECORDS SUMMARY | 2022-07-06 10:21 | XMS_ITS | Encounter Summary ---
:1995 Author Organization [facility] Address [address] [place] [address] Care Team Providers Name Role Phone Ary Purcell P.A.-C., P.A. Primary Care Provider Unavaila ble Reason for Visit Reason Comments Med Refill Encounter Details Date Type Department Care Team Description 12/25/2020 Refill Department of Family Medicine, Vani Purcell, Med Refill [facility], in [place] Gabriel, P .A. [address] [phone] Social History Tobacco Use [...] How often do you attend spiritism or shinto Never 10/23/2020 services? Do you [...] or the highest technical, or vocational p [facility] degree you have received? 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 Name: Escitalopram oxalate Strength: 20 mg tab Frequency: take one tab PO daily Quantity: 30 Refills: Last Refill: 11-25-20 Pharmacy: [facility] documented in this encounter Plan of Treatment Not on filedocumented as of this encounter Visit Diagnoses Diagnosis Anxiety Generalized Disorder documented in this encounter Additional Health Concerns Assessment Noted Time PHQ-9 Depression Total Score: 4 10/24/2020 8:00 AM DOLL WIG MAKER documented as of this encounter Care Teams Aviation Electronic Warfare Operator Relationship Specialty Start Date End Date Ary Purcell P.A.-C., P.A. PCP - General 06/07/19 01/14/22 documented as of this encounter
--- OUTSIDE RECORDS SUMMARY | 2022-07-06 10:21 | XMS_ITS | Encounter Summary ---
:1995 Author Organization [facility] Address [address] [place] [address] Care Team Providers Name Role Phone Ary Purcell P.A.-C., P.A. Primary Care Provider Unavaila ble Reason for Visit Reason Comments COVID Nurse Line Encounter Details Date Type Department Care Team Description 08/20/2021 Clinical Communication Division of Rossy Almonte Nurse Line [facility], [facility], in [place], [place] [address] [place] [address] Social History Tobacco Use Types Packs/Day Years [...] How often do you attend mormonism or hoahaoism Never 10/23/2020 services? 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 patient*. When screening complete, run the Influenza [...] swabbed for COVID-19 and Influenza, sent to [email or web address] located at [facility] [address]. An appointment is required fortesting, please call [phone] Tuesday-Tuesday 7am to 6pm and Tuesday & [...] frequently with soap and water, use hand jury consultant if soap and water aren't available. -Wear [...] The following references were used: [facility] novel coronavirus (COVID- 19) resources RAISER documented in this encounter Plan of Treatment Not on filedocumented as of this encounter Visit Diagnoses Not on filedocumented in this encounter Additional Health Concerns Infection Onset Date Last Indicated Resolved Time COVID19 Pending 08/20/2021 08/20/2021 08/21/2021 4:30 AM FUND RAISER Assessment Noted Time PHQ-9 Depression Total Score: 11 08/13/2021 8:00 AM CS T documented as of this encounter Care Teams Global Ceo Relationship Specialty Start Date End Date Ary Purcell P.A.Ana., P.A. PCP - General 06/07/19 01/14/22 documented as of this encounter
--- OUTSIDE RECORDS SUMMARY | 2022-07-06 10:21 | XMS_ITS | Encounter Summary ---
:1995 Author Organization [facility] Address [address] [place] [address] Care Team Providers Name Role Phone Teresita Barkley M.D. Primary Care Provider Encounter Details Date Type Department Care Team Description 01/07/2022 Orders Only Department of [facility] Anju Serrano AP RN, Medicine, [place] C.N.P., D .N.P. [facility], in [address] [place] [phone] Social History Tobacco Use Types Packs/Day Years [...] How often do you attend presybeterian or christian Never 10/23/2020 services? 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 PCP - General 01/15/[address] [place] [phone] documented as of this encounter
--- OUTSIDE RECORDS SUMMARY | 2022-07-06 10:22 | XMS_ITS | Encounter Summary ---
:1995 Author Organization [facility] Address [address] [place] [address] Care Team Providers Name Role Phone Ary Purcell P.AGonzalo-C., P.A. Primary Care Provider Unavaila ble Reason for Visit Reason Comments Med Refill Encounter Details Date Type Department Care Team Description 01/11/2020 Refill Department of Orthopedic Ary Purcell, Med Refill Surgery in [place], [place] P.A.-C., P.A. [address] [place] [phone] Social History Tobacco Use Types Packs/Day [...] How often do you attend methodist or methodist Never 10/23/2020 services? 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 PCP - General 06/07/19 01/14/22 documented as of this encounter
--- OUTSIDE RECORDS SUMMARY | 2022-07-06 10:22 | XMS_ITS | Encounter Summary ---
:[address] [facility] Address [address] [place] [address] Care Team Providers Name Role Phone Ayr Purcell P.A.-C., P.A. Primary Care Provider Unavaila ble Reason for Visit Reason Onset Date Comments Outpatient COVID-19 Testing 12/03/2019 Encounter Details Date Type Department Care Team Description 12/03/2019 External Outreach Department of [facility] Betty Garcia Infection Upper Medicine, [place] Jose Armando PGonzaloAGonzalo-Guillermina Respiratory (Primary Clinic, in [place], [address] [place] [address] Dx) [place], [place] [address] [facility] [address] [place], [place] [phone] (Work) [phone] Social History Tobacco Use Types Packs/Day Years [...] at Date Recorded Female 08/12/2017 10:51 AM SHED HAND documented as of this encounter Progress Notes [...] SARS Coronavirus-2, PCR (12/03/2019 10:39 AM CDT) [facility] Method Time Signature SARS Swab, 12/03/2019 [...] and its performa nce characteristics determined by [facility] in a manner co nsistent with CLIA requirements. Independent review by the U.S. Food and Drug Administration is pending. Visit the CDC website: https://www.cdc.gov/coronavirus/ ?? for the most recent guidelines on Toribio virus testing. Fact Sheet for Healthcare Providers: (https://www.Get Satisfaction/it-mmfil es/ Provider_Fact_Sheet_for_[facility]_COVI D-19.pdf) Fact Sheet for Patients: (https://www.Get Satisfaction/it-mmfil es/ Patient_Fact_Sheet_for_COVID-19.pdf) Specimen Anatomical Collection Method Collection Time Receive d Time (Source) Location / / Volume Laterality Varies 12/03/2019 10:39 12/03/2019 (Nasopharynx) AM CDT 12:52 PM CDT Emmanuel Garcia P.A.-C. LAB MICROBIOLOGY - GENERAL O AUGUSTERABLES Performing Organization Address City/State/RUST Code Phon e Number [facility] [place], [place] [address] [facility] [place] [address] [facility] [address] [facility] documented in this encounter Visit Diagnoses Diagnosis Infection Upper Respiratory - Primary documented in this encounter Additional Health Concerns Infection Onset Date Last Indicated Resolved Time COVID19 Pending 12/03/2019 12/03/2019 12/03/2019 8:49 PM CDT Assessment Noted Time PHQ-9 Depression Total Score: 10 11/08/2018 12:47 PM C DT documented as of this encounter Care Teams Hospitality Coordinator Relationship Specialty Start Date End Date Ary Purcell P.A.-C., P.A. PCP - General 06/07/19 01/14/22 documented as of this encounter
--- OUTSIDE RECORDS SUMMARY | 2022-07-06 10:22 | XMS_ITS | Encounter Summary ---
:1995 Author Organization [facility] Address [address] [place] [address] Care Team Providers Name Role Phone Ary Purcell P.A.-C., P.A. Primary Care Provider Unavaila ble Reason for Visit Reason Comments Med Refill Aerospan Encounter Details Date Type Department Care Team Description 09/09/2020 Clinical Communication Department of Ary Purcell Med Refill Family Medicine, [place], P.A.-CGonzalo, (Aerospan) [facility], in [address] [phone] Social History Tobacco Use Types Packs/Day Years [...] How often do you attend hoahaoism or denominational Never 10/23/2020 services? Do you [...] or the highest technical, or vocational p [facility] degree you have received? 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 - 09/09/2020 10:52 AM NASCAR DRIVER Attempted to contact patient, to verify which pharmacy she would like her prescriptions at, no answer, voice message left for patient to contact the clinic. AR DRIVER Telephone Encounter - Ary Purcell, P.A. - 09/09/2020 10:37 AM CST Sent new script to [facility]. Ary Marvin AR DRIVER Telephone Encounter - Kaela Nino L.PGonzaloN. - 09/09/2020 10:32 AM NASCAR DRIVER Appears to have been discontinued at visit today, notes not yet available, please advise. AR DRIVER Telephone Encounter - Chloe Leahy - 09/09/2020 9:59 AM CST Reason for Communication: Family Alicia FAULKNER called on RX for Carly Current Can Nursing/Provider leave a detailed message?: Y Did the patient refuse triage through Nurse line? (for symptom based concerns):N Action Needed: Call Family Vargas Name of Medication (if relevant): Aerospan AR DRIVER documented in this encounter Plan of Treatment Not on filedocumented as of this encounter Visit Diagnoses Not on filedocumented in this encounter Additional Health Concerns Assessment Noted Time PHQ-9 Depression Total Score: 10 11/08/2018 12:47 PM C DT documented as of this encounter Care Teams Medical Accountant Relationship Specialty Start Date End Date Ary Purcell P.A.-C., P.A. PCP - General 06/07/19 01/14/22 documented as of this encounter
--- OUTSIDE RECORDS SUMMARY | 2022-07-06 10:22 | XMS_ITS | Encounter Summary ---
:1995 Author Organization [facility] Address [address] [place] [address] Care Team Providers Name Role Phone Ary Purcell P.A.-C., P.A. Primary Care Provider Ailin diaz Encounter Details Date Type Department Care Team Description 05/20/2020 Orders Only [facility] Pharm[facility] - Ary [place], [address] [facility] [place] [address] P.A.-[place] [address] Social History Tobacco Use Types [...] How often do you attend pentecostalism or mu-ism Never 10/23/2020 services? 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 PCP - General 06/07/19 01/14/22 documented as of this encounter
--- OUTSIDE RECORDS SUMMARY | 2022-07-06 10:22 | XMS_ITS | Encounter Summary ---
:1995 Author Organization [facility] Address [address] [place] [address] Care Team Providers Name Role Phone Ary Purcell P.A.-C., P.A. Primary Care Provider Unavaila ble Reason for Visit Reason Comments Post Ed Visit Follow-up ED visit last night. Still h aving troubles breathing. Outpatient (Routine) - Closed Specialty Diagnoses / Procedures Referred By Contact Refer red To Contact Emergency Medicine Diagnoses Asthma Extrinsic With Acute Exacerbation (HCC) [facility] [address] [place] [phone] Referral ID Status Reason Start Date Expiration Date Visits Requ ested Visits Authorized [id number] Closed 09/08/2020 09/08/2021 1 1 Encounter Details Date Type Department Care Team Description 09/09/2020 Office Visit Department of Family Ary Purcell Ast hma Extrinsic With Acute Exacerbation (HCC) (Primary Dx); [facility], [place] [facility] [address] [phone] Social History Tobacco Use Types [...] How often do you attend spiritism or rastafarian Never 10/23/2020 services? 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 Total time: 22 minutes Ranjana Alexandra VERER FOOD documented in this encounter Plan of Treatment Not on filedocumented as of this encounter Procedures Procedure Name Priority Date/Time Associated Diagnosis Comme nts D-DIMER, P Routine 09/09/2020 10:38 AM Dyspnea Results for this DELIVERER FOOD procedure are i n the results section . documented in this encounter Results D-Dimer (09/09/2020 10:38 AM DELIVERER FOOD) P athologist Signature D-Dimer, P <220 <=500 ng/mL 09/09/2020 CNFL FEU 11:18 AM DELIVERER FOOD Comment: ----ADDITIONAL INFORMATION---- D-dimer values less than or equal to 500 ng/mL fibrinogen equivalent units (FEU) may be used in co njunction with clinical pre-test probability to exclude deep vein thrombosis (DVT) and/or pulmonary emboli sm (PE). Specimen Anatomical Collection Method Collection Time Receive d Time (Source) Location / / Volume Laterality Blood (Blood, 09/09/2020 10:38 09/09/2020 Venous) AM DELIVERER FOOD 10:44 AM DELIVERER FOOD Ary Purcell P.A.-C., P.A. LAB BLOOD ADD-ON Performing Organization Address City/State/[facility] Code Phon e Number [id number] [place] [address] [place] [address] System [address] documented in this encounter Visit Diagnoses Diagnosis Asthma Extrinsic With Acute Exacerbation (HCC) - Primary Dyspnea documented in this encounter Additional Health Concerns Assessment Noted Time PHQ-9 Depression Total Score: 10 11/08/2018 12:47 PM C DT documented as of this encounter Care Teams Cold Rolling Coordinator Relationship Specialty Start Date End Date Ary Purcell P.A.-C., P.A. PCP - General 06/07/19 01/14/22 documented as of this encounter
--- OUTSIDE RECORDS SUMMARY | 2022-07-06 10:22 | XMS_ITS | Encounter Summary ---
:1995 Author Organization [facility] Address [address] [place] [address] Care Team Providers Name Role Phone Ary Purcell P.A.-C., P.A. Primary Care Provider Unavaila ble Reason for Visit Reason Comments COVID Nurse Line Encounter Details Date Type Department Care Team Description 12/03/2019 Clinical Communication Central Appointment Line, Covid COVID Nurse Line Office in Health System [address] [place], [place] [phone] Social History Tobacco Use Types Packs/Day Years [...] How often do you attend spiritism or yazidi Never 10/23/2020 services? 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 If soap and water aren't available, use a hand offset pressman that contains at least 60% alcohol. Avoid [...] essential items or medical care). Educational Resource: https://www.cdc.gov/coronavirus/2019-ncov/svxvtiy-mmpxiby-wqas/index.html Recommendations as testing criteria is met: Stay [...] or 65 years and older. Go to [facility] emergency department if any of the following occur: 1) New shortness of breath at rest, 2) Pain, pressure or tightness unrelated to coughing in the chest, jaw or arm, 3) Newly confused or unable to stay alert and awake. Notify primary care provider if any new or worsening symptoms. Education Resources: https://www.cdc.gov/coronavirus/2019-ncov/od-jkj-tae-sick/veguw-rdyn-xsfb.html Education: patient/caregiver Patient/caregiver able to teach back Patient agreeable to plan of care: Yes The following references were used: [facility] Nursing judgement documented in this encounter Plan of Treatment Not on filedocumented as of this encounter Visit Diagnoses Not on filedocumented in this encounter Additional Health Concerns Assessment Noted Time PHQ-9 Depression Total Score: 10 11/08/2018 12:47 PM C DT documented as of this encounter Care Teams Lead Technician Relationship Specialty Start Date End Date Ary Purcell P.A.-C., P.A. PCP - General 06/07/19 01/14/22 documented as of this encounter
--- OUTSIDE RECORDS SUMMARY | 2022-07-06 10:22 | XMS_ITS | Encounter Summary ---
:1995 Author Organization [facility] Address [address] [place] [address] Care Team Providers Name Role Phone Ary Purcell P.A.-C., P.A. Primary Care Provider Unavaila ble Reason for Visit Reason Comments Shortness of Breath having to use neb treatments , low grade temp Appointment Request (Routine) - Closed Specialty Diagnoses / Procedures Referred By Contact Refer red To Contact Family Medicine Referral ID Status Reason Start Date Expiration Date Visits Requ ested Visits Authorized [id number] Closed 12/04/2019 12/03/2020 1 1 Encounter Details Date Type Department Care Team Description 12/04/2019 Telemedicine Department of [facility] Ary Purcell, Sin usitis (Primary Dx); Medicine, [place] ManaAGoznalo-Mitchell., P.A. Infe ction Upper Respiratory; Clinic, in [place] Asthma Exa cerbation ([address] [phone] Social History Tobacco Use Types Packs/Day Years [...] How often do you attend congregational or confucianism Never 10/23/2020 services? 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 - 12/04/2019 1:30 PM CDT SUBJECTIVE CHIEF COMPLAINT/REASON FOR VISIT Carly Bob ZEB Joseph is a 24 y.o. female who presents for evaluation of Shortness of Breath (having to use neb treatments, low grade temp). Consult conducted via real-time audio/video technology by Ary Purcell P.A.-C. in [facility] [place] to the patient's home. HISTORY OF PRESENT ILLNESS Carly is a very pleasant 24-year-old female who presents for a video visit for evaluation of upper respiratory infection. She was swabbed for coronavirus yesterday and found to be negative. 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 She states her symptoms 1st started a [...] documented as of this encounter Care Teams Unix Engineer Relationship Specialty Start Date End Date Ary Purcell P.A.-C., P.A. PCP - General 06/07/19 01/14/22 documented as of this encounter
--- OUTSIDE RECORDS SUMMARY | 2022-07-06 10:22 | XMS_ITS | Encounter Summary ---
:1995 Author Organization [facility] Address [address] [place] [address] Care Team Providers Name Role Phone Teresita Barkley M.D. Primary Care Provider Encounter Details Date Type Department Care Team Description 09/09/2020 Orders Only Department of Family Ary Purcell, Medicine, [place] P.A.-C., P.A. Clinic, in [address] [phone] Social History Tobacco Use [...] How often do you attend hinduism or amish Never 10/23/2020 services? 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 PCP - General 01/15/[address] [place] [phone] documented as of this encounter
--- OUTSIDE RECORDS SUMMARY | 2022-07-06 10:22 | XMS_ITS | Encounter Summary ---
:1995 Author Organization [facility] Address [address] [place] [address] Care Team Providers Name Role Phone Ary Purcell P.A.-C., P.A. Primary Care Provider Ailin diaz Encounter Details Date Type Department Care Team Description 06/27/2020 Orders Only Department of [facility] Ary Purcell, Medicine, [place] [facility]ilC., P.A. Clinic, in [address] [phone] Social History Tobacco Use [...] How often do you attend amish or hinduism Never 10/23/2020 services? 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 PCP - General 06/07/19 01/14/22 documented as of this encounter
--- OUTSIDE RECORDS SUMMARY | 2022-07-06 10:22 | XMS_ITS | Encounter Summary ---
:1995 Author Organization [facility] Address [address] [place] [address] Care Team Providers Name Role Phone Ary Purcell P.A.-C., P.A. Primary Care Provider Unavaila ble Reason for Referral Outpatient (Routine) - Closed Specialty Diagnoses / Procedures Referred By Contact Refer red To Contact Family Medicine Ary Purcell P.A.-C., [facility] [address] [place] [address] Referral ID Status Reason Start Date Expiration Date Visits Requ ested Visits Authorized [id number] Closed 10/24/2020 10/24/2021 1 1 Scheduling Instructions Physical, come fasting if no labs ordere d RADIANT ANALYST Reason for Visit Reason Comments Gynecologic Exam Has a spot on her labia that she noticed 2 days ago. Appointment Request (Routine) - Closed Specialty Diagnoses / Procedures Referred By Contact Refer red To Contact Family Medicine Referral ID Status Reason Start Date Expiration Date Visits Requ ested Visits Authorized [id number] Closed 10/22/2020 10/22/2021 1 1 Encounter Details Date Type Department Care Team Description 10/24/2020 Office Visit Department of Ary Salazar Ast hma Moderate Persistent (HCC) (Primary Dx); [facility], BarneveldBirgit Rios, P.A. Pap Smear Examination; Clinic, in [place] Depression Major One Episode Full Remission (HCC); [place], [place] Anxiety; [id number] Body Mass Index 40.0 To 44.9 Adult ([facility] [id number] Social History [...] How often do you attend caodaism or mu-ism Never 10/23/2020 services? 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 documented as of this encounter Last Filed Vital Signs Vital Sign Reading Time Taken Comments Blood Pressure 127/70 10/24/2020 8:34 AM EPIC RADIANT ANALYST Pulse 82 10/24/2020 8:34 AM EPIC RADIANT ANALYST Temperature 36.8 ??C (98.2 ??F) 10/24/2020 8:34 AM EPIC RADIANT ANALYST Respiratory Rate 18 10/24/2020 8:34 AM EPIC RADIANT ANALYST Oxygen Saturation 99% 10/24/2020 8:34 AM EPIC RADIANT ANALYST Inhaled Oxygen Concentration - - Weight 119 kg (261 lb 11 oz) 10/24/2020 8:34 AM EPIC RADIANT ANALYST Height 167.5 cm (5' 5.95) 10/24/2020 8:34 AM EPIC RADIANT ANALYST Body Mass Index 42.31 10/24/2020 8:34 AM EPIC RADIANT ANALYST documented in this encounter Patient Instructions Patient InstructionsAry Purcell P.A. - 10/24/2020 8:30 AM CST Continue current medications Pap results in 7-10 days RADIANT ANALYST documented in this encounter H&P Notes Ary [...] FIXATION ANKLE; Surgeon: Bruno Spivey M.D.; Location: [facility] OR ??? TONSILLECTOMY 2000 Partial [...] The adnexa show no masses or tenderness. Rope Tier declined. Pap obtained today. Left labia minora [...] content. Total time: 28 minutes Ranjana Alexandra RADIANT ANALYST documented in this encounter Plan of Treatment Scheduled Referrals Name Type Priority Associated Diagnoses Order S [facility] Outpatient Referral Routine Expec jay jay: office visit 10/24/2021 (clinic) (Approximate), Expires: 10/25/2023 documented as of this encounter Procedures Procedure Name Priority Date/Time Associated Diagnosis Comme nts THINPREP SCREEN HPV Routine 10/24/2020 8:44 AM Pap Smear Re sults for this REFLEX EPIC RADIANT ANALYST Examination procedure are i n the results section. documented in this encounter Results ThinPrep Screen HPV Reflex (10/24/2020 8:44 AM EPIC RADIANT ANALYST) Component Value Ref Test Analysis Performed Pathologis [...] Laterality Varies 10/24/2020 8:44 AM 3:56 (Cervix/Endocerv EPIC RADIANT ANALYST PM EPIC RADIANT ANALYST ix) Narrative This result has an attachment that is no t available. Ary Purcell P.A.-C., P.A. LAB PAP PATHDX ORDERABLES Performing Organization Address City/State/ZIP Code Phon e Number [facility]- [address] [place] [address] [phone] [facility] [place] [address] System [address] documented in this encounter Visit Diagnoses Diagnosis Asthma Moderate Persistent (HCC) - Prima ry Pap Smear Examination Depression Major One Episode Full Remiss ion (HCC) Anxiety Body Mass Index 40.0 To 44.9 Adult (HCC) documented in this encounter Additional Health Concerns Assessment Noted Time PHQ-9 Depression Total Score: 4 10/24/2020 8:00 AM EPIC RADIANT ANALYST documented as of this encounter Care Teams Industrial Chemist Relationship Specialty Start Date End Date Ary Purcell P.A.-C., P.A. PCP - General 06/07/19 01/14/22 documented as of this encounter
--- OUTSIDE RECORDS SUMMARY | 2022-07-06 10:22 | XMS_ITS | Encounter Summary ---
:1995 Author Organization [facility] Address [address] [place] [address] Care Team Providers Name Role Phone Ary [...] Team Description 08/21/2020 Office Visit Department of [facility] Ary Purcell, Per gustavo History Of Infectious And Parasitic Disease (COVID-19) (Primary Dx); Medicine, [place] P.A.-C., P.A. Asth ma Mild Intermittent (HCC); Clinic, in [place] Asthma Exa cerbation ([facility]) [address] [phone] Social History Tobacco Use Types Packs/Day Years [...] How often do you attend advent or hindu Never 10/23/2020 services? 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 - 08/21/2020 11:30 AM CST May use OTC antihistamine (Zyrtec or Claritin) or similar for the next few days. May use OTC Flonase twice per day to help with nasal congestion and postnasal drip. Cold/cough remedies also available OTC - DayQuil/NyQuil, Mucinex, [place] Cold/Flu, Robitussin DM, cough/throat lozenges, honey. May use OTC analgesics such as Tylenol/ibuprofen for low grade fevers and body aches. Increase fluid intake. Get plenty of rest. Cover your cough. Wash hands frequently. Prednisone 2 tabs (40mg) daily for 5 days - take with food EDITOR documented in this encounter Progress Notes Ary [...] remedies also available OTC - DayQuil/NyQuil, Mucinex, [place] Cold/Flu, Robitussin DM, cough/throat lozenges, honey. May [...] expressed understanding of the content. Ranjana Alexandra EDITOR documented in this encounter Plan of Treatment Not on filedocumented as of this encounter Visit Diagnoses Diagnosis Personal History Of Infectious And Bashir itic Disease (COVID-19) - Primary Asthma Mild Intermittent (HCC) Asthma Exacerbation (HCC) documented in this encounter Additional Health Concerns Assessment Noted Time PHQ-9 Depression Total Score: 10 11/08/2018 12:47 PM C DT documented as of this encounter Care Teams Yarding Supervisor Relationship Specialty Start Date End Date Ary Purcell P.A.-Guillermina, P.A. PCP - General 06/07/19 01/14/22 documented as of this encounter
--- OUTSIDE RECORDS SUMMARY | 2022-07-06 10:22 | XMS_ITS | Encounter Summary ---
:1995 Author Organization [facility] Address [address] [place] [address] Care Team Providers Name Role Phone Ary Purcell P.A.-C., P.A. Primary Care Provider Unavaila ble Reason for Visit Reason Comments COVID Inquiry Encounter Details Date Type Department Care Team Description 09/09/2020 Clinical Communication Department of [facility] Vani Purcell Inquiry Medicine, [place] Ranjana Heller-Guillermina, Clinic, in [address] [phone] Social History Tobacco Use Types [...] How often do you attend taoist or orthodox Never 10/23/2020 services? 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 SHOE DANCER documented in this encounter Plan of Treatment Not on filedocumented as of this encounter Visit Diagnoses Not on filedocumented in this encounter Additional Health Concerns Assessment Noted Time PHQ-9 Depression Total Score: 10 11/08/2018 12:47 PM C DT documented as of this encounter Care Teams Quality Assurance Auditor Relationship Specialty Start Date End Date Ary Purcell P.A.-C., P.A. PCP - General 06/07/19 01/14/22 documented as of this encounter
--- OUTSIDE RECORDS SUMMARY | 2022-07-06 10:22 | XMS_ITS | Encounter Summary ---
:1995 Author Organization [facility] Address [address] [place] [address] Care Team Providers Name Role Phone Ary Purcell P.A.-C., P.A. Primary Care Provider Unavaila ble Reason for Visit Reason Comments Med Refill Encounter Details Date Type Department Care Team Description 03/19/2020 Refill Department of Obstetrics and [facility], [facility] ndanabela, COMBUSTION ANALYST, Med Refill Gynecology in [facility] ELOY, M.S .N., B.S.N., R.N. [phone] [place] [phone] Social History Tobacco Use Types Packs/Day Years [...] How often do you attend yazidi or scientologist Never 10/23/2020 services? 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 PCP - General 06/07/19 01/14/22 documented as of this encounter
--- OUTSIDE RECORDS SUMMARY | 2022-07-06 10:22 | XMS_ITS | Encounter Summary ---
:1995 Author Organization [facility] Address [address] [place] [address] Care Team Providers Name Role Phone Ary [...] How often do you attend mandaeism or moravian Never 10/23/2020 services? 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 PCP - General 06/07/19 01/14/22 documented as of this encounter
--- OUTSIDE RECORDS SUMMARY | 2022-07-06 10:22 | XMS_ITS | Encounter Summary ---
:1995 Author Organization [facility] Address [address] [place] [address] Care Team Providers Name Role Phone Ary Purcell P.A.-C. P.AGonzalo Primary Care Provider Ailin diaz Encounter Details Date Type Department Care Team Description 04/17/2020 E-Visit [facility] at [place], Polina sa, ANESTHESIOLOGIST AND CRITICAL CARE, RE: Cold sores the [facility] on the [address]th [address] .[address] Floor [address] [facility] [address] [place] [phone] (Wo rk) Social History Tobacco Use Types [...] How often do you attend hindu or jehovah's witness Never 10/23/2020 services? 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 PCP - General 06/07/19 01/14/22 documented as of this encounter
--- OUTSIDE RECORDS SUMMARY | 2022-07-06 10:22 | XMS_ITS | Encounter Summary ---
:1995 Author Organization [facility] Address [address] [place] [address] Care Team Providers Name Role Phone Ary Purcell P.A.-C. P.A. Primary Care Provider Ailin diaz Encounter Details Date Type Department Care Team Description 06/04/2020 Orders Only [facility] - Mason Ansari, She Yeng Phia [address] [facility] [address] [place] [phone] [...] How often do you attend protestant or congregational Never 10/23/2020 services? 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 PCP - General 06/07/19 01/14/22 documented as of this encounter
--- OUTSIDE RECORDS SUMMARY | 2022-07-06 10:22 | XMS_ITS | Encounter Summary ---
:1995 Author Organization [facility] Address [address] [place] [address] Care Team Providers Name Role Phone Ary [...] Expiration Date Visits Requ ested Visits Authorized [id number] Closed 05/28/2020 05/28/2021 1 1 Encounter Details Date Type Department Care Team Description 05/28/2020 Office Visit Department of Family Ary Purcell Der matitis Perioral Medicine, [place] Moses., P.A. (Deirdre Gomez) Clinic, in [address] [phone] Social History Tobacco Use Types Packs/Day Years [...] How often do you attend restoration or protestant Never 10/23/2020 services? 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 Shewas diagnosed at a [facility] with impetigo a few months ago. She has been using her topical Bactroban which did initially helped but she is having ongoing skin lesions that are pruritic. 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 PCP - General 06/07/19 01/14/22 documented as of this encounter
--- OUTSIDE RECORDS SUMMARY | 2022-07-06 10:22 | XMS_ITS | Encounter Summary ---
:1995 Author Organization [facility] Address [address] [place] [address] Care Team Providers Name Role Phone Ary Purcell P.A.-C., P.A. Primary Care Provider Unavaila ble Reason for Referral Outpatient (Routine) - Closed Specialty Diagnoses / Procedures Referred By Contact Refer red To Contact Emergency Medicine Diagnoses Asthma Extrinsic With Acute Exacerbation (HCC) Robe Payne [facility] MERNA Jang III, M.D. [address] [phone] Referral ID Status Reason Start Date Expiration Date Visits Requ ested Visits Authorized [id number] Closed 09/08/2020 09/08/2021 1 1 BENCH OPERATOR HELPER Reason for Visit Reason Comments Shortness of [...] Emergency Department Sherman PUENTE M.D. Acute Exacerbation [id number] (HCC) (Primary Dx) [place] [phone] (Wo rk) Social History Tobacco Use [...] How often do you attend catholic or hoahaoism Never 10/23/2020 services? 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 documented as of this encounter Last Filed Vital Signs Vital Sign Reading Time Taken Comments Blood Pressure 123/66 09/08/2020 6:15 PM DRAWBENCH OPERATOR HELPER Pulse 89 09/08/2020 6:15 PM DRAWBENCH OPERATOR HELPER Temperature 35.9 ??C (96.6 ??F) 09/08/2020 4:38 PM DRAWBENCH OPERATOR HELPER Respiratory Rate 20 09/08/2020 4:38 PM DRAWBENCH OPERATOR HELPER Oxygen Saturation 99% 09/08/2020 6:15 PM DRAWBENCH OPERATOR HELPER Inhaled Oxygen Concentration - - Weight 118 kg (260 lb 2.3 oz) 09/08/2020 4:34 PM DRAWBENCH OPERATOR HELPER Height - - Body Mass Index 41.99 02/20/2019 1:57 PM CDT documented in this encounter Discharge Instructions AttachmentsThe following attachments cannot be sent through Care Everywhere. Asthma Attack (Swiss)How to Use a Nebulizer Adult (Swiss)Metered Dose Inhaler (No Spacer Used) (Swiss)documented in this encounter Medications at Time of [...] Exacerbation (HCC) Robe Payne III, M.D. 09/08/201843 BENCH OPERATOR HELPER documented in this encounter Plan of Treatment Scheduled Referrals Name Type Priority Associated Diagnoses Order S chedule POST ED VISIT Outpatient Referral Routine Asthma Extrinsic Wit h Expected: Family Medicine Acute Exacerbation 2020 (HCC) (Approximate), Expires: 09/08/2023 documented as of this encounter Procedures Procedure Name Priority Date/Time Associated Comments Diagnosis CBC WITH STAT 09/08/2020 5:03 Results for DIFFERENTIAL, B PM DRAWBENCH OPERATOR HELPER this procedu re are in the results section. COMPREHENSIVE STAT 09/08/2020 5:03 Results for METABOLIC PANEL, S/P PM DRAWBENCH OPERATOR HELPER this pr ocedure are in the results section. DX CHEST AP OR PA RAD - Semiurgent 09/08/2020 4:57 Res ults for AND LATERAL 2 VIEWS (Fast; most ED PM DRAWBENCH OPERATOR HELPER this p rocedure patients; some are in the inpatients) results section. documented in this encounter Results (ABNORMAL) Comprehensive Metabolic Panel (09/08/2020 5:03 PM DRAWBENCH OPERATOR HELPER) P athologist Signature Potassium, P 3.9 3.6 - 5.2 09/08/2020 [facility] mmol/L 5:43 PM DRAWBENCH OPERATOR HELPER Sodium, P 139 135 - 145 09/08/2020 [facility] mmol/L 5:43 PM DRAWBENCH OPERATOR HELPER Chloride, P 104 98 - 107 09/08/2020 [facility] mmol/L 5:43 PM DRAWBENCH OPERATOR HELPER Bicarbonate, P 23 22 - 29 09/08/2020 [facility] mmol/L 5:43 PM DRAWBENCH OPERATOR HELPER Anion Gap, P 12 7 - 15 09/08/2020 [facility] 5:43 PM DRAWBENCH OPERATOR HELPER BUN (Blood Urea 12 6 - 21 09/08/2020 [facility] Nitrogen), P mg/dL 5:43 PM DRAWBENCH OPERATOR HELPER Creatinine 0.77 0.59 - 09/08/2020 [facility] 1.04 mg/dL 5:43 PM DRAWBENCH OPERATOR HELPER eGFR-Black/Afric >90 >=60 09/08/2020 CNFL an Singaporean mL/min/BSA 5:43 PM DRAWBENCH OPERATOR HELPER Comment: ----ADDITIONAL INFORMATION---- Estimated GFR calculated using the 2009 CKD_EPI creatinine equation. eGFR Non-Black/ >90 >=60 mL/min/BSA 09/08/2020 5:43 PM DRAWBENCH OPERATOR HELPER CNFL Comment: ----ADDITIONAL INFORMATION---- Estimated GFR calculated using the 2009 CKD_EPI creatinine equation. Calcium, Total, P 9.6 8.6 - 10.0 mg/dL 09/08/2020 5:43 PM DRAWBENCH OPERATOR HELPER CNFL Glucose, P 101 70 - 140 mg/dL 09/08/2020 5:43 PM DRAWBENCH OPERATOR HELPER C NFL Protein, Total, P 6.8 6.3 - 7.9 g/dL 09/08/2020 5:43 P M DRAWBENCH OPERATOR HELPER [facility]FL Albumin, P 4.0 3.5 - 5.0 g/dL 09/08/2020 5:43 PM DRAWBENCH OPERATOR HELPER C NFL Aspartate Aminotransferase 34 8 - 43 U/L 09/08/2020 5 :43 PM DRAWBENCH OPERATOR HELPER CNFL (AST), P Alkaline Phosphatase, P 103 35 - 104 U/L 09/08/2020 5: 43 PM DRAWBENCH OPERATOR HELPER CNFL Alanine Aminotransferase 63 (H) 7 - 45 U/L 09/08/2020 5:4 3 PM DRAWBENCH OPERATOR HELPER CNFL (ALT), P Bilirubin, Total, P 0.3 <=1.2 mg/dL 09/08/2020 5:43 PM DRAWBENCH OPERATOR HELPER CNFL Specimen Anatomical Collection Method Collection Time Receive d Time (Source) Location / / Volume Laterality Blood (Blood, 09/08/2020 5:03 PM 09/08/19 5:05 Venous) DRAWBENCH OPERATOR HELPER PM DRAWBENCH OPERATOR HELPER Robe Payne III, M.D. LAB BLOOD ADD-ON Performing Organization Address City/State/ZIP Code Phon e Number [facility]- [address] [place] [phone] [place] [address] [address] CBC with Differential, Blood (09/08/2020 5:03 PM DRAWBENCH OPERATOR HELPER) P athologist Signature Hemoglobin 13.8 11.6 - 09/08/2020 CN[facility] 15.0 g/dL 5:08 PM DRAWBENCH OPERATOR HELPER Hematocrit 40.5 35.5 - 09/08/2020 [facility] 44.9 % 5:08 PM DRAWBENCH OPERATOR HELPER Erythrocytes 4.39 3.92 - 09/08/2020 CN[facility] 5.13 5:08 PM DRAWBENCH OPERATOR HELPER x10(12)/L MCV 92.3 78.2 - 09/08/2020 [facility] 97.9 fL 5:08 PM DRAWBENCH OPERATOR HELPER RBC Distrib Width 12.7 12.2 - 09/08/2020 [facility] 16.1 % 5:08 PM DRAWBENCH OPERATOR HELPER Platelet Count 233 157 - 371 09/08/2020 [facility] x10(9)/L 5:08 PM DRAWBENCH OPERATOR HELPER Leukocytes 9.2 3.4 - 9.6 09/08/2020 CNFL x10(9)/L 5:08 PM DRAWBENCH OPERATOR HELPER Neutrophils 6.26 1.56 - 09/08/2020 CNFL 6.45 5:08 PM DRAWBENCH OPERATOR HELPER x10(9)/L Lymphocytes 2.03 0.95 - 09/08/2020 CNFL 3.07 5:08 PM DRAWBENCH OPERATOR HELPER x10(9)/L Monocytes 0.48 0.26 - 09/08/2020 CNFL 0.81 5:08 PM DRAWBENCH OPERATOR HELPER x10(9)/L Eosinophils 0.36 0.03 - 09/08/2020 CNFL 0.48 5:08 PM DRAWBENCH OPERATOR HELPER x10(9)/L Basophils 0.03 0.01 - 09/08/2020 CNFL 0.08 5:08 PM DRAWBENCH OPERATOR HELPER x10(9)/L Specimen Anatomical Collection Method Collection Time Receive d Time (Source) Location / / Volume Laterality Blood (Blood, 09/08/2020 5:03 PM 09/08/19 5:05 Venous) DRAWBENCH OPERATOR HELPER PM DRAWBENCH OPERATOR HELPER Robe Payne III, M.D. LAB BLOOD ADD-ON Performing Organization Address City/State/ZIP Code Phon e Number [facility]- [address] [place] [phone] [place] [address] System [address] DX Chest AP or PA and Lateral 2 Views (09/08/2020 4:57 PM DRAWBENCH OPERATOR HELPER) Anatomical Region Laterality Modality Chest, Thoracic RST LOS, Thoracic ARZ LOS, Thoracic N/A Digital Radiography FLA LOS Specimen (Source) Anatomical Collection Method Collection Time Re ceived Time Location / / Volume Laterality 09/08/2020 4:59 PM DRAWBENCH OPERATOR HELPER Impressions 09/08/2020 5:00 PM DRAWBENCH OPERATOR HELPER No focal consolidation or pleural effusion. No pneumothorax. Normal heart size. October 20, 2015 comparison. Narrative 09/08/2020 5:00 PM DRAWBENCH OPERATOR HELPER EXAM: DX CHEST AP OR PA AND [...] nebulizer solution 2.5 Given 09/08/2020 5:57 PM DRAWBENCH OPERATOR HELPER 2. 5 mg mg (ACCUNEB) 2.5 mg, nebulization, Once, On Tue09/08/20 at 1750, For 1 dose dexAMETHasone injection 10 mg (DECADRON) Given 09/08/2020 5:57 PM DRAWBENCH OPERATOR HELPER 10 mg 10 mg, intravenous, Once, On Tue09/08/20 at 1751, For 1 dose ipratropium-albuteroL 0.5-2.5 mg/3 mL nebulizer Given 09/08/2020 5:05 PM DRAWBENCH OPERATOR HELPER 3 mL solution 3 mL (DUONEB) 3 [...] Recently Administered Medications Times are shown in DRAWBENCH OPERATOR HELPER. Scheduled Medication Order 09/06/2020 09/07/2020 09/08/2020 albuterol [...] documented as of this encounter Care Teams Reactor Fueling Supervisor Relationship Specialty Start Date End Date Ary Purcell P.A.-C., P.A. PCP - General 06/07/19 01/14/22 documented as of this encounter
--- OUTSIDE RECORDS SUMMARY | 2022-07-06 10:22 | XMS_ITS | Encounter Summary ---
:1995 Author Organization [facility] Address [address] [place] [address] Care Team Providers Name Role Phone Ary Purcell P.A.-C., P.A. Primary Care Provider Unavaila ble Reason for Visit Reason Comments Rx Prior Authorization DENIAL OF QVAR Encounter Details Date Type Department Care Team Description 06/04/2020 Clinical Communication Department of Olya Purcell Family MedicineAry, Authorizati on (DENIAL Linwood Gabriel, OF QVAR) Clinic, in [address] [phone] Social History Tobacco Use Types Packs/Day Years [...] How often do you attend mormon or bahai Never 10/23/2020 services? 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 PCP - General 06/07/19 01/14/22 documented as of this encounter
--- OUTSIDE RECORDS SUMMARY | 2022-07-06 10:22 | XMS_ITS | Encounter Summary ---
:1995 Author Organization [facility] Address [address] [place] [address] Care Team Providers Name Role Phone Ary Purcell P.A.-C., P.A. Primary Care Provider Unavaila ble Reason for Visit Reason Comments COVID Inquiry Encounter Details Date Type Department Care Team Description 05/28/2020 Clinical Communication Department of Vani Salazar Inquiry Medicine, [place] Pina PGonzaloAGonzalo-Guillermina, Clinic, in [address] [phone] Social History Tobacco Use Types Packs/Day Years [...] How often do you attend catholic or restorationist Never 10/23/2020 services? 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 PCP - General 06/07/19 01/14/22 documented as of this encounter
--- OUTSIDE RECORDS SUMMARY | 2022-07-06 10:22 | XMS_ITS | Encounter Summary ---
:1995 Author Organization [facility] Address [address] [place] [address] Care Team Providers Name Role Phone Ary Purcell P.A.-C., P.A. Primary Care Provider Ailin diaz Encounter Details Date Type Department Care Team Description 06/17/2020 Orders Only [facility] - Ary Hamilton, [address] [facility] 1 P.A.-C., [place] [address] Social History Tobacco Use Types [...] How often do you attend rastafarian or taoism Never 10/23/2020 services? Do you [...] the highest level of school Associate degree: clfiton costa, 03/01/2019 you have completed or the highest technical, or vocational margo buenrostro degree you have received? 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 PCP - General 06/07/19 01/14/22 documented as of this encounter
--- OUTSIDE RECORDS SUMMARY | 2022-07-06 10:23 | XMS_ITS | Encounter Summary ---
:1995 Author Organization [facility] Address [address] [place] [address] Care Team Providers Name Role Phone Chandni Urbina APRN, C.N.P., D.N.P. Primary Care Provider Encounter Details Date Type Department Care Team Description 03/19/2019 Orders Only Department of Orthopedic Chandni Urbina APRN, Surgery in [place], C.N.P., D.N .P. [address] [address] [place] [address] [phone] Social History Tobacco Use Types Packs/Day Years [...] How often do you attend temple or christian Never 10/23/2020 services? 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 [address] [place] [phone] documented as of this encounter
--- OUTSIDE RECORDS SUMMARY | 2022-07-06 10:23 | XMS_ITS | Encounter Summary ---
:1995 Author Organization [facility] Address [address] [place] [address] Care Team Providers Name Role Phone Chandni Urbina APRN, C.N.Mana, D.N.P. Primary Care Provider Reason for Visit Reason Onset Date Comments Fax number 05/08/2019 Encounter Details Date Type Department Care Team Description 05/08/2019 Clinical Communication Department of Edwige Lundberg F ax number Orthopedic Surgery in [place] C.N.Mana, [place], D.N.P. [address] [phone] Social History Tobacco Use Types Packs/Day Years [...] How often do you attend rastafarian or hindu Never 10/23/2020 services? 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 Telephone Encounter - Carmencita aJin L.P.N. - 05/08/2019 9:00 AM CDT What needs to be faxed? The patient has not been seen since 04/27/19 Telephone Encounter - Mayra Zavaleta - 05/08/2019 8:07 AM CDT Reason for Communication: Sary say the fax number for [facility]. Attn Kaya Meng Current Can Nursing/Provider [...] as of this encounter Care Teams Business And Marketing Teacher Relationship Specialty Start Date End Date Chandni Urbina APRN, C.N.P., PCP - General Family Medicine 06/06/19 D.N.P. [address] [place] [phone] documented as of this encounter
--- OUTSIDE RECORDS SUMMARY | 2022-07-06 10:23 | XMS_ITS | Encounter Summary ---
:1995 Author Organization [facility] Address [address] [place] [address] Care Team Providers Name Role Phone Chandni Urbina APRN C.N.PGonzalo, D.N.P. Primary Care Provider Reason for Referral Outpatient (Routine) - Closed Specialty Diagnoses / Procedures Referred By Contact Refer red To Contact Orthopedic Surgery Diagnoses Follow Up Examination Postoperative Visit Cellulitis Leg Left Chandni Urbina, [facility] C.N.P., D.N.P. [address] [place] [address] Referral ID Status Reason Start Date Expiration Date Visits Requ ested Visits Authorized [id number] Closed 03/26/2019 03/25/2020 1 1 Encounter Details Date Type Department Care Team Description 03/26/2019 Office Visit Department of Ricki Corona M.D. [address] [place] [address] Follow Up Examination Postoperative Visi t (Primary Dx); Orthopedic Surgery in Chandni Urbina APRN C.N.P., D.N.P. [address] [phone] Cellulitis Leg Left Boby Zaragoza [address] [phone] Social History Tobacco Use Types Packs/Day Years [...] How often do you attend restoration or buddhism Never 10/23/2020 services? 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 She was encouraged to continue slah-tdf-amnpkri analgesics, ice, elevation and rest. She will [...] Name Type Priority Associated Diagnoses Order [facility] Orthopedic Surgery Outpatient Referral Routine Follow Up [...] as of this encounter Care Teams Manager Payer Relationship Specialty Start Date End Date Chandni Urbina APRN, C.N.P., PCP - General Family Medicine 06/06/19 D.N.P. [address] [phone] documented as of this encounter
--- OUTSIDE RECORDS SUMMARY | 2022-07-06 10:23 | XMS_ITS | Encounter Summary ---
:1995 Author Organization [facility] Address [address] [place] [address] Care Team Providers Name Role Phone Chandni Urbina APRN, C.N.Mana, D.N.P. Primary Care Provider Encounter Details Date Type Department Care Team Description 04/27/2019 Hospital Encounter Department of Edwige Lundberg Follo w Up Examination Postoperative Visit; Radiology in [place] C.N.PGonzalo, Celluli tis Leg [place], [place] D.N.P. [address] [place] [phone] Social History Tobacco Use Types Packs/Day Years [...] times do you talk on Twice a milagors k 10/23/2020 the phone with family, friends, or neighbors? How often do you get together with friends or Once a week 10/23/2020 relatives? How often do you attend taoism or roman catholic Never 10/23/2020 services? 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 [address] [place] [address] documented as of this encounter
--- OUTSIDE RECORDS SUMMARY | 2022-07-06 10:23 | XMS_ITS | Encounter Summary ---
:1995 Author Organization [facility] Address [address] [place] [address] Care Team Providers Name Role Phone Chandni Urbina APRN CGonzaloN.PGonzalo, D.N.P. Primary Care Provider Reason for Visit Reason Comments Follow-up Patient WBAT, Pain level 08/15 0, Concerned about incision site Outpatient (Routine) - Closed Specialty Diagnoses / Procedures Referred By Contact Refer red To Contact Orthopedic Surgery Edwige Lundberg, TOBI, [facility] C.N.PGonzalo, D.N.P. [address] [place] [phone] Referral ID Status Reason Start Date Expiration Date Visits Requ ested Visits Authorized [id number] Closed 04/03/2019 04/02/2020 1 1 Encounter Details Date Type Department Care Team Description 04/27/2019 Office Visit Department of Edwige Lundberg, Follow Up E xamination Orthopedic Surgery in [place] BRITTON.N.PGonzalo, Posto perative Visit Bailee KebedeNTeddy (Primary Dx) [address] [phone] Social History Tobacco Use Types Packs/Day Years [...] How often do you attend nondenominational or zoroastrian Never 10/23/2020 services? 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 [address] [place] [address] documented as of this encounter
--- OUTSIDE RECORDS SUMMARY | 2022-07-06 10:23 | XMS_ITS | Encounter Summary ---
:1995 Author Organization [facility] Address [address] [place] [address] Care Team Providers Name Role Phone Chandni Urbina APRN, C.N.P., D.N.P. Primary Care Provider Reason for Visit Reason Comments nurse only flu shot Appointment Request (Routine) - Closed Specialty Diagnoses / Procedures Referred By Contact Refer red To Contact Family Medicine Referral ID Status Reason Start Date Expiration Date Visits Requ ested Visits Authorized [id number] Closed 05/18/2019 05/17/2020 1 1 Encounter Details Date Type Department Care Team Description 05/18/2019 Immunization Department of Family Chandni Urbina APRN, C.N.P., D.N.P. [address] [place] [phone] Immunization Only Medicine, Katty Peter, RGonzaloNGonzalo [address] [place] [phone] (Primary Dx) [facility], in [address] [phone] Social History Tobacco Use Types [...] How often do you attend baptism or scientology Never 10/23/2020 services? 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 [address] [phone] documented as of this encounter
--- OUTSIDE RECORDS SUMMARY | 2022-07-06 10:23 | XMS_ITS | Encounter Summary ---
:1995 Author Organization [facility] Address [address] [place] [address] Care Team Providers Name Role Phone Ary Purcell P.A.-C., P.A. Primary Care Provider Unavaila ble Reason for Visit Reason Comments Sore Throat Aug 03 Nasal Congestion Appointment Request (Routine) - Closed Specialty Diagnoses / Procedures Referred By Contact Refer red To Contact Family Medicine Referral ID Status Reason Start Date Expiration Date Visits Requ ested Visits Authorized [id number] Closed 08/20/2019 08/19/2020 1 1 Encounter Details Date Type Department Care Team Description 08/21/2019 Office Visit Department of Family Ary Purcell, Inf ection Upper Respiratory (Primary Dx); Medicine, [place] PSoham-[place]., P.A. Phar yngitis Acute Clinic, in [address] [phone] Social History Tobacco Use Types Packs/Day Years [...] How often do you attend restoration or methodist Never 10/23/2020 services? Do you [...] or the highest technical, or vocational p [employer] degree you have received? 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 STAYER documented as of this encounter Last Filed Vital Signs Vital Sign Reading Time Taken Comments Blood Pressure 115/81 08/21/2019 2:25 PM SEAM STAYER Pulse 70 08/21/2019 2:25 PM SEAM STAYER Temperature 36.7 ??C (98.1 ??F) 08/21/2019 2:25 PM SEAM STAYER Respiratory Rate 20 08/21/2019 2:25 PM SEAM STAYER Oxygen Saturation 98% 08/21/2019 2:25 PM SEAM STAYER Inhaled Oxygen Concentration - - Weight 115 kg (253 lb 8.5 oz) 08/21/2019 2:25 PM SEAM STAYER Height - - Body Mass Index 40.92 02/20/2019 1:57 PM CDT documented in this encounter Patient Instructions Patient InstructionsAry Purcell P.A.-C. - 08/21/2019 2:30 PM CST May use OTC antihistamine (Zyrtec or Claritin) or similar for the next few days. May use OTC Flonase twice per day to help with nasal congestion and postnasal drip. Cold/cough remedies also available OTC - DayQuil/NyQuil, Mucinex, Sandra-Orland Cold/Flu, Robitussin DM, cough/throat lozenges, honey. May use OTC analgesics such as Tylenol/ibuprofen for low grade fevers and body aches. Increase fluid intake. Get plenty of rest. Cover your cough. Wash hands frequently. Follow up if symptoms worsen or fail to improve over the next several days. STAYER documented in this encounter Progress Notes Ary [...] swab today. Her pharmacy of choice is [facility]. 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 Ary Purcell P.A.-C. STAYER documented in this encounter Plan of Treatment Not on filedocumented as of this encounter Procedures Procedure Name Priority Date/Time Associated Diagnosis Comme nts STREP GROUP A, PCR, Routine 08/21/2019 3:02 PM Re sults for this POCT SEAM STAYER procedure are i n the results section. STREP GROUP A, PCR, Routine 08/21/2019 2:43 PM Pharyngitis Acu te Results for this POCT SEAM STAYER procedure are i n the results section. documented in this encounter Results Strep Group A, PCR, Point of Care (08/21/2019 3:02 PM SEAM STAYER) P athologist Signature Strep Group A, Negative Negative 08/21/2019 CNFL PCR, POCT 3:02 PM SEAM STAYER Specimen Anatomical Collection Method Collection Time Receive d Time (Source) Location / / Volume Laterality Varies 08/21/2019 3:02 PM 0 3:03 SEAM STAYER PM SEAM STAYER Generic [facility] LAB POCT ORDERABLES - DEVICE Performing Organization Address City/State/[facility] Code Phon e Number [address] [address] [place] [address] [address] Strep Group A, PCR, Point of Care (08/21/2019 2:43 PM SEAM STAYER) Analysis Performed At Patho logist Time Signature Strep Group A, Collected DEFAULT 08/21/2019 CNFL PCR, POCT 2:43 PM SEAM STAYER Specimen Anatomical Collection Method Collection Time Receive d Time (Source) Location / / Volume Laterality Varies (Throat) 08/21/2019 2:43 PM 2019 2:43 SEAM STAYER PM SEAM STAYER Ary Purcell P.A.-C., P.A. LAB POCT ORDERABLES - DEV ICE Performing Organization Address City/State/[facility] Code Phon e Number [address] [place] [address] System in [address] documented in this encounter Visit Diagnoses Diagnosis Infection Upper Respiratory - Primary Pharyngitis Acute documented in this encounter Additional Health Concerns Assessment Noted Time PHQ-9 Depression Total Score: 10 11/08/2018 12:47 PM C DT documented as of this encounter Care Teams Team Manager Relationship Specialty Start Date End Date Ary Purcell P.A.-C., P.A. PCP - General 06/07/19 01/14/22 documented as of this encounter
--- OUTSIDE RECORDS SUMMARY | 2022-07-06 10:23 | XMS_ITS | Encounter Summary ---
:[address] [facility] Address [address] [place] [address] Care Team Providers Name Role Phone Chandni Urbina APRN, C.N.Mana, D.N.P. Primary Care Provider Encounter Details Date Type Department Care Team Description 03/06/2019 Hospital Encounter Department of Edwige Lundberg, Pain Ankle Left Radiology in [place] C.N.PGonzaloSt John, [place] D.N.P. [address] [phone] Social History Tobacco Use Types Packs/Day Years [...] How often do you attend scientologist or episcopal Never 10/23/2020 services? 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 [address] [place] [address] documented as of this encounter
--- OUTSIDE RECORDS SUMMARY | 2022-07-06 10:23 | XMS_ITS | Encounter Summary ---
:1995 Author Organization [facility] Address [address] [place] [address] Care Team Providers Name Role Phone Chandni [...] How often do you attend episcopal or yarsanism Never 10/23/2020 services? 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 [address] [place] [phone] documented as of this encounter
--- OUTSIDE RECORDS SUMMARY | 2022-07-06 10:23 | XMS_ITS | Encounter Summary ---
:1995 Author Organization [facility] Address [address] [place] [address] Care Team Providers Name Role Phone Ary [...] Expiration Date Visits Requ ested Visits Authorized [id number] Closed 09/03/2019 09/02/2020 1 1 Encounter Details Date Type Department Care Team Description 09/03/2019 Office Visit Department of Family Ary Purcell Inf ection Upper Respiratory (Primary Dx); Medicine, [place] Gabriel, P.A. Phar yngitis Acute; Clinic, in [facility] [place] [facility] Intermittent (HCC) [address] [phone] Social History Tobacco Use Types Packs/Day Years [...] How often do you attend sabianist or confucianism Never 10/23/2020 services? 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 documented as of this encounter Last Filed Vital Signs Vital Sign Reading Time Taken Comments Blood Pressure 91/74 09/03/2019 11:00 AM TRAFFIC CONTROL SIGNALER Pulse 77 09/03/2019 11:00 AM TRAFFIC CONTROL SIGNALER Temperature 37 ??C (98.6 ??F) 09/03/2019 11:00 AM TRAFFIC CONTROL SIGNALER Respiratory Rate - - Oxygen Saturation 98% 09/03/2019 11:00 AM TRAFFIC CONTROL SIGNALER Inhaled Oxygen Concentration - - Weight 114 kg (251 lb 12.3 oz) 09/03/2019 11:00 AM TRAFFIC CONTROL SIGNALER Height - - Body Mass Index 40.64 02/20/2019 1:57 PM CDT documented in this encounter Patient Instructions Patient InstructionsAry Purcell, ManaACullenC. - 09/03/2019 11:00 AM CST May use OTC antihistamine (Zyrtec or Claritin) or similar for the next few days. May use OTC Flonase twice per day to help with nasal congestion and postnasal drip. Cold/cough remedies also available OTC - DayQuil/NyQuil, Mucinex, Sandra-Henderson Cold/Flu, Robitussin DM, cough/throat lozenges, honey. May use OTC analgesics such as Tylenol/ibuprofen for low grade fevers and body aches. Increase fluid intake. Get plenty of rest. Cover your cough. Wash hands frequently. Follow up if symptoms worsen or fail to improve over the next several days. FIC CONTROL SIGNALER documented in this encounter Progress Notes Ary [...] further needs atthis time. Ary Purcell P.A.-C. FIC CONTROL SIGNALER documented in this encounter Plan of Treatment Not on filedocumented as of this encounter Visit Diagnoses Diagnosis Infection Upper Respiratory - Primary Pharyngitis Acute Asthma Mild Intermittent (HCC) documented in this encounter Additional Health Concerns Assessment Noted Time PHQ-9 Depression Total Score: 10 11/08/2018 12:47 PM C DT documented as of this encounter Care Teams Market Development Executive Relationship Specialty Start Date End Date Ary Purcell P.A.-C., P.A. PCP - General 06/07/19 01/14/22 documented as of this encounter
--- OUTSIDE RECORDS SUMMARY | 2022-07-06 10:23 | XMS_ITS | Encounter Summary ---
:1995 Author Organization [facility] Address [address] [place] [address] Care Team Providers Name Role Phone Ary Purcell P.A.-C., P.A. Primary Care Provider Unavaila ble Reason for Visit Reason Comments Med Refill Encounter Details Date Type Department Care Team Description 07/08/2019 Refill Department of Orthopedic Chandni Urbina APRN, Med Refill Surgery in [place], [place] C.N.P., D.N.P. [address] [facility] [address] [place] [phone] [place] [phone] (Wo rk) Social History Tobacco Use Types [...] How often do you attend alevism or episcopal Never 10/23/2020 services? 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 PCP - General 06/07/19 01/14/22 documented as of this encounter
--- OUTSIDE RECORDS SUMMARY | 2022-07-06 10:23 | XMS_ITS | Encounter Summary ---
:1995 Author Organization [facility] Address [address] [place] [address] Care Team Providers Name Role Phone Chandni Urbina APRN, C.N.Mana, D.N.P. Primary Care Provider Encounter Details Date Type Department Care Team Description 03/27/2019 Clinical Communication Department of [facility] Chandni Urbina, Medicine, [place], C.N.P., Clinic, in [place] [address] [phone] Social History Tobacco Use Types Packs/Day Years [...] How often do you attend quaker or latter day Never 10/23/2020 services? 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 documented in this encounter Plan of Treatment Not on filedocumented as of this encounter Visit Diagnoses Not on filedocumented in this encounter Additional Health Concerns Assessment Noted Time PHQ-9 Depression Total Score: 10 11/08/2018 12:47 PM C DT documented as of this encounter Care Teams Open Hearth Melter Relationship Specialty Start Date End Date Chandni Urbina, [place], C.N.P., PCP - General Family Medicine 06/06/19 D.N.P. [address] [place] [address] documented as of this encounter
--- OUTSIDE RECORDS SUMMARY | 2022-07-06 10:23 | XMS_ITS | Encounter Summary ---
:1995 Author Organization [facility] Address [address] [place] [address] Care Team Providers Name Role Phone Ary Purcell P.A.-C., P.A. Primary Care Provider Ailin diaz Encounter Details Date Type Department Care Team Description 10/16/2019 Hospital Encounter Department of Ary Purcell Screeni ng Test Laboratory Medicine Gabriel Heller, Laborato ry in [place], .A. [address] [phone] Social History Tobacco Use Types Packs/Day Years [...] How often do you attend confucianism or protestant Never 10/23/2020 services? 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 documented in this encounter Results QuantiFERON-Tb Gold Plus, Blood (10/16/2019 2:38 PM ENVIRONMENTAL HEALTH SPECIALIST) athologist Signature QuantiFERON-TB Negative Negative 10/18/2019 ECLR Gold Plus 1:34 PM ENVIRONMENTAL HEALTH SPECIALIST Result Comment: No interferon-gamma response to M. [...] Nil Result 0.00 IU/mL 10/18/2019 1:34 PM ENVIRONMENTAL HEALTH SPECIALIST ECLR TB2 Ag minus Nil Result 0.00 IU/mL 10/18/2019 1:34 PM ENVIRONMENTAL HEALTH SPECIALIST ECLR Mitogen minus Nil Result >10.00 IU/mL 10/18/2019 1:34 PM ENVIRONMENTAL HEALTH SPECIALIST ECLR Nil Result 0.02 IU/mL 10/18/2019 1:34 PM ENVIRONMENTAL HEALTH SPECIALIST ECLR Specimen Anatomical Collection Method Collection Time Receive d Time (Source) Location / / Volume Laterality Blood (Blood, 10/16/2019 2:38 PM 10/16/19 20 9:46 Venous) ENVIRONMENTAL HEALTH SPECIALIST PM ENVIRONMENTAL HEALTH SPECIALIST Narrative [facility] - 10/18/2019 1:34 PM ENVIRONMENTAL HEALTH SPECIALIST Specimen Information: Specimen ID: [id number] Specimen Type: Blood Specimen Collection Start Date: 0 ??2:38 PM Specimen Received Date: 10/16/2019 ??9:46 PM Specimen ID: [id number] Specimen Type: Blood Specimen Collection Start Date: 0 ??2:38 PM Specimen Received Date: 10/16/2019 ??9:46 PM Specimen ID: [id number] Specimen Type: Blood Specimen Collection Start Date: 0 ??2:38 PM Specimen Received Date: 10/16/2019 ??9:46 PM Specimen ID: [id number] Specimen Type: Blood Specimen Collection Start Date: 0 ??2:38 PM Specimen Received Date: 10/16/2019 ??9:46 PM Ary Purcell P.A.-C., P.A. LAB MICROBIOLOGY - BLOOD ORDERABLES Performing Organization Address City/State/[facility] Phon e Number [facility]- [address] [place] [address] 54 [phone] [facility] [place] [address] System in [address] documented in this encounter Visit Diagnoses Diagnosis Screening Test Laboratory documented in this encounter Additional Health Concerns Assessment Noted Time PHQ-9 Depression Total Score: 11/08/2018 12:47 PM C DT documented as of this encounter Care Teams Mechanical Manufacturing Engineer Relationship Specialty Start Date End Date Ary Purcell P.A.-C., P.A. PCP - General 06/07/19 01/14/22 documented as of this encounter
--- OUTSIDE RECORDS SUMMARY | 2022-07-06 10:23 | XMS_ITS | Encounter Summary ---
:1995 Author Organization [facility] Address [address] [place] [address] Care Team Providers Name Role Phone Chandni Urbina APRN C.N.P., D.N.P. Primary Care Provider Reason for Visit Reason Comments Pain Outpatient (Routine) - Closed Specialty Diagnoses / Procedures Referred By Contact Refer red To Contact Orthopedic Surgery Diagnoses Pain Ankle Left Edwige Lundberg APRN, [facility] C.N.P., D.N.P. [address] [place] [phone] Referral ID Status Reason Start Date Expiration Date Visits Requ ested Visits Authorized [id number] Closed 02/19/2019 02/19/2020 1 1 Encounter Details Date Type Department Care Team Description 03/06/2019 Office Visit Department of Orthopedic Edwige Lundberg, Pain Ankle Left Surgery in [facility], C .N.P., D.N.P. [address] [phone] Social History Tobacco Use Types Packs/Day Years [...] How often do you attend worship or adventism Never 10/23/2020 services? 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 [address] [place] [phone] documented as of this encounter
--- OUTSIDE RECORDS SUMMARY | 2022-07-06 10:23 | XMS_ITS | Encounter Summary ---
:1995 Author Organization [facility] Address [address] [place] [address] Care Team Providers Name Role Phone Chandni Urbina APRN, C.NTeddy, D.N.P. Primary Care Provider Reason for Visit Reason Comments Follow-up Infection concerns, swelling , distal part of incision get red and hot Encounter Details Date Type Department Care Team Description 06/01/2019 Office Visit Department of Edwige Lundberg, Fracture An kle Closed Orthopedic Surgery in [place]erm[place] BRITTONN.M[place], Initi al Left Bailee KebedeN.P. [address] [place] [phone] Social History Tobacco Use Types Packs/Day Years [...] How often do you attend yarsanism or yarsanism Never 10/23/2020 services? 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 [address] [place] [phone] documented as of this encounter
--- OUTSIDE RECORDS SUMMARY | 2022-07-06 10:23 | XMS_ITS | Encounter Summary ---
:1995 Author Organization [facility] Address [address] [place] [address] Care Team Providers Name Role Phone Ary Purcell P.A.-C., P.A. Primary Care Provider Ailin diaz Encounter Details Date Type Department Care Team Description 10/15/2019 Clinical Communication Department of Vani Salazar, Medicine, [place] [facility], in [address] [phone] Social History Tobacco Use Types Packs/Day Years [...] How often do you attend uatsdin or pentecostal Never 10/23/2020 services? Do you [...] at Date Recorded Female 08/12/2017 10:51 AM BOILER MAKER documented as of this encounter Miscellaneous Notes Telephone Encounter - Mei [place] - 10/15/2019 2:42 PM CST Carly is requesting to have Ary Purcell order a Quantiferon-TB Gold, for her schooling. We may contact Carly at [phone] and she states we may leave a detailed message, should we receive her voicemail. ER MAKER documented in this encounter Plan of Treatment Not on filedocumented as of this encounter Results QuantiFERON-Tb Gold Plus, Blood (10/16/2019 2:38 PM BOILER MAKER) P athologist Signature QuantiFERON-TB Negative Negative 10/18/2019 ECLR Gold Plus 1:34 PM BOILER MAKER Result Comment: No interferon-gamma response to M. [...] Nil Result 0.00 IU/mL 10/18/2019 1:34 PM BOILER MAKER ECLR TB2 Ag minus Nil Result 0.00 IU/mL 10/18/2019 1:34 PM BOILER MAKER ECLR Mitogen minus Nil Result >10.00 IU/mL 10/18/2019 1:34 PM BOILER MAKER ECLR Nil Result 0.02 IU/mL 10/18/2019 1:34 PM BOILER MAKER ECLR Specimen Anatomical Collection Method Collection Time Receive d Time (Source) Location / / Volume Laterality Blood (Blood, 10/16/2019 2:38 PM 10/16/19 9:46 Venous) BOILER MAKER PM BOILER MAKER Narrative [facility] - 10/18/2019 1:34 PM BOILER MAKER Specimen Information: Specimen ID: [id number] Specimen Type: Blood Specimen Collection Start Date: 0 ??2:38 PM Specimen Received Date: 10/16/2019 ??9:46 PM Specimen ID: [id number] Specimen Type: Blood Specimen Collection Start Date: 0 ??2:38 PM Specimen Received Date: 10/16/2019 ??9:46 PM Specimen ID: [id number] Specimen Type: Blood Specimen Collection Start Date: 0 ??2:38 PM Specimen Received Date: 10/16/2019 ??9:46 PM Specimen ID: [id number] Specimen Type: Blood Specimen Collection Start Date: 0 ??2:38 PM Specimen Received Date: 10/16/2019 ??9:46 PM Ary Purcell P.A.-C., P.A. LAB MICROBIOLOGY - BLOOD ORDERABLES Performing Organization Address City/State/ZIP Code Phon e Number [facility]- [address] [place] [address] [place] [address] System in [address] documented in this encounter Visit Diagnoses Diagnosis Screening Test Laboratory - Primary Screening Test Laboratory documented in this encounter Additional Health Concerns Assessment Noted Time PHQ-9 Depression Total Score: 10 11/08/2018 12:47 PM C DT documented as of this encounter Care Teams Training Systems Officer Relationship Specialty Start Date End Date Ary Purcell P.A.-C., P.A. PCP - General 06/07/19 01/14/22 documented as of this encounter
--- OUTSIDE RECORDS SUMMARY | 2022-07-06 10:23 | XMS_ITS | Encounter Summary ---
:1995 Author Organization [facility] Address [address] [place] [address] Care Team Providers Name Role Phone Ary Purcell P.A.-C. P.AGonzalo Primary Care Provider Ailin diaz Encounter Details Date Type Department Care Team Description 08/20/2019 [facility], [facility], in [address] [place], [place] [phone] [place] [phone] Social History Tobacco Use Types Packs/Day Years [...] How often do you attend scientology or gnosticism Never 10/23/2020 services? 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 PCP - General 06/07/19 01/14/22 documented as of this encounter
--- OUTSIDE RECORDS SUMMARY | 2022-07-06 10:23 | XMS_ITS | Encounter Summary ---
:1995 Author Organization [facility] Address [address] [place] [address] Care Team Providers Name Role Phone Chandni Urbina APRN C.N.P., D.N.P. Primary Care Provider Encounter Details Date Type Department Care Team Description 03/26/2019 Hospital Encounter Department of Chandni Urbina Follow Up Examination Radiology in [place] Heller APRN, Postoperati ve Visit [place], [place] C.N.P., D.N.P. [address] [facility] [address] [place] [phone] Social History Tobacco Use Types Packs/Day Years [...] How often do you attend mu-ism or bahai Never 10/23/2020 services? 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 [address] [place] [phone] documented as of this encounter
--- OUTSIDE RECORDS SUMMARY | 2022-07-06 10:23 | XMS_ITS | Encounter Summary ---
:1995 Author Organization [facility] Address [address] [place] [address] Care Team Providers Name Role Phone Chandni Urbina APRN, C.N.P., D.N.P. Primary Care Provider Reason for Visit Reason Comments Med Refill Encounter Details Date Type Department Care Team Description 02/27/2019 Refill Department of Obstetrics and [facility], [facility] TOBI wolff, Med Refill Gynecology in [facility] ELOY, M.S .N., B.S.N., R.N. [phone] [place] [phone] Social History Tobacco Use Types Packs/Day Years [...] How often do you attend sikhism or jew Never 10/23/2020 services? 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 [address] [place] [address] documented as of this encounter
--- OUTSIDE RECORDS SUMMARY | 2022-07-06 10:23 | XMS_ITS | Encounter Summary ---
:1995 Author Organization [facility] Address [address] [place] [address] Care Team Providers Name Role Phone Chandni Urbina APRN C.N.P., D.N.P. Primary Care Provider Reason for Referral Outpatient (Routine) - Closed Specialty Diagnoses / Procedures Referred By Contact Refer red To Contact Orthopedic Surgery Edwige Lundberg APRN, [facility] C.N.P., D.N.P. [address] [place] [phone] Referral ID Status Reason Start Date Expiration Date Visits Requ ested Visits Authorized [id number] Closed 04/03/2019 04/02/2020 1 1 Reason for Visit Reason Comments Fracture Follow-up Infection Outpatient (Routine) - Closed Specialty Diagnoses / Procedures Referred By Contact Modesta mullen To Contact Orthopedic Surgery Diagnoses Follow Up Examination Postoperative Visit Cellulitis Leg Left Chandni Urbina [facility] [place], C.N.P., D.N.P. [address] [place] [phone] Referral ID Status Reason Start Date Expiration Date Visits Requ ested Visits Authorized [id number] Closed 03/26/2019 03/25/2020 1 1 Encounter Details Date Type Department Care Team Description 04/03/2019 Office Visit Department of Edwige Lundberg, Follow Up E xaramya Postoperative Visit; Orthopedic Surgery in [place], C.N.P., Cellu litis Leg Left [place], D.N.P. [address] [place] [phone] Social History Tobacco Use Types Packs/Day [...] How often do you attend anabaptist or amish Never 10/23/2020 services? 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 [address] [place] [phone] documented as of this encounter
--- OUTSIDE RECORDS SUMMARY | 2022-07-06 10:23 | XMS_ITS | Encounter Summary ---
:1995 Author Organization [facility] Address [address] [place] [address] Care Team Providers Name Role Phone Chandni Urbina APRN C.N.P., D.N.P. Primary Care Provider Reason for Visit Reason Comments Follow-up Imbedded suture Encounter Details Date Type Department Care Team Description 03/20/2019 Office Visit Department of Edwige Lundberg APRN, C.N.P., D.N.P. [address] [place] [phone] Open Reduction Orthopedic Surgery in Chandni Urbina APRN, C.N.P., D.N.P. [address] [place] [phone] Internal Fixation Hakeem Genao, Ankle Status P ost [place] (Primary Dx) [address] [place] [address] [place] [phone] Social History Tobacco Use Types [...] How often do you attend restorationist or scientology Never 10/23/2020 services? 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 [address] [place] [phone] documented as of this encounter
--- OUTSIDE RECORDS SUMMARY | 2022-07-06 10:23 | XMS_ITS | Encounter Summary ---
:[address] [facility] Address [address] [place] [address] Care Team Providers Name Role Phone Chandni Urbina APRN, C.N.P., D.N.P. Primary Care Provider Reason for Visit Auth/Cert Specialty Diagnoses / Procedures Referred By Contact Refer red To Contact Diagnoses Fracture Ankle Closed Initial Left Fracture Ankle Closed Initial Left [S82.892A] Procedures OK CLSD TX DIST FIB WO MANIP OPEN REDUCTION INTERNAL FIXATION ANKLE Referral ID Status Reason Start Date Expiration Date Visits Requ ested Visits Authorized [id number] 1 1 Encounter Details Date Type Department Care Team Description 02/20/2019 Surgery [facility] MAIN OR Bruno Spivey, OPEN REDUCTION INTERNAL [address] [place] [address] Richard FIXATION [place], [place] [address] [place] [address] [place], [place] [phone] (Wo rk) Social History Tobacco Use [...] How often do you attend pentecostal or synagogue Never 10/23/2020 services? 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 POST-OPERATIVE DIAGNOSIS Left ankle [place] B fracture with syndesmotic disruption. PROCEDURE(S) Open reduction/internal fixation of left ankle fracture with syndesmotic fixation. SURGEON(S) Bruno Spivey M.D. ANESTHESIA TYPE Spinal anesthesia. ROVING TECHNICIAN: Chandni Urbina APRN, C.N.P., D.N.P. I requested [...] Implant Name Type Inv. Item Serial No. Artillery Specialist Lot No. LRB No. Used Knotless TightRope Syndesmosis Repair Implant, Stainless Steel Ankle Implant Arthrex [id number] FTHRD LCK 4.0X16 - [id number] Hardware e.g. pins/screws/rods SCRW LCP ST FTHRD LCK 4.0X16 Depuy Synthes Left [address] FTHRD LCK 4.0X18 - [id number] Hardware e.g. pins/screws/rods SCRW LCP ST FTHRD LCK 4.0X18 Depuy Synthes Left 1 PLT FIB LCD 1/3 TUB 7H LCK 85 - [id number] Hardware e.g. pins/screws/rods PLT FIB LCD 1/3 TUB 7H LCK 85 Depuy Synthes Left [address] FTHRD 3.5X24 - [id number] Hardware e.g. pins/screws/rods SCRW DCP ST FTHRD 3.5X24 Depuy Synthes Left [address] FTHRD 3.5X10 - [id number] Hardware e.g. pins/screws/rods SCRW DCP ST FTHRD 3.5X10 Depuy Synthes Left [address] FTHRD 3.5X12 - S204.012 - [id number] Ankle Implant SCRW LCD ST FTHRD 3.5X12 [...] Role: * Bruno Spivey M.D. - Primary Maintenance Technician 3Rd Shift: Chandni Urbina APRN, C.N.P., D.N.P. Anesthesia Type Regional Pre-operative Diagnosis * Fracture Ankle Closed Initial Left [G55.292D] Brief Operative Note Details Specimens None Drains None Estimated Blood Loss None Implants Implant Name Type Inv. Item Serial No. Artillery Specialist Lot No. LRB No. Used Knotless TightRope Syndesmosis Repair Implant, Stainless Steel Ankle Implant Arthrex [id number] FTHRD LCK 4.0X16 - [id number] Hardware e.g. pins/screws/rods SCRW LCP ST FTHRD LCK 4.0X16 Depuy Synthes Left [address] FTHRD LCK 4.0X18 - [id number] Hardware e.g. pins/screws/rods SCRW LCP ST FTHRD LCK 4.0X18 Depuy Synthes Left 1 PLT FIB LCD 1/3 TUB 7H LCK 85 - [id number] Hardware e.g. pins/screws/rods PLT FIB LCD 1/3 TUB 7H LCK 85 Depuy Synthes Left [address] FTHRD 3.5X24 - [id number] Hardware e.g. pins/screws/rods SCRW DCP ST FTHRD 3.5X24 Depuy Synthes Left [address] FTHRD 3.5X10 - [id number] Hardware e.g. pins/screws/rods SCRW DCP ST FTHRD 3.5X10 Depuy Synthes Left [address] FTHRD 3.5X12 - S204.012 - [id number] Ankle Implant SCRW LCD ST FTHRD 3.5X12 [...] Address City/State/ZIP Code Phon e Number [address] [facility] documented in this encounter Visit Diagnoses [...] 1534 (Given - Provider: Pavan De Souza, COMMUNITY ASSISTANT, CONCRETE SWIMMING POOL INSTALLER) 600 mg (rounded from 825 mg = [...] Verify - Provider: Pavan De Souza APRN, CONCRETE SWIMMING POOL INSTALLER)1626 (Anesthesia Volume Adjustment - Provider: Pavan De [...] documented as of this encounter Care Teams Technical Engineer Relationship Specialty Start Date End Date Chandni Urbina APRN, C.N.P., PCP - General Family Medicine 06/06/19 D.N.P. [address] [place] [address] documented as of this encounter
--- OUTSIDE RECORDS SUMMARY | 2022-07-06 10:23 | XMS_ITS | Encounter Summary ---
:1995 Author Organization [facility] Address [address] [place] [address] Care Team Providers Name Role Phone Chandni Urbina APRN, C.N.Mana, D.N.P. Primary Care Provider Reason for Visit Reason Comments Post-op Wound Care Outpatient (Routine) - Closed Specialty Diagnoses / Procedures Referred By Contact Refer red To Contact Orthopedic Surgery Diagnoses Fracture Ankle Closed Initial Left Chandni Urbina, [facility] C.N.PGonzalo, D.N.P. [address] [place] [address] Referral ID Status Reason Start Date Expiration Date Visits Requ ested Visits Authorized [id number] Closed 02/20/2019 02/20/2020 1 1 Encounter Details Date Type Department Care Team Description 03/29/2019 Office Visit Department of Chandni Urbina, Fracture Ankle Closed Orthopedic Surgery in [place] C.N.PGonzalo, [facility] al Left [place], [place] D.N.P. [address] [facility] [address] [place] [phone] Social History Tobacco Use Types Packs/Day Years [...] How often do you attend christian or orthodox Never 10/23/2020 services? 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 [address] [place] [phone] documented as of this encounter
--- OUTSIDE RECORDS SUMMARY | 2022-07-06 10:24 | XMS_ITS | Encounter Summary ---
:1995 Author Organization [facility] Address [address] [place] [address] Care Team Providers Name Role Phone Chandni Urbina APRN, C.N.P., D.N.P. Primary Care Provider Reason for Visit Auth/Cert Specialty Diagnoses / Procedures Referred By Contact Refer red To Contact Diagnoses Fracture Ankle Closed Initial Left Fracture Ankle Closed Initial Left [[id number]] Procedures AL CLSD TX DIST FIB WO MANIP OPEN REDUCTION INTERNAL FIXATION ANKLE Referral ID Status Reason Start Date Expiration Date Visits Requ ested Visits Authorized [id number] 1 1 Encounter Details Date Type Department Care Team Description 02/20/2019 Anesthesia Event [facility] Pavan De Souza APRN, WELDING MACHINE OPERATOR [employer] [address] [place] [address] [place] [address] Ricarda Melo M.D. [address] [place] [address] [place] [address] Anesthesia Record Procedure Summary Procedure Name Responsible Anesthesia Start Anesthesia Stop Time Anesthesiologist Time OPEN REDUCTION Pavan De Souza APRN, 02/20/19 1512 1627 INTERNAL FIXATION WELDING MACHINE OPERATOR GAS METAL ARC ANKLE (Left: Ankle) Events Date Time Event [...] How often do you attend religion or buddhism Never 10/23/2020 services? 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 Risks/Benefits/Alternatives of Blood transfusion discussed with [...] procedure ar e in the results section. AL US GUIDE PLC NDL Routine 02/20/2019 3:36 PM Re sults for this CDT procedure are i n the results section. AL INJ ANES SCIATIC Routine 02/20/2019 3:36 PM [...] De Souza APRN, CRNA PROCEDURE/MINOR SURGICAL ORDERABLES AL INJ ANES SCIATIC NERVE, AL US GUIDE BRAYAN NDL, DAYA ANE NERVE [...] documented as of this encounter Care Teams Parcel Post Weigher Relationship Specialty Start Date End Date Chandni Urbina, TOBI, C.N.P., PCP - General Family Medicine 06/06/19 [place] [address] [place], [place] [address] documented as of this encounter
--- OUTSIDE RECORDS SUMMARY | 2022-07-06 10:24 | XMS_ITS | Encounter Summary ---
:1995 Author Organization [facility] Address [address] [place] [address] Care Team Providers Name Role Phone Chandni Urbina APRN C.NAmina., D.N.P. 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 [address] [place] [address] documented as of this encounter
--- OUTSIDE RECORDS SUMMARY | 2022-07-06 10:24 | XMS_ITS | Encounter Summary ---
:1995 Author Organization [facility] Address [address] [place] [address] Care Team Providers Name Role Phone Chandni Urbina APRN C.N.PGonzalo, D.N.P. Primary Care Provider Reason for Visit Reason Comments Med Refill Encounter Details Date Type Department Care Team Description 09/26/2018 Refill Department of Family Medicine, Chandni Urbina APRN, Med Refill [facility], in [place] C .N.P., D.N.P. [address] [address] [place], [place] [address] [phone] Social History Tobacco Use Types Packs/Day Years [...] How often do you attend zoroastrianism or roman catholic Never 10/23/2020 services? 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 Nurse Review: Pharmacy Communication Provider: Chandni Urbina APRN, C.N.P., D.N.P. Medication: Albuterol sulfate Strength: 2.5 mg/3mL soln Frequency: Take 3 mL by nebulization every 4 hours as needed for wheezing Pharmacy: [facility] Comment: ISION LENS TECHNICIAN documented in this encounter Plan of Treatment Not on filedocumented as of this encounter Visit Diagnoses Not on filedocumented in this encounter Additional Health Concerns Assessment Noted Time PHQ-9 Depression Total Score: 11 02/10/2018 4:00 PM CD T documented as of this encounter Care Teams Scale Clerk Relationship Specialty Start Date End Date Chandni Urbina APRN, C.N.P., PCP - General Family Medicine 06/06/19 D.N.P. [address] [place] [place] [address] documented as of this encounter
--- OUTSIDE RECORDS SUMMARY | 2022-07-06 10:24 | XMS_ITS | Encounter Summary ---
:1995 Author Organization [facility] Address [address] [place] [address] Care Team Providers Name Role Phone Chandni Matos APRN, C.N.Mana, D.N.P. Primary Care Provider Encounter Details Date Type Department Care Team Description 10/17/2018 Clinical Communication Department of [facility] Chandni Matos, Medicine, [place] TOBI, C.N.P., Clinic, in Frannie [address] [address] Social History Tobacco Use Types Packs/Day Years [...] How often do you attend scientologist or restorationist Never 10/23/2020 services? Do you [...] STRING LASTER documented as of this encounter Miscellaneous Notes [...] PM CST Advair prescribed. Berto Aldrich Thanks. NG LASTER Telephone Encounter - Edith Corona R.N. - 10/17/2018 11:30 AM STRING LASTER Please advise on the requested alternative. NG LASTER Telephone Encounter - Felisha Dumont - 10/17/2018 9:42 AM CST Reason for Communication: [facility] called and stated the prescription for Breo Ellipta is not covered by patients insurance, the one that is covered is fluticasone salmeterol inhaler. Current Can Nursing/Provider leave a detailed message: Did the patient refuse triage through Nurse line? (for symptom based concerns) Action Needed: new prescription Name of Medication (if relevant): NG LASTER documented in this encounter Plan of Treatment Not on filedocumented as of this encounter Visit Diagnoses Not on filedocumented in this encounter Additional Health Concerns Assessment Noted Time PHQ-9 Depression Total Score: 15 10/11/2018 12:[address] documented as of this encounter Care Teams Nitrating Acid Mixer Relationship Specialty Start Date End Date Chandni Matos APRN, C.N.P., PCP - General Family Medicine 06/06/19 [place] [address] [place] [address] documented as of this encounter
--- OUTSIDE RECORDS SUMMARY | 2022-07-06 10:24 | XMS_ITS | Encounter Summary ---
:1995 Author Organization [facility] Address [address] [place] [address] Care Team Providers Name Role Phone Chandni Urbina APRN C.N.Mana, D.N.P. Primary Care Provider Encounter Details Date Type Department Care Team Description 10/11/2018 Hospital Encounter Department of Dorian Khalil, Anxiety Generalized Laboratory Medicine M.DGonzalo Disorder and Pathology, [address] [place] [address], in [place], [place] [address] [place] [address] [place], [place] (Work) [phone] Social History Tobacco Use Types Packs/Day Years [...] How often do you attend gnosticism or yazidi Never 10/23/2020 services? Do you [...] at Date Recorded Female 08/12/2017 10:51 AM [address] documented as of this encounter Medications at [...] Generalize d Results for this CASCADE, S [facility] [place] Disorder procedure are i n the results section. CBC WITH Routine 10/11/2018 2:14 PM Anxiety Generalized Re sults for this DIFFERENTIAL, B [facility] [place] Disorder procedure ar e in the results section. documented in this encounter Results CBC with Differential (10/11/2018 2:14 PM [facility] [place]) [facility] Method Time Signature Hemoglobin 13.5 11.6 - 10/11/2018 [facility] 15.0 g/dL 2:36 PM [facility] [address] [facility] - [facility] Hematocrit 40.6 35.5 - 10/11/2018 [facility] 44.9 % 2:36 PM [facility] [address] [facility] Erythrocytes 4.51 3.92 - 10/11/2018 [facility] 5.13 2:36 PM [facility] [address] [facility]ATORIES - x10(12)/L [facility] MCV 90.0 78.2 - 10/11/2018 [facility] 97.9 fL 2:36 PM [facility] [address] [facility] - [facility] RBC Distrib Width 12.4 12.2 - 10/11/2018 [facility] 16.1 % 2:36 PM [facility] [address] [facility] - [facility] Platelet Count 266 157 - 371 10/11/2018 [facility] x10(9)/L 2:36 PM [facility] [address] [facility] Leukocytes 8.8 3.4 - 9.6 10/11/2018 [facility] x10(9)/L 2:36 PM [facility] [address] [facility] Neutrophils 5.68 1.56 - 10/11/2018 [facility] 6.45 2:36 PM [facility] [facility]IES - x10(9)/L [facility] Lymphocytes 2.44 0.95 - 10/11/2018 [facility] 3.07 2:36 PM [facility] [facility]IES - x10(9)/L [facility] Monocytes 0.49 0.26 - 10/11/2018 [facility] 0.81 2:36 PM [facility] [facility]ATORIES - x10(9)/L [facility] Eosinophils 0.15 0.03 - 10/11/2018 [facility] 0.48 2:36 PM [facility]IES - x10(9)/L [facility] Basophils 0.04 0.01 - 10/11/2018 [facility] 0.08 2:36 PM [facility] [facility]IES - x10(9)/L [facility] Specimen Anatomical Collection Method Collection Time Receive d Time (Source) Location / / Volume Laterality Blood (Blood, 10/11/2018 2:14 PM 10/11/19 19 2:32 Venous) [facility] [address] PM [facility] [address] Dorian Khalil M.D. LAB BLOOD ADD-ON Performing Organization Address City/[facility]/ZIP Code Phon e Number [facility] - [address] [place] [address] 05 [facility] Thyroid Function Strawberry (10/11/2018 2:14 PM [facility] [address]) athologist Signature TSH, Sensitive 3.7 0.3 - 4.2 10/11/2018 [facility] mIU/L 3:26 PM [facility] [address] [facility] - [facility] Specimen Anatomical Collection Method Collection Time Receive d Time (Source) Location / / Volume Laterality Blood (Blood, 10/11/2018 2:14 PM 10/11/19 19 2:32 Venous) [facility] PM [facility] [address] Dorian Khalil M.D. LAB BLOOD ADD-ON Performing Organization Address City/[facility] Phon e Number [facility] - [address] documented in this encounter Visit Diagnoses Diagnosis Anxiety Generalized Disorder documented in this encounter Additional Health Concerns Assessment Noted Time PHQ-9 Depression Total Score: 15 10/11/2018 12:[address] documented as of this encounter Care Teams Pure Culture Operator Relationship Specialty Start Date End Date Chandni Urbina APRN, C.N.P., PCP - General Family Medicine 06/06/19 D.N.P. [address] [place] [phone] documented as of this encounter
--- OUTSIDE RECORDS SUMMARY | 2022-07-06 10:24 | XMS_ITS | Encounter Summary ---
:1995 Author Organization [facility] Address [address] [place] [address] Care Team Providers Name Role Phone Chandni Urbina APRN, C.N.P., D.N.P. Primary Care Provider Reason for Referral Behavioral Health (Routine) - Closed Specialty Diagnoses / Procedures Referred By Contact Refer red To Contact Psychiatry / Psychiatry Diagnoses Bipolar II Disorder (HCC) Chandni Urbina, [facility] TOBI C.N.P., D.N.P. [address] [place] [address] Referral ID Status Reason Start Date Expiration Date Visits V isits Requested Authorized [id number] Closed Specialty 09/25/2018 09/25/2019 1 1 Services Required YARDIST Reason for Visit Reason Comments Cough chills/sweats, sore throat, productive cough and shortness of breath Appointment Request (Routine) - Closed Specialty Diagnoses / Procedures Referred By Contact Refer red To Contact Family Medicine Referral ID Status Reason Start Date Expiration Date Visits Requ ested Visits Authorized [id number] Closed 09/25/2018 09/25/2019 1 Encounter Details Date Type Department Care Team Description 09/25/2018 Office Visit Department of Family Chandni Urbina, In fection Upper Respiratory (Primary Dx); Medicine, Hakeem BRITTON C.N.P., Asthma Mil d Intermittent ([facility]); [facility], in D.N.P. Bipolar II Disorder ([facility]) Hakeem Genao, [address] [place] [address] [address] [place] [phone] [address] (Work) [phone] Social History Tobacco Use Types Packs/Day Years [...] How often do you attend congregational or confucianist Never 10/23/2020 services? 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 She has also tried gnuh-abt-iwfadzy Mucinex and ibuprofen for symptoms. No known fevers. No chest pain. No vomiting. Patient is also requesting a referral to Psychiatry in [place]. She has not been taking her Cymbalta [...] A referral was placed for Psychiatry in [place] per patient request for medication evaluation. Patient [...] the content. Chandni Urbina APRN, Mitchell.N.P., D.N.P. YARDIST documented in this encounter Plan of Treatment Scheduled Referrals Name Type Priority Associated Order Schedule Diagnoses Psychiatry and Outpatient Referral Routine Bipolar II Disorder Expected: Psychology - General ([facility]) 019 consult (clinic) (Approximat e), Expires: 09/25/2021 documented as of this encounter Visit Diagnoses Diagnosis Infection Upper Respiratory - Primary Asthma Mild Intermittent ([facility]) Bipolar II Disorder ([facility]) documented in this encounter Additional Health Concerns Assessment Noted Time PHQ-9 Depression Total Score: 11 02/10/2018 4:00 PM CD T documented as of this encounter Care Teams University Counselor Relationship Specialty Start Date End Date Chandni Urbina APRN, C.N.P., PCP - General Family Medicine 06/06/19 D.N.P. [address] [place] [phone] documented as of this encounter
--- OUTSIDE RECORDS SUMMARY | 2022-07-06 10:24 | XMS_ITS | Encounter Summary ---
:1995 Author Organization [facility] Address [address] [place] [address] Care Team Providers Name Role Phone Chandni Urbina APRN, C.N.P., D.N.P. Primary Care Provider Reason for Visit Reason Comments Contraception Recheck to renew Appointment Request (Routine) - Closed Specialty Diagnoses / Procedures Referred By Contact Refer red To Contact Obstetrics and Gynecology Referral ID Status Reason Start Date Expiration Date Visits Requ ested Visits Authorized [id number] Closed 03/06/2018 03/06/2019 1 Encounter Details Date Type Department Care Team Description 03/08/2018 Office Visit Department of Noy Loya, Screening For Venereal Disease (Primary Dx); Obstetrics and FOOD SAFETY SPECIALIST, CNM, Gynecological Examination Normal Gynecology in [facility] M.S.N., B.S.N.[place], [place] R.N. [address] [place] [address] [address] [place], [place] [phone] Social History Tobacco Use Types Packs/Day Years [...] How often do you attend sikhism or druze Never 10/23/2020 services? 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 Does not want depo. 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 Last pap 2015 and was nl [...] Results Chlamydia culture (03/08/2018 3:07 PM CDT) [facility] gist Method Time Signature Source VAGINA 03/09/2018 [facility] 2:05 PM CDT [facility] Chlamydia Negative Negative 03/09/2018 [facility] trachomatis 2:05 PM CDT [facility] Comment: ----ADDITIONAL INFORMATION---- This report is [...] Organization Address City/State/ZIP Code Phon e Number [facility] [address] [facility] [address] [facility] documented in this encounter Visit Diagnoses Diagnosis Screening For Venereal Disease - Primary Gynecological Examination Normal documented in this encounter Additional Health Concerns Assessment Noted Time PHQ-9 Depression Total Score: 11 02/10/2018 4:00 PM CD T documented as of this encounter Care Teams Telephone Clerk Relationship Specialty Start Date End Date Chandni Urbina APRN, C.N.P., PCP - General Family Medicine 06/06/19 D.N.P. [address] [place] [address] documented as of this encounter
--- OUTSIDE RECORDS SUMMARY | 2022-07-06 10:24 | XMS_ITS | Encounter Summary ---
:1995 Author Organization [facility] Address [address] [place] [address] Care Team Providers Name Role Phone Chandni Urbina APRN, C.N.P., D.N.P. Primary Care Provider Encounter Details Date Type Department Care Team Description 09/01/2018 Orders Only [facility] Pharmacy - Chandni Bhat, TOBI, [address] C.N.P., D.N.P. BHAVIN PATEL [phone] [place] [address] [place], [place] [address] (Wo rk) Social History [...] How often do you attend mandaen or mandaeism Never 10/23/2020 services? 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 [address] [place] [address] documented as of this encounter
--- OUTSIDE RECORDS SUMMARY | 2022-07-06 10:24 | XMS_ITS | Encounter Summary ---
:1995 Author Organization [facility] Address [address] [place] [address] Care Team Providers Name Role Phone Chandni Urbina APRN C.N.Mana, D.N.P. Primary Care Provider Encounter Details Date Type Department Care Team Description 10/12/2018 Diagnostic Department of Sleep Dorian Khalil, Anxiety Generalized Medicine in [place] Tobias M.D. Disorder [place] [address] [facility] [address] [place] [phone] Social History Tobacco Use Types Packs/Day Years [...] How often do you attend zoroastrianism or mormonism Never 10/23/2020 services? 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 documented as of this encounter Plan of Treatment Not on filedocumented as of this encounter Procedures Procedure Name Priority Date/Time Associated Diagnosis Comme nts PUL HOME OVERNIGHT Routine 10/13/2018 3:55 PM CERTIFIED MASTER SAFECRACKER Anxiety Gene ralized OXIMETRY Disorder documented in this encounter Results Home Overnight Oximetry (10/13/2018 3:55 PM CERTIFIED MASTER SAFECRACKER) Specimen (Source) Anatomical Location Collection Method / [...] documented as of this encounter Care Teams Social Work Professor Relationship Specialty Start Date End Date Chandni Urbina APRN, C.N.P., PCP - General Family Medicine 06/06/19 D.N.P. [address] [place] [phone] documented as of this encounter
--- OUTSIDE RECORDS SUMMARY | 2022-07-06 10:24 | XMS_ITS | Encounter Summary ---
:1995 Author Organization [facility] Address [address] [place] [address] Care Team Providers Name Role Phone Chandni Urbina APRN, C.N.P., D.N.P. Primary Care Provider Encounter Details Date Type Department Care Team Description 09/15/2018 Orders Only [facility] Pharmacy - Chandni Bhat, TOBI, [address] C.N.P., D.N.P. [place]EL [phone] [place] [address] [place], [place] [phone] (Wo rk) Social History [...] How often do you attend judaism or rastafarian Never 10/23/2020 services? 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 [address] [place] [address] documented as of this encounter
--- OUTSIDE RECORDS SUMMARY | 2022-07-06 10:24 | XMS_ITS | Encounter Summary ---
:1995 Author Organization [facility] Address [address] [place] [address] Care Team Providers Name Role Phone Chandni Urbina APRN, C.N.P., D.N.P. Primary Care Provider Encounter Details Date Type Department Care Team Description 08/23/2018 Orders Only [facility] Pharmacy - Chandni Bhat, TOBI, [address] C.N.P., D.N.P. BHAVIN PATEL [phone] [place] [address] [place], [place] [phone] (Wo rk) Social History [...] How often do you attend buddhist or sikhism Never 10/23/2020 services? 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 [address] [place] [address] documented as of this encounter
--- OUTSIDE RECORDS SUMMARY | 2022-07-06 10:24 | XMS_ITS | Encounter Summary ---
:1995 Author Organization [facility] Address [address] [place] [address] Care Team Providers Name Role Phone Chandni Urbina APRN C.N.P., D.N.P. Primary Care Provider Reason for Referral Outpatient (Routine) - Closed Specialty Diagnoses / Procedures Referred By Contact Refer red To Contact Orthopedic Surgery Diagnoses Fracture Ankle Closed Initial Left Chandni Urbina, [facility] TOBI, C.N.P., D.N.P. [address] [place] [address] Referral ID Status Reason Start Date Expiration Date Visits Requ ested Visits Authorized [id number] Closed 02/20/2019 02/20/2020 1 1 Scheduling Instructions [...] Expiration Date Visits Requ ested Visits Authorized [id number] 1 1 Encounter Details Date Type Department Care Team Description 02/20/2019 Hospital Encounter [facility] MAIN OR Bruno Spivey Fracture Ankle [address] [facility] Jenn Baker M.D. Closed Initial Left [...] How often do you attend pentecostal or muslim Never 10/23/2020 services? 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 POST-OPERATIVE DIAGNOSIS Left ankle Church B fracture with syndesmotic disruption. PROCEDURE(S) Open reduction/internal fixation of left ankle fracture with syndesmotic fixation. SURGEON(S) Bruno Spivey M.D. ANESTHESIA TYPE Spinal anesthesia. EMPLOYMENT ATTORNEY: Chandni Urbina APRN, C.N.P., D.N.P. I requested [...] Implant Name Type Inv. Item Serial No. Hotel Housekeeper Lot No. [id number] No. Used Knotless TightRope Syndesmosis Repair Implant, Stainless Steel Ankle Implant Arthrex [id number] FTHRD LCK 4.0X16 - [id number] Hardware e.g. pins/screws/rods SCRW LCP ST FTHRD LCK 4.0X16 Depuy Synthes Left [address] FTHRD LCK 4.0X18 - [id number] Hardware e.g. pins/screws/rods SCRW LCP ST FTHRD LCK 4.0X18 Depuy Synthes Left 1 PLT FIB LCD 1/3 TUB 7H LCK 85 - [id number] Hardware e.g. pins/screws/rods PLT FIB LCD 1/3 TUB 7H LCK 85 Depuy Synthes Left [address] FTHRD 3.5X24 - [id number] Hardware e.g. pins/screws/rods SCRW DCP ST FTHRD 3.5X24 Depuy Synthes Left [address] FTHRD 3.5X10 - [id number] Hardware e.g. pins/screws/rods SCRW DCP ST FTHRD 3.5X10 Depuy Synthes Left [address] FTHRD 3.5X12 - S204.012 - [id number] Ankle Implant SCRW LCD ST FTHRD 3.5X12 [...] Role: * Bruno Spivey M.D. - Primary Kettle Girl: Chandni Urbina, TOBI, C.N.P., D.N.P. Anesthesia Type Regional Pre-operative Diagnosis * Fracture Ankle Closed Initial Left [O43.239J] Brief Operative Note Details Specimens None Drains None Estimated Blood Loss None Implants Implant Name Type Inv. Item Serial No. Hotel Housekeeper Lot No. [id number] No. Used Knotless TightRope Syndesmosis Repair Implant, Stainless Steel Ankle Implant Arthrex [id number] Left [address] FTHRD LCK 4.0X16 - [id number] Hardware e.g. pins/screws/rods SCRW LCP ST FTHRD LCK 4.0X16 Depuy Synthes Left [address] FTHRD LCK 4.0X18 - [id number] Hardware e.g. pins/screws/rods SCRW LCP ST FTHRD LCK 4.0X18 Depuy Synthes Left 1 PLT FIB LCD 1/3 TUB 7H LCK 85 - [id number] Hardware e.g. pins/screws/rods PLT FIB LCD 1/3 TUB 7H LCK 85 Depuy Synthes Left [address] FTHRD 3.5X24 - [id number] Hardware e.g. pins/screws/rods SCRW DCP ST FTHRD 3.5X24 Depuy Synthes Left [address] FTHRD 3.5X10 - [id number] Hardware e.g. pins/screws/rods SCRW DCP ST FTHRD 3.5X10 Depuy Synthes Left [address] FTHRD 3.5X12 - S204.012 - [id number] Ankle Implant SCRW LCD ST FTHRD 3.5X12 [...] Address City/State/ZIP Code Phon e Number [address] [facility] [place] documented in this encounter Visit [...] (Given - Provider: Pavan De Souza APRN, FISHER PURSE SEINE) 600 mg (rounded from 825 mg = [...] Verify - Provider: Pavan De Souza APRN, FISHER PURSE SEINE)1626 (Anesthesia Volume Adjustment - Provider: Pavan De [...] documented as of this encounter Care Teams Student Services Coordinator Relationship Specialty Start Date End Date Chandni Urbina, TOBI, C.N.P., PCP - General Family Medicine 06/06/19 D.N.P. [address] [place] [address] documented as of this encounter
--- OUTSIDE RECORDS SUMMARY | 2022-07-06 10:24 | XMS_ITS | Encounter Summary ---
:1995 Author Organization [facility] Address [address] [place] [address] Care Team Providers Name Role Phone Chandni Urbina APRN C.N.PGonzalo, D.N.P. Primary Care Provider Reason for Referral Outpatient (Routine) - Closed Specialty Diagnoses / Procedures Referred By Contact Refer red To Contact Emergency Medicine Diagnoses Fracture Fibula Shaft Oblique Displaced Closed Initial Left Jesus Sorenson APRN, [facility] C.N.P. [address] [place] [address] Referral ID Status Reason Start Date Expiration Date Visits Requ ested Visits Authorized [id number] Closed 02/16/2019 02/16/2020 1 1 Reason for Visit Reason Comments Ankle Injury left Encounter Details Date Type Department Care Team Description 02/15/2019 - Emergency [place] Jesus Sorenson, Fracture Fi bula Shaft 02/16/2019 Emergency Department TOBI, C.N.P. Oblique Displaced [id number] [place] [address] [address] [facility] Closed Initial [place] (Primary D x) [phone] Social History Tobacco Use Types Packs/Day [...] How often do you attend confucianist or jew Never 10/23/2020 services? 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 She was walking out of the [employer] when she states she heard a pop [...] signs of ischemic limb. 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 Performed by: ??DATA ENTRY PROCESSOR Location: ??Leg Leg: ??Left lower leg Circulation [...] t fibular fracture. Jesus Sorenson APRN, C.N.P. [facility] PRO CEDURES documented in this [...] as of this encounter Care Teams Certified Phlebotomist Relationship Specialty Start Date End Date Chandni Urbina, TOBI, C.N.P., PCP - General Family Medicine 06/06/19 D.N.P. [address] [place] [address] documented as of this encounter
--- OUTSIDE RECORDS SUMMARY | 2022-07-06 10:24 | XMS_ITS | Encounter Summary ---
:1995 Author Organization [facility] Address [address] [place] [address] Care Team Providers Name Role Phone Chandni Urbina APRN C.N.P., D.N.P. Primary Care Provider Reason for Referral Outpatient (Routine) - Closed Specialty Diagnoses / Procedures Referred By Contact Refer red To Contact Orthopedic Surgery Diagnoses Pain Ankle Left Edwige Lundberg, TOBI, [facility] C.N.P., D.N.P. [address] [place] [phone] Referral ID Status Reason Start Date Expiration Date Visits Requ ested Visits Authorized [id number] Closed 02/19/2019 02/19/2020 1 1 Scheduling Instructions Please schedule at 2:30 on March 06 with Edwige Lundberg. Encounter Details Date Type Department Care Team Description 02/19/2019 Orders Only Department of Edwige Lundberg Pain Ankle Left Orthopedic Surgery in [place] C.N.PGonzalo, (Prim celina Dx) Hakeem Genao, D.N.P. [address] [phone] Social History Tobacco Use Types Packs/Day Years [...] How often do you attend adventism or muslim Never 10/23/2020 services? 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 [address] [phone] documented as of this encounter
--- OUTSIDE RECORDS SUMMARY | 2022-07-06 10:24 | XMS_ITS | Encounter Summary ---
:1995 Author Organization [facility] Address [address] [place] [address] Care Team Providers Name Role Phone Chandni Urbina APRN, C.N.Mana, D.N.P. Primary Care Provider Reason for Visit Reason Comments Annual Exam Appointment Request (Routine) - Closed Specialty Diagnoses / Procedures Referred By Contact Refer red To Contact Family Medicine Referral ID Status Reason Start Date Expiration Date Visits Requ ested Visits Authorized [id number] Closed 10/09/2018 10/09/2019 1 Encounter Details Date Type Department Care Team Description 10/12/2018 Comprehensive Visit Department of Chandni Urbina Adult Examination Normal (Primary Dx); Family Medicine, Pina, TOBI, Counseling And Review Vaccination Status Charlotte C.N.PGonzalo, D.N.P. [facility], in [place] [address] [facility] [phone] [place], [place] (Work) [phone] Social History Tobacco Use [...] How often do you attend rastafari or mormon Never 10/23/2020 services? 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 encounter Last Filed Vital Signs Vital Sign Reading Time Taken Comments Blood Pressure 123/67 10/12/2018 8:57 AM CEPHALOMETRIC ANALYST Pulse 74 10/12/2018 8:57 AM CEPHALOMETRIC ANALYST Temperature 36.8 ??C (98.2 ??F) 10/12/2018 8:57 AM CEPHALOMETRIC ANALYST Respiratory Rate 20 10/12/2018 8:57 AM CEPHALOMETRIC ANALYST Oxygen Saturation 98% 10/12/2018 8:57 AM CEPHALOMETRIC ANALYST Inhaled Oxygen Concentration - - Weight 106 kg (234 lb 5.6 oz) 10/12/2018 8:57 AM CEPHALOMETRIC ANALYST Height 168 cm (5' 6.14) 10/12/2018 8:57 AM CEPHALOMETRIC ANALYST Body Mass Index 37.66 10/12/2018 8:57 AM CEPHALOMETRIC ANALYST documented in this encounter H&P Notes Chandni [...] the content. Chandni Urbina APRN, C.N.P., D.N.P. ALOMETRIC ANALYST documented in this encounter Plan of Treatment Not on filedocumented as of this encounter Procedures Procedure Name Priority Date/Time Associated Diagnosis Comme nts QUANTIFERON-TB GOLD Routine 10/12/2018 9:57 AM Counseling And Results for this PLUS, B CEPHALOMETRIC ANALYST Review Vaccination procedure are in Status the results section. MMRV IMMUNE STATUS Routine 10/12/2018 9:39 AM Counseling And R esults for this PROFILE CEPHALOMETRIC ANALYST Review Vaccination procedure are in Status the results section. HEPATITIS B SURFACE Routine 10/12/2018 9:39 AM Counseling And Results for this ANTIGEN CEPHALOMETRIC ANALYST Review Vaccination procedure are in Status the results section. documented in this encounter Results QuantiFERON-Tb Gold Plus, Blood (10/12/2018 9:57 AM CEPHALOMETRIC ANALYST) P athologist Signature QuantiFERON-TB Negative Negative 10/16/2018 [facility] Gold Plus 11:27 AM CEPHALOMETRIC ANALYST [facility] Comment: No interferon-gamma response to [...] minus Nil 0.00 IU/mL 10/16/2018 11:27 AM CEPHALOMETRIC ANALYST [facility] TB2 Ag minus Nil 0.00 IU/mL 10/16/2018 11:27 AM CEPHALOMETRIC ANALYST [facility] Mitogen minus Nil >10.00 IU/mL 10/16/2018 11:27 AM CS T [facility] Nil Result 0.02 IU/mL 10/16/2018 11:27 AM CEPHALOMETRIC ANALYST [facility] Specimen Anatomical Collection Method Collection Time Receive d Time (Source) Location / / Volume Laterality Blood (Blood, 10/12/2018 9:57 AM 10/14/19 3:14 Venous) CEPHALOMETRIC ANALYST PM CEPHALOMETRIC ANALYST Narrative [facility] - 10/16/2018 11:27 AM CEPHALOMETRIC ANALYST Specimen Information: Specimen ID: [id number] Specimen Type: Blood Specimen Collection Start Date: 10/12/19 ??9:57 AM Specimen Received Date: 10/13/2018 ??3:14 PM Specimen ID: [id number] Specimen Type: Blood Specimen Collection Start Date: 10/12/19 ??9:58 AM Specimen Received Date: 10/13/2018 ??3:14 PM Specimen ID: [id number] Specimen Type: Blood Specimen Collection Start Date: 10/12/19 ??9:58 AM Specimen Received Date: 10/13/2018 ??3:14 PM Specimen ID: [id number] Specimen Type: Blood Specimen Collection Start Date: 10/12/19 ??9:57 AM Specimen Received Date: 10/13/2018 ??3:14 PM Chandni Urbina APRN C.N.P., D.N.P. LAB MICROBIOLOGY - BLOOD ORDERABLES Performing Organization Address City/State/ZIP Code Phon e Number [facility] [address] [facility] [address] [facility] MMRV Immune Status Profile (10/12/2018 9:39 AM CEPHALOMETRIC ANALYST) P athologist Signature Measles Positive 10/13/2018 [facility] ([place]) Ab, 11:36 AM [facility] IgG, S [facility] Comment: Results suggest response to immunization or prior exposure to the virus. ----REFERENCE VALUE---- Vaccinated: Positive (>=1.1 AI) Unvaccinated: Negative (<=0.8 AI) Measles IgG Antibody 4.7 10/13/2018 11:[address] [facility] LAB Mumps Ab, IgG, S Positive 10/13/2018 11:36 AM [facility] Comment: Results suggest response to immunization or prior exposure to the virus. ----REFERENCE VALUE---- Vaccinated: Positive (>=1.1 AI) Unvaccinated: Negative (<=0.8 AI) Mumps IgG Antibody 1.7 10/13/2018 11:36 AM [facility] LAB Rubella Ab, IgG, S Positive 10/13/2018 11:36 AM C [facility] Comment: Results suggest response to immunization or prior exposure to the virus. ----REFERENCE VALUE---- Vaccinated: Positive (>=1.0 AI) Unvaccinated: Negative (<=0.7 AI) Rubella IgG Antibody 2.2 10/13/2018 11:[address] [facility] LAB Varicella-Zoster Ab, Positive 10/13/2018 11:36 AM [facility] IgG, S [facility] Comment: Results suggest response to immunization or prior exposure to the virus. ----REFERENCE VALUE---- Vaccinated: Positive (>=1.1 AI) Unvaccinated: Negative (<=0.8 AI) Varicella IgG Antibody 3.3 10/13/2018 11:36 AM CEPHALOMETRIC ANALYST [facility] LAB Specimen Anatomical Collection Method Collection Time Receive d Time (Source) Location / / Volume Laterality Blood (Blood, 10/12/2018 9:39 AM 10/12/19 19 2:26 Venous) CEPHALOMETRIC ANALYST PM CEPHALOMETRIC ANALYST Mitchell Geller APRN.N.P., D.N.P. LAB MICROBIOLOGY - BLOOD ORDERABLES Performing Organization Address [facility] Phon e Number [phone] [place] [address] LAB Hepatitis B Surface Antigen (10/12/2018 9:39 AM CEPHALOMETRIC ANALYST) [facility] Method Time Signature HBs Antigen, Nonreactive Nonreactive 10/13/2018 [facility] S 11:52 AM CEPHALOMETRIC ANALYST [facility] Specimen Anatomical Collection Method Collection Time Receive d Time (Source) Location / / Volume Laterality Blood (Blood, 10/12/2018 9:39 AM 10/12/19 19 2:26 Venous) CEPHALOMETRIC ANALYST PM CEPHALOMETRIC ANALYST Mitchell Geller APRN.N.P., D.N.P. LAB MICROBIOLOGY - BLOOD ORDERABLES Performing Organization Address [facility] Phon e Number [address] LAB documented in this encounter Visit Diagnoses Diagnosis Well Adult Examination Normal - Primary Counseling And Review Vaccination Status documented in this encounter Additional Health Concerns Assessment Noted Time PHQ-9 Depression Total Score: 15 10/11/2018 12:[address] documented as of this encounter Care Teams Interactive Media Designer Relationship Specialty Start Date End Date Chandni Urbina APRN, C.N.P., PCP - General Family Medicine 06/06/19 D.N.P. [address] [phone] documented as of this encounter
--- OUTSIDE RECORDS SUMMARY | 2022-07-06 10:24 | XMS_ITS | Encounter Summary ---
:1995 Author Organization [facility] Address [address] [place] [address] Care Team Providers Name Role Phone Chandni Urbina APRN, C.N.P., D.N.P. Primary Care Provider Reason for Visit Outpatient (Routine) - Closed Specialty Diagnoses / Procedures Referred By Contact Refer red To Contact Emergency Medicine Diagnoses Fracture Fibula Shaft Oblique Displaced Closed Initial Left Jesus Sorenson APRN, [facility] C.N.P. 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 [address] [place] [address] documented as of this encounter
--- OUTSIDE RECORDS SUMMARY | 2022-07-06 10:24 | XMS_ITS | Encounter Summary ---
:1995 Author Organization [facility] Address [address] [place] [address] Care Team Providers Name Role Phone Chandni Urbina APRN C.N.P., D.N.P. Primary Care Provider Reason for Visit Outpatient (Routine) - Closed Specialty Diagnoses / Procedures Referred By Contact Refer red To Contact Diagnoses Radiculopathy Lumbar Lizzie June II, M.D. [facility] Procedures EMG [address] [place] [phone] Referral ID Status Reason Start Date Expiration Date Visits Requ ested Visits Authorized [id number] Closed 12/23/2017 06/21/2018 1 1 Encounter Details Date Type Department Care Team Description 03/01/2018 Diagnostic Department of Neurology Chloe Han, Radiculopathy Lumbar in [place] DGonzaloOGonzalo [address] [facility] 701 [place] [phone] [place] [phone] [address] (Wo rk) Social History Tobacco Use [...] How often do you attend druze or evangelical Never 10/23/2020 services? 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 Final Report Study Number: 1 EMG Meatman: Chloe Han Referred by: LIZZIE JUNE II ([phone]) Referred for: Query lumbar radiculopathy on the [...] as of this encounter Care Teams Lead Tank Mechanic Relationship Specialty Start Date End Date Chandni Urbina, TOBI, C.N.P., PCP - General Family Medicine 06/06/19 D.N.P. [address] [place] [phone] documented as of this encounter
--- OUTSIDE RECORDS SUMMARY | 2022-07-06 10:24 | XMS_ITS | Encounter Summary ---
:1995 Author Organization [facility] Address [address] [place] [address] Care Team Providers Name Role Phone Chandni Urbina APRN, C.N.P., D.N.P. Primary Care Provider Reason for Visit Appointment Request (Routine) - Closed Specialty Diagnoses / Procedures Referred By Contact Refer red To Contact Family Medicine Referral ID Status Reason Start Date Expiration Date Visits Requ ested Visits Authorized [id number] Closed 06/13/2018 06/13/2019 1 Encounter Details Date Type Department Care Team Description 06/13/2018 Immunization Department of Family Chandni Urbina, munization Only Medicine, Hakeem BRITTON, C.N.P., (Primary D x) [facility], in D.N.P. [address] [address] [place], [place] [phone] [address] (Work) [phone] Social History Tobacco Use Types Packs/Day Years [...] How often do you attend samaritan or yazidi Never 10/23/2020 services? 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 [address] [place] [address] documented as of this encounter
--- OUTSIDE RECORDS SUMMARY | 2022-07-06 10:24 | XMS_ITS | Encounter Summary ---
:1995 Author Organization [facility] Address [address] [place] [address] Care Team Providers Name Role Phone Chandni Urbina APRN C.N.Rodrigo., D.N.P. Primary Care Provider Reason for Visit Reason Comments Sore Throat For a week now, states it is effecting her breathing/asthma Appointment Request (Routine) - Closed Specialty Diagnoses / Procedures Referred By Contact Refer red To Contact Family Medicine Referral ID Status Reason Start Date Expiration Date Visits Requ ested Visits Authorized [id number] Closed 01/23/2019 01/23/2020 1 Encounter Details Date Type Department Care Team Description 01/23/2019 Office Visit Department of Family Ashleigh Talley ma Mild Intermittent With Acute Exacerbation (HCC) (Primary Dx); Medicine, Hakeem Ludwig PMavis Sore Throat [facility], [place] [phone] [place] [address] [place], [place] (Work) [phone] Social History Tobacco Use [...] How often do you attend congregational or worship Never 10/23/2020 services? 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 [address] [place] [address] documented as of this encounter
--- OUTSIDE RECORDS SUMMARY | 2022-07-06 10:25 | XMS_ITS | Encounter Summary ---
:1995 Author Organization [facility] Address [address] [place] [address] Care Team Providers Name Role Phone Holley Saucedo APRN, C.N.P. Primary Care Provider [phone] Reason for Visit Reason Comments Med Refill Encounter Details Date Type Department Care Team Description 11/04/2017 Refill Department of [facility] Holley Saucedo APRN, Med Refill Medicine, [place] [facility], in [address] [place] [address] [place], [place] [address] [phone] Social History Tobacco Use Types Packs/Day Years [...] How often do you attend congregation or jain Never 10/23/2020 services? 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 PCP - General 01/27/17 12/09/17 documented as of this encounter
--- OUTSIDE RECORDS SUMMARY | 2022-07-06 10:25 | XMS_ITS | Encounter Summary ---
:1995 Author Organization [facility] Address [address] [place] [address] Care Team Providers Name Role Phone Holley Saucedo APRN, C.N.P. Primary Care Provider [phone] Reason for Visit Reason Comments Follow-up Patient is here to update wo rk restrictions for left hip pain. Appointment Request (Routine) - Closed Specialty Diagnoses / Procedures Referred By Contact Refer red To Contact Family Medicine Referral ID Status Reason Start Date Expiration Date Visits Requ ested Visits Authorized [id number] Closed 10/11/2017 04/09/2018 1 1 Encounter Details Date Type Department Care Team Description 10/12/2017 Office Visit Department of Family Chandni Urbina Pa in Hip Left (Primary Medicine, [place] TOBI, C.N.P., Dx) Clinic, in [place] [address] [address] [phone] Social History Tobacco Use Types Packs/Day Years [...] How often do you attend episcopal or yarsani Never 10/23/2020 services? Do you [...] at Date Recorded Female 08/12/2017 10:51 AM CONTEMPORARY OR MODERN DANCER documented as of this encounter Last Filed Vital Signs Vital Sign Reading Time Taken Comments Blood Pressure 113/62 10/12/2017 2:32 PM CONTEMPORARY OR MODERN DANCER Pulse 74 10/12/2017 2:32 PM CONTEMPORARY OR MODERN DANCER Temperature 36.5 ??C (97.7 ??F) 10/12/2017 2:32 PM CONTEMPORARY OR MODERN DANCER Respiratory Rate 16 10/12/2017 2:32 PM CONTEMPORARY OR MODERN DANCER Oxygen Saturation 97% 10/12/2017 2:32 PM CONTEMPORARY OR MODERN DANCER Inhaled Oxygen Concentration - - Weight 99.3 kg (218 lb 14.7 oz) 10/12/2017 2:32 PM CONTEMPORARY OR MODERN DANCER Height - - Body Mass Index 35.33 08/31/2017 4:59 PM CONTEMPORARY OR MODERN DANCER documented in this encounter Progress Notes Chandni [...] a in the family. She has tried qclm-nqv-wsopqac medications as well asphysical therapy without significant improvement of symptoms. She has previously been on work restrictions - lifting no more than 25 lb at a time with minimal bending and kneeling squatting or twisting. 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 Brief Review of Systems: A brief [...] the content. Chandni Urbina APRN, C.N.P., D.N.P. EMPORARY OR MODERN DANCER documented in this encounter Plan of Treatment Not on filedocumented as of this encounter Visit Diagnoses Diagnosis Pain Hip Left - Primary documented in this encounter Additional Health Concerns Assessment Noted Time PHQ-9 Depression Total Score: 9 08/30/2017 4:00 PM CONTEMPORARY OR MODERN DANCER documented as of this encounter Care Teams Insulation Cupola Charger Relationship Specialty Start Date End Date Holley Saucedo APRN, C.N.P. PCP - General 01/27/17 12/09/17 documented as of this encounter
--- OUTSIDE RECORDS SUMMARY | 2022-07-06 10:25 | XMS_ITS | Encounter Summary ---
:1995 Author Organization [facility] Address [address] [place] [address] Care Team Providers Name Role Phone Chandni Urbina APRN C.N.P., D.N.P. Primary Care Provider Reason for Referral Outpatient (Routine) - Closed Specialty Diagnoses / Procedures Referred By Contact Refer red To Contact Diagnoses Radiculopathy Lumbar Lizzie June II, M.D. [facility] Procedures EMG [address] [place] [address] [phone] Referral ID Status Reason Start Date Expiration Date Visits Requ ested Visits Authorized [id number] Closed 12/23/2017 06/21/2018 1 1 Reason for Visit Reason Comments Back Pain low back pain, left hip pain , with shooting pain and numbness down the left leg Encounter Details Date Type Department Care Team Description 12/23/2017 Hospital Encounter Department of Pain Lizzie June Ra diculopathy Lumbar (Primary Dx); Medicine in [place] EV[place] M.D. Pain Hip Left; [place], [place] [address] [facility] Weakness Leg Left [address] [place] [phone] Social History Tobacco Use Types Packs/Day Years [...] How often do you attend sabianist or caodaism Never 10/23/2020 services? 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 She lives in the [facility]. She has a certified midwife. PHYSICAL EXAMINATION GENERAL: The patient is awake, [...] ? Final Report Study Number: [address] Sql Programmer: Chloe Han Referred by: LIZZIE JUNE II ([phone]) Referred for: Query lumbar radiculopathy on the [...] documented as of this encounter Care Teams Personal Injury Legal Assistant Relationship Specialty Start Date End Date Chandni Urbina APRN, C.N.P., PCP - General Family Medicine 06/06/19 D.N.P. [address] [place] [address] documented as of this encounter
--- OUTSIDE RECORDS SUMMARY | 2022-07-06 10:25 | XMS_ITS | Encounter Summary ---
:1995 Author Organization [facility] Address [address] [place] [address] Care Team Providers Name Role Phone Holley Saucedo APRN C.NGonzaloPGonzalo Primary Care Provider [phone] Encounter Details Date Type Department Care Team Description 10/27/2017 Hospital Encounter Department of Charisma Castellon [facility] [phone] Social History Tobacco Use Types Packs/Day Years [...] How often do you attend caodaism or islam Never 10/23/2020 services? 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 PCP - General 01/27/17 12/09/17 documented as of this encounter
--- OUTSIDE RECORDS SUMMARY | 2022-07-06 10:25 | XMS_ITS | Encounter Summary ---
:1995 Author Organization [facility] Address [address] [place] [address] Care Team Providers Name Role Phone Chandni Urbina APRN, C.N.Rodrigo., D.N.P. Primary Care Provider Encounter Details Date Type Department Care Team Description 12/13/2017 Orders Only Department of Pain Charisma Castellon, Medicine in [facility] [address] [place] [address] [phone] Social History Tobacco Use Types Packs/Day Years [...] How often do you attend protestant or alevism Never 10/23/2020 services? 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 [address] [place] [address] documented as of this encounter
--- OUTSIDE RECORDS SUMMARY | 2022-07-06 10:25 | XMS_ITS | Encounter Summary ---
:1995 Author Organization [facility] Address [address] [place] [address] Care Team Providers Name Role Phone Chandni Urbina APRN C.N.Rodrigo., D.N.P. Primary Care Provider Reason for Visit Reason Comments Communication Encounter Details Date Type Department Care Team Description 11/21/2017 Clinical Department of Ravinder, Communication Communication Gastroenterology in [place], [place] P.A.-C. 701 [facility] 701 [place] [address] [place], [place] [phone] [address] Social History Tobacco Use Types Packs/Day [...] How often do you attend evangelical or sabianist Never 10/23/2020 services? 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 Return to work for 4 hours per day until shemeets with Dr. Adkins. Patient can be reached at [phone] with any questions, thank you. documented in this encounter Plan of Treatment Not on filedocumented as of this encounter Visit Diagnoses Not on filedocumented in this encounter Additional Health Concerns Assessment Noted Time PHQ-9 Depression Total Score: 10 11/03/2017 4:00 PM CD T documented as of this encounter Care Teams City Editor Relationship Specialty Start Date End Date Chandni Urbina, TOBI, C.N.P., PCP - General Family Medicine 06/06/19 D.N.P. 701 [place] [address] documented as of this encounter
--- OUTSIDE RECORDS SUMMARY | 2022-07-06 10:25 | XMS_ITS | Encounter Summary ---
:1995 Author Organization [facility] Address [address] [place] [address] Care Team Providers Name Role Phone Holley Saucedo APRN, C.NGonzaloPGonzalo Primary Care Provider [phone] Encounter Details Date Type Department Care Team Description 11/03/2017 Orders Only Department of Charisma Castellon Pain Low Back Orthopedic Surgery in J, P.AGonzalo-C. (Primary Dx) [address] [phone] Social History Tobacco Use Types Packs/Day Years [...] How often do you attend temple or taoist Never 10/23/2020 services? 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 PCP - General 01/27/17 12/09/17 documented as of this encounter
--- OUTSIDE RECORDS SUMMARY | 2022-07-06 10:25 | XMS_ITS | Encounter Summary ---
:1995 Author Organization [facility] Address [address] [place] [address] Care Team Providers Name Role Phone Holley Saucedo APRN C.NGonzaloPGonzalo Primary Care Provider [phone] Encounter Details Date Type Department Care Team Description 10/27/2017 Hospital Encounter Department of Charisma Castell[facility] [phone] Social History Tobacco Use Types Packs/Day Years [...] How often do you attend baptist or mosque Never 10/23/2020 services? Do you [...] at Date Recorded Female 08/12/2017 10:51 AM POTASH FLAKER documented as of this encounter Medications at [...] Depression Total Score: 9 08/30/2017 4:00 PM POTASH FLAKER documented as of this encounter Care Teams Senior Sql Dba Relationship Specialty Start Date End Date Holley Saucedo APRN, C.N.P. PCP - General 01/27/17 12/09/17 documented as of this encounter
--- OUTSIDE RECORDS SUMMARY | 2022-07-06 10:25 | XMS_ITS | Encounter Summary ---
:1995 Author Organization [facility] Address [address] [place] [address] Care Team Providers Name Role Phone Holley Saucedo APRN, C.N.P. Primary Care Provider [phone] Encounter Details Date Type Department Care Team Description 11/15/2017 Orders Only Department of [facility] Holley Saucedo, Medicine, [place] TOBI, C.N .P. Clinic, in [address] [place] [address] [place], [place] [address] [phone] Social History Tobacco Use Types Packs/Day Years [...] How often do you attend advent or sikh Never 10/23/2020 services? 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 PCP - General 01/27/17 12/09/17 documented as of this encounter
--- OUTSIDE RECORDS SUMMARY | 2022-07-06 10:25 | XMS_ITS | Encounter Summary ---
:1995 Author Organization [facility] Address [address] [place] [address] Care Team Providers Name Role Phone Holley Saucedo APRN C.N.P. Primary Care Provider [phone] Reason for Visit Reason Comments Communication Encounter Details Date Type Department Care Team Description 11/03/2017 Clinical Communication Department of Mani Castellon Communication Orthopedic Surgery J, PGonzaloADerrek in [address] [address] [place], [place] [phone] [address] (Work) [phone] Social History Tobacco Use Types Packs/Day Years [...] How often do you attend yazidi or methodist Never 10/23/2020 services? Do you [...] at Date Recorded Female 08/12/2017 10:51 AM HOOKER ON documented as of this encounter Plan of Treatment Not on filedocumented as of this encounter Visit Diagnoses Not on filedocumented in this encounter Additional Health Concerns Assessment Noted Time PHQ-9 Depression Total Score: 10 11/03/2017 4:00 PM CD T documented as of this encounter Care Teams Mold Shifter Relationship Specialty Start Date End Date Holley Saucedo APRN, C.N.P. PCP - General 01/27/17 12/09/17 documented as of this encounter
--- OUTSIDE RECORDS SUMMARY | 2022-07-06 10:25 | XMS_ITS | Encounter Summary ---
:1995 Author Organization [facility] Address [address] [place] [address] Care Team Providers Name Role Phone Chandni Urbina APRN, C.N.Mana, D.N.P. Primary Care Provider Reason for Visit Reason Comments Hip Pain Follow up left hip pain. Brittny verduzco work restrictions reviewed. Appointment Request (Routine) - Closed Specialty Diagnoses / Procedures Referred By Contact Refer red To Contact Family Medicine Referral ID Status Reason Start Date Expiration Date Visits Requ ested Visits Authorized [id number] Closed 01/05/2018 01/05/2019 1 Encounter Details Date Type Department Care Team Description 01/06/2018 Office Visit Department of Family Chandni Urbina He rniated Disc Lumbar (Primary Dx); Medicine, [place] TOBI C.N.PGonzalo, Pain Low Back Clinic, in [place] [address] [phone] Social History Tobacco Use Types Packs/Day Years [...] How often do you attend latter-day or christian Never 10/23/2020 services? 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 Adkins for ongoing low back pain related to her herniated disc. She plans to see him back in the clinic after her scheduled EMG on03/01/18. She last saw Dr. Adkins on 12/23/17. She has been doing physical therapy, OTC medication management, ice/heat, gentle stretching, and rest. 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 She also picks up in Dietary here in the [facility]. She would like to return to work. She believes that she'll be able to work downstairs for a full 8 hours, but probably not in long term dueto the heavy lifting required. 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 She is unable to work at [place] [email or web address] until further notice and guidance from Pain [...] documented as of this encounter Care Teams Shank Stapler Relationship Specialty Start Date End Date Chandni Urbina APRN, C.N.P., PCP - General Family Medicine 06/06/19 D.N.P. [address] [place] [phone] documented as of this encounter
--- OUTSIDE RECORDS SUMMARY | 2022-07-06 10:25 | XMS_ITS | Encounter Summary ---
:1995 Author Organization [facility] Address [address] [place] [address] Care Team Providers Name Role Phone Holley Saucedo APRN C.N.P. Primary Care Provider [phone] Reason for Referral MRI/CAT/PET Scan (Routine) - Closed Specialty Diagnoses / Procedures Referred By Contact Refer red To Contact Radiology Diagnoses Pain Low Back Unspecified Charisma Castellon [facility] [place] [facility] Procedures MR Lumbar Spine without IV Contrast P.A.-C. [address] [place] [address] Referral ID Status Reason Start Date Expiration Date Visits Requ ested Visits Authorized Closed 10/27/2017 04/25/2018 1 1 Reason for Visit MRI/CAT/PET Scan (Routine) - Closed Specialty Diagnoses / Procedures Referred By Contact Refer red To Contact Radiology Diagnoses Pain Low Back Unspecified Charisma Castellon [facility] [place] [facility] Procedures MR Lumbar Spine without IV Contrast P.A.-C. [address] [place] [address] Referral ID Status Reason Start Date Expiration Date Visits Requ ested Visits Authorized Closed 10/27/2017 04/25/2018 1 1 Encounter Details Date Type Department Care Team Description 10/27/2017 Hospital Encounter Department of Charisma Castellon in Low Back Radiology in [place] P.A.-C. [address] [place] [phone] [phone] Social History Tobacco Use Types Packs/Day Years [...] How often do you attend yarsani or sikhism Never 10/23/2020 services? Do you [...] at Date Recorded Female 08/12/2017 10:51 AM WAFER CLEANER documented as of this encounter Medications at [...] Depression Total Score: 9 08/30/2017 4:00 PM WAFER CLEANER documented as of this encounter Care Teams Nuclear Security Officer Relationship Specialty Start Date End Date Holley Saucedo APRN, C.N.P. PCP - General 01/27/17 12/09/17 documented as of this encounter
--- OUTSIDE RECORDS SUMMARY | 2022-07-06 10:25 | XMS_ITS | Encounter Summary ---
:1995 Author Organization [facility] Address [address] [place] [address] Care Team Providers Name Role Phone Holley Saucedo APRN, C.N.P. Primary Care Provider Encounter Details Date Type Department Care Team Description 09/23/2017 Orders Only Department of [facility] Holley Saucedo n Hip Left (Primary Medicine, [place] TOBI Baker, C.N.P. Dx) Clinic, in [address] [place] [address] [place], [place] (Work) [address] [phone] Social History Tobacco Use Types Packs/Day Years [...] How often do you attend faith or hinduism Never 10/23/2020 services? 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 PCP - General 01/27/17 12/09/17 documented as of this encounter
--- OUTSIDE RECORDS SUMMARY | 2022-07-06 10:25 | XMS_ITS | Encounter Summary ---
:1995 Author Organization [facility] Address [address] [place] [address] Care Team Providers Name Role Phone Holley Saucedo APRN C.NGonzaloPGonzalo Primary Care Provider [phone] Reason for Referral MRI/CAT/PET Scan (Routine) - Closed Specialty Diagnoses / Procedures Referred By Contact Refer red To Contact Radiology Diagnoses Pain Low Back Unspecified Charisma Castellon, [facility] Procedures MR Lumbar Spine without IV Contrast P.AGonzalo-C. [address] [place] [phone] Referral ID Status Reason Start Date Expiration Date Visits Requ ested Visits Authorized [id number] Closed 10/27/2017 04/25/2018 1 1 Reason for Visit Reason Comments Pain Encounter Details Date Type Department Care Team Description 10/27/2017 Office Visit Department of Charisma Castellon Pain Hip Left (Primary Dx); Orthopedic Surgery in [place] Pain Low Back [place], [place] 701 [facility] 701 [place], [place] [phone] Social History Tobacco Use Types Packs/Day Years [...] How often do you attend episcopalian or denominational Never 10/23/2020 services? 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 - 10/27/2017 12:00 AM CDT SUBJECTIVE REASON FOR CONSULT Low back pain and left hip pain. 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 She began having what she refers [...] dysfunction. She has tried physical therapy in [place] for the past 2 months, also anti-inflammatories. ALLERGIES/CONTRAINDICATIONS Cefexime. MEDICAL HISTORY As noted in the EMR. 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 She is a nonsmoker but had smoked [...] procedure and that was sent to the [place] outpatient pharmacy per her request. Physical therapy ordered for her lumbar spine. She should work on a back strengthening stabilizationprogram and I think she should do this long-term, especially if she is going to work as a HAND STITCHER. Will await MRI results when considering return [...] counseling and coordination of care. Job ID: [id number] documented in this encounter Miscellaneous Notes Telephone Encounter - Charisma Castellon P.A.-C. - 10/27/2017 12:00 AM CDT I have contacted the patient with her MRI results which she was able to review on patient portal. Patient has had ongoing back pain. She rates it 5 to 6/10 at baseline for her most of the time and she has been off work as a HAND STITCHER since June. She was initially being followed [...] she does go to school for her 3D SPECIALIST degree. 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 Job ID: [id number] documented in this encounter Plan of Treatment [...] Depression Total Score: 9 08/30/2017 4:00 PM COMBER TENDER documented as of this encounter Care Teams Fur Machine Operator Relationship Specialty Start Date End Date Holley Saucedo APRN, C.N.P. PCP - General 01/27/17 12/09/17 documented as of this encounter
--- OUTSIDE RECORDS SUMMARY | 2022-07-06 10:25 | XMS_ITS | Encounter Summary ---
:1995 Author Organization [facility] Address [address] [place] [address] Care Team Providers Name Role Phone Holley Saucedo APRN, C.N.P. Primary Care Provider [phone] Reason for Visit Reason Comments Communication ACT updated-within guideline s Encounter Details Date Type Department Care Team Description 11/03/2017 Clinical Department of Eros Zurita (ACT Communication Family MedicineRosi updated-within [place] [address] [facility]) [facility], in [place], [place] [address] [place] [address] [facility] (Work) [place] [address] Social History Tobacco Use Types [...] How often do you attend muslim or catholic Never 10/23/2020 services? Do you [...] at Date Recorded Female 08/12/2017 10:51 AM WRAPPER STITCHER documented as of this encounter Miscellaneous Notes [...] documented as of this encounter Care Teams Kidney Puller Relationship Specialty Start Date End Date Holley Saucedo APRN, C.N.P. PCP - General 01/27/17 12/09/17 documented as of this encounter
--- OUTSIDE RECORDS SUMMARY | 2022-07-06 10:25 | XMS_ITS | Encounter Summary ---
:1995 Author Organization [facility] Address [address] [place] [address] Care Team Providers Name Role Phone Holley Saucedo APRN, C.N.P. Primary Care Provider [phone] Encounter Details Date Type Department Care Team Description 11/21/2017 Orders Only [facility], Brandon Marcum M .D. [address] [address] Social History Tobacco Use [...] How often do you attend synagogue or protestant Never 10/23/2020 services? 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 PCP - General 01/27/17 12/09/17 documented as of this encounter
--- OUTSIDE RECORDS SUMMARY | 2022-07-06 10:25 | XMS_ITS | Encounter Summary ---
:1995 Author Organization [facility] Address [address] [place] [address] Care Team Providers Name Role Phone Holley Saucedo APRN C.N.P. Primary Care Provider [phone] Encounter Details Date Type Department Care Team Description 11/03/2017 Orders Only Department of Argelia Vogel Pain Back (Primary Dx) Orthopedic Surgery in [place], [address] [phone] [phone] Social History Tobacco Use Types Packs/Day Years [...] How often do you attend alevism or baptism Never 10/23/2020 services? 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 PCP - General 01/27/17 12/09/17 documented as of this encounter
--- OUTSIDE RECORDS SUMMARY | 2022-07-06 10:25 | XMS_ITS | Encounter Summary ---
:1995 Author Organization [facility] Address [address] [place] [address] Care Team Providers Name Role Phone Chandni Urbina APRN C.N.P., D.N.P. Primary Care Provider Encounter Details Date Type Department Care Team Description 12/19/2017 Orders Only Department of Family Chandni Urbina AP RN, Medicine, [place] C.N.P., D .N.P. Clinic, in [address] [phone] [place] [address] [place], [place] [address] [phone] Social History Tobacco Use Types Packs/Day Years [...] How often do you attend synagogue or worship Never 10/23/2020 services? Do you [...] at Date Recorded Female 08/12/2017 10:51 AM POND TENDER documented as of this encounter Plan of Treatment Not on filedocumented as of this encounter Visit Diagnoses Not on filedocumented in this encounter Additional Health Concerns Assessment Noted Time PHQ-9 Depression Total Score: 10 11/03/2017 4:00 PM CD T documented as of this encounter Care Teams Hollow Tile Partition Erector Relationship Specialty Start Date End Date Chandni Urbina, TOBI, C.N.P., PCP - General Family Medicine 06/06/19 D.N.P. [address] [place] [address] documented as of this encounter
--- OUTSIDE RECORDS SUMMARY | 2022-07-06 10:25 | XMS_ITS | Encounter Summary ---
:1995 Author Organization [facility] Address [address] [place] [address] Care Team Providers Name Role Phone Holley Saucedo APRN, C.N.P. Primary Care Provider Reason for Visit Reason Comments Communication Encounter Details Date Type Department Care Team Description 11/03/2017 Clinical Communication Department of Samuel Stubbs Communication Medicine, [facility], in [address] [facility] [phone] [place] [address] [place], [place] (Work) [phone] Social History Tobacco Use [...] How often do you attend lutheran or shinto Never 10/23/2020 services? 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 PCP - General 01/27/17 12/09/17 documented as of this encounter
--- OUTSIDE RECORDS SUMMARY | 2022-07-06 10:25 | XMS_ITS | Encounter Summary ---
:1995 Author Organization [facility] Address [address] [place] [address] Care Team Providers Name Role Phone Amanda Arreola APRN, C.N.P. Primary Care Provider [phone] Reason for Visit Reason Comments Sore Throat Since tuesday. Chills, head ache, left ear pressure since yesterday, achy neck. Encounter Details Date Type Department Care Team Description 10/06/2017 Office Visit Department of Amanda Newman Sor e Throat (Primary Dx); Medicine, Hakeem Baker APRN, C.N.P. Effusion Ear Middle Left; [facility], in [address] [place] [address] Chills Without Fever; [place], [place] [address] Headache Benign [place] [phone] [place] [address] (Work) [place] [address] Social History Tobacco Use Types [...] How often do you attend latter-day or jewish Never 10/23/2020 services? Do you [...] at Date Recorded Female 08/12/2017 10:51 AM ROVING DEPARTMENT SUPERVISOR documented as of this encounter Last Filed Vital Signs Vital Sign Reading Time Taken Comments Blood Pressure 113/67 10/06/2017 8:42 AM ROVING DEPARTMENT SUPERVISOR Pulse 108 10/06/2017 8:42 AM ROVING DEPARTMENT SUPERVISOR Temperature 37.4 ??C (99.3 ??F) 10/06/2017 8:42 AM ROVING DEPARTMENT SUPERVISOR Respiratory Rate 18 10/06/2017 8:42 AM ROVING DEPARTMENT SUPERVISOR Oxygen Saturation 97% 10/06/2017 8:42 AM ROVING DEPARTMENT SUPERVISOR Inhaled Oxygen Concentration - - Weight 99 kg (218 lb 4.1 oz) 10/06/2017 8:42 AM ROVING DEPARTMENT SUPERVISOR Height - - Body Mass Index 35.23 08/31/2017 4:59 PM ROVING DEPARTMENT SUPERVISOR documented in this encounter Progress Notes Amanda [...] Middle Left She was instructed to use [id number] daily Claritin for 7-10 days for symptom [...] Coughing up mucus (phlegm): Yes Wheezing: Yes NG DEPARTMENT SUPERVISOR documented in this encounter Miscellaneous Notes Addendum Note - Amanda Arreola APRN, C.N.P. - 10/06/2017 8:45 AM ROVING DEPARTMENT SUPERVISOR Addended by: AMANDA ARREOLA on: 10/06/2017 09:43 AM Modules accepted: Orders NG DEPARTMENT SUPERVISOR documented in this encounter Plan of Treatment Not on filedocumented as of this encounter Procedures Procedure Name Priority Date/Time Associated Diagnosis Comme nts RAPID STREP A Routine 10/06/2017 9:07 AM Sore Throat Results for this SCREEN ROVING DEPARTMENT SUPERVISOR procedure are i n the results section. documented in this encounter Results (ABNORMAL) Rapid Strep A Screen Throat (10/06/2017 9:07 AM ROVING DEPARTMENT SUPERVISOR) [facility] Method Time Signature Rapid Strep A Positive (A) Negative 10/06/2017 [facility] Screen 9:19 AM ROVING DEPARTMENT SUPERVISOR [facility] Specimen Anatomical Collection Method Collection Time Receive d Time (Source) Location / / Volume Laterality Varies (Throat) 10/06/2017 9:07 AM 2017 9:09 ROVING DEPARTMENT SUPERVISOR AM ROVING DEPARTMENT SUPERVISOR Amanda Arreola APRN, C.N.P. LAB MICROBIOLOGY - GENE RAL ORDERABLES Performing Organization Address City/State/ZIP Code Phon e Number [facility]- [id number] [place] [address] [facility] documented in this encounter Visit Diagnoses Diagnosis Sore Throat - Primary Effusion Ear Middle Left Chills Without Fever Headache Benign documented in this encounter Additional Health Concerns Assessment Noted Time PHQ-9 Depression Total Score: 9 08/30/2017 4:00 PM ROVING DEPARTMENT SUPERVISOR documented as of this encounter Care Teams Mission Manager Relationship Specialty Start Date End Date Amanda Arreola APRN, C.N.P. PCP - General 01/27/17 12/09/17 documented as of this encounter
--- OUTSIDE RECORDS SUMMARY | 2022-07-06 10:25 | XMS_ITS | Encounter Summary ---
:1995 Author Organization [facility] Address [address] [place] [address] Care Team Providers Name Role Phone Holley Saucedo APRN, C.N.P. Primary Care Provider [phone] Reason for Visit Reason Comments Communication Encounter Details Date Type Department Care Team Description 09/23/2017 Clinical Communication Department of Pina Newman Communication Medicine, Hakeem Baker APRN, C.N.P. [facility], in [address] [place] [address] [place] [address] [place], [place] (Work) [phone] Social History Tobacco Use [...] How often do you attend pentecostalism or buddhism Never 10/23/2020 services? Do you [...] at Date Recorded Female 08/12/2017 10:51 AM FOOD SERVICE MANAGER documented as of this encounter Miscellaneous Notes Telephone Encounter - Edith Corona R.N. - 09/23/2017 12:07 PM FOOD SERVICE MANAGER Pt called back to clinic, imaging results relayed to her. Pt verbalized understanding and transferred to scheduling for ortho visit. SERVICE MANAGER Telephone Encounter - Edith Corona R.N. - 09/23/2017 11:16 AM FOOD SERVICE MANAGER RN tried to contact pt, no answer, will try again after 12pm. Result note listed under imaging in pt's chart. SERVICE MANAGER Telephone Encounter - Matilde Yeung - 09/23/2017 10:51 AM CST Patient returned nurse call regarding MRI results. She said the best time to reach her will be [id number]. SERVICE MANAGER documented in this encounter Plan of Treatment Not on filedocumented as of this encounter Visit Diagnoses Not on filedocumented in this encounter Additional Health Concerns Assessment Noted Time PHQ-9 Depression Total Score: 9 08/30/2017 4:00 PM FOOD SERVICE MANAGER documented as of this encounter Care Teams Print Line Feeder Relationship Specialty Start Date End Date Holley Saucedo APRN, C.N.P. PCP - General 01/27/17 12/09/17 documented as of this encounter
--- OUTSIDE RECORDS SUMMARY | 2022-07-06 10:26 | XMS_ITS | Encounter Summary ---
:1995 Author Organization [facility] Address [address] [place] [address] Care Team Providers Name Role Phone Holley Saucedo APRN, C.N.P. Primary Care Provider [phone] Reason for Referral MRI/CAT/PET Scan (Routine) - Closed Specialty Diagnoses / Procedures Referred By Contact Refer red To Contact Radiology Diagnoses Pain Hip Left Holley Saucedo APRN, [facility] Region Procedures MR Hip Left without IV Contrast C.N.P. [address] [place] [address] Referral ID Status Reason Start Date Expiration Date Visits Requ ested Visits Authorized [id number] Closed 08/18/2017 02/14/2018 1 1 GEMENT SPECIALIST Reason for Visit Reason Comments Annual Exam Student exam (DCTC) Appointment Request (Routine) - Closed Specialty Diagnoses / Procedures Referred By Contact Refer red To Contact Referral ID Status Reason Start Date Expiration Date Visits Requ ested Visits Authorized [id number] Closed 08/16/2017 02/12/2018 1 1 Encounter Details Date Type Department Care Team Description 08/18/2017 Comprehensive Visit Department of Hernry Saucedo Immunization Influenza (Primary Dx); Family MedicineHolley, General Med ical Examination Adult; [place] TOBI, C.N.P. Pain Hip Left Clinic, in [address] [address] [place] [address] [facility] [phone] [place], [place] (Work) [phone] Social History Tobacco Use [...] How often do you attend nondenominational or confucianism Never 10/23/2020 services? Do you [...] at Date Recorded Female 08/12/2017 10:51 AM ENGAGEMENT SPECIALIST documented as of this encounter Last Filed Vital Signs Vital Sign Reading Time Taken Comments Blood Pressure 123/69 08/18/2017 1:37 PM ENGAGEMENT SPECIALIST Pulse 73 08/18/2017 1:37 PM ENGAGEMENT SPECIALIST Temperature 36.8 ??C (98.2 ??F) 08/18/2017 1:37 PM ENGAGEMENT SPECIALIST Respiratory Rate 16 08/18/2017 1:37 PM ENGAGEMENT SPECIALIST Oxygen Saturation - - Inhaled Oxygen Concentration - - Weight 99 kg (218 lb 4.1 oz) 08/18/2017 1:37 PM ENGAGEMENT SPECIALIST Height 166 cm (5' 5.35) 08/18/2017 1:37 PM ENGAGEMENT SPECIALIST Body Mass Index 35.93 08/18/2017 1:37 PM ENGAGEMENT SPECIALIST documented in this encounter Progress Notes Holley Saucedo, C.N.P., R.N. 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 [...] she has received all her immunizations in [place]. She denies any other health concerns today. [...] tablet Take 10 mg by mouth. ??? prenat.vits,hernandez,mlh-ehpr-yeobq ( VITAMIN) tablet Take 1 tablet by [...] Coughing up mucus (phlegm): Yes Wheezing: Yes GEMENT SPECIALIST documented in this encounter Plan of Treatment Not on filedocumented as of this encounter Procedures Procedure Name Priority Date/Time Associated Diagnosis Comme nts MMRV IMMUNE STATUS Routine 08/18/2017 2:48 PM General Medical Results for this PROFILE ENGAGEMENT SPECIALIST Examination Adult procedure are in the results section. documented in this encounter Results MR Hip Left without IV Contrast (09/22/2017 3:16 PM ENGAGEMENT SPECIALIST) Anatomical Region Laterality Modality Lower Extremity, Hip Left Magnetic Resonance Specimen (Source) Anatomical Collection Method Collection Time Re ceived Time Location / / Volume Laterality 09/22/2017 3:31 PM ENGAGEMENT SPECIALIST Impressions 09/22/2017 3:41 PM ENGAGEMENT SPECIALIST IMPRESSION: 1. ??No acute appearing abnormality of t he left hip. 2. ??Incidentally noted disc desiccation with mild disc protrusion of the lower lumbar spine. Narrative 09/22/2017 3:41 PM ENGAGEMENT SPECIALIST EXAM: MR HIP LEFT WITHOUT IV CONTRAST [...] MMRV Immune Status Profile (08/18/2017 2:48 PM ENGAGEMENT SPECIALIST) athologist Signature Measles Positive 08/19/2017 [facility] ([place]) Ab, 9:58 AM [facility] Comment: Results suggest response to immunization or prior exposure to the virus. ----REFERENCE VALUE---- Vaccinated: Positive (>=1.1 AI) Unvaccinated: Negative (<=0.8 AI) Measles IgG Antibody 4.2 08/19/2017 9:58 AM [facility] Mumps Ab, IgG, S Positive 08/19/2017 9:58 AM [facility] Comment: Results suggest response to immunization or prior exposure to the virus. ----REFERENCE VALUE---- Vaccinated: Positive (>=1.1 AI) Unvaccinated: Negative (<=0.8 AI) Mumps IgG Antibody Index 1.6 08/19/2017 9:58 AM [facility] Rubella Ab, IgG, S Positive 08/19/2017 9:[address] [facility] Comment: Results suggest response to immunization or prior exposure to the virus. ----REFERENCE VALUE---- Vaccinated: Positive (>=1.0 AI) Unvaccinated: Negative (<=0.7 AI) Rubella IgG Antibody 2.0 08/19/2017 9:58 AM [facility] Varicella-Zoster Ab, Positive 08/19/2017 9:58 AM ENGAGEMENT SPECIALIST [facility] IgG, S SYSTEM- [facility] Comment: Results suggest response to immunization or prior exposure to the virus. ----REFERENCE VALUE---- Vaccinated: Positive (>=1.1 AI) Unvaccinated: Negative (<=0.8 AI) Varicella IgG Antibody 2.9 08/19/2017 9:58 A M ENGAGEMENT SPECIALIST [facility] Specimen Anatomical Collection Method Collection Time Receive d Time (Source) Location / / Volume Laterality Blood (Blood, 08/18/2017 2:48 PM 08/18/19 18 9:37 Venous) ENGAGEMENT SPECIALIST PM ENGAGEMENT SPECIALIST Holley Saucedo APRN, C.N.P. LAB MICROBIOLOGY - BLOO D ORDERABLES Performing Organization Address City/State/[facility] Code Phon e Number [facility] [address] [place] [address], [place] [address] [facility] documented in this encounter Visit Diagnoses Diagnosis Need Vaccine Immunization Influenza - Pr imary General Medical Examination Adult Pain Hip Left Pain Hip Left documented in this encounter Additional Health Concerns Assessment Noted Time PHQ-9 Depression Total Score: 17 07/12/2017 10:[address] documented as of this encounter Care Teams Haulage Engine Operator Relationship Specialty Start Date End Date Holley Saucedo APRN, C.N.P. PCP - General 01/27/17 12/09/17 documented as of this encounter
--- OUTSIDE RECORDS SUMMARY | 2022-07-06 10:26 | XMS_ITS | Encounter Summary ---
:1995 Author Organization [facility] Address [address] [place] [address] Care Team Providers Name Role Phone Holley Saucedo APRN C.N.P. Primary Care Provider [phone] Reason for Visit Reason Comments Communication Encounter Details Date Type Department Care Team Description 08/16/2017 Clinical Communication Department of Zuly Au Orthopedic Surgery in Vandana Baker P.T. [address] [phone] Social History Tobacco Use Types Packs/Day Years [...] How often do you attend yazidi or sabianist Never 10/23/2020 services? 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 - 08/16/2017 2:58 PM HOUSEMAID Holley, We have worked in PT to address L hip pain/snapping. It has gotten better but still continues to be very limiting for the patient. I think either a referral to orthopedics or an MRI of the hip/pelvis would be appropriate. PT will be on hold. Thank you, Vandana EMAID documented in this encounter Plan of Treatment Not on filedocumented as of this encounter Visit Diagnoses Not on filedocumented in this encounter Additional Health Concerns Assessment Noted Time PHQ-9 Depression Total Score: 17 07/12/2017 10:[address] documented as of this encounter Care Teams Stock Plan Administrator Relationship Specialty Start Date End Date Holley Saucedo, QUAL RESEARCH MANAGER, C.N.P. PCP - General 01/27/17 12/09/17 documented as of this encounter
--- OUTSIDE RECORDS SUMMARY | 2022-07-06 10:26 | XMS_ITS | Encounter Summary ---
:1995 Author Organization [facility] Address [address] [place] [address] Care Team Providers Name Role Phone Holley Saucedo APRN, C.N.P. Primary Care Provider [phone] Reason for Visit Physical Therapy (Routine) - Canceled Specialty Diagnoses / Procedures Referred By Contact Refer red To Contact Diagnoses Pain Hip Left Holley Saucedo APRN, [facility] Region Procedures PT Ongoing treatment C.N.P. [address] [place] [address] Referral ID Status Reason Start Date Expiration Date Visits V isits Requested Authorized [id number] Canceled 06/13/2017 12/10/2017 12 99 Encounter Details Date Type Department Care Team Description 06/21/2017 Clinical Support Department of Aspen Saucedo APRN, C.N.P. [address] [place] [address] Pain Hip Left Rehabilitation Services Vandana Au, P.T. in [address] [address] Social History Tobacco Use Types Packs/Day Years [...] How often do you attend shinto or zoroastrian Never 10/23/2020 services? Do you [...] at Date Recorded Female 08/12/2017 10:51 AM TACO MAKER documented as of this encounter Progress [...] Time (min): 36 min Functional G-code Worksheet MAKER documented in this encounter Plan of Treatment Not on filedocumented as of this encounter Visit Diagnoses Diagnosis Pain Hip Left documented in this encounter Additional Health Concerns Assessment Noted Time PHQ-9 Depression Total Score: 18 04/05/2017 2:38 PM CD T documented as of this encounter Care Teams Starch Cooker Relationship Specialty Start Date End Date Holley Saucedo APRN, C.N.P. PCP - General 01/27/17 12/09/17 documented as of this encounter
--- OUTSIDE RECORDS SUMMARY | 2022-07-06 10:26 | XMS_ITS | Encounter Summary ---
:1995 Author Organization [facility] Address [address] [place] [address] Care Team Providers Name Role Phone Holley Arreola APRN, C.N.P. Primary Care Provider [phone] Encounter Details Date Type Department Care Team Description 06/02/2017 Hospital Encounter [facility] Farncisca Arreola APRN, C.N.P. [address] [place], [place] [address] (Wo rk) Social History [...] How often do you attend sikhism or rastafarian Never 10/23/2020 services? 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 She works part-time as a [employer]. She reports her left hip pain is [...] Ordered: OV Est Pt Level 3 - 17902 - 15 min Orders: Physical Therapy Referral Consult and Treat Electronically Signed By: HOLLEY ARREOLA CNP RN On: 06/02/2017 08:38 AM Source: [facility] POWERCHART Document Id: [id number] documented in this encounter Miscellaneous Notes Miscellaneous - Dorian Davenport, L.P.N. 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 Onset of Symptoms : December 2016 Ambulatory Intake Additional Information : Difficulty standing and lifting. 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 Temperature Core [...] Preferred Communication Mode : Verbal Languages : Romansh Is Patient Female and [...] DORIAN DAVENPORT LPN 06/02/2017 8:01 CDT Source: [facility] POWERCHART Document Id: [id number]![id number] documented in this encounter Plan of Treatment Not on filedocumented as of this encounter Visit Diagnoses Not on filedocumented in this encounter Additional Health Concerns Assessment Noted Time PHQ-9 Depression Total Score: 04/05/2017 2:38 PM CD T documented as of this encounter Care Teams Management Coordinator Relationship Specialty Start Date End Date Holley Arreola APRN, C.N.P. PCP - General 01/27/17 12/09/17 documented as of this encounter
--- OUTSIDE RECORDS SUMMARY | 2022-07-06 10:26 | XMS_ITS | Encounter Summary ---
:1995 Author Organization [facility] Address [address] [place] [address] Care Team Providers Name Role Phone Holley Saucedo APRN, C.NGonzaloP. Primary Care Provider [phone] Reason for Visit Reason Comments Other cold symptoms Encounter Details Date Type Department Care Team Description 08/12/2017 Office Visit Department of Family Cj Bronchi tis (Primary Dx); Medicine, [place] [facility] Beny Wiley Asthma Moderate Persistent (HCC) Clinic, in [address] [phone] Social History Tobacco Use Types Packs/Day [...] How often do you attend christian or faith Never 10/23/2020 services? 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 documented as of this encounter Last Filed Vital Signs Vital Sign Reading Time Taken Comments Blood Pressure 120/72 08/12/2017 11:23 AM SUPERVISOR NUTRITIONAL YEAST Pulse 72 08/12/2017 11:23 AM SUPERVISOR NUTRITIONAL YEAST Temperature 36.6 ??C (97.9 ??F) 08/12/2017 11:23 AM SUPERVISOR NUTRITIONAL YEAST Respiratory Rate - - Oxygen Saturation - - Inhaled Oxygen Concentration - - Weight 99.6 kg (219 lb 9.3 oz) 08/12/2017 11:23 AM SUPERVISOR NUTRITIONAL YEAST Height 166 cm (5' 5.35) 08/12/2017 11:23 AM SUPERVISOR NUTRITIONAL YEAST Body Mass Index 36.14 08/12/2017 11:23 AM SUPERVISOR NUTRITIONAL YEAST documented in this encounter Progress Notes Inez [...] package directions, Disp: 1 tablet,Rfl: 0 ??? prenat.vits,hernandez,opx-waef-ityqw ( VITAMIN) tablet, Take 1 tablet by [...] for 4 days., Normal Inez Corona M.D. RVISOR NUTRITIONAL YEAST documented in this encounter Plan of Treatment Not on filedocumented as of this encounter Visit Diagnoses Diagnosis Bronchitis - Primary Asthma Moderate Persistent (HCC) documented in this encounter Additional Health Concerns Assessment Noted Time PHQ-9 Depression Total Score: 17 07/12/2017 10:[address] documented as of this encounter Care Teams Research Investigator Relationship Specialty Start Date End Date Holley Saucedo APRN, C.N.P. PCP - General 01/27/17 12/09/17 documented as of this encounter
--- OUTSIDE RECORDS SUMMARY | 2022-07-06 10:26 | XMS_ITS | Encounter Summary ---
:1995 Author Organization [facility] Address [address] [place] [address] Care Team Providers Name Role Phone Holley Saucedo APRN, C.N.P. Primary Care Provider [phone] Reason for Visit Reason Comments Med Refill Encounter Details Date Type Department Care Team Description 09/01/2017 Refill Department of [facility] Holley Saucedo APRN, Med Refill Medicine, [place] C.N.P. Clinic, in [address] [place] [address] [place], [place] [address] [phone] Social History Tobacco Use Types Packs/Day Years [...] How often do you attend rastafari or baptist Never 10/23/2020 services? 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 - 09/01/2017 3:27 PM CST Images from the original note were not included. Spoke with Manuel at [facility] and clarified Rx Sig according to provider message below: Chandni Urbina APRN, Ki.N.P., C.N.P. Rhianna Dubose C.M.A. Caller: Unspecified (Today, 12:45 PM) ?? Please call and confirm I'd like the patient to take Gabepentin 300mg for the first night, then start twice daily for 3 days, then 300mg TID until symptoms resolve. Thanks. TER ELECTRONIC Telephone Encounter - Roseline Haji - 09/01/2017 [...] x 3 days 300 mg TID thereafter TER ELECTRONIC documented in this encounter Plan of Treatment Not on filedocumented as of this encounter Visit Diagnoses Not on filedocumented in this encounter Additional Health Concerns Assessment Noted Time PHQ-9 Depression Total Score: 9 08/30/2017 4:00 PM DRAFTER ELECTRONIC documented as of this encounter Care Teams Memorial Marker Designer Relationship Specialty Start Date End Date Holley Saucedo APRN, C.N.P. PCP - General 01/27/17 12/09/17 documented as of this encounter
--- OUTSIDE RECORDS SUMMARY | 2022-07-06 10:26 | XMS_ITS | Encounter Summary ---
:1995 Author Organization [facility] Address [address] [place] [address] Care Team Providers Name Role Phone Holley Saucedo APRN, C.N.P. Primary Care Provider [phone] Reason for Visit Physical Therapy (Routine) - Canceled Specialty Diagnoses / Procedures Referred By Contact Refer red To Contact Diagnoses Pain Hip Left Holley Saucedo APRN, [facility] Region Procedures PT Ongoing treatment C.N.P. [address] [place] [address] Referral ID Status Reason Start Date Expiration Date Visits V isits Requested Authorized [id number] Canceled 06/13/2017 12/10/2017 12 99 Encounter Details Date Type Department Care Team Description 06/28/2017 Clinical Support Department of [place] Saucedo APRN, C.N.P. [address] [place] [address] Pain Hip Left Rehabilitation Services Vandana Au, P.T. in [address] [phone] Social History Tobacco Use Types Packs/Day Years [...] How often do you attend religious or protestant Never 10/23/2020 services? 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 PCP - General 01/27/17 12/09/17 documented as of this encounter
--- OUTSIDE RECORDS SUMMARY | 2022-07-06 10:26 | XMS_ITS | Encounter Summary ---
:1995 Author Organization [facility] Address [address] [place] [address] Care Team Providers Name Role Phone Holley Saucedo APRN, C.N.P. Primary Care Provider [phone] Reason for Visit Reason Comments Other toothache since Tuesday Encounter Details Date Type Department Care Team Description 08/31/2017 Office Visit Department of Family Chandni Urbina, Mariana uralgia Trigeminal (Primary Dx); Medicine, [place] TOBI, C.N.P., Bipo lar II Disorder (HCC) Clinic, in [place] [address] [phone] Social History Tobacco Use Types Packs/Day Years [...] How often do you attend confucianist or episcopal Never 10/23/2020 services? 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 documented as of this encounter Last Filed Vital Signs Vital Sign Reading Time Taken Comments Blood Pressure 92/52 08/31/2017 4:59 PM FISH BUTCHER Pulse 82 08/31/2017 4:59 PM FISH BUTCHER Temperature 36.8 ??C (98.2 ??F) 08/31/2017 4:59 PM FISH BUTCHER Respiratory Rate 20 08/31/2017 4:59 PM FISH BUTCHER Oxygen Saturation - - Inhaled Oxygen Concentration - - Weight 103 kg (227 lb 8.2 oz) 08/31/2017 4:59 PM FISH BUTCHER Height 167.6 cm (5' 6) 08/31/2017 4:59 PM FISH BUTCHER Body Mass Index 36.72 08/31/2017 4:59 PM FISH BUTCHER documented in this encounter Patient Instructions Patient InstructionsChandni Urbina APRN, D.N.P., C.N.P. - 08/31/2017 5:00 PM CST Gabapentin: Take one dose tonight (300mg), then tomorrow 300mg twice/day for 3 days, then 300mg three times a day until pain goes away Medrol Dose Pack: Instructions as prescribed on the package BUTCHER documented in this encounter Progress Notes Chandni [...] tablet Take 10 mg by mouth. ??? prenat.vits,hernandez,djy-gexf-vexjj ( VITAMIN) tablet Take 1 tablet by [...] the content. Chandni Urbina APRN, D.N.P., C.N.P. BUTCHER documented in this encounter Plan of Treatment Not on filedocumented as of this encounter Visit Diagnoses Diagnosis Neuralgia Trigeminal - Primary Bipolar II Disorder (HCC) documented in this encounter Additional Health Concerns Assessment Noted Time PHQ-9 Depression Total Score: 9 08/30/2017 4:00 PM FISH BUTCHER documented as of this encounter Care Teams Cadmium Burner Relationship Specialty Start Date End Date Holley Saucedo APRN, C.N.P. PCP - General 01/27/17 12/09/17 documented as of this encounter
--- OUTSIDE RECORDS SUMMARY | 2022-07-06 10:26 | XMS_ITS | Encounter Summary ---
:1995 Author Organization [facility] Address [address] [place] [address] Care Team Providers Name Role Phone Holley Arreola APRN, C.N.P. Primary Care Provider [phone] Encounter Details Date Type Department Care Team Description 06/13/2017 - Hospital Encounter [facility] Holley Arreola 06/24/2017 CHRISTOPHER Baker APRN, C.N.P. [address] [place], [place] [address] Social History Tobacco Use [...] How often do you attend islam or oriental orthodox Never 10/23/2020 services? 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 We also child working in [employer] in this also made her have less [...] days of work without pain or discomfort. SENIOR LIVING FUNCTIONAL GOALS: To be met within 4 [...] CNP, RN On: 06/13/2017 08:06 PM Source: [facility] ralali Document Id: [id number] documented in this encounter Miscellaneous Notes Miscellaneous - Holley Arreola C.N.P., R.N. - 06/15/2017 8:16 PM CDT Provider Letter June 15, 2017 DHIRAJ LANDA [address] [place] [address] [address] [facility] [phone] Dear DHIRAJ LANDA, To whom it may concern: Please allow Dhiraj Landa to sit on a stool/chair related to her work duties to alleviate theneed for squatting or repetitive bending until further notice. Sincerely, HOLLEY ARREOLA [address] [place] [address] Electronic Signature Electronically Signed By: HOLLEY ARREOLA CNP, RN On: June 15, 2017 This document has images extracted. Source: [facility] ralali Document Id: [id number] Miscellaneous - Conversion, Historical Provider Ser - 06/15/2017 11:02 AM CDT Coding Summary-Paper Based CODING DATE: 06/15/2017 FINAL [facility] STATUS: Still Patient/Expected to Rtn Oupt [facility] PAYOR: Medicaid ADMIT DX: REASON FOR VISIT [...] ALSTON Date Saved: 06/15/2017 11:02 am [facility] Document Id: [id number] Miscellaneous - Vandana Wade P.T. - 06/14/2017 1:51 PM CDT *General Message Document Contains Addenda Addendum by DORIAN DAVENPORT LPN on June 16, 2017 13:28:57 CDT Printed letter and placed at front of house manager for patient to curing pickling packer. Attempted to leave VM on patient's phone, mailbox is full. Addendum by HOLLEY ARREOLA CNP RN on June 15, 2017 20:19:24 CDT From: HOLLEY ARREOLA CNP, RN To: MD Family Medicine Nurse Mitesh; Sent: 06/15/2017 20:19:24 [...] restrictions and contact patient to fax or curing pickling packer. Thanks! From: VANDANA WADE DPT To: HOLLEY [...] her or call her so she can curing pickling packer the restrictions at our next session. Thanks! Vandana Source: [facility] POWERCHART Document Id: [id number] documented in this encounter Plan of Treatment Not on filedocumented as of this encounter Visit Diagnoses Not on filedocumented in this encounter Additional Health Concerns Assessment Noted Time PHQ-9 Depression Total Score: 18 04/05/2017 2:38 PM CD T documented as of this encounter Care Teams Manager Lsw Relationship Specialty Start Date End Date Holley Arreola, ELEMENTARY SCHOOL SOCIAL WORKER, C.N.P. PCP - General 01/27/17 12/09/17 documented as of this encounter
--- OUTSIDE RECORDS SUMMARY | 2022-07-06 10:26 | XMS_ITS | Encounter Summary ---
:1995 Author Organization [facility] Address [address] [place] [address] Care Team Providers Name Role Phone Holley Saucedo APRN, C.N.P. Primary Care Provider [phone] Encounter Details Date Type Department Care Team Description 09/12/2017 Hospital Encounter Department of Holley Saucedo nitpaty Disorder Laboratory Medicine TOBI Baker, C.N .P. Screening Exam in [address] [phone] [place], [place] (Work) [phone] Social History Tobacco Use [...] How often do you attend taoist or shinto Never 10/23/2020 services? 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 documented in this encounter Results QuantiFERON-TB Gold In-Tube for Detection of Latent Tuberculosis (09/12/2017 4:45 PM YARDING ENGINEER) athologist Signature QuantiFERON-TB Negative Negative 09/15/2017 [facility] Gold Result 1:25 PM [facility] Comment: No interferon-gamma response to M. tuber culosis antigens was detected. Infection with M. tubercul osis is unlikely. A negative result alone does not exclude infection with M. tuberculosis. For detailed information regarding test interpretation see: [email or web address]/test-cat alog/ Clinical+and+Interpretive/25657 TB Ag minus Nil Result 0.01 IU/mL 09/15/2017 1:25 P [facility] Mitogen minus Nil >10.00 IU/mL 09/15/2017 1:25 PM YARDING ENGINEER [facility] Nil Result 0.02 IU/mL 09/15/2017 1:[address] [facility] Specimen Anatomical Collection Method Collection Time Receive d Time (Source) Location / / Volume Laterality Blood (Blood, 09/12/2017 4:45 PM 09/13/19 18 3:58 Venous) YARDING ENGINEER PM YARDING ENGINEER Narrative [facility] - 09/15/2017 1:25 PM YARDING ENGINEER Specimen Information: Specimen ID: [id number] Specimen Type: Blood Specimen Collection Start Date: 09/12/19 18 ??4:45 PM Specimen Received Date: 09/13/2017 ??3:5 8 PM Specimen ID: [id number] Specimen Type: Blood Specimen Collection Start Date: 09/12/19 18 ??4:45 PM Specimen Received Date: 09/13/2017 ??3:5 8 PM Specimen ID: [id number] Specimen Type: Blood Specimen Collection Start Date: 09/12/19 18 ??4:45 PM Specimen Received Date: 09/13/2017 ??3:5 8 PM Holley Saucedo APRN, C.N.P. LAB MICROBIOLOGY - BLOO D ORDERABLES Performing Organization Address City/State/ZIP Code Phon [place] Number [address] [place] [address] [facility] documented in this encounter Visit Diagnoses Diagnosis Immunity Disorder Screening Exam documented in this encounter Additional Health Concerns Assessment Noted Time PHQ-9 Depression Total Score: 9 08/30/2017 4:00 PM YARDING ENGINEER documented as of this encounter Care Teams Doormaker Relationship Specialty Start Date End Date Holley Saucedo APRN, C.N.P. PCP - General 01/27/17 12/09/17 documented as of this encounter
--- OUTSIDE RECORDS SUMMARY | 2022-07-06 10:26 | XMS_ITS | Encounter Summary ---
:1995 Author Organization [facility] Address [address] [place] [address] Care Team Providers Name Role Phone Holley Saucedo APRN, C.N.P. Primary Care Provider [phone] Reason for Visit Reason Comments Communication Quantiferon-TB lab Encounter Details Date Type Department Care Team Description 08/16/2017 Clinical Department of [place] Saucedo Family MedicineHolley, (Quantifer on-TB lab) [place] TOBI, C.N.P. Clinic, in [address] [phone] [place], [place] (Work) [phone] Social History Tobacco Use [...] How often do you attend anglican or christian Never 10/23/2020 services? 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 - 09/09/2017 12:21 PM FORMULA MAKER Called pt with message from provider. Pt stated understanding and transferred to front dest to schedule lab visit. ULA MAKER Telephone Encounter - Holley Saucedo APRN, C.N.P. - 09/09/2017 11:14 AM FORMULA MAKER Please call patient and let her know that I ordered the QuantiFERON-TB lab test, so she can come in anytime to complete this screen. Thanks! ULA MAKER Telephone Encounter - Edith Corona R.N. - 09/09/2017 11:05 AM FORMULA MAKER Please advise if willing to order based on message below. ULA MAKER Telephone Encounter - Felisha Dumont - 09/09/2017 10:34 AM CST Patient called and needs an order for a quanteferon lab draw in place of a TB test. Patient states she dose not have time for the TB test. Patient could also have a T spot. Patient can be reached at [phone] ULA MAKER documented in this encounter Plan of Treatment Not on filedocumented as of this encounter Results QuantiFERON-TB Gold In-Tube for Detection of Latent Tuberculosis (09/12/2017 4:45 PM FORMULA MAKER) athologist Signature QuantiFERON-TB Negative Negative 09/15/2017 [facility] Gold Result 1:25 PM [facility] Comment: No interferon-gamma response to M. tuber culosis antigens was detected. Infection with M. tubercul osis is unlikely. A negative result alone does not exclude infection with M. tuberculosis. For detailed information regarding test interpretation see: [email or web address] [email or web address]/test-cat alog/ Clinical+and+Interpretive/22116 TB Ag minus Nil Result 0.01 IU/mL 09/15/2017 1:25 P [facility] Mitogen minus Nil >10.00 IU/mL 09/15/2017 1:25 PM [facility] Nil Result 0.02 IU/mL 09/15/2017 1:[address] [facility] Specimen Anatomical Collection Method Collection Time Receive d Time (Source) Location / / Volume Laterality Blood (Blood, 09/12/2017 4:45 PM 09/13/19 18 3:58 Venous) FORMULA MAKER PM FORMULA MAKER Narrative [facility] - 09/15/2017 1:25 PM FORMULA MAKER Specimen Information: Specimen ID: [id number] Specimen Type: Blood Specimen Collection Start Date: 09/12/19 18 ??4:45 PM Specimen Received Date: 09/13/2017 ??3:5 8 PM Specimen ID: [id number] Specimen Type: Blood Specimen Collection Start Date: 09/12/19 18 ??4:45 PM Specimen Received Date: 09/13/2017 ??3:5 8 PM Specimen ID: [id number] Specimen Type: Blood Specimen Collection Start Date: 09/12/19 18 ??4:45 PM Specimen Received Date: 09/13/2017 ??3:5 8 PM Holley Saucedo APRN, C.N.P. LAB MICROBIOLOGY - BLOO D ORDERABLES Performing Organization Address City/State/ZIP Code Phon e Number [facility] [address] [facility] [place] [address] [facility] documented in this encounter Visit Diagnoses Diagnosis Immunity Disorder Screening Exam - Prima ry Immunity Disorder Screening Exam documented in this encounter Additional Health Concerns Assessment Noted Time PHQ-9 Depression Total Score: 17 07/12/2017 10:[address] documented as of this encounter Care Teams Metal Bonding Crib Attendant Relationship Specialty Start Date End Date Holley Saucedo APRN, C.N.P. PCP - General 01/27/17 12/09/17 documented as of this encounter
--- OUTSIDE RECORDS SUMMARY | 2022-07-06 10:26 | XMS_ITS | Encounter Summary ---
:[address] [facility] Address [address] [place] [address] Care Team Providers Name Role Phone Holley Saucedo APRN C.N.P. Primary Care Provider [phone] Encounter Details Date Type Department Care Team Description 06/24/2017 Clinical Communication Department of [facility] Rehabilitation Services Vandana Baker P.T. 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 PCP - General 01/27/17 12/09/17 documented as of this encounter
--- OUTSIDE RECORDS SUMMARY | 2022-07-06 10:26 | XMS_ITS | Encounter Summary ---
:1995 Author Organization [facility] Address [address] [place] [address] Care Team Providers Name Role Phone Holley Saucedo APRN, C.N.P. Primary Care Provider [phone] Encounter Details Date Type Department Care Team Description 05/28/2017 Abstract Department of Family Medicine in [place], [place] [address] [place], [place] [phone] Social History Tobacco Use [...] How often do you attend orthodox or anabaptism Never 10/23/2020 services? 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 PCP - General 01/27/17 12/09/17 documented as of this encounter
--- OUTSIDE RECORDS SUMMARY | 2022-07-06 10:26 | XMS_ITS | Encounter Summary ---
:1995 Author Organization [facility] Address [address] [place] [address] Care Team Providers Name Role Phone Holley Saucedo APRN, C.N.P. Primary Care Provider [phone] Reason for Visit Physical Therapy (Routine) - Canceled Specialty Diagnoses / Procedures Referred By Contact Refer red To Contact Diagnoses Pain Hip Left Holley Saucedo APRN, [facility] Region Procedures PT Ongoing treatment C.N.P. [address] [place] [address] Referral ID Status Reason Start Date Expiration Date Visits V isits Requested Authorized [id number] Canceled 06/13/2017 12/10/2017 12 99 Encounter Details Date Type Department Care Team Description 07/12/2017 Clinical Support Department of Asp[place] Saucedo APRN, C.N.P. [address] [place] [address] Pain Hip Left Rehabilitation Services Vandana Au, P.T. in [address] [phone] Social History Tobacco Use Types Packs/Day Years [...] How often do you attend worship or episcopalian Never 10/23/2020 services? 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 PCP - General 01/27/17 12/09/17 documented as of this encounter
--- OUTSIDE RECORDS SUMMARY | 2022-07-06 10:26 | XMS_ITS | Encounter Summary ---
:[address] [facility] Address [address] [place] [address] Care Team Providers Name Role Phone Holley Saucedo APRN, C.N.P. Primary Care Provider [phone] Encounter Details Date Type Department Care Team Description 08/30/2017 Nurse Triage Department of [facility], Kamla Baker , Medicine, [facility], R.N. in [place], [place] [address] [place] [address] Social History Tobacco Use Types Packs/Day Years [...] How often do you attend hindu or yarsanism Never 10/23/2020 services? 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 PCP - General 01/27/17 12/09/17 documented as of this encounter
--- OUTSIDE RECORDS SUMMARY | 2022-07-06 10:26 | XMS_ITS | Encounter Summary ---
:1995 Author Organization [facility] Address [address] [place] [address] Care Team Providers Name Role Phone Holley Saucedo APRN, C.N.P. Primary Care Provider [phone] Reason for Referral MRI/CAT/PET Scan (Routine) - Closed Specialty Diagnoses / Procedures Referred By Contact Refer red To Contact Radiology Diagnoses Pain Hip Left Holley Saucedo APRN, [facility] [place] [facility] Procedures MR Hip Left without IV Contrast C.N.P. [address] [place] [address] Referral ID Status Reason Start Date Expiration Date Visits Requ ested Visits Authorized [id number] Closed 08/18/2017 02/14/2018 1 1 MAINTENANCE WORKER Reason for Visit MRI/CAT/PET Scan (Routine) - Closed Specialty Diagnoses / Procedures Referred By Contact Modesta red To Contact Radiology Diagnoses Pain Hip Left Holley Saucedo APRN, [facility] [place] [facility] Procedures MR Hip Left without IV Contrast C.N.P. [address] [place] [address] Referral ID Status Reason Start Date Expiration Date Visits Requ ested Visits Authorized [id number] Closed 08/18/2017 02/14/2018 1 1 Encounter Details Date Type Department Care Team Description 09/22/2017 Hospital Encounter Department of Holley Saucedo P ain Hip Left Radiology in [place]ela BRITTON [address] [address] [place], [place] [phone] (W ork) [id number] [phone] Social History Tobacco Use Types Packs/Day Years [...] How often do you attend spiritism or scientologist Never 10/23/2020 services? 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 documented in this encounter Results MR Hip Left without IV Contrast (09/22/2017 3:16 PM LAWN MAINTENANCE WORKER) Anatomical Region Laterality Modality Lower Extremity, Hip Left Magnetic Resonance Specimen (Source) Anatomical Collection Method Collection Time Re ceived Time Location / / Volume Laterality 09/22/2017 3:31 PM LAWN MAINTENANCE WORKER Impressions 09/22/2017 3:41 PM LAWN MAINTENANCE WORKER IMPRESSION: 1. ??No acute appearing abnormality of t he left hip. 2. ??Incidentally noted disc desiccation with mild disc protrusion of the lower lumbar spine. Narrative 09/22/2017 3:41 PM LAWN MAINTENANCE WORKER EXAM: MR HIP LEFT WITHOUT IV CONTRAST [...] Depression Total Score: 9 08/30/2017 4:00 PM LAWN MAINTENANCE WORKER documented as of this encounter Care Teams Child Care Supervisor Relationship Specialty Start Date End Date Holley Saucedo APRN, C.N.P. PCP - General 01/27/17 12/09/17 documented as of this encounter
--- OUTSIDE RECORDS SUMMARY | 2022-07-06 10:26 | XMS_ITS | Encounter Summary ---
:1995 Author Organization [facility] Address [address] [place] [address] Care Team Providers Name Role Phone Holley Saucedo APRN, C.N.P. Primary Care Provider [phone] Reason for Visit Physical Therapy (Routine) - Canceled Specialty Diagnoses / Procedures Referred By Contact Refer red To Contact Diagnoses Pain Hip Left Holley Saucedo APRN, [facility] Region Procedures PT Ongoing treatment C.N.P. [address] [place] [address] Referral ID Status Reason Start Date Expiration Date Visits V isits Requested Authorized [id number] Canceled 06/13/2017 12/10/2017 12 99 Encounter Details Date Type Department Care Team Description 06/24/2017 Clinical Support Department of [place] Saucedo APRN, C.N.P. [address] [place] [address] Pain Hip Left Rehabilitation Services Vandana Au, P.T. in [address] [phone] Social History Tobacco Use Types Packs/Day Years [...] How often do you attend taoism or zoroastrianism Never 10/23/2020 services? 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 - 06/24/2017 9:15 AM CST Physical Therapy Outpatient Treatment Note Referring Provider: Holley Saucedo C.N.P., R.N. Medical Diagnosis: 1. Pain Hip Left - PT Ongoing treatment Payor: Payor: [facility] Waterfall / Plan: [facility] CARE / Product Type: Medicaid HMO / [...] Time (min): 22 min Functional G-code Worksheet ING RACK SUPERVISOR documented in this encounter Plan of Treatment Not on filedocumented as of this encounter Visit Diagnoses Diagnosis Pain Hip Left documented in this encounter Additional Health Concerns Assessment Noted Time PHQ-9 Depression Total Score: 18 04/05/2017 2:38 PM CD T documented as of this encounter Care Teams Software Trainer Relationship Specialty Start Date End Date Holley Saucedo APRN, C.N.P. PCP - General 01/27/17 12/09/17 documented as of this encounter
--- OUTSIDE RECORDS SUMMARY | 2022-07-06 10:26 | XMS_ITS | Encounter Summary ---
:1995 Author Organization [facility] Address [address] [place] [address] Care Team Providers Name Role Phone Holley Saucedo APRN, C.N.P. Primary Care Provider [phone] Reason for Visit Physical Therapy (Routine) - Canceled Specialty Diagnoses / Procedures Referred By Contact Refer red To Contact Diagnoses Pain Hip Left Holley Saucedo APRN, [facility] Region Procedures PT Ongoing treatment C.N.P. [address] [place] [address] Referral ID Status Reason Start Date Expiration Date Visits V isits Requested Authorized [id number] Canceled 06/13/2017 12/10/2017 12 99 Encounter Details Date Type Department Care Team Description 08/02/2017 Clinical Support Department of Aspen Saucedo APRN, C.N.P. [address] [place] [address] Pain Hip Left Rehabilitation Services Vandana Au, P.T. in [address] [phone] Social History Tobacco Use Types Packs/Day Years [...] How often do you attend jain or tenriism Never 10/23/2020 services? 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 - 08/02/2017 9:30 AM CST Physical Therapy Outpatient Treatment Note SUBJECTIVE Visit Count since Last G-Code: 5 Episode Visit Count: 5 Visit Diagnosis: #1 Pain Hip Left Referring Provider: Kenzei Armstrong* Subjective: Patient had been doing really [...] Time (min): 20 min Functional G-code Worksheet CH LANGUAGE PATHOLOGIST Vandana Au P.T. - 08/02/2017 9:30 AM [...] seen for physical therapy discharge, non billed CH LANGUAGE PATHOLOGIST documented in this encounter Plan of Treatment Not on filedocumented as of this encounter Visit Diagnoses Diagnosis Pain Hip Left documented in this encounter Additional Health Concerns Assessment Noted Time PHQ-9 Depression Total Score: 17 07/12/2017 10:[address] documented as of this encounter Care Teams Head Concierge Relationship Specialty Start Date End Date Holley Saucedo APRN, C.N.P. PCP - General 01/27/17 12/09/17 documented as of this encounter
--- OUTSIDE RECORDS SUMMARY | 2022-07-06 10:26 | XMS_ITS | Encounter Summary ---
:1995 Author Organization [facility] Address [address] [place] [address] Care Team Providers Name Role Phone Holley Saucedo APRN, C.N.P. Primary Care Provider [phone] Reason for Referral Behavioral Health (Routine) - Closed Specialty Diagnoses / Procedures Referred By Contact Refer red To Contact Psychiatry / Psychiatry Diagnoses Notes for Emmanuel Garibay: Fam Med IBH Psych New Patient;Hx of depression/anxiety/increased mood swings/anger concerns Holley Saucedo, [facility] and Psychology Procedures Office Visit [facility] C.N.P. [address] [place] [address] Referral ID Status Reason Start Date Expiration Date Visits Requ ested Visits Authorized [id number] Closed 05/27/2017 07/15/2017 1 1 Encounter Details Date Type Department Care Team Description 05/27/2017 Orders Only Department of [facility] Holley Saucedo, Medicine, [place] [facility], C.N .P. Clinic, in [place], [address] [place] [id number] [place] [address] [place], [place] [address] [phone] Social History Tobacco Use Types Packs/Day Years [...] How often do you attend episcopalian or scientology Never 10/23/2020 services? 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 PCP - General 01/27/17 12/09/17 documented as of this encounter
--- OUTSIDE RECORDS SUMMARY | 2022-07-06 10:27 | XMS_ITS | Encounter Summary ---
:1995 Author Organization [facility] Address [address] [place] [address] Care Team Providers Name Role Phone Holley Arreola APRN, C.N.P. Primary Care Provider [phone] Encounter Details Date Type Department Care Team Description 04/05/2017 Hospital Encounter [facility] [place] Francisca Arreola APRN, C.N.P. [address] [place], [place] [address] (Wo rk) Social History [...] How often do you attend scientologist or caodaism Never 10/23/2020 services? 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 See #3 below. Ordered: OV Est Pt Level 3 - 28762 - 15 min Mood Disorder NOS I ordered a referral to behavioral health at [facility] for further evaluation related to her increased mood swings/anger management. We discussed the use of a behavioral health therapist in the future for symptom management. She was instructed to contact the clinic with worsening or no improvement in symptoms. All questions were answered. She left in no acute distress. Ordered: OV Est Pt Level 3 - 43413 - 15 min Orders: Consult to Integrated Behavioral Health - Diagnostic Medication Electronically Signed By: HOLLEY ARREOLA CNP, RN On: 04/05/2017 12:07 PM Source: [facility] [employer] Document Id: [id number] documented in this encounter Miscellaneous Notes Miscellaneous [...] DIA LPN - 04/05/2017 14:39 CDT [facility] Document Id: [id number] CDT!11 Miscellaneous - Chrissy Dia L.P.Berta - [...] DIA LPN - 04/05/2017 14:38 CDT Source: [facility] [employer] Document Id: [id number] CDT!13 Miscellaneous - Arielle Harris L.PChristy - 04/05/2017 11:23 AM CDT Adult Cigar Wrapper Tender Automatic Intake/History Adult Cigar Wrapper Tender Automatic Intake/History Entered On: 04/05/2017 11:26 CDT Performed [...] 04/05/2017 11:23 CDT General Info Languages : Haitian Is Patient Female and 13-50 no hysterectomy [...] HARRIS LPN - 04/05/2017 11:23 CDT Source: [facility] [employer] Document Id: [id number] CDT!45 documented in this encounter Plan of Treatment Not on filedocumented as of this encounter Visit Diagnoses Not on filedocumented in this encounter Additional Health Concerns Assessment Noted Time PHQ-9 Depression Total Score: 04/05/2017 2:38 PM CD T documented as of this encounter Care Teams Owner Operator Relationship Specialty Start Date End Date Holley Arreola APRN, C.N.P. PCP - General 01/27/17 12/09/17 documented as of this encounter
--- OUTSIDE RECORDS SUMMARY | 2022-07-06 10:27 | XMS_ITS | Encounter Summary ---
:1995 Author Organization [facility] Address [address] [place] [address] Care Team Providers Name Role Phone Unavailable Primary Care Provider Unavailable Encounter Details Date Type Department Care Team Description 11/16/2016 Hospital Encounter HX [facility] [place] Francisca Arreola, PHARMACEUTICAL WORKER, C.N.P. [address] [place], [place] [address] (Wo rk) Social History [...] How often do you attend restorationism or zoroastrianism Never 10/23/2020 services? 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 I ordered vaginal clindamycin to be taken as directed for symptom management. Ordered: OV Est Pt Level 4 - 22897 - 25 min Vaginitis Panel, DNA (Genital) Vaginal Itching See #2 above. All questions were answered. He left in no acute distress. A total of 25 minutes with20 minutes used for counseling and coordination of care. Ordered: OV Est Pt Level 4 - 57815 - 25 min Vaginitis Panel, DNA (Genital) Orders: venlafaxine, 75 mg = 1 cap(s), PO, Daily, # 30 cap(s), 2 Refill(s), Maintenance, Pharmacy: [facility] Electronically Signed By: HOLLEY ARREOLA NP On: 11/28/2016 10:24 PM Source: [facility] POWERCHART Document Id: [id number] documented in this encounter Miscellaneous Notes Miscellaneous - Tami Ceballos - 12/21/2016 2:27 PM CDT Health Maintenance Reminder December 21, 2016 DHIRAJ LANDA [address] [facility] [address] Dear DHIRAJ LANDA, We have developed a [...] visit with us more convenient. Please call [phone] to schedule services that are past due or that may shortly become due (thank you if you have already done so). We will follow up in three to six months should you have more services to schedule at that time. If you have already received any of the listed past due or upcoming services outside of [facility], please call [phone] to add them to your medical record. You may want to consider contacting your health insurance company to make sure these services are covered and find out if there will be any vif-pl-wvwtim expense. If you have any questions about the services listed above, or if you are no longer receiving care from [facility], please contact us at [phone]. Thank you for partnering to provide you with the best care possible. Thank you for choosing us, Holley Arreola R.N. and the [place] [facility] Team, for your health care needs! Sincerely, TAMI CEBALLOS Electronic Signature Electronically Signed By: TAMI CEBALLOS On: December 21, 2016 This document has images extracted. Source: [facility] POWERCHART Document Id: [id number] Electronically signed by Conversion, [facility] Planning Official [id number] at 01/25/2017 6:57 AM CDT Miscellaneous - Dennys Nelson - 11/22/2016 3:49 PM CDT PA Clindamycin From: DENNYS NELSON ([place] Clinic Rv Mechanic/Referrals) To: DENNYS NELSON; Sent: 11/22/2016 15:49:17 CDT Subject: PA Clindamycin PA submitted on [facility] PA approved 11/19/2016-12/23/2016 Source: [facility] mPortal Document Id: [id number] Electronically signed by Conversion, [facility] Planning Official [id number] at 01/25/2017 6:57 AM CDT Miscellaneous - [...] voice mail with the phone number of [phone]. I did, then call her back and got a voice mail. I then left a very generic message that there was a prescription awaiting her pickler helper at [facility] and instructed her to call back should she want specifics. Addendum by CONSUELO DIA LPN on November 17, 2016 11:41:25 CDT called and lvm to contact us regarding message below. From: HOLLEY ARREOLA FAUCET POLISHER To: [place] Family Medicine Nurse Mitesh; Sent: 11/17/2016 11:26:59 CDT Show up: 11/17/2016 11:26:00 CDT Subject: Results Notification Please call patient and let her know that her vaginal panel was positive for bacteria, but no fungalinfection. I sent a script for clindamycin vaginal application to [facility]. Thanks! Results: Date Result Type Ind Result Name MBO POS Vaginosis Panel, DNA Source: [facility] [employer]amCHART Document Id: [id number] Consuelo Diaz L.PChristy - 11/16/2016 2:30 PM [...] DIA LPN - 11/16/2016 14:30 CDT Source: [facility] mPortal Document Id: [id number] CDT!11 Consuelo Diaz L.PChristy - 11/16/2016 2:30 [...] DIA LPN - 11/16/2016 14:30 CDT Source: [employer] Document Id: [id number] CDT!13 Miscellaneous - Holley Arreola R.N. - 11/16/2016 1:56 PM CDT Ambulatory Patient Summary [address] [id number] Visit Information Name: SYEDA DHIRAJ PAWEL [facility] Number: [id number] Current Date: 11/16/2016 13:56:55 Physicians Attending Provider: HOLLEY ARREOLA NP Primary Care Provider: HOLLEY ARREOLA FAUCET POLISHER DHIRAJ LANDA has been given the following [...] nasal (Flonase 0.05 mg/inh nasal spray) 2 Brohman(s), Nasal, two times a day fluticasone-salmeterol (Advair [...] day This is a CHANGE Routed to [address] [address] Stop Taking the Following Medications: Medication list [...] of emergency. Electronically Signed By: HOLLEY ARREOLA FAUCET POLISHER Signed On:16-NOV-2016 13:56:50 Your Allergies & Intolerances [...] form. Youll be asked for your [facility] number which you can find at the top of this document. Your Goals/Additional instructions: Source: [facility] POWERCHART Document Id: [id number] Miscellaneous - Holley Arreola R.N. - 11/16/2016 1:56 PM CDT Ambulatory Discharge Medication List [address] [place] [id number] Visit Information Name: DHIRAJ LANDA [facility] Number: [id number] Current Date: 11/16/2016 13:56:54 Attending Provider: HOLLEY ARREOLA FAUCET POLISHER Primary Care Provider: HOLELY ARREOLA FAUCET POLISHER DHIRAJ LANDA has been given the following [...] nasal (Flonase 0.05 mg/inh nasal spray) 2 Brohman(s), Nasal, two times a day fluticasone-salmeterol (Advair [...] day This is a CHANGE Routed to [address] [place] [address] Stop Taking the Following Medications: Medication list [...] of emergency. Electronically Signed By: HOLLEY ARREOLA FAUCET POLISHER Signed On:16-NOV-2016 13:56:50 Additional Information: Source: [facility] POWERCHART Document Id: [id number] Miscellaneous - Victoriano Vicente LGonzaloP.N. - 11/16/2016 1:21 PM CDT Adult Middle School Humanities Teacher Intake/History Adult Middle School Humanities Teacher Intake/History Entered On: 11/16/2016 13:26 CDT Performed [...] Information Given By : Patient Languages : Zimbabwean Is Patient Female and [...] VICTORIANO VICENTE - 11/16/2016 13:21 CDT Source: [facility] POWERCHART Document Id: [id number] CDT!40 documented in this encounter Plan of [...] Component Value Ref Test Analysis Performed At [facility] gist Range Method Time Signature HXVaginitis [...]
--- OUTSIDE RECORDS SUMMARY | 2022-07-06 10:27 | XMS_ITS | Encounter Summary ---
:1995 Author Organization [facility] Address [address] [place] [address] Care Team Providers Name Role Phone Unavailable Primary Care Provider Unavailable Encounter Details Date Type Department Care Team Description 12/05/2015 Hospital Encounter HX [facility] [place] Francisca Arreola, MANAGED CARE LIAISON, C.N.P. [address] [place], [place] [address] (Wo rk) Social History [...] How often do you attend lutheran or zoroastrian Never 10/23/2020 services? 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 - 12/05/2015 2:59 PM CDT [id number] CHIEF COMPLAINT/REASON FOR VISIT Depression follow up. [...] ARREOLA NP On: 12/08/2015 08:55 AM Source: [facility] MHSDOLBEYNONRADSYS Document Id: [id number] documented in this encounter Miscellaneous Notes Miscellaneous - Holley Arreola R.N. - 12/05/2015 3:56 PM CDT Ambulatory Patient Summary [address] [id number] Visit Information Name: SYEDA DHIRAJ PAWEL [facility] Number: [id number] Current Date: 12/05/2015 15:56:04 [...] nasal (Flonase 0.05 mg/inh nasal spray) 2 [place](s), Nasal, two times a day fluticasone-salmeterol (Advair [...] of this document. Your Goals/Additional instructions: Source: [facility] Front Desk HQ Document Id: [id number] Miscellaneous - Holley Arreola R.N. - 12/05/2015 3:56 PM CDT Ambulatory Discharge Medication List [address] [id number] Visit Information Name: DHIRAJ LANDA [facility] Number: [id number] Visit Date: 12/05/2015 15:56:03 Attending Provider: HOLLEY ARREOLA SLIP CASTER Primary Care Provider: HOLLEY ARREOLA SLIP CASTER DHIRAJ LANDA has been given the following [...] nasal (Flonase 0.05 mg/inh nasal spray) 2 Norway(s), Nasal, two times a day fluticasone-salmeterol (Advair [...] of emergency. Electronically Signed By: HOLLEY ARREOLA SLIP CASTER Signed On:05-DEC-2015 15:55:53 Additional Information: Source: [facility] POWERCHART Document Id: [id number] Miscellaneous - Phyllis Vicente, L.P.N. - 12/05/2015 3:24 PM CDT Adult Weaving Instructor Intake/History Adult Weaving Instructor Intake/History Entered On: 12/05/2015 15:30 CDT Performed [...] 12/05/2015 15:24 CDT General Info Languages : Mosotho Is Patient Female and 13-50 no hysterectomy [...] PHYLLIS VICENTE - 12/05/2015 15:24 CDT Source: [employer] Document Id: [id number] CDT!44 Miscellaneous - Dennys Nelson - 12/05/2015 3:08 PM CDT Quality Measures Quality Measures Entered On: 12/23/2015 15:08 CDT Performed On: 12/05/2015 15:08 CDT by DENNYS NELSON Depression PHQ-9 Score : 17 DENNYS NELSON - 12/23/2015 15:08 CDT Source: [employer] Document Id: [id number] CDT!3 documented in this encounter Plan of Treatment Not on filedocumented as of this encounter Visit Diagnoses Not on filedocumented in this encounter
--- OUTSIDE RECORDS SUMMARY | 2022-07-06 10:27 | XMS_ITS | Encounter Summary ---
:1995 [facility] Address [address] [place] [address] Care Team Providers Name Role Phone Unavailable Primary Care Provider Unavailable Encounter Details Date Type Department Care Team Description 09/17/2016 Hospital Encounter HX [facility] FAMILY ID Francisca Saucedo, CUSHION STUFFER, C.N.P. [address] [place], [place] [address] (Wo rk) Social History [...] How often do you attend mu-ism or cheondoism Never 10/23/2020 services? Do you [...] at Date Recorded Female 08/12/2017 10:51 AM CARDER BLANKETS documented as of this encounter Last Filed Vital Signs Vital Sign Reading Time Taken Comments Blood Pressure 117/62 09/17/2016 3:07 PM CARDER BLANKETS Pulse 70 09/17/2016 3:07 PM CARDER BLANKETS Temperature - - Respiratory Rate 16 09/17/2016 3:07 PM CARDER BLANKETS Oxygen Saturation - - Inhaled Oxygen Concentration - - Weight - - Height 167 cm (5' 5.75) 09/17/2016 3:07 PM CARDER BLANKETS Body Mass Index - - documented in [...] Ordered: OV Est Pt Level 4 - 79141 - 25 min Vaginitis Panel, DNA (Genital) Vaginal Itching See #1. All questions were answered. She left in no acute distress. A total of 25 minutes with 20 minutes used for counseling and coordination of care. Ordered: OV Est Pt Level 4 - 91616 - 25 min Vaginitis Panel, DNA (Genital) Electronically Signed By: HOLLEY SAUCEDO PATIENT ASSISTANT On: 09/27/2016 08:44 AM Source: [facility] POWERCHART Document Id: [id number] ER BLANKETS documented in this encounter Miscellaneous Notes Miscellaneous - Holley Saucedo, R.N. - 09/18/2016 8:22 AM CST Results Notification Document Contains Addenda Addendum by DORIAN DAVENPORT LPN on September 18, 2016 09:10:06 CARDER BLANKETS Patient notified. From: HOLLEY SAUCEDO PATIENT ASSISTANT To: [place] [facility] Nurse Mitesh; Sent: 09/18/2016 08:22:08 CARDER BLANKETS Show up: 09/18/2016 08:22:00 CARDER BLANKETS Subject: Results Notification Please call patient and let her know that her vaginal swab was positive for both a fungal and bacterial component. I sent a script for Flagyl twice daily to [facility]. She can also get a OTC topical fungal medication to treat the fungal component. Thanks! Results: Date Result Type Ind Result Name MBO POS Vaginosis Panel, DNA Source: [employer] Document Id: [id number] Electronically signed by Conversion, [facility] Thermal Molder [id number] at 01/25/2017 12:22 AM CDT Miscellaneous - Holley Saucedo R.N. - 09/18/2016 8:21 AM CST Positive Vaginosis Panel From: HOLLEY SAUCEDO PATIENT ASSISTANT Sent: 09/18/2016 08:21:01 CARDER BLANKETS ! Show up: 09/18/2016 08:19:00 CARDER BLANKETS Subject: Positive Vaginosis Panel Please call patient and let her know that her vaginal swab was positive for both a fungal and bacterial component. I sent a script for Flagyl twice daily to [facility]. She can also get a OTC topical fungal medication to treat the fungal component. Thanks! Results: Date Result Type Ind Result Name MBO POS Vaginosis Panel, DNA Source: [employer] Document Id: [id number] Electronically signed by Conversion, [facility] Thermal Molder [id number] at 01/25/2017 12:22 AM CDT Ramona - Vinnie Lyman L.PGonzaloN. 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 : No VINNIE LYMAN LPN - 09/17/2016 15:07 CARDER BLANKETS Subjective Pain Symptoms : No VINNIE LYMAN LPN - 09/17/2016 15:07 CARDER BLANKETS Dependent Habits Exposure to Tobacco Smoke : Care provider denies smoking in home, Other: former smoker Smoking Status : Former smoker Tobacco 2A : Yes Tobacco Use/Currently Using : No Tobacco Use/Last 30 Days : No Tobacco Use/Last 12 months : No Alcohol Use : Yes VINNIE LYMAN LPN - 09/17/2016 15:07 CARDER BLANKETS Caffeine Use Grid Caffeine Use : Current Type : Soft drinks Frequency : Occasionally VINNIE LYMAN LPN - 09/17/2016 15:07 CARDER BLANKETS Recreational Drug Use Grid Drug Use : None VINNIE LYMAN LPN - 09/17/2016 15:07 CARDER BLANKETS Source: [facility] ImmusanTCHART Document Id: [id number] CARDER BLANKETS!38 ER BLANKETS documented in this encounter Plan of Treatment Not on filedocumented as of this encounter Procedures Procedure Name Priority Date/Time Associated Diagnosis Comme nts VAGINITIS BATTERY, Routine 09/17/2016 3:30 PM Res ults for this DNA (GENITAL) CARDER BLANKETS procedure are in the results section. documented in this encounter Results (ABNORMAL) VAGINITIS BATTERY, DNA (GENITAL) (09/17/2016 3:30 PM CARDER BLANKETS) Component Value Ref Test Analysis Performed At [facility] Range Method Time Signature HXVaginitis (POSITIVE) POWERCHART Battery, DNA (Genital) HXFinal Trichomonas POWERCHART vaginalis DNA negative HXFinal Gardnerella POWERCHART vaginalis DNA positive HXFinal Veroncia species POWERCHART DNA positive HXFinal Reference: POWERCHART Negative Specimen (Source) Anatomical Collection Method Collection Time Re ceived Time Location / / Volume Laterality Vagina 09/17/2016 3:30 PM CARDER BLANKETS Holley Saucedo APRN, C.N.P. LAB HISTORICAL ORDERS Performing Organization Address City/State/ZIP Code Phon e Number POWERCHART documented in this encounter Visit Diagnoses Not on filedocumented in this encounter
--- OUTSIDE RECORDS SUMMARY | 2022-07-06 10:27 | XMS_ITS | Encounter Summary ---
:1995 Author Organization [facility] Address [address] [place] [address] Care Team Providers Name Role Phone Unavailable Primary Care Provider Unavailable Encounter Details Date Type Department Care Team Description 08/15/2016 Hospital Encounter HX [facility] ED Ramsey Kahn M.D. [address] [place], [place] [address] (Wo rk) Social History [...] How often do you attend faith or worship Never 10/23/2020 services? Do you [...] Date Recorded Female 08/12/2017 10:51 AM FLUE CLEANER documented as of this encounter Last Filed Vital Signs Vital Sign Reading Time Taken Comments Blood Pressure 130/84 08/15/2016 3:48 PM FLUE CLEANER Pulse 78 08/15/2016 3:48 PM FLUE CLEANER Temperature - - Respiratory Rate 16 08/15/2016 3:48 PM FLUE CLEANER Oxygen Saturation - - Inhaled Oxygen Concentration - - Weight - - Height - - Body Mass Index - - documented in this encounter Discharge Summaries Shirley Marsh RYamileth. - 08/15/2016 4:24 PM CST ED Depart Summary [facility] Emergency Department Clinical Discharge Summary PERSON INFORMATION Name DHIRAJ LANDA Age 21 Years 1995 12:00 AM Sex Female Language Irish PCP AMANDA ARREOLA PSYCHIATRIC CLINICIAN Mar[facility] Status [id number] Reason UC - Sinus Pain or Congestion; Sinus congestion Specialty Enc Type Emergency Med Service Emergency Medicine Referred by [facility] ED Discharge 08/15/2016 4:24 PM Tracking Id [id number] Checkout 08/15/2016 4:24 PM Checkin 08/15/2016 3:43 PM Acuity 5 -Non Urgent Dispo Type * Discharged to Home or Self Care Arrival 08/15/2016 3:43 PM Reg Status Complete LOS 000 00:41 Address: [address] [address] Comment: PROVIDER INFORMATION Provider Role Provider Contact Time RAJESH KAHN MD ED Provider 08/15/16 15:57 SHIRLEY MARSH OCEANOGRAPHY PROFESSOR Nurse 08/15/16 16:05 DIAGNOSIS Dependence (Tobacco) Nicotine; Sinusitis Acute NOS Comment: PATIENT EDUCATION INFORMATION Instructions: Acute Sinusitis Follow up: With: Address: When: AMANDA ARREOLA [address] [place] [address] [facility] (2) Within As Needed Source: [facility] POWERCHART Document Id: [id number] CLEANER Shirley Marsh R.N. - 08/15/2016 4:24 PM CST ED Discharge Instructions [address] [address] Name: DHIRAJ LANDA Date of : 1995 12:00 AM Visit Date: 08/15/2016 3:43 PM [facility] Number: [id number] Address: [address] [facility] [address] Primary Care Provider: AMANDA ARREOLA NP IMPORTANT: [facility] in [place] would like to thank you for allowing us to assist you with your healthcare needs. The following includes patient education materials and informationregarding your injury/illness. Diagnosis: Dependence (Tobacco) Nicotine; Sinusitis Acute NOS Follow-Up Instructions: With: Address: When: AMANDA ARREOLA [address] [place] [address] [place] [address] Business (1) Within As Needed Your Upcoming [...] Take ibuprofen or Aleve for pain. ?? [phone] [facility], [address] [place] [address], [place] [address]. All rights reserved. This information is not [...] if you dont have one. Go to [email or web address] and click on Create Your Account. Then, follow the directions to complete the online form. Youll be asked for your [facility] number which you can find at the [...] document has images extracted. Please consider using [employer] for all your patient education needs. Source: [facility] POWERCHART Document Id: [id number] CLEANER documented in this encounter Medications at Time [...] Note : Chief Complaint Description 08/15/2016 15:48 FLUE CLEANER Chief Complaint Description presents with sinus congestion [...] profile not seen on sono: f/u ordered ([id number]): Onset on 06/06/2013 at 18 years. Resolved on 12/27/2013 at 18 years. Otitis Media Acute NOS (103978225): Resolved. Pneumonia NOS (651692884): Resolved. Varicella Zoster (173141345): Resolved. Vaginosis Bacterial (616.10): Resolved. 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 Physical Examination Vital Signs: Vital Signs 08/15/2016 15:48 FLUE CLEANER Temperature Core 36.8 DegC Peripheral Pulse Rate [...] KAHN MD On: 08/15/2016 04:29 PM Source: [facility] Document Id: [id number]} CLEANER Shirley Marsh RGonzaloNGonzalo - 08/15/2016 4:14 PM CST ED Pain Assessment ED Pain Assessment Entered On: 08/15/2016 16:14 FLUE CLEANER Performed On: 08/15/2016 16:14 FLUE CLEANER by SHIRLEY MARSH RN Pain Assessment Pain Symptoms : Yes SHIRLEY MARSH RN - 08/15/2016 16:14 FLUE CLEANER [facility] Document Id: [id number] FLUE CLEANER!3 CLEANER Shirley Marsh R.N. - 08/15/2016 4:14 PM CST ED Disposition Summary ED Disposition Summary Entered On: 08/15/2016 16:14 FLUE CLEANER Performed On: 08/15/2016 16:14 FLUE CLEANER by SHIRLEY MARSH OCEANOGRAPHY PROFESSOR Disposition Summary Present in Room During Exam/Procedure : Alone Mode of Discharge : Ambulatory Transportation : Private vehicle Printed Discharge Instructions Given to Patient : Yes SHIRLEY MARSH RN - 08/15/2016 16:14 FLUE CLEANER Source: [facility] [employer] Document Id: [id number] FLUE CLEANER!6 CLEANER Shirley Marsh R.N. - 08/15/2016 4:05 PM CST ED Primary Assessment Document Has Been Updated ED Primary Assessment Entered On: 08/15/2016 16:06 FLUE CLEANER Performed On: 08/15/2016 16:05 FLUE CLEANER by SHIRLEY MARSH RN Reason For Visit (As Of: 08/15/2016 16:06:38 FLUE CLEANER) Problems(Active) Asthma NOS (493.90) (ICD-9-CM :493.90 ) [...] Medical ; Code: F32.9 ; Contributor System: Pond5 ; Last Updated: 06/20/2015 9:35 FLUE CLEANER ; Life Cycle Status: Active ; Responsible Provider: ELBA, LISELLE M PSYCHIATRIC CLINICIAN; Vocabulary: ICD-10-CM Hypertension HTN Gestational (PIH) Delivered (ICD-9-CM :642.31 ) Name of Problem: Hypertension HTN Gestational (PIH) Delivered ; Recorder: LORY VILLA MD; Confirmation: Confirmed ; Classification:Medical ; Code: 642.31 ; Contributor System: Pond5 ; Last Updated: 12/27/2013 19:03 CDT ; Life Cycle Date: 12/27/2013 ; Life Cycle Status: Active ; Vocabulary: ICD-9-CM Diagnoses(Active) UC - Sinus Pain or Congestion Date: 08/15/2016 ; Diagnosis Type: Reason For Visit ; Confirmation: Complaint of ; Clinical Dx: UC - Sinus Pain or Congestion ; Classification: Medical ; Clinical Service:Emergency medicine ; Code: PNED ; Probability: 0 ; Diagnosis Code: [id number] Triage Mode of Arrival ED : Private vehicle Track : Medical Languages : Irish Treatments Prior to Arrival : None Are you ? : No Is Patient Female and 13-50 no hysterectomy : Yes Status : Patient denies SHIRLEY MARSH RN - 08/15/2016 16:05 FLUE CLEANER Pain Assessment Pain Symptoms : Yes SHIRLEY MARSH RN - 08/15/2016 16:05 FLUE CLEANER Respiratory Airway : Patent Respirations : Unlabored Respiratory Pattern : Regular SHIRLEY MARSH RN - 08/15/2016 16:05 FLUE CLEANER Cardiovascular Heart Rhythm : Regular Skin Color : Normal for ethnicity Skin Description : Dry Skin Temperature : Warm SHIRLEY MARSH RN - 08/15/2016 16:05 FLUE CLEANER Neurological Last Well Time Known : Not applicable Level of Consciousness : Alert Orientation : Oriented x 3 Characteristics of Speech : Appropriate for age SHIRLEY MARSH RN - 08/15/2016 16:05 FLUE CLEANER ED Psychosocial Affect/Behavior : Calm, Cooperative, Appropriate Domestic Abuse Concerns : None Behavioral Health Screen/Safety Assmt : No SHIRLEY MARSH RN - 08/15/2016 16:05 FLUE CLEANER Gastrointestinal Nutrition ED : Adequate SHIRLEY MARSH RN - 08/15/2016 16:05 FLUE CLEANER Musculoskeletal Fall Prevention Education Provided : SHIRLEY SOTELO RN - 08/15/2016 16:05 FLUE CLEANER Social Habits Exposure to Tobacco Smoke : Care provider denies smoking in home, Other: former smoker Smoking Status : Never smoker Tobacco 2A : No Tobacco Use/Currently Using : No Tobacco Use/Last 30 Days : No Tobacco Use/Last 12 months : No SHIRLEY MARSH RN - 08/15/2016 16:05 FLUE CLEANER Alcohol Use Grid Alcohol Use : No SHIRLEY MARSH RN - 08/15/2016 16:05 FLUE CLEANER Recreational Drug Use Grid Drug Use : None SHIRLEY MARSH RN - 08/15/2016 16:05 FLUE CLEANER Source: [facility] SocialDiabetesCHART Document Id: [id number] FLUE CLEANER!46 CLEANER Shirley Marsh R.N. - 08/15/2016 3:48 PM CST ED Triage Assessment Document Has Been Updated ED Triage Assessment Entered On: 08/15/2016 15:50 FLUE CLEANER Performed On: 08/15/2016 15:48 FLUE CLEANER by SHIRLEY MARSH RN Reason For Visit (As Of: 08/15/2016 15:50:20 FLUE CLEANER) Problems(Active) Asthma NOS (493.90) (ICD-9-CM :493.90 ) [...] Medical ; Code: F32.9 ; Contributor System: Pond5 ; Last Updated: 06/20/2015 9:35 FLUE CLEANER ; Life Cycle Status: Active ; Responsible [...] PNED ; Probability: 0 ; Diagnosis Code: [id number] Triage Chief Complaint Description : presents with sinus congestion for 3 days Information Given By : Patient Present in Room During Exam/Procedure : Alone Mode of Arrival ED : Private vehicle Track : Medical Languages : Irish Patient Informed of Triage Location : Emergency department Vital Signs Assessed : Yes Treatments Prior to Arrival : None Are you ? : No Is Patient Female and 13-50 no hysterectomy : Yes Status : Patient denies SHIRLEY MARSH RN - 08/15/2016 15:48 FLUE CLEANER Vital Signs Temperature Core : 36.8 DegC(Converted to: 98.2 DegF) Peripheral Pulse Rate : 78 /min Respiratory Rate : 16 /min Systolic Blood Pressure : 130 mmHg Diastolic Blood Pressure : 84 mmHg NIBP Mean : 99 mmHg BP Location : Left upper extremity SpO2 : 98 % Oxygen Therapy : Room air SHIRLEY MARSH RN - 08/15/2016 15:48 FLUE CLEANER Pain Assessment Pain Symptoms : Yes SHIRLEY MARSH RN - 08/15/2016 15:48 FLUE CLEANER Pain Scale Pain Scale Verbal 0-10 : Open SHIRLEY MARSH RN - 08/15/2016 15:48 FLUE CLEANER Pain Pain Assessment Grid Pain 1 Location : Head Laterality : Bilateral Intensity : 6 SHIRLEY MARSH RN - 08/15/2016 15:48 FLUE CLEANER ED Physician Notification Time ED Physician Notification Time : 08/15/2016 15:50 FLUE CLEANER SHIRLEY MARSH RN - 08/15/2016 15:48 FLUE CLEANER RAMA DCP GENERIC CODE Tracking Acuity : 5 -Non Urgent Tracking Group : [facility] ED SHIRLEY MARSH RN - 08/15/2016 15:48 FLUE CLEANER Allergy (As Of: 08/15/2016 15:50:20 FLUE CLEANER) Allergies (Active) Suprax Estimated Onset Date: <not entered> 06/01/2013 ; Reactions: Unknown ; Comments: Comment1: Unknown reaction as a child ; Created By: SKY CUMMINS MD; Reaction Status: Active ; Category: Drug ; Substance: Suprax ; Type: Allergy ; Updated By: SKY CUMMINS MD; Source: Paper Chart/Abstracting ; Reviewed Date: 08/15/2016 15:50 FLUE CLEANER ID Screen Drug Resistant Organism : No Travel Within Last 21 Days : No Contact with someone with Ebola : No SHIRLEY MARSH RN - 08/15/2016 15:48 FLUE CLEANER Immunizations Influenza : None SHIRLEY MARSH RN - 08/15/2016 15:48 FLUE CLEANER [facility] Document Id: [id number] FLUE CLEANER!46 CLEANER documented in this encounter Miscellaneous Notes Miscellaneous - Conversion, Historical Provider Ser - 08/15/2016 4:24 PM FLUE CLEANER Coding Summary-Paper Based CODING DATE: 08/21/2016 FINAL [facility] STATUS: * Discharged to Home or [...] SOLER Date Saved: 08/21/2016 12:38 pm Source: [employer] Document Id: [id number] Miscellaneous - Rajesh Kahn M.D. - 08/15/2016 4:17 PM CST Work Excuse August 15, 2016 DHIRAJ LANDA [address] [facility] [address] [place] [address] Dear DHIRAJ LANDA, You were examined in [...] August 17. Notes: _ Sincerely, RAJESH KAHN [address] [place] [address] Electronic Signature Electronically Signed By: RAJESH KAHN MD On: August 15, 2016 This document has images extracted. Source: [facility] [employer] Document Id: [id number] Electronically signed by Stuart [facility] Clinical Haematologist [id number] at 01/24/2017 10:16 PM CDT Miscellaneous - Shirley Marsh RGonzaloNGonzalo - 08/15/2016 4:14 PM CST Valuables/Belongings Valuables/Belongings Entered On: 08/15/2016 16:14 FLUE CLEANER Performed On: 08/15/2016 16:14 FLUE CLEANER by SHIRLEY MARSH RN Valuables/Belongings Home Medication Disposition : None brought in with patient SHIRLEY MARSH RN - 08/15/2016 16:14 FLUE CLEANER Source: [facility] [employer] Document Id: [id number] FLUE CLEANER!3 CLEANER Miscellaneous - Shirley Marsh RGonzaloN. - 08/15/2016 3:43 PM CST Facility Charge Ticket 2.0 11.0 DX Facility Charge Ticket 2.0 11.0 DX Entered On: 08/15/2016 16:14 FLUE CLEANER Performed On: 08/15/2016 15:43 FLUE CLEANER by SHIRLEY MARSH RN Facility Charge Ticket [...] Control : 5 Lynx Visit Level : 99520 Level 3 Treatments Prior to Arrival : None SHIRLEY MARSH RN - 08/15/2016 16:14 FLUE CLEANER [facility]: [facility] SentinelCHART Document Id: [id number] FLUE CLEANER!17 CLEANER documented in this encounter Plan of Treatment Not on filedocumented as of this encounter Visit Diagnoses Not on filedocumented in this encounter
--- OUTSIDE RECORDS SUMMARY | 2022-07-06 10:27 | XMS_ITS | Encounter Summary ---
:1995 Author Organization [facility] Address [address] [place] [address] Care Team Providers Name Role Phone Unavailable Primary Care Provider Unavailable Encounter Details Date Type Department Care Team Description 06/20/2015 Hospital Encounter [facility] [place] Francisca Arreola, PRODUCTION MAINTENANCE MECHANIC, C.N.P. [address] [place], [place] [address] (Wo rk) Social History [...] How often do you attend jainism or yazdanism Never 10/23/2020 services? 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 - 06/20/2015 8:41 AM CST [id number] CHIEF COMPLAINT/REASON FOR VISIT General medical exam. [...] user. She has 1 daughter who is [id number] months old. She works at [facility]. 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 - 06/20/2015 9:26 AM CST Ambulatory Patient Summary [address] [id number] Visit Information Name: GORDOSTEPHDHIRAJ WRIGHT PAWEL [facility] Number: [id number] Current Date: 06/20/2015 09:26:31 Physicians Attending Provider: HOLLEY ARREOLA DIRECTOR EXPORT Primary Care Provider: HLOLEY ARREOLA DIRECTOR EXPORT DHIRAJ LANDA has been given the following [...] nasal (Flonase 0.05 mg/inh nasal spray) 2 Glenwood(s), Nasal, two times a day fluticasone-salmeterol (Advair Diskus 250 mcg-50 mcg inhalation powder) 1 puff(s), Inhalation, two times a day medroxyPROGESTERone (Depo-Provera Contraceptive 150 mg/mL intramuscular suspension) 1 Milliliter, Intramuscular, every 90 days sertraline (Zoloft 100 mg oral tablet) 1 Tablet(s), Oral, once a day Take 0.5 tablet x 1 week and then 1 tablet daily Routed to [facility] [address] [place] [address] traZODone (traZODone 50 mg oral tablet) 1 Tablet(s), Oral, once a day Routed to [facility] [address] [address] Stop Taking the Following Medications: Medication list [...] of emergency. Electronically Signed By: HOLLEY ARREOLA DIRECTOR EXPORT Signed On:20-JUN-2015 09:26:23 Your Allergies & Intolerances [...] if you dont have one. Go to [email or web address] and click on Create Your Account. Then, follow the directions to complete the online form. Youll be asked for your [facility] number which you can find at the top of this document. Your Goals/Additional instructions: Source: [facility] POWERCHART Document Id: [id number] MAKER Miscellaneous - Holley Arreola R.N. - 06/20/2015 9:26 AM CST Ambulatory Discharge Medication List [address] [place] [id number] Visit Information Name: DHIRAJ LANDA [facility] Number: [id number] Visit Date: 06/20/2015 09:26:29 Attending Provider: HOLLEY ARREOLA NP Primary Care Provider: HOLLEY ARREOLA DIRECTOR EXPORT DHIRAJ LANDA has been given the following [...] nasal (Flonase 0.05 mg/inh nasal spray) 2 Glenwood(s), Nasal, two times a day fluticasone-salmeterol (Advair Diskus 250 mcg-50 mcg inhalation powder) 1 puff(s), Inhalation, two times a day medroxyPROGESTERone (Depo-Provera Contraceptive 150 mg/mL intramuscular suspension) 1 Milliliter, Intramuscular, every 90 days sertraline (Zoloft 100 mg oral tablet) 1 Tablet(s), Oral, once a day Take 0.5 tablet x 1 week and then 1 tablet daily Routed to [facility] [address] [id number] traZODone (traZODone 50 mg oral tablet) 1 Tablet(s), Oral, once a day Routed to [facility] [address] [address] Stop Taking the Following Medications: [...] of emergency. Electronically Signed By: HOLLEY ARREOLA DIRECTOR EXPORT Signed On:20-JUN-2015 09:26:23 Additional Information: Source: [facility] POWERCHART Document Id: [id number] MAKER Miscellaneous - Teresa Parkinson L.P.N. - 06/20/2015 8:47 AM CST Adult Receiving Room Clerk Intake/History Adult Receiving Room Clerk Intake/History Entered On: 06/20/2015 8:50 SIGN MAKER Performed On: 06/20/2015 8:47 SIGN MAKER by TERESA PARKINSON COCKTAIL SERVER Intake Chief Complaint : EST care and [...] kg/m2 TERESA PARKINSON LPN - 06/20/2015 8:47 SIGN MAKER General Info Languages : Haitian Is Patient Female and 13-50 no hysterectomy : Yes Status : Patient denies Are you ? : No TERESA PARKINSON LPN - 06/20/2015 8:47 SIGN MAKER Subjective Pain Symptoms : No TERESA PARKINSON LPN - 06/20/2015 8:47 SIGN MAKER Dependent Habits Tobacco Use/Currently Using : No Exposure to Tobacco Smoke : Care provider denies smoking in home, Other: former smoker Smoking Status : Former smoker Alcohol Use : No TERESA PARKINSON LPN - 06/20/2015 8:47 SIGN MAKER Caffeine Use Grid Caffeine Use : Current Type : Soft drinks Frequency : Occasionally TERESA PARKINSON LPN - 06/20/2015 8:47 SIGN MAKER Recreational Drug Use Grid Drug Use : None TERESA PARKINSON LPN - 06/20/2015 8:47 SIGN MAKER Source: [facility] POWERCHART Document Id: [id number] SIGN MAKER!39 MAKER documented in this encounter Plan of Treatment Not on filedocumented as of this encounter Visit Diagnoses Not on filedocumented in this encounter
--- OUTSIDE RECORDS SUMMARY | 2022-07-06 10:27 | XMS_ITS | Encounter Summary ---
:1995 Author Organization [facility] Address [address] [place] [address] Care Team Providers Name Role Phone Unavailable Primary Care Provider Unavailable Encounter Details Date Type Department Care Team Description 01/03/2017 Hospital Encounter HX [facility] [place] Francisca Arreola, TEST ENGINEERING TECHNICIAN, C.N.P. [address] [place], [place] [address] (Wo rk) Social History [...] How often do you attend yazdanism or lutheran Never 10/23/2020 services? 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 She will be due for a PHQ-9 and BO-7 screening in June of 2017. Ordered: OV Est Pt Level 2 - 86563 - 10 min Screening Lipid I cancelled [...] # 1 each, 3 Refill(s), Maintenance, Pharmacy: [facility] venlafaxine, 75 mg = 1 cap(s), PO, Daily, # 90 cap(s), 1 Refill(s), Maintenance, Pharmacy: [facility], Please previous script 01/03/17 Electronically Signed By: HOLLEY ARREOLA HOG TENDER On: 01/03/2017 03:33 PM Source: [employer] Document Id: [id number] documented in this encounter Miscellaneous Notes Miscellaneous [...] MEDELLIN LPN - 01/03/2017 15:35 CDT Source: [employer] Document Id: [id number] CDT!14 Miscellaneous - Holley Arreola RGonzaloNGonzalo - 01/03/2017 3:19 PM CDT Ambulatory Patient Summary [address] [id number] Visit Information Name: DHIRAJ LANDA [facility] Number: [id number] Current Date: 01/03/2017 15:19:20 Physicians Attending Provider: HOLLEY ARREOLA HOG TENDER Primary Care Provider: HOLLEY ARREOLA HOG TENDER DHIRAJ LANDA has been given the following [...] Shortness of breath / Wheezing Routed to [address] [id number] fluticasone nasal (Flonase 0.05 mg/inh nasal spray) 2 Hubertus(s), Nasal, two times a day levonorgestrel-ethinyl estradiol (Chateal 0.15 mg-30 mcg oral tablet) 1 Tablet(s), Oral, once a day traZODone (traZODone 50 mg oral tablet) 1 Tablet(s), Oral, once a day venlafaxine (Effexor XR 75 mg oral capsule, extended release) 1 cap, Oral, once a day Routed to [address] [address] Stop Taking the Following Medications: [...] of emergency. Electronically Signed By: HOLLEY ARREOLA HOG TENDER Signed On:03-JAN-2017 15:19:15 Your Allergies & Intolerances [...] if you dont have one. Go to [email or web address] and click on Create Your Account. Then, follow the directions to complete the online form. Youll be asked for your [facility] number which you can find at the top of this document. Your Goals/Additional instructions: Source: [facility] POWERCHART Document Id: [id number] Miscellaneous - Holley Arreola R.N. - 01/03/2017 3:19 PM CDT Ambulatory Discharge Medication List [address] [id number] Visit Information Name: AILYN LANDAN PAWEL [facility] Number: [id number] Current Date: 01/03/2017 15:19:18 Attending Provider: HOLLEY ARREOLA HOG TENDER Primary Care Provider: HOLLEY ARREOLA HOG TENDER DHIRAJ LANDA has been given the following [...] Shortness of breath / Wheezing [facility] [address] [place] [id number] fluticasone nasal (Flonase 0.05 mg/inh nasal spray) 2 Hubertus(s), Nasal, two times a day levonorgestrel-ethinyl estradiol (Chateal 0.15 mg-30 mcg oral tablet) 1 Tablet(s), Oral, once a day traZODone (traZODone 50 mg oral tablet) 1 Tablet(s), Oral, once a day venlafaxine (Effexor XR 75 mg oral capsule, extended release) 1 cap, Oral, once a day Routed to [address] [address] Stop Taking the Following Medications: Medication list [...] of emergency. Electronically Signed By: HOLLEY ARREOLA HOG TENDER Signed On:03-JAN-2017 15:19:15 Additional Information: Source: [facility] POWERCHART Document Id: [id number] Miscellaneous - Jennifer Medellin LGonzaloP.N. - 01/03/2017 [...] None Behavioral Health Screen/Safety Assmt : No Judaism Preference : JENNIFER Jamison LPN - 01/03/2017 15:14 CDT Advance Directive Advanced Directives : No Advance Directive Additional Information : No JENNIFER MEDELLIN LPN - 01/03/2017 15:14 CDT Educ Needs Learning Style Preference Adult Grid Patient : None Family : None JENNIFER MEDELLIN LPN - 01/03/2017 15:14 CDT Source: [facility] DTT Document Id: [id number] CDT!37 Miscellaneous - Jennifer Medellin L.P.N. - 01/03/2017 2:52 PM CDT Adult Ip Attorney Intake/History Adult Ip Attorney Intake/History Entered On: 01/03/2017 14:55 CDT Performed [...] Information Given By : Patient Languages : Sami Is Patient Female and 13-50 no hysterectomy : Yes Status : Patient denies Are you ? : No JENNIFER MEDELLIN BASEBALL SCOUT - 01/03/2017 14:52 CDT Subjective Pain Symptoms [...] Soft drinks Frequency : Occasionally JENNIFER MEDELLIN [facility] - 01/03/2017 14:52 CDT Recreational Drug Use Grid Drug Use : None JENNIFER MEDELLIN LPN 01/03/2017 14:52 CDT Source: [facility] DTT Document Id: [id number] CDT!43 documented in this encounter Plan of Treatment Not on filedocumented as of this encounter Visit Diagnoses Not on filedocumented in this encounter Additional Health Concerns Assessment Noted Time PHQ-9 Depression Total Score: 14 11/16/2016 2:30 PM CD T documented as of this encounter
--- OUTSIDE RECORDS SUMMARY | 2022-07-06 10:27 | XMS_ITS | Encounter Summary ---
:1995 Author Organization [facility] Address [address] [place] [address] Care Team Providers Name Role Phone Unavailable Primary Care Provider Unavailable Encounter Details Date Type Department Care Team Description 04/05/2016 Hospital Encounter HX [facility] [place] Francisca Arreola, FANCY STITCHER, C.N.P. [address] [place], [place] [address] (Wo rk) Social History [...] How often do you attend mormon or baptist Never 10/23/2020 services? 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 Ordered: Chlamydia Gonorrhoeae Amplified RNA-[place] CGRNA OV Est Pt Prev [facility] 07-92 - [address] General Medical Exam Adult (GME) A Pap smear was completed today. We will send the results through the portal once completed. We discussed screening related to a lipid panel and fasting glucose. She is not fasting today. We will complete fasting lab work in one year. Age appropriate anticipatory guidance was provided. Ordered: OV Est Pt Prev Svc 18-99 - 33845 Need Vaccine (IN) NOS She received her first HPV injection today. She was instructed to return in 2 months for her secondinjection. All questions were answered. She left in no acute distress. Ordered: OV Est Pt Prev Svc 18-52 - 00805 Orders: Thin Prep Screen with HPV Reflex-[place] [id number] Electronically Signed By: HOLLEY ARREOLA GLASS FRAME FITTER On: 04/05/2016 06:57 PM Source: [employer] Document Id: [id number] documented in this encounter Procedure Notes Consuelo [...] DIA LPN - 05/26/2016 9:43 CDT Source: [employer] Document Id: [id number] CDT!10 documented in this encounter Miscellaneous Notes Miscellaneous - Tami Ceballos - 05/20/2016 10:40 AM CDT Quality Measure / ACT update Document Contains Addenda Addendum by CONSUELO DIA LPN on May 26, 2016 10:06:11 CDT From: CONSUELO DIA LPN ([place] [facility] Nurse [place]) To: TAMI CEBALLOS; Sent: 05/26/2016 10:06:11 CDT Subject: RE: Quality Measure / ACT update talked with pt- ACT was done and updated. From: TAMI CEBALLOS To: [place] [facility] [place]; Sent: 05/20/2016 10:40:35 CDT Subject: Quality Measure / ACT update This patient has been screened for Quality Measures and is due for a ACT update. Please reach out tothe patient to update the ACT and emergency visits/hosiptal stays. Last ACT datet: 10/20/2015 Score 16 Last office visit 03/19/2016 Thank you for your help. eHealth Source: [facility] Document Id: [id number] Electronically signed by Conversion, [facility] Carousel Attendant [id number] at 01/09/2017 2:00 AM CDT Miscellaneous - Holley Arreola, R.N. - 04/13/2016 3:36 PM CDT Normal Results Letter April 13, 2016 DHIRAJ LANDA [address] [facility] [address] Dear DHIRAJ LANDA, The results of your recent Pap smear were negative. If you have questions or concerns, please do nothesitate to call our office. Result Name Current Result Spec Desc-[place] See Comment 04/05/2016 ThPrep Scrn Accn-[place] [id number] 04/05/2016 ThPrep Scrn Cyto-[place]rea See Comment 04/05/2016 ThPrep Scrn Fnl-[place] See Comment 04/05/2016 Sincerely, HOLLEY ARREOLA [id number] [address] Electronic Signature Electronically Signed By: HOLLEY ARREOLA GLASS FRAME FITTER On: April 13, 2016 This document has images extracted. Source: [employer] Document Id: [id number] Electronically signed by Conversion, [facility] Carousel Attendant [id number] at 01/09/2017 2:00 AM CDT Miscellaneous - Holley Arreola, R.N. - 04/08/2016 4:40 PM CDT Normal Results Letter April 08, 2016 DHIRAJ LANDA [address] [place] [address] Dear DHIRAJ LANDA, I am pleased to report that your results from the following diagnostic test(s) are normal. Please follow up with us as we discussed during your visit or sooner if you have any concerns. If you have questions or concerns, please do not hesitate to call our office. Result Name Current Result Normal Range C trach Amp Src-[place] urine 04/05/2016 C trach Amp RNA-[place] Negative 04/05/2016 Negative - N gonor Amp DNA-[place] Negative 04/05/2016 Negative - N gonor Amp Src-[place] urine 04/05/2016 Sincerely, HOLLEY ARREOLA [id number] [place] [address] Electronic Signature Electronically Signed By: HOLLEY ARREOLA GLASS FRAME FITTER On: April 08, 2016 This document has images extracted. Source: [facility] [employer] Document Id: [id number] Electronically signed by [facility], [facility] Carousel Attendant [id number] at 01/09/2017 2:00 AM CDT Ramona - Dorian Davenport L.P.N. - 04/05/2016 4:44 PM CDT MnV[facility] Eligibility MnV[facility] Eligibility Entered On: 04/05/2016 16:44 CDT Performed On: 04/05/2016 16:44 CDT by DORIAN DAVENPORT LPN [facility] Eligibility Provided MnVFC eligibility information : No DORIAN DAVENPORT LPN - 04/05/2016 16:44 CDT Source: [facility] [employer] Document Id: [id number] CDT!3 Octaviacellaneous - Dorian Davenport L.P.N. - 04/05/2016 4:28 PM CDT Adult Marketing Data Specialist Intake/History Adult Marketing Data Specialist Intake/History Entered On: 04/05/2016 16:30 CDT Performed [...] Preferred Communication Mode : Verbal Languages : Israeli Is Patient Female and 13-50 no hysterectomy [...] DAVENPORT LPN - 04/05/2016 16:28 CDT Source: [facility] POWERCHART Document Id: [id number] CDT!44 documented in this encounter Plan of [...] athologist Signature HXN gonor Amp Negative POWERCHART DNA-[place] Specimen (Source) Anatomical Collection Method Collection Time Re ceived Time Location / / Volume Laterality 04/05/2016 5:14 PM CDT Narrative POWERCHART - 04/08/2016 3:51 PM CDT ADDITIONAL INFORMATION This report is intended for use in clini hernandez monitoring and management of patients. It is not in tended for use in medical-legal applications. Test Performed by: [facility] - [address] [address] Certified Professional Coder: Cisco Pantoja II, M.D., Ph.D. Holley Arreola APRN C.N.P. LAB HISTORICAL ORDERS Performing Organization Address City/State/ZIP Code Phon e Number POWERCHART HX-N gonor Amp Src (04/05/2016 5:14 PM CDT) P athologist Signature HXN gonor Amp urine POWERCHART Src-[place] Specimen (Source) Anatomical Collection Method Collection Time Re ceived Time Location / / Volume Laterality 04/05/2016 5:14 PM CDT Liselle M Lewis FANCY STITCHER, C.N.P. LAB HISTORICAL ORDERS Performing Organization Address City/State/ZIP Code Phon e Number POWERCHART HX-C trach Amp RNA (04/05/2016 5:14 PM CDT) [facility] Method Time Signature Chlamydia Negative POWERCHART [...] C.N.P. LAB HISTORICAL ORDERS Performing Organization Address City/[facility]/ZIP Code Phon e Number POWERCHART HX-C trach Amp Src (04/05/2016 5:14 PM CDT) athologist Signature HXC trach Amp urine POWERCHART Src-Correa Specimen (Source) Anatomical Collection Method Collection Time Re ceived Time Location / / Volume Laterality 04/05/2016 5:14 PM CDT Holley Arreola APRN, C.N.P. LAB HISTORICAL ORDERS Performing Organization Address City/[facility]/ZIP Code Phon e Number POWERCHART Pathology ThinPrep Screen HPV Reflex (04/05/2016 4:47 PM CDT) [facility] Method Time Signature Interpretation [id number] POWERCHART HXThPrep Scrn See Comment POWERCHART Fnl-Correa Comment: A. ??ThinPrep Pap Test Screen (Cervical/ Endocervical HPV Reflex): Satisfactory for evaluation. Negative for intraepithelial lesion or m alignancy. Fungal organisms morphologically consist ent with Veronica species HXThPrep Scrn Cyto-[place] See Comment KAYLA RCHART Comment: Report electronically signed by KAT Cifuentes(ASCP) 04/13/2016 08:18 Interpreted by: KAT Cifuentes(ASCP) HX Spec Desc-Correa See Comment POWERCHART Comment: A. ??ThinPrep Pap Test Screen (Cervical/ Endocervical HPV Reflex): Received clear specimen in ThinPrep vial . Test Performed by: [place] [address] Certified Professional Coder: Cisco Pantoja II, M.D., Ph.D. Specimen (Source) Anatomical Collection Method Collection Time Re ceived Time Location / / Volume Laterality Cervix/Endocervix 04/05/2016 4:47 PM CDT Holley Arreola APRN, C.N.P. LAB PAP PATHDX ORDERABL ES Performing Organization Address City/State/ZIP Code Phon e Number POWERCHART documented in this encounter Visit Diagnoses Not on filedocumented in this encounter
--- OUTSIDE RECORDS SUMMARY | 2022-07-06 10:27 | XMS_ITS | Encounter Summary ---
:1995 Author Organization [facility] Address [address] [place] [address] Care Team Providers Name Role Phone Unavailable Primary Care Provider Unavailable Encounter Details Date Type Department Care Team Description 09/30/2015 Hospital Encounter HX [facility] Hunter Ovalle M.D. [address] [place] [phone] (Wo rk) Social History Tobacco Use Types [...] How often do you attend episcopal or anabaptist Never 10/23/2020 services? Do you [...] at Date Recorded Female 08/12/2017 10:51 AM CRANE HOOKER documented as of this encounter Last Filed Vital Signs Vital Sign Reading Time Taken Comments Blood Pressure 117/67 09/30/2015 1:10 PM CRANE HOOKER Pulse 93 09/30/2015 1:10 PM CRANE HOOKER Temperature - - Respiratory Rate 16 09/30/2015 1:10 PM CRANE HOOKER Oxygen Saturation - - Inhaled Oxygen Concentration - - Weight 83.8 kg (184 lb 11.9 oz) 09/30/2015 1:10 PM CRANE HOOKER Height 164 cm (5' 4.57) 09/30/2015 1:10 PM CRANE HOOKER Body Mass Index 31.16 09/30/2015 1:10 PM CRANE HOOKER documented in this encounter Medications at Time [...] Allison M.D. - 09/30/2015 1:00 PM CST [id number] CHIEF COMPLAINT/REASON FOR VISIT Congestion and decreased [...] continuing her inhalers and also try an [id number] decongestant if beneficial. If no improvement or [...] ALLISON MD On: 09/30/2015 02:51 PM Source: [facility] MHSDOLBEYNONRADSYS Document Id: [id number] E HOOKER documented in this encounter Procedure Notes Chrissy Dia L.P.N. - 09/30/2015 1:09 PM CST Asthma Control Test (12 yrs and older) Asthma Control Test (12 yrs and older) Entered On: 09/30/2015 13:09 CRANE HOOKER Performed On: 09/30/2015 13:09 CRANE HOOKER by CHRISSY DIA LPN ACT Past 4 [...] EMR CHRISSY DIA LPN - 09/30/2015 13:09 CRANE HOOKER Source: [facility] Next Caller Document Id: [id number] CRANE HOOKER!12 E HOOKER documented in this encounter Miscellaneous Notes Miscellaneous - [place] Allison M.D. - 09/30/2015 1:38 PM CST Ambulatory Patient Summary [address] [id number] Visit Information Name: DHIRAJ LANDA [facility] Number: [id number] Current Date: 09/30/2015 13:38:49 Physicians Attending Provider: WASHINGTON ALLISON MD Primary Care Provider: HOLLEY ARREOLA RESAW OPERATOR DHIRAJ LANDA has been given the [...] a day x 10 day(s) New Routed [facility] [address] [address] fluticasone nasal (Flonase 0.05 mg/inh nasal spray) 2 [place](s), Nasal, two times a day fluticasone-salmeterol (Advair Diskus 250 mcg-50 mcg inhalation powder) 1 puff(s), Inhalation, two times a day medroxyPROGESTERone (Depo-Provera Contraceptive 150 mg/mL intramuscular suspension) 1 Milliliter, Intramuscular, every 90 days sertraline (Zoloft 100 mg oral tablet) 1 Tablet(s), Oral, once a day Take 0.5 tablet x 1 week and then 1 tablet daily Routed to [address] [address] traZODone (traZODone 50 mg oral tablet) 1 [...] form. Youll be asked for your [facility] number which you can find at the top of this document. Your Goals/Additional instructions: Source: [facility] POWERCHART Document Id: [id number] E HOOKER Miscellaneous - Washington Allison M.D. - 09/30/2015 1:38 PM CST Ambulatory Discharge Medication List [address] [id number] Visit Information Name: DHIRAJ LANDA [facility] Number: [id number] Visit Date: 09/30/2015 13:38:46 Attending Provider: WASHINGTON ALLISON MD Primary Care Provider: HOLLEY ARREOLA RESAW OPERATOR DHIRAJ LANDA has been given the [...] a day x 10 day(s) New Routed [address] [address] fluticasone nasal (Flonase 0.05 mg/inh nasal spray) 2 [place](s), Nasal, two times a day fluticasone-salmeterol (Advair Diskus 250 mcg-50 mcg inhalation powder) 1 puff(s), Inhalation, two times a day medroxyPROGESTERone (Depo-Provera Contraceptive 150 mg/mL intramuscular suspension) 1 Milliliter, Intramuscular, every 90 days sertraline (Zoloft 100 mg oral tablet) 1 Tablet(s), Oral, once a day Take 0.5 tablet x 1 week and then 1 tablet daily [facility] [address] traZODone (traZODone 50 mg oral tablet) 1 [...] MD Signed On:30-SEP-2015 13:38:40 Additional Information: Source: [facility] POWERCHART Document Id: [id number] E HOOKER Miscellaneous - Chrissy Dia, L.P.N. - 09/30/2015 1:10 PM CST Adult Dictionary Editor Intake/History Adult Dictionary Editor Intake/History Entered On: 09/30/2015 13:13 CRANE HOOKER Performed On: 09/30/2015 13:10 CRANE HOOKER by CHRISSY DIA LPN Intake Chief Complaint [...] kg/m2 CHRISSY DIA LPN - 09/30/2015 13:10 CRANE HOOKER General Info Languages : Welsh Is Patient Female and 13-50 no hysterectomy : Yes Status : Patient denies Are you ? : No CHRISSY DIA LPN - 09/30/2015 13:10 CRANE HOOKER Subjective Pain Symptoms : No CHRISSY DIA LPN - 09/30/2015 13:10 CRANE HOOKER Dependent Habits Exposure to Tobacco Smoke : Care provider denies smoking in home, Other: former smoker Smoking Status : Former smoker Tobacco 2A : Yes Tobacco Use/Currently Using : No Tobacco Use/Last 30 Days : No Tobacco Use/Last 12 months : No Alcohol Use : No CHRISSY DIA LPN - 09/30/2015 13:10 CRANE HOOKER Caffeine Use Grid Caffeine Use : Current Type : Soft drinks Frequency : Occasionally CHRISSY DIA LPN - 09/30/2015 13:10 CRANE HOOKER Recreational Drug Use Grid Drug Use : None CHRISSY DIA LPN - 09/30/2015 13:10 CRANE HOOKER Source: [employer] Document Id: [id number] CRANE HOOKER!41 E HOOKER Miscellaneous - Chrissy Dia L.P.NGonzalo - 09/30/2015 1:07 PM CST Health Assessment Health Assessment Entered On: 09/30/2015 13:08 CRANE HOOKER Performed On: 09/30/2015 13:07 CRANE HOOKER by CHRISSY DIA LPN Health Assessment Complete Health Assessment Complete or Modified : Annual Health Assessment Annual Health Assessment Completed : Yes CHRISSY DIA LPN - 09/30/2015 13:07 CRANE HOOKER Nutrition Nutrition Risk Factors by History Adult : None CHRISSY DIA LPN - 09/30/2015 13:07 CRANE HOOKER Functional Current Daily Living Assistance : None CHRISSY DIA LPN - 09/30/2015 13:07 CRANE HOOKER Dependent Habits Exposure to Tobacco Smoke : Care provider denies smoking in home, Other: former smoker Smoking Status : Former smoker Tobacco 2A : Yes Tobacco Use/Currently Using : No Tobacco Use/Last 30 Days : No Tobacco Use/Last 12 months : No CHRISSY DIA LPN - 09/30/2015 13:07 CRANE HOOKER Caffeine Use Grid Caffeine Use : Current Type : Soft drinks Frequency : Occasionally CHRISSY DIA LPN - 09/30/2015 13:07 CRANE HOOKER Alcohol Use : No CHRISSY DIA LPN - 09/30/2015 13:07 CRANE HOOKER Recreational Drug Use Grid Drug Use : None CHRISSY DIA LPN - 09/30/2015 13:07 CRANE HOOKER Psychosocial Domestic Abuse Concerns : None Behavioral Health Screen/Safety Assmt : No Tenriism Preference : CHRISSY Muñiz LPN - 09/30/2015 13:07 CRANE HOOKER Advance Directive Advanced Directives : No Advance Directive Additional Information : No CHRISSY DIA LPN - 09/30/2015 13:07 CRANE HOOKER Educ Needs Learning Style Preference Adult Grid Patient : Demonstration, Printed materials Family : None CHRISSY DIA LPN - 09/30/2015 13:07 CRANE HOOKER Source: [facility] POWERCHART Document Id: [id number] CRANE HOOKER!35 E HOOKER documented in this encounter Plan of Treatment Not on filedocumented as of this encounter Visit Diagnoses Not on filedocumented in this encounter
--- OUTSIDE RECORDS SUMMARY | 2022-07-06 10:27 | XMS_ITS | Encounter Summary ---
:1995 Author Organization [facility] Address [address] [place] [address] Care Team Providers Name Role Phone Unavailable Primary Care Provider Unavailable Encounter Details Date Type Department Care Team Description 12/11/2016 Hospital Encounter HX [facility] [place] Kerry López M.D. [address] [place], [place] [address] (Wo rk) Social History [...] How often do you attend restoration or amish Never 10/23/2020 services? 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 FU if no change or worsening symptoms prn. Ordered: OV Est Pt Level 3 - 22133 - 15 min Orders: penicillin V potassium, 500 mg = 1 tab(s), PO, 2xDay, x 10 day(s), # 20 tab(s), 0 Refill(s), Acute,Pharmacy: [facility] Electronically Signed By: CARLEE LÓPEZ MD On: 12/11/2016 10:48 AM Source: [facility] POWERCHART Document Id: [id number] documented in this encounter Miscellaneous Notes Miscellaneous - Carlee López M.D. - 12/11/2016 10:48 AM CDT Ambulatory Patient Summary [address] [place], [place] [id number] Visit Information Name: DHIRAJ LANDA [facility] Number: [id number] Current Date: 12/11/2016 10:48:48 Physicians Attending Provider: CARLEE LÓPEZ MD Primary Care Provider: AMANDA ARREOLA ENTERPRISE SYSTEMS ENGINEER DHIRAJ LANDA has been given the following [...] nasal (Flonase 0.05 mg/inh nasal spray) 2 [place](s), Nasal, two times a day fluticasone-salmeterol (Advair Diskus 250 mcg-50 mcg inhalation powder) 1 puff(s), Inhalation, two times a day levonorgestrel-ethinyl estradiol (Chateal 0.15 mg-30 mcg oral tablet) 1 Tablet(s), Oral, once a day penicillin V potassium (penicillin V potassium 500 mg oral tablet) 1 Tablet(s), Oral, two times a day x 10 day(s) New Routed to [address] [place] [address] traZODone (traZODone 50 mg oral tablet) 1 [...] if you dont have one. Go to [email or web address] and click on Create Your Account. Then, follow the directions to complete the online form. Youll be asked for your [facility] number which you can find at the top of this document. Your Goals/Additional instructions: Source: [facility] POWERCHART Document Id: [id number] Miscellaneous - Carlee López M.D. - 12/11/2016 10:48 AM CDT Ambulatory Discharge Medication List [address] [id number] Visit Information Name: SYEDADHIRAJ PAWEL [facility] Number: [id number] Current Date: 12/11/2016 10:48:47 Attending Provider: CARLEE LÓPEZ MD Primary Care Provider: AMANDA ARREOLA ENTERPRISE SYSTEMS ENGINEER SYEDADHIRAJ PAWEL has been given the following [...] nasal (Flonase 0.05 mg/inh nasal spray) 2 [place](s), Nasal, two times a day fluticasone-salmeterol (Advair Diskus 250 mcg-50 mcg inhalation powder) 1 puff(s), Inhalation, two times a day levonorgestrel-ethinyl estradiol (Chateal 0.15 mg-30 mcg oral tablet) 1 Tablet(s), Oral, once a day penicillin V potassium (penicillin V potassium 500 mg oral tablet) 1 Tablet(s), Oral, two times a day x 10 day(s) New Routed to [address] [address] traZODone (traZODone 50 mg oral [...] MD Signed On:11-DEC-2016 10:48:45 Additional Information: Source: [facility] POWERCHART Document Id: [id number] Miscellaneous - Carlee López M.D. - 12/11/2016 10:44 AM CDT Work Excuse December 11, 2016 DHIRAJ LANDA [address] [place] [address] Dear DHIRAJ LANDA, You were examined in [...] date: 12-13-2016 Notes: _ Sincerely, CARLEE LÓPEZ [address] [place] [address] Electronic Signature Electronically Signed By: CARLEE LÓPEZ MD On: December 11, 2016 This document has images extracted. Source: [facility] UltromexCHART Document Id: [id number] Electronically signed by Stuart [facility] Heel Boom Operator [id number] at 01/25/2017 12:41 PM CDT Miscellaneous - Janet Ramon, L.P.N. 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 : No JANET RAMON [facility] - 12/11/2016 10:05 CDT Subjective Pain Symptoms : Yes JANET RAMON [facility] - 12/11/2016 10:05 CDT Pain Scale Pain Scale Verbal 0-10 : Open JANET RAMON [facility] - 12/11/2016 10:05 CDT Pain Pain Assessment Grid Pain 1 Location : Throat MARJ RAMONSAMANTHA Emerson [facility] - 12/11/2016 10:05 CDT Dependent Habits Exposure to Tobacco Smoke : Care provider denies smoking in home, Other: former smoker Smoking Status : Former smoker Tobacco 2A : Yes Tobacco Use/Currently Using : No Tobacco Use/Last 30 Days : No Tobacco Use/Last 12 months : No Tobacco Last Use/Month : July Tobacco Last Use/Year : 2015 JACK RAMONWero Emerson [facility] - 12/11/2016 10:05 CDT Caffeine Use Grid Caffeine Use : Current Type : Soft drinks Frequency : Occasionally JANET RAMON [facility] - 12/11/2016 10:05 CDT Recreational Drug Use Grid Drug Use : None RADHAPOOJA JANET D [facility] - 12/11/2016 10:05 CDT Source: [facility] Compare And Share Document Id: [id number] CDT!46 documented in this encounter Plan of Treatment Not on filedocumented as of this encounter Procedures Procedure Name Priority Date/Time Associated Diagnosis Comme nts RAPID STREP A Routine 12/11/2016 10:11 AM Results for this SCREEN CDT procedure are i n the results section. documented in this encounter Results (ABNORMAL) Rapid Strep A Screen (12/11/2016 10:11 AM CDT) [facility] Method Time Signature HXStrep A (POSITIVE) [...]
--- OUTSIDE RECORDS SUMMARY | 2022-07-06 10:27 | XMS_ITS | Encounter Summary ---
:1995 Author Organization [facility] Address [address] [place] [address] Care Team Providers Name Role Phone Unavailable Primary Care Provider Unavailable Encounter Details Date Type Department Care Team Description 10/20/2015 Hospital Encounter HX [facility] Kimberley Brown M.D. [address], [place] [address] (Wo rk) Social History [...] How often do you attend alevism or jainism Never 10/23/2020 services? Do you [...] at Date Recorded Female 08/12/2017 10:51 AM BIT GRINDER documented as of this encounter Last Filed Vital Signs Vital Sign Reading Time Taken Comments Blood Pressure 115/71 10/20/2015 10:34 AM BIT GRINDER Pulse 98 10/20/2015 10:34 AM BIT GRINDER Temperature - - Respiratory Rate 18 10/20/2015 10:34 AM BIT GRINDER Oxygen Saturation - - Inhaled Oxygen Concentration - - Weight - - Height 164 cm (5' 4.57) 10/20/2015 10:34 AM BIT GRINDER Body Mass Index - - documented in [...] Polanco M.D. - 10/20/2015 10:21 AM CST [id number] CHIEF COMPLAINT/REASON FOR VISIT Dyspnea. 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 PAST MEDICAL/SURGICAL HISTORY Moderate persistent asthma. [...] POLANCO MD On: 10/22/2015 04:54 PM Source: [facility] MHSDOLBEYNONRADSYS Document Id: [id number] GRINDER documented in this encounter Procedure Notes Jeanette Dennison, L.P.N. - 10/20/2015 11:17 AM CST Peak Flow POC Peak Flow POC Entered On: 10/20/2015 11:17 BIT GRINDER Performed On: 10/20/2015 11:17 BIT GRINDER by JEANETTE DENNISON Peak Flow POC Peak Flow Post-treatment POC #1 : 380 L/sec Treatment Delivery Device : Nebulizer JEANETTE DENNISON - 10/20/2015 11:32 BIT GRINDER Peak Flow POC Initial : 350 L/sec Peak Flow POC #2 : 400 L/sec Peak Flow POC #3 : 360 L/sec Patient Effort Peak Flow POC : Fair JEANETTE DENNISON - 10/20/2015 11:17 BIT GRINDER Source: [facility] POWERCHART Document Id: [id number] BIT GRINDER!8 GRINDER documented in this encounter Miscellaneous Notes Miscellaneous - Radha Polanco M.D. - 10/20/2015 11:34 AM CST Work Excuse October 20, 2015 CARLY LANDA [id number] [facility] [address] Dear CARLY LANDA, You were examined in [...] 2015 Notes: _ Sincerely, RADHA POLANCO [address] [place] [address] Electronic Signature Electronically Signed By: RADHA POLANCO MD On: October 20, 2015 This document has images extracted. Source: [facility] POWERCHART Document Id: [id number] Miscellaneous - Jennifer Medellin LGonzaloPGonzaloNGonzalo - 10/20/2015 10:34 AM CST Adult Packaging Technician Intake/History Adult Packaging Technician Intake/History Entered On: 10/20/2015 10:40 BIT GRINDER Performed On: 10/20/2015 10:34 BIT GRINDER by JENNIFER MEDELLIN LPN Intake Chief Complaint [...] Other: JENNIFER Melara LPN - 10/20/2015 10:34 BIT GRINDER General Info Information Given By : Patient Languages : Czech Is Patient Female and 13-50 no hysterectomy : Yes Status : Patient denies Are you ? : No JENNIFER MEDELLIN LPN - 10/20/2015 10:34 BIT GRINDER Subjective Pain Symptoms : No JENNIFER MEDELLIN LPN - 10/20/2015 10:34 BIT GRINDER Dependent Habits Exposure to Tobacco Smoke : Care provider denies smoking in home, Other: former smoker Smoking Status : Former smoker Tobacco 2A : Yes Tobacco Use/Currently Using : No Tobacco Use/Last 30 Days : No Tobacco Use/Last 12 months : No JENNIFER MEDELLIN MANAGER BUILDING - 10/20/2015 10:34 BIT GRINDER Caffeine Use Grid Caffeine Use : Current Type : Soft drinks Frequency : Occasionally JENNIFER MEDELLIN LPN - 10/20/2015 10:34 BIT GRINDER Recreational Drug Use Grid Drug Use : None JENNIFER MEDELLIN MANAGER BUILDING - 10/20/2015 10:34 BIT GRINDER Source: [facility] POWERCHART Document Id: [id number] BIT GRINDER!40 GRINDER documented in this encounter Plan of Treatment Not on filedocumented as of this encounter Visit Diagnoses Not on filedocumented in this encounter
--- OUTSIDE RECORDS SUMMARY | 2022-07-06 10:27 | XMS_ITS | Encounter Summary ---
:1995 Author Organization [facility] Address [address] [place] [address] Care Team Providers Name Role Phone Unavailable Primary Care Provider Unavailable Encounter Details Date Type Department Care Team Description 03/19/2016 Hospital Encounter HX [facility] [place] Francisca Arreola, FINISH ROLLS OPERATOR, C.N.P. [address] [place], [place] [address] (Wo rk) Social History [...] How often do you attend anabaptism or druze Never 10/23/2020 services? 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 She reports her new job is going [...] # 30 cap(s), 1 Refill(s), Maintenance, Pharmacy: [facility] Electronically Signed By: HOLLEY ARREOLA SAW MAKER On: 03/21/2016 08:29 PM Source: [facility] POWERCHART Document Id: [id number] documented in this encounter Miscellaneous Notes Miscellaneous - Carlee Dash, L.P.N. - 03/19/2016 3:34 PM CDT Adult Painter Drum Intake/History Adult Painter Drum Intake/History Entered On: 03/19/2016 15:36 CDT Performed On: 03/19/2016 15:34 CDT by CARLEE DASH SUPERVISOR TURKEY [employer]ARM, RT Intake Chief Complaint : F/u medications. [...] 5 ft 5 inch(es), 65 inch(es)) SETH CALREE Baker LPN, RT - 03/19/2016 15:34 CDT General Info Languages : Malian Is Patient Female and 13-50 no hysterectomy [...] LPN, RT - 03/19/2016 15:34 CDT [facility] Document Id: [id number] CDT!34 documented in this encounter Plan of Treatment Not on filedocumented as of this encounter Visit Diagnoses Not on filedocumented in this encounter
--- OUTSIDE RECORDS SUMMARY | 2022-07-06 10:27 | XMS_ITS | Encounter Summary ---
:1995 Author Organization [facility] Address [address] [place] [address] Care Team Providers Name Role Phone Unavailable Primary Care Provider Unavailable Encounter Details Date Type Department Care Team Description 08/23/2016 Hospital Encounter HX [facility] Francisca Arreola, GRANITE POLISHER, C.N.P. [address] [place], [place] [address] (Wo rk) Social History [...] often do you attend oriental orthodox or jewish Never 10/23/2020 services? 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 [facility] related to [...] Ordered: OV Est Pt Level 3 - 42975 - 15 min Pain Ear L See #1. Ordered: OV Est Pt Level 3 - 09336 - 15 min Sore Throat (ST) NOS See #1. All questions were answered. She left in no acute distress. Ordered: OV Est Pt Level 3 - 95646 - 15 min Electronically Signed By: HOLLEY ARREOLA COURT OPERATIONS CLERK On: 08/23/2016 10:33 AM Source: [facility] POWERCHART Document Id: [id number] AND SPICE SUPERVISOR documented in this encounter Miscellaneous Notes Telephone Encounter - Conversion, Historical Provider Ser - 08/30/2016 10:05 AM CST *Phone Message Document Contains Addenda Addendum by TATI VOGT LPN on August 30, 2016 15:18:12 TEA AND SPICE SUPERVISOR Patient aware of the below information. Addendum by HOLLEY ARREOLA COURT OPERATIONS CLERK on August 30, 2016 14:54:25 TEA AND SPICE SUPERVISOR From: HOLLEY ARREOLA COURT OPERATIONS CLERK To: [facility] Medicine Nurse Sagastume; Sent: 08/30/2016 14:54:25 TEA AND SPICE SUPERVISOR Subject: RE: *Phone Message I refilled script of Augmentin for twice daily for 3 more days. Thanks! Addendum by TATI VOGT LPN on August 30, 2016 13:27:40 TEA AND SPICE SUPERVISOR From: TATI VOGT LPN ([facility] Medicine Nurse Sagastume) To: HOLLEY ARREOLA NP; Sent: 08/30/2016 13:27:40 TEA AND SPICE SUPERVISOR Subject: FW: *Phone Message Addendum by TATI VOGT LPN on August 30, 2016 13:27:30 TEA AND SPICE SUPERVISOR Forwarded to Holley. From: TRENT BRICENO ([place] [facility] Behavioral Health Technician) To: [facility] Medicine Nurse Sagastume; Sent: 08/30/2016 10:05:18 TEA AND SPICE SUPERVISOR Subject: *Phone Message Caller is: ( x [...] back cell phone number ( ) Source: [facility] [employer] Document Id: [id number] Miscellaneous - Vinnie Lyman L.P.N. - 08/23/2016 9:51 AM CST Adult Tar Heat Exchanger Cleaner Intake/History Adult Tar Heat Exchanger Cleaner Intake/History Entered On: 08/23/2016 9:55 TEA AND SPICE SUPERVISOR Performed On: 08/23/2016 9:51 TEA AND SPICE SUPERVISOR by VINNIE LYMAN LPN Intake Chief Complaint [...] inch(es)) VINNIE LYMAN LPN - 08/23/2016 9:51 TEA AND SPICE SUPERVISOR General Info Languages : Serbian Is Patient Female and 13-50 no hysterectomy : Yes Status : Patient denies Are you ? : No VINNIE LYMAN LPN - 08/23/2016 9:51 TEA AND SPICE SUPERVISOR Subjective Pain Symptoms : Yes VINNIE LYMAN LPN - 08/23/2016 9:51 TEA AND SPICE SUPERVISOR Pain Scale Pain Scale Verbal 0-10 : Open VINNIE LYMAN LPN - 08/23/2016 9:51 TEA AND SPICE SUPERVISOR Pain Pain Assessment Grid Pain 1 Pain 2 Location : Head Throat Laterality : Bilateral Bilateral Intensity : 6 6 VINNIE LYMAN LPN - 08/23/2016 9:51 TEA AND SPICE SUPERVISOR VINNIE LYMAN LPN - 08/23/2016 9:51 TEA AND SPICE SUPERVISOR Dependent Habits Exposure to Tobacco Smoke : Care provider denies smoking in home, Other: former smoker Smoking Status : Former smoker Tobacco 2A : Yes Tobacco Use/Currently Using : No Tobacco Use/Last 30 Days : No Tobacco Use/Last 12 months : No VINNIE LYMAN LPN - 08/23/2016 9:51 TEA AND SPICE SUPERVISOR Caffeine Use Grid Caffeine Use : Current Type : Soft drinks Frequency : Occasionally VINNIE LYMAN LPN - 08/23/2016 9:51 TEA AND SPICE SUPERVISOR Recreational Drug Use Grid Drug Use : None VINNIE LYMAN LPN 08/23/2016 9:51 TEA AND SPICE SUPERVISOR Source: [facility] POWERCHART Document Id: [id number] TEA AND SPICE SUPERVISOR!50 AND SPICE SUPERVISOR documented in this encounter Plan of Treatment Not on filedocumented as of this encounter Visit Diagnoses Not on filedocumented in this encounter
--- OUTSIDE RECORDS SUMMARY | 2022-07-06 10:27 | XMS_ITS | Encounter Summary ---
:1995 Author Organization [facility] Address [address] [place] [address] Care Team Providers Name Role Phone Unavailable Primary Care Provider Unavailable Encounter Details Date Type Department Care Team Description 10/20/2016 Hospital Encounter HX [facility] Ramos Matos, TOBI, C.N.P., D. N.P. [address] [place] [address] (Wo rk) Social History Tobacco [...] How often do you attend faith or alevism Never 10/23/2020 services? 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 She has not tried anything [id number] for symptoms. No fever or chills. No [...] DRUG & GIFT Orders: Chlamydia Gonorrhoeae Amplified RNA-[place] CGRNA OV Est Pt Level 3 - 68183 - 15 min Patient was instructed to [...] C.N.PGonzalo, Ki.N.P On: 10/21/2016 07:54 AM Source: [email or web address] Document Id: [id number] TION MANAGER documented in this encounter Miscellaneous Notes Miscellaneous - Chandni Matos APRN, Mitchell.N.PGonzalo, D.N.P. - 10/23/2016 7:38 AM AVIATION MANAGER Results Notification Document Contains Addenda Addendum by TONIA HARRIS LPN on October 25, 2016 15:44:26 CDT pt notified. Addendum by TONIA HARRIS LPN on October 23, 2016 08:20:56 AVIATION MANAGER left message for pt to call back clinic From: CHANDNI MATOS APRN C.N.PGonzalo, D.N.P To: [place] Family Medicine Nurse Mark; Sent: 10/23/2016 07:38:22 AVIATION MANAGER Show up: 10/23/2016 07:38:00 AVIATION MANAGER Subject: Results Notification Please notify patient and let her know that her chlamydia and gonorrhea is NEGATIVE. Results: Date Result Name Value Ref Range 10/20/2016 15:15 C trach Amp Src-[place] cervical 10/20/2016 15:15 C trach Amp RNA-[place] Negative (Negative - ) 10/20/2016 15:15 N gonor Amp DNA-[place] Negative (Negative - ) 10/20/2016 15:15 N gonor Amp Src-[place] cervical Source: [facility] POWERCHART Document Id: [id number] Electronically signed by Conversion, [facility] Sap Bw Developer [id number] at 01/25/2017 5:58 AM CDT Miscellaneous - Chandni Matos APRN, C.N.PGonzalo, D.N.P. - 10/20/2016 5:05 PM AVIATION MANAGER Results Notification Document Contains Addenda Addendum by TONIA HARRIS LPN on October 20, 2016 18:37:27 AVIATION MANAGER pt notified of rresults. From: CHANDNI MATOS APRN, C.N.PGonzalo, D.N.P To: [facility] Family Medicine Nurse Mark; Sent: 10/20/2016 17:05:37 AVIATION MANAGER Show up: 10/20/2016 17:03:00 AVIATION MANAGER Subject: Results Notification Please notify patient that [...] Name MBO POS Vaginosis Panel, DNA Source: [facility] [employer] s.[employer].l.CHART Document Id: [id number] Electronically signed by Conversion, [facility] Sap Bw Developer [id number] at 01/25/2017 5:58 AM CDT Miscellaneous - Chandni Matos APRN C.N.PGonzalo, D.N.P. - 10/20/2016 3:24 PM AVIATION MANAGER Ambulatory Patient Summary [address] [id number] Visit Information Name: DHIRAJ LANDA [facility] Number: [id number] Current Date: 10/20/2016 15:24:11 Physicians Attending Provider: CHANDNI MATOS APRN C.N.P., D.N.P Primary Care Provider: AMANDA ARREOLA CUSTOMER RELATIONS REPRESENTATIVE DHIRAJ LANDA PAWEL has been given the [...] nasal (Flonase 0.05 mg/inh nasal spray) 2 [place](s), Nasal, two times a day fluticasone-salmeterol (Advair [...] if you dont have one. Go to [email or web address] and click on Create Your Account. Then, follow the directions to complete the online form. Youll be asked for your [facility] number which you can find at the top of this document. Your Goals/Additional instructions: Source: [facility] POWERCHART Document Id: [id number] TION MANAGER Miscellaneous - Chandni Matos APRN, C.N.P., D.N.P. - 10/20/2016 3:24 PM AVIATION MANAGER Ambulatory Discharge Medication List [address] [id number] Visit Information Name: DHIRAJ LANDA [facility] Number: [id number] Current Date: 10/20/2016 15:24:07 Attending Provider: CHANDNI MATOS APRN C.N.P., D.N.P Primary Care Provider: AMANDA ARREOLA CUSTOMER RELATIONS REPRESENTATIVE DHIRAJ LANDA has been given the following [...] nasal (Flonase 0.05 mg/inh nasal spray) 2 [place](s), Nasal, two times a day fluticasone-salmeterol (Advair [...] D.N.P Signed On:20-OCT-2016 15:24:03 Additional Information: Source: [facility] POWERCHART Document Id: [id number] TION MANAGER Miscellaneous - Vinnie Lyman L.P.N. - 10/20/2016 2:57 PM CST Adult Quebracho Tanner Intake/History Adult Quebracho Tanner Intake/History Entered On: 10/20/2016 15:01 AVIATION MANAGER Performed On: 10/20/2016 14:57 AVIATION MANAGER by VINNIE LYMAN LPN Intake Chief Complaint [...] inch(es)) VINNIE LYMAN LPN - 10/20/2016 14:57 AVIATION MANAGER General Info Languages : Citizen Of [place] Is Patient Female and 13-50 no hysterectomy : Yes Status : Patient denies Are you ? : No VINNIE LYMAN LPN - 10/20/2016 14:57 AVIATION MANAGER Subjective Pain Symptoms : No VINNIE LYMAN LPN - 10/20/2016 14:57 AVIATION MANAGER Dependent Habits Exposure to Tobacco Smoke : Care provider denies smoking in home, Other: former smoker Smoking Status : Former smoker Tobacco 2A : Yes Tobacco Use/Currently Using : No Tobacco Use/Last 30 Days : No Tobacco Use/Last 12 months : No VINNIE LYMAN LPN - 10/20/2016 14:57 AVIATION MANAGER Caffeine Use Grid Caffeine Use : Current Type : Soft drinks Frequency : Occasionally VINNIE LYMAN LPN - 10/20/2016 14:57 AVIATION MANAGER Recreational Drug Use Grid Drug Use : None VINNIE LYMAN LPN - 10/20/2016 14:57 AVIATION MANAGER Source: [facility] [employer] Document Id: [id number] AVIATION MANAGER!38 TION MANAGER documented in this encounter Plan of Treatment Not on filedocumented as of this encounter Procedures Procedure Name Priority Date/Time Associated Diagnosis Comme nts VAGINITIS BATTERY, Routine 10/20/2016 3:28 PM Res ults for this DNA (GENITAL) AVIATION MANAGER procedure are in the results section. N GONOR AMP SRC Routine 10/20/2016 3:15 PM Result s for this AVIATION MANAGER procedure are i n the results section. N GONOR AMP DNA Routine 10/20/2016 3:15 PM Result s for this AVIATION MANAGER procedure are i n the results section. C TRACH AMP SRC Routine 10/20/2016 3:15 PM Result s for this AVIATION MANAGER procedure are i n the results section. C TRACH AMP RNA Routine 10/20/2016 3:15 PM Result s for this AVIATION MANAGER procedure are i n the results section. documented in this encounter Results (ABNORMAL) VAGINITIS BATTERY, DNA (GENITAL) (10/20/2016 3:28 PM AVIATION MANAGER) Component Value Ref Test Analysis Performed At [facility] gist Range Method Time Signature HXVaginitis (POSITIVE) POWERCHART Battery, DNA (Genital) HXFinal Trichomonas POWERCHART vaginalis DNA negative HXFinal Gardnerella POWERCHART vaginalis DNA positive HXFinal Veronica species POWERCHART DNA positive HXFinal Reference: POWERCHART Negative Specimen (Source) Anatomical Collection Method Collection Time Re ceived Time Location / / Volume Laterality Vagina 10/20/2016 3:28 PM AVIATION MANAGER Chandni Matos APRN, C.N.P., D.N.P. LAB HISTORICAL OR DERS Performing Organization Address City/[facility] Code Phon e Number POWERCHART HX-N gonor Amp DNA (10/20/2016 3:15 PM AVIATION MANAGER) athologist Signature HXN gonor Amp Negative POWERCHART DNA-[place] Specimen (Source) Anatomical Collection Method Collection Time Re ceived Time Location / / Volume Laterality 10/20/2016 3:15 PM AVIATION MANAGER Narrative POWERCHART - 10/22/2016 2:47 PM AVIATION MANAGER ADDITIONAL INFORMATION This report is intended for use in clini hernandez monitoring and management of patients. It is not in tended for use in medical-legal applications. Test Performed by: [facility] - [address] [address] Chandni Matos APRN C.N.P., D.N.P. LAB HISTORICAL OR DERS Performing Organization Address City/[facility] Code Phon e Number POWERCHART HX-N gonor Amp Src (10/20/2016 3:15 PM AVIATION MANAGER) athologist Signature HXN gonor Amp cervical POWERCHART Src-[place] Specimen (Source) Anatomical Collection Method Collection Time Re ceived Time Location / / Volume Laterality 10/20/2016 3:15 PM AVIATION MANAGER Chandni Matos APRN, C.N.P., D.N.P. LAB HISTORICAL OR DERS Performing Organization Address City/[facility]/ZIP Code Phon e Number POWERCHART HX-C trach Amp RNA (10/20/2016 3:15 PM AVIATION MANAGER) [facility] gist Method Time Signature Chlamydia Negative POWERCHART trachomatis amplified RNA Specimen (Source) Anatomical Collection Method Collection Time Re ceived Time Location / / Volume Laterality 10/20/2016 3:15 PM AVIATION MANAGER Narrative POWERCHART - 10/22/2016 2:47 PM AVIATION MANAGER ADDITIONAL INFORMATION This report is intended for use in clini hernandez monitoring and management of patients. It is not in tended for use in medical-legal applications. Chandni Matos APRN, C.N.P., D.N.P. LAB HISTORICAL OR DERS Performing Organization Address City/State/ZIP Code Phon e Number POWERCHART HX-C trach Amp Src (10/20/2016 3:15 PM AVIATION MANAGER) P athologist Signature HXC trach Amp cervical POWERCHART Src-[place] Specimen (Source) Anatomical Collection Method Collection Time Re ceived Time Location / / Volume Laterality 10/20/2016 3:15 PM AVIATION MANAGER Chandni Matos APRN C.N.P., D.N.P. LAB HISTORICAL OR DERS Performing Organization Address City/State/ZIP Code Phon e Number POWERCHART documented in this encounter Visit Diagnoses Not on filedocumented in this encounter
--- OUTSIDE RECORDS SUMMARY | 2022-07-06 10:28 | XMS_ITS | Encounter Summary ---
:1995 Author Organization [facility] Address [address] [place] [address] Care Team Providers Name Role Phone Unavailable Primary Care Provider Unavailable Encounter Details Date Type Department Care Team Description 11/04/2014 Hospital Encounter HX [facility] Karlie Mark M.D. [address] [place], [place] [address] (Wo rk) Social History [...] How often do you attend mosque or pentecostalism Never 10/23/2020 services? 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 - 11/04/2014 3:20 PM CDT [id number] The patient works in our [employer] department. She said that she has been [...] OLMEDO MD On: 11/07/2014 08:59 AM Source: [facility] MHSDOLBEYNONRADSYS Document Id: [id number] documented in this encounter Miscellaneous Notes Miscellaneous - Mellisa Mac R.N. - 11/06/2014 9:40 AM CDT Normal Results Letter 06 November 2014 DHIRAJ LANDA [id number] [address] [facility] [id number] Dear DHIRAJ LANDA, I am pleased to [...] 2.21 11/04/2014 2.04 12/28/2013 0.90 - 2.90 Ballard Absolute (x10(9)/L) 0.39 11/04/2014 0.78 12/28/2013 0.30 - 0.90 Eos Absolute (x10(9)/L) 0.10 11/04/2014 0.13 12/28/2013 0.05 - 0.50 Baso Absolute (x10(9)/L) 0.02 11/04/2014 0.03 12/28/2013 0.00 - 0.30 Differential? Auto 11/04/2014 Sincerely, LAUREN CASILLAS Electronic Signature Electronically Signed By: LAUREN CASILLAS RN On: 06 November 2014 This document has images extracted. Source: [facility] POWERCHART Document Id: [id number] Electronically signed by Conversion, [facility] Manufacturing Laborer [id number] at 01/10/2017 11:35 AM CDT Miscellaneous - Teresa Parkinson, L.P.N. - 11/04/2014 3:39 PM CDT Adult Lead Housekeeper Intake/History Adult Lead Housekeeper Intake/History Entered On: 11/04/2014 15:42 CDT Performed [...] Mass Index : 35.1 kg/m2 [facility] - 11/04/2014 15:39 CDT General Info Languages : Japanese Is Patient Female and 13-50 no hysterectomy : Yes Status : Patient denies Are you ? : No [facility] - 11/04/2014 15:39 CDT Subjective Pain Symptoms : No [facility] - 11/04/2014 15:39 CDT Dependent Habits Tobacco Use/Currently Using : Yes Exposure to Tobacco Smoke : Care provider denies smoking in home, Other: former smoker Smoking Status : Light tobacco smoker [facility] - 11/04/2014 15:39 CDT Tobacco Use Grid Last Use : never [facility] - 11/04/2014 15:39 CDT Alcohol Use : No [facility] 11/04/2014 15:39 CDT Caffeine Use Grid Caffeine Use : Current Type : Soft drinks Frequency : Occasionally [facility] - 11/04/2014 15:39 CDT Recreational Drug Use Grid Drug Use : None [facility] 11/04/2014 15:39 CDT ID Screen Drug Resistant Organism : No Travel Within Last 21 Days : No Contact with someone with Ebola : No [facility] - 11/04/2014 15:39 CDT [facility]: [facility] Document Id: [id number] CDT!48 documented in this encounter Plan of [...] M.D. LAB BLOOD ADD-ON Performing Organization Address [facility] Phon e Number POWERCHART CBC with Differential (11/04/2014 4:48 PM CDT) athologist Signature Leukocytes 6.3 3.4 - 10.5 POWERCHART X109L Erythrocytes 4.68 3.90 - POWERCHART 5.03 U8390H Hemoglobin 13.0 12.0 - POWERCHART 15.5 GDL [...] M.D. LAB BLOOD ADD-ON Performing Organization Address City/[facility] Phon e Number POWERCHART (ABNORMAL) CMP (Comprehensive Metabolic Panel) (11/04/2014 4:48 PM CDT) [facility] Method Time Signature Anion Gap [...] POWERCHART GDL HXeGFR (MDRD) >60 >=60 POWERCHART [id number] 2 eGFR Black/ >60 >=60 POWERCHART Armenian [id number] 2 Specimen (Source) Anatomical Collection Method Collection [...]
--- OUTSIDE RECORDS SUMMARY | 2022-07-06 10:28 | XMS_ITS | Encounter Summary ---
:1995 Author Organization [facility] Address [address] [place] [address] Care Team Providers Name Role Phone Unavailable Primary Care Provider Unavailable Encounter Details Date Type Department Care Team Description 02/08/2014 Hospital Encounter HX [facility] Law Lua, Ramos THOMASN, C.N.P. [address] [place] [phone] (Wo rk) Social History Tobacco [...] How often do you attend orthodoxy or advent Never 10/23/2020 services? 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 Electronically Signed By: LAW SINGER SUPERVISOR ACCOUNTING CLERKS On: 02/08/2014 11:07 AM Source: [employer] Document Id: [id number] documented in this encounter Procedure Notes Nena Ocampo L.PGonzaloN. - 02/08/2014 11:09 AM CDT Depo-Provera Administration Depo-Provera Administration Entered On: 02/08/2014 11:09 CDT Performed On: 02/08/2014 11:09 CDT by NENA OCAMPO LPN Depo-Provera Administration Annual Exam in the Past 12 Months : Yes Last Depo-Provera Given : 02/08/2014 CDT Return appointment : 05/10/2014 CDT NENA OCAMPO LPN - 02/08/2014 11:09 CDT Source: [facility] [employer] Document Id: [id number] CDT!5 documented in this encounter Miscellaneous Notes [...] back cell phone number ( ) Source: [facility] POWERCHART Document Id: [id number] Electronically signed by Stuart [facility] Table Cover Folder [id number] at 01/11/2017 12:41 AM CDT Miscellaneous - Law Singer, R.N. - 02/08/2014 10:49 AM CDT Ambulatory Patient Summary [facility] [address], [address] [place], [place] [phone] Visit Information Name: GORDOSTEPHDHIRAJ WRIGHT PAWEL [facility] Number: [id number] Current Date: 02/08/2014 10:49:45 Physicians Attending Provider: LAW SINGER SUPERVISOR ACCOUNTING CLERKS Primary Care Provider: PCP, UNASSIGNED - DHIRAJ [...] nasal (Flonase 0.05 mg/inh nasal spray) 2 [place](s), Nasal, two times a day fluticasone-salmeterol (Advair [...] of emergency. Electronically Signed By: LAW SINGER SUPERVISOR ACCOUNTING CLERKS Signed On:08-FEB-2014 10:49:35 Your Allergies & Intolerances [...] appointment detail needed. Your Goals/Additional instructions: Source: [facility] POWERCHART Document Id: [id number] Miscellaneous - Law Singer, R.N. - 02/08/2014 10:49 AM CDT Ambulatory Discharge Medication List [facility] [address], [address] [place], [place] [phone] Visit Information Name: DHIRAJ LANDA [facility] Number: [id number] Visit Date: 02/08/2014 10:49:43 Attending Provider: LAW SINGER SUPERVISOR ACCOUNTING CLERKS Primary Care Provider: PCP, UNASSIGNED - RW [...] nasal (Flonase 0.05 mg/inh nasal spray) 2 [place](s), Nasal, two times a day fluticasone-salmeterol (Advair [...] of emergency. Electronically Signed By: LAW SINGER SUPERVISOR ACCOUNTING CLERKS Signed On:08-FEB-2014 10:49:35 Additional Information: Source: [facility] POWERCHART Document Id: [id number] Miscellaneous - Nena Ocampo L.P.N. - 02/08/2014 10:24 AM CDT Adult Golf Course Assistant Intake/History Adult Golf Course Assistant Intake/History Entered On: 02/08/2014 10:26 CDT Performed [...] Information Given By : Patient Languages : Hungarian NENA OCAMPO CIVIL LAWYER - 02/08/2014 10:24 CDT Subjective Pain Symptoms [...] OCAMPO LPN - 02/08/2014 10:24 CDT Source: [employer] Document Id: [id number] CDT!38 documented in this encounter Plan of Treatment Not on filedocumented as of this encounter Visit Diagnoses Not on filedocumented in this encounter
--- OUTSIDE RECORDS SUMMARY | 2022-07-06 10:28 | XMS_ITS | Encounter Summary ---
:1995 Author Organization [facility] Address [address] [place] [address] Care Team Providers Name Role Phone Unavailable Primary Care Provider Unavailable Encounter Details Date Type Department Care Team Description 07/31/2014 Hospital Encounter [facility] Maureen Lua, Ramos THOMASN, C.N.P. [address] [place] [address] [phone] (Wo rk) Social History Tobacco [...] How often do you attend anabaptism or presybeterian Never 10/23/2020 services? 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 documented as of this encounter Last Filed Vital Signs Vital Sign Reading Time Taken Comments Blood Pressure - - Pulse - - Temperature - - Respiratory Rate - - Oxygen Saturation - - Inhaled Oxygen Concentration - - Weight - - Height 164 cm (5' 4.57) 07/31/2014 4:09 PM VENDING MACHINE HOST/HOSTESS Body Mass Index - - documented in [...] Administration Depo-Provera Administration Entered On: 07/31/2014 16:16 VENDING MACHINE HOST/HOSTESS Performed On: 07/31/2014 16:15 VENDING MACHINE HOST/HOSTESS by NENA OCAMPO LPN Depo-Provera Administration Return appointment : 10/30/2014 CDT Depo-Provera Administration Comments : Lot: [id number] Expires: 01/2017 NENA OCAMPO LPN - 07/31/2014 16:15 VENDING MACHINE HOST/HOSTESS Source: [facility] POWERCHART Document Id: [id number] VENDING MACHINE HOST/HOSTESS!4 ING MACHINE HOST/HOSTESS documented in this encounter Plan of Treatment Not on filedocumented as of this encounter Visit Diagnoses Not on filedocumented in this encounter
--- OUTSIDE RECORDS SUMMARY | 2022-07-06 10:28 | XMS_ITS | Encounter Summary ---
:1995 Author Organization [facility] Address [address] [place] [address] Care Team Providers Name Role Phone Unavailable Primary Care Provider Unavailable Encounter Details Date Type Department Care Team Description 04/25/2015 Hospital Encounter [facility] Maureen Lua, Ramos THOMASN, C.N.P. [address] [place] [address] [phone] (Wo rk) Social History Tobacco [...] How often do you attend congregation or bahai Never 10/23/2020 services? 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 Electronically Signed By: MAUREEN SINGER HEAD OF MARKETING ANALYTICS On: 04/25/2015 03:06 PM Source: [facility] POWERCHART Document Id: [id number] documented in this encounter Miscellaneous Notes Miscellaneous - Maureen Singer, RYamileth. - 04/25/2015 4:06 PM CDT From: MAUREEN SINGER HEAD OF MARKETING ANALYTICS Sent: 04/25/2015 16:06:26 CDT patient aware of hcg results and wet prep. she will try baking soda soaks and OTC remedies as needed. Source: [facility] POWERCHART Document Id: [id number] Electronically signed by Stuart, [facility] Predictive Maintenance Technician [id number] at 01/10/2017 5:16 PM CDT Miscellaneous - Nena Ocampo L.P.N. - 04/25/2015 2:40 PM CDT Adult Environmental Intern Intake/History Adult Environmental Intern Intake/History Entered On: 04/25/2015 14:42 CDT Performed [...] Information Given By : Patient Languages : Albanian Is Patient Female and 13-50 no hysterectomy [...] OCAMPO LPN - 04/25/2015 14:40 CDT Source: [facility] POWERCHART Document Id: [id number] CDT!37 documented in this encounter Plan of [...]
--- OUTSIDE RECORDS SUMMARY | 2022-07-06 10:28 | XMS_ITS | Encounter Summary ---
:1995 Author Organization [facility] Address [address] [place] [address] Care Team Providers Name Role Phone Unavailable Primary Care Provider Unavailable Encounter Details Date Type Department Care Team Description 07/18/2014 Hospital Encounter [facility] [place] Manny Diaz, N[address] [place] [phone] (Wo rk) Social History Tobacco Use [...] How often do you attend caodaism or orthodoxy Never 10/23/2020 services? 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 - 07/18/2014 2:23 PM CST [id number] CHIEF COMPLAINT/REASON FOR VISIT Cold symptoms. Asthma [...] DIAZ NP On: 08/12/2014 05:22 PM Source: [facility] MHSDOLBEYNONRADSYS Document Id: [id number] T SORTER documented in this encounter Procedure Notes Jeanette Dennison L.P.N. - 07/18/2014 2:42 PM CST Asthma Control Test (12 yrs and older) Asthma Control Test (12 yrs and older) Entered On: 07/18/2014 14:42 SHEET SORTER Performed On: 07/18/2014 14:42 SHEET SORTER by JEANETTE DENNISON ACT Past 4 weeks [...] : 24 JEANETTE DENNISON - 07/18/2014 14:42 SHEET SORTER Source: [facility] POWERCHART Document Id: [id number] SHEET SORTER!8 T SORTER documented in this encounter Miscellaneous Notes Miscellaneous - Jeanette Dennison L.P.N. - 07/18/2014 2:41 PM CST Health Assessment Health Assessment Entered On: 07/18/2014 14:41 SHEET SORTER Performed On: 07/18/2014 14:41 SHEET SORTER by JEANETTE DENNISON Health Assessment Complete Health Assessment Complete or Modified : Annual Health Assessment Annual Health Assessment Completed : Yes JEANETTE DENNISON - 07/18/2014 14:41 SHEET SORTER Nutrition Nutrition Risk Factors by History Adult : None JEANETTE DENNISON - 07/18/2014 14:41 SHEET SORTER Functional Current Daily Living Assistance : None JEANETTE DENNISON - 07/18/2014 14:41 SHEET SORTER Dependent Habits Tobacco Use/Currently Using : No Exposure to Tobacco Smoke : Care provider denies smoking in home, Other: former smoker Smoking Status : Never smoker JEANETTE DENNISON - 07/18/2014 14:41 SHEET SORTER Tobacco Use Grid Last Use : never JEANETTE DENNISON - 07/18/2014 14:41 SHEET SORTER Caffeine Use Grid Caffeine Use : Current Type : Soft drinks Frequency : Occasionally JEANETTE DENNISON - 07/18/2014 14:41 SHEET SORTER Recreational Drug Use Grid Drug Use : None JEANETTE DENNISON 07/18/2014 14:41 SHEET SORTER Psychosocial Domestic Abuse Concerns : None Protestant Preference : JEANETTE Ortiz - 07/18/2014 14:41 SHEET SORTER Advance Directive Advanced Directives : No Advance Directive Additional Information : No JEANETTE DENNISON 07/18/2014 14:41 SHEET SORTER Educ Needs Learning Style Preference Adult Grid Patient : None Family : None JEANETTE DENNISON - 07/18/2014 14:41 SHEET SORTER Source: [facility] POWERCHART Document Id: [id number] SHEET SORTER!33 T SORTER Miscellaneous - Jeanette Dennison LGonzaloPGonzaloN. 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 : No JEANETTE DENNISON - 07/18/2014 14:37 SHEET SORTER Subjective Pain Symptoms : No JEANETTE DENNISON - 07/18/2014 14:37 SHEET SORTER Dependent Habits Tobacco Use/Currently Using : No Exposure to Tobacco Smoke : Care provider denies smoking in home, Other: former smoker Smoking Status : Never smoker JEANETTE DENNISON - 07/18/2014 14:37 SHEET SORTER Tobacco Use Grid Last Use : never JEANETTE DENNISON - 07/18/2014 14:37 SHEET SORTER Caffeine Use Grid Caffeine Use : Current Type : Soft drinks Frequency : Occasionally JEANETTE DENNISON - 07/18/2014 14:37 SHEET SORTER Recreational Drug Use Grid Drug Use : None JEANETTE DENNISON - 07/18/2014 14:37 SHEET SORTER ID Screen Drug Resistant Organism : No Travel Within Last 21 Days : No JEANETTE DENNISON - 07/18/2014 14:37 SHEET SORTER Source: [employer] Document Id: [id number] SHEET SORTER!41 T SORTER documented in this encounter Plan of Treatment Not on filedocumented as of this encounter Visit Diagnoses Not on filedocumented in this encounter
--- OUTSIDE RECORDS SUMMARY | 2022-07-06 10:28 | XMS_ITS | Encounter Summary ---
:1995 Author Organization [facility] Address [address] [place] [address] Care Team Providers Name Role Phone Unavailable Primary Care Provider Unavailable Encounter Details Date Type Department Care Team Description 10/28/2014 Hospital Encounter [facility] Iva Sam, SHAYE N, C.N.P. [address] [place], [place] [phone] (Wo rk) Social History [...] How often do you attend baptist or gnosticism Never 10/23/2020 services? 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
--- OUTSIDE RECORDS SUMMARY | 2022-07-06 10:28 | XMS_ITS | Encounter Summary ---
:1995 Author Organization [facility] Address [address] [place] [address] Care Team Providers Name Role Phone Unavailable Primary Care Provider Unavailable Encounter Details Date Type Department Care Team Description 05/01/2014 Hospital Encounter [facility] Maureen Lua, Ramos THOMASN, C.N.P. [address] [place] [address] [phone] (Wo rk) Social History Tobacco [...] How often do you attend catholic or mandaen Never 10/23/2020 services? 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 - 05/01/2014 1:50 PM CDT Depo-Provera Administration Depo-Provera Administration Entered On: 05/01/2014 13:50 CDT Performed On: 05/01/2014 13:50 CDT by JOY JOHNSON LPN Depo-Provera Administration Return appointment : 07/31/2014 STENOTYPIST JOY JOHNSON LPN - 05/01/2014 13:50 CDT Source: [facility] POWERCHART Document Id: [id number] CDT!3 documented in this encounter Plan of [...]
--- OUTSIDE RECORDS SUMMARY | 2022-07-06 10:28 | XMS_ITS | Encounter Summary ---
:1995 Author Organization [facility] Address [address] [place] [address] Care Team Providers Name Role Phone Unavailable Primary Care Provider Unavailable Encounter Details Date Type Department Care Team Description 04/26/2015 Hospital Encounter HX [facility] Law petersen M.D. [address] [place] [phone] (Wo rk) Social History Tobacco Use Types [...] How often do you attend shinto or presybeterian Never 10/23/2020 services? 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 Sinusitis Acute NOS Patient has significant frontal headache and hot and cold flashes with nasal stuffiness. We are going to treat her for a sinus infection with Augmentin 1 pill twice daily for 10 days. She is given a note to stay home from work today. Ordered: OV Est Pt Level 3 - 76281 - 15 min Orders: amoxicillin-clavulanate, 1 tab(s), PO, 2xDay, x 10 day(s), # 20 tab(s), 0 Refill(s), Acute, Pharmacy: [facility] predniSONE, 40 mg = 2 tab(s), PO, Daily, x 5 day(s), # 10 tab(s), 0 Refill(s), Acute, Pharmacy: [facility] Electronically Signed By: LAW BACA MD On: 04/26/2015 09:18 AM Source: [facility] POWERCHART Document Id: [id number] documented in this encounter Miscellaneous Notes Miscellaneous - Law Mancilla M.D. - 04/27/2015 11:16 AM CDT Work Excuse 27 April 2015 DHIRAJ LANDA [address] [facility] [id number] Dear DHIRAJ LANDA, You were examined in [...] not feeling better yet. Sincerely, LAW BACA [address] [place] [address] Electronic Signature Electronically Signed By: LAW BACA MD On: 27 April 2015 This document has images extracted. Source: [employer] Document Id: [id number] Electronically signed by Conversion, [facility] Special Education Professional [id number] at 01/10/2017 5:16 PM CDT Ramona - Law Mancilla M.D. - 04/26/2015 8:58 AM CDT Work Excuse 26 April 2015 DHIRAJ LANDA [address] [facility] [id number] Dear DHIRAJ LANDA, You were examined in [...] feeling better Notes: _ Sincerely, LAW BACA [address] [place] [address] Electronic Signature Electronically Signed By: LAW BACA MD On: 26 April 2015 This document has images extracted. Source[facility] Document Id: [id number] Electronically signed by Conversion, [facility] Special Education Professional [id number] at 01/10/2017 5:16 PM CDT Law Jones M.D. - 04/26/2015 8:57 AM CDT Ambulatory Patient Summary [address] MERNA Kebede [phone] Visit Information Name: DHIRAJ LANDA [facility] Number: [id number] Current Date: 04/26/2015 08:57:46 [...] day x 10 day(s) New Routed to [address] [address] fluticasone nasal (Flonase 0.05 mg/inh nasal spray) 2 Sanborn(s), Nasal, two times a day fluticasone-salmeterol (Advair Diskus 250 mcg-50 mcg inhalation powder) 1 puff(s), Inhalation, two times a day medroxyPROGESTERone (Depo-Provera Contraceptive 150 mg/mL intramuscular suspension) 1 Milliliter, Intramuscular, every 90 days predniSONE (predniSONE 20 mg oral tablet) 2 Tablet(s), Oral, once a day x 5 day(s) New Routed to [address] [id number] sertraline (Zoloft 100 mg oral tablet) 1 [...] you dont have one. [facility] to [email or web address] and click on Create Your Account. Then, follow the directions to complete the online form. Youll be asked for your [facility] number which you can find at the top of this document. Your Goals/Additional instructions: Source: [facility] POWERCHART Document Id: [id number] Miscellaneous - Law Mancilla M.D. - 04/26/2015 8:57 AM CDT Ambulatory Discharge Medication List [address] [id number] Visit Information Name: DHIRAJ LANDA [facility] [...] day x 10 day(s) New Routed to [address] [address] fluticasone nasal (Flonase 0.05 mg/inh nasal spray) 2 Sanborn(s), Nasal, two times a day fluticasone-salmeterol (Advair Diskus 250 mcg-50 mcg inhalation powder) 1 puff(s), Inhalation, two times a day medroxyPROGESTERone (Depo-Provera Contraceptive 150 mg/mL intramuscular suspension) 1 Milliliter, Intramuscular, every 90 days predniSONE (predniSONE 20 mg oral tablet) 2 Tablet(s), Oral, once a day x 5 day(s) New Routed to [address] [id number] sertraline (Zoloft 100 mg oral tablet) 1 [...] MD Signed On:26-APR-2015 08:57:36 Additional Information: Source: [facility] POWERCHART Document Id: [id number] Miscellaneous - Teresa Parkinson LGonzaloP.N. - 04/26/2015 8:40 AM CDT Adult Vp Global Intake/History Adult Vp Global Intake/History Entered On: 04/26/2015 8:43 CDT Performed [...] 04/26/2015 8:40 CDT General Info Languages : South Sudanese Is Patient Female and 13-50 no hysterectomy [...] Soft drinks Frequency : Occasionally [facility] - 04/26/2015 8:40 CDT Recreational Drug Use Grid Drug Use : None [facility] - 04/26/2015 8:40 CDT Source: [employer] Document Id: [id number] CDT!42 documented in this encounter Plan of Treatment Not on filedocumented as of this encounter Visit Diagnoses Not on filedocumented in this encounter
--- OUTSIDE RECORDS SUMMARY | 2022-07-06 10:28 | XMS_ITS | Encounter Summary ---
:1995 Author Organization [facility] Address [address] [place] [address] Care Team Providers Name Role Phone Unavailable Primary Care Provider Unavailable Encounter Details Date Type Department Care Team Description 11/18/2014 [facility] Karlie Mark M.D. [address] [place], [place] [phone] (Wo rk) Social History [...] How often do you attend mosque or orthodox Never 10/23/2020 services? 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 - 11/18/2014 12:16 PM CDT [id number] Patient is coming back for followup. She [...] OLMEDO MD On: 11/25/2014 10:33 AM Source: [facility] MHSDOLBEYNONRADSYS Document Id: [id number] documented in this encounter Miscellaneous Notes Miscellaneous - Teresa Parkinson, L.P.N. 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
--- OUTSIDE RECORDS SUMMARY | 2022-07-06 10:28 | XMS_ITS | Encounter Summary ---
:1995 Author Organization [facility] Address [address] [place] [address] Care Team Providers Name Role Phone Unavailable Primary Care Provider Unavailable Encounter Details Date Type Department Care Team Description 12/26/2013 - Hospital Encounter [facility]X [facility] Carlee Alfonso 12/29/2013 ZHEN Baker M.D. [address] [place] [phone] Social History Tobacco Use Types Packs/Day [...] How often do you attend lutheran or oriental orthodox Never 10/23/2020 services? 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
--- OUTSIDE RECORDS SUMMARY | 2022-07-06 10:28 | XMS_ITS | Encounter Summary ---
:1995 Author Organization [facility] Address [address] [place] [id number] Care Team Providers Name Role Phone Unavailable Primary Care Provider Unavailable Encounter Details Date Type Department Care Team Description 12/26/2013 - Hospital Encounter [facility] Carlee Alfonso 12/29/2013 ZHEN Baker M.D. [address] [place] [id number] Social History Tobacco Use Types Packs/Day [...] How often do you attend restorationist or rastafari Never 10/23/2020 services? 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 - 12/29/2013 12:08 PM CDT Hospital Discharge Instructions [address] [address] Patient Discharge Instructions Name: DHIRAJ JOSEPH Current Date: 12/29/2013 12:08:48 : 1995 12:00 AM [facility] Number: [id number] Patient Address: [address] [place] [id number] Patient Primary Care Provider: Name: PCP, UNASSIGNED - RW Phone: Discharge Diagnosis: 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 ?? [id number] [facility], [address] [place] [address], [place] [address]. All rights reserved. This information is not intended as a substitute for professional medical care. Always follow your healthcare professional's instructions. This document has images extracted. Please consider using madvertise for all your patient education needs. Source: [facility] POWERCHART Document Id: [id number] Lexii Parkinson R.N. - 12/29/2013 12:08 PM CDT Hospital Discharge Medication List [facility] [address] [place] [address] Discharge Medication List Name: DHIRAJ JOSEPH Current Date: 12/29/2013 12:08:47 : 1995 12:00 AM [facility] Number: [id number] Patient Address: [address] [place] [phone] Patient Primary Care Provider: Name: PCP, UNASSIGNED - RW Phone: Discharge Diagnosis: [facility] in [place] would like to thank you for allowing [...] nasal (Flonase 0.05 mg/inh nasal spray) 2 [place](s), Nasal, two times a day fluticasone-salmeterol (Advair [...] CARLEE MADRID MD Signed On:29-DEC-2013 07:20:21 Source: [facility] POWERCHART Document Id: [id number] Carlee Madrid M.D. - 12/29/2013 7:11 AM [...] counts correct. No sponges retained. Excellent hemostasis. KPH=010. 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 - 12/27/2013 7:04 PM [...] 22.4 x10(9)/L (12/27/13) RDW: 12.7 % (12/27/13) Thurston Absolute: 0.72 x10(9)/L (12/26/13) Eos Absolute: 0.11 [...] HARRINGTON MD On: 12/27/2013 07:07 PM Source: [facility] POWERCHART Document Id: [id number] documented in this encounter H&P Notes Carlee [...] EFM 155 +qa no decels +mod variability Panaca: q4 minutes A: Early Term SROM, Cat [...] decels, + accelerations - catagory 1 tracing Panaca - contractions every 2-5 minutes Cervix -6/80%/0 [...] decels, + accelerations - catagory 1 tracing [place] - contractions every 2-6 minutes Cervix -deferred [...] MADRID MD On: 12/26/2013 04:18 PM Source: [facility] POWERCHART Document Id: [id number] Lulu Richardson, R.N. - 12/26/2013 4:04 PM [...] Preferred Communication Mode : Verbal Languages : Jordanian Last Food Intake Date & Time : [...] CARLEE MADRID MD Exercise induced (SNOMED CT :845425231 ) Name of Problem: ; Onset Date: 06/06/2013 ; Recorder: JOY JOHNSON LPN; Confirmation: Confirmed ; Classification: Medical ; Code: 953435798 ; Last Updated: 11/20/2013 8:42 CDT ; Life Cycle Status: Active ; Responsible Provider: BRIDGET HARRINGTON MD; Vocabulary: SNOMED CT Supervision of Normal First (ICD-9-CM :V22.0 ) Name of Problem: Supervision of Normal First ; Onset Date: 06/06/2013 ; Confirmation: Confirmed ; Classification: Medical ; Code: V22.0 ; Contributor System: [facility]_HX_PR_UPLOAD ; Last Updated: 11/10/2013 14:41 CDT ; [...] IV fentanyl before epidural Delivery Plan : Children 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 : Yes Pain Symptoms : No Domestic Abuse Concerns : None Concerns About Family Members at Home : No Emotional Support Available : Yes Chronic/Terminal Illness Freq Visits : No Financial Concerns Regarding Hospitalization/Discharge : No Behavioral Health Screen/Safety Assmt : Yes Coping : Effective Confucianism Preference : Unknown LULU RICHARDSON RN - 12/26/2013 16:04 CDT Advance Directive Advanced Directives : No LULU RICHARDSON RN - 12/26/2013 16:04 CDT Educ Needs Patient/Family Education Needs : Medications, Pain management, Plan of care LULU RICHARDSON RN - 12/26/2013 16:04 CDT Learning Style Preference Adult Grid Patient : Demonstration, Verbal explanation Family : None LULU RICHARDSON [facility] 12/26/2013 16:04 CDT General Level of Consciousness : Alert Orientation : Oriented x 3 Affect/Behavior : Calm Distress : None Skin Color : Normal for ethnicity Skin Description : Dry Skin Temperature : Warm LULU RICHARDSON [facility] 12/26/2013 16:04 CDT Cardiovascular Heart Rhythm : Regular Edema Assessment : No LULU RICHARDSON [facility] 12/26/2013 16:04 CDT Pulses Grid Radial Pulse, Left : 2+ Normal Radial Pulse, Right : 2+ Normal LULU RICHARDSON [facility] 12/26/2013 16:04 CDT Respiratory Respiratory Pattern : Regular All Lobes Breath Sounds : Clear Respirations : Unlabored Cough : None LULU RICHARDSON [facility] 12/26/2013 16:04 CDT Gastrointestinal Bowel Sounds All Quadrants : Present Abdomen Palpation : Soft Passing Flatus : Yes LULU RICHARDSON [facility] 12/26/2013 16:04 CDT Genitourinary Patient Stated Symptoms : None LULU RICHARDSON [facility] 12/26/2013 16:04 CDT Musculoskeletal Musculoskeletal Patient Stated Symptoms : None LULU RICHARDSON [facility] 12/26/2013 16:04 CDT Integumentary Integumentary Patient Stated Symptoms : None Skin Integrity : Intact Mucous Membrane Color : [place] Mucous Membrane Description : Moist Skin Color : Normal for ethnicity Skin Description : Dry Skin Temperature : Warm LULU RICHARDSON [facility] 12/26/2013 16:04 CDT Neurological Clonus : Not present Extremity Movement : Equal Gait : Steady LULU RICHARDSON - 12/26/2013 16:04 CDT Left Knee Reflex Left Knee : 2+ Right Knee : 2+ LULU RICHARDSON [facility] 12/26/2013 16:04 CDT Peripheral IV Peripheral [...] RICHARDSON RN - 12/26/2013 16:04 CDT Source: [employer] Document Id: [id number] CDT!174 documented in this encounter Procedure Notes [...] CHELSEA SAUCEDO - 12/28/2013 22:28 CDT Source: [facility] Document Id: [id number] CDT!11 Bridget Harrington M.D. - 12/27/2013 5:21 [...] counts correct. No sponges retained. Excellent hemostasis. ZTS=421. Placenta to pathology for prolonged rupture and episodes of tachycardia. Electronically Signed By: BRIDGET HARRINGTON MD On: 12/27/2013 05:35 PM Modified by and Electronically Signed by: BRIDGET HARRINGTON MD On: 12/27/2013 05:35 PM Source: [facility] Document Id: [id number] Teresa Alicia, R.N. - 12/27/2013 4:41 AM CDT Urinary Catheter Insertion/Discontinuation Urinary Catheter Insertion/Discontinuation Entered On: 12/27/2013 4:42 CDT Performed On: 12/27/2013 4:41 CDT by TERESA ALICIA RN Urinary Catheter Urinary Catheter Activity Type : Insert Urinary Catheter Insertion Site : Urethral Urinary Catheter Size : 16 Yoruba Urinary Catheter Type : Indwelling/Continuous Date/Time Catheter Insertion : 12/27/2013 3:45 CDT Urinary Catheter Balloon Inflation : 10 mL sterile water Urinary Catheter Secured : Tape Urinary Catheter Drainage System : Dependent drainage bag Urinary Catheter Procedure Response : Expected Urinary Catheter Procedure Tolerance : Good TERESA ALICIA RN - 12/27/2013 4:41 CDT Source: [facility] [employer]CHART Document Id: [id number] CDT!12 Teresa Alicia R.N. - 12/27/2013 3:00 [...] No complications Intraspinal Flow Control Device : FLORIST'S DECORATOR TERESA ALICIA RN - 12/27/2013 3:16 CDT Source: [employer] Document Id: [id number] CDT!8 Lulu Richardson R.N. - 12/26/2013 4:33 [...] RICHARDSON RN - 12/26/2013 16:33 CDT Source: [employer] Document Id: [id number] CDT!15 documented in this encounter Nursing Notes Matt Sterling R.N., I.B.C.L.C. - 12/29/2013 1:30 PM CDT Assessment Assessment Entered On: 12/29/2013 14:33 CDT Performed On: 12/29/2013 13:30 CDT by MATT STERLING cordwood cutter Assessment Indication : Ongoing Assessment Referral : discretion Maintenance Leader Needed : No Visit Summary : Public Policy Coordinator visit on day of discharge. Mom is independent in latch on when using cross cradle hold, breasts are starting to change, nipples are intact, using warm soak, hydrogel and breastmilk. Hand Medela pump sent with her, cold therapy sent as well. Problems Identified - [place] : Late Infant, Weight loss Problems Identified [...] STERLING RN - 12/29/2013 14:29 CDT Source: [facility] Document Id: [id number] CDT!31 Chelsea Saucedo R.N. - 12/29/2013 2:00 [...] Breath Sounds : Clear Cough : None CEHLSEA SAUCEDO - 12/29/2013 3:38 CDT Cardiovascular CV Patient Stated Symptoms : None Heart Rhythm : Regular Nail Bed Color : [place] Capillary Refill : Less than 2 seconds Edema Assessment : No Skin Color : Normal for ethnicity Skin Description : Normal Skin Temperature : Warm Activity Tolerance : Without distress CHELSEA SAUCEDO - 12/29/2013 3:38 CDT Neurological Neuro Patient Stated Symptoms : None Level of Consciousness : Alert Gait : Steady Swallowing Difficulty/Aspiration Risk : None CHELSEA SAUCEDO 12/29/2013 3:38 CDT Brady Coma Eye Opening Response Brady : Spontaneously Best Verbal Response Mariangel : Oriented Best Motor Response Brady : Obeys simple commands Brady Coma Score : 15 CHELSEA SAUCEDO 12/29/2013 [...] : None Activity Tolerance : Without distress CHELESA SAUCEDO 12/29/2013 3:38 CDT Hendrich II Fall [...] understanding CHELSEA SAUCEDO 12/29/2013 3:38 CDT Source: [facility] POWERCHART Document Id: [id number] CDT!90 Matt Sterling R.N., I.BGonzaloCGonzaloLGonzaloC. - 12/28/2013 2:30 PM CDT Assessment Assessment Entered On: 12/28/2013 15:58 CDT Performed On: 12/28/2013 14:30 CDT by MATT STERLING RN Assessment Assessment Indication : Consult Referral : discretion Maintenance Leader Needed : No Visit Summary : Public Policy Coordinator visit to review skin care management with colostrum and hydrogels, Give Rx to grandmother for electric pump. L1 at 37 4/7 weeks gestation, apgars 8 and 9, A+,GBS +, SPROM and Pitocin augmentation of labor. 149 minute second stage, , laceration only. Problems Identified - [place] : Late Infant Problems Identified - Mother [...] Late Infant, Milk Supply - Establishing, behavior, [place], sleep states, Nipple management, hydrogels, Position, cross cradle, Swallowing pattern, Swallowing sound (Comment: Introduced medical record consultant role, demonstrated hand expression, assisted with [...] STERLING RN - 12/28/2013 15:51 CDT Source: [facility] POWERCHART Document Id: [id number] CDT!36 Lexii Parkinson R.N. - 12/28/2013 9:30 [...] Rhythm : Regular Nail Bed Color : [place] Capillary Refill : Less than 2 seconds Skin Color : Normal for ethnicity Skin Description : Normal Skin Temperature : Warm Activity Tolerance : Without distress LEXII REEVES RN - 12/29/2013 7:44 CDT Neurological Neuro Patient Stated Symptoms : None Orientation : Oriented x 3 Level of Consciousness : Alert LEXII REEVES RN - 12/29/2013 7:44 CDT Brady Coma Eye Opening Response Mariangel : Spontaneously Best Verbal Response Brady : Oriented Best Motor Response Mariangel : Obeys simple commands Brady Coma Score : 15 LEXII REEVES RN [...] REEVES RN - 12/29/2013 7:44 CDT Source: [facility] POWERCHART Document Id: [id number] CDT!64 Lexii Parkinson RChristy - 12/28/2013 8:20 [...] Rhythm : Regular Nail Bed Color : [place] LEXII REEVES RN - 12/28/2013 8:20 CDT Neurological Neuro Patient Stated Symptoms : None Orientation : Oriented x 3 Level of Consciousness : Alert LEXII REEVES RN - 12/28/2013 8:20 CDT Mariangel Coma Eye Opening Response Mariangel : Spontaneously Best Verbal Response Mariangel : Oriented Best Motor Response Brady : Obeys simple commands Brady Coma Score : 15 LEXII REEVES RN [...] REEVES RN - 12/28/2013 8:20 CDT Source: [employer] Document Id: [id number] CDT!53 Teresa Alicia RGonzaloNGonzalo - 12/28/2013 6:41 [...] ALICIA RN - 12/28/2013 6:41 CDT Source: [employer] Document Id: [id number] CDT!16 Teresa Alicia R.NGonzalo - 12/28/2013 5:46 [...] ALICIA RN - 12/28/2013 5:46 CDT Source: [employer] Document Id: [id number] CDT!17 Teresa Alicia RGonzaloNGonzalo - 12/28/2013 3:39 [...] ALICIA RN - 12/28/2013 3:39 CDT Source: [employer] Document Id: [id number] CDT!11 Teresa Alicia RGonzaloNGonzalo - 12/28/2013 2:31 [...] ALICIA RN - 12/28/2013 3:39 CDT Source: [employer] Document Id: [id number] CDT!3 Teresa Alicia R.N. - 12/28/2013 1:30 AM CDT Post Assessment * Post Assessment * Entered On: 12/28/2013 1:30 CDT Performed On: 12/28/2013 1:30 CDT by TERESA ALIICA RN Extremities Clonus : Not present TERESA [...] ALICIA RN - 12/28/2013 1:30 CDT Source: [employer] Document Id: [id number] CDT!15 Teresa Alicia R.NGonzalo - 12/28/2013 1:24 AM CDT md angelina Harrington was notified about pt elevated blood pressures and abnormal lab results. Pt denies headache, blurry vision, or right upper quadrant pain. Orders recieved and MD to come and evaluatept at bedside. Electronically Signed By: TERESA ALICIA RN On: 12/28/2013 01:25 AM Source: [employer] Document Id: [id number] Teresa Alicia R.N. - 12/28/2013 12:32 AM [...] ALICIA RN - 12/28/2013 0:34 CDT Source: [employer] Document Id: [id number] CDT!11 Teresa Alicia R.N. - 12/28/2013 12:18 AM CDT PRN Response PRN Response Entered On: 12/28/2013 0:18 CDT Performed On: 12/28/2013 0:18 CDT by TERESA ALICIA RN PRN Medication Effectiveness Evaluation PRN Medication Effective : Yes TERESA ALICIA RN - 12/28/2013 0:18 CDT Source: [employer] Document Id: [id number] CDT!3 Teresa Alicia R.N. - 12/27/2013 11:30 [...] ICU : S1S2 Nail Bed Color : [place] Capillary Refill : Less than 2 seconds [...] 23:45 CDT Mariangel Coma Eye Opening Response Brady : Spontaneously Best Verbal Response Brady : Oriented Best Motor Response Mariangel : [...] : Not intact Mucous Membrane Color : [place] Mucous Membrane Description : Moist Skin Color [...] ALICIA RN - 12/27/2013 23:45 CDT Source: [employer] Document Id: [id number] CDT!153 Teresa Alicia R.N. - 12/27/2013 10:26 [...] ALICIA RN - 12/27/2013 22:26 CDT Source: [employer] Document Id: [id number] CDT!9 Teresa Alicia R.N. - 12/27/2013 10:01 [...] ALICIA RN - 12/27/2013 22:01 CDT Source: [employer] Document Id: [id number] CDT!16 Teresa Alicia R.N. - 12/27/2013 9:46 [...] ALICIA RN - 12/27/2013 21:46 CDT Source: [facility] Document Id: [id number] CDT!14 Teresa Alicia R.N. - 12/27/2013 9:30 [...] ALICIA RN - 12/27/2013 21:37 CDT Source: [facility] POWERCHART Document Id: [id number] CDT!14 Teresa Alicia R.N. - 12/27/2013 7:25 PM CDT Post Assessment * Post Assessment * Entered On: 12/27/2013 19:25 CDT Performed On: 12/27/2013 19:25 CDT by TEERSA ALICIA RN Post Partum Assessment * Fundus [...] ICU : S1S2 Nail Bed Color : [place] Capillary Refill : Less than 2 seconds [...] TERESA ALICIA RN - 12/27/2013 20:07 CDT Brady Coma Eye Opening Response Brady : Spontaneously Best Verbal Response Mariangel : Oriented Best Motor Response Brady : Obeys simple commands Brady Coma Score : 15 TERESA ALICIA RN [...] : Not intact Mucous Membrane Color : [place] Mucous Membrane Description : Moist Skin Color [...] to injury warm and pink TERESA ALICIA [facility] - 12/27/2013 20:07 CDT Krzysztof Sensory Perception Krzysztof : No impairment Moisture Krzysztof : Rarely moist Activity Krzysztof : Walks frequently Mobility Krzysztof : No limitations Nutrition Krzysztof : Excellent Friction and Shear Krzysztof : No apparent problem Krzysztof Score : 23 TERESA ALICIA [facility] - 12/27/2013 20:07 CDT Musculoskeletal Musculoskeletal Patient Stated Symptoms : None Activity Tolerance : Without distress TERESA ALICIA [facility] - 12/27/2013 20:07 CDT Musculoskeletal Strength Grid Left Upper Extremity Right Upper Extremity Left Lower Extremity Right Lower Extremity Strength : Strong to gravity and resistance Strong to gravity and resistance Strong to gravity and resistance Strong to gravity and resistance TERESA ALICIA [facility] - 12/27/2013 20:07 CDT TERESA ALICIA [facility] - 12/27/2013 20:07 CDTFTERESA D[facility]ERO [facility] 12/27/2013 20:07 CDT TERESA ALICIA [facility] - 12/27/2013 20:07 CDT Peripheral IV [...] : , Colostrum, Medication dosage, route, scheduling, [place] behavior, Normal , Nargis-Care, Plan of care, Safety, fall Individuals Taught : Patient Barriers to Learning : None evident Teaching Method : Explanation Teaching Evaluation : Verbalizes understanding TERESA ALICIA RN - 12/27/2013 20:07 CDT Source: [facility] Document Id: [id number] CDT!161 Laurie Ely R.N. - 12/27/2013 6:30 [...] ELY RN - 12/27/2013 19:57 CDT Source: [facility] Document Id: [id number] CDT!10 Ankush Hinds R.N. - 12/27/2013 6:24 [...] HINDS RN - 12/27/2013 18:24 CDT Source: [facility] Document Id: [id number] CDT!6 Laurie Ely R.N. - 12/27/2013 6:00 [...] ELY RN - 12/27/2013 19:56 CDT Source: [employer] Document Id: [id number] CDT!10 Laurie Ely R.N. - 12/27/2013 5:30 [...] ELY RN - 12/27/2013 19:54 CDT Source: [employer] Document Id: [id number] CDT!10 Laurie Ely R.N. - 12/27/2013 5:15 [...] ELY RN - 12/27/2013 19:53 CDT Source: [facility] Document Id: [id number] CDT!10 Laurie Ely R.N. - 12/27/2013 4:59 [...] ELY RN - 12/27/2013 19:20 CDT Source: [employer] Document Id: [id number] CDT!20 Laurie Ely R.N. - 12/27/2013 4:30 [...] ELY RN - 12/27/2013 19:18 CDT Source: [facility] Document Id: [id number] CDT!22 Laurie Ely R.N. - 12/27/2013 4:00 [...] ELY RN - 12/27/2013 19:16 CDT Source: [employer] Document Id: [id number] CDT!20 Laurie Ely R.N. - 12/27/2013 3:30 [...] ELY RN - 12/27/2013 19:14 CDT Source: [employer] Document Id: [id number] CDT!20 Laurie Ely R.N. - 12/27/2013 3:00 [...] ELY RN - 12/27/2013 19:12 CDT Source: [employer] Document Id: [id number] CDT!20 Laurie Ely R.N. - 12/27/2013 2:45 [...] ELY RN - 12/27/2013 19:12 CDT Source: [employer] Document Id: [id number] CDT!8 Laurie Ely R.N. - 12/27/2013 2:30 [...] ELY RN - 12/27/2013 19:07 CDT Source: [facility] [facility] Document Id: [id number] CDT!28 Laurie Ely R.N. - 12/27/2013 2:00 [...] ELY RN - 12/27/2013 19:05 CDT Source: [employer] Document Id: [id number] CDT!21 Laurie Ely R.N. - 12/27/2013 1:30 [...] ELY RN - 12/27/2013 13:45 CDT Source: [employer] Document Id: [id number] CDT!22 Laurie Ely R.N. - 12/27/2013 1:00 [...] ELY RN - 12/27/2013 13:43 CDT Source: [employer] Document Id: [id number] CDT!17 Laurie Ely R.N. - 12/27/2013 12:30 [...] ELY RN - 12/27/2013 12:46 CDT Source: [facility] Document Id: [id number] CDT!3 Laurie Ely R.N. - 12/27/2013 12:00 [...] ELY RN - 12/27/2013 12:22 CDT Source: [employer] Document Id: [id number] CDT!17 Laurie Ely R.N. - 12/27/2013 11:36 [...] ELY RN - 12/27/2013 11:36 CDT Source: [facility] Document Id: [id number] CDT!16 Laurie Ely R.N. - 12/27/2013 11:00 [...] ELY RN - 12/27/2013 11:23 CDT Source: [employer] Document Id: [id number] CDT!18 Laurie Ely R.N. - 12/27/2013 10:30 [...] ELY RN - 12/27/2013 11:20 CDT Source: [employer] Document Id: [id number] CDT!17 Laurie Ely R.N. - 12/27/2013 10:00 [...] ELY RN - 12/27/2013 10:00 CDT Source: [employer] Document Id: [id number] CDT!17 Laurie Ely R.N. - 12/27/2013 9:30 [...] ELY RN - 12/27/2013 9:47 CDT Source: [employer] Document Id: [id number] CDT!16 Laurie Ely R.N. - 12/27/2013 9:00 [...] ELY RN - 12/27/2013 9:35 CDT Source: [employer] Document Id: [id number] CDT!19 Laurie Ely R.N. - 12/27/2013 8:30 [...] ELY RN - 12/27/2013 9:35 CDT Source: [facility] Document Id: [id number] CDT!3 Laurie Ely R.N. - 12/27/2013 8:00 [...] ELY RN - 12/27/2013 9:30 CDT Source: [employer] Document Id: [id number] CDT!3 Laurie Ely R.N. - 12/27/2013 7:30 [...] ELY RN - 12/27/2013 9:21 CDT Source: [employer] Document Id: [id number] CDT!18 Laurie Ely R.N. - 12/27/2013 7:00 [...] ELY RN - 12/27/2013 9:19 CDT Source: [employer] Document Id: [id number] CDT!15 Teresa Alicia RGonzaloNGonzalo - 12/27/2013 6:48 AM CDT Md notification 0630- notified of change in base line heart rate in EFM to 160bpm. no new orders recieved. Electronically Signed By: TERESA ALICIA RN On: 12/27/2013 06:49 AM Source: [employer] Document Id: [id number] Teresa Alicia RGonzaloN. - 12/27/2013 6:45 AM CDT Md notification 0500- Dr. Madrid updated on pt condition. Epidural placement, low blood pressure during epiduralplacement, and cervical check. No new orders recieved. Electronically Signed By: TERESA ALICIA RN On: 12/27/2013 06:47 AM Source: [employer] Document Id: [id number] Teresa Alicia R.N. - 12/27/2013 6:00 AM [...] ALICIA RN - 12/27/2013 6:33 CDT Source: [employer] Document Id: [id number] CDT!9 Teresa Alicia R.N. - 12/27/2013 2:42 AM CDT PRN Response PRN Response Entered On: 12/27/2013 3:31 CDT Performed On: 12/27/2013 2:42 CDT by TERESA ALICIA RN PRN Medication Effectiveness Evaluation PRN Medication Effective : Yes Post Medication Pain Assessment : 8 TERESA ALICIA RN - 12/27/2013 3:31 CDT Source: [employer] Document Id: [id number] CDT!4 Teresa Alicia R.N. - 12/27/2013 2:24 [...] ALICIA RN - 12/27/2013 2:24 CDT Source: [employer] Document Id: [id number] CDT!34 Teresa Alicia RGonzaloNGonzalo - 12/27/2013 12:45 [...] ICU : S1S2 Nail Bed Color : [place] Capillary Refill : Less than 2 seconds TERESA ALICIA [facility] 12/27/2013 0:45 CDT Pulses Grid Radial Pulse, Left : 2+ Normal Radial Pulse, Right : 2+ Normal Dorsalis Pedis Pulse, Left : 2+ Normal Dorsalis Pedis Pulse, Right : 2+ Normal TERESA ALICIA [facility] 12/27/2013 0:45 CDT Skin Color : Normal for ethnicity Skin Description : Dry Skin Temperature : Warm Activity Tolerance : Minimal distress TERESA ALICIA [facility] - 12/27/2013 0:45 CDT Neurological Neuro Patient Stated Symptoms : None Orientation : Oriented x 3 Level of Consciousness : Alert Gait : Steady Swallowing Difficulty/Aspiration Risk : None TERESA ALICIA - 12/27/2013 0:45 CDT Brady Coma Eye Opening Response Brady : Spontaneously Best Verbal Response Mariangel : Oriented Best Motor Response Brady : Obeys simple commands Brady Coma Score : 15 TERESA ALICIA [facility] 12/27/2013 0:45 CDT Psycho/Emotional Affect/Behavior : Calm Pain Symptoms : Yes TERESA ALICIA [facility] 12/27/2013 0:45 CDT Coping Grid Identifies [...] Values/Beliefs incorporated appropriately : Yes RAVINTERESA CANSECO [facility] - 12/27/2013 0:45 CDT Safety Grid Vision, Hearing, Mobility Adequate to Meet Safety Needs : Yes TERESA ALICIA [facility] 12/27/2013 0:45 CDT Pain Pain Assessment Grid Pain 1 Location : Abdomen Laterality : Bilateral TERESA ALICIA [facility] - 12/27/2013 0:45 CDT Gastrointestinal GI Patient Stated Symptoms : None Abdomen Description : Rounded Abdomen Palpation : Soft, Tender Tenderness : Left lower quadrant, Right lower quadrant Bowel Sounds All Quadrants : Present TERESA ALICIA - 12/27/2013 0:45 CDT Nutrition Eating Difficulties : None Appetite : Good RAVIN TERESA [facility] 12/27/2013 0:45 CDT Genitourinary Patient Stated Symptoms : None Urinary Elimination : Voiding, no difficulties Urine Color : Yellow Urine Description : Clear TERESA ALICIA [facility] 12/27/2013 0:45 CDT Integumentary Integumentary Patient Stated Symptoms : None Skin Turgor : Elastic Skin Integrity : Intact Mucous Membrane Color : [place] Mucous Membrane Description : Moist Skin Color : Normal for ethnicity Skin Description : Dry Skin Temperature : Warm TERESA ALICIA [facility] - 12/27/2013 0:45 CDT Krzysztof Sensory Perception Krzysztof : No impairment Moisture Krzysztof : Rarely moist Activity Krzysztof : Walks frequently Mobility Krzysztof : No limitations Nutrition Krzysztof : Excellent Friction and Shear Krzysztof : No apparent problem Krzysztof Score : 23 TERESA ALICIA [facility] 12/27/2013 0:45 CDT Musculoskeletal Musculoskeletal Patient Stated Symptoms : None TERESA ALICIA [facility] 12/27/2013 0:45 CDT Musculoskeletal Strength Grid Left Upper Extremity Right Upper Extremity Left Lower Extremity Right Lower Extremity Strength : Strong to gravity and resistance Strong to gravity and resistance Strong to gravity and resistance Strong to gravity and resistance TERESA ALICIA [facility] - 12/27/2013 0:45 CDT TERESA ALICIA [facility] 12/27/2013 0:45 CDT RAVINTERESA [facility] 12/27/2013 0:45 CDT RAVINTERESA [facility] - 12/27/2013 0:45 CDT Peripheral IV [...] Flow/ Patency : No complications TERESA ALICIA [facility] 12/27/2013 0:45 CDT Hendrich II Fall [...] Score Hendrich II : 1 TERESA ALICIA [facility] 12/27/2013 0:45 CDT Education General Patient Education Powergrid Topics : Activity limitations/expectations, Medication dosage, route, scheduling, Pain Management, Plan of care, Safety, fall Individuals Taught : Patient Barriers to Learning : None evident Teaching Method : Explanation Teaching Evaluation : Verbalizes understanding TERESA ALICIA RN - 12/27/2013 0:45 CDT Source: [facility] Document Id: [id number] CDT!136 Teresa Alicia R.N. - 12/26/2013 9:05 PM CDT md notification 2104- Md notified about pt blood pressure of 146/75. No new orders recieved., Electronically Signed By: TERESA ALICIA RN On: 12/26/2013 09:05 PM Source: [employer] Document Id: [id number] Teresa Alicia R.N. - 12/26/2013 8:04 PM CDT at bed side 1999- Dr. Madrid at bedside discussing starting pitocin with pt. Md did not want pt cervical check before initiating pitocin. orders recieved. Electronically Signed By: TERESA ALICIA RN On: 12/26/2013 08:06 PM Source: [employer] Document Id: [id number] Lulu Richardson R.N. - 12/26/2013 5:11 PM [...] RICHARDSON RN - 12/26/2013 17:11 CDT Source: [employer] Document Id: [id number] CDT!6 Lulu Richardson R.N. - 12/26/2013 3:15 [...] RICHARDSON RN - 12/26/2013 15:56 CDT Source: [facility] Document Id: [id number] CDT!33 Lulu Richardson R.N. - 12/26/2013 2:45 [...] M RN - 12/26/2013 15:43 CDT Source: [facility] Document Id: [id number] CDT!12 documented in this encounter Miscellaneous Notes Miscellaneous - Betzaida Kahn M.D. - 07/26/2015 12:50 PM CST Refill Request Reviewed chart, just had visit with Dr. Dupont, will refill ProAir HFA as requested. Last refill 2012. 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 Our records indicate that it is timefor you to be seen for Follow Up Depo with [facility]. You may call our office at [phone] to schedule an appointment with Women's [facility]. Please disregard this notice if you have already made an appointment. Sincerely, Mary Beth Beasley [facility] Sincerely, MARY BETH BRUNSON Electronic Signature Electronically Signed By: MARY BETH BRUNSON On: 06 June 2015 This document has images extracted. Source: [facility] Document Id: [id number] Miscellaneous - Conversion, Historical Provider Ser - 12/29/2013 3:00 PM CDT Coding Summary-Paper Based CODING DATE: 09/15/2015 FINAL RW [facility] STATUS: * Discharged to Home or Self [...] FISHER Date Saved: 09/15/2015 07:40 am Source: [facility] [employer] Document Id: [id number] Miscellaneous - Lexii Parkinson R.N. - 12/29/2013 7:51 AM CDT Adult Activities of Daily Living Adult Activities of Daily Living Entered On: 12/29/2013 7:52 CDT Performed On: 12/29/2013 7:51 CDT by LEXII REEVES RN ADLs I Patient Position : Sitting in bed Activity Status ADL : Ambulating in room LEXII REEVES RN - 12/29/2013 7:51 CDT Source: [employer] Document Id: [id number] CDT!4 Ramona - Chelsea Saucedo R.NGonzalo - 12/29/2013 5:29 AM CDT Adult Pain Assessment Adult Pain Assessment Entered On: 12/29/2013 5:29 CDT Performed On: 12/29/2013 5:29 CDT by CHELSEA SAUCEDO Pain Pain Assessment Grid Pain 1 Intensity : 0 CHELSEA SAUCEDO - 12/29/2013 5:29 CDT Source: [employer] Document Id: [id number] CDT!5 Miscellaneous - Chelsea Saucedo R.N. - [...] CHELSEA SAUCEDO - 12/29/2013 3:37 CDT Source: [employer] Document Id: [id number] CDT!8 Ramona - Chelsea Saucedo R.N. - [...] CHELSEA SAUCEDO - 12/28/2013 20:21 CDT Source: [employer] Document Id: [id number] CDT!6 Ramona - Teresa Alicia R.N. - [...] ALICIA RN - 12/28/2013 0:14 CDT Source: [employer] Document Id: [id number] CDT!9 Miscellaneous - Laurie Ely R.N. - 12/27/2013 7:52 PM CDT Neurovascular Assessment Lower Extremity Neurovascular Assessment Lower Extremity Entered On: 12/27/2013 19:52 CDT Performed On: 12/27/2013 19:52 CDT by LAURIE ELY RN Lower Extremity Nail Bed Color Feet Grid Left Foot : [place] Right Foot : [place] LAURIE ELY RN - 12/27/2013 19:52 CDT Capillary Refill Feet Grid Left Foot : < 2 seconds Right Foot : < 2 seconds LAURIE ELY RN - 12/27/2013 19:52 CDT NV Lower Extremity Color Grid Left : [place] Right : [place] LAURIE ELY RN - 12/27/2013 19:52 CDT [...] ELY RN - 12/27/2013 19:52 CDT [facility] [employer] Document Id: [id number] CDT!18 Miscellaneous - Ankush Hinds R.N. - [...] 12/27/2013 18:15 CDT ID Band Number : [id number] Score - 1 Minute : 8 Score [...] HINDS RN - 12/27/2013 18:15 CDT Source: [facility] [employer] Document Id: [id number] CDT!7 Miscellaneous - Laurie Ely RGonzaloNGonzalo - 12/27/2013 11:18 AM CDT Neurovascular Assessment Lower Extremity Neurovascular Assessment Lower Extremity Entered On: 12/27/2013 11:18 CDT Performed On: 12/27/2013 11:18 CDT by LAURIE ELY RN Lower Extremity Nail Bed Color Feet Grid Left Foot : [place] Right Foot : [place] LAURIE ELY RN - 12/27/2013 11:18 CDT Capillary Refill Feet Grid Left Foot : < 2 seconds Right Foot : < 2 seconds LAURIE ELY RN - 12/27/2013 11:18 CDT NV Lower Extremity Color Grid Left : [place] Right : [place] LAURIE ELY RN - 12/27/2013 11:18 CDT [...] ELY RN - 12/27/2013 11:18 CDT Source: [employer] Document Id: [id number] CDT!18 Miscellaneous - Laurie Ely R.N. - 12/27/2013 9:15 AM CDT Neurovascular Assessment Lower Extremity Neurovascular Assessment Lower Extremity Entered On: 12/27/2013 9:16 CDT Performed On: 12/27/2013 9:15 CDT by LAURIE ELY RN Lower Extremity Nail Bed Color Feet Grid Left Foot : [place] Right Foot : [place] LAURIE ELY RN - 12/27/2013 9:15 CDT Capillary Refill Feet Grid Left Foot : < 2 seconds Right Foot : < 2 seconds LAURIE ELY RN - 12/27/2013 9:15 CDT NV Lower Extremity Color Grid Left : [place] Right : [place] LAURIE ELY RN - 12/27/2013 9:15 CDT [...] ELY RN - 12/27/2013 9:15 CDT Source: [employer] Document Id: [id number] CDT!18 Miscellaneous - Teresa Alicia RGonzaloNGonzalo - [...] ALICIA RN - 12/27/2013 6:50 CDT Source: [employer] Document Id: [id number] CDT!15 Miscellaneous - Teresa Alicia RGonzaloNGonzalo - [...] ALICIA RN - 12/27/2013 6:34 CDT Source: [employer] Document Id: [id number] CDT!18 Miscellaneous - Teresa Alicia R.NGonzalo - [...] ALICIA RN - 12/27/2013 6:02 CDT Source: [employer] Document Id: [id number] CDT!14 Miscellaneous - Teresa Alicia R.NGonzalo - [...] ALICIA RN - 12/27/2013 5:28 CDT Source: [employer] Document Id: [id number] CDT!17 Ramona - Teresa Alicia R.N. - [...] ALICIA RN - 12/27/2013 5:02 CDT Source: [employer] Document Id: [id number] CDT!17 Ramona - Teresa Alicia, R.N. - [...] ALICIA RN - 12/27/2013 4:42 CDT Source: [employer] Document Id: [id number] CDT!17 Miscellaneous - Teresa Alicia, R.N. - [...] ALICIA RN - 12/27/2013 4:06 CDT Source: [employer] Document Id: [id number] CDT!17 Miscellaneous - Teresa Alicia RGonzaloNGonzalo - [...] ALICIA RN - 12/27/2013 3:46 CDT Source: [employer] Document Id: [id number] CDT!16 Octaviacellaneous - Teresa Alicia RGonzaloN. - [...] ALICIA RN - 12/27/2013 3:34 CDT Source: [employer] Document Id: [id number] CDT!16 Miscellaneous - Teresa Alicia R.NGonzalo - [...] ALICIA RN - 12/27/2013 3:32 CDT Source: [employer] Document Id: [id number] CDT!17 Miscellaneous - Teresa Alicia, R.N. - [...] ALICIA RN - 12/27/2013 2:21 CDT Source: [employer] Document Id: [id number] CDT!18 Miscellaneous - Teresa Alicia R.NGonzalo - [...] ALICIA RN - 12/27/2013 1:32 CDT Source: [employer] Document Id: [id number] CDT!17 Miscellaneous - Teresa Alicia, R.N. - [...] ALICIA RN - 12/27/2013 1:06 CDT Source: [employer] Document Id: [id number] CDT!15 Ramona - Teresa Alicia R.NGonzalo - [...] ALICIA RN - 12/27/2013 0:41 CDT Source: [employer] Document Id: [id number] CDT!18 Ramona - Teresa Alicia R.NGonzalo - [...] ALICIA RN - 12/27/2013 0:08 CDT Source: [employer] Document Id: [id number] CDT!16 Misorinaneous - Teresa Alicia R.N. - [...] ALICIA RN - 12/26/2013 23:54 CDT Source: [employer] Document Id: [id number] CDT!11 Miscellaneous - Teresa Alicia R.N. - [...] ALICIA RN - 12/26/2013 23:41 CDT Source: [employer] Document Id: [id number] CDT!3 Ramona - Teresa Alicia R.N. - [...] ALICIA RN - 12/26/2013 23:18 CDT Source: [employer] Document Id: [id number] CDT!18 Ramona - Teresa Alicia R.N. - [...] ALICIA RN - 12/26/2013 23:16 CDT Source: [employer] Document Id: [id number] CDT!16 Misorinaneous - Teresa Alicia RGonzaloNGonzalo - 12/26/2013 10:09 PM CDT Adult Activities of Daily Living Adult Activities of Daily Living Entered On: 12/26/2013 22:09 CDT Performed On: 12/26/2013 22:09 CDT by TERESA ALICIA RN ADLs I Activity Status ADL : Ambulating in morrell, Ambulating in room, Up with assistance Activity Assistance : Stand-by assistance TERESA ALICIA RN - 12/26/2013 22:09 CDT Source: [employer] Document Id: [id number] CDT!4 Octaviacellaneous - Teresa Alicia RGonzaloN. - [...] ALICIA RN - 12/26/2013 22:07 CDT Source: [employer] Document Id: [id number] CDT!17 Miscellaneous - Teresa Alicia, R.N. - [...] ALICIA RN - 12/26/2013 21:33 CDT Source: [employer] Document Id: [id number] CDT!18 Miscellaneous - Teresa Alicia R.N. - [...] ALICIA RN - 12/26/2013 21:06 CDT Source: [employer] Document Id: [id number] CDT!18 Miscellaneous - Teresa Alicia, R.N. - [...] ALICIA RN - 12/26/2013 20:32 CDT Source: [facility] Document Id: [id number] CDT!18 Octaviacellgustabo - Teresa Alicia RGonzaloNGonzalo - [...] ALICIA RN - 12/26/2013 20:01 CDT Source: [employer] Document Id: [id number] CDT!17 Octaviacellgustabo - Teresa Alicia R.NGonzalo - [...] 1 FHR Variability : Moderate variability Sinusoidal Rfanco/Baby A : No FHR Accelerations : Present FHR Deceleration : Absent TERESA ALICIA RN - 12/26/2013 19:28 CDT Source: [employer] Document Id: [id number] CDT!17 Miscellaneous - Lulu Richardson R.N. - [...] RICHARDSON RN - 12/26/2013 19:04 CDT Source: [employer] Document Id: [id number] CDT!5 Octaviacellaneous - Lulu Richardson RGonzaloNGonzalo - [...] RICHARDSON RN - 12/26/2013 19:00 CDT Source: [employer] Document Id: [id number] CDT!17 Miscellgustabo - Lulu Richardson RGonzaloNGonzalo - [...] RICHARDSON RN - 12/26/2013 18:46 CDT Source: [employer] Document Id: [id number] CDT!17 Miscellgustabo - Lulu Richardson, R.NGonzalo - [...] RICHARDSON RN - 12/26/2013 18:44 CDT Source: [employer] Document Id: [id number] CDT!17 Miscellaneous - Lulu Richardson R.N. - [...] RICHARDSON RN - 12/26/2013 17:43 CDT Source: [employer] Document Id: [id number] CDT!17 Octaviacellgustabo - Lulu Richardson, R.N. - [...] RICHARDSON RN - 12/26/2013 17:40 CDT Source: [facility] Document Id: [id number] CDT!17 Ramona - Lulu Richardson R.N. - [...] ; Reviewed Date: 12/26/2013 16:35 CDT Source: [facility] Document Id: [id number] CDT!3 Miscellgustabo - Lulu Richardson R.N. - [...] RICHARDSON RN - 12/26/2013 16:55 CDT Source: [employer] Document Id: [id number] CDT!17 Miscellaneous - Lulu Richardson, R.N. - [...] RICHARDSON RN - 12/26/2013 16:53 CDT Source: [employer] Document Id: [id number] CDT!17 documented in this encounter Plan of [...] (ABNORMAL) Automated Differential (12/28/2013 7:50 AM CDT) [facility] Method Time Signature Absolute 12.86 (H) 1.70 [...] Erythrocytes 3.78 (L) 3.90 - POWERCHART 5.03 [id number] HX RDW 12.8 11.9 - POWERCHART 15.5 [...] POWERCHART MMOLL eGFR Black/ >60 >=60 POWERCHART Sudanese [id number] 2 HXeGFR (MDRD) >60 >=60 POWERCHART [id number] 2 Comment: Results are in mL/min/1.73m CKD [...] Erythrocytes 3.81 (L) 3.90 - POWERCHART 5.03 [id number] HX RDW 12.7 11.9 - POWERCHART 15.5 [...] POWERCHART GDL eGFR Black/ >60 >=60 POWERCHART [place] [id number] 2 HXeGFR (MDRD) >60 >=60 POWERCHART [id number] 2 Comment: Results are in mL/min/1.73m CKD [...] A POS POWERCHART Retype Comment: 12/27/2013 12:25 [id number] A [place] draw for an ABO/Rh [...] BANK TEST ORDERABL ES Performing Organization Address City/[facility] Phon e Number POWERCHART (ABNORMAL) Automated [...] M.D. LAB BLOOD ADD-ON Performing Organization Address City/[facility] Phon e Number POWERCHART (ABNORMAL) CBC with Differential (12/26/2013 3:40 PM CDT) Analysis Performed At Patho logist Time Signature Hematocrit 37.1 34.9 - POWERCHART 44.5 Hemoglobin 12.8 12.0 - POWERCHART 15.5 GDL MCV 90.7 82.0 - POWERCHART 98.0 FL Platelet Count 256 150 - 450 POWERCHART X109L Erythrocytes 4.09 3.90 - POWERCHART 5.03 [id number] HX RDW 12.8 11.9 - POWERCHART 15.5 Leukocytes 12.4 (H) 3.5 - 10.5 POWERCHART [id number] Specimen (Source) Anatomical Collection Method Collection Time Re ceived Time Location / / Volume Laterality Blood 12/26/2013 3:40 PM CDT Carlee Madrid M.D. LAB BLOOD ADD-ON Performing Organization Address City/State/ZIP Code Phon e Number POWERCHART (ABNORMAL) CMP (Comprehensive Metabolic Panel) (12/26/2013 3:40 PM CDT) [facility] Method Time Signature Chloride, S 100 98 [...] POWERCHART GDL eGFR Black/ >60 >=60 POWERCHART [place]ese [id number] 2 HXeGFR (MDRD) >60 >=60 POWERCHART [id number] 2 Comment: Results are in mL/min/1.73m CKD [...] POWERCHART ABSC GEL (12/26/2013 3:40 PM CDT) [facility] Method Time Signature HX ABSC Gel Negative ABSC POWERCHART Specimen (Source) Anatomical Collection Method Collection Time Re ceived Time Location / / Volume Laterality 12/26/2013 3:40 PM CDT Carlee Madrid M.D. LAB HISTORICAL ORDERS Performing Organization Address City/[facility]/ZIP Code Phon e Number POWERCHART ABO/Rh (12/26/2013 3:40 PM CDT) P athologist Signature ABORh Interp A POS POWERCHART Specimen (Source) Anatomical Collection Method Collection Time Re ceived Time Location / / Volume Laterality 12/26/2013 3:40 PM CDT Carlee Madrid M.D. LAB BLOOD BANK TEST ORDERABL ES Performing Organization Address [facility]/ZIP Code Phon e Number POWERCHART documented in this encounter Visit Diagnoses Not on filedocumented in this encounter
--- OUTSIDE RECORDS SUMMARY | 2022-07-06 10:28 | XMS_ITS | Encounter Summary ---
:1995 Author Organization [facility] Address [address] [place] [address] Care Team Providers Name Role Phone Unavailable Primary Care Provider Unavailable Encounter Details Date Type Department Care Team Description 04/29/2014 Hospital Encounter HX [facility] Stephanie Ge M.D. [...] How often do you attend orthodoxy or oriental orthodox Never 10/23/2020 services? 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 - 04/29/2014 10:49 AM CDT [id number] Dhiraj is here for a pre-employment physical. She is going to be working here in [place]. The completed form will be scanned into her EMR. I see no problems with her employment here. Stephanie Ge M.D./antonia Electronically Signed By: STEPHANIE GE MD On: 04/29/2014 01:34 PM Source: [facility] MHSDOLBEYNONRADSYS Document Id: [id number] documented in this encounter Miscellaneous Notes Miscellaneous - Stephanie Ge M.D. - 04/29/2014 11:59 AM CDT Ambulatory Patient Summary [address] [place] [phone] Visit Information Name: DHIRAJ LANDA [facility] Number: [id number] Current Date: 04/29/2014 11:59:11 [...] nasal (Flonase 0.05 mg/inh nasal spray) 2 [place](s), Nasal, two times a day fluticasone-salmeterol (Advair [...] Appointments Date Time Location Provider 05/01/2014 13:45 [facility] CASH SPECIALIST [facility] Nurse Attention: Contact your local Clinic if further appointment detail needed. Your Goals/Additional instructions: Source: [facility] POWERCHART Document Id: [id number] Miscellaneous - Stephanie Ge M.D. - 04/29/2014 11:59 AM CDT Ambulatory Discharge Medication List [address] [phone] Visit Information Name: DHIRAJ LANDA [facility] Number: [id number] Visit Date: 04/29/2014 11:59:09 [...] nasal (Flonase 0.05 mg/inh nasal spray) 2 [place](s), Nasal, two times a day fluticasone-salmeterol (Advair [...] in case of emergency. Electronically Signed By: STEPHNAIE GE MD Signed On:29-APR-2014 11:58:51 Additional Information: Source: [facility] POWERCHART Document Id: [id number] Miscellaneous - Consuelo Dia L.P.N. 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 Temperature Core : 36.3 DegC(Converted to: [...] Information Given By : Patient Languages : Lithuanian Is Patient Female and 13-50 no hysterectomy : Yes Status : Patient denies Are you ? : No CONSUELO DIA TELESALES CONSULTANT - 04/29/2014 11:08 CDT Subjective Pain Symptoms : No LAWSONCONSUELO WILLARD Dusty [place] - 04/29/2014 11:08 CDT Dependent Habits Tobacco Use/Currently Using : No Exposure to Tobacco Smoke : Care provider denies smoking in home, Other: former smoker Smoking Status : Never smoker CONSUELO DIA Dusty [facility] - 04/29/2014 11:08 CDT Tobacco Use Grid Last Use : never LAWSONMONTSE CONSUELO Montano [facility] - 04/29/2014 11:08 CDT Caffeine Use Grid Caffeine Use : Current Type : Soft drinks Frequency : Occasionally LAWSONRADHASIN CONSUELO Dusty [facility] - 04/29/2014 11:08 CDT Recreational Drug Use Grid Drug Use : None LAWSONRADHACONSUELO VOGT [facility] - 04/29/2014 11:08 CDT [facility] Document Id: [id number] CDT!42 documented in this encounter Plan of [...] Results Urine Microscopic (04/29/2014 11:53 AM CDT) [facility] gist Method Time Signature HXUR WBC. [...] (ABNORMAL) Urinalysis, Routine (04/29/2014 11:53 AM CDT) [facility] gist Method Time Signature Source Clean Void POWERCHART Urine HXUr Color Yellow POWERCHART Clarity Clear POWERCHART Glucose Negative MGDL POWERCHART HXBILIRUBIN Negative POWERCHART Ketones, QL(U) Negative MGDL POWERCHART Specific 1.020 POWERCHART [place], POCT, U pH, POCT, Urine 6.5 POWERCHART [...]
--- OUTSIDE RECORDS SUMMARY | 2022-07-06 10:28 | XMS_ITS | Encounter Summary ---
:1995 Author Organization [facility] Address [address] [place] [address] Care Team Providers Name Role Phone Unavailable Primary Care Provider Unavailable Encounter Details Date Type Department Care Team Description 12/26/2013 Hospital Encounter [facility]X [facility] Lory Saldaña M.D. Social History Tobacco [...] How often do you attend denominational or latter day Never 10/23/2020 services? 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 Last [...] 12/26/2013 1:23 PM CD T Growth Chart: [facility] (Girls, 2-20 Years) documented in this [...] 12/26/2013 5:29 PM CDT Ambulatory Patient Summary [facility] [address], [address] [place], [place] [phone] Visit Information Name: DHIRAJ LANDA PAWEL [facility] Number: [id number] Current Date: 12/26/2013 17:29:34 [...] nasal (Flonase 0.05 mg/inh nasal spray) 2 [place](s), Nasal, two times a day fluticasone-salmeterol (Advair [...] Date Time Location Reason Provider 01/02/2014 13:15 [facility] 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 Your Goals/Additional instructions: Source: [facility] POWERCHART Document Id: [id number] Miscellaneous - Lory Villa M.D. - 12/26/2013 5:29 PM CDT Ambulatory Discharge Medication List [facility] [address], [address] [place], [place] [phone] Visit Information Name: DHIRAJ LANDA [facility] Number: [id number] Visit Date: 12/26/2013 17:29:33 [...] nasal (Flonase 0.05 mg/inh nasal spray) 2 [place](s), Nasal, two times a day fluticasone-salmeterol (Advair [...] MD Signed On:26-DEC-2013 17:29:28 Additional Information: Source: [facility] POWERCHART Document Id: [id number] Miscellaneous - Joy Johnson L.P.N. 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
--- OUTSIDE RECORDS SUMMARY | 2022-07-06 10:29 | XMS_ITS | Encounter Summary ---
:1995 Author Organization [facility] Address [address] [place] [address] Care Team Providers Name Role Phone Unavailable [...] often do you attend latter day or methodist Never 10/23/2020 services? 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
--- OUTSIDE RECORDS SUMMARY | 2022-07-06 10:29 | XMS_ITS | Encounter Summary ---
:1995 Author Organization [facility] Address [address] [place] [address] Care Team Providers Name Role Phone Unavailable Primary Care Provider Unavailable Encounter Details Date Type Department Care Team Description 08/29/2013 Hospital Encounter [facility]X [facility] Bridget Saldaña M.D. Social History Tobacco [...] often do you attend oriental orthodox or oriental orthodox Never 10/23/2020 services? 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 - 08/29/2013 9:45 AM CST [id number] No concerns. JF Source[facility] Document Id: [id number] Electronically signed by Conversion, [facility] Mold Maintenance Technician [id number] at 01/09/2017 2:31 PM CDT Bridget Harrington M.D. - 08/29/2013 9:45 AM CST [id number] No complaints. S/p suzette scan. Awaiting us results. Source: [facility] Document Id: [id number] Electronically signed by Conversion, [facility] Mold Maintenance Technician [id number] at 01/09/2017 2:31 PM CDT documented in this encounter Plan of Treatment Not on filedocumented as of this encounter Visit Diagnoses Not on filedocumented in this encounter
--- OUTSIDE RECORDS SUMMARY | 2022-07-06 10:29 | XMS_ITS | Encounter Summary ---
:1995 Author Organization [facility] Address [address] [place] [address] Care Team Providers Name Role Phone Unavailable Primary Care Provider Unavailable Encounter Details Date Type Department Care Team Description 07/02/2013 Hospital Encounter [facility] Bridget Saldaña M.D. Social History [...] How often do you attend scientology or nondenominational Never 10/23/2020 services? 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 BR Source: [facility] Document Id: [id number] Bridget Harrington M.D. - 07/02/2013 2:30 PM CST [id number] Discussed quad/CF, SMA and fragile X testing. Pt undecided will discuss with insurance. Source: [facility] Document Id: [id number] Electronically signed by Conversion, [facility] Regulatory Affairs Analyst [id number] at 01/10/2017 9:11 PM CDT documented in this encounter Plan of Treatment Not on filedocumented as of this encounter Visit Diagnoses Not on filedocumented in this encounter
--- OUTSIDE RECORDS SUMMARY | 2022-07-06 10:29 | XMS_ITS | Encounter Summary ---
:[address] [facility] Address [address] [place] [address] Care Team Providers Name Role Phone Unavailable [...] How often do you attend yarsanism or judaism Never 10/23/2020 services? 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
--- OUTSIDE RECORDS SUMMARY | 2022-07-06 10:29 | XMS_ITS | Encounter Summary ---
:1995 Author Organization [facility] Address [address] [place] [address] Care Team Providers Name Role Phone Unavailable Primary Care Provider Unavailable Encounter Details Date Type Department Care Team Description 12/05/2013 Hospital Encounter [facility] Lory Saldaña M.D. Social History Tobacco [...] How often do you attend synagogue or gnosticism Never 10/23/2020 services? 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 Last Filed [...] 12/05/2013 1:24 PM CD T Growth Chart: [facility] (Girls, 2-20 Years) documented in this [...] 12/05/2013 7:33 PM CDT Ambulatory Patient Summary [facility] [address], [address] [place], [place] [phone] Visit Information Name: DHIRAJ LANDA PAWEL [facility] Number: [id number] Current Date: 12/05/2013 19:33:04 Physicians [...] nasal (Flonase 0.05 mg/inh nasal spray) 2 [place](s), Nasal, two times a day montelukast (montelukast [...] Date Time Location Reason Provider 12/18/2013 15:20 [facility] STRIPPER LATEX 36 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 Your Goals/Additional instructions: Source: [facility] POWERCHART Document Id: [id number] Miscellaneous - Lory Villa M.D. - 12/05/2013 7:33 PM CDT Ambulatory Discharge Medication List [facility] [address], [address] [place], [place] [phone] Visit Information Name: DHIRAJ LANDA [facility] Number: [id number] Visit Date: 12/05/2013 19:33:02 Attending [...] nasal (Flonase 0.05 mg/inh nasal spray) 2 [place](s), Nasal, two times a day montelukast (montelukast [...] MD Signed On:05-DEC-2013 19:32:57 Additional Information: [facility] Document Id: [id number] Miscellaneous - Joy Johnson L.P.N. - 12/05/2013 1:24 PM CDT Adult Geospatial Specialist Intake/History Adult Geospatial Specialist Intake/History Entered On: 12/05/2013 13:27 CDT Performed [...] Information Given By : Patient Languages : Bahraini JOY JOHNSON LPN - 12/05/2013 13:24 CDT [...] JOHNSON LPN - 12/05/2013 13:24 CDT [facility] Document Id: [id number] CDT!30 documented in this encounter Plan of Treatment Not on filedocumented as of this encounter Visit Diagnoses Not on filedocumented in this encounter
--- OUTSIDE RECORDS SUMMARY | 2022-07-06 10:29 | XMS_ITS | Encounter Summary ---
:1995 Author Organization [facility] Address [address] [place] [address] Care Team Providers Name Role Phone Unavailable Primary Care Provider Unavailable Encounter Details Date Type Department Care Team Description 06/04/2013 Hospital Encounter HX NO MAPPING Iva Guerrero APRN, C.N.P. [address] [place], [place] [phone] (Wo rk) Social History [...] How often do you attend orthodoxy or hindu Never 10/23/2020 services? 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
--- OUTSIDE RECORDS SUMMARY | 2022-07-06 10:29 | XMS_ITS | Encounter Summary ---
:1995 Author Organization [facility] Address [address] [place] [address] Care Team Providers Name Role Phone Unavailable Primary Care Provider Unavailable Encounter Details Date Type Department Care Team Description 12/21/2013 Hospital Encounter [facility] Dusty Dodd D.O. [address] [place] [address] (Wo rk) Social History Tobacco Use Types [...] How often do you attend restorationist or mu-ism Never 10/23/2020 services? 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 (Girls, 2-20 Years) documented in this encounter [...] 12/21/2013 2:06 PM CDT Ambulatory Patient Summary [facility] [address], [address] [place], [place] [phone] Visit Information Name: DHIRAJ LANDA [facility] Number: [id number] Current Date: 12/21/2013 14:06:34 Physicians [...] nasal (Flonase 0.05 mg/inh nasal spray) 2 [place](s), Nasal, two times a day fluticasone-salmeterol (Advair [...] appointment detail needed. Your Goals/Additional instructions: Source: [facility] POWERCHART Document Id: [id number] Miscellaneous - Mk Rock D.O. - 12/21/2013 2:06 PM CDT Ambulatory Discharge Medication List [facility] [address], [address] [place], [place] [phone] Visit Information Name: DHIRAJ LANDA [facility] Number: [id number] Visit Date: 12/21/2013 14:06:32 Attending [...] nasal (Flonase 0.05 mg/inh nasal spray) 2 [place](s), Nasal, two times a day fluticasone-salmeterol (Advair [...] MD Signed On:21-DEC-2013 14:06:24 Additional Information: Source: [facility] POWERCHART Document Id: [id number] Miscellgustabo - Ana Dhillon L.P.NGonzalo - 12/21/2013 1:40 PM CDT Adult Die Maintenance Technician Intake/History Adult Die Maintenance Technician Intake/History Entered On: 12/21/2013 13:42 CDT Performed [...] Information Given By : Patient Languages : Serbian ANA KEYES POLITICAL RESEARCH SCIENTIST - 12/21/2013 13:40 CDT Subjective Pain Symptoms [...] KEYES LPN - 12/21/2013 13:40 CDT Source: [facility] [employer] Document Id: [id number] CDT!29 Miscellaneous - Nena Ocampo LGonzaloP.NGonzalo - 12/20/2013 4:11 PM CDT Patient returned call on Lab update From: NENA OCAMPO LPN ( Obstetrics/Gynecology Nurse) Sent: 12/20/2013 16:11:52 CDT Subject: Patient returned call on Lab update Patient returned call on Lab update. Notified of positive Group B strep. Source: [facility] POWERCHART Document Id: [id number] Electronically signed by Conversion, [facility] Optical Laboratory Technician [id number] at 01/11/2017 4:24 AM CDT documented in this encounter Plan of Treatment Not on filedocumented as of this encounter Visit Diagnoses Not on filedocumented in this encounter
--- OUTSIDE RECORDS SUMMARY | 2022-07-06 10:29 | XMS_ITS | Encounter Summary ---
:1995 Author Organization [facility] Address [address] [place] [address] Care Team Providers Name Role Phone Unavailable Primary Care Provider Unavailable Encounter Details Date Type Department Care Team Description 10/24/2013 Hospital Encounter HX NO MAPPING Iva Guerrero APRN, C.N.P. [address] [place], [place] [phone] (Wo rk) Social History [...] How often do you attend temple or roman catholic Never 10/23/2020 services? 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
--- OUTSIDE RECORDS SUMMARY | 2022-07-06 10:29 | XMS_ITS | Encounter Summary ---
:1995 Author Organization [facility] Address [address] [place] [address] Care Team Providers Name Role Phone Unavailable Primary Care Provider Unavailable Encounter Details Date Type Department Care Team Description 10/24/2013 Hospital Encounter [facility] XRAY Provider, Histori hernandez Social History [...] How often do you attend scientologist or gnosticism Never 10/23/2020 services? 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 - 10/24/2013 1:15 PM CDT [id number] Quick Note: Discussed at visit. Source: [facility] Document Id: [id number] Electronically signed by Stuart, [facility] Felt Hat Mellowing Machine Operator [id number] at 01/09/2017 4:48 PM CDT documented in this encounter Plan of Treatment Not on filedocumented as of this encounter Visit Diagnoses Not on filedocumented in this encounter
--- OUTSIDE RECORDS SUMMARY | 2022-07-06 10:29 | XMS_ITS | Encounter Summary ---
:1995 Author Organization [facility] Address [address] [place] [address] Care Team Providers Name Role Phone Unavailable Primary Care Provider Unavailable Encounter Details Date Type Department Care Team Description 06/01/2013 Hospital Encounter [facility] Shivam Keith A, R.N. [address] [place], [place] [phone] Social History Tobacco Use [...] How often do you attend anabaptist or taoism Never 10/23/2020 services? 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 - 06/01/2013 12:00 AM CDT [id number] Situation/What is the patients concern/need: Patient update/inquiry [...] Ceja. Best number(s) to reach patient: Source: [facility] RWHXTRANSXRTFSYS Document Id: [id number] Electronically signed by Conversion, [facility] Manager Oncology [id number] at 01/10/2017 8:48 PM CDT documented in this encounter Plan of Treatment Not on filedocumented as of this encounter Visit Diagnoses Not on filedocumented in this encounter
--- OUTSIDE RECORDS SUMMARY | 2022-07-06 10:29 | XMS_ITS | Encounter Summary ---
:1995 Author Organization [facility] Address [address] [place] [address] Care Team Providers Name Role Phone Unavailable Primary Care Provider Unavailable Encounter Details Date Type Department Care Team Description 10/24/2013 Hospital Encounter HX NO MAPPING Iva Guerrero APRN, C.N.P. [address] [place], [place] [phone] (Wo rk) Social History [...] How often do you attend hoahaoism or orthodoxy Never 10/23/2020 services? 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
--- OUTSIDE RECORDS SUMMARY | 2022-07-06 10:29 | XMS_ITS | Encounter Summary ---
:1995 Author Organization [facility] Address [address] [place] [address] Care Team Providers Name Role Phone Unavailable Primary Care Provider Unavailable Encounter Details Date Type Department Care Team Description 11/07/2013 Hospital Encounter HX [facility] Bridget Saldaña M.D. Social History Tobacco Use [...] How often do you attend congregational or yazdanism Never 10/23/2020 services? 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 - 11/07/2013 1:15 PM CDT [id number] No concerns. JF Source[facility] Document Id: [id number] Bridget Harrington M.D. - 11/07/2013 1:15 PM CDT [id number] kick counts reviewed. Patient reports >10 movements per hour. Source: [facility] Document Id: [id number] documented in this encounter Plan of Treatment Not on filedocumented as of this encounter Visit Diagnoses Not on filedocumented in this encounter
--- OUTSIDE RECORDS SUMMARY | 2022-07-06 10:29 | XMS_ITS | Encounter Summary ---
:1995 Author Organization [facility] Address [address] [place] [address] Care Team Providers Name Role Phone Unavailable Primary Care Provider Unavailable Encounter Details Date Type Department Care Team Description 08/29/2013 Hospital Encounter [facility] XRAY Provider, Histori hernandez Social History [...] How often do you attend shinto or baptism Never 10/23/2020 services? 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
--- OUTSIDE RECORDS SUMMARY | 2022-07-06 10:29 | XMS_ITS | Encounter Summary ---
:1995 Author Organization [facility] Address [address] [place] [address] Care Team Providers Name Role Phone Unavailable Primary Care Provider Unavailable Encounter Details Date Type Department Care Team Description 06/04/2013 Hospital Encounter [facility] XRAY Provider, Histori hernandez Social History [...] How often do you attend christianity or religion Never 10/23/2020 services? 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
--- OUTSIDE RECORDS SUMMARY | 2022-07-06 10:29 | XMS_ITS | Encounter Summary ---
:1995 Author Organization [facility] Address [address] [place] [address] Care Team Providers Name Role Phone Unavailable Primary Care Provider Unavailable Encounter Details Date Type Department Care Team Description 08/02/2013 Hospital Encounter HX [facility] Bridget Saldaña M.D. Social History Tobacco [...] How often do you attend holiness or latter-day Never 10/23/2020 services? 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 - 08/02/2013 3:30 PM CST [id number] C/o low backache. Has resolved now. No vaginal bleeding or leaking of fluid. TLM [facility] Document Id: [id number] Electronically signed by Conversion, [facility] Certified Pharmacist Assistant [id number] at 01/10/2017 3:03 PM CDT Bridget Harrington M.D. - 08/02/2013 3:30 PM CST [id number] Declines genetic testing. C/o back pain though entirely resolved. Will check ucx. Source[facility] Document Id: [id number] Electronically signed by Conversion, [facility] Certified Pharmacist Assistant [id number] at 01/10/2017 3:03 PM CDT documented in this encounter Miscellaneous Notes Miscellaneous - Bridget Harrington M.D. - 08/02/2013 3:30 PM CST [id number] Carly Joseph [id number] [address] [facility] [address] August 09, 2013 Dear Ms. Joseph: I am writing to inform you the results of the laboratory tests you had done during your recent visitto the clinic. Your results included : urine culture was NORMAL. It was a pleasure to see you in the clinic. If you have any further questions or problems, please contact our office at [phone]. Sincerely, Dr. Bridget Harrington MS Dept. [employer] [facility] [place] Source: [facility] Document Id: [id number] Electronically signed by Conversion, [facility] Certified Pharmacist Assistant [id number] at 01/10/2017 3:03 PM CDT documented in this encounter Plan of Treatment Not on filedocumented as of this encounter Procedures Procedure Name Priority Date/Time Associated Comments Diagnosis HX CULTURE REPORT Routine 08/04/2013 9:05 AM Resu lts for this STATUS LOADING MACHINE TOOL SETTER procedure are i n the results section. HX SN - SPEC - Routine 08/04/2013 9:05 AM Results for this DESCRIPTION LOADING MACHINE TOOL SETTER procedure are i n the results section. HX CULTURE Routine 08/04/2013 9:05 AM Results f or this LOADING MACHINE TOOL SETTER procedure are i n the results section. documented in this encounter Results HX CULTURE REPORT STATUS (08/04/2013 9:05 AM LOADING MACHINE TOOL SETTER) Analysis Performed At Patho logist Time Signature CULTURE REPORT FINAL [facility] STATUS 08/04/2013 [facility] LAB Specimen (Source) Anatomical Collection Method Collection Time Re ceived Time Location / / Volume Laterality 08/04/2013 9:05 AM LOADING MACHINE TOOL SETTER Historical Provider LAB HISTORICAL ORDERS Performing Organization Address City/State/ZIP Code Phon e Number [facility] LAB HX CULTURE (08/04/2013 9:05 AM LOADING MACHINE TOOL SETTER) Analysis Performed At Patho logist Time Signature Bacterial No growth [facility] Culture, HEALTH SYSTEM Aerobic LAB Specimen (Source) Anatomical Collection Method Collection Time Re ceived Time Location / / Volume Laterality 08/04/2013 9:05 AM LOADING MACHINE TOOL SETTER Historical Provider LAB HISTORICAL ORDERS Performing Organization Address City/State/ZIP Code Phon e Number [facility] HX SN - SPEC - DESCRIPTION (08/04/2013 9:05 AM LOADING MACHINE TOOL SETTER) Patholo gist Method Time Signature HXSPECIMAN Midstream [facility] DESCRIPTION Urine [facility] LAB Specimen (Source) Anatomical Collection Method Collection Time Re ceived Time Location / / Volume Laterality 08/04/2013 9:05 AM LOADING MACHINE TOOL SETTER Historical Provider LAB HISTORICAL ORDERS Performing Organization Address City/State/ZIP Code Phon e Number [facility] LAB documented in this encounter Visit Diagnoses Not on filedocumented in this encounter
--- OUTSIDE RECORDS SUMMARY | 2022-07-06 10:29 | XMS_ITS | Encounter Summary ---
:1995 Author Organization [facility] Address [address] [place] [address] Care Team Providers Name Role Phone Unavailable Primary Care Provider Unavailable Encounter Details Date Type Department Care Team Description 06/06/2013 Hospital Encounter HX [facility] Iva Sam, SHAYE N, C.N.P. [address] [place], [place] [phone] (Wo rk) Social History [...] How often do you attend anabaptist or catholic Never 10/23/2020 services? 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 - 06/06/2013 3:50 PM CDT [id number] Body mass index is 26.61 kg/(me, dates based on early sono. Flu shot today. Nausea but no vomiting. Has parents insurance so she will also apply for PR. TANISHA Sexual History not in a relationship with Jason RITCHIE S: Carly is a 18 year old y/o, G 1, P 0. She is 8w4d weeks today. She lives in [place] with parents. Carly has been feeling nauseated. 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 Family is close by and supportive. [facility]. Assessment: vitamins: Is taking them. Diet: Regular diet, no history of an eating disorder. Adequate calcium intake discussed. She has notbeen referred to meet with the crisis nurse. Transportation issues: nnoe Safe relationship: She has no history of abusive relationhips. Financial Concerns: money is tight Insurance: [facility], will apply for PR Social Service/Public Health: WIC/[facility] She is not [...] COUNSELING REGARDING THESE ISSUES. Electronically signed by [facility], [facility] Real Estate Photographer [id number] at 01/10/2017 8:48 PM CDT Conversion, Historical Provider Ser - 06/06/2013 3:50 PM CDT [id number] Carly Joseph is a 18 year old female. Patient received: FLUZONE INJECTION Patient Questionaire: Did you receive a flu vaccine last year?0 I have a fever or feel ill today? No I have an allergy to eggs, gelatin or thimerosal? No I have had a reaction to the flu vaccine the past? No I have had Guillain-Denver syndrome? No I have a Latex Allergy? No VIS information given Source: [facility] RWHXTRANSXRTFSYS Document Id: [id number] documented in this encounter Miscellaneous Notes Miscellaneous - Iva Guerrero C.N.P., R.N. - 06/06/2013 3:50 PM CDT [id number] Caryl Joseph [id number] [address] [facility] [address] June 11, 2013 MR#: [id number] Dear Carly, I am happy to inform [...] free to give me a call at [phone]. Sincerely, Iva Guerrero RN, CABLE SWAGER project inspector [facility] [place] Source: [facility] Document Id: [id number] Electronically signed by Conversion, [facility] Real Estate Photographer [id number] at 01/10/2017 8:48 PM CDT documented in [...] P athologist Signature HBs Antigen, S Negative [facility] LAB Specimen (Source) Anatomical Collection Method Collection Time Re ceived Time Location / / Volume Laterality 06/08/2013 11:46 AM CDT Historical Provider LAB MICROBIOLOGY - BLOOD ORD ERABLES Performing Organization Address City/State/ZIP Code Phon e Number [facility] HIV-1/-2 Ag and Ab Screen (06/08/2013 11:46 AM CDT) P athologist Signature HX Hiv-1/-2 Ab Negative [facility] Screen, S [facility] LAB Specimen (Source) Anatomical Collection Method Collection Time Re ceived Time Location / / Volume Laterality 06/08/2013 11:46 AM CDT Historical Provider LAB MICROBIOLOGY - BLOOD ORD ERABLES Performing Organization Address City/State/ZIP Code Phon e Number [facility] HCV Ab w/Reflex to HCV PCR, S (06/08/2013 11:46 AM CDT) P athologist Signature HXHep C Ab Negative [facility] Specimen (Source) Anatomical Collection Method Collection Time Re ceived Time Location / / Volume Laterality 06/08/2013 11:46 AM CDT Historical Provider LAB MICROBIOLOGY - BLOOD ORD ERABLES Performing Organization Address City/State/ZIP Code Phon e Number [facility] Rubella Antibodies, IgG (06/08/2013 10:05 AM CDT) P athologist Signature HX Rubella 92 IUML [facility] IgG-[facility] LAB Specimen (Source) Anatomical Collection Method Collection Time Re ceived Time Location / / Volume Laterality 06/08/2013 10:05 AM CDT Narrative [facility] - 10/12/19 14 11:11 PM SUPERVISOR SCENIC ARTS Interpretation: ??Positive, Immune Historical Provider LAB MICROBIOLOGY - BLOOD ORD ERABLES Performing Organization Address City/State/ZIP Code Phon e Number [facility] Syphilis IgG Antibody with Reflex (06/08/2013 10:04 AM CDT) P athologist Signature Treponema Negative [facility] pallidum Ab by [facility] LAB Specimen (Source) Anatomical Collection Method Collection Time Re ceived Time Location / / Volume Laterality 06/08/2013 10:04 AM CDT Historical Provider LAB BLOOD ADD-ON Performing Organization Address City/State/ZIP Code Phon e Number [facility] HX CULTURE REPORT STATUS (06/08/2013 8:04 AM CDT) Analysis Performed At Patho logist Time Signature CULTURE REPORT FINAL [facility] STATUS 06/08/2013 [facility] LAB Specimen (Source) Anatomical Collection Method Collection Time Re ceived Time Location / / Volume Laterality 06/08/2013 8:04 AM CDT Historical Provider LAB HISTORICAL ORDERS Performing Organization Address City/State/ZIP Code Phon e Number [facility] HX CULTURE (06/08/2013 8:04 AM CDT) Analysis Performed At Patho logist Time Signature Bacterial No growth [facility] Culture, [facility] Aerobic LAB Specimen (Source) Anatomical Collection Method Collection Time Re ceived Time Location / / Volume Laterality 06/08/2013 8:04 AM CDT Historical Provider LAB HISTORICAL ORDERS Performing Organization Address City/State/ZIP Code Phon e Number [facility] HX SN - SPEC - DESCRIPTION (06/08/2013 8:04 AM CDT) Patholo gist Method Time Signature HXSPECIMAN Midstream [facility] DESCRIPTION Urine [facility] LAB Specimen (Source) Anatomical Collection Method Collection Time Re ceived Time Location / / Volume Laterality 06/08/2013 8:04 AM CDT Historical Provider LAB HISTORICAL ORDERS Performing Organization Address City/State/ZIP Code Phon e Number [facility] Platelet Count (06/06/2013 5:16 PM CDT) P athologist Signature Platelet Count 214 109L [facility] Specimen (Source) Anatomical Collection Method Collection Time Re ceived Time Location / / Volume Laterality 06/06/2013 5:16 PM CDT Historical Provider LAB BLOOD ADD-ON Performing Organization Address City/State/ZIP Code Phon e Number [facility] RBC SYSMEX (06/06/2013 5:16 PM CDT) P athologist Signature HX RDW 12.8 [facility] Specimen (Source) Anatomical Collection Method Collection Time Re ceived Time Location / / Volume Laterality 06/06/2013 5:16 PM CDT Historical Provider LAB URINE ORDERABLES Performing Organization Address City/State/ZIP Code Phon e Number [facility] RBC SYSMEX (06/06/2013 5:16 PM CDT) P athologist Signature MCHC 35.0 GMDL [facility] Specimen (Source) Anatomical Collection Method Collection Time Re ceived Time Location / / Volume Laterality 06/06/2013 5:16 PM CDT Historical Provider LAB URINE ORDERABLES Performing Organization Address City/State/ZIP Code Phon e Number [facility] RBC SYSMEX (06/06/2013 5:16 PM CDT) P athologist Signature MCH 30.6 PG [facility] Specimen (Source) Anatomical Collection Method Collection Time Re ceived Time Location / / Volume Laterality 06/06/2013 5:16 PM CDT Historical Provider LAB URINE ORDERABLES Performing Organization Address City/State/ZIP Code Phon e Number [facility] Automated Differential (06/06/2013 5:16 PM CDT) P athologist Signature MCV 88 FL [facility] LAB Specimen (Source) Anatomical Collection Method Collection Time Re ceived Time Location / / Volume Laterality 06/06/2013 5:16 PM CDT Historical Provider LAB BLOOD ADD-ON Performing Organization Address City/State/ZIP Code Phon e Number [facility] Hematocrit (06/06/2013 5:16 PM CDT) P athologist Signature Hematocrit 36.6 [facility] Specimen (Source) Anatomical Collection Method Collection Time Re ceived Time Location / / Volume Laterality 06/06/2013 5:16 PM CDT Historical Provider LAB BLOOD ADD-ON Performing Organization Address City/State/ZIP Code Phon e Number [facility] Hemoglobin (06/06/2013 5:16 PM CDT) P athologist Signature Hemoglobin 12.8 GMDL [facility] Specimen (Source) Anatomical Collection Method Collection Time Re ceived Time Location / / Volume Laterality 06/06/2013 5:16 PM CDT Historical Provider LAB BLOOD ADD-ON Performing Organization Address City/State/ZIP Code Phon e Number [facility] RBC SYSMEX (06/06/2013 5:16 PM CDT) P athologist Signature Erythrocytes 4.18 X10 [facility] Specimen (Source) Anatomical Collection Method Collection Time Re ceived Time Location / / Volume Laterality 06/06/2013 5:16 PM CDT Historical Provider LAB URINE ORDERABLES Performing Organization Address City/State/ZIP Code Phon e Number [facility] CBC with Differential (06/06/2013 5:16 PM CDT) P athologist Signature Leukocytes 8.2 109L [facility] Specimen (Source) Anatomical Collection Method Collection Time Re ceived Time Location / / Volume Laterality 06/06/2013 5:16 PM CDT Historical Provider LAB BLOOD ADD-ON Performing Organization Address City/State/ZIP Code Phon e Number [facility] HX AMORPHOUS CRYSTAL (06/06/2013 5:13 PM CDT) P athologist Signature HXAmorphous Many HPF [facility] Crystal [facility] LAB Specimen (Source) Anatomical Collection Method Collection Time Re ceived Time Location / / Volume Laterality 06/06/2013 5:13 PM CDT Historical Provider LAB HISTORICAL ORDERS Performing Organization Address City/State/ZIP Code Phon e Number [facility] HX MUCOUS THREADS (06/06/2013 5:13 PM CDT) P athologist Signature HX MUCOUS Present LPF [facility] Specimen (Source) Anatomical Collection Method Collection Time Re ceived Time Location / / Volume Laterality 06/06/2013 5:13 PM CDT Historical Provider LAB HISTORICAL ORDERS Performing Organization Address City/State/ZIP Code Phon e Number [facility] Urine Microscopic (06/06/2013 5:13 PM CDT) P athologist Signature HXUr WBC 0 HPF [facility] Specimen (Source) Anatomical Collection Method Collection Time Re ceived Time Location / / Volume Laterality 06/06/2013 5:13 PM CDT Historical Provider LAB URINE ORDERABLES Performing Organization Address City/State/ZIP Code Phon e Number [facility] Urine Microscopic (06/06/2013 5:13 PM CDT) P athologist Signature Red Blood Cell 0 HPF [facility] [place]ump, Urine [facility] LAB Specimen (Source) Anatomical Collection Method Collection Time Re ceived Time Location / / Volume Laterality 06/06/2013 5:13 PM CDT Historical Provider LAB URINE ORDERABLES Performing Organization Address City/State/ZIP Code Phon e Number [facility] HX SP SOURCE (06/06/2013 5:13 PM CDT) Patholo gist Method Time Signature HXSP Source Midstream [facility] Urine [facility] Specimen (Source) Anatomical Collection Method Collection Time Re ceived Time Location / / Volume Laterality 06/06/2013 5:13 PM CDT Historical Provider LAB HISTORICAL ORDERS Performing Organization Address City/State/ZIP Code Phon e Number [facility] Urinalysis, Routine (06/06/2013 5:13 PM CDT) P athologist Signature Leukocyte Negative [facility] Esterase [facility] Specimen (Source) Anatomical Collection Method Collection Time Re ceived Time Location / / Volume Laterality 06/06/2013 5:13 PM CDT Historical Provider LAB URINE ORDERABLES Performing Organization Address City/State/ZIP Code Phon e Number [facility] Urinalysis no Reflex (06/06/2013 5:13 PM CDT) P athologist Signature HXNITRITE Negative [facility] Specimen (Source) Anatomical Collection Method Collection Time Re ceived Time Location / / Volume Laterality 06/06/2013 5:13 PM CDT Historical Provider LAB URINE ORDERABLES Performing Organization Address City/State/ZIP Code Phon e Number [facility] Urobilinogen, QL, Urine (06/06/2013 5:13 PM CDT) P athologist Signature Urobilinogen Normal MGDL [facility] Specimen (Source) Anatomical Collection Method Collection Time Re ceived Time Location / / Volume Laterality 06/06/2013 5:13 PM CDT Historical Provider LAB URINE ORDERABLES Performing Organization Address City/State/ZIP Code Phon e Number [facility] HX UR PROTEIN ALBUMIN (06/06/2013 5:13 PM CDT) P athologist Signature Hx Ur Protein Negative MGDL [facility] LAB Specimen (Source) Anatomical Collection Method Collection Time Re ceived Time Location / / Volume Laterality 06/06/2013 5:13 PM CDT Historical Provider LAB HISTORICAL ORDERS Performing Organization Address City/State/ZIP Code Phon e Number [facility] pH, Urine (06/06/2013 5:13 PM CDT) P athologist Signature pH, POCT, Urine 6.5 PHUNITS [facility] Specimen (Source) Anatomical Collection Method Collection Time Re ceived Time Location / / Volume Laterality 06/06/2013 5:13 PM CDT Historical Provider LAB URINE ORDERABLES Performing Organization Address City/State/ZIP Code Phon e Number [facility] Urinalysis, Routine (06/06/2013 5:13 PM CDT) P athologist Signature HXBLOOD Negative [facility] Specimen (Source) Anatomical Collection Method Collection Time Re ceived Time Location / / Volume Laterality 06/06/2013 5:13 PM CDT Historical Provider LAB URINE ORDERABLES Performing Organization Address City/State/ZIP Code Phon e Number [facility] Urinalysis, Routine (06/06/2013 5:13 PM CDT) P athologist Signature Specific 1.012 [facility] [place], [place], [facility] LAB Specimen (Source) Anatomical Collection Method Collection Time Re ceived Time Location / / Volume Laterality 06/06/2013 5:13 PM CDT Historical Provider LAB URINE ORDERABLES Performing Organization Address City/State/ZIP Code Phon e Number [facility] Ketones, Qual, Urine (06/06/2013 5:13 PM CDT) P athologist Signature Ketones, QL(U) Negative MGDL [facility] Specimen (Source) Anatomical Collection Method Collection Time Re ceived Time Location / / Volume Laterality 06/06/2013 5:13 PM CDT Historical Provider LAB URINE ORDERABLES Performing Organization Address City/State/ZIP Code Phon e Number [facility] Bilirubin, Urine (06/06/2013 5:13 PM CDT) P athologist Signature HXBILIRUBIN Negative [facility] Specimen (Source) Anatomical Collection Method Collection Time Re ceived Time Location / / Volume Laterality 06/06/2013 5:13 PM CDT Historical Provider LAB URINE ORDERABLES Performing Organization Address City/State/ZIP Code Phon e Number [facility] Urinalysis, Routine (06/06/2013 5:13 PM CDT) P athologist Signature Glucose Negative MGDL [facility] Specimen (Source) Anatomical Collection Method Collection Time Re ceived Time Location / / Volume Laterality 06/06/2013 5:13 PM CDT Historical Provider LAB URINE ORDERABLES Performing Organization Address City/State/ZIP Code Phon e Number [facility] Urinalysis, Routine (06/06/2013 5:13 PM CDT) P athologist Signature Appearance Cloudy [facility] Specimen (Source) Anatomical Collection Method Collection Time Re ceived Time Location / / Volume Laterality 06/06/2013 5:13 PM CDT Historical Provider LAB URINE ORDERABLES Performing Organization Address City/State/ZIP Code Phon e Number [facility] Urine Microscopic (06/06/2013 5:13 PM CDT) P athologist Signature HXUr Color Yellow [facility] Specimen (Source) Anatomical Collection Method Collection Time Re ceived Time Location / / Volume Laterality 06/06/2013 5:13 PM CDT Historical Provider LAB URINE ORDERABLES Performing Organization Address City/[facility]/ZIP Code Phon e Number [facility] documented in this encounter Visit Diagnoses Not on filedocumented in this encounter
--- OUTSIDE RECORDS SUMMARY | 2022-07-06 10:29 | XMS_ITS | Encounter Summary ---
:1995 Author Organization [facility] Address [address] [place] [address] Care Team Providers Name Role Phone Unavailable Primary Care Provider Unavailable Encounter Details Date Type Department Care Team Description 12/18/2013 Hospital Encounter HX [facility] Iva Sam, SHAYE N, C.N.P. [address] [place], [place] [phone] (Wo rk) Social History [...] How often do you attend alevism or congregation Never 10/23/2020 services? 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 - 12/20/2013 9:22 AM CDT Results Notification Document Contains Addenda Addendum by ANA KEYES LPN on 21 Dec 2013 16:07:01 CDT seen and notified at office visit today Addendum by JOY JOHNSON LPN on 20 Dec 2013 09:27:59 CDT left generic message for pt to call back. From: IVA GUERRERO CAR ATTENDANT Sent: 12/20/2013 09:22:16 CDT ! Show up: 12/20/2013 09:22:16 CDT Subject: Results Notification Actions: Notify patient of results Reminder Comments: please notify of positive results. Results: Date Result Type Ind Result Name MBO POS Strep B by PCR Source: [facility] POWERCHART Document Id: [id number] Miscellaneous - Ana Dhillon L.P.N. - 12/18/2013 3:32 PM CDT Adult Pulling Unit Floorhand Intake/History Adult Pulling Unit Floorhand Intake/History Entered On: 12/18/2013 15:33 CDT Performed [...] Given By : Patient Languages : Vietnamese ANA KEYES LPN - 12/18/2013 15:32 CDT Subjective Pain Symptoms : No ANA KEYES LPN - 12/18/2013 15:32 CDT Dependent Habits Tobacco Use/Currently Using : No Exposure to Tobacco Smoke : Care provider denies smoking in home, Other: former smoker Smoking Status : Former smoker ANA KEYES LPN - 12/18/2013 15:32 CDT Tobacco Use Grid Last Use : never ANA KEYES SHANK CARRIER - 12/18/2013 15:32 CDT Caffeine Use Grid Caffeine Use : Current Type : Soft drinks Frequency : Occasionally ANA KEYES [facility] - 12/18/2013 15:32 CDT Recreational Drug Use Grid Drug Use : None ANA KEYES SHANK CARRIER - 12/18/2013 15:32 CDT Source: [facility] POWERCHART Document Id: [id number] CDT!29 documented in this encounter Plan of Treatment Not on filedocumented as of this encounter Procedures Procedure Name Priority Date/Time Associated Diagnosis Comme nts HXSTREP GROUP B BY Routine 12/18/2013 4:00 PM Res ults for this PCR CDT procedure are i n the results section. documented in this encounter Results (ABNORMAL) HXSTREP GROUP B BY PCR (12/18/2013 4:00 PM CDT) [facility] gist Method Time Signature HXStrep Group [...]
--- OUTSIDE RECORDS SUMMARY | 2022-07-06 10:29 | XMS_ITS | Encounter Summary ---
:1995 Author Organization [facility] Address [address] [place] [address] Care Team Providers Name Role Phone Unavailable Primary Care Provider Unavailable Encounter Details Date Type Department Care Team Description 09/26/2013 Hospital Encounter HX [facility] Bridget Saldaña M.D. Social History Tobacco [...] How often do you attend sikh or yazidism Never 10/23/2020 services? 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 - 09/26/2013 3:00 PM CST [id number] No vaginal bleeding or leaking of fluid. No concerns. TLM Source: [facility] Document Id: [id number] Electronically signed by Conversion, [facility] Retail Advertising Executive [id number] at 01/09/2017 3:26 PM CDT Bridget Harrintgon M.D. - 09/26/2013 3:00 PM CST [id number] Gct/cbc today. F/up scan next visit. C/o constipation, fiber, exercise, colace prn. Source: [facility] Document Id: [id number] Electronically signed by Conversion, [facility] Retail Advertising Executive [id number] at 01/09/2017 3:26 PM CDT documented in this encounter Miscellaneous Notes Miscellaneous - Bridget Harrington M.D. - 09/26/2013 3:00 PM CST [id number] Carly Joseph [address] [facility] [address] September 27, 2013 Dear Ms. Joseph: I am writing to inform you the results of the laboratory tests you had done during your recent visitto the clinic. Your results included : your glucose and cbc were both normal. It was a pleasure to see you in the clinic. If you have any further questions or problems, please contact our office at [phone]. Sincerely, Dr Bridget Harrington MD Dept. CARE PROVIDER [facility] [place] Source: [facility] RWHXTRANSXRTFSYS Document Id: [id number] Electronically signed by Conversion, [facility] Retail Advertising Executive [id number] at 01/09/2017 3:26 PM CDT documented in this encounter Plan of Treatment Not on filedocumented as of this encounter Procedures Procedure Name Priority Date/Time Associated Diagnosis Comme nts GLUC ROBIN/GLUCOSE Routine 09/26/2013 5:02 PM Resul ts for this FIELD INSTRUCTOR procedure are i n the results section. documented in this encounter Results Gluc Robin/Glucose (09/26/2013 5:02 PM FIELD INSTRUCTOR) P athologist Signature HXGluc 1 Hr 91 MGDL [facility] Specimen (Source) Anatomical Collection Method Collection Time Re ceived Time Location / / Volume Laterality 09/26/2013 5:02 PM FIELD INSTRUCTOR Historical Provider LAB BLOOD ADD-ON Performing Organization Address City/State/ZIP Code Phon e Number [facility] documented in this encounter Visit Diagnoses Not on filedocumented in this encounter
--- OUTSIDE RECORDS SUMMARY | 2022-07-06 10:29 | XMS_ITS | Encounter Summary ---
:1995 Author Organization [facility] Address [address] [place] [address] Care Team Providers Name Role Phone Unavailable Primary Care Provider Unavailable Encounter Details Date Type Department Care Team Description 10/24/2013 Hospital Encounter [facility] Iva Sam, SHAYE N, C.N.P. [address] [place], [place] [phone] (Wo rk) Social History [...] How often do you attend advent or restorationism Never 10/23/2020 services? 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 - 10/24/2013 2:05 PM CDT [id number] Quick Note: notified Source: [facility] Document Id: [id number] Electronically signed by Conversion, [facility] Councillor [employer] [id number] at 01/09/2017 4:48 PM CDT Conversion, Historical Provider Ser - 10/24/2013 2:05 PM CDT [id number] No concerns at this time. Source: [facility] Document Id: [id number] Iva Guerrero C.N.P., R.N. - 10/24/2013 2:05 PM CDT [id number] Feels palpitations off and on. 1-2 times [...] appt.: Yes Car Seat Safety: Yes Source: [facility] RWHXTRANSXRTFSYS Document Id: [id number] Electronically signed by Conversion, [facility] Councillor [employer] [id number] at 01/09/2017 4:48 PM CDT documented in this encounter Plan of Treatment Not on filedocumented as of this encounter Visit Diagnoses Not on filedocumented in this encounter
--- OUTSIDE RECORDS SUMMARY | 2022-07-06 10:29 | XMS_ITS | Encounter Summary ---
:1995 Author Organization [facility] Address [address] [place] [address] Care Team Providers Name Role Phone Unavailable Primary Care Provider Unavailable Encounter Details Date Type Department Care Team Description 12/02/2013 Hospital Encounter [facility] Prisca Villa M.D. Social History [...] How often do you attend presybeterian or zoroastrian Never 10/23/2020 services? 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 (Girls, 2-20 Years) documented in this encounter Discharge Summaries Erwin Trejo R.N. - 12/02/2013 8:06 PM CDT Hospital Discharge Instructions [facility] [address] [place] [address] Patient Discharge Instructions Name: DHIRAJ LANDA Current Date: 12/02/2013 20:06:43 : 1995 12:00 AM [facility] Number: [id number] Patient Address: [address] [place] [phone] Patient Primary Care Provider: Name: PCP, UNASSIGNED - RW Phone: Discharge Diagnosis: [facility] would like to thank you for allowing [...] nasal (Flonase 0.05 mg/inh nasal spray) 2 Coplay(s), Nasal, two times a day fluticasone-salmeterol (Advair [...] Date Time Location Reason Provider 12/05/2013 13:00 [facility] INSIDE SALES ASSISTANT Lory Villa MD 12/18/2013 15:20 [facility] INSIDE SALES ASSISTANT 36 wk ob check/us room Iva Guerrero CNP, I, DHIRAJ LANDA , have received the attached patient education materials/instructionsand have verbalized understanding: Patient Signature Date Time Care Provider Signature Date Time 15412 Kick Counts Its normal to worry about [...] felt your baby move all day. ?? 2125-[address], [place] [address]. All rights reserved. This information is not intended as a substitute for professional medical care. Always follow your healthcare professional's instructions. [id number] PREMATURE LABOR Premature Labor (also called Pre-term [...] you don't know what it is ?? 4570-8569 [place] [address]. All rights reserved. This information is not intended as a substitute for professional medical care. Always follow your healthcare professional's instructions. [id number] FALSE LABOR [term ] If your is [...] are having false or true labor ?? 4690-2205 Located within [facility], [address] [place] [address], [place] [address]. All rights reserved. This information is not intended as a substitute for professional medical care. Always follow your healthcare professional's instructions. This document has images extracted. Please consider using [employer] for all your patient education needs. Source: [facility] POWERCHART Document Id: [id number] Erwin Trejo R.N. - 12/02/2013 8:06 PM CDT Hospital Discharge Medication List [facility] [address] [place] [address] Discharge Medication List Name: DHIRAJ LANDA Current Date: 12/02/2013 20:06:42 : 1995 12:00 AM [facility] Number: [id number] Patient Address: [address] [place] [phone] Patient Primary Care Provider: Name: PCP, UNASSIGNED - RW Phone: Discharge Diagnosis: [facility] [place] would like to thank you for allowing [...] nasal (Flonase 0.05 mg/inh nasal spray) 2 Coplay(s), Nasal, two times a day fluticasone-salmeterol (Advair [...] Comment: Electronically Signed By: Signed On: Source: [facility] POWERCHART Document Id: [id number] documented in this encounter Medications at Time [...] 155 +qualifying accelerations no decels +moderate variability [place]: rare uterine contractions A: Category 1 tracing Plan: 1. Discharge Home 2. Precautions Discussed 3. Follow up for scheduled appointment Electronically Signed By: LORY VILLA MD On: 12/02/2013 07:51 PM Source: [facility] POWERCHART Document Id: [id number] documented in this encounter Nursing Notes Erwin [...] TREJO RN - 12/02/2013 20:01 CDT [facility] Document Id: [id number] CDT!3 Erwin Trejo R.N. - 12/02/2013 7:48 [...] TREJO RN - 12/02/2013 20:32 CDT Source: [facility] [employer] Document Id: [id number] CDT!3 Erwin Trejo R.N. - 12/02/2013 7:30 [...] : Yes [facility]HR Provider Notified : Yes ERWNI TREJO RN - 12/02/2013 20:22 CDT Psycho/Emotional Pain Symptoms : No ERWIN TREJO RN - 12/02/2013 20:32 CDT Source: [employer] Document Id: [id number] CDT!3 Erwin Trejo R.N. - 12/02/2013 7:10 [...] TREJO RN - 12/02/2013 20:19 CDT Source: [employer] Document Id: [id number] CDT!4 documented in this encounter Miscellaneous Notes Miscellaneous - Erwin Trejo, R.N. - 12/02/2013 8:07 PM CDT Hospital Patient Education The following Patient Education Materials have been given to the patient: Patient Education Materials: Ambulatory PREMATURE LABOR FALSE LABOR Health Services Information Specialist Kick Counts Understanding Preeclampsia Ambulatory [id number] PREMATURE LABOR Premature Labor (also called Pre-term [...] you don't know what it is ?? 9169-4562 [place], [address] [facility], [place] [address]. All rights reserved. This information is not intended as a substitute for professional medical care. Always follow your healthcare professional's instructions. [id number] FALSE LABOR [term ] If your is [...] are having false or true labor ?? 8752-1168 Located within [facility], [address] [place] [address]. All rights reserved. This information is not intended as a substitute for professional medical care. Always follow your healthcare professional's instructions. Health Services Information Specialist 15753 Kick Counts Its normal to worry about [...] felt your baby move all day. ?? 2433-2420 Located within [facility], [address] [place] [address]. All rights reserved. This information is not intended as a substitute for professional medical care. Always follow your healthcare professional's instructions. 42635 Understanding Preeclampsia Preeclampsia is a problem that [...] preeclampsia also will go away soon. ?? 0429-8201 [employer], [address] [place] [address]. All rights reserved. This information is not intended as a substitute for professional medical care. Always follow your healthcare professional's instructions. This document has images extracted. Please consider using [employer] for all your patient education needs. Source: [facility] POWERCHART Document Id: [id number] documented in this encounter Plan of Treatment Not on filedocumented as of this encounter Visit Diagnoses Not on filedocumented in this encounter
--- OUTSIDE RECORDS SUMMARY | 2022-07-06 10:29 | XMS_ITS | Encounter Summary ---
:[address] [facility] Address [address] [place] [address] Care Team Providers Name Role Phone Unavailable Primary Care Provider Unavailable Encounter Details Date Type Department Care Team Description 11/21/2013 Hospital Encounter HX [facility] Bridget Saldaña M.D. Social History Tobacco [...] How often do you attend episcopalian or adventist Never 10/23/2020 services? 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 documented as of this encounter Last [...] 11/21/2013 1:47 PM CD T Growth Chart: [facility] (Girls, 2-20 Years) documented in this [...] Mass Index : 31.86 kg/m2 [facility] - 11/21/2013 13:47 CDT Dependent Habits Tobacco Use/Currently Using : No Exposure to Tobacco Smoke : Care provider denies smoking in home Smoking Status : Never smoker [facility] - 11/21/2013 13:47 CDT Tobacco Use Grid Last Use : never [facility] - 11/21/2013 13:47 CDT Alcohol Use : No [facility] - 11/21/2013 13:47 CDT Caffeine Use Grid Caffeine Use : Current Type : Soft drinks Frequency : Occasionally [facility] - 11/21/2013 13:47 CDT Recreational Drug Use Grid Drug Use : None [facility] - 11/21/2013 13:47 CDT Psychosocial Domestic Abuse Concerns : None [facility] - 11/21/2013 13:47 CDT Source: [facility] Document Id: [id number] CDT!27 documented in this encounter Miscellaneous Notes [...] gonorrhea and chlamydia culture. THX SAT Source: [facility] Document Id: [id number] Miscellaneous - Bridget Villa M.D. - 11/21/2013 [...] sent to her pharmacy. MORGAN, JONAH Source: [facility] [employer] Document Id: [id number] Telephone Encounter - Bridget Villa M.D. - [...] back cell phone number ( ) Source: [facility] Document Id: [id number] Electronically signed by Stuart [facility] Gluing Crew Leader [id number] at 01/11/2017 7:39 AM CDT Miscellaneous - Bridget Villa M.D. - 11/21/2013 2:28 PM CDT Ambulatory Patient Summary [facility] [address], [address] [place], [place] [id number] Visit Information Name: DHIRAJ LANDA [facility] Number: [id number] Current Date: 11/21/2013 14:28:45 Physicians [...] nasal (Flonase 0.05 mg/inh nasal spray) 2 [place](s), Nasal, two times a day fluticasone-salmeterol (Advair [...] instructions: Source: [facility] POWERCHART Document Id: [id number] Miscellaneous - Bridget Villa M.D. - 11/21/2013 2:28 PM CDT Ambulatory Discharge Medication List [facility] [address], [address] [place], [place] [phone] Visit Information Name: DHIRAJ LANDA [facility] Number: [id number] Visit Date: 11/21/2013 14:28:43 Attending [...] nasal (Flonase 0.05 mg/inh nasal spray) 2 [place](s), Nasal, two times a day fluticasone-salmeterol (Advair [...] MD Signed On:21-NOV-2013 14:28:39 Additional Information: Source: [facility] POWERCHART Document Id: [id number] documented in this encounter Plan of Treatment [...] athologist Signature HXN gonor Amp Negative POWERCHART [place] Specimen (Source) Anatomical Collection Method Collection Time Re ceived Time Location / / Volume Laterality 11/21/2013 2:24 PM CDT Narrative POWERCHART - 11/22/2013 7:55 PM CDT Test Performed by: [address] [address] Activities Officer: Israel meeks III, M.D. Bridget Villa M.D. LAB HISTORICAL ORDERS Performing Organization Address City/State/ZIP Code Phon e Number POWERCHART HX-N gonor Amp Src (11/21/2013 2:24 PM CDT) athologist Signature HXN gonor Amp cx POWERCHART Src-[place] Specimen (Source) Anatomical Collection Method Collection Time Re ceived Time Location / / Volume Laterality 11/21/2013 2:24 PM CDT Bridget Villa M.D. LAB HISTORICAL ORDERS Performing Organization Address City/State/ZIP Code Phon e Number POWERCHART HX-C trach Amp RNA (11/21/2013 2:24 PM CDT) [facility] gist Method Time Signature Chlamydia Negative POWERCHART trachomatis amplified RNA Specimen (Source) Anatomical Collection Method Collection Time Re ceived Time Location / / Volume Laterality 11/21/2013 2:24 PM CDT Bridget Villa M.D. LAB HISTORICAL ORDERS Performing Organization Address City/[facility]/ZIP Code Phon e Number POWERCHART HX-C trach Amp Src (11/21/2013 2:24 PM CDT) athologist Signature HXC trach Amp cx [facility] Spec[facility] (Source) Anatomical Collection Method Collection Time Re ceived Time Location / / Volume Laterality 11/21/2013 2:24 PM CDT Bridget Villa M.D. LAB HISTORICAL ORDERS Performing Organization Address City/[facility] Code Phon e Number POWERCHART (ABNORMAL) Wet [...] - GENERAL O RDERABLES Performing Organization Address City/State/[facility] Phon e Number POWERCHART documented in this encounter Visit Diagnoses Not on filedocumented in this encounter
--- OUTSIDE RECORDS SUMMARY | 2022-07-06 10:30 | XMS_ITS | Encounter Summary ---
:1995 Author Organization [facility] Address [address] [place] [address] Care Team Providers Name Role Phone Unavailable Primary Care Provider Unavailable Encounter Details Date Type Department Care Team Description 05/01/2012 Hospital Encounter HX [facility] Stephanie Ge M.D. [...] How often do you attend judaism or yazidism Never 10/23/2020 services? 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 - 05/01/2012 5:36 PM CDT [id number] CHIEF COMPLAINT/REASON FOR VISIT Xin comes in [...] in two days for repacking. Stephanie Ge M.D./[facility] Electronically Signed By: STEPHANIE GE MD On: 05/05/2012 07:47 AM Source: [facility] MHSDOLBEYNONRADSYS Document Id: [id number] documented in this encounter Nursing Notes Stuart, [...] PENA RN On: 04/29/2012 05:56 PM Source: [facility] POWERCHART Document Id: [id number] documented in this encounter Miscellaneous Notes Miscellaneous - Ember Bethea, LGonzaloP.NGonzalo - 05/01/2012 5:40 PM CDT Pediatric Comic Writer Intake/History Pediatric Comic Writer Intake/History Entered On: 05/01/2012 17:45 CDT Performed [...] LPN; Reviewed Date: 05/01/2012 16:08 CDT [facility] Document Id: [id number] documented in this encounter Plan of Treatment Not on filedocumented as of this encounter Visit Diagnoses Not on filedocumented in this encounter
--- OUTSIDE RECORDS SUMMARY | 2022-07-06 10:30 | XMS_ITS | Encounter Summary ---
:1995 Author Organization [facility] Address [address] [place] [address] Care Team Providers Name Role Phone Unavailable Primary Care Provider Unavailable Encounter Details Date Type Department Care Team Description 05/05/2012 Hospital Encounter HX [facility] ME Stephanie Ge M.D. [...] How often do you attend cheondoism or adventism Never 10/23/2020 services? 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 - 05/05/2012 3:58 PM CDT [id number] CHIEF COMPLAINT/REASON FOR VISIT Repacking of abscess. [...] GE MD On: 05/09/2012 01:35 PM Source: [facility] MHSDOLBEYNONRADSYS Document Id: [id number] documented in this encounter Miscellaneous Notes Miscellaneous - Stephanie Ge M.D. - 05/05/2012 5:10 PM CDT Ambulatory Depart Summary [facility] [address] [place] [address] Visit Information Name: CARLY LANDA Visit Date: [...] your provider for clarification. Additional Information: Source: [facility] POWERCHART Document Id: [id number] Miscellaneous - Stephanie Ge M.D. - 05/05/2012 5:10 PM CDT Ambulatory Patient Summary [place] [id number] [place] [address] Visit Information Name: CARLY LANDA Current Date: [...] Time Location Reason Provider 05/08/2012 15:45 [facility] Family Med REPACK WOUND Your Goals/Additional instructions: Source: [facility] [employer] Document Id: [id number] Miscellaneous - Jeanette Dennison L.PGonzaloNGonzalo - 05/05/2012 4:03 PM CDT Pediatric Production Support Manager Intake/History Pediatric Production Support Manager Intake/History Entered On: 05/05/2012 16:06 CDT Performed [...] LPN; Reviewed Date: 05/01/2012 16:08 CDT Source: [facility] POWERCHART Document Id: [id number] documented in this encounter Plan of Treatment Not on filedocumented as of this encounter Visit Diagnoses Not on filedocumented in this encounter
--- OUTSIDE RECORDS SUMMARY | 2022-07-06 10:30 | XMS_ITS | Encounter Summary ---
:1995 Author Organization [facility] Address [address] [place] [address] Care Team Providers Name Role Phone Unavailable Primary Care Provider Unavailable Encounter Details Date Type Department Care Team Description 05/12/2012 Hospital Encounter HX [facility] Pako Felix III, M.D. [address] [place] [address] [phone] (Wo rk) Social History Tobacco Use Types [...] How often do you attend orthodox or caodaism Never 10/23/2020 services? 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
--- OUTSIDE RECORDS SUMMARY | 2022-07-06 10:30 | XMS_ITS | Encounter Summary ---
:1995 Author Organization [facility] Address [address] [place] [address] Care Team Providers Name Role Phone Unavailable Primary Care Provider Unavailable Encounter Details Date Type Department Care Team Description 02/15/2012 Hospital Encounter HX [facility] [place] Manny Diaz, N[address] [place] [address] [phone] (Wo rk) Social History Tobacco Use [...] How often do you attend voodoo or buddhism Never 10/23/2020 services? 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 - 02/15/2012 12:00 AM CDT [id number] CHIEF COMPLAINT/REASON FOR VISIT Painful bump on right ankle. HISTORY OF PRESENT ILLNESS Sray is a 17-year-old female who is here [...] N.P. /anthony Electronically Signed By: SASKIA DIAZ CRAYON MOLDING MACHINE OPERATOR On: 02/22/2012 05:39 PM Source: [facility] MHSDOLBEYNONRADSYS Document Id: [id number] documented in this encounter Miscellaneous Notes Miscellaneous - Saskia Diaz NGonzaloP. - 02/15/2012 10:32 AM CDT Ambulatory Patient Summary [address] [address] Visit Information Name: DHIRAJ LANDA Current Date: [...] No Appointments found Your Goals/Additional instructions: Source: [facility] POWERCHART Document Id: [id number] Miscellaneous - Saskia Diaz, N.P. - 02/15/2012 10:32 AM CDT Ambulatory Depart Summary [place] [id number] [place] [address] Visit Information Name: DHIRAJ LANDA Visit Date: 02/15/2012 10:32:02 Attending Provider: SASKIA DIAZ CRAYON MOLDING MACHINE OPERATOR Primary Care Provider: JAMARI MCHUGH MD DHIRAJ [...] your provider for clarification. Additional Information: Source: [facility] POWERCHART Document Id: [id number] Miscellaneous - Biis Bethea L.P.N. - 02/15/2012 9:37 AM CDT Pediatric Concrete Boom Operator Intake/History Pediatric Concrete Boom Operator Intake/History Entered On: 02/15/2012 9:41 CDT Performed On: 02/15/2012 9:37 CDT by BISI BETHEA PUFF IRON OPERATOR Intake Chief Complaint : Right ankle had [...] LPN; Reviewed Date: 02/15/2012 7:14 CDT Source: [facility] [employer] Document Id: [id number] documented in this encounter Plan of Treatment Not on filedocumented as of this encounter Visit Diagnoses Not on filedocumented in this encounter
--- OUTSIDE RECORDS SUMMARY | 2022-07-06 10:30 | XMS_ITS | Encounter Summary ---
:1995 Author Organization [facility] Address [address] [place] [address] Care Team Providers Name Role Phone Unavailable Primary Care Provider Unavailable Encounter Details Date Type Department Care Team Description 10/23/[address] [facility] [place] Stephanie Ge M.D. 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 - 10/23/2010 12:00 AM CST [id number] HISTORY OF PRESENT ILLNESS Sary is here [...] STEPHANIE GE MD On: 10/23/2010 01:53 Source: [facility] MHSDOLBEYNONRADSYS Document Id: [id number] CAR RACER documented in this encounter Miscellaneous Notes Miscellaneous - Vinnie Lyman L.P.N. - 10/23/2010 9:07 AM CST Pediatric Cross Country/Track And Field Coach Intake/History Pediatric Cross Country/Track And Field Coach Intake/History Entered On: 10/23/2010 9:10 DRAG CAR RACER Performed On: 10/23/2010 9:07 DRAG CAR RACER by VINNIE LYMAN LPN Intake Chief Complaint: Sports Physical Golf Temperature Core: 36.4C(Converted to: 97.5DegF) (LOW) Peripheral Pulse Rate: 70/min Respiratory Rate: 18/min Systolic Blood Pressure: 100mmHg Diastolic Blood Pressure: 52mmHg NIBP Mean: 68mmHg BP Location: Left upper extremity Heart Rhythm: Regular Actual Weight: 68.800kg(Converted to: 151lb 11oz) Weight Source: Standing scale Dosing Weight Clinic: 68.80kg VINNIE LYMAN LPN - 10/23/2010 9:07 DRAG CAR RACER Subjective Pain Symptoms: No VINNIE LYMAN LPN - 10/23/2010 9:07 DRAG CAR RACER Dependent Habits Tobacco Use/Currently Using: No VINNIE LYMAN LPN - 10/23/2010 9:07 DRAG CAR RACER Allergy Allergies (Active) Suprax Estimated Onset Date: Unspecified ; Created By: JENNIFER ARCHIBALD LPN; Reaction Status: Active ; Category: Drug ; Substance: Suprax ; Type: Allergy ; Updated By: JENNIFER ARCHIBALD LPN; Reviewed Date: 10/23/2010 9:07 DRAG CAR RACER Source: [facility] [employer] Document Id: [id number] DRAG CAR RACER!18 CAR RACER documented in this encounter Plan of Treatment Not on filedocumented as of this encounter Visit Diagnoses Not on filedocumented in this encounter
--- OUTSIDE RECORDS SUMMARY | 2022-07-06 10:30 | XMS_ITS | Encounter Summary ---
:1995 Author Organization [facility] Address [address] [place] [address] Care Team Providers Name Role Phone Unavailable Primary Care Provider Unavailable Encounter Details Date Type Department Care Team Description 12/07/2011 Hospital Encounter HX [facility] Emergency Department Gabriel gr, P.A. [address] [place] [phone] (Wo rk) Social History Tobacco [...] How often do you attend pentecostalism or hindu Never 10/23/2020 services? 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 Her mom is waiting in the [employer]. She is complaining of a sore throat [...] LABORATORY DATA: Rapid strep test was negative. Bonner was positive. IMPRESSION/REPORT/PLAN 1. Mononucleosis. PLAN: Information [...] JULIA ARREOLA On: 12/14/2011 02:09 PM Source: [facility] MHSDOLBEYNONRADSYS Document Id: [id number] documented in this encounter Miscellaneous Notes Miscellaneous - Julia Arreola - 12/07/2011 5:23 PM CDT Ambulatory Depart Summary [place] [address] [place] [address] Visit Information Name: SEYDA DHIRAJLOTUS ARMAS Visit Date: 12/07/2011 17:23:17 Attending [...] your provider for clarification. Additional Information: Source: [facility] POWERCHART Document Id: [id number] Miscellaneous - Julia Arreola - 12/07/2011 5:23 PM CDT Ambulatory Patient Summary [address] [address] Visit Information Name: DHIRAJ LANDA Current Date: [...] No Appointments found Your Goals/Additional instructions: Source: [facility] POWERCHART Document Id: [id number] Miscellaneous - Conversion, Historical Provider Ser - 12/07/2011 9:02 AM CDT Pediatric Superintendent Local Intake/History Pediatric Superintendent Local Intake/History Entered On: 12/07/2011 9:04 CDT Performed On: 12/07/2011 9:02 CDT by ERWIN CLOON LPN Intake Chief Complaint : sinus pressure, [...] Dosing Weight Clinic : 72.60kg [facility] - 12/07/2011 9:02 CDT Subjective Pain Symptoms : Yes [facility] - 12/07/2011 9:02 CDT Pain Pain Assessment Grid Pain 1 Location : Throat Intensity : 3 [facility] - 12/07/2011 9:02 CDT Dependent Habits Tobacco Use/Currently Using : No Smoking Status : Never smoker [facility] - 12/07/2011 9:02 CDT Caffeine Use Grid Caffeine Use : Current Type : Soft drinks Frequency : Daily [facility] - 12/07/2011 9:02 CDT Recreational Drug Use Grid Drug Use : None [facility] - 12/07/2011 9:02 CDT Allergy Allergies (Active) Suprax Estimated Onset Date: Unspecified ; Created By: JENNIFER ARCHIBALD LPN; Reaction Status: Active ; Category: Drug ; Substance: Suprax ; Type: Allergy ; Updated By: JENNIFER ARCHIBALD LPN; Reviewed Date: 07/29/2011 16:53 REGIONAL 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 LAB POCT ORDERABLES-MT NORMMA Performing Organization Address City/State/ZIP Code Phon e Number POWERCHART Rapid Strep A Screen (12/07/2011 9:33 AM CDT) [facility] Phone Warrior Method Time Signature HXRapid Strep POWERCHART Confirmation HXPre Negative for POWERCHART Group A Strep by culture. HXFinal Negative for POWERCHART Group A Strep by culture. Specimen Anatomical Collection Method Collection Time Receive d Time (Source) Location / / Volume Laterality Throat 12/07/2011 9:33 AM 2 9:33 CDT AM CDT Julia Arreola P.A.-C., P.A. LAB MICROBIOLOGY - GEN ERAL ORDERABLES Performing Organization Address City/[facility] Code Phon e Number POWERCHART Rapid Strep A Screen (12/07/2011 9:33 AM CDT) [facility] Phone Warrior Method Time Signature HXStrep A POWERCHART Screen Rapid HXFinal Negative for POWERCHART Strep Group A by rapid screen. HXFinal Culture POWERCHART confirmation to follow. Specimen (Source) Anatomical Collection Method Collection Time Re ceived Time Location / / Volume Laterality Throat 12/07/2011 9:33 AM CDT Julia Arreola P.A.-C., P.A. LAB MICROBIOLOGY - GEN ERAL ORDERABLES Performing Organization Address City/State/[facility] Code Phon e Number POWERCHART documented in this encounter Visit Diagnoses Not on filedocumented in this encounter
--- OUTSIDE RECORDS SUMMARY | 2022-07-06 10:30 | XMS_ITS | Encounter Summary ---
:[address] [facility] Address [address] [place] [address] Care Team Providers Name Role Phone Unavailable Primary Care Provider Unavailable Encounter Details Date Type Department Care Team Description 06/02/2011 Hospital Encounter HX [facility] Maureen petersen M.D. [address] [place] [phone] (Wo rk) Social History Tobacco Use Types [...] How often do you attend worship or shinto Never 10/23/2020 services? 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 - 06/02/2011 12:00 AM CDT [id number] CHIEF COMPLAINT/REASON FOR VISIT Sinus congestion. HISTORY [...] BACA MD On: 06/15/2011 08:44 AM Source: [facility] MHSDOLBEYNNEIL Document Id: [id number] documented in this encounter Miscellaneous Notes Miscellaneous [...] BACA MD - 06/02/2011 20:00 CDT Source: [facility] [employer] Document Id: [id number] CDT!7 Miscellaneous - Maureen Mancilla M.D. - 06/02/2011 5:34 PM CDT Ambulatory Patient Summary [address] [address] Visit Information Name: DHIRAJ LANDA Current Date: [...] found Your Goals/Additional instructions: Source: [facility] POWERCHART Document Id: [id number] Miscellaneous - Maureen Mancilla M.D. - 06/02/2011 5:34 PM CDT Ambulatory Depart Summary [address] [address] Visit Information Name: RAYMONDKYLEDHIRAJ PAWEL Current Date: [...] to the patient and/or family, guardian/caregiver. Source: [facility] POWERCHART Document Id: [id number] Miscellaneous - Chrissy Dia L.P.N. - 06/02/2011 5:13 PM CDT Pediatric Manager Spanish Intake/History Pediatric Manager Spanish Intake/History Entered On: 06/02/2011 17:20 CDT Performed [...] JENNIFER ARCHIBALD LPN; Reviewed Date: 10/23/2010 9:07 MIXER BLENDER Source: [facility] [employer] Document Id: [id number] CDT!29 documented in this encounter Plan of Treatment Not on filedocumented as of this encounter Visit Diagnoses Not on filedocumented in this encounter
--- OUTSIDE RECORDS SUMMARY | 2022-07-06 10:30 | XMS_ITS | Encounter Summary ---
:1995 Author Organization [facility] Address [address] [place] [address] Care Team Providers Name Role Phone Unavailable [...] How often do you attend mormonism or jew Never 10/23/2020 services? 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 [place] After Hours ExpertRN Call ID: [id number] Patient Name: Jaimie Service Date/Time: May 31, 2013 18:04 Duration: 00:02:44 Age: 18 Y Provider: Martha Thomas R.N. Pager: Birthdate: 1995 Sex: F Address: City: [place], [place] Service: [facility] CHIEF COMPLAINT / PURPOSE OF VISIT Triage nurse call: Carly Joseph is a 18 year old woman with possible symptoms of labor or miscarriage Abdominal pain today, 9 weeks . Calling from: [phone] HISTORY OF PRESENT ILLNESS: 1. Possible symptoms [...] information and instructions given Caller's primary language: Persian PERTINENT NEGATIVES No: charts accessed (none selected from list) Source: [facility] RWHXTRANSXRTFSYS Document Id: [id number] documented in this encounter Plan of Treatment Not on filedocumented as of this encounter Visit Diagnoses Not on filedocumented in this encounter
--- OUTSIDE RECORDS SUMMARY | 2022-07-06 10:30 | XMS_ITS | Encounter Summary ---
:1995 Author Organization [facility] Address [address] [place] [address] Care Team Providers Name Role Phone Unavailable Primary Care Provider Unavailable Encounter Details Date Type Department Care Team Description 05/31/2013 Hospital Encounter HX NO MAPPING Ancelmo Benítez M.D. [address] [place] [phone] (Wo rk) Social History Tobacco [...] How often do you attend restoration or hoahaoism Never 10/23/2020 services? 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
--- OUTSIDE RECORDS SUMMARY | 2022-07-06 10:30 | XMS_ITS | Encounter Summary ---
:1995 Author Organization [facility] Address [address] [place] [address] Care Team Providers Name Role Phone Unavailable Primary Care Provider Unavailable Encounter Details Date Type Department Care Team Description 04/26/2012 Hospital Encounter HX [facility] ED Juana Zabala , P.A.-C. [address] [place] [phone] (Wo rk) Social History Tobacco [...] How often do you attend mormon or rastafarian Never 10/23/2020 services? 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 The following includes patient education materials and informationregarding your injury/illness. Chief Complaint: Eruption of skin; rash on left thigh Follow-Up Instructions: With: Address: When: Follow up with primary care provider Within 2 - 4 days Comments: For recheck Patient Education Materials: [id number] CELLULITIS You have an infection of the [...] rectal, after two days on antibiotics ?? [id number] [employer], [address] [place] [address], [place] [address]. All rights reserved. This information is not [...] arrange a ride home with a responsible democrat. I, DHIRAJ LANDA , or responsible democrat have received this information and my questions [...] arrange a ride home with a responsible democrat. I, DHIRAJ LANDA , or responsible democrat have received this information and my questions have been answered. I have discussed any challenges I see with this plan with the nurse or physician. Patient Signature or Responsible Alliance Party/Relationship Date/Time Provider Signature Date/Time Source: [employer] Document Id: [id number] Vandana Marsh, RGonzaloN. - 04/29/2012 11:36 AM CDT ED Depart Summary [facility] Emergency Department Clinical Discharge Summary PERSON INFORMATION Name DHIRAJ LANDA Age 17 Years 1995 12:00 AM Sex Female Language Colombian PCP JAMARI MCHUGH MD Marital Status Single Visit Id Visit Reason Eruption of skin; rash on left thigh Specialty Enc Type Emergency Med Service Emergency Medicine Referred by Track Group [facility] ED Discharge 04/26/2012 11:00 PM Tracking Id [id number] Checkout 04/27/2012 11:01 AM Checkin 04/26/2012 9:32 PM Acuity Dispo Type * Discharged to Home or Self Care Arrival 04/26/2012 9:32 PM Reg Status LOS 000 13:29 Address: [address] [place], [place] [address]on [facility] [phone] Comment: PROVIDER INFORMATION Provider Role Provider Contact Time JUANA ZABALA ED Provider 04/26/12 22:01 JAMARI MCHUGH MD ED Provider 04/27/12 08:28 DIAGNOSIS Cellulitis of the leg 682.6 Comment: PATIENT EDUCATION INFORMATION Instructions: CELLULITIS Follow up: With: Address: When: Follow up with primary care provider Within 2 - 4 days Comments: For recheck [facility] Document Id: [id number] documented in this encounter Medications at Time [...] Nursing ; Code: 1231 ; Contributor System: [employer] ; Last Updated: 09/29/2010 17:17 DINKEY SKINNER ; Life Cycle Date: 09/29/2010 ;Life Cycle [...] Nursing ; Code: 1231 ; Contributor System: [employer] ; Last Updated: 09/29/2010 14:18 DINKEY SKINNER ; Life Cycle Date: 09/15 ; Life Cycle Status: Active ; Responsible Provider: JENNIFER ARCHIBALD LPN; Vocabulary: ICD-9-CM Diagnoses(Active) Eruption of skin Date: 04/26/2012 ; Diagnosis Type: Reason For Visit ; Confirmation: Complaint of ; Clinical Dx: Eruption of skin ; Classification: Medical ; Clinical Service: Emergency medicine ; Code: PNED ; Probability: 0 ; Diagnosis Code: [id number] Triage Chief Complaint Description : 17 year old female admits with eruption on inner thigh of left leg. Ptdenies having a bug bite or pimple there. Pt states she noticed it this am but redeness worse tonight Information Given By : Patient, Mother Accompanied By : Grandparent, Mother Mode of Arrival ED : Private vehicle Track : Medical Languages : Colombian CHANDNI HIGGINS RN - 04/26/2012 21:38 CDT [...] HIGGINS RN - 04/26/2012 21:38 CDT [facility] Document Id: [id number] documented in this encounter ED Notes Juana [...] primary or secondary; younger than age 12 ([id number]) in 2000 at 5 Years. Family history: [...] Stable. Disposition: Discharged: to home. Prescriptions: Prescription Tax Services Professional. Pharmacy: amoxicillin-clavulanate 875 mg-125 mg oral tablet [...] JUANA ZABALA On: 04/26/2012 11:39 PM Source: [facility] POWERCHART Document Id: [id number] documented in this encounter Miscellaneous Notes Miscellaneous [...] Control : 4 Lynx Visit Level : 99015 Level 2 KRISTIN WOODS RN - 04/27/2012 8:52 CDT [facility] Document Id: [id number] documented in this encounter Plan of Treatment Not on filedocumented as of this encounter Visit Diagnoses Not on filedocumented in this encounter
--- OUTSIDE RECORDS SUMMARY | 2022-07-06 10:30 | XMS_ITS | Encounter Summary ---
:1995 Author Organization [facility] Address [address] [place] [address] Care Team Providers Name Role Phone Unavailable Primary Care Provider Unavailable Encounter Details Date Type Department Care Team Description 05/31/2013 Hospital Encounter HX NO MAPPING Ancelmo Benítez M.D. 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
--- OUTSIDE RECORDS SUMMARY | 2022-07-06 10:30 | XMS_ITS | Encounter Summary ---
:[address] [facility] Address [address] [place] [address] Care Team Providers Name Role Phone Unavailable Primary Care Provider Unavailable Encounter Details Date Type Department Care Team Description 05/03/2012 Hospital Encounter HX [facility] Johnnie Walls M.D. [address] [place] [phone] (Wo rk) Social History Tobacco Use Types [...] How often do you attend islam or cheondoism Never 10/23/2020 services? 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 Medications at [...] approximated, Edges , Tunneling, Undermining Color : Sturtevant Drainage : Bloody, Serosanguineous Drainage Amount : [...] JOHNSON RN - 05/03/2012 16:52 CDT [facility] POWERCHART Document Id: [id number] documented in this encounter Nursing Notes Cornelio [...] JOHNSON RN On: 05/03/2012 05:01 PM Source: [facility] POWERCHART Document Id: [id number] documented in this encounter Plan of Treatment Not on filedocumented as of this encounter Visit Diagnoses Not on filedocumented in this encounter
--- OUTSIDE RECORDS SUMMARY | 2022-07-06 10:30 | XMS_ITS | Encounter Summary ---
:1995 Author [address] [facility] Address [address] [place] [address] Care Team Providers Name Role Phone Unavailable Primary Care Provider Unavailable Encounter Details Date Type Department Care Team Description 05/10/2012 Hospital Encounter [facility] FAMILY Pako Felix III, M.D. [address] [place] [phone] (Wo rk) Social History Tobacco Use Types [...] How often do you attend episcopalian or methodist Never 10/23/2020 services? 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 - 05/10/2012 3:38 PM CDT [id number] CHIEF COMPLAINT/REASON FOR VISIT Repacking of abscess [...] woundshows a significant pocket that undermines approximately spj-dq-nxkrb centimeters in all directions.The area was explored [...] III, MD On: 05/23/2012 04:05 PM Source: [facility] MHSDOLBEYNONRADSYS Document Id: [id number] documented in this encounter Miscellaneous Notes Miscellaneous - Robe Rosario M.D. - 05/10/2012 4:46 PM CDT Ambulatory Patient Summary [id number] [place] [address] Visit Information Name: DHIRAJ LANDA Current Date: [...] Date Time Location Reason Provider 05/12/2012 09:45 [facility] Family Med f/u leg re-packing - per Dr. Rosario - may be seen without Mother Your Goals/Additional instructions: Source: [facility] POWERCHART Document Id: [id number] Miscellaneous - Robe Rosario M.D. - 05/10/2012 4:46 PM CDT Ambulatory Depart Summary [address] [address] Visit Information Name: DHIRAJ LANDA Visit Date: [...] your provider for clarification. Additional Information: Source: [facility] POWERCHART Document Id: [id number] Miscellaneous - Chrissy Dia, L.P.N. - 05/10/2012 3:50 PM CDT Pediatric Body Rolling Machine Tender Intake/History Pediatric Body Rolling Machine Tender Intake/History Entered On: 05/10/2012 15:56 CDT Performed [...] LPN; Reviewed Date: 05/10/2012 15:46 CDT Source: [facility] [employer] Le[employer]CHART Document Id: [id number] documented in this encounter Plan of Treatment Not on filedocumented as of this encounter Visit Diagnoses Not on filedocumented in this encounter
--- OUTSIDE RECORDS SUMMARY | 2022-07-06 10:30 | XMS_ITS | Encounter Summary ---
:1995 Author Organization [facility] Address [address] [place] [address] Care Team Providers Name Role Phone Unavailable Primary Care Provider Unavailable Encounter Details Date Type Department Care Team Description 12/12/2011 Hospital Encounter HX [facility] ED Ramsey Kahn M.D. [address] [place], [place] [address] (Wo rk) Social History [...] How often do you attend jainism or protestant Never 10/23/2020 services? 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 The following includes patient education materials and informationregarding your injury/illness. Chief Complaint: mono /sore throat Follow-Up Instructions: With: Address: When: DALJIT ARREOLA [address] [place] [address] Business (1) Within AsNeeded Comments: Patient Education Materials: [id number] MONONUCLEOSIS Mononucleosis (Bayamon) is a contagious viral infection. Most infants and children exposed to the virus get only mild flu-like symptoms or no symptoms at all. However, when infection occurs in teens andyoung adults, it causes Mononucleosis. Once infected, you are immune and cannot catch Bayamon again; h owever, the virus stays in [...] week or more than three weeks, the Bayamon-Spot test used to diagnose this disease may [...] but a drug reaction with the virus. Bayamon can cause your spleen to swell. The [...] It may cause severe liver damage.) 4) Mrtr-xim-vuuhbjx lozenges or spray may be used for [...] itchy rash, you may take Benadryl (an scuz-fkd-snwosit antihistamine). Use lower doses during the daytime [...] stiff neck, headache or facial weakness ?? 0815-3694 [employer], [address] [place] [address]. All rights reserved. This information is not intended as a substitute for professional medical care. Always follow your healthcare professional's instructions. [id number] MEDICATION: TYLENOL & CODEINE You have been [...] any questions that you may have.] ?? 6759-3112 [employer], [address] [place] [address]. All rights reserved. This information is not [...] nurse or physician. Patient Signature or Responsible Constitution Party/Relationship Date/Time Provider Signature Date/Time Medication Reconciliation: [...] a ride home with a responsible democrat. SYEDA Madrid JACALYN MARIE , or responsible democrat have received this information and my questions have been answered. I have discussed any challenges I see with this plan with the nurse or physician. Patient Signature or Responsible Constitution Party/Relationship Date/Time Provider Signature Date/Time [facility] Document Id: [id number] Kristin Woods R.N. - 12/12/2011 8:13 AM CDT ED Depart Summary [facility] Emergency Department Clinical Discharge Summary PERSON INFORMATION Name DHIRAJ LANDA Age 16 Years 1995 12:00 PM Sex Female Language British PCP JAMARI MCHUGH MD Marital Status Single Visit Id Visit Reason mono /sore throat Specialty Enc Type Emergency Med Service Emergency Medicine Referred by Track Group [facility] ED Discharge 12/12/2011 8:13 AM Tracking Id [id number] Checkout 12/12/2011 8:13 AM Checkin 12/12/2011 6:57 AM Acuity Dispo Type * Discharged to Home or Self Care Arrival 12/12/2011 6:57 AM Reg Status Complete LOS 000 01:16 Address: [address] [place] [id number] Comment: PROVIDER INFORMATION Provider Role Provider Contact Time KRISTIN WOODS RING CUTTER LATHE OPERATOR Nurse 12/12/11 07:12 BETZAIDA KAHN MD ED Provider 12/12/11 07:25 DIAGNOSIS mononucleosis Comment: PATIENT EDUCATION INFORMATION Instructions: MONONUCLEOSIS; TYLENOL AND CODEINE Follow up: With: Address: When: DALJIT ARREOLA [address] [place] [address] [facility] () Within AsNeeded Comments: Source: [facility] POWERCHART Document Id: [id number] documented in this encounter Medications at Time [...] WOODS RN - 12/12/2011 8:12 CDT Source: [facility] [employer] Document Id: [id number] CDT!3 Kristin Woods R.N. - 12/12/2011 7:15 [...] Nursing ; Code: 1231 ; Contributor System: AroundWireChart ; Last Updated: 09/29/2010 17:17 RUBBER MOULDING MACHINE OPERATOR ; Life Cycle Date: 09/29/2010 [...] Nursing ; Code: 1231 ; Contributor System: [employer] ; Last Updated: 09/29/2010 14:18 RUBBER MOULDING MACHINE OPERATOR ; Life Cycle Date: 09/15 ; Life Cycle Status: Active ; Responsible Provider: JENNIFER ARCHIBALD LPN; Vocabulary: ICD-9-CM Diagnoses(Active) Throat pain - Pediatric Date: 12/12/2011 ; Diagnosis Type: Reason For Visit ; Confirmation: Complaint of ; Clinical Dx: Throat pain - Pediatric ; Classification: Medical ; Clinical Service: Emergency medicine ; Code: PNED ; Probability: 0 ; Diagnosis Code: [id number] Triage Chief Complaint Description : sore throat pain . HX of mono diagnosis last tuesday Mode of Arrival ED : Private vehicle Track : Medical Languages : British KRISTIN WOODS RN - 12/12/2011 7:15 CDT [...] WOODS RN - 12/12/2011 7:15 CDT [facility] Document Id: [id number] CDT!44 documented in this encounter ED Notes Kristin Woods R.N. - 12/12/2011 8:12 AM CDT ED Disposition Summary ED Disposition Summary Entered On: 12/12/2011 8:12 CDT Performed On: 12/12/2011 8:12 CDT by KRISTIN WOODS RING CUTTER LATHE OPERATOR Disposition Summary Accompanied By : Mother Mode of Discharge : Ambulatory Transportation : Private vehicle Printed Discharge Instructions Given to Patient : Yes Patient Status at Discharge from ED : Unchanged KRISTIN WOODS RN - 12/12/2011 8:12 CDT Source: [employer] Document Id: [id number] CDT!7 Betzaida Kahn M.D. - 12/12/2011 7:31 [...] Ibuprofen or tylenol. Patient was diagnosed with Bayamon last Tuesday. History of Present Illness The [...] primary or secondary; younger than age 12 ([address]) in 1999 at 5 Years. Social history: [...] KAHN MD On: 12/12/2011 08:17 AM Source: [facility] [employer] Document Id: [id number]} Kristin Woods, R.N. - 12/12/2011 7:12 AM CDT ED Triage Assessment ED Triage Assessment Entered On: 12/12/2011 7:15 CDT Performed On: 12/12/2011 7:12 CDT by KRISTIN WOODS RN Reason For Visit Problems(Active) Allergic asthma NOS with status asthmaticus Name of Problem: Allergic asthma NOS with status asthmaticus ; Recorder: JENNIFER ARCHIBALD LPN; Confirmation: Confirmed ; Classification: Nursing ; Code: 1231 ; Contributor System: [employer] ; Last Updated: 09/29/2010 17:17 RUBBER MOULDING MACHINE OPERATOR ; Life Cycle Date: 09/29/2010 [...] Nursing ; Code: 1231 ; Contributor System: [employer] ; Last Updated: 09/29/2010 14:18 RUBBER MOULDING MACHINE OPERATOR ; Life Cycle Date: 09/15 ; Life Cycle Status: Active ; Responsible Provider: JENNIFER ARCHIBALD LPN; Vocabulary: ICD-9-CM Diagnoses(Active) Throat pain - Pediatric Date: 12/12/2011 ; Diagnosis Type: Reason For Visit ; Confirmation: Complaint of ; Clinical Dx: Throat pain - Pediatric ; Classification: Medical ; Clinical Service: Emergency medicine ; Code: PNED ; Probability: 0 ; Diagnosis Code: [id number] Triage Chief Complaint Description : 16 year old female admitted to ER with complaints of sore throat not relieved with Ibuprofen or tylenol. Patient was diagnosed with Bayamon last Tuesday. Information Given By : Mother Accompanied By : Mother Mode of Arrival ED : Private vehicle Track : Medical Languages : British Vital Signs Assessed : Yes Treatments Prior [...] LPN; Reviewed Date: 12/07/2011 9:04 CDT Source: [facility] [employer] Document Id: [id number] CDT!33 documented in this encounter Miscellaneous Notes Miscellaneous - Kristin Woods R.N. - 12/12/2011 8:12 AM CDT Valuables/Belongings Valuables/Belongings Entered On: 12/12/2011 8:12 CDT Performed On: 12/12/2011 8:12 CDT by KRISTIN WOODS RN Valuables/Belongings Belongings Sent Home With : sent home with patient Home Medication Disposition : None brought in with patient KRISTIN WOODS RN - 12/12/2011 8:12 CDT Source: [facility] [employer] Document Id: [id number] CDT!4 Miscellaneous - Kristin Woods R.N. - [...] Control : 5 Lynx Visit Level : 58176 Level 3 Treatments Prior to Arrival : Other: Tylenol at 0330. KRISTIN WOODS RN - 12/12/2011 8:12 CDT Chief Complaint 8.50.02 Reason For Visit Category : EENT and dental ED Chief Complaint EENT and Dental 8.5 : Throat pain TVL Calc : 8 TVL for Facility Charge Ticket Dx : Level 3 KRISTIN WOODS RN - 12/12/2011 8:12 CDT Source: [employer] Document Id: [id number] CDT!18 documented in this encounter Plan of Treatment Not on filedocumented as of this encounter Visit Diagnoses Not on filedocumented in this encounter
--- OUTSIDE RECORDS SUMMARY | 2022-07-06 10:30 | XMS_ITS | Encounter Summary ---
:1995 Author Organization [facility] Address [address] [place] [address] Care Team Providers Name Role Phone Unavailable Primary Care Provider Unavailable Encounter Details Date Type Department Care Team Description 03/19/2013 Hospital Encounter HX [facility] FAMILY ME Stephanie Ge [...] How often do you attend synagogue or mormon Never 10/23/2020 services? 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 - 03/19/2013 12:46 PM CDT [id number] CHIEF COMPLAINT/REASON FOR VISIT Dhiraj is here [...] process she will letus know. Stephanie Ge M.D./[facility] Electronically Signed By: STEPHANIE GE MD On: 03/19/2013 04:18 PM Source: [facility] MHSDOLBEYNONRADSYS Document Id: [id number] documented in this encounter Procedure Notes Jennifer [...] MEDELLIN LPN - 03/20/2013 11:35 CDT Source: [facility] POWERCHART Document Id: [id number] CDT!8 documented in this encounter Miscellaneous Notes [...] MEDELLIN LPN - 03/20/2013 11:38 CDT Source: [facility] CNS [employer]CHART Document Id: [id number] CDT!7 Miscellaneous - Stephanie Ge M.D. - 03/19/2013 1:34 PM CDT Ambulatory Patient Summary [address] [id number] Visit Information Name: DHIRAJ LANDA [facility] Number: [id number] Current Date: 03/19/2013 13:34:20 [...] No Appointments found Your Goals/Additional instructions: Source: [facility] POWERCHART Document Id: [id number] Miscellaneous - Stephanie Ge M.D. - 03/19/2013 1:34 PM CDT Ambulatory Depart Summary [address] [address] Visit Information Name: DHIRAJ LANDA [facility] Number: [id number] Visit Date: 03/19/2013 13:34:20 [...] your provider for clarification. Additional Information: Source: [facility] POWERCHART Document Id: [id number] Miscellaneous - Dorian Davenport, L.P.N. - 03/19/2013 1:00 PM CDT Adult Database Technician Intake/History Adult Database Technician Intake/History Entered On: 03/19/2013 13:03 CDT Performed [...] Preferred Communication Mode : Verbal Languages : Romanian DORIAN DAVENPORT LPN - 03/19/2013 13:00 CDT [...] DAVENPORT LPN - 03/19/2013 13:00 CDT Source: [employer] Document Id: [id number] CDT!41 Miscellaneous - Dorian Davenport, L.P.N. - [...] DAVENPORT LPN - 03/19/2013 13:00 CDT Source: [employer] Document Id: [id number] CDT!32 documented in this encounter Plan of Treatment Not on filedocumented as of this encounter Visit Diagnoses Not on filedocumented in this encounter
--- OUTSIDE RECORDS SUMMARY | 2022-07-06 10:30 | XMS_ITS | Encounter Summary ---
:1995 Author Organization [facility] Address [address] [place] [address] Care Team Providers Name Role Phone Unavailable Primary Care Provider Unavailable Encounter Details Date Type Department Care Team Description 07/29/2011 Hospital Encounter HX [facility] FAMILY ME Heather Obando, TOBI, C.N.P., D. N.P. [address] [place] [address] (Wo rk) Social History Tobacco [...] How often do you attend amish or sikhism Never 10/23/2020 services? 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 - 07/29/2011 12:00 AM CST [id number] CHIEF COMPLAINT/REASON FOR VISIT Left ear pain. [...] that she has not been using any ztoa-dar-qgmnued medication to help with her symptoms and states that her family members have similar upper respiratory infection like symptoms as well. PAST MEDICAL/SURGICAL HISTORY Past medical, surgical history reviewed. Please see chart. CURRENT MEDICATIONS Reviewed. Please see chart. ALLERGIES Reviewed. Please see chart. PHYSICAL EXAMINATION PHYSICAL EXAM OBJECTIVE: Patient is alert, well-nourished, acting appropriately for age. HEAD: Normocephalic/atraumatic. PUPILS: MARY. OROPHARYNX: [place] and moist. EARS: The left tympanic membrane [...] the left eustachian tube area, taking Sudafed goep-jfa-mzrczqq as directed on package p.r.n. as a [...] per mother's request) that was sent to [facility] though indicating only to fill per parent [...] DNP, FNP On: 08/10/2011 11:46 AM Source: [facility] MHSDOLBEYNONRADSYS Document Id: [id number] L OPPORTUNITY ASSISTANT documented in this encounter Miscellaneous Notes Miscellaneous - Heather Obando D.N.P., C.N.P. - 07/29/2011 5:20 PM EQUAL OPPORTUNITY ASSISTANT Ambulatory Patient Summary [address] [place] [address] Visit Information Name: DHIRAJ LANDA Current Date: [...] No Appointments found Your Goals/Additional instructions: Source: [facility] POWERCHART Document Id: [id number] L OPPORTUNITY ASSISTANT Miscellaneous - Heather Obando D.N.P., C.N.P. - 07/29/2011 5:20 PM EQUAL OPPORTUNITY ASSISTANT Ambulatory Depart Summary [address] [place] [address] Visit Information Name: DHIRAJ LANDA Current Date: 07/29/2011 17:20:24 Physicians Attending Physician: HEATHER OBANDO DNP, MUSICAL INSTRUMENT MAKER Primary Care Provider: JAMARI MCHUGH MD AILYN [...] to the patient and/or family, guardian/caregiver. Source: [facility] POWERCHART Document Id: [id number] L OPPORTUNITY ASSISTANT Miscellaneous - Heather Obando D.N.PGonzalo, C.N.P. - 07/29/2011 5:19 PM EQUAL OPPORTUNITY ASSISTANT Quality Measures Quality Measures Entered On: 07/29/2011 17:19 EQUAL OPPORTUNITY ASSISTANT Performed On: 07/29/2011 17:19 EQUAL OPPORTUNITY ASSISTANT by HEATHER OBANDO DNP, FNP Asthma Asthma Control Test (ACT) Score : 20 HEATHER OBANDO DNP, FNP - 07/29/2011 17:19 EQUAL OPPORTUNITY ASSISTANT Source: [facility] [employer] Document Id: [id number] EQUAL OPPORTUNITY ASSISTANT!3 L OPPORTUNITY ASSISTANT Miscellaneous - Conversion, Historical Provider Ser - 07/29/2011 4:51 PM EQUAL OPPORTUNITY ASSISTANT Pediatric Mixer Diamond Powder Intake/History Pediatric Mixer Diamond Powder Intake/History Entered On: 07/29/2011 16:53 EQUAL OPPORTUNITY ASSISTANT Performed On: 07/29/2011 16:51 EQUAL OPPORTUNITY ASSISTANT by ERWIN COLON LPN Intake Chief Complaint [...] 74.50kg ERWIN COLON LPN - 07/29/2011 16:51 EQUAL OPPORTUNITY ASSISTANT Subjective Pain Symptoms : Yes ERWIN COLON LPN - 07/29/2011 16:51 EQUAL OPPORTUNITY ASSISTANT Pain Pain Assessment Grid Pain 1 Location : Ear Laterality : Left Intensity : 3 ERWIN COLON LPN - 07/29/2011 16:51 EQUAL OPPORTUNITY ASSISTANT Dependent Habits Tobacco Use/Currently Using : No Smoking Status : Never smoker ERWIN COLON LPN - 07/29/2011 16:51 EQUAL OPPORTUNITY ASSISTANT Caffeine Use Grid Caffeine Use : Current Type : Soft drinks Frequency : Daily ERWIN COLON LPN - 07/29/2011 16:51 EQUAL OPPORTUNITY ASSISTANT Recreational Drug Use Grid Drug Use : None ERWIN COLON LPN - 07/29/2011 16:51 EQUAL OPPORTUNITY ASSISTANT Allergy Allergies (Active) Suprax Estimated Onset Date: Unspecified ; Created By: JENNIFER ARCHIBALD LPN; Reaction Status: Active ; Category: Drug ; Substance: Suprax ; Type: Allergy ; Updated By: JENNIFER ARCHIBALD LPN; Reviewed Date: 10/23/2010 9:07 EQUAL OPPORTUNITY ASSISTANT Source: [facility] [employer] Document Id: [id number] EQUAL OPPORTUNITY ASSISTANT!30 documented in this encounter Plan of Treatment Not on filedocumented as of this encounter Visit Diagnoses Not on filedocumented in this encounter
--- OUTSIDE RECORDS SUMMARY | 2022-07-06 10:30 | XMS_ITS | Encounter Summary ---
:1995 Author Organization [facility] Address [address] [place] [address] Care Team Providers Name Role Phone Unavailable Primary Care Provider Unavailable Encounter Details Date Type Department Care Team Description 04/28/2012 Hospital Encounter HX [facility] ME Stephanie Ge M.D. [...] How often do you attend zoroastrian or congregation Never 10/23/2020 services? 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 - 04/28/2012 3:34 PM CDT [id number] REVISION HISTORY Dictated on 05/01/2012 at 6:37 [...] did talk about possible risks and benefits. [place] precautions were observed. The area on her [...] GE MD On: 05/05/2012 07:48 AM Source: [facility] MHSDOLBEYNONRADSYS Document Id: [id number] documented in this encounter Miscellaneous Notes Miscellaneous - Stephanie Ge M.D. - 04/28/2012 5:21 PM CDT Ambulatory Patient Summary [id number] [place] [address] Visit Information Name: DHIRAJ LANDA Current Date: [...] Date Time Location Reason Provider 05/01/2012 17:30 [facility] Family Med follow up Stephanie Ge MD Your Goals/Additional instructions: Source: [facility] POWERCHART Document Id: [id number] Miscellaneous - Stephanie Ge M.D. - 04/28/2012 5:21 PM CDT Ambulatory Depart Summary [address] [address] Visit Information Name: GORDOSTEPHDHIRAJ WRIGHT PAWEL Visit [...] your provider for clarification. Additional Information: Source: [facility] POWERCHART Document Id: [id number] Miscellaneous - Juana Dennison L.PGonzaloNGonzalo - 04/28/2012 3:40 PM CDT Pediatric Manufacturer Intake/History Pediatric Manufacturer Intake/History Entered On: 04/28/2012 15:42 CDT Performed [...] LPN; Reviewed Date: 04/26/2012 22:24 CDT Source: [facility] POWERCHART Document Id: [id number] documented in this encounter Plan of Treatment Not on filedocumented as of this encounter Procedures Procedure Name Priority Date/Time Associated Diagnosis Comme nts BACTERIAL CULTURE, Routine 04/28/2012 4:30 PM Res ults for this AEROBIC CDT procedure are i n the results section. documented in this encounter Results (ABNORMAL) Bacterial Culture, Aerobic (04/28/2012 4:30 PM CDT) Component Value Ref Test Analysis Performed At [facility] gist Range Method Time Signature Organism (POSITIVE) [...]
--- OUTSIDE RECORDS SUMMARY | 2022-07-06 10:30 | XMS_ITS | Encounter Summary ---
:1995 Author Organization [facility] Address [address] [place] [address] Care Team Providers Name Role Phone Unavailable Primary Care Provider Unavailable Encounter Details Date Type Department Care Team Description 06/01/2013 Hospital Encounter HX [facility] OBGYN Provider, Histor ical Social History Tobacco [...] How often do you attend amish or restorationism Never 10/23/2020 services? 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 Vianey Ceja MD Source: [facility] RWHXTRANSXRTFSYS Document Id: [id number] documented in this encounter Plan of Treatment Not on filedocumented as of this encounter Procedures Procedure Name Priority Date/Time Associated Comments Diagnosis HUMAN CHORIONIC Routine 06/01/2013 12:26 Results for this GONADOTROPIN (HCG), PM CDT procedur e are in IRASEMA, the results section. documented in this encounter Results hCG (Human Chorionic Gonadotropin), Quantitative, (06/01/2013 12:26 PM CDT) P athologist Signature Beta-HCG, [id number] [facility], [employer] SYSTEM S LAB Specimen (Source) Anatomical Collection Method Collection Time Re ceived Time Location / / Volume Laterality 06/01/2013 12:26 PM CDT Narrative [facility] - 10/12/19 14 11:11 PM SUPERVISOR PAYROLL Non- ?0 - 5 , weeks from LMP: 1 - 10 weeks ? 64 - 151,000 IU/L 11 - 15 weeks 11,800 - 152,000 IU/L 16 - 22 weeks ??9,380 - 61,400 IU/L 23 - 40 weeks ??1,740 - 98,600 IU/L Specimen run with a dilution Historical Provider LAB BLOOD ADD-ON Performing Organization Address City/State/ZIP Code Phon e Number [facility] documented in this encounter Visit Diagnoses Not on filedocumented in this encounter
--- OUTSIDE RECORDS SUMMARY | 2022-07-06 10:30 | XMS_ITS | Encounter Summary ---
:1995 Author Organization [facility] Address [address] [place] [address] Care Team Providers Name Role Phone Unavailable Primary Care Provider Unavailable Encounter Details Date Type Department Care Team Description 10/05/2010 Hospital Encounter HX [facility] [place] Johnnie Mchugh M.D. [address] [place] [phone] (Wo rk) Social History Tobacco Use Types [...] How often do you attend denominational or christian Never 10/23/2020 services? Do you [...] Date Recorded Female 08/12/2017 10:51 AM SUPERVISOR SAFETY DEPOSIT documented as of this encounter Medications at Time of Discharge Medication Sig Dispensed Refills Start Date End Date albuterol (for_ACCUNEB) one unit dose qid 0 12/0409/25/2018 2.5 mg /3 mL nebulizer and q2hr prn solution documented as of this encounter Progress Notes Jamari Mchugh M.D. - 10/05/2010 12:00 AM CST [id number] CHIEF COMPLAINT/REASON FOR VISIT: 15 -year-old female [...] JAMARI MCHUGH MD On: 10/05/2010 02:55 Source: [facility] BINASDOLBEYNNEIL Document Id: [id number] RVISOR SAFETY DEPOSIT documented in this encounter Miscellaneous Notes Miscellaneous - Jennifer Medellin L.P.N. - 10/05/2010 9:09 AM CST Adult Insurance Risk Manager Intake/History Adult Insurance Risk Manager Intake/History Entered On: 10/05/2010 9:11 SUPERVISOR SAFETY DEPOSIT Performed On: 10/05/2010 9:09 SUPERVISOR SAFETY DEPOSIT by JENNIFER EMDELLIN LPN Intake Chief Complaint: fever cough sob Onset of Symptoms: 2 days Temperature Oral: 38.4C(Converted to: 101.1DegF) (>HHI) Peripheral Pulse Rate: 128/min (HI) Respiratory Rate: 22/min (HI) SpO2: 97% Heart Rhythm: Regular Oxygen Therapy: Room air JENNIFER MEDELLIN LPN - 10/05/2010 9:09 SUPERVISOR SAFETY DEPOSIT Subjective Pain Symptoms: No JENNIFER MEDELLIN LPN - 10/05/2010 9:09 SUPERVISOR SAFETY DEPOSIT Dependent Habits Tobacco Use/Currently Using: No Tobacco Use/Last 12 months: No Tobacco Use/Advised to Quit: No JENNIFER MEDELLIN LPN - 10/05/2010 9:09 SUPERVISOR SAFETY DEPOSIT Allergies Allergies (Active) Suprax Estimated Onset Date: Unspecified ; Created By: JENNIFER MEDELLIN LPN; Reaction Status: Active ; Category: Drug ; Substance: Suprax ; Type: Allergy ; Updated By: JENNIFER MEDELLIN LPN; Reviewed Date: 09/29/2010 17:16 SUPERVISOR SAFETY DEPOSIT Source: [facility] POWERCHART Document Id: [id number] SUPERVISOR SAFETY DEPOSIT!16 RVISOR SAFETY DEPOSIT documented in this encounter Plan of Treatment Not on filedocumented as of this encounter Visit Diagnoses Not on filedocumented in this encounter
--- OUTSIDE RECORDS SUMMARY | 2022-07-06 10:30 | XMS_ITS | Encounter Summary ---
:1995 Author Organization [facility] Address [address] [place] [address] Care Team Providers Name Role Phone Unavailable Primary Care Provider Unavailable Encounter Details Date Type Department Care Team Description 05/08/2012 Hospital Encounter HX [facility] [place] Aleida Mejia M.D. Social [...] How often do you attend christianity or pentecostal Never 10/23/2020 services? 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 documented as of this encounter Medications [...] : Right Description : Drainage/Exudate Color : [place] Drainage : Purulent Drainage Amount : Small Surrounding Tissue : Healthy (Comment: red and bruised [EMBER BETHEA LPN - 05/08/2012 16:47 CDT] ) Wound Dressing : Other: Area packed with nugauze and covered with 3x3 and burn netting applied to upper thigh area EMBER BETHEA LPN - 05/08/2012 16:47 CDT [facility] Document Id: [id number] documented in this encounter Plan of Treatment Not on filedocumented as of this encounter Visit Diagnoses Not on filedocumented in this encounter
--- OUTSIDE RECORDS SUMMARY | 2022-07-06 10:30 | XMS_ITS | Encounter Summary ---
:1995 Author Organization [facility] Address [address] [place] [address] Care Team Providers Name Role Phone Unavailable Primary Care Provider Unavailable Encounter Details Date Type Department Care Team Description 04/14/2013 Hospital Encounter [facility] [place] Kelvin Greer M.D. [address] [place] [phone] (Wo rk) Social History Tobacco Use Types [...] How often do you attend scientologist or yazdanism Never 10/23/2020 services? 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 - 04/14/2013 8:42 AM CDT [id number] CHIEF COMPLAINT/REASON FOR VISIT Sore throat in [...] GREER MD On: 04/15/2013 08:35 AM Source: [facility] MHSDOLBEYNONRADSYS Document Id: [id number] documented in this encounter Miscellaneous Notes Miscellaneous [...] you ordered q48h . Please advise Source: [facility] Document Id: [id number] Miscellaneous - Betzaida Kahn M.D. - 04/21/2013 [...] well with this option. Nadeem PEREZ Source: [employer] Document Id: [id number] Miscellaneous - Daniela Tan RChristy - 04/18/2013 [...] would like prescription for Diflucan sent to [facility]. Please consider and send rx if you agree. Pt phone [phone] Source: [facility] POWERCHART Document Id: [id number] Electronically signed by Conversion, [facility] Swimming Instructor [id number] at 01/12/2017 2:38 AM CDT Miscellaneous - Sebastian Greer M.D. - 04/14/2013 9:28 AM CDT Ambulatory Depart Summary [address] [address] Visit Information Name: GORDOSTEPHDHIRAJ WRIGHT PAWEL [facility] Number: [id number] Visit Date: 04/14/2013 09:28:56 Attending [...] clarification. Additional Information: Yes - . Source: [facility] POWERCHART Document Id: [id number] Miscellaneous - Sebastian Greer M.D. - 04/14/2013 9:28 AM CDT Ambulatory Patient Summary [id number] [place] [address] Visit Information Name: DHIRAJ JOSEPH [facility] Number: [id number] Current Date: 04/14/2013 09:28:57 Physicians [...] [facility] Document Id: [id number] Miscellaneous - Juana Dennison LGonzaloPGonzaloNGonzalo - 04/14/2013 8:58 AM CDT Adult Pipelayer Intake/History Adult Pipelayer Intake/History Entered On: 04/14/2013 9:00 CDT Performed [...] Information Given By : Patient Languages : Icelandic JUANA DENNISON - 04/14/2013 8:58 CDT Subjective [...] JUMA JUANA - 04/14/2013 8:58 CDT Source: [facility] POWERCHART Document Id: [id number]!39 documented in this encounter Plan of [...] Strep A Screen (04/14/2013 9:05 AM CDT) [facility] [employer] Method Time Signature HXRapid Strep POWERCHART Confirmation HXPre Negative for POWERCHART Group A Strep by culture. HXFinal Negative for POWERCHART Group A Strep by culture. Specimen Anatomical Collection Method Collection Time Receive d Time (Source) Location / / Volume Laterality Throat 04/14/2013 9:05 AM 3 9:05 CDT AM CDT Sebastian Greer M.D. LAB MICROBIOLOGY - GENERAL O GILBERTO Performing Organization Address City/[facility] Code Phon e Number POWERCHART Rapid Strep A Screen (04/14/2013 9:05 AM CDT) [facility] [employer] Method Time Signature HXStrep A POWERCHART Screen Rapid HXFinal Negative for POWERCHART Strep Group A by rapid screen. HXFinal Culture POWERCHART confirmation to follow. Specimen (Source) Anatomical Collection Method Collection Time Re ceived Time Location / / Volume Laterality Throat 04/14/2013 9:05 AM CDT Sebastian Greer M.D. LAB MICROBIOLOGY - GENERAL O GILBERTO Performing Organization Address City/[facility]/ZIP Code Phon e Number POWERCHART documented in this encounter Visit Diagnoses Not on filedocumented in this encounter
--- OUTSIDE RECORDS SUMMARY | 2022-07-06 10:30 | XMS_ITS | Encounter Summary ---
:1995 Author Organization [facility] Address [address] [place] [address] Care Team Providers Name Role Phone Unavailable Primary Care Provider Unavailable Encounter Details Date Type Department Care Team Description 05/30/2013 Hospital Encounter HX [facility] Iva Sam, SHAYE N, C.N.P. [address] [place], [place] [phone] (Wo rk) Social History [...] How often do you attend taoist or protestant Never 10/23/2020 services? 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 Source: [facility] RWHXTRANSXRTFSYS Document Id: [id number] Telephone Encounter - Hailey Jang R.N. - 05/30/2013 12:00 AM CDT [id number] Triage/Phone Nurse: 'How many periods have you [...] happy to assist you with this. Source: [facility] Document Id: [id number] Electronically signed by Stuart, [facility] Filler Shaker [id number] at 01/10/2017 8:48 PM CDT documented in this encounter Plan of Treatment Not on filedocumented as of this encounter Visit Diagnoses Not on filedocumented in this encounter
--- OUTSIDE RECORDS SUMMARY | 2022-07-06 10:31 | XMS_ITS | Encounter Summary ---
:1995 Author Organization [facility] Address [address] [place] [address] Care Team Providers Name Role Phone Unavailable [...] How often do you attend hindu or scientology Never 10/23/2020 services? 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
--- OUTSIDE RECORDS SUMMARY | 2022-07-06 10:31 | XMS_ITS | Encounter Summary ---
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
--- OUTSIDE RECORDS SUMMARY | 2022-07-06 10:31 | XMS_ITS | Encounter Summary ---
:1995 Author Organization [facility] Address [address] [place] [address] Care Team Providers Name Role Phone Unavailable Primary Care Provider Unavailable Encounter Details Date Type Department Care Team Description 12/05/2003 Hospital Encounter [facility]X [facility] INTERNMED Rick Downey M.D. [address] [place] [phone] (Wo rk) Social History Tobacco [...] How often do you attend mosque or sikh Never 10/23/2020 services? Do you [...] at Date Recorded Female 08/12/2017 10:51 AM PIZZA DELIVERY documented as of this encounter Medications at Time of Discharge Medication Sig Dispensed Refills Start Date End Date albuterol (for_ACCUNEB) one unit dose qid 0 12/0409/25/2018 2.5 mg /3 mL nebulizer and q2hr prn solution documented as of this encounter Progress Notes Conversion, Historical Provider Ser - 12/05/2003 5:30 PM CDT [id number] Addended by: JANENE ARREOLA on: 12/10/2003,2:29 PM Comment: TranscriptionModules accepted: Prog ress NotesSUBJECTIVE: The patient is an 8-year-old female who is sent by Dr. Paras Galvan from [facility] for evaluation of chronic nasal congestion associated with recent episodes of wheezing and difficulty breathing. Mother states that about one month ago Carly had the gradual onset of short ness of breath and difficulty breathing that became quite severe and resulted in her going to the [facility] room in [place]. In the ER she was given two [...] 12/10/2003 CC : Dr. Paras Galvan Source: [facility] RWHXTRANSXSYS Document Id: [id number] documented in this encounter Miscellaneous Notes Miscellaneous - Conversion, Historical Provider Ser - 12/05/2003 5:30 PM CDT [id number] December 05, 2003 Paras Galvan M.D. [address] [address] Dear Paras: I had the opportunity to [...] questions. Sincerely, Tang Downey M.D. RAND/kiran Source: [facility] RWHXTRANSXRTFSYS Document Id: [id number] documented in this encounter Plan of Treatment Not on filedocumented as of this encounter Visit Diagnoses Not on filedocumented in this encounter
--- OUTSIDE RECORDS SUMMARY | 2022-07-06 10:31 | XMS_ITS | Encounter Summary ---
:[address] [facility] Address [address] [place] [address] Care Team Providers Name Role Phone Unavailable [...] How often do you attend confucianist or cheondoism Never 10/23/2020 services? 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
--- OUTSIDE RECORDS SUMMARY | 2022-07-06 10:31 | XMS_ITS | Encounter Summary ---
:1995 Author Organization [facility] Address [address] [place] [address] Care Team Providers Name Role Phone Unavailable Primary Care Provider Unavailable Encounter Details Date Type Department Care Team Description 09/29/2010 Hospital Encounter HX [facility] [place] Johnnie Mchugh M.D. [address] [place] [phone] (Wo rk) Social History Tobacco Use Types [...] How often do you attend holiness or synagogue Never 10/23/2020 services? 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 - 09/29/2010 12:00 AM CST [id number] IMPRESSION/REPORT/PLAN Right otitis media. Patient was given [...] JAMARI MCHUGH MD On: 09/30/2010 09:04 Source: [facility] MHSDOLBEYNONRADSYS Document Id: [id number] UCTION GEAR CUTTER documented in this encounter Miscellaneous Notes Miscellaneous - Jamari Mchugh M.D. - 09/29/2010 5:39 PM CST Ambulatory Patient Summary [facility] - [address] [address] Visit Information Name: DHIRAJ LANDA Current Date: [...] No Appointments found Your Goals/Additional instructions: Source: [facility] POWERCHART Document Id: [id number] Electronically signed by Conversion, [facility] Needle Loom Operator [id number] at 01/16/2017 11:42 AM CDT Miscellaneous - Jamari Mchugh M.D. - 09/29/2010 5:39 PM CST Ambulatory Depart Summary [facility] - [address] [address] Visit Information Name: GORDOSTEPHLIZY WRIGHTALYN [...] to the patient and/or family, guardian/caregiver. Source: [facility] POWERCHART Document Id: [id number] Miscellaneous - Jennifer Medellin L.P.N. - 09/29/2010 5:17 PM CST Adult Mannequin Sander And Finisher Intake/History Adult Mannequin Sander And Finisher Intake/History Entered On: 09/29/2010 17:20 PRODUCTION GEAR CUTTER Performed On: 09/29/2010 17:17 PRODUCTION GEAR CUTTER by JENNIFER MEDELLIN LPN Intake Chief Complaint: right ear pain and drainage st sinus drainage Onset of Symptoms: 8 hours Temperature Oral: 37.4C(Converted to: 99.3DegF) Peripheral Pulse Rate: 88/min Respiratory Rate: 16/min Systolic Blood Pressure: 118mmHg Diastolic Blood Pressure: 62mmHg NIBP Mean: 81mmHg BP Location: Right upper extremity Heart Rhythm: Regular JENNIFER MEDELLIN LPN - 09/29/2010 17:17 PRODUCTION GEAR CUTTER Subjective Pain Symptoms: Yes JENNIFER MEDELLIN LPN - 09/29/2010 17:17 PRODUCTION GEAR CUTTER Pain Pain Assessment Grid Pain 1 Location: Ear Intensity: 3 JENNIFER MEDELLIN LPN - 09/29/2010 17:17 PRODUCTION GEAR CUTTER Dependent Habits Tobacco Use/Currently Using: No Tobacco Use/Last 12 months: No Tobacco Use/Advised to Quit: No JENNIFER MEDELLIN LPN - 09/29/2010 17:17 PRODUCTION GEAR CUTTER Allergies Allergies (Active) Suprax Estimated Onset Date: Unspecified ; Created By: JENNIFER MEDELLIN LPN; Reaction Status: Active ; Category: Drug ; Substance: Suprax ; Type: Allergy ; Updated By: JENNIFER MEDELLIN LPN; Reviewed Date: 09/29/2010 17:16 PRODUCTION GEAR CUTTER Source: [facility] [employer] Document Id: [id number] PRODUCTION GEAR CUTTER!23 UCTION GEAR CUTTER documented in this encounter Plan of Treatment Not on filedocumented as of this encounter Visit Diagnoses Not on filedocumented in this encounter
--- OUTSIDE RECORDS SUMMARY | 2022-07-06 10:31 | XMS_ITS | Encounter Summary ---
:1995 Author Organization [facility] Address [address] [place] [address] Care Team Providers Name Role Phone Unavailable Primary Care Provider Unavailable Encounter Details Date Type Department Care Team Description 04/13/2007 Hospital Encounter HX [facility] Tavares, INPT/OBSRV M.D. [address] [phone] (Wo rk) Social History Tobacco Use Types [...] often do you attend latter day or moravian Never 10/23/2020 services? 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
--- OUTSIDE RECORDS SUMMARY | 2022-07-06 10:31 | XMS_ITS | Encounter Summary ---
:1995 Author Organization [facility] Address [address] [place] [address] Care Team Providers Name Role Phone Unavailable [...] Recorded Female 08/12/2017 10:51 AM DIRECTOR OF PROPERTY MANAGEMENT documented as of this encounter Medications at [...]
--- OUTSIDE RECORDS SUMMARY | 2022-07-06 10:31 | XMS_ITS | Encounter Summary ---
:1995 Author Organization [facility] Address [address] [place] [address] Care Team Providers Name Role Phone Unavailable Primary Care Provider Unavailable Encounter Details Date Type Department Care Team Description 08/11/2007 Hospital Encounter HX [facility] IN[facility]OBS[facility] Kerry Galvan M.D. [address] [place] [address] (Wo rk) Social History Tobacco Use Types [...] How often do you attend scientologist or mandaen Never 10/23/2020 services? 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
--- OUTSIDE RECORDS SUMMARY | 2022-07-06 10:31 | XMS_ITS | Encounter Summary ---
:1995 Author Organization [facility] Address [address] [place] [address] Care Team Providers Name Role Phone Unavailable Primary Care Provider Unavailable Encounter Details Date Type Department Care Team Description 10/09/2007 Hospital Encounter HX [facility] INPT/OBSRV Armond Salguero M.D. [address] [place], [place] [address] (Wo rk) Social History [...] How often do you attend voodoo or moravian Never 10/23/2020 services? 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
--- OUTSIDE RECORDS SUMMARY | 2022-07-06 10:31 | XMS_ITS | Encounter Summary ---
:1995 Author Organization [facility] Address [address] [place] [address] Care Team Providers Name Role Phone Unavailable Primary Care Provider Unavailable Encounter Details Date Type Department Care Team Description 12/19/2008 Hospital Encounter HX [facility] INPT/OBSRV Kerry Galvan M.D. [address] [place] [address] (Wo rk) Social History Tobacco Use Types [...] How often do you attend rastafarian or mormonism Never 10/23/2020 services? 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
--- OUTSIDE RECORDS SUMMARY | 2022-07-06 10:31 | XMS_ITS | Encounter Summary ---
:1995 Author Organization [facility] Address [address] [place] [address] Care Team Providers Name Role Phone Unavailable [...] How often do you attend jewish or christian Never 10/23/2020 services? 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 Thanks [facility] dry folder cloth [facility]: [facility] Document Id: [id number] documented in this encounter Plan of Treatment Not on filedocumented as of this encounter Visit Diagnoses Not on filedocumented in this encounter
--- OUTSIDE RECORDS SUMMARY | 2022-07-06 10:31 | XMS_ITS | Encounter Summary ---
:1995 Author Organization [facility] Address [address] [place] [address] Care Team Providers Name Role Phone Unavailable Primary Care Provider Unavailable Encounter Details Date Type Department Care Team Description 06/10/2009 Hospital Encounter HX [facility] INPT/OBSRV Kerry Galvan M.D. 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
--- OUTSIDE RECORDS SUMMARY | 2022-07-06 10:31 | XMS_ITS | Encounter Summary ---
:1995 Author Organization [facility] Address [address] [place] [address] Care Team Providers Name Role Phone Unavailable Primary Care Provider Unavailable Encounter Details Date Type Department Care Team Description 09/13/2009 Hospital Encounter [facility]X [facility] INPT/OBSRV Kerry Galvan M.D. [address] [place] [address] (Wo rk) Social History Tobacco Use Types [...] How often do you attend spiritism or uatsdin Never 10/23/2020 services? 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
--- OUTSIDE RECORDS SUMMARY | 2022-07-06 10:31 | XMS_ITS | Encounter Summary ---
:1995 Author Organization [facility] Address [address] [place] [address] Care Team Providers Name Role Phone Unavailable Primary Care Provider Unavailable Encounter Details Date Type Department Care Team Description 06/28/2007 Hospital Encounter HX [facility] INPT/OBSRV Kerry Galvan M.D. [address] [place] [address] (Wo rk) Social History Tobacco Use Types [...] How often do you attend congregation or sabianism Never 10/23/2020 services? 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
--- OUTSIDE RECORDS SUMMARY | 2022-07-06 10:31 | XMS_ITS | Encounter Summary ---
:1995 Author Organization [facility] Address [address] [place] [address] Care Team Providers Name Role Phone Unavailable Primary Care Provider Unavailable Encounter Details Date Type Department Care Team Description 04/04/2007 Hospital Encounter HX [facility] Vin Tavares, INPT/OBSRV M.D. [id number] [place] [phone] (Wo rk) Social History Tobacco Use [...] How often do you attend baptism or christianity Never 10/23/2020 services? 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
--- OUTSIDE RECORDS SUMMARY | 2022-07-06 10:31 | XMS_ITS | Encounter Summary ---
:1995 Author Organization [facility] Address [address] [place] [address] Care Team Providers Name Role Phone Unavailable Primary Care Provider Unavailable Encounter Details Date Type Department Care Team Description 04/25/2007 Hospital Encounter HX [facility] Vin Tavares, INPT/OBSRV M.D. [address] [place] [phone] (Wo rk) Social History Tobacco Use [...] How often do you attend bahai or congregational Never 10/23/2020 services? 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
--- OUTSIDE RECORDS SUMMARY | 2022-07-06 10:31 | XMS_ITS | Encounter Summary ---
:1995 Author Organization [facility] Address [address] [place] [address] Care Team Providers Name Role Phone Unavailable [...] How often do you attend hoahaoism or adventist Never 10/23/2020 services? 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
--- OUTSIDE RECORDS SUMMARY | 2022-07-06 10:31 | XMS_ITS | Encounter Summary ---
:1995 Author Organization [facility] Address [address] [place] [address] Care Team Providers Name Role Phone Unavailable [...] How often do you attend orthodox or oriental orthodox Never 10/23/2020 services? [...] at Date Recorded Female 08/12/2017 10:51 AM WEEDER documented as of this encounter Miscellaneous Notes Miscellaneous - Conversion, Historical Provider Ser - 11/08/2003 12:00 AM WEEDER [id number] Addended by: CARLOS SANCHEZ on: 12/23/2003,4:02 PM Comment: PERTINENT INFORMATION ABSTRACTED INTO E NCOUNTER DATED 12-23-03, RECORDS FILED INTO PATIENT'S CHARTModules accepted: Progress NotesRECORDS RCVD [facility] CN[facility] SENT TO DR MOREAU 11-08-03 Source: [facility] RWHXTRANSXSYS Document Id: [id number] documented in this encounter Plan of Treatment Not on filedocumented as of this encounter Visit Diagnoses Not on filedocumented in this encounter
--- OUTSIDE RECORDS SUMMARY | 2022-07-06 10:31 | XMS_ITS | Encounter Summary ---
:1995 Author Organization [facility] Address [address] [place] [address] Care Team Providers Name Role Phone Unavailable Primary Care Provider Unavailable Encounter Details Date Type Department Care Team Description 07/01/2008 Hospital Encounter HX [facility] INPT/OBSRV Kerry Galvan M.D. 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
--- OUTSIDE RECORDS SUMMARY | 2022-07-06 10:31 | XMS_ITS | Encounter Summary ---
:1995 Author Organization [facility] Address [address] [place] [address] Care Team Providers Name Role Phone Unavailable Primary Care Provider Unavailable Encounter Details Date Type Department Care Team Description 12/11/2007 Hospital Encounter HX [facility] CAM INPT/OBSRV Aleida Mejia M.D. Social History [...] How often do you attend buddhism or holiness Never 10/23/2020 services? 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
--- OUTSIDE RECORDS SUMMARY | 2022-07-06 10:31 | XMS_ITS | Encounter Summary ---
:1995 Author Organization [facility] Address [address] [place] [address] Care Team Providers Name Role Phone Unavailable [...] How often do you attend samaritan or adventist Never 10/23/2020 services? 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
--- OUTSIDE RECORDS SUMMARY | 2022-07-06 10:31 | XMS_ITS | Encounter Summary ---
:1995 Author Organization [facility] Address [address] [place] [address] Care Team Providers Name Role Phone Unavailable Primary Care Provider Unavailable Encounter Details Date Type Department Care Team Description 05/21/2010 Hospital Encounter HX [facility] INPT/OBSRV Rodrigo Reyes M.D. [address] [place] [address] (Wo rk) Social History Tobacco Use Types [...] How often do you attend shinto or temple Never 10/23/2020 services? 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
--- OUTSIDE RECORDS SUMMARY | 2022-07-06 10:32 | XMS_ITS | Clinical Summary ---
:1995 Author Organization [facility] [place] [address] Care Team Providers Name Role Phone Pcp, [...] Comments Blood Pressure 105/65 08/20/2013 3:12 PM SNAPPER ON Pulse 88 08/20/2013 3:12 PM SNAPPER ON Temperature 36.4 ??C (97.5 ??F) 08/20/2013 3:12 PM SNAPPER ON Respiratory Rate - - Oxygen Saturation 98% 03/22/2013 8:49 AM CDT Inhaled Oxygen Concentration - - Weight 76.2 kg (168 lb) 08/20/2013 3:12 PM SNAPPER ON Height 167.6 cm (5' 6) 08/20/2013 3:12 PM SNAPPER ON Body Mass Index 27.12 08/20/2013 3:12 PM SNAPPER ON Plan of Treatment Health Maintenance Due Date Last Done Comments COVID-19 vaccine series (#1) 1995 Tdap 2006 Depression screening for age 12+ 2007 HIV for age 15-65 2010 BMI (ht and wt on same day) for age 18+ 2013 Hepatitis C screening for age 18-79 2013 Tetanus booster 2015 Pap test for age 21-65 01/21/2016 Influenza for age 9-49 04/15/2022 Results Not on filefrom Last 3 Months Insurance Payer Benefit Plan / Subscriber ID Effective Dates Phone Addre ss Type Group BLUE CROSS BLUE CROSS OF [id number] 2013-Present [address] [place] [address] [facility] [employer] FARM [id number] 2013-Present [address] [place] [address] BLUE CROSS BLUE CROSS OF [id number] 2013-Present [address] [place] [address] Jason Joseph Motor Vehicle Self 1995 [address] (Home) [place] [address] Care Teams Ap Processor Relationship Specialty Start Date End Date Pcp, No PCP - General 05/29/13 .
== END 2022-07-06 09:57 | disposition home or self-care (01) ==
PROVIDERS: Visit Provider Registered Nurse
DX: Z34.83 Encounter for supervision of other normal pregnancy, third trimester (principal); Z3A.33 33 weeks gestation of pregnancy
CPT/HCPCS: 76816; 76819

== ENCOUNTER 2022-07-20 10:37 | Outpatient (CLI) | payer BC, OTHER, SELFPAY ==
--- OUTSIDE RECORDS SUMMARY | 2022-07-20 10:47 | XMS_ITS | Clinical Summary ---
:1995 Author Organization [facility] Address [address] [place] [address] Care Team Providers Name Role Phone Teresita Barkley M.D. Primary Care Provider Source Comments Patient records contain information from all sites at [facility]. For routine questions regarding patient records, call [phone] during business hours, M-F 8:00 AM - 5:00 PM Central Time. Record requests for emergency care only can be directed to [phone] at any time.[facility] Allergies Active Allergy Reactions Severity Noted [...] Added automatically from request for fracisco joseph [id number] Obesity Body Mass Index 30-39.9 Adult 02/19/2019 [...] How often do you attend rastafarian or mosque Never 10/23/2020 services? 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 Last Filed Vital Signs Vital Sign Reading Time Taken Comments Blood Pressure 131/88 10/26/2021 5:20 PM CDT Pulse 64 10/26/2021 5:20 PM CDT Temperature 36.3 ??C (97.3 ??F) 10/26/2021 5:20 PM CDT Respiratory Rate 17 10/26/2021 5:20 PM CDT Oxygen Saturation 97% 08/13/2021 8:26 AM BACKEND JAVA DEVELOPER Inhaled Oxygen Concentration - - Weight 122 kg (268 lb 1.3 oz) 10/26/2021 5:20 PM CDT Height 167.5 cm (5' 5.95) 10/24/2020 8:34 AM BACKEND JAVA DEVELOPER Body Mass Index 43.34 10/24/2020 8:34 AM BACKEND JAVA DEVELOPER Plan of Treatment Health Maintenance Due Date [...] history exists Medical Devices Implanted Type Area Old Testament Professor Device Shelf Model / Identifier Expiration Serial / Date Lot Scrw Lcd St Fthrd 3.5x12 - S204.012 - [id number] Ankle Left: Depuy Synthes 204.012 / Implanted: Qty: 2 on 02/20/2019 by Bruno Verde M.D. at [facility] Implant Ankle 204.012 / Scrw Dcp St Fthrd 3.5x10 - [id number] Hardware Left: Depuy Syn thes 204.010 / Implanted: Qty: 2 on 02/20/2019 by Bruno Verde M.D. at [facility] e.g. Ankle / pins/screws/ rods Insurance Payer Benefit Plan / Subscriber ID Effective Phone Address T ype Group Dates [facility] [facility] [id number] 2019-Prese [address] Medicaid HMO [place] [place] [address] [address] [place] [address] Care Teams Denier Control Operator Relationship Specialty Start Date End Date Teresita Barkley M.D. PCP - General 01/15/[address] [place] [phone]
--- OUTSIDE RECORDS SUMMARY | 2022-07-20 10:47 | XMS_ITS | Encounter Summary ---
:1995 Author Organization [facility] Address [address] [place] [address] Care Team Providers Name Role Phone Teresita Barkley M.D. Primary Care Provider Encounter Details Date Type Department Care Team Description 01/07/2022 Orders Only [facility] RN, Medicine, [place] C.N.P., D .N.P. [facility], [place] [phone] [place] [address] [phone] Social History Tobacco Use Types Packs/Day Years [...] How often do you attend amish or zoroastrian Never 10/23/2020 services? 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 PCP - General 01/15/[address] [place] [phone] documented as of this encounter
--- OUTSIDE RECORDS SUMMARY | 2022-07-20 10:47 | XMS_ITS | Encounter Summary ---
:1995 Author Organization [facility] Address [address] [place] [address] Care Team Providers Name Role Phone Ary Purcell P.A.-C., P.A. Primary Care Provider Unavaila ble Reason for Visit Reason Comments Med Refill Encounter Details Date Type Department Care Team Description 11/10/2021 Refill Department of Family Medicine, Vani Purcell, Med Refill [facility], in [place] Gabriel, P .A. 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 PCP - General 06/07/19 01/14/22 documented as of this encounter
--- OUTSIDE RECORDS SUMMARY | 2022-07-20 10:47 | XMS_ITS | Encounter Summary ---
:1995 Author Organization [facility] Address [address] [place] [address] Care Team Providers Name Role Phone Teresita Barkley M.D. Primary Care Provider Encounter Details Date Type Department Care Team Description 11/10/2021 Orders Only Department of [facility] Ary Purcell, Medicine, [place] P.A.-C., P.A. Clinic, in [address] [phone] Social History Tobacco Use [...] often do you attend oriental orthodox or druze Never 10/23/2020 services? 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 PCP - General 01/15/[address] [place] [phone] documented as of this encounter
--- OUTSIDE RECORDS SUMMARY | 2022-07-20 10:47 | XMS_ITS | Encounter Summary ---
:1995 Author Organization [facility] Address [address] [place] [address] Care Team Providers Name Role Phone Ary Purcell P.A.-C., P.A. Primary Care Provider Unavaila ble Reason for Visit Reason Comments Med Refill Encounter Details Date Type Department Care Team Description 01/07/2022 Refill Department of Family Medicine, Vani Purcell, Med Refill [facility], in [place] Gabriel, P .A. [address] [phone] Social History Tobacco Use [...] How often do you attend alevism or latter-day Never 10/23/2020 services? 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 PCP - General 06/07/19 01/14/22 documented as of this encounter
--- OUTSIDE RECORDS SUMMARY | 2022-07-20 10:47 | XMS_ITS | Encounter Summary ---
:1995 Author Organization [facility] Address [address] [place] [address] Care Team Providers Name Role Phone Teresita Barkley M.D. Primary Care Provider Encounter Details Date Type Department Care Team Description 12/09/2021 Orders Only Department of [facility] Ary Purcell, Medicine, [place] P.A.-C., P.A. Clinic, in [address] [phone] Social History Tobacco Use [...] How often do you attend evangelical or episcopal Never 10/23/2020 services? 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 PCP - General 01/15/[address] [place] [phone] documented as of this encounter
--- OUTSIDE RECORDS SUMMARY | 2022-07-20 10:47 | XMS_ITS | Encounter Summary ---
:1995 Author Organization [facility] Address [address] [place] [address] Care Team Providers Name Role Phone Teresita Barkley M.D. Primary Care Provider Encounter Details Date Type Department Care Team Description 10/26/2021 Orders Only Department of [facility] Ary Purcell, Medicine, [place] P.A.-C., P.A. Clinic, in [address] [phone] Social History Tobacco [...] How often do you attend bahai or denominational Never 10/23/2020 services? 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 PCP - General 01/15/[address] [place] [phone] documented as of this encounter
--- OUTSIDE RECORDS SUMMARY | 2022-07-20 10:47 | XMS_ITS | Encounter Summary ---
:1995 Author Organization [facility] Address [address] [place] [address] Care Team Providers Name Role Phone Teresita Barkley M.D. Primary Care Provider Reason for Visit Reason Comments Med Refill Encounter Details Date Type Department Care Team Description 03/16/2022 Refill Department of Family Medicine, Teresita Galarza M.D. Med Refill [facility], in [place] [address] [address] [place], [place] [phone] Social History Tobacco Use Types Packs/Day Years [...] How often do you attend evangelical or scientology Never 10/23/2020 services? 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 PCP - General 01/15/[id number] [place] [phone] documented as of this encounter
--- OUTSIDE RECORDS SUMMARY | 2022-07-20 10:47 | XMS_ITS | Encounter Summary ---
:[address] [facility] Address [address] [place] [address] Care Team Providers Name Role Phone Ary Purcell P.A.-C., P.A. Primary Care Provider Unavaila ble Reason for Visit Reason Comments Med Refill Encounter Details Date Type Department Care Team Description 12/09/2021 Refill Department of Family Medicine, Vani Purcell, Med Refill [facility], in [place] Gabriel, P .A. [address] [phone] Social History Tobacco [...] How often do you attend yazidism or orthodoxy Never 10/23/2020 services? 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 PCP - General 06/07/19 01/14/22 documented as of this encounter
--- OUTSIDE RECORDS SUMMARY | 2022-07-20 10:47 | XMS_ITS | Encounter Summary ---
:1995 Author Organization [facility] Address [address] [place] [address] Care Team Providers Name Role Phone Teresita Barkley M.D. Primary Care Provider Encounter Details Date Type Department Care Team Description 03/16/2022 Orders Only Department of Family Min Barkley M.D. [facility], [address], in 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 PCP - General 01/15/[address] [place] [phone] documented as of this encounter
--- OUTSIDE RECORDS SUMMARY | 2022-07-20 10:48 | XMS_ITS | Encounter Summary ---
:1995 Author Organization [facility] Address [address] [place] [address] Care Team Providers Name Role Phone Ary Purcell P.A.-C., P.A. Primary Care Provider Ailin diaz Encounter Details Date Type Department Care Team Description 06/17/2020 Orders Only [facility] - Ary Hamilton, [address] [facility] [address] P.A.-[place] [address] Social History Tobacco Use Types [...] How often do you attend pentecostalism or taoism Never 10/23/2020 services? 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 PCP - General 06/07/19 01/14/22 documented as of this encounter
--- OUTSIDE RECORDS SUMMARY | 2022-07-20 10:48 | XMS_ITS | Encounter Summary ---
:1995 Author Organization [facility] Address [address] [place] [address] Care Team Providers Name Role Phone Ary Purcell P.A.-C., P.A. Primary Care Provider Unavaila ble Reason for Referral Outpatient (Routine) - Closed Specialty Diagnoses / Procedures Referred By Contact Refer red To Contact Family Medicine Ary Purcell P.A.-C., [facility] [address] [place] [address] Referral ID Status Reason Start Date Expiration Date Visits Requ ested Visits Authorized [id number] Closed 10/24/2020 10/24/2021 1 1 Scheduling Instructions Physical, come fasting if no labs ordere d NICAL SALES SUPPORT MANAGER Reason for Visit Reason Comments Gynecologic Exam Has a spot on her labia that she noticed 2 days ago. Appointment Request (Routine) - Closed Specialty Diagnoses / Procedures Referred By Contact Modesta mullen To Contact Family Medicine Referral ID Status Reason Start Date Expiration Date Visits Requ ested Visits Authorized [id number] Closed 10/22/2020 10/22/2021 1 1 Encounter Details Date Type Department Care Team Description 10/24/2020 Office Visit Department of [facility] Ary Purcell Ast hma Moderate Persistent (HCC) (Primary Dx); [facility] Pap Smear Examination; Clinic, in [place] Depression Major One Episode Full Remission (HCC); [place], [place] Anxiety; [id number] Body Mass Index 40.0 To 44.9 Adult ([facility]) [place] [phone] Social History Tobacco Use [...] How often do you attend religious or uatsdin Never 10/23/2020 services? 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 documented as of this encounter Last Filed Vital Signs Vital Sign Reading Time Taken Comments Blood Pressure 127/70 10/24/2020 8:34 AM TECHNICAL SALES SUPPORT MANAGER Pulse 82 10/24/2020 8:34 AM TECHNICAL SALES SUPPORT MANAGER Temperature 36.8 ??C (98.2 ??F) 10/24/2020 8:34 AM TECHNICAL SALES SUPPORT MANAGER Respiratory Rate 18 10/24/2020 8:34 AM TECHNICAL SALES SUPPORT MANAGER Oxygen Saturation 99% 10/24/2020 8:34 AM TECHNICAL SALES SUPPORT MANAGER Inhaled Oxygen Concentration - - Weight 119 kg (261 lb 11 oz) 10/24/2020 8:34 AM TECHNICAL SALES SUPPORT MANAGER Height 167.5 cm (5' 5.95) 10/24/2020 8:34 AM TECHNICAL SALES SUPPORT MANAGER Body Mass Index 42.31 10/24/2020 8:34 AM TECHNICAL SALES SUPPORT MANAGER documented in this encounter Patient Instructions Patient InstructionsAry Purcell P.A. - 10/24/2020 8:30 AM CST Continue current medications Pap results in 7-10 days NICAL SALES SUPPORT MANAGER documented in this encounter H&P Notes [...] of health. She did recently travel to [place] last week. She was in her swimming [...] FIXATION ANKLE; Surgeon: Bruno Spivey M.D.; Location: [facility] OR ??? TONSILLECTOMY 2000 Partial ??? [...] The adnexa show no masses or tenderness. Computer Applications Engineer declined. Pap obtained today. Left labia minora [...] content. Total time: 28 minutes Ranjana Alexandra NICAL SALES SUPPORT MANAGER documented in this encounter Plan of Treatment Scheduled Referrals Name Type Priority Associated Diagnoses Order S [facility] Medicine Outpatient Referral Routine Expec jay jay: office visit 10/24/2021 (clinic) (Approximate), Expires: 10/25/2023 documented as of this encounter Procedures Procedure Name Priority Date/Time Associated Diagnosis Comme nts THINPREP SCREEN HPV Routine 10/24/2020 8:44 AM Pap Smear Re sults for this REFLEX TECHNICAL SALES SUPPORT MANAGER Examination procedure are i n the results section. documented in this encounter Results ThinPrep Screen HPV Reflex (10/24/2020 8:44 AM TECHNICAL SALES SUPPORT MANAGER) Component Value Ref Test Analysis Performed [...] Laterality Varies 10/24/2020 8:44 AM 3:56 (Cervix/Endocerv TECHNICAL SALES SUPPORT MANAGER PM TECHNICAL SALES SUPPORT MANAGER ix) Narrative This result has an attachment that is no t available. Ary Purcell P.A.-C., P.A. LAB PAP PATHDX ORDERABLES Performing Organization Address City/State/ZIP Code Phon e Number [facility]- [address] [place] [address] [phone] [facility] [place] [address] System in [address] documented in this encounter Visit Diagnoses Diagnosis Asthma Moderate Persistent (HCC) - Prima ry Pap Smear Examination Depression Major One Episode Full Remiss ion (HCC) Anxiety Body Mass Index 40.0 To 44.9 Adult (HCC) documented in this encounter Additional Health Concerns Assessment Noted Time PHQ-9 Depression Total Score: 4 10/24/2020 8:00 AM TECHNICAL SALES SUPPORT MANAGER documented as of this encounter Care Teams Sterile Technician Relationship Specialty Start Date End Date Ary Purcell P.A.-C., P.A. PCP - General 06/07/19 01/14/22 documented as of this encounter
--- OUTSIDE RECORDS SUMMARY | 2022-07-20 10:48 | XMS_ITS | Encounter Summary ---
:1995 Author Organization [facility] Address [address] [place] [address] Care Team Providers Name Role Phone Ary Purcell P.A.-C., P.A. Primary Care Provider Unavaila ble Reason for Referral Outpatient (Routine) - Closed Specialty Diagnoses / Procedures Referred By Contact Refer red To Contact Diagnoses Pain Wrist Left Ary Purcell P.A.-C., [facility] Region Procedures DX Wrist Left 3+ Views P.A. [address] [place] [address] Referral ID Status Reason Start Date Expiration Date Visits Requ ested Visits Authorized [id number] Closed 10/26/2021 10/26/2022 1 1 Reason for Visit Reason Comments Wrist Pain Left wrist pain. States it s tarted last april. Does not recollect any trauma to wrist. Aleve seems to help with pain a little. Also discuss kenalog cream. Encounter Details Date Type Department Care Team Description 10/26/2021 Office Visit Department of [facility] Ary Purcell Pai n Wrist Left (Primary Dx); Medicine, [place] Gabriel, P.A. [facility], in [address] [phone] Social History Tobacco Use Types [...] How often do you attend religious or holiness Never 10/23/2020 services? Do you belong to any clubs or organizations such as 12/04/2019 religious groups, unions, fraternal or athletic [...] or the highest technical, or vocational p [facility] degree you have received? 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 - 10/26/2021 5:30 PM CDT Lidex ointment twice daily on hands documented in this encounter Progress Notes Ary Purcell P.A.-C., Ranjana - 10/26/2021 5:30 PM CDT [...] warmth. Negative Tinel and Phalen test. Decreased heel cementer strength on the left due to pain. 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 IMG DIAGNOSTIC IMAGING [place] OCEDURES documented in this encounter Visit Diagnoses Diagnosis Pain Wrist Left - Primary Eczema Pain Wrist Left documented in this encounter Additional Health Concerns Assessment Noted Time PHQ-9 Depression Total Score: 1 09/01/2021 12:11 PM CS T documented as of this encounter Care Teams Catcher Filter Tip Relationship Specialty Start Date End Date Ary Purcell P.A.-C., P.A. PCP - General 06/07/19 01/14/22 documented as of this encounter
--- OUTSIDE RECORDS SUMMARY | 2022-07-20 10:48 | XMS_ITS | Encounter Summary ---
:1995 Author Organization [facility] Address [address] [place] [address] Care Team Providers Name Role Phone Ary Purcell P.A.-C., P.A. Primary Care Provider Unavaila ble Reason for Visit Reason Comments COVID Inquiry Encounter Details Date Type Department Care Team Description 05/28/2020 Clinical Communication Department of [facility] Vani Purcell Inquiry Medicine, [place] Ranjaan Heller-Guillermina, Clinic, in [address] [phone] Social History Tobacco Use Types [...] How often do you attend rastafari or islam Never 10/23/2020 services? Do you [...] at Date Recorded Female 08/12/2017 10:51 AM KILN REMOVER documented as of this encounter Miscellaneous Notes [...] documented as of this encounter Care Teams Applied Behavior Science Specialist Relationship Specialty Start Date End Date Ary Purcell P.A.-C., P.A. PCP - General 06/07/19 01/14/22 documented as of this encounter
--- OUTSIDE RECORDS SUMMARY | 2022-07-20 10:48 | XMS_ITS | Encounter Summary ---
:1995 Author Organization [facility] Address [address] [place] [address] Care Team Providers Name Role Phone Ary [...] Expiration Date Visits Requ ested Visits Authorized [id number] Closed 08/04/2021 08/04/2022 1 1 Encounter Details Date Type Department Care Team Description 08/13/2021 Comprehensive Visit Department of Family Ary Purcell Anxiety (Primary Dx); MedicineYulia P.A.-C., Depression Major One Episode Full Remission (HCC); [facility] Asthma Mode rate Persistent (HCC); [place], Dermatitis Akhil [address] [place] [phone] Social History Tobacco Use Types Packs/Day Years [...] How often do you attend buddhist or mosque Never 10/23/2020 services? 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 documented as of this encounter Last Filed Vital Signs Vital Sign Reading Time Taken Comments Blood Pressure 117/81 08/13/2021 8:26 AM MECHANICAL MANUFACTURING TECHNICIAN Pulse 81 08/13/2021 8:26 AM MECHANICAL MANUFACTURING TECHNICIAN Temperature 35.8 ??C (96.4 ??F) 08/13/2021 8:26 AM MECHANICAL MANUFACTURING TECHNICIAN Respiratory Rate 20 08/13/2021 8:26 AM MECHANICAL MANUFACTURING TECHNICIAN Oxygen Saturation 97% 08/13/2021 8:26 AM MECHANICAL MANUFACTURING TECHNICIAN Inhaled Oxygen Concentration - - Weight 119 kg (262 lb 2 oz) 08/13/2021 8:26 AM MECHANICAL MANUFACTURING TECHNICIAN Height - - Body Mass Index 42.38 10/24/2020 8:34 AM MECHANICAL MANUFACTURING TECHNICIAN documented in this encounter Patient Instructions Patient InstructionsAry Purcell P.A.-Mitchell., P.A. - 08/13/2021 8:30 AM MECHANICAL MANUFACTURING TECHNICIAN For depression: -continue lexapro 20mg daily -vitamin D3 2000 IU daily -light therapy 10-15 min daily For anxiety: -start buspar 5mg 2-3 times daily Will check in on the portal in 1-2 weeks Start triamcinolone cream on hands twice daily for 2 weeks -emollients such as aquaphor or eucerin cream as well ANICAL MANUFACTURING TECHNICIAN documented in this encounter Progress Notes Ary [...] eczema bilateral hands. She has been using zoax-[id number] hydrocortisone cream per recommendations from visit in [...] time: 25 minutes Ary Purcell P.A.-C., P.A. ANICAL MANUFACTURING TECHNICIAN documented in this encounter Plan of Treatment Not on filedocumented as of this encounter Visit Diagnoses Diagnosis Anxiety - Primary Depression Major One Episode Full Remiss ion (HCC) Asthma Moderate Persistent (HCC) Dermatitis Atopic documented in this encounter Additional Health Concerns Assessment Noted Time PHQ-9 Depression Total Score: 11 08/13/2021 8:00 AM CS T documented as of this encounter Care Teams Tutoring Manager Relationship Specialty Start Date End Date Ary Purcell P.A.-C., P.A. PCP - General 06/07/19 01/14/22 documented as of this encounter
--- OUTSIDE RECORDS SUMMARY | 2022-07-20 10:48 | XMS_ITS | Encounter Summary ---
:1995 Author Organization [facility] Address [address] [place] [address] Care Team Providers Name Role Phone Ary Purcell P.A.-C., P.A. Primary Care Provider Ailin diaz Encounter Details Date Type Department Care Team Description 08/21/2021 Orders Only Department of [facility] Ary Purcell, Medicine, [place] Moses., P.A. Clinic, in [address] [phone] Social History Tobacco Use [...] How often do you attend mosque or zoroastrian Never 10/23/2020 services? 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 Payroll Manager Relationship Specialty Start Date End Date Ary Purcell P.A.-C., P.A. PCP - General 06/07/19 01/14/22 documented as of this encounter
--- OUTSIDE RECORDS SUMMARY | 2022-07-20 10:48 | XMS_ITS | Encounter Summary ---
:1995 Author Organization [facility] Address [address] [place] [address] Care Team Providers Name Role Phone Ary Purcell P.A.-C., P.A. Primary Care Provider Unavaila ble Reason for Referral Outpatient (Routine) - Closed Specialty Diagnoses / Procedures Referred By Contact Refer red To Contact Diagnoses Pain Wrist Left Ary Purcell P.A.-C., [facility] Region Procedures DX Wrist Left 3+ Views P.A. [address] [place] [phone] Referral ID Status Reason Start Date Expiration Date Visits Requ ested Visits Authorized [id number] Closed 10/26/2021 10/26/2022 1 1 Reason for Visit Outpatient (Routine) - Closed Specialty Diagnoses / Procedures Referred By Contact Refer red To Contact Diagnoses Pain Wrist Left Ary Purcell P.A.-C., [facility] Region Procedures DX Wrist Left 3+ Views P.A. [address] [place] [phone] Referral ID Status Reason Start Date Expiration Date Visits Requ ested Visits Authorized [id number] Closed 10/26/2021 10/26/2022 1 1 Encounter Details Date Type Department Care Team Description 10/26/2021 Hospital Encounter Department of Radiology Sigifredo Purcell, Pain Wrist Left in [place], P.A. [address] [phone] Social History Tobacco Use Types [...] How often do you attend anglican or druze Never 10/23/2020 services? Do you [...] at Date Recorded Female 08/12/2017 10:[address] documented as of this encounter Medications at [...] Ary Purcell P.A.-C., P.A. IMG DIAGNOSTIC IMAGING [place] OCEDURES documented in this encounter Visit Diagnoses Diagnosis Pain Wrist Left documented in this encounter Additional Health Concerns Assessment Noted Time PHQ-9 Depression Total Score: 1 09/01/2021 12:11 PM CS T documented as of this encounter Care Teams Rn Prior Authorization Relationship Specialty Start Date End Date Ary Purcell P.A.-C., P.A. PCP - General 06/07/19 01/14/22 documented as of this encounter
--- OUTSIDE RECORDS SUMMARY | 2022-07-20 10:48 | XMS_ITS | Encounter Summary ---
:1995 Author Organization [facility] Address [address] [place] [address] Care Team Providers Name Role Phone Ary Purcell P.A.-C. P.A. Primary Care Provider Ailin diaz Encounter Details Date Type Department Care Team Description 10/30/2020 Orders Only [facility] PCP TH MNT Sa elke Garcia M.D. [address] [place], [place] [phone] (Wo rk) Social History [...] How often do you attend synagogue or yazidism Never 10/23/2020 services? 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 PCP - General 06/07/19 01/14/22 documented as of this encounter
--- OUTSIDE RECORDS SUMMARY | 2022-07-20 10:48 | XMS_ITS | Encounter Summary ---
:1995 Author Organization [facility] Address [address] [place] [address] Care Team Providers Name Role Phone Ary Purcell P.A.-C., P.A. Primary Care Provider Unavaila ble Reason for Visit Reason Onset Date Comments Testing For Upper Respiratory Virus Symptoms 08/20/2021 Encounter Details Date Type Department Care Team Description 08/20/2021 External Outreach Department of [facility] Betty Garcia Contact With And (Suspected) Exposure To COVID-19; Medicine, [place] Jose Armando, PGonzaloA.-C. Infection Upper Respiratory Clinic, in [address] [phone] [place], [place] [phone] (Work) [phone] Social History Tobacco Use Types Packs/Day Years [...] or the highest technical, or vocational p rohtiram degree you have received? 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 - 08/20/2021 9:35 AM CST Encounter created for symptomatic infectious disease screening with possible COVID, Influenza, RSV, and/or Group A Strep testing. NEERING TECH documented in this encounter Miscellaneous Notes Result Encounter Note - Lori Gregg R.N. - 08/21/2021 8:04 AM ENGINEERING TECH Your patient has tested positive for SARS-CoV-2, the virus that causes COVID-19. IMPORTANT: Please update the patient's problem list and medication list to ensure an accurate and timely evaluation for COVID-19 treatments, including various medications and Remote Patient Monitoring (RPM). If eligible for COVID-19 treatments or RPM, your patient will be contacted by a designated team of nurses to coordinate the care. The [facility] Care Team ([facility]) sends general guidance about COVID-19 to all patients by letter or portal, except when a patient is hospitalized or resides in a intermediate. The MWC[facility] will also call all adult patients at highest risk for severe complications of COVID-19 andall who require an industrial maintenance repairer. Any patient with a MASS score 1 [...] for symptom management. For questions, contact the [facility] Care Team ([facility]): Pager: [phone] In basket: P RST/[facility] COVID-19 POSITIVE Covid [...] to obtain the result by calling the [employer] result line or by checking their online services account. NEERING TECH documented in this encounter Plan of Treatment Not on filedocumented as of this encounter Procedures Procedure Name Priority Date/Time Associated Diagnosis Comme nts INFLUENZA A/B AND Routine 08/20/2021 11:46 AM Infection Upper Results for this RSV, PCR, VARIES ENGINEERING TECH Respiratory procedure a re in the results section. SARS CORONAVIRUS-2 Routine 08/20/2021 11:46 AM Contact With An d Results for this RNA, V ENGINEERING TECH (Suspected) Exposure procedu re are in To COVID-19 the results section. documented in this encounter Results Influenza A/B and RSV, PCR, Varies (08/20/2021 11:46 AM ENGINEERING TECH) [facility] Method Time Signature Influenza A/B Swab, 08/23/2021 DTL and RSV, Nasopharynx 3:33 PM ENGINEERING TECH Source Influenza A, Undetected Undetected 08/23/2021 DTL PCR 3:33 PM ENGINEERING TECH Comment: Influenza A RNA absent. Influenza B, PCR Undetected Undetected 08/23/2021 3:33 PM CS T DTL Comment: Influenza B RNA absent. Respiratory Syncytial Virus, PCR Undetected Undetected 04/2022 3:33 PM ENGINEERING TECH DTL Comment: RSV RNA absent. ----ADDITIONAL INFORMATION---- This test has been modified from the man ufacturer's instructions. Its performance characteristics were determi bryan by [facility] in a manner consistent with CLIA requirements. This test has not been cleared or approved by the U.S. Food and Drug Administration . Specimen Anatomical Collection Method Collection Time Receive d Time (Source) Location / / Volume Laterality Varies 08/20/2021 11:46 08/20/2021 (Nasopharynx) AM ENGINEERING TECH 10:09 PM ENGINEERING TECH Emmanuel Garcia P.A.-C. LAB MICROBIOLOGY - GENERAL O RDERABLES Performing Organization Address City/[facility]/ZIP Code Phon e Number [facility] - [address] [place] [phone] [facility] [place] [address] Laboratories-[facility] [address] [facility] (ABNORMAL) SARS Coronavirus-2 RNA, V Symptomatic (08/20/2021 11:46 AM ENGINEERING TECH) [facility] Method Time Signature SARS-CoV-2 Swab, 08/21/2021 ECLR Specimen Nasopharynx 4:29 AM ENGINEERING TECH Source SARS CoV-2 Detected (A) Undetected 08/21/2021 ECLR RNA, TMA 4:29 AM ENGINEERING TECH Comment: SARS-CoV-2 RNA present. ----ADDITIONAL INFORMATION---- This molecular amplification test was pe rformed using the Aptima SARS-CoV-2 assay ([employer] on the [place] Sys tem under emergency use authorization (EUA) by the U.S. Food and Drug Administ trinity. Fact sheets for this EUA assay can be fo und at the following links: For Healthcare Providers: https://www.fd a.gov/media/162728/download For Patients: https://www.fda.gov/media/ 351092/download Specimen Anatomical Collection Method Collection Time Receive d Time (Source) Location / / Volume Laterality Varies 08/20/2021 11:46 08/20/2021 4:12 (Nasopharynx) AM ENGINEERING TECH PM ENGINEERING TECH Emmanuel Garcia P.A.-C. LAB MICROBIOLOGY - GENERAL O RDERABLES Performing Organization Address City/State/ZIP Code Phon e Number [facility]- [address] [place] [phone] [facility] [place] [address] System [address] documented in this encounter Visit Diagnoses Diagnosis Contact With And (Suspected) Exposure To COVID-19 Infection Upper Respiratory documented in this encounter Additional Health Concerns Infection Onset Date Last Indicated Resolved Time COVID19 Pending 08/20/2021 08/20/2021 08/21/2021 4:30 AM ENGINEERING TECH Assessment Noted Time PHQ-9 Depression Total Score: 11 08/13/2021 8:00 AM CS T documented as of this encounter Care Teams Operations Welder Relationship Specialty Start Date End Date Ary Purcell P.A.-C., P.A. PCP - General 06/07/19 01/14/22 documented as of this encounter
--- OUTSIDE RECORDS SUMMARY | 2022-07-20 10:48 | XMS_ITS | Encounter Summary ---
:[address] [facility] Address [address] [place] [address] Care Team Providers Name Role Phone Ary Purcell P.A.-C., P.A. Primary Care Provider Unavaila ble Reason for Visit Reason Comments COVID Inquiry Encounter Details Date Type Department Care Team Description 09/09/2020 Clinical Communication Department of [facility] Vani Purcell Inquiry Medicine, [place] Man[place] HellerAGonzalo-Guillermina, Clinic, in [address] [phone] Social History Tobacco Use Types Packs/Day Years [...] How often do you attend orthodox or church Never 10/23/2020 services? 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 ALT PLANT OPERATOR documented in this encounter Plan of Treatment Not on filedocumented as of this encounter Visit Diagnoses Not on filedocumented in this encounter Additional Health Concerns Assessment Noted Time PHQ-9 Depression Total Score: 10 11/08/2018 12:47 PM C DT documented as of this encounter Care Teams Network Security Officer Relationship Specialty Start Date End Date Ary Purcell P.A.-C., P.A. PCP - General 06/07/19 01/14/22 documented as of this encounter
--- OUTSIDE RECORDS SUMMARY | 2022-07-20 10:48 | XMS_ITS | Encounter Summary ---
:1995 Author Organization [facility] Address [address] [place] [address] Care Team Providers Name Role Phone Ary Purcell P.A.-C., P.A. Primary Care Provider Ailin diaz Encounter Details Date Type Department Care Team Description 08/20/2021 Admin Visit Department of [facility] Ary Purcell, Medicine, [facility], PDidier., P.A. 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 PCP - General 06/07/19 01/14/22 documented as of this encounter
--- OUTSIDE RECORDS SUMMARY | 2022-07-20 10:48 | XMS_ITS | Encounter Summary ---
:1995 Author Organization [facility] Address [address] [place] [address] Care Team Providers Name Role Phone Ary Purcell P.A.-C. P.A. Primary Care Provider Unavaila ble Reason for Visit Reason Comments Wart on left hand pinky finger re moved, skin check both hands bumps on fingers Appointment Request (Routine) - Closed Specialty Diagnoses / Procedures Referred By Contact Refer red To Contact Family Medicine Referral ID Status Reason Start Date Expiration Date Visits Requ ested Visits Authorized [id number] Closed 04/07/2021 04/07/2022 1 1 Encounter Details Date Type Department Care Team Description 04/21/2021 Office Visit Department of [place], [place] (Primary Dx); Medicine, [facility], in [address] [phone] Social History Tobacco Use Types Packs/Day Years [...] How often do you attend voodoo or holiness Never 10/23/2020 services? 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 She has tried lgfn-htx-jnxarre remedies without relief. Looking for next steps in therapy. She has also noticed dry patches on her hands bilateral withscaling and cracking. She has tried xpfp-fur-lldhqyt topical antibiotics without improvement. The following portions [...] ASSESSMENT / PLAN #1 Wart Discussed ongoing vbtk-qkt-cipwheu remedies. Cryotherapy provided at today's visit. Continue to monitor #2 Eczema Discussed utilizing zyeg-axu-iwcjbwv topical hydrocortisone cream along with moisturizing emollients. [...] documented as of this encounter Care Teams Bicycle Mechanic Relationship Specialty Start Date End Date Ary Purcell P.A.-C., P.A. PCP - General 06/07/19 01/14/22 documented as of this encounter
--- OUTSIDE RECORDS SUMMARY | 2022-07-20 10:48 | XMS_ITS | Encounter Summary ---
:1995 Author Organization [facility] Address [address] [place] [address] Care Team Providers Name Role Phone Ary Purcell P.A.-C., P.A. Primary Care Provider Unavaila ble Reason for Visit Reason Comments Rx Prior Authorization DENIAL OF QVAR Encounter Details Date Type Department Care Team Description 06/04/2020 Clinical Communication Department of Olya Purcell Family MedicineAry, Authorizati on (DENIAL [place] [facility], OF QVAR) Clinic, in [address] [phone] Social History Tobacco Use Types Packs/Day Years [...] How often do you attend anabaptism or moravian Never 10/23/2020 services? 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 PCP - General 06/07/19 01/14/22 documented as of this encounter
--- OUTSIDE RECORDS SUMMARY | 2022-07-20 10:48 | XMS_ITS | Encounter Summary ---
:1995 Author Organization [facility] Address [address] [place] [address] Care Team Providers Name Role Phone Ary Purcell P.A.-C., P.A. Primary Care Provider Unavaila ble Reason for Visit Reason Comments Med Refill Aerospan Encounter Details Date Type Department Care Team Description 09/09/2020 Clinical Communication Department of Ary Purcell Med Refill Family Medicine, Pina, P.A.-CGonzalo, (Aerospan) [facility] [address] [phone] Social History Tobacco Use Types Packs/Day Years [...] How often do you attend confucianism or episcopalian Never 10/23/2020 services? Do you [...] technical, or vocational p [facility] degree you have received? 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 - 09/09/2020 10:52 AM CORPORATE SPECIALIST Attempted to contact patient, to verify which pharmacy she would like her prescriptions at, no answer, voice message left for patient to contact the clinic. ORATE SPECIALIST Telephone Encounter - Ary Purcell, P.A. - 09/09/2020 10:37 AM CST Sent new script to [facility]. Ary Marvin ORATE SPECIALIST Telephone Encounter - Kaela Nino L.P.N. - 09/09/2020 10:32 AM CORPORATE SPECIALIST Appears to have been discontinued at visit today, notes not yet available, please advise. ORATE SPECIALIST Telephone Encounter - Chloe Leahy - 09/09/2020 9:59 AM CST Reason for Communication: Family Alicia FAULKNER called on RX for Carly Current Can Nursing/Provider leave a detailed message?: Y Did the patient refuse triage through Nurse line? (for symptom based concerns):N Action Needed: Call Family Vargas Name of Medication (if relevant): Aerospan ORATE SPECIALIST documented in this encounter Plan of Treatment Not on filedocumented as of this encounter Visit Diagnoses Not on filedocumented in this encounter Additional Health Concerns Assessment Noted Time PHQ-9 Depression Total Score: 10 11/08/2018 12:47 PM C DT documented as of this encounter Care Teams Daytime Caregiver Relationship Specialty Start Date End Date Ary Purcell P.A.-C., P.A. PCP - General 06/07/19 01/14/22 documented as of this encounter
--- OUTSIDE RECORDS SUMMARY | 2022-07-20 10:48 | XMS_ITS | Encounter Summary ---
:1995 Author Organization [facility] Address [address] [place] [address] Care Team Providers Name Role Phone Ary [...] Expiration Date Visits Requ ested Visits Authorized [id number] Closed 05/28/2020 05/28/2021 1 1 Encounter Details Date Type Department Care Team Description 05/28/2020 Office Visit Department of Family Ary Purcell Der matitis Perioral Medicine, [place] [facility]., P.A. (Deirdre [facility]) Clinic, in [address] [phone] Social History Tobacco Use Types Packs/Day Years [...] How often do you attend adventist or yazidism Never 10/23/2020 services? Do you [...] or the highest technical, or vocational p [employer] degree you have received? 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 Shewas diagnosed at a [facility] with impetigo a few months ago. She has been using her topical Bactroban which did initially helped but she is having ongoing skin lesions that are pruritic. 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 REVIEW OF SYSTEMS A brief review of [...] as of this encounter Care Teams Roof Shingler Relationship Specialty Start Date End Date Ary Purcell P.A.-C., P.A. PCP - General 06/07/19 01/14/22 documented as of this encounter
--- OUTSIDE RECORDS SUMMARY | 2022-07-20 10:48 | XMS_ITS | Encounter Summary ---
:1995 Author Organization [facility] Address [address] [place] [address] Care Team Providers Name Role Phone Teresita Barkley M.D. Primary Care Provider Encounter Details Date Type Department Care Team Description 08/13/2021 Orders Only Department of [facility] Ary Purcell, Medicine, [place] P.A.-C., P.A. Clinic, in [address] [phone] Social History Tobacco Use [...] How often do you attend anabaptist or scientologist Never 10/23/2020 services? 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 PCP - General 01/15/[address] [place] [phone] documented as of this encounter
--- OUTSIDE RECORDS SUMMARY | 2022-07-20 10:48 | XMS_ITS | Encounter Summary ---
:1995 Author Organization [facility] Address [address] [place] [address] Care Team Providers Name Role Phone Ary Purcell P.A.-C., P.AGonzalo Primary Care Provider Ailin diaz Encounter Details Date Type Department Care Team Description 06/04/2020 Orders Only [facility] Pharm[facility] - [facility] mallika Ansari, She Yeng Phia [address] [facility] [place] [phone] Social History Tobacco Use Types [...] How often do you attend anabaptism or jew Never 10/23/2020 services? Do you [...] highest level of school Associate degree: brianneanabela solisnany, 03/01/2019 you have completed or the highest technical, or vocational margo buenrostro degree you have received? 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 PCP - General 06/07/19 01/14/22 documented as of this encounter
--- OUTSIDE RECORDS SUMMARY | 2022-07-20 10:48 | XMS_ITS | Encounter Summary ---
:1995 Author Organization [facility] Address [address] [place] [address] Care Team Providers Name Role Phone Ary Purcell P.A.-C., P.A. Primary Care Provider Unavaila ble Reason for Visit Reason Comments Post Ed Visit Follow-up ED visit last night. Still h aving troubles breathing. Outpatient (Routine) - Closed Specialty Diagnoses / Procedures Referred By Contact Refer red To Contact Emergency Medicine Diagnoses Asthma Extrinsic With Acute Exacerbation (HCC) [facility] [address] [place] [phone] Referral ID Status Reason Start Date Expiration Date Visits Requ ested Visits Authorized [id number] Closed 09/08/2020 09/08/2021 1 1 Encounter Details Date Type Department Care Team Description 09/09/2020 Office Visit Department of Family Ary Purcell Ast hma Extrinsic With Acute Exacerbation (HCC) (Primary Dx); [facility] [place] [address] [phone] Social History Tobacco Use Types [...] How often do you attend yarsani or zoroastrian Never 10/23/2020 services? Do you [...] Date Recorded Female 08/12/2017 10:51 AM RESIDENTIAL DIRECT SUPPORT PROFESSIONAL documented as of this encounter Last Filed Vital Signs Vital Sign Reading Time Taken Comments Blood Pressure 132/81 09/09/2020 10:01 AM RESIDENTIAL DIRECT SUPPORT PROFESSIONAL Pulse 98 09/09/2020 10:01 AM RESIDENTIAL DIRECT SUPPORT PROFESSIONAL Temperature 36.6 ??C (97.9 ??F) 09/09/2020 10:01 AM RESIDENTIAL DIRECT SUPPORT PROFESSIONAL Respiratory Rate 28 09/09/2020 10:01 AM RESIDENTIAL DIRECT SUPPORT PROFESSIONAL Oxygen Saturation 93% 09/09/2020 10:01 AM RESIDENTIAL DIRECT SUPPORT PROFESSIONAL Inhaled Oxygen Concentration - - Weight 118 kg (260 lb 12.9 oz) 09/09/2020 10:01 AM RESIDENTIAL DIRECT SUPPORT PROFESSIONAL Height - - Body Mass Index 42.09 [...] content. Total time: 22 minutes Ranjana Alexandra DENTIAL DIRECT SUPPORT PROFESSIONAL documented in this encounter Plan of Treatment Not on filedocumented as of this encounter Procedures Procedure Name Priority Date/Time Associated Diagnosis Comme nts D-DIMER, P Routine 09/09/2020 10:38 AM Dyspnea Results for this RESIDENTIAL DIRECT SUPPORT PROFESSIONAL procedure are i n the results section . documented in this encounter Results D-Dimer (09/09/2020 10:38 AM RESIDENTIAL DIRECT SUPPORT PROFESSIONAL) P athologist Signature D-Dimer, P <220 <=500 ng/mL 09/09/2020 CNFL FEU 11:18 AM RESIDENTIAL DIRECT SUPPORT PROFESSIONAL Comment: ----ADDITIONAL INFORMATION---- D-dimer values less than or equal to 500 ng/mL fibrinogen equivalent units (FEU) may be used in co njunction with clinical pre-test probability to exclude deep vein thrombosis (DVT) and/or pulmonary emboli sm (PE). Specimen Anatomical Collection Method Collection Time Receive d Time (Source) Location / / Volume Laterality Blood (Blood, 09/09/2020 10:38 09/09/2020 Venous) AM RESIDENTIAL DIRECT SUPPORT PROFESSIONAL 10:44 AM RESIDENTIAL DIRECT SUPPORT PROFESSIONAL Ary Purcell P.A.-C., P.A. LAB BLOOD ADD-ON Performing Organization Address City/State/[facility] Code Phon e Number [address] [place] [address] System [address] documented in this encounter Visit Diagnoses Diagnosis Asthma Extrinsic With Acute Exacerbation (HCC) - Primary Dyspnea documented in this encounter Additional Health Concerns Assessment Noted Time PHQ-9 Depression Total Score: 10 11/08/2018 12:47 PM C DT documented as of this encounter Care Teams Selling Underwriter Relationship Specialty Start Date End Date Ary Purcell P.A.-C., P.A. PCP - General 06/07/19 01/14/22 documented as of this encounter
--- OUTSIDE RECORDS SUMMARY | 2022-07-20 10:48 | XMS_ITS | Encounter Summary ---
:1995 Author Organization [facility] Address [address] [place] [address] Care Team Providers Name Role Phone Ary Purcell P.A.-C., P.A. Primary Care Provider Ailin diaz Encounter Details Date Type Department Care Team Description 06/27/2020 Orders Only Department of [facility] Ayr Purcell, Medicine, [facility] Ranjana-Mitchell., P.A. Clinic, in [address] [phone] Social History Tobacco Use [...] How often do you attend druze or mormonism Never 10/23/2020 services? 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 PCP - General 06/07/19 01/14/22 documented as of this encounter
--- OUTSIDE RECORDS SUMMARY | 2022-07-20 10:48 | XMS_ITS | Encounter Summary ---
:1995 Author Organization [facility] Address [address] [place] [address] Care Team Providers Name Role Phone Ary Purcell P.A.-C., P.A. Primary Care Provider Unavaila ble Reason for Visit Reason Comments COVID Nurse Line Encounter Details Date Type Department Care Team Description 08/20/2021 Clinical Communication Division of Rossy Almonte Nurse Line [facility] Internal Medicine, [facility], in [place], [place] [address] [place] [address] Social History Tobacco Use Types Packs/Day Years [...] How often do you attend lutheran or amish Never 10/23/2020 services? Do you [...] highest level of school Associate degree: brianneanabela julissa, 03/01/2019 you have completed or the highest technical, or vocational p chitra degree you have received? Sex Assigned at Date Recorded Female 08/12/2017 10:51 AM DIRECTOR OF PLANNING documented as of this encounter Miscellaneous Notes Telephone Encounter - Diamond Hensley - 08/20/2021 3:45 PM DIRECTOR OF PLANNING Scheduled for 08/20 CTOR OF PLANNING Telephone Encounter - Rossy Almonte - 08/20/2021 [...] RSV and Strep Select appropriate region: : [place] Do you have any of the following [...] (Oseltamivir)?: Yes and patient is an established [facility] patient*. When screening complete, run the Influenza [...] swabbed for COVID-19 and Influenza, sent to [facility] located at [address]. An appointment is required fortesting, please call [phone] Tuesday-Tuesday 7am to 6pm and Tuesday & [...] frequently with soap and water, use hand adjuster and inspector if soap and water aren't available. -Wear [...] care: Yes The following references were used: [facility] novel coronavirus (COVID- 19) resources CTOR OF PLANNING documented in this encounter Plan of Treatment Not on filedocumented as of this encounter Visit Diagnoses Not on filedocumented in this encounter Additional Health Concerns Infection Onset Date Last Indicated Resolved Time COVID19 Pending 08/20/2021 08/20/2021 08/21/2021 4:30 AM DIRECTOR OF PLANNING Assessment Noted Time PHQ-9 Depression Total Score: 11 08/13/2021 8:00 AM CS T documented as of this encounter Care Teams Instructor Modeling Relationship Specialty Start Date End Date Ary Purcell P.A.-C., P.A. PCP - General 06/07/19 01/14/22 documented as of this encounter
--- OUTSIDE RECORDS SUMMARY | 2022-07-20 10:48 | XMS_ITS | Encounter Summary ---
:1995 Author Organization [facility] Address [address] [place] [address] Care Team Providers Name Role Phone Ary Purcell P.A.-C., P.A. Primary Care Provider Unavaila ble Reason for Visit Reason Comments Med Refill Encounter Details Date Type Department Care Team Description 12/25/2020 Refill Department of Family Medicine, Vani Purcell, Med Refill [facility], in [place] Gabriel, P .A. [address] [phone] Social History Tobacco Use [...] How often do you attend episcopal or oriental orthodox Never 10/23/2020 services? Do [...] Recorded Female 08/12/2017 10:51 AM CHIEF OF PLANNING documented as of this encounter Miscellaneous Notes Telephone Encounter - Favio Cadena - 12/25/2020 11:42 AM CDT Nurse review: Unable to forward request to provider; System requests alternative due to formulary coverage Primary Provider: Ary Purcell P.A.-C., P.A. Name: Escitalopram oxalate Strength: 20 mg tab Frequency: take one tab PO daily Quantity: 30 Refills: Last Refill: 11-25-20 Pharmacy: [facility] documented in this encounter Plan of Treatment Not on filedocumented as of this encounter Visit Diagnoses Diagnosis Anxiety Generalized Disorder documented in this encounter Additional Health Concerns Assessment Noted Time PHQ-9 Depression Total Score: 4 10/24/2020 8:00 AM CHIEF OF PLANNING documented as of this encounter Care Teams Wash Mill Operator Relationship Specialty Start Date End Date Ary Purcell P.A.-C., P.A. PCP - General 06/07/19 01/14/22 documented as of this encounter
--- OUTSIDE RECORDS SUMMARY | 2022-07-20 10:48 | XMS_ITS | Encounter Summary ---
:1995 Author Organization [facility] Address [address] [place] [address] Care Team Providers Name Role Phone Teresita Barkley M.D. Primary Care Provider Encounter Details Date Type Department Care Team Description 09/09/2020 Orders Only Department of [facility] Ary Purcell, Medicine, [place] P.A.-C., P.A. Clinic, in [address] [phone] Social History Tobacco [...] How often do you attend anabaptist or bahai Never 10/23/2020 services? 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 ASSISTANTS TEACHER documented as of this encounter Plan of Treatment Not on filedocumented as of this encounter Visit Diagnoses Not on filedocumented in this encounter Additional Health Concerns Infection Onset Date Last Indicated Resolved Time COVID19 Pending 08/20/2021 08/20/2021 08/21/2021 4:30 AM NURSING ASSISTANTS TEACHER COVID19 08/20/2021 08/20/2021 09/09/2021 5:24 AM NURSING ASSISTANTS TEACHER Assessment Noted Time PHQ-9 Depression Total Score: 10 11/08/2018 12:47 PM C DT documented as of this encounter Care Teams Payroll Director Relationship Specialty Start Date End Date Teresita Barkley M.D. PCP - General 01/15/[address] [place] [phone] documented as of this encounter
--- OUTSIDE RECORDS SUMMARY | 2022-07-20 10:48 | XMS_ITS | Encounter Summary ---
:1995 Author Organization [facility] Address [address] [place] [address] Care Team Providers Name Role Phone Ary Purcell P.A.-C. P.A. Primary Care Provider Unavaila ble Reason for Referral Outpatient (Routine) - Closed Specialty Diagnoses / Procedures Referred By Contact Refer red To Contact Emergency Medicine Diagnoses Asthma Extrinsic With Acute Exacerbation (HCC) Robe Payne [facility] MERNA Jang III, M.D. [address] [address] Referral ID Status Reason Start Date Expiration Date Visits Requ ested Visits Authorized [id number] Closed 09/08/2020 09/08/2021 1 1 UNICATIONS STRATEGIST Reason for Visit Reason Comments Shortness of Breath Pt admits with concerns of c ontinued SOB. pt states she was given prednison on the 1-7 x 5days . Pt states she felt better until afew days ago when SOB retur bryan Encounter Details Date Type Department Care Team Description 09/08/2020 Emergency [place] Robe Payne Asthma E xtrinsic With Emergency Department Sherman PUENTE M.D. Acute Exacerbation [id number] (HCC) (Primary Dx) [place] [phone] (Wo rk) Social History Tobacco Use [...] How often do you attend mu-ism or hinduism Never 10/23/2020 services? Do you [...] Date Recorded Female 08/12/2017 10:51 AM COMMUNICATIONS STRATEGIST documented as of this encounter Last Filed Vital Signs Vital Sign Reading Time Taken Comments Blood Pressure 123/66 09/08/2020 6:15 PM COMMUNICATIONS STRATEGIST Pulse 89 09/08/2020 6:15 PM COMMUNICATIONS STRATEGIST Temperature 35.9 ??C (96.6 ??F) 09/08/2020 4:38 PM COMMUNICATIONS STRATEGIST Respiratory Rate 20 09/08/2020 4:38 PM COMMUNICATIONS STRATEGIST Oxygen Saturation 99% 09/08/2020 6:15 PM COMMUNICATIONS STRATEGIST Inhaled Oxygen Concentration - - Weight 118 kg (260 lb 2.3 oz) 09/08/2020 4:34 PM COMMUNICATIONS STRATEGIST Height - - Body Mass Index 41.99 02/20/2019 1:57 PM CDT documented in this encounter Discharge Instructions AttachmentsThe following attachments cannot be sent through Care Everywhere. Asthma Attack (Trinidadian)How to Use a Nebulizer Adult (Trinidadian)Metered Dose Inhaler (No Spacer Used) (Trinidadian)documented in this encounter Medications at Time of [...] Exacerbation (HCC) Robe Payne III, M.D. 09/08/201843 UNICATIONS STRATEGIST documented in this encounter Plan of Treatment Scheduled Referrals Name Type Priority Associated Diagnoses Order S chedule POST ED VISIT Outpatient Referral Routine Asthma Extrinsic Wit h Expected: Family Medicine Acute Exacerbation 2020 (HCC) (Approximate), Expires: 09/08/2023 documented as of this encounter Procedures Procedure Name Priority Date/Time Associated Comments Diagnosis CBC WITH STAT 09/08/2020 5:03 Results for DIFFERENTIAL, B PM COMMUNICATIONS STRATEGIST this procedu re are in the results section. COMPREHENSIVE STAT 09/08/2020 5:03 Results for METABOLIC PANEL, S/P PM COMMUNICATIONS STRATEGIST this pr ocedure are in the results section. DX CHEST AP OR PA RAD - Semiurgent 09/08/2020 4:57 Res ults for AND LATERAL 2 VIEWS (Fast; most ED PM COMMUNICATIONS STRATEGIST this p rocedure patients; some are in the inpatients) results section. documented in this encounter Results (ABNORMAL) Comprehensive Metabolic Panel (09/08/2020 5:03 PM COMMUNICATIONS STRATEGIST) P athologist Signature Potassium, P 3.9 3.6 - 5.2 09/08/2020 [facility] mmol/L 5:43 PM COMMUNICATIONS STRATEGIST Sodium, P 139 135 - 145 09/08/2020 [facility] mmol/L 5:43 PM COMMUNICATIONS STRATEGIST Chloride, P 104 98 - 107 09/08/2020 [facility] mmol/L 5:43 PM COMMUNICATIONS STRATEGIST Bicarbonate, P 23 22 - 29 09/08/2020 [facility] mmol/L 5:43 PM COMMUNICATIONS STRATEGIST Anion Gap, P 12 7 - 15 09/08/2020 [facility] 5:43 PM COMMUNICATIONS STRATEGIST BUN (Blood Urea 12 6 - 21 09/08/2020 [facility] Nitrogen), P mg/dL 5:43 PM COMMUNICATIONS STRATEGIST Creatinine 0.77 0.59 - 09/08/2020 [facility] 1.04 mg/dL 5:43 PM COMMUNICATIONS STRATEGIST eGFR-Black/Afric >90 >=60 09/08/2020 [facility] an Senegalese mL/min/BSA 5:43 PM COMMUNICATIONS STRATEGIST Comment: ----ADDITIONAL INFORMATION---- Estimated GFR calculated using the 2009 CKD_EPI creatinine equation. eGFR Non-Black/ >90 >=60 mL/min/BSA 09/08/2020 5:43 PM COMMUNICATIONS STRATEGIST [facility] Comment: ----ADDITIONAL INFORMATION---- Estimated GFR calculated using the 2009 CKD_EPI creatinine equation. Calcium, Total, P 9.6 8.6 - 10.0 mg/dL 09/08/2020 5:43 PM COMMUNICATIONS STRATEGIST [facility] Glucose, P 101 70 - 140 mg/dL 09/08/2020 5:43 PM COMMUNICATIONS STRATEGIST C NFL Protein, Total, P 6.8 6.3 - 7.9 g/dL 09/08/2020 5:43 P M COMMUNICATIONS STRATEGIST [facility] Albumin, P 4.0 3.5 - 5.0 g/dL 09/08/2020 5:43 PM COMMUNICATIONS STRATEGIST C NFL Aspartate Aminotransferase 34 8 - 43 U/L 09/08/2020 5 :43 PM COMMUNICATIONS STRATEGIST CNFL (AST), P Alkaline Phosphatase, P 103 35 - 104 U/L 09/08/2020 5: 43 PM COMMUNICATIONS STRATEGIST [facility] Alanine Aminotransferase 63 (H) 7 - 45 U/L 09/08/2020 5:4 3 PM COMMUNICATIONS STRATEGIST CN[facility] (ALT), P Bilirubin, Total, P 0.3 <=1.2 mg/dL 09/08/2020 5:43 PM COMMUNICATIONS STRATEGIST [facility] Specimen Anatomical Collection Method Collection Time Receive d Time (Source) Location / / Volume Laterality Blood (Blood, 09/08/2020 5:03 PM 09/08/19 5:05 Venous) COMMUNICATIONS STRATEGIST PM COMMUNICATIONS STRATEGIST Robe Payne III, M.D. LAB BLOOD ADD-ON Performing Organization Address City/State/ZIP Code Phon e Number [facility]- [address] [place] [address] [place] [address] System [address] CBC with Differential, Blood (09/08/2020 5:03 PM COMMUNICATIONS STRATEGIST) P athologist Signature Hemoglobin 13.8 11.6 - 09/08/2020 [facility] 15.0 g/dL 5:08 PM COMMUNICATIONS STRATEGIST Hematocrit 40.5 35.5 - 09/08/2020 [facility] 44.9 % 5:08 PM COMMUNICATIONS STRATEGIST Erythrocytes 4.39 3.92 - 09/08/2020 [facility] 5.13 5:08 PM COMMUNICATIONS STRATEGIST x10(12)/L MCV 92.3 78.2 - 09/08/2020 [facility] 97.9 fL 5:08 PM COMMUNICATIONS STRATEGIST RBC Distrib Width 12.7 12.2 - 09/08/2020 [facility] 16.1 % 5:08 PM COMMUNICATIONS STRATEGIST Platelet Count 233 157 - 371 09/08/2020 [facility] x10(9)/L 5:08 PM COMMUNICATIONS STRATEGIST Leukocytes 9.2 3.4 - 9.6 09/08/2020 [facility] x10(9)/L 5:08 PM COMMUNICATIONS STRATEGIST Neutrophils 6.26 1.56 - 09/08/2020 CN[facility] 6.45 5:08 PM COMMUNICATIONS STRATEGIST x10(9)/L Lymphocytes 2.03 0.95 - 09/08/2020 CN[facility] 3.07 5:08 PM COMMUNICATIONS STRATEGIST x10(9)/L Monocytes 0.48 0.26 - 09/08/2020 [facility] 0.81 5:08 PM COMMUNICATIONS STRATEGIST x10(9)/L Eosinophils 0.36 0.03 - 09/08/2020 [facility] 0.48 5:08 PM COMMUNICATIONS STRATEGIST x10(9)/L Basophils 0.03 0.01 - 09/08/2020 [facility] 0.08 5:08 PM COMMUNICATIONS STRATEGIST x10(9)/L Specimen Anatomical Collection Method Collection Time Receive d Time (Source) Location / / Volume Laterality Blood (Blood, 09/08/2020 5:03 PM 09/08/19 5:05 Venous) COMMUNICATIONS STRATEGIST PM COMMUNICATIONS STRATEGIST Robe Payne III, M.D. LAB BLOOD ADD-ON Performing Organization Address City/State/ZIP Code Phon e Number [facility]- [address] [place] [address] [place] [address] System [address] DX Chest AP or PA and Lateral 2 Views (09/08/2020 4:57 PM COMMUNICATIONS STRATEGIST) Anatomical Region Laterality Modality Chest, Thoracic RST LOS, Thoracic ARZ LOS, Thoracic N/A Digital Radiography FLA LOS Specimen (Source) Anatomical Collection Method Collection Time Re ceived Time Location / / Volume Laterality 09/08/2020 4:59 PM COMMUNICATIONS STRATEGIST Impressions 09/08/2020 5:00 PM COMMUNICATIONS STRATEGIST No focal consolidation or pleural effusion. No pneumothorax. Normal heart size. October 20, 2015 comparison. Narrative 09/08/2020 5:00 PM COMMUNICATIONS STRATEGIST EXAM: DX CHEST AP OR PA AND [...] nebulizer solution 2.5 Given 09/08/2020 5:57 PM COMMUNICATIONS STRATEGIST 2. 5 mg mg (ACCUNEB) 2.5 mg, nebulization, Once, On 09/08/20 at 1750, For 1 dose dexAMETHasone injection 10 mg (DECADRON) Given 09/08/2020 5:57 PM COMMUNICATIONS STRATEGIST 10 mg 10 mg, intravenous, Once, On Tue09/08/20 at 1751, For 1 dose ipratropium-albuteroL 0.5-2.5 mg/3 mL nebulizer Given 09/08/2020 5:05 PM COMMUNICATIONS STRATEGIST 3 mL solution 3 mL (DUONEB) 3 [...] Recently Administered Medications Times are shown in COMMUNICATIONS STRATEGIST. Scheduled Medication Order 09/06/2020 09/07/2020 09/08/2020 albuterol [...] documented as of this encounter Care Teams Sap Functional Analyst Relationship Specialty Start Date End Date Ary Purcell P.A.-C., P.A. PCP - General 06/07/19 01/14/22 documented as of this encounter
--- OUTSIDE RECORDS SUMMARY | 2022-07-20 10:48 | XMS_ITS | Encounter Summary ---
:1995 Author Organization [facility] Address [address] [place] [address] Care Team Providers Name Role Phone Ary Purcell P.A.-C., P.A. Primary Care Provider Unavaila ble Reason for Visit Reason Comments Med Refill Encounter Details Date Type Department Care Team Description 04/24/2021 Refill Department of Family Medicine, Vani Purcell, Med Refill [facility], in [place] Gabriel, P .A. [address] [phone] Social History Tobacco Use [...] How often do you attend jain or yarsanism Never 10/23/2020 services? Do you [...] at Date Recorded Female 08/12/2017 10:51 AM PARAPROFESSIONAL EDUCATION ASSISTANT documented as of this encounter Miscellaneous Notes Telephone Encounter - Pauly Pastor - 04/24/2021 12:31 PM CDT Albuterol inhaler is pended. Historical med list shows the prescription has . Please renew orreject as appropriate. Thank you. Now requested by [facility] - Hakeem Genao. documented in this encounter Plan of Treatment Not on filedocumented as of this encounter Visit Diagnoses Not on filedocumented in this encounter Additional Health Concerns Assessment Noted Time PHQ-9 Depression Total Score: 1 04/21/2021 8:46 AM CDT documented as of this encounter Care Teams Shot Dropper Relationship Specialty Start Date End Date Ary Purcell P.A.-C., P.A. PCP - General 06/07/19 01/14/22 documented as of this encounter
--- OUTSIDE RECORDS SUMMARY | 2022-07-20 10:48 | XMS_ITS | Encounter Summary ---
:1995 Author Organization [facility] Address [address] [place] [address] Care Team Providers Name Role Phone Ary [...] Team Description 08/21/2020 Office Visit Department of [facility] Ary Purcell, Per gustavo History Of Infectious And Parasitic Disease (COVID-19) (Primary Dx); Medicine, [place] P.A.-C., P.A. Asth ma Mild Intermittent ([facility]); Clinic, in [place] Asthma Exa cerbation ([facility]) [address] [phone] Social History Tobacco Use Types Packs/Day Years [...] How often do you attend mandaeism or mu-ism Never 10/23/2020 services? Do you [...] at Date Recorded Female 08/12/2017 10:51 AM FITNESS SALES CONSULTANT documented as of this encounter Last Filed Vital Signs Vital Sign Reading Time Taken Comments Blood Pressure 123/83 08/21/2020 11:23 AM FITNESS SALES CONSULTANT Pulse 66 08/21/2020 11:23 AM FITNESS SALES CONSULTANT Temperature 36.3 ??C (97.3 ??F) 08/21/2020 11:23 AM FITNESS SALES CONSULTANT Respiratory Rate 18 08/21/2020 11:23 AM FITNESS SALES CONSULTANT Oxygen Saturation 96% 08/21/2020 11:23 AM FITNESS SALES CONSULTANT Inhaled Oxygen Concentration - - Weight 118 kg (259 lb 4.2 oz) 08/21/2020 11:23 AM FITNESS SALES CONSULTANT Height - - Body Mass Index 41.85 02/20/2019 1:57 PM CDT documented in this encounter Patient Instructions Patient InstructionsAry Purcell, P.A. - 08/21/2020 11:30 AM CST May use OTC antihistamine (Zyrtec or Claritin) or similar for the next few days. May use OTC Flonase twice per day to help with nasal congestion and postnasal drip. Cold/cough remedies also available OTC - DayQuil/NyQuil, Mucinex, [place] Cold/Flu, Robitussin DM, cough/throat lozenges, honey. May use OTC analgesics such as Tylenol/ibuprofen for low grade fevers and body aches. Increase fluid intake. Get plenty of rest. Cover your cough. Wash hands frequently. Prednisone 2 tabs (40mg) daily for 5 days - take with food ESS SALES CONSULTANT documented in this encounter Progress Notes Ary [...] remedies also available OTC - DayQuil/NyQuil, Mucinex, [place] Cold/Flu, Robitussin DM, cough/throat lozenges, honey. May [...] expressed understanding of the content. Ranjana Alexandra ESS SALES CONSULTANT documented in this encounter Plan [...] documented as of this encounter Care Teams Tower Climber Relationship Specialty Start Date End Date Ary Purcell P.A.-Guillermina, P.A. PCP - General 06/07/19 01/14/22 documented as of this encounter
--- OUTSIDE RECORDS SUMMARY | 2022-07-20 10:49 | XMS_ITS | Encounter Summary ---
:1995 Author Organization [facility] Address [address] [place] [address] Care Team Providers Name Role Phone Chandni Urbina APRN, C.N.Mana, D.N.P. Primary Care Provider Reason for Visit Reason Comments Follow-up Infection concerns, swelling , distal part of incision get red and hot Encounter Details Date Type Department Care Team Description 06/01/2019 Office Visit Department of Edwige Lundberg, Fracture An kle Closed Orthopedic Surgery in [place] C.N.P., Initi al [place], D.N.P. [address] [phone] Social History Tobacco Use Types Packs/Day [...] often do you attend latter day or uatsdin Never 10/23/2020 services? 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 [address] [place] [phone] documented as of this encounter
--- OUTSIDE RECORDS SUMMARY | 2022-07-20 10:49 | XMS_ITS | Encounter Summary ---
:1995 Author Organization [facility] Address [address] [place] [address] Care Team Providers Name Role Phone Ary Purcell P.A.-C., P.A. Primary Care Provider Unavaila ble Reason for Visit Reason Comments COVID Nurse Line Encounter Details Date Type Department Care Team Description 12/03/2019 Clinical Communication Central Appointment Line, Covid COVID Nurse Line Office in [facility] [address] [place], [place] [address] Social History Tobacco Use Types Packs/Day Years [...] How often do you attend pentecostalism or zoroastrian Never 10/23/2020 services? 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 If soap and water aren't available, use a hand clinical business manager that contains at least 60% alcohol. Avoid [...] essential items or medical care). Educational Resource: https://www.cdc.gov/coronavirus/2019-ncov/vqixprk-dcwliai-vfqz/index.html Recommendations as testing criteria is met: Stay [...] or 65 years and older. Go to [facility] emergency department if any of the following occur: 1) New shortness of breath at rest, 2) Pain, pressure or tightness unrelated to coughing in the chest, jaw or arm, 3) Newly confused or unable to stay alert and awake. Notify primary care provider if any new or worsening symptoms. Education Resources: https://www.cdc.gov/coronavirus/2019-ncov/ms-unq-sdf-sick/pvahs-tfam-zsgo.html Education: patient/caregiver Patient/caregiver able to teach back Patient agreeable to plan of care: Yes The following references were used: [facility] Nursing judgement documented in this encounter Plan of Treatment Not on filedocumented as of this encounter Visit Diagnoses Not on filedocumented in this encounter Additional Health Concerns Assessment Noted Time PHQ-9 Depression Total Score: 10 11/08/2018 12:47 PM C DT documented as of this encounter Care Teams Insurance Verification Rep Relationship Specialty Start Date End Date Ary Purcell P.A.-C., P.A. PCP - General 06/07/19 01/14/22 documented as of this encounter
--- OUTSIDE RECORDS SUMMARY | 2022-07-20 10:49 | XMS_ITS | Encounter Summary ---
:1995 Author Organization [facility] Address [address] [place] [address] Care Team Providers Name Role Phone Ary [...] Expiration Date Visits Requ ested Visits Authorized [id number] Closed 09/03/2019 09/02/2020 1 1 Encounter Details Date Type Department Care Team Description 09/03/2019 Office Visit Department of Family Ary Purcell Inf ection Upper Respiratory (Primary Dx); Medicine, [place] Gabriel, P.A. Phar yngitis Acute; Clinic, in [facility] d Intermittent (HCC) [address] [phone] Social History Tobacco Use Types Packs/Day Years [...] or the highest technical, or vocational p IntoOutdoorsram degree you have received? 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 documented as of this encounter Last Filed Vital Signs Vital Sign Reading Time Taken Comments Blood Pressure 91/74 09/03/2019 11:00 AM RECORDING STUDIO INTERNSHIP Pulse 77 09/03/2019 11:00 AM RECORDING STUDIO INTERNSHIP Temperature 37 ??C (98.6 ??F) 09/03/2019 11:00 AM RECORDING STUDIO INTERNSHIP Respiratory Rate - - Oxygen Saturation 98% 09/03/2019 11:00 AM RECORDING STUDIO INTERNSHIP Inhaled Oxygen Concentration - - Weight 114 kg (251 lb 12.3 oz) 09/03/2019 11:00 AM RECORDING STUDIO INTERNSHIP Height - - Body Mass Index 40.64 02/20/2019 1:57 PM CDT documented in this encounter Patient Instructions Patient InstructionsAry Purcell, PGonzaloA.-C. - 09/03/2019 11:00 AM CST May use OTC antihistamine (Zyrtec or Claritin) or similar for the next few days. May use OTC Flonase twice per day to help with nasal congestion and postnasal drip. Cold/cough remedies also available OTC - DayQuil/NyQuil, Mucinex, [place] Cold/Flu, Robitussin DM, cough/throat lozenges, honey. May use OTC analgesics such as Tylenol/ibuprofen for low grade fevers and body aches. Increase fluid intake. Get plenty of rest. Cover your cough. Wash hands frequently. Follow up if symptoms worsen or fail to improve over the next several days. RDING STUDIO INTERNSHIP documented in this encounter Progress Notes Ary [...] further needs atthis time. Ary Purcell P.A.-C. RDING STUDIO INTERNSHIP documented in this encounter Plan of Treatment Not on filedocumented as of this encounter Visit Diagnoses Diagnosis Infection Upper Respiratory - Primary Pharyngitis Acute Asthma Mild Intermittent (HCC) documented in this encounter Additional Health Concerns Assessment Noted Time PHQ-9 Depression Total Score: 10 11/08/2018 12:47 PM C DT documented as of this encounter Care Teams Coil Winder Relationship Specialty Start Date End Date Ary Purcell P.A.-C., P.A. PCP - General 06/07/19 01/14/22 documented as of this encounter
--- OUTSIDE RECORDS SUMMARY | 2022-07-20 10:49 | XMS_ITS | Encounter Summary ---
:1995 Author Organization [facility] Address [address] [place] [address] Care Team Providers Name Role Phone Ary Purcell P.A.-C., P.A. Primary Care Provider Unavaila ble Reason for Visit Reason Comments Shortness of Breath having to use neb treatments , low grade temp Appointment Request (Routine) - Closed Specialty Diagnoses / Procedures Referred By Contact Refer red To Contact Family Medicine Referral ID Status Reason Start Date Expiration Date Visits Requ ested Visits Authorized [id number] Closed 12/04/2019 12/03/2020 1 1 Encounter Details Date Type Department Care Team Description 12/04/2019 Telemedicine Department of [facility] Ary Purcell, Sin usitis (Primary Dx); Medicine, [place] PDidier., P.A. Infe ction Upper Respiratory; Clinic, in [place] Asthma Exa cerbation ([address] [phone] Social History Tobacco Use Types Packs/Day Years [...] How often do you attend yarsanism or latter-day Never 10/23/2020 services? 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 - 12/04/2019 1:30 PM CDT SUBJECTIVE CHIEF COMPLAINT/REASON FOR VISIT Carly Bob ZEB Joseph is a 24 y.o. female who presents for evaluation of Shortness of Breath (having to use neb treatments, low grade temp). Consult conducted via real-time audio/video technology by Ary Purcell P.A.-C. in [facility] [place] to the patient's home. HISTORY OF PRESENT ILLNESS Carly is a very pleasant 24-year-old female who presents for a video visit for evaluation of upper respiratory infection. She was swabbed for coronavirus yesterday and found to be negative. 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 She states her symptoms 1st started a [...] documented as of this encounter Care Teams Budget Consultant Relationship Specialty Start Date End Date Ary Purcell P.A.-C., P.A. PCP - General 06/07/19 01/14/22 documented as of this encounter
--- OUTSIDE RECORDS SUMMARY | 2022-07-20 10:49 | XMS_ITS | Encounter Summary ---
:1995 Author Organization [facility] Address [address] [place] [address] Care Team Providers Name Role Phone Ary Purcell P.A.-C., P.A. Primary Care Provider Unavaila ble Reason for Visit Reason Comments Med Refill Encounter Details Date Type Department Care Team Description 07/08/2019 Refill Department of Orthopedic Chandni Urbina APRN, Med Refill Surgery in [place], [place] C.N.P., D.N.P. [address] [facility] [address] [place] [phone] [place] [phone] (Wo rk) Social History Tobacco Use Types [...] How often do you attend yarsanism or mandaeism Never 10/23/2020 services? 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 PCP - General 06/07/19 01/14/22 documented as of this encounter
--- OUTSIDE RECORDS SUMMARY | 2022-07-20 10:49 | XMS_ITS | Encounter Summary ---
:1995 Author Organization [facility] Address [address] [place] [address] Care Team Providers Name Role Phone Chandni Urbina APRN C.N.PGonzalo, D.N.P. Primary Care Provider Reason for Visit Reason Comments Post-op Wound Care Outpatient (Routine) - Closed Specialty Diagnoses / Procedures Referred By Contact Refer red To Contact Orthopedic Surgery Diagnoses Fracture Ankle Closed Initial Left Chandni Urbina, [facility] TOBI C.N.PGonzalo, D.N.P. [address] [place] [address] Referral ID Status Reason Start Date Expiration Date Visits Requ ested Visits Authorized [id number] Closed 02/20/2019 02/20/2020 1 1 Encounter Details Date Type Department Care Team Description 03/29/2019 Office Visit Department of Chandni Urbina, Fracture Ankle Closed Orthopedic Surgery in TO[place] C.N.P., [place], [place] D.N.P. [address] [facility] [address] [place] [address] [phone] Social History Tobacco Use Types Packs/Day Years [...] How often do you attend holiness or yarsanism Never 10/23/2020 services? 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 [address] [place] [address] documented as of this encounter
--- OUTSIDE RECORDS SUMMARY | 2022-07-20 10:49 | XMS_ITS | Encounter Summary ---
:1995 Author Organization [facility] Address [address] [place] [address] Care Team Providers Name Role Phone Ary Purcell P.A.-C., P.A. Primary Care Provider Ailin diaz Encounter Details Date Type Department Care Team Description 05/20/2020 Orders Only [facility] Pharm[facility] - Ary Hamilton, [address] [facility] 1 P.A.-C., [place] [address] Social History Tobacco Use Types [...] How often do you attend episcopal or anabaptism Never 10/23/2020 services? 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 PCP - General 06/07/19 01/14/22 documented as of this encounter
--- OUTSIDE RECORDS SUMMARY | 2022-07-20 10:49 | XMS_ITS | Encounter Summary ---
:1995 Author Organization [facility] Address [address] [place] [address] Care Team Providers Name Role Phone Chandni Urbina APRN, C.N.P., D.N.P. Primary Care Provider Reason for Visit Reason Comments nurse only flu shot Appointment Request (Routine) - Closed Specialty Diagnoses / Procedures Referred By Contact Refer red To Contact Family Medicine Referral ID Status Reason Start Date Expiration Date Visits Requ ested Visits Authorized [id number] Closed 05/18/2019 05/17/2020 1 1 Encounter Details Date Type Department Care Team Description 05/18/2019 Immunization Department of Family Chandni Urbina APRN, C.N.P., D.N.P. [address] [place] [phone] Immunization Only Medicine, Katty Peter, RGonzaloNGonzalo [address] [place] [phone] (Primary Dx) [facility], in [address] [phone] Social History Tobacco Use Types [...] often do you attend latter day or temple Never 10/23/2020 services? 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 [address] [place] [address] documented as of this encounter
--- OUTSIDE RECORDS SUMMARY | 2022-07-20 10:49 | XMS_ITS | Encounter Summary ---
:1995 Author Organization [facility] Address [address] [place] [address] Care Team Providers Name Role Phone Ary Purcell P.A.-C., P.AGonzalo Primary Care Provider Ailin diaz Encounter Details Date Type Department Care Team Description 04/17/2020 E-Visit [facility] at [place], Polina sa, CREDENTIALING SPECIALIST, RE: Cold sores the [place] Building on the [address]th C.N .P[address] Floor [address] [facility] [address] [place] [phone] [phone] (Wo rk) Social History Tobacco Use Types [...] How often do you attend mormonism or catholic Never 10/23/2020 services? 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 PCP - General 06/07/19 01/14/22 documented as of this encounter
--- OUTSIDE RECORDS SUMMARY | 2022-07-20 10:49 | XMS_ITS | Encounter Summary ---
:1995 Author Organization [facility] Address [address] [place] [address] Care Team Providers Name Role Phone Ary [...] How often do you attend orthodox or samaritan Never 10/23/2020 services? Do you [...] the highest level of school Associate degree: clitfon costa, 03/01/2019 you have completed or the highest technical, or vocational margo buenrostro degree you have received? 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 PCP - General 06/07/19 01/14/22 documented as of this encounter
--- OUTSIDE RECORDS SUMMARY | 2022-07-20 10:49 | XMS_ITS | Encounter Summary ---
:1995 Author Organization [facility] Address [address] [place] [address] Care Team Providers Name Role Phone Chandni Urbina APRN, C.N.Mana, D.N.P. Primary Care Provider Encounter Details Date Type Department Care Team Description 04/27/2019 Hospital Encounter Department of Edwige Lundberg Follo w Up Examination Postoperative Visit; Radiology in [place] TOBI C.N.PGonzalo, Celluli tis Leg [place], [place] D.N.P. [address] [place] [phone] Social History Tobacco Use Types Packs/Day Years [...] How often do you attend synagogue or buddhism Never 10/23/2020 services? 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
--- OUTSIDE RECORDS SUMMARY | 2022-07-20 10:49 | XMS_ITS | Encounter Summary ---
:1995 Author Organization [facility] Address [address] [place] [address] Care Team Providers Name Role Phone Chandni Urbina APRN C.N.PGonzalo, D.N.P. Primary Care Provider Reason for Visit Reason Comments Follow-up Patient WBAT, Pain level 08/15 0, Concerned about incision site Outpatient (Routine) - Closed Specialty Diagnoses / Procedures Referred By Contact Refer red To Contact Orthopedic Surgery Edwige Lundberg, TOBI, [facility] C.N.P., D.N.P. [address] [place] [phone] Referral ID Status Reason Start Date Expiration Date Visits Requ ested Visits Authorized [id number] Closed 04/03/2019 04/02/2020 1 1 Encounter Details Date Type Department Care Team Description 04/27/2019 Office Visit Department of Edwige Lundberg, Follow Up E xamination Orthopedic Surgery in TO[place] C.N.PGonzalo, Posto perative Visit [place]ilee KebedeNTeddy (Primary Dx) [address] [phone] Social History Tobacco Use Types Packs/Day Years [...] How often do you attend yazidi or hinduism Never 10/23/2020 services? 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 [address] [place] [address] documented as of this encounter
--- OUTSIDE RECORDS SUMMARY | 2022-07-20 10:49 | XMS_ITS | Encounter Summary ---
:1995 Author Organization [facility] Address [address] [place] [address] Care Team Providers Name Role Phone Chandni Urbina APRN C.N.P., D.N.P. Primary Care Provider Reason for Visit Reason Comments Follow-up Imbedded suture Encounter Details Date Type Department Care Team Description 03/20/2019 Office Visit Department of Edwige Lundberg APRN, C.N.P., D.N.P. [address] [place] [phone] Open Reduction Orthopedic Surgery in Chandni Urbina APRN, C.N.P., D.N.P. [address] [place] [phone] Internal Fixation Hakeem Genao, Ankle Status P ost [place] (Primary Dx) [address] [place] [address] [place] [phone] Social History Tobacco Use Types [...] How often do you attend shinto or oriental orthodox Never 10/23/2020 services? 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 [address] [place] [address] documented as of this encounter
--- OUTSIDE RECORDS SUMMARY | 2022-07-20 10:49 | XMS_ITS | Encounter Summary ---
:1995 Author Organization [facility] [place] Address [address] [place] [address] Care Team Providers Name Role Phone Ary Purcell P.A.-C., P.A. Primary Care Provider Unavaila ble Reason for Visit Reason Onset Date Comments Outpatient COVID-19 Testing 12/03/2019 Encounter Details Date Type Department Care Team Description 12/03/2019 External Outreach Department of Betty Yu Infection Upper Medicine, [place] Jose Armando PGonzaloAGonzalo-Guillermina Respiratory (Primary Clinic, in [place], [address] [place] [address] Dx) [place], [place] 701 [facility] [address] [place], [place] [phone] (Work) [phone] Social History Tobacco Use Types Packs/Day Years [...] How often do you attend tenriism or denominational Never 10/23/2020 services? 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 in a manner co nsistent with CLIA requirements. Independent review by the U.S. Food and Drug Administration is pending. Visit the CDC website: https://www.cdc.gov/coronavirus/ ?? for the most recent guidelines on Toribio virus testing. Fact Sheet for Healthcare Providers: (https://www.[employer]/it-mmfil es/ Provider_Fact_Sheet_for_[facility]_COVI D-19.pdf) Fact Sheet for Patients: (https://www.[employer]/it-mmfil es/ Patient_Fact_Sheet_for_COVID-19.pdf) Specimen Anatomical Collection Method Collection Time Receive d Time (Source) Location / / Volume Laterality Varies 12/03/2019 10:39 12/03/2019 (Nasopharynx) AM CDT 12:52 PM CDT Emmanuel Garcia P.A.-C. LAB MICROBIOLOGY - GENERAL O GILBERTO Performing Organization Address City/State/[facility] Code Phon e Number [facility] - [address] [place] [phone] [employer] [facility] [place] [address] Laboratories-[address] documented in this encounter Visit Diagnoses Diagnosis Infection Upper Respiratory - Primary documented in this encounter Additional Health Concerns Infection Onset Date Last Indicated Resolved Time COVID19 Pending 12/03/2019 12/03/2019 12/03/2019 8:49 PM CDT Assessment Noted Time PHQ-9 Depression Total Score: 10 11/08/2018 12:47 PM C DT documented as of this encounter Care Teams Field Care Coordinator Relationship Specialty Start Date End Date Ary Purcell P.A.-C., P.A. PCP - General 06/07/19 01/14/22 documented as of this encounter
--- OUTSIDE RECORDS SUMMARY | 2022-07-20 10:49 | XMS_ITS | Encounter Summary ---
:1995 Author Organization [facility] Address [address] [place] [address] Care Team Providers Name Role Phone Ary Purcell P.A.-C., P.A. Primary Care Provider Unavaila ble Reason for Visit Reason Comments Sore Throat Aug 03 Nasal Congestion Appointment Request (Routine) - Closed Specialty Diagnoses / Procedures Referred By Contact Refer red To Contact Family Medicine Referral ID Status Reason Start Date Expiration Date Visits Requ ested Visits Authorized [id number] Closed 08/20/2019 08/19/2020 1 1 Encounter Details Date Type Department Care Team Description 08/21/2019 Office Visit Department of Family Ary Purcell, Inf ection Upper Respiratory (Primary Dx); Medicine, [place] Moses., P.A. Phar yngitis Acute Clinic, in [address] [phone] Social History Tobacco Use Types Packs/Day Years [...] How often do you attend hoahaoism or jainism Never 10/23/2020 services? 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 Last Filed Vital Signs Vital Sign Reading Time Taken Comments Blood Pressure 115/81 08/21/2019 2:25 PM CRIMPING MACHINE OPERATOR Pulse 70 08/21/2019 2:25 PM CRIMPING MACHINE OPERATOR Temperature 36.7 ??C (98.1 ??F) 08/21/2019 2:25 PM CRIMPING MACHINE OPERATOR Respiratory Rate 20 08/21/2019 2:25 PM CRIMPING MACHINE OPERATOR Oxygen Saturation 98% 08/21/2019 2:25 PM CRIMPING MACHINE OPERATOR Inhaled Oxygen Concentration - - Weight 115 kg (253 lb 8.5 oz) 08/21/2019 2:25 PM CRIMPING MACHINE OPERATOR Height - - Body Mass Index [...] remedies also available OTC - DayQuil/NyQuil, Mucinex, Sandra-Wall Cold/Flu, Robitussin DM, cough/throat lozenges, honey. May use OTC analgesics such as Tylenol/ibuprofen for low grade fevers and body aches. Increase fluid intake. Get plenty of rest. Cover your cough. Wash hands frequently. Follow up if symptoms worsen or fail to improve over the next several days. PING MACHINE OPERATOR documented in this encounter Progress [...] swab today. Her pharmacy of choice is [facility]. 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 Ary Purcell P.A.-C. PING MACHINE OPERATOR documented in this encounter Plan of Treatment Not on filedocumented as of this encounter Procedures Procedure Name Priority Date/Time Associated Diagnosis Comme nts STREP GROUP A, PCR, Routine 08/21/2019 3:02 PM Re sults for this POCT CRIMPING MACHINE OPERATOR procedure are i n the results section. STREP GROUP A, PCR, Routine 08/21/2019 2:43 PM Pharyngitis Acu te Results for this POCT CRIMPING MACHINE OPERATOR procedure are i n the results section. documented in this encounter Results Strep Group A, PCR, Point of Care (08/21/2019 3:02 PM CRIMPING MACHINE OPERATOR) P athologist Signature Strep Group A, Negative Negative 08/21/2019 CNFL PCR, POCT 3:02 PM CRIMPING MACHINE OPERATOR Specimen Anatomical Collection Method Collection Time Receive d Time (Source) Location / / Volume Laterality Varies 08/21/2019 3:02 PM 0 3:03 CRIMPING MACHINE OPERATOR PM CRIMPING MACHINE OPERATOR Generic [facility]als LAB POCT ORDERABLES - DEVICE Performing Organization Address City/State/[facility] Code Phon e Number [address] [address] [place] [address] System [address] Strep Group A, PCR, Point of Care (08/21/2019 2:43 PM CRIMPING MACHINE OPERATOR) Analysis Performed At Patho logist Time Signature Strep Group A, Collected DEFAULT 08/21/2019 [facility] PCR, POCT 2:43 PM CRIMPING MACHINE OPERATOR Specimen Anatomical Collection Method Collection Time Receive d Time (Source) Location / / Volume Laterality Varies (Throat) 08/21/2019 2:43 PM 2019 2:43 CRIMPING MACHINE OPERATOR PM CRIMPING MACHINE OPERATOR Ary Purcell P.A.-C., P.A. LAB POCT ORDERABLES - DEV ICE Performing Organization Address City/State/[facility] Phon e Number [address] [place] [address] System in [address] documented in this encounter Visit Diagnoses Diagnosis Infection Upper Respiratory - Primary Pharyngitis Acute documented in this encounter Additional Health Concerns Assessment Noted Time PHQ-9 Depression Total Score: 10 11/08/2018 12:47 PM C DT documented as of this encounter Care Teams Chair Trimmer Relationship Specialty Start Date End Date Ary Purcell P.A.-C., P.A. PCP - General 06/07/19 01/14/22 documented as of this encounter
--- OUTSIDE RECORDS SUMMARY | 2022-07-20 10:49 | XMS_ITS | Encounter Summary ---
:1995 Author Organization [facility] Address [address] [place] [address] Care Team Providers Name Role Phone Ary Purcell P.A.-C., P.A. Primary Care Provider Unavaila ble Reason for Visit Reason Comments Med Refill Encounter Details Date Type Department Care Team Description 03/19/2020 Refill Department of Obstetrics and [facility], [facility] ndanabela, WATER ATTENDANT, Med Refill Gynecology in [facility] ELOY, M.S .N., B.S.N., R.N. [phone] [place] [phone] Social History Tobacco Use Types Packs/Day Years [...] How often do you attend sikh or latter day Never 10/23/2020 services? 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 PCP - General 06/07/19 01/14/22 documented as of this encounter
--- OUTSIDE RECORDS SUMMARY | 2022-07-20 10:49 | XMS_ITS | Encounter Summary ---
:1995 Author Organization [facility] Address [address] [place] [address] Care Team Providers Name Role Phone Chandni Urbina APRN C.N.P., D.N.P. Primary Care Provider Reason for Referral Outpatient (Routine) - Closed Specialty Diagnoses / Procedures Referred By Contact Refer red To Contact Orthopedic Surgery Diagnoses Follow Up Examination Postoperative Visit Cellulitis Leg Left Chandni Urbina, [facility] TOBI C.N.P., D.N.P. [address] [place] [address] Referral ID Status Reason Start Date Expiration Date Visits Requ ested Visits Authorized [id number] Closed 03/26/2019 03/25/2020 1 1 Encounter Details Date Type Department Care Team Description 03/26/2019 Office Visit Department of Ricki Corona M.D. [address] [place] [address] Follow Up Examination Postoperative Visi t (Primary Dx); Orthopedic Surgery in Chandni Urbina APRN C.N.P., D.N.P. [address] [phone] Cellulitis Leg Left Boby Zaragoza [address] [phone] Social History Tobacco Use Types Packs/Day Years [...] How often do you attend lutheran or mandaeism Never 10/23/2020 services? 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 She was encouraged to continue nfej-wci-uxiasix analgesics, ice, elevation and rest. She will [...] Name Type Priority Associated Diagnoses Order S [facility] Orthopedic Surgery Outpatient Referral Routine Follow [...] documented as of this encounter Care Teams Panel Flow Machine Operator Relationship Specialty Start Date End Date Chandni Urbina APRN, C.N.P., PCP - General Family Medicine 06/06/19 D.N.P. [address] [phone] documented as of this encounter
--- OUTSIDE RECORDS SUMMARY | 2022-07-20 10:49 | XMS_ITS | Encounter Summary ---
:1995 Author Organization [facility] Address [address] [place] [address] Care Team Providers Name Role Phone Chandni Urbina APRN C.N.P., D.N.P. Primary Care Provider Reason for Referral Outpatient (Routine) - Closed Specialty Diagnoses / Procedures Referred By Contact Refer red To Contact Orthopedic Surgery Edwige Lundberg APRN, [facility] C.N.P., D.N.P. [address] [place] [phone] Referral ID Status Reason Start Date Expiration Date Visits Requ ested Visits Authorized [id number] Closed 04/03/2019 04/02/2020 1 1 Reason for Visit Reason Comments Fracture Follow-up Infection Outpatient (Routine) - Closed Specialty Diagnoses / Procedures Referred By Contact Modesta mullen To Contact Orthopedic Surgery Diagnoses Follow Up Examination Postoperative Visit Cellulitis Leg Left Chandni Urbina [facility] TOBI, C.N.P., D.N.P. [address] [place] [address] Referral ID Status Reason Start Date Expiration Date Visits Requ ested Visits Authorized [id number] Closed 03/26/2019 03/25/2020 1 1 Encounter Details Date Type Department Care Team Description 04/03/2019 Office Visit Department of Edwige Lundberg, Follow Up E xamination Postoperative Visit; Orthopedic Surgery in SUPERVISOR TELEPHONE ANSWERING SERVICE, C.N.P., Cellu litis Leg Left [place], D.N.P. [address] [place] [phone] Social History Tobacco Use Types Packs/Day [...] How often do you attend sabianism or sikhism Never 10/23/2020 services? 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 [address] [place] [address] documented as of this encounter
--- OUTSIDE RECORDS SUMMARY | 2022-07-20 10:49 | XMS_ITS | Encounter Summary ---
:1995 Author Organization [facility] Address [address] [place] [address] Care Team Providers Name Role Phone Chandni Urbina APRN, C.N.Mana, D.N.P. Primary Care Provider Encounter Details Date Type Department Care Team Description 03/27/2019 Clinical Communication Department of [facility] Chandni Urbina, Medicine, [place], C.N.P., Clinic, in [place] [address] [phone] Social History Tobacco Use Types Packs/Day Years [...] How often do you attend denominational or mormon Never 10/23/2020 services? 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 documented in this encounter Plan of Treatment Not on filedocumented as of this encounter Visit Diagnoses Not on filedocumented in this encounter Additional Health Concerns Assessment Noted Time PHQ-9 Depression Total Score: 10 11/08/2018 12:47 PM C DT documented as of this encounter Care Teams Elementary Education Tutor Relationship Specialty Start Date End Date Chandni Urbina, TO[place], C.N.P., PCP - General Family Medicine 06/06/19 D.N.P. [address] [place] [address] documented as of this encounter
--- OUTSIDE RECORDS SUMMARY | 2022-07-20 10:49 | XMS_ITS | Encounter Summary ---
:1995 Author Organization [facility] Address [address] [place] [address] Care Team Providers Name Role Phone Ary Purcell P.AGonzalo-C., P.A. Primary Care Provider Unavaila ble Reason for Visit Reason Comments Med Refill Encounter Details Date Type Department Care Team Description 01/11/2020 Refill Department of Orthopedic Ary Purcell, Med Refill Surgery in [place], [place] P.A.-C., P.A. 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 PCP - General 06/07/19 01/14/22 documented as of this encounter
--- OUTSIDE RECORDS SUMMARY | 2022-07-20 10:49 | XMS_ITS | Encounter Summary ---
:1995 Author Organization [facility] Address [address] [place] [address] Care Team Providers Name Role Phone Ary Purcell P.A.-C., P.A. Primary Care Provider Ailin diaz Encounter Details Date Type Department Care Team Description 10/15/2019 Clinical Communication Department of Vani Salazar, Medicine, [place], P[facility]A. Clinic, in [address] [phone] Social History Tobacco Use Types Packs/Day Years [...] How often do you attend moravian or nondenominational Never 10/23/2020 services? 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 We may contact Carly at [phone] and she states we may leave a detailed message, should we receive her voicemail. PPER APPRENTICE documented in this encounter Plan of Treatment Not on filedocumented as of this encounter Results QuantiFERON-Tb Gold Plus, Blood (10/16/2019 2:38 PM STRIPPER APPRENTICE) P athologist Signature QuantiFERON-TB Negative Negative 10/18/2019 ECLR Gold Plus 1:34 PM STRIPPER APPRENTICE Result Comment: No interferon-gamma response to M. [...] Nil Result 0.00 IU/mL 10/18/2019 1:34 PM STRIPPER APPRENTICE ECLR TB2 Ag minus Nil Result 0.00 IU/mL 10/18/2019 1:34 PM STRIPPER APPRENTICE ECLR Mitogen minus Nil Result >10.00 IU/mL 10/18/2019 1:34 PM STRIPPER APPRENTICE ECLR Nil Result 0.02 IU/mL 10/18/2019 1:34 PM STRIPPER APPRENTICE ECLR Specimen Anatomical Collection Method Collection Time Receive d Time (Source) Location / / Volume Laterality Blood (Blood, 10/16/2019 2:38 PM 10/16/19 20 9:46 Venous) STRIPPER APPRENTICE PM STRIPPER APPRENTICE Narrative [facility] - 10/18/2019 1:34 PM STRIPPER APPRENTICE Specimen Information: Specimen ID: [id number] Specimen Type: Blood Specimen Collection Start Date: 0 ??2:38 PM Specimen Received Date: 10/16/2019 ??9:46 PM Specimen ID: [id number] Specimen Type: Blood Specimen Collection Start Date: 0 ??2:38 PM Specimen Received Date: 10/16/2019 ??9:46 PM Specimen ID: [id number] Specimen Type: Blood Specimen Collection Start Date: 0 ??2:38 PM Specimen Received Date: 10/16/2019 ??9:46 PM Specimen ID: [id number] Specimen Type: Blood Specimen Collection Start Date: 0 ??2:38 PM Specimen Received Date: 10/16/2019 ??9:46 PM Ary Purcell P.A.-C., P.A. LAB MICROBIOLOGY - BLOOD ORDERABLES Performing Organization Address City/State/ZIP Code Phon e Number [facility]- [address] [place] [address] [place] [address] System in [address] documented in this encounter Visit Diagnoses Diagnosis Screening Test Laboratory - Primary Screening Test Laboratory documented in this encounter Additional Health Concerns Assessment Noted Time PHQ-9 Depression Total Score: 10 11/08/2018 12:47 PM C DT documented as of this encounter Care Teams Crop Pest Control Specialist Relationship Specialty Start Date End Date Ary Purcell P.A.-C., P.A. PCP - General 06/07/19 01/14/22 documented as of this encounter
--- OUTSIDE RECORDS SUMMARY | 2022-07-20 10:49 | XMS_ITS | Encounter Summary ---
:1995 Author Organization [facility] Address [address] [place] [address] Care Team Providers Name Role Phone Ary Purcell P.A.-C. P.AGonzalo Primary Care Provider Ailin diaz Encounter Details Date Type Department Care Team Description 08/20/2019 [facility], in [address] [place], [place] [address] [place] [address] Social History Tobacco Use Types Packs/Day Years [...] How often do you attend judaism or holiness Never 10/23/2020 services? Do you [...] MANAGEMENT ENGINEER documented as of this encounter Plan of Treatment Not on filedocumented as of this encounter Visit Diagnoses Not on filedocumented in this encounter Additional Health Concerns Assessment Noted Time PHQ-9 Depression Total Score: 10 11/08/2018 12:47 PM C DT documented as of this encounter Care Teams Sterile Processing Technician Relationship Specialty Start Date End Date Ary Purcell P.A.-C., P.A. PCP - General 06/07/19 01/14/22 documented as of this encounter
--- OUTSIDE RECORDS SUMMARY | 2022-07-20 10:49 | XMS_ITS | Encounter Summary ---
:1995 Author Organization [facility] Address [address] [place] [address] Care Team Providers Name Role Phone Chandni Urbina APRN C.N.P., D.N.P. Primary Care Provider Encounter Details Date Type Department Care Team Description 03/26/2019 Hospital Encounter Department of Chandni Urbina Follow Up Examination Radiology in [place] Heller APRN, Postoperati ve Visit [place], [place] C.N.P., D.N.P. [address] [facility] [address] [place] [phone] Social History Tobacco Use Types Packs/Day Years [...] How often do you attend restorationism or jewish Never 10/23/2020 services? 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 [address] [place] [address] documented as of this encounter
--- OUTSIDE RECORDS SUMMARY | 2022-07-20 10:49 | XMS_ITS | Encounter Summary ---
:1995 Author Organization [facility] Address [address] [place] [address] Care Team Providers Name Role Phone Chandni Urbina APRN, C.N.Mana, D.N.P. Primary Care Provider Reason for Visit Reason Onset Date Comments Fax number 05/08/2019 Encounter Details Date Type Department Care Team Description 05/08/2019 Clinical Communication Department of Edwige Lundberg F ax number Orthopedic Surgery in [place] C.NTeddy, [place], D.N.P. [address] [phone] Social History Tobacco Use Types Packs/Day Years [...] How often do you attend confucianist or zoroastrianism Never 10/23/2020 services? 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 Attn Kaya Meng Current Can Nursing/Provider leave [...] as of this encounter Care Teams Personal Computer Network Engineer Relationship Specialty Start Date End Date Chandni Urbina APRN, C.N.P., PCP - General Family Medicine 06/06/19 D.N.P. [address] [place] [address] documented as of this encounter
--- OUTSIDE RECORDS SUMMARY | 2022-07-20 10:49 | XMS_ITS | Encounter Summary ---
:1995 Author Organization [facility] Address [address] [place] [address] Care Team Providers Name Role Phone Ary Purcell P.A.-C., P.A. Primary Care Provider Ailin diaz Encounter Details Date Type Department Care Team Description 10/16/2019 Hospital Encounter Department of Ary Purcelli ng Test Laboratory Medicine Gabriel Heller, Laborato ry in [address] [phone] Social History Tobacco Use Types Packs/Day Years [...] How often do you attend yarsani or mosque Never 10/23/2020 services? 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 documented in this encounter Results QuantiFERON-Tb Gold Plus, Blood (10/16/2019 2:38 PM WIND TURBINE SHEET METAL WORKER) athologist Signature QuantiFERON-TB Negative Negative 10/18/2019 ECLR Gold Plus 1:34 PM WIND TURBINE SHEET METAL WORKER Result Comment: No interferon-gamma response to M. [...] Nil Result 0.00 IU/mL 10/18/2019 1:34 PM WIND TURBINE SHEET METAL WORKER ECLR TB2 Ag minus Nil Result 0.00 IU/mL 10/18/2019 1:34 PM WIND TURBINE SHEET METAL WORKER ECLR Mitogen minus Nil Result >10.00 IU/mL 10/18/2019 1:34 PM WIND TURBINE SHEET METAL WORKER ECLR Nil Result 0.02 IU/mL 10/18/2019 1:34 PM WIND TURBINE SHEET METAL WORKER ECLR Specimen Anatomical Collection Method Collection Time Receive d Time (Source) Location / / Volume Laterality Blood (Blood, 10/16/2019 2:38 PM 10/16/19 20 9:46 Venous) WIND TURBINE SHEET METAL WORKER PM WIND TURBINE SHEET METAL WORKER Narrative [facility] - 10/18/2019 1:34 PM WIND TURBINE SHEET METAL WORKER Specimen Information: Specimen ID: [id number] Specimen Type: Blood Specimen Collection Start Date: 0 ??2:38 PM Specimen Received Date: 10/16/2019 ??9:46 PM Specimen ID: [id number] Specimen Type: Blood Specimen Collection Start Date: 0 ??2:38 PM Specimen Received Date: 10/16/2019 ??9:46 PM Specimen ID: [id number] Specimen Type: Blood Specimen Collection Start Date: 0 ??2:38 PM Specimen Received Date: 10/16/2019 ??9:46 PM Specimen ID: [id number] Specimen Type: Blood Specimen Collection Start Date: 0 ??2:38 PM Specimen Received Date: 10/16/2019 ??9:46 PM Ary Purcell P.A.-C., P.A. LAB MICROBIOLOGY - BLOOD ORDERABLES Performing Organization Address City/State/[facility] Phon e Number [facility]- [address] [place] [phone] [facility] [place] [address] System in [address] documented in this encounter Visit Diagnoses Diagnosis Screening Test Laboratory documented in this encounter Additional Health Concerns Assessment Noted Time PHQ-9 Depression Total Score: 11/08/2018 12:47 PM C DT documented as of this encounter Care Teams Social Service Technician Relationship Specialty Start Date End Date Ary Purcell P.A.-C., P.A. PCP - General 06/07/19 01/14/22 documented as of this encounter
--- OUTSIDE RECORDS SUMMARY | 2022-07-20 10:49 | XMS_ITS | Encounter Summary ---
:1995 Author Organization [facility] Address [address] [place] [address] Care Team Providers Name Role Phone Chandni Urbina APRN, C.N.P., D.N.P. Primary Care Provider Encounter Details Date Type Department Care Team Description 03/19/2019 Orders Only Department of Orthopedic Chandni Urbina APRN, Surgery in [place], C.N.P., D.N .P. [address] [phone] [place] [address] [phone] Social History Tobacco Use Types Packs/Day Years [...] How often do you attend taoist or episcopalian Never 10/23/2020 services? 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 [address] [place] [phone] documented as of this encounter
--- OUTSIDE RECORDS SUMMARY | 2022-07-20 10:50 | XMS_ITS | Encounter Summary ---
:1995 Author Organization [facility] Address [address] [place] [address] Care Team Providers Name Role Phone Chandni Urbina APRN C.N.Rodrigo., D.N.P. Primary Care Provider Reason for Visit Reason Comments Med Refill Encounter Details Date Type Department Care Team Description 08/31/2018 Refill Department of Family Medicine, Mitchell Saucedo, Med Refill [facility], in [facility] [address] [address] [place], [place] [address] [phone] Social History Tobacco Use Types Packs/Day Years [...] How often do you attend scientology or adventism Never 10/23/2020 services? 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 [address] [place] [address] documented as of this encounter
--- OUTSIDE RECORDS SUMMARY | 2022-07-20 10:50 | XMS_ITS | Encounter Summary ---
:1995 Author Organization [facility] Address [address] [place] [address] Care Team Providers Name Role Phone Chandni Urbina APRN C.N.P., D.N.P. Primary Care Provider Reason for Visit Reason Comments Pain Outpatient (Routine) - Closed Specialty Diagnoses / Procedures Referred By Contact Refer red To Contact Orthopedic Surgery Diagnoses Pain Ankle Left Edwige Lundberg APRN, [facility] C.N.P., D.N.P. [address] [place] [phone] Referral ID Status Reason Start Date Expiration Date Visits Requ ested Visits Authorized [id number] Closed 02/19/2019 02/19/2020 1 1 Encounter Details Date Type Department Care Team Description 03/06/2019 Office Visit Department of Orthopedic Edwige Lundberg, Pain Ankle Left Surgery in [facility] [place], C .N.P., D.N.P. [address] [phone] [phone] Social History Tobacco Use Types Packs/Day Years [...] How often do you attend restorationism or voodoo Never 10/23/2020 services? 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 Improved soft tissue swelling. Mitchell Gibbons APRN.N.P., D.N.P. IMG DIAGNOSTIC IMAG ING PROCEDURES documented in this encounter Visit Diagnoses Diagnosis Pain Ankle Left Pain Ankle Left documented in this encounter Additional Health Concerns Assessment Noted Time PHQ-9 Depression Total Score: 10 11/08/2018 12:47 PM C DT documented as of this encounter Care Teams Machine Room Operator Relationship Specialty Start Date End Date Chandni Urbina APRN, C.N.P., PCP - General Family Medicine 06/06/19 D.N.P. [address] [place] [phone] documented as of this encounter
--- OUTSIDE RECORDS SUMMARY | 2022-07-20 10:50 | XMS_ITS | Encounter Summary ---
:1995 [facility] Organization [facility] Address [address] [place] [address] Care Team Providers Name Role Phone Chandni Urbina APRN, C.N.Mana, D.N.P. Primary Care Provider Reason for Visit Reason Comments Annual Exam Appointment Request (Routine) - Closed Specialty Diagnoses / Procedures Referred By Contact Refer red To Contact Family Medicine Referral ID Status Reason Start Date Expiration Date Visits Requ ested Visits Authorized [id number] Closed 10/09/2018 10/09/2019 1 Encounter Details Date Type Department Care Team Description 10/12/2018 Comprehensive Visit Department of Chandni Urbina Adult Examination Normal (Primary Dx); Family Medicine, TOBI Heller, Counseling And Review Vaccination Status [place] C.N.PGonzalo, D.N.P. [facility], [place] [address] [facility] [phone] [place], [place] (Work) [address] Social History Tobacco Use [...] How often do you attend rastafari or baptism Never 10/23/2020 services? 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 documented as of this encounter Last Filed Vital Signs Vital Sign Reading Time Taken Comments Blood Pressure 123/67 10/12/2018 8:57 AM COMMUNITY DEVELOPMENT PLANNER Pulse 74 10/12/2018 8:57 AM COMMUNITY DEVELOPMENT PLANNER Temperature 36.8 ??C (98.2 ??F) 10/12/2018 8:57 AM COMMUNITY DEVELOPMENT PLANNER Respiratory Rate 20 10/12/2018 8:57 AM COMMUNITY DEVELOPMENT PLANNER Oxygen Saturation 98% 10/12/2018 8:57 AM COMMUNITY DEVELOPMENT PLANNER Inhaled Oxygen Concentration - - Weight 106 kg (234 lb 5.6 oz) 10/12/2018 8:57 AM COMMUNITY DEVELOPMENT PLANNER Height 168 cm (5' 6.14) 10/12/2018 8:57 AM COMMUNITY DEVELOPMENT PLANNER Body Mass Index 37.66 10/12/2018 8:57 AM COMMUNITY DEVELOPMENT PLANNER documented in this encounter H&P Notes Chandni [...] the content. Chandni Urbina APRN, C.N.P., D.N.P. UNITY DEVELOPMENT PLANNER documented in this encounter Plan of Treatment Not on filedocumented as of this encounter Procedures Procedure Name Priority Date/Time Associated Diagnosis Comme nts QUANTIFERON-TB GOLD Routine 10/12/2018 9:57 AM Counseling And Results for this PLUS, B COMMUNITY DEVELOPMENT PLANNER Review Vaccination procedure are in Status the results section. MMRV IMMUNE STATUS Routine 10/12/2018 9:39 AM Counseling And R esults for this PROFILE COMMUNITY DEVELOPMENT PLANNER Review Vaccination procedure are in Status the results section. HEPATITIS B SURFACE Routine 10/12/2018 9:39 AM Counseling And Results for this ANTIGEN COMMUNITY DEVELOPMENT PLANNER Review Vaccination procedure are in Status the results section. documented in this encounter Results QuantiFERON-Tb Gold Plus, Blood (10/12/2018 9:57 AM COMMUNITY DEVELOPMENT PLANNER) P athologist Signature QuantiFERON-TB Negative Negative 10/16/2018 [facility] Gold Plus 11:27 AM COMMUNITY DEVELOPMENT PLANNER [facility] Result [facility]- [facility] Comment: No interferon-gamma response to [...] of Tuberculosis in Adults and Children [Abhinav DM et. al. Clin. Infect. Dis. 2017;64(2):111-115]. The reference range for the 'TB1 Ag ninoska s Nil Result' and 'TB2 Ag minus Nil Result' is an Inte rferon-gamma level <0.35 IU/mL. TB1 Ag minus Nil 0.00 IU/mL 10/16/2018 11:27 AM COMMUNITY DEVELOPMENT PLANNER [facility] TB2 Ag minus Nil 0.00 IU/mL 10/16/2018 11:27 AM COMMUNITY DEVELOPMENT PLANNER [facility] Mitogen minus Nil >10.00 IU/mL 10/16/2018 11:27 AM CS T [facility] Nil Result 0.02 IU/mL 10/16/2018 11:27 AM COMMUNITY DEVELOPMENT PLANNER [facility] Specimen Anatomical Collection Method Collection Time Receive d Time (Source) Location / / Volume Laterality Blood (Blood, 10/12/2018 9:57 AM 10/14/19 3:14 Venous) COMMUNITY DEVELOPMENT PLANNER PM COMMUNITY DEVELOPMENT PLANNER Narrative [facility] - 10/16/2018 11:27 AM COMMUNITY DEVELOPMENT PLANNER Specimen Information: Specimen ID: [id number] Specimen Type: Blood Specimen Collection Start Date: 10/12/19 ??9:57 AM Specimen Received Date: 10/13/2018 ??3:14 PM Specimen ID: [id number] Specimen Type: Blood Specimen Collection Start Date: 10/12/19 ??9:58 AM Specimen Received Date: 10/13/2018 ??3:14 PM Specimen ID: [id number] Specimen Type: Blood Specimen Collection Start Date: 10/12/19 ??9:58 AM Specimen Received Date: 10/13/2018 ??3:14 PM Specimen ID: [id number] Specimen Type: Blood Specimen Collection Start Date: 10/12/19 ??9:57 AM Specimen Received Date: 10/13/2018 ??3:14 PM Mitchell Geller APRN.N.P., D.N.P. LAB MICROBIOLOGY - BLOOD ORDERABLES Performing Organization Address City/State/ZIP Code Phon e Number [facility] [address] [facility] [place] [address] [facility] MMRV Immune Status Profile (10/12/2018 9:39 AM COMMUNITY DEVELOPMENT PLANNER) P athologist Signature Measles Positive 10/13/2018 [facility] ([place]) Ab, 11:[address] [facility] IgG, S [facility] Comment: Results suggest response to immunization or prior exposure to the virus. ----REFERENCE VALUE---- Vaccinated: Positive (>=1.1 AI) Unvaccinated: Negative (<=0.8 AI) Measles IgG Antibody 4.7 10/13/2018 11:36 AM [facility] Mumps Ab, IgG, S Positive 10/13/2018 11:36 AM [facility] Comment: Results suggest response to immunization or prior exposure to the virus. ----REFERENCE VALUE---- Vaccinated: Positive (>=1.1 AI) Unvaccinated: Negative (<=0.8 AI) Mumps IgG Antibody 1.7 10/13/2018 11:36 AM C Formerly named [facility] Rubella Ab, IgG, S Positive 10/13/2018 11:36 AM C [facility] Comment: Results suggest response to immunization or prior exposure to the virus. ----REFERENCE VALUE---- Vaccinated: Positive (>=1.0 AI) Unvaccinated: Negative (<=0.7 AI) Rubella IgG Antibody 2.2 10/13/2018 11:36 AM [facility] Varicella-Zoster Ab, Positive 10/13/2018 11:36 AM [facility] IgG, S [facility] Comment: Results suggest response to immunization or prior exposure to the virus. ----REFERENCE VALUE---- Vaccinated: Positive (>=1.1 AI) Unvaccinated: Negative (<=0.8 AI) Varicella IgG Antibody 3.3 10/13/2018 11:36 AM COMMUNITY DEVELOPMENT PLANNER [facility] Specimen Anatomical Collection Method Collection Time Receive d Time (Source) Location / / Volume Laterality Blood (Blood, 10/12/2018 9:39 AM 10/12/19 19 2:26 Venous) COMMUNITY DEVELOPMENT PLANNER PM COMMUNITY DEVELOPMENT PLANNER Chandni Urbina APRN, C.N.P., D.N.P. LAB MICROBIOLOGY - BLOOD ORDERABLES Performing Organization Address City/[facility] Phon e Number [address] [address] [facility] Hepatitis B Surface Antigen (10/12/2018 9:39 AM COMMUNITY DEVELOPMENT PLANNER) [facility] Method Time Signature HBs Antigen, Nonreactive Nonreactive 10/13/2018 [facility] S 11:52 AM COMMUNITY DEVELOPMENT PLANNER [facility] Specimen Anatomical Collection Method Collection Time Receive d Time (Source) Location / / Volume Laterality Blood (Blood, 10/12/2018 9:39 AM 10/12/19 19 2:26 Venous) COMMUNITY DEVELOPMENT PLANNER PM COMMUNITY DEVELOPMENT PLANNER Chandni Urbina APRN, C.N.P., D.N.P. LAB MICROBIOLOGY - BLOOD ORDERABLES Performing Organization Address City/[facility] Phon e Number [address] [address] [facility] documented in this encounter Visit Diagnoses Diagnosis Well Adult Examination Normal - Primary Counseling And Review Vaccination Status documented in this encounter Additional Health Concerns Assessment Noted Time PHQ-9 Depression Total Score: 15 10/11/2018 12:[address] documented as of this encounter Care Teams Interventional Physician Relationship Specialty Start Date End Date Chandni Urbina APRN, C.N.P., PCP - General Family Medicine 06/06/19 D.N.P. [address] [phone] documented as of this encounter
--- OUTSIDE RECORDS SUMMARY | 2022-07-20 10:50 | XMS_ITS | Encounter Summary ---
:1995 Author Organization [facility] Address [address] [place] [address] Care Team Providers Name Role Phone Chandni Urbina APRN C.N.P., D.N.P. Primary Care Provider Reason for Visit Auth/Cert Specialty Diagnoses / Procedures Referred By Contact Refer red To Contact Diagnoses Fracture Ankle Closed Initial Left Fracture Ankle Closed Initial Left [S82.892A] Procedures CO CLSD TX DIST FIB WO MANIP OPEN REDUCTION INTERNAL FIXATION ANKLE Referral ID Status Reason Start Date Expiration Date Visits Requ ested Visits Authorized [id number] 1 1 Encounter Details Date Type Department Care Team Description 02/20/2019 Surgery [facility] Bruno Spivey, OPEN REDUCTION INTERNAL [address] [place] [address] Richard FIXATION ANKLE [place], [place] [address] [place] [address] [place], [place] [phone] (Wo rk) Social History Tobacco Use [...] often do you attend jehovah's witness or pentecostalism Never 10/23/2020 services? 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 POST-OPERATIVE DIAGNOSIS Left ankle Church B fracture with syndesmotic disruption. PROCEDURE(S) Open reduction/internal fixation of left ankle fracture with syndesmotic fixation. SURGEON(S) Bruno Spivey M.D. ANESTHESIA TYPE Spinal anesthesia. PIE BOTTOMER: Chandni Urbina APRN, C.N.P., D.N.P. I requested [...] Implant Name Type Inv. Item Serial No. Syrup Maker Cook Lot No. LRB No. Used Knotless TightRope Syndesmosis Repair Implant, Stainless Steel Ankle Implant Arthrex [id number] FTHRD LCK 4.0X16 - [id number] Hardware e.g. pins/screws/rods SCRW LCP ST FTHRD LCK 4.0X16 Depuy Synthes Left [address] FTHRD LCK 4.0X18 - [id number] Hardware e.g. pins/screws/rods SCRW LCP ST FTHRD LCK 4.0X18 Depuy Synthes Left 1 PLT FIB LCD 1/3 TUB 7H LCK 85 - [id number] Hardware e.g. pins/screws/rods PLT FIB LCD 1/3 TUB 7H LCK 85 Depuy Synthes Left [address] FTHRD 3.5X24 - [id number] Hardware e.g. pins/screws/rods SCRW DCP ST FTHRD 3.5X24 Depuy Synthes Left [address] FTHRD 3.5X10 - [id number] Hardware e.g. pins/screws/rods SCRW DCP ST FTHRD 3.5X10 Depuy Synthes Left [address] FTHRD 3.5X12 - S204.012 - [id number] Ankle Implant SCRW LCD ST FTHRD 3.5X12 [...] Role: * Bruno Spivey M.D. - Primary Chinese Herbalist: Chandni Urbina APRN, C.N.P., D.N.P. Anesthesia Type Regional Pre-operative Diagnosis * Fracture Ankle Closed Initial Left [S82.820G] Brief Operative Note Details Specimens None Drains None Estimated Blood Loss None Implants Implant Name Type Inv. Item Serial No. Syrup Maker Cook Lot No. LRB No. Used Knotless TightRope Syndesmosis Repair Implant, Stainless Steel Ankle Implant Arthrex [id number] Left [address] FTHRD LCK 4.0X16 - [id number] Hardware e.g. pins/screws/rods SCRW LCP ST FTHRD LCK 4.0X16 Depuy Synthes Left [address] FTHRD LCK 4.0X18 - [id number] Hardware e.g. pins/screws/rods SCRW LCP ST FTHRD LCK 4.0X18 Depuy Synthes Left 1 PLT FIB LCD 1/3 TUB 7H LCK 85 - [id number] Hardware e.g. pins/screws/rods PLT FIB LCD 1/3 TUB 7H LCK 85 Depuy Synthes Left [address] FTHRD 3.5X24 - [id number] Hardware e.g. pins/screws/rods SCRW DCP ST FTHRD 3.5X24 Depuy Synthes Left [address] FTHRD 3.5X10 - [id number] Hardware e.g. pins/screws/rods SCRW DCP ST FTHRD 3.5X10 Depuy Synthes Left [address] FTHRD 3.5X12 - S204.012 - [id number] Ankle Implant SCRW LCD ST FTHRD 3.5X12 [...] 1534 (Given - Provider: Pavan De Souza, MANUGRAPHER, SPORT INTERN) 600 mg (rounded from 825 mg = [...] Verify - Provider: Pavan De Souza APRN, SPORT INTERN)1626 (Anesthesia Volume Adjustment - Provider: Pavan De Souza APRN, SPORT INTERN) 20 mL/hr, intravenous, Continuous, Starting on Tue02/20/19 [...] documented as of this encounter Care Teams Felt Hat Pouncing Operator Hand Relationship Specialty Start Date End Date Chandni Urbina APRN, C.N.P., PCP - General Family Medicine 06/06/19 D.N.P. [address] [place] [address] documented as of this encounter
--- OUTSIDE RECORDS SUMMARY | 2022-07-20 10:50 | XMS_ITS | Encounter Summary ---
:1995 Author Organization [facility] Address [address] [place] [address] Care Team Providers Name Role Phone Chandni Urbina APRN C.N.P., D.N.P. Primary Care Provider Reason for Visit Reason Comments Med Refill Encounter Details Date Type Department Care Team Description 09/26/2018 Refill Department of Family Medicine, Chandni Urbina APRN, Med Refill [facility], in [place] C .N.P., D.N.P. [address] [address] [place], [place] [address] [phone] Social History Tobacco Use Types Packs/Day Years [...] How often do you attend mosque or yazidism Never 10/23/2020 services? 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 Nurse Review: Pharmacy Communication Provider: Chandni Urbina APRN, C.N.P., D.N.P. Medication: Albuterol sulfate Strength: 2.5 mg/3mL soln Frequency: Take 3 mL by nebulization every 4 hours as needed for wheezing Pharmacy: [facility] Comment: MITE SHOOTER documented in this encounter Plan of Treatment Not on filedocumented as of this encounter Visit Diagnoses Not on filedocumented in this encounter Additional Health Concerns Assessment Noted Time PHQ-9 Depression Total Score: 11 02/10/2018 4:00 PM CD T documented as of this encounter Care Teams Computer Installation Engineer Relationship Specialty Start Date End Date Chandni Urbina APRN, C.N.P., PCP - General Family Medicine 06/06/19 D.N.P. [address] [place] [address] documented as of this encounter
--- OUTSIDE RECORDS SUMMARY | 2022-07-20 10:50 | XMS_ITS | Encounter Summary ---
:1995 Author Organization [facility] Address [address] [place] [address] Care Team Providers Name Role Phone Chandni Urbina APRN C.N.P., D.N.P. Primary Care Provider Reason for Referral Outpatient (Routine) - Closed Specialty Diagnoses / Procedures Referred By Contact Refer red To Contact Orthopedic Surgery Diagnoses Fracture Ankle Closed Initial Left Chandni Urbina, [facility] TOBI, C.N.P., D.N.P. [address] [place] [address] Referral ID Status Reason Start Date Expiration Date Visits Requ ested Visits Authorized [id number] Closed 02/20/2019 02/20/2020 1 1 Scheduling Instructions Ordered images/tests are associated with this appointment. Reason for Visit Auth/Cert Specialty Diagnoses / Procedures Referred By Contact Refer red To Contact Diagnoses Fracture Ankle Closed Initial Left Fracture Ankle Closed Initial Left [S82.892A] Procedures LA CLSD TX DIST FIB WO MANIP OPEN REDUCTION INTERNAL FIXATION ANKLE Referral ID Status Reason Start Date Expiration Date Visits Requ ested Visits Authorized [id number] 1 1 Encounter Details Date Type Department Care Team Description 02/20/2019 Hospital Encounter [facility]IN OR Spivey, Bruno Fracture Ankle [id number] [facility] Jenn Baker M.D. Closed Initial Left BLVD [address] (Primary Dx) [place] [address] Social History Tobacco Use Types [...] How often do you attend hoahaoism or latter day Never 10/23/2020 services? 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 POST-OPERATIVE DIAGNOSIS Left ankle Church B fracture with syndesmotic disruption. PROCEDURE(S) Open reduction/internal fixation of left ankle fracture with syndesmotic fixation. SURGEON(S) Bruno Spivey M.D. ANESTHESIA TYPE Spinal anesthesia. CANDY SEPARATOR ENROBING: Chandni Urbina APRN, C.N.P., D.N.P. I requested [...] Implant Name Type Inv. Item Serial No. Filter Changer Lot No. LRB No. Used Knotless TightRope Syndesmosis Repair Implant, Stainless Steel Ankle Implant Arthrex [id number] FTHRD LCK 4.0X16 - [id number] Hardware e.g. pins/screws/rods SCRW LCP ST FTHRD LCK 4.0X16 Depuy Synthes Left [address] FTHRD LCK 4.0X18 - [id number] Hardware e.g. pins/screws/rods SCRW LCP ST FTHRD LCK 4.0X18 Depuy Synthes Left 1 PLT FIB LCD 1/3 TUB 7H LCK 85 - [id number] Hardware e.g. pins/screws/rods PLT FIB LCD 1/3 TUB 7H LCK 85 Depuy Synthes Left [address] FTHRD 3.5X24 - [id number] Hardware e.g. pins/screws/rods SCRW DCP ST FTHRD 3.5X24 Depuy Synthes Left [address] FTHRD 3.5X10 - [id number] Hardware e.g. pins/screws/rods SCRW DCP ST FTHRD 3.5X10 Depuy Synthes Left [address] FTHRD 3.5X12 - S204.012 - [id number] Ankle Implant SCRW LCD ST FTHRD 3.5X12 [...] Role: * Bruno Spivey M.D. - Primary Prevocational/Rehabilitation Counselor: Chandni Urbina, TOBI, C.N.P., D.N.P. Anesthesia Type Regional Pre-operative Diagnosis * Fracture Ankle Closed Initial Left [P36.234N] Brief Operative Note Details Specimens None Drains None Estimated Blood Loss None Implants Implant Name Type Inv. Item Serial No. Filter Changer Lot No. LRB No. Used Knotless TightRope Syndesmosis Repair Implant, Stainless Steel Ankle Implant Arthrex [id number] Left [address] FTHRD LCK 4.0X16 - [id number] Hardware e.g. pins/screws/rods SCRW LCP ST FTHRD LCK 4.0X16 Depuy Synthes Left [address] FTHRD LCK 4.0X18 - [id number] Hardware e.g. pins/screws/rods SCRW LCP ST FTHRD LCK 4.0X18 Depuy Synthes Left 1 PLT FIB LCD 1/3 TUB 7H LCK 85 - [id number] Hardware e.g. pins/screws/rods PLT FIB LCD 1/3 TUB 7H LCK 85 Depuy Synthes Left [address] FTHRD 3.5X24 - [id number] Hardware e.g. pins/screws/rods SCRW DCP ST FTHRD 3.5X24 Depuy Synthes Left [address] FTHRD 3.5X10 - [id number] Hardware e.g. pins/screws/rods SCRW DCP ST FTHRD 3.5X10 Depuy Synthes Left [address] FTHRD 3.5X12 - S204.012 - [id number] Ankle Implant SCRW LCD ST FTHRD 3.5X12 [...] Address City/State/ZIP Code Phon e Number [address] [facility] documented in this encounter Visit Diagnoses [...] (Given - Provider: Pavan De Souza APRN, RETAIL BUSINESS DEVELOPMENT MANAGER) 600 mg (rounded from 825 mg = [...] Verify - Provider: Pavan De Souza APRN, RETAIL BUSINESS DEVELOPMENT MANAGER)1626 (Anesthesia Volume Adjustment - Provider: Pavan De [...] documented as of this encounter Care Teams Linux Systems Administrator Relationship Specialty Start Date End Date Chandni Urbina, TOBI, C.N.P., PCP - General Family Medicine 06/06/19 D.N.P. [address] [place] [address] documented as of this encounter
--- OUTSIDE RECORDS SUMMARY | 2022-07-20 10:50 | XMS_ITS | Encounter Summary ---
:1995 Author Organization [facility] Address [address] [place] [address] Care Team Providers Name Role Phone Chandni Urbina APRN, C.N.P., D.N.P. Primary Care Provider Reason for Visit Outpatient (Routine) - Closed Specialty Diagnoses / Procedures Referred By Contact Refer red To Contact Emergency Medicine Diagnoses Fracture Fibula Shaft Oblique Displaced Closed Initial Left Jesus Sorenson APRN, [facility] C.N.P. 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 [address] [place] [address] documented as of this encounter
--- OUTSIDE RECORDS SUMMARY | 2022-07-20 10:50 | XMS_ITS | Encounter Summary ---
:1995 Author Organization [facility] Address [address] [place] [address] Care Team Providers Name Role Phone Chandni Urbina APRN C.N.Mana, D.N.P. Primary Care Provider Encounter Details Date Type Department Care Team Description 03/06/2019 Hospital Encounter Department of Edwige Lundberg, Pain Ankle Left Radiology in [place] TOBI, [place] D.N.P. [address] [address] [phone] Social History Tobacco Use Types Packs/Day Years [...] How often do you attend taoism or presybeterian Never 10/23/2020 services? 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
--- OUTSIDE RECORDS SUMMARY | 2022-07-20 10:50 | XMS_ITS | Encounter Summary ---
:1995 Author Organization [facility] Address [address] [place] [address] Care Team Providers Name Role Phone Chandni Urbina APRN C.N.Mana, D.N.P. Primary Care Provider Encounter Details Date Type Department Care Team Description 10/11/2018 Hospital Encounter Department of Dorian Khalil Anxiety Generalized Laboratory Medicine M.DGonzalo Disorder and Pathology, [address] [place] [address], in [place], [place] [address] [place] [address] [place], [place] (Work) [phone] Social History Tobacco Use Types Packs/Day Years [...] How often do you attend taoist or rastafarian Never 10/23/2020 services? 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 CBC WITH Routine 10/11/2018 2:14 PM Anxiety Generalized Re sults for this DIFFERENTIAL, B TRAIN INSPECTOR Disorder procedure ar e in the results section. documented in this encounter Results CBC with Differential (10/11/2018 2:14 PM TRAIN INSPECTOR) [facility] gist Method Time Signature Hemoglobin 13.5 11.6 - 10/11/2018 [facility] 15.0 g/dL 2:36 PM TRAIN INSPECTOR LABORATORIES - [facility] Hematocrit 40.6 35.5 - 10/11/2018 [facility] 44.9 % 2:36 PM TRAIN INSPECTOR LABORATORIES - [facility] Erythrocytes 4.51 3.92 - 10/11/2018 [facility] 5.13 2:36 PM TRAIN INSPECTOR LABORATORIES - x10(12)/L [facility] MCV 90.0 78.2 - 10/11/2018 [facility] 97.9 fL 2:36 PM TRAIN INSPECTOR LABORATORIES - [facility] RBC Distrib Width 12.4 12.2 - 10/11/2018 [facility] 16.1 % 2:36 PM TRAIN INSPECTOR LABORATORIES - [facility] Platelet Count 266 157 - 371 10/11/2018 [facility] x10(9)/L 2:36 PM TRAIN INSPECTOR LABORATORIES - [facility] Leukocytes 8.8 3.4 - 9.6 10/11/2018 [facility] x10(9)/L 2:36 PM TRAIN INSPECTOR LABORATORIES - [facility] Neutrophils 5.68 1.56 - 10/11/2018 [facility] 6.45 2:36 PM TRAIN INSPECTOR LABORATORIES - x10(9)/L [facility] Lymphocytes 2.44 0.95 - 10/11/2018 [facility] 3.07 2:36 PM TRAIN INSPECTOR LABORATORIES - x10(9)/L [facility] Monocytes 0.49 0.26 - 10/11/2018 [facility] 0.81 2:36 PM TRAIN INSPECTOR LABORATORIES - x10(9)/L [facility] Eosinophils 0.15 0.03 - 10/11/2018 [facility] 0.48 2:36 PM TRAIN INSPECTOR LABORATORIES - x10(9)/L [facility] Basophils 0.04 0.01 - 10/11/2018 [facility] 0.08 2:36 PM TRAIN INSPECTOR LABORATORIES - x10(9)/L [facility] Specimen Anatomical Collection Method Collection Time Receive d Time (Source) Location / / Volume Laterality Blood (Blood, 10/11/2018 2:14 PM 10/11/19 19 2:32 Venous) TRAIN INSPECTOR PM TRAIN INSPECTOR Dorian Khalil M.D. LAB BLOOD ADD-ON Performing Organization Address City/[facility]/ZIP Code Phon e Number [facility] LABORATORIES - [address] [place] [id number] [facility] Thyroid Function [place] (10/11/2018 2:14 PM TRAIN INSPECTOR) athologist Signature TSH, Sensitive 3.7 0.3 - 4.2 10/11/2018 [facility] mIU/L 3:26 PM TRAIN INSPECTOR LABORATORIES - [facility] Specimen Anatomical Collection Method Collection Time Receive d Time (Source) Location / / Volume Laterality Blood (Blood, 10/11/2018 2:14 PM 10/11/19 19 2:32 Venous) TRAIN INSPECTOR PM TRAIN INSPECTOR Dorian Khalil M.D. LAB BLOOD ADD-ON Performing Organization Address City/[facility] Phon e Number [facility]IES - [address] documented in this encounter Visit Diagnoses Diagnosis Anxiety Generalized Disorder documented in this encounter Additional Health Concerns Assessment Noted Time PHQ-9 Depression Total Score: 15 10/11/2018 12:[address] documented as of this encounter Care Teams Trouble Tracer Relationship Specialty Start Date End Date Chandni Urbina APRN, C.N.P., PCP - General Family Medicine 06/06/19 D.N.P. [address] [place] [address] documented as of this encounter
--- OUTSIDE RECORDS SUMMARY | 2022-07-20 10:50 | XMS_ITS | Encounter Summary ---
:1995 Author Organization [facility] Address [address] [place] [address] Care Team Providers Name Role Phone Chandni Matos APRN, C.N.Rodrigo., D.N.P. Primary Care Provider Encounter Details Date Type Department Care Team Description 10/17/2018 Clinical Communication Department of [facility] Chandni Matos, Medicine, [place]BI, C.N.P., Clinic, in [place] [address] [phone] Social History Tobacco Use Types Packs/Day Years [...] How often do you attend holiness or orthodoxy Never 10/23/2020 services? 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 - 10/25/2018 6:49 AM CDT Addended by: CHANDNI MATOS on: 10/25/2018 06:49 AM Modules accepted: Orders Telephone Encounter - Chandni Matos APRN, C.N.P., D.N.P. - 10/25/2018 6:49 AM CDT AirDuo sent to pharmacy. Thanks. Addendum Note - Lauren Rollins R.N. - 10/24/2018 2:53 PM CDT Addended by: [...] PM CST Advair prescribed. Berto [place] Thanks. AND GAS DRAFTER Telephone Encounter - Edith Corona R.N. - 10/17/2018 11:30 AM OIL AND GAS DRAFTER Please advise on the requested alternative. AND GAS DRAFTER Telephone Encounter - Felisha Dumont - 10/17/2018 9:42 AM CST Reason for Communication: [facility] called and stated the prescription for Breo Ellipta is not covered by patients insurance, the one that is covered is fluticasone salmeterol inhaler. Current Can Nursing/Provider leave a detailed message: Did the patient refuse triage through Nurse line? (for symptom based concerns) Action Needed: new prescription Name of Medication (if relevant): AND GAS DRAFTER documented in this encounter Plan of Treatment Not on filedocumented as of this encounter Visit Diagnoses Not on filedocumented in this encounter Additional Health Concerns Assessment Noted Time PHQ-9 Depression Total Score: 15 10/11/2018 12:[address] documented as of this encounter Care Teams Environmental Aide Relationship Specialty Start Date End Date Chandni Matos APRN C.N.P., PCP - General Family Medicine 06/06/19 BobbiPGonzalo [address] [place] [address] documented as of this encounter
--- OUTSIDE RECORDS SUMMARY | 2022-07-20 10:50 | XMS_ITS | Encounter Summary ---
:1995 Author Organization [facility] Address [address] [place] [address] Care Team Providers Name Role Phone Chadnni Urbina APRN C.N.P., D.N.P. Primary Care Provider Reason for Referral Outpatient (Routine) - Closed Specialty Diagnoses / Procedures Referred By Contact Refer red To Contact Orthopedic Surgery Diagnoses Pain Ankle Left Edwige Lundberg, TOBI, [facility] C.N.P., D.N.P. [address] [place] [phone] Referral ID Status Reason Start Date Expiration Date Visits Requ ested Visits Authorized [id number] Closed 02/19/2019 02/19/2020 1 1 Scheduling Instructions Please schedule at 2:30 on March 06 with Edwige Lundberg. Encounter Details Date Type Department Care Team Description 02/19/2019 Orders Only Department of Edwige Lundberg Pain Ankle Left Orthopedic Surgery in [place], C.N.PGonzalo, (Prim celina Dx) Hakeem Genao, D.N.P. [address] [phone] Social History Tobacco Use Types Packs/Day [...] often do you attend jehovah's witness or worship Never 10/23/2020 services? 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
--- OUTSIDE RECORDS SUMMARY | 2022-07-20 10:50 | XMS_ITS | Encounter Summary ---
:1995 Author Organization [facility] Address [address] [place] [address] Care Team Providers Name Role Phone Chandni Urbina APRN, C.N.P., D.N.P. Primary Care Provider Encounter Details Date Type Department Care Team Description 08/23/2018 Orders Only [facility] - Chandni Bhat, TOBI, [address] , CRISTHIAN 1 C.N.P., D.N.P. BHAVIN PATEL [phone] [place] [address] [place], [place] [phone] (Wo rk) Social History [...] How often do you attend druze or oriental orthodox Never 10/23/2020 services? 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 [address] [place] [phone] documented as of this encounter
--- OUTSIDE RECORDS SUMMARY | 2022-07-20 10:50 | XMS_ITS | Encounter Summary ---
:1995 Author Organization [facility] Address [address] [place] [address] Care Team Providers Name Role Phone Chandni Urbina APRN, C.N.P., D.N.P. Primary Care Provider Reason for Visit Reason Comments Med Refill Encounter Details Date Type Department Care Team Description 02/27/2019 Refill Department of Obstetrics and [facility] TOBI wolff, Med Refill Gynecology in [facility] ELOY, M.S .N., B.S.N., R.N. [phone] [place] [phone] Social History Tobacco Use Types Packs/Day Years [...] How often do you attend taoist or mormon Never 10/23/2020 services? 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 [address] [place] [phone] documented as of this encounter
--- OUTSIDE RECORDS SUMMARY | 2022-07-20 10:50 | XMS_ITS | Encounter Summary ---
:1995 Author Organization [facility] Address [address] [place] [address] Care Team Providers Name Role Phone Chandni Urbina APRN, C.N.P., D.N.P. Primary Care Provider Reason for Visit Auth/Cert Specialty Diagnoses / Procedures Referred By Contact Refer red To Contact Diagnoses Fracture Ankle Closed Initial Left Fracture Ankle Closed Initial Left [[id number]] Procedures IN CLSD TX DIST FIB WO MANIP OPEN REDUCTION INTERNAL FIXATION ANKLE Referral ID Status Reason Start Date Expiration Date Visits Requ ested Visits Authorized [id number] 1 1 Encounter Details Date Type Department Care Team Description 02/20/2019 Anesthesia Event [facility] OR Pavan De Souza APRN, CEO AND CO FOUNDER [address] [place] [phone] [place] [address] Ricarda Melo M.D. [address] [place] [phone] [place] [phone] Anesthesia Record Procedure Summary Procedure Name Responsible Anesthesia Start Anesthesia Stop Time Anesthesiologist Time OPEN REDUCTION Pavan De Souza APRN, 02/20/19 1512 1627 INTERNAL FIXATION CEO AND CO FOUNDER ANKLE (Left: Ankle) Events Date Time Event [...] h andoff to the receiving staff during [facility] ch we 1. Identified the patient 2. [...] Placement Time: 0002; Hailey Reyes Boyu m, Tricia, R.N. Catheter Size: 20 G; R.N. Orientation: [...] How often do you attend congregational or holiness Never 10/23/2020 services? 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 Risks/Benefits/Alternatives of Blood transfusion discussed with patient, [...] procedure ar e in the results section. IN US GUIDE PLC NDL Routine 02/20/2019 3:36 PM Re sults for this CDT procedure are i n the results section. IN INJ ANES SCIATIC Routine 02/20/2019 3:36 PM Re sults for this NERVE W GUIDANCE CDT procedure a re in the results section. documented in this [...] De Souza APRN, CRNA PROCEDURE/MINOR SURGICAL ORDERABLES IN INJ ANES SCIATIC NERVE W GUIDANCE, IN US GUIDE PLC NDLDAYA ANE NERVE BLOCK [...] documented as of this encounter Care Teams Morning Show Producer Relationship Specialty Start Date End Date Chandni Urbina, TOBI, C.N.P., PCP - General Family Medicine 06/06/19 D.N.P. [address] [place] [phone] documented as of this encounter
--- OUTSIDE RECORDS SUMMARY | 2022-07-20 10:50 | XMS_ITS | Encounter Summary ---
:1995 Author Organization [facility] Address [address] [place] [address] Care Team Providers Name Role Phone Chandni Urbina APRN C.N.PGonzalo, D.N.P. Primary Care Provider Reason for Referral Outpatient (Routine) - Closed Specialty Diagnoses / Procedures Referred By Contact Refer red To Contact Emergency Medicine Diagnoses Fracture Fibula Shaft Oblique Displaced Closed Initial Left Jesus Sorenson APRN, [facility] C.N.P. [address] [place] [address] Referral ID Status Reason Start Date Expiration Date Visits Requ ested Visits Authorized [id number] Closed 02/16/2019 02/16/2020 1 1 Reason for Visit Reason Comments Ankle Injury left Encounter Details Date Type Department Care Team Description 02/15/2019 - Emergency [place] Jesus Sorenson, Fracture Fi bula Shaft 02/16/2019 Emergency Department TOBI, C.N.P. Oblique Displaced [phone] [place] [address] [address] [facility] Closed Initial Left [place], [place] (Primary D x) [phone] Social History Tobacco Use Types Packs/Day [...] How often do you attend restorationist or quaker Never 10/23/2020 services? 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 She was walking out of the [employer] when she states she heard a pop [...] signs of ischemic limb. 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 - 02/17/20 19 12:39 AM CDT eJsus Sorenson APRN, C.N.P. ? 02/16/2019 12:40 AM [...] DETAILS Procedure type: application ?? Performed by: ??BIOGEOGRAPHER Location: ??Leg Leg: ??Left lower leg Circulation [...] t fibular fracture. Jesus Sorenson APRN, C.N.P. [facility] PRO CEDURES documented in this [...] as of this encounter Care Teams Clay Puddler Relationship Specialty Start Date End Date Chandni Urbina APRN, C.N.P., PCP - General Family Medicine 06/06/19 D.N.P. [address] [place] [phone] documented as of this encounter
--- OUTSIDE RECORDS SUMMARY | 2022-07-20 10:50 | XMS_ITS | Encounter Summary ---
:1995 Author Organization [facility] Address [address] [place] [address] Care Team Providers Name Role Phone Chandni Urbina APRN, C.N.Mana, D.N.P. Primary Care Provider Reason for Visit Reason Comments Sore Throat For a week now, states it is effecting her breathing/asthma Appointment Request (Routine) - Closed Specialty Diagnoses / Procedures Referred By Contact Refer red To Contact Family Medicine Referral ID Status Reason Start Date Expiration Date Visits Requ ested Visits Authorized [id number] Closed 01/23/2019 01/23/2020 1 Encounter Details Date Type Department Care Team Description 01/23/2019 Office Visit Department of Family Ashleigh Talley ma Mild Intermittent With Acute Exacerbation (HCC) (Primary Dx); Medicine, Hakeem Ludwig P.A.-C. Sore Throat [facility] [place], [place] [phone] [place] [phone] [address] [place] [address] [place], [place] (Work) [phone] Social History Tobacco Use [...] How often do you attend samaritan or baptism Never 10/23/2020 services? 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 [address] [place] [address] documented as of this encounter
--- OUTSIDE RECORDS SUMMARY | 2022-07-20 10:50 | XMS_ITS | Encounter Summary ---
:1995 Author Organization [facility] Address [address] [place] [address] Care Team Providers Name Role Phone Chandni Urbina APRN C.N.Mana, D.N.P. Primary Care Provider Encounter Details Date Type Department Care Team Description 10/12/2018 Diagnostic Department of Sleep Dorian Khalil, Anxiety Generalized Medicine in [place] M.D. Disorder [place] [address] [facility] [address] [place] [phone] Social History Tobacco Use Types Packs/Day Years [...] How often do you attend uatsdin or spiritism Never 10/23/2020 services? Do you [...] at Date Recorded Female 08/12/2017 10:51 AM UPSTAIRS MAID documented as of this encounter Plan of Treatment Not on filedocumented as of this encounter Procedures Procedure Name Priority Date/Time Associated Diagnosis Comme nts PUL HOME OVERNIGHT Routine 10/13/2018 3:55 PM UPSTAIRS MAID Anxiety Gene ralized OXIMETRY Disorder documented in this encounter Results Home Overnight Oximetry (10/13/2018 3:55 PM UPSTAIRS MAID) Specimen (Source) Anatomical Location Collection Method / [...] documented as of this encounter Care Teams Brick Offbearer Relationship Specialty Start Date End Date Chandni Urbina APRN, C.N.P., PCP - General Family Medicine 06/06/19 D.N.P. [address] [place] [phone] documented as of this encounter
--- OUTSIDE RECORDS SUMMARY | 2022-07-20 10:50 | XMS_ITS | Encounter Summary ---
:1995 Author Organization [facility] Address [address] [place] [address] Care Team Providers Name Role Phone Chandni [...] How often do you attend baptism or advent Never 10/23/2020 services? 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 [address] [place] [phone] documented as of this encounter
--- OUTSIDE RECORDS SUMMARY | 2022-07-20 10:50 | XMS_ITS | Encounter Summary ---
:1995 Author Organization [facility] Address [address] [place] [address] Care Team Providers Name Role Phone Chandni Urbina APRN, C.N.P., D.N.P. Primary Care Provider Reason for Referral Behavioral Health (Routine) - Closed Specialty Diagnoses / Procedures Referred By Contact Refer red To Contact Psychiatry / Psychiatry Diagnoses Bipolar II Disorder (HCC) Chandni Urbina, [facility] TOBI C.N.P., D.N.P. [address] [place] [address] Referral ID Status Reason Start Date Expiration Date Visits V isits Requested Authorized [id number] Closed Specialty 09/25/2018 09/25/2019 1 1 Services Required GE LEAD Reason for Visit Reason Comments Cough chills/sweats, sore throat, productive cough and shortness of breath Appointment Request (Routine) - Closed Specialty Diagnoses / Procedures Referred By Contact Refer red To Contact Family Medicine Referral ID Status Reason Start Date Expiration Date Visits Requ ested Visits Authorized [id number] Closed 09/25/2018 09/25/2019 1 Encounter Details Date Type Department Care Team Description 09/25/2018 Office Visit Department of Family Chandni Urbina, In fection Upper Respiratory (Primary Dx); Medicine, Hakeem BRITTON C.N.P., Asthma Mil d Intermittent (HCC); [facility], in D.N.P. Bipolar II Disorder ([facility]) Hakeem Genao, [address] [place] [address] [address] [place] [phone] [address] (Work) [phone] Social History Tobacco Use Types Packs/Day Years [...] How often do you attend muslim or restorationism Never 10/23/2020 services? Do you [...] at Date Recorded Female 08/12/2017 10:51 AM CHANGE LEAD documented as of this encounter Last Filed Vital Signs Vital Sign Reading Time Taken Comments Blood Pressure 125/63 09/25/2018 10:23 AM CHANGE LEAD Pulse 72 09/25/2018 10:23 AM CHANGE LEAD Temperature 37.3 ??C (99.1 ??F) 09/25/2018 10:23 AM CHANGE LEAD Respiratory Rate 24 09/25/2018 10:23 AM CHANGE LEAD Oxygen Saturation 98% 09/25/2018 10:23 AM CHANGE LEAD Inhaled Oxygen Concentration - - Weight 107 kg (235 lb 3.7 oz) 09/25/2018 10:23 AM CHANGE LEAD Height - - Body Mass Index 38.26 [...] to persistent cough. She has also tried gndy-pto-zsilkxf Mucinex and ibuprofen for symptoms. No known fevers. No chest pain. No vomiting. Patient is also requesting a referral to Psychiatry in [place]. She has not been taking her Cymbalta [...] A referral was placed for Psychiatry in [place] per patient request for medication evaluation. Patient [...] understanding of the content. Chandni Urbina APRN, Mitchell.N.Rodrigo., D.N.P. GE LEAD documented in this encounter Plan of Treatment Scheduled Referrals Name Type Priority Associated Order Schedule Diagnoses Psychiatry and Outpatient Referral Routine Bipolar II Disorder Expected: Psychology - General ([facility]) 019 consult (clinic) (Approximat e), Expires: 09/25/2021 documented as of this encounter Visit Diagnoses Diagnosis Infection Upper Respiratory - Primary Asthma Mild Intermittent ([facility]) Bipolar II Disorder ([facility]) documented in this encounter Additional Health Concerns Assessment Noted Time PHQ-9 Depression Total Score: 11 02/10/2018 4:00 PM CD T documented as of this encounter Care Teams Audio/Visual Operator Relationship Specialty Start Date End Date Chandni Urbina APRN, C.N.P., PCP - General Family Medicine 06/06/19 D.N.P. [address] [place] [phone] documented as of this encounter
--- OUTSIDE RECORDS SUMMARY | 2022-07-20 10:50 | XMS_ITS | Encounter Summary ---
:1995 Author Organization [facility] Address [address] [place] [address] Care Team Providers Name Role Phone Chandni Urbina APRN, C.N.P., D.N.P. Primary Care Provider Encounter Details Date Type Department Care Team Description 09/01/2018 Orders Only [facility] - Chandni Bhat, TOBI, [address] , [facility] 1 C.N.P., D.N.P. BHAVIN PATEL [phone] [place] [address] [place], [place] [address] (Wo rk) Social History [...] How often do you attend christian or confucianism Never 10/23/2020 services? 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 [address] [place] [address] documented as of this encounter
--- OUTSIDE RECORDS SUMMARY | 2022-07-20 10:50 | XMS_ITS | Encounter Summary ---
:1995 Author Organization [facility] Address [address] [place] [address] Care Team Providers Name Role Phone Chandni Urbina APRN, C.N.P., D.N.P. Primary Care Provider Encounter Details Date Type Department Care Team Description 09/15/2018 Orders Only [facility] Pharmacy - Channdi Bhat, TOBI, [address] , [place] 1 C.N.P., D.N.P. BHAVIN PATEL [phone] [place] [address] [place], [place] [address] (Wo rk) Social History [...] How often do you attend anglican or hoahaoism Never 10/23/2020 services? 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 [address] [place] [address] documented as of this encounter
--- OUTSIDE RECORDS SUMMARY | 2022-07-20 10:51 | XMS_ITS | Encounter Summary ---
:1995 Author Organization [facility] Address [address] [place] [address] Care Team Providers Name Role Phone Chandni Urbina APRN C.N.Rodrigo., D.N.P. Primary Care Provider Reason for Visit Reason Comments Communication Encounter Details Date Type Department Care Team Description 11/21/2017 Clinical Department of Ravinder, Communication Communication Gastroenterology in [place], [place] P.A.-C. [address] [facility] [address] [place] [address] [place], [place] [phone] [address] Social History Tobacco Use Types Packs/Day [...] How often do you attend catholic or pentecostalism Never 10/23/2020 services? 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 Adkins. Patient can be reached at [phone] with any questions, thank you. documented in this encounter Plan of Treatment Not on filedocumented as of this encounter Visit Diagnoses Not on filedocumented in this encounter Additional Health Concerns Assessment Noted Time PHQ-9 Depression Total Score: 10 11/03/2017 4:00 PM CD T documented as of this encounter Care Teams Factory Worker Relationship Specialty Start Date End Date Chandni Urbina, TOBI, C.N.P., PCP - General Family Medicine 06/06/19 D.N.P. [address] [place] [address] documented as of this encounter
--- OUTSIDE RECORDS SUMMARY | 2022-07-20 10:51 | XMS_ITS | Encounter Summary ---
:1995 Author Organization [facility] Address [address] [place] [address] Care Team Providers Name Role Phone Holley Saucedo APRN, C.NGonzaloPGonzalo Primary Care Provider [phone] Encounter Details Date Type Department Care Team Description 11/03/2017 Orders Only Department of Charisma Castellon Pain Low Back Orthopedic Surgery in [place], P.AGonzalo-C. (Primary Dx) [address] [phone] Social History Tobacco Use Types Packs/Day Years [...] How often do you attend yarsanism or scientology Never 10/23/2020 services? 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 PCP - General 01/27/17 12/09/17 documented as of this encounter
--- OUTSIDE RECORDS SUMMARY | 2022-07-20 10:51 | XMS_ITS | Encounter Summary ---
:1995 Author Organization [facility] Address [address] [place] [address] Care Team Providers Name Role Phone Holley Saucedo APRN, C.N.P. Primary Care Provider [phone] Reason for Visit Reason Comments Communication ACT updated-within guideline s Encounter Details Date Type Department Care Team Description 11/03/2017 Clinical Department of Eros Zurita (ACT Communication Family MedicineRosi updated-within [place] [address] [facility]) [facility], in [place], [place] [address] [place] [address] [facility] (Work) [place] [address] Social History Tobacco Use Types [...] How often do you attend yarsani or scientology Never 10/23/2020 services? 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 PCP - General 01/27/17 12/09/17 documented as of this encounter
--- OUTSIDE RECORDS SUMMARY | 2022-07-20 10:51 | XMS_ITS | Encounter Summary ---
:1995 Author Organization [facility] Address [address] [place] [address] Care Team Providers Name Role Phone Chandni Urbina APRN, C.N.P., D.N.P. Primary Care Provider Reason for Visit Reason Comments Contraception Recheck to renew Appointment Request (Routine) - Closed Specialty Diagnoses / Procedures Referred By Contact Refer red To Contact Obstetrics and Gynecology Referral ID Status Reason Start Date Expiration Date Visits Requ ested Visits Authorized [id number] Closed 03/06/2018 03/06/2019 1 Encounter Details Date Type Department Care Team Description 03/08/2018 Office Visit Department of Noy Loya, Screening For Venereal Disease (Primary Dx); Obstetrics and SCHEDULER CONVEYOR, CNM, Gynecological Examination Normal Gynecology in [facility] M.S.N., B.S.N.[place], [place] R.N. 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 Does not want depo. HIDES AND SKINS COLORER HISTORY Last pap 2015 and was nl [...] Results Chlamydia culture (03/08/2018 3:07 PM CDT) [facility] Method Time Signature Source VAGINA 03/09/[address] [facility] 2:05 PM CDT [facility] Chlamydia Negative Negative 03/09/[address] [facility] trachomatis 2:05 PM CDT [facility] Comment: ----ADDITIONAL INFORMATION---- This report is [...] City/State/ZIP Code Phon e Number [facility] [address] [place], [place] [address] [address] [facility] documented in this encounter Visit Diagnoses Diagnosis Screening For Venereal Disease - Primary Gynecological Examination Normal documented in this encounter Additional Health Concerns Assessment Noted Time PHQ-9 Depression Total Score: 11 02/10/2018 4:00 PM CD T documented as of this encounter Care Teams Application Support Technician Relationship Specialty Start Date End Date Chandni Urbina APRN, C.N.P., PCP - General Family Medicine 06/06/19 D.N.P. [address] [place] [address] documented as of this encounter
--- OUTSIDE RECORDS SUMMARY | 2022-07-20 10:51 | XMS_ITS | Encounter Summary ---
:[address] [facility] Address [address] [place] [address] Care Team Providers Name Role Phone Chandni Urbina APRN, C.N.Rodrigo., D.N.P. Primary Care Provider Encounter Details Date Type Department Care Team Description 12/13/2017 Orders Only Department of Pain Charisma Castellon, Medicine in [place], P.A.-C. [address] [address] [place] [address] [phone] Social History Tobacco Use Types Packs/Day Years [...] How often do you attend buddhism or yazidism Never 10/23/2020 services? 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 [address] [place] [address] documented as of this encounter
--- OUTSIDE RECORDS SUMMARY | 2022-07-20 10:51 | XMS_ITS | Encounter Summary ---
:1995 Author Organization [facility] Address [address] [place] [address] Care Team Providers Name Role Phone Chandni Urbina APRN C.N.P., D.N.P. Primary Care Provider Reason for Referral Outpatient (Routine) - Closed Specialty Diagnoses / Procedures Referred By Contact Refer red To Contact Diagnoses Radiculopathy Lumbar Lizzie June II, M.D. [facility] Procedures [facility] [address] [place] [phone] Referral ID Status Reason Start Date Expiration Date Visits Requ ested Visits Authorized [id number] Closed 12/23/2017 06/21/2018 1 1 Reason for Visit Reason Comments Back Pain low back pain, left hip pain , with shooting pain and numbness down the left leg Encounter Details Date Type Department Care Team Description 12/23/2017 Hospital Encounter Department of Pain Lizzie June Ra diculopathy Lumbar (Primary Dx); Medicine in [place] EVANS M.D. Pain Hip Left; [place], [place] [address] [facility] [place] Weakness Leg Left [address] [place] [phone] Social History Tobacco Use Types Packs/Day Years [...] How often do you attend adventist or adventist Never 10/23/2020 services? 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 She lives in the [facility]. 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 PHYSICAL [...] ? Final Report Study Number: 1 EM[facility] Director Supply Chain: Chloe Han Referred by: LIZZIE JUNE II ([phone]) Referred for: Query lumbar radiculopathy on the [...] documented as of this encounter Care Teams Button Puncher Relationship Specialty Start Date End Date Chandni Urbina APRN, C.N.P., PCP - General Family Medicine 06/06/19 D.N.P. [address] [place] [address] documented as of this encounter
--- OUTSIDE RECORDS SUMMARY | 2022-07-20 10:51 | XMS_ITS | Encounter Summary ---
:1995 Author Organization [facility] Address [address] [place] [address] Care Team Providers Name Role Phone Holley Saucedo APRN, C.N.P. Primary Care Provider [phone] Reason for Visit Reason Comments Follow-up Patient is here to update wo rk restrictions for left hip pain. Appointment Request (Routine) - Closed Specialty Diagnoses / Procedures Referred By Contact Refer red To Contact Family Medicine Referral ID Status Reason Start Date Expiration Date Visits Requ ested Visits Authorized [id number] Closed 10/11/2017 04/09/2018 1 1 Encounter Details Date Type Department Care Team Description 10/12/2017 Office Visit Department of Family Chandni Urbina Pa in Hip Left (Primary Medicine, [place] TOBI, C.N.P., Dx) Clinic, in [place] [address] [address] [phone] Social History Tobacco Use Types Packs/Day Years [...] Date Recorded Female 08/12/2017 10:51 AM CORE MOUNTER documented as of this encounter Last Filed Vital Signs Vital Sign Reading Time Taken Comments Blood Pressure 113/62 10/12/2017 2:32 PM CORE MOUNTER Pulse 74 10/12/2017 2:32 PM CORE MOUNTER Temperature 36.5 ??C (97.7 ??F) 10/12/2017 2:32 PM CORE MOUNTER Respiratory Rate 16 10/12/2017 2:32 PM CORE MOUNTER Oxygen Saturation 97% 10/12/2017 2:32 PM CORE MOUNTER Inhaled Oxygen Concentration - - Weight 99.3 kg (218 lb 14.7 oz) 10/12/2017 2:32 PM CORE MOUNTER Height - - Body Mass Index 35.33 08/31/2017 4:59 PM CORE MOUNTER documented in this encounter Progress Notes Chandni [...] a in the family. She has tried guph-tts-jowilnw medications as well asphysical therapy without significant improvement of symptoms. She has previously been on work restrictions - lifting no more than 25 lb at a time with minimal bending and kneeling squatting or twisting. 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 Brief Review of Systems: A brief [...] the content. Chandni Urbina APRN, C.N.P., D.N.P. MOUNTER documented in this encounter Plan of Treatment Not on filedocumented as of this encounter Visit Diagnoses Diagnosis Pain Hip Left - Primary documented in this encounter Additional Health Concerns Assessment Noted Time PHQ-9 Depression Total Score: 9 08/30/2017 4:00 PM CORE MOUNTER documented as of this encounter Care Teams Communications Supervisor Relationship Specialty Start Date End Date Holley Saucedo APRN, C.N.P. PCP - General 01/27/17 12/09/17 documented as of this encounter
--- OUTSIDE RECORDS SUMMARY | 2022-07-20 10:51 | XMS_ITS | Encounter Summary ---
:1995 Author Organization [facility] Address [address] [place] [address] Care Team Providers Name Role Phone Holley Saucedo APRN, C.N.P. Primary Care Provider [phone] Encounter Details Date Type Department Care Team Description 11/21/2017 Orders Only [facility], Brandon Marcum M .D. 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 PCP - General 01/27/17 12/09/17 documented as of this encounter
--- OUTSIDE RECORDS SUMMARY | 2022-07-20 10:51 | XMS_ITS | Encounter Summary ---
:1995 Author Organization [facility] Address [address] [place] [address] Care Team Providers Name Role Phone Holley Saucedo APRN, C.NGonzaloPGonzalo Primary Care Provider [phone] Encounter Details Date Type Department Care Team Description 11/03/2017 Orders Only Department of Argelia Vogel Pain Back (Primary Dx) Orthopedic Surgery in [place], C.[address] [address] [phone] Social History Tobacco Use Types Packs/Day Years [...] How often do you attend moravian or synagogue Never 10/23/2020 services? 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 PCP - General 01/27/17 12/09/17 documented as of this encounter
--- OUTSIDE RECORDS SUMMARY | 2022-07-20 10:51 | XMS_ITS | Encounter Summary ---
:1995 Author Organization [facility] Address [address] [place] [address] Care Team Providers Name Role Phone Holley Saucedo APRN C.NGonzaloPGonzalo Primary Care Provider [phone] Reason for Visit Reason Comments Communication Encounter Details Date Type Department Care Team Description 11/03/2017 Clinical Communication Department of Mani Castellon Orthopedic Surgery J, PGonzaloADerrek in [address] [address] [place], [place] [phone] [address] (Work) [phone] Social History Tobacco Use Types Packs/Day Years [...] Date Recorded 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 PCP - General 01/27/17 12/09/17 documented as of this encounter
--- OUTSIDE RECORDS SUMMARY | 2022-07-20 10:51 | XMS_ITS | Encounter Summary ---
:1995 Author Organization [facility] Address [address] [place] [address] Care Team Providers Name Role Phone Holley Saucedo APRN CGonzaloNGonzaloPGonzalo Primary Care Provider [phone] Reason for Referral MRI/CAT/PET Scan (Routine) - Closed Specialty Diagnoses / Procedures Referred By Contact Refer red To Contact Radiology Diagnoses Pain Low Back Unspecified Charisma Castellon, [place]. [facility] Region Procedures MR Lumbar Spine without IV Contrast P.AGonzalo-C. [address] [place] [address] Referral ID Status Reason Start Date Expiration Date Visits Requ ested Visits Authorized [id number] Closed 10/27/2017 04/25/2018 1 1 Reason for Visit Reason Comments Pain Encounter Details Date Type Department Care Team Description 10/27/2017 Office Visit Department of Charisma Castellon Pain Hip Left (Primary Dx); Orthopedic Surgery in [place] Pain Low Back [place], [place] [address] [facility] 701 [place] [phone] Social History Tobacco Use Types Packs/Day Years [...] How often do you attend hindu or latter day Never 10/23/2020 services? 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 - 10/27/2017 12:00 AM CDT SUBJECTIVE REASON FOR CONSULT Low back pain and left hip pain. HISTORY OF PRESENT ILLNESS Ms. 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 She began having what she refers [...] dysfunction. She has tried physical therapy in [email or web address] for the past 2 months, also anti-inflammatories. ALLERGIES/CONTRAINDICATIONS Cefexime. MEDICAL HISTORY As noted in the EMR. 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 She is a nonsmoker but had smoked [...] procedure and that was sent to the [place] outpatient pharmacy per her request. Physical therapy ordered for her lumbar spine. She should work on a back strengthening stabilizationprogram and I think she should do this long-term, especially if she is going to work as a ICE CREAM VAN VENDOR. Will await MRI results when considering return [...] counseling and coordination of care. Job ID: [id number] documented in this encounter Miscellaneous Notes Telephone Encounter - Charisma Castellon P.A.-C. - 10/27/2017 12:00 AM CDT I have contacted the patient with her MRI results which she was able to review on patient portal. Patient has had ongoing back pain. 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 Job ID: [id number] documented in this encounter Plan of Treatment [...] or soft tissue abnormality. IMPRESSION: Negative. Charisma Wallace.A.-C. IMG DIAGNOSTIC IMAGING PRO CEDURES DX Lumbar [...] normal. ??SI joints appear normal. Procedure Note mOar Riley M.D. - 10/27/2017Formatti ng of this [...] Depression Total Score: 9 08/30/2017 4:00 PM SUPERVISOR RESEARCH SHOP documented as of this encounter Care Teams Landfill Gas Plant Field Technician Relationship Specialty Start Date End Date Holley Saucedo APRN, C.N.P. PCP - General 01/27/17 12/09/17 documented as of this encounter
--- OUTSIDE RECORDS SUMMARY | 2022-07-20 10:51 | XMS_ITS | Encounter Summary ---
:1995 Author Organization [facility] Address [address] [place] [address] Care Team Providers Name Role Phone Holley Saucedo APRN C.N.PGonzalo Primary Care Provider [phone] Reason for Referral MRI/CAT/PET Scan (Routine) - Closed Specialty Diagnoses / Procedures Referred By Contact Refer red To Contact Radiology Diagnoses Pain Low Back Unspecified Charisma Castellon [facility] [place] [facility] Procedures MR Lumbar Spine without IV Contrast P.A.-C. [address] [place] [address] Referral ID Status Reason Start Date Expiration Date Visits Requ ested Visits Authorized Closed 10/27/2017 04/25/2018 1 1 Reason for Visit MRI/CAT/PET Scan (Routine) - Closed Specialty Diagnoses / Procedures Referred By Contact Refer red To Contact Radiology Diagnoses Pain Low Back Unspecified Charisma Castellon [facility] [place] [facility] Procedures MR Lumbar Spine without IV Contrast P.A.-C. [address] [place] [address] Referral ID Status Reason Start Date Expiration Date Visits Requ ested Visits Authorized Closed 10/27/2017 04/25/2018 1 1 Encounter Details Date Type Department Care Team Description 10/27/2017 Hospital Encounter Department of Charisma Castellon in Low Back Radiology in [place] P.A.-C. [address] [place] [phone] Social History Tobacco Use Types Packs/Day Years [...] How often do you attend catholic or christianity Never 10/23/2020 services? 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 PCP - General 6/15/17 4/27/18 documented as of this encounter
--- OUTSIDE RECORDS SUMMARY | 2022-07-20 10:51 | XMS_ITS | Encounter Summary ---
:1995 Author Organization [facility] Address [address] [place] [address] Care Team Providers Name Role Phone Chandni Urbina APRN C.N.Mana, D.N.P. Primary Care Provider Reason for Visit Outpatient (Routine) - Closed Specialty Diagnoses / Procedures Referred By Contact Refer red To Contact Diagnoses Radiculopathy Lumbar Lizzie June II, M.D. [facility] Procedures EMG [address] [place] [phone] Referral ID Status Reason Start Date Expiration Date Visits Requ ested Visits Authorized [id number] Closed 12/23/2017 06/21/2018 1 1 Encounter Details Date Type Department Care Team Description 03/01/2018 Diagnostic Department of Neurology Chloe Han, Radiculopathy Lumbar in [place] D.OGonzalo 701 [facility] 701 [facility] [place] [address] [place] [phone] (Wo rk) Social History Tobacco Use [...] How often do you attend pentecostal or mormonism Never 10/23/2020 services? 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 Final Report Study Number: 1 EMG Loop Drier Operator: Chloe Han Referred by: LIZZIE JUNE II ([phone]) Referred for: Query lumbar radiculopathy on the [...] documented as of this encounter Care Teams Dry Cleaner Apprentice Relationship Specialty Start Date End Date Chandni Urbina, TOBI, C.N.P., PCP - General Family Medicine 06/06/19 D.N.P. [address] [place] [address] documented as of this encounter
--- OUTSIDE RECORDS SUMMARY | 2022-07-20 10:51 | XMS_ITS | Encounter Summary ---
:1995 Author Organization [facility] Address [address] [place] [address] Care Team Providers Name Role Phone Holley Saucedo APRN, C.N.P. Primary Care Provider [phone] Encounter Details Date Type Department Care Team Description 11/15/2017 Orders Only Department of [facility] Holley Saucedo, Medicine, [place] TOBI, C.N .P. Clinic, in [id number] [place] [address] [place], [place] [address] [phone] Social History Tobacco Use Types Packs/Day Years [...] How often do you attend buddhist or zoroastrian Never 10/23/2020 services? 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 PCP - General 01/27/17 12/09/17 documented as of this encounter
--- OUTSIDE RECORDS SUMMARY | 2022-07-20 10:51 | XMS_ITS | Encounter Summary ---
:1995 Author Organization [facility] Address [address] [place] [address] Care Team Providers Name Role Phone Holley Saucedo APRN, C.N.P. Primary Care Provider [phone] Encounter Details Date Type Department Care Team Description 09/23/2017 Orders Only Department of [employer] Holley Saucedo n Hip Left (Primary Medicine, [place] TOBI Baker, C.N.P. Dx) Clinic, in [address] [place] [address] [place], [place] (Work) [phone] [phone] Social History Tobacco Use Types Packs/Day Years [...] How often do you attend caodaism or jew Never 10/23/2020 services? 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 PCP - General 01/27/17 12/09/17 documented as of this encounter
--- OUTSIDE RECORDS SUMMARY | 2022-07-20 10:51 | XMS_ITS | Encounter Summary ---
:1995 Author Organization [facility] Address [address] [place] [address] Care Team Providers Name Role Phone Chandni Urbina APRN, C.N.P., D.N.P. Primary Care Provider Reason for Visit Appointment Request (Routine) - Closed Specialty Diagnoses / Procedures Referred By Contact Refer red To Contact Family Medicine Referral ID Status Reason Start Date Expiration Date Visits Requ ested Visits Authorized [id number] Closed 06/13/2018 06/13/2019 1 Encounter Details Date Type Department Care Team Description 06/13/2018 Immunization Department of Family Chandni Urbina, munization Only Medicine, Hakeem BRITTON C.N.P., (Primary D x) [facility], in D.N.P. [address] [address] [place], [place] [phone] [address] (Work) [phone] Social History Tobacco Use Types Packs/Day Years [...] How often do you attend voodoo or synagogue Never 10/23/2020 services? 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 [address] [place] [address] documented as of this encounter
--- OUTSIDE RECORDS SUMMARY | 2022-07-20 10:51 | XMS_ITS | Encounter Summary ---
:1995 Author Organization [facility] Address [address] [place] [address] Care Team Providers Name Role Phone Holley Saucedo APRN C.N.P. 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 PCP - General 01/27/17 12/09/17 documented as of this encounter
--- OUTSIDE RECORDS SUMMARY | 2022-07-20 10:51 | XMS_ITS | Encounter Summary ---
:1995 Author Organization [facility] Address [address] [place] [address] Care Team Providers Name Role Phone Holley Saucedo APRN, C.N.P. Primary Care Provider [phone] Reason for Visit Reason Comments Med Refill Encounter Details Date Type Department Care Team Description 11/04/2017 Refill Department of [facility] Holley Saucedo APRN, Med Refill Medicine, [place] C.N.P. [facility], in [address] [place] [address] [place] [phone] Social History Tobacco Use Types Packs/Day Years [...] How often do you attend buddhist or restorationism Never 10/23/2020 services? 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 PCP - General 01/27/17 12/09/17 documented as of this encounter
--- OUTSIDE RECORDS SUMMARY | 2022-07-20 10:51 | XMS_ITS | Encounter Summary ---
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 PCP - General 01/27/17 12/09/17 documented as of this encounter
--- OUTSIDE RECORDS SUMMARY | 2022-07-20 10:51 | XMS_ITS | Encounter Summary ---
:1995 Author Organization [facility] Address [address] [place] [address] Care Team Providers Name Role Phone Holley Saucedo APRN C.N.PGonzalo Primary Care Provider Encounter Details Date Type Department Care Team Description 10/27/2017 Hospital Encounter Department of Charisma Castellon in Low Back Radiology in [facility] [address] [phone] Social History Tobacco Use Types Packs/Day Years [...] How often do you attend sikhism or yarsani Never 10/23/2020 services? 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 PCP - General 01/27/17 12/09/17 documented as of this encounter
--- OUTSIDE RECORDS SUMMARY | 2022-07-20 10:51 | XMS_ITS | Encounter Summary ---
:1995 Author Organization [facility] Address [address] [place] [address] Care Team Providers Name Role Phone Chandni Urbina APRN C.N.P., D.N.P. Primary Care Provider Encounter Details Date Type Department Care Team Description 12/19/2017 Orders Only Department of Family Chandni Urbina AP RN, Medicine, [place] C.N.P., D .N.P. 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 [address] [place] [address] documented as of this encounter
--- OUTSIDE RECORDS SUMMARY | 2022-07-20 10:51 | XMS_ITS | Encounter Summary ---
:1995 Author Organization [facility] Address [address] [place] [address] Care Team Providers Name Role Phone Chandni Urbina APRN, C.N.Mana, D.N.P. Primary Care Provider Reason for Visit Reason Comments Hip Pain Follow up left hip pain. Brittny verduzco work restrictions reviewed. Appointment Request (Routine) - Closed Specialty Diagnoses / Procedures Referred By Contact Refer red To Contact Family Medicine Referral ID Status Reason Start Date Expiration Date Visits Requ ested Visits Authorized [id number] Closed 01/05/2018 01/05/2019 1 Encounter Details Date Type Department Care Team Description 01/06/2018 Office Visit Department of Family Chandni Urbina He rniated Disc Lumbar (Primary Dx); Medicine, [place] TOBI C.N.PGonzalo, Pain Low Back Clinic, in [place] [address] [phone] Social History Tobacco Use Types Packs/Day Years [...] How often do you attend mu-ism or jewish Never 10/23/2020 services? 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 Adkins for ongoing low back pain related to her herniated disc. She plans to see him back in the clinic after her scheduled EMG on03/01/18. She last saw Dr. Adkins on 12/23/17. She has been doing physical therapy, OTC medication management, ice/heat, gentle stretching, and rest. 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 She also picks up in Dietary here in the [facility]. She would like to return to work. She believes that she'll be able to work downstairs for a full 8 hours, but probably not in longterm dueto the heavy lifting required. 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 She is unable to work at [place] [employer] until further notice and guidance from Pain [...] documented as of this encounter Care Teams Claims Correspondence Clerk Relationship Specialty Start Date End Date Chandni Urbina APRN, C.N.P., PCP - General Family Medicine 06/06/19 D.N.P. [address] [place] [phone] documented as of this encounter
--- OUTSIDE RECORDS SUMMARY | 2022-07-20 10:51 | XMS_ITS | Encounter Summary ---
:1995 Author Organization [facility] Address [address] [place] [address] Care Team Providers Name Role Phone Holley Arreola APRN, C.N.P. Primary Care Provider [phone] Reason for Visit Reason Comments Sore Throat Since tuesday. Chills, head ache, left ear pressure since yesterday, achy neck. Encounter Details Date Type Department Care Team Description 10/06/2017 Office Visit Department of Holley Newman Sor e Throat (Primary Dx); Medicine, Hakeem Baker APRN, C.N.P. Effusion Ear Middle Left; [facility], in [address] [place] [address] Chills Without Fever; [place], [place] [address] Headache Benign [place] [phone] [place] [address] (Work) [place] [address] Social History Tobacco Use Types [...] How often do you attend evangelical or tenriism Never 10/23/2020 services? Do you [...] at Date Recorded Female 08/12/2017 10:51 AM AEMT documented as of this encounter Last Filed Vital Signs Vital Sign Reading Time Taken Comments Blood Pressure 113/67 10/06/2017 8:42 AM AEMT Pulse 108 10/06/2017 8:42 AM AEMT Temperature 37.4 ??C (99.3 ??F) 10/06/2017 8:42 AM AEMT Respiratory Rate 18 10/06/2017 8:42 AM AEMT Oxygen Saturation 97% 10/06/2017 8:42 AM AEMT Inhaled Oxygen Concentration - - Weight 99 kg (218 lb 4.1 oz) 10/06/2017 8:42 AM AEMT Height - - Body Mass Index 35.23 08/31/2017 4:59 PM AEMT documented in this encounter Progress Notes Holley Arreola, TOBI, C.N.P. - 10/06/2017 8:45 AM [...] Middle Left She was instructed to use [id number] daily Claritin for 7-10 days for symptom management. #3 Chills Without Fever See #1 above. #4 Headache Benign See #1 above. She was instructed to contact the clinic with worsening or no improvement in symptoms.All questions were answered. She left in no acute distress. Holley Arreola APRN, C.N.P. Answers for HPI/ROS submitted by the patient on 08/12/2017 Sinus congestion: Yes Chest pain, pressure or tightness: Yes Shortness of breath when lying flat: Yes Shortness of breath: Yes Coughing up mucus (phlegm): Yes Wheezing: Yes documented in this encounter Miscellaneous Notes Addendum Note - Holley Arreola APRN, C.N.P. - 10/06/2017 8:45 AM AEMT Addended by: HOLLEY ARREOLA on: 10/06/2017 09:43 AM Modules accepted: Orders documented in this encounter Plan of Treatment Not on filedocumented as of this encounter Procedures Procedure Name Priority Date/Time Associated Diagnosis Comme nts RAPID STREP A Routine 10/06/2017 9:07 AM Sore Throat Results for this SCREEN AEMT procedure are i n the results section. documented in this encounter Results (ABNORMAL) Rapid Strep A Screen Throat (10/06/2017 9:07 AM AEMT) [facility] Method Time Signature Rapid Strep A Positive (A) Negative 10/06/2017 [facility] Screen 9:19 AM AEMT [facility] Specimen Anatomical Collection Method Collection Time Receive d Time (Source) Location / / Volume Laterality Varies (Throat) 10/06/2017 9:07 AM 2017 9:09 AEMT AM AEMT Holley Arreola APRN, C.N.P. LAB MICROBIOLOGY - GENE RAL ORDERABLES Performing Organization Address City/State/ZIP Code Phon e Number [facility] [address] [place] [address], [place] [address] [facility] documented in this encounter Visit Diagnoses Diagnosis Sore Throat - Primary Effusion Ear Middle Left Chills Without Fever Headache Benign documented in this encounter Additional Health Concerns Assessment Noted Time PHQ-9 Depression Total Score: 9 08/30/2017 4:00 PM AEMT documented as of this encounter Care Teams Sales Order Clerk Relationship Specialty Start Date End Date Holley Arreola APRN, C.N.P. PCP - General 01/27/17 12/09/17 documented as of this encounter
--- OUTSIDE RECORDS SUMMARY | 2022-07-20 10:51 | XMS_ITS | Encounter Summary ---
:1995 Author Organization [facility] Address [address] [place] [address] Care Team Providers Name Role Phone Holley Saucedo APRN, C.N.P. Primary Care Provider [phone] Reason for Referral MRI/CAT/PET Scan (Routine) - Closed Specialty Diagnoses / Procedures Referred By Contact Refer red To Contact Radiology Diagnoses Pain Hip Left Holley Saucedo APRN, [facility] [place] [facility] Procedures MR Hip Left without IV Contrast C.N.P. [address] [place] [address] Referral ID Status Reason Start Date Expiration Date Visits Requ ested Visits Authorized [id number] Closed 08/18/2017 02/14/2018 1 1 BAG STRIPPER Reason for Visit MRI/CAT/PET Scan (Routine) - Closed Specialty Diagnoses / Procedures Referred By Contact Refer red To Contact Radiology Diagnoses Pain Hip Left Holley Saucedo APRN, [facility] [place] [facility] Procedures MR Hip Left without IV Contrast C.N.P. [address] [place] [address] Referral ID Status Reason Start Date Expiration Date Visits Requ ested Visits Authorized [id number] Closed 08/18/2017 02/14/2018 1 1 Encounter Details Date Type Department Care Team Description 09/22/2017 Hospital Encounter Department of Holley Saucedo P aicarlos Hip Left Radiology in [place] [address] [address] [place], [place] [phone] (W ork) [phone] Social History Tobacco Use Types Packs/Day Years [...] How often do you attend confucianist or voodoo Never 10/23/2020 services? Do you [...] Date Recorded Female 08/12/2017 10:51 AM AIR BAG STRIPPER documented as of this encounter Medications at [...] r this WITHOUT IV (most inpatients PM AIR BAG STRIPPER procedure a re in CONTRAST and all the results outpatients) section. documented in this encounter Results MR Hip Left without IV Contrast (09/22/2017 3:16 PM AIR BAG STRIPPER) Anatomical Region Laterality Modality Lower Extremity, Hip Left Magnetic Resonance Specimen (Source) Anatomical Collection Method Collection Time Re ceived Time Location / / Volume Laterality 09/22/2017 3:31 PM AIR BAG STRIPPER Impressions 09/22/2017 3:41 PM AIR BAG STRIPPER IMPRESSION: 1. ??No acute appearing abnormality of t he left hip. 2. ??Incidentally noted disc desiccation with mild disc protrusion of the lower lumbar spine. Narrative 09/22/2017 3:41 PM AIR BAG STRIPPER EXAM: MR HIP LEFT WITHOUT IV CONTRAST [...] Depression Total Score: 9 08/30/2017 4:00 PM AIR BAG STRIPPER documented as of this encounter Care Teams Contact Assembler Relationship Specialty Start Date End Date Holley Saucedo APRN, C.N.P. PCP - General 01/27/17 12/09/17 documented as of this encounter
--- OUTSIDE RECORDS SUMMARY | 2022-07-20 10:51 | XMS_ITS | Encounter Summary ---
:1995 Author Organization [facility] Address [address] [place] [address] Care Team Providers Name Role Phone Holley Saucedo APRN, C.N.P. Primary Care Provider [phone] Reason for Visit Reason Comments Communication Encounter Details Date Type Department Care Team Description 09/23/2017 Clinical Communication Department of Pina Newman Communication Medicine, Hakeem Baker APRN, C.N.P. [facility], [address] [place] [address] [place], [place] (Work) [phone] Social History Tobacco Use [...] How often do you attend congregation or zoroastrianism Never 10/23/2020 services? 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 - 09/23/2017 12:07 PM FIBER DRIER OPERATOR Pt called back to clinic, imaging results relayed to her. Pt verbalized understanding and transferred to scheduling for ortho visit. R DRIER OPERATOR Telephone Encounter - Edith Corona R.N. - 09/23/2017 11:16 AM FIBER DRIER OPERATOR RN tried to contact pt, no answer, will try again after 12pm. Result note listed under imaging in pt's chart. R DRIER OPERATOR Telephone Encounter - Matilde Yeung - 09/23/2017 10:51 AM CST Patient returned nurse call regarding MRI results. She said the best time to reach her will be [id number]. R DRIER OPERATOR documented in this encounter Plan of Treatment Not on filedocumented as of this encounter Visit Diagnoses Not on filedocumented in this encounter Additional Health Concerns Assessment Noted Time PHQ-9 Depression Total Score: 9 08/30/2017 4:00 PM FIBER DRIER OPERATOR documented as of this encounter Care Teams Build Technician Relationship Specialty Start Date End Date Holley Saucedo APRN, C.N.P. PCP - General 01/27/17 12/09/17 documented as of this encounter
--- OUTSIDE RECORDS SUMMARY | 2022-07-20 10:52 | XMS_ITS | Encounter Summary ---
:1995 Author Organization [facility] Address [address] [place] [address] Care Team Providers Name Role Phone Holley Saucedo APRN, C.N.P. Primary Care Provider [phone] Reason for Visit Physical Therapy (Routine) - Canceled Specialty Diagnoses / Procedures Referred By Contact Refer red To Contact Diagnoses Pain Hip Left Holley Saucedo APRN, [facility] Procedures PT Ongoing treatment C.N.P. [address] [place] [address] Referral ID Status Reason Start Date Expiration Date Visits V isits Requested Authorized [id number] Canceled 06/13/2017 12/10/2017 12 99 Encounter Details Date Type Department Care Team Description 06/21/2017 Clinical Support Department of Aspen Saucedo APRN, C.N.P. [address] [place] [address] Pain Hip Left Rehabilitation Services Vandana Au, P.T. in [address] [phone] Social History Tobacco Use Types Packs/Day Years [...] How often do you attend uatsdin or amish Never 10/23/2020 services? 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 PCP - General 01/27/17 12/09/17 documented as of this encounter
--- OUTSIDE RECORDS SUMMARY | 2022-07-20 10:52 | XMS_ITS | Encounter Summary ---
:1995 Author Organization [facility] Address [address] [place] [address] Care Team Providers Name Role Phone Holley Saucedo APRN C.N.P. Primary Care Provider [phone] Encounter Details Date Type Department Care Team Description 06/24/2017 Clinical Communication Department of [facility] Rehabilitation Services Vandana Baker P.T. in [address] [phone] Social History Tobacco Use Types Packs/Day Years [...] How often do you attend latter-day or episcopalian Never 10/23/2020 services? 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 PCP - General 01/27/17 12/09/17 documented as of this encounter
--- OUTSIDE RECORDS SUMMARY | 2022-07-20 10:52 | XMS_ITS | Encounter Summary ---
:1995 Author Organization [facility] Address [address] [place] [address] Care Team Providers Name Role Phone Holley Saucedo APRN C.N.P. Primary Care Provider [phone] Encounter Details Date Type Department Care Team Description 05/28/2017 Abstract Department of Family Medicine in [place], [place] [address] [place], [place] [phone] Social History Tobacco Use [...] How often do you attend hinduism or congregational Never 10/23/2020 services? Do you [...] at Date Recorded Female 08/12/2017 10:51 AM PRACTICAL NURSE documented as of this encounter Plan of Treatment Not on filedocumented as of this encounter Visit Diagnoses Not on filedocumented in this encounter Additional Health Concerns Assessment Noted Time PHQ-9 Depression Total Score: 18 04/05/2017 2:38 PM CD T documented as of this encounter Care Teams Merchandising Team Lead Relationship Specialty Start Date End Date Holley Saucedo APRN, C.N.P. PCP - General 01/27/17 12/09/17 documented as of this encounter
--- OUTSIDE RECORDS SUMMARY | 2022-07-20 10:52 | XMS_ITS | Encounter Summary ---
:1995 Author Organization [facility] Address [address] [place] [address] Care Team Providers Name Role Phone Holley Saucedo APRN, C.N.P. Primary Care Provider [phone] Reason for Visit Reason Comments Communication Quantiferon-TB lab Encounter Details Date Type Department Care Team Description 08/16/2017 Clinical Department of [place] Saucedo Family MedicineHolley, (Quantifer on-TB lab) [place] TOBI, C.N.P. [facility], in [address] [phone] [place], [place] (Work) [phone] Social History Tobacco Use [...] How often do you attend scientology or holiness Never 10/23/2020 services? 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 - 09/09/2017 12:21 PM BRAKE LININGS COATER Called pt with message from provider. Pt stated understanding and transferred to front dest to schedule lab visit. E LININGS COATER Telephone Encounter - Holley Saucedo APRN, C.N.P. - 09/09/2017 11:14 AM BRAKE LININGS COATER Please call patient and let her know that I ordered the QuantiFERON-TB lab test, so she can come in anytime to complete this screen. Thanks! E LININGS COATER Telephone Encounter - Edith Corona R.N. - 09/09/2017 11:05 AM BRAKE LININGS COATER Please advise if willing to order based on message below. E LININGS COATER Telephone Encounter - Felisha Dumont - 09/09/2017 10:34 AM CST Patient called and needs an order for a quanteferon lab draw in place of a TB test. Patient states she dose not have time for the TB test. Patient could also have a T spot. Patient can be reached at [phone] E LININGS COATER documented in this encounter Plan of Treatment Not on filedocumented as of this encounter Results QuantiFERON-TB Gold In-Tube for Detection of Latent Tuberculosis (09/12/2017 4:45 PM BRAKE LININGS COATER) athologist Signature QuantiFERON-TB Negative Negative 09/15/2017 [facility] Gold Result 1:25 PM [facility] Comment: No interferon-gamma response to M. tuber culosis antigens was detected. Infection with M. tubercul osis is unlikely. A negative result alone does not exclude infection with M. tuberculosis. For detailed information regarding test interpretation see: [email or web address] [email or web address]/ Clinical+and+Interpretive/44014 TB Ag minus Nil Result 0.01 IU/mL 09/15/2017 1:25 P M [facility] Mitogen minus Nil >10.00 IU/mL 09/15/2017 1:25 PM [facility] Nil Result 0.02 IU/mL 09/15/2017 1:[address] [facility] Specimen Anatomical Collection Method Collection Time Receive d Time (Source) Location / / Volume Laterality Blood (Blood, 09/12/2017 4:45 PM 09/13/19 18 3:58 Venous) BRAKE LININGS COATER PM BRAKE LININGS COATER Narrative [facility] - 09/15/2017 1:25 PM BRAKE LININGS COATER Specimen Information: Specimen ID: [id number] Specimen Type: Blood Specimen Collection Start Date: 09/12/19 18 ??4:45 PM Specimen Received Date: 09/13/2017 ??3:5 8 PM Specimen ID: [id number] Specimen Type: Blood Specimen Collection Start Date: 09/12/19 18 ??4:45 PM Specimen Received Date: 09/13/2017 ??3:5 8 PM Specimen ID: [id number] Specimen Type: Blood Specimen Collection Start Date: 09/12/19 18 ??4:45 PM Specimen Received Date: 09/13/2017 ??3:5 8 PM Holley Saucedo APRN, C.N.P. LAB MICROBIOLOGY - BLOO D ORDERABLES Performing Organization Address City/State/ZIP Code Phon e Number [facility] [address] [facility] [place], [place] [address] [facility] documented in this encounter Visit Diagnoses Diagnosis Immunity Disorder Screening Exam - Prima ry Immunity Disorder Screening Exam documented in this encounter Additional Health Concerns Assessment Noted Time PHQ-9 Depression Total Score: 17 07/12/2017 10:[address] documented as of this encounter Care Teams Die Attaching Machine Tender Relationship Specialty Start Date End Date Holley Saucedo APRN, C.N.P. PCP - General 01/27/17 12/09/17 documented as of this encounter
--- OUTSIDE RECORDS SUMMARY | 2022-07-20 10:52 | XMS_ITS | Encounter Summary ---
:1995 Author Organization [facility] Address [address] [place] [address] Care Team Providers Name Role Phone Holley Saucedo APRN, C.N.P. Primary Care Provider [phone] Reason for Visit Physical Therapy (Routine) - Canceled Specialty Diagnoses / Procedures Referred By Contact Refer red To Contact Diagnoses Pain Hip Left Holley Saucedo APRN, [facility] Procedures PT Ongoing treatment C.N.P. [address] [place] [address] Referral ID Status Reason Start Date Expiration Date Visits V isits Requested Authorized [id number] Canceled 06/13/2017 12/10/2017 12 99 Encounter Details Date Type Department Care Team Description 06/24/2017 Clinical Support Department of Aspen Saucedo APRN, C.N.P. [address] [place] [address] Pain Hip Left Rehabilitation Services Vandana Au, P.T. in [address] [phone] Social History Tobacco Use Types Packs/Day Years [...] How often do you attend judaism or tenriism Never 10/23/2020 services? 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 - 06/24/2017 9:15 AM CST Physical Therapy Outpatient Treatment Note Referring Provider: Holley Saucedo C.N.P., R.N. Medical Diagnosis: 1. Pain Hip Left - PT Ongoing treatment Payor: Payor: [facility] [employer] / Plan: [facility] CARE / Product Type: Medicaid HMO [...] Time (min): 22 min Functional G-code Worksheet BUYER documented in this encounter Plan of Treatment Not on filedocumented as of this encounter Visit Diagnoses Diagnosis Pain Hip Left documented in this encounter Additional Health Concerns Assessment Noted Time PHQ-9 Depression Total Score: 18 04/05/2017 2:38 PM CD T documented as of this encounter Care Teams Stucco Laborer Relationship Specialty Start Date End Date Holley Saucedo APRN, C.N.P. PCP - General 01/27/17 12/09/17 documented as of this encounter
--- OUTSIDE RECORDS SUMMARY | 2022-07-20 10:52 | XMS_ITS | Encounter Summary ---
:1995 Author Organization [facility] Address [address] [place] [address] Care Team Providers Name Role Phone Unavailable Primary Care Provider Unavailable Encounter Details Date Type Department Care Team Description 11/16/2016 Hospital Encounter HX [facility] [place] Francisca Arreola, SUPERVISOR PUBLIC MESSAGE SERVICE, C.N.P. [address] [place], [place] [address] (Wo rk) Social History [...] How often do you attend baptism or religion Never 10/23/2020 services? 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 I ordered vaginal clindamycin to be taken as directed for symptom management. Ordered: OV Est Pt Level 4 - 40768 - 25 min Vaginitis Panel, DNA (Genital) Vaginal Itching See #2 above. All questions were answered. He left in no acute distress. A total of 25 minutes with20 minutes used for counseling and coordination of care. Ordered: OV Est Pt Level 4 - 32532 - 25 min Vaginitis Panel, DNA (Genital) Orders: venlafaxine, 75 mg = 1 cap(s), PO, Daily, # 30 cap(s), 2 Refill(s), Maintenance, Pharmacy: [facility] Electronically Signed By: HOLLEY ARREOLA NP On: 11/28/2016 10:24 PM Source: [facility] POWERCHART Document Id: [id number] documented in this encounter Miscellaneous Notes Miscellaneous - Tami Ceballos - 12/21/2016 2:27 PM CDT Health Maintenance Reminder December 21, 2016 DHIRAJ LANDA [address] [facility] [address] Dear DHIRAJ LANDA, We have developed a [...] visit with us more convenient. Please call [phone] to schedule services that are past due or that may shortly become due (thank you if you have already done so). We will follow up in three to six months should you have more services to schedule at that time. If you have already received any of the listed past due or upcoming services outside of [facility], please call [phone] to add them to your medical record. You may want to consider contacting your health insurance company to make sure these services are covered and find out if there will be any zgf-ru-kxwonm expense. If you have any questions about the services listed above, or if you are no longer receiving care from [facility], please contact us at [phone]. Thank you for partnering to provide you with the best care possible. Thank you for choosing us, Holley Arreola R.N. and the [place] [facility] Team, for your health care needs! Sincerely, TAMI CEBALLOS Electronic Signature Electronically Signed By: TAMI CEBALLOS On: December 21, 2016 This document has images extracted. Source: [facility] [employer] Document Id: [id number] Electronically signed by Conversion, [facility] Circuit Breaker Supervisor [id number] at 01/25/2017 6:57 AM CDT Miscellaneous - Dennys Nelson - 11/22/2016 3:49 PM CDT PA Clindamycin From: DENNYS NELSON ([facility] Resolution Agent/Referrals) To: DENNYS NELSON; Sent: 11/22/2016 15:49:17 CDT Subject: PA Clindamycin PA submitted on CM PA approved 11/19/2016-12/23/2016 Source: [facility] [employer] Document Id: [id number] Electronically signed by Conversion, [facility] Circuit Breaker Supervisor [id number] at 01/25/2017 6:57 AM CDT Miscellaneous - [...] voice mail with the phone number of [phone]. I did, then call her back and got a voice mail. I then left a very generic message that there was a prescription awaiting her pickle processor at [facility] and instructed her to call back should she want specifics. Addendum by CONSUELO DIA LPN on November 17, 2016 11:41:25 CDT called and lvm to contact us regarding message below. From: HOLLEY ARREOLA TERRA COTTA MOLD MAKER To: [facility] Nurse Mitesh; Sent: 11/17/2016 11:26:59 CDT Show up: 11/17/2016 11:26:00 CDT Subject: Results Notification Please call patient and let her know that her vaginal panel was positive for bacteria, but no fungalinfection. I sent a script for clindamycin vaginal application to [facility]. Thanks! Results: Date Result Type Ind Result Name MBO POS Vaginosis Panel, DNA Source: [facility] [employer] Document Id: [id number] Consuelo Diaz L.P.NGonzalo - 11/16/2016 2:30 PM [...] DIA LPN - 11/16/2016 14:30 CDT Source: [facility] [employer] Document Id: [id number] CDT!11 Consuelo Diaz L.P.Berta - 11/16/2016 2:30 [...] DIA LPN - 11/16/2016 14:30 CDT Source: [employer] Document Id: [id number] CDT!13 Miscellaneous - Holley Arreola RChristy - 11/16/2016 1:56 PM CDT Ambulatory Patient Summary [address] [id number] Visit Information Name: SYEDADHIRAJE [facility] Number: [id number] Current Date: 11/16/2016 13:56:55 Physicians Attending Provider: HOLLEY ARREOLA NP Primary Care Provider: HOLLEY ARREOLA TERRA COTTA MOLD MAKER DHIRAJ LANDA has been given the following [...] nasal (Flonase 0.05 mg/inh nasal spray) 2 Chandler(s), Nasal, two times a day fluticasone-salmeterol (Advair [...] day This is a CHANGE Routed to [address] [address] Stop Taking the Following Medications: Medication list [...] of emergency. Electronically Signed By: HOLLEY ARREOLA TERRA COTTA MOLD MAKER Signed On:16-NOV-2016 13:56:50 Your Allergies & Intolerances [...] if you dont have one. Go to [email or web address] and click on Create Your Account. Then, follow the directions to complete the online form. Youll be asked for your [facility] number which you can find at the top of this document. Your Goals/Additional instructions: Source: [facility] POWERCHART Document Id: [id number] Miscellaneous - Holley Arreola R.N. - 11/16/2016 1:56 PM CDT Ambulatory Discharge Medication List [address] [place] [id number] Visit Information Name: DHIRAJ LANDA [facility] Number: [id number] Current Date: 11/16/2016 13:56:54 Attending Provider: HOLLEY ARREOLA TERRA COTTA MOLD MAKER Primary Care Provider: HOLLEY ARREOLA TERRA COTTA MOLD MAKER DHIRAJ LANDA has been given the following [...] nasal (Flonase 0.05 mg/inh nasal spray) 2 Chandler(s), Nasal, two times a day fluticasone-salmeterol (Advair [...] day This is a CHANGE Routed to [address] [place] [address] Stop Taking the Following Medications: Medication list [...] of emergency. Electronically Signed By: HOLLEY ARREOLA TERRA COTTA MOLD MAKER Signed On:16-NOV-2016 13:56:50 Additional Information: Source: [facility] POWERCHART Document Id: [id number] Miscellaneous - Victoriano Vicente LGonzaloP.N. - 11/16/2016 1:21 PM CDT Adult Integrated Campaign Manager Intake/History Adult Integrated Campaign Manager Intake/History Entered On: 11/16/2016 13:26 CDT Performed [...] Given By : Patient Languages : French Is Patient Female and [age] no hysterectomy [...] Use/Year : 2015 Alcohol Use : Yes MARION VICENTEVICKI Heller - 11/16/2016 13:21 CDT Caffeine Use Grid Caffeine Use : Current Type : Soft drinks Frequency : Occasionally VICTORIANO VICENTE - 11/16/2016 13:21 CDT Recreational Drug Use Grid Drug Use : None VICTORIANO VICENTE - 11/16/2016 13:21 CDT Source: [facility] POWERCHART Document Id: [id number] CDT!40 documented in this encounter Plan of [...] Value Ref Test Analysis Performed At [facility] gist Range Method Time Signature HXVaginitis [...]
--- OUTSIDE RECORDS SUMMARY | 2022-07-20 10:52 | XMS_ITS | Encounter Summary ---
:1995 Author Organization [facility] Address [address] [place] [address] Care Team Providers Name Role Phone Holley Saucedo APRN, C.N.P. Primary Care Provider [phone] Reason for Visit Physical Therapy (Routine) - Canceled Specialty Diagnoses / Procedures Referred By Contact Refer red To Contact Diagnoses Pain Hip Left Holley Saucedo APRN, [facility] Region Procedures PT Ongoing treatment C.N.P. [address] [place] [address] Referral ID Status Reason Start Date Expiration Date Visits V isits Requested Authorized [id number] Canceled 06/13/2017 12/10/2017 12 99 Encounter Details Date Type Department Care Team Description 08/02/2017 Clinical Support Department of Aspen Saucedo APRN, C.N.P. [address] [place] [address] Pain Hip Left Rehabilitation Services Vandana Au, P.T. in [address] [phone] Social History Tobacco Use Types Packs/Day Years [...] How often do you attend zoroastrianism or congregation Never 10/23/2020 services? 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 PCP - General 01/27/17 12/09/17 documented as of this encounter
--- OUTSIDE RECORDS SUMMARY | 2022-07-20 10:52 | XMS_ITS | Encounter Summary ---
:1995 Author Organization [facility] Address [address] [place] [address] Care Team Providers Name Role Phone Holley Saucedo APRN, C.N.P. Primary Care Provider [phone] Encounter Details Date Type Department Care Team Description 09/12/2017 Hospital Encounter Department of Holley Saucedo nitpaty Disorder Laboratory Medicine TOBI Baker, C.N .P. Screening Exam in [address] [phone] [place], [place] (Work) [address] Social History Tobacco Use [...] How often do you attend restoration or mormonism Never 10/23/2020 services? Do you [...] at Date Recorded Female 08/12/2017 10:51 AM SURGERY AID documented as of this encounter Medications at [...] Disord er Results for this PLUS, B SURGERY AID Screening Exam procedure are in the results section. documented in this encounter Results QuantiFERON-TB Gold In-Tube for Detection of Latent Tuberculosis (09/12/2017 4:45 PM SURGERY AID) athologist Signature QuantiFERON-TB Negative Negative 09/15/2017 [facility] Gold Result 1:25 PM [facility] Comment: No interferon-gamma response to M. tuber culosis antigens was detected. Infection with M. tubercul osis is unlikely. A negative result alone does not exclude infection with M. tuberculosis. For detailed information regarding test interpretation see: [email or web address] Storage SoftwareoraISIS [email or web address]/test-cat alog/ Clinical+and+Interpretive/36696 TB Ag minus Nil Result 0.01 IU/mL 09/15/2017 1:[address] [facility] Mitogen minus Nil >10.00 IU/mL 09/15/2017 1:25 PM SURGERY AID [facility] Nil Result 0.02 IU/mL 09/15/2017 1:25 PM [facility] Specimen Anatomical Collection Method Collection Time Receive d Time (Source) Location / / Volume Laterality Blood (Blood, 09/12/2017 4:45 PM 09/13/19 18 3:58 Venous) SURGERY AID PM SURGERY AID Narrative [facility] - 09/15/2017 1:25 PM SURGERY AID Specimen Information: Specimen ID: [id number] Specimen Type: Blood Specimen Collection Start Date: 09/12/19 18 ??4:45 PM Specimen Received Date: 09/13/2017 ??3:5 8 PM Specimen ID: [id number] Specimen Type: Blood Specimen Collection Start Date: 09/12/19 18 ??4:45 PM Specimen Received Date: 09/13/2017 ??3:5 8 PM Specimen ID: [id number] Specimen Type: Blood Specimen Collection Start Date: 09/12/19 18 ??4:45 PM Specimen Received Date: 09/13/2017 ??3:5 8 PM Holley Saucedo APRN, C.N.P. LAB MICROBIOLOGY - BLOO D ORDERABLES Performing Organization Address City/State/ZIP Code Phon e Number [facility] [address] [place] [address], [place] [address] [facility] documented in this encounter Visit Diagnoses Diagnosis Immunity Disorder Screening Exam documented in this encounter Additional Health Concerns Assessment Noted Time PHQ-9 Depression Total Score: 9 08/30/2017 4:00 PM SURGERY AID documented as of this encounter Care Teams [employer] Dean Relationship Specialty Start Date End Date Holley Saucedo APRN, C.N.P. PCP - General 01/27/17 12/09/17 documented as of this encounter
--- OUTSIDE RECORDS SUMMARY | 2022-07-20 10:52 | XMS_ITS | Encounter Summary ---
:1995 Author Organization [facility] Address [address] [place] [address] Care Team Providers Name Role Phone Holley Saucedo APRN, C.N.P. Primary Care Provider [phone] Reason for Referral Behavioral Health (Routine) - Closed Specialty Diagnoses / Procedures Referred By Contact Refer red To Contact Psychiatry / Psychiatry Diagnoses Notes for Emmanuel Garibay: Fam Med IB Psych New Patient;Hx of depression/anxiety/increased mood swings/anger concerns Holley Saucedo, [facility] and Psychology Procedures Office Visit TOBI C.N.P. [address] [place] [address] Referral ID Status Reason Start Date Expiration Date Visits Requ ested Visits Authorized [id number] Closed 05/27/2017 07/15/2017 1 1 Encounter Details Date Type Department Care Team Description 05/27/2017 Orders Only Department of [facility] Holley Saucedo, Medicine, [place] TOBI, C.N .P. Clinic, in [place], [address] [place] [address] [address] [place], [place] [address] [phone] Social History Tobacco Use Types Packs/Day Years [...] How often do you attend christian or amish Never 10/23/2020 services? 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 PCP - General 01/27/17 12/09/17 documented as of this encounter
--- OUTSIDE RECORDS SUMMARY | 2022-07-20 10:52 | XMS_ITS | Encounter Summary ---
:1995 Author Organization [facility] Address [address] [place] [address] Care Team Providers Name Role Phone Holley Saucedo APRN, C.N.P. Primary Care Provider Encounter Details Date Type Department Care Team Description 08/30/2017 Nurse Triage Department of [facility], Kamla Baker , Medicine, [facility], R.N. in [place], [place] [address] [place] [address] Social History Tobacco Use Types Packs/Day Years [...] How often do you attend evangelical or hinduism Never 10/23/2020 services? 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 PCP - General 01/27/17 12/09/17 documented as of this encounter
--- OUTSIDE RECORDS SUMMARY | 2022-07-20 10:52 | XMS_ITS | Encounter Summary ---
:1995 Author Organization [facility] Address [address] [place] [address] Care Team Providers Name Role Phone Holley Saucedo APRN, C.N.P. Primary Care Provider [phone] Reason for Visit Reason Comments Med Refill Encounter Details Date Type Department Care Team Description 09/01/2017 Refill Department of [facility] Holley Saucedo APRN, Med Refill Medicine, [place] C.N.P. [facility], in [address] [place] [address] [place] [phone] Social History Tobacco Use Types Packs/Day Years [...] How often do you attend mosque or presybeterian Never 10/23/2020 services? 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 - 09/01/2017 3:27 PM CST Images from the original note were not included. Spoke with Manuel at [facility] and clarified Rx Sig according to provider message below: Chandni Urbina APRN, D.N.P., C.N.P. Rhianna Dubose C.M.A. Caller: Unspecified (Today, 12:45 PM) ?? Please call and confirm I'd like the patient to take Gabepentin 300mg for the first night, then start twice daily for 3 days, then 300mg TID until symptoms resolve. Thanks. OF STUDENT SERVICES Telephone Encounter - Roseline Haji - 09/01/2017 [...] x 3 days 300 mg TID thereafter OF STUDENT SERVICES documented in this encounter Plan of Treatment Not on filedocumented as of this encounter Visit Diagnoses Not on filedocumented in this encounter Additional Health Concerns Assessment Noted Time PHQ-9 Depression Total Score: 9 08/30/2017 4:00 PM DEAN OF STUDENT SERVICES documented as of this encounter Care Teams Environmental Health Specialist Relationship Specialty Start Date End Date Holley Saucedo APRN, C.N.P. PCP - General 01/27/17 12/09/17 documented as of this encounter
--- OUTSIDE RECORDS SUMMARY | 2022-07-20 10:52 | XMS_ITS | Encounter Summary ---
:1995 Author Organization [facility] Address [address] [place] [address] Care Team Providers Name Role Phone Holley Arreola APRN, C.N.P. Primary Care Provider [phone] Encounter Details Date Type Department Care Team Description 06/02/2017 Hospital Encounter [facility]X [facility] Francisca Arreola APRN, C.N.P. [address] [place], [place] [address] (Wo rk) Social History [...] How often do you attend jain or baptism Never 10/23/2020 services? 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 She reports her left hip pain is [...] Ordered: OV Est Pt Level 3 - 64531 - 15 min Orders: Physical Therapy Referral Consult and Treat Electronically Signed By: HOLLEY ARREOLA CNP RN On: 06/02/2017 08:38 AM Source: [facility] POWERCHART Document Id: [id number] documented in this encounter Miscellaneous Notes Miscellaneous - Dorian Davenport, L.P.N. - 06/02/2017 8:01 AM CDT Adult Assembler Metal Building Intake/History Adult Assembler Metal Building Intake/History Entered On: 06/02/2017 8:06 CDT Performed On: 06/02/2017 8:01 CDT by DORIAN DAVENPORT SHAKER PLATE OPERATOR Intake Chief Complaint : Left hip pain. Onset of Symptoms : December 2016 Ambulatory Intake Additional Information : Difficulty standing and lifting. 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 Temperature Core [...] Preferred Communication Mode : Verbal Languages : [place] Is Patient Female and 13-50 no hysterectomy [...] DORIAN DAVENPORT LPN 06/02/2017 8:01 CDT Source: [facility] POWERCHART Document Id: [id number] CDT!62 documented in this encounter Plan of Treatment Not on filedocumented as of this encounter Visit Diagnoses Not on filedocumented in this encounter Additional Health Concerns Assessment Noted Time PHQ-9 Depression Total Score: 18 04/05/2017 2:38 PM CD T documented as of this encounter Care Teams Vp Site Relationship Specialty Start Date End Date Holley Arreola APRN, C.N.P. PCP - General 01/27/17 12/09/17 documented as of this encounter
--- OUTSIDE RECORDS SUMMARY | 2022-07-20 10:52 | XMS_ITS | Encounter Summary ---
:1995 Author Organization [facility] Address [address] [place] [address] Care Team Providers Name Role Phone Unavailable Primary Care Provider Unavailable Encounter Details Date Type Department Care Team Description 01/03/2017 Hospital Encounter HX [facility] Francisca Arreola, ROLLER STITCHER, C.N.P. [address] [place], [place] [address] (Wo rk) Social History [...] How often do you attend scientology or confucianism Never 10/23/2020 services? 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 She will be due for a PHQ-9 and BO-7 screening in June of 2017. Ordered: OV Est Pt Level 2 - 95183 - 10 min Screening Lipid I cancelled [...] # 1 each, 3 Refill(s), Maintenance, Pharmacy: [facility] venlafaxine, 75 mg = 1 cap(s), PO, Daily, # 90 cap(s), 1 Refill(s), Maintenance, Pharmacy: [facility], Please previous script 01/03/17 Electronically Signed By: HOLLEY ARREOLA SAND CARRIER On: 01/03/2017 03:33 PM [facility]: [facility] Document Id: [id number] documented in this encounter Miscellaneous Notes Miscellaneous [...] MEDELLIN LPN - 01/03/2017 15:35 CDT Source: [employer]Picker Document Id: [id number] CDT!14 Miscellaneous - Holley Arreola RGonzaloNGonzalo - 01/03/2017 3:19 PM CDT Ambulatory Patient Summary [address] [id number] Visit Information Name: DHIRAJ LANDA [facility] Number: [id number] Current Date: 01/03/2017 15:19:20 Physicians Attending Provider: HOLLEY ARREOLA NP Primary Care Provider: HOLLEY ARREOLA SAND CARRIER DHIRAJ LANDA has been given the following [...] Shortness of breath / Wheezing Routed to [address] [id number] fluticasone nasal (Flonase 0.05 mg/inh nasal spray) 2 Wheelwright(s), Nasal, two times a day levonorgestrel-ethinyl estradiol (Chateal 0.15 mg-30 mcg oral tablet) 1 Tablet(s), Oral, once a day traZODone (traZODone 50 mg oral tablet) 1 Tablet(s), Oral, once a day venlafaxine (Effexor XR 75 mg oral capsule, extended release) 1 cap, Oral, once a day Routed to [address] [address] Stop Taking the Following Medications: [...] of emergency. Electronically Signed By: HOLLEY ARREOLA SAND CARRIER Signed On:03-JAN-2017 15:19:15 Your Allergies & Intolerances [...] if you dont have one. Go to [email or web address] and click on Create Your Account. Then, follow the directions to complete the online form. Youll be asked for your [facility] number which you can find at the top of this document. Your Goals/Additional instructions: Source: [facility] POWERCHART Document Id: [id number] Miscellaneous - Holley Arreola R.N. - 01/03/2017 3:19 PM CDT Ambulatory Discharge Medication List [address] [id number] Visit Information Name: DHIRAJ LANDA [facility] Number: [id number] Current Date: 01/03/2017 15:19:18 Attending Provider: HOLLEY ARREOLA SAND CARRIER Primary Care Provider: HOLLEY ARREOLA SAND CARRIER DHIRAJ LANDA has been given the following [...] Shortness of breath / [facility]zing [facility] [address] [place] [address] [phone] fluticasone nasal (Flonase 0.05 mg/inh nasal spray) 2 Wheelwright(s), Nasal, two times a day levonorgestrel-ethinyl estradiol (Chateal 0.15 mg-30 mcg oral tablet) 1 Tablet(s), Oral, once a day traZODone (traZODone 50 mg oral tablet) 1 Tablet(s), Oral, once a day venlafaxine (Effexor XR 75 mg oral capsule, extended release) 1 cap, Oral, once a day Routed to [address] [address] Stop Taking the Following Medications: Medication list [...] of emergency. Electronically Signed By: HOLLEY ARREOLA SAND CARRIER Signed On:03-JAN-2017 15:19:15 Additional Information: Source: [facility] POWERCHART Document Id: [id number] Miscellaneous - Jennifer Medellin L.P.N. - 01/03/2017 3:14 PM CDT Health Assessment [...] None Behavioral Health Screen/Safety Assmt : No Sikh Preference : JENNIFER Jamison LPN - 01/03/2017 15:14 CDT Advance Directive Advanced Directives : No Advance Directive Additional Information : No JENNIFER MEDELLIN LPN - 01/03/2017 15:14 CDT Educ Needs Learning Style Preference Adult Grid Patient : None Family : None JENNIFER MEDELLIN LPN - 01/03/2017 15:14 CDT Source: [facility] Dash[employer] Document Id: [id number] CDT!37 Miscellaneous - Jennifer Medellin L.P.N. - 01/03/2017 2:52 PM CDT Adult Account Support Associate Intake/History Adult Account Support Associate Intake/History Entered On: 01/03/2017 14:55 CDT Performed [...] Information Given By : Patient Languages : Mosotho Is Patient Female and [...] Soft drinks Frequency : Occasionally JENNIFER MEDELLIN AIRCRAFT FUSELAGE FRAMER 01/03/2017 14:52 CDT Recreational Drug Use Grid Drug Use : None JENNIFER MEDELLIN LPN 01/03/2017 14:52 CDT Source: [facility] [employer] Document Id: [id number] CDT!43 documented in this encounter Plan of Treatment Not on filedocumented as of this encounter Visit Diagnoses Not on filedocumented in this encounter Additional Health Concerns Assessment Noted Time PHQ-9 Depression Total Score: 14 11/16/2016 2:30 PM CD T documented as of this encounter
--- OUTSIDE RECORDS SUMMARY | 2022-07-20 10:52 | XMS_ITS | Encounter Summary ---
:1995 Author Organization [facility] Address [address] [place] [address] Care Team Providers Name Role Phone Holley Saucedo APRN, C.N.P. Primary Care Provider [phone] Reason for Referral MRI/CAT/PET Scan (Routine) - Closed Specialty Diagnoses / Procedures Referred By Contact Refer red To Contact Radiology Diagnoses Pain Hip Left Holley Saucedo APRN, [facility] Region Procedures MR Hip Left without IV Contrast C.N.P. [address] [place] [address] Referral ID Status Reason Start Date Expiration Date Visits Requ ested Visits Authorized [id number] Closed 08/18/2017 02/14/2018 1 1 NING ROOM OPERATOR Reason for Visit Reason Comments Annual Exam Student exam (DCTC) Appointment Request (Routine) - Closed Specialty Diagnoses / Procedures Referred By Contact Refer red To Contact Referral ID Status Reason Start Date Expiration Date Visits Requ ested Visits Authorized [id number] Closed 08/16/2017 02/12/2018 1 1 Encounter Details Date Type Department Care Team Description 08/18/2017 Comprehensive Visit Department of Henrry Saucedone Immunization Influenza (Primary Dx); Family MedicineHolley, General Med ical Examination Adult; [place] TOBI, C.N.P. Pain Hip Left Clinic, in [place] [address] [facility] [phone] [place], [place] (Work) [phone] Social History Tobacco Use [...] How often do you attend anabaptism or uatsdin Never 10/23/2020 services? 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 documented as of this encounter Last Filed Vital Signs Vital Sign Reading Time Taken Comments Blood Pressure 123/69 08/18/2017 1:37 PM RIPENING ROOM OPERATOR Pulse 73 08/18/2017 1:37 PM RIPENING ROOM OPERATOR Temperature 36.8 ??C (98.2 ??F) 08/18/2017 1:37 PM RIPENING ROOM OPERATOR Respiratory Rate 16 08/18/2017 1:37 PM RIPENING ROOM OPERATOR Oxygen Saturation - - Inhaled Oxygen Concentration - - Weight 99 kg (218 lb 4.1 oz) 08/18/2017 1:37 PM RIPENING ROOM OPERATOR Height 166 cm (5' 5.35) 08/18/2017 1:37 PM RIPENING ROOM OPERATOR Body Mass Index 35.93 08/18/2017 1:37 PM RIPENING ROOM OPERATOR documented in this encounter Progress Notes Holley Saucedo CGonzaloN.P., R.N. 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 [...] she has received all her immunizations in [place]. She denies any other health concerns today. [...] tablet Take 10 mg by mouth. ??? prenat.vits,hernandez,bmo-clug-zdaqs ( VITAMIN) tablet Take 1 tablet by [...] Coughing up mucus (phlegm): Yes Wheezing: Yes NING ROOM OPERATOR documented in this encounter Plan of Treatment Not on filedocumented as of this encounter Procedures Procedure Name Priority Date/Time Associated Diagnosis Comme nts MMRV IMMUNE STATUS Routine 08/18/2017 2:48 PM General Medical Results for this PROFILE RIPENING ROOM OPERATOR Examination Adult procedure are in the results section. documented in this encounter Results MR Hip Left without IV Contrast (09/22/2017 3:16 PM RIPENING ROOM OPERATOR) Anatomical Region Laterality Modality Lower Extremity, Hip Left Magnetic Resonance Specimen (Source) Anatomical Collection Method Collection Time Re ceived Time Location / / Volume Laterality 09/22/2017 3:31 PM RIPENING ROOM OPERATOR Impressions 09/22/2017 3:41 PM RIPENING ROOM OPERATOR IMPRESSION: 1. ??No acute appearing abnormality of t he left hip. 2. ??Incidentally noted disc desiccation with mild disc protrusion of the lower lumbar spine. Narrative 09/22/2017 3:41 PM RIPENING ROOM OPERATOR EXAM: MR HIP LEFT WITHOUT IV [...] MMRV Immune Status Profile (08/18/2017 2:48 PM RIPENING ROOM OPERATOR) athologist Signature Measles Positive 08/19/2017 [facility] ([place]) Ab, 9:58 AM [facility] IgG, S SYSTEM- [facility] Comment: Results suggest response to immunization or prior exposure to the virus. ----REFERENCE VALUE---- Vaccinated: Positive (>=1.1 AI) Unvaccinated: Negative (<=0.8 AI) Measles IgG Antibody 4.2 08/19/2017 9:58 AM [facility] Mumps Ab, IgG, S Positive 08/19/2017 9:58 AM [facility] Comment: Results suggest response to immunization or prior exposure to the virus. ----REFERENCE VALUE---- Vaccinated: Positive (>=1.1 AI) Unvaccinated: Negative (<=0.8 AI) Mumps IgG Antibody Index 1.6 08/19/2017 9:58 AM [facility] Rubella Ab, IgG, S Positive 08/19/2017 9:58 AM [facility] Comment: Results suggest response to immunization or prior exposure to the virus. ----REFERENCE VALUE---- Vaccinated: Positive (>=1.0 AI) Unvaccinated: Negative (<=0.7 AI) Rubella IgG Antibody 2.0 08/19/2017 9:58 AM [facility] Varicella-Zoster Ab, Positive 08/19/2017 9:58 AM RIPENING ROOM OPERATOR [facility] IgG, S SYSTEM- [facility] Comment: Results suggest response to immunization or prior exposure to the virus. ----REFERENCE VALUE---- Vaccinated: Positive (>=1.1 AI) Unvaccinated: Negative (<=0.8 AI) Varicella IgG Antibody 2.9 08/19/2017 9:58 A M RIPENING ROOM OPERATOR [facility] Specimen Anatomical Collection Method Collection Time Receive d Time (Source) Location / / Volume Laterality Blood (Blood, 08/18/2017 2:48 PM 08/18/19 18 9:37 Venous) RIPENING ROOM OPERATOR PM RIPENING ROOM OPERATOR Holley Saucedo APRN, C.N.P. LAB MICROBIOLOGY - BLOO D ORDERABLES Performing Organization Address City/State/ZIP Code Phon e Number [facility] [address] [place] [address], [place] [address] [facility] documented in this encounter Visit Diagnoses Diagnosis Need Vaccine Immunization Influenza - Pr imary General Medical Examination Adult Pain Hip Left Pain Hip Left documented in this encounter Additional Health Concerns Assessment Noted Time PHQ-9 Depression Total Score: 17 07/12/2017 10:[address] documented as of this encounter Care Teams Intern Relationship Specialty Start Date End Date Holley Saucedo APRN, C.N.P. PCP - General 01/27/17 12/09/17 documented as of this encounter
--- OUTSIDE RECORDS SUMMARY | 2022-07-20 10:52 | XMS_ITS | Encounter Summary ---
:1995 Author Organization [facility] Address [address] [place] [address] Care Team Providers Name Role Phone Holley Saucedo APRN, C.N.P. Primary Care Provider Reason for Visit Reason Comments Other toothache since Tuesday Encounter Details Date Type Department Care Team Description 08/31/2017 Office Visit Department of Family Chandni Urbina, [place] uralgia Trigeminal (Primary Dx); Medicine, [place] TOBI, C.N.PGonzalo, Bipo lar II Disorder (HCC) Clinic, in [place] [address] [phone] Social History Tobacco Use Types Packs/Day [...] How often do you attend buddhist or congregation Never 10/23/2020 services? 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 documented as of this encounter Last Filed Vital Signs Vital Sign Reading Time Taken Comments Blood Pressure 92/52 08/31/2017 4:59 PM TIME STUDY TECHNICIAN Pulse 82 08/31/2017 4:59 PM TIME STUDY TECHNICIAN Temperature 36.8 ??C (98.2 ??F) 08/31/2017 4:59 PM TIME STUDY TECHNICIAN Respiratory Rate 20 08/31/2017 4:59 PM TIME STUDY TECHNICIAN Oxygen Saturation - - Inhaled Oxygen Concentration - - Weight 103 kg (227 lb 8.2 oz) 08/31/2017 4:59 PM TIME STUDY TECHNICIAN Height 167.6 cm (5' 6) 08/31/2017 4:59 PM TIME STUDY TECHNICIAN Body Mass Index 36.72 08/31/2017 4:59 PM TIME STUDY TECHNICIAN documented in this encounter Patient Instructions Patient InstructionsChandni Urbina APRN, D.N.P., C.N.P. - 08/31/2017 5:00 PM CST Gabapentin: Take one dose tonight (300mg), then tomorrow 300mg twice/day for 3 days, then 300mg three times a day until pain goes away Medrol Dose Pack: Instructions as prescribed on the package STUDY TECHNICIAN documented in this encounter Progress Notes Chandni [...] tablet Take 10 mg by mouth. ??? prenat.vits,hernandez,mno-txxq-jofsb ( VITAMIN) tablet Take 1 tablet by [...] the content. Chandni Urbina APRN, D.N.P., C.N.P. STUDY TECHNICIAN documented in this encounter Plan of Treatment Not on filedocumented as of this encounter Visit Diagnoses Diagnosis Neuralgia Trigeminal - Primary Bipolar II Disorder (HCC) documented in this encounter Additional Health Concerns Assessment Noted Time PHQ-9 Depression Total Score: 9 08/30/2017 4:00 PM TIME STUDY TECHNICIAN documented as of this encounter Care Teams Transport Technician Relationship Specialty Start Date End Date Holley Saucedo APRN, C.N.P. PCP - General 01/27/17 12/09/17 documented as of this encounter
--- OUTSIDE RECORDS SUMMARY | 2022-07-20 10:52 | XMS_ITS | Encounter Summary ---
:1995 Author Organization [facility] Address [address] [place] [address] Care Team Providers Name Role Phone Holley Arreola APRN, C.N.P. Primary Care Provider [phone] Encounter Details Date Type Department Care Team Description 04/05/2017 Hospital Encounter [facility]X [facility] Francisca Arreola APRN, C.N.P. [address] [place], [place] [address] (Wo rk) Social History [...] How often do you attend samaritan or shinto Never 10/23/2020 services? 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 HISTORY OF PRESENT ILLNESS aCrly is a very pleasant 22-year-old female who [...] Ordered: OV Est Pt Level 3 - 57732 - 15 min Depression Major Recurrent Mild Her PHQ-9 score was 16 today. See #3 below. Ordered: OV Est Pt Level 3 - 11769 - 15 min Mood Disorder NOS I ordered a referral to behavioral health at [facility] for further evaluation related to her increased mood swings/anger management. We discussed the use of a behavioral health therapist in the future for symptom management. She was instructed to contact the clinic with worsening or no improvement in symptoms. All questions were answered. She left in no acute distress. Ordered: OV Est Pt Level 3 - 11091 - 15 min Orders: Consult to Integrated Behavioral Health - Diagnostic Medication Electronically Signed By: HOLLEY ARREOLA CNP, RN On: 04/05/2017 12:07 PM Source: [facility] Document Id: [id number] documented in this encounter Miscellaneous Notes Miscellaneous [...] DIA LPN - 04/05/2017 14:39 CDT [facility] Document Id: [id number] CDT!11 Miscellaneous - Chrissy Dia L.P.NGonzalo - [...] DIA LPN - 04/05/2017 14:38 CDT Source: [facility] Document Id: [id number] CDT!13 Miscellaneous - Arielle Harris L.P.N. 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 Intake/History Adult Steel Post Installer Supervisor Intake/History Entered On: 04/05/2017 11:26 CDT Performed [...] 04/05/2017 11:23 CDT General Info Languages : Turkmen Is Patient Female and [...] HARRIS LPN - 04/05/2017 11:23 CDT Source: [facility] Document Id: [id number] CDT!45 documented in this encounter Plan of Treatment Not on filedocumented as of this encounter Visit Diagnoses Not on filedocumented in this encounter Additional Health Concerns Assessment Noted Time PHQ-9 Depression Total Score: 04/05/2017 2:38 PM CD T documented as of this encounter Care Teams Seismograph Operator Relationship Specialty Start Date End Date Holley Arreola APRN, C.N.P. PCP - General 01/27/17 12/09/17 documented as of this encounter
--- OUTSIDE RECORDS SUMMARY | 2022-07-20 10:52 | XMS_ITS | Encounter Summary ---
:1995 Author Organization [facility] Address [address] [place] [address] Care Team Providers Name Role Phone Holley Saucedo APRN C.N.P. Primary Care Provider [phone] Reason for Visit Reason Comments Communication Encounter Details Date Type Department Care Team Description 08/16/2017 Clinical Communication Department of Zuly Au [facility] Orthopedic Surgery in Vandana Baker P.T. 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 - 08/16/2017 2:58 PM MANAGER REPORTING Holley, We have worked in PT to address L hip pain/snapping. It has gotten better but still continues to be very limiting for the patient. I think either a referral to orthopedics or an MRI of the hip/pelvis would be appropriate. PT will be on hold. Thank you, Vandana GER REPORTING documented in this encounter Plan of Treatment Not on filedocumented as of this encounter Visit Diagnoses Not on filedocumented in this encounter Additional Health Concerns Assessment Noted Time PHQ-9 Depression Total Score: 17 07/12/2017 10:[address] documented as of this encounter Care Teams Linux Support Engineer Relationship Specialty Start Date End Date Holley Saucedo, FAMILY PROGRAM SPECIALIST, C.N.P. PCP - General 01/27/17 12/09/17 documented as of this encounter
--- OUTSIDE RECORDS SUMMARY | 2022-07-20 10:52 | XMS_ITS | Encounter Summary ---
:1995 Author Organization [facility] Address [address] [place] [address] Care Team Providers Name Role Phone Holley Saucedo APRN, C.NGonzaloPGonzalo Primary Care Provider [phone] Reason for Visit Reason Comments Other cold symptoms Encounter Details Date Type Department Care Team Description 08/12/2017 Office Visit Department of Family Cj Bronchi tis (Primary Dx); Medicine, Index Beny Wiley Asthma Moderate Persistent (HCC) Clinic, in [address] [phone] Social History Tobacco Use Types Packs/Day [...] How often do you attend orthodox or faith Never 10/23/2020 services? Do you [...] Date Recorded Female 08/12/2017 10:51 AM DIE EQUIPMENT OPERATOR documented as of this encounter Last Filed Vital Signs Vital Sign Reading Time Taken Comments Blood Pressure 120/72 08/12/2017 11:23 AM DIE EQUIPMENT OPERATOR Pulse 72 08/12/2017 11:23 AM DIE EQUIPMENT OPERATOR Temperature 36.6 ??C (97.9 ??F) 08/12/2017 11:23 AM DIE EQUIPMENT OPERATOR Respiratory Rate - - Oxygen Saturation - - Inhaled Oxygen Concentration - - Weight 99.6 kg (219 lb 9.3 oz) 08/12/2017 11:23 AM DIE EQUIPMENT OPERATOR Height 166 cm (5' 5.35) 08/12/2017 11:23 AM DIE EQUIPMENT OPERATOR Body Mass Index 36.14 08/12/2017 11:23 AM DIE EQUIPMENT OPERATOR documented in this encounter Progress Notes Inez [...] package directions, Disp: 1 tablet,Rfl: 0 ??? prenat.vits,hernandez,hxv-dhjt-ubqsn ( VITAMIN) tablet, Take 1 tablet by [...] for 4 days., Normal Inez Corona M.D. EQUIPMENT OPERATOR documented in this encounter Plan of Treatment Not on filedocumented as of this encounter Visit Diagnoses Diagnosis Bronchitis - Primary Asthma Moderate Persistent (HCC) documented in this encounter Additional Health Concerns Assessment Noted Time PHQ-9 Depression Total Score: 17 07/12/2017 10:[address] documented as of this encounter Care Teams Food Service Helper Relationship Specialty Start Date End Date Holley Saucedo APRN, C.N.P. PCP - General 01/27/17 12/09/17 documented as of this encounter
--- OUTSIDE RECORDS SUMMARY | 2022-07-20 10:52 | XMS_ITS | Encounter Summary ---
:1995 Author Organization [facility] Address [address] [place] [address] Care Team Providers Name Role Phone Unavailable Primary Care Provider Unavailable Encounter Details Date Type Department Care Team Description 12/11/2016 Hospital Encounter HX [facility] Kerry López M.D. [address] [place], [place] [address] (Wo rk) Social History [...] How often do you attend hoahaoism or hinduism Never 10/23/2020 services? 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 - 12/11/2016 10:48 AM CDT Ambulatory Patient Summary [place] [place], [place] [phone] Visit Information Name: DHIRAJ LANDA [facility] Number: [id number] Current Date: 12/11/2016 10:48:48 Physicians Attending Provider: CARLEE LÓPEZ MD Primary Care Provider: AMANDA ARREOLA MOLD SANDER DHIRAJ LANDA has been given the following [...] nasal (Flonase 0.05 mg/inh nasal spray) 2 [place](s), Nasal, two times a day fluticasone-salmeterol (Advair Diskus 250 mcg-50 mcg inhalation powder) 1 puff(s), Inhalation, two times a day levonorgestrel-ethinyl estradiol (Chateal 0.15 mg-30 mcg oral tablet) 1 Tablet(s), Oral, once a day penicillin V potassium (penicillin V potassium 500 mg oral tablet) 1 Tablet(s), Oral, two times a day x 10 day(s) New Routed to [address] [address] traZODone (traZODone 50 mg oral tablet) 1 [...] if you dont have one. Go to [email or web address] and click on Create Your Account. Then, follow the directions to complete the online form. Youll be asked for your [facility] number which you can find at the top of this document. Your Goals/Additional instructions: Source: [facility] POWERCHART Document Id: [id number] Miscellaneous - Carlee López M.D. - 12/11/2016 10:48 AM CDT Ambulatory Discharge Medication List [address] [phone] Visit Information Name: SYEDADHIRAJE [facility] Number: [id number] Current Date: 12/11/2016 10:48:47 Attending Provider: CARLEE LÓPEZ MD Primary Care Provider: AMANDA ARREOLA MOLD SANDER SYEDADHIRAJ PAWEL has been given the following [...] nasal (Flonase 0.05 mg/inh nasal spray) 2 [place](s), Nasal, two times a day fluticasone-salmeterol (Advair Diskus 250 mcg-50 mcg inhalation powder) 1 puff(s), Inhalation, two times a day levonorgestrel-ethinyl estradiol (Chateal 0.15 mg-30 mcg oral tablet) 1 Tablet(s), Oral, once a day penicillin V potassium (penicillin V potassium 500 mg oral tablet) 1 Tablet(s), Oral, two times a day x 10 day(s) New Routed to [address] [address] traZODone (traZODone 50 mg oral [...] MD Signed On:11-DEC-2016 10:48:45 Additional Information: Source: [facility] POWERCHART Document Id: [id number] Miscellaneous - Carlee López M.D. - 12/11/2016 10:44 AM CDT Work Excuse December 11, 2016 DHIRAJLOTUS CAROSTEPHKYLE [address] [facility] [address] [place] [address] Dear DHIRAJ LANDA, You were examined in [...] date: 12-13-2016 Notes: _ Sincerely, CARLEE LÓPEZ [id number] [place] [address] Electronic Signature Electronically Signed By: CARLEE LÓPEZ MD On: December 11, 2016 This document has images extracted. Source: [facility] POKKT Document Id: [id number] Electronically signed by Stuart [facility] [employer] [id number] at 01/25/2017 12:41 PM CDT Miscellaneous - Janet Ramon, L.P.N. 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 : No RADHAPOOJAJACKWero [facility] - 12/11/2016 10:05 CDT Subjective Pain Symptoms : Yes JACK RAMONWero [facility] - 12/11/2016 10:05 CDT Pain Scale Pain Scale Verbal 0-10 : Open JANET RAMON Ki [facility] - 12/11/2016 10:05 CDT Pain Pain Assessment Grid Pain 1 Location : Throat MARJ RAMONSAMANTHA [facility] - 12/11/2016 10:05 CDT Dependent Habits Exposure to Tobacco Smoke : Care provider denies smoking in home, Other: former smoker Smoking Status : Former smoker Tobacco 2A : Yes Tobacco Use/Currently Using : No Tobacco Use/Last 30 Days : No Tobacco Use/Last 12 months : No Tobacco Last Use/Month : July Tobacco Last Use/Year : 2015 MARJ RAMONSAMANTHA [facility] - 12/11/2016 10:05 CDT Caffeine Use Grid Caffeine Use : Current Type : Soft drinks Frequency : Occasionally JANET RAMON [facility] - 12/11/2016 10:05 CDT Recreational Drug Use Grid Drug Use : None RADHAPOOJA JANET D [facility] - 12/11/2016 10:05 CDT Source: [facility]OKKT Document Id: [id number] CDT!46 documented in this encounter Plan of Treatment Not on filedocumented as of this encounter Procedures Procedure Name Priority Date/Time Associated Diagnosis Comme nts RAPID STREP A Routine 12/11/2016 10:11 AM Results for this SCREEN CDT procedure are i n the results section. documented in this encounter Results (ABNORMAL) Rapid Strep A Screen (12/11/2016 10:11 AM CDT) [facility] Method Time Signature HXStrep A (POSITIVE) POWERCHART Screen Rapid HXFinal Positive for POWERCHART Group A Strep by rapid screen. Specimen (Source) Anatomical Collection Method Collection Time Re ceived Time Location / / Volume Laterality Throat 12/11/2016 10:11 AM CDT Carlee Klingberg M.D. LAB MICROBIOLOGY - GENERAL O RDERABLES Performing Organization Address City/State/ZIP Code Phon e Number POWERCHART documented in this encounter Visit Diagnoses Not on filedocumented in this encounter Additional Health Concerns Assessment Noted Time PHQ-9 Depression Total Score: 14 11/16/2016 2:30 PM CD T documented as of this encounter
--- OUTSIDE RECORDS SUMMARY | 2022-07-20 10:52 | XMS_ITS | Encounter Summary ---
:1995 Author Organization [facility] Address [address] [place] [address] Care Team Providers Name Role Phone Holley Saucedo APRN, C.N.P. Primary Care Provider [phone] Reason for Visit Physical Therapy (Routine) - Canceled Specialty Diagnoses / Procedures Referred By Contact Refer red To Contact Diagnoses Pain Hip Left Holley Saucedo APRN, [facility] Procedures PT Ongoing treatment C.N.P. [address] [place] [address] Referral ID Status Reason Start Date Expiration Date Visits V isits Requested Authorized [id number] Canceled 06/13/2017 12/10/2017 12 99 Encounter Details Date Type Department Care Team Description 06/28/2017 Clinical Support Department of Aspen Saucedo APRN, C.N.P. [address] [place] [address] Pain Hip Left Rehabilitation Services Vandana Au, P.T. in [address] [phone] Social History Tobacco Use Types Packs/Day Years [...] How often do you attend cheondoism or episcopalian Never 10/23/2020 services? 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 - 06/28/2017 10:00 AM CST Physical [...] have some difficulty withthis. 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 PCP - General 01/27/17 12/09/17 documented as of this encounter
--- OUTSIDE RECORDS SUMMARY | 2022-07-20 10:52 | XMS_ITS | Encounter Summary ---
:1995 Author Organization [facility] Address [address] [place] [address] Care Team Providers Name Role Phone Holley Saucedo APRN, C.N.P. Primary Care Provider Reason for Visit Physical Therapy (Routine) - Canceled Specialty Diagnoses / Procedures Referred By Contact Refer red To Contact Diagnoses Pain Hip Left Holley Saucedo APRN, [facility] Region Procedures PT Ongoing treatment C.N.P. [address] [place] [address] Referral ID Status Reason Start Date Expiration Date Visits V isits Requested Authorized [id number] Canceled 06/13/2017 12/10/2017 12 99 Encounter Details Date Type Department Care Team Description 07/12/2017 Clinical Support Department of Aspen Saucedo APRN, C.N.P. [address] [place] [address] Pain Hip Left Rehabilitation Services Vandana Au, P.T. in [address] [phone] Social History Tobacco Use Types Packs/Day Years [...] How often do you attend catholic or presybeterian Never 10/23/2020 services? 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 - 07/12/2017 10:00 AM CST Physical Therapy Outpatient Treatment Note PROGRESS NOTE SUBJECTIVE Visit Count since Last G-Code: 4 Episode Visit Count: 4 Visit Diagnosis: #1 Pain Hip Left Referring Provider: Kenzie Armtsrong* Subjective: Patient reports she has been doing [...] Time (min): 30 min Functional G-code Worksheet K DRIVER HELPER documented in this encounter Plan of Treatment Not on filedocumented as of this encounter Visit Diagnoses Diagnosis Pain Hip Left documented in this encounter Additional Health Concerns Assessment Noted Time PHQ-9 Depression Total Score: 17 07/12/2017 10:00 AM C documented as of this encounter Care Teams Senior Technical Manager Relationship Specialty Start Date End Date Holley Saucedo APRN, C.N.P. PCP - General 01/27/17 12/09/17 documented as of this encounter
--- OUTSIDE RECORDS SUMMARY | 2022-07-20 10:52 | XMS_ITS | Encounter Summary ---
:1995 Author Organization [facility] Address [address] [place] [address] Care Team Providers Name Role Phone Holley Arreola APRN, C.N.P. Primary Care Provider [phone] Encounter Details Date Type Department Care Team Description 06/13/2017 - Hospital Encounter HX [facility] Holley Arreola 06/24/2017 CHRISTOPHER Baker APRN, C.N.P. [address] [place], [place] [address] Social History Tobacco Use [...] How often do you attend presybeterian or lutheran Never 10/23/2020 services? 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 - 06/13/2017 4:12 PM CDT REHAB SNAPSHOT [...] hip pain. We also child working in [employer] in this also made her have less [...] days of work without pain or discomfort. 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 Document Id: [id number] documented in this encounter Miscellaneous Notes Miscellaneous - Holley Arreola C.N.P., R.N. - 06/15/2017 8:16 PM CDT Provider Letter June 15, 2017 DHIRAJ LANDA [address] [place] [phone] Dear DHIRAJ LANDA, To whom it may concern: Please allow Dhiraj Landa to sit on a stool/chair related to her work duties to alleviate theneed for squatting or repetitive bending until further notice. Sincerely, HOLLEY ARREOLA [address] [place] [phone] Electronic Signature Electronically Signed By: HOLLEY ARREOLA CNP, RN On: June 15, 2017 This document has images extracted. Source: [facility] [employer] Document Id: [id number] Miscellaneous - Conversion, Historical Provider Ser - 06/15/2017 11:02 AM CDT Coding Summary-Paper Based CODING DATE: 06/15/2017 FINAL [facility] STATUS: Still Patient/Expected to Rtn [facility] PAYOR: Medicaid ADMIT [...] AL[place] Date Saved: 06/15/2017 11:02 am [facility] Document Id: [id number] Miscellaneous - Jimmy Wade P.T. - 06/14/2017 1:51 PM CDT *General Message Document Contains Addenda Addendum by DORIAN DAVENPORT LPN on June 16, 2017 13:28:57 CDT Printed letter and placed at front end specialist for patient to medicinal plant picker. Attempted to leave VM on patient's phone, mailbox is full. Addendum by HOLLEY ARREOLA CNP, RN on June 15, 2017 20:19:24 CDT From: HOLLEY ARREOLA CNP, RN To: [place] Family Medicine Nurse Mitesh; Sent: 06/15/2017 20:19:24 [...] restrictions and contact patient to fax or medicinal plant picker. Thanks! From: JIMMY WADE DPT To: [...] her or call her so she can medicinal plant picker the restrictions at our next session. Thanks! Jimmy Source: [facility] [employer] Document Id: [id number] documented in this encounter Plan of Treatment Not on filedocumented as of this encounter Visit Diagnoses Not on filedocumented in this encounter Additional Health Concerns Assessment Noted Time PHQ-9 Depression Total Score: 18 04/05/2017 2:38 PM CD T documented as of this encounter Care Teams Blind Hooker Relationship Specialty Start Date End Date Holley Arreola, CLAIMS CORRESPONDENCE CLERK, C.N.P. PCP - General 01/27/17 12/09/17 documented as of this encounter
--- OUTSIDE RECORDS SUMMARY | 2022-07-20 10:53 | XMS_ITS | Encounter Summary ---
:1995 Author Organization [facility] Address [address] [place] [address] Care Team Providers Name Role Phone Unavailable Primary Care Provider Unavailable Encounter Details Date Type Department Care Team Description 11/18/2014 Hospital Encounter [facility]X [facility] Karlie Mark M.D. [address] [place], [place] [address] (Wo rk) Social History [...] How often do you attend scientologist or mandaeism Never 10/23/2020 services? 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 - 11/18/2014 12:16 PM CDT [id number] Patient is coming back for followup. She [...] OLMEDO MD On: 11/25/2014 10:33 AM Source: [facility] [employer] Document Id: [id number] documented in this encounter Miscellaneous Notes Miscellaneous - Teresa Parkinson, LGonzaloP.N. - 11/18/2014 12:25 PM CDT Adult Range Mechanic Intake/History Adult Range Mechanic Intake/History Entered On: 11/18/2014 12:29 CDT Performed [...] 11/18/2014 12:25 CDT General Info Languages : Bengali Is Patient [...] CDT Alcohol Use : No TERESA PARKINSON BUSINESS APPLICATIONS ANALYST - 11/18/2014 12:25 CDT Caffeine Use Grid [...] PARKINSON LPN - 11/18/2014 12:25 CDT Source: [employer] Document Id: [id number] CDT!44 documented in this encounter Plan of Treatment Not on filedocumented as of this encounter Visit Diagnoses Not on filedocumented in this encounter
--- OUTSIDE RECORDS SUMMARY | 2022-07-20 10:53 | XMS_ITS | Encounter Summary ---
:1995 Author Organization [facility] Address [address] [place] [address] Care Team Providers Name Role Phone Unavailable Primary Care Provider Unavailable Encounter Details Date Type Department Care Team Description 04/25/2015 Hospital Encounter HX [facility] Maureen Lua, Ramos LÓPEZ, C.N.P. [address] [place] [phone] (Wo rk) Social History Tobacco Use [...] How often do you attend confucianism or yarsani Never 10/23/2020 services? 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 Electronically Signed By: MAUREEN SINGER WEBFOCUS DEVELOPER On: 04/25/2015 03:06 PM Source: [facility] [employer]ART Document Id: [id number] documented in this encounter Miscellaneous Notes Miscellaneous - Maureen Singer, RYamileth. - 04/25/2015 4:06 PM CDT From: MAUREEN SINGER WEBFOCUS DEVELOPER Sent: 04/25/2015 16:06:26 CDT patient aware of hcg results and wet prep. she will try baking soda soaks and OTC remedies as needed. Source: [facility] POWERCHART Document Id: [id number] Electronically signed by Stuart, [facility] President And Chief Commercial Officer [id number] at 01/10/2017 5:16 PM CDT Miscellaneous - Nena Ocampo L.P.N. - 04/25/2015 2:40 PM CDT Adult Complex Director Intake/History Adult Complex Director Intake/History Entered On: 04/25/2015 14:42 CDT Performed [...] Information Given By : Patient Languages : Salvadorean Is Patient Female and 13-50 no hysterectomy [...] OCAMPO LPN - 04/25/2015 14:40 CDT Source: [facility] [employer] Document Id: [id number] CDT!37 documented in this encounter Plan of [...]
--- OUTSIDE RECORDS SUMMARY | 2022-07-20 10:53 | XMS_ITS | Encounter Summary ---
:[address] [facility] Address [address] [place] [address] Care Team Providers Name Role Phone Unavailable Primary Care Provider Unavailable Encounter Details Date Type Department Care Team Description 10/20/2015 Hospital Encounter [facility] Kimberley Brown M.D. [address], [place] [address] (Wo rk) Social History [...] How often do you attend episcopalian or rastafari Never 10/23/2020 services? 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 - 10/20/2015 10:21 AM CST [id number] CHIEF COMPLAINT/REASON FOR VISIT Dyspnea. 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 PAST MEDICAL/SURGICAL HISTORY Moderate persistent asthma. [...] POLANCO MD On: 10/22/2015 04:54 PM Source: [facility] [employer] Document Id: [id number] IRONER documented in this encounter Procedure Notes Jeanette Dennison, L.P.N. - 10/20/2015 11:17 AM CST Peak Flow POC Peak Flow POC Entered On: 10/20/2015 11:17 FLAT IRONER Performed On: 10/20/2015 11:17 FLAT IRONER by JEANETTE DENNISON Peak Flow POC Peak Flow Post-treatment POC #1 : 380 L/sec Treatment Delivery Device : Nebulizer JEANETTE DENNISON - 10/20/2015 11:32 FLAT IRONER Peak Flow POC Initial : 350 L/sec Peak Flow POC #2 : 400 L/sec Peak Flow POC #3 : 360 L/sec Patient Effort Peak Flow POC : Fair JEANETTE DENNISON - 10/20/2015 11:17 FLAT IRONER Source: [facility] [employer] Document Id: [id number] FLAT IRONER!8 IRONER documented in this encounter Miscellaneous Notes Miscellaneous - Radha Polanco M.D. - 10/20/2015 11:34 AM CST Work Excuse October 20, 2015 CARLY LANDA [address] [facility] [address] Dear CARLY LANDA, You were examined in [...] 2015 Notes: _ Sincerely, RADHA POLANCO [address] [place] [address] Electronic Signature Electronically Signed By: RADHA POLANCO MD On: October 20, 2015 This document has images extracted. Source: [facility] [employer]OWERCHART Document Id: [id number] Electronically signed by Conversion, [facility] Testing And Regulating Technician [id number] at 01/08/2017 5:40 PM CDT Miscellaneous - Jennifer Medellin, L.P.N. - 10/20/2015 10:34 AM CST Adult Fur Cleaner Intake/History Adult Fur Cleaner Intake/History Entered On: 10/20/2015 10:40 FLAT IRONER Performed On: 10/20/2015 10:34 FLAT IRONER by JENNIFER MEDELLIN LPN Intake Chief Complaint [...] Other: JENNIFER Melara LPN - 10/20/2015 10:34 FLAT IRONER General Info Information Given By : Patient Languages : Lithuanian Is Patient Female and 13-50 no hysterectomy : Yes Status : Patient denies Are you ? : No JENNIFER MEDELLIN LPN - 10/20/2015 10:34 FLAT IRONER Subjective Pain Symptoms : No JENNIFER MEDELLIN LPN - 10/20/2015 10:34 FLAT IRONER Dependent Habits Exposure to Tobacco Smoke : Care provider denies smoking in home, Other: former smoker Smoking Status : Former smoker Tobacco 2A : Yes Tobacco Use/Currently Using : No Tobacco Use/Last 30 Days : No Tobacco Use/Last 12 months : No JENNIFER MEDELLIN DATA WAREHOUSING ENGINEER - 10/20/2015 10:34 FLAT IRONER Caffeine Use Grid Caffeine Use : Current Type : Soft drinks Frequency : Occasionally JENNIFER MEDELLIN LPN - 10/20/2015 10:34 FLAT IRONER Recreational Drug Use Grid Drug Use : None JENNIFER MEDELLIN DATA WAREHOUSING ENGINEER - 10/20/2015 10:34 FLAT IRONER Source: [facility] [employer] Document Id: [id number] FLAT IRONER!40 IRONER documented in this encounter Plan of Treatment Not on filedocumented as of this encounter Visit Diagnoses Not on filedocumented in this encounter
--- OUTSIDE RECORDS SUMMARY | 2022-07-20 10:53 | XMS_ITS | Encounter Summary ---
:1995 Author Organization [facility] Address [address] [place] [address] Care Team Providers Name Role Phone Unavailable Primary Care Provider Unavailable Encounter Details Date Type Department Care Team Description 04/05/2016 Hospital Encounter HX [facility] [place] Francisca Arreola, BRASS RECLAIMER, C.N.P. [address] [place], [place] [address] (Wo rk) Social History [...] How often do you attend orthodox or baptism Never 10/23/2020 services? 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 Ordered: Chlamydia Gonorrhoeae [facility] 70-70 - [id number] General Medical Exam Adult (GME) A Pap smear was completed today. We will send the results through the portal once completed. We discussed screening related to a lipid panel and fasting glucose. She is not fasting today. We will complete fasting lab work in one year. Age appropriate anticipatory guidance was provided. Ordered: OV Est Pt Prev Svc 18-86 - [id number] Need Vaccine (IN) NOS She received her first HPV injection today. She was instructed to return in 2 months for her secondinjection. All questions were answered. She left in no acute distress. Ordered: OV Est Pt Prev Svc 18-84 - [id number] Orders: Thin Prep Screen with HPV Reflex-[place] [id number] Electronically Signed By: HOLLEY ARREOLA SALES PROCESS MANAGER On: 04/05/2016 06:57 PM Source: [employer] Document Id: [id number] documented in this encounter Procedure Notes Consuelo [...] DIA LPN - 05/26/2016 9:43 CDT Source: [employer] Document Id: [id number] CDT!10 documented in this encounter Miscellaneous Notes Miscellaneous - Tami Ceballos - 05/20/2016 10:40 AM CDT Quality Measure / ACT update Document Contains Addenda Addendum by CONSUELO DIA LPN on May 26, 2016 10:06:11 CDT From: CONSUELO DIA LPN ([place] [facility] Medicine Nurse Mitesh) To: TAMI CEBALLOS; Sent: 05/26/2016 10:06:11 CDT Subject: RE: Quality Measure / ACT update talked with pt- ACT was done and updated. From: TAMI CEBALLOS To: [place] Family Medicine Nurse Sagastume; Sent: 05/20/2016 10:40:35 CDT Subject: Quality Measure / ACT update This patient has been screened for Quality Measures and is due for a ACT update. Please reach out tothe patient to update the ACT and emergency visits/hosiptal stays. Last ACT datet: 10/20/2015 Score 16 Last office visit 03/19/2016 Thank you for your help. [employer] Source: [employer] Document Id: [id number] Miscellaneous - Holley Arreola, RGonzaloN. - 04/13/2016 3:36 PM CDT Normal Results Letter April 13, 2016 DHIRAJ LANDA [address] [facility] [address] Dear DHIRAJ LANDA, The results of your recent Pap smear were negative. If you have questions or concerns, please do nothesitate to call our office. Result Name Current Result Spec Desc-[place] See Comment 04/05/2016 ThPrep Scrn Accn-[place] [id number] 04/05/2016 ThPrep Scrn Cyto-[place] See Comment 04/05/2016 ThPrep Scrn Fnl-[place] See Comment 04/05/2016 Sincerely, HOLLEY ARREOLA [address] [address] Electronic Signature Electronically Signed By: HOLLEY ARREOLA SALES PROCESS MANAGER On: April 13, 2016 This document has images extracted. Source: [employer] Document Id: [id number] Miscellaneous - Holley Arreola, R.NGonzalo - 04/08/2016 4:40 PM CDT Normal Results Letter April 08, 2016 DHIRAJ LANDA [address] [place] [address] Dear DHIRAJ LANDA, I am pleased to report that your results from the following diagnostic test(s) are normal. Please follow up with us as we discussed during your visit or sooner if you have any concerns. If you have questions or concerns, please do not hesitate to call our office. Result Name Current Result Normal Range C trach Amp Src-[place] urine 04/05/2016 C trach Amp RNA-[place] Negative 04/05/2016 Negative - N gonor Amp DNA-[place] Negative 04/05/2016 Negative - N gonor Amp Src-[place] urine 04/05/2016 Sincerely, HOLLEY ARREOLA [id number] [place] [address] Electronic Signature Electronically Signed By: HOLLEY ARREOLA SALES PROCESS MANAGER On: April 08, 2016 This document has images extracted. Source: [facility] [employer] Document Id: [id number] Ramona - Dorian Davenport L.P.N. - 04/05/2016 4:44 PM CDT MnV[facility] Eligibility Mn[facility] Eligibility Entered On: 04/05/2016 16:44 CDT Performed On: 04/05/2016 16:44 CDT by DORIAN DAVENPORT LPN [facility] Eligibility Provided MnVFC eligibility information : No DORIAN DAVENPORT LPN - 04/05/2016 16:44 CDT Source: [facility] [employer] Document Id: [id number] CDT!3 Marco Antonioaneous - Dorian Davenport L.P.N. 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 Intake/History Entered On: 04/05/2016 16:30 CDT Performed [...] Preferred Communication Mode : Verbal Languages : Pashto Is Patient Female and [...] DAVENPORT LPN - 04/05/2016 16:28 CDT Source: [facility] [employer] Document Id: [id number] CDT!44 documented in this encounter Plan of [...] athologist Signature HXN gonor Amp Negative POWERCHART DNA-[place] Specimen (Source) Anatomical Collection Method Collection Time Re ceived Time Location / / Volume Laterality 04/05/2016 5:14 PM CDT Narrative POWERCHART - 04/08/2016 3:51 PM CDT ADDITIONAL INFORMATION This report is intended for use in clini hernandez monitoring and management of patients. It is not in tended for use in medical-legal applications. Test Performed by: [facility] - [address] [address] Kiln Stoker: Cisco Pantoja II, M.D., Ph.D. Kenzie Armstrong APRNP. LAB HISTORICAL ORDERS Performing Organization Address City/State/ZIP Code Phon e Number POWERCHART HX-N gonor Amp Src (04/05/2016 5:14 PM CDT) P athologist Signature HXN gonor Amp urine POWERCHART Src-[place] Specimen (Source) Anatomical Collection Method Collection Time Re ceived Time Location / / Volume Laterality 04/05/2016 5:14 PM CDT Liselle M Lewis BRASS RECLAIMER, C.N.P. LAB HISTORICAL ORDERS Performing Organization Address City/State/ZIP Code Phon e Number POWERCHART HX-C trach Amp RNA (04/05/2016 5:14 PM CDT) [facility] Method Time Signature Chlamydia Negative POWERCHART [...] C.N.P. LAB HISTORICAL ORDERS Performing Organization Address City/[facility]/ZIP Code Phon e Number POWERCHART Pathology ThinPrep Screen HPV Reflex (04/05/2016 4:47 PM CDT) [facility] Method Time Signature Interpretation [id number] POWERCHART HXThPrep Scrn See Comment POWERCHART Fnl-[place] Comment: A. ??ThinPrep Pap Test Screen (Cervical/ Endocervical HPV Reflex): Satisfactory for evaluation. Negative for intraepithelial lesion or m alignancy. Fungal organisms morphologically consist ent with Veronica species HXThPrep Scrn Cyto-[place] See Comment KAYLA RCHART Comment: Report electronically signed by KAT Cifuentes(ASCP) 04/13/2016 08:18 Interpreted by: KAT Cifuentes(ASCP) [facility] See Comment POWERCHART Comment: A. ??ThinPrep Pap Test Screen (Cervical/ Endocervical HPV Reflex): Received clear specimen in ThinPrep vial . Test Performed by: [place] [address] Kiln Stoker: Cisco Pantoja II, M.D., Ph.D. Specimen (Source) Anatomical Collection Method Collection Time Re ceived Time Location / / Volume Laterality Cervix/Endocervix 04/05/2016 4:47 PM CDT Holley Arreola APRN, C.N.P. LAB PAP PATHDX ORDERABL ES Performing Organization Address City/State/ZIP Code Phon e Number POWERCHART documented in this encounter Visit Diagnoses Not on filedocumented in this encounter
--- OUTSIDE RECORDS SUMMARY | 2022-07-20 10:53 | XMS_ITS | Encounter Summary ---
:1995 Author Organization [facility] Address [address] [place] [address] Care Team Providers Name Role Phone Unavailable Primary Care Provider Unavailable Encounter Details Date Type Department Care Team Description 08/23/2016 Hospital Encounter HX [facility] [place] Francisca Arreola, BUSINESS DEVELOPMENT OFFICER, C.N.P. [address] [place], [place] [address] (Wo rk) Social History [...] How often do you attend hoahaoism or christianity Never 10/23/2020 services? 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 [facility] 15, 2016 related [...] Ordered: OV Est Pt Level 3 - 52931 - 15 min Pain Ear L See #1. Ordered: OV Est Pt Level 3 - 25045 - 15 min Sore Throat (ST) NOS See #1. All questions were answered. She left in no acute distress. Ordered: OV Est Pt Level 3 - 60078 - 15 min Electronically Signed By: HOLLEY ARREOLA CARD SETTER On: 08/23/2016 10:33 AM Source: [facility] POWERCHART Document Id: [id number] STAPLER documented in this encounter Miscellaneous Notes Telephone Encounter - Conversion, Historical Provider Ser - 08/30/2016 10:05 AM CST *Phone Message Document Contains Addenda Addendum by TATI VOGT LPN on August 30, 2016 15:18:12 BOW STAPLER Patient aware of the below information. Addendum by HOLLEY ARREOLA CARD SETTER on August 30, 2016 14:54:25 BOW STAPLER From: HOLLEY ARREOLA CARD SETTER To: [facility] Medicine Nurse [place]; Sent: 08/30/2016 14:54:25 BOW STAPLER Subject: RE: *Phone Message I refilled script of Augmentin for twice daily for 3 more days. Thanks! Addendum by TATI VOGT LPN on August 30, 2016 13:27:40 BOW STAPLER From: TATI VOGT LPN ([facility] Nurse [place]) To: HOLLEY ARREOLA NP; Sent: 08/30/2016 13:27:40 BOW STAPLER Subject: FW: *Phone Message Addendum by TATI VOGT LPN on August 30, 2016 13:27:30 BOW STAPLER Forwarded to Holley. From: TRENT BRICENO ([facility] Corporate Real Estate Manager) To: [facility] Nurse [place]; Sent: 08/30/2016 10:05:18 BOW STAPLER Subject: *Phone Message Caller is: ( x [...] back cell phone number ( ) Source: [facility] shopandsaveCHART Document Id: [id number] Miscellaneous - Vinnie Lyman L.P.N. 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 : No VINNIE LYMAN LPN - 08/23/2016 9:51 BOW STAPLER Subjective Pain Symptoms : Yes VINNIE LYMAN LPN - 08/23/2016 9:51 BOW STAPLER Pain Scale Pain Scale Verbal 0-10 : Open VINNIE LYMAN LPN - 08/23/2016 9:51 BOW STAPLER Pain Pain Assessment Grid Pain 1 Pain 2 Location : Head Throat Laterality : Bilateral Bilateral Intensity : 6 6 VINNIE LYMAN LPN - 08/23/2016 9:51 BOW STAPLER VINNIE LYMAN LPN - 08/23/2016 9:51 BOW STAPLER Dependent Habits Exposure to Tobacco Smoke : Care provider denies smoking in home, Other: former smoker Smoking Status : Former smoker Tobacco 2A : Yes Tobacco Use/Currently Using : No Tobacco Use/Last 30 Days : No Tobacco Use/Last 12 months : No VINNIE LYMAN LPN - 08/23/2016 9:51 BOW STAPLER Caffeine Use Grid Caffeine Use : Current Type : Soft drinks Frequency : Occasionally VINNIE LYMAN LPN - 08/23/2016 9:51 BOW STAPLER Recreational Drug Use Grid Drug Use : None VINNIE LYMAN LPN - 08/23/2016 9:51 BOW STAPLER Source: [facility] POWERCHART Document Id: [id number] BOW STAPLER!50 STAPLER documented in this encounter Plan of Treatment Not on filedocumented as of this encounter Visit Diagnoses Not on filedocumented in this encounter
--- OUTSIDE RECORDS SUMMARY | 2022-07-20 10:53 | XMS_ITS | Encounter Summary ---
:1995 Author Organization [facility] Address [address] [place] [address] Care Team Providers Name Role Phone Unavailable Primary Care Provider Unavailable Encounter Details Date Type Department Care Team Description 06/20/2015 Hospital Encounter HX [facility] [place] Francisca Arreola, TOOL PROFILING MACHINE SET UP OPERATOR, C.N.P. [address] [place], [place] [address] (Wo rk) Social History [...] How often do you attend catholic or congregation Never 10/23/2020 services? 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 - 06/20/2015 8:41 AM CST [id number] CHIEF COMPLAINT/REASON FOR VISIT General medical exam. [...] user. She has 1 daughter who is [id number] months old. She works at [employer]. 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 - 06/20/2015 9:26 AM CST Ambulatory Patient Summary [address] [id number] Visit Information Name: GORDOAJ DHIRAJ MARIE [facility] Number: [id number] Current Date: 06/20/2015 09:26:31 Physicians Attending Provider: HOLLEY ARREOLA CUSTOM FURRIER Primary Care Provider: HOLLEY ARREOLA CUSTOM FURRIER DHIRAJ LANDA has been given the following [...] nasal (Flonase 0.05 mg/inh nasal spray) 2 O'Brien(s), Nasal, two times a day fluticasone-salmeterol (Advair Diskus 250 mcg-50 mcg inhalation powder) 1 puff(s), Inhalation, two times a day medroxyPROGESTERone (Depo-Provera Contraceptive 150 mg/mL intramuscular suspension) 1 Milliliter, Intramuscular, every 90 days sertraline (Zoloft 100 mg oral tablet) 1 Tablet(s), Oral, once a day Take 0.5 tablet x 1 week and then 1 tablet daily Routed to [facility] [address] [place] [address] traZODone (traZODone 50 mg oral tablet) 1 Tablet(s), Oral, once a day Routed to [facility] [address] [address] [place] [address] Stop Taking the Following Medications: Medication list [...] of emergency. Electronically Signed By: HOLLEY ARREOLA CUSTOM FURRIER Signed On:20-JUN-2015 09:26:23 Your Allergies & Intolerances [...] you dont have one. Go to [email or web address] and click on Create Your Account. Then, follow the directions to complete the online form. Youll be asked for your [facility] number which you can find at the top of this document. Your Goals/Additional instructions: Source: [facility] POWERCHART Document Id: [id number] UM BOTTLE ASSEMBLER Miscellaneous - Holley Arreola R.N. - 06/20/2015 9:26 AM CST Ambulatory Discharge Medication List [address] [place] [id number] Visit Information Name: DHIRAJ LANDA [facility] Number: [id number] Visit Date: 06/20/2015 09:26:29 Attending Provider: HOLLEY ARREOLA NP Primary Care Provider: HOLLEY ARREOLA CUSTOM FURRIER DHIRAJ LANDA has been given the following [...] nasal (Flonase 0.05 mg/inh nasal spray) 2 O'Brien(s), Nasal, two times a day fluticasone-salmeterol (Advair Diskus 250 mcg-50 mcg inhalation powder) 1 puff(s), Inhalation, two times a day medroxyPROGESTERone (Depo-Provera Contraceptive 150 mg/mL intramuscular suspension) 1 Milliliter, Intramuscular, every 90 days sertraline (Zoloft 100 mg oral tablet) 1 Tablet(s), Oral, once a day Take 0.5 tablet x 1 week and then 1 tablet daily Routed to [facility] [address] [id number] traZODone (traZODone 50 mg oral tablet) 1 Tablet(s), Oral, once a day Routed to [address] [address] Stop Taking the Following Medications: [...] of emergency. Electronically Signed By: HOLLEY ARREOLA CUSTOM FURRIER Signed On:20-JUN-2015 09:26:23 Additional Information: Source: [facility] POWERCHART Document Id: [id number] UM BOTTLE ASSEMBLER Miscellaneous - Teresa Parkinson L.P.N. - 06/20/2015 8:47 AM CST Adult Safety Instructor Intake/History Adult Safety Instructor Intake/History Entered On: 06/20/2015 8:50 VACUUM BOTTLE ASSEMBLER Performed On: 06/20/2015 8:47 VACUUM BOTTLE ASSEMBLER by TERESA PARKINSON WORKERS COMPENSATION CLAIMS ADJUSTER Intake Chief Complaint : EST care and [...] kg/m2 TERESA PARKINSON LPN - 06/20/2015 8:47 VACUUM BOTTLE ASSEMBLER General Info Languages : Bermudian Is Patient Female and 13-50 no hysterectomy : Yes Status : Patient denies Are you ? : No TERESA PARKINSON LPN - 06/20/2015 8:47 VACUUM BOTTLE ASSEMBLER Subjective Pain Symptoms : No TERESA PARKINSON LPN - 06/20/2015 8:47 VACUUM BOTTLE ASSEMBLER Dependent Habits Tobacco Use/Currently Using : No Exposure to Tobacco Smoke : Care provider denies smoking in home, Other: former smoker Smoking Status : Former smoker Alcohol Use : No TERESA PARKINSON LPN - 06/20/2015 8:47 VACUUM BOTTLE ASSEMBLER Caffeine Use Grid Caffeine Use : Current Type : Soft drinks Frequency : Occasionally TERESA PARKINSON LPN - 06/20/2015 8:47 VACUUM BOTTLE ASSEMBLER Recreational Drug Use Grid Drug Use : None TERESA PARKINSON LPN - 06/20/2015 8:47 VACUUM BOTTLE ASSEMBLER Source: [facility] POWERCHART Document Id: [id number] VACUUM BOTTLE ASSEMBLER!39 UM BOTTLE ASSEMBLER documented in this encounter Plan of Treatment Not on filedocumented as of this encounter Visit Diagnoses Not on filedocumented in this encounter
--- OUTSIDE RECORDS SUMMARY | 2022-07-20 10:53 | XMS_ITS | Encounter Summary ---
:1995 Author Organization [facility] Address [address] [place] [address] Care Team Providers Name Role Phone Unavailable Primary Care Provider Unavailable Encounter Details Date Type Department Care Team Description 07/18/2014 Hospital En[facility] [place] Manny Diaz, N.P. 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 - 07/18/2014 2:23 PM CST [id number] CHIEF COMPLAINT/REASON FOR VISIT Cold symptoms. Asthma [...] DIAZ NP On: 08/12/2014 05:22 PM Source: [facility] MHSDOLBEYNONRADSYS Document Id: [id number] ENTIVE MEDICINE SPECIALIST documented in this encounter Procedure Notes Jeanette Dennison L.P.N. - 07/18/2014 2:42 PM CST Asthma Control Test (12 yrs and older) Asthma Control Test (12 yrs and older) Entered On: 07/18/2014 14:42 PREVENTIVE MEDICINE SPECIALIST Performed On: 07/18/2014 14:42 PREVENTIVE MEDICINE SPECIALIST by JEANETTE DENNISON ACT Past 4 weeks [...] : 24 JEANETTE DENNISON - 07/18/2014 14:42 PREVENTIVE MEDICINE SPECIALIST Source: [facility] POWERCHART Document Id: [id number] PREVENTIVE MEDICINE SPECIALIST!8 ENTIVE MEDICINE SPECIALIST documented in this encounter Miscellaneous Notes Miscellaneous - Jeanette Dennison LGonzaloP.N. - 07/18/2014 2:41 PM CST Health Assessment Health Assessment Entered On: 07/18/2014 14:41 PREVENTIVE MEDICINE SPECIALIST Performed On: 07/18/2014 14:41 PREVENTIVE MEDICINE SPECIALIST by JEANETTE DENNISON Health Assessment Complete Health Assessment Complete or Modified : Annual Health Assessment Annual Health Assessment Completed : Yes JEANETTE DENNISON - 07/18/2014 14:41 PREVENTIVE MEDICINE SPECIALIST Nutrition Nutrition Risk Factors by History Adult : None JEANETTE DENNISON - 07/18/2014 14:41 PREVENTIVE MEDICINE SPECIALIST Functional Current Daily Living Assistance : None JEANETTE DENNISON - 07/18/2014 14:41 PREVENTIVE MEDICINE SPECIALIST Dependent Habits Tobacco Use/Currently Using : No Exposure to Tobacco Smoke : Care provider denies smoking in home, Other: former smoker Smoking Status : Never smoker JEANETTE DENNISON - 07/18/2014 14:41 PREVENTIVE MEDICINE SPECIALIST Tobacco Use Grid Last Use : never JEANETTE DENNISON - 07/18/2014 14:41 PREVENTIVE MEDICINE SPECIALIST Caffeine Use Grid Caffeine Use : Current Type : Soft drinks Frequency : Occasionally JEANETTE DENNISON - 07/18/2014 14:41 PREVENTIVE MEDICINE SPECIALIST Recreational Drug Use Grid Drug Use : None JEANETTE DENNISON 07/18/2014 14:41 PREVENTIVE MEDICINE SPECIALIST Psychosocial Domestic Abuse Concerns : None Yazidi Preference : JEANETTE Ortiz - 07/18/2014 14:41 PREVENTIVE MEDICINE SPECIALIST Advance Directive Advanced Directives : No Advance Directive Additional Information : No JEANETTE DENNISON 07/18/2014 14:41 PREVENTIVE MEDICINE SPECIALIST Educ Needs Learning Style Preference Adult Grid Patient : None Family : None JEANETTE DENNISON - 07/18/2014 14:41 PREVENTIVE MEDICINE SPECIALIST Source: [facility] [employer] Document Id: [id number] PREVENTIVE MEDICINE SPECIALIST!33 ENTIVE MEDICINE SPECIALIST Miscellaneous - Jeanette Dennison L.PGonzaloN. 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 : No JEANETTE DENNISON - 07/18/2014 14:37 PREVENTIVE MEDICINE SPECIALIST Subjective Pain Symptoms : No JEANETTE DENNISON - 07/18/2014 14:37 PREVENTIVE MEDICINE SPECIALIST Dependent Habits Tobacco Use/Currently Using : No Exposure to Tobacco Smoke : Care provider denies smoking in home, Other: former smoker Smoking Status : Never smoker JEANETTE DENNISON - 07/18/2014 14:37 PREVENTIVE MEDICINE SPECIALIST Tobacco Use Grid Last Use : never JEANETTE DENNISON 07/18/2014 14:37 PREVENTIVE MEDICINE SPECIALIST Caffeine Use Grid Caffeine Use : Current Type : Soft drinks Frequency : Occasionally JEANETTE DENNISON - 07/18/2014 14:37 PREVENTIVE MEDICINE SPECIALIST Recreational Drug Use Grid Drug Use : None JEANETTE DENNISON 07/18/2014 14:37 PREVENTIVE MEDICINE SPECIALIST ID Screen Drug Resistant Organism : No Travel Within Last 21 Days : No JEANETTE DENNISON - 07/18/2014 14:37 PREVENTIVE MEDICINE SPECIALIST Source: [employer] Document Id: [id number] PREVENTIVE MEDICINE SPECIALIST!41 ENTIVE MEDICINE SPECIALIST documented in this encounter Plan of Treatment Not on filedocumented as of this encounter Visit Diagnoses Not on filedocumented in this encounter
--- OUTSIDE RECORDS SUMMARY | 2022-07-20 10:53 | XMS_ITS | Encounter Summary ---
:1995 Author Organization [facility] Address [address] [place] [address] Care Team Providers Name Role Phone Unavailable Primary Care Provider Unavailable Encounter Details Date Type Department Care Team Description 09/30/2015 Hospital Encounter HX [facility] Hunter Allison M.D. [address] [place] [phone] (Wo rk) Social History Tobacco Use Types [...] How often do you attend jewish or sabianism Never 10/23/2020 services? Do you [...] Date Recorded Female 08/12/2017 10:51 AM EDGE STRIPPER documented as of this encounter Last Filed Vital Signs Vital Sign Reading Time Taken Comments Blood Pressure 117/67 09/30/2015 1:10 PM EDGE STRIPPER Pulse 93 09/30/2015 1:10 PM EDGE STRIPPER Temperature - - Respiratory Rate 16 09/30/2015 1:10 PM EDGE STRIPPER Oxygen Saturation - - Inhaled Oxygen Concentration - - Weight 83.8 kg (184 lb 11.9 oz) 09/30/2015 1:10 PM EDGE STRIPPER Height 164 cm (5' 4.57) 09/30/2015 1:10 PM EDGE STRIPPER Body Mass Index 31.16 09/30/2015 1:10 PM EDGE STRIPPER documented in this encounter Medications at Time [...] Allison M.D. - 09/30/2015 1:00 PM CST [id number] CHIEF COMPLAINT/REASON FOR VISIT Congestion and decreased [...] continuing her inhalers and also try an [id number] decongestant if beneficial. If no improvement or [...] ALLISON MD On: 09/30/2015 02:51 PM Source: [facility] MHSDOLBEYNONRADSYS Document Id: [id number] STRIPPER documented in this encounter Procedure Notes Chrissy Dia L.P.N. - 09/30/2015 1:09 PM CST Asthma Control Test (12 yrs and older) Asthma Control Test (12 yrs and older) Entered On: 09/30/2015 13:09 EDGE STRIPPER Performed On: 09/30/2015 13:09 EDGE STRIPPER by CHRISSY DIA LPN ACT Past 4 [...] EMR CHRISSY DIA LPN - 09/30/2015 13:09 EDGE STRIPPER Source: [facility] [employer]. Document Id: [id number] EDGE STRIPPER!12 STRIPPER documented in this encounter Miscellaneous Notes Miscellaneous - [place] Allison M.D. - 09/30/2015 1:38 PM CST Ambulatory Patient Summary [address] [id number] Visit Information Name: DHIRAJ LANDA [facility] Number: [id number] Current Date: 09/30/2015 13:38:49 Physicians Attending Provider: WASHINGTON ALLISON MD Primary Care Provider: HOLLEY ARREOLA SUBSTATION OPERATOR HELPER GENERATION DHIRAJ LANDA has been given the following [...] a day x 10 day(s) New Routed [facility] [address] [address] fluticasone nasal (Flonase 0.05 mg/inh nasal spray) 2 Beaman(s), Nasal, two times a day fluticasone-salmeterol (Advair Diskus 250 mcg-50 mcg inhalation powder) 1 puff(s), Inhalation, two times a day medroxyPROGESTERone (Depo-Provera Contraceptive 150 mg/mL intramuscular suspension) 1 Milliliter, Intramuscular, every 90 days sertraline (Zoloft 100 mg oral tablet) 1 Tablet(s), Oral, once a day Take 0.5 tablet x 1 week and then 1 tablet daily Routed to [facility] [address] [address] traZODone (traZODone 50 mg oral tablet) 1 [...] if you dont have one. Go to [email or web address] and click on Create Your Account. Then, follow the directions to complete the online form. Jose be asked for your [facility] number which you can find at the top of this document. Your Goals/Additional instructions: Source: [facility] POWERCHART Document Id: [id number] STRIPPER Miscellaneous - [place] Allison M.D. - 09/30/2015 1:38 PM CST Ambulatory Discharge Medication List [address] [id number] Visit Information Name: DHIRAJ LANDA [facility] Number: [id number] Visit Date: 09/30/2015 13:38:46 Attending Provider: WASHINGTON ALLISON MD Primary Care Provider: HOLLEY ARREOLA NP DHIRAJ [...] a day x 10 day(s) New Routed [facility] [address] [address] fluticasone nasal (Flonase 0.05 mg/inh nasal spray) 2 Beaman(s), Nasal, two times a day fluticasone-salmeterol (Advair Diskus 250 mcg-50 mcg inhalation powder) 1 puff(s), Inhalation, two times a day medroxyPROGESTERone (Depo-Provera Contraceptive 150 mg/mL intramuscular suspension) 1 Milliliter, Intramuscular, every 90 days sertraline (Zoloft 100 mg oral tablet) 1 Tablet(s), Oral, once a day Take 0.5 tablet x 1 week and then 1 tablet daily [facility] [address] traZODone (traZODone 50 mg oral tablet) 1 [...] MD Signed On:30-SEP-2015 13:38:40 Additional Information: Source: [facility] POWERCHART Document Id: [id number] STRIPPER Miscellaneous - Chrissy Dia, LGonzaloP.N. - 09/30/2015 1:10 PM CST Adult Athletic Scout Intake/History Adult Athletic Scout Intake/History Entered On: 09/30/2015 13:13 EDGE STRIPPER Performed On: 09/30/2015 13:10 EDGE STRIPPER by CHRISSY DIA LPN Intake Chief Complaint [...] kg/m2 CHRISSY DIA LPN - 09/30/2015 13:10 EDGE STRIPPER General Info Languages : Georgian Is Patient Female and 13-50 no hysterectomy : Yes Status : Patient denies Are you ? : No CHRISSY DAI LPN - 09/30/2015 13:10 EDGE STRIPPER Subjective Pain Symptoms : No CHRISSY DIA LPN - 09/30/2015 13:10 EDGE STRIPPER Dependent Habits Exposure to Tobacco Smoke : Care provider denies smoking in home, Other: former smoker Smoking Status : Former smoker Tobacco 2A : Yes Tobacco Use/Currently Using : No Tobacco Use/Last 30 Days : No Tobacco Use/Last 12 months : No Alcohol Use : No CHRISSY DIA LPN - 09/30/2015 13:10 EDGE STRIPPER Caffeine Use Grid Caffeine Use : Current Type : Soft drinks Frequency : Occasionally CHRISSY DIA LPN - 09/30/2015 13:10 EDGE STRIPPER Recreational Drug Use Grid Drug Use : None CHRISSY DIA LPN - 09/30/2015 13:10 EDGE STRIPPER Source: [employer] Document Id: [id number] EDGE STRIPPER!41 STRIPPER Miscellaneous - Chrissy Dia L.P.NGonzalo - 09/30/2015 1:07 PM CST Health Assessment Health Assessment Entered On: 09/30/2015 13:08 EDGE STRIPPER Performed On: 09/30/2015 13:07 EDGE STRIPPER by CHRISSY DIA LPN Health Assessment Complete Health Assessment Complete or Modified : Annual Health Assessment Annual Health Assessment Completed : Yes CHRISSY DIA LPN - 09/30/2015 13:07 EDGE STRIPPER Nutrition Nutrition Risk Factors by History Adult : None CHRISSY DIA LPN - 09/30/2015 13:07 EDGE STRIPPER Functional Current Daily Living Assistance : None CHRISSY DIA LPN - 09/30/2015 13:07 EDGE STRIPPER Dependent Habits Exposure to Tobacco Smoke : Care provider denies smoking in home, Other: former smoker Smoking Status : Former smoker Tobacco 2A : Yes Tobacco Use/Currently Using : No Tobacco Use/Last 30 Days : No Tobacco Use/Last 12 months : No HCRISSY DIA LPN - 09/30/2015 13:07 EDGE STRIPPER Caffeine Use Grid Caffeine Use : Current Type : Soft drinks Frequency : Occasionally CHRISSY DIA LPN - 09/30/2015 13:07 EDGE STRIPPER Alcohol Use : No CHRISSY DIA LPN - 09/30/2015 13:07 EDGE STRIPPER Recreational Drug Use Grid Drug Use : None CHRISSY DIA LPN - 09/30/2015 13:07 EDGE STRIPPER Psychosocial Domestic Abuse Concerns : None Behavioral Health Screen/Safety Assmt : No Episcopalian Preference : CHRISSY Muñiz LPN - 09/30/2015 13:07 EDGE STRIPPER Advance Directive Advanced Directives : No Advance Directive Additional Information : No CHRISSY DIA LPN - 09/30/2015 13:07 EDGE STRIPPER Educ Needs Learning Style Preference Adult Grid Patient : Demonstration, Printed materials Family : CHRISSY Maharaj LPN - 09/30/2015 13:07 EDGE STRIPPER Source: [facility] POWERCHART Document Id: [id number] EDGE STRIPPER!35 STRIPPER documented in this encounter Plan of Treatment Not on filedocumented as of this encounter Visit Diagnoses Not on filedocumented in this encounter
--- OUTSIDE RECORDS SUMMARY | 2022-07-20 10:53 | XMS_ITS | Encounter Summary ---
:1995 Author Organization [facility] Address [address] [place] [address] Care Team Providers Name Role Phone Unavailable Primary Care Provider Unavailable Encounter Details Date Type Department Care Team Description 03/19/2016 Hospital Encounter HX [facility] [place] [facility] [place] Francisca Arreola, HOT SAW OPERATOR, C.N.P. [address] [place], [place] [address] (Wo rk) Social History [...] How often do you attend catholic or faith Never 10/23/2020 services? 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 She reports her new job is going [...] # 30 cap(s), 1 Refill(s), Maintenance, Pharmacy: [facility] Electronically Signed By: HOLLEY ARREOLA HOTBED OPERATOR On: 03/21/2016 08:29 PM Source: [facility] POWERCHART Document Id: [id number] documented in this encounter Miscellaneous Notes Miscellaneous - Carlee Dash, L.P.N. - 03/19/2016 3:34 PM CDT Adult Division Order Analyst Intake/History Adult Division Order Analyst Intake/History Entered On: 03/19/2016 15:36 CDT Performed On: 03/19/2016 15:34 CDT by CARLEE DASH TRANSACTION PROCESSOR, RT Intake Chief Complaint : F/u medications. [...] 03/19/2016 15:34 CDT General Info Languages : Chinese Is Patient Female and 13-50 no hysterectomy : Yes Status : Patient denies Are you ? : No SETH CARLEE Baker LPN, RT - 03/19/2016 [...] LPN, RT - 03/19/2016 15:34 CDT Source: [facility] [employer] Document Id: [id number] CDT!34 documented in this encounter Plan of Treatment Not on filedocumented as of this encounter Visit Diagnoses Not on filedocumented in this encounter
--- OUTSIDE RECORDS SUMMARY | 2022-07-20 10:53 | XMS_ITS | Encounter Summary ---
:1995 Author Organization [facility] Address [address] [place] [address] Care Team Providers Name Role Phone Unavailable Primary Care Provider Unavailable Encounter Details Date Type Department Care Team Description 08/15/2016 Hospital Encounter HX [facility] ED Ramsey Kahn M.D. 200 [place], [place] [address] (Wo rk) Social History [...] at Date Recorded Female 08/12/2017 10:51 AM CLAY ROASTER documented as of this encounter Last Filed Vital Signs Vital Sign Reading Time Taken Comments Blood Pressure 130/84 08/15/2016 3:48 PM CLAY ROASTER Pulse 78 08/15/2016 3:48 PM CLAY ROASTER Temperature - - Respiratory Rate 16 08/15/2016 3:48 PM CLAY ROASTER Oxygen Saturation - - Inhaled Oxygen Concentration - - Weight - - Height - - Body Mass Index - - documented in this encounter Discharge Summaries Shirley Marsh RYamileth. - 08/15/2016 4:24 PM CST ED Depart Summary [facility] Emergency Department Clinical Discharge Summary PERSON INFORMATION Name DHIRAJ LANDA Age 21 Years 1995 12:00 AM Sex Female Language Palestinian PCP AMANDA ARREOLA NP Marital Status [id number] Reason UC - Sinus Pain or Congestion; Sinus congestion Specialty Enc Type Emergency Med Service Emergency Medicine Referred by [facility] ED Discharge 08/15/2016 4:24 PM Tracking Id [id number] Checkout 08/15/2016 4:24 PM Checkin 08/15/2016 3:43 PM Acuity 5 -Non Urgent Dispo Type * Discharged to Home or Self Care Arrival 08/15/2016 3:43 PM Reg Status Complete LOS 000 00:41 Address: [address] [address] Comment: PROVIDER INFORMATION Provider Role Provider Contact Time RAJESH KAHN MD ED Provider 08/15/16 15:57 SHIRLEY MARSH UNDERWRITER Nurse 08/15/16 16:05 DIAGNOSIS Dependence (Tobacco) Nicotine; Sinusitis Acute NOS Comment: PATIENT EDUCATION INFORMATION Instructions: Acute Sinusitis Follow up: With: Address: When: AMANDA ARREOLA [address] [place] [address] [facility] (0) Within As Needed Source: [facility] POWERCHART Document Id: [id number] ROASTER Shirley Marsh R.N. - 08/15/2016 4:24 PM CST ED Discharge Instructions [address] [address] Name: DHIRAJ LANDA Date of : 1995 12:00 AM Visit Date: 08/15/2016 3:43 PM [facility] Number: [id number] Address: [address] [place] [address] [place] [address] Primary Care Provider: AMANDA ARREOLA NP IMPORTANT: [facility] in [place] would like to thank you for allowing us to assist you with your healthcare needs. The following includes patient education materials and informationregarding your injury/illness. Diagnosis: Dependence (Tobacco) Nicotine; Sinusitis Acute NOS Follow-Up Instructions: With: Address: When: AMANDA ARREOLA [address] [place] [address] [place] [address] Business (1) Within As Needed Your Upcoming [...] Take ibuprofen or Aleve for pain. ?? [id number] [facility], [address] [place] [address], [place] [address]. All rights reserved. This information is not [...] dont have one. Go to [email or web address] and click on Create Your Account. Then, follow the directions to complete the online form. Youll be asked for your [facility] number which you can find at [...] document has images extracted. Please consider using [employer] [facility] for all your patient education needs. Source: [facility] POWERCHART Document Id: [id number] ROASTER documented in this encounter Medications at Time [...] Note : Chief Complaint Description 08/15/2016 15:48 CLAY ROASTER Chief Complaint Description presents with sinus congestion [...] profile not seen on sono: f/u ordered ([id number]): Onset on 06/06/2013 at 18 years. Resolved on 12/27/2013 at 18 years. Otitis Media Acute NOS (341599182): Resolved. Pneumonia NOS (218098897): Resolved. Varicella Zoster (696995521): Resolved. Vaginosis Bacterial (616.10): Resolved. Decreased Fetus [...] V22.0 Resolved: Otitis Media Acute NOS / [id number] Resolved: / 635189597 Resolved: Pneumonia NOS / 326212407 Resolved: Vaginosis Bacterial / 616.10 Resolved: Varicella Zoster / 043428478 Canceled: Discharge Vaginal / 623.5. Physical Examination Vital Signs: Vital Signs 08/15/2016 15:48 CLAY ROASTER Temperature Core 36.8 DegC Peripheral Pulse Rate [...] KAHN MD On: 08/15/2016 04:29 PM [facility] Document Id: [id number]} ROASTER Shirley Marsh, R.N. - 08/15/2016 4:14 PM CST ED Pain Assessment ED Pain Assessment Entered On: 08/15/2016 16:14 CLAY ROASTER Performed On: 08/15/2016 16:14 CLAY ROASTER by SHIRLEY MARSH RN Pain Assessment Pain Symptoms : Yes SHIRLEY MARSH RN - 08/15/2016 16:14 CLAY ROASTER [facility] Document Id: [id number] CLAY ROASTER!3 ROASTER Shirley Marsh R.N. - 08/15/2016 4:14 PM CST ED Disposition Summary ED Disposition Summary Entered On: 08/15/2016 16:14 CLAY ROASTER Performed On: 08/15/2016 16:14 CLAY ROASTER by SHIRLEY MARSH UNDERWRITER Disposition Summary Present in Room During Exam/Procedure : Alone Mode of Discharge : Ambulatory Transportation : Private vehicle Printed Discharge Instructions Given to Patient : Yes SHIRLEY MARSH RN - 08/15/2016 16:14 CLAY ROASTER Source: [facility] [employer] Document Id: [id number] CLAY ROASTER!6 ROASTER Shirley Marsh R.N. - 08/15/2016 4:05 PM CST ED Primary Assessment Document Has Been Updated ED Primary Assessment Entered On: 08/15/2016 16:06 CLAY ROASTER Performed On: 08/15/2016 16:05 CLAY ROASTER by SHIRLEY MARSH RN Reason For Visit (As Of: 08/15/2016 16:06:38 CLAY ROASTER) Problems(Active) Asthma NOS (493.90) (ICD-9-CM :493.90 ) [...] Medical ; Code: F32.9 ; Contributor System: [employer] ; Last Updated: 06/20/2015 9:35 CLAY ROASTER ; Life Cycle Status: Active ; Responsible Provider: AMANDA ARREOLA ELECTRICAL TROUBLESHOOTER; Vocabulary: ICD-10-CM Hypertension HTN Gestational (PIH) Delivered (ICD-9-CM :642.31 ) Name of Problem: Hypertension HTN Gestational (PIH) Delivered ; Recorder: LORY VILLA MD; Confirmation: Confirmed ; Classification:Medical ; Code: 642.31 ; Contributor System: [employer] ; Last Updated: 12/27/2013 19:03 CDT ; Life Cycle Date: 12/27/2013 ; Life Cycle Status: Active ; Vocabulary: ICD-9-CM Diagnoses(Active) UC - Sinus Pain or Congestion Date: 08/15/2016 ; Diagnosis Type: Reason For Visit ; Confirmation: Complaint of ; Clinical Dx: UC - Sinus Pain or Congestion ; Classification: Medical ; Clinical Service:Emergency medicine ; Code: PNED ; Probability: 0 ; Diagnosis Code: [id number] Triage Mode of Arrival ED : Private vehicle Track : Medical Languages : Palestinian Treatments Prior to Arrival : None Are you ? : No Is Patient Female and 13-50 no hysterectomy : Yes Status : Patient denies SHIRLEY MARSH RN - 08/15/2016 16:05 CLAY ROASTER Pain Assessment Pain Symptoms : Yes SHIRLEY MARSH RN - 08/15/2016 16:05 CLAY ROASTER Respiratory Airway : Patent Respirations : Unlabored Respiratory Pattern : Regular SHIRLEY MARSH RN - 08/15/2016 16:05 CLAY ROASTER Cardiovascular Heart Rhythm : Regular Skin Color : Normal for ethnicity Skin Description : Dry Skin Temperature : Warm SHIRLEY MARSH RN - 08/15/2016 16:05 CLAY ROASTER Neurological Last Well Time Known : Not applicable Level of Consciousness : Alert Orientation : Oriented x 3 Characteristics of Speech : Appropriate for age SHIRLEY MARSH RN - 08/15/2016 16:05 CLAY ROASTER ED Psychosocial Affect/Behavior : Calm, Cooperative, Appropriate Domestic Abuse Concerns : None Behavioral Health Screen/Safety Assmt : No SHIRLEY MARSH RN - 08/15/2016 16:05 CLAY ROASTER Gastrointestinal Nutrition ED : Adequate SHIRLEY MARSH RN - 08/15/2016 16:05 CLAY ROASTER Musculoskeletal Fall Prevention Education Provided : SHIRLEY SOTELO RN - 08/15/2016 16:05 CLAY ROASTER Social Habits Exposure to Tobacco Smoke : Care provider denies smoking in home, Other: former smoker Smoking Status : Never smoker Tobacco 2A : No Tobacco Use/Currently Using : No Tobacco Use/Last 30 Days : No Tobacco Use/Last 12 months : No SHIRLEY MARSH RN - 08/15/2016 16:05 CLAY ROASTER Alcohol Use Grid Alcohol Use : No SHIRLEY MARSH RN - 08/15/2016 16:05 CLAY ROASTER Recreational Drug Use Grid Drug Use : None SHRILEY MARSH RN - 08/15/2016 16:05 CLAY ROASTER Source: [facility] [employer] Document Id: [id number] CLAY ROASTER!46 ROASTER Shirley Marsh R.N. - 08/15/2016 3:48 PM CST ED Triage Assessment Document Has Been Updated ED Triage Assessment Entered On: 08/15/2016 15:50 CLAY ROASTER Performed On: 08/15/2016 15:48 CLAY ROASTER by SHIRLEY MARSH RN Reason For Visit (As Of: 08/15/2016 15:50:20 CLAY ROASTER) Problems(Active) Asthma NOS (493.90) (ICD-9-CM :493.90 ) [...] Medical ; Code: F32.9 ; Contributor System: [employer] ; Last Updated: 06/20/2015 9:35 CLAY ROASTER ; Life Cycle Status: Active ; Responsible Provider: AMANDA ARREOLA NP; Vocabulary: ICD-10-CM Hypertension HTN Gestational (PIH) Delivered (ICD-9-CM :642.31 ) Name of Problem: Hypertension HTN Gestational (PIH) Delivered ; Recorder: LORY VILLA MD; Confirmation: Confirmed ; Classification:Medical ; Code: 642.31 ; Contributor System: [employer] ; Last Updated: 12/27/2013 19:03 CDT ; Life Cycle Date: 12/27/2013 ; Life Cycle Status: Active ; Vocabulary: ICD-9-CM Diagnoses(Active) UC - Sinus Pain or Congestion Date: 08/15/2016 ; Diagnosis Type: Reason For Visit ; Confirmation: Complaint of ; Clinical Dx: UC - Sinus Pain or Congestion ; Classification: Medical ; Clinical Service:Emergency medicine ; Code: PNED ; Probability: 0 ; Diagnosis Code: [id number] Triage Chief Complaint Description : presents with sinus congestion for 3 days Information Given By : Patient Present in Room During Exam/Procedure : Alone Mode of Arrival ED : Private vehicle Track : Medical Languages : Palestinian Patient Informed of Triage Location : Emergency department Vital Signs Assessed : Yes Treatments Prior to Arrival : None Are you ? : No Is Patient Female and 13-50 no hysterectomy : Yes Status : Patient denies SHIRLEY MARSH RN - 08/15/2016 15:48 CLAY ROASTER Vital Signs Temperature Core : 36.8 DegC(Converted to: 98.2 DegF) Peripheral Pulse Rate : 78 /min Respiratory Rate : 16 /min Systolic Blood Pressure : 130 mmHg Diastolic Blood Pressure : 84 mmHg NIBP Mean : 99 mmHg BP Location : Left upper extremity SpO2 : 98 % Oxygen Therapy : Room air SHIRLEY MARSH RN - 08/15/2016 15:48 CLAY ROASTER Pain Assessment Pain Symptoms : Yes SHIRLEY MARSH RN - 08/15/2016 15:48 CLAY ROASTER Pain Scale Pain Scale Verbal 0-10 : Open SHIRLEY MARSH RN - 08/15/2016 15:48 CLAY ROASTER Pain Pain Assessment Grid Pain 1 Location : Head Laterality : Bilateral Intensity : 6 SHIRLEY MARSH RN - 08/15/2016 15:48 CLAY ROASTER ED Physician Notification Time ED Physician Notification Time : 08/15/2016 15:50 CLAY ROASTER SHIRLEY MARSH RN - 08/15/2016 15:48 CLAY ROASTER RAMA DCP GENERIC CODE Tracking Acuity : 5 -Non Urgent Tracking Group : [facility] ED SHIRLEY MARSH RN - 08/15/2016 15:48 CLAY ROASTER Allergy (As Of: 08/15/2016 15:50:20 CLAY ROASTER) Allergies (Active) Suprax Estimated Onset Date: <not entered> 06/01/2013 ; Reactions: Unknown ; Comments: Comment1: Unknown reaction as a child ; Created By: SKY CUMMINS MD; Reaction Status: Active ; Category: Drug ; Substance: Suprax ; Type: Allergy ; Updated By: SKY CUMMINS MD; Source: Paper Chart/Abstracting ; Reviewed Date: 08/15/2016 15:50 CLAY ROASTER ID Screen Drug Resistant Organism : No Travel Within Last 21 Days : No Contact with someone with Ebola : No SHIRLEY MARSH RN - 08/15/2016 15:48 CLAY ROASTER Immunizations Influenza : None SHIRLEY MARSH RN - 08/15/2016 15:48 CLAY ROASTER [facility] Document Id: [id number] CLAY ROASTER!46 ROASTER documented in this encounter Miscellaneous Notes Miscellaneous - Conversion, Historical Provider Ser - 08/15/2016 4:24 PM CLAY ROASTER Coding Summary-Paper Based CODING DATE: 08/21/2016 FINAL [facility] STATUS: * Discharged to Home [...] SOLER Date Saved: 08/21/2016 12:38 pm Source: [employer] Document Id: [id number] Miscellaneous - Rajesh Kahn M.D. - 08/15/2016 4:17 PM CST Work Excuse August 15, 2016 DHIRAJLOTUS CAROSTEPHKYLE [address] [facility] [address] [place] [address] Dear DHIRAJ LANDA, You were examined in [...] work on August 17. Notes: _ Sincerely, RAJESHDEONTE KAHN [address] [facility] [address] [facility] [place] [address] Electronic Signature Electronically Signed By: RAJESH KAHN MD On: August 15, 2016 This document has images extracted. Source: [facility] [employer] Document Id: [id number] Electronically signed by Stuart [facility] Hospitaljose j Black Top Machine Operator [id number] at 01/24/2017 10:16 PM CDT Miscellaneous - Shirley Marsh RGonzaloNGonzalo - 08/15/2016 4:14 PM CST Valuables/Belongings Valuables/Belongings Entered On: 08/15/2016 16:14 CLAY ROASTER Performed On: 08/15/2016 16:14 CLAY ROASTER by SHIRLEY MARSH RN Valuables/Belongings Home Medication Disposition : None brought in with patient SHIRLEY MARSH RN - 08/15/2016 16:14 CLAY ROASTER Source: [facility] [employer] Document Id: [id number] CLAY ROASTER!3 ROASTER Miscellaneous - Shirley Marsh RGonzaloN. - 08/15/2016 3:43 PM CST Facility Charge Ticket 2.0 11.0 DX Facility Charge Ticket 2.0 11.0 DX Entered On: 08/15/2016 16:14 CLAY ROASTER Performed On: 08/15/2016 15:43 CLAY ROASTER by SHIRLEY MARSH RN Facility Charge Ticket [...] Control : 5 Lynx Visit Level : 54511 Level 3 Treatments Prior to Arrival : None SHIRLEY MARSH RN - 08/15/2016 16:14 CLAY ROASTER [facility] POWERCHART Document Id: [id number] CLAY ROASTER!17 ROASTER documented in this encounter Plan of Treatment Not on filedocumented as of this encounter Visit Diagnoses Not on filedocumented in this encounter
--- OUTSIDE RECORDS SUMMARY | 2022-07-20 10:53 | XMS_ITS | Encounter Summary ---
:1995 Author Organization [facility] Address [address] [place] [address] Care Team Providers Name Role Phone Unavailable Primary Care Provider Unavailable Encounter Details Date Type Department Care Team Description 02/08/2014 Hospital Encounter HX [facility] Law Lua, Ramos LÓPEZ, C.N.P. [address] [place] [address] [phone] (Wo rk) Social History Tobacco Use [...] How often do you attend orthodox or worship Never 10/23/2020 services? 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 Electronically Signed By: LAW SINGER SOFTBALL PLAYER On: 02/08/2014 11:07 AM Source: [employer] Document Id: [id number] documented in this encounter Procedure Notes Nena Ocampo L.PGonzaloN. - 02/08/2014 11:09 AM CDT Depo-Provera Administration Depo-Provera Administration Entered On: 02/08/2014 11:09 CDT Performed On: 02/08/2014 11:09 CDT by NENA OCAMPO LPN Depo-Provera Administration Annual Exam in the Past 12 Months : Yes Last Depo-Provera Given : 02/08/2014 CDT Return appointment : 05/10/2014 CDT NENA OCAMPO LPN - 02/08/2014 11:09 CDT [facility] Document Id: [id number] CDT!5 documented in this encounter Miscellaneous Notes [...] back cell phone number ( ) Source: [facility] POWERCHART Document Id: [id number] Electronically signed by [facility] Rail Track Maintainer [id number] at 01/11/2017 12:41 AM CDT Miscellaneous - Law Singer, R.N. - 02/08/2014 10:49 AM CDT Ambulatory Patient Summary [facility] [address], [address] [place], [place] [id number] Visit Information Name: GORDOSTEPHDHIRAJ WRIGHT [facility] Number: [id number] Current Date: 02/08/2014 10:49:45 Physicians Attending Provider: LAW SINGER NP Primary Care Provider: PCP, UNASSIGNED - DHIRAJ [...] nasal (Flonase 0.05 mg/inh nasal spray) 2 [place](s), Nasal, two times a day fluticasone-salmeterol (Advair [...] of emergency. Electronically Signed By: LAW SINGER NP Signed On:08-FEB-2014 10:49:35 Your Allergies & Intolerances [...] appointment detail needed. Your Goals/Additional instructions: Source: [facility] POWERCHART Document Id: [id number] Miscellaneous - Law Singer, R.N. - 02/08/2014 10:49 AM CDT Ambulatory Discharge Medication List [facility] [address] [place], [address] [place], [place] [phone] Visit Information Name: DHIRAJ LANDA [facility] Number: [id number] Visit Date: 02/08/2014 10:49:43 Attending Provider: LAW SINGER SOFTBALL PLAYER Primary Care Provider: PCP, UNASSIGNED - RW [...] nasal (Flonase 0.05 mg/inh nasal spray) 2 [place](s), Nasal, two times a day fluticasone-salmeterol (Advair [...] of emergency. Electronically Signed By: LAW SINGER SOFTBALL PLAYER Signed On:08-FEB-2014 10:49:35 Additional Information: Source: [facility] POWERCHART Document Id: [id number] Miscellaneous - Nena Ocampo L.P.N. - 02/08/2014 10:24 AM CDT Adult Certified Low Vision Therapist Intake/History Adult Certified Low Vision Therapist Intake/History Entered On: 02/08/2014 10:26 CDT Performed [...] Information Given By : Patient Languages : Welsh NENA OCAMPO [facility] - 02/08/2014 10:24 CDT Subjective Pain Symptoms [...] OCAMPO LPN - 02/08/2014 10:24 CDT [facility] Document Id: [id number] CDT!38 documented in this encounter Plan of Treatment Not on filedocumented as of this encounter Visit Diagnoses Not on filedocumented in this encounter
--- OUTSIDE RECORDS SUMMARY | 2022-07-20 10:53 | XMS_ITS | Encounter Summary ---
:1995 Author Organization [facility] Address [address] [place] [address] Care Team Providers Name Role Phone Unavailable Primary Care Provider Unavailable Encounter Details Date Type Department Care Team Description 10/20/2016 Hospital Encounter HX [facility] Ramos Matos, TOBI, C.N.P., D. N.P. [address] [place] [phone] (Wo rk) Social History Tobacco Use Types [...] How often do you attend mormon or jew Never 10/23/2020 services? 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 She has not tried anything [id number] for symptoms. No fever or chills. No [...] DRUG & GIFT Orders: Chlamydia Gonorrhoeae Amplified RNA-Needles CGRNA OV Est Pt Level 3 - 30782 - 15 min Patient was instructed to [...] the content. Electronically Signed By: CHANDNI MATOS APRN C.N.PGonzalo, Ki.N.P On: 10/21/2016 07:54 AM Source: [facility] Document Id: [id number] ESTATE ADMINISTRATIVE ASSISTANT documented in this encounter Miscellaneous Notes Miscellaneous - Chandni Matos APRN, Mitchell.N.PGonzalo, D.N.P. - 10/23/2016 7:38 AM REAL ESTATE ADMINISTRATIVE ASSISTANT Results Notification Document Contains Addenda Addendum by TONIA HARRIS LPN on October 25, 2016 15:44:26 CDT pt notified. Addendum by TONIA HARRIS LPN on October 23, 2016 08:20:56 REAL ESTATE ADMINISTRATIVE ASSISTANT left message for pt to call back clinic From: CHANDNI MATOS APRN, C.N.PGonzalo, D.N.P To: MA Family Medicine Nurse Mark; Sent: 10/23/2016 07:38:22 REAL ESTATE ADMINISTRATIVE ASSISTANT Show up: 10/23/2016 07:38:00 REAL ESTATE ADMINISTRATIVE ASSISTANT Subject: Results Notification Please notify patient and let her know that her chlamydia and gonorrhea is NEGATIVE. Results: Date Result Name Value Ref Range 10/20/2016 15:15 C trach Amp Src-Needles cervical 10/20/2016 15:15 C trach Amp RNA-Needles Negative (Negative - ) 10/20/2016 15:15 N gonor Amp DNA-Needles Negative (Negative - ) 10/20/2016 15:15 N gonor Amp Src-Correa cervical Source: [facility] POWERCHART Document Id: [id number] Electronically signed by Conversion, [facility] Personnel Generalist Manager [id number] at 01/25/2017 5:58 AM CDT Miscellaneous - Chandni Matos APRN, C.N.Mana, D.N.P. - 10/20/2016 5:05 PM REAL ESTATE ADMINISTRATIVE ASSISTANT Results Notification Document Contains Addenda Addendum by TONIA HARRIS LPN on October 20, 2016 18:37:27 REAL ESTATE ADMINISTRATIVE ASSISTANT pt notified of rresults. From: CHANDNI MATOS APRN, C.N.PGonzalo, D.N.P To: AIDA Family Medicine Nurse Mark; Sent: 10/20/2016 17:05:37 REAL ESTATE ADMINISTRATIVE ASSISTANT Show up: 10/20/2016 17:03:00 REAL ESTATE ADMINISTRATIVE ASSISTANT Subject: Results Notification Please notify patient that [...] Name MBO POS Vaginosis Panel, DNA Source: [facility] [employer] Document Id: [id number] Electronically signed by Conversion, [facility] Personnel Generalist Manager [id number] at 01/25/2017 5:58 AM CDT Miscellaneous - Chandni Matos APRN, C.N.P., D.N.P. - 10/20/2016 3:24 PM REAL ESTATE ADMINISTRATIVE ASSISTANT Ambulatory Patient Summary [address] [phone] Visit Information Name: DHIRAJ LANDA [facility] Number: [id number] Current Date: 10/20/2016 15:24:11 Physicians Attending Provider: CHANDNI MATOS APRN, C.N.PGonzalo, D.N.P Primary Care Provider: AMANDA ARREOLA HERBICIDE SPRAYER DHIRAJ LANDA PAWEL has been given the [...] nasal (Flonase 0.05 mg/inh nasal spray) 2 [place](s), Nasal, two times a day fluticasone-salmeterol (Advair [...] if you dont have one. Go to [email or web address] and click on Create Your Account. Then, follow the directions to complete the online form. Youll be asked for your [facility] number which you can find at the top of this document. Your Goals/Additional instructions: Source: [facility] POWERCHART Document Id: [id number] ESTATE ADMINISTRATIVE ASSISTANT Miscellaneous - Chandni Matos APRN, Mitchell.N.P., D.N.P. - 10/20/2016 3:24 PM REAL ESTATE ADMINISTRATIVE ASSISTANT Ambulatory Discharge Medication List [address] [id number] Visit Information Name: DHIRAJ LANDA [facility] Number: [id number] Current Date: 10/20/2016 15:24:07 Attending Provider: CHANDNI MATOS APRN, C.N.P., D.N.P Primary Care Provider: AMANDA ARREOLA HERBICIDE SPRAYER DHIRAJ LANDA has been given the following [...] nasal (Flonase 0.05 mg/inh nasal spray) 2 [place]add[place](s), Nasal, two times a day fluticasone-salmeterol (Advair [...] D.N.P Signed On:20-OCT-2016 15:24:03 Additional Information: Source: [facility] POWERCHART Document Id: [id number] ESTATE ADMINISTRATIVE ASSISTANT Miscellaneous - Vinnie Lyman L.P.N. - 10/20/2016 2:57 PM CST Adult Director Life Intake/History Adult Director Life Intake/History Entered On: 10/20/2016 15:01 REAL ESTATE ADMINISTRATIVE ASSISTANT Performed On: 10/20/2016 14:57 REAL ESTATE ADMINISTRATIVE ASSISTANT by VINNIE LYMAN LPN Intake Chief Complaint [...] inch(es)) VINNIE LYMAN LPN - 10/20/2016 14:57 REAL ESTATE ADMINISTRATIVE ASSISTANT General Info Languages : Kinyarwanda Is Patient Female and 13-50 no hysterectomy : Yes Status : Patient denies Are you ? : No VINNIE LYMAN LPN - 10/20/2016 14:57 REAL ESTATE ADMINISTRATIVE ASSISTANT Subjective Pain Symptoms : No VINNIE LYMAN LPN - 10/20/2016 14:57 REAL ESTATE ADMINISTRATIVE ASSISTANT Dependent Habits Exposure to Tobacco Smoke : Care provider denies smoking in home, Other: former smoker Smoking Status : Former smoker Tobacco 2A : Yes Tobacco Use/Currently Using : No Tobacco Use/Last 30 Days : No Tobacco Use/Last 12 months : No VINNIE LYMAN LPN - 10/20/2016 14:57 REAL ESTATE ADMINISTRATIVE ASSISTANT Caffeine Use Grid Caffeine Use : Current Type : Soft drinks Frequency : Occasionally VINNIE LYMAN LPN - 10/20/2016 14:57 REAL ESTATE ADMINISTRATIVE ASSISTANT Recreational Drug Use Grid Drug Use : None VINNIE LYMAN LPN - 10/20/2016 14:57 REAL ESTATE ADMINISTRATIVE ASSISTANT Source: [facility] [employer] Document Id: [id number] REAL ESTATE ADMINISTRATIVE ASSISTANT!38 ESTATE ADMINISTRATIVE ASSISTANT documented in this encounter Plan of Treatment Not on filedocumented as of this encounter Procedures Procedure Name Priority Date/Time Associated Diagnosis Comme nts VAGINITIS BATTERY, Routine 10/20/2016 3:28 PM Res ults for this DNA (GENITAL) REAL ESTATE ADMINISTRATIVE ASSISTANT procedure are in the results section. N GONOR AMP SRC Routine 10/20/2016 3:15 PM Result s for this REAL ESTATE ADMINISTRATIVE ASSISTANT procedure are i n the results section. N GONOR AMP DNA Routine 10/20/2016 3:15 PM Result s for this REAL ESTATE ADMINISTRATIVE ASSISTANT procedure are i n the results section. C TRACH AMP SRC Routine 10/20/2016 3:15 PM Result s for this REAL ESTATE ADMINISTRATIVE ASSISTANT procedure are i n the results section. C TRACH AMP RNA Routine 10/20/2016 3:15 PM Result s for this REAL ESTATE ADMINISTRATIVE ASSISTANT procedure are i n the results section. documented in this encounter Results (ABNORMAL) VAGINITIS BATTERY, DNA (GENITAL) (10/20/2016 3:28 PM REAL ESTATE ADMINISTRATIVE ASSISTANT) Component Value Ref Test Analysis [facility]formed [facility] gist Range Method Time Signature HXVaginitis (POSITIVE) POWERCHART Battery, DNA (Genital) HXFinal Trichomonas POWERCHART vaginalis DNA negative HXFinal Gardnerella POWERCHART vaginalis DNA positive HXFinal Veronica species POWERCHART DNA positive HXFinal Reference: POWERCHART Negative Specimen (Source) Anatomical Collection Method Collection Time Re ceived Time Location / / Volume Laterality Vagina 10/20/2016 3:28 PM REAL ESTATE ADMINISTRATIVE ASSISTANT Chandni Matos APRN, C.N.P., D.N.P. LAB HISTORICAL OR DERS Performing Organization Address City/[facility] Code Phon e Number POWERCHART HX-N gonor Amp DNA (10/20/2016 3:15 PM REAL ESTATE ADMINISTRATIVE ASSISTANT) athologist Signature HXN gonor Amp Negative POWERCHART DNA-Needles Specimen (Source) Anatomical Collection Method Collection Time Re ceived Time Location / / Volume Laterality 10/20/2016 3:15 PM REAL ESTATE ADMINISTRATIVE ASSISTANT Narrative POWERCHART - 10/22/2016 2:47 PM REAL ESTATE ADMINISTRATIVE ASSISTANT ADDITIONAL INFORMATION This report is intended for use in clini hernandez monitoring and management of patients. It is not in tended for use in medical-legal applications. Test Performed by: [facility] - [address] [address] Chandni Matos APRN C.N.P., D.N.P. LAB HISTORICAL OR DERS Performing Organization Address City/[facility] Code Phon e Number POWERCHART HX-N gonor Amp Src (10/20/2016 3:15 PM REAL ESTATE ADMINISTRATIVE ASSISTANT) athologist Signature HXN gonor Amp cervical POWERCHART Src-Needles Specimen (Source) Anatomical Collection Method Collection Time Re ceived Time Location / / Volume Laterality 10/20/2016 3:15 PM REAL ESTATE ADMINISTRATIVE ASSISTANT Chandni Matos APRN C.N.P., D.N.P. LAB HISTORICAL OR DERS Performing Organization Address City/[facility]/ZIP Code Phon e Number POWERCHART HX-C trach Amp RNA (10/20/2016 3:15 PM REAL ESTATE ADMINISTRATIVE ASSISTANT) Patholo gist Method Time Signature Chlamydia Negative POWERCHART trachomatis amplified RNA Specimen (Source) Anatomical Collection Method Collection Time Re ceived Time Location / / Volume Laterality 10/20/2016 3:15 PM REAL ESTATE ADMINISTRATIVE ASSISTANT Narrative POWERCHART - 10/22/2016 2:47 PM REAL ESTATE ADMINISTRATIVE ASSISTANT ADDITIONAL INFORMATION This report is intended for use in clini hernandez monitoring and management of patients. It is not in tended for use in medical-legal applications. Chandni Matos APRN, C.N.P., D.N.P. LAB HISTORICAL OR DERS Performing Organization Address City/State/[facility] Code Phon e Number POWERCHART HX-C trach Amp Src (10/20/2016 3:15 PM REAL ESTATE ADMINISTRATIVE ASSISTANT) P athologist Signature HXC trach Amp cervical POWERCHART Src-Needles Specimen (Source) Anatomical Collection Method Collection Time Re ceived Time Location / / Volume Laterality 10/20/2016 3:15 PM REAL ESTATE ADMINISTRATIVE ASSISTANT Chandni Matos APRN, C.N.P., D.N.P. LAB HISTORICAL OR DERS Performing Organization Address City/State/ZIP Code Phon e Number POWERCHART documented in this encounter Visit Diagnoses Not on filedocumented in this encounter
--- OUTSIDE RECORDS SUMMARY | 2022-07-20 10:53 | XMS_ITS | Encounter Summary ---
:1995 Author Organization [facility] Address [address] [place] [address] Care Team Providers Name Role Phone Unavailable Primary Care Provider Unavailable Encounter Details Date Type Department Care Team Description 04/26/2015 Hospital Encounter HX [facility] Law petersen M.D. [address] [place] [phone] (Wo rk) Social History Tobacco Use Types [...] How often do you attend adventist or protestant Never 10/23/2020 services? 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 Sinusitis Acute NOS Patient has significant frontal headache and hot and cold flashes with nasal stuffiness. We are going to treat her for a sinus infection with Augmentin 1 pill twice daily for 10 days. She is given a note to stay home from work today. Ordered: OV Est Pt Level 3 - 28219 - 15 min Orders: amoxicillin-clavulanate, 1 tab(s), PO, 2xDay, x 10 day(s), # 20 tab(s), 0 Refill(s), Acute, Pharmacy: [facility] predniSONE, 40 mg = 2 tab(s), PO, Daily, x 5 day(s), # 10 tab(s), 0 Refill(s), Acute, Pharmacy: [facility] Electronically Signed By: LAW BACA MD On: 04/26/2015 09:18 AM Source: [facility] POWERCHART Document Id: [id number] documented in this encounter Miscellaneous Notes Miscellaneous - Law Mancilla M.D. - 04/27/2015 11:16 AM CDT Work Excuse 27 April 2015 DHIRAJ LANDA [address] [facility] [id number] Dear DHIRAJ LANDA, You were examined in [...] not feeling better yet. Sincerely, LAW BACA [address] [place] [address] Electronic Signature Electronically Signed By: LAW BACA MD On: 27 April 2015 This document has images extracted. Source: [employer] Document Id: [id number] Electronically signed by Conversion, [facility] On Awake Counselor [id number] at 01/10/2017 5:16 PM CDT Ramona - Law Mancilla M.D. - 04/26/2015 8:58 AM CDT Work Excuse 26 April 2015 DHIRAJ LANDA [address] [facility] [id number] Dear DHIRAJ LANDA, You were examined in [...] feeling better Notes: _ Sincerely, LAW BACA [address] [place] [address] Electronic Signature Electronically Signed By: LAW BACA MD On: 26 April 2015 This document has images extracted. Source: [employer] Document Id: [id number] Electronically signed by Conversion, [facility] On Awake Counselor [id number] at 01/10/2017 5:16 PM CDT Law Jones M.D. - 04/26/2015 8:57 AM CDT Ambulatory Patient Summary [address] [place] [id number] Visit Information Name: DHIRAJ LANDA [facility] Number: [id number] Current Date: 04/26/2015 08:57:46 Physicians [...] day x 10 day(s) New Routed to [address] [address] fluticasone nasal (Flonase 0.05 mg/inh nasal spray) 2 [place](s), Nasal, two times a day fluticasone-salmeterol (Advair Diskus 250 mcg-50 mcg inhalation powder) 1 puff(s), Inhalation, two times a day medroxyPROGESTERone (Depo-Provera Contraceptive 150 mg/mL intramuscular suspension) 1 Milliliter, Intramuscular, every 90 days predniSONE (predniSONE 20 mg oral tablet) 2 Tablet(s), Oral, once a day x 5 day(s) New Routed to [address] [id number] sertraline (Zoloft 100 mg oral tablet) 1 [...] if you dont have one. Go to [email or web address] and click on Create Your Account. Then, follow the directions to complete the online form. Youll be asked for your [facility] number which you can find at the top of this document. Your Goals/Additional instructions: Source: [facility] POWERCHART Document Id: [id number] Miscellaneous - Law Mancilla M.D. - 04/26/2015 8:57 AM CDT Ambulatory Discharge Medication List [address] [place], [place] [phone] Visit Information Name: SYEDA DHIRAJLOTUS GRAVESE [facility] Number: [id number] Visit Date: 04/26/2015 08:57:44 Attending [...] day x 10 day(s) New Routed to [address] [address] fluticasone nasal (Flonase 0.05 mg/inh nasal spray) 2 [place](s), Nasal, two times a day fluticasone-salmeterol (Advair Diskus 250 mcg-50 mcg inhalation powder) 1 puff(s), Inhalation, two times a day medroxyPROGESTERone (Depo-Provera Contraceptive 150 mg/mL intramuscular suspension) 1 Milliliter, Intramuscular, every 90 days predniSONE (predniSONE 20 mg oral tablet) 2 Tablet(s), Oral, once a day x 5 day(s) New Routed to [address] [address] sertraline (Zoloft 100 mg oral tablet) 1 [...] MD Signed On:26-APR-2015 08:57:36 Additional Information: Source: [facility] POWERCHART Document Id: [id number] Miscellaneous - Teresa Parkinson, L.P.N. - 04/26/2015 8:40 AM CDT Adult Stem Sizer Intake/History Adult Stem Sizer Intake/History Entered On: 04/26/2015 8:43 CDT Performed On: 04/26/2015 8:40 CDT by TERESA PAKRINSON LPN Intake Chief Complaint : woke up [...] ft 5 inch(es), 65 inch(es)) TERESA PARKINSON PREMIUM CANCELLATION CLERK - 04/26/2015 8:40 CDT General Info Languages : Namibian Is Patient Female and 13-50 no hysterectomy [...] Smoking Status : Never smoker TERESA PARKINSON [facility] - 04/26/2015 8:40 CDT Caffeine Use Grid Caffeine Use : Current Type : Soft drinks Frequency : Occasionally TERESA PARKINSON [facility] - 04/26/2015 8:40 CDT Recreational Drug Use Grid Drug Use : None TERESA PARKINSON [facility] - 04/26/2015 8:40 CDT Source: [employer] Document Id: [id number] CDT!42 documented in this encounter Plan of Treatment Not on filedocumented as of this encounter Visit Diagnoses Not on filedocumented in this encounter
--- OUTSIDE RECORDS SUMMARY | 2022-07-20 10:53 | XMS_ITS | Encounter Summary ---
:1995 Author Organization [facility] Address [address] [place] [address] Care Team Providers Name Role Phone Unavailable Primary Care Provider Unavailable Encounter Details Date Type Department Care Team Description 10/28/2014 Hospital Encounter HX [facility] Iva Sam, SHAYE N, C.N.P. [address] [place], [place] [phone] (Wo rk) Social History [...] How often do you attend confucianist or pentecostalism Never 10/23/2020 services? 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
--- OUTSIDE RECORDS SUMMARY | 2022-07-20 10:53 | XMS_ITS | Encounter Summary ---
:1995 Author Organization [facility] Address [address] [place] [address] Care Team Providers Name Role Phone Unavailable Primary Care Provider Unavailable Encounter Details Date Type Department Care Team Description 12/05/2015 Hospital Encounter HX [facility] [place] Francisca Arreola, MACHINE TRACER, C.N.P. [address] [place], [place] [address] (Wo rk) Social History [...] How often do you attend hoahaoism or shinto Never 10/23/2020 services? Do you [...] MEDIA BUYER documented as of this encounter Last Filed [...] Arreola R.N. - 12/05/2015 2:59 PM CDT [id number] CHIEF COMPLAINT/REASON FOR VISIT Depression follow up. [...] by and Electronically Signed by: HOLLEY ARREOLA EDUCATION PROGRAM MANAGER On: 12/08/2015 08:55 AM Source: [facility] MHSDOLBEYNONRADSYS Document Id: [id number] documented in this encounter Miscellaneous Notes Miscellaneous - Holley Arreola R.N. - 12/05/2015 3:56 PM CDT Ambulatory Patient Summary [address] [id number] Visit Information Name: SYEDA DHIRAJLOTUS ARMAS [facility] Number: [id number] Current Date: 12/05/2015 15:56:04 Physicians Attending Provider: HOLLEY ARREOLA EDUCATION PROGRAM MANAGER Primary Care Provider: HOLLEY ARREOLA NP DHIRAJ [...] nasal (Flonase 0.05 mg/inh nasal spray) 2 [place](s), Nasal, two times a day fluticasone-salmeterol (Advair [...] one. Go to [email or web address] and click on Create Your Account. Then, follow the directions to complete the online form. Youll be asked for your [facility] number which you can find at the top of this document. Your Goals/Additional instructions: Source: [facility] ServiceTitan Document Id: [id number] Miscellaneous - Holley Arreola R.N. - 12/05/2015 3:56 PM CDT Ambulatory Discharge Medication List [address] [id number] Visit Information Name: DHIRAJ LANDA [facility] Number: [id number] Visit Date: 12/05/2015 15:56:03 Attending Provider: HOLLEY ARREOLA EDUCATION PROGRAM MANAGER Primary Care Provider: HOLLEY ARREOLA EDUCATION PROGRAM MANAGER DHIRAJ LANDA has been given the following [...] nasal (Flonase 0.05 mg/inh nasal spray) 2 [place](s), Nasal, two times a day fluticasone-salmeterol (Advair [...] of emergency. Electronically Signed By: HOLLEY ARREOLA EDUCATION PROGRAM MANAGER Signed On:05-DEC-2015 15:55:53 Additional Information: Source: [facility] POWERCHART Document Id: [id number] Miscellaneous - Phyllis Vicente, L.P.N. - 12/05/2015 3:24 PM CDT Adult Mechanical Engineering Technologist Intake/History Adult Mechanical Engineering Technologist Intake/History Entered On: 12/05/2015 15:30 CDT Performed [...] 12/05/2015 15:24 CDT General Info Languages : Lithuanian Is Patient Female and [...] PHYLLIS VICENTE - 12/05/2015 15:24 CDT Source: [employer] Document Id: [id number] CDT!44 Miscellaneous - Dennys Nelson - 12/05/2015 3:08 PM CDT Quality Measures Quality Measures Entered On: 12/23/2015 15:08 CDT Performed On: 12/05/2015 15:08 CDT by DENNYS NELSON Depression PHQ-9 Score : 17 DENNYS NELSON - 12/23/2015 15:08 CDT Source: [employer] Document Id: [id number] CDT!3 documented in this encounter Plan of Treatment Not on filedocumented as of this encounter Visit Diagnoses Not on filedocumented in this encounter
--- OUTSIDE RECORDS SUMMARY | 2022-07-20 10:53 | XMS_ITS | Encounter Summary ---
:[address] [facility] Address [address] [place] [address] Care Team Providers Name Role Phone Unavailable Primary Care Provider Unavailable Encounter Details Date Type Department Care Team Description 11/04/2014 Hospital Encounter HX [facility] Karlie Mark M.D. [address] [place], [place] [address] (Wo rk) Social History [...] How often do you attend mu-ism or protestant Never 10/23/2020 services? 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 [...] OLMEDO MD On: 11/07/2014 08:59 AM Source: [facility] MHSDOLBEYNONRADSYS Document Id: [id number] documented in this encounter Miscellaneous Notes Miscellaneous - Mellisa Mac R.N. - 11/06/2014 9:40 AM CDT Normal Results Letter 06 November 2014 DHIRAJ LANDA [id number] [address] [facility] [id number] Dear DHIRAJ LANDA, I am pleased to [...] 2.21 11/04/2014 2.04 12/28/2013 0.90 - 2.90 Caldwell Absolute (x10(9)/L) 0.39 11/04/2014 0.78 12/28/2013 0.30 - 0.90 Eos Absolute (x10(9)/L) 0.10 11/04/2014 0.13 12/28/2013 0.05 - 0.50 Baso Absolute (x10(9)/L) 0.02 11/04/2014 0.03 12/28/2013 0.00 - 0.30 Differential? Auto 11/04/2014 Sincerely, LAUREN CASILLAS Electronic Signature Electronically Signed By: LAUREN CASILLAS RN On: 06 November 2014 This document has images extracted. Source: [facility] POWERCHART Document Id: [id number] Electronically signed by Conversion, [facility] Engine Research Engineer [id number] at 01/10/2017 11:35 AM CDT Miscellaneous - Teresa Parkinson, L.P.N. - 11/04/2014 3:39 PM CDT Adult Activity Coordinator Intake/History Adult Activity Coordinator Intake/History Entered On: 11/04/2014 15:42 CDT Performed [...] Mass Index : 35.1 kg/m2 [facility] - 11/04/2014 15:39 CDT General Info Languages : South Sudanese Is Patient Female and 13-50 no hysterectomy : Yes Status : Patient denies Are you ? : No [facility] - 11/04/2014 15:39 CDT Subjective Pain Symptoms : No [facility] - 11/04/2014 15:39 CDT Dependent Habits Tobacco Use/Currently Using : Yes Exposure to Tobacco Smoke : Care provider denies smoking in home, Other: former smoker Smoking Status : Light tobacco smoker [facility] - 11/04/2014 15:39 CDT Tobacco Use Grid Last Use : never [facility] - 11/04/2014 15:39 CDT Alcohol Use : No [facility] 11/04/2014 15:39 CDT Caffeine Use Grid Caffeine Use : Current Type : Soft drinks Frequency : Occasionally [facility] - 11/04/2014 15:39 CDT Recreational Drug Use Grid Drug Use : None [facility] 11/04/2014 15:39 CDT ID Screen Drug Resistant Organism : No Travel Within Last 21 Days : No Contact with someone with Ebola : No [facility] - 11/04/2014 15:39 CDT Source: [facility] TimeLynes Document Id: [id number] CDT!48 documented in this encounter Plan of [...] M.D. LAB BLOOD ADD-ON Performing Organization Address City/[facility] Phon e Number POWERCHART CBC with Differential (11/04/2014 4:48 PM CDT) athologist Signature Leukocytes 6.3 3.4 - 10.5 POWERCHART X109L Erythrocytes 4.68 3.90 - POWERCHART 5.03 [id number] Hemoglobin 13.0 12.0 - POWERCHART 15.5 GDL [...] M.D. LAB BLOOD ADD-ON Performing Organization Address City/[facility] Phon e Number POWERCHART (ABNORMAL) CMP (Comprehensive Metabolic Panel) (11/04/2014 4:48 PM CDT) [facility] Method Time Signature Anion Gap 14 [...] POWERCHART GDL HXeGFR (MDRD) >60 >=60 POWERCHART [id number] 2 eGFR Black/ >60 >=60 POWERCHART Sammarinese [id number] 2 Specimen (Source) Anatomical Collection Method Collection [...]
--- OUTSIDE RECORDS SUMMARY | 2022-07-20 10:53 | XMS_ITS | Encounter Summary ---
:1995 Author Organization [facility] Address [address] [place] [address] Care Team Providers Name Role Phone Unavailable Primary Care Provider Unavailable Encounter Details Date Type Department Care Team Description 05/01/[address] [facility] Maureen Lua, Ramos LÓPEZ, C.N.P. [address] [place] [phone] (Wo rk) Social History Tobacco Use [...] How often do you attend zoroastrian or orthodox Never 10/23/2020 services? 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 Document Id: [id number] CDT!6 Joy Johnson L.P.N. - 05/01/2014 1:50 PM CDT Depo-Provera Administration Depo-Provera Administration Entered On: 05/01/2014 13:50 CDT Performed On: 05/01/2014 13:50 CDT by JOY JOHNSON LPN Depo-Provera Administration Return appointment : 07/31/2014 CAFETERIA TABLE ATTENDANT JOY JOHNSON LPN - 05/01/2014 13:50 CDT Source: [facility] POWERCHART Document Id: [id number] CDT!3 documented in this encounter Plan of [...]
--- OUTSIDE RECORDS SUMMARY | 2022-07-20 10:53 | XMS_ITS | Encounter Summary ---
:1995 Author Organization [facility] Address [address] [place] [address] Care Team Providers Name Role Phone Unavailable Primary Care Provider Unavailable Encounter Details Date Type Department Care Team Description 07/31/2014 Hospital Encounter HX [facility] Maureen Lua, Ramos LÓPEZ, C.N.P. [address] [place] [phone] (Wo rk) Social History Tobacco Use [...] How often do you attend adventism or pentecostal Never 10/23/2020 services? 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 Last Filed Vital Signs Vital Sign Reading Time Taken Comments Blood Pressure - - Pulse - - Temperature - - Respiratory Rate - - Oxygen Saturation - - Inhaled Oxygen Concentration - - Weight - - Height 164 cm (5' 4.57) 07/31/2014 4:09 PM ACCESS CONTROL SPECIALIST Body Mass Index - - documented [...] Administration Depo-Provera Administration Entered On: 07/31/2014 16:16 ACCESS CONTROL SPECIALIST Performed On: 07/31/2014 16:15 ACCESS CONTROL SPECIALIST by NENA OCAMPO LPN Depo-Provera Administration Return appointment : 10/30/2014 CDT Depo-Provera Administration Comments : Lot: [id number] Expires: 01/2017 NENA OCAMPO LPN - 07/31/2014 16:15 ACCESS CONTROL SPECIALIST Source: [facility] POWERCHART Document Id: [id number] ACCESS CONTROL SPECIALIST!4 SS CONTROL SPECIALIST documented in this encounter Plan of Treatment Not on filedocumented as of this encounter Visit Diagnoses Not on filedocumented in this encounter
--- OUTSIDE RECORDS SUMMARY | 2022-07-20 10:53 | XMS_ITS | Encounter Summary ---
:1995 Author Organization [facility] Address [address] [place] [address] Care Team Providers Name Role Phone Unavailable Primary Care Provider Unavailable Encounter Details Date Type Department Care Team Description 04/29/2014 Hospital Encounter [facility]X [facility] [place] Stephanie Ge M.D. Social History [...] How often do you attend orthodox or nondenominational Never 10/23/2020 services? 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 - 04/29/2014 10:49 AM CDT [id number] Dhiraj is here for a pre-employment physical. She is going to be working here in [employer]. The completed form will be scanned into her EMR. I see no problems with her employment here. Stephanie Ge M.D./antonia Electronically Signed By: STEPHANIE GE MD On: 04/29/2014 01:34 PM Source: [facility] MHSDOLBEYNONRADSYS Document Id: [id number] documented in this encounter Miscellaneous Notes Miscellaneous - Stephanie Ge M.D. - 04/29/2014 11:59 AM CDT Ambulatory Patient Summary [address] [place] [id number] Visit Information Name: DHIRAJ LANDA [facility] Number: [id number] Current Date: 04/29/2014 11:59:11 [...] nasal (Flonase 0.05 mg/inh nasal spray) 2 [place](s), Nasal, two times a day fluticasone-salmeterol (Advair [...] Appointments Date Time Location Provider 05/01/2014 13:45 [facility] Nurse Attention: Contact your local Clinic if further appointment detail needed. Your Goals/Additional instructions: Source: [facility] POWERCHART Document Id: [id number] Miscellaneous - Stephanie Ge M.D. - 04/29/2014 11:59 AM CDT Ambulatory Discharge Medication List [address] [id number] Visit Information Name: DHIRAJ LANDA [facility] Number: [id number] Visit Date: 04/29/2014 11:59:09 [...] nasal (Flonase 0.05 mg/inh nasal spray) 2 [place](s), Nasal, two times a day fluticasone-salmeterol (Advair [...] MD Signed On:29-APR-2014 11:58:51 Additional Information: Source: [facility] POWERCHART Document Id: [id number] Miscellaneous - Chrissy Dia L.PGonzaloNGonzalo - 04/29/2014 11:08 AM CDT Adult Fisher Scallop Intake/History Adult Fisher Scallop Intake/History Entered On: 04/29/2014 11:11 CDT Performed On: 04/29/2014 11:08 CDT by CHRISSY DIA LPN Intake Chief Complaint : 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 Temperature Core : 36.3 DegC(Converted to: [...] 2.04 Body Mass Index : 33.98 kg/m2 CHRISSY IDA LPN - 04/29/2014 11:08 CDT General Info Information Given By : Patient Languages : Swedish Is Patient Female and 13-50 no hysterectomy : Yes Status : Patient denies Are you ? : No LAWSONCHRISSY WILLARD Dusty TAPPER BALANCE WHEEL SCREW HOLE - 04/29/2014 11:08 CDT Subjective Pain Symptoms : No CHRISSY DIA TAPPER BALANCE WHEEL SCREW HOLE - 04/29/2014 11:08 CDT Dependent Habits Tobacco Use/Currently Using : No Exposure to Tobacco Smoke : Care provider denies smoking in home, Other: former smoker Smoking Status : Never smoker LAWSONCHRISSY WILLARD Dusty [facility] - 04/29/2014 11:08 CDT Tobacco Use Grid Last Use : never LAWSONRADHACHRISSY VOGT TAPPER BALANCE WHEEL SCREW HOLE - 04/29/2014 11:08 CDT Caffeine Use Grid Caffeine Use : Current Type : Soft drinks Frequency : Occasionally CHRISSY DIA [facility] - 04/29/2014 11:08 CDT Recreational Drug Use Grid Drug Use : None CHRISSY DIA [employer]PER [employer] WHEEL SCREW HOLE - 04/29/2014 11:08 CDT [facility]: [facility] Document Id: [id number] CDT!42 documented in this encounter Plan of [...] Results Urine Microscopic (04/29/2014 11:53 AM CDT) [facility] gist Method Time Signature HXUR [...] (ABNORMAL) Urinalysis, Routine (04/29/2014 11:53 AM CDT) [facility] gist Method Time Signature Source Clean Void POWERCHART Urine HXUr Color Yellow POWERCHART Clarity Clear POWERCHART Glucose Negative MGDL POWERCHART HXBILIRUBIN Negative POWERCHART Ketones, QL(U) Negative MGDL POWERCHART Specific 1.020 POWERCHART [place], POCT, U pH, POCT, Urine 6.5 POWERCHART [...]
--- OUTSIDE RECORDS SUMMARY | 2022-07-20 10:53 | XMS_ITS | Encounter Summary ---
:1995 Author Organization [facility] Address [address] [place] [address] Care Team Providers Name Role Phone Unavailable Primary Care Provider Unavailable Encounter Details Date Type Department Care Team Description 09/17/2016 Hospital Encounter HX [facility] [place] Francisca Saucedo, COMMANDER POLICE RESERVES, C.N.P. [address] [place], [place] [address] (Wo rk) Social History [...] How often do you attend mormonism or uatsdin Never 10/23/2020 services? 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 All questions were answered. She left in no acute distress. A total of 25 minutes with 20 minutes used for counseling and coordination of care. Ordered: OV Est Pt Level 4 - 41916 - 25 min Vaginitis Panel, DNA (Genital) Electronically Signed By: HOLLEY SAUCEDO CHILDREN'S PROGRAM COORDINATOR On: 09/27/2016 08:44 AM Source: [facility] POWERCHART Document Id: [id number] HEN AIDE documented in this encounter Miscellaneous Notes Miscellaneous - Holley Saucedo, R.N. - 09/18/2016 8:22 AM CST Results Notification Document Contains Addenda Addendum by DORIAN DAVENPORT LPN on September 18, 2016 09:10:06 KITCHEN AIDE Patient notified. From: HOLLEY SAUCEDO CHILDREN'S PROGRAM COORDINATOR To: [place] Family Medicine Nurse Mitesh; Sent: 09/18/2016 08:22:08 KITCHEN AIDE Show up: 09/18/2016 08:22:00 KITCHEN AIDE Subject: Results Notification Please call patient and let her know that her vaginal swab was positive for both a fungal and bacterial component. I sent a script for Flagyl twice daily to [facility]. She can also get a OTC topical fungal medication to treat the fungal component. Thanks! Results: Date Result Type Ind Result Name MBO POS Vaginosis Panel, DNA Source: [employer] Document Id: [id number] Electronically signed by Conversion, [facility] Civil Rights Investigator [id number] at 01/25/2017 12:22 AM CDT Miscellgustabo - Holley Saucedo R.N. - 09/18/2016 8:21 AM CST Positive Vaginosis Panel From: HOLLEY SAUCEDO CHILDREN'S PROGRAM COORDINATOR Sent: 09/18/2016 08:21:01 KITCHEN AIDE ! Show up: 09/18/2016 08:19:00 KITCHEN AIDE Subject: Positive Vaginosis Panel Please call patient and let her know that her vaginal swab was positive for both a fungal and bacterial component. I sent a script for Flagyl twice daily to [facility]. She can also get a OTC topical fungal medication to treat the fungal component. Thanks! Results: Date Result Type Ind Result Name MBO POS Vaginosis Panel, DNA Source: [employer] Document Id: [id number] Electronically signed by Conversion, [facility] Civil Rights Investigator [id number] at 01/25/2017 12:22 AM CDT Ramona - Vinnie Lyman L.PGonzaloN. - 09/17/2016 3:07 PM CST Adult Frog Or Oyster Farmworker Intake/History Adult Frog Or Oyster Farmworker Intake/History Entered On: 09/17/2016 15:10 KITCHEN AIDE Performed On: 09/17/2016 15:07 KITCHEN AIDE by VINNIE LYMAN LPN Intake Chief Complaint [...] inch(es)) VINNIE LYMAN LPN - 09/17/2016 15:07 KITCHEN AIDE General Info Languages : Czech Is Patient Female and 13-50 no hysterectomy : Yes Status : Patient denies Are you ? : No VINNIE LYMAN LPN - 09/17/2016 15:07 KITCHEN AIDE Subjective Pain Symptoms : No VINNIE LYMAN LPN - 09/17/2016 15:07 KITCHEN AIDE Dependent Habits Exposure to Tobacco Smoke : Care provider denies smoking in home, Other: former smoker Smoking Status : Former smoker Tobacco 2A : Yes Tobacco Use/Currently Using : No Tobacco Use/Last 30 Days : No Tobacco Use/Last 12 months : No Alcohol Use : Yes VINNIE LYMAN LPN - 09/17/2016 15:07 KITCHEN AIDE Caffeine Use Grid Caffeine Use : Current Type : Soft drinks Frequency : Occasionally VINNIE LYMAN LPN - 09/17/2016 15:07 KITCHEN AIDE Recreational Drug Use Grid Drug Use : None VINNIE LYMAN LPN - 09/17/2016 15:07 KITCHEN AIDE Source: [facility] LuxeraCHART Document Id: [id number] KITCHEN AIDE!38 HEN AIDE documented in this encounter Plan of Treatment Not on filedocumented as of this encounter Procedures Procedure Name Priority Date/Time Associated Diagnosis Comme nts VAGINITIS BATTERY, Routine 09/17/2016 3:30 PM Res ults for this DNA (GENITAL) KITCHEN AIDE procedure are in the results section. documented in this encounter Results (ABNORMAL) VAGINITIS BATTERY, DNA (GENITAL) (09/17/2016 3:30 PM KITCHEN AIDE) Component Value Ref Test Analysis Performed At [facility] Range Method Time Signature HXVaginitis (POSITIVE) POWERCHART Battery, DNA (Genital) HXFinal Trichomonas POWERCHART vaginalis DNA negative HXFinal Gardnerella POWERCHART vaginalis DNA positive HXFinal Veronica species POWERCHART DNA positive HXFinal Reference: POWERCHART Negative Specimen (Source) Anatomical Collection Method Collection Time Re ceived Time Location / / Volume Laterality Vagina 09/17/2016 3:30 PM KITCHEN AIDE Holley Saucedo APRN, C.N.P. LAB HISTORICAL ORDERS Performing Organization Address City/State/ZIP Code Phon e Number POWERCHART documented in this encounter Visit Diagnoses Not on filedocumented in this encounter
--- OUTSIDE RECORDS SUMMARY | 2022-07-20 10:54 | XMS_ITS | Encounter Summary ---
:1995 Author Organization [facility] Address [address] [place] [address] Care Team Providers Name Role Phone Unavailable Primary Care Provider Unavailable Encounter Details Date Type Department Care Team Description 10/24/2013 Hospital [facility] Provider, Histori hernandez Social History [...] How often do you attend presybeterian or episcopalian Never 10/23/2020 services? 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 - 10/24/2013 1:15 PM CDT [id number] Quick Note: Discussed at visit. Source: [facility] RWHXTRANSXSYS Document Id: [id number] documented in this encounter Plan of Treatment Not on filedocumented as of this encounter Visit Diagnoses Not on filedocumented in this encounter
--- OUTSIDE RECORDS SUMMARY | 2022-07-20 10:54 | XMS_ITS | Encounter Summary ---
:1995 Author Organization [facility] Address [address] [place] [address] Care Team Providers Name Role Phone Unavailable Primary Care Provider Unavailable Encounter Details Date Type Department Care Team Description 12/18/2013 Hospital Encounter HX [facility] Iva Sam, SHAYE N, C.N.P. [address] [place], [place] [phone] (Wo rk) Social History [...] often do you attend latter day or muslim Never 10/23/2020 services? 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 - 12/20/2013 9:22 AM CDT Results Notification Document Contains Addenda Addendum by ANA KEYES LPN on 21 Dec 2013 16:07:01 CDT seen and notified at office visit today Addendum by JOY JOHNSON LPN on 20 Dec 2013 09:27:59 CDT left generic message for pt to call back. From: IVA GUERRERO NURSING EXECUTIVE Sent: 12/20/2013 09:22:16 CDT ! Show up: 12/20/2013 09:22:16 CDT Subject: Results Notification Actions: Notify patient of results Reminder Comments: please notify of positive results. Results: Date Result Type Ind Result Name MBO POS Strep B by PCR Source: [facility] POWERCHART Document Id: [id number] Electronically signed by Conversion, [facility] Commercial Carpet Installer [id number] at 01/11/2017 4:24 AM CDT Miscellaneous - Ana Dhillon L.P.NGonzalo - 12/18/2013 3:32 PM CDT Adult Palliative Care Nurse Intake/History Adult Palliative Care Nurse Intake/History Entered On: 12/18/2013 15:33 CDT Performed [...] Information Given By : Patient Languages : Setswana ANA KEYES LPN - 12/18/2013 15:32 CDT Subjective Pain Symptoms : No ANA KEYES LPN - 12/18/2013 15:32 CDT Dependent Habits Tobacco Use/Currently Using : No Exposure to Tobacco Smoke : Care provider denies smoking in home, Other: former smoker Smoking Status : Former smoker ANA KEYES LPN - 12/18/2013 15:32 CDT Tobacco Use Grid Last Use : never ANA KEYES LPN - 12/18/2013 15:32 CDT Caffeine Use Grid Caffeine Use : Current Type : Soft drinks Frequency : Occasionally ANA KEYES LPN - 12/18/2013 15:32 CDT Recreational Drug Use Grid Drug Use : None ANA KEYES LPN - 12/18/2013 15:32 CDT Source: [facility] POWERCHART Document Id: [id number] CDT!29 documented in this encounter Plan of Treatment Not on filedocumented as of this encounter Procedures Procedure Name Priority Date/Time Associated Diagnosis Comme nts HXSTREP GROUP B BY Routine 12/18/2013 4:00 PM Res ults for this PCR CDT procedure are i n the results section. documented in this encounter Results (ABNORMAL) HXSTREP GROUP B BY PCR (12/18/2013 4:00 PM CDT) [facility] gist Method Time Signature HXStrep Group (POSITIVE) POWERCHART B by PCR HXFinal Positive for POWERCHART Group B Strep by PCR. Specimen (Source) Anatomical Collection Method Collection Time Re ceived Time Location / / Volume Laterality Vaginal/Rectum 12/18/2013 4:00 PM CDT Iva Guerrero APRN C.N.P. LAB HISTORICAL ORDERS Performing Organization Address City/State/ZIP Code Phon e Number POWERCHART documented in this encounter Visit Diagnoses Not on filedocumented in this encounter
--- OUTSIDE RECORDS SUMMARY | 2022-07-20 10:54 | XMS_ITS | Encounter Summary ---
:1995 Author Organization [facility] Address [address] [place] [address] Care Team Providers Name Role Phone Unavailable Primary Care Provider Unavailable Encounter Details Date Type Department Care Team Description 08/29/2013 Hospital Encounter [facility] Bridget Saldaña M.D. Social History Tobacco [...] How often do you attend episcopal or hinduism Never 10/23/2020 services? 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 - 08/29/2013 9:45 AM CST [id number] No concerns. JF [facility]: [facility] Document Id: [id number] Electronically signed by Conversion, [facility] Gum Puller [id number] at 01/09/2017 2:31 PM CDT Bridget Harrington M.D. - 08/29/2013 9:45 AM CST [id number] No complaints. S/p suzette scan. Awaiting us results. Source: [facility] Document Id: [id number] Electronically signed by Conversion, [facility] Gum Puller [id number] at 01/09/2017 2:31 PM CDT documented in this encounter Plan of Treatment Not on filedocumented as of this encounter Visit Diagnoses Not on filedocumented in this encounter
--- OUTSIDE RECORDS SUMMARY | 2022-07-20 10:54 | XMS_ITS | Encounter Summary ---
:1995 Author Organization [facility] Address [address] [place] [address] Care Team Providers Name Role Phone Unavailable Primary Care Provider Unavailable Encounter Details Date Type Department Care Team Description 10/24/2013 Hospital Encounter HX NO MAPPING Iva Guerrero APRN, C.N.P. [address] [phone] (Wo rk) Social History Tobacco Use [...] How often do you attend confucianist or taoist Never 10/23/2020 services? 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
--- OUTSIDE RECORDS SUMMARY | 2022-07-20 10:54 | XMS_ITS | Encounter Summary ---
:1995 Author Organization [facility] Address [address] [place] [address] Care Team Providers Name Role Phone Unavailable Primary Care Provider Unavailable Encounter Details Date Type Department Care Team Description 10/24/2013 Hospital Encounter HX NO MAPPING Iva Guerrero APRN, C.N.P. [address] [phone] (Wo rk) Social History Tobacco Use [...] How often do you attend samaritan or evangelical Never 10/23/2020 services? 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
--- OUTSIDE RECORDS SUMMARY | 2022-07-20 10:54 | XMS_ITS | Encounter Summary ---
:1995 Author Organization [facility] Address [address] [place] [address] Care Team Providers Name Role Phone Unavailable Primary Care Provider Unavailable Encounter Details Date Type Department Care Team Description 12/21/2013 Hospital Encounter HX [facility] Dusty Dodd D.O. [address] [place] [address] (Wo rk) Social History Tobacco Use Types [...] How often do you attend advent or moravian Never 10/23/2020 services? 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 Last Filed [...] 1:40 PM CD T Growth Chart: [facility] (Girls, 2-20 Years) documented in [...] 12/21/2013 2:06 PM CDT Ambulatory Patient Summary [facility] [address], [address] [place], [place] [id number] Visit Information Name: DHIRAJ LANDA [facility] Number: [id number] Current Date: 12/21/2013 14:06:34 Physicians Attending Provider: MK ROCK MD Primary Care Provider: PCP, UNASSIGNED - RW DHIRAJ LANDAE has been given the following [...] nasal (Flonase 0.05 mg/inh nasal spray) 2 [place](s), Nasal, two times a day fluticasone-salmeterol (Advair [...] detail needed. Your Goals/Additional instructions: Source: [facility] POWERCHART Document Id: [id number] Miscellaneous - Mk Rock D.O. - 12/21/2013 2:06 PM CDT Ambulatory Discharge Medication List [facility] [address], [address] [place], [place] [phone] Visit Information Name: DHIRAJ LANDA [facility] Number: [id number] Visit Date: 12/21/2013 14:06:32 [...] nasal (Flonase 0.05 mg/inh nasal spray) 2 [place]der[place](s), Nasal, two times a day fluticasone-salmeterol (Advair [...] Signed On:21-DEC-2013 14:06:24 Additional Information: Source: 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 HealthCHART Document Id: [id number] CDT!29 Miscellaneous - Nena Ocampo LGonzaloP.N. - 12/20/2013 4:11 PM CDT Patient returned call on Lab update From: NENA OCAMPO LPN ( Obstetrics/Gynecology Nurse) Sent: 12/20/2013 16:11:52 CDT Subject: Patient returned call on Lab update Patient returned call on Lab update. Notified of positive Group B strep. Source: [facility] POWERCHART Document Id: [id number] documented in this encounter Plan of Treatment Not on filedocumented as of this encounter Visit Diagnoses Not on filedocumented in this encounter
--- OUTSIDE RECORDS SUMMARY | 2022-07-20 10:54 | XMS_ITS | Encounter Summary ---
:1995 Author Organization [facility] Address [address] [place] [address] Care Team Providers Name Role Phone Unavailable Primary Care Provider Unavailable Encounter Details Date Type Department Care Team Description 11/21/2013 Hospital Encounter HX [facility] Bridget Saldaña M.D. Social [...] How often do you attend synagogue or judaism Never 10/23/2020 services? 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 Last [...] 11/21/2013 1:47 PM CD T Growth Chart: [facility] (Girls, 2-20 Years) documented in this encounter [...] Mass Index : 31.86 kg/m2 JOY JOHNSON [facility] - 11/21/2013 13:47 CDT Dependent Habits Tobacco Use/Currently Using : No Exposure to Tobacco Smoke : Care provider denies smoking in home Smoking Status : Never smoker JOY JOHNSON [facility] - 11/21/2013 13:47 CDT Tobacco Use Grid Last Use : never JOY JOHNSON [facility] - 11/21/2013 13:47 CDT Alcohol Use : No JOY JOHNSON [facility] - 11/21/2013 13:47 CDT Caffeine Use Grid Caffeine Use : Current Type : Soft drinks Frequency : Occasionally JOY JOHNSON [facility] - 11/21/2013 13:47 CDT Recreational Drug Use Grid Drug Use : None SANTI JOHNSONLLDAISY Baker [facility] - 11/21/2013 13:47 CDT Psychosocial Domestic Abuse Concerns : None JOY JOHNSON [facility] - 11/21/2013 13:47 CDT [facility] Document Id: [id number] CDT!27 documented in this encounter Miscellaneous Notes [...] gonorrhea and chlamydia culture. THX SAT Source: [facility] Document Id: [id number] Miscellaneous - Bridget Villa M.D. - 11/21/2013 [...] sent to her pharmacy. MORGAN, JONAH Source: [facility] [employer] Document Id: [id number] Telephone Encounter - Bridget Villa M.D. - [...] phone number ( ) Source: [facility] [employer] Document Id: [id number] Electronically signed by Stuart [facility] Spanish Speaking Babysitter [id number] at 01/11/2017 7:39 AM CDT Miscellaneous - Bridget Villa M.D. - 11/21/2013 2:28 PM CDT Ambulatory Patient Summary [facility] [address], [address] [place], [place] [phone] Visit Information Name: DHIRAJ LANDA [facility] Number: [id number] Current Date: 11/21/2013 14:28:45 Physicians [...] nasal (Flonase 0.05 mg/inh nasal spray) 2 [place](s), Nasal, two times a day fluticasone-salmeterol (Advair [...] appointment detail needed. Your Goals/Additional instructions: Source: [facility] POWERCHART Document Id: [id number] Miscellaneous - Bridget Villa M.D. - 11/21/2013 2:28 PM CDT Ambulatory Discharge Medication List [facility] [address], [address] [place], [place] [phone] Visit Information Name: DHIRAJ LANDA [facility] Number: [id number] Visit Date: 11/21/2013 14:28:43 Attending [...] nasal (Flonase 0.05 mg/inh nasal spray) 2 [place](s), Nasal, two times a day fluticasone-salmeterol (Advair [...] MD Signed On:21-NOV-2013 14:28:39 Additional Information: Source: [facility] POWERCHART Document Id: [id number] documented in this encounter Plan of Treatment [...] athologist Signature HXN gonor Amp Negative POWERCHART DNA-[place] Specimen (Source) Anatomical Collection Method Collection Time Re ceived Time Location / / Volume Laterality 11/21/2013 2:24 PM CDT Narrative POWERCHART - 11/22/2013 7:55 PM CDT Test Performed by: [address] [address] Associate Professor Of English: Israel meeks III, M.D. Bridget Villa M.D. LAB HISTORICAL ORDERS Performing Organization Address City/State/ZIP Code Phon e Number POWERCHART HX-N gonor Amp Src (11/21/2013 2:24 PM CDT) athologist Signature HXN gonor Amp cx POWERCHART Src-[place] Specimen (Source) Anatomical Collection Method Collection Time Re ceived Time Location / / Volume Laterality 11/21/2013 2:24 PM CDT Bridget Villa M.D. LAB HISTORICAL ORDERS Performing Organization Address City/State/ZIP Code Phon e Number POWERCHART HX-C trach Amp RNA (11/21/2013 2:24 PM CDT) [facility] gist Method Time Signature Chlamydia Negative POWERCHART trachomatis amplified RNA Specimen (Source) Anatomical Collection Method Collection Time Re ceived Time Location / / Volume Laterality 11/21/2013 2:24 PM CDT Bridget Villa M.D. LAB HISTORICAL ORDERS Performing Organization Address City/[facility]/ZIP Code Phon e Number POWERCHART HX-C trach Amp Src (11/21/2013 2:24 PM CDT) athologist Signature HXC trach Amp cx [facility] Specimen (Source) Anatomical Collection Method Collection Time Re ceived Time Location / / Volume Laterality 11/21/2013 2:24 PM CDT Bridget Villa M.D. LAB HISTORICAL ORDERS Performing Organization Address City/[facility] [place] Phon e Number POWERCHART (ABNORMAL) Wet Prep [...] GENERAL O RDERABLES Performing Organization Address City/State/ZIP [facility] Phon e Number POWERCHART documented in this encounter Visit Diagnoses Not on filedocumented in this encounter
--- OUTSIDE RECORDS SUMMARY | 2022-07-20 10:54 | XMS_ITS | Encounter Summary ---
:1995 Author Organization [facility] Address [address] [place] [address] Care Team Providers Name Role Phone Unavailable Primary Care Provider Unavailable Encounter Details Date Type Department Care Team Description 10/24/2013 Hospital Encounter [facility]X [facility] Iva Sam, SHAYE N, C.N.P. [address] [place], [place] [phone] (Wo rk) Social History [...] How often do you attend yarsani or voodoo Never 10/23/2020 services? 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 - 10/24/2013 2:05 PM CDT [id number] Quick Note: notified Source: [facility] Document Id: [id number] Conversion, Historical Provider Ser - 10/24/2013 2:05 PM CDT [id number] No concerns at this time. Source: [facility] Document Id: [id number] Iva Guerrero C.N.P., R.N. - 10/24/2013 2:05 PM CDT [id number] Feels palpitations off and on. 1-2 times [...] appt.: Yes Car Seat Safety: Yes Source: [facility] Document Id: [id number] documented in this encounter Plan of Treatment Not on filedocumented as of this encounter Visit Diagnoses Not on filedocumented in this encounter
--- OUTSIDE RECORDS SUMMARY | 2022-07-20 10:54 | XMS_ITS | Encounter Summary ---
:1995 Author Organization [facility] Address [address] [place] [address] Care Team Providers Name Role Phone Unavailable Primary Care Provider Unavailable Encounter Details Date Type Department Care Team Description 12/02/2013 Hospital En[facility] Prisca Villa M.D. Social History [...] How often do you attend pentecostal or sabianism Never 10/23/2020 services? 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 - 12/02/2013 8:06 PM CDT Hospital Discharge Instructions [facility] [address] [place] [address] Patient Discharge Instructions Name: RAYMONDLIZY WRIGHTALYN PAWEL Current Date: 12/02/2013 20:06:43 : 1995 12:00 AM [facility] Number: [id number] Patient Address: [address] [place] [phone] Patient Primary Care Provider: Name: PCP, UNASSIGNED - RW Phone: Discharge Diagnosis: [facility] [place] would like to thank you for allowing [...] nasal (Flonase 0.05 mg/inh nasal spray) 2 [place](s), Nasal, two times a day fluticasone-salmeterol (Advair [...] Date Time Location Reason Provider 12/05/2013 13:00 [facility] 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 ?? [id number] [place] [address]. All rights reserved. This information is not intended as a substitute for professional medical care. Always follow your healthcare professional's instructions. [id number] PREMATURE LABOR Premature Labor (also called Pre-term [...] you don't know what it is ?? 8328-6519 [place] [address]. All rights reserved. This information is not intended as a substitute for professional medical care. Always follow your healthcare professional's instructions. [id number] FALSE LABOR [term ] If your is [...] are having false or true labor ?? 1925-1899 [facility], [address] [place] [address], [place] [address]. All rights reserved. This information is not intended as a substitute for professional medical care. Always follow your healthcare professional's instructions. This document has images extracted. Please consider using [employer] for all your patient education needs. Source: [facility] POWERCHART Document Id: [id number] Meghann Trejo R.N. - 12/02/2013 8:06 PM CDT Hospital Discharge Medication List [facility] [address] [place] [address] Discharge Medication List Name: DHIRAJ LANDA Current Date: 12/02/2013 20:06:42 : 1995 12:00 AM [facility] Number: [id number] Patient Address: [address] [place] [phone] Patient Primary Care Provider: Name: PCP, UNASSIGNED - RW Phone: Discharge Diagnosis: [facility] in [place] would like to thank you for allowing [...] nasal (Flonase 0.05 mg/inh nasal spray) 2 [place](s), Nasal, two times a day fluticasone-salmeterol (Advair [...] Comment: Electronically Signed By: Signed On: Source: [facility] POWERCHART Document Id: [id number] documented in this encounter Medications at Time [...] 155 +qualifying accelerations no decels +moderate variability [place]: rare uterine contractions A: Category 1 tracing Plan: 1. Discharge Home 2. Precautions Discussed 3. Follow up for scheduled appointment Electronically Signed By: BRIDGET VILLA MD On: 12/02/2013 07:51 PM Source: [facility] POWERCHART Document Id: [id number] documented in this encounter Nursing Notes Meghann [...] : Private vehicle Accompanied By : MEGHANN Allen RN - 12/02/2013 20:01 CDT Education General [...] TREJO RN - 12/02/2013 20:01 CDT [facility] Document Id: [id number] CDT!3 Meghann Trejo R.N. - 12/02/2013 7:48 [...] TREJO RN - 12/02/2013 20:32 CDT Source: [facility] [employer] Document Id: [id number] CDT!3 Meghann Trejo R.N. - 12/02/2013 7:30 [...] TREJO RN - 12/02/2013 20:32 CDT Source: [employer] Document Id: [id number] CDT!3 Meghann Trejo RYamileth. - 12/02/2013 7:10 [...] TREJO RN - 12/02/2013 20:19 CDT Source: [employer] Document Id: [id number] CDT!4 documented in this encounter Miscellaneous Notes Miscellaneous - Meghann Trejo, RGonzaloN. - 12/02/2013 8:07 PM CDT Hospital Patient Education The following Patient Education Materials have been given to the patient: Patient Education Materials: Ambulatory PREMATURE LABOR FALSE LABOR Prescription Clerk Lenses Kick Counts Understanding Preeclampsia Ambulatory [id number] PREMATURE LABOR Premature Labor (also called Pre-term [...] you don't know what it is ?? 2632-0223 [employer], [address] [place] [address], [place] [address]. All rights reserved. This information is not intended as a substitute for professional medical care. Always follow your healthcare professional's instructions. [id number] FALSE LABOR [term ] If your is [...] are having false or true labor ?? 2992-3848 [facility], [address] [place] [address]. All rights reserved. This information is not intended as a substitute for professional medical care. Always follow your healthcare professional's instructions. Prescription Clerk Lenses [address] Kick Counts Its normal to worry about [...] felt your baby move all day. ?? 1441-7313 [facility], [address] [place] [address]. All rights reserved. This information is not intended as a substitute for professional medical care. Always follow your healthcare professional's instructions. [address] Understanding Preeclampsia Preeclampsia is a problem that [...] preeclampsia also will go away soon. ?? 1358-1561 [employer], [address] [place] [address]. All rights reserved. This information is not intended as a substitute for professional medical care. Always follow your healthcare professional's instructions. This document has images extracted. Please consider using [employer] for all your patient education needs. Source: [facility] POWERCHART Document Id: [id number] documented in this encounter Plan of Treatment Not on filedocumented as of this encounter Visit Diagnoses Not on filedocumented in this encounter
--- OUTSIDE RECORDS SUMMARY | 2022-07-20 10:54 | XMS_ITS | Encounter Summary ---
:1995 Author Organization [facility] Address [address] [place] [address] Care Team Providers Name Role Phone Unavailable Primary Care Provider Unavailable Encounter Details Date Type Department Care Team Description 11/07/2013 Hospital Encounter HX [facility] Bridget Saldaña M.D. 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 - 11/07/2013 1:15 PM CDT [id number] No concerns. JF Source: [facility] Document Id: [id number] Electronically signed by Conversion, [facility] Production Counter [id number] at 01/09/2017 6:55 PM CDT Bridget Harrington M.D. - 11/07/2013 1:15 PM CDT [id number] kick counts reviewed. Patient reports >10 movements per hour. [facility] Document Id: [id number] Electronically signed by Conversion, [facility] Production Counter [id number] at 01/09/2017 6:55 PM CDT documented in this encounter Plan of Treatment Not on filedocumented as of this encounter Visit Diagnoses Not on filedocumented in this encounter
--- OUTSIDE RECORDS SUMMARY | 2022-07-20 10:54 | XMS_ITS | Encounter Summary ---
:1995 Author Organization [facility] Address [address] [place] [address] Care Team Providers Name Role Phone Unavailable Primary Care Provider Unavailable Encounter Details Date Type Department Care Team Description 09/26/2013 Hospital Encounter [facility] Bridget Saldaña M.D. Social History Tobacco Use [...] How often do you attend cheondoism or pentecostalism Never 10/23/2020 services? 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 No concerns. TLM Source: [facility] Document Id: [id number] Electronically signed by Conversion, [facility] Circuit Breaker Supervisor [id number] at 01/09/2017 3:26 PM CDT Bridget Harrington M.D. - 09/26/2013 3:00 PM CST [id number] Gct/cbc today. F/up scan next visit. C/o constipation, fiber, exercise, colace prn. Source: [facility] Document Id: [id number] Electronically signed by Conversion, [facility] Circuit Breaker Supervisor [id number] at 01/09/2017 3:26 PM CDT documented in this encounter Miscellaneous Notes Miscellaneous - Bridget Harrington M.D. - 09/26/2013 3:00 PM CST [id number] Carly Joseph [id number] [facility] [id number] September 27, 2013 Dear Ms. Joseph: I am writing to inform you the results of the laboratory tests you had done during your recent visitto the clinic. Your results included : your glucose and cbc were both normal. It was a pleasure to see you in the clinic. If you have any further questions or problems, please contact our office at [phone]. Sincerely, Dr Bridget Harrington MD Dept. TAPE CALENDER [facility] [place] Source: [id number] Document Id: [id number] Electronically signed by Conversion, [facility] Circuit Breaker Supervisor [id number] at 01/09/2017 3:26 PM CDT documented in this encounter Plan of Treatment Not on filedocumented as of this encounter Procedures Procedure Name Priority Date/Time Associated Diagnosis Comme nts GLUC ROBIN/GLUCOSE Routine 09/26/2013 5:02 PM Resul ts for this FARM OPERATIONS TECHNICAL DIRECTOR procedure are i n the results section. documented in this encounter Results Gluc Robin/Glucose (09/26/2013 5:02 PM FARM OPERATIONS TECHNICAL DIRECTOR) P athologist Signature HXGluc [address] [facility] Specimen (Source) Anatomical Collection Method Collection Time Re ceived Time Location / / Volume Laterality 09/26/2013 5:02 PM FARM OPERATIONS TECHNICAL DIRECTOR Historical Provider LAB BLOOD ADD-ON Performing Organization Address City/State/ZIP Code Phon e Number [facility] documented in this encounter Visit Diagnoses Not on filedocumented in this encounter
--- OUTSIDE RECORDS SUMMARY | 2022-07-20 10:54 | XMS_ITS | Encounter Summary ---
:1995 Author Organization [facility] Address [address] [place] [id number] Care Team Providers Name Role Phone Unavailable Primary Care Provider Unavailable Encounter Details Date Type Department Care Team Description 12/26/2013 - Hospital Encounter HX [facility] Carlee Alfonso 12/29/2013 ZHEN Baker M.D. [address] [place] [id number] Social History Tobacco Use Types Packs/Day [...] How often do you attend uatsdin or druze Never 10/23/2020 services? 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 - 12/29/2013 12:08 PM CDT Hospital Discharge Instructions [address] [address] Patient Discharge Instructions Name: DHIRAJ JOSEPH Current Date: 12/29/2013 12:08:48 : 1995 12:00 AM [facility] Number: [id number] Patient Address: [address] [place] [phone] Patient Primary Care Provider: Name: PCP, UNASSIGNED - Phone: Discharge Diagnosis: [facility] would like to thank you for [...] nasal (Flonase 0.05 mg/inh nasal spray) 2 [place](s), Nasal, two times a day fluticasone-salmeterol (Advair [...] Date Time Location Reason Provider 01/09/2014 13:15 [facility] INTERNATIONAL SPECIALIST 39 wk ob check Bridget Harrington MD 02/08/2014 10:15 [facility] INTERNATIONAL SPECIALIST 6 week PP Abe ESPINOZA, Maureen Madrid, DHIRAJ JOSEPH , have received the attached patient education materials/instructionsand have verbalized understanding: Patient Signature Date Time Care Provider Signature Date Time [address]161 After a Vaginal After having a baby, [...] or pain in the lower leg. ?? [id number] [facility], [address] [place] [address], [place] [address]. All rights reserved. This information is not intended as a substitute for professional medical care. Always follow your healthcare professional's instructions. This document has images extracted. Please consider using [employer] for all your patient education needs. Source: [facility] POWERCHART Document Id: [id number] Lexii Parkinson R.N. - 12/29/2013 12:08 PM CDT Hospital Discharge Medication List [facility] [address] [place] [address] Discharge Medication List Name: DHIRAJ JOSEPH Current Date: 12/29/2013 12:08:47 : 1995 12:00 AM [facility] Number: [id number] Patient Address: [address] [place] [phone] Patient Primary Care Provider: Name: PCP, UNASSIGNED - RW Phone: Discharge Diagnosis: [facility] in [place] would like to thank you for allowing [...] nasal (Flonase 0.05 mg/inh nasal spray) 2 [place](s), Nasal, two times a day fluticasone-salmeterol (Advair [...] CARLEE MADRID MD Signed On:29-DEC-2013 07:20:21 Source: [facility] POWERCHART Document Id: [id number] Carlee Madrid M.D. - 12/29/2013 7:11 AM [...] counts correct. No sponges retained. Excellent hemostasis. LJF=175. Placenta to pathology for prolonged rupture and [...] distress Uterus: non tender at U-1, firm Standards Engineer: minimal bleeding Extr: warm no edema, non [...] MADRID MD On: 12/29/2013 07:17 AM Source: [facility] POWERCHART Document Id: [id number] documented in this encounter Medications at Time [...] MADRID MD On: 12/28/2013 08:24 AM Source: [facility] POWERCHART Document Id: [id number] Bridget Harrington M.D. - 12/27/2013 7:04 PM [...] 22.4 x10(9)/L (12/27/13) RDW: 12.7 % (12/27/13) [place] Absolute: 0.72 x10(9)/L (12/26/13) [place] Absolute: 0.11 [...] HARRINGTON MD On: 12/27/2013 07:07 PM Source: [facility] POWERCHART Document Id: [id number] documented in this encounter H&P Notes Carlee [...] EFM 155 +qa no decels +mod variability [place]: q4 minutes A: Early Term SROM, Cat [...] decels, + accelerations - catagory 1 tracing [place] - contractions every 2-5 minutes Cervix -6/80%/0 [...] decels, + accelerations - catagory 1 tracing [place] - contractions every 2-6 minutes Cervix -deferred [...] MADRID MD On: 12/26/2013 04:18 PM Source: [facility] POWERCHART Document Id: [id number] Lulu Richardson, R.N. - 12/26/2013 4:04 PM [...] Preferred Communication Mode : Verbal Languages : Angolan Last Food Intake Date & Time : [...] CARLEE MADRID MD Exercise induced (SNOMED CT :008874332 ) Name of Problem: ; Onset Date: 06/06/2013 ; Recorder: JOY JOHNSON LPN; Confirmation: Confirmed ; Classification: Medical ; Code: 353011886 ; Last Updated: 11/20/2013 8:42 CDT ; Life Cycle Status: Active ; Responsible Provider: BRIDGET HARRINGTON MD; Vocabulary: SNOMED CT Supervision of Normal First (ICD-9-CM :V22.0 ) Name of Problem: Supervision of Normal First ; Onset Date: 06/06/2013 ; Confirmation: Confirmed ; Classification: Medical ; Code: V22.0 ; Contributor System: [facility]_HX_[facility]_UPLOAD ; Last Updated: 11/10/2013 14:41 CDT [...] IV fentanyl before epidural Delivery Plan : Tie Cutter does not wish to cut cord Feeding [...] Psychosocial Support Person's Name : Swapna Support Person/Tie Cutter Relationship to Pt : Mother Other Support People : Jason Father of Baby Involved? : Yes Pain Symptoms : No Domestic Abuse Concerns : None Concerns About Family Members at Home : No Emotional Support Available : Yes Chronic/Terminal Illness Freq Visits : No Financial Concerns Regarding Hospitalization/Discharge : No Behavioral Health Screen/Safety Assmt : Yes Coping : Effective [employer] Preference : Unknown LULU RICHARDSON RN - 12/26/2013 16:04 CDT Advance Directive Advanced Directives : No LULU RICHARDSON RN - 12/26/2013 16:04 CDT Educ Needs Patient/Family Education Needs : Medications, Pain management, Plan of care LULU RICHARDSON RN - 12/26/2013 16:04 CDT Learning Style Preference Adult Grid Patient : Demonstration, Verbal explanation Family : None LULU RICHARDSON [facility] 12/26/2013 16:04 CDT General Level of Consciousness : Alert Orientation : Oriented x 3 Affect/Behavior : Calm Distress : None Skin Color : Normal for ethnicity Skin Description : Dry Skin Temperature : Warm LULU RICHARDSON [facility] 12/26/2013 16:04 CDT Cardiovascular Heart Rhythm : Regular Edema Assessment : No LULU RICHARDSON [facility] 12/26/2013 16:04 CDT Pulses Grid Radial Pulse, Left : 2+ Normal Radial Pulse, Right : 2+ Normal LULU RICHARDSON [facility] 12/26/2013 16:04 CDT Respiratory Respiratory Pattern : Regular All Lobes Breath Sounds : Clear Respirations : Unlabored Cough : None LULU RICHARDSON [facility] 12/26/2013 16:04 CDT Gastrointestinal Bowel Sounds All Quadrants : Present Abdomen Palpation : Soft Passing Flatus : Yes LULU RICHARDSON [facility] 12/26/2013 16:04 CDT Genitourinary Patient Stated Symptoms : None LULU RICHARDSON - 12/26/2013 16:04 CDT Musculoskeletal Musculoskeletal Patient Stated Symptoms : None LULU RICHARDSON [facility] 12/26/2013 16:04 CDT Integumentary Integumentary Patient Stated Symptoms : None Skin Integrity : Intact Mucous Membrane Color : [place] Mucous Membrane Description : Moist Skin Color : Normal for ethnicity Skin Description : Dry Skin Temperature : Warm LULU RICHARDSON [facility] 12/26/2013 16:04 CDT Neurological Clonus : Not present Extremity Movement : Equal Gait : Steady LULU RICHARDSON - 12/26/2013 16:04 CDT Left Knee Reflex Left Knee : 2+ Right Knee : 2+ LULU RICHARDSON [facility] 12/26/2013 16:04 CDT Peripheral IV Peripheral [...] RICHARDSON RN - 12/26/2013 16:04 CDT Source: [facility] Gyft Document Id: [id number] CDT!174 documented in this encounter Procedure Notes Chelsea Saucedo R.N. - 12/28/2013 8:15 PM CDT Peripheral IV [...] CHELSEA SAUCEDO - 12/28/2013 22:28 CDT Source: [facility] Gyft Document Id: [id number] CDT!11 Bridget Harrington M.D. - 12/27/2013 5:21 [...] counts correct. No sponges retained. Excellent hemostasis. SBG=092. Placenta to pathology for prolonged rupture and episodes of tachycardia. Electronically Signed By: BRIDGET HARRINGTON MD On: 12/27/2013 05:35 PM Modified by and Electronically Signed by: BRIDGET HARRINGTON MD On: 12/27/2013 05:35 PM Source: [facility] Gyft Document Id: [id number] Teresa Alicia, R.N. - 12/27/2013 4:41 AM CDT Urinary Catheter Insertion/Discontinuation Urinary Catheter Insertion/Discontinuation Entered On: 12/27/2013 4:42 CDT Performed On: 12/27/2013 4:41 CDT by TERESA ALICIA RN Urinary Catheter Urinary Catheter Activity Type : Insert Urinary Catheter Insertion Site : Urethral Urinary Catheter Size : 16 Japanese Urinary Catheter Type : Indwelling/Continuous Date/Time Catheter Insertion : 12/27/2013 3:45 CDT Urinary Catheter Balloon Inflation : 10 mL sterile water Urinary Catheter Secured : Tape Urinary Catheter Drainage System : Dependent drainage bag Urinary Catheter Procedure Response : Expected Urinary Catheter Procedure Tolerance : Good TERESA ALICIA RN - 12/27/2013 4:41 CDT Source: [facility] Pulse 8CHART Document Id: [id number] CDT!12 Teresa Alicia R.N. - 12/27/2013 3:00 [...] No complications Intraspinal Flow Control Device : CRYPTOLOGIC TECHNICIAN TECHNICAL TERESA ALICIA RN - 12/27/2013 3:16 CDT Source: [employer] Document Id: [id number] CDT!8 Lulu Richardson R.N. - 12/26/2013 4:33 [...] RICHARDSON RN - 12/26/2013 16:33 CDT Source: [employer] Document Id: [id number] CDT!15 documented in this encounter Nursing Notes Matt Sterling R.N., I.B.C.L.CGonzalo - 12/29/2013 1:30 PM CDT Assessment Assessment Entered On: 12/29/2013 14:33 CDT Performed On: 12/29/2013 13:30 CDT by MATT STERLING machine shop instructor Assessment Indication : Ongoing Assessment Referral : discretion Senior Informatica Etl Developer Needed : No Visit Summary : Professor Of Exercise Science visit on day of discharge. Mom is [...] STERLING RN - 12/29/2013 14:29 CDT Source: [facility] Gyft Document Id: [id number] CDT!31 Chelsea Saucedo R.N. - 12/29/2013 2:00 AM CDT Post Assessment * Post Assessment * Entered On: 12/29/2013 3:42 CDT Performed On: 12/29/2013 2:00 CDT by CHELSEA SAUCEDO Post Assessment * Breast Condition : Soft Nipples : Tender Nipple tenderness location : Bilateral Breast Secretions : Colostrum Breast Management : Hydrogels Feeding Method : Sucking : Latches well [...] Rhythm : Regular Nail Bed Color : [place] Capillary Refill : Less than 2 seconds Edema Assessment : No Skin Color : Normal for ethnicity Skin Description : Normal Skin Temperature : Warm Activity Tolerance : Without distress CHELSEA SAUCEDO - 12/29/2013 3:38 CDT Neurological Neuro Patient Stated Symptoms : None Level of Consciousness : Alert Gait : Steady Swallowing Difficulty/Aspiration Risk : None CHELSEA SAUCEDO 12/29/2013 3:38 CDT Mariangel Coma Eye Opening Response Mariangel : Spontaneously Best Verbal Response Mariangel : Oriented Best Motor Response [place] : Obeys simple commands [place] Coma Score : 15 CHELSEA SAUCEDO 12/29/2013 [...] understanding CHELSEA SAUCEDO 12/29/2013 3:38 CDT Source: [facility] POWERCHART Document Id: [id number] CDT!90 Matt Sterling R.N., I.BGonzaloCGonzaloLGonzaloC. - 12/28/2013 2:30 PM CDT Assessment Assessment Entered On: 12/28/2013 15:58 CDT Performed On: 12/28/2013 14:30 CDT by MATT STERLING RN Assessment Assessment Indication : Consult Referral : discretion Senior Informatica Etl Developer Needed : No Visit Summary : Professor Of Exercise Science visit to review skin care management with colostrum and hydrogels, Give Rx to grandmother for electric pump. L1 at 37 4/7 weeks gestation, apgars 8 and 9, A+,GBS +, SPROM and Pitocin augmentation of labor. 149 minute second stage, , laceration only. Problems Identified - : Late Problems Identified - Mother : [...] Late Infant, Milk Supply - Establishing, behavior, [place], sleep states, Nipple management, hydrogels, Position, cross cradle, Swallowing pattern, Swallowing sound (Comment: Introduced product support consultant role, demonstrated hand expression, assisted with [...] STERLING RN - 12/28/2013 15:51 CDT Source: [facility] POWERCHART Document Id: [id number] CDT!36 Lexii Parkinson R.N. - 12/28/2013 9:30 AM CDT Post Assessment * Post Assessment * Entered On: 12/28/2013 10:37 CDT Performed On: 12/28/2013 9:30 CDT by LEXII REEVES RN Post Partum Assessment * Breast Condition : Tender Breast Management : Hydrogels, Expressed breast milk Infant Feeding Method : Infant Sucking : Latches [...] Rhythm : Regular Nail Bed Color : [place] Capillary Refill : Less than 2 seconds Skin Color : Normal for ethnicity Skin Description : Normal Skin Temperature : Warm Activity Tolerance : Without distress LEXII REEVES RN - 12/29/2013 7:44 CDT Neurological Neuro Patient Stated Symptoms : None Orientation : Oriented x 3 Level of Consciousness : Alert LEXII REEVES RN - 12/29/2013 7:44 CDT Mariangel Coma Eye Opening Response [place] : Spontaneously Best Verbal Response [place] : Oriented Best Motor Response Mariangel : [...] REEVES RN - 12/29/2013 7:44 CDT Source: [facility] POWERCHART Document Id: [id number] CDT!64 Lexii Parkinson R.N. - 12/28/2013 8:20 AM CDT Post Assessment [...] Rhythm : Regular Nail Bed Color : [place] LEXII REEVES RN - 12/28/2013 8:20 CDT Neurological Neuro Patient Stated Symptoms : None Orientation : Oriented x 3 Level of Consciousness : Alert LEXII REEVES RN - 12/28/2013 8:20 CDT [place] Coma Eye Opening Response Mariangel : Spontaneously Best Verbal Response [place] : Oriented Best Motor Response Mariangel : [...] frequently Mobility Krzysztof : No limitations Nutrition Kryzsztof : Excellent Friction and Shear Krzysztof : [...] REEVES RN - 12/28/2013 8:20 CDT Source: [employer] Document Id: [id number] CDT!53 Teresa Alicia RGonzaloNGonzalo - 12/28/2013 6:41 [...] ALICIA RN - 12/28/2013 6:41 CDT Source: [employer] Document Id: [id number] CDT!16 Teresa Alicia R.NGonzalo - 12/28/2013 5:46 [...] ALICIA RN - 12/28/2013 5:46 CDT Source: [employer] Document Id: [id number] CDT!17 Teresa Alicia RGonzaloNGonzalo - 12/28/2013 3:39 [...] ALICIA RN - 12/28/2013 3:39 CDT Source: [employer] Document Id: [id number] CDT!11 Teresa Alicia R.NGonzalo - 12/28/2013 2:31 AM CDT Post Assessment [...] ALICIA RN - 12/28/2013 3:39 CDT Source: [employer] Document Id: [id number] CDT!3 Teresa Alicia R.N. - 12/28/2013 1:30 [...] ALICIA RN - 12/28/2013 1:30 CDT Source: [employer] Document Id: [id number] CDT!15 Teresa Alicia RGonzaloNGonzalo - 12/28/2013 1:24 AM CDT md notification 2030- Dr. Harrington was notified about pt elevated blood pressures and abnormal lab results. Pt denies headache, blurry vision, or right upper quadrant pain. Orders recieved and MD to come and evaluatept at bedside. Electronically Signed By: TERESA ALICIA RN On: 12/28/2013 01:25 AM Source: [employer] Document Id: [id number] Tersea Alicia R.N. - 12/28/2013 12:32 AM CDT [...] ALICIA RN - 12/28/2013 0:34 CDT Source: [employer] Document Id: [id number] CDT!11 Teresa Alicia R.N. - 12/28/2013 12:18 AM CDT PRN Response PRN Response Entered On: 12/28/2013 0:18 CDT Performed On: 12/28/2013 0:18 CDT by TERESA ALICIA RN PRN Medication Effectiveness Evaluation PRN Medication Effective : Yes TERESA ALICIA RN - 12/28/2013 0:18 CDT Source: [employer] Document Id: [id number] CDT!3 Teresa Alicia R.N. - 12/27/2013 11:30 [...] ICU : S1S2 Nail Bed Color : [place] Capillary Refill : Less than 2 seconds [...] ALICIA Samuel ADAMS - 12/27/2013 23:45 CDT [place] Coma Eye Opening Response [place] : Spontaneously Best Verbal Response [place] : Oriented Best Motor Response [place] : Obeys simple commands [place] Coma Score : 15 TERESA ALICIA ANGIE [...] : Yes Values/Beliefs incorporated appropriately : Yes RAVIN, TERESA Samuel ADAMS - 12/27/2013 23:45 CDT Safety Grid Vision, Hearing, Mobility Adequate to Meet Safety Needs : Yes RAVINTERESA RN - 12/27/2013 23:45 CDT Gastrointestinal GI Patient Stated Symptoms : None Abdomen Description : Rounded Abdomen Palpation : Non-Tender, Soft Bowel Sounds All Quadrants : Present RAVIN TERESA Baker RN - 12/27/2013 23:45 CDT Nutrition Eating Difficulties : None Appetite : Good RAVINTERESA GONZAELZ RN - 12/27/2013 23:45 CDT Genitourinary Patient Stated Symptoms : None Urinary Elimination : Voiding, no difficulties Urine Color : Yellow Urine Description : Clear RAVINTERESA RN - 12/27/2013 23:45 CDT Integumentary Integumentary Patient Stated Symptoms : None Skin Integrity : Not intact Mucous Membrane Color : [place] Mucous Membrane Description : Moist Skin Color : Normal for ethnicity Skin Description : Dry Skin Temperature : Warm TERESA ALICIA Samuel ADAMS - 12/27/2013 23:45 CDT Incision/Wound Incision/Wound Care Grid Type : Other: 1st degree laceration Location : Other: perineum RAVINTERESA GONZALEZ RN - 12/27/2013 23:45 CDT Krzysztof Sensory Perception Krzysztof : No impairment Moisture Krzysztof : Rarely moist Activity Krzysztof : Walks frequently Mobility Krzysztof : No limitations Nutrition Krzysztof : Excellent Friction and Shear Krzysztof : No apparent problem Krzysztof Score : 23 TERESA ALICIA - 12/27/2013 23:45 CDT Musculoskeletal Musculoskeletal Patient Stated Symptoms : None TERESA ALICIA - 12/27/2013 23:45 CDT Musculoskeletal Strength Grid Left Upper Extremity Right Upper Extremity Left Lower Extremity Right Lower Extremity Strength : Strong to gravity and resistance Strong to gravity and resistance Strong to gravity and resistance Strong to gravity and resistance TERESA ALICIA - 12/27/2013 23:45 CDT TERESA ALICIA - 12/27/2013 23:45 CDTFTERESA DINERO - 12/27/2013 [...] TERESA ALICIA RN - 12/27/2013 23:45 CDT [facility] Confusion/Disorientation [place] : No [...] Score Hendrich II : 1 TERESA ALICIA - 12/27/2013 23:45 CDT Education Antepartum Education Grid Education Topics : Baby home safety, Medication dosage, route, scheduling, behavior, Normal , Pain management, Nargis-Care, Plan of care, complications, Safety, fall Individuals Taught : Patient Barriers to Learning : None evident Teaching Method : Explanation Teaching Evaluation : Verbalizes understanding TERESA ALICIA RN - 12/27/2013 23:45 CDT Source: [employer] Document Id: [id number] CDT!153 Teresa Alicia R.N. - 12/27/2013 10:26 [...] ALICIA RN - 12/27/2013 22:26 CDT Source: [employer] Document Id: [id number] CDT!9 Teresa Alicia R.N. - 12/27/2013 10:01 [...] ALICIA RN - 12/27/2013 22:01 CDT Source: [employer] Document Id: [id number] CDT!16 Teresa Alicia R.N. - 12/27/2013 9:46 [...] ALICIA RN - 12/27/2013 21:46 CDT Source: [facility] Gyft Document Id: [id number] CDT!14 Teresa Alicia R.N. - 12/27/2013 9:30 [...] ALICIA RN - 12/27/2013 21:37 CDT Source: [facility] Pulse 8CHART Document Id: [id number] CDT!14 Teresa Alicia R.N. - 12/27/2013 7:25 [...] ICU : S1S2 Nail Bed Color : [place] Capillary Refill : Less than 2 seconds [...] TERESA ALICIA RN - 12/27/2013 20:07 CDT [place] Coma Eye Opening Response [place] : Spontaneously Best Verbal Response Mariangel : Oriented Best Motor Response Mariangel : Obeys simple commands [place] Coma Score : 15 TERESA ALICIA RN [...] Color : Yellow Urine Description : Clear TEREAS ALICIA RN - 12/27/2013 20:07 CDT Integumentary Integumentary Patient Stated Symptoms : None Skin Turgor : Elastic Skin Integrity : Not intact Mucous Membrane Color : [place] Mucous Membrane Description : Moist Skin Color [...] to injury warm and pink TERESA ALICIA [facility] - 12/27/2013 20:07 CDT Krzysztof Sensory Perception Krzysztof : No impairment Moisture Krzysztof : Rarely moist Activity Krzysztof : Walks frequently Mobility Krzysztof : No limitations Nutrition Krzysztof : Excellent Friction and Shear Krzysztof : No apparent problem Krzysztof Score : 23 TERESA ALICIA [facility] - 12/27/2013 20:07 CDT Musculoskeletal Musculoskeletal Patient Stated Symptoms : None Activity Tolerance : Without distress TERESA ALICIA [facility] - 12/27/2013 20:07 CDT Musculoskeletal Strength Grid Left Upper Extremity Right Upper Extremity Left Lower Extremity Right Lower Extremity Strength : Strong to gravity and resistance Strong to gravity and resistance Strong to gravity and resistance Strong to gravity and resistance TERESA ALICIA [facility] - 12/27/2013 20:07 CDT TERESA ALICIA [facility] 12/27/2013 20:07 CDTFTERESA DINERO [facility] 12/27/2013 20:07 CDT TERESA ALICIA [facility] 12/27/2013 20:07 CDT Peripheral IV Peripheral IV [...] : , Colostrum, Medication dosage, route, scheduling, behavior, Normal , Nargis-Care, Plan of care, Safety, fall Individuals Taught : Patient Barriers to Learning : None evident Teaching Method : Explanation Teaching Evaluation : Verbalizes understanding TERESA ALICIA RN - 12/27/2013 20:07 CDT Source: [facility] Gyft Document Id: [id number] CDT!161 Laurie Vaughn R.N. - 12/27/2013 6:30 PM CDT Post Assessment * Post Assessment * Entered On: 12/27/2013 19:57 CDT Performed On: 12/27/2013 18:30 CDT by LAURIE VAUGHN RN Post Partum Assessment * Fundus : Even Fundus condition : Firm Fundus position : Midline Post Lochia : Lochia Rubra Excessive Lochia : Moderate Perineal Interventions : Ice pack LAURIE VAUGHN RN - 12/27/2013 19:57 CDT Psycho/Emotional Pain Symptoms : No LAURIE VAUGHN RN - 12/27/2013 19:57 CDT Source: [facility] [employer] Document Id: [id number] CDT!10 Ankush Hinds R.N. - 12/27/2013 6:24 [...] HINDS RN - 12/27/2013 18:24 CDT [facility] Document Id: [id number] CDT!6 Laurie Vaughn R.N. - 12/27/2013 6:00 PM CDT Post Assessment * Post Assessment * Entered On: 12/27/2013 19:57 CDT Performed On: 12/27/2013 18:00 CDT by LAURIE VAUGHN RN Post Partum Assessment * Fundus : Even Fundus condition : Firm Fundus position : Midline Post Lochia : Lochia Rubra Excessive Lochia : Moderate Perineal Interventions : Ice pack LAURIE VAUGHN RN - 12/27/2013 19:56 CDT Psycho/Emotional Pain Symptoms : No LAURIE VAUGHN RN - 12/27/2013 19:56 CDT Source: [employer] Document Id: [id number] CDT!10 Laurie Vaughn R.NGonzalo - 12/27/2013 5:30 PM CDT Post Assessment * Post Assessment * Entered On: 12/27/2013 19:55 CDT Performed On: 12/27/2013 17:30 CDT by LAURIE VAUGHN RN Post Partum Assessment * Fundus : Even Fundus condition : Firm Fundus position : Midline Post Lochia : Lochia Rubra Excessive Lochia : Moderate Perineal Interventions : Ice pack LAURIE VAUGHN RN - 12/27/2013 19:54 CDT Psycho/Emotional Pain Symptoms : No LAURIE VAUGHN RN - 12/27/2013 19:54 CDT [facility] Document Id: [id number] CDT!10 Laurie Vaughn R.N. - 12/27/2013 5:15 PM CDT Post Assessment * Post Assessment * Entered On: 12/27/2013 19:54 CDT Performed On: 12/27/2013 17:15 CDT by LAURIE VAUGHN RN Post Partum Assessment * Fundus : Even Fundus condition : Firm Fundus position : Midline Post Lochia : Lochia Rubra Excessive Lochia : Moderate Perineal Interventions : Ice pack LAURIE VAUGHN RN - 12/27/2013 19:53 CDT Psycho/Emotional Pain Symptoms : No LAURIE VAUGHN RN - 12/27/2013 19:53 CDT Source: [facility] Pulse 8CHART Document Id: [id number] CDT!10 Laurie Vaughn R.N. - 12/27/2013 4:59 PM CDT Ongoing Assessment Antepartum Ongoing Assessment Antepartum Entered On: 12/27/2013 19:23 CDT Performed On: 12/27/2013 16:59 CDT by LAURIE VAUGHN RN FHR, Franco/Baby A Uterine Contraction Monitoring Method : External toco Uterine Contraction Frequency : 2-5 Uterine Contraction Intensity, Ext Palp : Moderate Uterine Contraction Rest Tone, Ext Palp : Soft FHR Monitoring Method : Electronic monitoring FHR Monitoring Frequency : Continuous FHR Baseline : 130 (Comment: baseline 175 until 1640 and then slowly down to 130 baseline at time of delivery [LAURIE VAUGHN RN - 12/27/2013 19:20 CDT] ) FHR Variability : Moderate variability FHR Accelerations : Present FHR Deceleration : Absent FHR Provider Present : Yes FHR Comment : delivery of female infant at this time LAURIE VAUGHN RN - 12/27/2013 19:20 CDT Psycho/Emotional Pain Symptoms : Yes LAURIE VAUGHN RN - 12/27/2013 19:20 CDT Pain Pain Assessment Grid Pain 1 Location : Abdomen LAURIE VAUGHN RN - 12/27/2013 19:20 CDT Source: [employer] Document Id: [id number] CDT!20 Laurie Vaughn R.N. - 12/27/2013 4:30 PM CDT Ongoing Assessment Antepartum Ongoing Assessment Antepartum Entered On: 12/27/2013 19:19 CDT Performed On: 12/27/2013 16:30 CDT by LAURIE VAUGHN RN FHR, Franco/Baby A Uterine Contraction Monitoring [...] tachycardia, pt continues pushing, temp 37.9 LAURIE VAUGHN RN - 12/27/2013 19:18 CDT Psycho/Emotional Pain Symptoms : Yes LAURIE VAUGHN RN - 12/27/2013 19:18 CDT Pain Pain Assessment Grid Pain 1 Location : Abdomen Intensity : 4 LAURIE VAUGHN RN - 12/27/2013 19:18 CDT Source: [employer] Document Id: [id number] CDT!22 Laurie Vaughn R.N. - 12/27/2013 4:00 PM CDT Ongoing Assessment Antepartum Ongoing Assessment Antepartum Entered On: 12/27/2013 19:17 CDT Performed On: 12/27/2013 16:00 CDT by LAURIE VAUGHN RN FHR, Franco/Baby A Uterine Contraction Monitoring [...] pushed on left and now SF LAURIE VAUGHN RN - 12/27/2013 19:16 CDT Psycho/Emotional Pain Symptoms : Yes LAURIE VAUGHN RN - 12/27/2013 19:16 CDT Pain Pain Assessment Grid Pain 1 Location : Abdomen Intensity : 4 LAURIE VAUGHN RN - 12/27/2013 19:16 CDT Source: [employer] Document Id: [id number] CDT!20 Laurie Vaughn R.N. - 12/27/2013 3:30 PM CDT Ongoing Assessment Antepartum Ongoing Assessment Antepartum Entered On: 12/27/2013 19:16 CDT Performed On: 12/27/2013 15:30 CDT by LAURIE VAUGHN RN FHR, Franco/Baby A Uterine Contraction Monitoring [...] FHR Comment : pushing SF position LAURIE VAUGHN RN - 12/27/2013 19:14 CDT Psycho/Emotional Pain Symptoms : Yes (Comment: states epidural effective for pain control [LAURIE VAUGHN RN - 12/27/2013 19:14 CDT] ) LAURIE VAUGHN RN - 12/27/2013 19:14 CDT Pain Pain Assessment Grid Pain 1 Location : Abdomen Intensity : 4 LAURIE VAUGHN RN - 12/27/2013 19:14 CDT Source: [employer] Document Id: [id number] CDT!20 Laurie Vaughn R.N. - 12/27/2013 3:00 PM CDT Ongoing Assessment Antepartum Ongoing Assessment Antepartum Entered On: 12/27/2013 19:14 CDT Performed On: 12/27/2013 15:00 CDT by LAURIE VAUGHN RN FHR, Franco/Baby A Uterine Contraction Monitoring [...] : pushing on right side now LAURIE VAUGHN RN - 12/27/2013 19:12 CDT Psycho/Emotional Pain Symptoms : Yes LAURIE VAUGHN RN - 12/27/2013 19:12 CDT Pain Pain Assessment Grid Pain 1 Location : Abdomen Intensity : 4 LAURIE VAUGHN RN - 12/27/2013 19:12 CDT Source: [employer] Document Id: [id number] CDT!20 Laurie Vaughn R.N. - 12/27/2013 2:45 PM CDT Ongoing Assessment Antepartum Ongoing Assessment Antepartum Entered On: 12/27/2013 19:12 CDT Performed On: 12/27/2013 14:45 CDT by LAURIE VAUGHN RN FHR, Franco/Baby A Uterine Contraction Monitoring [...] : pushing began at this time LAURIE VAUGHN RN - 12/27/2013 19:09 CDT Psycho/Emotional Pain Symptoms : Yes LAURIE VAUGHN RN - 12/27/2013 19:12 CDT Pain Pain Assessment Grid Pain 1 Location : Abdomen Intensity : 4 LAURIE VAUGHN RN - 12/27/2013 19:12 CDT Source: [employer] Document Id: [id number] CDT!8 Laurie Vaughn R.N. - 12/27/2013 2:30 PM CDT Ongoing Assessment Antepartum Ongoing Assessment Antepartum Entered On: 12/27/2013 19:09 CDT Performed On: 12/27/2013 14:30 CDT by LAURIE VAUGHN RN FHR, Franco/Baby A Uterine Contraction Monitoring [...] Yes FHR Provider Notified : Yes LAURIE VAUGHN RN - 12/27/2013 19:07 CDT OB Exam Cervix Dilation : 10 Amniotic Fluid Amount : Small Amniotic Fluid Color/Description : Clear Presenting Part : Vertex LAURIE VAUGHN RN - 12/27/2013 19:07 CDT Psycho/Emotional Pain Symptoms : Yes LAURIE VAUGHN RN - 12/27/2013 19:07 CDT Pain Pain Assessment Grid Pain 1 Location : Abdomen Intensity : 4 LAURIE VAUGHN RN - 12/27/2013 19:07 CDT Source: [facility] POWERCHART Document Id: [id number] CDT!28 Laurie Vaughn R.N. - 12/27/2013 2:00 PM CDT Ongoing Assessment Antepartum Ongoing Assessment Antepartum Entered On: 12/27/2013 19:07 CDT Performed On: 12/27/2013 14:00 CDT by LAURIE VAUGHN RN FHR, Franco/Baby A Uterine Contraction Monitoring [...] : Absent FHR Deceleration : Absent LAURIE VAUGHN RN - 12/27/2013 19:05 CDT Psycho/Emotional Pain Symptoms : Yes LAURIE VAUGHN RN - 12/27/2013 19:05 CDT Pain Pain Assessment Grid Pain 1 Location : Abdomen Intensity : 4 Interventions : Medications, Repositioning LAURIE VAUGHN RN - 12/27/2013 19:05 CDT Source: [employer] Document Id: [id number] CDT!21 Laurie Vaughn R.N. - 12/27/2013 1:30 PM CDT Ongoing Assessment Antepartum Ongoing Assessment Antepartum Entered On: 12/27/2013 14:04 CDT Performed On: 12/27/2013 13:30 CDT by LAURIE VAUGHN RN FHR, Franco/Baby A Uterine Contraction Monitoring [...] : Present FHR Deceleration : Absent LAURIE VAUGHN RN - 12/27/2013 13:45 CDT OB Exam Cervix Dilation : 9 Station : -1 Membrane Status : Spontaneous rupture (Comment: upon exam Dr. Harrington ruptured forebag. Clear fluid [LAURIE VAUGHN RN - 12/27/2013 13:45 CDT] ) Vaginal Discharge Description : Clear Presenting Part : Vertex LAURIE VAUGHN RN - 12/27/2013 13:45 CDT Psycho/Emotional Pain Symptoms : No LAURIE VAUGHN RN - 12/27/2013 13:45 CDT Source: [employer] Document Id: [id number] CDT!22 Laurie Vaughn R.N. - 12/27/2013 1:00 PM CDT Ongoing Assessment Antepartum Ongoing Assessment Antepartum Entered On: 12/27/2013 13:45 CDT Performed On: 12/27/2013 13:00 CDT by LAURIE VAUGHN RN FHR, Franco/Baby A Uterine Contraction Monitoring [...] : Present FHR Deceleration : Absent LAURIE VAUGHN RN - 12/27/2013 13:43 CDT Psycho/Emotional Pain Symptoms : No LAURIE VAUGHN RN - 12/27/2013 13:43 CDT Source: [employer] Document Id: [id number] CDT!17 Laurie Vaughn R.N. - 12/27/2013 12:30 PM CDT Ongoing Assessment Antepartum Ongoing Assessment Antepartum Entered On: 12/27/2013 12:46 CDT Performed On: 12/27/2013 12:30 CDT by LAURIE VAUGHN RN FHR, Franco/Baby A Uterine Contraction Monitoring [...] (Comment: minimal variability noted until 1220 [LAURIE VAUGHN RN - 12/27/2013 12:43 CDT] ) FHR Accelerations : Absent FHR Deceleration : Absent FHR Deceleration Interventions : Turn to left side LAURIE VAUGHN RN - 12/27/2013 12:43 CDT Psycho/Emotional Pain Symptoms : No LAURIE VAUGHN RN - 12/27/2013 12:46 CDT Source: [employer] Document Id: [id number] CDT!3 Laurie Vaughn R.N. - 12/27/2013 12:00 PM CDT Ongoing Assessment Antepartum Ongoing Assessment Antepartum Entered On: 12/27/2013 12:25 CDT Performed On: 12/27/2013 12:00 CDT by LAURIE VAUGHN RN FHR, Franco/Baby A Uterine Contraction Monitoring [...] : Present FHR Deceleration : Absent LAURIE VAUGHN RN - 12/27/2013 12:22 CDT Psycho/Emotional Pain Symptoms : No LAURIE VAUGHN RN - 12/27/2013 12:22 CDT Source: [employer] Document Id: [id number] CDT!17 Laurie Vaughn R.N. - 12/27/2013 11:36 AM CDT Ongoing Assessment Antepartum Ongoing Assessment Antepartum Entered On: 12/27/2013 11:38 CDT Performed On: 12/27/2013 11:36 CDT by LAURIE VAUGHN RN FHR, Franco/Baby A Uterine Contraction Monitoring Method : External toco Uterine Contraction Frequency : 1.5-3 Uterine Contraction Duration : 60 Uterine Contraction Intensity, Ext Palp : Moderate Uterine Contraction Rest Tone, Ext Palp : Soft FHR Monitoring Method : Electronic monitoring FHR Monitoring Frequency : Continuous FHR Baseline : 150 FHR Variability : Minimal variability FHR Accelerations : Present (Comment: X1 [LAURIE VAUGHN RN - 12/27/2013 11:36 CDT] ) FHR Deceleration : Absent FHR Deceleration Interventions : Turn to left side LAURIE VAUGHN RN - 12/27/2013 11:36 CDT Psycho/Emotional Pain Symptoms : No LAURIE VAUGHN RN - 12/27/2013 11:36 CDT [facility] Document Id: [id number] CDT!16 Laurie Vaughn R.N. - 12/27/2013 11:00 AM CDT Ongoing Assessment Antepartum Ongoing Assessment Antepartum Entered On: 12/27/2013 11:27 CDT Performed On: 12/27/2013 11:00 CDT by LAURIE VAUGHN RN FHR, Franco/Baby A Uterine Contraction Monitoring [...] reviewed tracing. No new orders recieved LAURIE VAUGHN RN - 12/27/2013 11:23 CDT Psycho/Emotional Pain Symptoms : No LAURIE VAUGHN RN - 12/27/2013 11:23 CDT Source: [employer] Document Id: [id number] CDT!18 Laurie Vaughn R.N. - 12/27/2013 10:30 AM CDT Ongoing Assessment Antepartum Ongoing Assessment Antepartum Entered On: 12/27/2013 11:23 CDT Performed On: 12/27/2013 10:30 CDT by LAURIE VAUGHN RN FHR, Franco/Baby A Uterine Contraction Monitoring Method : External toco Uterine Contraction Frequency : 2-3 Uterine Contraction Duration : 40-60 Uterine Contraction Intensity, Ext Palp : Moderate Uterine Contraction Rest Tone, Ext Palp : Soft FHR Monitoring Method : Electronic monitoring FHR Monitoring Frequency : Continuous FHR Baseline : 155 FHR Variability : Minimal variability FHR Accelerations : Present (Comment: X1 [LAURIE VAUGHN RN - 12/27/2013 11:20 CDT] ) FHR Deceleration : Absent FHR Deceleration Interventions : Turn to right side FHR Provider Present : Yes LAURIE VAUGHN RN - 12/27/2013 11:20 CDT Psycho/Emotional Pain Symptoms : No LAURIE VAUGHN RN - 12/27/2013 11:20 CDT Source: [employer] Document Id: [id number] CDT!17 Laurie Vaughn R.N. - 12/27/2013 10:00 AM CDT Ongoing Assessment Antepartum Ongoing Assessment Antepartum Entered On: 12/27/2013 10:06 CDT Performed On: 12/27/2013 10:00 CDT by LAURIE VAUGHN RN FHR, Franco/Baby A Uterine Contraction Frequency [...] notified of maternal temperature and FHTs LAURIE VAUGHN RN - 12/27/2013 10:00 CDT Psycho/Emotional Pain Symptoms : No LAURIE VAUGHN RN - 12/27/2013 10:00 CDT Source: [employer] Document Id: [id number] CDT!17 Laurie Vaughn R.N. - 12/27/2013 9:30 AM CDT Ongoing Assessment Antepartum Ongoing Assessment Antepartum Entered On: 12/27/2013 10:00 CDT Performed On: 12/27/2013 9:30 CDT by LAURIE VAUGHN RN FHR, Franco/Baby A Uterine Contraction Monitoring Method : External toco Uterine Contraction Frequency : 2-4 Uterine Contraction Duration : 60-80 Uterine Contraction Intensity, Ext Palp : Moderate Uterine Contraction Rest Tone, Ext Palp : Soft FHR Monitoring Method : Electronic monitoring FHR Monitoring Frequency : Continuous FHR Baseline : 155 FHR Variability : Minimal variability FHR Accelerations : Present (Comment: X1 [LAURIE VAUGHN RN - 12/27/2013 9:47 CDT] ) FHR Deceleration : Absent FHR Provider Present : Yes LAURIE VAUGHN RN - 12/27/2013 9:47 CDT Psycho/Emotional Pain Symptoms : No LAURIE VAUGHN RN - 12/27/2013 9:47 CDT Source: [employer] Document Id: [id number] CDT!16 Laurie Vaughn R.N. - 12/27/2013 9:00 AM CDT Ongoing Assessment Antepartum Ongoing Assessment Antepartum Entered On: 12/27/2013 9:43 CDT Performed On: 12/27/2013 9:00 CDT by LAURIE VAUGHN RN FHR, Franco/Baby A Uterine Contraction Monitoring [...] recieved. will continue to closely monitor LAURIE VAUGHN RN - 12/27/2013 9:35 CDT Psycho/Emotional Pain Symptoms : No LAURIE VAUGHN RN - 12/27/2013 9:35 CDT Source: [employer] Document Id: [id number] CDT!19 Laurie Vaughn R.N. - 12/27/2013 8:30 AM CDT Ongoing Assessment Antepartum Ongoing Assessment Antepartum Entered On: 12/27/2013 9:34 CDT Performed On: 12/27/2013 8:30 CDT by LAURIE VAUGHN RN FHR, Franco/Baby A Uterine Contraction Monitoring Method : External toco Uterine Contraction Frequency : unable to assess, readjusted Uterine Contraction Intensity, Ext Palp : Moderate Uterine Contraction Rest Tone, Ext Palp : Soft FHR Monitoring Method : Electronic monitoring FHR Monitoring Frequency : Continuous FHR Baseline : 160 FHR Variability : Moderate variability (Comment: minimal until 0812 then moderate [LAURIE VAUGHN RN - 12/27/2013 9:31 CDT] ) FHR Accelerations : Absent FHR Deceleration : Absent FHR Deceleration Interventions : Turn to left side FHR Provider Present : Yes FHR Provider Notified : Yes FHR Comment : notified of temperature and monitor tracing. increase in baseline and minimal variability LAURIE VAUGHN RN - 12/27/2013 9:31 CDT Psycho/Emotional Pain Symptoms : No LAURIE VAUGHN RN - 12/27/2013 9:35 CDT Source: [facility] POWERCHART Document Id: [id number] CDT!3 Laurie Vaughn R.N. - 12/27/2013 8:00 AM CDT Ongoing Assessment Antepartum Ongoing Assessment Antepartum Entered On: 12/27/2013 9:29 CDT Performed On: 12/27/2013 8:00 CDT by LAURIE VAUGHN RN FHR, Franco/Baby A Uterine Contraction Monitoring [...] Within normal limits (Comment: baseline increasing [LAURIE VAUGHN RN - 12/27/2013 9:26 CDT] ) FHR Variability : Moderate variability FHR Accelerations : Present FHR Deceleration : Absent FHR Deceleration Interventions : Turn to right side FHR Provider Present : Yes FHR Provider Notified : Yes FHR Comment : Dr. Harrington in to see patient. POC discussed. EFM tracings reviewed with Dr. Harringtonre: mild variablility and increasing baseline LAURIE VAUGHN RN - 12/27/2013 9:26 CDT Psycho/Emotional Pain Symptoms : No LAURIE VAUGHN RN - 12/27/2013 9:30 CDT Source: [employer] Document Id: [id number] CDT!3 Laurie Vaughn R.N. - 12/27/2013 7:30 AM CDT Ongoing Assessment Antepartum Ongoing Assessment Antepartum Entered On: 12/27/2013 9:26 CDT Performed On: 12/27/2013 7:30 CDT by LAURIE VAUGHN RN FHR, Franco/Baby A Uterine Contraction Monitoring [...] side FHR Provider Present : Yes LAURIE VAUGHN RN - 12/27/2013 9:21 CDT Psycho/Emotional Pain Symptoms : No LAURIE VAUGHN RN - 12/27/2013 9:21 CDT Source: [employer] Document Id: [id number] CDT!18 Laurie Vaughn R.N. - 12/27/2013 7:00 AM CDT Ongoing Assessment Antepartum Ongoing Assessment Antepartum Entered On: 12/27/2013 9:21 CDT Performed On: 12/27/2013 7:00 CDT by LAURIE VAUGHN RN FHR, Franco/Baby A Uterine Contraction Monitoring [...] Interventions : Turn to right side LAURIE VAUGHN RN - 12/27/2013 9:19 CDT Psycho/Emotional Pain Symptoms : No LAURIE VAUGHN RN - 12/27/2013 9:19 CDT Source: [employer] Document Id: [id number] CDT!15 Teresa Alicia RGonzaloNGonzalo - 12/27/2013 6:48 AM CDT Md notification 0630- notified of change in base line heart rate in EFM to 160bpm. no new orders recieved. Electronically Signed By: TERESA ALICIA RN On: 12/27/2013 06:49 AM Source: [employer] Document Id: [id number] Teresa Alicia RGonzaloNGonzalo - 12/27/2013 6:45 AM CDT Md notification 0500- Dr. Madrid updated on pt condition. Epidural placement, low blood pressure during epiduralplacement, and cervical check. No new orders recieved. Electronically Signed By: TERESA ALICIA RN On: 12/27/2013 06:47 AM Source: [employer] Document Id: [id number] Teresa Alicia R.N. - 12/27/2013 6:00 AM [...] ALICIA RN - 12/27/2013 6:33 CDT Source: [employer] Document Id: [id number] CDT!9 Teresa Alicia R.N. - 12/27/2013 2:42 AM CDT PRN Response PRN Response Entered On: 12/27/2013 3:31 CDT Performed On: 12/27/2013 2:42 CDT by TERESA ALICIA RN PRN Medication Effectiveness Evaluation PRN Medication Effective : Yes Post Medication Pain Assessment : 8 TERESA ALICIA RN - 12/27/2013 3:31 CDT Source: [employer] Document Id: [id number] CDT!4 Teresa Alicia R.N. - 12/27/2013 2:24 [...] ALICIA RN - 12/27/2013 2:24 CDT Source: [employer] Document Id: [id number] CDT!34 Teresa Alicia RGonzaloNGonzalo - 12/27/2013 12:45 [...] ICU : S1S2 Nail Bed Color : [place] Capillary Refill : Less than 2 seconds TERESA ALICIA [facility] 12/27/2013 0:45 CDT Pulses Grid Radial Pulse, Left : 2+ Normal Radial Pulse, Right : 2+ Normal Dorsalis Pedis Pulse, Left : 2+ Normal Dorsalis Pedis Pulse, Right : 2+ Normal TERESA ALICIA [facility] 12/27/2013 0:45 CDT Skin Color : Normal for ethnicity Skin Description : Dry Skin Temperature : Warm Activity Tolerance : Minimal distress TERESA ALICIA [facility] 12/27/2013 0:45 CDT Neurological Neuro Patient Stated Symptoms : None Orientation : Oriented x 3 Level of Consciousness : Alert Gait : Steady Swallowing Difficulty/Aspiration Risk : None TERESA ALICIA [facility] 12/27/2013 0:45 CDT [place] Coma Eye Opening Response Mariangel : Spontaneously Best Verbal Response Mariangel : Oriented Best Motor Response [place] : Obeys simple commands Mariangel Coma Score : 15 TERESA ALICIA [facility] 12/27/2013 0:45 CDT Psycho/Emotional Affect/Behavior : Calm Pain Symptoms : Yes TERESA ALICIA [facility] 12/27/2013 0:45 CDT Coping Grid Identifies [...] Values/Beliefs incorporated appropriately : Yes RAVINTERESA [facility]CO [facility] - 12/27/2013 0:45 CDT Safety Grid Vision, Hearing, Mobility Adequate to Meet Safety Needs : Yes TERESA ALICIA [facility] 12/27/2013 0:45 CDT Pain Pain Assessment Grid Pain 1 Location : Abdomen Laterality : Bilateral TERESA ALICIA [facility] 12/27/2013 0:45 CDT Gastrointestinal GI Patient Stated Symptoms : None Abdomen Description : Rounded Abdomen Palpation : Soft, Tender Tenderness : Left lower quadrant, Right lower quadrant Bowel Sounds All Quadrants : Present TERESA ALICIA [facility] 12/27/2013 0:45 CDT Nutrition Eating Difficulties : None Appetite : Good TERESA ALICIA [facility] 12/27/2013 0:45 CDT Genitourinary Patient Stated Symptoms : None Urinary Elimination : Voiding, no difficulties Urine Color : Yellow Urine Description : Clear TERESA ALICIA [facility] 12/27/2013 0:45 CDT Integumentary Integumentary Patient Stated Symptoms : None Skin Turgor : Elastic Skin Integrity : Intact Mucous Membrane Color : [place] Mucous Membrane Description : Moist Skin Color : Normal for ethnicity Skin Description : Dry Skin Temperature : Warm TERESA ALICIA [facility] - 12/27/2013 0:45 CDT Krzysztof Sensory Perception Krzysztof : No impairment Moisture Krzysztof : Rarely moist Activity Krzysztof : Walks frequently Mobility Krzysztof : No limitations Nutrition Krzysztof : Excellent Friction and Shear Krzysztof : No apparent problem Krzysztof Score : 23 TERESA ALICIA [facility] 12/27/2013 0:45 CDT Musculoskeletal Musculoskeletal Patient Stated Symptoms : None TERESA ALICIA [facility] 12/27/2013 0:45 CDT Musculoskeletal Strength Grid Left Upper Extremity Right Upper Extremity Left Lower Extremity Right Lower Extremity Strength : Strong to gravity and resistance Strong to gravity and resistance Strong to gravity and resistance Strong to gravity and resistance TERESA ALICIA [facility] - 12/27/2013 0:45 CDT TERESA ALICIA [facility] 12/27/2013 0:45 CDT RAVINTERESA [facility] - 12/27/2013 0:45 CDT RAVINTERESA [facility]CO [facility] - 12/27/2013 0:45 CDT Peripheral IV [...] Flow/ Patency : No complications TERESA ALICIA [facility] 12/27/2013 0:45 CDT Hendrich II Fall [...] Score Hendrich II : 1 TERESA ALICIA [facility] - 12/27/2013 0:45 CDT Education General Patient Education Powergrid Topics : Activity limitations/expectations, Medication dosage, route, scheduling, Pain Management, Plan of care, Safety, fall Individuals Taught : Patient Barriers to Learning : None evident Teaching Method : Explanation Teaching Evaluation : Verbalizes understanding TERESA ALICIA RN - 12/27/2013 0:45 CDT [facility] Document Id: [id number] CDT!136 Teresa Alicia R.N. - 12/26/2013 9:05 PM CDT md notification 2104- Md notified about pt blood pressure of 146/75. No new orders recieved., Electronically Signed By: TERESA ALICIA RN On: 12/26/2013 09:05 PM Source: [employer] Document Id: [id number] Teresa Alicia R.N. - 12/26/2013 8:04 PM CDT at bed side 1999- Dr. Madrid at bedside discussing starting pitocin with pt. Md did not want pt cervical check before initiating pitocin. orders recieved. Electronically Signed By: TERESA ALIICA RN On: 12/26/2013 08:06 PM Source: [employer] Document Id: [id number] Lulu Richardson R.N. - 12/26/2013 5:11 PM [...] RICHARDSON RN - 12/26/2013 17:11 CDT Source: [employer] Document Id: [id number] CDT!6 Lulu Richardson R.N. - 12/26/2013 3:15 [...] RICHARDSON RN - 12/26/2013 15:56 CDT [facility] Document Id: [id number] CDT!33 Lulu Richardson R.N. - 12/26/2013 2:45 [...] M RN - 12/26/2013 15:43 CDT Source: [facility] [employer] Document Id: [id number] CDT!12 documented in this encounter Miscellaneous Notes Miscellaneous - Betzaida Kahn M.D. - 07/26/2015 12:50 PM CST Refill Request Reviewed chart, just had visit with Dr. Dupont, will refill ProAir HFA as requested. Last refill 2012. Source: [facility] [employer] Document Id: [id number] ECTOR OF AQUARIUM SPECIMENS Miscellaneous - Conversion, Historical Provider Ser - 06/06/2015 11:52 AM CDT Schedule Follow-Up Visit 06 June 2015 DHIRAJ JOSEPH [address] [facility] [phone] Dear DHIRAJ JOSEPH, APPOINTMENT REMINDER: We have had two unsuccessful attempts to contact you via phone. Our records indicate that it is timefor you to be seen for Follow Up Depo with [facility]. You may call our office at [phone] to schedule an appointment with [facility]. Please disregard this notice if you have already made an appointment. Sincerely, Mary Beth Ramos [facility] [place] Sincerely, MARY BETH BRUNSON Electronic Signature Electronically Signed By: MARY BETH BRUNSON On: 06 June 2015 This document has images extracted. Source: [facility] [employer] Document Id: [id number] Miscellaneous - Conversion, Historical Provider Ser - 12/29/2013 3:00 PM CDT Coding Summary-Paper Based CODING DATE: 09/15/2015 FINAL RW [facility] STATUS: * Discharged to Home [...] FISHER Date Saved: 09/15/2015 07:40 am Source: [facility] Pulse 8CHART Document Id: [id number] Miscellaneous - Lexii Parkinson R.NGonzalo - 12/29/2013 7:51 AM CDT Adult Activities of Daily Living Adult Activities of Daily Living Entered On: 12/29/2013 7:52 CDT Performed On: 12/29/2013 7:51 CDT by LEXII REEVES RN ADLs I Patient Position : Sitting in bed Activity Status ADL : Ambulating in room LEXII REEVES RN - 12/29/2013 7:51 CDT Source: [employer] Document Id: [id number] CDT!4 Ramona - Chelsea Saucedo R.NGonzalo - 12/29/2013 5:29 AM CDT Adult Pain Assessment Adult Pain Assessment Entered On: 12/29/2013 5:29 CDT Performed On: 12/29/2013 5:29 CDT by CHELSEA SAUCEDO Pain Pain Assessment Grid Pain 1 Intensity : 0 CHELSEA SAUCEDO - 12/29/2013 5:29 CDT Source: [employer] Document Id: [id number] CDT!5 Miscellgustabo - Chelsea Saucedo RGonzaloNGonzalo - 12/29/2013 2:30 AM CDT Adult Activities [...] CHELSEA SAUCEDO - 12/29/2013 3:37 CDT Source: [employer] Document Id: [id number] CDT!8 Ramona - Chelsea Saucedo R.N. - [...] CHELSEA SAUCEDO - 12/28/2013 20:21 CDT Source: [employer] Document Id: [id number] CDT!6 Ramona - Teresa Alicia R.N. - [...] ALICIA RN - 12/28/2013 0:14 CDT Source: [employer] Document Id: [id number] CDT!9 Miscellaneous - Laurie Vaughn R.N. - 12/27/2013 7:52 PM CDT Neurovascular Assessment Lower Extremity Neurovascular Assessment Lower Extremity Entered On: 12/27/2013 19:52 CDT Performed On: 12/27/2013 19:52 CDT by LAURIE VAUGHN RN Lower Extremity Nail Bed Color Feet Grid Left Foot : [place] Right Foot : [place] LAURIE VAUGHN RN - 12/27/2013 19:52 CDT Capillary Refill Feet Grid Left Foot : < 2 seconds Right Foot : < 2 seconds LAURIE VAUGHN RN - 12/27/2013 19:52 CDT NV Lower Extremity Color Grid Left : [place] Right : [place] LAURIE VAUGHN RN - 12/27/2013 19:52 CDT NV Lower Extremity Temperature Grid Left : Warm Right : Warm LAURIE VAUGHN RN - 12/27/2013 19:52 CDT Lower Extremity Peripheral Pulses Grid Dorsalis Pedis Pulse, Left : 2+ Normal Dorsalis Pedis Pulse, Right : 2+ Normal LAURIE VAUGHN RN - 12/27/2013 19:52 CDT Effected Lower Extremity Pain : Controlled with medications LAURIE VAUGHN RN - 12/27/2013 19:52 CDT [facility] P[facility] Document Id: [id number] CDT!18 Miscellaneous - Ankush Hinds R.N. - [...] 12/27/2013 18:15 CDT ID Band Number : [id number] Score - 1 Minute : 8 Score [...] HINDS RN - 12/27/2013 18:15 CDT Source: [facility] POWERCHART Document Id: [id number] CDT!7 Miscellaneous - Laurie Vaughn RGonzaloNGonzalo - 12/27/2013 11:18 AM CDT Neurovascular Assessment Lower Extremity Neurovascular Assessment Lower Extremity Entered On: 12/27/2013 11:18 CDT Performed On: 12/27/2013 11:18 CDT by LAURIE VAUGHN RN Lower Extremity Nail Bed Color Feet Grid Left Foot : [place] Right Foot : [place] LAURIE VAUGHN RN - 12/27/2013 11:18 CDT Capillary Refill Feet Grid Left Foot : < 2 seconds Right Foot : < 2 seconds LAURIE VAUGHN RN - 12/27/2013 11:18 CDT NV Lower Extremity Color Grid Left : [place] Right : [place] LAURIE VAUGHN RN - 12/27/2013 11:18 CDT NV Lower Extremity Temperature Grid Left : Warm Right : Warm LAURIE VAUGHN RN - 12/27/2013 11:18 CDT Lower Extremity Peripheral Pulses Grid Dorsalis Pedis Pulse, Left : 2+ Normal Dorsalis Pedis Pulse, Right : 2+ Normal LAURIE VAUGHN RN - 12/27/2013 11:18 CDT Effected Lower Extremity Pain : Controlled with medications LAURIE VAUGHN RN - 12/27/2013 11:18 CDT Source: [employer] Document Id: [id number] CDT!18 Miscellaneous - Laurie Vaughn R.N. - 12/27/2013 9:15 AM CDT Neurovascular Assessment Lower Extremity Neurovascular Assessment Lower Extremity Entered On: 12/27/2013 9:16 CDT Performed On: 12/27/2013 9:15 CDT by LAURIE VAUGHN RN Lower Extremity Nail Bed Color Feet Grid Left Foot : [place] Right Foot : [place] LAURIE VAUGHN RN - 12/27/2013 9:15 CDT Capillary Refill Feet Grid Left Foot : < 2 seconds Right Foot : < 2 seconds LAURIE VAUGHN RN - 12/27/2013 9:15 CDT NV Lower Extremity Color Grid Left : [place] Right : [place] LAURIE VAUGHN RN - 12/27/2013 9:15 CDT NV Lower Extremity Temperature Grid Left : Warm Right : Warm LAURIE VAUGHN RN - 12/27/2013 9:15 CDT Lower Extremity Peripheral Pulses Grid Dorsalis Pedis Pulse, Left : 2+ Normal Dorsalis Pedis Pulse, Right : 2+ Normal LAURIE VAUGHN RN - 12/27/2013 9:15 CDT Effected Lower Extremity Pain : Controlled with medications LAURIE VAUGHN RN - 12/27/2013 9:15 CDT Source: [employer] Document Id: [id number] CDT!18 Miscellaneous - Teresa Alicia RChristy - 12/27/2013 6:50 AM CDT Heart Monitoring [...] ALICIA RN - 12/27/2013 6:50 CDT Source: [employer] Document Id: [id number] CDT!15 Miscellaneous - Teresa Alicia RGonzaloNGonzalo - [...] ALICIA RN - 12/27/2013 6:34 CDT Source: [employer] Document Id: [id number] CDT!18 Miscellaneous - Teresa Alicia R.NGonzalo - [...] : Present FHR Deceleration : Absent TERESA LAICIA RN - 12/27/2013 6:02 CDT Source: [employer] Document Id: [id number] CDT!14 Octaviacellgustabo - Teresa Alicia R.NGonzalo - 12/27/2013 5:28 [...] ALICIA RN - 12/27/2013 5:28 CDT Source: [employer] Document Id: [id number] CDT!17 Ramona - Teresa Alicia R.N. - [...] ALICIA RN - 12/27/2013 5:02 CDT Source: [employer] Document Id: [id number] CDT!17 Ramona - Teresa Alicia, R.N. - [...] ALICIA RN - 12/27/2013 4:42 CDT Source: [employer] Document Id: [id number] CDT!17 Miscellaneous - Teresa Alicia, R.N. - [...] ALICIA RN - 12/27/2013 4:06 CDT Source: [employer] Document Id: [id number] CDT!17 Miscellaneous - Teresa Alicia RGonzaloN. - 12/27/2013 3:30 [...] ALICIA RN - 12/27/2013 3:46 CDT Source: [employer] Document Id: [id number] CDT!16 Ramona - Teresa Alicia RGonzaloN. - [...] ALICIA RN - 12/27/2013 3:34 CDT Source: [employer] Document Id: [id number] CDT!16 Miscellgustabo - Teresa Alicia R.NGonzalo - 12/27/2013 2:30 [...] ALICIA RN - 12/27/2013 3:32 CDT Source: [employer] Document Id: [id number] CDT!17 Miscellaneous - Teresa Alicia, R.N. - [...] ALICIA RN - 12/27/2013 2:21 CDT Source: [employer] Document Id: [id number] CDT!18 Miscellaneous - Teresa Alicia R.NGonzalo - [...] ALICIA RN - 12/27/2013 1:32 CDT Source: [employer] Document Id: [id number] CDT!17 Miscellaneous - Teresa Alicia R.N. - [...] ALICIA RN - 12/27/2013 1:06 CDT Source: [employer] Document Id: [id number] CDT!15 Ramona - Teresa Alicia R.NGonzalo - [...] ALICIA RN - 12/27/2013 0:41 CDT Source: [employer] Document Id: [id number] CDT!18 Ramona - Teresa Alicia R.N. - [...] ALICIA RN - 12/27/2013 0:08 CDT Source: [employer] Document Id: [id number] CDT!16 Marco Antonioaneous - Teresa Alicia R.N. - 12/26/2013 11:54 [...] ALICIA RN - 12/26/2013 23:54 CDT Source: [employer] Document Id: [id number] CDT!11 Ramona - Teresa Alicia R.N. - [...] ALICIA RN - 12/26/2013 23:41 CDT Source: [employer] Document Id: [id number] CDT!3 Ramona - Teresa Alicia R.NGonzalo - 12/26/2013 11:00 PM CDT Heart Monitoring [...] ALICIA RN - 12/26/2013 23:18 CDT Source: [employer] Document Id: [id number] CDT!18 Ramona - Teresa Alicia R.N. - [...] ALICIA RN - 12/26/2013 23:16 CDT Source: [employer] Document Id: [id number] CDT!16 Mislala - Teresa Alicia RGonzaloNGonzalo - 12/26/2013 10:09 PM CDT Adult Activities of Daily Living Adult Activities of Daily Living Entered On: 12/26/2013 22:09 CDT Performed On: 12/26/2013 22:09 CDT by TERESA ALICIA RN ADLs I Activity Status ADL : Ambulating in morrell, Ambulating in room, Up with assistance Activity Assistance : Stand-by assistance TERESA ALICIA RN - 12/26/2013 22:09 CDT Source: [employer] Document Id: [id number] CDT!4 Octaviacellaneous - Teresa Alicia RGonzaloNGonzalo - [...] ALICIA RN - 12/26/2013 22:07 CDT Source: [employer] Document Id: [id number] CDT!17 Miscellaneous - Teresa Alicia, R.N. - [...] ALICIA RN - 12/26/2013 21:33 CDT Source: [employer] Document Id: [id number] CDT!18 Miscellaneous - Teresa Alicia RGonzaloN. - [...] ALICIA RN - 12/26/2013 21:06 CDT Source: [employer] Document Id: [id number] CDT!18 Miscellgustabo - Teresa Alicia RGonzaloN. - 12/26/2013 8:30 PM CDT Heart Monitoring [...] ALICIA RN - 12/26/2013 20:32 CDT [facility] Document Id: [id number] CDT!18 Octaviacellaneous - Teresa Alicia RGonzaloNGonzalo - [...] ALICIA RN - 12/26/2013 20:01 CDT Source: [employer] Document Id: [id number] CDT!17 Miscellaneous - Teresa Alicia, R.NGonzalo - [...] ALICIA RN - 12/26/2013 19:28 CDT Source: [employer] Document Id: [id number] CDT!17 Miscellaneous - Lulu Richardson RGonzaloNGonzalo - [...] RICHARDSON RN - 12/26/2013 19:04 CDT Source: [employer] Document Id: [id number] CDT!5 Octaviacellgustabo - Lulu Richardson RGonzaloNGonzalo - 12/26/2013 6:45 [...] RICHARDSON RN - 12/26/2013 19:00 CDT Source: [employer] Document Id: [id number] CDT!17 Miscellaneous - Lulu Richardson R.NGonzalo - 12/26/2013 6:15 PM CDT Heart Monitoring [...] RICHARDSON RN - 12/26/2013 18:46 CDT Source: [employer] Document Id: [id number] CDT!17 Miscellaneous - Lulu Richardson, R.N. - 12/26/2013 5:45 PM CDT Heart [...] RICHARDSON RN - 12/26/2013 18:44 CDT Source: [employer] Document Id: [id number] CDT!17 Miscellaneous - Lulu Richardson R.N. - [...] RICHARDSON RN - 12/26/2013 17:43 CDT Source: [employer] Document Id: [id number] CDT!17 Octaviacellgustabo - Lulu Richardson, R.N. - [...] RICHARDSON RN - 12/26/2013 17:40 CDT Source: [facility] [employer] Document Id: [id number] CDT!17 Ramona - Lulu Richardson R.N. - [...] ; Reviewed Date: 12/26/2013 16:35 CDT Source: [facility] [employer] Document Id: [id number] CDT!3 Octaviacellgustabo - Lulu Richardson RGonzaloNGonzalo - 12/26/2013 4:15 [...] RICHARDSON RN - 12/26/2013 16:55 CDT Source: [employer] Document Id: [id number] CDT!17 Miscellaneous - Lulu Richardson, R.N. - [...] RICHARDSON RN - 12/26/2013 16:53 CDT Source: [employer] Document Id: [id number] CDT!17 documented in this encounter Plan of [...] (ABNORMAL) Automated Differential (12/28/2013 7:50 AM CDT) [facility] Method Time Signature Absolute 12.86 (H) [...] Erythrocytes 3.78 (L) 3.90 - POWERCHART 5.03 [id number] HX RDW 12.8 11.9 - POWERCHART 15.5 [...] POWERCHART MMOLL eGFR Black/ >60 >=60 POWERCHART Citizen Of [place] [id number] 2 HXeGFR (MDRD) >60 >=60 POWERCHART [id number] 2 Comment: Results are in mL/min/1.73m CKD [...] Erythrocytes 3.81 (L) 3.90 - POWERCHART 5.03 F4864I HX RDW 12.7 11.9 - POWERCHART 15.5 [...] POWERCHART GDL eGFR Black/ >60 >=60 POWERCHART Citizen Of [place] [id number] 2 HXeGFR (MDRD) >60 >=60 POWERCHART [id number] 2 Comment: Results are in mL/min/1.73m CKD [...] A POS POWERCHART Retype Comment: 12/27/2013 12:25 [id number] [place] draw for an ABO/Rh [...] BANK TEST ORDERABL ES Performing Organization Address City/State/[facility] Phon e Number POWERCHART (ABNORMAL) Automated [...] M.D. LAB BLOOD ADD-ON Performing Organization Address City/[facility] Phon e Number POWERCHART (ABNORMAL) CBC with Differential (12/26/2013 3:40 PM CDT) Analysis Performed At Patho logist Time Signature Hematocrit 37.1 34.9 - POWERCHART 44.5 Hemoglobin 12.8 12.0 - POWERCHART 15.5 GDL MCV 90.7 82.0 - POWERCHART 98.0 FL Platelet Count 256 150 - 450 POWERCHART X109L Erythrocytes 4.09 3.90 - POWERCHART 5.03 G1422O HX RDW 12.8 11.9 - POWERCHART 15.5 Leukocytes 12.4 (H) 3.5 - 10.5 POWERCHART X109L Specimen (Source) Anatomical Collection Method Collection Time Re ceived Time Location / / Volume Laterality Blood 12/26/2013 3:40 PM CDT Carlee M Gruenwald M.D. LAB BLOOD ADD-ON Performing Organization Address City/State/ZIP Code Phon e Number POWERCHART (ABNORMAL) CMP (Comprehensive Metabolic Panel) (12/26/2013 3:40 PM CDT) [facility] Method Time Signature Chloride, S 100 [...] POWERCHART GDL eGFR Black/ >60 >=60 POWERCHART Citizen Of [place] [id number] 2 HXeGFR (MDRD) >60 >=60 POWERCHART [id number] 2 Comment: Results are in mL/min/1.73m CKD [...] POWERCHART ABSC GEL (12/26/2013 3:40 PM CDT) [facility] Method Time Signature HX ABSC Gel Negative ABSC POWERCHART Specimen (Source) Anatomical Collection Method Collection Time Re ceived Time Location / / Volume Laterality 12/26/2013 3:40 PM CDT Carlee Madrid M.D. LAB HISTORICAL ORDERS Performing Organization Address City/[facility]/ZIP Code Phon e Number POWERCHART ABO/Rh (12/26/2013 3:40 PM CDT) P athologist Signature ABORh Interp A POS POWERCHART Specimen (Source) Anatomical Collection Method Collection Time Re ceived Time Location / / Volume Laterality 12/26/2013 3:40 PM CDT Carlee Madrid M.D. LAB BLOOD BANK TEST ORDERABL ES Performing Organization Address [facility]/ZIP Code Phon e Number POWERCHART documented in this encounter Visit Diagnoses Not on filedocumented in this encounter
--- OUTSIDE RECORDS SUMMARY | 2022-07-20 10:54 | XMS_ITS | Encounter Summary ---
:1995 Author Organization [facility] Address [address] [place] [address] Care Team Providers Name Role Phone Unavailable Primary Care Provider Unavailable Encounter Details Date Type Department Care Team Description 12/26/2013 Hospital Encounter HX [facility] Lory Saldaña M.D. 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 Last [...] 12/26/2013 1:23 PM CD T Growth Chart: [facility] [...] 12/26/2013 5:29 PM CDT Ambulatory Patient Summary [facility] [address], [address] [place], [place] [id number] Visit Information Name: RAYMONDKYLEDHRIAJ PAWEL [facility] Number: [id number] Current Date: 12/26/2013 17:29:34 Physicians [...] nasal (Flonase 0.05 mg/inh nasal spray) 2 [place](s), Nasal, two times a day fluticasone-salmeterol [...] Date Time Location Reason Provider 01/02/2014 13:15 [facility] DIETARY AIDE COOK 38 wk ob check Lory Villa MD 01/09/2014 13:15 [facility] DIETARY AIDE COOK 39 wk ob check Lory Villa MD Attention: Contact your local Clinic if further appointment detail needed. Your Goals/Additional instructions: Source: [facility] POWERCHART Document Id: [id number] Miscellaneous - Lory Villa M.D. - 12/26/2013 5:29 PM CDT Ambulatory Discharge Medication List [facility] [address], [address] [place], [place] [id number] Visit Information Name: DHIRAJ LANDA [facility] Number: [id number] Visit Date: 12/26/2013 17:29:33 Attending [...] nasal (Flonase 0.05 mg/inh nasal spray) 2 [place](s), Nasal, two times a day fluticasone-salmeterol [...] MD Signed On:26-DEC-2013 17:29:28 Additional Information: Source: [facility] POWERCHART Document Id: [id number] Miscellaneous - Joy Johnson L.PGonzaloNGonzalo - 12/26/2013 1:23 PM CDT Adult Buttermaker Continuous Churn Intake/History 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 Continuous Churn Intake/History Entered On: 12/26/2013 13:26 CDT Performed [...] Information Given By : Patient Languages : Citizen Of [place] JOY JOHNSON LPN - 12/26/2013 13:23 CDT Subjective Pain Symptoms : Yes JOY JOHNSON LPN 12/26/2013 13:23 CDT Pain Pain Assessment Grid Pain 1 Location : Other: low back Laterality : Bilateral Intensity : 3 JOY JOHNSON LPN 12/26/2013 13:23 CDT Dependent Habits Tobacco Use/Currently Using : No Exposure to Tobacco Smoke : Care provider denies smoking in home, Other: former smoker Smoking Status : Former smoker JOY JOHNSON LPN 12/26/2013 13:23 CDT Tobacco Use Grid Last Use : never JOY JOHNSON LPN 12/26/2013 13:23 CDT Alcohol Use : No JOY JOHNSON LPN 12/26/2013 13:23 CDT Caffeine Use Grid Caffeine Use : Current Type : Soft drinks Frequency : Occasionally JOY JOHNSON LPN - 12/26/2013 13:23 CDT Recreational Drug Use Grid Drug Use : None JOY JOHNSON LPN 12/26/2013 13:23 CDT Source: [facility] POWERCHART Document Id: [id number] CDT!36 documented in this encounter Plan of [...]
--- OUTSIDE RECORDS SUMMARY | 2022-07-20 10:54 | XMS_ITS | Encounter Summary ---
:1995 Author Organization [facility] Address [address] [place] [address] Care Team Providers Name Role Phone Unavailable Primary Care Provider Unavailable Encounter Details Date Type Department Care Team Description 12/05/2013 Hospital Encounter [facility]X [facility] Bridget Saldaña M.D. Social History Tobacco [...] How often do you attend mandaeism or anabaptist Never 10/23/2020 services? 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 prenat.vits,hernandez,min-iron- Take 1 tablet by 0 0 01/201410/06/2017 folic ( VITAMIN) mouth. tablet prenat.vits,hernandez,min-iron- Take 1 tablet by 0 /0 01/201402/19/2019 folic ( VITAMIN) mouth daily. tablet documented as of this encounter Miscellaneous Notes Miscellaneous - Bridget Villa M.D. - 12/05/2013 7:33 PM CDT Ambulatory Patient Summary [facility] [address], [address] [place], [place] [phone] Visit Information Name: GRODOAJDHIRAJ PAWEL [facility] Number: [id number] Current Date: 12/05/2013 19:33:04 Physicians Attending Provider: BRIDGET VILLA MD Primary Care Provider: PCP, UNASSIGNED - DHIRAJ LANDAE has been given the following [...] nasal (Flonase 0.05 mg/inh nasal spray) 2 [place](s), Nasal, two times a day montelukast (montelukast [...] Electronically Signed By: BRIDGET VILLA MD Signed On:05-DEC-2013 19:32:57 Your Allergies [...] Date Time Location Reason Provider 12/18/2013 15:20 [facility] 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 Your Goals/Additional instructions: Source: [facility] POWERCHART Document Id: [id number] Miscellaneous - Bridget Villa M.D. - 12/05/2013 7:33 PM CDT Ambulatory Discharge Medication List [facility] [address], [address] [place], [place] [phone] Visit Information Name: DHIRAJ LANDA [facility] Number: [id number] Visit Date: 12/05/2013 19:33:02 Attending Provider: BRIDGET VILLA MD Primary Care [...] nasal (Flonase 0.05 mg/inh nasal spray) 2 [place](s), Nasal, two times a day montelukast (montelukast [...] Electronically Signed By: BRIDGET VILLA MD Signed On:05-DEC-2013 19:32:57 Additional Information: Source: [employer] Document Id: [id number] Miscellaneous - Joy Johnson L.PChristy - 12/05/2013 1:24 PM CDT Adult Glue Mounter Operator Intake/History 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
--- OUTSIDE RECORDS SUMMARY | 2022-07-20 10:54 | XMS_ITS | Encounter Summary ---
:1995 Author Organization [facility] Address [address] [place] [address] Care Team Providers Name Role Phone Unavailable Primary Care Provider Unavailable Encounter Details Date Type Department Care Team Description 12/26/2013 - Hospital Encounter HX [facility] Carlee Alfonso 12/29/2013 ZHEN Baker M.D. [address] [place] [id number] Social History Tobacco Use Types Packs/Day [...] How often do you attend buddhist or gnosticism Never 10/23/2020 services? 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
--- OUTSIDE RECORDS SUMMARY | 2022-07-20 10:54 | XMS_ITS | Encounter Summary ---
:1995 Author Organization [facility] Address [address] [place] [address] Care Team Providers Name Role Phone Unavailable [...] How often do you attend mosque or hoahaoism Never 10/23/2020 services? 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
--- OUTSIDE RECORDS SUMMARY | 2022-07-20 10:55 | XMS_ITS | Encounter Summary ---
:1995 Author Organization [facility] Address [address] [place] [address] Care Team Providers Name Role Phone Unavailable Primary Care Provider Unavailable Encounter Details Date Type Department Care Team Description 07/02/2013 Hospital Encounter HX [facility] Bridget Saldaña M.D. Social History Tobacco Use [...] often do you attend jehovah's witness or adventism Never 10/23/2020 services? 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 BR Source: [facility] Document Id: [id number] Bridget Harrington M.D. - 07/02/2013 2:30 PM CST [id number] Discussed quad/CF, SMA and fragile X testing. Pt undecided will discuss with insurance. Source[facility] Document Id: [id number] Electronically signed by Conversion, [facility] Welt Beater [id number] at 01/10/2017 9:11 PM CDT documented in this encounter Plan of Treatment Not on filedocumented as of this encounter Visit Diagnoses Not on filedocumented in this encounter
--- OUTSIDE RECORDS SUMMARY | 2022-07-20 10:55 | XMS_ITS | Encounter Summary ---
:1995 Author Organization [facility] Address [address] [place] [address] Care Team Providers Name Role Phone Unavailable Primary Care Provider Unavailable Encounter Details Date Type Department Care Team Description 04/28/2012 Hospital Encounter HX [facility] FAMILY ME Stephanie Ge M.D. [...] How often do you attend buddhism or presybeterian Never 10/23/2020 services? 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 - 04/28/2012 3:34 PM CDT [id number] REVISION HISTORY Dictated on 05/01/2012 at 6:37 [...] did talk about possible risks and benefits. [place] precautions were observed. The area on her [...] GE MD On: 05/05/2012 07:48 AM Source: [facility] MHSDOLBEYNONRADSYS Document Id: [id number] documented in this encounter Miscellaneous Notes Miscellaneous - Stephanie Ge M.D. - 04/28/2012 5:21 PM CDT Ambulatory Patient Summary [id number] [place] [address] Visit Information Name: DHIRAJ LANDA Current Date: [...] Date Time Location Reason Provider 05/01/2012 17:30 [facility] Family Med follow up Stephanie Ge MD Your Goals/Additional instructions: Source: [facility] POWERCHART Document Id: [id number] Miscellaneous - Stephanie Ge M.D. - 04/28/2012 5:21 PM CDT Ambulatory Depart Summary [address] [address] Visit Information Name: DHIRAJ LANDA Visit Date: 04/28/2012 17:21:07 Attending Provider: STEPHANIE GE MD Primary Care Provider: JAMARI MCHUGH MD SYEDA DHIRAJ PAWEL has been given the following [...] your provider for clarification. Additional Information: Source: [facility] POWERCHART Document Id: [id number] Miscellaneous - Jeanette Dennison L.P.N. - 04/28/2012 3:40 PM CDT Pediatric Counselor Supervisor Intake/History Pediatric Counselor Supervisor Intake/History Entered On: 04/28/2012 15:42 CDT Performed [...] 15:40 CDT Subjective Pain Symptoms : Yes JENAETTE DENNISON 04/28/2012 15:40 CDT Pain Pain Assessment [...] LPN; Reviewed Date: 04/26/2012 22:24 CDT Source: [facility] POWERCHART Document Id: [id number] documented in this encounter Plan of Treatment Not on filedocumented as of this encounter Procedures Procedure Name Priority Date/Time Associated Diagnosis Comme nts BACTERIAL CULTURE, Routine 04/28/2012 4:30 PM Res ults for this AEROBIC CDT procedure are i n the results section. documented in this encounter Results (ABNORMAL) Bacterial Culture, Aerobic (04/28/2012 4:30 PM CDT) Component Value Ref Test Analysis Performed At [employer] gist Range Method Time Signature Organism (POSITIVE) [...]
--- OUTSIDE RECORDS SUMMARY | 2022-07-20 10:55 | XMS_ITS | Encounter Summary ---
:1995 Author Organization [facility] Address [address] [place] [address] Care Team Providers Name Role Phone Unavailable Primary Care Provider Unavailable Encounter Details Date Type Department Care Team Description 05/01/2012 Hospital Encounter HX [facility] FAMILY ME Stephanie Ge M.D. Social [...] often do you attend oriental orthodox or sikhism Never 10/23/2020 services? 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 - 05/01/2012 5:36 PM CDT [id number] CHIEF COMPLAINT/REASON FOR VISIT Xin comes in [...] in two days for repacking. Stephanie Ge M.D./[facility] Electronically Signed By: STEPHANIE GE MD On: 05/05/2012 07:47 AM Source: [facility] MHSDOLBEYNONRADSYS Document Id: [id number] documented in this encounter Nursing Notes Stuart, [...] PENA RN On: 04/29/2012 05:56 PM Source: [facility] POWERCHART Document Id: [id number] documented in this encounter Miscellaneous Notes Miscellaneous - Ember Bethea LGonzaloPGonzaloNGonzalo - 05/01/2012 5:40 PM CDT Pediatric Cupola Charger Insulation Intake/History Pediatric Cupola Charger Insulation Intake/History Entered On: 05/01/2012 17:45 CDT Performed [...] LPN; Reviewed Date: 05/01/2012 16:08 CDT Source: [facility] [employer] Document Id: [id number] documented in this encounter Plan of Treatment Not on filedocumented as of this encounter Visit Diagnoses Not on filedocumented in this encounter
--- OUTSIDE RECORDS SUMMARY | 2022-07-20 10:55 | XMS_ITS | Encounter Summary ---
:1995 Author Organization [facility] Address [address] [place] [address] Care Team Providers Name Role Phone Unavailable Primary Care Provider Unavailable Encounter Details Date Type Department Care Team Description 06/04/2013 Hospital Encounter [facility]X [facility] XRAY Provider, Histori hernandez Social History [...] How often do you attend protestant or nondenominational Never 10/23/2020 services? Do you [...] at Date Recorded Female 08/12/2017 10:51 AM DBAS documented as of this encounter Medications at [...]
--- OUTSIDE RECORDS SUMMARY | 2022-07-20 10:55 | XMS_ITS | Encounter Summary ---
:1995 Author Organization [facility] Address [address] [place] [address] Care Team Providers Name Role Phone Unavailable Primary Care Provider Unavailable Encounter Details Date Type Department Care Team Description 08/29/2013 Hospital Encounter HX [facility] XRAY Provider, Histori hernandez Social History [...] How often do you attend yarsani or yazdanism Never 10/23/2020 services? 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
--- OUTSIDE RECORDS SUMMARY | 2022-07-20 10:55 | XMS_ITS | Encounter Summary ---
:1995 Author Organization [facility] Address [address] [place] [address] Care Team Providers Name Role Phone Unavailable Primary Care Provider Unavailable Encounter Details Date Type Department Care Team Description 06/01/2013 Hospital Encounter [facility]X [facility] Shivam Keith A, R.N. [address] [place], [place] [phone] Social History Tobacco Use [...] How often do you attend gnosticism or synagogue Never 10/23/2020 services? 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 - 06/01/2013 12:00 AM CDT [id number] Situation/What is the patients concern/need: Patient update/inquiry [...] Ceja. Best number(s) to reach patient: [facility] Document Id: [id number] Electronically signed by Conversion, [facility] Shipping Manager [id number] at 01/10/2017 8:48 PM CDT documented in this encounter Plan of Treatment Not on filedocumented as of this encounter Visit Diagnoses Not on filedocumented in this encounter
--- OUTSIDE RECORDS SUMMARY | 2022-07-20 10:55 | XMS_ITS | Encounter Summary ---
:1995 Author Organization [facility] Address [address] [place] [address] Care Team Providers Name Role Phone Unavailable Primary Care Provider Unavailable Encounter Details Date Type Department Care Team Description 05/05/2012 Hospital Encounter HX [facility] FAMILY ME Stephanie Ge M.D. Social [...] How often do you attend latter-day or mu-ism Never 10/23/2020 services? 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 - 05/05/2012 3:58 PM CDT [id number] CHIEF COMPLAINT/REASON FOR VISIT Repacking of abscess. [...] GE MD On: 05/09/2012 01:35 PM Source: [facility] MHSDOLBEYNONRADSYS Document Id: [id number] documented in this encounter Miscellaneous Notes Miscellaneous - Stephanie Ge M.D. - 05/05/2012 5:10 PM CDT Ambulatory Depart Summary [facility] [address] [place] [address] Visit Information Name: CARLY LANDA Visit Date: [...] your provider for clarification. Additional Information: Source: [facility] POWERCHART Document Id: [id number] Miscellaneous - Stephanie Ge M.D. - 05/05/2012 5:10 PM CDT Ambulatory Patient Summary [id number] [place] [address] Visit Information Name: CARLY LANDA Current Date: [...] Date Time Location Reason Provider 05/08/2012 15:45 [facility] Family Med REPACK WOUND Your Goals/Additional instructions: Source: [facility] [employer] Document Id: [id number] Miscellaneous - Jeanette Dennison L.P.N. - 05/05/2012 4:03 PM CDT Pediatric Circulation Sales Representative Intake/History Pediatric Circulation Sales Representative Intake/History Entered On: 05/05/2012 16:06 CDT Performed [...] LPN; Reviewed Date: 05/01/2012 16:08 CDT Source: [facility] POWERCHART Document Id: [id number] documented in this encounter Plan of Treatment Not on filedocumented as of this encounter Visit Diagnoses Not on filedocumented in this encounter
--- OUTSIDE RECORDS SUMMARY | 2022-07-20 10:55 | XMS_ITS | Encounter Summary ---
:1995 Author Organization [facility] Address [address] [place] [address] Care Team Providers Name Role Phone Unavailable Primary Care Provider Unavailable Encounter Details Date Type Department Care Team Description 06/04/2013 Hospital Encounter HX NO MAPPING Iva Guerrero APRN, C.N.P. [address] [phone] (Wo rk) Social History Tobacco Use [...] How often do you attend nondenominational or cheondoism Never 10/23/2020 services? 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
--- OUTSIDE RECORDS SUMMARY | 2022-07-20 10:55 | XMS_ITS | Encounter Summary ---
:1995 Author Organization [facility] Address [address] [place] [address] Care Team Providers Name Role Phone Unavailable Primary Care Provider Unavailable Encounter Details Date Type Department Care Team Description 06/01/2013 Hospital Encounter HX [facility] OBGYN Provider, Histor ical Social History [...] How often do you attend anglican or confucianism Never 10/23/2020 services? 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 Vianey Ceja MD [facility] Document Id: [id number] documented in this encounter Plan of Treatment Not on filedocumented as of this encounter Procedures Procedure Name Priority Date/Time Associated Comments Diagnosis HUMAN CHORIONIC Routine 06/01/2013 12:26 Results for this GONADOTROPIN (HCG), PM CDT procedur e are in IRAS[facility], the results section. documented in this encounter Results hCG (Human Chorionic Gonadotropin), Quantitative, (06/01/2013 12:26 PM CDT) P athologist Signature Beta-HCG, [id number] I[facility], [employer] LAB Specimen (Source) Anatomical Collection Method Collection Time Re ceived Time Location / / Volume Laterality 06/01/2013 12:26 PM CDT Narrative [facility] - 10/12/19 14 11:11 PM HANDLE ATTACHER Non- ?0 - 5 , weeks from LMP: 1 - 10 weeks ? 64 - 151,000 IU/L 11 - 15 weeks 11,800 - 152,000 IU/L 16 - 22 weeks ??9,380 - 61,400 IU/L 23 - 40 weeks ??1,740 - 98,600 IU/L Specimen run with a dilution Historical Provider LAB BLOOD ADD-ON Performing Organization Address City/State/ZIP Code Phon e Number [facility] documented in this encounter Visit Diagnoses Not on filedocumented in this encounter
--- OUTSIDE RECORDS SUMMARY | 2022-07-20 10:55 | XMS_ITS | Encounter Summary ---
:1995 Author Organization [facility] Address [address] [place] [address] Care Team Providers Name Role Phone Unavailable [...] How often do you attend sabianism or congregation Never 10/23/2020 services? 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 [place] After Hours ExpertRN Call ID: [id number] Patient Name: Jaimie Service Date/Time: May 31, 2013 18:04 Duration: 00:02:44 Age: 18 Y Provider: Martha Thomas R.N. Pager: Birthdate: 1995 Sex: F Address: City: [place] [id number] Service: [facility] CHIEF COMPLAINT / PURPOSE OF VISIT Triage nurse call: Carly Joseph is a 18 year old woman with possible symptoms of labor or miscarriage Abdominal pain today, 9 weeks . Calling from: [phone] HISTORY OF PRESENT ILLNESS: 1. Possible symptoms [...] information and instructions given Caller's primary language: Upper Sorbian PERTINENT NEGATIVES No: charts accessed (none selected from list) Source: [facility] RWHXTRANSXRTFSYS Document Id: [id number] documented in this encounter Plan of Treatment Not on filedocumented as of this encounter Visit Diagnoses Not on filedocumented in this encounter
--- OUTSIDE RECORDS SUMMARY | 2022-07-20 10:55 | XMS_ITS | Encounter Summary ---
:1995 Author Organization [facility] Address [address] [place] [address] Care Team Providers Name Role Phone Unavailable Primary Care Provider Unavailable Encounter Details Date Type Department Care Team Description 05/31/2013 Hospital Encounter HX NO MAPPING Ancelmo Benítez M.D. [address] [place] [phone] (Wo rk) Social History Tobacco [...] How often do you attend hindu or advent Never 10/23/2020 services? 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
--- OUTSIDE RECORDS SUMMARY | 2022-07-20 10:55 | XMS_ITS | Encounter Summary ---
:1995 Author Organization [facility] Address [address] [place] [address] Care Team Providers Name Role Phone Unavailable Primary Care Provider Unavailable Encounter Details Date Type Department Care Team Description 06/04/2013 Hospital Encounter HX NO MAPPING Iva Guerrero APRN, C.N.P. [address] [phone] (Wo rk) Social History Tobacco Use [...] How often do you attend voodoo or episcopal Never 10/23/2020 services? 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
--- OUTSIDE RECORDS SUMMARY | 2022-07-20 10:55 | XMS_ITS | Encounter Summary ---
:1995 Author Organization [facility] Address [address] [place] [address] Care Team Providers Name Role Phone Unavailable Primary Care Provider Unavailable Encounter Details Date Type Department Care Team Description 03/19/2013 Hospital Encounter HX [facility] FAMILY ME Stephanie Ge M.D. Social [...] How often do you attend restorationist or evangelical Never 10/23/2020 services? 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 - 03/19/2013 12:46 PM CDT [id number] CHIEF COMPLAINT/REASON FOR VISIT Dhiraj is here [...] process she will letus know. Stephanie Ge M.D./[facility] Electronically Signed By: STEPHANIE GE MD On: 03/19/2013 04:18 PM Source: [facility] MHSDOLBEYNONRADSYS Document Id: [id number] documented in this encounter Procedure Notes Shannon Medellin L.PGonzaloNGonzalo - 03/19/2013 11:35 AM CDT Asthma Control Test (12 yrs and older) Asthma Control Test (12 yrs and older) Entered On: 03/20/2013 11:35 CDT Performed On: 03/19/2013 11:35 CDT by SHANNON MEDELLIN LPN ACT Past 4 weeks asthma [...] : Well controlled ACT Score : 21 SHANNON MEDELLIN LPN - 03/20/2013 11:35 CDT Source: [facility] POWERCHART Document Id: [id number] CDT!8 documented in this encounter Miscellaneous Notes Miscellaneous - Shannon Medellin L.PGonzaloNGonzalo - 03/20/2013 11:38 AM CDT Quality Measures Quality Measures Entered On: 03/20/2013 11:39 CDT Performed On: 03/20/2013 11:38 CDT by SHANNON MEDELLIN LPN Asthma Asthma Control Test (ACT) Score : 21 ED visits past yr for asthma w/o hospital stay : 0 Hospitalizations/Overnight Stays in Past yr for Asthma : 0 Asthma Action Plan Provided/Reviewed : Reviewed with the patient Asthma Action Plan Copy : Scanned into EMR SHANNON MEDELLIN LPN - 03/20/2013 11:38 CDT Source: [facility] [employer] Document Id: [id number] CDT!7 Miscellaneous - Stephanie Ge M.D. - 03/19/2013 1:34 PM CDT Ambulatory Patient Summary [address] [id number] Visit Information Name: DHIRAJ LANDA [facility] Number: [id number] Current Date: 03/19/2013 13:34:20 [...] No Appointments found Your Goals/Additional instructions: Source: [facility] POWERCHART Document Id: [id number] Miscellaneous - Stephanie Ge M.D. - 03/19/2013 1:34 PM CDT Ambulatory Depart Summary [address] [address] Visit Information Name: DHIRAJ LANDA [facility] Number: [id number] Visit Date: 03/19/2013 13:34:20 [...] for clarification. Additional Information: Source: [facility] POWERCHART Document Id: [id number] Miscellaneous - Dorian Davenport, L.P.N. 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 - [...] Soft drinks Frequency : Occasionally DORIAN DAVENPORT SKI GUIDE - 03/19/2013 13:00 CDT Recreational Drug Use Grid Drug Use : None DORIAN DAVENPORT SKI GUIDE - 03/19/2013 13:00 CDT Psychosocial Domestic Abuse Concerns : None DORIAN DAVENPORT LPN - 03/19/2013 13:00 CDT Advance Directive Advanced Directives : No DORIAN DAVENPORT LPN - 03/19/2013 13:00 CDT Educ Needs Learning Style Preference Adult Grid Patient : None Family : None DORIAN DAVENPORT LPN - 03/19/2013 13:00 CDT Source: [employer] Document Id: [id number] CDT!32 documented in this encounter Plan of Treatment Not on filedocumented as of this encounter Visit Diagnoses Not on filedocumented in this encounter
--- OUTSIDE RECORDS SUMMARY | 2022-07-20 10:55 | XMS_ITS | Encounter Summary ---
:1995 Author Organization [facility] Address [address] [place] [address] Care Team Providers Name Role Phone Unavailable Primary Care Provider Unavailable Encounter Details Date Type Department Care Team Description 06/06/[address] [facility] Iva Sam, SHAYE N, C.N.P. 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 - 06/06/2013 3:50 PM CDT [id number] Body mass index is 26.61 kg/(me, dates based on early sono. Flu shot today. Nausea but no vomiting. Has parents insurance so she will also apply for [place]. TANISHA Sexual History not in a relationship with Jason RITCHEI S: Carly is a 18 year old y/o, G 1, P 0. She is 8w4d weeks today. She lives in [place] with parents. Carly has been feeling nauseated. 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 Family is close by and supportive. [facility]. Assessment: vitamins: Is taking them. Diet: Regular diet, no history of an eating disorder. Adequate calcium intake discussed. She has notbeen referred to meet with the operating manager. Transportation issues: nnoe Safe relationship: She has no history of abusive relationhips. Financial Concerns: money is tight Insurance: [facility], will apply for [place] Social Service/Public Health: WIC/GCPH She is not [...] REGARDING THESE ISSUES. Electronically signed by Conversion, [facility] Social Insurance Analyst [id number] at 01/10/2017 8:48 PM CDT Conversion, Historical Provider Ser - 06/06/2013 3:50 PM CDT [id number] Carly Joseph is a 18 year old female. Patient received: FLUZONE INJECTION Patient Questionaire: Did you receive a flu vaccine last year?0 I have a fever or feel ill today? No I have an allergy to eggs, gelatin or thimerosal? No I have had a reaction to the flu vaccine the past? No I have had Guillain-Adams syndrome? No I have a Latex Allergy? No VIS information given Source: [facility] RWHXTRANSXRTFSYS Document Id: [id number] documented in this encounter Miscellaneous Notes Miscellaneous - Iva Guerrero C.N.P., R.N. - 06/06/2013 3:50 PM CDT [id number] Carly Joseph [address] [facility] [address] June 11, 2013 MR#: [id number] Dear Carly, I am happy to inform [...] free to give me a call at [phone]. Sincerely, Iva Guerrero RN, DIRECTOR STRATEGIC PLANNING media liaison officer [facility] in [place] Source: [facility] Document Id: [id number] Electronically signed by Conversion, [facility] Social Insurance Analyst [id number] at 01/10/2017 8:48 PM CDT documented in [...] P athologist Signature HBs Antigen, S Negative [facility] Specimen (Source) Anatomical Collection Method Collection Time Re ceived Time Location / / Volume Laterality 06/08/2013 11:46 AM CDT Historical Provider LAB MICROBIOLOGY - BLOOD ORD ERABLES Performing Organization Address City/State/ZIP Code Phon e Number [facility] HIV-1/-2 Ag and Ab Screen (06/08/2013 11:46 AM CDT) P athologist Signature HX Hiv-1/-2 Ab Negative [facility] Screen[facility] Specimen (Source) Anatomical Collection Method Collection Time Re ceived Time Location / / Volume Laterality 06/08/2013 11:46 AM CDT Historical Provider LAB MICROBIOLOGY - BLOOD ORD ERABLES Performing Organization Address City/State/ZIP Code Phon e Number [facility] HCV Ab w/Reflex to HCV PCR, S (06/08/2013 11:46 AM CDT) P athologist Signature HXHep C Ab Negative [facility] Specimen (Source) Anatomical Collection Method Collection Time Re ceived Time Location / / Volume Laterality 06/08/2013 11:46 AM CDT Historical Provider LAB MICROBIOLOGY - BLOOD ORD ERABLES Performing Organization Address City/State/ZIP Code Phon e Number [facility] Rubella Antibodies, IgG (06/08/2013 10:05 AM CDT) P athologist Signature HX Rubella 92 IUML [facility] IgG-[facility] LAB Specimen (Source) Anatomical Collection Method Collection Time Re ceived Time Location / / Volume Laterality 06/08/2013 10:05 AM CDT Narrative [facility] - 10/12/19 14 11:11 PM BARIATRIC SURGEON Interpretation: ??Positive, Immune Historical Provider LAB MICROBIOLOGY - BLOOD ORD ERABLES Performing Organization Address City/State/ZIP Code Phon e Number [facility] Syphilis IgG Antibody with Reflex (06/08/2013 10:04 AM CDT) P athologist Signature Treponema Negative [facility] pallidum Ab by [facility] LAB Specimen (Source) Anatomical Collection Method Collection Time Re ceived Time Location / / Volume Laterality 06/08/2013 10:04 AM CDT Historical Provider LAB BLOOD ADD-ON Performing Organization Address City/State/ZIP Code Phon e Number [facility] HX CULTURE REPORT STATUS (06/08/2013 8:04 AM CDT) Analysis Performed At Patho logist Time Signature CULTURE REPORT FINAL [facility] STATUS 06/08/2013 [facility] LAB Specimen (Source) Anatomical Collection Method Collection Time Re ceived Time Location / / Volume Laterality 06/08/2013 8:04 AM CDT Historical Provider LAB HISTORICAL ORDERS Performing Organization Address City/State/ZIP Code Phon e Number [facility] HX CULTURE (06/08/2013 8:04 AM CDT) Analysis Performed At Patho logist Time Signature Bacterial No growth [facility] Culture, [facility] Aerobic LAB Specimen (Source) Anatomical Collection Method Collection Time Re ceived Time Location / / Volume Laterality 06/08/2013 8:04 AM CDT Historical Provider LAB HISTORICAL ORDERS Performing Organization Address City/State/ZIP Code Phon e Number [facility] HX SN - SPEC - DESCRIPTION (06/08/2013 8:04 AM CDT) Patholo gist Method Time Signature HXSPECIMAN Midstream [facility] DESCRIPTION Urine [facility] LAB Specimen (Source) Anatomical Collection Method Collection Time Re ceived Time Location / / Volume Laterality 06/08/2013 8:04 AM CDT Historical Provider LAB HISTORICAL ORDERS Performing Organization Address City/State/ZIP Code Phon e Number [facility] Platelet Count (06/06/2013 5:16 PM CDT) P athologist Signature Platelet Count 214 109L [facility] Specimen (Source) Anatomical Collection Method Collection Time Re ceived Time Location / / Volume Laterality 06/06/2013 5:16 PM CDT Historical Provider LAB BLOOD ADD-ON Performing Organization Address City/State/ZIP Code Phon e Number [facility] RBC SYSMEX (06/06/2013 5:16 PM CDT) P athologist Signature HX RDW 12.8 [facility] Specimen (Source) Anatomical Collection Method Collection Time Re ceived Time Location / / Volume Laterality 06/06/2013 5:16 PM CDT Historical Provider LAB URINE ORDERABLES Performing Organization Address City/State/ZIP Code Phon e Number [facility] RBC SYSMEX (06/06/2013 5:16 PM CDT) P athologist Signature MCHC 35.0 GMDL [facility] Specimen (Source) Anatomical Collection Method Collection Time Re ceived Time Location / / Volume Laterality 06/06/2013 5:16 PM CDT Historical Provider LAB URINE ORDERABLES Performing Organization Address City/State/ZIP Code Phon e Number [facility] RBC SYSMEX (06/06/2013 5:16 PM CDT) P athologist Signature MCH 30.6 PG [facility] Specimen (Source) Anatomical Collection Method Collection Time Re ceived Time Location / / Volume Laterality 06/06/2013 5:16 PM CDT Historical Provider LAB URINE ORDERABLES Performing Organization Address City/State/ZIP Code Phon e Number [facility] Automated Differential (06/06/2013 5:16 PM CDT) P athologist Signature MCV 88 FL [facility] Specimen (Source) Anatomical Collection Method Collection Time Re ceived Time Location / / Volume Laterality 06/06/2013 5:16 PM CDT Historical Provider LAB BLOOD ADD-ON Performing Organization Address City/State/ZIP Code Phon e Number [facility] Hematocrit (06/06/2013 5:16 PM CDT) P athologist Signature Hematocrit 36.6 [facility] Specimen (Source) Anatomical Collection Method Collection Time Re ceived Time Location / / Volume Laterality 06/06/2013 5:16 PM CDT Historical Provider LAB BLOOD ADD-ON Performing Organization Address City/State/ZIP Code Phon e Number [facility] Hemoglobin (06/06/2013 5:16 PM CDT) P athologist Signature Hemoglobin 12.8 GMDL [facility] Specimen (Source) Anatomical Collection Method Collection Time Re ceived Time Location / / Volume Laterality 06/06/2013 5:16 PM CDT Historical Provider LAB BLOOD ADD-ON Performing Organization Address City/State/ZIP Code Phon e Number [facility] RBC SYSMEX (06/06/2013 5:16 PM CDT) P athologist Signature Erythrocytes 4.18 X10 [facility] Specimen (Source) Anatomical Collection Method Collection Time Re ceived Time Location / / Volume Laterality 06/06/2013 5:16 PM CDT Historical Provider LAB URINE ORDERABLES Performing Organization Address City/State/ZIP Code Phon e Number [facility] CBC with Differential (06/06/2013 5:16 PM CDT) P athologist Signature Leukocytes 8.2 109L [facility] Specimen (Source) Anatomical Collection Method Collection Time Re ceived Time Location / / Volume Laterality 06/06/2013 5:16 PM CDT Historical Provider LAB BLOOD ADD-ON Performing Organization Address City/State/ZIP Code Phon e Number [facility] HX AMORPHOUS CRYSTAL (06/06/2013 5:13 PM CDT) P athologist Signature HXAmorphous Many HPF [facility] Specimen (Source) Anatomical Collection Method Collection Time Re ceived Time Location / / Volume Laterality 06/06/2013 5:13 PM CDT Historical Provider LAB HISTORICAL ORDERS Performing Organization Address City/State/ZIP Code Phon e Number [facility] HX MUCOUS THREADS (06/06/2013 5:13 PM CDT) P athologist Signature HX MUCOUS Present LPF [facility] THREADS [facility] Specimen (Source) Anatomical Collection Method Collection Time Re ceived Time Location / / Volume Laterality 06/06/2013 5:13 PM CDT Historical Provider LAB HISTORICAL ORDERS Performing Organization Address City/State/ZIP Code Phon e Number [facility] Urine Microscopic (06/06/2013 5:13 PM CDT) P athologist Signature HXUr WBC 0 HPF [facility] Specimen (Source) Anatomical Collection Method Collection Time Re ceived Time Location / / Volume Laterality 06/06/2013 5:13 PM CDT Historical Provider LAB URINE ORDERABLES Performing Organization Address City/State/ZIP Code Phon e Number [facility] Urine Microscopic (06/06/2013 5:13 PM CDT) P athologist Signature Red Blood Cell 0 HPF [facility] [place]ump, Urine [facility] Specimen (Source) Anatomical Collection Method Collection Time Re ceived Time Location / / Volume Laterality 06/06/2013 5:13 PM CDT Historical Provider LAB URINE ORDERABLES Performing Organization Address City/State/ZIP Code Phon e Number [facility] HX SP SOURCE (06/06/2013 5:13 PM CDT) Patholo gist Method Time Signature HXSP Source Midstream [facility] Urine [facility] Specimen (Source) Anatomical Collection Method Collection Time Re ceived Time Location / / Volume Laterality 06/06/2013 5:13 PM CDT Historical Provider LAB HISTORICAL ORDERS Performing Organization Address City/State/ZIP Code Phon e Number [facility] Urinalysis, Routine (06/06/2013 5:13 PM CDT) P athologist Signature Leukocyte Negative [facility] Esterase [facility] Specimen (Source) Anatomical Collection Method Collection Time Re ceived Time Location / / Volume Laterality 06/06/2013 5:13 PM CDT Historical Provider LAB URINE ORDERABLES Performing Organization Address City/State/ZIP Code Phon e Number [facility] Urinalysis no Reflex (06/06/2013 5:13 PM CDT) P athologist Signature HXNITRITE Negative [facility] Specimen (Source) Anatomical Collection Method Collection Time Re ceived Time Location / / Volume Laterality 06/06/2013 5:13 PM CDT Historical Provider LAB URINE ORDERABLES Performing Organization Address City/State/ZIP Code Phon e Number [facility] Urobilinogen, QL, Urine (06/06/2013 5:13 PM CDT) P athologist Signature Urobilinogen Normal MGDL [facility] Specimen (Source) Anatomical Collection Method Collection Time Re ceived Time Location / / Volume Laterality 06/06/2013 5:13 PM CDT Historical Provider LAB URINE ORDERABLES Performing Organization Address City/State/ZIP Code Phon e Number [facility] HX UR PROTEIN ALBUMIN (06/06/2013 5:13 PM CDT) P athologist Signature Hx Ur Protein Negative [facility]in [facility] Specimen (Source) Anatomical Collection Method Collection Time Re ceived Time Location / / Volume Laterality 06/06/2013 5:13 PM CDT Historical Provider LAB HISTORICAL ORDERS Performing Organization Address City/State/ZIP Code Phon e Number [facility] pH, Urine (06/06/2013 5:13 PM CDT) P athologist Signature pH, POCT, Urine 6.5 PHUNITS [facility] Specimen (Source) Anatomical Collection Method Collection Time Re ceived Time Location / / Volume Laterality 06/06/2013 5:13 PM CDT Historical Provider LAB URINE ORDERABLES Performing Organization Address City/State/ZIP Code Phon e Number [facility] Urinalysis, Routine (06/06/2013 5:13 PM CDT) P athologist Signature HXBLOOD Negative [facility] Specimen (Source) Anatomical Collection Method Collection Time Re ceived Time Location / / Volume Laterality 06/06/2013 5:13 PM CDT Historical Provider LAB URINE ORDERABLES Performing Organization Address City/State/ZIP Code Phon e Number [facility] Urinalysis, Routine (06/06/2013 5:13 PM CDT) P athologist Signature Specific 1.012 [facility] [place], [place], [facility] LAB Specimen (Source) Anatomical Collection Method Collection Time Re ceived Time Location / / Volume Laterality 06/06/2013 5:13 PM CDT Historical Provider LAB URINE ORDERABLES Performing Organization Address City/State/ZIP Code Phon e Number [facility] Ketones, Qual, Urine (06/06/2013 5:13 PM CDT) athologist Signature Ketones, QL(U) Negative [facility] Specimen (Source) Anatomical Collection Method Collection Time Re ceived Time Location / / Volume Laterality 06/06/2013 5:13 PM CDT Historical Provider LAB URINE ORDERABLES Performing Organization Address City/State/ZIP Code Phon e Number [facility] Bilirubin, Urine (06/06/2013 5:13 PM CDT) athologist Signature HXBILIRUBIN Negative [facility] Specimen (Source) Anatomical Collection Method Collection Time Re ceived Time Location / / Volume Laterality 06/06/2013 5:13 PM CDT Historical Provider LAB URINE ORDERABLES Performing Organization Address City/State/ZIP Code Phon e Number [facility] Urinalysis, Routine (06/06/2013 5:13 PM CDT) P athologist Signature Glucose Negative MGDL [facility] Specimen (Source) Anatomical Collection Method Collection Time Re ceived Time Location / / Volume Laterality 06/06/2013 5:13 PM CDT Historical Provider LAB URINE ORDERABLES Performing Organization Address City/State/ZIP Code Phon e Number [facility] Urinalysis, Routine (06/06/2013 5:13 PM CDT) athologist Signature Appearance Cloudy [facility] Specimen (Source) Anatomical Collection Method Collection Time Re ceived Time Location / / Volume Laterality 06/06/2013 5:13 PM CDT Historical Provider LAB URINE ORDERABLES Performing Organization Address City/State/ZIP Code Phon e Number [facility] Urine Microscopic (06/06/2013 5:13 PM CDT) P athologist Signature HXUr Color Yellow [facility] Specimen (Source) Anatomical Collection Method Collection Time Re ceived Time Location / / Volume Laterality 06/06/2013 5:13 PM CDT Historical Provider LAB URINE ORDERABLES Performing Organization Address City/[facility]/ZIP Code Phon e Number [facility] documented in this encounter Visit Diagnoses Not on filedocumented in this encounter
--- OUTSIDE RECORDS SUMMARY | 2022-07-20 10:55 | XMS_ITS | Encounter Summary ---
:1995 Author Organization [facility] Address [address] [place] [address] Care Team Providers Name Role Phone Unavailable Primary Care Provider Unavailable Encounter Details Date Type Department Care Team Description 08/02/2013 Hospital Encounter [facility] Bridget Saldaña M.D. Social History Tobacco [...] How often do you attend jewish or bahai Never 10/23/2020 services? 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 - 08/02/2013 3:30 PM CST [id number] C/o low backache. Has resolved now. No vaginal bleeding or leaking of fluid. TLM [facility] Document Id: [id number] Electronically signed by Conversion, [facility] Table Games Dual Rate Supervisor [id number] at 01/10/2017 3:03 PM CDT Bridget Harrington M.D. - 08/02/2013 3:30 PM CST [id number] Declines genetic testing. C/o back pain though entirely resolved. Will check ucx. [facility] Document Id: [id number] Electronically signed by Conversion, [facility] Table Games Dual Rate Supervisor [id number] at 01/10/2017 3:03 PM CDT documented in this encounter Miscellaneous Notes Miscellaneous - Bridget Harrington M.D. - 08/02/2013 3:30 PM CST [id number] Carly Joseph [address] [address] [facility] [address] August 09, 2013 Dear Ms. Joseph: I am writing to inform you the results of the laboratory tests you had done during your recent visitto the clinic. Your results included : urine culture was NORMAL. It was a pleasure to see you in the clinic. If you have any further questions or problems, please contact our office at [phone]. Sincerely, Dr. Bridget Harrington MS Dept. FOOD SCIENCE PROFESSOR [facility] in [place] Source: [facility] RWMCHXTRANSXRTFSYS Document Id: [id number] Electronically signed by Conversion, [facility] Table Games Dual Rate Supervisor [id number] at 01/10/2017 3:03 PM CDT documented in this encounter Plan of Treatment Not on filedocumented as of this encounter Procedures Procedure Name Priority Date/Time Associated Comments Diagnosis HX CULTURE REPORT Routine 08/04/2013 9:05 AM Resu lts for this STATUS SCALE OPERATOR procedure are i n the results section. HX SN - SPEC - Routine 08/04/2013 9:05 AM Results for this DESCRIPTION SCALE OPERATOR procedure are i n the results section. HX CULTURE Routine 08/04/2013 9:05 AM Results f or this SCALE OPERATOR procedure are i n the results section. documented in this encounter Results HX CULTURE REPORT STATUS (08/04/2013 9:05 AM SCALE OPERATOR) Analysis Performed At Patho logist Time Signature CULTURE REPORT FINAL [facility] STATUS 08/04/2013 [facility] LAB Specimen (Source) Anatomical Collection Method Collection Time Re ceived Time Location / / Volume Laterality 08/04/2013 9:05 AM SCALE OPERATOR Historical Provider LAB HISTORICAL ORDERS Performing Organization Address City/State/ZIP Code Phon e Number [facility] HX CULTURE (08/04/2013 9:05 AM SCALE OPERATOR) Analysis Performed At Patho logist Time Signature Bacterial No growth [facility] Culture, [facility] Aerobic LAB Specimen (Source) Anatomical Collection Method Collection Time Re ceived Time Location / / Volume Laterality 08/04/2013 9:05 AM SCALE OPERATOR Historical Provider LAB HISTORICAL ORDERS Performing Organization Address City/State/ZIP Code Phon e Number [facility] HX SN - SPEC - DESCRIPTION (08/04/2013 9:05 AM SCALE OPERATOR) Patholo gist Method Time Signature HXSPECIMAN Midstream [facility] DESCRIPTION Urine [facility] Specimen (Source) Anatomical Collection Method Collection Time Re ceived Time Location / / Volume Laterality 08/04/2013 9:05 AM SCALE OPERATOR Historical Provider LAB HISTORICAL ORDERS Performing Organization Address City/State/ZIP Code Phon e Number [facility] documented in this encounter Visit Diagnoses Not on filedocumented in this encounter
--- OUTSIDE RECORDS SUMMARY | 2022-07-20 10:55 | XMS_ITS | Encounter Summary ---
:1995 Author Organization [facility] Address [address] [place] [address] Care Team Providers Name Role Phone Unavailable Primary Care Provider Unavailable Encounter Details Date Type Department Care Team Description 05/10/2012 Hospital Encounter HX [facility] Pako Felix III, M.D. [address] [place] [phone] (Wo rk) Social History Tobacco Use Types [...] How often do you attend worship or christianity Never 10/23/2020 services? 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 - 05/10/2012 3:38 PM CDT [id number] CHIEF COMPLAINT/REASON FOR VISIT Repacking of abscess [...] woundshows a significant pocket that undermines approximately [id number] centimeters in all directions.The area was explored [...] III, MD On: 05/23/2012 04:05 PM Source: [facility] MHSDOLBEYNONRADSYS Document Id: [id number] documented in this encounter Miscellaneous Notes Miscellaneous - Robe Rosario M.D. - 05/10/2012 4:46 PM CDT Ambulatory Patient Summary [id number] [place] [address] Visit Information Name: DHIRAJ LANDA Current Date: [...] Date Time Location Reason Provider 05/12/2012 09:45 [facility] Family Med f/u leg re-packing - per Dr. Rosario - may be seen without Mother Your Goals/Additional instructions: Source: [facility] POWERCHART Document Id: [id number] Miscellaneous - Robe Rosario M.D. - 05/10/2012 4:46 PM CDT Ambulatory Depart Summary [address] [address] Visit Information Name: BLASTERVOLD, DHIRAJ PAWEL Visit Date: 05/10/2012 16:46:06 Attending Provider: ROBE [...] your provider for clarification. Additional Information: Source: [facility] POWERCHART Document Id: [id number] Miscellaneous - Chrissy Dia, L.P.N. - 05/10/2012 3:50 PM CDT Pediatric Skin Diving Teacher Intake/History Pediatric Skin Diving Teacher Intake/History Entered On: 05/10/2012 15:56 CDT Performed [...] LPN; Reviewed Date: 05/10/2012 15:46 CDT Source: [facility] POWERCHART Document Id: [id number] documented in this encounter Plan of Treatment Not on filedocumented as of this encounter Visit Diagnoses Not on filedocumented in this encounter
--- OUTSIDE RECORDS SUMMARY | 2022-07-20 10:55 | XMS_ITS | Encounter Summary ---
:1995 Author Organization [facility] Address [address] [place] [address] Care Team Providers Name Role Phone Unavailable Primary Care Provider Unavailable Encounter Details Date Type Department Care Team Description 05/03/2012 Hospital Encounter HX [facility] [place] Johnnie Walls M.D. [address] [place] [address] [phone] (Wo rk) Social History Tobacco Use Types [...] How often do you attend voodoo or scientologist Never 10/23/2020 services? 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
--- OUTSIDE RECORDS SUMMARY | 2022-07-20 10:55 | XMS_ITS | Encounter Summary ---
:1995 Author Organization [facility] Address [address] [place] [address] Care Team Providers Name Role Phone Unavailable [...] How often do you attend samaritan or anabaptist Never 10/23/2020 services? 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
--- OUTSIDE RECORDS SUMMARY | 2022-07-20 10:55 | XMS_ITS | Encounter Summary ---
:1995 Author Organization [facility] Address [address] [place] [address] Care Team Providers Name Role Phone Unavailable Primary Care Provider Unavailable Encounter Details Date Type Department Care Team Description 05/08/2012 Hospital Encounter HX [facility] [place] Aleida Mejia M.D. Social History [...] How often do you attend temple or mandaen Never 10/23/2020 services? 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 0 2 11/04/2017 (for_ADVAIR DISKUS) 250-50 mcg/dose diskus inhaler documented as of this encounter Progress Notes Ember Bethea L.P.N. - 05/08/2012 4:47 PM CDT Wound Care/Clinic Wound Care/Clinic Entered On: 05/08/2012 16:51 CDT Performed On: 05/08/2012 16:47 CDT by EMBER BETHEA LPN Incision/Wound Incision/Wound Care Grid Activity : Assessed, Dressing changed Type : Other: lanced cyst Location : Other: thigh upper inner Laterality : Right Description : Drainage/Exudate Color : [place] Drainage : Purulent Drainage Amount : Small Surrounding Tissue : Healthy (Comment: red and bruised [EMBER BETHEA LPN - 05/08/2012 16:47 CDT] ) Wound Dressing : Other: Area packed with nugauze and covered with 3x3 and burn netting applied to upper thigh area EMBER BETHEA LPN - 05/08/2012 16:47 CDT [facility] Document Id: [id number] documented in this encounter Plan of Treatment Not on filedocumented as of this encounter Visit Diagnoses Not on filedocumented in this encounter
--- OUTSIDE RECORDS SUMMARY | 2022-07-20 10:55 | XMS_ITS | Encounter Summary ---
:1995 Author Organization [facility] Address [address] [place] [address] Care Team Providers Name Role Phone Unavailable Primary Care Provider Unavailable Encounter Details Date Type Department Care Team Description 05/30/2013 Hospital Encounter [facility] Iva Sam, SHAYE N, C.N.P. [address] [place], [place] [phone] (Wo rk) Social History [...] How often do you attend samaritan or advent Never 10/23/2020 services? 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 Source: [facility] RWHXTRANSXRTFSYS Document Id: [id number] Telephone Encounter - Hailey Jang R.N. - 05/30/2013 12:00 AM CDT [id number] Triage/Phone Nurse: 'How many periods have you [...] happy to assist you with this. Source: [facility] Document Id: [id number] Electronically signed by Stuart, [facility] Wood Carving Machine Operator [id number] at 01/10/2017 8:48 PM CDT documented in this encounter Plan of Treatment Not on filedocumented as of this encounter Visit Diagnoses Not on filedocumented in this encounter
--- OUTSIDE RECORDS SUMMARY | 2022-07-20 10:55 | XMS_ITS | Encounter Summary ---
:1995 Author Organization [facility] Address [address] [place] [address] Care Team Providers Name Role Phone Unavailable Primary Care Provider Unavailable Encounter Details Date Type Department Care Team Description 05/12/2012 Hospital Encounter HX [facility] Pako Felix III, M.D. [address] [place] [address] [phone] (Wo rk) Social History Tobacco Use Types [...] How often do you attend tenriism or tenriism Never 10/23/2020 services? 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
--- OUTSIDE RECORDS SUMMARY | 2022-07-20 10:55 | XMS_ITS | Encounter Summary ---
:1995 Author Organization [facility] Address [address] [place] [address] Care Team Providers Name Role Phone Unavailable Primary Care Provider Unavailable Encounter Details Date Type Department Care Team Description 04/14/2013 [facility] [place] Kelvin Greer M.D. [address] [place] [phone] (Wo rk) Social History Tobacco Use Types [...] How often do you attend confucianist or yarsani Never 10/23/2020 services? 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 - 04/14/2013 8:42 AM CDT [id number] CHIEF COMPLAINT/REASON FOR VISIT Sore throat in [...] GREER MD On: 04/15/2013 08:35 AM Source: [facility] MHSDOLBEYNONRADSYS Document Id: [id number] documented in this encounter Miscellaneous Notes Miscellaneous [...] you ordered q48h . Please advise Source: [facility] Document Id: [id number] Miscellaneous - Betzaida Kahn M.D. - 04/21/2013 [...] well with this option. Nadeem PEREZ Source: [employer] Document Id: [id number] Miscellaneous - Daneila Tan RChristy - 04/18/2013 1:58 PM CDT [...] would like prescription for Diflucan sent to [facility]. Please consider and send rx if you agree. Pt phone [phone] Source: [facility] [employer]Community [employer] Document Id: [id number] Electronically signed by Conversion, [facility] Seam Stayer [id number] at 01/12/2017 2:38 AM CDT Miscellaneous - Sebastian Greer M.D. - 04/14/2013 9:28 AM CDT Ambulatory Depart Summary [address] [address] Visit Information Name: RAYMONDDHIRAJ WRIGHT PAWEL [facility] Number: [id number] Visit Date: 04/14/2013 09:28:56 Attending [...] clarification. Additional Information: Yes - . Source: [facility] POWERCHART Document Id: [id number] Miscellaneous - Sebastian Greer M.D. - 04/14/2013 9:28 AM CDT Ambulatory Patient Summary [address] [place] [address] Visit Information Name: DHIRAJ JOSEPH [facility] Number: [id number] Current Date: 04/14/2013 09:28:57 Physicians [...] No Appointments found Your Goals/Additional instructions: Source: [facility] POWERCHART Document Id: [id number] Miscellaneous - Juana Dennison L.PGonzaloNGonzalo - 04/14/2013 8:58 AM CDT Adult Finishing Wire Sawyer Intake/History Adult Finishing Wire Sawyer Intake/History Entered On: 04/14/2013 9:00 CDT Performed [...] Information Given By : Patient Languages : Japanese JUANA DENNISON - 04/14/2013 8:58 CDT Subjective [...] Soft drinks Frequency : Occasionally JUANA DENNISON - 04/14/2013 8:58 CDT Recreational Drug Use Grid Drug Use : None DENNISONJUANA - 04/14/2013 8:58 CDT Source: [facility] CodasystemCHART Document Id: [id number]!39 documented in this encounter Plan of [...] Strep A Screen (04/14/2013 9:05 AM CDT) [facility] Daqi Method Time Signature HXRapid Strep POWERCHART Confirmation HXPre Negative for POWERCHART Group A Strep by culture. HXFinal Negative for POWERCHART Group A Strep by culture. Specimen Anatomical Collection Method Collection Time Receive d Time (Source) Location / / Volume Laterality Throat 04/14/2013 9:05 AM 3 9:05 CDT AM CDT Sebastian Greer M.D. LAB MICROBIOLOGY - GENERAL O GILBERTO Performing Organization Address City/[facility] Code Phon e Number POWERCHART Rapid Strep A Screen (04/14/2013 9:05 AM CDT) [facility] Daqi Method Time Signature HXStrep A POWERCHART Screen Rapid HXFinal Negative for POWERCHART Strep Group A by rapid screen. HXFinal Culture POWERCHART confirmation to follow. Specimen (Source) Anatomical Collection Method Collection Time Re ceived Time Location / / Volume Laterality Throat 04/14/2013 9:05 AM CDT Sebastian Greer M.D. LAB MICROBIOLOGY - GENERAL O RDKAYLIE Performing Organization Address City/[facility]/ZIP Code Phon e Number POWERCHART documented in this encounter Visit Diagnoses Not on filedocumented in this encounter
--- OUTSIDE RECORDS SUMMARY | 2022-07-20 10:55 | XMS_ITS | Encounter Summary ---
:1995 Author Organization [facility] Address [address] [place] [address] Care Team Providers Name Role Phone Unavailable Primary Care Provider Unavailable Encounter Details Date Type Department Care Team Description 05/31/2013 Hospital Encounter HX NO MAPPING Ancelmo Benítez M.D. 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
--- OUTSIDE RECORDS SUMMARY | 2022-07-20 10:56 | XMS_ITS | Encounter Summary ---
:1995 Author Organization [facility] Address [address] [place] [address] Care Team Providers Name Role Phone Unavailable Primary Care Provider Unavailable Encounter Details Date Type Department Care Team Description 08/11/2007 Hospital Encounter HX [facility] INPT/OBSRV Kerry Galvan M.D. [address] [place] [address] (Wo rk) Social History Tobacco Use Types [...] How often do you attend catholic or taoist Never 10/23/2020 services? 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
--- OUTSIDE RECORDS SUMMARY | 2022-07-20 10:56 | XMS_ITS | Encounter Summary ---
:1995 Author Organization [facility] Address [address] [place] [address] Care Team Providers Name Role Phone Unavailable Primary Care Provider Unavailable Encounter Details Date Type Department Care Team Description 02/15/2012 Hospital En[facility] [place] Manny Diaz, N.P. [address] [place] [address] (Wo rk) Social History Tobacco Use [...] How often do you attend uatsdin or scientology Never 10/23/2020 services? 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 - 02/15/2012 12:00 AM CDT [id number] CHIEF COMPLAINT/REASON FOR VISIT Painful bump on [...] N.P. /anthony Electronically Signed By: SASKIA DIAZ PANEL EDGE SEALER On: 02/22/2012 05:39 PM Source: [facility] MHSDOLBEYNONRADSYS Document Id: [id number] documented in this encounter Miscellaneous Notes Miscellaneous - Saskia Diaz NAmina. - 02/15/2012 10:32 AM CDT Ambulatory Patient Summary [address] [address] Visit Information Name: DHIRAJ LANDA Current Date: [...] [facility] POWERCHART Document Id: [id number] Miscellaneous - Saskia Diaz, N.P. - 02/15/2012 10:32 AM CDT Ambulatory Depart Summary [address] [place] [address] Visit Information Name: DHIRAJ LANDA Visit Date: 02/15/2012 10:32:02 Attending Provider: SASKIA DIAZ PANEL EDGE SEALER Primary Care Provider: JAMARI MCHUGH MD DHIRAJ [...] [facility] POWERCHART Document Id: [id number] Miscellaneous - Bisi Bethea L.P.N. - 02/15/2012 9:37 AM CDT Pediatric Wood Window And Door Craftsman Intake/History Pediatric Wood Window And Door Craftsman Intake/History Entered On: 02/15/2012 9:41 CDT Performed On: 02/15/2012 9:37 CDT by BISI BETHEA TURBINE OPERATOR Intake Chief Complaint : Right ankle [...] LPN; Reviewed Date: 02/15/2012 7:14 CDT Source: [facility] MD.Voice Document Id: [id number] documented in this encounter Plan of Treatment Not on filedocumented as of this encounter Visit Diagnoses Not on filedocumented in this encounter
--- OUTSIDE RECORDS SUMMARY | 2022-07-20 10:56 | XMS_ITS | Encounter Summary ---
:1995 Author Organization [facility] Address [address] [place] [address] Care Team Providers Name Role Phone Unavailable Primary Care Provider Unavailable Encounter Details Date Type Department Care Team Description 09/29/2010 Hospital Encounter HX [facility] [place] Johnnie Mchugh M.D. [address] [place] [address] [phone] (Wo rk) Social History Tobacco Use Types [...] How often do you attend congregational or temple Never 10/23/2020 services? 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 - 09/29/2010 12:00 AM CST [id number] IMPRESSION/REPORT/PLAN Right otitis media. Patient was given [...] JAMARI MCHUGH MD On: 09/30/2010 09:04 Source: [facility] MHSDOLBEYNONRADSYS Document Id: [id number] TIC SHEETING CUTTER documented in this encounter Miscellaneous Notes Miscellaneous - Jamari Mchugh M.D. - 09/29/2010 5:39 PM CST Ambulatory Patient Summary [facility] - [address] [address] Visit Information Name: DHIRAJ LANDA Current Date: [...] Dose Route Frequency Indications/Special Instructions/Comments azithromycin (Zithromax Z-Notrh 250 mg oral tablet) 2 tablets on [...] No Appointments found Your Goals/Additional instructions: Source: [facility] POWERCHART Document Id: [id number] Electronically signed by Conversion, [facility] Manager Of Organizational Development [id number] at 01/16/2017 11:42 AM CDT Miscellaneous - Jamari Mchugh M.D. - 09/29/2010 5:39 PM CST Ambulatory Depart Summary [facility] - [address] [address] Visit Information Name: DHIRAJ LANDA Current Date: [...] to the patient and/or family, guardian/caregiver. Source: [facility] POWERCHART Document Id: [id number] Electronically signed by Stuart [facility] Manager Of Organizational Development [id number] at 01/16/2017 11:42 AM CDT Miscellaneous - Jennifer Medellin L.P.N. - 09/29/2010 5:17 PM CST Adult Home Organizer Intake/History Adult Home Organizer Intake/History Entered On: 09/29/2010 17:20 PLASTIC SHEETING CUTTER Performed On: 09/29/2010 17:17 PLASTIC SHEETING CUTTER by JENNIFER MEDELLIN LPN Intake Chief Complaint: right ear pain and drainage st sinus drainage Onset of Symptoms: 8 hours Temperature Oral: 37.4C(Converted to: 99.3DegF) Peripheral Pulse Rate: 88/min Respiratory Rate: 16/min Systolic Blood Pressure: 118mmHg Diastolic Blood Pressure: 62mmHg NIBP Mean: 81mmHg BP Location: Right upper extremity Heart Rhythm: Regular JENNIFER MEDELLIN LPN - 09/29/2010 17:17 PLASTIC SHEETING CUTTER Subjective Pain Symptoms: Yes JENNIFER MEDELLIN LPN - 09/29/2010 17:17 PLASTIC SHEETING CUTTER Pain Pain Assessment Grid Pain 1 Location: Ear Intensity: 3 JENNIFER MEDELLIN LPN - 09/29/2010 17:17 PLASTIC SHEETING CUTTER Dependent Habits Tobacco Use/Currently Using: No Tobacco Use/Last 12 months: No Tobacco Use/Advised to Quit: No JENNIFER MEDELLIN LPN - 09/29/2010 17:17 PLASTIC SHEETING CUTTER Allergies Allergies (Active) Suprax Estimated Onset Date: Unspecified ; Created By: JENNIFER MEDELLIN LPN; Reaction Status: Active ; Category: Drug ; Substance: Suprax ; Type: Allergy ; Updated By: JENNIFER MEDELLIN LPN; Reviewed Date: 09/29/2010 17:16 PLASTIC SHEETING CUTTER [facility] Document Id: [id number] PLASTIC SHEETING CUTTER!23 TIC SHEETING CUTTER documented in this encounter Plan of Treatment Not on filedocumented as of this encounter Visit Diagnoses Not on filedocumented in this encounter
--- OUTSIDE RECORDS SUMMARY | 2022-07-20 10:56 | XMS_ITS | Encounter Summary ---
:1995 Author Organization [facility] Address [address] [place] [address] Care Team Providers Name Role Phone Unavailable Primary Care Provider Unavailable Encounter Details Date Type Department Care Team Description 04/13/2007 Hospital Encounter HX [facility] Vin Walls, INPT/OBSRV M.D. 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
--- OUTSIDE RECORDS SUMMARY | 2022-07-20 10:56 | XMS_ITS | Encounter Summary ---
:1995 Author Organization [facility] Address [address] [place] [address] Care Team Providers Name Role Phone Unavailable Primary Care Provider Unavailable Encounter Details Date Type Department Care Team Description 10/23/2010 Hospital Encounter [facility] [place] Stephanie eG M.D. Social History Tobacco Use Types Packs/Day [...] How often do you attend gnosticism or anabaptist Never 10/23/2020 services? 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 - 10/23/2010 12:00 AM CST [id number] HISTORY OF PRESENT ILLNESS Sary is here [...] STEPHANIE GE MD On: 10/23/2010 01:53 Source: [facility] MHSDOLBEYNONRADSYS Document Id: [id number] CONSERVATION TEACHER documented in this encounter Miscellaneous Notes Miscellaneous - Vinnie Lyman L.P.N. - 10/23/2010 9:07 AM CST Pediatric Commercial Floor Covering Installer Intake/History Pediatric Commercial Floor Covering Installer Intake/History Entered On: 10/23/2010 9:10 SOIL CONSERVATION TEACHER Performed On: 10/23/2010 9:07 SOIL CONSERVATION TEACHER by VINNIE LYMAN LPN Intake Chief Complaint: Sports Physical Golf Temperature Core: 36.4C(Converted to: 97.5DegF) (LOW) Peripheral Pulse Rate: 70/min Respiratory Rate: 18/min Systolic Blood Pressure: 100mmHg Diastolic Blood Pressure: 52mmHg NIBP Mean: 68mmHg BP Location: Left upper extremity Heart Rhythm: Regular Actual Weight: 68.800kg(Converted to: 151lb 11oz) Weight Source: Standing scale Dosing Weight Clinic: 68.80kg VINNIE LYMAN LPN - 10/23/2010 9:07 SOIL CONSERVATION TEACHER Subjective Pain Symptoms: No VINNIE LYMAN LPN - 10/23/2010 9:07 SOIL CONSERVATION TEACHER Dependent Habits Tobacco Use/Currently Using: No VINNIE LYMAN LPN - 10/23/2010 9:07 SOIL CONSERVATION TEACHER Allergy Allergies (Active) Suprax Estimated Onset Date: Unspecified ; Created By: JENNIFER ARCHIBALD LPN; Reaction Status: Active ; Category: Drug ; Substance: Suprax ; Type: Allergy ; Updated By: JENNIFER ARCHIBALD LPN; Reviewed Date: 10/23/2010 9:07 SOIL CONSERVATION TEACHER Source: [facility] [employer] Document Id: [id number] SOIL CONSERVATION TEACHER!18 CONSERVATION TEACHER documented in this encounter Plan of Treatment Not on filedocumented as of this encounter Visit Diagnoses Not on filedocumented in this encounter
--- OUTSIDE RECORDS SUMMARY | 2022-07-20 10:56 | XMS_ITS | Encounter Summary ---
:1995 Author Organization [facility] Address [address] [place] [address] Care Team Providers Name Role Phone Unavailable Primary Care Provider Unavailable Encounter Details Date Type Department Care Team Description 05/06/2008 Hospital Encounter [facility]X [facility] INPT/OBSRV Kerry Galvan M.D. [address] [place] [address] (Wo rk) Social History Tobacco Use Types [...] How often do you attend orthodox or protestant Never 10/23/2020 services? 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
--- OUTSIDE RECORDS SUMMARY | 2022-07-20 10:56 | XMS_ITS | Encounter Summary ---
:1995 Author Organization [facility] Address [address] [place] [address] Care Team Providers Name Role Phone Unavailable [...] How often do you attend taoism or mosque Never 10/23/2020 services? 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 Thanks [facility] server software engineer Source: [facility] RWHXTRANSXSYS Document Id: [id number] documented in this encounter Plan of Treatment Not on filedocumented as of this encounter Visit Diagnoses Not on filedocumented in this encounter
--- OUTSIDE RECORDS SUMMARY | 2022-07-20 10:56 | XMS_ITS | Encounter Summary ---
:1995 Author Organization [facility] Address [address] [place] [address] Care Team Providers Name Role Phone Unavailable [...] How often do you attend anabaptist or anabaptism Never 10/23/2020 services? 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
--- OUTSIDE RECORDS SUMMARY | 2022-07-20 10:56 | XMS_ITS | Encounter Summary ---
:1995 Author Organization [facility] Address [address] [place] [address] Care Team Providers Name Role Phone Unavailable Primary Care Provider Unavailable Encounter Details Date Type Department Care Team Description 04/04/2007 Hospital Encounter HX [facility] EUGENIA Vin Walls, INPT/OBSRV M.D. [address] [place] [phone] (Wo rk) Social History Tobacco Use [...] How often do you attend worship or baptist Never 10/23/2020 services? Do you [...] at Date Recorded Female 08/12/2017 10:[address] ATTENDANT documented as of this encounter Medications [...]
--- OUTSIDE RECORDS SUMMARY | 2022-07-20 10:56 | XMS_ITS | Encounter Summary ---
:1995 Author Organization [facility] Address [address] [place] [address] Care Team Providers Name Role Phone Unavailable Primary Care Provider Unavailable Encounter Details Date Type Department Care Team Description 10/05/2010 Hospital Encounter HX [facility] [place] Johnnie Mchugh M.D. [address] [place] [phone] (Wo rk) Social History Tobacco Use Types [...] How often do you attend spiritism or latter day Never 10/23/2020 services? 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 - 10/05/2010 12:00 AM CST [id number] CHIEF COMPLAINT/REASON FOR VISIT: 15 -year-old female [...] JAMARI MCHUGH MD On: 10/05/2010 02:55 Source: [facility] MHSDOLBEYNONRADS Document Id: [id number] RVISOR FUNCTIONAL TESTING documented in this encounter Miscellaneous Notes Miscellaneous - Jennifer Medellin LGonzaloP.NGonzalo - 10/05/2010 9:09 AM CST Adult It Infrastructure Consultant Intake/History Adult It Infrastructure Consultant Intake/History Entered On: 10/05/2010 9:11 SUPERVISOR FUNCTIONAL TESTING Performed On: 10/05/2010 9:09 SUPERVISOR FUNCTIONAL TESTING by JENNIFER MEDELLIN LPN Intake Chief Complaint: fever cough sob Onset of Symptoms: 2 days Temperature Oral: 38.4C(Converted to: 101.1DegF) (>HHI) Peripheral Pulse Rate: 128/min (HI) Respiratory Rate: 22/min (HI) SpO2: 97% Heart Rhythm: Regular Oxygen Therapy: Room air JENNIFER MEDELLIN LPN - 10/05/2010 9:09 SUPERVISOR FUNCTIONAL TESTING Subjective Pain Symptoms: No JENNIFER MEDELLIN LPN - 10/05/2010 9:09 SUPERVISOR FUNCTIONAL TESTING Dependent Habits Tobacco Use/Currently Using: No Tobacco Use/Last 12 months: No Tobacco Use/Advised to Quit: No JENNIFER MEDELLIN LPN - 10/05/2010 9:09 SUPERVISOR FUNCTIONAL TESTING Allergies Allergies (Active) Suprax Estimated Onset Date: Unspecified ; Created By: JENNIFER MEDELLIN LPN; Reaction Status: Active ; Category: Drug ; Substance: Suprax ; Type: Allergy ; Updated By: JENNIFER MEDELLIN LPN; Reviewed Date: 09/29/2010 17:16 SUPERVISOR FUNCTIONAL TESTING Source: [facility] POWERCHART Document Id: [id number] SUPERVISOR FUNCTIONAL TESTING!16 RVISOR FUNCTIONAL TESTING documented in this encounter Plan of Treatment Not on filedocumented as of this encounter Visit Diagnoses Not on filedocumented in this encounter
--- OUTSIDE RECORDS SUMMARY | 2022-07-20 10:56 | XMS_ITS | Encounter Summary ---
:1995 Author Organization [facility] Address [address] [place] [address] Care Team Providers Name Role Phone Unavailable Primary Care Provider Unavailable Encounter Details Date Type Department Care Team Description 09/13/2009 Hospital Encounter HX [facility] INPT/OBSRV Kerry Galvan M.D. [address] [place] [address] (Wo rk) Social History Tobacco Use Types [...] How often do you attend christianity or scientology Never 10/23/2020 services? Do you [...] at Date Recorded Female 08/12/2017 10:51 AM NEGATIVE CUTTER documented as of this encounter Medications [...]
--- OUTSIDE RECORDS SUMMARY | 2022-07-20 10:56 | XMS_ITS | Encounter Summary ---
:1995 Author Organization [facility] Address [address] [place] [address] Care Team Providers Name Role Phone Unavailable Primary Care Provider Unavailable Encounter Details Date Type Department Care Team Description 04/26/2012 Hospital Encounter HX [facility] ED Juana Zabala , P.A.-C. [address] [place] [phone] (Wo rk) Social History Tobacco [...] How often do you attend adventism or alevism Never 10/23/2020 services? 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 The following includes patient education materials and informationregarding your injury/illness. Chief Complaint: Eruption of skin; rash on left thigh Follow-Up Instructions: With: Address: When: Follow up with primary care provider Within 2 - 4 days Comments: For recheck Patient Education Materials: [id number] CELLULITIS You have an infection of the [...] rectal, after two days on antibiotics ?? [id number] The [employer], [address] [place] [address], [place] [address]. All rights reserved. This information is not [...] Responsible Republican/Relationship Date/Time Provider Signature Date/Time Source: [facility] POWERCHART Document Id: [id number] Vandana Marsh R.N. - 04/29/2012 11:36 AM CDT ED Depart Summary [facility] Emergency Department Clinical Discharge Summary PERSON INFORMATION Name DHIRAJ LANDA Age 17 Years 1995 12:00 AM Sex Female Language Maldivian PCP JAMARI MCHUGH MD Marital Status Single Visit Id Visit Reason Eruption of skin; rash on left thigh Specialty Enc Type Emergency Med Service Emergency Medicine Referred by Track Group [facility] ED Discharge 04/26/2012 11:00 PM Tracking Id [id number] Checkout 04/27/2012 11:01 AM Checkin 04/26/2012 9:32 PM Acuity Dispo Type * Discharged to Home or Self Care Arrival 04/26/2012 9:32 PM Reg Status LOS 000 13:29 Address: [address] [place] [phone] Comment: PROVIDER INFORMATION Provider Role Provider Contact Time JUANA ZABALA ED Provider 04/26/12 22:01 JAMARI MCHUGH MD ED Provider 04/27/12 08:28 DIAGNOSIS Cellulitis of the leg 682.6 Comment: PATIENT EDUCATION INFORMATION Instructions: CELLULITIS Follow up: With: Address: When: Follow up with primary care provider Within 2 - 4 days Comments: For recheck Source: [facility] [employer] Document Id: [id number] documented in this encounter Medications at Time [...] Nursing ; Code: 1231 ; Contributor System: [employer]Stream ; Last Updated: 09/29/2010 17:17 BARKEEPER ; Life Cycle Date: 09/29/2010 ;Life Cycle [...] Nursing ; Code: 1231 ; Contributor System: [employer] ; Last Updated: 09/29/2010 14:18 BARKEEPER ; Life Cycle Date: 09/15 ; Life Cycle Status: Active ; Responsible Provider: JENNIFER ARCHIBALD LPN; Vocabulary: ICD-9-CM Diagnoses(Active) Eruption of skin Date: 04/26/2012 ; Diagnosis Type: Reason For Visit ; Confirmation: Complaint of ; Clinical Dx: Eruption of skin ; Classification: Medical ; Clinical Service: Emergency medicine ; Code: PNED ; Probability: 0 ; Diagnosis Code: [id number] Triage Chief Complaint Description : 17 year old female admits with eruption on inner thigh of left leg. Ptdenies having a bug bite or pimple there. Pt states she noticed it this am but redeness worse tonight Information Given By : Patient, Mother Accompanied By : Grandparent, Mother Mode of Arrival ED : Private vehicle Track : Medical Languages : Maldivian CHANDNI HIGGINS RN - 04/26/2012 21:38 CDT [...] HIGGINS RN - 04/26/2012 21:38 CDT [facility] Document Id: [id number] documented in this encounter ED Notes Juana [...] primary or secondary; younger than age 12 ([address]57) in 2000 at 5 Years. Family history: [...] Stable. Disposition: Discharged: to home. Prescriptions: Prescription Account Engineer. Pharmacy: amoxicillin-clavulanate 875 mg-125 mg oral tablet [...] JUANA ZABALA On: 04/26/2012 11:39 PM Source: [facility] POWERCHART Document Id: [id number]} documented in this encounter Miscellaneous Notes Miscellaneous - Kristin Woods RGonzaloN. - 04/26/2012 9:32 PM CDT Facility [...] Control : 4 Lynx Visit Level : 49104 Level 2 KRISTIN WOODS RN - 04/27/2012 8:52 CDT Source: [employer] Document Id: [id number] documented in this encounter Plan of Treatment Not on filedocumented as of this encounter Visit Diagnoses Not on filedocumented in this encounter
--- OUTSIDE RECORDS SUMMARY | 2022-07-20 10:56 | XMS_ITS | Encounter Summary ---
:1995 Author Organization [facility] Address [address] [place] [address] Care Team Providers Name Role Phone Unavailable Primary Care Provider Unavailable Encounter Details Date Type Department Care Team Description 12/12/2011 Hospital Encounter HX [facility] ED Ramsey Kahn M.D. 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 The following includes patient education materials and informationregarding your injury/illness. Chief Complaint: mono /sore throat Follow-Up Instructions: With: Address: When: DALJIT ARREOLA [address] [place] [address] Business (1) Within AsNeeded Comments: Patient Education Materials: [id number] MONONUCLEOSIS Mononucleosis (Concho) is a contagious viral infection. Most infants and children exposed to the virus get only mild flu-like symptoms or no symptoms at all. However, when infection occurs in teens andyoung adults, it causes Mononucleosis. Once infected, you are immune and cannot catch Concho again; h owever, the virus stays in [...] week or more than three weeks, the Concho-Spot test used to diagnose this disease may [...] but a drug reaction with the virus. Concho can cause your spleen to swell. The [...] It may cause severe liver damage.) 4) Leus-cwa-bpelzjt lozenges or spray may be used for [...] itchy rash, you may take Benadryl (an zhoy-uns-xzfcrcn antihistamine). Use lower doses during the daytime [...] stiff neck, headache or facial weakness ?? [id number] The [employer], [address] [place] [address]. All rights reserved. This information is not intended as a substitute for professional medical care. Always follow your healthcare professional's instructions. [id number] MEDICATION: TYLENOL & CODEINE You have been [...] any questions that you may have.] ?? [id number] [employer], [address] [place] [address]. All rights reserved. This information is not [...] a ride home with a responsible republican. SYEDA Madrid JACALYN MARIE , or responsible republican have received this information and my questions have been answered. I have discussed any challenges I see with this plan with the nurse or physician. Patient Signature or Responsible Democrat/Relationship Date/Time Provider Signature Date/Time Source: [employer] Document Id: [id number] Kristin Woods R.N. - 12/12/2011 8:13 AM CDT ED Depart Summary [facility] Emergency Department Clinical Discharge Summary PERSON INFORMATION Name DHIRAJ LANDA Age 16 Years 1995 12:00 PM Sex Female Language Ghanaian PCP JAMARI MCHUGH MD Marital Status Single Visit Id Visit Reason mono /sore throat Specialty Enc Type Emergency Med Service Emergency Medicine Referred by Track Group [facility] ED Discharge 12/12/2011 8:13 AM Tracking Id [id number] Checkout 12/12/2011 8:13 AM Checkin 12/12/2011 6:57 AM Acuity Dispo Type * Discharged to Home or Self Care Arrival 12/12/2011 6:57 AM Reg Status Complete LOS 000 01:16 Address: [address] [place] [phone] Comment: PROVIDER INFORMATION Provider Role Provider Contact Time KRISTIN WOODS USER INTERFACE DESIGNER Nurse 12/12/11 07:12 BETZAIDA KAHN MD ED Provider 12/12/11 07:25 DIAGNOSIS mononucleosis Comment: PATIENT EDUCATION INFORMATION Instructions: MONONUCLEOSIS; TYLENOL AND CODEINE Follow up: With: Address: When: DALJIT ARREOLA [address] [place] [address] [phone] [facility] () Within AsNeeded Comments: Source: [facility] POWERCHART Document Id: [id number] documented in this encounter Medications at Time [...] WOODS RN - 12/12/2011 8:12 CDT Source: [facility] [employer] Document Id: [id number] CDT!3 Kristin Woods R.N. - 12/12/2011 7:15 [...] Nursing ; Code: 1231 ; Contributor System: [employer] ; Last Updated: 09/29/2010 17:17 DATA CONSULTANT ; Life Cycle Date: 09/29/2010 ;Life Cycle [...] Nursing ; Code: 1231 ; Contributor System: [employer] ; Last Updated: 09/29/2010 14:18 DATA CONSULTANT ; Life Cycle Date: 09/15 ; Life Cycle Status: Active ; Responsible Provider: JENNIFER ARCHIBALD LPN; Vocabulary: ICD-9-CM Diagnoses(Active) Throat pain - Pediatric Date: 12/12/2011 ; Diagnosis Type: Reason For Visit ; Confirmation: Complaint of ; Clinical Dx: Throat pain - Pediatric ; Classification: Medical ; Clinical Service: Emergency medicine ; Code: PNED ; Probability: 0 ; Diagnosis Code: [id number] Triage Chief Complaint Description : sore throat pain . HX of mono diagnosis last tuesday Mode of Arrival ED : Private vehicle Track : Medical Languages : Ghanaian KRISTIN WOODS RN - 12/12/2011 7:15 CDT [...] CDT Musculoskeletal Fall Prevention Education Provided : NA KRISTIN WOODS RN - 12/12/2011 7:15 CDT Social Habits [...] WOODS RN - 12/12/2011 7:15 CDT Source: [employer] Document Id: [id number] CDT!44 documented in this encounter ED Notes Kristin Woods R.N. - 12/12/2011 8:12 AM CDT ED Disposition Summary ED Disposition Summary Entered On: 12/12/2011 8:12 CDT Performed On: 12/12/2011 8:12 CDT by KRISTIN WOODS USER INTERFACE DESIGNER Disposition Summary Accompanied By : Mother Mode of Discharge : Ambulatory Transportation : Private vehicle Printed Discharge Instructions Given to Patient : Yes Patient Status at Discharge from ED : Unchanged KRISTIN WOODS RN - 12/12/2011 8:12 CDT Source: [employer] Document Id: [id number] CDT!7 Betzaida Kahn M.D. - 12/12/2011 7:31 [...] Ibuprofen or tylenol. Patient was diagnosed with Concho last Tuesday. History of Present Illness The [...] primary or secondary; younger than age 12 ([address]) in 1999 at 5 Years. Social history: [...] KAHN MD On: 12/12/2011 08:17 AM Source: [facility] [employer] Document Id: [id number]} Kristin Woods, R.N. - 12/12/2011 7:12 AM CDT ED Triage Assessment ED Triage Assessment Entered On: 12/12/2011 7:15 CDT Performed On: 12/12/2011 7:12 CDT by KRISTIN WOODS RN Reason For Visit Problems(Active) Allergic asthma NOS with status asthmaticus Name of Problem: Allergic asthma NOS with status asthmaticus ; Recorder: JENNIFER ARCHIBALD LPN; Confirmation: Confirmed ; Classification: Nursing ; Code: 1231 ; Contributor System: [employer] ; Last Updated: 09/29/2010 17:17 DATA CONSULTANT ; Life Cycle Date: 09/29/2010 ;Life Cycle [...] Nursing ; Code: 1231 ; Contributor System: [employer] ; Last Updated: 09/29/2010 14:18 DATA CONSULTANT ; Life Cycle Date: 09/15 ; Life Cycle Status: Active ; Responsible Provider: JENNIFER ARCHIBALD LPN; Vocabulary: ICD-9-CM Diagnoses(Active) Throat pain - Pediatric Date: 12/12/2011 ; Diagnosis Type: Reason For Visit ; Confirmation: Complaint of ; Clinical Dx: Throat pain - Pediatric ; Classification: Medical ; Clinical Service: Emergency medicine ; Code: PNED ; Probability: 0 ; Diagnosis Code: [id number] Triage Chief Complaint Description : 16 year old female admitted to ER with complaints of sore throat not relieved with Ibuprofen or tylenol. Patient was diagnosed with Concho last Tuesday. Information Given By : Mother Accompanied By : Mother Mode of Arrival ED : Private vehicle Track : Medical Languages : Ghanaian Vital Signs Assessed : Yes Treatments Prior [...] LPN; Reviewed Date: 12/07/2011 9:04 CDT [facility] Document Id: [id number] CDT!33 documented in this encounter Miscellaneous Notes Miscellaneous - Kristin Woods R.N. - 12/12/2011 8:12 AM CDT Valuables/Belongings Valuables/Belongings Entered On: 12/12/2011 8:12 CDT Performed On: 12/12/2011 8:12 CDT by KRISTIN WOODS RN Valuables/Belongings Belongings Sent Home With : sent home with patient Home Medication Disposition : None brought in with patient KRISTIN WOODS RN - 12/12/2011 8:12 CDT Source: [employer] Document Id: [id number] CDT!4 Miscellaneous - Kristin Woods R.N. - [...] Control : 5 Lynx Visit Level : 25414 Level 3 Treatments Prior to Arrival : Other: Tylenol at 0330. KRISTIN WOODS RN - 12/12/2011 8:12 CDT Chief Complaint 8.50.02 Reason For Visit Category : EENT and dental ED Chief Complaint EENT and Dental 8.5 : Throat pain TVL Calc : 8 TVL for Facility Charge Ticket Dx : Level 3 KRISTIN WOODS RN - 12/12/2011 8:12 CDT Source: [employer] Document Id: [id number] CDT!18 documented in this encounter Plan of Treatment Not on filedocumented as of this encounter Visit Diagnoses Not on filedocumented in this encounter
--- OUTSIDE RECORDS SUMMARY | 2022-07-20 10:56 | XMS_ITS | Encounter Summary ---
:1995 Author Organization [facility] Address [address] [place] [address] Care Team Providers Name Role Phone Unavailable Primary Care Provider Unavailable Encounter Details Date Type Department Care Team Description 06/28/2007 Hospital [facility] INPT[facility]OBSRV Kerry Galvan M.D. [address] [place] [address] (Wo rk) Social History Tobacco Use Types [...] How often do you attend mu-ism or rastafari Never 10/23/2020 services? 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
--- OUTSIDE RECORDS SUMMARY | 2022-07-20 10:56 | XMS_ITS | Encounter Summary ---
:1995 Author Organization [facility] Address [address] [place] [address] Care Team Providers Name Role Phone Unavailable Primary Care Provider Unavailable Encounter Details Date Type Department Care Team Description 04/25/2007 Hospital Encounter HX [facility] EUGENIA Vin Walls, INPT/OBSRV M.D. [address] [place] [phone] (Wo rk) Social History Tobacco Use [...] How often do you attend pentecostalism or caodaism Never 10/23/2020 services? 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
--- OUTSIDE RECORDS SUMMARY | 2022-07-20 10:56 | XMS_ITS | Encounter Summary ---
:1995 Author Organization [facility] Address [address] [place] [address] Care Team Providers Name Role Phone Unavailable Primary Care Provider Unavailable Encounter Details Date Type Department Care Team Description 07/01/2008 Hospital Encounter [facility] INPT/OBSRV Kerry Galvan M.D. [address] [place] [address] (Wo rk) Social History Tobacco Use Types [...] How often do you attend voodoo or jew Never 10/23/2020 services? 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
--- OUTSIDE RECORDS SUMMARY | 2022-07-20 10:56 | XMS_ITS | Encounter Summary ---
:1995 Author Organization [facility] Address [address] [place] [address] Care Team Providers Name Role Phone Unavailable [...] How often do you attend temple or scientologist Never 10/23/2020 services? 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
--- OUTSIDE RECORDS SUMMARY | 2022-07-20 10:56 | XMS_ITS | Encounter Summary ---
:1995 Author Organization [facility] Address [address] [place] [address] Care Team Providers Name Role Phone Unavailable Primary Care Provider Unavailable Encounter Details Date Type Department Care Team Description 06/02/[address] [facility] Maureen petersen M.D. 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 - 06/02/2011 12:00 AM CDT [id number] CHIEF COMPLAINT/REASON FOR VISIT Sinus congestion. HISTORY [...] BACA MD On: 06/15/2011 08:44 AM Source: [facility] MHSDOLBEYNNEIL Document Id: [id number] documented in this encounter Miscellaneous Notes Miscellaneous [...] BACA MD - 06/02/2011 20:00 CDT Source: [facility] [employer] Document Id: [id number] CDT!7 Miscellaneous - Maureen Mancilla M.D. - 06/02/2011 5:34 PM CDT Ambulatory Patient Summary [address] [address] Visit Information Name: DHIRAJ LANDA Current Date: [...] No Appointments found Your Goals/Additional instructions: Source: [facility] [employer] Document Id: [id number] Electronically signed by Conversion, [facility] Restaurant Assistant Manager [id number] at 01/16/2017 4:24 PM CDT Miscellaneous - Maureen Mancilla M.D. - 06/02/2011 5:34 PM CDT Ambulatory Depart Summary [address] [address] Visit Information Name: DHIRAJ LANDA Current Date: [...] to the patient and/or family, guardian/caregiver. Source: [facility] POWERCHART Document Id: [id number] Electronically signed by Conversion, [facility] Restaurant Assistant Manager [id number] at 01/16/2017 4:24 PM CDT Miscellaneous - Chrissy Dia L.P.N. - 06/02/2011 5:13 PM CDT Pediatric Pea Viner Mechanic Intake/History Pediatric Pea Viner Mechanic Intake/History Entered On: 06/02/2011 17:20 CDT Performed [...] JENNIFER ARCHIBALD LPN; Reviewed Date: 10/23/2010 9:07 DIRECTOR OF FIELD SERVICE Source: [facility] [employer] Document Id: [id number] CDT!29 documented in this encounter Plan of Treatment Not on filedocumented as of this encounter Visit Diagnoses Not on filedocumented in this encounter
--- OUTSIDE RECORDS SUMMARY | 2022-07-20 10:56 | XMS_ITS | Encounter Summary ---
:1995 Author Organization [facility] Address [address] [place] [address] Care Team Providers Name Role Phone Unavailable Primary Care Provider Unavailable Encounter Details Date Type Department Care Team Description 06/10/2009 Hospital Encounter HX [facility] INPT/OBSRV Kerry Galvan M.D. [address] [place] [address] (Wo rk) Social History Tobacco Use Types [...] How often do you attend samaritan or mosque Never 10/23/2020 services? 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
--- OUTSIDE RECORDS SUMMARY | 2022-07-20 10:56 | XMS_ITS | Encounter Summary ---
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
--- OUTSIDE RECORDS SUMMARY | 2022-07-20 10:56 | XMS_ITS | Encounter Summary ---
:1995 Author Organization [facility] Address [address] [place] [address] Care Team Providers Name Role Phone Unavailable Primary Care Provider Unavailable Encounter Details Date Type Department Care Team Description 10/09/2007 Hospital Encounter [facility]X [facility] INPT/OBSRV Armond Salguero M.D. [address] [place], [place] [address] (Wo rk) Social History [...] How often do you attend restorationist or sikh Never 10/23/2020 services? 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
--- OUTSIDE RECORDS SUMMARY | 2022-07-20 10:56 | XMS_ITS | Encounter Summary ---
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
--- OUTSIDE RECORDS SUMMARY | 2022-07-20 10:56 | XMS_ITS | Encounter Summary ---
:1995 Author Organization [facility] Address [address] [place] [address] Care Team Providers Name Role Phone Unavailable Primary Care Provider Unavailable Encounter Details Date Type Department Care Team Description 05/21/2010 Hospital Encounter HX [facility] INPT/OBSRV Rodrigo Reyes M.D. [address] [place] [address] (Wo rk) Social History Tobacco Use Types [...] How often do you attend yazdanism or gnosticism Never 10/23/2020 services? 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
--- OUTSIDE RECORDS SUMMARY | 2022-07-20 10:56 | XMS_ITS | Encounter Summary ---
:1995 Author Organization [facility] Address [address] [place] [address] Care Team Providers Name Role Phone Unavailable Primary Care Provider Unavailable Encounter Details Date Type Department Care Team Description 12/07/2011 Hospital Encounter HX [facility], [facility] [address] [place] [address] (Wo rk) Social History Tobacco [...] How often do you attend baptist or amish Never 10/23/2020 services? 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 Her mom is waiting in the frents. She is complaining of a sore throat [...] LABORATORY DATA: Rapid strep test was negative. Dixon was positive. IMPRESSION/REPORT/PLAN 1. Mononucleosis. PLAN: Information [...] JULIA ARREOLA On: 12/14/2011 02:09 PM Source: [facility] MHSDOLBEYNONRADSYS Document Id: [id number] documented in this encounter Miscellaneous Notes Miscellaneous - Julia Arreola - 12/07/2011 5:23 PM CDT Ambulatory Depart Summary [id number] [place] [address] Visit Information Name: CARLY LANDA Visit Date: [...] your provider for clarification. Additional Information: Source: [facility] POWERCHART Document Id: [id number] Miscellaneous - Julia Arreola - 12/07/2011 5:23 PM CDT Ambulatory Patient Summary [address] [address] Visit Information Name: CARLY LANDA Current Date: [...] No Appointments found Your Goals/Additional instructions: Source: [facility] POWERCHART Document Id: [id number] Miscellaneous - Conversion, Historical Provider Ser - 12/07/2011 9:02 AM CDT Pediatric Food Service Technician Intake/History Pediatric Food Service Technician Intake/History Entered On: 12/07/2011 9:04 CDT Performed [...] Dosing Weight Clinic : 72.60kg ERWIN COLON [facility] - 12/07/2011 9:02 CDT Subjective Pain Symptoms : Yes ERWIN COLON [facility]ERAL HOME ASSISTANT - 12/07/2011 9:02 CDT Pain Pain Assessment Grid Pain 1 Location : Throat Intensity : 3 ERWIN COLON FUNERAL HOME ASSISTANT - 12/07/2011 9:02 CDT Dependent Habits Tobacco Use/Currently Using : No Smoking Status : Never smoker ERWIN COLON FUNERAL HOME ASSISTANT - 12/07/2011 9:02 CDT Caffeine Use Grid Caffeine Use : Current Type : Soft drinks Frequency : Daily ERWIN COLON [facility] - 12/07/2011 9:02 CDT Recreational Drug Use Grid Drug Use : None ERWIN COLON FUNERAL HOME ASSISTANT - 12/07/2011 9:02 CDT Allergy Allergies (Active) Suprax Estimated Onset Date: Unspecified ; Created By: JENNIFER ARCHIBALD LPN; Reaction Status: Active ; Category: Drug ; Substance: Suprax ; Type: Allergy ; Updated By: JENNIFER ARCHIBALD LPN; Reviewed Date: 07/29/2011 16:53 ORDNANCE TECHNICIAN Source: [facility] Indiewalls Document Id: [id number] CDT!29 documented in this encounter Plan of [...] Mononucleosis Screen, POCT (12/07/2011 9:35 AM CDT) [facility] gist Method Time Signature Infectious (POSITIVE) POWERCHART Dixon Test, S HXFinal Positive POWERCHART HXFinal Reference: POWERCHART Negative Specimen (Source) Anatomical Collection Method Collection Time Re ceived Time Location / / Volume Laterality Blood 12/07/2011 9:35 AM CDT Julia Lewis P.A.-C., P.A. LAB POCT ORDERABLES-OK NORMVT Performing Organization Address City/State/ZIP Code Phon e Number POWERCHART Rapid Strep A Screen (12/07/2011 9:33 AM CDT) [facility] Method Time Signature HXRapid Strep POWERCHART Confirmation HXPre Negative for POWERCHART Group A Strep by culture. HXFinal Negative for POWERCHART Group A Strep by culture. Specimen Anatomical Collection Method Collection Time Receive d Time (Source) Location / / Volume Laterality Throat 12/07/2011 9:33 AM 2 9:33 CDT AM CDT Julia Arreola P.A.-C., P.A. LAB MICROBIOLOGY - GEN ERAL ORDERABLES Performing Organization Address [facility] Code Phon e Number POWERCHART Rapid Strep A Screen (12/07/2011 9:33 AM CDT) [facility] Method Time Signature HXStrep A POWERCHART Screen Rapid HXFinal Negative for POWERCHART Strep Group A by rapid screen. HXFinal Culture POWERCHART confirmation to follow. Specimen (Source) Anatomical Collection Method Collection Time Re ceived Time Location / / Volume Laterality Throat 12/07/2011 9:33 AM CDT Julia Arreola P.A.-C., P.A. LAB MICROBIOLOGY - GEN ERAL ORDERABLES Performing Organization Address City/[facility]/ZIP Code Phon e Number POWERCHART documented in this encounter Visit Diagnoses Not on filedocumented in this encounter
--- OUTSIDE RECORDS SUMMARY | 2022-07-20 10:56 | XMS_ITS | Encounter Summary ---
:1995 Author Organization [facility] Address [address] [place] [address] Care Team Providers Name Role Phone Unavailable Primary Care Provider Unavailable Encounter Details Date Type Department Care Team Description 12/19/2008 Hospital Encounter [facility] INPT/OBSRV Kerry Galvan M.D. [address] [place] [address] (Wo rk) Social History Tobacco Use Types [...] How often do you attend orthodox or catholic Never 10/23/2020 services? 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
--- OUTSIDE RECORDS SUMMARY | 2022-07-20 10:56 | XMS_ITS | Encounter Summary ---
:1995 Author Organization [facility] Address [address] [place] [address] Care Team Providers Name Role Phone Unavailable Primary Care Provider Unavailable Encounter Details Date Type Department Care Team Description 12/11/2007 Hospital Encounter [facility] INPT/OBSRV Aleida Mejia M.D. 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
--- OUTSIDE RECORDS SUMMARY | 2022-07-20 10:56 | XMS_ITS | Encounter Summary ---
:1995 Author Organization [facility] Address [address] [place] [address] Care Team Providers Name Role Phone Unavailable Primary Care Provider Unavailable Encounter Details Date Type Department Care Team Description 07/29/2011 Hospital Encounter HX [facility]ILY ME Haven Obando, TOBI, C.N.P., D. N.P. [address] [place] [address] (Wo rk) Social History Tobacco [...] How often do you attend scientologist or pentecostal Never 10/23/2020 services? 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 - 07/29/2011 12:00 AM CST [id number] CHIEF COMPLAINT/REASON FOR VISIT Left ear pain. [...] that she has not been using any rtup-wun-amapspe medication to help with her symptoms and states that her family members have similar upper respiratory infection like symptoms as well. PAST MEDICAL/SURGICAL HISTORY Past medical, surgical history reviewed. Please see chart. CURRENT MEDICATIONS Reviewed. Please see chart. ALLERGIES Reviewed. Please see chart. PHYSICAL EXAMINATION PHYSICAL EXAM OBJECTIVE: Patient is alert, well-nourished, acting appropriately for age. HEAD: Normocephalic/atraumatic. PUPILS: MARY. OROPHARYNX: Granite and moist. EARS: The left tympanic membrane [...] the left eustachian tube area, taking Sudafed pwtk-ixv-hjxuvhn as directed on package p.r.n. as a [...] per mother's request) that was sent to [place] though indicating only to fill per parent [...] DNP, FNP On: 08/10/2011 11:46 AM Source: [facility] MHSDOLBEYNONRADSYS Document Id: [id number] RNATIONAL STUDENT COUNSELOR documented in this encounter Miscellaneous Notes Miscellaneous - Haven Obando D.N.P., C.N.P. - 07/29/2011 5:20 PM INTERNATIONAL STUDENT COUNSELOR Ambulatory Patient Summary [address] [place] [address] Visit Information Name: DHIRAJ LANDA Current Date: [...] No Appointments found Your Goals/Additional instructions: Source: [facility] POWERCHART Document Id: [id number] RNATIONAL STUDENT COUNSELOR Miscellaneous - Haven Obando D.N.P., C.N.P. - 07/29/2011 5:20 PM INTERNATIONAL STUDENT COUNSELOR Ambulatory Depart Summary [address] [place] [address] Visit Information Name: DHIRAJ LANDA Current Date: 07/29/2011 17:20:24 Physicians Attending Physician: HAVEN OBANDO DNP, SCIENTIFIC TECHNICAL WRITER Primary Care Provider: JAMARI MCHUGH MD DHIRAJ [...] to the patient and/or family, guardian/caregiver. Source: [facility] POWERCHART Document Id: [id number] RNATIONAL STUDENT COUNSELOR Miscellaneous - Haven Obando D.N.PGonzalo, C.N.P. - 07/29/2011 5:19 PM INTERNATIONAL STUDENT COUNSELOR Quality Measures Quality Measures Entered On: 07/29/2011 17:19 INTERNATIONAL STUDENT COUNSELOR Performed On: 07/29/2011 17:19 INTERNATIONAL STUDENT COUNSELOR by HAVEN OBANDO DNP, FNP Asthma Asthma Control Test (ACT) Score : 20 HAVEN OBANDO DNP, FNP - 07/29/2011 17:19 INTERNATIONAL STUDENT COUNSELOR Source: [facility] [employer] Document Id: [id number] INTERNATIONAL STUDENT COUNSELOR!3 RNATIONAL STUDENT COUNSELOR Miscellaneous - Conversion, Historical Provider Ser - 07/29/2011 4:51 PM INTERNATIONAL STUDENT COUNSELOR Pediatric Tripe Finisher Intake/History Pediatric Tripe Finisher Intake/History Entered On: 07/29/2011 16:53 INTERNATIONAL STUDENT COUNSELOR Performed On: 07/29/2011 16:51 INTERNATIONAL STUDENT COUNSELOR by ERWIN COLON LPN Intake Chief Complaint [...] 74.50kg ERWIN COLON LPN - 07/29/2011 16:51 INTERNATIONAL STUDENT COUNSELOR Subjective Pain Symptoms : Yes ERWIN COLON LPN - 07/29/2011 16:51 INTERNATIONAL STUDENT COUNSELOR Pain Pain Assessment Grid Pain 1 Location : Ear Laterality : Left Intensity : 3 ERWIN COLON LPN - 07/29/2011 16:51 INTERNATIONAL STUDENT COUNSELOR Dependent Habits Tobacco Use/Currently Using : No Smoking Status : Never smoker ERWIN COLON LPN - 07/29/2011 16:51 INTERNATIONAL STUDENT COUNSELOR Caffeine Use Grid Caffeine Use : Current Type : Soft drinks Frequency : Daily ERWIN COLON LPN - 07/29/2011 16:51 INTERNATIONAL STUDENT COUNSELOR Recreational Drug Use Grid Drug Use : None ERWIN COLON LPN - 07/29/2011 16:51 INTERNATIONAL STUDENT COUNSELOR Allergy Allergies (Active) Suprax Estimated Onset Date: Unspecified ; Created By: JENNIFER ARCHIBALD LPN; Reaction Status: Active ; Category: Drug ; Substance: Suprax ; Type: Allergy ; Updated By: JENNIFER ARCHIBALD LPN; Reviewed Date: 10/23/2010 9:07 INTERNATIONAL STUDENT COUNSELOR Source: [facility] [employer] Document Id: [id number] INTERNATIONAL STUDENT COUNSELOR!30 documented in this encounter Plan of Treatment Not on filedocumented as of this encounter Visit Diagnoses Not on filedocumented in this encounter
--- OUTSIDE RECORDS SUMMARY | 2022-07-20 10:56 | XMS_ITS | Encounter Summary ---
:1995 Author Organization [facility] Address [address] [place] [address] Care Team Providers Name Role Phone Unavailable [...] How often do you attend moravian or buddhist Never 10/23/2020 services? 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
--- OUTSIDE RECORDS SUMMARY | 2022-07-20 10:57 | XMS_ITS | Encounter Summary ---
:1995 Author Organization [facility] Address [address] [place] [address] Care Team Providers Name Role Phone Unavailable [...] How often do you attend scientologist or alevism Never 10/23/2020 services? 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 documented as of this encounter Miscellaneous Notes Miscellaneous - Conversion, Historical Provider Ser - 11/08/2003 12:00 AM CLOTH CARRIER [id number] Addended by: CARLOS SANCHEZ on: 12/23/2003,4:02 PM Comment: PERTINENT INFORMATION ABSTRACTED INTO E NCOUNTER DATED 12-23-03, RECORDS FILED INTO PATIENT'S CHARTModules accepted: Progress NotesRECORDS RCVD FROM [facility] CN[facility] SENT TO DR MOREAU 11-08-03 Source: [facility] RWHXTRANSXSYS Document Id: [id number] documented in this encounter Plan of Treatment Not on filedocumented as of this encounter Visit Diagnoses Not on filedocumented in this encounter
--- OUTSIDE RECORDS SUMMARY | 2022-07-20 10:57 | XMS_ITS | Encounter Summary ---
:1995 Author Organization [facility] Address [address] [place] [address] Care Team Providers Name Role Phone Unavailable [...] How often do you attend yazidism or sabianist Never 10/23/2020 services? 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
--- OUTSIDE RECORDS SUMMARY | 2022-07-20 10:57 | XMS_ITS | Encounter Summary ---
:1995 Author Organization [facility] Address [address] [place] [address] Care Team Providers Name Role Phone Unavailable Primary Care Provider Unavailable Encounter Details Date Type Department Care Team Description 12/05/2003 Hospital Encounter [facility] INTERNMED Rick Downey M.D. [address] [place] [address] (Wo rk) Social History Tobacco [...] How often do you attend anglican or yazidi Never 10/23/2020 services? 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 Paras Galvan from [facility] for evaluation of chronic nasal congestion associated with recent episodes of wheezing and difficulty breathing. Mother states that about one month ago Carly had the gradual onset of short ness of breath and difficulty breathing that became quite severe and resulted in her going to the [facility] room in [place]. In the ER she was given two [...] 12/10/2003 CC : Dr. Paras Galvan Source: [facility] RWHXTRANSXSYS Document Id: [id number] documented in this encounter Miscellaneous Notes Miscellaneous - Conversion, Historical Provider Ser - 12/05/2003 5:30 PM CDT [id number] December 05, 2003 Paras Galvan M.D. [address] [address] Dear Paras: I had the opportunity to [...] questions. Sincerely, Tang Downey M.D. RAND/kiran [facility]: [facility] Document Id: [id number] documented in this encounter Plan of Treatment Not on filedocumented as of this encounter Visit Diagnoses Not on filedocumented in this encounter
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
[2022-07-21 08:27] LABS: Strep B DNA Probe NEGATIVE (Negative)
[2022-07-22 09:08] LABS: Strep B Pen/Amox Allergy No
== END 2022-07-20 10:38 | disposition home or self-care (01) ==
LOC: NFLDREF 10:38
PROVIDERS: Visit Provider Obstetrics & Gynecology
DX: Z34.93 Encounter for supervision of normal pregnancy, unspecified, third trimester (principal); Z3A.35 35 weeks gestation of pregnancy
CPT/HCPCS: 87081; 87653

== ENCOUNTER 2022-08-03 09:00 | Outpatient (CLI) | payer BC, OTHER, SELFPAY ==
--- NOTE | 2022-08-03 09:15 | US_ITS ---
Patient: DHIRAJ MONTES Facility:?[facility] RIS Patient ID:?[id number] Site Patient ID:?[id number]. Site :?1995 Study:?US-OB Pelvis-08/03/2022 1:22:21 PM Ordering Physician:?Yousuf Ramires Final Report: INDICATION: Third trimester scan, evaluate growth. COMPARISON: 07/06/2022 TECHNIQUE: Real time bruner scale imaging of the fetus was performed. FINDINGS: Sonographic imaging demonstrates a single living intrauterine gestation. Fetus demonstrates a regular cardiac rate of 154 beats per minute. Fetus has a vertex position. The placenta lies posteriorly. Amniotic fluid volume appears normal and there is a single deepest vertical pocket: 7.0 cm. The estimated weight is 3424gm which lies at the 76th %. On the prior OB ultrasound exam dated 07/06/2022 the estimated weight was at the 55th%. BPD 77th percentile. HC 21st percentile. AC 88th percentile. FL 61st percentile. The HC/AC ratio measures 0.95 range (0.90-1.05). IMPRESSION: Sonographic gestational age 37 weeks 6 days and sonographic due date 08/18/2022. Good correlation with dates. Normal interval growth. Estimated weight 76th percentile. Abdominal circumference 88th percentile. Dictated by Dom Sethi MD @ 08/04/2022 10:10:14 AM Signed by:?Dom Sethi MD @08/04/2022 10:10:14 AM (Electronic Signature)
== END 2022-08-03 09:01 | disposition home or self-care (01) ==
LOC: US 09:01
PROVIDERS: Visit Provider Obstetrics & Gynecology
DX: Z34.93 Encounter for supervision of normal pregnancy, unspecified, third trimester (principal); Z3A.37 37 weeks gestation of pregnancy
CPT/HCPCS: 76816; 76819

== ENCOUNTER 2022-08-13 14:48 | Inpatient (IN) | payer BC, OTHER, SELFPAY ==
[2022-08-13] VITALS (12 sets, daily range): BP systolic 110–140; BP diastolic 56–89; PULSE 70–81; RESP 16; TEMP 36.6–36.8; O2SAT 96–97; BMI 47.4
[2022-08-13] MEDS: OXYTOCIN 10 UNIT/ML INJ IM (15:26)
[2022-08-13 15:40] LABS: SARS PCR* Negative SARS-CoV-2 (Negative)
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
--- NOTE | 2022-08-13 15:51 | P.OBPRC_ITS ---
Procedure Delivery date: 08/13/22 Procedure Done: Global Intrapartal Events: None Delivery monitor: external FHT and external uterine Route of delivery: Laceration description: None Estimated blood loss (mL): 100 Anesthesia type: None Disposition: floor Complications: None. Narrative: The patient is a 27 year-old admitted on 08/13/2022 at 39 Weeks, 0 Days gestation for spontaneous onset of labor.? Cervical exam on admission was 8 cm dilated with membranes ruptured with thin meconium-stained fluid in vertex presentation.? Contractions were every 3 minutes.? heart rate demonstrated baseline 145 bpm with moderate variability, + accelerations, - decelerations; a category 1 tracing.? AROM occurred at 1428 with thin meconium-stained fluid. ? Labor Analgesia:? None ? Pitocin:? No ? Labor onset:? 0900 ? Complete:? 1503 ? Pushing:? 1503 ? At [address] a viable female delivered in vertex OA presentation over intact perineum via spontaneous vaginal delivery with mother in hands/knees position.? Nose and mouth were bulb suctioned. The was passed through the mother's legs and put skin to skin.? Cord was clamped and cut after a 30-60 second delay.? weight pending.? 8 at 1 minute and 8 at 5 minutes.? Shoulder dystocia: No.? Nuchal cord: No. ? Placenta delivered spontaneously and complete at 1525 with a 3 vessel cord. ? Mother and were stable after delivery. ? Lacerations:? None. ? Blood loss: 100 mL. Blood loss measurement type: QBL ? Sponge and needles counts are correct. [place] Infant Gender: Female presentation: vertex Placental Delivery Description: Spontaneous Cord Description: 3 Vessels
[2022-08-13 17:29] LABS: Basophils Percent Auto 0.1 % (0.0-3.0); Eosinophils Percent Auto 0.2 % (0.0-7.0); Hematocrit 38.4 % (33.0-51.0); Hemoglobin* 13.2 gm/dL (12.0-16.0); Immature Granulocytes Pct Auto 0.9 %; Lymphocytes Percent Auto 7.1 % (20-44); Mean Corpuscular HGB Conc 34 gm/dL (32-36); Mean Corpuscular Hemoglobin 31 pg (26-34); Mean Corpuscular Volume 89 fL (80-100); Monocytes Percent Auto 3.1 % (0.0-11.0); Neutrophils Percent Auto 88.6 % (42.0-72.0); Platelet Count* 231 K/uL (140-440); RDW Coefficient of Variation % 12.7 % (11.5-15.5); Red Blood Count 4.32 m/uL (4.00-5.20); White Blood Count* 17.63 K/uL (4.50-11.00)
[2022-08-13 17:33] LABS: Slide Review Reflex No
[2022-08-13 17:47] LABS: Alanine Aminotransferase* 19 U/L (4-35); Aspartate Amino Transferase* 21 U/L (12-35); Blood Urea Nitrogen* 12 mg/dL (5-24); Creatinine* 0.6 mg/dL (0.5-1.5); Est. Creatinine Clearance* 126.73; Estimated Glomerular Filt Rate 126 ml/min
[2022-08-13] MEDS: ACETAMINOPHEN 500 MG TABLET 1000 MG PO (18:34)
[2022-08-14 05:50] VITALS: BP 98/63; PULSE 75; RESP 16; TEMP 36.7; O2SAT 96
[2022-08-14 06:51] LABS: Hemoglobin* 11.9 gm/dL (12.0-16.0)
[2022-08-14] MEDS: DOCUSATE SODIUM 100 MG CAPSULE PO (08:36)
[2022-08-14 08:50] VITALS: BP 124/80; PULSE 76; RESP 16; TEMP 36.7; O2SAT 96
--- NOTE | 2022-08-14 09:55 | P.DS_ITS ---
DS: Providers Provider Date Seen: 08/14/22 Date of admission: 08/13/22 14:48 Primary care physician: Roseline Perez MD Admitting Clinician: Felisha Gandara MD Attending Physician on discharge: Keyla To MD Date of Discharge: 08/14/22 DS: Diagnosis Discharge Diagnosis (1) Spontaneous vaginal delivery: Status: Acute (2) Rubella non-immune status, antepartum: Status: Acute (3) History of pre-eclampsia: Status: Acute (4) Depression: Status: Acute (5) Asthma: Status: Acute Exam Narrative: Exam Narrative: VITAL SIGNS: As noted above. GENERAL APPEARANCE: Alert, cooperative female in no acute distress. MOOD & AFFECT: Normal. ABDOMEN: Soft, non-distended and nontender. Well contracted uterus. : Normal lochia. EXTREMITIES: Bilateral pitting edema +1. Well perfused. Nontender. Const: Vital Signs, click to edit/add: Vital Signs - 24 hr 08/13/22 15:04 08/13/22 15:27 08/13/22 15:42 Temperature Pulse Rate 80 78 76 Pulse Rate [Pulse Oximeter] Respiratory Rate Blood Pressure 140/69 H 127/83 120/89 Blood Pressure [Ri ght Arm] Pulse Oximetry Oxygen Delivery Me thod 08/13/22 15:57 08/13/22 16:12 08/13/22 16:27 Temperature Pulse Rate 70 78 70 Pulse Rate [Pulse Oximeter] Respiratory Rate Blood Pressure 126/83 120/70 110/56 L Blood Pressure [Ri ght Arm] Pulse Oximetry Oxygen Delivery Me thod 08/13/22 16:42 08/13/22 16:57 08/13/22 17:12 Temperature Pulse Rate 74 78 77 Pulse Rate [Pulse Oximeter] Respiratory Rate Blood Pressure 117/62 120/60 128/88 Blood Pressure [Ri ght Arm] Pulse Oximetry Oxygen Delivery Me thod 08/13/22 17:27 08/13/22 19:32 08/13/22 23:36 Temperature 97.9 F 98.2 F Pulse Rate 73 Pulse Rate [Pulse Oximeter] 78 81 Respiratory Rate 16 16 Blood Pressure 119/59 L Blood Pressure [Ri ght Arm] 119/76 119/81 Pulse Oximetry 96 97 Oxygen Delivery Me thod Room Air Room Air 08/14/22 05:50 12/31/22 08:50 Temperature 98.0 F 98.1 F Pulse Rate Pulse Rate [Pulse Oximeter] 75 76 Respiratory Rate 16 16 Blood Pressure Blood Pressure [Ri ght Arm] 98/63 124/80 Pulse Oximetry 96 96 Oxygen Delivery Me thod Room Air Room Air OB - DS: Summary Hospital Course Hospital Course: The patient is a 27 year old G 2 P 2001 who was admitted at 391/7 weeks gestation that was admitted to the Center on 08/13/22 in labor for delivery. She had an uncomplicated vaginal delivery. She delivered a viable female infant. She is breast feeding. the patient has done well. Only 1 elevated blood pressure, otherwise all blood pressures within normal limits. No signs of HR CLERK irritability such as headaches, visual changes or pain in the upper abdomen. hemoglobin normal. Unfortunately, baby has been eating high-flow oxygen and will be transferred to a higher level of care. Mom and dad would like to be transferred with baby. Peripartum Data Infant delivery method: Vaginal Laceration description: None Episiotomy description: None Gender: Female Infant Discharge Plan: Transferred to higher level of care Status at Discharge Functional status at discharge: independent ambulation Overall status at discharge: patient is progressing back to baseline Time Spent with Patient Time attestation: Total time spent providing and/or coordinating discharge services: Time spent: Less than 30 minutes Discharge Plan Discharge Disposition: Home, Self-Care Date of Admission: 08/13/22 14:48 Attending Provider on Discharge: Keyla To Primary Care Provider: Roseline Perez Condition: Stable Anticipated Discharge Date/Time: 08/14/22 09:59 Discharge Medications: New acetaminophen 500 mg Tablet 1,000 mg PO Q6H PRN (Reason: pain/fever) Qty: 30 0RF docusate sodium 100 mg Capsule 100 mg PO DAILY Qty: 30 0RF ibuprofen 600 mg Tablet 600 mg PO Q6H PRNQty: 30 0RF Continued escitalopram oxalate 20 mg tablet 20 mg PO DAILY albuterol sulfate 90 mcg/actuation HFA aerosol inhaler 2 inhalation PRN fluticasone propionate 220 mcg/actuation HFA aerosol inhaler 2 inhalation BID montelukast 10 mg tablet 10 mg PO .Bedtime buspirone 5 mg tablet 5 mg PO TID with DHA-Folic Acid 400-32.5 mcg-mg tablet,chewable PO omeprazole 20 mg capsule,delayed release(DR/EC) 20 mg PO QDAY 42 Days Qty: 42 2RF Discharge Orders: Discharge Order (Routine); Ordered 08/14/22 Ordered By: Keyla To Patient Education: OB Vaginal/Breast Feeding Activity Level: Activity as Tolerated and Other Activity Detail: Nothing vaginally for 6 weeks, because of history of preeclampsia continue to monitor blood pressures at home at least every other day notify clinic if blood pressures are more than 150 over 100s, or if there is any associated persistent headaches, visual changes, pain in the upper abdomen. Discharge Diet: Regular Follow Up Appointments: Roseline Perez MD [Primary Care Provider] - Forms: [employer] Info Instructions Discharge Comments: Follow-up in clinic for a 2 week visit were we discussed mood and , follow-up in clinic for a 6 week visit.
[2022-08-14] MEDS: IBUPROFEN 600 MG TABLET PO (12:58)
== END 2022-08-14 13:30 | disposition home or self-care (01) | DRG 560 ==
LOC: OB OUT 08-18 06:44
PROVIDERS: Admitting Provider Obstetrics & Gynecology; PCP Obstetrics & Gynecology; Visit Provider Obstetrics & Gynecology
DX: O80 Encounter for full-term uncomplicated delivery (principal); Z28.39 Other underimmunization status; Z87.59 Personal history of other complications of pregnancy, childbirth and the puerperium; F32.A Depression, unspecified; J45.909 Unspecified asthma, uncomplicated; Z3A.39 39 weeks gestation of pregnancy; Z37.0 Single live birth
CPT/HCPCS: 36415; 82565; 84450; 84460; 84520; 85018; 85025; 86850; 86900; 86901; 87635; 99213; A9270; J2590

== ENCOUNTER 2022-09-01 10:12 | Outpatient (CLI) | payer BC, OTHER, SELFPAY ==
--- NOTE | 2022-09-01 15:18 | P.LACCB_ITS ---
Consult Note - Mom Date of Visit Date of visit: 09/01/22 infrastructure consultant: Hailey Chino Visit Code: Visit Patient's Information Phone number: [phone] : 2 Para: 2 Allergies Cultivated oat pollen Allergy (Intermediate, Uncoded 08/31/22 13:39) Congestion, sneezing Dust Allergy (Intermediate, Uncoded 08/31/22 13:39) Molds & Smuts Allergy (Intermediate, Uncoded 08/31/22 13:39) Congestion, sneezing Mother's Medical History: Medical History (Updated 08/31/22 @ 14:44 by Li Segura CNP) BMI 40.0-44.9, adult Depression History of pre-eclampsia Delivery Information Delivery type: Vaginal Weeks Gestation: 39.0 Gestational Age: AGA Weight: 3.286 kg Discharge Weight: 3.31 kg Baby's Information Baby's Age at Visit: 18 days Baby's Provider or Clinic: Dr. Ta Jaundice: No Reason for Consult Reason for Consult: difficulty latching Past Experience Past Experience: Yes (nursed her older child (now 8) for about four months) Current Frequency of Day Feedings: every 2 - 3 hours Frequency of Night Feedings: every 3 - 4 hours Both Breasts: Yes (mom offers) Suck: fairly strong Latch: fairly wide Length of Time: baby will only nurse for a few minutes, then fall asleep or start crying Goals: would really like to be successful in nursing this baby Pumping Pumping: Yes (mom pumps with every feeding) Quantity Pumped: 60 - 80 ml total each time Supplementing EMB Supplement: Yes (baby takes 60 ml EBM after every nursing session) Formula Supplement: No Baby Elimination Number of Wet Diapers a Day: every feeding Number of BM a Day: 4 - 5; yellow and seedy Breast/Nipple Condition Breast Information: WNL Maternal Nipple Condition - Left: Common Nipple Maternal Nipple Condition - Right: Common Nipple Onsite Pre-Feed weight: 3.286 kg Post-Feed weight: 3.31 kg Milk Transferred (mL): 24 Pre-Nursing Left Nipple: Within Normal Limits Pre-Nursing Right Nipple: Within Normal Limits Post-Nursing Left Nipple: Within Normal Limits Post-Nursing Right Nipple: Within Normal Limits Assessments/Interventions Assessments/Interventions: Met with mom and this now 3 week old ex- term AGA baby for consult.? Mom reports baby was transferred to [facility] shortly after d/t meconium aspiration.? Baby was in the NICU for about a week and mom did not get a chance to start nursing while she was there.? She reported that once baby was able to eat she was given EBM/formula by paced feeding.? Mom has been attempting to nurse 2 - 3 times/day, said baby will nurse for a few minutes but then fall asleep or get fussy so mom stops and gives her a bottle.? Baby eats every 2 - 4 hours and takes about 1.5 oz every time.? Mom is pumping with a Zomee at every feeding and gets about 90 - 120 ml total each time.? Mom is a little worried about her supply, stating it fluctuates quite a bit. Breasts WNL- symmetrical with rounded lower quadrants, intramammary distance is < 1.5 inches.? Nipples are everted and don't flatten or retract on compression; no damage noted. Baby has gained 70 grams/day since her last visit on 08/30/22.? Per mom she seems to prefer turning her head to the right but has equal ROM when moving her extremities.? Baby's palate is a little high but both her upper and lower frenulum appear to be WNL.? She has a strong suck on a finger and raises the tongue fairly high when crying.? The tongue also extends past the gum line and has good lateral movement.? Mom latched baby to the left side and she had a wide latch, baby was nutritively suckling and mom was comfortable.? This only lasted a few minutes however before baby began to get frustrated and came off the breast.? We tried again a few more times using breast compression but she would still only suckle intermittently before becoming more and more upset.? She was switched to the right side with no improvement.? Before trying a nipple shield or SNS baby was weighted and had transferred 24 ml.? We didn't have much success with either the nipple shield or the SNS system so mom finished the feeding with a little EBM.? 1. Continue to practice 2 - 3 times/day.? May find it helpful to use the nipple shield or SNS and to keep the attempts to no longer than about 20 minutes (or less if she or baby are really frustrated). 2. Continue to pump with every feeding if possible. We reviewed she may want to try a smaller flange size and a handout was given.? We also reviewed she's making what baby needs or a little more and that supply does ebb and flow throughout a 24 hour time span.? Suggested she stay well hydrated, do lots of skin to skin; could try coconut water or non alcoholic beer. 3. Continue supplementing baby with 2 - 3 oz every 2 - 3 hours.? She may want a little less if she's nursed first and that's ok.? Also ok to let her go 4 - 5 hours overnight so mom can get more sleep. 4. Gave handout on local therapists for body work for mom and baby. 5. Will f/u in on 09/10 to see how nursing with the nipple shield is going/how mom is feeling. Meds Home Medications and Allergies Home Medications Medication Instructions Recorded Confirmed Type albuterol sulfate 90 mcg/actuation 2 inhalation PRN 02/16/22 08/31/22 History aerosol inhaler escitalopram oxalate 20 mg tablet 20 mg PO DAILY 02/16/22 08/31/22 History fluticasone propionate 220 2 inhalation BID 02/16/22 08/31/22 History mcg/actuation HFA aerosol inhaler montelukast 10 mg tablet 10 mg PO .Bedtime 02/16/22 08/31/22 History 103-folic acid 400 tab PO 03/08/22 08/31/22 History mcg-omeg3 32.5 mg-dha-fish oil chew tablet ( with DHA and Folic Acid) Allergies Allergy/AdvReac Type Severity Reaction Status Date / Time Cultivated oat pollen Allergy Intermediate Congestion, Uncoded 08/31/22 13:39 sneezing Dust Allergy Intermediate Uncoded 08/31/22 13:39 Molds & Smuts Allergy Intermediate Congestion, Uncoded 08/31/22 13:39 sneezing
== END 2022-09-01 10:13 | disposition home or self-care (01) ==
LOC: OB LAC 10:14
PROVIDERS: Visit Provider Obstetrics & Gynecology
DX: Z39.1 Encounter for care and examination of lactating mother (principal)
CPT/HCPCS: 99211